=== PATIENT | female | born 1935 | race Caucasian/White ===

== ENCOUNTER → 2017-09-07 | Outpatient (CLI) | payer BC ==
[~2017-09-07] MED LIST: ALEN70TA4 PO; ALUMSUS2 PO; ASPI81TA28 PO; BTP80 PO; CALC-20 PO; CLC/300 PO; CLR10 PO; CMD/25 PO; CRS10 PO; CZR50 PO; DIPH25CA5 PO; EPP3/2 IM; FERR325T5 PO; FURO-85 PO; MAGN400T6 PO; METO25TA56 PO; MULTCHW PO; NSNN50 NAE; NTRGSL/4 UT; OMEP20CA9 PO; SENNTAB23 PO; SPIR25TA89 PO; SPR25 PO
--- NOTE | 2017-09-07 15:30 | MAMMOGRAPHY REPORT ---
BILATERAL DIGITAL SCREENING MAMMOGRAM WITH CAD: 09/07/2017 CLINICAL HISTORY: Routine screening. Patient has no complaints. TECHNIQUE: Current study was also evaluated with a Computer Aided Detection (CAD) system. Bilateral CC and MLO views were obtained. COMPARISON: Comparison is made to exams dated: 09/06/2016 mammogram, 09/03/2015 mammogram, 4 mammogram, 07/24/2013 mammogram, 07/23/2012 mammogram, and 07/21/2011 mammogram - [facility]. BREAST COMPOSITION: There are scattered areas of fibroglandular density in both breasts. FINDINGS: No suspicious masses, calcifications, or areas of architectural distortion are noted in ei ther breast. There has been no significant interval change compared to prior exams. Scattered bilater al benign-appearing calcifications are not significantly changed. A linear scar denotes a scar on th e right medial breast. IMPRESSION: ACR BI-RADS CATEGORY 2: BENIGN There is no mammographic evidence of malignancy. A 1 year screening mammogram is recommended. The pa tient will receive written notification of the results. Approximately 10% of breast cancers are not detected with mammography. A negative mammographic report should not delay biopsy if a clinically suggestive mass is present. Veronika Omalley M.D. /:09/07/2017 10:28:17 Iron Handler: [facility])(Aimee), [facility] letter sent: Normal 1/2 BI-RADS Code: ACR BI-RADS Category 2: Benign
== END | disposition home or self-care (01) ==
LOC: C.MAMM 10:04
PROVIDERS: ATTEND Internal Medicine
DX: Z12.31 Encounter for screening mammogram for malignant neoplasm of breast (principal)

== ENCOUNTER → 2017-12-12 | Outpatient (CLI) | payer BC ==
--- NOTE | 2017-12-13 07:49 | PAP/PSG TECHNICIAN REPORT ---
[facility] Statement Clerk Polysomnogram Report Study name: None Report date: 12/13/2017 Study date: 12/12/2017 Referring Physician: Dr. Belkis Acuna M.D. Name: ANA ROSARICKIDean SARAH SPEARS Interpreting Physician: Toño Medellin M.D. Date of : 1935 Statement Clerk: Nina Winkler PSGT. Sex: Female Age: 82 StudyType: PSG Weight: 188 lbs Height: 82 years, Height 5' 0" Neck Circum:13 inches BMI: 36.71 Medications: Lasix 40 mg, Lopressor 100 mg, Cozaar 25 mg, Mycolog, Betapace 80 mg, Nasonex 50 mcg, Crestor 10 mg, Clindamycin HCI 300 mg, Coumadin 2.5 mg, Atrovent, Claritin 10 mg, Ativan 0.5 mg, Nitrostat 0.4 mg, Epipen, Ferrous Sulfate, Mag-Oxide 400 mg, Caltrate 600+G174-473 mg, Stool softner, Benadryl 25 mg, Aspirin 81 mg, Centrum Silver. Patient History 82-year-old female presents to sleep lab for a split night study. She states that her bedtime is 12-1:00 am, wakes 7-8:00 am.She states that she is still grieving over the loss of her and that she had gotten into poor sleep hygiene habits. Now that she has learned to shut the television off as well as the electronics she is sleeping better.ESS= 6, Neck = 13 inches. Parameters Monitored NPSG: E1-M2, E2-M1, Fp1-M2, Fp2-M1, F3-M2, F4-M2, F4-M1, C3-M2, C4-M2, C4-M1, O1-M2, O2-M2, O2-M1, T3-M2, T4-M1, P3-M2, P4-M1, CHIN1, CHIN2, HR, EKG, Legs, PFLOW, SNOR, FLOW, CFLOW, Tidal Volume, THOR, ABDO, SpO2, PLTH, CPRESS, ETCO2 Wave, ETCO2, pH Sleep Architecture Sleep Stages Time at Lights Off 9:55:02 PM STAGES Time (min.) TST (%) Time at Lights On 5:40:32 AM Wake 206.0 -- Total Recording Time (TRT) 467.00 min. N1 7.5 3 Total Sleep Period (TSP) 423.0 min. N2 208.0 80 Total Sleep Time (TST) 259.0min. N3 0.0 0 Awake Time 208.0 min. REM 43.5 17 Wake after Sleep Onset 171.0 min. Sleep Efficiency (SE) 56 % Sleep Onset Latency ([place]) 35.5 min. Number of Stage 1 Shifts None Awakenings 11 Stage Changes 32 Number of REM periods 3 REM 43.5 17 REM Latency 83.0 min. NREM 215.5 83 Body Position Analysis Supine Right Left Side Prone Vertical Total Sleep Time (min.) 63.4 48.9 175.1 224.00 0.0 0.0 Total Sleep Time (%) 14% 19% 68% 86 0% N/A% Total Sleep Time REM (min.) 32.0 0.0 11.5 None 0.0 0.0 Total Sleep Time NREM (min.) 3.0 48.9 163.6 None 0.0 0.0 Intermittent Wake (min.) 28.4 42.5 135.1 None 0.0 0.0 Total Sleep Period (%) 10% None None None None None Arousals Myoclonus (PLM) * Events Count Index Events Count Index Spontaneous 41 9 Events Awake (PLMW) 5 1.5 Respiratory 1 0.2 Events Asleep w/ Arousal (PLMA) 19 4.4 PLM 19 4 Events Asleep w/o Arousal (PLMS) 99 22.9 Snoring 2 0 Total Asleep 118 27.3 Total 63 15 Total 123 16 Respiratory Analysis * CA OA MA CH H RERA Total Count 0 0 1 0 45 0 46 Index 0.0 0.0 0.2 0 10.4 0 10.7 Mean Duration 0.0 0.0 17.8 0.00 20.2 0.0 20.1 Longest Duration 0.0 0.0 17.8 0.00 17.8 0.0 41.5 Respiratory Event Summary Total Supine ~Supine Right Left Prone REM NREM Apneas Count 1 0 1 0 1 N/A 0 1 Index 0.2 0 0 0.0 0.3 N/A 0 0 Hypopneas (4% Desat) Count 45 22 23 2 21 N/A 31 14 Index 10.4 37.7 6 2.5 7.2 N/A 42.8 3.9 Apneas & All Hypopneas Count 46 22 24 2 22 N/A 31 15 Index 10.7 38 6 2 8 N/A 42.8 4.2 Respiratory Events (Public Health Advisor+All Hyp+RERA) Count 46 22 24 2 22 N/A 31 15 Index 10.7 38 6 2.5 7.5 N/A 42.8 4.2 Respiratory Related Arousal Count 1 22 1 0 1 N/A 0 1 Index 0.2 0 0 0 0 N/A 0 0 Snoring Analysis Supine Right Left Prone REM NREM Total Snore duration 1.7 min Snores count 9 4 17 N/A 10 20 30 Snore mean duration 3.5 Sec Snores index 15 5 6 N/A 13.8 5.6 6.9 TST with snoring (%) 0.7% Desaturation Event Summary: Minimum %SpO2 Event Count Mean/Min/Max Duration(sec.) Desaturation Index % Time In Bed > 90 40 31.6 / 9.0 / 57.5 5.7 92.6 86 - 90 10 17.4 / 6.8 / 33.0 35.9 3.7 81 - 85 1 6.8 / 6.8 / 6.8 4.7 2.8 76 - 80 0 N/A 0.0 0.9 71 - 75 0 N/A 0.0 0.0 66 - 70 0 N/A 0.0 0.0 61 - 65 0 N/A 0.0 0.0 56 - 60 0 N/A 0.0 0.0 51 - 55 0 N/A 0.0 0.0 < 50 0 N/A 0.0 0.0 Total REM NREM Awake <50% 0.0 min. 0.0 min. 0.0 min. 0.0 min. 51 - 60% 0.0 min. 0.0 min. 0.0 min. 0.0 min. 61 - 70% 0.0 min. 0.0 min. 0.0 min. 0.0 min. 71 - 80% 4.1 min. 3.9 min. 0.0 min. 0.2 min. 81 - 90% 29.4 min. 19.6 min. 6.0 min. 3.9 min. 91 - 100% 419.5 min. 20.0 min. 209.5 min. 190.0 min. Average 93 89 94 94 Minimum SpO2 75 75 82 80 Desaturation Event Index 6.1 45.5 3.9 0.0 # Desat. Events below 89% 33 30 3 0 Time(%) with Saturation below 89% 5.2 4.5 0.4 0.3 Time(min.) with Saturation below 89% 23.6 20.5 1.7 1.3 Time (mins) REM (mins) NREM (mins) % of TST SpO2 Below 90% 43 32 N11 9.4 SpO2 Below 88% 18 0 0 8 Heart Rate Analysis Min (bpm) Max (bpm) Average (bpm) Awake 59 127 63 NREM 57 83 61 REM 58 73 61 Overall 57 83 61 Supplemental O2 Values Minimum O2 level: None Value Start Time End Time Statement Clerk Comments PSG Study Mrs. Cruz slept in the right, left, supine and prone positions. No cardiac arrhythmia or PLM's noted. No bruxism noted. Snoring was noted and scored as a 1 on a scale of 1 through 5. (0=no snoring, 5=snoring loud enough to be heard through a closed door or down the [address] way) awoke to use the restroom one time during the night. stated, I did not sleep as well as I do when I am in my own bed. The final report will be interpreted and signed by a sleep physician. The completed physician report will then be placed in the patient medical record Patient woke and said she needed to get up that her legs were "restless", she walked and went to restroom stretched her legs and went back to bed. Patient couldn't be split. Therapy (cm H2O) 0 TIB (min.) 465.0 TST (min.) 259.0 Sleep Onset (min.) 35.5 REM Onset From Sleep (min.) 83.0 Sleep Efficiency % 56 Wakefulness (%) 44 Wakefulness (min.) 208.0 NREM 1 (%) 3 NREM 1 (min.) 7.5 NREM 2 (%) 80 NREM 2 (min.) 208.0 NREM 3 (%) 0 NREM 3 (min.) 0.0 REM (%) 17 REM (min.) 43.5 # Arousals 63 Arousal Index 15 # Snore 30 Snore Index 6.9 AHI 10.7 AHI Supine 38 AHI Non-Supine 6 NREM AHI 4.2 REM AHI 42.8 RDI 10.7 # Obstructive Apnea 0 # Central Apnea 0 # Mixed Apnea 1 # Hypopneas 45 RERAs 0 Total Respiratory Events 47 Time Below SpO2 89% (min.) 22.3 Mean NREM SpO2 (%) 94 Mean REM SpO2 (%) 89 Mean Sleep SpO2 (%) 93 Min NREM SpO2 (%) 82 Min REM SpO2 (%) 75 Position Supine (min.) 63.4 Position Non-supine (min.) 224.0 LM Index Sleep 27.3 LM Index NREM 30.3 LM Index REM 12.4 Mean Heart Rate (bpm) 61 Min Heart Rate (bpm) 57
--- NOTE | 2017-12-14 08:05 | POLYSOMNOGRAPH REPORT ---
CLINICAL DATA: An 82-year-old female with a BMI of [address] Acuna. The patient states she goes to bed between 12:00 a.m. and 1:00 a.m. awakes at 7:00 to 8:00 a.m. She is still grieving over the loss of her and has had poor sleep hygiene habits. She is sleeping better since she is now turning off the television and the electronics at night. She is referred for a sleep study. SLEEP ARCHITECTURE: Total sleep period was 423 minutes. Total sleep time was 259 minutes divided between 215.5 minutes of non-REM sleep and 43.5 minutes of REM sleep. Sleep onset latency was delayed at 35.5 minutes. REM latency was 83 minutes. Sleep efficiency was reduced to 56%. Wake after sleep onset was elevated at 171 minutes. Sleep consisted of stage N1 3%, stage N2 80% and REM 17%. AROUSAL DATA: 63 arousals were recorded for an index of 15 per hour. 41 were spontaneous. 19 were due to PLMs. PLM DATA: Mildly elevated limb movements during sleep were noted. There were 118 limb movements during sleep noted for an index of 27.3 per hour with arousal index of 4.4 per hour. RESPIRATORY DATA: Mild sleep apnea was documented. The AHI was 10.7. There was 1 mixed apneic episode, 17.8 seconds in duration. There were 45 hypopneic episodes with a mean duration of 20.2 seconds. OXIMETRY DATA: Nocturnal hypoxemia was seen. Oxygen roz was 75%. Mean saturation was 92%. Time below 88% was 18 minutes. EKG: Heart rates ranged from 57-83 beats per minute. No arrhythmias were noted. MOLDING TECHNICIAN'S COMMENTS: The patient slept in the right, left, supine, and prone positions. Snoring was mild, rated 1 on a scale of 1 through 5. The health and safety technician noted that the patient awoke and had to get out of bed because her legs were restless. She walked, went to the restroom, stretched her legs and went back to bed. She did not achieve split night criteria soon enough to have this be a split night study. IMPRESSION: 1. Mild sleep apnea/hypopnea with an AHI of 10.7. 2. Mildly elevated limb movements during sleep consistent with periodic limb movement disorder. RECOMMENDATIONS: The patient may benefit from a repeat sleep study with CPAP, use of auto CPAP, or use of an oral appliance. Clinical correlation is needed. MTDD
== END | disposition home or self-care (01) ==
LOC: C.NEUR 20:00
PROVIDERS: ATTEND Internal Medicine
DX: G47.33 Obstructive sleep apnea (adult) (pediatric) (principal)

== ENCOUNTER 2021-02-12 20:59 | Observation (INO) ==
[2021-02-12 23:34] LABS: Basophils # (auto) 0.04 K/uL (0-0.2); Basophils % (auto) 0.5 %; Eosinophils # (auto) 0.06 K/uL (0-0.5); Eosinophils % (auto) 0.8 %; Hematocrit (blood only) 29.6 % (37-47); Hemoglobin 9.2 g/dL (12.0-16.0); Immature Granulocytes # (auto) 0.01 K/uL (0.00-0.02); Immature Granulocytes % (auto) 0.1 %; Lymphocytes # (auto) 0.83 K/uL (1.2-3.4); Lymphocytes % (auto) 10.9 %; Mean Corpuscular Hemoglobin 30.9 pg (25-34); Mean Corpuscular Hgb Conc 31.1 g/dL (32-36); Mean Corpuscular Volume 99.3 fL (80-100); Mean Platelet Volume 11.4 fL (7.4-10.4); Monocytes # (auto) 0.71 K/uL (0.11-0.59); Monocytes % (auto) 9.3 %; Neutrophils # (auto) 5.97 K/uL (1.4-6.5); Neutrophils % (auto) 78.4 %; Platelet Count 389 K/uL (130-400); RDW Coefficient of Variation 14.4 % (11.5-14.5); RDW Standard Deviation 51.8 fL (36.4-46.3); Red Blood Count 2.98 M/uL (4.2-5.4); White Blood Count 7.62 K/uL (4.8-10.8)
[2021-02-12 23:36] LABS: Appearance Urine Clear (Clear); Bacteria Urine Automated 2+ (Negative); Bilirubin Urine Negative (Negative); Blood Urine Negative (Negative); Cast Urine Automated 0 /lpf (0-5); Color Urine Yellow; Epithelial Cell Urine Auto 0-5 /lpf (0-5); Glucose Urine UA Negative (Negative); Ketones Urine Negative (Negative); Leukocyte Esterase Urine 2+ (Negative); Nitrite Urine Negative (Negative); Protein Urine Negative (Negative); RBC Urine Automated 0-4 /hpf (0-4); Specific Gravity Urine 1.009 (1.000-1.030); Urobilinogen Urine Negative (Negative)
[2021-02-12 23:52] LABS: Alanine Aminotransferase 27 U/L (12-78); Albumin Level 3.7 gm/dl (3.4-5.0); Aspartate Aminotransferase 24 U/L (15-37); BUN Creatinine Ratio 28.2 (10-20); Blood Urea Nitrogen 36 mg/dl (7-18); Calcium 9.4 mg/dl (8.5-10.1); Carbon Dioxide 31 mmol/L (21-32); Chloride 103 mmol/L (98-107); Creatinine Clr Calc Pharmacy 31.2 ml/min; Est GFR (African American) 44.9; Est GFR (Non-African American) 38.7; Glucose 109 mg/dl (70-99); Magnesium 2.2 mg/dl (1.8-2.4); Potassium 3.6 mmol/L (3.5-5.1); Sodium 142 mmol/L (136-145)
[2021-02-13 00:03] LABS: Albumin Globulin Ratio 0.8 (0.9-2); Alkaline Phosphatase 64 U/L (45-117); Bilirubin,Total 0.3 mg/dl (0.2-1); Creatine Kinase 124 U/L (26-192); Globulin 4.5 gm/dl (2.5-4.0); Total Protein 8.2 gm/dl (6.4-8.2); Troponin I < 0.015 ng/ml (0-0.045)
[2021-02-13 00:15] LABS: T4 Free Thyroxine 1.33 ng/dl (0.8-1.6)
[2021-02-13 00:38] LABS: Partial Thromboplastin Ratio 1.1; Partial Thromboplastin Time 29.4 Seconds (21.0-31.0)
[2021-02-13] MEDS ORDERED: CEFEPIME 2,000 MG/20 ML VIAL IV STA (00:53)
[2021-02-13 02:08] LABS: Influenza A virus by PCR Negative (Neg); Influenza B virus by PCR Negative (Neg); RSV by PCR Negative (Neg); SARS CoV2 RNA(COVID-19) InHosp NEGATIVE (Negative)
--- NOTE | 2021-02-13 02:48 | Emergency Department Note ---
General (ED) Blank Date of Service February 13, 2021 This patient comes in after having weakness. When I examined her, she is sitting upright in bed is well-appearing andshe has normal motor and sensation in the legs. Her urinalysis does suggest a UTI. She is anemic with a hemoglobin in the 9 range. She tells me that she has had issues with vaginal bleeding but has had none recently after they treated for UTI. She does feel weak and will be admitted for antibiotics and further treatment and evaluation.
--- NOTE | 2021-02-13 03:02 | Emergency Department Note ---
History of Present Illness General Chief complaint: Weakness Stated complaint: RESTLESS LEGS, WEAKNESS Time Seen by Provider: 02/12/21 23:08 History of Present Illness This 85-year-old presents to the ER complaining of increasing weakness with anemia Location: Generalized Quality: Weak Severity: Moderate Duration: Past week Timing: Started a week ago Context: Patient was concerned and came in Modifying factors: better with rest; worse with activity Patient denies chest pain, fever, chills, flulike illness, abdominal pain. She is tolerating p.o. fluids and food. She lives at home by herself. Home Medications Medication Instructions Recorded Confirmed Type Ca carb-D3-mag [id number] 1 tab PO BID 01/24/21 02/12/21 History [Caltrate + D3 Plus Minerals] aspirin [Aspir-81] 81 mg PO DAILY 01/24/21 02/12/21 History camphor-menthol [Biofreeze] 1 applic TOPICAL BID PRN 01/24/21 02/12/21 History cranberry fruit concentrate [Azo 250 mg PO TID PRN 01/24/21 02/12/21 History Cranberry] diphenhydramine HCl [Benadryl] 25 mg PO Q6H PRN 01/24/21 02/12/21 History docusate sodium [Colace] 300 mg PO DAILY 01/24/21 02/12/21 History epinephrine [EpiPen] 0.3 mg IM UD PRN 01/24/21 02/12/21 History ferrous sulfate [iron] 325 mg PO HS 01/24/21 02/12/21 History furosemide [Lasix] 80 mg PO 3XWK PRN 01/24/21 02/12/21 History furosemide [Lasix] 80 mg PO DAILY 01/24/21 02/12/21 History hydroxyurea 500 mg PO 3XWK 01/24/21 02/12/21 History loratadine 10 mg PO HS 01/24/21 02/12/21 History lorazepam 0.5 mg PO TID PRN 01/24/21 02/12/21 History losartan 25 mg PO DAILY 01/24/21 02/12/21 History magnesium oxide 400 mg PO DAILY 01/24/21 02/12/21 History metoprolol succinate 100 mg PO BID 01/24/21 02/12/21 History mometasone [Nasonex] 2 spray INTRANASAL DAILY 01/24/21 02/12/21 History cxwqydtrnhwr-azvsqhzg-lpqowy 1 tab PO DAILY 01/24/21 02/12/21 History [Centrum Silver] nitroglycerin 0.4 mg SUBLINGUAL UD PRN 01/24/21 02/12/21 History omeprazole 20 mg PO DAILY 01/24/21 02/12/21 History rosuvastatin [Crestor] 10 mg PO HS 01/24/21 02/12/21 History sotalol 80 mg PO BID 01/24/21 02/12/21 History spironolactone 12.5 mg PO DAILY 01/24/21 02/12/21 History warfarin 1.25 - 2.5 mg PO UD 01/24/21 02/12/21 History hydroxyzine pamoate [Vistaril] 25 mg PO Q8H PRN 5 Days #15 cap 02/10/21 02/12/21 Rx methylprednisolone See Rx Instructions .ROUTE 02/10/21 02/12/21 Rx .COMPLEX #21 ea duloxetine 20 mg PO QPM 02/12/21 02/12/21 History Allergies Allergy/AdvReac Type Severity Reaction Status Date / Time iodine Allergy Intermediate itching Verified 02/12/21 23:15 amiodarone Allergy Mild UNSURE Verified 02/12/21 23:15 etodolac Allergy Mild Unknown Verified 02/12/21 23:15 Sulfa (Sulfonamide Allergy Mild Unknown Verified 02/12/21 23:15 Antibiotics) Penicillins AdvReac Mild YEAST INF Verified 02/12/21 23:15 simvastatin AdvReac Unknown CAN'T Verified 02/12/21 23:15 REMEMBER Past Med/Surg History Medical History Abrasion of face AF (atrial fibrillation) (02/28/14) Angioedema (Unknown) Atrial fibrillation with rapid ventricular response CAD (coronary artery disease) of bypass graft (02/28/14) Carotid artery occlusion (Unknown) Chest pain (07/20/14) Chest pain Chronic ischemic heart disease (Unknown) Coronary artery bypass grafting (Unknown) "[facility] [place] April 2006 VARGHESE to LAD SVG's to diagonal, obtuse marginal, RCA " Dermatitis Fall Implantation of aortic valve prosthesis or synthetic device (Unknown) No pertinent family history Paroxysmal atrial fibrillation (Unknown) Placement of stent in coronary artery (Unknown) "RCA December 2006 " Replacement of aortic valve (Unknown) "[facility] [place] 2005 [place] " Stented coronary artery (Unknown) 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) Total abdominal hysterectomy with bilateral salpingo-oophorectomy (Unknown) Surgical History No pertinent past surgical history Family History Other No pertinent family history Social History Smoking Status: Never smoker Preferred Language: Greenlandic Communication Ability: Effective Visual Impairment: No Limitations Hearing Ability: Normal Feels Safe at Home: Yes Review of Systems A total of 10 systems reviewed and were otherwise negative Physical Exam Vital Signs Vital Signs - 24 hr 02/12/21 21:01 02/12/21 22:39 02/12/21 22:57 Temperature 36.8 C Temperature Source Temporal Artery Scan Pulse Rate 93 H 92 H Pulse Rate [Bilateral Apical] 75 Pulse Rate from SpO2 Sensor 86 Respiratory Rate 18 21 20 Respiratory Effort / Characteristics Non-Labored Spontaneous Respiratory Depth Normal Respiratory Pattern Regular Blood Pressure 146/74 H 180/97 H Blood Pressure [Left Arm] 180/97 H Blood Pressure Mean 98 124 Blood Pressure Mean [Left Arm] 124 Blood Pressure Position Sitting Pulse Oximetry 98 97 94 Oxygen Delivery Method Room Air Room Air Sepsis Recent Fever Within 48 Hours No Sepsis New/Unexplained Change in Mental Status No Sepsis Action Taken by Nursing No Action Required 02/13/21 00:26 02/13/21 01:14 02/13/21 01:30 Temperature Temperature Source Pulse Rate 71 85 75 Pulse Rate [Bilateral Apical] Pulse Rate from SpO2 Sensor 70 84 68 Respiratory Rate 17 24 21 Respiratory Effort / Characteristics Respiratory Depth Respiratory Pattern Blood Pressure 146/85 H 170/106 H 167/99 H Blood Pressure [Left Arm] Blood Pressure Mean 105 127 121 Blood Pressure Mean [Left Arm] Blood Pressure Position Pulse Oximetry 95 97 98 Oxygen Delivery Method Sepsis Recent Fever Within 48 Hours Sepsis New/Unexplained Change in Mental Status Sepsis Action Taken by Nursing VITALS: Vitals are noted on the nurse's note and reviewed by myself. Vital signs stable. GENERAL: Pleasant female, in no acute distress, nondiaphoretic, well-developed well-nourished. SKIN: Capillary reflex less than 2 seconds. HEENT: Normocephalic. PERRLA. EOMI. Nares patent. Mucous membranes moist. Neck is supple without nuchal rigidity. HEART: Regular rate and rhythm LUNGS: Clear to auscultation bilaterally without wheezes, rales or rhonchi. No retractions or accessory muscle use. ABDOMEN: Positive bowel sounds x 4. Normal tympanic percussion. Soft, nontender, without masses or organomegaly. Singh sign negative. No guarding or rebound tenderness. No CVA tenderness MUSCULOSKELETAL: No gross musculoskeletal defects. NEURO: Patient was alert and oriented to person place and time. No focal neurological deficits. Course Administered Medications Discontinued Medications Cefepime HCl (Maxipime) 2,000 mg in 20 mls @ 5 mls/min IV NOW STA; Protocol Stop: 02/13/21 00:56 Last Admin: 02/13/21 01:08 Dose: 5 mls/min Documented by: [id number] Medical Decision Making Medical Records Attestation: I reviewed the patient's medical records. Home Medications Current Medication List: was personally reviewed by me Laboratory Data Attestation: I reviewed the patient's lab results. Result diagrams: 02/12/21 22:50 02/12/21 22:50 Lab Results 02/12/21 02/12/21 02/12/21 Range/Units 22:50 22:50 23:15 WBC 7.62 (4.8-10.8) K/uL RBC 2.98 L (4.2-5.4) M/uL Hgb 9.2 L (12.0-16.0) g/dL Hct 29.6 L (37-47) % MCV 99.3 (80-100) fL MCH 30.9 (25-34) pg MCHC 31.1 L (32-36) g/dL RDW Std Deviation 51.8 H (36.4-46.3) fL RDW Coeff of Ge 14.4 (11.5-14.5) % Plt Count 389 (130-400) K/uL MPV 11.4 H (7.4-10.4) fL Immature Gran % (Auto) 0.1 % Neut % (Auto) 78.4 % Lymph % (Auto) 10.9 % [place] % (Auto) 9.3 % Eos % (Auto) 0.8 % Baso % (Auto) 0.5 % Neut # (Auto) 5.97 (1.4-6.5) K/uL Lymph # (Auto) 0.83 L (1.2-3.4) K/uL [place] # (Auto) 0.71 H (0.11-0.59) K/uL Eos # (Auto) 0.06 (0-0.5) K/uL Baso # (Auto) 0.04 (0-0.2) K/uL Immature Gran # (Auto) 0.01 (0.00-0.02) K/uL PT (9.0-12.0) Seconds INR (0.9-1.1) APTT (21.0-31.0) Seconds PTT Ratio Sodium 142 (136-145) mmol/L Potassium 3.6 (3.5-5.1) mmol/L Chloride 103 (98-107) mmol/L Carbon Dioxide 31 (21-32) mmol/L Anion Gap 8.0 (3-11) BUN 36 H (7-18) mg/dl Creatinine 1.27 H (0.6-1.2) mg/dl Est Cr Clr Drug Dosing 31.2 ml/min Est GFR ( Amer) 44.9 Est GFR (Non-Af Amer) 38.7 BUN/Creatinine Ratio 28.2 H (10-20) Glucose 109 H (70-99) mg/dl Calcium 9.4 (8.5-10.1) mg/dl Magnesium 2.2 (1.8-2.4) mg/dl Total Bilirubin 0.3 (0.2-1) mg/dl AST 24 (15-37) U/L ALT 27 (12-78) U/L Alkaline Phosphatase 64 (45-117) U/L Total Creatine Kinase 124 (26-192) U/L Troponin I < 0.015 (0-0.045) ng/ml Total Protein 8.2 (6.4-8.2) gm/dl Albumin 3.7 (3.4-5.0) gm/dl Globulin 4.5 H (2.5-4.0) gm/dl Albumin/Globulin Ratio 0.8 L (0.9-2) TSH 6.350 H (0.300-4.500) uIu/ml Free T4 1.33 (0.8-1.6) ng/dl Urine Color Yellow Urine Appearance Clear (Clear) Urine pH 7.0 (4.5-7.5) Ur Specific Pant[place] Burn 1.009 (1.000-1.030) Urine Protein Negative (Negative) Urine Glucose (UA) Negative (Negative) Urine Ketones Negative (Negative) Urine Blood Negative (Negative) Urine Nitrite Negative (Negative) Urine Bilirubin Negative (Negative) Urine Urobilinogen Negative (Negative) Ur Leukocyte Esterase 2+ H (Negative) Urine WBC (Auto) 10-30 H (0-5) /hpf Urine RBC (Auto) 0-4 (0-4) /hpf U Hyaline Cast (Auto) 0 (0-5) /lpf U Epithel Cells (Auto) 0-5 (0-5) /lpf Urine Bacteria (Auto) 2+ H (Negative) COVID-19 Eval Order SARS-CoV-2 (PCR) (Negative) Influenza Type A (PCR) (Neg) Influenza Type B (PCR) (Neg) RSV (RT-PCR) (Neg) 02/13/21 02/13/21 02/13/21 Range/Units 00:08 01:11 01:11 WBC (4.8-10.8) K/uL RBC (4.2-5.4) M/uL Hgb (12.0-16.0) g/dL Hct (37-47) % MCV (80-100) fL MCH (25-34) pg MCHC (32-36) g/dL RDW Std Deviation (36.4-46.3) fL RDW Coeff of Ge (11.5-14.5) % Plt Count (130-400) K/uL MPV (7.4-10.4) fL Immature Gran % (Auto) % Neut % (Auto) % Lymph % (Auto) % [place] % (Auto) % Eos % (Auto) % Baso % (Auto) % Neut # (Auto) (1.4-6.5) K/uL Lymph # (Auto) (1.2-3.4) K/uL [place] # (Auto) (0.11-0.59) K/uL Eos # (Auto) (0-0.5) K/uL Baso # (Auto) (0-0.2) K/uL Immature Gran # (Auto) (0.00-0.02) K/uL PT 28.0 H (9.0-12.0) Seconds INR 3.0 H (0.9-1.1) APTT 29.4 (21.0-31.0) Seconds PTT Ratio 1.1 Sodium (136-145) mmol/L Potassium (3.5-5.1) mmol/L Chloride (98-107) mmol/L Carbon Dioxide (21-32) mmol/L Anion Gap (3-11) BUN (7-18) mg/dl Creatinine (0.6-1.2) mg/dl Est Cr Clr Drug Dosing ml/min Est GFR ( Amer) Est GFR (Non-Af Amer) BUN/Creatinine Ratio (10-20) Glucose (70-99) mg/dl Calcium (8.5-10.1) mg/dl Magnesium (1.8-2.4) mg/dl Total Bilirubin (0.2-1) mg/dl AST (15-37) U/L ALT (12-78) U/L Alkaline Phosphatase (45-117) U/L Total Creatine Kinase (26-192) U/L Troponin I (0-0.045) ng/ml Total Protein (6.4-8.2) gm/dl Albumin (3.4-5.0) gm/dl Globulin (2.5-4.0) gm/dl Albumin/Globulin Ratio (0.9-2) TSH (0.300-4.500) uIu/ml Free T4 (0.8-1.6) ng/dl Urine Color Urine Appearance (Clear) Urine pH (4.5-7.5) Ur Specific [place] (1.000-1.030) Urine Protein (Negative) Urine Glucose (UA) (Negative) Urine Ketones (Negative) Urine Blood (Negative) Urine Nitrite (Negative) Urine Bilirubin (Negative) Urine Urobilinogen (Negative) Ur Leukocyte Esterase (Negative) Urine WBC (Auto) (0-5) /hpf Urine RBC (Auto) (0-4) /hpf U Hyaline Cast (Auto) (0-5) /lpf U Epithel Cells (Auto) (0-5) /lpf Urine Bacteria (Auto) (Negative) COVID-19 Eval Order CovFluRsv at [facility] SARS-CoV-2 (PCR) NEGATIVE (Negative) Influenza Type A (PCR) Negative (Neg) Influenza Type B (PCR) Negative (Neg) RSV (RT-PCR) Negative (Neg) Imaging Data Attestation: I personally reviewed and interpreted this imaging study as follows: MDM Narrative Prior records/ancillary studies reviewed and summarized above. Nursing notes reviewed. Additional history obtained from family. The patient's history was concerning for weakness. Differential diagnosis: Etiologies such as metabolic, infection, hypo/hyperglycemia, electrolyte abnormalities, cardiac sources, intracerebral event, toxicologic, neurologic, as well as others were entertained. Physical examination: As above. ER treatment provided: IV Lock An order was placed for continuous cardiac monitoring. The monitor shows a rate of 60-100 with a sinus rhythm. Cefepime On reassessment the patient felt better. Diagnostics interpretation by me: ECG: Ordered for weakness EKG: Atrial paced, no acute ST-T wave changes, rate of 85. Impression atrial paced with a right bundle branch block interpreted by myself The labs revealed urine concerning for infection and sent for culture. Prior urine culture was reviewed in the [facility] system and patient is sensitive to cefepime Stable anemia per chart review Imaging studies: Chest x-ray with no acute consolidation, pneumothorax or free air per my interpretation Consultation: A consultation was placed with the hospitalist. The case was discussed and diagnostics were reviewed. The patient was evaluated in the ER for further treatment. Exam and history seem consistent with UTI and increasing weakness. Patient does not feel comfortable going home. Medicine was consulted. She started antibiot ics. She will be evaluated for possible admission. By the evaluation outlined above emergent etiologies such as electrolyte abnormalities, cardiac sources, intracerebral event, toxologic, neurologic, abnormalities blood glucose, metabolic, as well as others were deemed relatively unlikely. The pt informed about the findings as listed above. All questions were answered and pleased with the treatment. The chart was completed utilizing [email or web address] voice recognition software. Grammatical errors, random word insertions, pronoun errors, and incomplete sentences are an occassional consequence of this system due to software limitations, ambient noise, and hardware issues. Any formal questions or concerns about the content, text, or information contained within the body of this dictation should be directly addressed to the physician fitness assistant for clarification. Impression & Plan Acute UTI (urinary tract infection), Anemia, Weakness Discharge Plan Visit Data Chief Complaint: Weakness Stated Complaint: RESTLESS LEGS, WEAKNESS ED Provider: Higinio Strong ED Midlevel Provider: Wilda Gutierrez Discharge Problem: Acute UTI (urinary tract infection), Anemia, Weakness Patient Disposition: Being Evaluated by Hospitalist Condition: Good Forms Stand Alone Forms: [facility] Mir Vracha Prescriptions Prescriptions: No Action methylprednisolone 4 mg tablets,dose pack See Rx Instructions .ROUTE .COMPLEX Qty: 21 RF: 0 hydroxyzine pamoate [Vistaril] 25 mg capsule 25 mg PO Q8H PRN (Reason: anxiety) 5 Days Qty: 15 RF: 0 duloxetine 20 mg capsule,delayed release(DR/EC) 20 mg PO QPM RF: 0 hydroxyurea 500 mg capsule 500 mg PO 3XWK RF: 0 sotalol 80 mg tablet 80 mg PO BID RF: 0 metoprolol succinate 100 mg tablet extended release 24 hr 100 mg PO BID RF: 0 warfarin 2.5 mg tablet 1.25 - 2.5 mg PO UD RF: 0 aspirin [Aspir-81] 81 mg Tablet,Delayed Release (Dr/Ec) 81 mg PO DAILY RF: 0 spironolactone 25 mg tablet 12.5 mg PO DAILY RF: 0 lorazepam 0.5 mg tablet 0.5 mg PO TID PRN (Reason: Anxiety) RF: 0 furosemide [Lasix] 80 mg Tablet 80 mg PO 3XWK PRN (Reason: Edema) RF: 0 furosemide [Lasix] 80 mg Tablet 80 mg PO DAILY RF: 0 diphenhydramine HCl [Benadryl] 25 mg Capsule 25 mg PO Q6H PRN (Reason: allergies) RF: 0 ferrous sulfate [iron] 325 mg (65 mg iron) Tablet 325 mg PO HS RF: 0 losartan 25 mg tablet 25 mg PO DAILY RF: 0 nitroglycerin 0.4 mg tablet, sublingual 0.4 mg sublingual UD PRN (Reason: Chest Pain) RF: 0 docusate sodium [Colace] 100 mg Capsule 300 mg PO DAILY RF: 0 mometasone [Nasonex] 50 mcg/actuation [place],Non-Aerosol 2 spray INTRANASAL DAILY RF: 0 epinephrine [EpiPen] 0.3 mg/0.3 mL Auto-Injector 0.3 mg IM UD PRN (Reason: Allergic Reaction) RF: 0 loratadine 10 mg Tablet 10 mg PO HS RF: 0 Centrum Silver Tablet 1 tab PO DAILY RF: 0 rosuvastatin [Crestor] 10 mg Tablet 10 mg PO HS RF: 0 omeprazole 20 mg Tablet,Delayed Release (Dr/Ec) 20 mg PO DAILY RF: 0 Biofreeze 0.2-3.5 % Gel 1 applic TOPICAL BID PRN (Reason: Pain) RF: 0 Azo Cranberry 250 mg Tablet,Chewable 250 mg PO TID PRN (Reason: BLADDER PAIN) RF: 0 Caltrate + D3 Plus Minerals 300 mg-800 unit -25 mg-0.5 mg Tablet 1 tab PO BID RF: 0 magnesium oxide 400 mg magnesium Tablet 400 mg PO DAILY RF: 0 Referrals Referrals: Regan Ceja DO [Primary Care Provider] -
[2021-02-13] MEDS ORDERED: PREGABALIN 50 MG CAP PO STA (03:25)
[2021-02-13] MEDS ORDERED: LORazepam 0.25 MG/0.5 ML VIAL IV STA (04:51)
[2021-02-13] MEDS ORDERED: LORazepam 2 MG/4 ML VIAL ONE (04:59)
[2021-02-13 06:23] LABS: Estimated Average Glucose 108 mg/dl; Hemoglobin A1C 5.4 % (4.5-5.6)
--- NOTE | 2021-02-13 06:43 | History & Physical Report ---
Date of Service February 13, 2021 Assessment & Plan (1) Generalized weakness: Multifactorial : Complicated UTI, no sepsis for now (history ESBL E. coli UTI) Symptomatic anemia(new baseline hemoglobin of 9-10 since December 2020) possibly from prior Hydrea Rx for essential thrombocythemia as per patient; stool FOBT at the ER was negative Debilitating RLS symptoms ARF on CRI secondary to illness Hypertension, elevated secondary to discomfort and anxiety chronic diastolic heart failure (EF 55 to 59%, TTE 2019), patient on the dry side SSS sp PPM on Coumadin, paced rhythm, INR therapeutic CAD sp CABG/stenting/hx PVD history of bovine AVR hyperlipidemia on statin Rx DM2 diet-controlled, well-controlled as of outpatient hemoglobin A1c of 5.8 2016 Medical telemetry given elevated BP CS, Ertapenem for now Transfuse 1 unit packed RBC given symptomatic anemia Lyrica trial for RLS, stop Cymbalta Consider Neurology consult for distressing RLS if without response Monitor creatinine response to IVF, hold home diuretic, losartan for now until creatinine at baseline Basal insulin, ISS BG goal 1 10-1 40, update hemoglobin A1c PT OT eval DVT prophylaxis. Coumadin INR goal between 2 and 3 Full code Text document was generated using [employer] voice recognition software. It may contain grammatical or spelling errors. Kindly contact undersigned for clarification of any documentation item in question. Admission and Anticipated Discharge Date Admission Date: February 13, 2021 History of Present Illness Chief Complaint: Worsening weakness Primary Care Provider: Regan Ceja DO History obtained from patient and records. Medical history significant for chronic diastolic heart failure (EF 55 to 59%, TTE 2019), SSS sp PPM on Coumadin, CAD sp CABG/stenting, hx PVD, history of bovine AVR, HTN, hyperlipidemia, mild GAVIN (CPAP intolerance as per records), DM2 diet- controlled, CRI (baseline creatinine 1.1), subacute anemia (new baseline hemoglobin of 9-10 since December 2020), essential thrombocythemia as per records, GERD, restless leg syndrome. Last confinement June 2014 for chest pain attributed to dyspepsia. Patient complaining of restless legs complaints since September 2020. Initially with back pain complaints without recollection of trauma. Lumbar spine x-ray from ER visit 4 months ago showed degenerative change. No acute fractures. Worsening shortness of breath on exertion the last month. Patient denies cough symptoms. Outpatient hemoglobin noted to be 9-10. Dark stools attributed by patient to iron intake. 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 Distressing restless leg symptoms in the last month resulting in 2 ER visits this month. PCP stopped Neurontin Rx due to lethargy symptoms on recent outpatient visit 4 days ago. Cymbalta initiated for restless legs which is not helping at all as per patient. Patient noted worsening weakness, fatigue, intractable restless leg symptoms the last few days. No cough symptoms. Patient denies chest pain. Usual shortness of breath on exertion. Patient denies abdominal pain, dysuria symptoms. Patient given cefepime at the ER for possible UTI. MEDICAL HISTORY: As above. SURGICAL HISTORY: History of coronary artery bypass graft, Total abdominal hysterectomy, bilateral salpingo-oophorectomy, bladder/urethra surgery, PPM for sinus node dysfunction, knee surgery, BTL, prosthetic aortic valve FAMILY HISTORY: Hypertension. Diabetes. Stroke. PERSONAL/ SOCIAL HISTORY: Nonsmoker. No chronic intake of alcoholic beverage. She is a retired [employer] employee. Allergies Allergy/AdvReac Type Severity Reaction Status Date / Time iodine Allergy Intermediate itching Verified 02/12/21 23:15 amiodarone Allergy Mild UNSURE Verified 02/12/21 23:15 etodolac Allergy Mild Unknown Verified 02/12/21 23:15 Sulfa (Sulfonamide Allergy Mild Unknown Verified 02/12/21 23:15 Antibiotics) gabapentin AdvReac Mild sedation Verified 02/13/21 06:58 Penicillins AdvReac Mild YEAST INF Verified 02/12/21 23:15 simvastatin AdvReac Unknown CAN'T Verified 02/12/21 23:15 REMEMBER Home Medications Medication Instructions Recorded Confirmed Type Ca carb-D3-mag [id number] 1 tab PO BID 01/24/21 02/12/21 History [Caltrate + D3 Plus Minerals] aspirin [Aspir-81] 81 mg PO DAILY 01/24/21 02/12/21 History camphor-menthol [Biofreeze] 1 applic TOPICAL BID PRN 01/24/21 02/12/21 History cranberry fruit concentrate [Azo 250 mg PO TID PRN 01/24/21 02/12/21 History Cranberry] diphenhydramine HCl [Benadryl] 25 mg PO Q6H PRN 01/24/21 02/12/21 History docusate sodium [Colace] 300 mg PO DAILY 01/24/21 02/12/21 History epinephrine [EpiPen] 0.3 mg IM UD PRN 01/24/21 02/12/21 History ferrous sulfate [iron] 325 mg PO HS 01/24/21 02/12/21 History furosemide [Lasix] 80 mg PO 3XWK PRN 01/24/21 02/12/21 History furosemide [Lasix] 80 mg PO DAILY 01/24/21 02/12/21 History loratadine 10 mg PO HS 01/24/21 02/12/21 History lorazepam 0.5 mg PO TID PRN 01/24/21 02/12/21 History losartan 25 mg PO DAILY 01/24/21 02/12/21 History magnesium oxide 400 mg PO DAILY 01/24/21 02/12/21 History metoprolol succinate 100 mg PO BID 01/24/21 02/12/21 History mometasone [Nasonex] 2 spray INTRANASAL DAILY 01/24/21 02/12/21 History ilxmjtbvczbi-ebqoidyi-jtoutc 1 tab PO DAILY 01/24/21 02/12/21 History [Centrum Silver] nitroglycerin 0.4 mg SUBLINGUAL UD PRN 01/24/21 02/12/21 History omeprazole 20 mg PO DAILY 01/24/21 02/12/21 History rosuvastatin [Crestor] 10 mg PO HS 01/24/21 02/12/21 History sotalol 80 mg PO BID 01/24/21 02/12/21 History spironolactone 12.5 mg PO DAILY 01/24/21 02/12/21 History warfarin 1.25 - 2.5 mg PO UD 01/24/21 02/12/21 History hydroxyzine pamoate [Vistaril] 25 mg PO Q8H PRN 5 Days #15 cap 02/10/21 02/12/21 Rx methylprednisolone See Rx Instructions .ROUTE 02/10/21 02/12/21 Rx .COMPLEX #21 ea duloxetine 20 mg PO QPM 02/12/21 02/12/21 History Past Med/Surg History Medical History Abrasion of face AF (atrial fibrillation) (02/28/14) Angioedema (Unknown) Atrial fibrillation with rapid ventricular response CAD (coronary artery disease) of bypass graft (02/28/14) Carotid artery occlusion (Unknown) Chest pain (07/20/14) Chest pain Chronic ischemic heart disease (Unknown) Coronary artery bypass grafting (Unknown) [place] [place] [place] VARGHESE to LAD SVG's to diagonal, obtuse marginal, RCA " Dermatitis Fall Implantation of aortic valve prosthesis or synthetic device (Unknown) No pertinent family history Paroxysmal atrial fibrillation (Unknown) Placement of stent in coronary artery (Unknown) "RCA December 2006 " Replacement of aortic valve (Unknown) [place] [place] " Stented coronary artery (Unknown) 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) Total abdominal hysterectomy with bilateral salpingo-oophorectomy (Unknown) Surgical History No pertinent past surgical history Family History Other No pertinent family history Social History Smoking Status: Never smoker Second Hand Exposure: No; Do You Dip or Chew Tobacco: No; Tobacco Cessation Education Requested by Patient: No Hx Alcohol Use: No Hx Substance Use: No Preferred Language: Maltese Communication Ability: Effective Visual Impairment: No Limitations Hearing Ability: Normal Trolley Cleaner Required: No Beliefs That Will Affect Care: None Current Living Situation: Alone Other Information That Helps Us Care for You: No Feels Safe at Home: Yes Safety Concerns: Feels Safe At This Time Assistive Devices: None Review of Systems Review of Systems: As per HPI, all 10 systems reviewed, all other ROS negative Physical Exam Physical Exam: GENERAL: uncomfortable, anxious, restless, obese, no respiratory distress SKIN: Pallor, warm HEENT: Pale palpebral conjunctivae, no ptosis, dry buccal mucosa NECK : Supple, short neck, no tenderness CHEST : Decreased breath sounds, no tenderness HEART : RRR, systolic murmur ABDOMEN: Some distention, nontender BACK : Minimal low back tenderness, negative straight leg raise test RECTAL : Intact sphincter, dark stool (FOBT negative) EXTREMITIES : Bilateral LE swelling, no LE tenderness, no other conspicuous deformities noted NEUROLOGIC : Coherent, no facial asymmetry, bilateral restless leg movements Results & Data Results & Data ([facility]) Vital Signs (Past 12 Hours) Vital Signs Temp Pulse Pulse Resp BP BP Pulse Ox 02/13/21 06:26 65 20 158/77 H 93 02/13/21 04:49 71 20 126/54 L 94 02/13/21 03:30 77 18 124/66 94 02/13/21 01:30 75 21 167/99 H 98 02/13/21 01:14 85 24 170/106 H 97 02/13/21 00:26 71 17 146/85 H 95 02/12/21 22:57 75 20 180/97 H 94 02/12/21 22:39 92 H 21 180/97 H 97 02/12/21 21:01 36.8 C 93 H 18 146/74 H 98 Laboratory Results Laboratory Results WBC 7.62 K/uL (4.8-10.8) 02/12/21 22:50 RBC 2.98 M/uL (4.2-5.4) L 02/12/21 22:50 Hgb 9.2 g/dL (12.0-16.0) L 02/12/21 22:50 Hct 29.6 % (37-47) L 02/12/21 22:50 MCV 99.3 fL (80-100) 02/12/21 22:50 MCH 30.9 pg (25-34) 02/12/21 22:50 MCHC 31.1 g/dL (32-36) L 02/12/21 22:50 RDW Std Deviation 51.8 fL (36.4-46.3) H 02/12/21 22:50 RDW Coeff of Ge 14.4 % (11.5-14.5) 02/12/21 22:50 Plt Count 389 K/uL (130-400) 02/12/21 22:50 MPV 11.4 fL (7.4-10.4) H 02/12/21 22:50 Immature Gran % (Auto) 0.1 % 02/12/21 22:50 Neut % (Auto) 78.4 % 02/12/21 22:50 Lymph % (Auto) 10.9 % 02/12/21 22:50 [place] % (Auto) 9.3 % 02/12/21 22:50 Eos % (Auto) 0.8 % 02/12/21 22:50 Baso % (Auto) 0.5 % 02/12/21 22:50 Neut # (Auto) 5.97 K/uL (1.4-6.5) 02/12/21 22:50 Lymph # (Auto) 0.83 K/uL (1.2-3.4) L 02/12/21 22:50 [place] # (Auto) 0.71 K/uL (0.11-0.59) H 02/12/21 22:50 Eos # (Auto) 0.06 K/uL (0-0.5) 02/12/21 22:50 Baso # (Auto) 0.04 K/uL (0-0.2) 02/12/21 22:50 Immature Gran # (Auto) 0.01 K/uL (0.00-0.02) 02/12/21 22:50 PT 28.0 Seconds (9.0-12.0) H 02/13/21 00:08 INR 3.0 (0.9-1.1) H 02/13/21 00:08 APTT 29.4 Seconds (21.0-31.0) 02/13/21 00:08 PTT Ratio 1.1 02/13/21 00:08 Sodium 142 mmol/L (136-145) 02/12/21 22:50 Potassium 3.6 mmol/L (3.5-5.1) 02/12/21 22:50 Chloride 103 mmol/L (98-107) 02/12/21 22:50 Carbon Dioxide 31 mmol/L (21-32) 02/12/21 22:50 Anion Gap 8.0 (3-11) 02/12/21 22:50 BUN 36 mg/dl (7-18) H 02/12/21 22:50 Creatinine 1.27 mg/dl (0.6-1.2) H 02/12/21 22:50 Est Cr Clr Drug Dosing 31.2 ml/min 02/12/21 22:50 Est GFR ( Amer) 44.9 02/12/21 22:50 Est GFR (Non-Af Amer) 38.7 02/12/21 22:50 BUN/Creatinine Ratio 28.2 (10-20) H 02/12/21 22:50 Glucose 109 mg/dl (70-99) H 02/12/21 22:50 Estimat Average Glucose 108 mg/dl 02/12/21 22:50 Hemoglobin A1c 5.4 % (4.5-5.6) 02/12/21 22:50 Calcium 9.4 mg/dl (8.5-10.1) 02/12/21 22:50 Magnesium 2.2 mg/dl (1.8-2.4) 02/12/21 22:50 Total Bilirubin 0.3 mg/dl (0.2-1) 02/12/21 22:50 AST 24 U/L (15-37) 02/12/21 22:50 ALT 27 U/L (12-78) 02/12/21 22:50 Alkaline Phosphatase 64 U/L (45-117) 02/12/21 22:50 Total Creatine Kinase 124 U/L (26-192) 02/12/21 22:50 Troponin I < 0.015 ng/ml (0-0.045) 02/12/21 22:50 Total Protein 8.2 gm/dl (6.4-8.2) 02/12/21 22:50 Albumin 3.7 gm/dl (3.4-5.0) 02/12/21 22:50 Globulin 4.5 gm/dl (2.5-4.0) H 02/12/21 22:50 Albumin/Globulin Ratio 0.8 (0.9-2) L 02/12/21 22:50 TSH 6.350 uIu/ml (0.300-4.500) H 02/12/21 22:50 Free T4 1.33 ng/dl (0.8-1.6) 02/12/21 22:50 Urine Color Yellow 02/12/21 23:15 Urine Appearance Clear (Clear) 02/12/21 23:15 Urine pH 7.0 (4.5-7.5) 02/12/21 23:15 Ur Specific [place] 1.009 (1.000-1.030) 02/12/21 23:15 Urine Protein Negative (Negative) 02/12/21 23:15 Urine Glucose (UA) Negative (Negative) 02/12/21 23:15 Urine Ketones Negative (Negative) 02/12/21 23:15 Urine Blood Negative (Negative) 02/12/21 23:15 Urine Nitrite Negative (Negative) 02/12/21 23:15 Urine Bilirubin Negative (Negative) 02/12/21 23:15 Urine Urobilinogen Negative (Negative) 02/12/21 23:15 Ur Leukocyte Esterase 2+ (Negative) H 02/12/21 23:15 Urine WBC (Auto) 10-30 /hpf (0-5) H 02/12/21 23:15 Urine RBC (Auto) 0-4 /hpf (0-4) 02/12/21 23:15 U Hyaline Cast (Auto) 0 /lpf (0-5) 02/12/21 23:15 U Epithel Cells (Auto) 0-5 /lpf (0-5) 02/12/21 23:15 Urine Bacteria (Auto) 2+ (Negative) H 02/12/21 23:15 COVID-19 Eval Order CovFluRsv at [facility] 02/13/21 01:11 SARS-CoV-2 (PCR) NEGATIVE (Negative) 02/13/21 01:11 Influenza Type A (PCR) Negative (Neg) 02/13/21 01:11 Influenza Type B (PCR) Negative (Neg) 02/13/21 01:11 RSV (RT-PCR) Negative (Neg) 02/13/21 01:11 Diagnostic Findings Chest x-ray as per my interpretation cardiomegaly EKG as per my interpretation : Rate 85, paced rhythm:
[2021-02-13] MEDS ORDERED: GLUCAGON FOR INJ 1 MG VIAL SQ PRN (06:44)
[2021-02-13] MEDS ORDERED: CARBOHYDRATES FOR HYPOGLYCEMIA PO PRN (06:44)
[2021-02-13] MEDS ORDERED: LORazepam 0.5 MG TAB PO PRN (06:44)
[2021-02-13] MEDS ORDERED: GLUCOSE 40% GEL 15 GM TUBE PO PRN (06:44)
[2021-02-13] MEDS ORDERED: PROMETHAZINE HCL 12.5 MG in SODIUM CHLORIDE 0.9% 50 ML IV PRN (06:44)
[2021-02-13] MEDS ORDERED: DEXTROSE 50% 50 ML SYRINGE IV PRN (06:44)
[2021-02-13] MEDS ORDERED: hydrOXYzine HCl 25 MG TAB PO PRN (06:44)
[2021-02-13] MEDS ORDERED: ACETAMINOPHEN 325 MG TAB PO PRN (06:44)
[2021-02-13] MEDS ORDERED: GLUCOSE 10 TABS/TUBE PO PRN (06:44)
[2021-02-13] MEDS ORDERED: SODIUM CHLORIDE 0.9% 250 ML IV PRN (06:44)
[2021-02-13] MEDS ORDERED: ERTAPENEM CONSULT ACTIVE PRN (07:05)
[2021-02-13] MEDS: FLUTICASONE PROPIONATE NA SPR 16 GM BTL SCH (08:08)
[2021-02-13] MEDS: METOPROLOL SUCC 50MG EXT REL TAB PO SCH ×2 (08:09→20:27)
[2021-02-13] MEDS: INSULIN ASPART 100 UNITS/ML 3 ML PEN SC SCH ×4 (08:09→20:48)
[2021-02-13] MEDS: CEROVITE ADV FORMULA TAB PO SCH (08:09)
[2021-02-13] MEDS: ASPIRIN 81 MG ECTAB PO SCH (08:09)
[2021-02-13] MEDS: PANTOprazole 40 MG TAB PO SCH (08:09)
[2021-02-13] MEDS: DOCUSATE SODIUM 100 MG CAP PO SCH (08:09)
[2021-02-13] MEDS: ERTAPENEM SODIUM 1,000 MG in SODIUM CHLORIDE 0.9% 50 ML IV SCH (08:10)
--- NOTE | 2021-02-13 09:08 | XRay Report ---
SINGLE VIEW CHEST CLINICAL HISTORY: Generalized weakness. FINDINGS: An AP, portable, upright chest radiograph is compared to study dated 07/12/2014. The patient is status post midline sternotomy and aortic valve surgery. A 2-lead cardiac pacemaker is in place. The heart is enlarged noting atherosclerotic calcification of the thoracic aorta. The pulmonary vascu lature is noncongested. Chronic interstitial thickening is similar to previous. Foci of scarring/atel ectasis are noted in both lungs. No airspace consolidation or large pleural effusion is identified. N o pneumothorax is seen. The skeletal structures are osteopenic. The bony thorax is grossly intact. IMPRESSION: 1. Cardiomegaly and cardiac pacemaker with no radiographic evidence of congestive failure. 2. No airspace consolidation or large pleural effusion is identified. ACT 112: Negative or not required by law. Electronically signed by: Jim Ruiz M.D. 02/13/2021 9:06 AM
--- NOTE | 2021-02-13 19:28 | Hospitalist Progress Note ---
Date of Service February 13, 2021 Assessment & Plan (1) Generalized weakness: Possible related to UTI vs symptomatic anemia Continue PT/OT Fall precaution Anemia Hgb 9.2 today FOBT done in the ER negative s/p 1 unit prbc today Continue monitor CBC Abnormal UA UA positive for Leukocytes and bacteria Urine cx pending Received Cefepime in the ER Ertapenem was started Will follow urine cx RLS Cymbalta was discontinue and start on Lyrica HTN BP stable SSS s/p PPM Paroxysmal Afib Continue metoprolol and Sotalol Continue Coumadin INR 3 today Continue PT/INR CAD s/p stenting/CABG Continue aspirin, statin and metoprolol Stable Chronic diastolic heart failure No sign of fluid overload Will resume Lasix 80mg daily in am Continue monitor BMP Acute kidney injury Creatinine 1.27 today Lasix was held due to increase in creatinine Will resume Lasix in am DVT prophylaxis. Coumadin INR 3 Full code Admission and Anticipated Discharge Date Admission Date: February 13, 2021 Subjective Pt was seen and examined for follow up weakness Lying in bed with no distress Pt said that she feels tired Denies any chest pain, palpitation, dizziness and SOB Review of Systems Review of Systems: All systems reviewed & are unremarkable except as noted in Subjective Physical Exam Physical Exam: General- No acute distress Head- atraumatic Eyes- PERRL, EOMI, ENT- oropharynx clear Neck- supple, no JVD Lungs- clear to auscultation Heart- regular rhythm; +murmur Abdomen- normal bowel sounds, soft, nontender Extremities- no calf tenderness Neuro- alert, oriented x 3; PERRL, EOMI; no facial palsy; no dysarthria Skin- warm & dry Results & Data Results & Data ([facility]) Vital Signs (Past 12 Hours) Vital Signs Temp Pulse Pulse Pulse Resp BP BP 02/13/21 15:00 36.5 C 68 18 103/65 02/13/21 13:45 36.5 C 62 18 93/65 L 02/13/21 12:46 36.3 C L 62 18 94/60 L 02/13/21 11:46 36.4 C L 74 18 106/64 02/13/21 11:44 36.4 C L 74 18 106/64 02/13/21 11:16 36.4 C L 82 18 122/87 02/13/21 11:01 36.3 C L 70 18 89/50 L 02/13/21 10:46 36.3 C L 98 H 18 97/62 L 02/13/21 10:32 36.3 C L 78 18 97/62 L Pulse Ox 02/13/21 15:00 90 02/13/21 13:45 02/13/21 12:46 92 02/13/21 11:46 92 02/13/21 11:44 92 02/13/21 11:16 90 02/13/21 11:01 94 02/13/21 10:46 02/13/21 10:32 93
[2021-02-13] MEDS: ROSUVASTATIN CALCIUM 10 MG TAB PO SCH (20:27)
[2021-02-13] MEDS: LORATADINE 10 MG TAB PO SCH (20:27)
[2021-02-13] MEDS: FERROUS SULFATE 325 MG TAB PO SCH (20:27)
[2021-02-13] MEDS: PREGABALIN 50 MG CAP PO SCH (20:46)
[2021-02-14 05:30] LABS: Basophils # (auto) 0.05 K/uL (0-0.2); Basophils % (auto) 0.6 %; Eosinophils % (auto) 2.6 %; Hematocrit (blood only) 32.8 % (37-47); Immature Granulocytes # (auto) 0.01 K/uL (0.00-0.02); Immature Granulocytes % (auto) 0.1 %; Lymphocytes # (auto) 0.97 K/uL (1.2-3.4); Lymphocytes % (auto) 12.4 %; Mean Corpuscular Hemoglobin 30.1 pg (25-34); Mean Corpuscular Hgb Conc 30.5 g/dL (32-36); Mean Corpuscular Volume 98.8 fL (80-100); Mean Platelet Volume 10.7 fL (7.4-10.4); Monocytes # (auto) 0.69 K/uL (0.11-0.59); Monocytes % (auto) 8.8 %; Neutrophils # (auto) 5.88 K/uL (1.4-6.5); Neutrophils % (auto) 75.5 %; Platelet Count 310 K/uL (130-400); RDW Coefficient of Variation 15.2 % (11.5-14.5); RDW Standard Deviation 54.8 fL (36.4-46.3); Red Blood Count 3.32 M/uL (4.2-5.4); Reticulocyte % 3.7 % (0.5-2.0); Reticulocytes # 0.12 10^6/uL (0.02-0.10)
[2021-02-14 05:42] LABS: INR 2.3 (0.9-1.1); Prothrombin Time 22.2 Seconds (9.0-12.0)
[2021-02-14 06:04] LABS: Albumin Level 3.1 gm/dl (3.4-5.0); BUN Creatinine Ratio 28.9 (10-20); Calcium 8.6 mg/dl (8.5-10.1); Creatinine Clr Calc Pharmacy 37.2 ml/min; Est GFR (African American) 56.5; Est GFR (Non-African American) 48.7; Potassium 3.3 mmol/L (3.5-5.1)
[2021-02-14 06:13] LABS: Albumin Globulin Ratio 0.8 (0.9-2); Bilirubin,Total 0.5 mg/dl (0.2-1); Ferritin 21.5 ng/ml (8-388); Total Protein 7.1 gm/dl (6.4-8.2)
[2021-02-14] MEDS: ERTAPENEM SODIUM 1,000 MG in SODIUM CHLORIDE 0.9% 50 ML IV SCH (06:16)
[2021-02-14 06:41] LABS: Folate (Folic Acid) > 20.00 ng/ml (>5.38); Vitamin B12 400 pg/ml (193-986)
--- NOTE | 2021-02-14 07:20 | Electrocardiogram Report ---
Test Reason : Blood Pressure : / mmHG Vent. Rate : 085 BPM Atrial Rate : 085 BPM P-R Int : 230 ms QRS Dur : 146 ms QT Int : 448 ms P-R-T Axes : -12 074 082 degrees QTc Int : 533 ms Atrial-paced rhythm with prolonged AV conduction with occasional ventricular-paced complexes Right bundle branch block Abnormal ECG When compared with ECG of 21-JUL-2014 10:38, Ventricular paced complexes are now present Confirmed by Jet Jerome ([id number]) on 02/14/2021 7:19:37 AM Referred By: REFERRED SELF Confirmed By:Jet Jerome
[2021-02-14] MEDS: FLUTICASONE PROPIONATE NA SPR 16 GM BTL SCH (07:28)
[2021-02-14] MEDS: ASPIRIN 81 MG ECTAB PO SCH (07:28)
[2021-02-14] MEDS: CEROVITE ADV FORMULA TAB PO SCH (07:28)
[2021-02-14] MEDS: METOPROLOL SUCC 50MG EXT REL TAB PO SCH ×2 (07:28→21:00)
[2021-02-14] MEDS: PANTOprazole 40 MG TAB PO SCH (07:28)
[2021-02-14] MEDS: DOCUSATE SODIUM 100 MG CAP PO SCH (07:29)
[2021-02-14] MEDS: INSULIN ASPART 100 UNITS/ML 3 ML PEN SC SCH ×4 (08:21→20:59)
[2021-02-14] MEDS: SOTALOL HCL 80 MG TAB PO SCH ×2 (09:00→21:09)
[2021-02-14] MEDS ORDERED: FUROSEMIDE 40 MG TAB PO ONE ×2 (09:45→18:37)
[2021-02-14] MEDS ORDERED: POTASSIUM CHLORIDE CRTAB 20 MEQ TABCR PO ONE (09:45)
[2021-02-14] MEDS: WARFARIN SOD 2 MG TAB PO SCH (16:18)
--- NOTE | 2021-02-14 18:33 | Hospitalist Progress Note ---
Date of Service February 14, 2021 Assessment & Plan (1) Generalized weakness: Possible related to UTI vs symptomatic anemia Continue PT/OT Fall precaution Anemia Hgb 10 today FOBT done in the ER negative s/p 1 unit prbc during the hospital course Continue monitor CBC UTI UA positive for Leukocytes and bacteria Urinecx grew Ecoli Received Cefepime in the ER Continue Ertapenem for now due to Hx ESBL Follow up urine sencitivity RLS Cymbalta was discontinue and started on Lyrica Pt said that the Lyrica is very effective because she has not had any spsams HTN BP stable SSS s/p PPM Paroxysmal Afib Continue metoprolol and Sotalol Continue Coumadin INR 3 today Continue PT/INR CAD s/p stenting/CABG Continue aspirin, statin and metoprolol Stable Chronic diastolic heart failure No sign of fluid overload Continue Lasix 80mg daily Continue monitor BMP Acute kidney injury Creatinine 1.27 admission Creatinine 1.05 today Lasix was held due to increase in creatinine Lasix resume today Continue monitor BMP DVT prophylaxis. Coumadin INR 2.3 Full code Admission and Anticipated Discharge Date Admission Date: February 13, 2021 Subjective Pt was seen and examined for follow up weakness Lying in bed with no distress resting comfortable Pt said that she feels much better She said that she has more energy She said that she slept well with no leg cramp or restlessness Called son and provided with updates and answered all his questions Denies any chest pain, palpitation, dizziness and SOB Review of Systems Review of Systems: All systems reviewed & are unremarkable except as noted in Subjective Physical Exam Physical Exam: General- No acute distress Head- atraumatic Eyes- PERRL, EOMI, ENT- oropharynx clear Neck- supple, no JVD Lungs- clear to auscultation Heart- regular rhythm; +murmur Abdomen- normal bowel sounds, soft, nontender Extremities- no calf tenderness Neuro- alert, oriented x 3; PERRL, EOMI; no facial palsy; no dysarthria Skin- warm & dry Results & Data Results & Data ([facility]) Vital Signs (Past 12 Hours) Vital Signs Temp Pulse Resp BP Pulse Ox 02/14/21 15:00 36.6 C 77 18 102/68 93 02/14/21 11:00 36.5 C 74 18 123/76 91 02/14/21 07:59 36.7 C 82 18 120/71 91
[2021-02-14] MEDS: FERROUS SULFATE 325 MG TAB PO SCH (20:59)
[2021-02-14] MEDS: LORATADINE 10 MG TAB PO SCH (20:59)
[2021-02-14] MEDS: ROSUVASTATIN CALCIUM 10 MG TAB PO SCH (21:01)
[2021-02-14] MEDS: PREGABALIN 50 MG CAP PO SCH (21:09)
[2021-02-15] MEDS: ERTAPENEM SODIUM 1,000 MG in SODIUM CHLORIDE 0.9% 50 ML IV SCH (07:15)
[2021-02-15 08:34] LABS: Est GFR (African American) 53.4; Est GFR (Non-African American) 46.1; INR 2.1 (0.9-1.1); Potassium 3.4 mmol/L (3.5-5.1); Prothrombin Time 20.3 Seconds (9.0-12.0)
[2021-02-15 08:35] LABS: BUN Creatinine Ratio 22.2 (10-20); Calcium 8.6 mg/dl (8.5-10.1); Creatinine Clr Calc Pharmacy 35.5 ml/min
[2021-02-15] MEDS: ASPIRIN 81 MG ECTAB PO SCH (09:17)
[2021-02-15] MEDS: FLUTICASONE PROPIONATE NA SPR 16 GM BTL SCH (09:17)
[2021-02-15] MEDS: DOCUSATE SODIUM 100 MG CAP PO SCH (09:17)
[2021-02-15] MEDS: SOTALOL HCL 80 MG TAB PO SCH ×2 (09:18→20:32)
[2021-02-15] MEDS: FUROSEMIDE 80 MG TAB PO SCH (09:18)
[2021-02-15] MEDS: METOPROLOL SUCC 50MG EXT REL TAB PO SCH ×2 (09:18→20:31)
[2021-02-15] MEDS: PANTOprazole 40 MG TAB PO SCH (09:18)
[2021-02-15] MEDS: CEROVITE ADV FORMULA TAB PO SCH (09:18)
[2021-02-15] MEDS: INSULIN ASPART 100 UNITS/ML 3 ML PEN SC SCH ×4 (09:20→20:25)
[2021-02-15] MEDS ORDERED: POTASSIUM CHLORIDE 10 MEQ TABCR PO STA (09:33)
[2021-02-15] MEDS ORDERED: POTASSIUM CHLORIDE CRTAB 20 MEQ TABCR PO STA (09:33)
[2021-02-15] MEDS: WARFARIN SOD 2 MG TAB PO SCH (16:29)
--- NOTE | 2021-02-15 18:18 | Hospitalist Progress Note ---
Date of Service February 15, 2021 Assessment & Plan (1) Generalized weakness: Possible related to UTI vs symptomatic anemia Continue PT/OT Fall precaution Anemia Hgb stable FOBT done in the ER negative s/p 1 unit prbc during the hospital course Continue monitor CBC UTI UA positive for Leukocytes and bacteria Urine cx positive for ESBL Received Cefepime in the ER Continue Ertapenem for now due to Hx ESBL Pt would like to stay in the hospital to complete the course of the abx Will complete 5 days course of abx (02/17 ) RLS Cymbalta was discontinue and started on Lyrica Pt said that the Lyrica is very effective because she has not had any RLS symptoms She would like to get a script for that Pt understands that it might be expensive Hypokalemia Potassium 3.4 K replaced Monitor BMP HTN BP stable SSS s/p PPM Paroxysmal Afib Continue metoprolol and Sotalol Continue Coumadin INR 2.1 today Continue monitor PT/INR Follow up with the coumadin clinic CAD s/p stenting/CABG Continue aspirin, statin and metoprolol Stable Chronic diastolic heart failure No sign of fluid overload Continue Lasix 80mg daily Continue monitor BMP Acute kidney injury Creatinine 1.27 admission Creatinine 1.1 today Lasix was held due to increase in creatinine Lasix resume today Continue monitor BMP DVT prophylaxis. Coumadin INR 2.1 Full code Admission and Anticipated Discharge Date Admission Date: February 13, 2021 Subjective Pt was seen and examined for follow up weakness Sitting in the chair with no distress watching TV Pt said that she feels much better Spoke to her son yesterday and provided with updates and answered all his questions Denies any chest pain, palpitation, dizziness and SOB Review of Systems Review of Systems: All systems reviewed & are unremarkable except as noted in Subjective Physical Exam Physical Exam: General- No acute distress Head- atraumatic Eyes- PERRL, EOMI, ENT- oropharynx clear Neck- supple, no JVD Lungs- clear to auscultation Heart- regular rhythm; +murmur Abdomen- normal bowel sounds, soft, nontender Extremities- no calf tenderness Neuro- alert, oriented x 3; PERRL, EOMI; no facial palsy; no dysarthria Skin- warm & dry Results & Data Results & Data ([facility]) Vital Signs (Past 12 Hours) Vital Signs Temp Pulse Pulse Resp BP Pulse Ox 02/15/21 15:55 74 02/15/21 15:49 36.6 C 86 16 131/79 91 02/15/21 11:40 36.4 C L 76 16 116/70 98 02/15/21 07:47 36.5 C 70 16 118/79 91 02/15/21 07:23 63
[2021-02-15] MEDS: FERROUS SULFATE 325 MG TAB PO SCH (20:30)
[2021-02-15] MEDS: PREGABALIN 50 MG CAP PO SCH (20:30)
[2021-02-15] MEDS: LORATADINE 10 MG TAB PO SCH (20:30)
[2021-02-15] MEDS: ROSUVASTATIN CALCIUM 10 MG TAB PO SCH (20:32)
[2021-02-16] MEDS: ERTAPENEM SODIUM 1,000 MG in SODIUM CHLORIDE 0.9% 50 ML IV SCH (06:16)
[2021-02-16 08:11] LABS: INR 2.2 (0.9-1.1); Prothrombin Time 21.4 Seconds (9.0-12.0)
[2021-02-16 08:36] LABS: Creatinine Clr Calc Pharmacy 35.9 ml/min; Est GFR (African American) 54.6; Est GFR (Non-African American) 47.1; Potassium 3.5 mmol/L (3.5-5.1)
[2021-02-16] MEDS: INSULIN ASPART 100 UNITS/ML 3 ML PEN SC SCH ×4 (10:42→22:04)
[2021-02-16] MEDS: FLUTICASONE PROPIONATE NA SPR 16 GM BTL SCH (10:44)
[2021-02-16] MEDS: ASPIRIN 81 MG ECTAB PO SCH (10:44)
[2021-02-16] MEDS: CEROVITE ADV FORMULA TAB PO SCH (10:45)
[2021-02-16] MEDS: PANTOprazole 40 MG TAB PO SCH (10:45)
[2021-02-16] MEDS: SOTALOL HCL 80 MG TAB PO SCH ×2 (10:45→21:36)
[2021-02-16] MEDS: METOPROLOL SUCC 50MG EXT REL TAB PO SCH ×2 (10:45→21:35)
[2021-02-16] MEDS: FUROSEMIDE 80 MG TAB PO SCH (10:46)
[2021-02-16] MEDS: DOCUSATE SODIUM 100 MG CAP PO SCH (10:50)
[2021-02-16] MEDS: WARFARIN SOD 2 MG TAB PO SCH (17:10)
--- NOTE | 2021-02-16 17:50 | Hospitalist Progress Note ---
Date of Service February 16, 2021 Assessment & Plan (1) Generalized weakness: Possible related to UTI vs symptomatic anemia Continue PT/OT Fall precaution Anemia Hgb stable FOBT done in the ER negative s/p 1 unit prbc during the hospital course Continue monitor CBC UTI UA positive for Leukocytes and bacteria Urine cx positive for ESBL Received Cefepime in the ER Continue Ertapenem for now due to Hx ESBL Pt would like to stay in the hospital to complete the course of the abx Will complete 5 days course of abx (02/17 ) RLS Cymbalta was discontinue and started on Lyrica Pt said that the Lyrica is very effective because she has not had any RLS symptoms She would like to get a script for that Pt understands that it might be expensive Hypokalemia Potassium 3.5 Monitor BMP HTN BP stable SSS s/p PPM Paroxysmal Afib Continue metoprolol and Sotalol Continue Coumadin INR 2.2 today Continue monitor PT/INR Follow up with the coumadin clinic CAD s/p stenting/CABG Continue aspirin, statin and metoprolol Stable Chronic diastolic heart failure No sign of fluid overload Continue Lasix 80mg daily Continue monitor BMP Acute kidney injury Creatinine 1.27 admission Creatinine 1.08 today Lasix was held due to increase in creatinine Lasix resume today Continue monitor BMP DVT prophylaxis. Coumadin INR 2.2 Full code Admission and Anticipated Discharge Date Admission Date: February 13, 2021 Subjective Pt was seen and examined for follow up weakness Sitting in the chair with no distress watching TV Pt said that she feels much better Denies any chest pain, palpitation, dizziness and SOB Review of Systems Review of Systems: All systems reviewed & are unremarkable except as noted in Subjective Physical Exam Physical Exam: General- No acute distress Head- atraumatic Eyes- PERRL, EOMI, ENT- oropharynx clear Neck- supple, no JVD Lungs- clear to auscultation Heart- regular rhythm; +murmur Abdomen- normal bowel sounds, soft, nontender Extremities- no calf tenderness Neuro- alert, oriented x 3; PERRL, EOMI; no facial palsy; no dysarthria Skin- warm & dry Results & Data Results & Data ([facility]) Vital Signs (Past 12 Hours) Vital Signs Temp Pulse Pulse Resp BP BP Pulse Ox 02/16/21 15:31 87 02/16/21 14:00 36.3 C L 86 18 131/84 94 04/27/21 11:00 36.3 C L 61 18 105/62 90 02/16/21 07:09 87 02/16/21 07:04 36.8 C 83 18 111/75 91
[2021-02-16] MEDS: FERROUS SULFATE 325 MG TAB PO SCH (21:34)
[2021-02-16] MEDS: LORATADINE 10 MG TAB PO SCH (21:34)
[2021-02-16] MEDS: ROSUVASTATIN CALCIUM 10 MG TAB PO SCH (21:35)
[2021-02-16] MEDS: PREGABALIN 50 MG CAP PO SCH (21:39)
[2021-02-17] MEDS: ERTAPENEM SODIUM 1,000 MG in SODIUM CHLORIDE 0.9% 50 ML IV SCH (06:12)
[2021-02-17 07:39] LABS: Hematocrit (blood only) 34.1 % (37-47); Hemoglobin 10.2 g/dL (12.0-16.0); Mean Corpuscular Hemoglobin 29.7 pg (25-34); Mean Corpuscular Hgb Conc 29.9 g/dL (32-36); Mean Corpuscular Volume 99.1 fL (80-100); Mean Platelet Volume 10.9 fL (7.4-10.4); Platelet Count 302 K/uL (130-400); RDW Coefficient of Variation 14.8 % (11.5-14.5); RDW Standard Deviation 52.8 fL (36.4-46.3); Red Blood Count 3.44 M/uL (4.2-5.4); White Blood Count 6.84 K/uL (4.8-10.8)
[2021-02-17 07:49] LABS: INR 2.2 (0.9-1.1); Prothrombin Time 21.4 Seconds (9.0-12.0)
[2021-02-17 08:04] LABS: BUN Creatinine Ratio 24.3 (10-20); Calcium 9.1 mg/dl (8.5-10.1); Creatinine Clr Calc Pharmacy 42.6 ml/min; Est GFR (African American) 68.1; Est GFR (Non-African American) 58.7; Potassium 3.2 mmol/L (3.5-5.1)
[2021-02-17] MEDS: INSULIN ASPART 100 UNITS/ML 3 ML PEN SC SCH (08:21)
[2021-02-17] MEDS: SOTALOL HCL 80 MG TAB PO SCH (08:21)
[2021-02-17] MEDS: DOCUSATE SODIUM 100 MG CAP PO SCH (08:21)
[2021-02-17] MEDS: PANTOprazole 40 MG TAB PO SCH (08:22)
[2021-02-17] MEDS: FLUTICASONE PROPIONATE NA SPR 16 GM BTL SCH (08:22)
[2021-02-17] MEDS: ASPIRIN 81 MG ECTAB PO SCH (08:22)
[2021-02-17] MEDS: FUROSEMIDE 80 MG TAB PO SCH (08:22)
[2021-02-17] MEDS: METOPROLOL SUCC 50MG EXT REL TAB PO SCH (08:22)
[2021-02-17] MEDS: CEROVITE ADV FORMULA TAB PO SCH (08:22)
--- NOTE | 2021-02-17 09:16 | Hospitalist Progress Note ---
Date of Service February 17, 2021 Assessment & Plan (1) Generalized weakness: Possible related to UTI vs symptomatic anemia Continue PT/OT Fall precaution Anemia Hgb stable FOBT done in the ER negative s/p 1 unit prbc during the hospital course Continue monitor CBC Follow up as outpt UTI UA positive for Leukocytes and bacteria Urine cx positive for ESBL Received Cefepime in the ER Continue Ertapenem for now due to Hx ESBL Pt would like to stay in the hospital to complete the course of the abx Completed 5 days course of abx (02/17 ) RLS Cymbalta was discontinue and started on Lyrica Pt said that the Lyrica is very effective because she has not had any RLS symptoms She would like to get a script for that Pt understands that it might be expensive Hypokalemia Potassium 3.5 Monitor BMP Follow up as outpt HTN BP stable however spironolactone was held SSS s/p PPM Paroxysmal Afib Continue metoprolol and Sotalol Continue Coumadin INR 2.2 today Continue monitor PT/INR Follow up with the coumadin clinic CAD s/p stenting/CABG Continue aspirin, statin and metoprolol Stable Chronic diastolic heart failure No sign of fluid overload Continue Lasix 80mg daily Continue monitor BMP Acute kidney injury Creatinine 1.27 admission Creatinine 1.08 today Lasix was held due to increase in creatinine Lasix resume today Continue monitor BMP DVT prophylaxis. Coumadin INR 2.2 Full code Admission and Anticipated Discharge Date Admission Date: February 13, 2021 Subjective Pt was seen and examined for follow up weakness , ESBL UTI Laying in bed, in NAD Pt said that she feels much better , finished IV Abx treatment Denies any chest pain, palpitation, dizziness and SOB Excited about going home later today Review of Systems Review of Systems: All systems reviewed & are unremarkable except as noted in HPI & below Constitutional: no fever and no chills Respiratory: no cough and no dyspnea Cardiovascular: no chest pain and no palpitations Gastrointestinal: no abdominal pain, no nausea and no vomiting Physical Exam Physical Exam: General- No acute distress Head- atraumatic Eyes- PERRL, EOMI, ENT- oropharynx clear Neck- supple, no JVD Lungs- clear to auscultation Heart- regular rhythm; +murmur Abdomen- normal bowel sounds, soft, nontender Extremities- no calf tenderness Neuro- alert, oriented x 3; PERRL, EOMI; no facial palsy; no dysarthria, moves extremities Skin- warm & dry Results & Data Results & Data ([facility]) Vital Signs (Past 12 Hours) Vital Signs Temp Pulse Pulse Resp BP Pulse Ox 02/17/21 08:00 36.7 C 73 18 125/73 94 02/17/21 02:19 36.8 C 87 18 119/67 91 02/16/21 23:54 80 02/16/21 23:30 36.7 C 81 18 130/78 94 Laboratory Results 02/17/21 02/17/21 02/17/21 Range/Units 07:33 07:05 07:05 WBC 6.84 (4.8-10.8) K/uL RBC 3.44 L (4.2-5.4) M/uL Hgb 10.2 L (12.0-16.0) g/dL Hct 34.1 L (37-47) % MCV 99.1 (80-100) fL MCH 29.7 (25-34) pg MCHC 29.9 L (32-36) g/dL RDW Std Deviation 52.8 H (36.4-46.3) fL RDW Coeff of Ge 14.8 H (11.5-14.5) % Plt Count 302 (130-400) K/uL MPV 10.9 H (7.4-10.4) fL PT 21.4 H (9.0-12.0) Seconds INR 2.2 H (0.9-1.1) Sodium (136-145) mmol/L Potassium (3.5-5.1) mmol/L Chloride (98-107) mmol/L Carbon Dioxide (21-32) mmol/L Anion Gap (3-11) BUN (7-18) mg/dl Creatinine (0.6-1.2) mg/dl Est Cr Clr Drug Dosing ml/min Est GFR ( Amer) Est GFR (Non-Af Amer) BUN/Creatinine Ratio (10-20) Glucose (70-99) mg/dl POC Glucose 102 H (70-99) mg/dl Calcium (8.5-10.1) mg/dl 02/17/21 02/16/21 02/16/21 Range/Units 07:05 20:09 16:55 WBC (4.8-10.8) K/uL RBC (4.2-5.4) M/uL Hgb (12.0-16.0) g/dL Hct (37-47) % MCV (80-100) fL MCH (25-34) pg MCHC (32-36) g/dL RDW Std Deviation (36.4-46.3) fL RDW Coeff of Ge (11.5-14.5) % Plt Count (130-400) K/uL MPV (7.4-10.4) fL PT (9.0-12.0) Seconds INR (0.9-1.1) Sodium 140 (136-145) mmol/L Potassium 3.2 L (3.5-5.1) mmol/L Chloride 103 (98-107) mmol/L Carbon Dioxide 35 H (21-32) mmol/L Anion Gap 3.0 (3-11) BUN 22 H (7-18) mg/dl Creatinine 0.90 (0.6-1.2) mg/dl Est Cr Clr Drug Dosing 42.6 ml/min Est GFR ( Amer) 68.1 Est GFR (Non-Af Amer) 58.7 BUN/Creatinine Ratio 24.3 H (10-20) Glucose 84 (70-99) mg/dl POC Glucose 114 H 98 (70-99) mg/dl Calcium 9.1 (8.5-10.1) mg/dl 02/16/21 Range/Units 11:32 WBC (4.8-10.8) K/uL RBC (4.2-5.4) M/uL Hgb (12.0-16.0) g/dL Hct (37-47) % MCV (80-100) fL MCH (25-34) pg MCHC (32-36) g/dL RDW Std Deviation (36.4-46.3) fL RDW Coeff of Ge (11.5-14.5) % Plt Count (130-400) K/uL MPV (7.4-10.4) fL PT (9.0-12.0) Seconds INR (0.9-1.1) Sodium (136-145) mmol/L Potassium (3.5-5.1) mmol/L Chloride (98-107) mmol/L Carbon Dioxide (21-32) mmol/L Anion Gap (3-11) BUN (7-18) mg/dl Creatinine (0.6-1.2) mg/dl Est Cr Clr Drug Dosing ml/min Est GFR ( Amer) Est GFR (Non-Af Amer) BUN/Creatinine Ratio (10-20) Glucose (70-99) mg/dl POC Glucose 149 H (70-99) mg/dl Calcium (8.5-10.1) mg/dl Medications Administered Current Inpatient Medications Acetaminophen (Acetaminophen 325 Mg Tab) 650 mg PO Q4H PRN PRN Reason: Pain or Fever Stop: 03/15/21 06:43 Last Admin: 02/15/21 01:07 Dose: 650 mg Documented by: Aspirin (Aspirin 81 Mg Ectab) 81 mg PO DAILY [facility] Stop: 03/15/21 08:59 Last Admin: 02/17/21 08:22 Dose: 81 mg Documented by: Dextrose (Dextrose 50% 50 Ml Syringe) 25 - 50 ml IV UD PRN; Protocol PRN Reason: Hypoglycemia Protocol Stop: 03/15/21 06:43 Docusate Sodium (Docusate Sodium 100 Mg Cap) 300 mg PO DAILY [facility] Stop: 03/15/21 08:59 Last Admin: 02/17/21 08:21 Dose: 300 mg Documented by: Ertapenem (Ertapenem Consult Active) 1 ea N/A UD PRN PRN Reason: Consult Stop: 03/15/21 07:04 Ferrous Sulfate (Ferrous Sulfate 325 Mg Tab) 325 mg PO HS [facility] Stop: 03/15/21 20:59 Last Admin: 02/16/21 21:34 Dose: 325 mg Documented by: Fluticasone Propionate (Fluticasone Propionate Na Spr 16 Gm Btl) 2 sprays NA DAILY [facility]; Protocol Stop: 03/15/21 08:59 Last Admin: 02/17/21 08:22 Dose: 2 sprays Documented by: Furosemide (Furosemide 80 Mg Tab) 80 mg PO QAM [facility] Stop: 03/17/21 08:59 Last Admin: 02/17/21 08:22 Dose: 80 mg Documented by: Glucagon (Glucagon For Inj 1 Mg Vial) 1 mg SQ UD PRN; Protocol PRN Reason: Hypoglycemia Protocol Stop: 03/15/21 06:43 Glucose (Glucose 10 Tabs/Tube) 4 - 8 tabs PO UD PRN; Protocol PRN Reason: Hypoglycemia Protocol Stop: 03/15/21 06:43 Glucose (Glucose 40% Gel 15 Gm Tube) 15 - 30 gm PO UD PRN; Protocol PRN Reason: Hypoglycemia Protocol Stop: 03/15/21 06:43 Hydroxyzine HCl (Hydroxyzine Hcl 25 Mg Tab) 25 mg PO Q8H PRN PRN Reason: anxiety Stop: 03/15/21 06:43 Promethazine HCl 12.5 mg/ (Sodium Chloride) 50.5 mls @ 202 mls/hr IV Q6H PRN PRN Reason: Nausea And Vomiting Stop: 03/15/21 06:43 Ertapenem 1,000 mg/ Sodium (Chloride) 60 mls @ 100 mls/hr IV DAILY@0700 [facility] Stop: 02/23/21 07:14 Last Infusion: 02/17/21 06:45 Dose: Infused Documented by: Insulin Aspart (Insulin Aspart 100 Units/Ml 3 Ml Pen) 0 units SC ACHS [facility] Stop: 03/15/21 06:43 Last Admin: 02/17/21 08:21 Dose: 1 units Documented by: Loratadine (Loratadine 10 Mg Tab) 10 mg PO HS [facility] Stop: 03/15/21 20:59 Last Admin: 02/16/21 21:34 Dose: 10 mg Documented by: Lorazepam (Lorazepam 0.5 Mg Tab) 0.5 mg PO TID PRN PRN Reason: Anxiety Stop: 03/15/21 06:43 Last Admin: 02/15/21 01:07 Dose: 0.5 mg Documented by: Metoprolol Succinate (Metoprolol Succ 50mg Ext Rel Tab) 100 mg PO BID [facility] Stop: 03/15/21 08:59 Last Admin: 02/17/21 08:22 Dose: 100 mg Documented by: Miscellaneous (Carbohydrates For Hypoglycemia ) 15 - 30 gm PO UD PRN PRN Reason: Hypoglycemia Protocol Stop: 03/15/21 06:43 Multivitamins/Minerals (Cerovite Adv Formula Tab) 1 tab PO DAILY [facility] Stop: 03/15/21 08:59 Last Admin: 02/17/21 08:22 Dose: 1 tab Documented by: Pantoprazole Sodium (Pantoprazole 40 Mg Tab) 40 mg PO DAILY [facility]; Protocol Stop: 03/15/21 08:59 Last Admin: 02/17/21 08:22 Dose: 40 mg Documented by: Potassium Chloride (Potassium Chloride Crtab 20 Meq Tabcr) 40 meq PO ONE ONE Stop: 02/17/21 09:31 Pregabalin (Pregabalin 50 Mg Cap) 50 mg PO [facility] Stop: 03/15/21 20:59 Last Admin: 02/16/21 21:39 Dose: 50 mg Documented by: Rosuvastatin Calcium (Rosuvastatin Calcium 10 Mg Tab) 10 mg PO [facility] Stop: 03/15/21 20:59 Last Admin: 02/16/21 21:35 Dose: 10 mg Documented by: Sotalol HCl (Sotalol Hcl 80 Mg Tab) 80 mg PO BID [facility] Stop: 03/15/21 08:59 Last Admin: 02/17/21 08:21 Dose: 80 mg Documented by: Warfarin Sodium (Warfarin Sod 2 Mg Tab) 2 mg PO DAILY@1600 [facility] Stop: 03/16/21 15:59 Last Admin: 02/16/21 17:10 Dose: 2 mg Documented by:
[2021-02-17] MEDS ORDERED: POTASSIUM CHLORIDE CRTAB 20 MEQ TABCR PO ONE (09:30)
[2021-02-17] MEDS ORDERED: POLYETHYLENE (MIRALAX) 17 GM PACK PO ONE (09:52)
--- NOTE | 2021-02-17 10:26 | Discharge Summary ---
Date of Service February 17, 2021 Admission HPI Per Admitting Provider History obtained from patient and records. Medical history significant for chronic diastolic heart failure (EF 55 to 59%, TTE 2019), SSS sp PPM on Coumadin, CAD sp CABG/stenting, hx PVD, history of bovine AVR, HTN, hyperlipidemia, mild GAVIN (CPAP intolerance as per records), DM2 diet- controlled, CRI (baseline creatinine 1.1), subacute anemia (new baseline hemoglobin of 9-10 since December 2020), essential thrombocythemia as per records, GERD, restless leg syndrome. Last confinement June 2014 for chest pain attributed to dyspepsia. Patient complaining of restless legs complaints since September 2020. Initially with back pain complaints without recollection of trauma. Lumbar spine x-ray from ER visit 4 months ago showed degenerative change. No acute fractures. Worsening shortness of breath on exertion the last month. Patient denies cough symptoms. Outpatient hemoglobin noted to be 9-10. Dark stools attributed by patient to iron intake. 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 Distressing restless leg symptoms in the last month resulting in 2 ER visits this month. PCP stopped Neurontin Rx due to lethargy symptoms on recent outpatient visit 4 days ago. Cymbalta initiated for restless legs which is not helping at all as per patient. Patient noted worsening weakness, fatigue, intractable restless leg symptoms the last few days. No cough symptoms. Patient denies chest pain. Usual shortness of breath on exertion. Patient denies abdominal pain, dysuria symptoms. Patient given cefepime at the ER for possible UTI. MEDICAL HISTORY: As above. SURGICAL HISTORY: History of coronary artery bypass graft, Total abdominal hysterectomy, bilateral salpingo-oophorectomy, bladder/urethra surgery, PPM for sinus node dysfunction, knee surgery, BTL, prosthetic aortic valve FAMILY HISTORY: Hypertension. Diabetes. Stroke. PERSONAL/ SOCIAL HISTORY: Nonsmoker. No chronic intake of alcoholic beverage. She is a retired [employer] employee. Admission Exam Per Admitting Provider GENERAL: uncomfortable, anxious, restless, obese, no respiratory distress SKIN: Pallor, warm HEENT: Pale palpebral conjunctivae, no ptosis, dry buccal mucosa NECK : Supple, short neck, no tenderness CHEST : Decreased breath sounds, no tenderness HEART : RRR, systolic murmur ABDOMEN: Some distention, nontender BACK : Minimal low back tenderness, negative straight leg raise test RECTAL : Intact sphincter, dark stool (FOBT negative) EXTREMITIES : Bilateral LE swelling, no LE tenderness, no other conspicuous deformities noted NEUROLOGIC : Coherent, no facial asymmetry, bilateral restless leg movements Principal Diagnosis ESBL UTI Hypokalemia Anemia Discharge Exam General- No acute distress Head- atraumatic Eyes- PERRL, EOMI, ENT- oropharynx clear Neck- supple, no JVD Lungs- clear to auscultation Heart- regular rhythm; +murmur Abdomen- normal bowel sounds, soft, nontender Extremities- no calf tenderness Neuro- alert, oriented x 3; PERRL, EOMI; no facial palsy; no dysarthria, moves extremities Skin- warm & dry Discharge Data Allergies Allergy/AdvReac Type Severity Reaction Status Date / Time iodine Allergy Intermediate itching Verified 02/12/21 23:15 amiodarone Allergy Mild UNSURE Verified 02/12/21 23:15 etodolac Allergy Mild Unknown Verified 02/12/21 23:15 Sulfa (Sulfonamide Allergy Mild Unknown Verified 02/12/21 23:15 Antibiotics) gabapentin AdvReac Mild sedation Verified 02/13/21 06:58 Penicillins AdvReac Mild YEAST INF Verified 02/12/21 23:15 simvastatin AdvReac Unknown CAN'T Verified 02/12/21 23:15 REMEMBER Consultations 02/13/21 00:53 ED Decision to Admit Stat Hospital Course (1) Generalized weakness: Possible related to UTI vs symptomatic anemia Continue PT/OT Fall precaution Anemia Hgb stable ~10 FOBT done in the ER negative s/p 1 unit prbc during the hospital course Continue monitor CBC Follow up as outpt UTI UA positive for Leukocytes and bacteria Urine cx positive for ESBL Received Cefepime in the ER Continue Ertapenem for now due to Hx ESBL Pt would like to stay in the hospital to complete the course of the abx Completed 5 days course of abx (02/17 ) RLS Cymbalta was discontinue and started on Lyrica Pt said that the Lyrica is very effective because she has not had any RLS symptoms She would like to get a script for that Pt understands that it might be expensive Hypokalemia Potassium 3.5 Monitor BMP Discharged on 20 mEq Follow up as outpt HTN BP stable , now 125/73 however spironolactone and losartan was held ok to restart spironolactone Discuss as outpt about losartan, pt advised to check BP at home SSS s/p PPM Paroxysmal Afib Continue metoprolol and Sotalol Continue Coumadin INR 2.2 today Continue monitor PT/INR Follow up with the coumadin clinic CAD s/p stenting/CABG Continue aspirin, statin and metoprolol Stable Chronic diastolic heart failure No sign of fluid overload Continue Lasix 80mg daily Continue monitor BMP Acute kidney injury Creatinine 1.27 admission Creatinine 1.08 today Lasix was held due to increase in creatinine Lasix resume today Continue monitor BMP Total Time Total Time Spent Total Time Spent (In Minutes): 40 Total Time Includes: Examination of the Patient, Discharge Planning and Medication Reconciliation Discharge Plan Discharge Items Patient Disposition: Home - Home Health Services Reason For Visit: HTN URG, COMP UTI Discharge Diagnosis: ESBL UTI Hypokalemia Anemia Condition on Discharge: Good Activity: Per Instructions section Non-emergency contact: Primary Care Provider Call non-emergency contact if: you have any medication questions and your symptoms worsen Follow-up/Referrals: Regan Ceja DO [Primary Care Provider] - (Date & Time 02/23/2021 11:20 AM Provider Regan Ceja DO Department General Internal Medicine [facility] ) Diet: Carb Consistent or DM2 and Heart Healthy Addtl Attending Provider Instructions: Follow-up with your primary care doctor, the appointment was scheduled for you for February 23. At that time you should have blood work done to check your potassium level, and hemoglobin. For now do not take losartan at home, and monitor your blood pressure at home closely. Record all your numbers and provide these numbers to your health care provider at your next appointment. At that time you can decide if your blood pressure medications need to be adjusted. Take potassium daily, and then have potassium level checked by your primary care doctor. Lyrica was sent to your pharmacy, discuss this with your primary care doctor. Pending Studies at Discharge: No Stand-Alone Forms: My [facility] [employer], Smoking Cessation Medications and DC Order Prescriptions: New pregabalin [Lyrica] 50 mg Capsule 50 mg PO HS Qty: 10 RF: 0 potassium chloride [Klor-Con M20] 20 mEq Tablet,Er Particles/Crystals 20 meq PO QAM Qty: 10 RF: 0 Continued methylprednisolone 4 mg tablets,dose pack See Rx Instructions .ROUTE .COMPLEX Qty: 21 RF: 0 hydroxyzine pamoate [Vistaril] 25 mg capsule 25 mg PO Q8H PRN (Reason: anxiety) 5 Days Qty: 15 RF: 0 sotalol 80 mg tablet 80 mg PO BID RF: 0 metoprolol succinate 100 mg tablet extended release 24 hr 100 mg PO BID RF: 0 warfarin 2.5 mg tablet 1.25 - 2.5 mg PO UD RF: 0 aspirin [Aspir-81] 81 mg Tablet,Delayed Release (Dr/Ec) 81 mg PO DAILY RF: 0 spironolactone 25 mg tablet 12.5 mg PO DAILY RF: 0 lorazepam 0.5 mg tablet 0.5 mg PO TID PRN (Reason: Anxiety) RF: 0 furosemide [Lasix] 80 mg Tablet 80 mg PO 3XWK PRN (Reason: Edema) RF: 0 furosemide [Lasix] 80 mg Tablet 80 mg PO DAILY RF: 0 diphenhydramine HCl [Benadryl] 25 mg Capsule 25 mg PO Q6H PRN (Reason: allergies) RF: 0 ferrous sulfate [iron] 325 mg (65 mg iron) Tablet 325 mg PO HS RF: 0 nitroglycerin 0.4 mg tablet, sublingual 0.4 mg sublingual UD PRN (Reason: Chest Pain) RF: 0 docusate sodium [Colace] 100 mg Capsule 300 mg PO DAILY RF: 0 mometasone [Nasonex] 50 mcg/actuation [place],Non-Aerosol 2 spray INTRANASAL DAILY RF: 0 epinephrine [EpiPen] 0.3 mg/0.3 mL Auto-Injector 0.3 mg IM UD PRN (Reason: Allergic Reaction) RF: 0 loratadine 10 mg Tablet 10 mg PO HS RF: 0 Centrum Silver Tablet 1 tab PO DAILY RF: 0 rosuvastatin [Crestor] 10 mg Tablet 10 mg PO HS RF: 0 omeprazole 20 mg Tablet,Delayed Release (Dr/Ec) 20 mg PO DAILY RF: 0 Biofreeze 0.2-3.5 % Gel 1 applic TOPICAL BID PRN (Reason: Pain) RF: 0 Azo Cranberry 250 mg Tablet,Chewable 250 mg PO TID PRN (Reason: BLADDER PAIN) RF: 0 Caltrate + D3 Plus Minerals 300 mg-800 unit -25 mg-0.5 mg Tablet 1 tab PO BID RF: 0 magnesium oxide 400 mg magnesium Tablet 400 mg PO DAILY RF: 0 Discontinued duloxetine 20 mg capsule,delayed release(DR/EC) 20 mg PO QPM RF: 0 losartan 25 mg tablet 25 mg PO DAILY RF: 0 Discharge Orders: Discharge Order (Routine); Ordered 02/17/21 Ordered By: Rafael Keller Admission Data Admit Date/Time: 02/13/21 03:30 Attending Provider: Rafael Keller Admit Provider: Josh Richey Primary Care Provider: Regan Ceja Other Providers: Josh Richey ; [place] ; Ella Bennett
[2021-02-18] MEDS ORDERED: POTASSIUM CHLORIDE CRTAB 20 MEQ TABCR PO SCH (09:00)
--- NOTE | 2021-02-24 13:37 | Coding Query ---
A supporting diagnosis is required for the test/procedure performed on this patient in order for us to be reimbursed by the patient's insurance. Please provide a supporting diagnosis for the following test/procedure listed below next to the test name along with your signature. *If there is no additional diagnosis for this patient that would support the following test/procedure please document that below next to the test/procedure. Test(s)/Procedure(s) that require a supporting diagnosis: Folic Acid DIAGNOSIS: anemia Vitamin B12 DIAGNOSIS: anemia Provider Signature: JNO Date: 02/24/21 Thank you Bhavya Cao Health Information Management Once completed, please kindly fax back to [phone] For questions please call [phone] ALBERTINA
== END 2021-02-17 12:24 | disposition home health service (06) ==
LOC: ED 20:59 → SUATTDRO 02-13 03:30 → INTOOBSV 02-13 03:30 → 2N 02-13 03:30 → 2W 02-14 21:53

== ENCOUNTER 2021-03-24 13:17 | Inpatient (IN) ==
[2021-03-24] MEDS ORDERED: ERTAPENEM SODIUM 10 ML IV STA (13:40)
--- NOTE | 2021-03-24 14:17 | Communication Note ---
Date of Service: March 24, 2021 This patient was seen in concert with Dr. Gallagher and we discussed and agreed upon the history, physical, assessment, and plan. See attending's note for details. Resident Activity Tracking Resident Involvement: Resident Care Provided Care Provided: Adult ED
[2021-03-24 14:58] LABS: Basophils # (auto) 0.09 K/uL (0-0.2); Eosinophils # (auto) 0.28 K/uL (0-0.5); Hematocrit (blood only) 28.7 % (37-47); Hemoglobin 8.4 g/dL (12.0-16.0); Immature Granulocytes # (auto) 0.02 K/uL (0.00-0.02); Immature Granulocytes % (auto) 0.2 %; Lymphocytes # (auto) 1.19 K/uL (1.2-3.4); Lymphocytes % (auto) 12.7 %; Mean Corpuscular Hemoglobin 28.2 pg (25-34); Mean Corpuscular Hgb Conc 29.3 g/dL (32-36); Mean Corpuscular Volume 96.3 fL (80-100); Mean Platelet Volume 11.8 fL (7.4-10.4); Monocytes # (auto) 0.66 K/uL (0.11-0.59); Monocytes % (auto) 7.1 %; Neutrophils # (auto) 7.12 K/uL (1.4-6.5); Platelet Count 472 K/uL (130-400); RDW Coefficient of Variation 14.9 % (11.5-14.5); RDW Standard Deviation 51.7 fL (36.4-46.3); Red Blood Count 2.98 M/uL (4.2-5.4); White Blood Count 9.36 K/uL (4.8-10.8)
--- NOTE | 2021-03-24 15:02 | History & Physical Report ---
Date of Service March 24, 2021 Assessment & Plan (1) UTI due to extended-spectrum beta lactamase (ESBL) producing Escherichia coli: (2) Generalized weakness: (3) Anemia: (4) CAD (coronary artery disease) of bypass graft: (5) Paroxysmal atrial fibrillation: (6) Replacement of aortic valve: (7) Tachycardia-bradycardia syndrome: (8) CKD (chronic kidney disease) stage 2, GFR 60-89 ml/min: (9) Essential thrombocythemia: (10) HTN (hypertension): (11) HLD (hyperlipidemia): (12) DVT prophylaxis: This is an 86 yr old F who has a significant PMH of CAD with hx of CABG and stenting, PAF anticoagulated on warfarin and rhythm controlled on sotalol, Chronic HFpEF, SSS s/p PPM, HTN, HLD, GAVIN, s/p Bovine AVR, RLS, asymptomatic carotid artery stenosis, hx of freq utis, essential thrombocythemia followed by hematology, ckd-3 who presents to ED 2/2 to UTI like sx and + outpt culture for ESBL. Generalized weakness likely related to UTI as well as symptomatic anemia ESBL UTI continue IV ertapenem day 1 pt sx included initial dysuria, hematuria, and only urgency now consider ID consult Anemia Iron studies done 1 month ago revealed ferritin 21.5, iron 21, TIBC 403, normal folic acid and B12 She is on iron supplement once daily She received 1unit PRBC during last admission Blood consent obtained, Repeat iron studies Per patient and outpatient records she has been having intermittent hematuria microscopic and gross for the past 2 years She has been following [facility] and is scheduled for cystoscopy at the end of March FOBT stool, negative last admission Last C-scope was 2012 with polypectomy She is on Coumadin for PAF monitor cbc consider IV Venofer given low normal iron type and cross, hold 1 unit if hgb < 8 SSS s/p PPM Paroxysmal Afib Continue metoprolol and Sotalol Continue Coumadin INR 2.5 today. regimen 1.25 mg Monday, 2.5 mg all other days Continue monitor PT/INR CAD s/p stenting/CABG hx of AVR Continue aspirin, statin and metoprolol Stable Chronic HFpEF No sign of fluid overload Continue Lasix 80mg daily, metoprolol, aldactone Continue monitor BMP daily weight, strict I and O RLS continue lyrica CKD-3 baseline cr 1.0-1.2 bun 33, cr 1.14 monitor DVT prophylaxis. Coumadin INR 2.5 PCP: Full code PCP: Brenna Pt was seen and examined in collaboration with Dr. Melendez, please see addendum History of Present Illness Chief Complaint: Referred to ED 2/2 to ESBL UTI Primary Care Provider: Regan Ceja, DO This is an 86 yr old F who has a significant PMH of CAD with hx of CABG and stenting, PAF anticoagulated on warfarin and rhythm controlled on sotalol, Chronic HFpEF, SSS s/p PPM, HTN, HLD, GAVIN, s/p Bovine AVR, RLS, asymptomatic carotid artery stenosis, hx of freq utis, essential thrombocythemia followed by hematology, ckd-3 who presents to ED 2/ to UTI like sx and + outpt culture for ESBL. Of significance patient recently hospitalized 02/13 to 02/17/2021 secondary to weakness, anemia requiring 1 unit of PRBC, ESBL UTI treated with IV ertapenem. She was seen in clinic on 03/16 for routine follow-up. At this visit she was complaining of UTI-like symptoms including dysuria. She was prescribed Cipro and a culture was pending. Culture returned today positive for ESBL and transferred to ED for further evaluation and IV antibiotics. Today she Noller complains of dysuria but generally feels weak and complains of, "tremors." She also complains of urinary urgency, but attributes this to her prolapsed rectum. She denies any fever, chills, sweats, lightheadedness, dizziness, chest pain, shortness of breath, cough, URI symptoms, nausea, vomiting, abdominal pain, dysuria, hematuria, melena or hematochezia. In ED patient remained hemodynamically stable. Her INR was therapeutic at 2.5. Her H&H was 8.4 and 28.7, platelet 472. Her BMP is pending at this time. Allergies Allergy/AdvReac Type Severity Reaction Status Date / Time iodine Allergy Intermediate itching Verified 03/24/21 14:59 amiodarone Allergy Mild UNSURE Verified 03/24/21 14:59 etodolac Allergy Mild Unknown Verified 03/24/21 14:59 Sulfa (Sulfonamide Allergy Mild Unknown Verified 03/24/21 14:59 Antibiotics) gabapentin AdvReac Mild sedation Verified 03/24/21 14:59 Penicillins AdvReac Mild YEAST INF Verified 03/24/21 14:59 simvastatin AdvReac Unknown CAN'T Verified 03/24/21 14:59 REMEMBER Home Medications Medication Instructions Recorded Confirmed Type Caltrate + D3 Plus Minerals 1 tab PO BID 01/24/21 03/24/21 History aspirin 81 mg PO DAILY 01/24/21 03/24/21 History camphor-menthol 1 applic TOPICAL BID PRN 01/24/21 03/24/21 History diphenhydramine HCl [Benadryl] 25 mg PO Q6H PRN 01/24/21 03/24/21 History docusate sodium [Colace] 500 mg PO DAILY 01/24/21 03/24/21 History epinephrine [EpiPen] 0.3 mg IM UD PRN 01/24/21 03/24/21 History ferrous sulfate [iron] 325 mg PO HS 01/24/21 03/24/21 History furosemide [Lasix] 80 mg PO 3XWK PRN 01/24/21 03/24/21 History furosemide [Lasix] 80 mg PO DAILY 01/24/21 03/24/21 History loratadine 10 mg PO HS 01/24/21 03/24/21 History lorazepam 0.5 mg PO TID PRN 01/24/21 03/24/21 History magnesium oxide 400 mg PO DAILY 01/24/21 03/24/21 History metoprolol succinate 100 mg PO BID 01/24/21 03/24/21 History mometasone [Nasonex] 2 spray INTRANASAL DAILY 01/24/21 03/24/21 History qssvqxgfnjan-avzcbjun-rsjrow 1 tab PO DAILY 01/24/21 03/24/21 History nitroglycerin 0.4 mg SUBLINGUAL UD PRN 01/24/21 03/24/21 History omeprazole 20 mg PO DAILY 01/24/21 03/24/21 History rosuvastatin [Crestor] 10 mg PO HS 01/24/21 03/24/21 History sotalol 80 mg PO BID 01/24/21 03/24/21 History spironolactone 12.5 mg PO DAILY 01/24/21 03/24/21 History warfarin 1.25 mg PO MOWEFR 01/24/21 03/24/21 History hydroxyurea 500 mg PO 3XWK 03/24/21 03/24/21 History losartan 25 mg PO DAILY 03/24/21 03/24/21 History pregabalin [Lyrica] 50 mg PO BID 03/24/21 03/24/21 History warfarin 2.5 mg PO SUTUTHSA 03/24/21 03/24/21 History Past Med/Surg History Medical History (Updated 03/24/21 @ 15:39 by Nahomy Tai PA-C) Abrasion of face AF (atrial fibrillation) (02/28/14) Angioedema (Unknown) Atrial fibrillation with rapid ventricular response CAD (coronary artery disease) of bypass graft (02/28/14) Carotid artery occlusion (Unknown) Chest pain (07/20/14) Chest pain Chronic ischemic heart disease (Unknown) CKD (chronic kidney disease) stage 2, GFR 60-89 ml/min Dermatitis Essential thrombocythemia Fall HLD (hyperlipidemia) HTN (hypertension) No pertinent family history Paroxysmal atrial fibrillation (Unknown) Replacement of aortic valve (Unknown) [place] [place] 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) Surgical History (Updated 03/24/21 @ 14:58 by Nahomy Tai PA-C) Coronary artery bypass grafting (Unknown) [place] [place] VARGHESE to LAD SVG's to diagonal, obtuse marginal, RCA " History of colonoscopy with polypectomy History of cystoscopy History of tubal ligation Implantation of aortic valve prosthesis or synthetic device (Unknown) Placement of stent in coronary artery (Unknown) "[facility] December 2006 " Stented coronary artery (Unknown) Total abdominal hysterectomy with bilateral salpingo-oophorectomy (Unknown) Family History (Updated 03/24/21 @ 14:59 by Nahomy Tai PA-C) Father Prostate cancer Mother Diabetes Sister Coronary heart disease Social History Smoking Status: Never smoker Second Hand Exposure: No; Hx Alcohol Use: No Hx Substance Use: No Preferred Language: [place] Communication Ability: Effective Visual Impairment: No Limitations Hearing Ability: Normal 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 Required: No Beliefs That Will Affect Care: None Current Living Situation: Alone Feels Safe at Home: Yes Assistive Devices: Glasses, Hearing Aid - Bilateral and Walker Review of Systems Review of Systems: All systems reviewed & are unremarkable except as noted in HPI & below Physical Exam Physical Exam: Constitutional: WD/WN, vitals as above, NAD, sitting up in bed, pleasant, conversing easily Head: Normocephalic, Atraumatic Eyes: PERRL, conjunctivae normal, anicteric sclerae ENMT: external ear and nose normal, oropharynx normal Neck: trachea midline, no thyromegaly normal visual inspection Respiratory: normal respiratory effort, lungs clear to auscultation, no wheeze, rales, rhonchi. Normal insp/exp effort, no accessory muscle use Cardiovascular: RRR, no murmur, + lower edema Vessels: no JVD or carotid bruit Chest: normal inspection of chest Abdomen: normal bowel sounds, soft, nontender, no hepatosplenomegaly Musculoskeletal: no cyanosis or clubbing, extremities motor strength 5/5 Skin: no rashes, warm and dry normal turgor Neurologic: PERRL, EOMI, accommodation nl, no face palsy, no dysarthria CN's II-XI intact bilaterally and moves all extremities Psychiatric: A+Ox3, euthymic affect Lymphatic: no cervical or axillary lymphadenopathy : deferred Results & Data Results & Data ([facility]) Vital Signs (Past 12 Hours) Vital Signs Temp Pulse Resp BP Pulse Ox 03/24/21 13:20 36.5 C 83 18 155/88 H 96 COVID-19 Results Results COVID-19 Adm Lab Results: RBC 2.98 M/uL (4.2-5.4) L 03/24/21 WBC 9.36 K/uL (4.8-10.8) 03/24/21 Hgb 8.4 g/dL (12.0-16.0) L 03/24/21 Hct 28.7 % (37-47) L 03/24/21 Plt Count 472 K/uL (130-400) H 03/24/21 Neutrophils (%) (Auto) 76.0 % 03/24/21 Lymphocytes (%) (Auto) 12.7 % 03/24/21 Monocytes # (Auto) 0.66 K/uL (0.11-0.59) H 03/24/21 Eosinophils # (Auto) 0.28 K/uL (0-0.5) 03/24/21 Immature Granulocyte % (Auto) 0.2 % 03/24/21 Neutrophils # (Auto) 7.12 K/uL (1.4-6.5) H 03/24/21 Lymphocytes # (Auto) 1.19 K/uL (1.2-3.4) L 03/24/21 Monocytes # (Auto) 0.66 K/uL (0.11-0.59) H 03/24/21 Eosinophils # (Auto) 0.28 K/uL (0-0.5) 03/24/21 Basophils # (Auto) 0.09 K/uL (0-0.2) 03/24/21 Immature Granulocyte # (Auto) 0.02 K/uL (0.00-0.02) 03/24/21 Na 141 mmol/L (136-145) 03/24/21 K Pending 03/24/21 Cl 105 mmol/L (98-107) 03/24/21 CO2 31 mmol/L (21-32) 03/24/21 Anion Gap 5.0 (3-11) 03/24/21 BUN 33 mg/dl (7-18) H 03/24/21 Creatinine 1.14 mg/dl (0.6-1.2) 03/24/21 BUN/Creatinine Ratio 29.2 (10-20) H 03/24/21 Glucose Level 93 mg/dl (70-99) 03/24/21 Ca 8.5 mg/dl (8.5-10.1) 03/24/21 PTT 34.1 Seconds (21.0-31.0) H 03/24/21 INR 2.5 (0.9-1.1) H 03/24/21 COVID-19 PCR Pending 03/24/21 Code Status & VTE Plan Code Status Full Code VTE Prophylaxis Plan VTE Prophylaxis will be ordered: Yes Supervising Physician Co-Signing Physician Notes I saw this patient with the physician employee relations assistant, I participated in the history, physical, review of systems, and physical exam. I reviewed the medications with the patient and the physician employee relations assistant and helped reconcile the medications. I helped take a detailed family and social history as well. I formulated the assessment and plan personally with the physician employee relations assistant and went over it with the patient. ROS-No Headache, No Visual Changes, No Nausea, No Vomiting, No Fever, No Chills, No Neck Pain or Stiffness, No Chest Pain, No Palpitations, No SOB, No TUCKER, No Cough, No Sputum, No Wheezing, No Abdominal Pain, No Diarrhea, No Hematemesis, No Hemoptysis, No Unexpected Weight Loss, No Flank pain, No Melena, No Hematochezia, No Frequency, No Urgency, No Burning, No Hematuria, No Rashes, No Diaphoresis. Appetite is Normal Physical Exam Gen-AAO x 3, NAD, Afebrile Head-NCAT, EOMI, PERRLA, Anicteric Sclera, No Posterior Pharyngeal Erythema Neck-Supple, No JVD, No Thyromegaly, No Masses, No LAD, No Bruits Lungs-Clear to Auscultation Bilaterally, No Rales, No Rhonchi, No Wheezing, No Crepitus Chest-No S4, +S1, +S2, No S3, No Murmurs, No Rubs, No Gallops, No Ectopy Abdomen-Soft, Bowel Sounds Present, Non Tender, Non Distended, No Hepatomegaly, No Splenomegaly, No Palpable Masses, No Rebound, No Rigidity, No Guarding Musculoskeletal-Full Range of Motion Bilaterally, No CVAT Extremities-No Cyanosis, No Clubbing, No Edema Nuero-Cranial Nerves II-XII grossly intact, Motor WNL, DTRs WNL, Strength WNL, Non Focal Psych-Normal Mood
[2021-03-24 15:12] LABS: INR 2.5 (0.9-1.1); Partial Thromboplastin Ratio 1.3; Partial Thromboplastin Time 34.1 Seconds (21.0-31.0)
[2021-03-24 15:44] LABS: BUN Creatinine Ratio 29.2 (10-20); Calcium 8.5 mg/dl (8.5-10.1); Creatinine Clr Calc Pharmacy 34.3 ml/min; Est GFR (African American) 50.8 ml/min; Est GFR (Non-African American) 43.8 ml/min
[2021-03-24 15:58] LABS: Appearance Urine Turbid (Clear); Bacteria Urine Automated 4+ (Negative); Bilirubin Urine Negative (Negative); Blood Urine Trace (Negative); Color Urine Yellow; Epithelial Cell Urine Auto >30 /lpf (0-5); Glucose Urine UA Negative (Negative); Ketones Urine Trace (Negative); Leukocyte Esterase Urine 3+ (Negative); Nitrite Urine Negative (Negative); Protein Urine 1+ (Negative); RBC Urine Automated 0-4 /hpf (0-4); Specific Gravity Urine 1.017 (1.000-1.030); Urobilinogen Urine Negative (Negative); WBC Urine Automated >30 /hpf (0-5)
[2021-03-24] MEDS ORDERED: WARFARIN SOD 1.25 MG TAB PO SCH (17:02)
[2021-03-24] MEDS ORDERED: ONDANSETRON INJ 2 MG/ML 2 ML VIAL IV PRN (17:02)
[2021-03-24] MEDS ORDERED: SODIUM CHLORIDE 0.9% 250 ML IV PRN (17:02)
[2021-03-24] MEDS ORDERED: ALUMINUM/MAGNESIUM SUSP 30 ML UDC PO PRN (17:02)
[2021-03-24] MEDS ORDERED: MAGNESIUM HYDROXIDE SUSP 30 ML UDC PO PRN (17:02)
[2021-03-24] MEDS ORDERED: CONSULT PHARMACY PRN (17:16)
--- NOTE | 2021-03-24 17:20 | Emergency Department Note ---
History of Present Illness General Chief complaint: Urinary Symptoms Stated complaint: UTI SX,REF BY DOC FOR IV TREATMENT Time Seen by Provider: 03/24/21 13:39 History of Present Illness Provider complaint: UTI Onset (ago): week(s) 2 Associated symptoms: + weakness; no chest pain, no fever/chills, no headaches and no nausea/vomiting 86-year-old female presents emergency department for UTI. Patient was diagnosed with a UTI approximately 2 weeks ago. She was receiving outpatient Cipro. Patient was diagnosed with UTI after she was experiencing symptoms of dysuria and fatigue. No fevers. No falls. No chest pain difficulty breathing. No headaches. Patient received a call from PCP which stated that her urine culture was positive for an antibiotic that needed IV antibiotics and told to come to the hospital. Home Medications Medication Instructions Recorded Confirmed Type Caltrate + D3 Plus Minerals 1 tab PO BID 01/24/21 03/24/21 History aspirin 81 mg PO DAILY 01/24/21 03/24/21 History camphor-menthol 1 applic TOPICAL BID PRN 01/24/21 03/24/21 History diphenhydramine HCl [Benadryl] 25 mg PO Q6H PRN 01/24/21 03/24/21 History docusate sodium [Colace] 500 mg PO DAILY 01/24/21 03/24/21 History epinephrine [EpiPen] 0.3 mg IM UD PRN 01/24/21 03/24/21 History ferrous sulfate [iron] 325 mg PO HS 01/24/21 03/24/21 History furosemide [Lasix] 80 mg PO 3XWK PRN 01/24/21 03/24/21 History furosemide [Lasix] 80 mg PO DAILY 01/24/21 03/24/21 History loratadine 10 mg PO HS 01/24/21 03/24/21 History lorazepam 0.5 mg PO TID PRN 01/24/21 03/24/21 History magnesium oxide 400 mg PO DAILY 01/24/21 03/24/21 History metoprolol succinate 100 mg PO BID 01/24/21 03/24/21 History mometasone [Nasonex] 2 spray INTRANASAL DAILY 01/24/21 03/24/21 History xuactttdzybc-gcjcsxhe-frzzoe 1 tab PO DAILY 01/24/21 03/24/21 History nitroglycerin 0.4 mg SUBLINGUAL UD PRN 01/24/21 03/24/21 History omeprazole 20 mg PO DAILY 01/24/21 03/24/21 History rosuvastatin [Crestor] 10 mg PO HS 01/24/21 03/24/21 History sotalol 80 mg PO BID 01/24/21 03/24/21 History spironolactone 12.5 mg PO DAILY 01/24/21 03/24/21 History warfarin 1.25 mg PO MOWEFR 01/24/21 03/24/21 History hydroxyurea 500 mg PO 3XWK 03/24/21 03/24/21 History losartan 25 mg PO DAILY 03/24/21 03/24/21 History pregabalin [Lyrica] 50 mg PO BID 03/24/21 03/24/21 History warfarin 2.5 mg PO SUTUTHSA 03/24/21 03/24/21 History Allergies Allergy/AdvReac Type Severity Reaction Status Date / Time iodine Allergy Intermediate itching Verified 03/24/21 14:59 amiodarone Allergy Mild UNSURE Verified 03/24/21 14:59 etodolac Allergy Mild Unknown Verified 03/24/21 14:59 Sulfa (Sulfonamide Allergy Mild Unknown Verified 03/24/21 14:59 Antibiotics) gabapentin AdvReac Mild sedation Verified 03/24/21 14:59 Penicillins AdvReac Mild YEAST INF Verified 03/24/21 14:59 simvastatin AdvReac Unknown CAN'T Verified 03/24/21 14:59 REMEMBER Past Med/Surg History Medical History Abrasion of face AF (atrial fibrillation) (02/28/14) Angioedema (Unknown) Atrial fibrillation with rapid ventricular response CAD (coronary artery disease) of bypass graft (02/28/14) Carotid artery occlusion (Unknown) Chest pain (07/20/14) Chest pain Chronic ischemic heart disease (Unknown) CKD (chronic kidney disease) stage 2, GFR 60-89 ml/min Dermatitis Essential thrombocythemia Fall HLD (hyperlipidemia) HTN (hypertension) No pertinent family history Paroxysmal atrial fibrillation (Unknown) Replacement of aortic valve (Unknown) "[facility] [place] 2005 [facility] " 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) Surgical History Coronary artery bypass grafting (Unknown) "[facility] [place] April 2006 VARGHESE to LAD SVG's to diagonal, obtuse marginal, RCA " History of colonoscopy with polypectomy History of cystoscopy History of tubal ligation Implantation of aortic valve prosthesis or synthetic device (Unknown) Placement of stent in coronary artery (Unknown) "[facility] December 2006 " Stented coronary artery (Unknown) Total abdominal hysterectomy with bilateral salpingo-oophorectomy (Unknown) Family History Father Prostate cancer Mother Diabetes Sister Coronary heart disease Social History Smoking Status: Never smoker Second Hand Exposure: No; Hx Alcohol Use: No Hx Substance Use: No Preferred Language: Portuguese Communication Ability: Effective Visual Impairment: No Limitations Hearing Ability: Normal 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: No Beliefs That Will Affect Care: None Current Living Situation: Alone Feels Safe at Home: Yes Assistive Devices: Glasses, Hearing Aid - Bilateral and Walker Review of Systems A total of 6 systems reviewed and were otherwise negative Physical Exam Vital Signs Vital Signs - 24 hr 03/24/21 13:20 Temperature 36.5 C Temperature Source Temporal Artery Scan Pulse Rate 83 Respiratory Rate 18 Respiratory Effort / Characteristics Non-Labored Respiratory Depth Normal Blood Pressure 155/88 H Blood Pressure Mean 110 Pulse Oximetry 96 Oxygen Delivery Method Room Air Sepsis Recent Fever Within 48 Hours No Sepsis New/Unexplained Change in Mental Status No Sepsis Action Taken by Nursing No Action Required Physical Exam GENERAL: She is oriented to person, place, and time. She appears well-developed and well-nourished. She does not appear distressed. HENT: Exam performed. -Head: Normocephalic and atraumatic. -Right Ear: External ear normal. No mastoid tenderness. -Left Ear: External ear normal. No mastoid tenderness. -Mouth/Throat: The oropharynx is clear and moist. No trismus in the jaw. No dental abscesses or uvula swelling. No oropharyngeal exudate or tonsillar abscesses. EYES: Conjunctivae and EOM are normal. Pupils are equal, round, and reactive to light. Right eye exhibits no discharge. Left eye exhibits no discharge. No scleral icterus. NECK: Normal range of motion. Neck supple. No JVD present. No spinous process tenderness present. No carotid bruit present. No rigidity. No tracheal deviation and normal range of motion present. No Brudzinski's sign and no Kernig's sign noted. CV: Normal rate, irregular rhythm, normal heart sounds and intact distal pulses. There is no peripheral edema. Palpable radial pulses bue. PULM/CHEST: Effort normal and breath sounds normal. No respiratory distress. No stridor. She has no wheezes. She has no rales. -Chest Wall: She exhibits no tenderness. ABD: The abdomen is soft. Bowel sounds are normal. She has no distension. No mass is present. There is no tenderness. There is no rebound, no guarding, no Singh's sign and no tenderness at McBurney's point. Rovsig negative MUSC/SKEL: Normal range of motion. There is no peripheral edema, tenderness or deformity. LYMPH: No cervical adenopathy. NEURO: She is alert and oriented to person, place, and time. She has normal strength. No cranial nerve deficit or sensory deficit. Coordination and gait normal. GCS eye subscore is 4. GCS verbal subscore is 5. GCS motor subscore is 6. Cerebellar tests wnl. SKIN: Skin is warm and dry. She is not diaphoretic. PSYCH: She has a normal mood and affect. Behavior is normal. Judgment and thought content normal. Course Course 1339: The patient was evaluated in room C10. A complete history and physical exam was performed Cardiac monitoring: An order was placed for continuous cardiac monitoring. The monitor shows a rate of 100 with atrial fibrilation rhythm Patient had a urine culture done at [facility] which showed ESBL E. coli susceptible to ertapenem. We will plan to the [facility] hospitalist team for IV antibiotics. Administered Medications Discontinued Medications Ertapenem (Invanz) 10 mls @ 2 mls/min IV NOW STA Stop: 03/24/21 13:44 Last Admin: 03/24/21 14:45 Dose: 2 mls/min Documented by: [id number] Medical Decision Making Laboratory Data Result diagrams: 03/24/21 14:41 03/24/21 14:41 Lab Results 03/24/21 03/24/21 03/24/21 Range/Units 14:41 14:41 14:41 WBC 9.36 (4.8-10.8) K/uL RBC 2.98 L (4.2-5.4) M/uL Hgb 8.4 L (12.0-16.0) g/dL Hct 28.7 L (37-47) % MCV 96.3 (80-100) fL MCH 28.2 (25-34) pg MCHC 29.3 L (32-36) g/dL RDW Std Deviation 51.7 H (36.4-46.3) fL RDW Coeff of Ge 14.9 H (11.5-14.5) % Plt Count 472 H (130-400) K/uL MPV 11.8 H (7.4-10.4) fL Immature Gran % (Auto) 0.2 % Neut % (Auto) 76.0 % Lymph % (Auto) 12.7 % [place] % (Auto) 7.1 % Eos % (Auto) 3.0 % Baso % (Auto) 1.0 % Neut # (Auto) 7.12 H (1.4-6.5) K/uL Lymph # (Auto) 1.19 L (1.2-3.4) K/uL [place] # (Auto) 0.66 H (0.11-0.59) K/uL Eos # (Auto) 0.28 (0-0.5) K/uL Baso # (Auto) 0.09 (0-0.2) K/uL Immature Gran # (Auto) 0.02 (0.00-0.02) K/uL PT (9.0-12.0) Seconds INR (0.9-1.1) APTT (21.0-31.0) Seconds PTT Ratio Sodium 141 (136-145) mmol/L Potassium (3.5-5.1) mmol/L Chloride 105 (98-107) mmol/L Carbon Dioxide 31 (21-32) mmol/L Anion Gap 5.0 (3-11) BUN 33 H (7-18) mg/dl Creatinine 1.14 (0.6-1.2) mg/dl Est Cr Clr Drug Dosing 34.3 ml/min Est GFR ( Amer) 50.8 ml/min Est GFR (Non-Af Amer) 43.8 ml/min BUN/Creatinine Ratio 29.2 H (10-20) Glucose 93 (70-99) mg/dl Lactate 1.2 (0.4-2.0) mmol/L Calcium 8.5 (8.5-10.1) mg/dl Urine Color Urine Appearance (Clear) Urine pH (4.5-7.5) Ur Specific [place] (1.000-1.030) Urine Protein (Negative) Urine Glucose (UA) (Negative) Urine Ketones (Negative) Urine Blood (Negative) Urine Nitrite (Negative) Urine Bilirubin (Negative) Urine Urobilinogen (Negative) Ur Leukocyte Esterase (Negative) Urine WBC (Auto) (0-5) /hpf Urine RBC (Auto) (0-4) /hpf U Hyaline Cast (Auto) (0-5) /lpf U Epithel Cells (Auto) (0-5) /lpf Urine Bacteria (Auto) (Negative) COVID-19 Eval Order SARS-CoV-2 (PCR) (Negative) 03/24/21 03/24/21 03/24/21 Range/Units 14:41 14:50 14:50 WBC (4.8-10.8) K/uL RBC (4.2-5.4) M/uL Hgb (12.0-16.0) g/dL Hct (37-47) % MCV (80-100) fL MCH (25-34) pg MCHC (32-36) g/dL RDW Std Deviation (36.4-46.3) fL RDW Coeff of Ge (11.5-14.5) % Plt Count (130-400) K/uL MPV (7.4-10.4) fL Immature Gran % (Auto) % Neut % (Auto) % Lymph % (Auto) % [place] % (Auto) % Eos % (Auto) % Baso % (Auto) % Neut # (Auto) (1.4-6.5) K/uL Lymph # (Auto) (1.2-3.4) K/uL [place] # (Auto) (0.11-0.59) K/uL Eos # (Auto) (0-0.5) K/uL Baso # (Auto) (0-0.2) K/uL Immature Gran # (Auto) (0.00-0.02) K/uL PT 24.0 H (9.0-12.0) Seconds INR 2.5 H (0.9-1.1) APTT 34.1 H (21.0-31.0) Seconds PTT Ratio 1.3 Sodium (136-145) mmol/L Potassium (3.5-5.1) mmol/L Chloride (98-107) mmol/L Carbon Dioxide (21-32) mmol/L Anion Gap (3-11) BUN (7-18) mg/dl Creatinine (0.6-1.2) mg/dl Est Cr Clr Drug Dosing ml/min Est GFR ( Amer) ml/min Est GFR (Non-Af Amer) ml/min BUN/Creatinine Ratio (10-20) Glucose (70-99) mg/dl Lactate (0.4-2.0) mmol/L Calcium (8.5-10.1) mg/dl Urine Color Yellow Urine Appearance Turbid A (Clear) Urine pH 5.0 (4.5-7.5) Ur Specific [place] 1.017 (1.000-1.030) Urine Protein 1+ H (Negative) Urine Glucose (UA) Negative (Negative) Urine Ketones Trace H (Negative) Urine Blood Trace H (Negative) Urine Nitrite Negative (Negative) Urine Bilirubin Negative (Negative) Urine Urobilinogen Negative (Negative) Ur Leukocyte Esterase 3+ H (Negative) Urine WBC (Auto) >30 H (0-5) /hpf Urine RBC (Auto) 0-4 (0-4) /hpf U Hyaline Cast (Auto) 1-5 (0-5) /lpf U Epithel Cells (Auto) >30 H (0-5) /lpf Urine Bacteria (Auto) 4+ H (Negative) COVID-19 Eval Order Covid19 at [facility] SARS-CoV-2 (PCR) (Negative) 03/24/21 Range/Units 14:50 WBC (4.8-10.8) K/uL RBC (4.2-5.4) M/uL Hgb (12.0-16.0) g/dL Hct (37-47) % MCV (80-100) fL MCH (25-34) pg MCHC (32-36) g/dL RDW Std Deviation (36.4-46.3) fL RDW Coeff of Ge (11.5-14.5) % Plt Count (130-400) K/uL MPV (7.4-10.4) fL Immature Gran % (Auto) % Neut % (Auto) % Lymph % (Auto) % [place] % (Auto) % Eos % (Auto) % Baso % (Auto) % Neut # (Auto) (1.4-6.5) K/uL Lymph # (Auto) (1.2-3.4) K/uL [place] # (Auto) (0.11-0.59) K/uL Eos # (Auto) (0-0.5) K/uL Baso # (Auto) (0-0.2) K/uL Immature Gran # (Auto) (0.00-0.02) K/uL PT (9.0-12.0) Seconds INR (0.9-1.1) APTT (21.0-31.0) Seconds PTT Ratio Sodium (136-145) mmol/L Potassium (3.5-5.1) mmol/L Chloride (98-107) mmol/L Carbon Dioxide (21-32) mmol/L Anion Gap (3-11) BUN (7-18) mg/dl Creatinine (0.6-1.2) mg/dl Est Cr Clr Drug Dosing ml/min Est GFR ( Amer) ml/min Est GFR (Non-Af Amer) ml/min BUN/Creatinine Ratio (10-20) Glucose (70-99) mg/dl Lactate (0.4-2.0) mmol/L Calcium (8.5-10.1) mg/dl Urine Color Urine Appearance (Clear) Urine pH (4.5-7.5) Ur Specific [place] (1.000-1.030) Urine Protein (Negative) Urine Glucose (UA) (Negative) Urine Ketones (Negative) Urine Blood (Negative) Urine Nitrite (Negative) Urine Bilirubin (Negative) Urine Urobilinogen (Negative) Ur Leukocyte Esterase (Negative) Urine WBC (Auto) (0-5) /hpf Urine RBC (Auto) (0-4) /hpf U Hyaline Cast (Auto) (0-5) /lpf U Epithel Cells (Auto) (0-5) /lpf Urine Bacteria (Auto) (Negative) COVID-19 Eval Order SARS-CoV-2 (PCR) NEGATIVE (Negative) MDM Narrative The patient was evaluated in room C10. A complete history and physical exam was performed Cardiac monitoring: An order was placed for continuous cardiac monitoring. The monitor shows a rate of 100 with atrial fibrilation rhythm Patient had a urine culture done at [facility] which showed ESBL E. coli susceptible to ertapenem. We will plan to the [facility] hospitalist team for IV antibiotics. Impression & Plan UTI due to extended-spectrum beta lactamase (ESBL) producing Escherichia coli Discharge Plan Visit Data Chief Complaint: Urinary Symptoms Stated Complaint: UTI SX,REF BY DOC FOR IV TREATMENT ED Provider: Jeff Gallagher ED Midlevel Provider: Branden Hickey Discharge Problem: UTI due to extended-spectrum beta lactamase (ESBL) producing Escherichia coli Patient Disposition: Admitted As Inpatient Discharge Instructions Interventions: ED Discharge Assessment Last Done: 03/24/21 16:30
[2021-03-24 17:53] LABS: Potassium 3.4 mmol/L (3.5-5.1)
[2021-03-24] MEDS: FUROSEMIDE 80 MG TAB PO SCH (18:02)
[2021-03-24 18:04] LABS: Ferritin 14.8 ng/ml (8-388)
[2021-03-24] MEDS: HYDROXYUREA 500 MG CAP PO SCH (18:07)
[2021-03-24 18:25] LABS: Folate (Folic Acid) > 20.00 ng/ml (>5.38); Vitamin B12 448 pg/ml (193-986)
[2021-03-24] MEDS: METOPROLOL SUCC 50MG EXT REL TAB PO SCH (20:21)
[2021-03-24] MEDS: SOTALOL HCL 80 MG TAB PO SCH (20:21)
[2021-03-24] MEDS: ROSUVASTATIN CALCIUM 10 MG TAB PO SCH (20:21)
[2021-03-24] MEDS: FERROUS SULFATE 325 MG TAB PO SCH (20:21)
[2021-03-24] MEDS: LORATADINE 10 MG TAB PO SCH (20:21)
[2021-03-24] MEDS ORDERED: PREGABALIN 50 MG CAP PO SCH (21:00)
[2021-03-24] MEDS ORDERED: POTASSIUM CHLORIDE CRTAB 20 MEQ TABCR PO STA (22:37)
[2021-03-24] MEDS: LORazepam 0.5 MG TAB PO PRN (23:35)
--- NOTE | 2021-03-25 05:54 | Communication Note ---
Date of Service: March 25, 2021 Patient requesting for increase in current Lyrica dose for uncontrolled RLS. No confusion as per RN. Increase Lyrica from 50 mg to 75 mg p.o. twice daily dosing. Will relay to AM provider.
[2021-03-25] MEDS: PREGABALIN 75 MG CAP PO SCH ×2 (06:17→21:15)
[2021-03-25 07:25] LABS: Basophils # (auto) 0.07 K/uL (0-0.2); Basophils % (auto) 0.9 %; Eosinophils # (auto) 0.29 K/uL (0-0.5); Eosinophils % (auto) 3.5 %; Hematocrit (blood only) 28.5 % (37-47); Hemoglobin 8.3 g/dL (12.0-16.0); Immature Granulocytes # (auto) 0.01 K/uL (0.00-0.02); Immature Granulocytes % (auto) 0.1 %; Lymphocytes # (auto) 0.98 K/uL (1.2-3.4); Mean Corpuscular Hemoglobin 27.9 pg (25-34); Mean Corpuscular Hgb Conc 29.1 g/dL (32-36); Mean Corpuscular Volume 95.6 fL (80-100); Mean Platelet Volume 11.3 fL (7.4-10.4); Monocytes # (auto) 0.56 K/uL (0.11-0.59); Monocytes % (auto) 6.8 %; Neutrophils # (auto) 6.29 K/uL (1.4-6.5); Neutrophils % (auto) 76.7 %; Platelet Count 558 K/uL (130-400); RDW Coefficient of Variation 14.8 % (11.5-14.5); RDW Standard Deviation 51.9 fL (36.4-46.3); Red Blood Count 2.98 M/uL (4.2-5.4)
[2021-03-25 07:38] LABS: INR 2.6 (0.9-1.1); Prothrombin Time 24.2 Seconds (9.0-12.0)
[2021-03-25 07:56] LABS: Albumin Level 3.1 gm/dl (3.4-5.0); BUN Creatinine Ratio 30.4 (10-20); Calcium 8.7 mg/dl (8.5-10.1); Creatinine Clr Calc Pharmacy 34.5 ml/min; Est GFR (African American) 51.3 ml/min; Est GFR (Non-African American) 44.3 ml/min; Potassium 3.2 mmol/L (3.5-5.1)
[2021-03-25 08:00] LABS: Albumin Globulin Ratio 0.8 (0.9-2); Bilirubin,Total 0.3 mg/dl (0.2-1); Globulin 3.8 gm/dl (2.5-4.0); Total Protein 6.9 gm/dl (6.4-8.2)
[2021-03-25] MEDS: SPIRONOLACTONE 12.5 MG TAB PO SCH (08:56)
[2021-03-25] MEDS: SOTALOL HCL 80 MG TAB PO SCH ×2 (08:56→21:18)
[2021-03-25] MEDS: METOPROLOL SUCC 50MG EXT REL TAB PO SCH ×2 (08:57→21:16)
[2021-03-25] MEDS: PANTOprazole 40 MG TAB PO SCH (08:57)
[2021-03-25] MEDS: CEROVITE ADV FORMULA TAB PO SCH (08:58)
[2021-03-25] MEDS: MAGNESIUM OXIDE 400 MG TAB PO SCH (08:59)
[2021-03-25] MEDS: LOSARTAN POTASSIUM 25 MG TAB PO SCH (08:59)
[2021-03-25] MEDS ORDERED: ASPIRIN 81 MG ECTAB PO SCH (09:00)
[2021-03-25] MEDS: DOCUSATE SODIUM 100 MG CAP PO SCH (09:00)
[2021-03-25] MEDS: FLUTICASONE PROPIONATE NA SPR 16 GM BTL NAE SCH (09:01)
[2021-03-25] MEDS: FERROUS SULFATE 325 MG TAB PO SCH ×2 (09:01→21:17)
[2021-03-25] MEDS: FUROSEMIDE 80 MG TAB PO SCH (09:12)
[2021-03-25] MEDS ORDERED: POTASSIUM CHLORIDE CRTAB 20 MEQ TABCR PO STA (09:29)
[2021-03-25] MEDS ORDERED: ERTAPENEM CONSULT ACTIVE PRN (10:54)
[2021-03-25] MEDS: ERTAPENEM SODIUM 1,000 MG in SODIUM CHLORIDE 0.9% 50 ML IV SCH (15:08)
[2021-03-25] MEDS ORDERED: WARFARIN SOD 2.5 MG TAB PO SCH (16:00)
--- NOTE | 2021-03-25 19:54 | Hospitalist Progress Note ---
Date of Service March 25, 2021 Assessment & Plan (1) UTI due to extended-spectrum beta lactamase (ESBL) producing Escherichia coli: (2) Generalized weakness: (3) Anemia: (4) CAD (coronary artery disease) of bypass graft: (5) Paroxysmal atrial fibrillation: (6) Replacement of aortic valve: (7) Tachycardia-bradycardia syndrome: (8) CKD (chronic kidney disease) stage 2, GFR 60-89 ml/min: (9) Essential thrombocythemia: (10) HTN (hypertension): (11) HLD (hyperlipidemia): (12) DVT prophylaxis: This is an 86 yr old F who has a significant PMH of CAD with hx of CABG and stenting, PAF anticoagulated on warfarin and rhythm controlled on sotalol, Chronic HFpEF, SSS s/p PPM, HTN, HLD, GAVIN, s/p Bovine AVR, RLS, asymptomatic carotid artery stenosis, hx of freq utis, essential thrombocythemia followed by hematology, ckd-3 who presents to ED 2/2 to UTI like sx and + outpt culture for ESBL. Generalized weakness likely related to UTI as well as symptomatic anemia Fall precaution ESBL UTI continue IV ertapenem day 1 Repeat Urine cx on admission grew Ecoli Continue IV Ertapenem to complete 7 days course Anemia Iron studies done 1 month ago revealed ferritin 21.5, iron 21, TIBC 403, normal folic acid and B12 She is on iron supplement once daily She received 1unit PRBC during last admission Per patient and outpatient records she has been having intermittent hematuria microscopic and gross for the past 2 years She has been following [facility] and is scheduled for cystoscopy at the end of March Last C-scope was 2012 with polypectomy She is on Coumadin for PAF Pt said that she felt better after last transfusion and would like to get transfused during the hospital course Continue monitor H/H SSS s/p PPM Paroxysmal Afib Continue metoprolol and Sotalol Continue Coumadin INR 2.6 today. Continue Coumadin Continue monitor PT/INR CAD s/p stenting/CABG hx of AVR Continue aspirin, statin and metoprolol Stable Chronic HFpEF No sign of fluid overload Continue Lasix 80mg daily, metoprolol, aldactone Continue monitor BMP daily weight, strict I and O RLS continue lyrica CKD-3 baseline cr 1.0-1.2 Creatinine 1.13 Stale DVT prophylaxis. Coumadin INR 2.6 Full code PCP: Brenna Admission and Anticipated Discharge Date Admission Date: March 24, 2021 Subjective Pt was seen and examined for follow up ESBL UTI Sitting in chair with no distress Pt said that she feels weak She said that last time when she got the transfusion, she felt good Denies any chest pain, palpitation, dizziness and SOB Review of Systems Review of Systems: All systems reviewed & are unremarkable except as noted in Subjective Physical Exam Physical Exam: General- No acute distress Head- atraumatic Eyes- PERRL, EOMI, ENT- oropharynx clear Neck- supple, no JVD Lungs- clear to auscultation Heart- regular rhythm; +murmur Abdomen- normal bowel sounds, soft, nontender Extremities- no calf tenderness Neuro- alert, oriented x 3; PERRL, EOMI; no facial palsy; no dysarthria Skin- warm & dry Results & Data Results & Data ([facility]) Vital Signs (Past 12 Hours) Vital Signs Temp Pulse Pulse Resp BP Pulse Ox 03/25/21 19:25 36.8 C 60 17 105/69 94 03/25/21 15:35 36.9 C 79 16 94/57 L 93 03/25/21 11:22 36.7 C 82 16 90/59 L 91 03/25/21 09:47 85
[2021-03-25] MEDS: ACETAMINOPHEN 325 MG TAB PO PRN (21:15)
[2021-03-25] MEDS: LORazepam 0.5 MG TAB PO PRN (21:15)
[2021-03-25] MEDS: ROSUVASTATIN CALCIUM 10 MG TAB PO SCH (21:17)
[2021-03-25] MEDS: LORATADINE 10 MG TAB PO SCH (21:17)
--- NOTE | 2021-03-26 06:31 | Communication Note ---
Date of Service: March 26, 2021 Notified by RN of positive FOBT Dark green tarry stool as per RN. No abdominal pain as per RN. AP UGIB IV PPI A.m. labs now Hold aspirin, Coumadin May need reversal of INR N.p.o. for now. GI consult if patient amenable. Will relay to AM provider.
[2021-03-26] MEDS ORDERED: PANTOPRAZOLE BOLUS/DRIP 1 EA IV STA (06:35)
[2021-03-26] MEDS ORDERED: PANTOprazole 80 MG in DEXTROSE 5% 100 ML IV ONE (07:00)
[2021-03-26 07:26] LABS: Basophils # (auto) 0.09 K/uL (0-0.2); Basophils % (auto) 1.2 %; Eosinophils # (auto) 0.39 K/uL (0-0.5); Hematocrit (blood only) 27.7 % (37-47); Lymphocytes # (auto) 1.15 K/uL (1.2-3.4); Lymphocytes % (auto) 14.8 %; Mean Corpuscular Hemoglobin 28.3 pg (25-34); Mean Corpuscular Hgb Conc 28.9 g/dL (32-36); Mean Corpuscular Volume 97.9 fL (80-100); Mean Platelet Volume 11.4 fL (7.4-10.4); Monocytes # (auto) 0.52 K/uL (0.11-0.59); Monocytes % (auto) 6.7 %; Neutrophils % (auto) 72.3 %; Platelet Count 525 K/uL (130-400); RDW Coefficient of Variation 15.1 % (11.5-14.5); RDW Standard Deviation 53.2 fL (36.4-46.3); Red Blood Count 2.83 M/uL (4.2-5.4); White Blood Count 7.75 K/uL (4.8-10.8)
[2021-03-26 07:30] LABS: INR 2.7 (0.9-1.1); Prothrombin Time 25.3 Seconds (9.0-12.0)
[2021-03-26 07:58] LABS: BUN Creatinine Ratio 29.9 (10-20); Calcium 8.6 mg/dl (8.5-10.1); Creatinine Clr Calc Pharmacy 31.2 ml/min; Est GFR (African American) 45.9 ml/min; Est GFR (Non-African American) 39.6 ml/min; Potassium 3.3 mmol/L (3.5-5.1)
[2021-03-26] MEDS: MAGNESIUM OXIDE 400 MG TAB PO SCH (08:16)
[2021-03-26] MEDS: FERROUS SULFATE 325 MG TAB PO SCH ×2 (08:16→20:59)
[2021-03-26] MEDS: CEROVITE ADV FORMULA TAB PO SCH (08:17)
[2021-03-26] MEDS: SOTALOL HCL 80 MG TAB PO SCH ×2 (08:17→20:58)
[2021-03-26] MEDS: LOSARTAN POTASSIUM 25 MG TAB PO SCH (08:17)
[2021-03-26] MEDS: METOPROLOL SUCC 50MG EXT REL TAB PO SCH ×2 (08:17→20:57)
[2021-03-26] MEDS: FLUTICASONE PROPIONATE NA SPR 16 GM BTL NAE SCH (08:18)
[2021-03-26] MEDS: PREGABALIN 75 MG CAP PO SCH ×2 (08:22→20:52)
[2021-03-26] MEDS: DOCUSATE SODIUM 100 MG CAP PO SCH (08:22)
--- NOTE | 2021-03-26 09:12 | Gastrointestinal Consultation ---
Date of Consultation March 26, 2021 Assessment & Plan (1) Dark stools: 86 year old female with dark, black stools, downtrending HGB, INR this AM 2.7 will arrange EGD today after FFP to evauate for UGI source of dark stools NPO FFP x 2 units Hold coumadin EGD this AM IV PPI BID No NSAIDs Thank you for allowing us to participate in the care of this patient. Please call with any acute changes, questions or concerns. Please see addendum below with additional recommendation from my supervising physician. Supervising Physician Co-Signing Physician Notes I saw and evaluated the patient. She presents for history of a urinary tract infection. We were consulted for evaluation of dark stool. The patient is on iron replacement as an outpatient. She denies having nausea or abdominal pain this afternoon. Physical examination Elderly female in no obvious distress No scleral icterus noted Impression patient presenting with dark stools likely related to ongoing iron use. Given the patient's history of 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 and slight drop in hemoglobin and hematocrit we are certainly happy to provide endoscopic evaluation to look for evidence of peptic ulcer disease. I discussed the risks and benefits of upper endoscopy with the patient to include bleeding, infection, perforation, pain, aspiration and need for follow-up studies. We would also recommend stool studies to screen for evidence of C. difficile infection History of Present Illness Reason for Consultation: dark stool anemia Requesting Physician: Donald Attending Physician: Ella Bennett MD History of Present Illness 86 year old female with history of CAD with hx of CABG and stenting, PAF anticoagulated on warfarin and rhythm controlled on sotalol, Chronic HFpEF, SSS s/p PPM, HTN, HLD, GAVIN, s/p Bovine AVR, RLS, asymptomatic carotid artery stenosis, hx of freq utis, essential thrombocythemia followed by hematology, ckd-3 who admitted with UTI, GI asked to evaluate for dark, black stools and dropping HGB. Pt was seen and evaluated, chart reviewed. Notes that she has been maintained on PO iron for quite some time. Since, she has had dark stools. however, over the past 1-2 days had had loose more frequent stools w/ dropping HGB. Labs in January showed HGB 10 and today 8. No BRB. No UGI symptoms. Allergies Allergy/AdvReac Type Severity Reaction Status Date / Time iodine Allergy Intermediate itching Verified 03/26/21 14:08 amiodarone Allergy Mild UNSURE Verified 03/26/21 14:08 etodolac Allergy Mild Unknown Verified 03/26/21 14:08 Sulfa (Sulfonamide Allergy Mild Unknown Verified 03/26/21 14:08 Antibiotics) gabapentin AdvReac Mild sedation Verified 03/26/21 14:08 Penicillins AdvReac Mild YEAST INF Verified 03/26/21 14:08 simvastatin AdvReac Unknown CAN'T Verified 03/26/21 14:08 REMEMBER Home Medications Medication Instructions Recorded Confirmed Type Caltrate + D3 Plus Minerals 1 tab PO BID 01/24/21 03/24/21 History aspirin 81 mg PO DAILY 01/24/21 03/24/21 History camphor-menthol 1 applic TOPICAL BID PRN 01/24/21 03/24/21 History diphenhydramine HCl [Benadryl] 25 mg PO Q6H PRN 01/24/21 03/24/21 History docusate sodium [Colace] 500 mg PO DAILY 01/24/21 03/24/21 History epinephrine [EpiPen] 0.3 mg IM UD PRN 01/24/21 03/24/21 History ferrous sulfate [iron] 325 mg PO HS 01/24/21 03/24/21 History furosemide [Lasix] 80 mg PO 3XWK PRN 01/24/21 03/24/21 History furosemide [Lasix] 80 mg PO DAILY 01/24/21 03/24/21 History loratadine 10 mg PO HS 01/24/21 03/24/21 History lorazepam 0.5 mg PO TID PRN 01/24/21 03/24/21 History magnesium oxide 400 mg PO DAILY 01/24/21 03/24/21 History metoprolol succinate 100 mg PO BID 01/24/21 03/24/21 History mometasone [Nasonex] 2 spray INTRANASAL DAILY 01/24/21 03/24/21 History ovwbpheepels-nlxvwljj-ilmkms 1 tab PO DAILY 01/24/21 03/24/21 History nitroglycerin 0.4 mg SUBLINGUAL UD PRN 01/24/21 03/24/21 History omeprazole 20 mg PO DAILY 01/24/21 03/24/21 History rosuvastatin [Crestor] 10 mg PO HS 01/24/21 03/24/21 History sotalol 80 mg PO BID 01/24/21 03/24/21 History spironolactone 12.5 mg PO DAILY 01/24/21 03/24/21 History warfarin 1.25 mg PO MOWEFR 01/24/21 03/24/21 History hydroxyurea 500 mg PO 3XWK 03/24/21 03/24/21 History losartan 25 mg PO DAILY 03/24/21 03/24/21 History pregabalin [Lyrica] 50 mg PO BID 03/24/21 03/24/21 History warfarin 2.5 mg PO SUTUTHSA 03/24/21 03/24/21 History Patient History Medical History Abrasion of face AF (atrial fibrillation) (02/28/14) Angioedema (Unknown) Atrial fibrillation with rapid ventricular response CAD (coronary artery disease) of bypass graft (02/28/14) Carotid artery occlusion (Unknown) Chest pain (07/20/14) Chest pain Chronic ischemic heart disease (Unknown) CKD (chronic kidney disease) stage 2, GFR 60-89 ml/min Dermatitis Essential thrombocythemia Fall HLD (hyperlipidemia) HTN (hypertension) No pertinent family history Paroxysmal atrial fibrillation (Unknown) Replacement of aortic valve (Unknown) "[facility] [place] 2005 Mary-Good " 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) Surgical History Coronary artery bypass grafting (Unknown) "[facility] [place] April 2006 VARGHESE to LAD SVG's to diagonal, obtuse marginal, RCA " History of colonoscopy with polypectomy History of cystoscopy History of tubal ligation Implantation of aortic valve prosthesis or synthetic device (Unknown) Placement of stent in coronary artery (Unknown) "[facility] December 2006 " Stented coronary artery (Unknown) Total abdominal hysterectomy with bilateral salpingo-oophorectomy (Unknown) Family History Father Prostate cancer Mother Diabetes Sister Coronary heart disease Social History Smoking Status: Never smoker Second Hand Exposure: No; Hx Alcohol Use: No Hx Substance Use: No Preferred Language: Mac[place] Communication Ability: Effective Visual Impairment: No Limitations Hearing Ability: Normal Investment Consultant Required: No Beliefs That Will Affect Care: None marital status: / Current Living Situation: Alone Feels Safe at Home: Yes Safety Concerns: Feels Safe At This Time Assistive Devices: Walker Review of Systems Review of Systems: All systems reviewed & are unremarkable except as noted in HPI & below Physical Exam Constitutional: well developed and well nourished; no acute distress Neck: trachea midline, no thyromegaly Respiratory: normal respiratory effort, lungs clear to auscultation Cardiovascular: Rate/Rhythm: regular rate and regular rhythm Gastrointestinal (Abdomen): normal bowel sounds, soft, nontender, no hepatosplenomegaly Results & Data ([facility]) Vital Signs (Past 12 Hours) Vital Signs Temp Pulse Pulse Resp BP Pulse Ox 03/26/21 06:32 36.5 C 76 18 119/76 92 03/26/21 03:05 36.6 C 73 16 111/65 95 03/26/21 01:12 78 03/25/21 22:04 36.7 C 87 15 107/69 95 Laboratory Results 03/26/21 03/26/21 03/26/21 Range/Units Unknown 06:54 06:54 WBC (4.8-10.8) K/uL RBC (4.2-5.4) M/uL Hgb (12.0-16.0) g/dL Hct (37-47) % MCV (80-100) fL MCH (25-34) pg MCHC (32-36) g/dL RDW Std Deviation (36.4-46.3) fL RDW Coeff of Ge (11.5-14.5) % Plt Count (130-400) K/uL MPV (7.4-10.4) fL Immature Gran % (Auto) % Neut % (Auto) % Lymph % (Auto) % [place] % (Auto) % Eos % (Auto) % Baso % (Auto) % Neut # (Auto) (1.4-6.5) K/uL Lymph # (Auto) (1.2-3.4) K/uL [place] # (Auto) (0.11-0.59) K/uL Eos # (Auto) (0-0.5) K/uL Baso # (Auto) (0-0.2) K/uL Immature Gran # (Auto) (0.00-0.02) K/uL PT 25.3 H (9.0-12.0) Seconds INR 2.7 H (0.9-1.1) Sodium 143 (136-145) mmol/L Potassium 3.3 L (3.5-5.1) mmol/L Chloride 105 (98-107) mmol/L Carbon Dioxide 33 H (21-32) mmol/L Anion Gap 4.0 (3-11) BUN 37 H (7-18) mg/dl Creatinine 1.24 H (0.6-1.2) mg/dl Est Cr Clr Drug Dosing 31.2 ml/min Est GFR ( Amer) 45.9 ml/min Est GFR (Non-Af Amer) 39.6 ml/min BUN/Creatinine Ratio 29.9 H (10-20) Glucose 101 H (70-99) mg/dl Calcium 8.6 (8.5-10.1) mg/dl Stool Occult Bld Scrn Positive A (Negative) 03/26/21 Range/Units 06:54 WBC 7.75 (4.8-10.8) K/uL RBC 2.83 L (4.2-5.4) M/uL Hgb 8.0 L (12.0-16.0) g/dL Hct 27.7 L (37-47) % MCV 97.9 (80-100) fL MCH 28.3 (25-34) pg MCHC 28.9 L (32-36) g/dL RDW Std Deviation 53.2 H (36.4-46.3) fL RDW Coeff of Ge 15.1 H (11.5-14.5) % Plt Count 525 H (130-400) K/uL MPV 11.4 H (7.4-10.4) fL Immature Gran % (Auto) 0.0 % Neut % (Auto) 72.3 % Lymph % (Auto) 14.8 % [place] % (Auto) 6.7 % Eos % (Auto) 5.0 % Baso % (Auto) 1.2 % Neut # (Auto) 5.60 (1.4-6.5) K/uL Lymph # (Auto) 1.15 L (1.2-3.4) K/uL [place] # (Auto) 0.52 (0.11-0.59) K/uL Eos # (Auto) 0.39 (0-0.5) K/uL Baso # (Auto) 0.09 (0-0.2) K/uL Immature Gran # (Auto) 0.00 (0.00-0.02) K/uL PT (9.0-12.0) Seconds INR (0.9-1.1) Sodium (136-145) mmol/L Potassium (3.5-5.1) mmol/L Chloride (98-107) mmol/L Carbon Dioxide (21-32) mmol/L Anion Gap (3-11) BUN (7-18) mg/dl Creatinine (0.6-1.2) mg/dl Est Cr Clr Drug Dosing ml/min Est GFR ( Amer) ml/min Est GFR (Non-Af Amer) ml/min BUN/Creatinine Ratio (10-20) Glucose (70-99) mg/dl Calcium (8.5-10.1) mg/dl Stool Occult Bld Scrn (Negative)
[2021-03-26] MEDS ORDERED: SODIUM CHLORIDE 0.9% 250 ML IV PRN (09:53)
[2021-03-26] MEDS: PANTOprazole 40 MG in DEXTROSE 5% 100 ML IV SCH ×3 (10:13→21:11)
--- NOTE | 2021-03-26 13:21 | Anesthesiology Consultation ---
Date of Service March 26, 2021 Assessment & Plan (1) Encounter for pre-operative examination: Chart Review Chart Review: Acceptable Risk for Surgery and Patient NOT seen in Pre Admission Testing Consults Requested none History Surgery Operation Date: 03/26/21 16:30 Proposed Procedures p Esophagogastroduodenoscopy Dr Donaldo Fulton, DO Height/Weight Height: 4 ft 11 in Weight: 84.3 kg Allergies Allergy/AdvReac Type Severity Reaction Status Date / Time iodine Allergy Intermediate itching Verified 03/24/21 14:59 amiodarone Allergy Mild UNSURE Verified 03/24/21 14:59 etodolac Allergy Mild Unknown Verified 03/24/21 14:59 Sulfa (Sulfonamide Allergy Mild Unknown Verified 03/24/21 14:59 Antibiotics) gabapentin AdvReac Mild sedation Verified 03/24/21 14:59 Penicillins AdvReac Mild YEAST INF Verified 03/24/21 14:59 simvastatin AdvReac Unknown CAN'T Verified 03/24/21 14:59 REMEMBER Medications Home Medications Medication Instructions Recorded Confirmed Last Taken Caltrate + D3 Plus Minerals 1 tab PO BID 01/24/21 03/24/21 02/12/21 aspirin 81 mg PO DAILY 01/24/21 03/24/21 03/24/21 10:00 camphor-menthol 1 applic TOPICAL BID PRN 01/24/21 03/24/21 Unknown diphenhydramine HCl [Benadryl] 25 mg PO Q6H PRN 01/24/21 03/24/21 Unknown docusate sodium [Colace] 500 mg PO DAILY 01/24/21 03/24/21 02/12/21 epinephrine [EpiPen] 0.3 mg IM UD PRN 01/24/21 03/24/21 Unknown ferrous sulfate [iron] 325 mg PO HS 01/24/21 03/24/21 02/11/21 furosemide [Lasix] 80 mg PO 3XWK PRN 01/24/21 03/24/21 Unknown furosemide [Lasix] 80 mg PO DAILY 01/24/21 03/24/21 03/23/21 loratadine 10 mg PO HS 01/24/21 03/24/21 02/11/21 lorazepam 0.5 mg PO TID PRN 01/24/21 03/24/21 Unknown magnesium oxide 400 mg PO DAILY 01/24/21 03/24/21 02/12/21 metoprolol succinate 100 mg PO BID 01/24/21 03/24/21 03/24/21 10:00 mometasone [Nasonex] 2 spray INTRANASAL DAILY 01/24/21 03/24/21 02/12/21 [id number]-bspspncx-[id number] 1 tab PO DAILY 01/24/21 03/24/21 02/12/21 nitroglycerin 0.4 mg SUBLINGUAL UD PRN 01/24/21 03/24/21 Unknown omeprazole 20 mg PO DAILY 01/24/21 03/24/21 03/24/21 10:00 rosuvastatin [Crestor] 10 mg PO HS 01/24/21 03/24/21 02/11/21 sotalol 80 mg PO BID 01/24/21 03/24/21 03/24/21 10:00 spironolactone 12.5 mg PO DAILY 01/24/21 03/24/21 03/24/21 10:00 warfarin 1.25 mg PO MOWEFR 01/24/21 03/24/21 02/11/21 hydroxyurea 500 mg PO 3XWK 03/24/21 03/24/21 Unknown losartan 25 mg PO DAILY 03/24/21 03/24/21 Unknown pregabalin [Lyrica] 50 mg PO BID 03/24/21 03/24/21 03/24/21 10:00 warfarin 2.5 mg PO SUTUTHSA 03/24/21 03/24/21 Unknown Active Medications Generic Name Dose Route Start Last Admin Trade Name Freq PRN Reason Stop Dose Admin Acetaminophen 650 mg 03/24/21 17:02 03/25/21 21:15 Acetaminophen 325 Mg Tab PO 04/23/21 17:01 650 mg Q4H PRN Administration Pain or Fever Aspirin 81 mg 03/25/21 09:00 03/25/21 09:00 Aspirin 81 Mg Ectab PO 04/24/21 08:59 81 mg DAILY DYLAN Administration Docusate Sodium 500 mg 03/25/21 09:00 03/26/21 08:22 Docusate Sodium 100 Mg Cap PO 04/24/21 08:59 500 mg DAILY DYLAN Administration Ferrous Sulfate 325 mg 03/24/21 21:00 03/26/21 08:16 Ferrous Sulfate 325 Mg Tab PO 04/23/21 20:59 325 mg BID DYLAN Administration Fluticasone Propionate 2 sprays 03/25/21 09:00 03/26/21 08:18 Fluticasone Propionate Na Spr 16 Gm Btl SAIRA 04/24/21 08:59 2 sprays DAILY DYLAN Administration Furosemide 80 mg 03/24/21 17:02 03/25/21 09:12 Furosemide 80 Mg Tab PO 04/23/21 17:01 Not Given DAILY DYLAN Hydroxyurea 500 mg 03/24/21 17:02 03/24/21 18:07 Hydroxyurea 500 Mg Cap PO 04/23/21 17:01 Not Given MoWeFr DYLAN Ertapenem 1,000 mg/ Sodium 60 mls @ 100 mls/hr 03/25/21 14:00 03/25/21 15:47 Chloride IV 04/03/21 13:59 Infused DAILY@1400 DYLAN Infusion Protocol Pantoprazole Sodium 40 mg/ 100 mls @ 20 mls/hr 03/26/21 06:45 03/26/21 10:13 Dextrose IV 04/25/21 06:44 8 mg/hr Q5H DYLAN 20 mls/hr Administration 8 MG/HR Loratadine 10 mg 03/24/21 21:00 03/25/21 21:17 Loratadine 10 Mg Tab PO 04/23/21 20:59 10 mg HS DYLAN Administration Lorazepam 0.5 mg 03/24/21 17:02 03/25/21 21:15 Lorazepam 0.5 Mg Tab PO 04/23/21 17:01 0.5 mg TID PRN Administration Anxiety Losartan Potassium 25 mg 03/25/21 09:00 03/26/21 08:17 Losartan Potassium 25 Mg Tab PO 04/24/21 08:59 25 mg DAILY DYLAN Administration Magnesium Oxide 400 mg 03/25/21 09:00 03/26/21 08:16 Magnesium Oxide 400 Mg Tab PO 04/24/21 08:59 400 mg DAILY DYLAN Administration Metoprolol Succinate 100 mg 03/24/21 21:00 03/26/21 08:17 Metoprolol Succ 50mg Ext Rel Tab PO 04/23/21 20:59 100 mg BID DYLAN Administration Multivitamins/Minerals 1 tab 03/25/21 09:00 03/26/21 08:17 Cerovite Adv Formula Tab PO 04/24/21 08:59 1 tab DAILY DYLAN Administration Pantoprazole Sodium 40 mg 03/25/21 09:00 03/25/21 08:57 Pantoprazole 40 Mg Tab PO 04/24/21 08:59 40 mg DAILY DYLAN Administration Protocol Pregabalin 75 mg 03/25/21 06:00 03/26/21 08:22 Pregabalin 75 Mg Cap PO 04/24/21 05:59 75 mg BID DYLAN Administration Rosuvastatin Calcium 10 mg 03/24/21 21:00 03/25/21 21:17 Rosuvastatin Calcium 10 Mg Tab PO 04/23/21 20:59 10 mg HS DYLAN Administration Sotalol HCl 80 mg 03/24/21 21:00 03/26/21 08:17 Sotalol Hcl 80 Mg Tab PO 04/23/21 20:59 80 mg BID DYLAN Administration Spironolactone 12.5 mg 03/25/21 09:00 03/25/21 08:56 Spironolactone 12.5 Mg Tab PO 04/24/21 08:59 12.5 mg DAILY DYLAN Administration Warfarin Sodium 2.5 mg 03/25/21 16:00 03/25/21 17:27 Warfarin Sod 2.5 Mg Tab PO 04/24/21 15:59 2.5 mg SuTuThSa@1600 DYLAN Administration Past Medical History Medical History Abrasion of face AF (atrial fibrillation) (02/28/14) Angioedema (Unknown) Atrial fibrillation with rapid ventricular response CAD (coronary artery disease) of bypass graft (02/28/14) Carotid artery occlusion (Unknown) Chest pain (07/20/14) Chest pain Chronic ischemic heart disease (Unknown) CKD (chronic kidney disease) stage 2, GFR 60-89 ml/min Dermatitis Essential thrombocythemia Fall HLD (hyperlipidemia) HTN (hypertension) No pertinent family history Paroxysmal atrial fibrillation (Unknown) Replacement of aortic valve (Unknown) "[facility] [place] 2005 Mary-Good " 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) Past Family History Family History Father Prostate cancer Mother Diabetes Sister Coronary heart disease Past Surgical History Surgical History Coronary artery bypass grafting (Unknown) "[facility] [place] April 2006 VARGHESE to LAD SVG's to diagonal, obtuse marginal, RCA " History of colonoscopy with polypectomy History of cystoscopy History of tubal ligation Implantation of aortic valve prosthesis or synthetic device (Unknown) Placement of stent in coronary artery (Unknown) "[facility] December 2006 " Stented coronary artery (Unknown) Total abdominal hysterectomy with bilateral salpingo-oophorectomy (Unknown) Social History Smoking Status: Never smoker Hx Alcohol Use: No Hx Substance Use: No Physical Exam Vital Signs Last Vital Signs Temp 36.8 C 03/26/21 12:05 Pulse 75 03/26/21 12:05 Resp 18 03/26/21 12:05 BP 117/79 03/26/21 12:05 Pulse Ox 93 03/26/21 12:05 Testing Laboratory Results 03/26/21 06:54 03/26/21 06:54 PT 25.3 Seconds (9.0-12.0) H 03/26/21 06:54 INR 2.7 (0.9-1.1) H 03/26/21 06:54 APTT 34.1 Seconds (21.0-31.0) H 03/24/21 14:41 Urine Color Yellow 03/24/21 14:50 Urine Appearance Turbid (Clear) A 03/24/21 14:50 Urine pH 5.0 (4.5-7.5) 03/24/21 14:50 Ur Specific [place] 1.017 (1.000-1.030) 03/24/21 14:50 Urine Protein 1+ (Negative) H 03/24/21 14:50 Urine Glucose (UA) Negative (Negative) 03/24/21 14:50 Urine Ketones Trace (Negative) H 03/24/21 14:50 Urine Nitrite Negative (Negative) 03/24/21 14:50 Ur Leukocyte Esterase 3+ (Negative) H 03/24/21 14:50 Urine WBC (Auto) >30 /hpf (0-5) H 03/24/21 14:50 Urine RBC (Auto) 0-4 /hpf (0-4) 03/24/21 14:50 U Hyaline Cast (Auto) 1-5 /lpf (0-5) 03/24/21 14:50 U Epithel Cells (Auto) >30 /lpf (0-5) H 03/24/21 14:50 Urine Bacteria (Auto) 4+ (Negative) H 03/24/21 14:50 Blood Type O Positive 03/24/21 17:19 Antibody Screen NEGATIVE 03/24/21 17:19 03/24/21 14:50 Urine Culture - Final Urine,Clean Catch Escherichia coli ESBL
--- NOTE | 2021-03-26 14:42 | Communication Note ---
Date of Service: March 26, 2021 The patient underwent upper endoscopy this afternoon. The examination showed no evidence of bleeding from the upper digestive tract. Recommendations Screen patient for C. difficile with a stool PCR Outpatient colonoscopy to be scheduled Please call with any questions or concerns during the remainder of the admission
--- NOTE | 2021-03-26 14:45 | GI REPORT ---
Patient Name: Shannon Cruz Procedure Date: 03/26/2021 2:28 PM Date of : 1935 Admit Type: Inpatient Age: 86 Gender: Female Attending MD: Kathe Fulton DO Procedure: Upper GI endoscopy Providers: Kathe Fulton DO Referring MD: MEME ROME Indications: Suspected upper gastrointestinal bleeding Medicines: Monitored Anesthesia Care Complications: No immediate complications. Estimated blood loss: Minimal. Estimated Blood Loss: Estimated blood loss was minimal. Procedure: Pre-Anesthesia Assessment: - Prior to the procedure, a History and Physical was performed, and patient medications, allergies and sensitivities were reviewed. The patient's tolerance of previous anesthesia was reviewed. - The risks and benefits of the procedure and the sedation options and risks were discussed with the patient. All questions were answered and informed consent was obtained. - Patient identification and proposed procedure were verified prior to the procedure by the physician, the nurse and the business office assistant. The procedure was verified in the procedure room. - Pre-procedure physical examination revealed no contraindications to sedation. - ASA Grade Assessment: III - A patient with severe systemic disease. - After reviewing the risks and benefits, the patient was deemed in satisfactory condition to undergo the procedure. - The anesthesia plan was to use monitored anesthesia care (MAC). - Immediately prior to administration of medications, the patient was re-assessed for adequacy to receive sedatives. - The heart rate, respiratory rate, oxygen saturations, blood pressure, adequacy of pulmonary ventilation, and response to care were monitored throughout the procedure. - The physical status of the patient was re-assessed after the procedure. After obtaining informed consent, the endoscope was passed under direct vision. Throughout the procedure, the patient's blood pressure, pulse, and oxygen saturations were monitored continuously. The Endoscope was introduced through the mouth, and advanced to the third part of duodenum. The upper GI endoscopy was accomplished without difficulty. The patient tolerated the procedure well. Findings: The examined esophagus was normal. The entire examined stomach was normal. The examined duodenum was normal. Impression: - Normal esophagus. - Normal stomach. - Normal examined duodenum. - No specimens collected. Recommendation: - Return patient to hospital sims for ongoing care. - Advance diet as tolerated. - Perform a colonoscopy at appointment to be scheduled, can be done as an outpatient unless circumstances jacket changer the weekend. Kathe Fulton D.O. Kathe Fulton, DO 03/26/2021 2:45:11 PM This report has been signed electronically. Note Initiated On: 03/26/2021 2:28 PM Number of Addenda: 0 I attest to the content of the Intraoperative Record and orders documented therein, exceptions below {[id number]}
[2021-03-26] MEDS ORDERED: PROPOFOL IV EMULSION 10 MG/ML 20 ML VIAL IV ONE (14:53)
[2021-03-26] MEDS ORDERED: LIDOCAINE 2% 2 ML VIAL/AMP(20MG/ML) INFIL ONE (14:53)
[2021-03-26] MEDS ORDERED: PHENYLEPHRINE 100MCG/ML 5ML SYR ONE (14:53)
--- NOTE | 2021-03-26 15:46 | Anesthesiology Progress Note ---
Date of Service March 26, 2021 Anesthesia Post Procedure Vital Signs Vital Signs: Temp Pulse Pulse Resp BP BP Pulse Ox 03/26/21 15:38 36.4 C L 73 18 137/80 97 03/26/21 15:18 71 16 112/67 96 03/26/21 15:04 72 16 120/78 95 03/26/21 14:50 79 16 107/71 95 03/26/21 14:12 36.2 C L 77 16 140/94 97 03/26/21 13:31 35 C L 74 16 133/83 03/26/21 13:20 36.5 C 71 18 134/86 92 03/26/21 12:05 36.8 C 75 18 117/79 93 03/26/21 11:49 36.9 C 73 18 114/78 93 03/26/21 11:33 36.9 C 63 18 100/66 95 03/26/21 11:15 36.6 C 78 16 112/65 94 03/26/21 06:32 36.5 C 76 18 119/76 92 03/26/21 03:05 36.6 C 73 16 111/65 95 03/26/21 01:12 78 03/25/21 22:04 36.7 C 87 15 107/69 95 03/25/21 19:25 36.8 C 60 17 105/69 94 Transfer of Care Handoff Completed per policy Notes Mental Status: alert / awake / arousable and participated in evaluation Nausea / Vomiting: adequately controlled Pain: adequately controlled Airway Patency, RR, SpO2: stable & adequate BP & HR: stable & adequate Hydration State: stable & adequate Anesthetic Complications: no major complications apparent and Pt Satisfied with anesthetic care
[2021-03-26] MEDS: ERTAPENEM SODIUM 1,000 MG in SODIUM CHLORIDE 0.9% 50 ML IV SCH (15:55)
[2021-03-26] MEDS: HYDROXYUREA 500 MG CAP PO SCH (18:28)
--- NOTE | 2021-03-26 19:17 | Hospitalist Progress Note ---
Date of Service March 26, 2021 Assessment & Plan (1) UTI due to extended-spectrum beta lactamase (ESBL) producing Escherichia coli: (2) Generalized weakness: (3) Anemia: (4) CAD (coronary artery disease) of bypass graft: (5) Paroxysmal atrial fibrillation: (6) Replacement of aortic valve: (7) Tachycardia-bradycardia syndrome: (8) CKD (chronic kidney disease) stage 2, GFR 60-89 ml/min: (9) Essential thrombocythemia: (10) HTN (hypertension): (11) HLD (hyperlipidemia): (12) DVT prophylaxis: This is an 86 yr old F who has a significant PMH of CAD with hx of CABG and stenting, PAF anticoagulated on warfarin and rhythm controlled on sotalol, Chronic HFpEF, SSS s/p PPM, HTN, HLD, GAVIN, s/p Bovine AVR, RLS, asymptomatic carotid artery stenosis, hx of freq utis, essential thrombocythemia followed by hematology, ckd-3 who presents to ED 2/2 to UTI like sx and + outpt culture for ESBL. Generalized weakness likely related to UTI as well as symptomatic anemia Continue PT/OT Fall precaution ESBL UTI continue IV ertapenem day 1 Repeat Urine cx on admission grew Ecoli Continue IV Ertapenem to complete 7 days course Anemia Pt has an episode of dark stool last night FOBT Positive Iron studies done 1 month ago revealed ferritin 21.5, iron 21, TIBC 403, normal folic acid and B12 She is on iron supplement once daily She received 1unit PRBC during last admission Per patient and outpatient records she has been having intermittent hematuria microscopic and gross for the past 2 years She has been following [facility] and is scheduled for cystoscopy at the end of March Last C-scope was 2012 with polypectomy She is on Coumadin for PAF, will hold coumadin today Gastro on board Plan for EGD today Will give 2 unit FFP now since INR is 2.7 before going for the EGD Pt said that she felt better after last transfusion and would like to get transfused during the hospital course Continue monitor H/H SSS s/p PPM Paroxysmal Afib Continue metoprolol and Sotalol Continue Coumadin INR 2.7 today. Will hold Coumadin and aspirin due to +FOBT Continue monitor PT/INR CAD s/p stenting/CABG hx of AVR Continue statin and metoprolol Aspirin on hold due to +FOBT Stable Chronic HFpEF No sign of fluid overload Continue Lasix 80mg daily, metoprolol, aldactone Continue monitor BMP daily weight, strict I and O RLS continue lyrica CKD-3 baseline cr 1.0-1.2 Creatinine 1.13 Stale DVT prophylaxis. Coumadin INR 2.6 Full code PCP: Brenna Admission and Anticipated Discharge Date Admission Date: March 24, 2021 Subjective Pt was seen and examined for follow up ESBL UTI Sitting in chair with no distress Pt had an episode of dark stool and FOBT positive this morning She is NPO for now for EGD Denies any chest pain, palpitation, dizziness and SOB Review of Systems Review of Systems: All systems reviewed & are unremarkable except as noted in Subjective Physical Exam Physical Exam: General- No acute distress Head- atraumatic Eyes- PERRL, EOMI, ENT- oropharynx clear Neck- supple, no JVD Lungs- clear to auscultation Heart- regular rhythm; +murmur Abdomen- normal bowel sounds, soft, nontender Extremities- no calf tenderness Neuro- alert, oriented x 3; PERRL, EOMI; no facial palsy; no dysarthria Skin- warm & dry Results & Data Results & Data ([facility]) Vital Signs (Past 12 Hours) Vital Signs Temp Pulse Pulse Resp BP BP Pulse Ox 03/26/21 15:38 36.4 C L 73 18 137/80 97 03/26/21 15:18 71 16 112/67 96 03/26/21 15:04 72 16 120/78 95 03/26/21 14:50 79 16 107/71 95 03/26/21 14:12 36.2 C L 77 16 140/94 97 03/26/21 13:31 35 C L 74 16 133/83 03/26/21 13:20 36.5 C 71 18 134/86 92 03/26/21 12:05 36.8 C 75 18 117/79 93 03/26/21 11:49 36.9 C 73 18 114/78 93 03/26/21 11:33 36.9 C 63 18 100/66 95 03/26/21 11:15 36.6 C 78 16 112/65 94
[2021-03-26] MEDS: LORazepam 0.5 MG TAB PO PRN (20:52)
[2021-03-26] MEDS: ACETAMINOPHEN 325 MG TAB PO PRN (20:53)
[2021-03-26] MEDS: ROSUVASTATIN CALCIUM 10 MG TAB PO SCH (20:55)
[2021-03-26] MEDS: LORATADINE 10 MG TAB PO SCH (20:59)
[2021-03-27] MEDS: PANTOprazole 40 MG in DEXTROSE 5% 100 ML IV SCH ×4 (02:23→08:17)
[2021-03-27 03:49] LABS: Basophils # (auto) 0.09 K/uL (0-0.2); Basophils % (auto) 1.3 %; Eosinophils # (auto) 0.36 K/uL (0-0.5); Eosinophils % (auto) 5.2 %; Hematocrit (blood only) 28.3 % (37-47); Hemoglobin 8.2 g/dL (12.0-16.0); Immature Granulocytes # (auto) 0.01 K/uL (0.00-0.02); Immature Granulocytes % (auto) 0.1 %; Lymphocytes # (auto) 0.79 K/uL (1.2-3.4); Lymphocytes % (auto) 11.4 %; Mean Corpuscular Hemoglobin 28.5 pg (25-34); Mean Corpuscular Volume 98.3 fL (80-100); Mean Platelet Volume 11.5 fL (7.4-10.4); Monocytes # (auto) 0.33 K/uL (0.11-0.59); Monocytes % (auto) 4.7 %; Neutrophils # (auto) 5.38 K/uL (1.4-6.5); Neutrophils % (auto) 77.3 %; Platelet Count 519 K/uL (130-400); RDW Standard Deviation 53.1 fL (36.4-46.3); Red Blood Count 2.88 M/uL (4.2-5.4); White Blood Count 6.96 K/uL (4.8-10.8)
[2021-03-27 04:04] LABS: INR 2.4 (0.9-1.1); Prothrombin Time 22.5 Seconds (9.0-12.0)
[2021-03-27] MEDS ORDERED: SODIUM CHLORIDE 0.9% 250 ML IV PRN (04:05)
[2021-03-27 04:06] LABS: Calcium 8.2 mg/dl (8.5-10.1); Est GFR (African American) 43.7 ml/min; Est GFR (Non-African American) 37.7 ml/min; Magnesium 2.1 mg/dl (1.8-2.4); Potassium 3.6 mmol/L (3.5-5.1)
--- NOTE | 2021-03-27 08:02 | XRay Report ---
XR chest 1V portable HISTORY: Shortness of breath. COMPARISON: Chest 02/12/2021. FINDINGS: No pneumothorax. The heart is mildly enlarged. There is progressive interstitial/vascular t hickening consistent with developing pulmonary edema. There is left-sided pacemaker. Cardiac valve pr osthesis and poststernotomy changes are again noted. Suspect trace bilateral pleural fusions. No new focal lung consolidations. IMPRESSION: Developing mild interstitial pulmonary edema and trace bilateral pleural effusions. ACT 112: Negative or not required by law. Electronically signed by: Oliver Valdovinos M.D. 03/27/2021 8:01 AM
[2021-03-27] MEDS: PREGABALIN 75 MG CAP PO SCH ×2 (08:17→20:12)
[2021-03-27] MEDS: DOCUSATE SODIUM 100 MG CAP PO SCH (08:18)
[2021-03-27] MEDS: MAGNESIUM OXIDE 400 MG TAB PO SCH (08:18)
[2021-03-27] MEDS: CEROVITE ADV FORMULA TAB PO SCH (08:18)
[2021-03-27] MEDS: SOTALOL HCL 80 MG TAB PO SCH ×2 (08:19→20:14)
[2021-03-27] MEDS: FLUTICASONE PROPIONATE NA SPR 16 GM BTL NAE SCH (08:20)
[2021-03-27] MEDS: FERROUS SULFATE 325 MG TAB PO SCH ×2 (08:22→20:12)
[2021-03-27] MEDS: POLYETHYLENE (MIRALAX) 17 GM PACK PO PRN (08:38)
[2021-03-27] MEDS: METOPROLOL SUCC 50MG EXT REL TAB PO SCH ×2 (10:59→20:12)
[2021-03-27] MEDS: ERTAPENEM SODIUM 1,000 MG in SODIUM CHLORIDE 0.9% 50 ML IV SCH (13:48)
[2021-03-27] MEDS ORDERED: FUROSEMIDE 40 MG TAB PO ONE (18:51)
[2021-03-27] MEDS ORDERED: WARFARIN SOD 2 MG TAB PO ONE (18:53)
--- NOTE | 2021-03-27 19:23 | Hospitalist Progress Note ---
Date of Service March 27, 2021 Assessment & Plan (1) UTI due to extended-spectrum beta lactamase (ESBL) producing Escherichia coli: (2) Generalized weakness: (3) Anemia: (4) CAD (coronary artery disease) of bypass graft: (5) Paroxysmal atrial fibrillation: (6) Replacement of aortic valve: (7) Tachycardia-bradycardia syndrome: (8) CKD (chronic kidney disease) stage 2, GFR 60-89 ml/min: (9) Essential thrombocythemia: (10) HTN (hypertension): (11) HLD (hyperlipidemia): (12) DVT prophylaxis: This is an 86 yr old F who has a significant PMH of CAD with hx of CABG and stenting, PAF anticoagulated on warfarin and rhythm controlled on sotalol, Chronic HFpEF, SSS s/p PPM, HTN, HLD, GAVIN, s/p Bovine AVR, RLS, asymptomatic carotid artery stenosis, hx of freq utis, essential thrombocythemia followed by hematology, ckd-3 who presents to ED 2/2 to UTI like sx and + outpt culture for ESBL. Generalized weakness likely related to UTI as well as symptomatic anemia Continue PT/OT Fall precaution ESBL UTI continue IV ertapenem day 1 Repeat Urine cx on admission grew Ecoli Continue IV Ertapenem to complete 7 days course Anemia Pt has an episode of dark stool last night FOBT Positive Iron studies done 1 month ago revealed ferritin 21.5, iron 21, TIBC 403, normal folic acid and B12 She is on iron supplement once daily She received 1unit PRBC during last admission Per patient and outpatient records she has been having intermittent hematuria microscopic and gross for the past 2 years She has been following [facility] and is scheduled for cystoscopy at the end of March Last C-scope was 2012 with polypectomy She is on Coumadin for PAF, will hold coumadin today Gastro on board S/P EGD on 03/26 showed no active bleeding. received 2 unit FFP since INR is 2.7 for the EGD Will discontinue IV PPI S/P 1 unit PRBC today Continue monitor H/H SSS s/p PPM Paroxysmal Afib Continue metoprolol and Sotalol Continue Coumadin INR 2.4 today. Will resume Coumadin today Continue monitor PT/INR CAD s/p stenting/CABG hx of AVR Continue statin and metoprolol Aspirin on hold due to +FOBT Stable Chronic HFpEF No sign of fluid overload Continue metoprolol Aldactone and lasis on hold Will give Lasix 40mg IV x1 today Continue monitor BMP daily weight, strict I and O RLS continue lyrica CKD-3 baseline cr 1.0-1.2 Creatinine 1.2 Stale DVT prophylaxis. Coumadin INR 2.4 Full code PCP: Brenna Admission and Anticipated Discharge Date Admission Date: March 24, 2021 Subjective Pt was seen and examined for follow up for UTI and weakness Pt said that she has more energy after getting the blood transfusion She said that she feels a little full because she has not been getting lasix and received blood product Denies any chest pain, palpitation, dizziness and SOB Review of Systems Review of Systems: All systems reviewed & are unremarkable except as noted in Subjective Physical Exam Physical Exam: General- No acute distress Head- atraumatic Eyes- PERRL, EOMI, ENT- oropharynx clear Neck- supple, no JVD Lungs- clear to auscultation Heart- regular rhythm; +murmur Abdomen- normal bowel sounds, soft, nontender Extremities- no calf tenderness Neuro- alert, oriented x 3; PERRL, EOMI; no facial palsy; no dysarthria Skin- warm & dry Results & Data Results & Data ([facility]) Vital Signs (Past 12 Hours) Vital Signs Temp Pulse Pulse Resp BP BP Pulse Ox 03/27/21 15:17 37.0 C 63 16 113/73 95 03/27/21 10:27 36.5 C 73 18 119/80 94 03/27/21 08:30 36.5 C 61 18 117/73 100
[2021-03-27] MEDS ORDERED: FUROSEMIDE 40 MG in SYRINGE 0 ML IV ONE (19:30)
[2021-03-27] MEDS: ROSUVASTATIN CALCIUM 10 MG TAB PO SCH (20:13)
[2021-03-27] MEDS: LORATADINE 10 MG TAB PO SCH (20:13)
[2021-03-28 06:29] LABS: Hematocrit (blood only) 33.5 % (37-47); Hemoglobin 9.8 g/dL (12.0-16.0); Mean Corpuscular Hemoglobin 28.2 pg (25-34); Mean Corpuscular Hgb Conc 29.3 g/dL (32-36); Mean Corpuscular Volume 96.3 fL (80-100); Mean Platelet Volume 11.4 fL (7.4-10.4); Platelet Count 410 K/uL (130-400); RDW Coefficient of Variation 15.8 % (11.5-14.5); RDW Standard Deviation 53.6 fL (36.4-46.3); Red Blood Count 3.48 M/uL (4.2-5.4); White Blood Count 8.39 K/uL (4.8-10.8)
[2021-03-28 06:49] LABS: BUN Creatinine Ratio 26.2 (10-20); Calcium 9.2 mg/dl (8.5-10.1); Creatinine Clr Calc Pharmacy 34.5 ml/min; Est GFR (African American) 51.9 ml/min; Est GFR (Non-African American) 44.8 ml/min; Potassium 3.7 mmol/L (3.5-5.1)
[2021-03-28] MEDS: PREGABALIN 75 MG CAP PO SCH ×2 (08:47→20:10)
[2021-03-28] MEDS: FLUTICASONE PROPIONATE NA SPR 16 GM BTL NAE SCH (08:48)
[2021-03-28] MEDS: DOCUSATE SODIUM 100 MG CAP PO SCH (08:48)
[2021-03-28] MEDS: MAGNESIUM OXIDE 400 MG TAB PO SCH (08:49)
[2021-03-28] MEDS: CEROVITE ADV FORMULA TAB PO SCH (08:49)
[2021-03-28] MEDS: SOTALOL HCL 80 MG TAB PO SCH ×2 (08:49→20:10)
[2021-03-28] MEDS: FERROUS SULFATE 325 MG TAB PO SCH ×2 (08:49→20:10)
[2021-03-28] MEDS: PANTOprazole 40 MG TAB PO SCH (08:50)
[2021-03-28] MEDS: METOPROLOL SUCC 50MG EXT REL TAB PO SCH ×2 (08:50→20:10)
[2021-03-28 10:33] LABS: INR 2.1 (0.9-1.1)
[2021-03-28] MEDS ORDERED: FUROSEMIDE 80 MG TAB PO ONE (12:12)
[2021-03-28] MEDS ORDERED: SPIRONOLACTONE 12.5 MG TAB PO ONE (12:12)
[2021-03-28] MEDS: ERTAPENEM SODIUM 1,000 MG in SODIUM CHLORIDE 0.9% 50 ML IV SCH (13:48)
[2021-03-28] MEDS ORDERED: WARFARIN SOD 2.5 MG TAB PO ONE (17:00)
--- NOTE | 2021-03-28 18:09 | Hospitalist Progress Note ---
Date of Service March 28, 2021 Assessment & Plan (1) UTI due to extended-spectrum beta lactamase (ESBL) producing Escherichia coli: (2) Generalized weakness: (3) Anemia: (4) CAD (coronary artery disease) of bypass graft: (5) Paroxysmal atrial fibrillation: (6) Replacement of aortic valve: (7) Tachycardia-bradycardia syndrome: (8) CKD (chronic kidney disease) stage 2, GFR 60-89 ml/min: (9) Essential thrombocythemia: (10) HTN (hypertension): (11) HLD (hyperlipidemia): (12) DVT prophylaxis: This is an 86 yr old F who has a significant PMH of CAD with hx of CABG and stenting, PAF anticoagulated on warfarin and rhythm controlled on sotalol, Chronic HFpEF, SSS s/p PPM, HTN, HLD, GAVIN, s/p Bovine AVR, RLS, asymptomatic carotid artery stenosis, hx of freq utis, essential thrombocythemia followed by hematology, ckd-3 who presents to ED 2/2 to UTI like sx and + outpt culture for ESBL. Generalized weakness likely related to UTI as well as symptomatic anemia Continue PT/OT Fall precaution ESBL UTI Repeat Urine cx on admission grew Ecoli Continue IV Ertapenem to complete 7 days course Anemia FOBT Positive Iron studies done 1 month ago revealed ferritin 21.5, iron 21, TIBC 403, normal folic acid and B12 She is on iron supplement once daily She received 1unit PRBC during last admission Per patient and outpatient records she has been having intermittent hematuria microscopic and gross for the past 2 years She has been following [facility] and is scheduled for cystoscopy at the end of March Last C-scope was 2012 with polypectomy She is on Coumadin for PAF Gastro on board S/P EGD on 03/26 showed no active bleeding. received 2 unit FFP since INR is 2.7 for the EGD Discontinued IV PPI and transition to PO PPI S/P 1 unit PRBC on 03/27/21 Hgb 9.8 today Continue monitor H/H SSS s/p PPM Paroxysmal Afib Continue metoprolol and Sotalol Continue Coumadin INR 2.1 today. Continue Coumadin Continue monitor PT/INR Nocturnal hypoxia Will get on overnight pulse oximetry Continue oxygen supplement HS for now CAD s/p stenting/CABG hx of AVR Continue statin and metoprolol Aspirin on hold due to +FOBT Stable Chronic HFpEF No sign of fluid overload Continue metoprolol Lasix and Aldactone resumed Continue monitor BMP daily weight, strict I and O RLS continue lyrica CKD-3 baseline cr 1.0-1.2 Creatinine 1.1 Stale DVT prophylaxis on Coumadin with INR 2.1 Full code PCP: Brenna Admission and Anticipated Discharge Date Admission Date: March 24, 2021 Subjective Pt was seen and examined for follow up for UTI and weakness Sitting in chair with no distress eating lunch Patient said that this morning her throat felt dry after oxygen placed last night for shortness of breath She said that her energy feels much better today Later I came back to her room speak to her son and provided with updates and answered all his questions. Denies any chest pain, palpitation, dizziness and SOB Review of Systems Review of Systems: All systems reviewed & are unremarkable except as noted in Subjective Physical Exam Physical Exam: General- No acute distress Head- atraumatic Eyes- PERRL, EOMI, ENT- oropharynx clear Neck- supple, no JVD Lungs- clear to auscultation Heart- regular rhythm; +murmur Abdomen- normal bowel sounds, soft, nontender Extremities- no calf tenderness Neuro- alert, oriented x 3; PERRL, EOMI; no facial palsy; no dysarthria Skin- warm & dry Results & Data Results & Data ([facility]) Vital Signs (Past 12 Hours) Vital Signs Temp Pulse Pulse Resp BP Pulse Ox 03/28/21 15:15 37.1 C 86 18 104/73 92 03/28/21 15:00 80 03/28/21 13:48 74 127/87 03/28/21 11:33 37.2 C 74 16 113/78 94 03/28/21 07:58 36.9 C 74 16 100/63 92 03/28/21 07:37 74
[2021-03-28] MEDS: LORATADINE 10 MG TAB PO SCH (20:10)
[2021-03-28] MEDS: ROSUVASTATIN CALCIUM 10 MG TAB PO SCH (20:11)
[2021-03-29 08:12] LABS: Hemoglobin 9.9 g/dL (12.0-16.0); Mean Corpuscular Hemoglobin 28.2 pg (25-34); Mean Corpuscular Hgb Conc 29.1 g/dL (32-36); Mean Corpuscular Volume 96.9 fL (80-100); Mean Platelet Volume 11.5 fL (7.4-10.4); Platelet Count 334 K/uL (130-400); RDW Coefficient of Variation 15.8 % (11.5-14.5); RDW Standard Deviation 53.6 fL (36.4-46.3); Red Blood Count 3.51 M/uL (4.2-5.4); White Blood Count 6.83 K/uL (4.8-10.8)
[2021-03-29 08:53] LABS: BUN Creatinine Ratio 26.7 (10-20); Calcium 8.5 mg/dl (8.5-10.1); Creatinine Clr Calc Pharmacy 36.2 ml/min; Est GFR (African American) 54.8 ml/min; Est GFR (Non-African American) 47.3 ml/min; Potassium 3.3 mmol/L (3.5-5.1)
[2021-03-29] MEDS: MAGNESIUM OXIDE 400 MG TAB PO SCH (09:23)
[2021-03-29] MEDS: FUROSEMIDE 80 MG TAB PO SCH (09:23)
[2021-03-29] MEDS: METOPROLOL SUCC 50MG EXT REL TAB PO SCH ×2 (09:23→20:06)
[2021-03-29] MEDS: PANTOprazole 40 MG TAB PO SCH (09:23)
[2021-03-29] MEDS: CEROVITE ADV FORMULA TAB PO SCH (09:23)
[2021-03-29] MEDS: DOCUSATE SODIUM 100 MG CAP PO SCH (09:23)
[2021-03-29] MEDS: FERROUS SULFATE 325 MG TAB PO SCH ×2 (09:23→20:06)
[2021-03-29] MEDS: FLUTICASONE PROPIONATE NA SPR 16 GM BTL NAE SCH (09:24)
[2021-03-29] MEDS: SPIRONOLACTONE 12.5 MG TAB PO SCH (09:24)
[2021-03-29] MEDS: PREGABALIN 75 MG CAP PO SCH ×2 (09:24→20:06)
[2021-03-29] MEDS: SOTALOL HCL 80 MG TAB PO SCH ×2 (09:24→20:06)
[2021-03-29 09:26] LABS: Hematocrit (blood only) 36.2 % (37-47); Hemoglobin 10.6 g/dL (12.0-16.0); Mean Corpuscular Hemoglobin 28.9 pg (25-34); Mean Corpuscular Hgb Conc 29.3 g/dL (32-36); Mean Corpuscular Volume 98.6 fL (80-100); Mean Platelet Volume 11.5 fL (7.4-10.4); Platelet Count 351 K/uL (130-400); RDW Coefficient of Variation 15.8 % (11.5-14.5); RDW Standard Deviation 54.9 fL (36.4-46.3); Red Blood Count 3.67 M/uL (4.2-5.4); White Blood Count 7.22 K/uL (4.8-10.8)
[2021-03-29 09:38] LABS: INR 2.5 (0.9-1.1); Prothrombin Time 23.2 Seconds (9.0-12.0)
[2021-03-29] MEDS ORDERED: POTASSIUM CHLORIDE CRTAB 20 MEQ TABCR PO STA (10:03)
[2021-03-29] MEDS: ERTAPENEM SODIUM 1,000 MG in SODIUM CHLORIDE 0.9% 50 ML IV SCH (14:27)
[2021-03-29] MEDS: HYDROXYUREA 500 MG CAP PO SCH (17:21)
[2021-03-29] MEDS ORDERED: WARFARIN SOD 1.25 MG TAB PO ONE (19:05)
--- NOTE | 2021-03-29 19:05 | Hospitalist Progress Note ---
Date of Service March 29, 2021 Assessment & Plan (1) UTI due to extended-spectrum beta lactamase (ESBL) producing Escherichia coli: (2) Generalized weakness: (3) Anemia: (4) CAD (coronary artery disease) of bypass graft: (5) Paroxysmal atrial fibrillation: (6) Replacement of aortic valve: (7) Tachycardia-bradycardia syndrome: (8) CKD (chronic kidney disease) stage 2, GFR 60-89 ml/min: (9) Essential thrombocythemia: (10) HTN (hypertension): (11) HLD (hyperlipidemia): (12) DVT prophylaxis: This is an 86 yr old F who has a significant PMH of CAD with hx of CABG and stenting, PAF anticoagulated on warfarin and rhythm controlled on sotalol, Chronic HFpEF, SSS s/p PPM, HTN, HLD, GAVIN, s/p Bovine AVR, RLS, asymptomatic carotid artery stenosis, hx of freq utis, essential thrombocythemia followed by hematology, ckd-3 who presents to ED 2/2 to UTI like sx and + outpt culture for ESBL. Generalized weakness likely related to UTI as well as symptomatic anemia Continue PT/OT Fall precaution ESBL UTI Repeat Urine cx on admission grew Ecoli Continue IV Ertapenem to complete 7 days course Pt said that when passing gas, sometimes she accidentally leaks stool. Pt was advised to change the pad or depend very often to decrease the risk of UTI Will complete 7 days course of abx tomorrow Anemia FOBT Positive Iron studies done 1 month ago revealed ferritin 21.5, iron 21, TIBC 403, normal folic acid and B12 She is on iron supplement once daily She received 1unit PRBC during last admission Per patient and outpatient records she has been having intermittent hematuria microscopic and gross for the past 2 years She has been following [facility] and is scheduled for cystoscopy at the end of March Last C-scope was 2012 with polypectomy She is on Coumadin for PAF Gastro on board S/P EGD on 03/26 showed no active bleeding. received 2 unit FFP since INR is 2.7 for the EGD Discontinued IV PPI and transition to PO PPI S/P 1 unit PRBC on 03/27/21 Hgb 10.6 today Continue monitor H/H SSS s/p PPM Paroxysmal Afib Continue metoprolol and Sotalol Continue Coumadin INR 2.5 today. Continue Coumadin Continue monitor PT/INR Nocturnal hypoxia Overnight pulse oximetry showed pt required oxygen at night Continue oxygen supplement HS for now Will notify case management to arrange for oxygen Will get a 2 step on discharge Hypokalemia K 3.3 today K replaced monitor BMP CAD s/p stenting/CABG hx of AVR Continue statin and metoprolol Aspirin on hold due to +FOBT Stable Chronic HFpEF No sign of fluid overload Continue metoprolol Lasix and Aldactone resumed Continue monitor BMP daily weight, strict I and O RLS continue lyrica CKD-3 baseline cr 1.0-1.2 Creatinine 1.1 Stale DVT prophylaxis on Coumadin with INR 2.1 Full code PCP: Brenna Admission and Anticipated Discharge Date Admission Date: March 24, 2021 Subjective Pt was seen and examined for follow up for UTI and weakness Sitting in chair with no distress eating lunch She said that her energy feels much better today She had a overnight pulse oximetry done an pt requires oxygen at night Denies any chest pain, palpitation, dizziness and SOB Review of Systems Review of Systems: All systems reviewed & are unremarkable except as noted in Subjective Physical Exam Physical Exam: General- No acute distress Head- atraumatic Eyes- PERRL, EOMI, ENT- oropharynx clear Neck- supple, no JVD Lungs- clear to auscultation Heart- regular rhythm; +murmur Abdomen- normal bowel sounds, soft, nontender Extremities- no calf tenderness Neuro- alert, oriented x 3; PERRL, EOMI; no facial palsy; no dysarthria Skin- warm & dry Results & Data Results & Data ([facility]) Vital Signs (Past 12 Hours) Vital Signs Temp Pulse Resp BP BP Pulse Ox 03/29/21 15:45 36.6 C 86 18 106/74 93 03/29/21 11:48 36.6 C 80 19 103/68 93 03/29/21 08:21 36.7 C 80 19 130/76 93
[2021-03-29] MEDS: LORATADINE 10 MG TAB PO SCH (20:06)
[2021-03-29] MEDS: ROSUVASTATIN CALCIUM 10 MG TAB PO SCH (20:08)
[2021-03-29] MEDS: LORazepam 0.5 MG TAB PO PRN (22:40)
[2021-03-30 08:12] LABS: INR 2.8 (0.9-1.1); Prothrombin Time 25.9 Seconds (9.0-12.0)
[2021-03-30 08:31] LABS: BUN Creatinine Ratio 30.3 (10-20); Calcium 8.8 mg/dl (8.5-10.1); Creatinine Clr Calc Pharmacy 40.3 ml/min; Est GFR (African American) 62.5 ml/min; Est GFR (Non-African American) 53.9 ml/min; Potassium 3.6 mmol/L (3.5-5.1)
[2021-03-30] MEDS: CEROVITE ADV FORMULA TAB PO SCH (09:31)
[2021-03-30] MEDS: SOTALOL HCL 80 MG TAB PO SCH ×2 (09:31→21:05)
[2021-03-30] MEDS: METOPROLOL SUCC 50MG EXT REL TAB PO SCH ×2 (09:31→21:07)
[2021-03-30] MEDS: DOCUSATE SODIUM 100 MG CAP PO SCH (09:31)
[2021-03-30] MEDS: SPIRONOLACTONE 12.5 MG TAB PO SCH (09:31)
[2021-03-30] MEDS: FERROUS SULFATE 325 MG TAB PO SCH ×2 (09:31→21:07)
[2021-03-30] MEDS: MAGNESIUM OXIDE 400 MG TAB PO SCH (09:31)
[2021-03-30] MEDS: FLUTICASONE PROPIONATE NA SPR 16 GM BTL NAE SCH (09:31)
[2021-03-30] MEDS: PANTOprazole 40 MG TAB PO SCH (09:31)
[2021-03-30] MEDS: FUROSEMIDE 80 MG TAB PO SCH (09:31)
[2021-03-30] MEDS: PREGABALIN 75 MG CAP PO SCH ×2 (09:31→21:07)
[2021-03-30] MEDS: ERTAPENEM SODIUM 1,000 MG in SODIUM CHLORIDE 0.9% 50 ML IV SCH (13:49)
[2021-03-30] MEDS ORDERED: bisacodyL 10 MG SUPP PR STA (14:30)
[2021-03-30] MEDS ORDERED: ASPIRIN 81 MG ECTAB PO ONE (14:43)
[2021-03-30] MEDS ORDERED: ALUMINUM/MAGNESIUM SUSP 30 ML UDC PO STA (16:09)
--- NOTE | 2021-03-30 17:10 | Hospitalist Progress Note ---
Date of Service March 30, 2021 Assessment & Plan (1) UTI due to extended-spectrum beta lactamase (ESBL) producing Escherichia coli: (2) Generalized weakness: (3) Anemia: (4) CAD (coronary artery disease) of bypass graft: (5) Paroxysmal atrial fibrillation: (6) Replacement of aortic valve: (7) Tachycardia-bradycardia syndrome: (8) CKD (chronic kidney disease) stage 2, GFR 60-89 ml/min: (9) Essential thrombocythemia: (10) HTN (hypertension): (11) HLD (hyperlipidemia): (12) DVT prophylaxis: This is an 86 yr old F who has a significant PMH of CAD with hx of CABG and stenting, PAF anticoagulated on warfarin and rhythm controlled on sotalol, Chronic HFpEF, SSS s/p PPM, HTN, HLD, GAVIN, s/p Bovine AVR, RLS, asymptomatic carotid artery stenosis, hx of freq utis, essential thrombocythemia followed by hematology, ckd-3 who presents to ED 2/2 to UTI like sx and + outpt culture for ESBL. Generalized weakness likely related to UTI as well as symptomatic anemia Continue PT/OT Fall precaution ESBL UTI Repeat Urine cx on admission grew Ecoli Continue IV Ertapenem to complete 7 days course Pt said that when passing gas, sometimes she accidentally leaks stool. Pt was advised to change the pad or depend very often to decrease the risk of UTI Completed 7 days course of abx Anemia FOBT Positive Iron studies done 1 month ago revealed ferritin 21.5, iron 21, TIBC 403, normal folic acid and B12 She is on iron supplement once daily She received 1unit PRBC during last admission Per patient and outpatient records she has been having intermittent hematuria microscopic and gross for the past 2 years She has been following [facility] and is scheduled for cystoscopy at the end of March Last C-scope was 2012 with polypectomy She is on Coumadin for PAF Gastro on board S/P EGD on 03/26 showed no active bleeding. received 2 unit FFP since INR is 2.7 for the EGD Discontinued IV PPI and transition to PO PPI S/P 1 unit PRBC on 03/27/21 Hgb 10.6 stable Check CBC in 1 week SSS s/p PPM Paroxysmal Afib Continue metoprolol and Sotalol Continue Coumadin INR 2.8 today . Continue Coumadin Continue monitor PT/INR Nocturnal hypoxia Overnight pulse oximetry showed pt required oxygen at night Continue oxygen supplement HS for now 2 step done today and pt requires 2L NC with ambulation Will notify case management to arrange for oxygen Constipation Continue stool softener and laxative Hypokalemia K 3.6 today Continue oxygen supplement Check BMP in 1 week CAD s/p stenting/CABG hx of AVR Continue statin and metoprolol Aspirin on hold due to +FOBT Stable Chronic HFpEF No sign of fluid overload Continue metoprolol Lasix and Aldactone resumed Continue monitor BMP daily weight, strict I and O RLS continue lyrica CKD-3 baseline cr 1.0-1.2 Creatinine 1.1 Stale DVT prophylaxis on Coumadin with INR 2.8 Full code PCP: Brenna Admission and Anticipated Discharge Date Admission Date: March 24, 2021 Subjective Pt was seen and examined for follow up for UTI and weakness Sitting in chair with no distress eating lunch I spoke to daughter while pt was video called her daughter and provided with updates Later i went to check with patient because she had mid epigastric pain and feel bloated I did stat troponin that was normal and EKG with no change Son was there when i came back later to check on the patient and updated the son as well Pt said that she had a small bowel movement early today but she feels like that she has to go to empty her bowel She is getting a dulcolax UT before going home today Denies any chest pain, palpitation, dizziness and SOB Review of Systems Review of Systems: All systems reviewed & are unremarkable except as noted in Subjective Physical Exam Physical Exam: General- No acute distress Head- atraumatic Eyes- PERRL, EOMI, ENT- oropharynx clear Neck- supple, no JVD Lungs- clear to auscultation Heart- regular rhythm; +murmur Abdomen- normal bowel sounds, soft, nontender Extremities- no calf tenderness Neuro- alert, oriented x 3; PERRL, EOMI; no facial palsy; no dysarthria Skin- warm & dry Results & Data Results & Data ([facility]) Vital Signs (Past 12 Hours) Vital Signs Temp Pulse Pulse Pulse Pulse Pulse Pulse 03/30/21 14:05 36.7 C 79 03/30/21 09:21 83 85 85 96 H 03/30/21 09:20 36.6 C 87 03/30/21 07:00 69 Resp Resp Resp Resp Resp BP BP 03/30/21 14:05 18 135/82 03/30/21 09:21 20 20 20 18 03/30/21 09:20 18 130/72 03/30/21 07:00 Pulse Ox Pulse Ox Pulse Ox Pulse Ox Pulse Ox 03/30/21 14:05 94 03/30/21 09:21 93 86 L 95 95 03/30/21 09:20 92 03/30/21 07:00
[2021-03-30] MEDS ORDERED: WARFARIN SOD 2 MG TAB PO ONE (17:49)
[2021-03-30] MEDS: POLYETHYLENE (MIRALAX) 17 GM PACK PO PRN (18:06)
[2021-03-30] MEDS: LORATADINE 10 MG TAB PO SCH (21:08)
[2021-03-30] MEDS: ROSUVASTATIN CALCIUM 10 MG TAB PO SCH (21:08)
--- NOTE | 2021-03-31 06:34 | Electrocardiogram Report ---
Test Reason : Blood Pressure : / mmHG Vent. Rate : 061 BPM Atrial Rate : 061 BPM P-R Int : 230 ms QRS Dur : 130 ms QT Int : 492 ms P-R-T Axes : 000 075 099 degrees QTc Int : 495 ms Atrial-paced rhythm with prolonged AV conduction Right bundle branch block Abnormal ECG When compared with ECG of 12-FEB-2021 22:41, Ventricular paced complexes are no longer present Confirmed by Jet Jerome ([id number] on 03/31/2021 6:34:02 AM Referred By: Regan Ceja Confirmed By:Jet Jerome
[2021-03-31] MEDS ORDERED: POLYETHYLENE (MIRALAX) 17 GM PACK PO ONE (08:55)
[2021-03-31] MEDS ORDERED: bisacodyL 10 MG SUPP PR STA (08:55)
[2021-03-31] MEDS ORDERED: bisacodyL 5 MG TABEC PO ONE (08:55)
[2021-03-31] MEDS: SOTALOL HCL 80 MG TAB PO SCH (09:39)
[2021-03-31] MEDS: DOCUSATE SODIUM 100 MG CAP PO SCH (09:39)
[2021-03-31] MEDS: FUROSEMIDE 80 MG TAB PO SCH (09:40)
[2021-03-31] MEDS: SPIRONOLACTONE 12.5 MG TAB PO SCH (09:40)
[2021-03-31] MEDS: FERROUS SULFATE 325 MG TAB PO SCH (09:40)
[2021-03-31] MEDS: MAGNESIUM OXIDE 400 MG TAB PO SCH (09:40)
[2021-03-31] MEDS: METOPROLOL SUCC 50MG EXT REL TAB PO SCH (09:40)
[2021-03-31] MEDS: CEROVITE ADV FORMULA TAB PO SCH (09:40)
[2021-03-31] MEDS: PREGABALIN 75 MG CAP PO SCH (09:40)
[2021-03-31] MEDS: FLUTICASONE PROPIONATE NA SPR 16 GM BTL NAE SCH (09:40)
[2021-03-31] MEDS: PANTOprazole 40 MG TAB PO SCH (09:40)
--- NOTE | 2021-03-31 09:53 | Hospitalist Progress Note ---
Date of Service March 31, 2021 Assessment & Plan (1) UTI due to extended-spectrum beta lactamase (ESBL) producing Escherichia coli: (2) Generalized weakness: (3) Anemia: (4) CAD (coronary artery disease) of bypass graft: (5) Paroxysmal atrial fibrillation: (6) Replacement of aortic valve: (7) Tachycardia-bradycardia syndrome: (8) CKD (chronic kidney disease) stage 2, GFR 60-89 ml/min: (9) Essential thrombocythemia: (10) HTN (hypertension): (11) HLD (hyperlipidemia): (12) DVT prophylaxis: This is an 86 yr old F who has a significant PMH of CAD with hx of CABG and stenting, PAF anticoagulated on warfarin and rhythm controlled on sotalol, Chronic HFpEF, SSS s/p PPM, HTN, HLD, GAVIN, s/p Bovine AVR, RLS, asymptomatic carotid artery stenosis, hx of freq utis, essential thrombocythemia followed by hematology, ckd-3 who presents to ED 2/2 to UTI like sx and + outpt culture for ESBL. Generalized weakness likely related to UTI as well as symptomatic anemia Continue PT/OT Fall precaution ESBL UTI Repeat Urine cx on admission grew Ecoli Continue IV Ertapenem to complete 7 days course Pt said that when passing gas, sometimes she accidentally leaks stool. Pt was advised to change the pad or depend very often to decrease the risk of UTI Completed 7 days course of abx Anemia FOBT Positive Iron studies done 1 month ago revealed ferritin 21.5, iron 21, TIBC 403, normal folic acid and B12 She is on iron supplement once daily She received 1unit PRBC during last admission Per patient and outpatient records she has been having intermittent hematuria microscopic and gross for the past 2 years She has been following [facility] and is scheduled for cystoscopy at the end of March Last C-scope was 2012 with polypectomy She is on Coumadin for PAF Gastro on board S/P EGD on 03/26 showed no active bleeding. received 2 unit FFP since INR is 2.7 for the EGD Discontinued IV PPI and transition to PO PPI S/P 1 unit PRBC on 03/27/21 Hgb 10.6 stable Check CBC in 1 week SSS s/p PPM Paroxysmal Afib Continue metoprolol and Sotalol Continue Coumadin INR 2.8 today . Continue Coumadin Continue monitor PT/INR Nocturnal hypoxia Overnight pulse oximetry showed pt required oxygen at night Continue oxygen supplement HS for now 2 step done today and pt requires 2L NC with ambulation Will notify case management to arrange for oxygen Constipation Continue stool softener and laxative Hypokalemia K 3.6 today Continue oxygen supplement Check BMP in 1 week CAD s/p stenting/CABG hx of AVR Continue statin and metoprolol Aspirin on hold due to +FOBT Stable Chronic HFpEF No sign of fluid overload Continue metoprolol Lasix and Aldactone resumed Continue monitor BMP daily weight, strict I and O RLS continue lyrica CKD-3 baseline cr 1.0-1.2 Creatinine 1.1 Stale DVT prophylaxis on Coumadin with INR 2.8 Full code PCP: Brenna Admission and Anticipated Discharge Date Admission Date: March 24, 2021 Subjective Pt was seen and examined for follow up for UTI and weakness Denies any chest pain, palpitation, dizziness and SOB Patient was about to be discharged yesterday however she felt constipated, received stool softeners and had bowel movement yesterday and this morning This morning patient is in the bathroom, had a large BM Has no complaints, discussed discharge this afternoon Review of Systems Review of Systems: All systems reviewed & are unremarkable except as noted in HPI & below Constitutional: no fever and no chills Respiratory: no cough and no dyspnea Cardiovascular: no chest pain and no palpitations Gastrointestinal: no abdominal pain, no nausea and no vomiting Physical Exam Physical Exam: General- No acute distress Head- atraumatic Eyes- PERRL, EOMI, ENT- oropharynx clear Neck- supple, no JVD Lungs- clear to auscultation Heart- regular rhythm; +murmur Abdomen- normal bowel sounds, soft, nontender Extremities- no calf tenderness Neuro- alert, oriented x 3; PERRL, EOMI; no facial palsy; no dysarthria Skin- warm & dry Results & Data Results & Data ([facility]) Vital Signs (Past 12 Hours) Vital Signs Temp Pulse Pulse Resp BP BP Pulse Ox 03/31/21 09:41 81 118/85 03/31/21 07:17 36.6 C 67 18 118/72 92 03/31/21 07:00 77 03/31/21 04:00 36.6 C 03/31/21 01:36 62 03/30/21 22:40 37.1 C 61 20 127/82 98 Medications Administered Current Inpatient Medications Acetaminophen (Acetaminophen 325 Mg Tab) 650 mg PO Q4H PRN PRN Reason: Pain or Fever Stop: 04/23/21 17:01 Last Admin: 03/26/21 20:53 Dose: 325 mg Documented by: Al Hydrox/Mg Hydrox/Simethicone (Aluminum/Magnesium Susp 30 Ml Udc) 15 ml PO Q4H PRN PRN Reason: Dyspepsia Stop: 04/23/21 17:01 Aspirin (Aspirin 81 Mg Ectab) 81 mg PO DAILY DYLAN Stop: 04/24/21 08:59 Last Admin: 03/25/21 09:00 Dose: 81 mg Documented by: Docusate Sodium (Docusate Sodium 100 Mg Cap) 500 mg PO DAILY DYLAN Stop: 04/24/21 08:59 Last Admin: 03/31/21 09:39 Dose: 500 mg Documented by: Ferrous Sulfate (Ferrous Sulfate 325 Mg Tab) 325 mg PO BID DYLAN Stop: 04/23/21 20:59 Last Admin: 03/31/21 09:40 Dose: 325 mg Documented by: Fluticasone Propionate (Fluticasone Propionate Na Spr 16 Gm Btl) 2 sprays SAIRA DAILY DYLAN Stop: 04/24/21 08:59 Last Admin: 03/31/21 09:40 Dose: 2 sprays Documented by: Furosemide (Furosemide 80 Mg Tab) 80 mg PO DAILY DYLAN Stop: 04/23/21 17:01 Last Admin: 03/31/21 09:40 Dose: 80 mg Documented by: Hydroxyurea (Hydroxyurea 500 Mg Cap) 500 mg PO MoWeFr [facility] Stop: 04/23/21 17:01 Last Admin: 03/29/21 17:21 Dose: 500 mg Documented by: Loratadine (Loratadine 10 Mg Tab) 10 mg PO HS DYLAN Stop: 04/23/21 20:59 Last Admin: 03/30/21 21:08 Dose: 10 mg Documented by: Lorazepam (Lorazepam 0.5 Mg Tab) 0.5 mg PO TID PRN PRN Reason: Anxiety Stop: 04/23/21 17:01 Last Admin: 03/29/21 22:40 Dose: 0.5 mg Documented by: Losartan Potassium (Losartan Potassium 25 Mg Tab) 25 mg PO DAILY DYLAN Stop: 04/24/21 08:59 Last Admin: 03/26/21 08:17 Dose: 25 mg Documented by: Magnesium Hydroxide (Magnesium Hydroxide Susp 30 Ml Udc) 30 ml PO Q12H PRN PRN Reason: Constipation Stop: 04/23/21 17:01 Last Admin: 03/27/21 15:12 Dose: 30 ml Documented by: Magnesium Oxide (Magnesium Oxide 400 Mg Tab) 400 mg PO DAILY [facility] Stop: 04/24/21 08:59 Last Admin: 03/31/21 09:40 Dose: 400 mg Documented by: Metoprolol Succinate (Metoprolol Succ 50mg Ext Rel Tab) 100 mg PO BID [facility] Stop: 04/23/21 20:59 Last Admin: 03/31/21 09:40 Dose: 100 mg Documented by: Multivitamins/Minerals (Cerovite Adv Formula Tab) 1 tab PO DAILY [facility] Stop: 04/24/21 08:59 Last Admin: 03/31/21 09:40 Dose: 1 tab Documented by: Ondansetron HCl (Ondansetron Inj 2 Mg/Ml 2 Ml Vial) 4 mg IV Q6H PRN PRN Reason: Nausea Stop: 04/23/21 17:01 Pantoprazole Sodium (Pantoprazole 40 Mg Tab) 40 mg PO DAILY [facility]; Protocol Stop: 04/24/21 08:59 Last Admin: 03/31/21 09:40 Dose: 40 mg Documented by: Polyethylene Glycol (Polyethylene (Miralax) 17 Gm Pack) 17 gm PO DAILY PRN PRN Reason: Constipation Stop: 04/23/21 17:01 Last Admin: 03/30/21 18:06 Dose: 17 gm Documented by: Pregabalin (Pregabalin 75 Mg Cap) 75 mg PO BID [facility] Stop: 04/24/21 05:59 Last Admin: 03/31/21 09:40 Dose: 75 mg Documented by: Rosuvastatin Calcium (Rosuvastatin Calcium 10 Mg Tab) 10 mg PO HS [facility] Stop: 04/23/21 20:59 Last Admin: 03/30/21 21:08 Dose: 10 mg Documented by: Sotalol HCl (Sotalol Hcl 80 Mg Tab) 80 mg PO BID [facility] Stop: 04/23/21 20:59 Last Admin: 03/31/21 09:39 Dose: 80 mg Documented by: Spironolactone (Spironolactone 12.5 Mg Tab) 12.5 mg PO DAILY [facility] Stop: 04/24/21 08:59 Last Admin: 03/31/21 09:40 Dose: 12.5 mg Documented by: Warfarin Sodium (Warfarin Sod 2.5 Mg Tab) 2.5 mg PO [place]@1600 [facility] Stop: 04/24/21 15:59 Last Admin: 03/25/21 17:27 Dose: 2.5 mg Documented by:
--- NOTE | 2021-03-31 09:57 | Discharge Summary ---
Date of Service March 31, 2021 Admission HPI Per Admitting Provider This is an 86 yr old F who has a significant PMH of CAD with hx of CABG and stenting, PAF anticoagulated on warfarin and rhythm controlled on sotalol, Chronic HFpEF, SSS s/p PPM, HTN, HLD, GAVIN, s/p Bovine AVR, RLS, asymptomatic carotid artery stenosis, hx of freq utis, essential thrombocythemia followed by hematology, ckd-3 who presents to ED / to UTI like sx and + outpt culture for ESBL. Of significance patient recently hospitalized 02/13 to 02/17/2021 secondary to weakness, anemia requiring 1 unit of PRBC, ESBL UTI treated with IV ertapenem. She was seen in clinic on 03/16 for routine follow-up. At this visit she was complaining of UTI-like symptoms including dysuria. She was prescribed Cipro and a culture was pending. Culture returned today positive for ESBL and transferred to ED for further evaluation and IV antibiotics. Today she Noller complains of dysuria but generally feels weak and complains of, "tremors." She also complains of urinary urgency, but attributes this to her prolapsed rectum. She denies any fever, chills, sweats, lightheadedness, dizziness, chest pain, shortness of breath, cough, URI symptoms, nausea, vomiting, abdominal pain, dysuria, hematuria, melena or hematochezia. In ED patient remained hemodynamically stable. Her INR was therapeutic at 2.5. Her H&H was 8.4 and 28.7, platelet 472. Her BMP is pending at this time. Admission Exam Per Admitting Provider Constitutional: WD/WN, vitals as above, NAD, sitting up in bed, pleasant, conversing easily Head: Normocephalic, Atraumatic Eyes: PERRL, conjunctivae normal, anicteric sclerae ENMT: external ear and nose normal, oropharynx normal Neck: trachea midline, no thyromegaly normal visual inspection Respiratory: normal respiratory effort, lungs clear to auscultation, no wheeze, rales, rhonchi. Normal insp/exp effort, no accessory muscle use Cardiovascular: RRR, no murmur, + lower edema Vessels: no JVD or carotid bruit Chest: normal inspection of chest Abdomen: normal bowel sounds, soft, nontender, no hepatosplenomegaly Musculoskeletal: no cyanosis or clubbing, extremities motor strength 5/5 Skin: no rashes, warm and dry normal turgor Neurologic: PERRL, EOMI, accommodation nl, no face palsy, no dysarthria CN's II-XI intact bilaterally and moves all extremities Psychiatric: A+Ox3, euthymic affect Lymphatic: no cervical or axillary lymphadenopathy : deferred Principal Diagnosis 1) UTI due to extended-spectrum beta lactamase (ESBL) producing Escherichia coli: (2) Generalized weakness: (3) Anemia: (4) CAD (coronary artery disease) of bypass graft: (5) Paroxysmal atrial fibrillation: (6) Replacement of aortic valve: (7) Tachycardia-bradycardia syndrome: (8) CKD (chronic kidney disease) stage 2, GFR 60-89 ml/min: (9) Essential thrombocythemia: (10) HTN (hypertension): (11) HLD (hyperlipidemia): Discharge Exam General- No acute distress Head- atraumatic Eyes- PERRL, EOMI, ENT- oropharynx clear Neck- supple, no JVD Lungs- clear to auscultation Heart- regular rhythm; +murmur Abdomen- normal bowel sounds, soft, nontender Extremities- no calf tenderness Neuro- alert, oriented x 3; PERRL, EOMI; no facial palsy; no dysarthria Skin- warm & dry Discharge Data Allergies Allergy/AdvReac Type Severity Reaction Status Date / Time iodine Allergy Intermediate itching Verified 03/26/21 14:08 amiodarone Allergy Mild UNSURE Verified 03/26/21 14:08 etodolac Allergy Mild Unknown Verified 03/26/21 14:08 Sulfa (Sulfonamide Allergy Mild Unknown Verified 03/26/21 14:08 Antibiotics) gabapentin AdvReac Mild sedation Verified 03/26/21 14:08 Penicillins AdvReac Mild YEAST INF Verified 03/26/21 14:08 simvastatin AdvReac Unknown CAN'T Verified 03/26/21 14:08 REMEMBER Consultations 03/24/21 14:24 ED Decision to Admit Stat 03/26/21 07:18 Consult Gastroenterology Routine Procedures Performed Operation Date: 03/26/21 16:30 Actual Procedures p Esophagogastroduodenoscopy(Not Applicable) - Kathe Futlon DO Hospital Course (1) UTI due to extended-spectrum beta lactamase (ESBL) producing Escherichia coli: (2) Generalized weakness: (3) Anemia: (4) CAD (coronary artery disease) of bypass graft: (5) Paroxysmal atrial fibrillation: (6) Replacement of aortic valve: (7) Tachycardia-bradycardia syndrome: (8) CKD (chronic kidney disease) stage 2, GFR 60-89 ml/min: (9) Essential thrombocythemia: (10) HTN (hypertension): (11) HLD (hyperlipidemia): (12) DVT prophylaxis: This is an 86 yr old F who has a significant PMH of CAD with hx of CABG and stenting, PAF anticoagulated on warfarin and rhythm controlled on sotalol, Chronic HFpEF, SSS s/p PPM, HTN, HLD, GAVIN, s/p Bovine AVR, RLS, asymptomatic carotid artery stenosis, hx of freq utis, essential thrombocythemia followed by hematology, ckd-3 who presents to ED 2/2 to UTI like sx and + outpt culture for ESBL. Generalized weakness likely related to UTI as well as symptomatic anemia Continue PT/OT Fall precaution ESBL UTI Repeat Urine cx on admission grew Ecoli Continue IV Ertapenem to complete 7 days course Pt said that when passing gas, sometimes she accidentally leaks stool. Pt was advised to change the pad or depend very often to decrease the risk of UTI Completed 7 days course of abx Anemia FOBT Positive Iron studies done 1 month ago revealed ferritin 21.5, iron 21, TIBC 403, normal folic acid and B12 She is on iron supplement once daily She received 1unit PRBC during last admission Per patient and outpatient records she has been having intermittent hematuria microscopic and gross for the past 2 years She has been following [facility] and is scheduled for cystoscopy at the end of March Last C-scope was 2012 with polypectomy She is on Coumadin for PAF Gastro on board S/P EGD on 03/26 showed no active bleeding. received 2 unit FFP since INR is 2.7 for the EGD Discontinued IV PPI and transition to PO PPI S/P 1 unit PRBC on 03/27/21 Hgb 10.6 stable Check CBC in 1 week SSS s/p PPM Paroxysmal Afib Continue metoprolol and Sotalol Continue Coumadin INR 2.8 today . Continue Coumadin Continue monitor PT/INR Nocturnal hypoxia Overnight pulse oximetry showed pt required oxygen at night Continue oxygen supplement HS for now 2 step done today and pt requires 2L NC with ambulation Will notify case management to arrange for oxygen Constipation Continue stool softener and laxative Hypokalemia K 3.6 today Continue oxygen supplement Check BMP in 1 week CAD s/p stenting/CABG hx of AVR Continue statin and metoprolol Aspirin on hold due to +FOBT Stable Chronic HFpEF No sign of fluid overload Continue metoprolol Lasix and Aldactone resumed Continue monitor BMP daily weight, strict I and O RLS continue lyrica CKD-3 baseline cr 1.0-1.2 Creatinine 1.1 Stale DVT prophylaxis on Coumadin with INR 2.8 Full code PCP: Brenna Total Time Total Time Spent Total Time Spent (In Minutes): 35 Total Time Includes: Examination of the Patient, Discharge Planning, Medication Reconciliation and Communication With Other Providers Discharge Plan Discharge Items Patient Disposition: Home - Self-Care Reason For Visit: ESBL UTI Discharge Diagnosis: 1) UTI due to extended-spectrum beta lactamase (ESBL) producing Escherichia coli: (2) Generalized weakness: (3) Anemia: (4) CAD (coronary artery disease) of bypass graft: (5) Paroxysmal atrial fibrillation: (6) Replacement of aortic valve: (7) Tachycardia-bradycardia syndrome: (8) CKD (chronic kidney disease) stage 2, GFR 60-89 ml/min: (9) Essential thrombocythemia: (10) HTN (hypertension): (11) HLD (hyperlipidemia): Activity: Resume your previous activity Non-emergency contact: Primary Care Provider and [employer] Super[employer] Call non-emergency contact if: you have any medication questions Follow-up/Referrals: Regan Ceja DO [Primary Care Provider] - (Date & Time 04/05/2021 3:00 PM Provider Regan Ceja DO Department General Internal Medicine [facility] ) Diet: Heart Healthy Addtl Attending Provider Instructions: Follow up with your primary care provider Dr. Ceja on 04/05/2021 @3:00 PM Follow up with gastroenterology to arrange for the colonoscopy (Your provider will arrange for the referral) Follow up with the coumadin clinic to monitor your PT/INR Check CBC in 1 week to monitor hemoglobin Check BMP in 1 week to monitor your electrolytes Avoid any NSAID such as motrin aleve, advil, naproxen, ibuprofen,...due to risk of bleeding Seek medical attention or notify your physician if you develop any abnormal bleeding fall precaution Continue 2 Liter nasal canula oxygen with ambulation and at night (sleep) Pending Studies at Discharge: No Stand-Alone Forms: My [facility], Smoking Cessation Medications and DC Order Prescriptions: Continued pregabalin [Lyrica] 50 mg capsule 50 mg PO BID RF: 0 hydroxyurea 500 mg capsule 500 mg PO 3XWK RF: 0 warfarin 2.5 mg Tablet 2.5 mg PO SUTUTHSA RF: 0 losartan 25 mg tablet 25 mg PO DAILY RF: 0 sotalol 80 mg tablet 80 mg PO BID RF: 0 metoprolol succinate 100 mg tablet extended release 24 hr 100 mg PO BID RF: 0 warfarin 2.5 mg tablet 1.25 mg PO MOWEFR RF: 0 aspirin 81 mg Tablet,Delayed Release (Dr/Ec) 81 mg PO DAILY RF: 0 spironolactone 25 mg tablet 12.5 mg PO DAILY RF: 0 lorazepam 0.5 mg tablet 0.5 mg PO TID PRN (Reason: Anxiety) RF: 0 furosemide [Lasix] 80 mg Tablet 80 mg PO 3XWK PRN (Reason: Edema) RF: 0 furosemide [Lasix] 80 mg Tablet 80 mg PO DAILY RF: 0 diphenhydramine HCl [Benadryl] 25 mg Capsule 25 mg PO Q6H PRN (Reason: allergies) RF: 0 ferrous sulfate [iron] 325 mg (65 mg iron) Tablet 325 mg PO HS RF: 0 nitroglycerin 0.4 mg tablet, sublingual 0.4 mg sublingual UD PRN (Reason: Chest Pain) RF: 0 docusate sodium [Colace] 100 mg Capsule 500 mg PO DAILY RF: 0 mometasone [Nasonex] 50 mcg/actuation [place],Non-Aerosol 2 spray INTRANASAL DAILY RF: 0 epinephrine [EpiPen] 0.3 mg/0.3 mL Auto-Injector 0.3 mg IM UD PRN (Reason: Allergic Reaction) RF: 0 loratadine 10 mg Tablet 10 mg PO HS RF: 0 [id number] Tablet 1 tab PO DAILY RF: 0 rosuvastatin [Crestor] 10 mg Tablet 10 mg PO HS RF: 0 omeprazole 20 mg Tablet,Delayed Release (Dr/Ec) 20 mg PO DAILY RF: 0 camphor-menthol 0.2-3.5 % Gel 1 applic TOPICAL BID PRN (Reason: Pain) RF: 0 Caltrate + D3 Plus Minerals 300 mg-800 unit -25 mg-0.5 mg Tablet 1 tab PO BID RF: 0 magnesium oxide 400 mg magnesium Tablet 400 mg PO DAILY RF: 0 Discharge Orders: Discharge Order (Routine); Ordered 03/31/21 Ordered By: Rafael Keller Admission Data Admit Date/Time: 03/24/21 14:55 Attending Provider: Rafael Keller Admit Provider: David Melendez Primary Care Provider: Regan Ceja Other Providers: David Melendez ; Faraz Madrigal ; [place]ia Johnson ; Jeremiah Miller ; Adrienne Townsend ; Vikram Jiménez ; Kathe Fulton ; Gypsy Lucas ; Didier Mcginnis ; Anabel Champion ; Valentine Andrea ; Alyx Cruz ; Irene Del Angel ; Katharine Carcamo ; Ella Bennett Other Interventions: Discharge Summary Assessment (RN) Last Done: 03/26/21 14:50
[2021-03-31 10:00] LABS: INR 2.4 (0.9-1.1); Prothrombin Time 22.7 Seconds (9.0-12.0)
[2021-03-31 10:14] LABS: BUN Creatinine Ratio 24.1 (10-20); Calcium 9.5 mg/dl (8.5-10.1); Creatinine Clr Calc Pharmacy 37.6 ml/min; Est GFR (African American) 56.7 ml/min; Potassium 3.8 mmol/L (3.5-5.1)
[2021-03-31] MEDS ORDERED: POTASSIUM CHLORIDE CRTAB 20 MEQ TABCR PO STA (11:02)
== END 2021-03-31 13:36 | disposition home or self-care (01) | DRG 690 ==
LOC: ED 13:17 → 2W 14:55 → SUATTDRO 14:55 → 2W 16:30

== ENCOUNTER 2021-09-02 07:31 | Observation (INO) ==
--- NOTE | 2021-09-02 07:56 | Emergency Department Note ---
History of Present Illness General Chief complaint: Chest Pain Stated complaint: CHEST DISCOMFORT Time Seen by Provider: 09/02/21 07:34 Source: patient Mode of arrival: ambulatory Limitations: no limitations History of Present Illness This patient is an 86-year-old female who has a history of cardiac disease, comes in after waking up around 4:00 and feeling she had some indigestion she feels like there is a lump in her throat occasionally feels burning no chest pain short or shortness of breath. She took 3 nitroglycerin without any change. She said when she had her heart attack in 2004 she felt similar so she was concerned she is also had a CABG in 2005 and a stent in 2006. She did call EMS and they arrived and gave her aspirin. She appears comfortable no trouble speaking or swallowing no focal numbness or weakness. No drooling no sore throat. She does have a pacemaker and is also on Coumadin. She did have a valve replacement as well and she thinks it was a porcine valve but she is not sure. No lower extremity pain she has some chronic lower extremity edema which she says is gotten better. No fever chills or cough she is at the [employer]. Nothing seemed to make her pain better or worse. She said after the n itro she belched a few times and may have felt slightly better Home Medications Medication Instructions Recorded Confirmed Type aspirin 81 mg tablet,delayed 81 mg PO DAILY 01/24/21 09/02/21 History release calcium carb 300 mg-D3 800 1 tab PO BID 01/24/21 09/02/21 History unit-mag ox 25 mg-scleroscope tester 0.5 mg-cristine-Zn tablet (Caltrate + D3 Plus Minerals) camphor-menthol 0.2 %-3.5 % 1 applic TOPICAL BID PRN 01/24/21 09/02/21 History topical gel diphenhydramine HCl 25 mg capsule 25 mg PO Q6H PRN 01/24/21 09/02/21 History (Benadryl) docusate sodium 100 mg capsule 400 mg PO DAILY 01/24/21 09/02/21 History (Colace) epinephrine 0.3 mg/0.3 mL 0.3 mg IM UD PRN 01/24/21 09/02/21 History injection, auto-injector (EpiPen) ferrous sulfate 325 mg (65 mg 325 mg PO HS 01/24/21 09/02/21 History iron) tablet (iron) furosemide 80 mg tablet (Lasix) 80 mg PO DAILY 01/24/21 09/02/21 History loratadine 10 mg tablet 10 mg PO HS 01/24/21 09/02/21 History lorazepam 0.5 mg tablet 0.5 mg PO TID PRN 01/24/21 09/02/21 History magnesium oxide 400 mg PO DAILY 01/24/21 09/02/21 History metoprolol succinate 100 mg 150 mg PO BID 01/24/21 09/02/21 History tablet,extended release 24 hr mometasone 50 mcg/actuation nasal 2 spray INTRANASAL DAILY 01/24/21 09/02/21 History spray (Nasonex) [id number]-vyevof tablet 1 tab PO DAILY 01/24/21 09/02/21 History nitroglycerin 0.4 mg sublingual 0.4 mg SUBLINGUAL UD PRN 01/24/21 09/02/21 History tablet omeprazole 20 mg tablet,delayed 20 mg PO DAILY 01/24/21 09/02/21 History release rosuvastatin 10 mg tablet (Crestor) 10 mg PO HS 01/24/21 09/02/21 History spironolactone 25 mg tablet 12.5 mg PO DAILY 01/24/21 09/02/21 History hydroxyurea 500 mg capsule 500 mg PO [id number] 03/24/21 09/02/21 History pregabalin 50 mg capsule (Lyrica) 50 mg PO BID 03/24/21 09/02/21 History warfarin 2.5 mg tablet 2.5 mg PO SUTUTHSA 03/24/21 09/02/21 History nitrofurantoin 100 mg PO DAILY 09/02/21 09/02/21 History monohydrate/macrocrystals 100 mg capsule warfarin 2.5 mg tablet 1.25 mg PO MOWEFR 09/02/21 09/02/21 History Allergies Allergy/AdvReac Type Severity Reaction Status Date / Time iodine Allergy Intermediate itching Verified 03/26/21 14:08 amiodarone Allergy Mild UNSURE Verified 03/26/21 14:08 etodolac Allergy Mild Unknown Verified 03/26/21 14:08 Sulfa (Sulfonamide Allergy Mild Unknown Verified 03/26/21 14:08 Antibiotics) gabapentin AdvReac Mild sedation Verified 03/26/21 14:08 Penicillins AdvReac Mild YEAST INF Verified 03/26/21 14:08 simvastatin AdvReac Unknown CAN'T Verified 03/26/21 14:08 REMEMBER Past Med/Surg History Medical History Anemia ASCVD (arteriosclerotic cardiovascular disease) 2006 - CABG x 3, bioproesthetic aortic valve replacement 2006 - PCI and stenting to SVG to RCA occlusion Atrial fibrillation, persistent Cardiac pacemaker in situ Carotid artery occlusion (Unknown) Chronic diastolic CHF (congestive heart failure) CKD (chronic kidney disease), stage III Current use of custodial 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 Dermatitis Replacement of aortic valve (Unknown) [place] [place] " Sensorineural hearing loss of both ears Sinus node dysfunction 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 UTI due to extended-spectrum beta lactamase (ESBL) producing Escherichia coli Surgical History Coronary artery bypass grafting (Unknown) [place] [place] VARGHESE to LAD SVG's to diagonal, obtuse marginal, RCA " History of colonoscopy with polypectomy History of cystoscopy History of tubal ligation Implantation of aortic valve prosthesis or synthetic device (Unknown) Placement of stent in coronary artery (Unknown) "RCA December 2006 " Status post transcatheter aortic valve replacement (TAVR) using bioprosthesis Stented coronary artery (Unknown) Total abdominal hysterectomy with bilateral salpingo-oophorectomy (Unknown) Family History Father Prostate cancer Mother Diabetes Sister Coronary heart disease Social History Smoking Status: Never smoker Second Hand Exposure: No; Hx Alcohol Use: No Hx Substance Use: No Preferred Language: Slovak Communication Ability: Effective Visual Impairment: No Limitations Hearing Ability: Normal Mortar Man Required: No Beliefs That Will Affect Care: None marital status: / Current Living Situation: Alone Feels Safe at Home: Yes Assistive Devices: Walker Review of Systems A total of 10 systems reviewed and were otherwise negative Physical Exam Vital Signs Vital Signs - 24 hr 09/02/21 07:02 09/02/21 07:39 09/02/21 08:00 Temperature 36.7 C Temperature Source Oral Pulse Rate 84 75 76 Pulse Rate from SpO2 Sensor 76 Pulse Rhythm Regular Pulse Strength Normal Respiratory Rate 20 20 25 H Respiratory Effort / Characteristics Non-Labored Respiratory Depth Normal Blood Pressure 148/66 H Blood Pressure Mean 93 Pulse Oximetry 98 93 Oxygen Delivery Method Room Air Sepsis Recent Fever Within 48 Hours No Sepsis New/Unexplained Change in Mental Status No Sepsis Action Taken by Nursing No Action Required 09/02/21 08:30 09/02/21 09:00 09/02/21 09:30 Temperature Temperature Source Pulse Rate 77 78 76 Pulse Rate from SpO2 Sensor 82 77 Pulse Rhythm Pulse Strength Respiratory Rate 19 18 17 Respiratory Effort / Characteristics Respiratory Depth Blood Pressure 130/80 155/88 H Blood Pressure Mean 96 110 Pulse Oximetry 94 96 Oxygen Delivery Method Sepsis Recent Fever Within 48 Hours Sepsis New/Unexplained Change in Mental Status Sepsis Action Taken by Nursing 09/02/21 10:00 Temperature Temperature Source Pulse Rate 76 Pulse Rate from SpO2 Sensor 80 Pulse Rhythm Pulse Strength Respiratory Rate 17 Respiratory Effort / Characteristics Respiratory Depth Blood Pressure Blood Pressure Mean Pulse Oximetry 95 Oxygen Delivery Method Sepsis Recent Fever Within 48 Hours Sepsis New/Unexplained Change in Mental Status Sepsis Action Taken by Nursing General: Well developed well nourished older female who appears in no acute distress, breathing comfortably on room air. Normal speech HEENT: Normal cephalic atraumatic. Pupils are equal round and reactive to light. Extraocular movements are intact. Oropharynx is pink with moist mucous membranes. No swelling of the mouth lips or tongue. Posterior oropharynx is wide open no swelling. Floor the mouth is soft without Jose's angina. Speaking and swallowing without any difficulty. Neck: Supple with a midline trachea. No meningeal signs or stiffness, no JVD or bruits. No Stridor. Chest: Clear to auscultation bilaterally. No wheezes or rhonchi. No increased work of breathing. Heart: Regular rate and rhythm without murmurs or gallops. Abdomen: Soft nontender, nondistended without rebound guarding or rigidity. Extremities: No cyanosis clubbing. Trace bilateral lower extremity edema. No calf tenderness or assymetry Spine/Back. Non tender to palpation. No CVA tenderness Skin: Good turgor without rashes. Neurologic exam: Cranial nerves two through 12 are intact. Motor and sensation are intact and symmetrical throughout. Course Administered Medications Discontinued Medications Aspirin (Aspirin 81 Mg Ectab) 81 mg PO ONE ONE Stop: 09/02/21 13:33 Last Admin: 09/02/21 14:45 Dose: 81 mg Documented by: [id number] Furosemide (Furosemide 80 Mg Tab) 80 mg PO ONE ONE Stop: 09/02/21 13:33 Last Admin: 09/02/21 14:45 Dose: 80 mg Documented by: [id number] Nitrofurantoin Macrocrystals (Nitrofurantoin Monohydrate 100 Mg Cap) 100 mg PO NOW STA Stop: 09/02/21 13:33 Last Admin: 09/02/21 14:45 Dose: 100 mg Documented by: [id number] Pantoprazole Sodium (Pantoprazole 40 Mg Tab) 40 mg PO ONE ONE Stop: 09/02/21 13:35 Last Admin: 09/02/21 14:45 Dose: 40 mg Documented by: [id number] Potassium Chloride (Potassium Chloride 20 Meq/15 Ml Udc) 40 meq PO NOW ONE Stop: 09/02/21 13:51 Last Admin: 09/02/21 14:44 Dose: 40 meq Documented by: [id number] Spironolactone (Spironolactone 12.5 Mg Tab) 12.5 mg PO NOW ONE Stop: 09/02/21 13:35 Last Admin: 09/02/21 14:45 Dose: 12.5 mg Documented by: [id number] Medical Decision Making Differential Diagnosis Acute coronary syndrome, arrhythmia, GERD, pharyngitis, anxiety, neurologic process, electrolyte or metabolic abnormality, infection Medical Records Attestation: I reviewed the patient's medical records. Home Medications Current Medication List: was personally reviewed by me Laboratory Data Attestation: I reviewed the patient's lab results. Result diagrams: 09/02/21 08:05 09/02/21 08:05 Lab Results 09/02/21 09/02/21 09/02/21 Range/Units 08:05 08:05 08:05 WBC 10.14 (4.8-10.8) K/uL RBC 4.21 (4.2-5.4) M/uL Hgb 13.1 (12.0-16.0) g/dL Hct 42.9 (37-47) % MCV 101.9 H (80-100) fL MCH 31.1 (25-34) pg MCHC 30.5 L (32-36) g/dL RDW Std Deviation 60.5 H (36.4-46.3) fL RDW Coeff of Ge 16.3 H (11.5-14.5) % Plt Count 515 H (130-400) K/uL MPV 11.5 H (7.4-10.4) fL Immature Gran % (Auto) 0.2 % Neut % (Auto) 80.6 % Lymph % (Auto) 6.0 % Kleberg % (Auto) 9.6 % Eos % (Auto) 2.8 % Baso % (Auto) 0.8 % Neut # (Auto) 8.18 H (1.4-6.5) K/uL Lymph # (Auto) 0.61 L (1.2-3.4) K/uL Kleberg # (Auto) 0.97 H (0.11-0.59) K/uL Eos # (Auto) 0.28 (0-0.5) K/uL Baso # (Auto) 0.08 (0-0.2) K/uL Immature Gran # (Auto) 0.02 (0.00-0.02) K/uL PT 30.1 H (9.0-12.0) Seconds INR 3.3 H (0.9-1.1) APTT 44.7 H (21.0-31.0) Seconds PTT Ratio 1.7 Sodium 142 (136-145) mmol/L Potassium 3.4 L (3.5-5.1) mmol/L Chloride 103 (98-107) mmol/L Carbon Dioxide 32 (21-32) mmol/L Anion Gap 6.0 (3-11) BUN 23 H (7-18) mg/dl Creatinine 1.23 H (0.6-1.2) mg/dl Est Cr Clr Drug Dosing Not Reportable Est GFR ( Amer) 46.3 ml/min Est GFR (Non-Af Amer) 40.0 ml/min BUN/Creatinine Ratio 18.3 (10-20) Glucose 128 H (70-99) mg/dl Calcium 9.3 (8.5-10.1) mg/dl Magnesium (1.8-2.4) mg/dl Total Bilirubin 0.6 (0.2-1) mg/dl AST 20 (15-37) U/L ALT 20 (12-78) U/L Alkaline Phosphatase 66 (45-117) U/L Troponin I < 0.015 (0-0.045) ng/ml Total Protein 7.5 (6.4-8.2) gm/dl Albumin 3.3 L (3.4-5.0) gm/dl Globulin 4.2 H (2.5-4.0) gm/dl Albumin/Globulin Ratio 0.8 L (0.9-2) Lipase 190 (73-393) U/L COVID-19 Eval Order SARS-CoV-2 (PCR) (Negative) 09/02/21 09/02/21 09/02/21 Range/Units 08:05 08:45 08:45 WBC (4.8-10.8) K/uL RBC (4.2-5.4) M/uL Hgb (12.0-16.0) g/dL Hct (37-47) % MCV (80-100) fL MCH (25-34) pg MCHC (32-36) g/dL RDW Std Deviation (36.4-46.3) fL RDW Coeff of Ge (11.5-14.5) % Plt Count (130-400) K/uL MPV (7.4-10.4) fL Immature Gran % (Auto) % Neut % (Auto) % Lymph % (Auto) % Kleberg % (Auto) % Eos % (Auto) % Baso % (Auto) % Neut # (Auto) (1.4-6.5) K/uL Lymph # (Auto) (1.2-3.4) K/uL Kleberg # (Auto) (0.11-0.59) K/uL Eos # (Auto) (0-0.5) K/uL Baso # (Auto) (0-0.2) K/uL Immature Gran # (Auto) (0.00-0.02) K/uL PT (9.0-12.0) Seconds INR (0.9-1.1) APTT (21.0-31.0) Seconds PTT Ratio Sodium (136-145) mmol/L Potassium (3.5-5.1) mmol/L Chloride (98-107) mmol/L Carbon Dioxide (21-32) mmol/L Anion Gap (3-11) BUN (7-18) mg/dl Creatinine (0.6-1.2) mg/dl Est Cr Clr Drug Dosing Est GFR ( Amer) ml/min Est GFR (Non-Af Amer) ml/min BUN/Creatinine Ratio (10-20) Glucose (70-99) mg/dl Calcium (8.5-10.1) mg/dl Magnesium 2.0 (1.8-2.4) mg/dl Total Bilirubin (0.2-1) mg/dl AST (15-37) U/L ALT (12-78) U/L Alkaline Phosphatase (45-117) U/L Troponin I (0-0.045) ng/ml Total Protein (6.4-8.2) gm/dl Albumin (3.4-5.0) gm/dl Globulin (2.5-4.0) gm/dl Albumin/Globulin Ratio (0.9-2) Lipase (73-393) U/L COVID-19 Eval Order Covid19 at [facility] SARS-CoV-2 (PCR) NEGATIVE (Negative) Imaging Data Attestation: I personally reviewed and interpreted this imaging study as follows: My Impression: Chest x-rayno acute infiltrate, failure, pneumothorax. Pacemaker in place Radiologist's Impression: Chest X-Ray 09/02/21 07:48 XR chest 1V portable HISTORY: 86 years-old Female Chest Pain acute atypical chest pain COMPARISON: Chest radiograph 03/27/2021 TECHNIQUE: Portable AP chest FINDINGS: Cardiac silhouette is enlarged. Prior median sternotomy with probable CABG. Left subclavian pacer. No pneumothorax, large pleural effusion, airspace consolidation or overt pulmonary edema. Chronic reticular interstitial opacities. Degenerative changes of the shoulders and spine. IMPRESSION: Cardiomegaly with chronic interstitial coarsening. ACT 112: Negative or not required by law. The above report was generated using voice recognition software. It may contain grammatical, syntax or spelling errors. Electronically signed by: Zacarias Valencia M.D. 09/02/2021 8:24 AM ECG Data Attestation: I personally reviewed and interpreted this ECG as follows: Indication: + chest pain Rate (beats per minute): 79 Rhythm: + atrial fibrillation and + other (Intermittently paced rhythm) ECG Intervals/blocks: + Right Bundle branch block, + IVCD and + Normal QT ECG Elkin: + Normal ECG ST segments: + Normal ST segments ECG Findings: + PVCs and + Other (Nonspecific T wave abnormality); no PACs Comparison ECG Date: from (03/30/21) Change: the following changes noted (PVC and nonspecific T waves in now present) MDM Narrative This patient comes in as described above. She was placed on a clinical research monitor in room C9. She has a vague burning or fullness in her throat that she feels was similar to her AR in the past. She was placed on a clinical research monitor and EKG multiple blood testing was obtained. IV access was established. She has received aspirin and 3 nitros prior to arrival. she was offered a GI cocktail but declined. She has remained stable. Her EKG does not suggest ischemic changes it does look like it is in a flutter with underlying paced rhythm. I did interrogate her pacemaker and [employer] rep called me and told me that she has been in a flutter since June but no rapid rate or other arrhythmias. Her troponin is negative. Chest x-ray was unremarkable with no acute electrolyte or metabolic abnormalities. Given her significant cardiac history, I do think she warrants a further cardiac work-up as an inpatient. I did consult the [facility] [address] and the patient was seen by Kiley em in the emergency department. Continuous cardiac monitoring: Orders placed in EMR for continuous cardiac monitoring. Upon my interpretation she was noted to be in intermittent paced rhythm with underlying a fib/flutter with a rate of 75. Impression & Plan Chest pain, AF (atrial fibrillation), History of coronary artery disease, Current use of custodial 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, Pacemaker Discharge Plan Visit Data Chief Complaint: Chest Pain Stated Complaint: CHEST DISCOMFORT ED Provider: Higinio Strong Discharge Problem: Chest pain, AF (atrial fibrillation), History of coronary artery disease, Current use of custodial 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, Pacemaker Patient Disposition: Admitted As Inpatient Discharge Instructions Interventions: ED Discharge Assessment Last Done: 09/02/21 12:50
[2021-09-02 08:14] LABS: Basophils # (auto) 0.08 K/uL (0-0.2); Basophils % (auto) 0.8 %; Eosinophils # (auto) 0.28 K/uL (0-0.5); Eosinophils % (auto) 2.8 %; Hematocrit (blood only) 42.9 % (37-47); Hemoglobin 13.1 g/dL (12.0-16.0); Immature Granulocytes # (auto) 0.02 K/uL (0.00-0.02); Immature Granulocytes % (auto) 0.2 %; Lymphocytes # (auto) 0.61 K/uL (1.2-3.4); Mean Corpuscular Hemoglobin 31.1 pg (25-34); Mean Corpuscular Hgb Conc 30.5 g/dL (32-36); Mean Corpuscular Volume 101.9 fL (80-100); Mean Platelet Volume 11.5 fL (7.4-10.4); Monocytes # (auto) 0.97 K/uL (0.11-0.59); Monocytes % (auto) 9.6 %; Neutrophils # (auto) 8.18 K/uL (1.4-6.5); Neutrophils % (auto) 80.6 %; Platelet Count 515 K/uL (130-400); RDW Coefficient of Variation 16.3 % (11.5-14.5); RDW Standard Deviation 60.5 fL (36.4-46.3); Red Blood Count 4.21 M/uL (4.2-5.4); White Blood Count 10.14 K/uL (4.8-10.8)
[2021-09-02 08:25] LABS: INR 3.3 (0.9-1.1); Partial Thromboplastin Ratio 1.7; Partial Thromboplastin Time 44.7 Seconds (21.0-31.0); Prothrombin Time 30.1 Seconds (9.0-12.0)
--- NOTE | 2021-09-02 08:25 | XRay Report ---
XR chest 1V portable HISTORY: 86 years-old Female Chest Pain acute atypical chest pain COMPARISON: Chest radiograph 03/27/2021 TECHNIQUE: Portable AP chest FINDINGS: Cardiac silhouette is enlarged. Prior median sternotomy with probable CABG. Left subclavian pacer. No pneumothorax, large pleural effusion, airspace consolidation or overt pulmonary edema. Chronic retic ular interstitial opacities. Degenerative changes of the shoulders and spine. IMPRESSION: Cardiomegaly with chronic interstitial coarsening. ACT 112: Negative or not required by law. The above report was generated using voice recognition software. It may contain grammatical, syntax o r spelling errors. Electronically signed by: Zacarias Valencia M.D. 09/02/2021 8:24 AM
[2021-09-02 08:32] LABS: Alanine Aminotransferase 20 U/L (12-78); Albumin Level 3.3 gm/dl (3.4-5.0); Aspartate Aminotransferase 20 U/L (15-37); BUN Creatinine Ratio 18.3 (10-20); Blood Urea Nitrogen 23 mg/dl (7-18); Calcium 9.3 mg/dl (8.5-10.1); Carbon Dioxide 32 mmol/L (21-32); Chloride 103 mmol/L (98-107); Est GFR (African American) 46.3 ml/min; Glucose 128 mg/dl (70-99); Lipase 190 U/L (73-393); Potassium 3.4 mmol/L (3.5-5.1); Sodium 142 mmol/L (136-145)
[2021-09-02 08:37] LABS: Albumin Globulin Ratio 0.8 (0.9-2); Alkaline Phosphatase 66 U/L (45-117); Bilirubin,Total 0.6 mg/dl (0.2-1); Globulin 4.2 gm/dl (2.5-4.0); Total Protein 7.5 gm/dl (6.4-8.2); Troponin I < 0.015 ng/ml (0-0.045)
--- NOTE | 2021-09-02 12:08 | Cardiology Consultation ---
Date of Consultation September 02, 2021 Assessment & Plan (1) Current use of snf 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: (2) Pacemaker: (3) Atrial fibrillation, persistent: (4) ASCVD (arteriosclerotic cardiovascular disease): (5) Throat burning: (6) Chest pain, unspecified: (7) Sinus node dysfunction: (8) Status post transcatheter aortic valve replacement (TAVR) using bioprosthesis: (9) Cardiac pacemaker in situ: Serial troponin's EKG in AM, with chest pain/discomfort Resting echocardiography NPO after midnight for possible pharmacological stress testing (Lexiscan). Further recommendations pending the above, patient's hospitalization, evaluation by Dr. Goyal Supervising Physician Co-Signing Physician Notes Patient seen examined at the bedside. Preliminary review of bedside 2D transthoracic echocardiogram demonstrates preserved LV systolic function without regional wall motion abnormality. Patient continues to report difficulty swallowing and mild discomfort in her mid tracheal region. Feels "as if some thing is stuck". No chest discomfort or heaviness. Denies dyspnea at rest. No orthopnea or PND. Admits to consuming excessive green vegetables over the past week, however, INR remains mildly supratherapeutic. No signs/symptoms of GI/ blood loss. PE: VSS. Gen: NAD, AAOx3. Heart: Irregular rhythm, normal S1-S2. 2/6 systolic ejection murmur heard best at the right second intercostal space without radiation. Lungs: Clear bilateral, no rales, rhonchi, wheeze. Extremities: No edema. Neurologic: No focal motor deficit, moves all extremities, cranial nerves grossly intact. A/P: Agree with above PA-C history, physical exam, assessment and plan. Soft tissue neck CT reporting circumferential esophageal wall thickening suggesting esophagitis. Second set of troponin pending at this time. Preliminary review of bedside echo without regional wall motion normality. Continue current outpatient cardiovascular medications as previously ordered. Consider gastroenterology consultation for further evaluation of esophagitis and possible endoscopy. History of Present Illness Reason for Consultation: Afib/flutter, history of CAD Requesting Physician: Lynn Attending Physician: Unknown at the time of consultation History of Present Illness Ms. Cruz is a very pleasant 86 year old female who was actually evaluated in the outpatient cardiology clinic on August 30, 2021, presenting at that time in routine evaluation. She was notably found to have persistent atrial fibrillation with a controlled ventricular response despite chronic sotalol therapy and high-dose metoprolol. She is chronically anticoagulated with Coumadin without bleeding issues. Options of management were discussed with the patient and her primary internet marketing intern. Via shared decision making, we decided to proceed with a rate control strategy along with chronic 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. Sotalol was discontinued and metoprolol succinate was increased from 100 mg twice a day to 150 mg twice per day. Laboratory work was requested and she was referred for resting echocardiogram. Ms. Cruz notes "I think I did a dumb thing. I've been hitting the salads pretty hard this week." She notes "something is in my throat." This morning, around 4 AM, she awoke to use the restroom. She noticed "a thickness in my throat, it almost feels like I took a pill and it's stuck." She notes "sinus drainage that would go anywhere but my throat." Notes "I though it was heartburn but it felt similar to my heart attack." Notes taking three sublingual nitroglycerin at home "and it didn't go diddly squat." Thereafter she become anxious and nervous, summoning EMS who transported her to [facility] ER for further evaluation and treatment. Initial troponin is negative, less than 0.015 ng/mL. EKG revealed atrial fibr illation with intermittent ventricular pacing, premature ventricular complexes, right bundle branch block. There are, what appears to be, new lateral T wave changes. Resting echocardiography was obtained just prior to my evaluation in Room C9 with internet marketing intern interpretation pending. CXR reveals cardiomegaly with chronic interstitial coarsening. Soft tissue neck CT is pending. WBC count was normal. H&H 13.1 and 42.9. Plt Count 515 K. INR 3.3. Mild hypokalemia observed with a potassium of 3.4 mmol/L. Sodium was normal at 142. BUN and Creatinine are 23 and 1.23 mg/dL. No exertional chest pain, discomfort, or burning. No overt palpitations. No chest congestion. No orthopnea or PND. Edema has improved from earlier this week, nonexistent currently. No dizziness or syncope. No melena or hem atochezia. No uremic symptoms. Full ROS: Essential thrombocytopenia. CKD. Chronic insomnia. Tremor. RLS. Untreated mild sleep apnea. Spinal stenosis. Chronic back pain. Knee pain, statu spost arthroscopy. Osteoporosis. Skin cancer. Cardiac Problem List: Status post AVR and CABG in April 2006 receiving a #19 Mary-Good bioprosthesis in the aortic valve position, VARGHESE graft to the LAD, SVG with sequential grafting from LAD diagonal to the circumflex obtuse marginal, and a SVG to the RCA. Recurrent angina with resultant coronary intervention of the right coronary artery, PCI and stenting in December of 2006 with documented saphenous vein graft occlusion to the right coronary artery at that time. Diastolic congestive heart failure Persistent atrial fibrillation. Sotalol recently (August 30, 2021) discontinued. History of intolerance to amiodarone Sinus node dysfunction status post April 08, 2014 dual chamber pacemaker implantation. Hypertension. Hyperlipidemia. Lipids well controlled. LDL 51 mg/dL on 06/22/2021, with normal LFTs observed at that time Mild bilateral internal carotid artery disease. Last duplex was in November 2019 with results unchanged for the past 6+ years. Additional PMH/PSH: Bladder surgery. Colonoscopy with polypectomy. Tubal ligation. Hysterectomy. Family History: Father with prostate cancer. Sister with CAD. Social History: Nonsmoker. No alcohol. No illegal drug use. . Four children. ROS is otherwise as stated above, negative or noncontributory. Allergies Allergy/AdvReac Type Severity Reaction Status Date / Time iodine Allergy Intermediate itching Verified 03/26/21 14:08 amiodarone Allergy Mild UNSURE Verified 03/26/21 14:08 etodolac Allergy Mild Unknown Verified 03/26/21 14:08 Sulfa (Sulfonamide Allergy Mild Unknown Verified 03/26/21 14:08 Antibiotics) gabapentin AdvReac Mild sedation Verified 03/26/21 14:08 Penicillins AdvReac Mild YEAST INF Verified 03/26/21 14:08 simvastatin AdvReac Unknown CAN'T Verified 03/26/21 14:08 REMEMBER Home Medications Medication Instructions Recorded Confirmed Type aspirin 81 mg tablet,delayed 81 mg PO DAILY 01/24/21 09/02/21 History release calcium carb 300 mg-D3 800 1 tab PO BID 01/24/21 09/02/21 History unit-mag ox 25 mg-photocopying equipment mechanic 0.5 mg-cristine-Zn tablet (Caltrate + D3 Plus Minerals) camphor-menthol 0.2 %-3.5 % 1 applic TOPICAL BID PRN 04/04/21 11/11/21 History topical gel diphenhydramine HCl 25 mg capsule 25 mg PO Q6H PRN 01/24/21 09/02/21 History (Benadryl) docusate sodium 100 mg capsule 400 mg PO DAILY 01/24/21 09/02/21 History (Colace) epinephrine 0.3 mg/0.3 mL 0.3 mg IM UD PRN 01/24/21 09/02/21 History injection, auto-injector (EpiPen) ferrous sulfate 325 mg (65 mg 325 mg PO HS 01/24/21 09/02/21 History iron) tablet (iron) furosemide 80 mg tablet (Lasix) 80 mg PO DAILY 01/24/21 09/02/21 History loratadine 10 mg tablet 10 mg PO HS 01/24/21 09/02/21 History lorazepam 0.5 mg tablet 0.5 mg PO TID PRN 01/24/21 09/02/21 History magnesium oxide 400 mg PO DAILY 01/24/21 09/02/21 History metoprolol succinate 100 mg 150 mg PO BID 01/24/21 09/02/21 History tablet,extended release 24 hr mometasone 50 mcg/actuation nasal 2 spray INTRANASAL DAILY 01/24/21 09/02/21 History spray (Nasonex) hubcspktwyxg-lumbxnxi-bgqxym tablet 1 tab PO DAILY 01/24/21 09/02/21 History nitroglycerin 0.4 mg sublingual 0.4 mg SUBLINGUAL UD PRN 01/24/21 09/02/21 History tablet omeprazole 20 mg tablet,delayed 20 mg PO DAILY 01/24/21 09/02/21 History release rosuvastatin 10 mg tablet (Crestor) 10 mg PO HS 01/24/21 09/02/21 History spironolactone 25 mg tablet 12.5 mg PO DAILY 01/24/21 09/02/21 History hydroxyurea 500 mg capsule 500 mg PO 3XWK 03/24/21 09/02/21 History pregabalin 50 mg capsule (Lyrica) 50 mg PO BID 03/24/21 09/02/21 History warfarin 2.5 mg tablet 2.5 mg PO SUTUTHSA 03/24/21 09/02/21 History nitrofurantoin 100 mg PO DAILY 09/02/21 09/02/21 History monohydrate/macrocrystals 100 mg capsule warfarin 2.5 mg tablet 1.25 mg PO MOWEFR 09/02/21 09/02/21 History pantoprazole 40 mg tablet,delayed 40 mg PO DAILY #30 tab 09/03/21 Rx release sucralfate 100 mg/mL oral 1 g PO QID #200 ml 09/03/21 Rx suspension Patient History Medical History Anemia ASCVD (arteriosclerotic cardiovascular disease) 2006 - CABG x 3, bioproesthetic aortic valve replacement 2006 - PCI and stenting to SVG to RCA occlusion Atrial fibrillation, persistent Cardiac pacemaker in situ Carotid artery occlusion (Unknown) Chronic diastolic CHF (congestive heart failure) CKD (chronic kidney disease), stage III Current use of snf 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 Dermatitis [place] [place] Sensorineural hearing loss of both ears Sinus node dysfunction 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 UTI due to extended-spectrum beta lactamase (ESBL) producing Escherichia coli Surgical History Coronary artery bypass [place] (Unknown[place] [place] VARGHESE to LAD SVG's to diagonal, obtuse marginal, RCA " History of colonoscopy with polypectomy History of cystoscopy History of tubal ligation Implantation of aortic valve prosthesis or synthetic device (Unknown) Placement of stent in coronary artery (Unknown) "[facility] December 2006 " Status post transcatheter aortic valve replacement (TAVR) using bioprosthesis Stented coronary artery (Unknown) Total abdominal hysterectomy with bilateral salpingo-oophorectomy (Unknown) Family History Father Prostate cancer Mother Diabetes Sister Coronary heart disease Social History Smoking Status: Never smoker Second Hand Exposure: No; Hx Alcohol Use: No Hx Substance Use: No Preferred Language: Welsh Communication Ability: Effective Visual Impairment: No Limitations Hearing Ability: Normal Bow Stapler Required: No Beliefs That Will Affect Care: None marital status: / Current Living Situation: Alone Other Information That Helps Us Care for You: No Feels Safe at Home: Yes Safety Concerns: Feels Safe At This Time Assistive Devices: Denture - Upper, Glasses and Hearing Aid - Bilateral Physical Exam Physical Exam: General: A&Ox3. NAD. HENT: Normocephalic. Atraumatic. Neck: Normal JVP. Bilateral carotid bruits. Lungs: Diminished at the bases however clear to auscultation Cardiovascular: Regular. Grade II/IV systolic ejection murmur. No diastolic murmur. No rub Abdomen: Soft, nontender. No hepatojugular reflux. Extremities: No edema. No clubbing. No cyanosis. Pulses: The right posterior tibial pulse was 2/4 and the left posterior tibial pulse was 1/4 Results & Data ([facility]) Vital Signs (Past 12 Hours) Vital Signs Temp Pulse Resp BP Pulse Ox 09/02/21 10:30 76 19 149/81 H 93 09/02/21 10:00 76 17 95 09/02/21 09:30 76 17 155/88 H 96 09/02/21 09:00 78 18 94 09/02/21 08:30 77 19 130/80 09/02/21 08:00 76 25 H 09/02/21 07:39 75 20 93 09/02/21 07:02 36.7 C 84 20 148/66 H 98 Laboratory Results Laboratory Results - last 24 hr 09/02/21 09/02/21 09/02/21 08:05 08:05 08:05 WBC 10.14 RBC 4.21 Hgb 13.1 Hct 42.9 MCV 101.9 H MCH 31.1 MCHC 30.5 L RDW Std Deviation 60.5 H RDW Coeff of Ge 16.3 H Plt Count 515 H MPV 11.5 H Immature Gran % (Auto) 0.2 Neut % (Auto) 80.6 Lymph % (Auto) 6.0 [place] % (Auto) 9.6 Eos % (Auto) 2.8 Baso % (Auto) 0.8 Neut # (Auto) 8.18 H Lymph # (Auto) 0.61 L [place] # (Auto) 0.97 H Eos # (Auto) 0.28 Baso # (Auto) 0.08 Immature Gran # (Auto) 0.02 PT 30.1 H INR 3.3 H APTT 44.7 H PTT Ratio 1.7 Sodium 142 Potassium 3.4 L Chloride 103 Carbon Dioxide 32 Anion Gap 6.0 BUN 23 H Creatinine 1.23 H Est Cr Clr Drug Dosing Not Reportable Est GFR ( Amer) 46.3 Est GFR (Non-Af Amer) 40.0 BUN/Creatinine Ratio 18.3 Glucose 128 H Calcium 9.3 Magnesium Total Bilirubin 0.6 AST 20 ALT 20 Alkaline Phosphatase 66 Troponin I < 0.015 Total Protein 7.5 Albumin 3.3 L Globulin 4.2 H Albumin/Globulin Ratio 0.8 L Lipase 190 COVID-19 Eval Order SARS-CoV-2 (PCR) 09/02/21 09/02/21 09/02/21 08:05 08:45 08:45 WBC RBC Hgb Hct MCV MCH MCHC RDW Std Deviation RDW Coeff of Ge Plt Count MPV Immature Gran % (Auto) Neut % (Auto) Lymph % (Auto) [place] % (Auto) Eos % (Auto) Baso % (Auto) Neut # (Auto) Lymph # (Auto) [place] # (Auto) Eos # (Auto) Baso # (Auto) Immature Gran # (Auto) PT INR APTT PTT Ratio Sodium Potassium Chloride Carbon Dioxide Anion Gap BUN Creatinine Est Cr Clr Drug Dosing Est GFR ( Amer) Est GFR (Non-Af Amer) BUN/Creatinine Ratio Glucose Calcium Magnesium 2.0 Total Bilirubin AST ALT Alkaline Phosphatase Troponin I Total Protein Albumin Globulin Albumin/Globulin Ratio Lipase COVID-19 Eval Order Covid19 at [facility] SARS-CoV-2 (PCR) NEGATIVE
[2021-09-02] MEDS ORDERED: ACETAMINOPHEN 325 MG TAB PO PRN (12:57)
[2021-09-02] MEDS ORDERED: LORazepam 0.5 MG TAB PO PRN (12:57)
--- NOTE | 2021-09-02 13:25 | History & Physical Report ---
Date of Service September 02, 2021 Assessment & Plan (1) Acute electrocardiogram changes: (2) History of coronary artery disease: Plan: -Admit to telemetry -Patient presenting from home with reports of throat discomfort radiating into her to her jaw, reminiscent of VT in 2006 -In the ED, initial troponin negative, EKG shows new T wave inversions in the lateral leads -CT neck was obtained that showed signs of esophagitis which may be the cause of patient's symptoms however given history of CAD and EKG changes, will pursue cardiac work-up -Serial troponin, resting echo -Continue ASA, statin, beta-buddy -Cardiology consult, case discussed with Dr. Goyal (3) Esophagitis: Plan: -CT neck was obtained to evaluate for foreign body due to complaints of throat discomfort. CT neck showed Circumferential wall thickening suggested in the visualized esophagus. Correlate clinically for evidence of esophagitis. -EGD 03/2021: Normal esophagus, normal stomach, normal examined duodenum -Continue PPI, start Carafate -GI consult, case discussed with Anabel WORTHINGTON -N.p.o. after midnight for possible EGD (4) Sinus node dysfunction: (5) Pacemaker: Plan: -No acute issues -Device interrogation performed in ED (6) AF (atrial fibrillation): Plan: -Recently evaluated in the cardiology clinic on 08/30 and found to be in persistent atrial fibrillation despite sotalol therapy. Sotalol discontinued at that time and metoprolol succinate increased to 150 mg BID. -On Coumadin, INR 3.3 (7) Chronic diastolic CHF (congestive heart failure): Plan: -Appears euvolemic -Continue home doses of furosemide and spironolactone (8) CKD (chronic kidney disease), stage III: Plan: -Baseline creatinine low 1's -Creatinine 1.2 today -Monitor renal function (9) DVT prophylaxis: Plan: -On Coumadin, INR 3.3 Admission and Anticipated Discharge Date Admission Date: September 02, 2021 History of Present Illness Chief Complaint: Throat discomfort Primary Care Provider: Yaya Frederick MD 86-year-old female with PMH CAD s/p CABG and stenting, bioprosthetic aortic valve replacement, persistent atrial fibrillation anticoagulated on Coumadin, sinus node dysfunction s/p pacemaker, CKD stage III, HTN, and other problems listed below who presents to the ED for evaluation of throat discomfort. Patient reports that whenever she woke up this morning, she felt a lump in her throat. The discomfort was radiating up into both jaws. Patient reports symptoms are reminiscent of her prior VT. Patient took 3 sublingual nitroglycerin without relief in symptoms. She then called EMS and was brought to the ED for further evaluation. Patient denies any associated chest pain, lightheadedness, dizziness, diaphoresis. Patient reports she otherwise has been feeling well recently. Was evaluated by cardiology on 08/30 and was found to be in persistent atrial fibrillation despite sotalol therapy. At that time, sotalol was discontinued and metoprolol was increased. Patient reports chronic exertional shortness of breath which is unchanged from baseline. Has chronic lower extremity edema which is at baseline as well. No abdominal pain, nausea, vomiting, diarrhea. No other recent illnesses, fevers, chills. She denies urinary symptoms. In the ED, initial troponin is negative, EKG shows new T wave inversions in the lateral leads. Patient is hemodynamically stable, labs are unremarkable. Allergies Allergy/AdvReac Type Severity Reaction Status Date / Time iodine Allergy Intermediate itching Verified 03/26/21 14:08 amiodarone Allergy Mild UNSURE Verified 03/26/21 14:08 etodolac Allergy Mild Unknown Verified 03/26/21 14:08 Sulfa (Sulfonamide Allergy Mild Unknown Verified 03/26/21 14:08 Antibiotics) gabapentin AdvReac Mild sedation Verified 03/26/21 14:08 Penicillins AdvReac Mild YEAST INF Verified 03/26/21 14:08 simvastatin AdvReac Unknown CAN'T Verified 03/26/21 14:08 REMEMBER Home Medications Medication Instructions Recorded Confirmed Type aspirin 81 mg tablet,delayed 81 mg PO DAILY 01/24/21 09/02/21 History release calcium carb 300 mg-D3 800 1 tab PO BID 01/24/21 09/02/21 History unit-mag ox 25 mg-copier technician 0.5 mg-cristine-Zn tablet (Caltrate + D3 Plus Minerals) camphor-menthol 0.2 %-3.5 % 1 applic TOPICAL BID PRN 01/24/21 09/02/21 History topical gel diphenhydramine HCl 25 mg capsule 25 mg PO Q6H PRN 01/24/21 09/02/21 History (Benadryl) docusate sodium 100 mg capsule 400 mg PO DAILY 01/24/21 09/02/21 History (Colace) epinephrine 0.3 mg/0.3 mL 0.3 mg IM UD PRN 01/24/21 09/02/21 History injection, auto-injector (EpiPen) ferrous sulfate 325 mg (65 mg 325 mg PO HS 01/24/21 09/02/21 History iron) tablet (iron) furosemide 80 mg tablet (Lasix) 80 mg PO DAILY 01/24/21 09/02/21 History loratadine 10 mg tablet 10 mg PO HS 01/24/21 09/02/21 History lorazepam 0.5 mg tablet 0.5 mg PO TID PRN 01/24/21 09/02/21 History magnesium oxide 400 mg PO DAILY 01/24/21 09/02/21 History metoprolol succinate 100 mg 150 mg PO BID 01/24/21 09/02/21 History tablet,extended release 24 hr mometasone 50 mcg/actuation nasal 2 spray INTRANASAL DAILY 01/24/21 09/02/21 History spray (Nasonex) stcpormgdfsc-xnyaoxkk-dhsfsf tablet 1 tab PO DAILY 01/24/21 09/02/21 History nitroglycerin 0.4 mg sublingual 0.4 mg SUBLINGUAL UD PRN 01/24/21 09/02/21 History tablet omeprazole 20 mg tablet,delayed 20 mg PO DAILY 01/24/21 09/02/21 History release rosuvastatin 10 mg tablet (Crestor) 10 mg PO HS 01/24/21 09/02/21 History spironolactone 25 mg tablet 12.5 mg PO DAILY 01/24/21 09/02/21 History hydroxyurea 500 mg capsule 500 mg PO 3XWK 03/24/21 09/02/21 History pregabalin 50 mg capsule (Lyrica) 50 mg PO BID 03/24/21 09/02/21 History warfarin 2.5 mg tablet 2.5 mg PO SUTUTHSA 03/24/21 09/02/21 History nitrofurantoin 100 mg PO DAILY 09/02/21 09/02/21 History monohydrate/macrocrystals 100 mg capsule warfarin 2.5 mg tablet 1.25 mg PO MOWEFR 09/02/21 09/02/21 History Past Med/Surg History Medical History Anemia ASCVD (arteriosclerotic cardiovascular disease) 2006 - CABG x 3, bioproesthetic aortic valve replacement 2006 - PCI and stenting to SVG to RCA occlusion Atrial fibrillation, persistent Cardiac pacemaker in situ Carotid artery occlusion (Unknown) Chronic diastolic CHF (congestive heart failure) CKD (chronic kidney disease), stage III 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 Dermatitis [place] [place] Sensorineural hearing loss of both ears Sinus node dysfunction 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 UTI due to extended-spectrum beta lactamase (ESBL) producing Escherichia coli Surgical History Coronary artery bypass [place] (Unknown) [place] [place] to LAD SVG's to diagonal, obtuse marginal, RCA " History of colonoscopy with polypectomy History of cystoscopy History of tubal ligation Implantation of aortic valve prosthesis or synthetic device (Unknown) Placement of stent in coronary artery (Unknown) "RCA December 2006 " Status post transcatheter aortic valve replacement (TAVR) using bioprosthesis Stented coronary artery (Unknown) Total abdominal hysterectomy with bilateral salpingo-oophorectomy (Unknown) Family History Father Prostate cancer Mother Diabetes Sister Coronary heart disease Social History Smoking Status: Never smoker Second Hand Exposure: No; Hx Alcohol Use: No Hx Substance Use: No Preferred Language: Citizen Of [place] Communication Ability: Effective Visual Impairment: No Limitations Hearing Ability: Normal 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 Beliefs That Will Affect Care: None marital status: / Current Living Situation: Alone Other Information That Helps Us Care for You: No Feels Safe at Home: Yes Safety Concerns: Feels Safe At This Time Assistive Devices: Denture - Upper, Glasses and Hearing Aid - Bilateral Review of Systems Review of Systems: ROS per HPI, all other systems reviewed and negative Physical Exam Constitutional: WD/WN, vitals as above Eyes: PERRL, conjunctivae normal, anicteric sclerae ENMT: external ear and nose normal, oropharynx normal Respiratory: normal respiratory effort, lungs clear to auscultation Cardiovascular: Rate/Rhythm: regular rate and regular rhythm Vessels: normal peripheral pulses Extremities: + edema (+1 pitting edema BLE) Gastrointestinal (Abdomen): normal bowel sounds, soft, nontender, no hepatosplenomegaly Musculoskeletal: no cyanosis or clubbing, extremities motor strength 5/5 Skin: no rashes, warm and dry Neurologic: PERRL, EOMI, accommodation nl, no face palsy, no dysarthria Psychiatric: A+Ox3, euthymic affect Results & Data Results & Data ([facility]) Vital Signs (Past 12 Hours) Vital Signs Temp Pulse Pulse Resp BP BP Pulse Ox 09/02/21 12:57 36.5 C 79 17 155/84 H 91 09/02/21 10:30 76 19 149/81 H 93 09/02/21 10:00 76 17 95 09/02/21 09:30 76 17 155/88 H 96 09/02/21 09:00 78 18 94 09/02/21 08:30 77 19 130/80 09/02/21 08:00 76 25 H 09/02/21 07:39 75 20 93 09/02/21 07:02 36.7 C 84 20 148/66 H 98 Laboratory Results Short CBC 09/02/21 Range/Units 08:05 WBC 10.14 (4.8-10.8) K/uL Hgb 13.1 (12.0-16.0) g/dL Hct 42.9 (37-47) % Plt Count 515 H (130-400) K/uL BMP 09/02/21 08:05 Sodium 142 Potassium 3.4 L Chloride 103 Carbon Dioxide 32 BUN 23 H Creatinine 1.23 H Glucose 128 H Calcium 9.3 Cardiac Enzymes 09/02/21 09/02/21 Range/Units 08:05 13:51 Troponin I < 0.015 < 0.015 (0-0.045) ng/ml Liver Function 09/02/21 Range/Units 08:05 Total Bilirubin 0.6 (0.2-1) mg/dl AST 20 (15-37) U/L ALT 20 (12-78) U/L Alkaline Phosphatase 66 (45-117) U/L Albumin 3.3 L (3.4-5.0) gm/dl Diagnostic Findings Chest X-Ray 09/02/21 07:48 XR chest 1V portable HISTORY: 86 years-old Female Chest Pain acute atypical chest pain COMPARISON: Chest radiograph 03/27/2021 TECHNIQUE: Portable AP chest FINDINGS: Cardiac silhouette is enlarged. Prior median sternotomy with probable CABG. Left subclavian pacer. No pneumothorax, large pleural effusion, airspace consolidation or overt pulmonary edema. Chronic reticular interstitial opacities. Degenerative changes of the shoulders and spine. IMPRESSION: Cardiomegaly with chronic interstitial coarsening. ACT 112: Negative or not required by law. The above report was generated using voice recognition software. It may contain grammatical, syntax or spelling errors. Electronically signed by: Zacarias Valencia M.D. 09/02/2021 8:24 AM Soft Tissue Neck CT 09/02/21 10:19 CT SCAN OF THE NECK WITHOUT IV CONTRAST CLINICAL HISTORY: Globus sensation COMPARISON STUDY: CT of the cervical spine dated 04/17/2019. TECHNIQUE: Unenhanced CT scan of the soft tissues of the neck was performed from the skull base to the upper chest. Images are reviewed in the axial, sagittal, and coronal planes. IV contrast was not administered due to a reported history of contrast allergy. Note that the examination is significantly suboptimal without IV contrast. A dose lowering technique was utilized adhering to the principles of ALARA. CT DOSE: 696.80 mGy.cm FINDINGS: Pharynx: The unenhanced pharyngeal soft tissues are grossly normal in appearance. The pharyngeal airway is widely patent. There is no evidence of mass lesion. The vocal cords are symmetric. The parapharyngeal fat is well maintained. The prevertebral/retropharyngeal soft tissues are within normal limits. The epiglottis is normal. There is circumferential wall thickening of the visualized esophagus. Lymphadenopathy: No cervical lymphadenopathy is seen. Thyroid: Normal in size and attenuation. A 6 mm low-attenuation nodule in the left lobe of the thyroid is unchanged. No follow-up is recommended. Salivary glands: The parotid and submandibular glands are within normal limits. Brain parenchyma: The visualized brain parenchyma at the skull base is normal in appearance noting age-related involutional change. Skeletal structures: The skeletal structures are osteopenic. Imaged portions of the calvarium at the skull base are within normal limits. The cervical spine appears maintained noting multilevel spondylosis. No lytic or blastic lesion is seen. Orbits: The bony orbits are intact. Orbital contents are normal as visualized noting bilateral ocular lens implants. Sinuses and mastoids: There is trace mucosal thickening within the right maxillary antrum. The remaining paranasal sinuses are clear. The mastoid air cells are well pneumatized. Soft tissues: There is atherosclerotic calcification of the carotid bulbs. Upper chest: Pacemaker leads are noted at the left thoracic inlet. The patient is status post midline sternotomy. Upper lobe lung parenchyma is clear as visualized. IMPRESSION: 1. Circumferential wall thickening suggested in the visualized esophagus. Correlate clinically for evidence of esophagitis. This could be further assessed with endoscopy if clinically warranted. 2. The unenhanced pharyngeal soft tissues are grossly unremarkable. ACT 112: Negative or not required by law. Electronically signed by: Jim Ruiz M.D. 09/02/2021 1:36 PM Code Status & VTE Plan Code Status Patient is a full code as per my discussion with her. VTE Prophylaxis Plan VTE Prophylaxis will be ordered: No Supervising Physician Co-Signing Physician Notes Patient seen and examined by me, care coordinated with ELIN Perez, please refer to her note above for further detail. 86 y/o female w/ CAD s/p CABG and stenting, bioprosthetic aortic valve replacement, persistent atrial fibrillation anticoagulated on Coumadin, sinus node dysfunction s/p pacemaker, CKD stage III, HTN, who presents for evaluation of throat discomfort.The discomfort was radiating up into both jaws. Patient reports symptoms are reminiscent of her prior VT. In the ED, initial troponin is negative, EKG shows new T wave inversions in the lateral leads. Patient is hemodynamically stable, labs are unremarkable. She is alert oriented answering questions appropriately. Heart sounds irreg ular. Lung sounds clear to auscultation b/l w/o any wheezing, rhonchi, crackles. Abdomen soft nontender nondistended. Positive lower extremity edema bilaterally. Skin warm dry. Cardiology was consulted for further recommendations. Ordered CT of the neck as well to evaluate for neck discomfort, consistent with possible esophagitis, will discuss further with GI as well. Johnny Keller MD (1) AF (atrial fibrillation) Atrial fibrillation type: unspecified Qualified Code(s): I48.91 - Unspecified atrial fibrillation
[2021-09-02] MEDS ORDERED: NITROFURANTOIN MONOHYDRATE 100 MG CAP PO STA (13:32)
[2021-09-02] MEDS ORDERED: FUROSEMIDE 80 MG TAB PO ONE (13:32)
[2021-09-02] MEDS ORDERED: ASPIRIN 81 MG ECTAB PO ONE (13:32)
[2021-09-02] MEDS ORDERED: SPIRONOLACTONE 12.5 MG TAB PO ONE (13:34)
[2021-09-02] MEDS ORDERED: PANTOprazole 40 MG TAB PO ONE (13:34)
--- NOTE | 2021-09-02 13:37 | CT Scan Report ---
CT SCAN OF THE NECK WITHOUT IV CONTRAST CLINICAL HISTORY: Globus sensation COMPARISON STUDY: CT of the cervical spine dated 04/17/2019. TECHNIQUE: Unenhanced CT scan of the soft tissues of the neck was performed from the skull base to th e upper chest. Images are reviewed in the axial, sagittal, and coronal planes. IV contrast was not a dministered due to a reported history of contrast allergy. Note that the examination is significantly suboptimal without IV contrast. A dose lowering technique was utilized adhering to the principles o f ALARA. CT DOSE: 696.80 mGy.cm FINDINGS: Pharynx: The unenhanced pharyngeal soft tissues are grossly normal in appearance. The pharyngeal airw ay is widely patent. There is no evidence of mass lesion. The vocal cords are symmetric. The paraphar yngeal fat is well maintained. The prevertebral/retropharyngeal soft tissues are within normal limits . The epiglottis is normal. There is circumferential wall thickening of the visualized esophagus. Lymphadenopathy: No cervical lymphadenopathy is seen. Thyroid: Normal in size and attenuation. A 6 mm low-attenuation nodule in the left lobe of the thyroi d is unchanged. No follow-up is recommended. Salivary glands: The parotid and submandibular glands are within normal limits. Brain parenchyma: The visualized brain parenchyma at the skull base is normal in appearance noting ag e-related involutional change. Skeletal structures: The skeletal structures are osteopenic. Imaged portions of the calvarium at the skull base are within normal limits. The cervical spine appears maintained noting multilevel spondylo sis. No lytic or blastic lesion is seen. Orbits: The bony orbits are intact. Orbital contents are normal as visualized noting bilateral ocular lens implants. Sinuses and mastoids: There is trace mucosal thickening within the right maxillary antrum. The remain ing paranasal sinuses are clear. The mastoid air cells are well pneumatized. Soft tissues: There is atherosclerotic calcification of the carotid bulbs. Upper chest: Pacemaker leads are noted at the left thoracic inlet. The patient is status post midline sternotomy. Upper lobe lung parenchyma is clear as visualized. IMPRESSION: 1. Circumferential wall thickening suggested in the visualized esophagus. Correlate clinically for ev idence of esophagitis. This could be further assessed with endoscopy if clinically warranted. 2. The unenhanced pharyngeal soft tissues are grossly unremarkable. ACT 112: Negative or not required by law. Electronically signed by: Jim Ruiz M.D. 09/02/2021 1:36 PM
[2021-09-02] MEDS ORDERED: POTASSIUM CHLORIDE 20 MEQ/15 ML UDC PO ONE (13:50)
[2021-09-02] MEDS ORDERED: WARFARIN SOD 2.5 MG TAB PO SCH (16:00)
[2021-09-02] MEDS: SUCRALFATE 1 GM/10 ML UDC PO SCH ×2 (16:53→21:15)
[2021-09-02] MEDS ORDERED: ROSUVASTATIN CALCIUM 10 MG TAB PO SCH (21:00)
[2021-09-02] MEDS ORDERED: LORATADINE 10 MG TAB PO SCH (21:00)
[2021-09-02] MEDS ORDERED: FERROUS SULFATE 325 MG TAB PO SCH (21:00)
[2021-09-02] MEDS: METOPROLOL SUCC 50MG EXT REL TAB PO SCH (21:16)
[2021-09-02] MEDS: PREGABALIN 50 MG CAP PO SCH (21:20)
--- NOTE | 2021-09-02 23:22 | Electrocardiogram Report ---
Test Reason : Blood Pressure : / mmHG Vent. Rate : 079 BPM Atrial Rate : 340 BPM P-R Int : 000 ms QRS Dur : 142 ms QT Int : 416 ms P-R-T Axes : 000 101 -23 degrees QTc Int : 477 ms Suspect unspecified pacemaker failure Atrial fibrillation with occasional ventricular-paced complexes Right bundle branch block T wave abnormality, consider anterolateral ischemia Abnormal ECG When compared with ECG of 30-MAR-2021 14:30, T wave inversion now evident in Anterolateral leads Confirmed by Jet Jerome ([id number]) on 09/02/2021 11:22:22 PM Referred By: REFERRED SELF Confirmed By:Jet Jerome
[2021-09-03 06:32] LABS: Hematocrit (blood only) 43.2 % (37-47); Hemoglobin 13.5 g/dL (12.0-16.0); Mean Corpuscular Hemoglobin 31.6 pg (25-34); Mean Corpuscular Hgb Conc 31.3 g/dL (32-36); Mean Corpuscular Volume 101.2 fL (80-100); Mean Platelet Volume 11.7 fL (7.4-10.4); Platelet Count 479 K/uL (130-400); RDW Coefficient of Variation 16.2 % (11.5-14.5); RDW Standard Deviation 59.8 fL (36.4-46.3); Red Blood Count 4.27 M/uL (4.2-5.4); White Blood Count 9.72 K/uL (4.8-10.8)
[2021-09-03 06:57] LABS: INR 3.7 (0.9-1.1); Prothrombin Time 34.2 Seconds (9.0-12.0)
[2021-09-03 07:00] LABS: BUN Creatinine Ratio 20.1 (10-20); Calcium 9.2 mg/dl (8.5-10.1); Creatinine Clr Calc Pharmacy 35.7 ml/min; Est GFR (African American) 53.6 ml/min; Est GFR (Non-African American) 46.3 ml/min; Potassium 3.7 mmol/L (3.5-5.1)
[2021-09-03] MEDS ORDERED: HYDROXYUREA 500 MG CAP PO SCH (09:00)
[2021-09-03] MEDS ORDERED: SPIRONOLACTONE 12.5 MG TAB PO SCH (09:00)
[2021-09-03] MEDS ORDERED: NITROFURANTOIN MONOHYDRATE 100 MG CAP PO SCH (09:00)
[2021-09-03] MEDS ORDERED: FUROSEMIDE 80 MG TAB PO SCH (09:00)
[2021-09-03] MEDS ORDERED: ASPIRIN 81 MG ECTAB PO SCH (09:00)
[2021-09-03] MEDS ORDERED: PANTOprazole 40 MG TAB PO SCH (09:00)
[2021-09-03] MEDS ORDERED: MAGNESIUM OXIDE 400 MG TAB PO SCH (09:00)
--- NOTE | 2021-09-03 09:11 | Gastrointestinal Consultation ---
Date of Consultation September 03, 2021 Assessment & Plan (1) Esophagitis: 86 year old female admitted w/ throat pain, odynophagia, improving since admission. EGD in 2020 unremarkable No GI contraindication for diet but appears NPO also for cardiology evaluation Can continue Pantoprazole Can continue Carafate liquid four times daily She prefers to arrange OP GI clinic appt instead of scheduling EGD Thank you for allowing us to participate in the care of this patient. Please call with any acute changes, questions or concerns. Please see addendum below with additional recommendation from my supervising physician. Supervising Physician Co-Signing Physician Notes I saw and evaluated the patient. We were consulted for evaluation of esophagitis. The patient had presented with chest pain of unclear etiology. Of note the patient did have a recent upper endoscopy which showed a normal- appearing esophagus. Physical examination Patient appears younger than stated age No abdominal tenderness impression: patient with a history of atypical chest pain, and a negative recent upper endoscopy. We would recommend continued use of once daily proton pump inhibitor therapy and restarting the Carafate slurry twice daily. The patient is certainly welcome to follow with our office as an outpatient in 8 to 12 weeks where we can reassess her symptoms and determine if a follow-up upper endoscopy is still needed. History of Present Illness Reason for Consultation: esophagitis Requesting Physician: Krishna Attending Physician: Rafael Keller MD History of Present Illness 86 year old female w/ history of CAD s/p CABG and stenting, bioprosthetic aortic valve replacement, persistent atrial fibrillation anticoagulated on Coumadin, sinus node dysfunction s/p pacemaker, CKD stage III, HTN - GI asked to evaluate for esophagitis. Pt was seen and evaluated, chart reviewed. Had EGD about 4/5 month ago. Suggets 2/3 months ago started to notice PND, odynophagia, globus and some heartburn. Has since improved since admission started on carafate. Now is feeling well. Allergies Allergy/AdvReac Type Severity Reaction Status Date / Time iodine Allergy Intermediate itching Verified 03/26/21 14:08 amiodarone Allergy Mild UNSURE Verified 03/26/21 14:08 etodolac Allergy Mild Unknown Verified 03/26/21 14:08 Sulfa (Sulfonamide Allergy Mild Unknown Verified 03/26/21 14:08 Antibiotics) gabapentin AdvReac Mild sedation Verified 03/26/21 14:08 Penicillins AdvReac Mild YEAST INF Verified 03/26/21 14:08 simvastatin AdvReac Unknown CAN'T Verified 03/26/21 14:08 REMEMBER Home Medications Medication Instructions Recorded Confirmed Type aspirin 81 mg tablet,delayed 81 mg PO DAILY 01/24/21 09/02/21 History release calcium carb 300 mg-D3 800 1 tab PO BID 01/24/21 09/02/21 History unit-mag ox 25 mg-freelance copywriter 0.5 mg-cristine-Zn tablet (Caltrate + D3 Plus Minerals) camphor-menthol 0.2 %-3.5 % 1 applic TOPICAL BID PRN 01/24/21 09/02/21 History topical gel diphenhydramine HCl 25 mg capsule 25 mg PO Q6H PRN 01/24/21 09/02/21 History (Benadryl) docusate sodium 100 mg capsule 400 mg PO DAILY 01/24/21 09/02/21 History (Colace) epinephrine 0.3 mg/0.3 mL 0.3 mg IM UD PRN 01/24/21 09/02/21 History injection, auto-injector (EpiPen) ferrous sulfate 325 mg (65 mg 325 mg PO HS 01/24/21 09/02/21 History iron) tablet (iron) furosemide 80 mg tablet (Lasix) 80 mg PO DAILY 01/24/21 09/02/21 History loratadine 10 mg tablet 10 mg PO HS 01/24/21 09/02/21 History lorazepam 0.5 mg tablet 0.5 mg PO TID PRN 01/24/21 09/02/21 History magnesium oxide 400 mg PO DAILY 01/24/21 09/02/21 History metoprolol succinate 100 mg 150 mg PO BID 01/24/21 09/02/21 History tablet,extended release 24 hr mometasone 50 mcg/actuation nasal 2 spray INTRANASAL DAILY 01/24/21 09/02/21 History spray (Nasonex) [id number]-viwwjcms-[id number] tablet 1 tab PO DAILY 01/24/21 09/02/21 History nitroglycerin 0.4 mg sublingual 0.4 mg SUBLINGUAL UD PRN 01/24/21 09/02/21 History tablet rosuvastatin 10 mg tablet (Crestor) 10 mg PO HS 01/24/21 09/02/21 History spironolactone 25 mg tablet 12.5 mg PO DAILY 01/24/21 09/02/21 History hydroxyurea 500 mg capsule 500 mg PO [id number] 03/24/21 09/02/21 History pregabalin 50 mg capsule (Lyrica) 50 mg PO BID 03/24/21 09/02/21 History warfarin 2.5 mg tablet 2.5 mg PO SUTUTHSA 03/24/21 09/02/21 History nitrofurantoin 100 mg PO DAILY 09/02/21 09/02/21 History monohydrate/macrocrystals 100 mg capsule warfarin 2.5 mg tablet 1.25 mg PO MOWEFR 09/02/21 09/02/21 History pantoprazole 40 mg tablet,delayed 40 mg PO DAILY #30 tab 09/03/21 Rx release sucralfate 100 mg/mL oral 1 g PO QID #200 ml 09/03/21 Rx suspension Patient History Medical History Anemia ASCVD (arteriosclerotic cardiovascular disease) 2005 - CABG x 3, bioproesthetic aortic valve replacement 2006 - PCI and stenting to SVG to RCA occlusion Atrial fibrillation, persistent Cardiac pacemaker in situ Carotid artery occlusion (Unknown) Chronic diastolic CHF (congestive heart failure) CKD (chronic kidney disease), stage III 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 of 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 control technician 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 Dermatitis Replacement of aortic valve (Unknown) "[facility] 2005 Mary-Good " Sensorineural hearing loss of both ears Sinus node dysfunction 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 UTI due to extended-spectrum beta lactamase (ESBL) producing Escherichia coli Surgical History Coronary artery bypass grafting (Unknown) "[facility] April 2006 VARGHESE to LAD SVG's to diagonal, obtuse marginal, RCA " History of colonoscopy with polypectomy History of cystoscopy History of tubal ligation Implantation of aortic valve prosthesis or synthetic device (Unknown) Placement of stent in coronary artery (Unknown) "[facility] December 2006 " Status post transcatheter aortic valve replacement (TAVR) using bioprosthesis Stented coronary artery (Unknown) Total abdominal hysterectomy with bilateral salpingo-oophorectomy (Unknown) Family History Father Prostate cancer Mother Diabetes Sister Coronary heart disease Social History Smoking Status: Never smoker Second Hand Exposure: No; Hx Alcohol Use: No Hx Substance Use: No Preferred Language: Gibraltarian Communication Ability: Effective Visual Impairment: No Limitations Hearing Ability: Normal Epic Interface Analyst Required: No Beliefs That Will Affect Care: None marital status: / Current Living Situation: Alone Other Information That Helps Us Care for You: No Feels Safe at Home: Yes Safety Concerns: Feels Safe At This Time Assistive Devices: Denture - Upper, Glasses and Hearing Aid - Bilateral Review of Systems Review of Systems: All systems reviewed & are unremarkable except as noted in HPI & below Results & Data ([facility]) Vital Signs (Past 12 Hours) Vital Signs Temp Pulse Resp BP BP Pulse Ox 09/03/21 07:06 36.5 C 75 16 111/76 94 09/03/21 04:05 36.5 C 78 18 137/75 94 09/03/21 00:05 36.8 C 77 18 116/65 94 Laboratory Results 09/03/21 09/03/21 09/03/21 Range/Units 06:11 06:11 06:11 WBC 9.72 (4.8-10.8) K/uL RBC 4.27 (4.2-5.4) M/uL Hgb 13.5 (12.0-16.0) g/dL Hct 43.2 (37-47) % MCV 101.2 H (80-100) fL MCH 31.6 (25-34) pg MCHC 31.3 L (32-36) g/dL RDW Std Deviation 59.8 H (36.4-46.3) fL RDW Coeff of Ge 16.2 H (11.5-14.5) % Plt Count 479 H (130-400) K/uL MPV 11.7 H (7.4-10.4) fL PT 34.2 H (9.0-12.0) Seconds INR 3.7 H (0.9-1.1) Sodium 141 (136-145) mmol/L Potassium 3.7 (3.5-5.1) mmol/L Chloride 103 (98-107) mmol/L Carbon Dioxide 33 H (21-32) mmol/L Anion Gap 5.0 (3-11) BUN 22 H (7-18) mg/dl Creatinine 1.09 (0.6-1.2) mg/dl Est Cr Clr Drug Dosing 35.7 ml/min Est GFR ( Amer) 53.6 ml/min Est GFR (Non-Af Amer) 46.3 ml/min BUN/Creatinine Ratio 20.1 H (10-20) Glucose 119 H (70-99) mg/dl Calcium 9.2 (8.5-10.1) mg/dl Magnesium (1.8-2.4) mg/dl Troponin I (0-0.045) ng/ml SARS-CoV-2 (PCR) (Negative) 09/02/21 09/02/21 09/02/21 Range/Units 20:06 13:51 08:45 WBC (4.8-10.8) K/uL RBC (4.2-5.4) M/uL Hgb (12.0-16.0) g/dL Hct (37-47) % MCV (80-100) fL MCH (25-34) pg MCHC (32-36) g/dL RDW Std Deviation (36.4-46.3) fL RDW Coeff of Ge (11.5-14.5) % Plt Count (130-400) K/uL MPV (7.4-10.4) fL PT (9.0-12.0) Seconds INR (0.9-1.1) Sodium (136-145) mmol/L Potassium (3.5-5.1) mmol/L Chloride (98-107) mmol/L Carbon Dioxide (21-32) mmol/L Anion Gap (3-11) BUN (7-18) mg/dl Creatinine (0.6-1.2) mg/dl Est Cr Clr Drug Dosing ml/min Est GFR ( Amer) ml/min Est GFR (Non-Af Amer) ml/min BUN/Creatinine Ratio (10-20) Glucose (70-99) mg/dl Calcium (8.5-10.1) mg/dl Magnesium (1.8-2.4) mg/dl Troponin I < 0.015 < 0.015 (0-0.045) ng/ml SARS-CoV-2 (PCR) NEGATIVE (Negative) 09/02/21 Range/Units 08:05 WBC (4.8-10.8) K/uL RBC (4.2-5.4) M/uL Hgb (12.0-16.0) g/dL Hct (37-47) % MCV (80-100) fL MCH (25-34) pg MCHC (32-36) g/dL RDW Std Deviation (36.4-46.3) fL RDW Coeff of Ge (11.5-14.5) % Plt Count (130-400) K/uL MPV (7.4-10.4) fL PT (9.0-12.0) Seconds INR (0.9-1.1) Sodium (136-145) mmol/L Potassium (3.5-5.1) mmol/L Chloride (98-107) mmol/L Carbon Dioxide (21-32) mmol/L Anion Gap (3-11) BUN (7-18) mg/dl Creatinine (0.6-1.2) mg/dl Est Cr Clr Drug Dosing ml/min Est GFR ( Amer) ml/min Est GFR (Non-Af Amer) ml/min BUN/Creatinine Ratio (10-20) Glucose (70-99) mg/dl Calcium (8.5-10.1) mg/dl Magnesium 2.0 (1.8-2.4) mg/dl Troponin I (0-0.045) ng/ml SARS-CoV-2 (PCR) (Negative)
--- NOTE | 2021-09-03 09:21 | Hospitalist Progress Note ---
Date of Service September 03, 2021 Assessment & Plan (1) Acute electrocardiogram changes: (2) History of coronary artery disease: Plan: -Admitted to telemetry -Patient presenting from home with reports of throat discomfort radiating into her to her jaw, reminiscent of [place] in 2006 -In the ED, initial troponin negative, EKG shows new T wave inversions in the lateral leads -CT neck was obtained that showed signs of esophagitis which may be the cause of patient's symptoms however given history of CAD and EKG changes, will pursue cardiac work-up -Serial troponin negative resting echo - EF 55 to 60%. There is mild concentric LVH. Septal motion consistent with pacemaker activation. Otherwise normal wall motion. LA is moderately dilated. There is bioprosthetic aortic valve. The gradient is normal for this prosthetic aortic valve. There is moderate mitral regurg. There is moderate tricuspid regurg. The estimated systolic pulmonary pressure is 37 mmHg. -Continue ASA, statin, beta-buddy -Cardiology consult, case discussed with Dr. Goyal - plan to follow up as outpt, no further work-up at this time recommended. (3) Esophagitis: Plan: -CT neck was obtained to evaluate for foreign body due to complaints of throat discomfort. CT neck showed Circumferential wall thickening suggested in the visualized esophagus. Correlate clinically for evidence of esophagitis. -EGD 03/2021: Normal esophagus, normal stomach, normal examined duodenum -Continue PPI, started Carafate -GI consult, case discussed with Anabel WORTHINGTON -Patient much improved on current medication, plan to follow-up with GI as outpatient -We will discharge with pantoprazole and Carafate 4 times daily (4) Sinus node dysfunction: (5) Pacemaker: Plan: -No acute issues -Device interrogation performed in ED (6) AF (atrial fibrillation): Plan: -Recently evaluated in the cardiology clinic on 08/30 and found to be in persistent atrial fibrillation despite sotalol therapy. Sotalol discontinued at that time and metoprolol succinate increased to 150 mg BID. -On Coumadin, INR 3.3 on admission -current INR 3.7 - hold coumadin today, plan to re-check on Monday or Monday (7) Chronic diastolic CHF (congestive heart failure): Plan: -Appears euvolemic -Continue home doses of furosemide and spironolactone (8) CKD (chronic kidney disease), stage III: Plan: -Baseline creatinine low 1's -Creatinine 1.2 today -Monitor renal function (9) DVT prophylaxis: Plan: -On Coumadin Admission and Anticipated Discharge Date Admission Date: September 02, 2021 Subjective Patient seen in follow-up of chest/neck discomfort Currently she is doing quite well, denies any neck or chest pain Troponin negative Seen by cardiology, plan to follow-up as outpatient Seen by GI for esophagitis, also plan to follow-up as outpatient She currently denies any chest pain, shortness of breath, abdominal pain, nausea vomiting Review of Systems Review of Systems: All systems reviewed & are unremarkable except as noted in Subjective Physical Exam Physical Exam: Constitutional:L WD/WN, elderly F i n NAD Eyes: PERRL, EOMI, conju nctivae normal, an icteric sclerae ENMT: external ear and n ose normal, oropha rynx normal Respiratory: normal respiratory effort, lungs nestor ar to auscultation Cardiovascular:L irregular, + mild LE edema b/l (impr pradeep) Gastrointestinal ( Abdomen): normal bowel sound s, soft, nontender Musculoskeletal: extremities motor strength 5/5 Skin: no rashes, warm an d dry Neurologic: PERRL, EOMI, no fa ce palsy, no dysar thria, moves extre mities Psychiatric: A+Ox3, euthymic af fect Results & Data Results & Data ([facility]) Vital Signs (Past 12 Hours) Vital Signs Temp Pulse Resp BP BP Pulse Ox 09/03/21 07:06 36.5 C 75 16 111/76 94 09/03/21 04:05 36.5 C 78 18 137/75 94 09/03/21 00:05 36.8 C 77 18 116/65 94 Laboratory Results 09/03/21 09/03/21 09/03/21 Range/Units 06:11 06:11 06:11 WBC 9.72 (4.8-10.8) K/uL RBC 4.27 (4.2-5.4) M/uL Hgb 13.5 (12.0-16.0) g/dL Hct 43.2 (37-47) % MCV 101.2 H (80-100) fL MCH 31.6 (25-34) pg MCHC 31.3 L (32-36) g/dL RDW Std Deviation 59.8 H (36.4-46.3) fL RDW Coeff of Ge 16.2 H (11.5-14.5) % Plt Count 479 H (130-400) K/uL MPV 11.7 H (7.4-10.4) fL PT 34.2 H (9.0-12.0) Seconds INR 3.7 H (0.9-1.1) Sodium 141 (136-145) mmol/L Potassium 3.7 (3.5-5.1) mmol/L Chloride 103 (98-107) mmol/L Carbon Dioxide 33 H (21-32) mmol/L Anion Gap 5.0 (3-11) BUN 22 H (7-18) mg/dl Creatinine 1.09 (0.6-1.2) mg/dl Est Cr Clr Drug Dosing 35.7 ml/min Est GFR ( Amer) 53.6 ml/min Est GFR (Non-Af Amer) 46.3 ml/min BUN/Creatinine Ratio 20.1 H (10-20) Glucose 119 H (70-99) mg/dl Calcium 9.2 (8.5-10.1) mg/dl Magnesium (1.8-2.4) mg/dl Troponin I (0-0.045) ng/ml SARS-CoV-2 (PCR) (Negative) 09/02/21 09/02/21 09/02/21 Range/Units 20:06 13:51 08:45 WBC (4.8-10.8) K/uL RBC (4.2-5.4) M/uL Hgb (12.0-16.0) g/dL Hct (37-47) % MCV (80-100) fL MCH (25-34) pg MCHC (32-36) g/dL RDW Std Deviation (36.4-46.3) fL RDW Coeff of Ge (11.5-14.5) % Plt Count (130-400) K/uL MPV (7.4-10.4) fL PT (9.0-12.0) Seconds INR (0.9-1.1) Sodium (136-145) mmol/L Potassium (3.5-5.1) mmol/L Chloride (98-107) mmol/L Carbon Dioxide (21-32) mmol/L Anion Gap (3-11) BUN (7-18) mg/dl Creatinine (0.6-1.2) mg/dl Est Cr Clr Drug Dosing ml/min Est GFR ( Amer) ml/min Est GFR (Non-Af Amer) ml/min BUN/Creatinine Ratio (10-20) Glucose (70-99) mg/dl Calcium (8.5-10.1) mg/dl Magnesium (1.8-2.4) mg/dl Troponin I < 0.015 < 0.015 (0-0.045) ng/ml SARS-CoV-2 (PCR) NEGATIVE (Negative) 09/02/21 Range/Units 08:05 WBC (4.8-10.8) K/uL RBC (4.2-5.4) M/uL Hgb (12.0-16.0) g/dL Hct (37-47) % MCV (80-100) fL MCH (25-34) pg MCHC (32-36) g/dL RDW Std Deviation (36.4-46.3) fL RDW Coeff of Ge (11.5-14.5) % Plt Count (130-400) K/uL MPV (7.4-10.4) fL PT (9.0-12.0) Seconds INR (0.9-1.1) Sodium (136-145) mmol/L Potassium (3.5-5.1) mmol/L Chloride (98-107) mmol/L Carbon Dioxide (21-32) mmol/L Anion Gap (3-11) BUN (7-18) mg/dl Creatinine (0.6-1.2) mg/dl Est Cr Clr Drug Dosing ml/min Est GFR ( Amer) ml/min Est GFR (Non-Af Amer) ml/min BUN/Creatinine Ratio (10-20) Glucose (70-99) mg/dl Calcium (8.5-10.1) mg/dl Magnesium 2.0 (1.8-2.4) mg/dl Troponin I (0-0.045) ng/ml SARS-CoV-2 (PCR) (Negative) Medications Administered Current Inpatient Medications Acetaminophen (Acetaminophen 325 Mg Tab) 650 mg PO Q4H PRN PRN Reason: Pain or Fever Stop: 10/02/21 12:56 Last Admin: 09/03/21 04:08 Dose: 650 mg Documented by: Aspirin (Aspirin 81 Mg Ectab) 81 mg PO DAILY DYLAN Stop: 10/03/21 08:59 Ferrous Sulfate (Ferrous Sulfate 325 Mg Tab) 325 mg PO HS DYLAN Stop: 10/02/21 20:59 Last Admin: 09/02/21 21:17 Dose: 325 mg Documented by: Furosemide (Furosemide 80 Mg Tab) 80 mg PO DAILY DYLAN Stop: 10/03/21 08:59 Hydroxyurea (Hydroxyurea 500 Mg Cap) 500 mg PO MoWeFr@0900 DYLAN Stop: 10/03/21 08:59 Loratadine (Loratadine 10 Mg Tab) 10 mg PO HS DYLAN Stop: 10/02/21 20:59 Last Admin: 09/02/21 21:16 Dose: 10 mg Documented by: Lorazepam (Lorazepam 0.5 Mg Tab) 0.5 mg PO TID PRN PRN Reason: Anxiety Stop: 10/02/21 12:56 Last Admin: 09/02/21 21:15 Dose: 0.5 mg Documented by: Magnesium Oxide (Magnesium Oxide 400 Mg Tab) 400 mg PO DAILY DYLAN Stop: 10/03/21 08:59 Metoprolol Succinate (Metoprolol Succ 50mg Ext Rel Tab) 150 mg PO BID DYLAN Stop: 10/02/21 20:59 Last Admin: 09/02/21 21:16 Dose: 150 mg Documented by: Nitrofurantoin Macrocrystals (Nitrofurantoin Monohydrate 100 Mg Cap) 100 mg PO DAILY DYLAN Stop: 10/03/21 08:59 Pantoprazole Sodium (Pantoprazole 40 Mg Tab) 40 mg PO DAILY DYLAN Stop: 10/03/21 08:59 Pregabalin (Pregabalin 50 Mg Cap) 50 mg PO BID DYLAN Stop: 10/02/21 20:59 Last Admin: 09/02/21 21:20 Dose: 50 mg Documented by: Rosuvastatin Calcium (Rosuvastatin Calcium 10 Mg Tab) 10 mg PO HS DYLAN Stop: 10/02/21 20:59 Last Admin: 09/02/21 21:16 Dose: 10 mg Documented by: Spironolactone (Spironolactone 12.5 Mg Tab) 12.5 mg PO DAILY DYLAN Stop: 10/03/21 08:59 Sucralfate (Sucralfate 1 Gm/10 Ml Udc) 1 gm PO QID [facility] Stop: 10/02/21 16:59 Last Admin: 09/02/21 21:15 Dose: 1 gm Documented by: Warfarin Sodium (Warfarin Sod 1.25 Mg Tab) 1.25 mg PO MoWeFr@1600 [facility] Stop: 10/03/21 15:59 Warfarin Sodium (Warfarin Sod 2.5 Mg Tab) 2.5 mg PO SuTuThSa@1600 [facility] Stop: 10/02/21 15:59 Last Admin: 09/02/21 16:53 Dose: 2.5 mg Documented by: (1) AF (atrial fibrillation) Atrial fibrillation type: unspecified Qualified Code(s): I48.91 - Unspecified atrial fibrillation
--- NOTE | 2021-09-03 10:15 | Cardiology Progress Note ---
Date of Service September 03, 2021 Assessment & Plan (1) Current use of long term acute care registered nurse 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: (2) Pacemaker: (3) Atrial fibrillation, persistent: (4) ASCVD (arteriosclerotic cardiovascular disease): (5) Throat burning: (6) Chest pain, unspecified: (7) Sinus node dysfunction: (8) Status post transcatheter aortic valve replacement (TAVR) using bioprosthesis: Plan: Options discussed with patient and daughter. Via shared decision making, we have agreed to the following: No further inpatient cardiac workup. OK to feed OK to discharge from a cardiac standpoint. Outpatient cardiology follow-up as scheduled, or as needed. Admission and Anticipated Discharge Date Admission Date: September 02, 2021 Supervising Physician Co-Signing Physician Notes Patient seen examined the bedside. Symptoms markedly improved with addition of proton pump inhibitor. Denies chest discomfort or burning. No orthopnea, PND, or lower extremity edema. PE: VSS. GEN: NAD, AAO x3. Heart: Irregular rhythm, normal S1-S2. 2/6 systolic ejection murmur heard best at the base. Lungs clear bilateral, no rales rhonchi or wheeze. Extremities: No edema. A/P: Agree with above PA-C history, physical exam, assessment and plan. Patient esophageal issues secondary to esophagitis. No evidence of acute coronary syndrome. No further inpatient cardiac testing or intervention at this time. Continue outpatient medications as previously ordered. Cardiology will sign off. Please do not hesitate to contact us with any further concerns/questions. Subjective Patient seen and examined. Chart, medications, and telemetry reviewed. Notes feeling considerably better after two doses of pantoprazole. No chest pain, palpitations, shortness of breath, orthopnea, PND, or peripheral edema. Troponin negative x 3 September 02, 2021 TTE Interpretation Summary ([facility], Dr. Goyal): EF 55-60%. Mild concentric LVH. Septal motion consistent with pacemaker activation. Otherwise, normal wall motion. Moderately dilated LA. Bioprosthetic aortic valve, normal gradient. Moderate mitral regurgitation. Moderate tricuspid regurgitation. Estimated systolic pulmonary pressure is 37 mmHg. Telemetry: Paced in the 70-80's, underlying atrial fibrillation/flutter. Review of Systems Review of Systems: Unremarkable or unobtainable. Physical Exam Physical Exam: General: A&Ox3. NAD. HENT: Normocephalic. Atraumatic. Neck: Normal JVP. Bilateral carotid bruits. Lungs: Clear to auscultation Cardiovascular: Regular. Grade II/IV systolic ejection murmur. No diastolic murmur. No rub Abdomen: Soft, nontender. No hepatojugular reflux. Extremities: No edema. No clubbing. No cyanosis. Pulses: The right posterior tibial pulse was 2/4 and the left posterior tibial pulse was 1/4 Results & Data ([facility]) Vital Signs (Past 12 Hours) Vital Signs Temp Pulse Resp BP BP Pulse Ox 09/03/21 07:06 36.5 C 75 16 111/76 94 09/03/21 04:05 36.5 C 78 18 137/75 94 09/03/21 00:05 36.8 C 77 18 116/65 94 Laboratory Results Laboratory Results - last 24 hr 09/02/21 09/02/21 09/02/21 08:05 13:51 20:06 WBC RBC Hgb Hct MCV MCH MCHC RDW Std Deviation RDW Coeff of Ge Plt Count MPV PT INR Sodium Potassium Chloride Carbon Dioxide Anion Gap BUN Creatinine Est Cr Clr Drug Dosing Est GFR ( Amer) Est GFR (Non-Af Amer) BUN/Creatinine Ratio Glucose Calcium Magnesium 2.0 Troponin I < 0.015 < 0.015 09/03/21 09/03/21 09/03/21 06:11 06:11 06:11 WBC 9.72 RBC 4.27 Hgb 13.5 Hct 43.2 MCV 101.2 H MCH 31.6 MCHC 31.3 L RDW Std Deviation 59.8 H RDW Coeff of Ge 16.2 H Plt Count 479 H MPV 11.7 H PT 34.2 H INR 3.7 H Sodium 141 Potassium 3.7 Chloride 103 Carbon Dioxide 33 H Anion Gap 5.0 BUN 22 H Creatinine 1.09 Est Cr Clr Drug Dosing 35.7 Est GFR ( Amer) 53.6 Est GFR (Non-Af Amer) 46.3 BUN/Creatinine Ratio 20.1 H Glucose 119 H Calcium 9.2 Magnesium Troponin I (1) Chest pain, unspecified Chest pain type: unspecified Qualified Code(s): R07.9 - Chest pain, unspecified
[2021-09-03] MEDS: METOPROLOL SUCC 50MG EXT REL TAB PO SCH (10:48)
[2021-09-03] MEDS: SUCRALFATE 1 GM/10 ML UDC PO SCH (10:50)
[2021-09-03] MEDS: PREGABALIN 50 MG CAP PO SCH (10:52)
--- NOTE | 2021-09-03 12:06 | Discharge Summary ---
Date of Service September 03, 2021 Admission HPI Per Admitting Provider 86-year-old female with PMH CAD s/p CABG and stenting, bioprosthetic aortic valve replacement, persistent atrial fibrillation anticoagulated on Coumadin, sinus node dysfunction s/p pacemaker, CKD stage III, HTN, and other problems listed below who presents to the ED for evaluation of throat discomfort. Patient reports that whenever she woke up this morning, she felt a lump in her throat. The discomfort was radiating up into both jaws. Patient reports symptoms are reminiscent of her prior [place]. Patient took 3 sublingual nitroglycerin without relief in symptoms. She then called EMS and was brought to the ED for further evaluation. Patient denies any associated chest pain, lightheadedness, dizziness, diaphoresis. Patient reports she otherwise has been feeling well recently. Was evaluated by cardiology on 08/30 and was found to be in persistent atrial fibrillation despite sotalol therapy. At that time, sotalol was discontinued and metoprolol was increased. Patient reports chronic exertional shortness of breath which is unchanged from baseline. Has chronic lower extremity edema which is at baseline as well. No abdominal pain, nausea, vomiting, diarrhea. No other recent illnesses, fevers, chills. She denies urinary symptoms. In the ED, initial troponin is negative, EKG shows new T wave inversions in the lateral leads. Patient is hemodynamically stable, labs are unremarkable. Admission Exam Per Admitting Provider Constitutional: WD/WN, vitals as above Eyes: PERRL, conjunctivae normal, anicteric sclerae ENMT: external ear and nose normal, oropharynx normal Respiratory: normal respiratory effort, lungs clear to auscultation Cardiovascular: Rate/Rhythm: irregular rhythm Vessels: normal peripheral pulses Extremities: + edema (+1 pitting edema BLE) Gastrointestinal (Abdomen): normal bowel sounds, soft, nontender, no hepatosplenomegaly Musculoskeletal: no cyanosis or clubbing, extremities motor strength 5/5 Skin: no rashes, warm and dry Neurologic: PERRL, EOMI, accommodation nl, no face palsy, no dysarthria Psychiatric: A+Ox3, euthymic affect Principal Diagnosis Esophagitis Chest and neck discomfort Discharge Exam Constitutional: WD/WN, elderly F in NAD Eyes: PERRL, EOMI, conjunctivae normal, anicteric sclerae ENMT: external ear and nose normal, oropharynx normal Respiratory: normal respiratory effort, lungs clear to auscultation Cardiovascular: irregular, + mild LE edema b/l (improved) Gastrointestinal (Abdomen): normal bowel sounds, soft, nontender Musculoskeletal: extremities motor strength 5/5 Skin: no rashes, warm and dry Neurologic: PERRL, EOMI, no face palsy, no dysarthria, moves extremities Psychiatric: A+Ox3, euthymic affect Discharge Data Allergies Allergy/AdvReac Type Severity Reaction Status Date / Time iodine Allergy Intermediate itching Verified 03/26/21 14:08 amiodarone Allergy Mild UNSURE Verified 03/26/21 14:08 etodolac Allergy Mild Unknown Verified 03/26/21 14:08 Sulfa (Sulfonamide Allergy Mild Unknown Verified 03/26/21 14:08 Antibiotics) gabapentin AdvReac Mild sedation Verified 03/26/21 14:08 Penicillins AdvReac Mild YEAST INF Verified 03/26/21 14:08 simvastatin AdvReac Unknown CAN'T Verified 03/26/21 14:08 REMEMBER Consultations 09/02/21 09:46 ED Decision to Admit Stat 09/02/21 10:33 Consult Cardiology Routine 09/02/21 13:46 Consult Gastroenterology Routine Ordered Studies 09/02/21 10:19 CT soft tissue neck wo con Routine IMPRESSION: 1. Circumferential wall thickening suggested in the visualized esophagus. Correlate clinically for evidence of esophagitis. This could be further assessed with endoscopy if clinically warranted. 2. The unenhanced pharyngeal soft tissues are grossly unremarkable. Hospital Course (1) Acute electrocardiogram changes: (2) History of coronary artery disease: -Admitted to telemetry -Patient presenting from home with reports of throat discomfort radiating into her to her jaw, reminiscent of [place] in 2006 -In the ED, initial troponin negative, EKG shows new T wave inversions in the lateral leads -CT neck was obtained that showed signs of esophagitis which may be the cause of patient's symptoms however given history of CAD and EKG changes, will pursue cardiac work-up -Serial troponin negative resting echo - EF 55 to 60%. There is mild concentric LVH. Septal motion consistent with pacemaker activation. Otherwise normal wall motion. LA is moderately dilated. There is bioprosthetic aortic valve. The gradient is normal for this prosthetic aortic valve. There is moderate mitral regurg. There is moderate tricuspid regurg. The estimated systolic pulmonary pressure is 37 mmHg. -Continue ASA, statin, beta-buddy -Cardiology consult, case discussed with Dr. Goyal - plan to follow up as outpt, no further work-up at this time recommended. (3) Esophagitis: -CT neck was obtained to evaluate for foreign body due to complaints of throat discomfort. CT neck showed Circumferential wall thickening suggested in the visualized esophagus. Correlate clinically for evidence of esophagitis. -EGD 03/2021: Normal esophagus, normal stomach, normal examined duodenum -Continue PPI, started Carafate -GI consult, case discussed with Anabel WORTHINGTON -Patient much improved on current medication, plan to follow-up with GI as outpatient -We will discharge with pantoprazole and Carafate 4 times daily (4) Sinus node dysfunction: (5) Pacemaker: -No acute issues -Device interrogation performed in ED (6) AF (atrial fibrillation): -Recently evaluated in the cardiology clinic on 08/30 and found to be in persistent atrial fibrillation despite sotalol therapy. Sotalol discontinued at that time and metoprolol succinate increased to 150 mg BID. -On Coumadin, INR 3.3 on admission -current INR 3.7 - hold coumadin today, plan to re-check on Monday or Monday (7) Chronic diastolic CHF (congestive heart failure): -Appears euvolemic -Continue home doses of furosemide and spironolactone (8) CKD (chronic kidney disease), stage III: -Baseline creatinine low 1's -Creatinine 1.2 today -Monitor renal function (9) DVT prophylaxis: -On Coumadin Total Time Total Time Spent Total Time Spent (In Minutes): 40 Discharge Plan Discharge Items Patient Disposition: Home - Self-Care Reason For Visit: CHEST PAIN Discharge Diagnosis: Esophagitis Chest and neck discomfort Activity: Per Instructions section Non-emergency contact: Primary Care Provider Call non-emergency contact if: you have any medication questions and your symptoms worsen Follow-up/Referrals: Bucky Calvo [Physician It Security Manager] - (Date & Time 09/29/2021 3:30 PM Provider Bucky Calvo PA-C Department Cardiology, [facility] ) Keely Tanner PA-C [Physician It Security Manager] - (Date & Time 09/17/2021 11:20 AM Provider Keely Tanner PA-C Department Otolaryngology [facility] ) Yaya Frederick MD [Primary Care Provider] - (Date & Time 09/07/2021 11:00 AM Provider Misty Calzada MD Department Family Practice [facility] ) Diet: Heart Healthy Diet Texture: Dental soft (bite-sized) Addtl Attending Provider Instructions: Follow-up with your primary care doctor, the appointment was scheduled for you for September 07. Follow-up with cardiology, the appointment was already scheduled for you for 4 times a day. Follow-up with gastroenterology/ENT, you will be contacted about the appointments. Make sure to eat foods that are easy to swallow and moist. Discuss with your primary care doctor if any of your medications needs to be adjusted. Take all your pills with plenty of water. Your INR was elevated today, at 3.7, do not take your Coumadin today. Have your INR rechecked at your earliest convenience. For esophagitis, take pantoprazole 40 mg daily and sucralfate 4 times a day. Pending Studies at Discharge: No Stand-Alone Forms: My [facility], Smoking Cessation Medications and DC Order Prescriptions: New sucralfate 100 mg/mL Suspension 1 g PO QID Qty: 200 RF: 0 pantoprazole 40 mg Tablet,Delayed Release (Dr/Ec) 40 mg PO DAILY Qty: 30 RF: 0 Continued pregabalin [Lyrica] 50 mg capsule 50 mg PO BID RF: 0 hydroxyurea 500 mg capsule 500 mg PO [id number] RF: 0 warfarin 2.5 mg Tablet 2.5 mg PO SUTUTHSA RF: 0 nitrofurantoin monohyd/m-cryst 100 mg capsule 100 mg PO DAILY RF: 0 warfarin 2.5 mg tablet 1.25 mg PO MOWEFR RF: 0 metoprolol succinate 100 mg tablet extended release 24 hr 150 mg PO BID RF: 0 aspirin 81 mg Tablet,Delayed Release (Dr/Ec) 81 mg PO DAILY RF: 0 spironolactone 25 mg tablet 12.5 mg PO DAILY RF: 0 lorazepam 0.5 mg tablet 0.5 mg PO TID PRN (Reason: Anxiety) RF: 0 furosemide [Lasix] 80 mg Tablet 80 mg PO DAILY RF: 0 diphenhydramine HCl [Benadryl] 25 mg Capsule 25 mg PO Q6H PRN (Reason: allergies) RF: 0 ferrous sulfate [iron] 325 mg (65 mg iron) Tablet 325 mg PO HS RF: 0 nitroglycerin 0.4 mg tablet, sublingual 0.4 mg sublingual UD PRN (Reason: Chest Pain) RF: 0 docusate sodium [Colace] 100 mg Capsule 400 mg PO DAILY RF: 0 mometasone [Nasonex] 50 mcg/actuation [place],Non-Aerosol 2 spray INTRANASAL DAILY RF: 0 epinephrine [EpiPen] 0.3 mg/0.3 mL Auto-Injector 0.3 mg IM UD PRN (Reason: Allergic Reaction) RF: 0 loratadine 10 mg Tablet 10 mg PO HS RF: 0 rcfmbyeirsby-xazihtfe-rloehz Tablet 1 tab PO DAILY RF: 0 rosuvastatin [Crestor] 10 mg Tablet 10 mg PO HS RF: 0 camphor-menthol 0.2-3.5 % Gel 1 applic TOPICAL BID PRN (Reason: Pain) RF: 0 Caltrate + D3 Plus Minerals 300 mg-800 unit -25 mg-0.5 mg Tablet 1 tab PO BID RF: 0 magnesium oxide 400 mg magnesium Tablet 400 mg PO DAILY RF: 0 Discontinued omeprazole 20 mg Tablet,Delayed Release (Dr/Ec) 20 mg PO DAILY RF: 0 Discharge Orders: Discharge Order (Routine); Ordered 09/03/21 Ordered By: Rafael Keller Admission Data Admit Date/Time: 09/02/21 10:01 Attending Provider: Rafael Keller Admit Provider: Rafael Keller Primary Care Provider: Yaya Frederick Other Providers: Rafael Keller ; Rohan Goyal Donald S.
--- NOTE | 2021-09-03 13:44 | Electrocardiogram Report ---
Test Reason : Blood Pressure : / mmHG Vent. Rate : 076 BPM Atrial Rate : 326 BPM P-R Int : 000 ms QRS Dur : 140 ms QT Int : 464 ms P-R-T Axes : 090 101 -12 degrees QTc Int : 522 ms Suspect arm lead reversal, interpretation assumes no reversal Atrial flutter with variable A-V block with occasional ventricular-paced complexes and with premature ventricular or aberrantly conducted complexes Right bundle branch block Abnormal ECG When compared with ECG of 02-SEP-2021 07:37, Vent. rate has decreased BY 3 BPM Confirmed by Ishmael Hooks ([id number]) on 09/03/2021 1:44:09 PM Referred By: REFERRED SELF Confirmed By:Ishmael Hooks
[2021-09-03] MEDS ORDERED: WARFARIN SOD 1.25 MG TAB PO SCH (16:00)
== END 2021-09-03 14:32 | disposition home or self-care (01) ==
LOC: ED 07:31 → 2S 07:31

== ENCOUNTER 2023-01-29 17:03 | Inpatient (IN) ==
[2023-01-29] MEDS ORDERED: SODIUM CHLORIDE 0.9% 500 ML IV STA (17:18)
[2023-01-29] MEDS ORDERED: ONDANSETRON INJ 2 MG/ML 2 ML VIAL IV STA (17:18)
--- NOTE | 2023-01-29 17:38 | Emergency Department Note ---
Impression & Plan Diverticulitis, Acute pyelonephritis, UTI due to extended-spectrum beta lactamase (ESBL) producing Escherichia coli, RADHA (acute kidney injury) ED Provider Note NAME: SARAH HOLMAN AGE: 87 SEX: F : 1935 ARRIVES VIA: Walk-In INFORMANT: Patient, ED PROVIDER(S): Ishmael Chaudhari DO CHIEF COMPLAINT: Pelvic pain HPI: The patient is an 87-year-old female who presented to the emergency department for pelvic pain. The patient has a history of ESBL E. coli urinary tract infection. She was seen by her primary care physician this past week. She was diagnosed with a urinary tract infection and started on Bactrim. She states that she has been compliant with the outpatient medication regimen but still starts to feel pelvic pain and fullness. She denies having any vomiting. She does complain of nausea. She also complains of shortness of breath with exertion and weakness. The patient denies having any new back pain she has a history of chronic back pain and states that she does notice it more than usual. She denies having any lower extremity swelling. She denies having any recent trauma. The patient has not had a fever. ROS: See above HPI for pertinent positives & negatives. A total of 10 systems reviewed and were otherwise negative. PAST MEDICAL HISTORY: See Below PAST SURGICAL HISTORY: See Below FAMILY HISTORY: See Below SOCIAL HISTORY: See Below HOME MEDICATIONS: See Below ALLERGIES: See Below VITALS: See Below PHYSICAL EXAMINATION: GENERAL: Patient is awake alert in no acute distress patient is resting comfortably and showing no signs of anxiety EYES: The conjunctivae are clear. The pupils are round and reactive. EARS, NOSE, MOUTH AND THROAT: The nose is without any evidence of any deformity. Mucous membranes are moist. NECK: The neck is nontender and supple. RESPIRATORY: Normal respiratory effort is noted there is no evidence of wheezing rhonchi or rales CARDIOVASCULAR: Irregular heart sounds were noted to auscultation. There is no definite murmur. GASTROINTESTINAL: The abdomen is soft and nondistended. There is no tenderness guarding or rigidity. BACK: There is no CVA tenderness noted bilaterally. MUSCULOSKELETAL/EXTREMITIES: There is no evidence of gross deformity full range of motion is noted in the hips and shoulders. SKIN: There is no obvious evidence of any rash. There are no petechiae, pallor or cyanosis noted. NEUROLOGIC: Patient is awake alert and oriented x3. MEDICAL DECISION MAKING: Provider summary Triage Nursing notes reviewed. The patient is an 87-year-old female who presented to the emergency department for an evaluation of urine infection. The patient states that she was having some flank pain as well as pelvic pain. She has had urinary tract infection in the past with E. coli ESBL. She was seen by her primary care physician earlier this week and started on Macrobid. Her culture did appear to be consistent with her previous pathogen. She presented to the emergency department today because of worsening symptoms. I discussed patient's laboratory and radiographic studies with her. She was found of a slight elevation in her creatinine compared to baseline. She was treated with a small fluid bolus given her cardiac history. She was short of breath as well EKG shows some volume overload. She was also started on Zosyn in the emergency department. CT appears to be consistent with diverticulitis in the urinary tract infection appears to be present still in the urinalysis. Zosyn would cover both these pathogens. I discussed the patient's condition with the on-call [facility] hospitalist. They have agreed to evaluate the patient in the emergency department for further management and disposition. Vital Signs: reviewed and remarkable for no significant abnormalities Differential diagnosis: Renal colic, UTI, appendicitis, diverticulitis, mesenteric ischemia, aortic pathology, infections, inflammatory bowel disease, PUD, biliary pathology, as well as other pathologies. ER treatment provided: See below Diagnostics interpreted by me: ECG: EKG was obtained in the emergency department. My interpretation is atrial fibrillation at 82 bpm. Right bundle branch block pattern was noted. Nonspecific ST depressions were noted. This was compared to a tracing from January 12, 2022. No specific changes were noted. Cardiac Monitoring: An order was placed for continuous cardiac monitoring. The monitor shows a rate of 82 bpm with atrial fibrillation. Laboratory studies: As stated above and show below. Imaging studies: See below. Radiographic imaging was reviewed by myself Consultation(s): I discussed this case with Dr. Obrien [facility]. Past Med/Surg History Medical History Anemia ASCVD (arteriosclerotic cardiovascular disease) 2006 - CABG x 3, bioproesthetic aortic valve replacement 2007 - PCI and stenting to SVG to RCA occlusion Atrial fibrillation, persistent Cardiac pacemaker in situ Carotid artery occlusion (Unknown) Chronic diastolic CHF (congestive heart failure) CKD (chronic kidney disease) stage 2, GFR 60-89 ml/min CKD (chronic kidney disease), stage III Current use of fpc 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 Dermatitis Essential thrombocythemia Generalized weakness HLD (hyperlipidemia) HTN (hypertension) Replacement of aortic valve (Unknown) [place] [place] " Sensorineural hearing loss of both ears Sinus node dysfunction 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 UTI due to extended-spectrum beta lactamase (ESBL) producing Escherichia coli Surgical History Coronary artery bypass grafting (Unknown) [place] [place] 2006 VARGHESE to LAD SVG's to diagonal, obtuse marginal, RCA " History of colonoscopy with polypectomy History of cystoscopy History of tubal ligation Implantation of aortic valve prosthesis or synthetic device (Unknown) Placement of stent in coronary artery (Unknown) "[facility] December 2006 " Status post transcatheter aortic valve replacement (TAVR) using bioprosthesis Stented coronary artery (Unknown) Total abdominal hysterectomy with bilateral salpingo-oophorectomy (Unknown) Family History Father Prostate cancer Mother Diabetes Sister Coronary heart disease Social History Smoking Status: Never smoker Second Hand Exposure: No; Hx Alcohol Use: No Hx Substance Use: No Preferred Language: Northern Irish Communication Ability: Effective Visual Impairment: No Limitations Hearing Ability: Normal 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 Beliefs That Will Affect Care: None marital status: / Current Living Situation: Alone Feels Safe at Home: Yes Assistive Devices: Denture - Upper, Glasses and Hearing Aid - Bilateral Allergies Allergies Allergy/AdvReac Type Severity Reaction Status Date / Time iodine Allergy Intermediate itching Verified 03/26/21 14:08 amiodarone Allergy Mild UNSURE Verified 03/26/21 14:08 etodolac Allergy Mild Unknown Verified 03/26/21 14:08 Sulfa (Sulfonamide Allergy Mild Unknown Verified 03/26/21 14:08 Antibiotics) gabapentin AdvReac Mild sedation Verified 03/26/21 14:08 Penicillins AdvReac Mild YEAST INF Verified 03/26/21 14:08 simvastatin AdvReac Unknown CAN'T Verified 03/26/21 14:08 REMEMBER Home Meds Home Medications Medication Instructions Recorded Confirmed aspirin 81 mg tablet,delayed 81 mg PO DAILY 01/24/21 09/02/21 release calcium carb 300 mg-D3 800 1 tab PO BID 01/24/21 09/02/21 unit-mag ox 25 mg-copier operator 0.5 mg-cristine-Zn tablet (Caltrate + D3 Plus Minerals) camphor-menthol 0.2 %-3.5 % 1 applic topical BID PRN Pain 01/24/21 09/02/21 topical gel diphenhydramine HCl 25 mg capsule 25 mg PO Q6H PRN allergies 01/24/21 09/02/21 (Benadryl) docusate sodium 100 mg capsule 400 mg PO DAILY 01/24/21 09/02/21 (Colace) epinephrine 0.3 mg/0.3 mL 0.3 mg IM UD PRN Allergic Reaction 01/24/21 09/02/21 injection, auto-injector (EpiPen) ferrous sulfate 325 mg (65 mg 325 mg PO HS 01/24/21 09/02/21 iron) tablet (iron) furosemide 80 mg tablet (Lasix) 80 mg PO DAILY 01/24/21 09/02/21 loratadine 10 mg tablet 10 mg PO HS 01/24/21 09/02/21 lorazepam 0.5 mg tablet 0.5 mg PO TID PRN Anxiety 01/24/21 09/02/21 magnesium oxide 400 mg PO DAILY 01/24/21 09/02/21 metoprolol succinate 100 mg 150 mg PO BID 01/24/21 09/02/21 tablet,extended release 24 hr mometasone 50 mcg/actuation nasal 2 spray intranasal DAILY 01/24/21 09/02/21 spray (Nasonex) tikmvqehjrer-nnizlksz-wbcrww tablet 1 tab PO DAILY 01/24/21 09/02/21 nitroglycerin 0.4 mg sublingual 0.4 mg sublingual UD PRN Chest Pain 01/24/21 09/02/21 tablet rosuvastatin 10 mg tablet (Crestor) 10 mg PO HS 01/24/21 09/02/21 spironolactone 25 mg tablet 12.5 mg PO DAILY 01/24/21 09/02/21 hydroxyurea 500 mg capsule 500 mg PO 3XWK 03/24/21 09/02/21 pregabalin 50 mg capsule (Lyrica) 50 mg PO BID 03/24/21 09/02/21 warfarin 2.5 mg tablet 2.5 mg PO SUTUTHSA 03/24/21 09/02/21 nitrofurantoin 100 mg PO DAILY 09/02/21 09/02/21 monohydrate/macrocrystals 100 mg capsule warfarin 2.5 mg tablet 1.25 mg PO MOWEFR 09/02/21 09/02/21 Previous Rx's Medication Instructions Recorded pantoprazole 40 mg tablet,delayed 40 mg PO DAILY #30 tabs 09/03/21 release sucralfate 100 mg/mL oral 1 g (10 mL) PO QID #200 mL 09/03/21 suspension Results & Data (ED) Vital Signs Vital Signs - 24 hr 01/29/23 17:06 01/29/23 17:18 01/29/23 19:08 Temperature 36.8 C Temperature Source Temporal Artery Scan Pulse Rate 81 Pulse Rate [Finger] 76 Respiratory Rate 18 16 Respiratory Effort / Characteristics Non-Labored Spontaneous Respiratory Depth Normal Respiratory Pattern Regular Blood Pressure 144/90 H Blood Pressure [Right Arm] 139/81 Blood Pressure Mean 108 Blood Pressure Mean [Right Arm] 100 Blood Pressure Position Sitting Pulse Oximetry 95 98 Oxygen Delivery Method Room Air Room Air Room Air Sepsis Recent Fever Within 48 Hours No Sepsis New/Unexplained Change in Mental Status No Sepsis Action Taken by Nursing No Action Required Home Medications Current Medication List: was personally reviewed by me Laboratory Data Attestation: I reviewed the patient's lab results. 01/29/23 17:29 01/29/23 17:29 Lab Results 01/29/23 01/29/23 01/29/23 Range/Units 17:29 17:29 17:29 WBC 7.80 (4.8-10.8) K/ul RBC 3.38 L (4.20-5.40) M/uL Hgb 12.0 (12.0-16.0) g/dl Hct 37.2 (37.0-47.0) % MCV 110.1 H (80.0-100.0) fL MCH 35.5 H (25.0-34.0) pg MCHC 32.3 (32.0-36.0) g/dL RDW Std Deviation 58.5 H (36.4-46.3) fL RDW Coeff of Ge 14.4 (11.5-14.5) % Plt Count 337 (130-400) K/uL MPV 11.1 (9.4-12.4) fL Immature Gran % (Auto) 0.3 % Neut % (Auto) 72.0 % Lymph % (Auto) 11.4 % [place] % (Auto) 11.3 % Eos % (Auto) 4.1 % Baso % (Auto) 0.9 % Neut # (Auto) 5.62 (1.40-6.50) K/uL Lymph # (Auto) 0.89 L (1.2-3.4) K/uL [place] # (Auto) 0.88 H (0.11-0.59) K/uL Eos # (Auto) 0.32 (0-0.50) K/uL Baso # (Auto) 0.07 (0-0.2) K/uL Immature Gran # (Auto) 0.02 (0.01-0.20) K/uL RBC Morphology Unremarkable PT 18.2 H (9.0-12.0) Seconds INR 1.8 H (0.9-1.1) APTT 32.4 H (21.0-31.0) Seconds PTT Ratio 1.2 Sodium 138 (136-145) mmol/L Potassium TNP Chloride 103 (98-107) mmol/L Carbon Dioxide 32 (21-32) mmol/L Anion Gap 3 (3-11) BUN 29 H (6-23) mg/dl Creatinine 1.55 H (0.6-1.2) mg/dl Est Cr Clr Drug Dosing 23.3 ml/min Est GFR ( Amer) 34.8 ml/min Est GFR (Non-Af Amer) 30.0 ml/min BUN/Creatinine Ratio 18.7 (10-20) Glucose 113 H (70-99(Fasting)) mg/dl Calcium 9.6 (8.6-10.3) mg/dl Total Bilirubin 0.8 (0.2-1.0) mg/dl AST TNP ALT 15 (7-52) U/L Alkaline Phosphatase 80 (34-104) U/L Troponin I High Sens 15.7 H (0-14) pg/ml Total Protein 7.8 (6.0-8.3) gm/dl Albumin 4.1 (3.4-5.0) gm/dl Globulin 3.7 (2.5-4.0) gm/dl Albumin/Globulin Ratio 1.1 (0.9-2) Lipase 73 (11-82) U/L Urine Color Urine Appearance (Clear) Urine pH (4.5-7.5) Ur Specific [place] (1.000-1.030) Urine Protein (Negative) Urine Glucose (UA) (Negative) Urine Ketones (Negative) Urine Blood (Negative) Urine Nitrite (Negative) Urine Bilirubin (Negative) Urine Urobilinogen (Negative) Ur Leukocyte Esterase (Negative) SARS-CoV-2, RNA, NAAT (NEGATIVE) 01/29/23 01/29/23 Range/Units 17:29 18:26 WBC (4.8-10.8) K/ul RBC (4.20-5.40) M/uL Hgb (12.0-16.0) g/dl Hct (37.0-47.0) % MCV (80.0-100.0) fL MCH (25.0-34.0) pg MCHC (32.0-36.0) g/dL RDW Std Deviation (36.4-46.3) fL RDW Coeff of Ge (11.5-14.5) % Plt Count (130-400) K/uL MPV (9.4-12.4) fL Immature Gran % (Auto) % Neut % (Auto) % Lymph % (Auto) % [place] % (Auto) % Eos % (Auto) % Baso % (Auto) % Neut # (Auto) (1.40-6.50) K/uL Lymph # (Auto) (1.2-3.4) K/uL [place] # (Auto) (0.11-0.59) K/uL Eos # (Auto) (0-0.50) K/uL Baso # (Auto) (0-0.2) K/uL Immature Gran # (Auto) (0.01-0.20) K/uL RBC Morphology PT (9.0-12.0) Seconds INR (0.9-1.1) APTT (21.0-31.0) Seconds PTT Ratio Sodium (136-145) mmol/L Potassium Chloride (98-107) mmol/L Carbon Dioxide (21-32) mmol/L Anion Gap (3-11) BUN (6-23) mg/dl Creatinine (0.6-1.2) mg/dl Est Cr Clr Drug Dosing ml/min Est GFR ( Amer) ml/min Est GFR (Non-Af Amer) ml/min BUN/Creatinine Ratio (10-20) Glucose (70-99(Fasting)) mg/dl Calcium (8.6-10.3) mg/dl Total Bilirubin (0.2-1.0) mg/dl AST ALT (7-52) U/L Alkaline Phosphatase (34-104) U/L Troponin I High Sens (0-14) pg/ml Total Protein (6.0-8.3) gm/dl Albumin (3.4-5.0) gm/dl Globulin (2.5-4.0) gm/dl Albumin/Globulin Ratio (0.9-2) Lipase (11-82) U/L Urine Color Yellow Urine Appearance Cloudy A (Clear) Urine pH 5.5 (4.5-7.5) Ur Specific [place] 1.015 (1.000-1.030) Urine Protein 1+ H (Negative) Urine Glucose (UA) Negative (Negative) Urine Ketones Trace H (Negative) Urine Blood Trace-lysed H (Negative) Urine Nitrite Negative (Negative) Urine Bilirubin Negative (Negative) Urine Urobilinogen Negative (Negative) Ur Leukocyte Esterase 3+ H (Negative) SARS-CoV-2, RNA, NAAT NEGATIVE (NEGATIVE) Administered Medications Discontinued Medications Sodium Chloride (Nss) 500 mls @ 999 mls/hr IV .Q31M STA Stop: 01/29/23 17:48 Last Infusion: 01/29/23 18:57 Dose: 0 mls/hr Documented By: Admin: 01/29/23 17:53 Dose: 999 mls/hr Documented By: ALDO Ondansetron HCl (Ondansetron Inj 2 Mg/Ml 2 Ml Vial) 4 mg IV NOW STA Stop: 01/29/23 17:19 Last Admin: 01/29/23 17:52 Dose: Not Given Documented By: ALDO Imaging Data Attestation: I personally reviewed and interpreted this imaging study as follows: My Impression: 1 view chest x-ray was obtained in the emergency department. My interpretation is no definite filtrate, no free air, final report below. Radiologist's Impression: Chest X-Ray 01/29/23 17:18 XR chest 1V portable CLINICAL HISTORY: Shortness of breath. COMPARISON STUDY: Chest radiograph September 02, 2021. FINDINGS: Left subclavian pacer, median sternotomy wires and mediastinal surgical clips are noted. There is no pneumothorax or pleural effusion. No consolidation is present. Cardiomegaly is unchanged. There is pulmonary vascular congestion without overt pulmonary edema. IMPRESSION: Cardiomegaly. Pulmonary vascular congestion without overt pulmonary edema. ACT 112: Negative or not required by law. Electronically signed by: Ishmael Chaudhary M.D. 01/29/2023 6:29 PM Abdomen/Pelvis CT 01/29/23 17:30 CT OF THE ABDOMEN AND PELVIS WITHOUT CONTRAST CLINICAL HISTORY: Flank pain. COMPARISON STUDY: KUB August 02, 2013 and right upper cord ultrasound June 28, 2007. TECHNIQUE: Axial images of the abdomen and pelvis were obtained without IV contrast. Images were reviewed in the axial, sagittal, and coronal planes. Automated exposure control was utilized for the study. A dose lowering technique was utilized adhering to the principles of ALARA. FINDINGS: Pacer leads are partially imaged. There is cardiomegaly. No pneumatosis, free air or portal venous gas is present. There is a 5 mm calculus within lower pole of the left kidney. There are no ureteral calculi. No hydro nephrosis. Moderate multifocal scarring of the kidneys is noted. 1.5 cm hyperdense right renal lesion on axial image 201 of 471 is suboptimally assessed on this unenhanced exam but may reflect a hyperdense cyst. Unenhanced images of the liver, spleen, adrenal glands and pancreas are unremarkable. There is no biliary or pancreatic ductal dilatation. There is no evidence for a bowel obstruction. The appendix is normal. Colonic diverticulosis is noted. There is wall thickening of the proximal to mid sigmoid colon with mild adjacent stranding. There is no free air or abscess. The findings favor acute diverticulitis. No additional sites of abnormal thickening identified on this unenhanced examination. No acute fracture or suspicious lesion is identified within visualized skeletal structures. IMPRESSION: 1. Colonic diverticulosis. Wall thickening of the proximal to mid sigmoid colon with mild associated inflammation. The findings favor acute diverticulitis. A nonspecific colitis could appear similar. No free air or abscess. 2. 5 mm left renal calculus. No ureteral calculi or hydronephrosis. ACT 112: Negative or not required by law. Electronically signed by: Ishmael Chaudhary M.D. 01/29/2023 6:58 PM Discharge Plan Visit Data Chief Complaint: Urinary Symptoms Stated Complaint: UTI ED Provider: Ishmael Chaudhari Discharge Problem: Diverticulitis, Acute pyelonephritis, UTI due to extended-spectrum beta lactamase (ESBL) producing Escherichia coli, RADHA (acute kidney injury) Patient Disposition: Being Evaluated by Hospitalist Forms Stand Alone Forms: My [facility] [place] [facility] Prescriptions Prescriptions: No Action pregabalin [Lyrica] 50 mg capsule 50 mg PO BID hydroxyurea 500 mg capsule 500 mg PO [id number] Rx Instructions: mowefr per pt warfarin 2.5 mg Tablet 2.5 mg PO SUTUTHSA nitrofurantoin monohyd/m-cryst 100 mg capsule 100 mg PO DAILY warfarin 2.5 mg tablet 1.25 mg PO MOWEFR sucralfate 100 mg/mL Suspension 1 g PO QID Qty: 200 0RF pantoprazole 40 mg Tablet,Delayed Release (Dr/Ec) 40 mg PO DAILY Qty: 30 0RF metoprolol succinate 100 mg tablet extended release 24 hr 150 mg PO BID aspirin 81 mg Tablet,Delayed Release (Dr/Ec) 81 mg PO DAILY spironolactone 25 mg tablet 12.5 mg PO DAILY lorazepam 0.5 mg tablet 0.5 mg PO TID PRN (Reason: Anxiety) furosemide [Lasix] 80 mg Tablet 80 mg PO DAILY diphenhydramine HCl [Benadryl] 25 mg Capsule 25 mg PO Q6H PRN (Reason: allergies) ferrous sulfate [iron] 325 mg (65 mg iron) Tablet 325 mg PO HS nitroglycerin 0.4 mg tablet, sublingual 0.4 mg sublingual UD PRN (Reason: Chest Pain) docusate sodium [Colace] 100 mg Capsule 400 mg PO DAILY mometasone [Nasonex] 50 mcg/actuation [place],Non-Aerosol 2 spray INTRANASAL DAILY epinephrine [EpiPen] 0.3 mg/0.3 mL Auto-Injector 0.3 mg IM UD PRN (Reason: Allergic Reaction) loratadine 10 mg Tablet 10 mg PO HS gdojetldgfrg-avymoqlk-denxdh Tablet 1 tab PO DAILY rosuvastatin [Crestor] 10 mg Tablet 10 mg PO HS camphor-menthol 0.2-3.5 % Gel 1 applic TOPICAL BID PRN (Reason: Pain) Caltrate + D3 Plus Minerals 300 mg-800 unit -25 mg-0.5 mg Tablet 1 tab PO BID magnesium oxide 400 mg magnesium Tablet 400 mg PO DAILY Referrals Referrals: Yaya Frederick MD [Primary Care Provider] -
[2023-01-29 17:52] LABS: Basophils # (auto) 0.07 K/uL (0-0.2); Basophils % (auto) 0.9 %; Eosinophils # (auto) 0.32 K/uL (0-0.50); Eosinophils % (auto) 4.1 %; Hematocrit (blood only) 37.2 % (37.0-47.0); Immature Granulocytes # (auto) 0.02 K/uL (0.01-0.20); Immature Granulocytes % (auto) 0.3 %; Lymphocytes # (auto) 0.89 K/uL (1.2-3.4); Lymphocytes % (auto) 11.4 %; Mean Corpuscular Hemoglobin 35.5 pg (25.0-34.0); Mean Corpuscular Hgb Conc 32.3 g/dL (32.0-36.0); Mean Corpuscular Volume 110.1 fL (80.0-100.0); Mean Platelet Volume 11.1 fL (9.4-12.4); Monocytes # (auto) 0.88 K/uL (0.11-0.59); Monocytes % (auto) 11.3 %; Neutrophils # (auto) 5.62 K/uL (1.40-6.50); Platelet Count 337 K/uL (130-400); RDW Coefficient of Variation 14.4 % (11.5-14.5); RDW Standard Deviation 58.5 fL (36.4-46.3); Red Blood Count 3.38 M/uL (4.20-5.40)
[2023-01-29 18:13] LABS: INR 1.8 (0.9-1.1); Partial Thromboplastin Ratio 1.2; Partial Thromboplastin Time 32.4 Seconds (21.0-31.0); Prothrombin Time 18.2 Seconds (9.0-12.0); RBC Morphology Unremarkable
[2023-01-29 18:16] LABS: Alanine Aminotransferase 15 U/L (7-52); Albumin Globulin Ratio 1.1 (0.9-2); Albumin Level 4.1 gm/dl (3.4-5.0); Alkaline Phosphatase 80 U/L (34-104); Anion Gap 3 (3-11); BUN Creatinine Ratio 18.7 (10-20); Bilirubin,Total 0.8 mg/dl (0.2-1.0); Blood Urea Nitrogen 29 mg/dl (6-23); Calcium 9.6 mg/dl (8.6-10.3); Carbon Dioxide 32 mmol/L (21-32); Chloride 103 mmol/L (98-107); Creatinine Clr Calc Pharmacy 23.3 ml/min; Est GFR (African American) 34.8 ml/min; Globulin 3.7 gm/dl (2.5-4.0); Glucose 113 mg/dl (70-99(Fasting)); Lipase 73 U/L (11-82); Sodium 138 mmol/L (136-145); Total Protein 7.8 gm/dl (6.0-8.3); Troponin I High Sensitivity 15.7 pg/ml (0-14)
--- NOTE | 2023-01-29 18:30 | XRay Report ---
XR chest 1V portable CLINICAL HISTORY: Shortness of breath. COMPARISON STUDY: Chest radiograph September 02, 2021. FINDINGS: Left subclavian pacer, median sternotomy wires and mediastinal surgical clips are noted. Th ere is no pneumothorax or pleural effusion. No consolidation is present. Cardiomegaly is unchanged. T here is pulmonary vascular congestion without overt pulmonary edema. IMPRESSION: Cardiomegaly. Pulmonary vascular congestion without overt pulmonary edema. ACT 112: Negative or not required by law. Electronically signed by: Ishmael Chaudhary M.D. 01/29/2023 6:29 PM
--- NOTE | 2023-01-29 19:00 | CT Scan Report ---
CT OF THE ABDOMEN AND PELVIS WITHOUT CONTRAST CLINICAL HISTORY: Flank pain. COMPARISON STUDY: KUB August 02, 2013 and right upper cord ultrasound June 28, 2007. TECHNIQUE: Axial images of the abdomen and pelvis were obtained without IV contrast. Images were revi ewed in the axial, sagittal, and coronal planes. Automated exposure control was utilized for the audelia dy. A dose lowering technique was utilized adhering to the principles of ALARA. FINDINGS: Pacer leads are partially imaged. There is cardiomegaly. No pneumatosis, free air or portal venous gas is present. There is a 5 mm calculus within lower pole of the left kidney. There are no u reteral calculi. No hydronephrosis. Moderate multifocal scarring of the kidneys is noted. 1.5 cm hype rdense right renal lesion on axial image 201 of 471 is suboptimally assessed on this unenhanced exam but may reflect a hyperdense cyst. Unenhanced images of the liver, spleen, adrenal glands and pancrea s are unremarkable. There is no biliary or pancreatic ductal dilatation. There is no evidence for a b owel obstruction. The appendix is normal. Colonic diverticulosis is noted. There is wall thickening o f the proximal to mid sigmoid colon with mild adjacent stranding. There is no free air or abscess. Th e findings favor acute diverticulitis. No additional sites of abnormal thickening identified on this unenhanced examination. No acute fracture or suspicious lesion is identified within visualized skelet al structures. IMPRESSION: 1. Colonic diverticulosis. Wall thickening of the proximal to mid sigmoid colon with mild associated inflammation. The findings favor acute diverticulitis. A nonspecific colitis could appear similar. No free air or abscess. 2. 5 mm left renal calculus. No ureteral calculi or hydronephrosis. ACT 112: Negative or not required by law. Electronically signed by: Ishmael Chaudhary M.D. 01/29/2023 6:58 PM
[2023-01-29 19:04] LABS: Appearance Urine Cloudy (Clear); Bilirubin Urine Negative (Negative); Blood Urine Trace-lysed (Negative); Color Urine Yellow; Glucose Urine UA Negative (Negative); Ketones Urine Trace (Negative); Leukocyte Esterase Urine 3+ (Negative); Nitrite Urine Negative (Negative); Protein Urine 1+ (Negative); Specific Gravity Urine 1.015 (1.000-1.030); Urobilinogen Urine Negative (Negative); pH Urine 5.5 (4.5-7.5)
[2023-01-29 19:10] LABS: Epithelial Cell Urine >30 /lpf (0-5)
[2023-01-29] MEDS ORDERED: PIPERACILLIN/TAZOBACTAM 4.5 GM/120 ML BAG IV ONE (19:10)
[2023-01-29] MEDS ORDERED: FLUCONAZOLE 50 MG TAB PO ONE (19:10)
[2023-01-29 19:11] LABS: Bacteria Urine 4+ (Negative)
[2023-01-29 19:12] LABS: WBC Urine >30 /hpf (0-5)
[2023-01-29] MEDS ORDERED: ERTAPENEM SODIUM 10 ML IV STA (19:17)
[2023-01-29 19:42] LABS: Magnesium 1.9 mg/dl (1.7-2.4)
[2023-01-29 19:57] LABS: Estimated Average Glucose 123 mg/dl; Hemoglobin A1C 5.9 % (4.5-5.6)
[2023-01-29] MEDS ORDERED: WARFARIN SOD 2.5 MG TAB PO STA (20:11)
--- NOTE | 2023-01-29 20:18 | History & Physical Report ---
Date of Service January 29, 2023 Assessment & Plan (1) Complicated UTI (urinary tract infection): Plan: Complicated UTI (ESBL E. coli UTI on outpatient urine CS) History recurrent UTIs on chronic Macrodantin suppression Rx, urge incontinence as per records no sepsis for now Diverticulitis on CT, patient nontoxic ARF on CKD secondary to illness, home medications and recent Bactrim Rx contributory Asymptomatic troponin elevation in the setting of kidney dysfunction chronic diastolic heart failure, equivocal volume status given congestion on CXR with kidney dysfunction SSS sp PPM on Coumadin, rate controlled A-fib currently INR slightly subtherapeutic hx CAD sp CABG/stenting/hx PVD history of bovine AVR, valvular heart disease (moderate MR/TR), pulmonary hypertension HTN, stable hyperlipidemia on statin Rx pulmonary hypertension, mild GAVIN (CPAP intolerance as per records), chronic SOB symptoms as per patient DM2 diet-controlled, hemoglobin A1c today 5.8 essential thrombocythemia on Hydrea Rx Restless leg syndrome, patient with home prescription of ropinirole which she prefers to hold for now Medical telemetry given abnormal troponin Follow repeat urine CS Ertapenem for complicated UTI and diverticulitis Clear liquids for now, GI consult Re: Diverticulitis ID consult Re: Recurrent ESBL E. coli UTI Follow troponin, TTE if with progression Monitor creatinine response to IVF (albumin preferred over crystalloid given congestion and CXR), stop Bactrim, hold home diuretic and spironolactone until creatinine back to baseline ISS BG goal 1 10-1 40, carb count coverage DVT prophylaxis. Coumadin INR goal between 2 and 3 Full code Patient son requesting updates providers. Mr. Castillo Nancy, contact #[phone]. Text document was generated using [employer] voice recognition software. It may contain grammatical or spelling errors. Kindly contact undersigned for clarification of any documentation item in question. History of Present Illness Chief Complaint: UTI Primary Care Provider: Yaya Frederick MD History obtained from patient, family, and records. Medical history significant for chronic diastolic heart failure (EF 55 to 60%, TTE 2020), SSS sp PPM on Coumadin, CAD sp CABG/stenting, hx PVD, history of bovine AVR, valvular heart disease (moderate MR/TR), pulmonary hypertension HTN, hyperlipidemia, mild GAVIN (CPAP intolerance as per records), DM2 diet- controlled, CRI (baseline creatinine 1.1), history urge incontinence, recurrent UTIs on chronic Macrodantin suppression Rx, essential thrombocythemia as per records, GERD, history of colonic diverticulosis/polyps, restless leg syndrome. Last confinement August 2021 for esophagitis. Carafate added to patient's PPI. 2 weeks ago, patient noted dysuria, chills and bloating symptoms. Outpatient UA showed possible infection. Patient told to increase daily prophylactic Macrobid 200 mg twice daily for 1 week. Final urine CS resulted 4 days ago. ESBL E. coli resistant to Macrobid, Unasyn, ceftriaxone, quinolones. Patient instructed by outpatient provider to start Bactrim and call office if wi th symptoms. Patient later noted some pelvic discomfort with nausea. Restless legs acting up as per patient. No chest pain. Usual shortness of breath. Denies diarrhea/black/bloody stools. No fever, no chills. Patient brought to ER by family for evaluation. MEDICAL HISTORY: As above. 2012 colonoscopy showed sigmoid polyp, diverticulosis from descending colon to sigmoid, melanosis SURGICAL HISTORY: History of coronary artery bypass graft, Total abdominal hysterectomy, bilateral salpingo-oophorectomy, bladder/urethra surgery, PPM for sinus node dysfunction, knee surgery, BTL, bioprosthetic AVR FAMILY HISTORY: Hypertension. Diabetes. Stroke. PERSONAL/ SOCIAL HISTORY: Nonsmoker. No chronic intake of alcoholic beverage. She is a retired [employer] employee. Allergies Allergy/AdvReac Type Severity Reaction Status Date / Time iodine Allergy Intermediate itching Verified 01/29/23 19:52 amiodarone Allergy Mild UNSURE Verified 01/29/23 19:52 etodolac Allergy Mild Unknown Verified 01/29/23 19:52 Sulfa (Sulfonamide Allergy Mild Unknown Verified 01/29/23 19:52 Antibiotics) gabapentin AdvReac Mild sedation Verified 01/29/23 19:52 Penicillins AdvReac Mild YEAST INF Verified 01/29/23 19:52 simvastatin AdvReac Unknown CAN'T Verified 01/29/23 19:52 REMEMBER Home Medications Medication Instructions Recorded Confirmed Type Azelastine [place] 1 spray intranasal BID PRN Nasal 01/29/23 01/29/23 History Congestion aspirin 81 mg chewable tablet 81 mg PO DAILY 01/29/23 01/29/23 History calcium carbonate 600 mg-vitamin 1 tab PO DAILY 01/29/23 01/29/23 History D3 20 mcg (800 unit) tablet (Caltrate with Vitamin D3) camphor-menthol 0.2 %-3.5 % 1 applic topical BID PRN Pain 01/29/23 01/29/23 History topical gel clindamycin HCl 300 mg capsule 600 mg PO DIRECTED 01/29/23 01/29/23 History diphenhydramine HCl 25 mg tablet 25 mg PO Q4 PRN allergies 01/29/23 01/29/23 History (Benadryl Allergy) fexofenadine 180 mg tablet 180 mg PO DAILY PRN allergies 01/29/23 01/29/23 History (Lizzette Allergy) hydroxyurea 500 mg capsule 500 mg PO DAILY 01/29/23 01/29/23 History ipratropium bromide 21 mcg (0.03 2 spray intranasal BID PRN 01/29/23 01/29/23 History %) nasal spray .rhinitis lorazepam 0.5 mg tablet 0.5 mg PO Q8 PRN Anxiety 01/29/23 01/29/23 History magnesium oxide 400 mg PO DAILY 01/29/23 01/29/23 History metoprolol succinate 100 mg 150 mg PO AMHS 01/29/23 01/29/23 History tablet,extended release 24 hr mometasone 50 mcg/actuation nasal 2 spray intranasal QAM 01/29/23 01/29/23 History spray nitrofurantoin macrocrystal 100 mg 100 mg PO HS 01/29/23 01/29/23 History capsule nitroglycerin 0.4 mg sublingual 0.4 mg sublingual DIRECTED PRN 01/29/23 01/29/23 History tablet (Nitrostat) Chest Pain pantoprazole 40 mg tablet,delayed 40 mg PO QAM 01/29/23 01/29/23 History release rosuvastatin 10 mg tablet 10 mg PO QPM 01/29/23 01/29/23 History spironolactone 25 mg tablet 12.5 mg PO MOWEFR 01/29/23 01/29/23 History torsemide 20 mg tablet 20 mg PO QAM 01/29/23 01/29/23 History warfarin 2.5 mg tablet 1.25 mg PO .6DAYWEEK 01/29/23 01/29/23 History Past Med/Surg History Medical History Anemia ASCVD (arteriosclerotic cardiovascular disease) 2006 - CABG x 3, bioproesthetic aortic valve replacement 2007 - PCI and stenting to SVG to RCA occlusion Atrial fibrillation, persistent Cardiac pacemaker in situ Carotid artery occlusion (Unknown) Chronic diastolic CHF (congestive heart failure) CKD (chronic kidney disease) stage 2, GFR 60-89 ml/min CKD (chronic kidney disease), stage III 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 use of exterminator termite 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 Dermatitis Essential thrombocythemia Generalized weakness HLD (hyperlipidemia) HTN (hypertension) Replacement of aortic valve (Unknown) [place] [place] [facility] " Sensorineural hearing loss of both ears Sinus node dysfunction 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 UTI due to extended-spectrum beta lactamase (ESBL) producing Escherichia coli Surgical History Coronary artery bypass grafting (Unknown) [place] [place] VARGHESE to LAD SVG's to diagonal, obtuse marginal, RCA " History of colonoscopy with polypectomy History of cystoscopy History of tubal ligation Implantation of aortic valve prosthesis or synthetic device (Unknown) Placement of stent in coronary artery (Unknown) "RCA December 2006 " Status post transcatheter aortic valve replacement (TAVR) using bioprosthesis Stented coronary artery (Unknown) Total abdominal hysterectomy with bilateral salpingo-oophorectomy (Unknown) Family History Father Prostate cancer Mother Diabetes Sister Coronary heart disease Social History Smoking Status: Never smoker Second Hand Exposure: No; Hx Alcohol Use: No Hx Substance Use: No Preferred Language: Wallisian Communication Ability: Effective Visual Impairment: No Limitations Hearing Ability: Normal 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 Beliefs That Will Affect Care: None marital status: / Current Living Situation: Alone Feels Safe at Home: Yes Safety Concerns: Feels Safe At This Time Assistive Devices: Glasses, Hearing Aid - Bilateral and Oxygen - at Night Review of Systems Review of Systems: As per HPI, all other systems reviewed and negative Physical Exam Physical Exam: GENERAL: Pleasant, slightly anxious, obese, no respiratory distress SKIN: Normal color, warm HEENT: Bespectacled, pink palpebral conjunctivae, no ptosis, dry buccal mucosa NECK : Supple, short neck, no tenderness CHEST : Decreased breath sounds, no tenderness HEART : Irregular, systolic murmur ABDOMEN: Some distention, no overt tenderness EXTREMITIES : Minimal bilateral LE swelling, no LE tenderness, no other conspicuous deformities noted NEUROLOGIC : Coherent, no facial asymmetry, no other gross focality Results & Data Results & Data Vital Signs (Past 12 Hours) Vital Signs Temp Pulse Pulse Resp BP BP Pulse Ox 01/29/23 19:08 76 16 139/81 98 01/29/23 17:18 01/29/23 17:06 36.8 C 81 18 144/90 H 95 O2 Del Method 01/29/23 19:08 Room Air 01/29/23 17:18 Room Air 01/29/23 17:06 Room Air Laboratory Results Laboratory Results WBC 7.80 K/ul (4.8-10.8) 01/29/23 17: RBC 3.38 M/uL (4.20-5.40) L 01/29/23 17: Hgb 12.0 g/dl (12.0-16.0) 01/29/23 17: Hct 37.2 % (37.0-47.0) 01/29/23 17: MCV 110.1 fL (80.0-100.0) H 01/29/23 17: MCH 35.5 pg (25.0-34.0) H 01/29/23 17: MCHC 32.3 g/dL (32.0-36.0) 01/29/23 17: RDW Std Deviation 58.5 fL (36.4-46.3) H 01/29/23 17:29 RDW Coeff of Ge 14.4 % (11.5-14.5) 01/29/23: Plt Count 337 K/uL (130-400) 01/29/23: MPV 11.1 fL (9.4-12.4) 01/29/23 17: Immature Gran % (Auto) 0.3 % 01/29/23: Neut % (Auto) 72.0 % 01/29/23: Lymph % (Auto) 11.4 % 01/29/23:29 [place] % (Auto) 11.3 % 01/29/23 17:29 Eos % (Auto) 4.1 % 01/29/23 17: Baso % (Auto) 0.9 % 01/29/23 17: Neut # (Auto) 5.62 K/uL (1.40-6.50) 01/29/23 17: Lymph # (Auto) 0.89 K/uL (1.2-3.4) L 01/29/23 17: [place] # (Auto) 0.88 K/uL (0.11-0.59) H 01/29/23 17: Eos # (Auto) 0.32 K/uL (0-0.50) 01/29/23: Baso # (Auto) 0.07 K/uL (0-0.2) 01/29/23: Immature Gran # (Auto) 0.02 K/uL (0.01-0.20) 01/29/23 17: RBC Morphology Unremarkable 01/29/23 17: PT 18.2 Seconds (9.0-12.0) H 01/29/23 17: INR 1.8 (0.9-1.1) H 01/29/23 17: APTT 32.4 Seconds (21.0-31.0) H 01/29/23: PTT Ratio 1.2 01/29/23 17:29 Sodium 138 mmol/L (136-145) 01/29/23 17:29 Potassium TNP 01/29/23 17: Chloride 103 mmol/L (98-107) 01/29/23 17: Carbon Dioxide 32 mmol/L (21-32) 01/29/23 17:29 Anion Gap 3 (3-11) 01/29/23 17:29 BUN 29 mg/dl (6-23) H 01/29/23 17: Creatinine 1.55 mg/dl (0.6-1.2) H 01/29/23 17: Est Cr Clr Drug Dosing 23.3 ml/min 01/29/23 17:29 Est GFR ( Amer) 34.8 ml/min 01/29/23 17:29 Est GFR (Non-Af Amer) 30.0 ml/min 01/29/23 17:29 BUN/Creatinine Ratio 18.7 (10-20) 01/29/23 17:29 Glucose 113 mg/dl (70-99(Fasting)) H 01/29/23 17:29 Estimat Average Glucose 123 mg/dl 01/29/23 19:41 Hemoglobin A1c 5.9 % (4.5-5.6) H 01/29/23 19:41 Calcium 9.6 mg/dl (8.6-10.3) 01/29/23 17:29 Magnesium 1.9 mg/dl (1.7-2.4) 01/29/23 17:29 Total Bilirubin 0.8 mg/dl (0.2-1.0) 01/29/23 17:29 AST TNP 01/29/23 17:29 ALT 15 U/L (7-52) 01/29/23 17:29 Alkaline Phosphatase 80 U/L (34-104) 01/29/23 17:29 Troponin I High Sens 15.7 pg/ml (0-14) H 01/29/23 17:29 Total Protein 7.8 gm/dl (6.0-8.3) 01/29/23 17:29 Albumin 4.1 gm/dl (3.4-5.0) 01/29/23 17:29 Globulin 3.7 gm/dl (2.5-4.0) 01/29/23 17:29 Albumin/Globulin Ratio 1.1 (0.9-2) 01/29/23 17:29 Lipase 73 U/L (11-82) 01/29/23 17:29 Urine Color Yellow 01/29/23 18:26 Urine Appearance Cloudy (Clear) A 01/29/23 18:26 Urine pH 5.5 (4.5-7.5) 01/29/23 18:26 Ur Specific [place] 1.015 (1.000-1.030) 01/29/23 18:26 Urine Protein 1+ (Negative) H 01/29/23 18:26 Urine Glucose (UA) Negative (Negative) 01/29/23 18:26 Urine Ketones Trace (Negative) H 01/29/23 18:26 Urine Blood Trace-lysed (Negative) H 01/29/23 18:26 Urine Nitrite Negative (Negative) 01/29/23 18:26 Urine Bilirubin Negative (Negative) 01/29/23 18:26 Urine Urobilinogen Negative (Negative) 01/29/23 18:26 Ur Leukocyte Esterase 3+ (Negative) H 01/29/23 18:26 Urine RBC 5-10 /hpf (0-4) H 01/29/23 18:26 Urine WBC >30 /hpf (0-5) H 01/29/23 18:26 Ur Epithelial Cells >30 /lpf (0-5) H 01/29/23 18:26 Urine Bacteria 4+ (Negative) H 01/29/23 18:26 SARS-CoV-2, RNA, NAAT NEGATIVE (NEGATIVE) 01/29/23 17:29 Impressions Chest X-Ray 01/29/23 17:18 XR chest 1V portable CLINICAL HISTORY: Shortness of breath. COMPARISON STUDY: Chest radiograph September 02, 2021. FINDINGS: Left subclavian pacer, median sternotomy wires and mediastinal surgical clips are noted. There is no pneumothorax or pleural effusion. No consolidation is present. Cardiomegaly is unchanged. There is pulmonary vascular congestion without overt pulmonary edema. IMPRESSION: Cardiomegaly. Pulmonary vascular congestion without overt pulmonary edema. ACT 112: Negative or not required by law. Electronically signed by: Ishmael Chaudhary M.D. 01/29/2023 6:29 PM Abdomen/Pelvis CT 01/29/23 17:30 CT OF THE ABDOMEN AND PELVIS WITHOUT CONTRAST CLINICAL HISTORY: Flank pain. COMPARISON STUDY: KUB August 02, 2013 and right upper cord ultrasound June 28, 2007. TECHNIQUE: Axial images of the abdomen and pelvis were obtained without IV contrast. Images were reviewed in the axial, sagittal, and coronal planes. Automated exposure control was utilized for the study. A dose lowering technique was utilized adhering to the principles of ALARA. FINDINGS: Pacer leads are partially imaged. There is cardiomegaly. No pneumatosis, free air or portal venous gas is present. There is a 5 mm calculus within lower pole of the left kidney. There are no ureteral calculi. No hydronephrosis. Moderate multifocal scarring of the kidneys is noted. 1.5 cm hyperdense right renal lesion on axial image 201 of 471 is suboptimally assessed on this unenhanced exam but may reflect a hyperdense cyst. Unenhanced images of the liver, spleen, adrenal glands and pancreas are unremarkable. There is no biliary or pancreatic ductal dilatation. There is no evidence for a bowel obstruction. The appendix is normal. Colonic diverticulosis is noted. There is wall thickening of the proximal to mid sigmoid colon with mild adjacent stranding. There is no free air or abscess. The findings favor acute diverticulitis. No additional sites of abnormal thickening identified on this unenhanced examination. No acute fracture or suspicious lesion is identified within visualized skeletal structures. IMPRESSION: 1. Colonic diverticulosis. Wall thickening of the proximal to mid sigmoid colon with mild associated inflammation. The findings favor acute diverticulitis. A nonspecific colitis could appear similar. No free air or abscess. 2. 5 mm left renal calculus. No ureteral calculi or hydronephrosis. ACT 112: Negative or not required by law. Electronically signed by: Ishmael Chaudhary M.D. 01/29/2023 6:58 PM Diagnostic Findings EKG as per my interpretation : Rate 80, A-fib normal axis, RBBB, T wave abnormalities inferior and anterolateral leads
[2023-01-29 21:07] LABS: Potassium 4.1 mmol/L (3.5-5.1)
[2023-01-29] MEDS ORDERED: LORazepam 0.5 MG TAB PO STA (21:08)
[2023-01-29 21:13] LABS: Troponin I High Sensitivity 17.2 pg/ml (0-14)
[2023-01-29] MEDS ORDERED: ERTAPENEM SODIUM 1,000 MG in SYRINGE 0 ML IV SCH (22:00)
[2023-01-29] MEDS ORDERED: ERTAPENEM SODIUM 500 MG in SYRINGE 0 ML IV SCH (22:00)
[2023-01-29] MEDS ORDERED: GLUCOSE 40% GEL 15 GM TUBE PO PRN (22:02)
[2023-01-29] MEDS ORDERED: GLUCOSE 10 TAB/TUBE PO PRN (22:02)
[2023-01-29] MEDS ORDERED: GLUCAGON FOR INJ 1 MG VIAL SQ PRN (22:02)
[2023-01-29] MEDS ORDERED: DEXTROSE 50% 50 ML SYRINGE IV PRN (22:02)
[2023-01-29] MEDS ORDERED: PROMETHAZINE HCL 12.5 MG in SODIUM CHLORIDE 0.9% 50 ML IV PRN (22:02)
[2023-01-29] MEDS ORDERED: traMADol HCL 50 MG TABLET PO PRN (22:02)
[2023-01-29] MEDS ORDERED: CARBOHYDRATES FOR HYPOGLYCEMIA PO PRN (22:02)
[2023-01-29] MEDS ORDERED: AZELASTINE HCL 0.1% NASAL 200 SPRAYS/27,400 MCG BTL PRN (22:15)
[2023-01-29] MEDS: ROSUVASTATIN CALCIUM 10 MG TAB PO SCH (22:53)
[2023-01-29] MEDS: METOPROLOL SUCC 50MG EXT REL TAB PO SCH (22:53)
[2023-01-29] MEDS: ALBUMIN 25% 100 mL 25 GM/100 ML VIAL IV SCH (22:54)
[2023-01-29] MEDS: INSULIN ASPART PER UNIT CHARGE SC SCH (22:54)
[2023-01-30] MEDS: ALBUMIN 25% 100 mL 25 GM/100 ML VIAL IV SCH ×2 (05:34→14:57)
[2023-01-30 06:28] LABS: Basophils # (auto) 0.07 K/uL (0-0.2); Eosinophils # (auto) 0.26 K/uL (0-0.50); Eosinophils % (auto) 3.7 %; Hematocrit (blood only) 37.3 % (37.0-47.0); Hemoglobin 11.8 g/dl (12.0-16.0); Immature Granulocytes # (auto) 0.03 K/uL (0.01-0.20); Immature Granulocytes % (auto) 0.4 %; Lymphocytes % (auto) 11.5 %; Mean Corpuscular Hemoglobin 34.9 pg (25.0-34.0); Mean Corpuscular Hgb Conc 31.6 g/dL (32.0-36.0); Mean Corpuscular Volume 110.4 fL (80.0-100.0); Mean Platelet Volume 11.1 fL (9.4-12.4); Monocytes # (auto) 0.76 K/uL (0.11-0.59); Monocytes % (auto) 10.9 %; Neutrophils # (auto) 5.05 K/uL (1.40-6.50); Neutrophils % (auto) 72.5 %; Platelet Count 290 K/uL (130-400); RDW Coefficient of Variation 14.2 % (11.5-14.5); Red Blood Count 3.38 M/uL (4.20-5.40); White Blood Count 6.97 K/ul (4.8-10.8)
[2023-01-30 06:42] LABS: BUN Creatinine Ratio 23.4 (10-20); Calcium 9.4 mg/dl (8.6-10.3); Creatinine Clr Calc Pharmacy 32.6 ml/min; Est GFR (African American) 52.1 ml/min; Est GFR (Non-African American) 44.9 ml/min
[2023-01-30 07:01] LABS: INR 1.8 (0.9-1.1); Prothrombin Time 18.4 Seconds (9.0-12.0)
[2023-01-30] MEDS: PANTOprazole 40 MG TAB PO SCH (08:25)
[2023-01-30] MEDS: FLUTICASONE PROPIONATE NA SPR 16 GM BTL SCH (08:25)
[2023-01-30] MEDS: ASPIRIN 81 MG ECTAB PO SCH (08:26)
[2023-01-30] MEDS: METOPROLOL SUCC 50MG EXT REL TAB PO SCH ×2 (08:26→20:40)
[2023-01-30] MEDS: INSULIN ASPART PER UNIT CHARGE SC SCH ×4 (08:27→20:40)
[2023-01-30] MEDS: HYDROXYUREA 500 MG CAP PO SCH (08:27)
[2023-01-30] MEDS: MAGNESIUM OXIDE 400 MG TAB PO SCH (08:27)
--- NOTE | 2023-01-30 12:00 | Gastrointestinal Consultation ---
Date of Consultation January 30, 2023 Assessment & Plan (1) Abnormal CT of the abdomen: A non contrast CT is suggestive of mild acute uncomplicated diverticulitis. Pt does not have clinic symptoms of diverticulitis and does not wish to undergo colonoscopy. We did have a discussion regarding our recommendation for f/u OP colonoscopy to r/o dx orther than diverticulitis such as colon cancer, ischemic colitis and other bowel disorders. Per patient preference, will defer follow-up colonoscopy. If patient changes her mind we will be happy to provide the service for her. Optimal timing would be 6-8 after hospitalization. Supervising Physician Co-Signing Physician Notes Consult for diverticulitis. PE as documented, benign abdomen. She is not wanting to undergo a colonoscopy which I think is reasonable given her age. Agree with further plan of care as documented. History of Present Illness Reason for Consultation: Diverticulitis Requesting Physician: Dr. Hair Attending Physician: Paresh Hair MD History of Present Illness Ms. Shannon Cruz is an 87 yr old female pt w a hx of CAD S/P CABG and stenting, CHF, SSS w pacer on warfarin, PVD, Aortic valve replacement (bovine), Pulm HTN, GAVIN, DM-2, CKD, GERD and recurrent UTIs. She presented yesterday for weakness which she recognized as a symptom of UTI. She is being tx of UTI and CT done on arrival also suggested mild acute diverticulitis. However, the pt denies having had any abdominal pain, diarrhea, constipation or blood in BMs. She also denies recent N/V. She has had mild dysphagia but has had this for years and it is unchanged. Her most recent colonoscopy was 2012. She does not want to undergo another colonoscopy due to age. She tells me that if colon cancer were found, it is unlikely that she would decide to undergo surgery or chemo. She tells me that she is spoken with her children about undergoing colonoscopy and they agree with her decision not to undergo colonoscopy again. Allergies Allergy/AdvReac Type Severity Reaction Status Date / Time iodine Allergy Intermediate itching Verified 01/29/23 19:52 amiodarone Allergy Mild UNSURE Verified 01/29/23 19:52 etodolac Allergy Mild Unknown Verified 01/29/23 19:52 Sulfa (Sulfonamide Allergy Mild Unknown Verified 01/29/23 19:52 Antibiotics) gabapentin AdvReac Mild sedation Verified 01/29/23 19:52 Penicillins AdvReac Mild YEAST INF Verified 01/29/23 19:52 simvastatin AdvReac Unknown CAN'T Verified 01/29/23 19:52 REMEMBER Home Medications Medication Instructions Recorded Confirmed Type Azelastine [place] 1 spray intranasal BID PRN Nasal 01/29/23 01/29/23 History Congestion aspirin 81 mg chewable tablet 81 mg PO DAILY 01/29/23 01/29/23 History calcium carbonate 600 mg-vitamin 1 tab PO DAILY 01/29/23 01/29/23 History D3 20 mcg (800 unit) tablet (Caltrate with Vitamin D3) camphor-menthol 0.2 %-3.5 % 1 applic topical BID PRN Pain 01/29/23 01/29/23 History topical gel clindamycin HCl 300 mg capsule 600 mg PO DIRECTED 01/29/23 01/29/23 History diphenhydramine HCl 25 mg tablet 25 mg PO Q4 PRN allergies 01/29/23 01/29/23 History (Benadryl Allergy) fexofenadine 180 mg tablet 180 mg PO DAILY PRN allergies 01/29/23 01/29/23 History (Lizzette Allergy) hydroxyurea 500 mg capsule 500 mg PO DAILY 01/29/23 01/29/23 History ipratropium bromide 21 mcg (0.03 2 spray intranasal BID PRN 01/29/23 01/29/23 History %) nasal spray .rhinitis lorazepam 0.5 mg tablet 0.5 mg PO Q8 PRN Anxiety 01/29/23 01/29/23 History magnesium oxide 400 mg PO DAILY 01/29/23 01/29/23 History metoprolol succinate 100 mg 150 mg PO AMHS 01/29/23 01/29/23 History tablet,extended release 24 hr mometasone 50 mcg/actuation nasal 2 spray intranasal QAM 01/29/23 01/29/23 History spray nitrofurantoin macrocrystal 100 mg 100 mg PO HS 01/29/23 01/29/23 History capsule nitroglycerin 0.4 mg sublingual 0.4 mg sublingual DIRECTED PRN 01/29/23 01/29/23 History tablet (Nitrostat) Chest Pain pantoprazole 40 mg tablet,delayed 40 mg PO QAM 01/29/23 01/29/23 History release rosuvastatin 10 mg tablet 10 mg PO QPM 01/29/23 01/29/23 History spironolactone 25 mg tablet 12.5 mg PO MOWEFR 01/29/23 01/29/23 History torsemide 20 mg tablet 20 mg PO QAM 01/29/23 01/29/23 History warfarin 2.5 mg tablet 1.25 mg PO .6DAYWEEK 01/29/23 01/29/23 History Patient History Medical History Anemia ASCVD (arteriosclerotic cardiovascular disease) 2006 - CABG x 3, bioproesthetic aortic valve replacement 2007 - PCI and stenting to SVG to RCA occlusion Atrial fibrillation, persistent Cardiac pacemaker in situ Carotid artery occlusion (Unknown) Chronic diastolic CHF (congestive heart failure) CKD (chronic kidney disease) stage 2, GFR 60-89 ml/min CKD (chronic kidney disease), stage III 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 Dermatitis Essential thrombocythemia Generalized weakness HLD (hyperlipidemia) HTN (hypertension) Replacement of aortic valve (Unknown) "[facility] – [place] 2005 [facility] " Sensorineural hearing loss of both ears Sinus node dysfunction 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 UTI due to extended-spectrum beta lactamase (ESBL) producing Escherichia coli Surgical History Coronary artery bypass grafting (Unknown) "[facility] [place] April 2006 VARGHESE to LAD SVG's to diagonal, obtuse marginal, RCA " History of colonoscopy with polypectomy History of cystoscopy History of tubal ligation Implantation of aortic valve prosthesis or synthetic device (Unknown) Placement of stent in coronary artery (Unknown) "[facility] December 2006 " Status post transcatheter aortic valve replacement (TAVR) using bioprosthesis Stented coronary artery (Unknown) Total abdominal hysterectomy with bilateral salpingo-oophorectomy (Unknown) Family History Father Prostate cancer Mother Diabetes Sister Coronary heart disease Social History Smoking Status: Never smoker Second Hand Exposure: No; Hx Alcohol Use: No Hx Substance Use: No Preferred Language: Kiswahili Communication Ability: Effective Visual Impairment: No Limitations Hearing Ability: Normal Houseperson Required: No Beliefs That Will Affect Care: None marital status: / Current Living Situation: Alone Feels Safe at Home: Yes Safety Concerns: Feels Safe At This Time Assistive Devices: Glasses, Hearing Aid - Bilateral and Oxygen - at Night Review of Systems Review of Systems: ROS: Gen: +weakness, No fevers, No weight loss Eyes: No eye redness, or pain, no recent vision changes Nose: +congestion Resp: No SOB, no cough Cardio: No palpitations/irregular beats, no chest pain GI: No abdominal pain, no nausea/vomiting : Denies pain on urination Skin: No jaundice, itching or new rashes Ext: No edema Hem: No excessive bleeding/bruising Physical Exam Constitutional: WD/WN, vitals as above Eyes: PERRL, conjunctivae normal, anicteric sclerae ENMT: external ear and nose normal, oropharynx normal Neck: trachea midline, no thyromegaly Respiratory: normal respiratory effort, lungs clear to auscultation Cardiovascular: 2/6 systolic murmur; normal rate and rythm Gastrointestinal (Abdomen): normal bowel sounds, soft, nontender, no hepatosplenomegaly Musculoskeletal: no cyanosis or clubbing, extremities motor strength 5/5 Skin: no rashes, warm and dry Neurologic: PERRL, EOMI, accommodation nl, no face palsy, no dysarthria Psychiatric: A+Ox3, euthymic affect Lymphatic: no cervical or axillary lymphadenopathy Results & Data Vital Signs (Past 12 Hours) Vital Signs Temp Pulse Resp BP Pulse Ox O2 Del Method O2 Flow Rate 01/30/23 11:17 36.4 C L 75 18 138/57 L 99 Room Air 01/30/23 07:15 36.4 C L 77 18 106/68 95 Nasal Cannula 2 01/30/23 03:32 36.5 C 74 16 120/71 100 Nasal Cannula 2 Laboratory Results WBC 6.9, Hb 11.8, HCT 37.3, PLT S2 90, PT 11.4, INR 1.8, NA 142, K4.2, CL 104, CO2 31, BUN 26, CR 1.1, glucose 120 Diagnostic Findings Non contrast CTAP 01/29/23: 1. Colonic diverticulosis. Wall thickening of the proximal to mid sigmoid colon with mild associated inflammation. The findings favor acute diverticulitis. A nonspecific colitis could appear similar. No free air or abscess. 2. 5 mm left renal calculus. No ureteral calculi or hydronephrosis.
[2023-01-30] MEDS: ERTAPENEM SODIUM 1,000 MG in SYRINGE 0 ML IV SCH (14:57)
[2023-01-30] MEDS ORDERED: WARFARIN SOD 2.5 MG TAB PO SCH (16:00)
--- NOTE | 2023-01-30 16:09 | Hospitalist Progress Note ---
Date of Service January 30, 2023 Assessment & Plan (1) Complicated UTI (urinary tract infection): (2) Diverticulitis: Plan UTI-history of ESBL E. coli UTI in the past. 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 Patient is nonseptic. Continue empiric ertapenem pending urine culture . Urine culture growing gram-negative bacilli. ID evaluation pending. Results CT abdomen pelvis 1. Colonic diverticulosis. Wall thickening of the proximal to mid sigmoid colon with mild associated inflammation. The findings favor acute diverticulitis. A nonspecific colitis could appear similar. No free air or abscess. 2. 5 mm left renal calculus. No ureteral calculi or hydronephrosis. Abnormal CT scan-CT shows mild acute uncomplicated diverticulitis but clinically does not have corresponding symptoms. Patient does not want colonoscopy per GI. Seen by GI. Outpatient colonoscopy in 6 weeks with GI if patient prefers. RADHA-resolved. Creatinine back to baseline of 1.1, 1.55 on admission. We will stop albumin. Elevated troponin-troponin trend flat. No need for further trending. No chest pain. Chronic diastolic CHF- volume stable. Daily weight, Iand O. Not on diuretics. Atrial fibrillation-rate controlled on Toprol, INR subtherapeutic on Coumadin- INR 1.8. 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 Will check B12 level for c ompleteness. History of CAD status post CABG/stenting History of PVD History of bovine AVR, valvular disease, pulm hypertension Prediabetes-A1c 5.9. Blood sugar controlled. On SSI DVT prophylaxis-continue Coumadin, will give additional 2.5 mg today Disposition-pending final urine culture results. ID evaluation pending. Admission and Anticipated Discharge Date Admission Date: January 29, 2023 Subjective Patient was seen and examined at bedside. Awake alert and answering questions appropriately. No fever, chills, chest pain or shortness of breath, nausea or vomiting. Review of Systems Review of Systems: All systems reviewed & are unremarkable except as noted in Subjective Physical Exam Physical Exam: General: Sitting comfortably in bed, not in distress, on room air Chest: Clear breath sounds bilaterally, no wheezes or crackles CVS: Irregular, normal heart sounds Abdomen: Soft, non tender, normal bowel sounds Neuro: Awake, alert, oriented, conversing well, non focal Extremities: No cyanosis, clubbing, minimal lower extremity edema Results & Data Results & Data Vital Signs (Past 12 Hours) Vital Signs Temp Pulse Resp BP Pulse Ox O2 Del Method O2 Flow Rate 01/30/23 11:17 36.4 C L 75 18 138/57 L 99 Room Air 01/30/23 07:15 36.4 C L 77 18 106/68 95 Nasal Cannula 2 01/30/23 03:32 36.5 C 74 16 120/71 100 Nasal Cannula 2 Laboratory Results Short CBC 01/29/23 01/30/23 Range/Units 17:29 05:33 WBC 7.80 6.97 (4.8-10.8) K/ul Hgb 12.0 11.8 L (12.0-16.0) g/dl Hct 37.2 37.3 (37.0-47.0) % Plt Count 337 290 (130-400) K/uL BMP 01/29/23 01/29/23 01/30/23 17:29 20:19 05:33 Sodium 138 142 Potassium TNP 4.1 4.0 Chloride 103 104 Carbon Dioxide 32 31 BUN 29 H 26 H Creatinine 1.55 H 1.11 D Glucose 113 H 115 H Calcium 9.6 9.4 Liver Function 01/29/23 Range/Units 17:29 Total Bilirubin 0.8 (0.2-1.0) mg/dl AST TNP ALT 15 (7-52) U/L Alkaline Phosphatase 80 (34-104) U/L Albumin 4.1 (3.4-5.0) gm/dl Urine 01/29/23 Range/Units 18:26 Urine Color Yellow Urine Appearance Cloudy A (Clear) Urine pH 5.5 (4.5-7.5) Ur Specific Norris 1.015 (1.000-1.030) Urine Protein 1+ H (Negative) Urine Glucose (UA) Negative (Negative) Medications Administered Current Inpatient Medications Aspirin (Aspirin 81 Mg Ectab) 81 mg PO DAILY [facility] Stop: 03/01/23 08:59 Last Admin: 01/30/23 08:26 Dose: 81 mg Azelastine HCl (Azelastine Hcl 0.1% Nasal 200 Sprays/27,400 Mcg Btl) 1 sprays NA BID PRN PRN Reason: Nasal Congestion Stop: 02/28/23 22:14 Dextrose (Dextrose 50% 50 Ml Syringe) 25 - 50 ml IV UD PRN; Protocol PRN Reason: Hypoglycemia Protocol Stop: 02/28/23 22:01 Fluticasone Propionate (Fluticasone Propionate Na Spr 16 Gm Btl) 2 sprays NA QAM [facility] Stop: 03/01/23 08:59 Last Admin: 01/30/23 08:25 Dose: 2 sprays Glucagon (Glucagon For Inj 1 Mg Vial) 1 mg SQ UD PRN; Protocol PRN Reason: Hypoglycemia Protocol Stop: 02/28/23 22:01 Glucose (Glucose 10 Tab/Tube) 4 - 8 tab PO UD PRN; Protocol PRN Reason: Hypoglycemia Treatment Stop: 02/28/23 22:01 Glucose (Glucose 40% Gel 15 Gm Tube) 15 - 30 gm PO UD PRN; Protocol PRN Reason: Hypoglycemia Protocol Stop: 02/28/23 22:01 Hydroxyurea (Hydroxyurea 500 Mg Cap) 500 mg PO DAILY [facility] Stop: 03/01/23 08:59 Last Admin: 01/30/23 08:27 Dose: 500 mg Albumin Human (Albumin 25% 100 Ml) 25 gm in 100 mls @ 50 mls/hr IV Q8H [facility] Stop: 01/30/23 20:59 Last Admin: 01/30/23 14:57 Dose: 50 mls/hr Promethazine HCl 12.5 mg/ (Sodium Chloride) 50.5 mls @ 202 mls/hr IV Q6H PRN PRN Reason: Nausea And Vomiting Stop: 02/28/23 22:01 Ertapenem 1,000 mg/ Syringe 10 mls @ 2 mls/min IV DAILY@1400 [facility] Stop: 02/09/23 13:59 Last Admin: 01/30/23 14:57 Dose: 2 mls/min Insulin Aspart (Insulin Aspart Per Unit Charge) 0 units SC ACHS [facility] Stop: 02/28/23 22:01 Last Admin: 01/30/23 12:11 Dose: Not Given Lorazepam (Lorazepam 0.5 Mg Tab) 0.5 mg PO Q8 PRN PRN Reason: Anxiety Stop: 02/28/23 22:01 Magnesium Oxide (Magnesium Oxide 400 Mg Tab) 400 mg PO DAILY [facility] Stop: 03/01/23 08:59 Last Admin: 01/30/23 08:27 Dose: 400 mg Metoprolol Succinate (Metoprolol Succ 50mg Ext Rel Tab) 150 mg PO AMHS [facility] Stop: 02/28/23 22:01 Last Admin: 01/30/23 08:26 Dose: 150 mg Miscellaneous (Carbohydrates For Hypoglycemia ) 15 - 30 gm PO UD PRN PRN Reason: Hypoglycemia Protocol Stop: 02/28/23 22:01 Pantoprazole Sodium (Pantoprazole 40 Mg Tab) 40 mg PO QAM [facility] Stop: 03/01/23 08:59 Last Admin: 01/30/23 08:25 Dose: 40 mg Rosuvastatin Calcium (Rosuvastatin Calcium 10 Mg Tab) 10 mg PO QPM [facility] Stop: 02/28/23 22:01 Last Admin: 01/29/23 22:53 Dose: 10 mg Tramadol HCl (Tramadol Hcl 50 Mg Tablet) 25 mg PO Q4H PRN PRN Reason: Pain Stop: 02/28/23 22:01 Warfarin Sodium (Warfarin Sod 2.5 Mg Tab) 2.5 mg PO DAILY@1600 [facility] Stop: 03/01/23 15:59
[2023-01-30] MEDS ORDERED: WARFARIN SOD 2.5 MG TAB PO ONE (16:23)
[2023-01-30] MEDS: LORazepam 0.5 MG TAB PO PRN (20:39)
[2023-01-30] MEDS: ROSUVASTATIN CALCIUM 10 MG TAB PO SCH (20:40)
--- NOTE | 2023-01-30 23:34 | Electrocardiogram Report ---
Test Reason : Blood Pressure : / mmHG Vent. Rate : 082 BPM Atrial Rate : 089 BPM P-R Int : 000 ms QRS Dur : 138 ms QT Int : 420 ms P-R-T Axes : 000 077 -15 degrees QTc Int : 490 ms Atrial fibrillation Right bundle branch block T wave abnormality, consider inferior ischemia Abnormal ECG When compared with ECG of 12-JAN-2022 07:32, Nonspecific T wave abnormality has replaced inverted T waves in Lateral leads Confirmed by Jet Jerome ([id number]) on 01/30/2023 11:33:58 PM Referred By: REFERRED SELF Confirmed By:Jet Jerome
[2023-01-31 06:32] LABS: BUN Creatinine Ratio 21.8 (10-20); Calcium 8.7 mg/dl (8.6-10.3); Creatinine Clr Calc Pharmacy 32.9 ml/min; Est GFR (African American) 52.6 ml/min; Est GFR (Non-African American) 45.4 ml/min; Potassium 3.9 mmol/L (3.5-5.1)
[2023-01-31 06:34] LABS: INR 2.9 (0.9-1.1); Prothrombin Time 28.7 Seconds (9.0-12.0)
[2023-01-31] MEDS: INSULIN ASPART PER UNIT CHARGE SC SCH ×5 (08:18→20:52)
[2023-01-31] MEDS: MAGNESIUM OXIDE 400 MG TAB PO SCH (08:19)
[2023-01-31] MEDS: HYDROXYUREA 500 MG CAP PO SCH (08:19)
[2023-01-31] MEDS: ASPIRIN 81 MG ECTAB PO SCH (08:19)
[2023-01-31] MEDS: METOPROLOL SUCC 50MG EXT REL TAB PO SCH ×2 (08:20→20:16)
[2023-01-31] MEDS: PANTOprazole 40 MG TAB PO SCH (08:20)
[2023-01-31] MEDS: FLUTICASONE PROPIONATE NA SPR 16 GM BTL SCH (08:30)
[2023-01-31] MEDS ORDERED: FUROSEMIDE 40 MG/4 ML VIAL IV ONE (09:42)
[2023-01-31] MEDS: TORSEMIDE 20 MG TAB PO SCH (10:48)
[2023-01-31] MEDS: ERTAPENEM SODIUM 1,000 MG in SYRINGE 0 ML IV SCH (13:58)
--- NOTE | 2023-01-31 14:36 | Hospitalist Progress Note ---
Date of Service January 31, 2023 Assessment & Plan (1) Complicated UTI (urinary tract infection): (2) Diverticulitis: Plan ESBL E coli UTI- ESBL Ecoli sensitive to meropenem, zosyn, bactrim. On ertapenem since admission but allergic to sulfa per history. ID eval pending. CT abdomen pelvis 1. Colonic diverticulosis. Wall thickening of the proximal to mid sigmoid colon with mild associated inflammation. The findings favor acute diverticulitis. A nonspecific colitis could appear similar. No free air or abscess. 2. 5 mm left renal calculus. No ureteral calculi or hydronephrosis. Abnormal CT scan-CT shows mild acute uncomplicated diverticulitis but clinically does not have corresponding symptoms. Patient does not want colonoscopy per GI. Seen by GI. Outpatient colonoscopy in 6 weeks with GI if patient prefers. RADHA-resolved. Creatinine back to baseline of 1.1, 1.55 on admission. S/p albumin discontinued yesterday. Elevated troponin-troponin trend flat. No need for further trending. No chest pain. Chronic diastolic CHF- feels congested in chest. mild CHF d/t volume resuscitation. Resume home torsemide and aldactone. Monitor volume status, I and Os and daily weight. Atrial fibrillation-rate controlled on Toprol, INR 2.9 today, rapid jump with extra coumadin. Will hold coumadin for today and recheck INR in am. It might overshoot. 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 B12 level normal. History of CAD status post CABG/stenting History of PVD History of bovine AVR, valvular disease, pulm hypertension Prediabetes-A1c 5.9. Blood sugar controlled. On SSI DVT prophylaxis-continue Coumadin, INR therapeutic. Disposition- PT/OT eval pending, lives independently at home. On ertapenem for UTI pending ID eval. Resumed on diuretics for CHF. Updated son at bedside Admission and Anticipated Discharge Date Admission Date: January 29, 2023 Subjective Patient was seen and examined at bedside. States she feels congested in her chest-feels like fluid building up. No fever, chills, chest pain, nausea or vomiting. Review of Systems Review of Systems: All systems reviewed & are unremarkable except as noted in Subjective Physical Exam Physical Exam: General: Lying comfortably in bed, not in distress, on NC Chest: Fair breath sounds bilaterally with basilar crackles CVS: Irregular, normal heart sounds Abdomen: Soft, non tender, normal bowel sounds Neuro: Awake, alert, oriented, conversing well, non focal Extremities: No cyanosis, clubbing, minimal lower extremity edema Results & Data Results & Data Vital Signs (Past 12 Hours) Vital Signs Temp Pulse Pulse Resp BP Pulse Ox O2 Del Method 01/31/23 14:30 36.4 C L 78 18 120/68 95 Room Air 01/31/23 11:12 36.4 C L 82 20 145/88 H 98 Room Air 01/31/23 08:15 Nasal Cannula 01/31/23 08:21 82 20 98 Nasal Cannula 01/31/23 07:47 36.5 C 79 20 156/86 H 99 Nasal Cannula 01/31/23 07:00 80 01/31/23 04:10 36.4 C L 82 18 117/71 100 Nasal Cannula O2 Flow Rate 01/31/23 14:30 01/31/23 11:12 01/31/23 08:15 2 01/31/23 08:21 2 01/31/23 07:47 2 01/31/23 07:00 01/31/23 04:10 2 Laboratory Results [facility] 01/31/23 05:49 Sodium 141 Potassium 3.9 Chloride 104 Carbon Dioxide 31 BUN 24 H Creatinine 1.10 Glucose 150 H Calcium 8.7 Medications Administered Current Inpatient Medications Aspirin (Aspirin 81 Mg Ectab) 81 mg PO DAILY [facility] Stop: 03/01/23 08:59 Last Admin: 01/31/23 08:19 Dose: 81 mg Azelastine HCl (Azelastine Hcl 0.1% Nasal 200 Sprays/27,400 Mcg Btl) 1 sprays NA BID PRN PRN Reason: Nasal Congestion Stop: 02/28/23 22:14 Dextrose (Dextrose 50% 50 Ml Syringe) 25 - 50 ml IV UD PRN; Protocol PRN Reason: Hypoglycemia Protocol Stop: 02/28/23 22:01 Fluticasone Propionate (Fluticasone Propionate Na Spr 16 Gm Btl) 2 sprays NA QAM [facility] Stop: 03/01/23 08:59 Last Admin: 01/31/23 08:30 Dose: 2 sprays Glucagon (Glucagon For Inj 1 Mg Vial) 1 mg SQ UD PRN; Protocol PRN Reason: Hypoglycemia Protocol Stop: 02/28/23 22:01 Glucose (Glucose 10 Tab/Tube) 4 - 8 tab PO UD PRN; Protocol PRN Reason: Hypoglycemia Treatment Stop: 02/28/23 22:01 Glucose (Glucose 40% Gel 15 Gm Tube) 15 - 30 gm PO UD PRN; Protocol PRN Reason: Hypoglycemia Protocol Stop: 02/28/23 22:01 Hydroxyurea (Hydroxyurea 500 Mg Cap) 500 mg PO DAILY [facility] Stop: 03/01/23 08:59 Last Admin: 01/31/23 08:19 Dose: 500 mg Promethazine HCl 12.5 mg/ (Sodium Chloride) 50.5 mls @ 202 mls/hr IV Q6H PRN PRN Reason: Nausea And Vomiting Stop: 02/28/23 22:01 Ertapenem 1,000 mg/ Syringe 10 mls @ 2 mls/min IV DAILY@1400 [facility] Stop: 02/09/23 13:59 Last Admin: 01/31/23 13:58 Dose: 2 mls/min Insulin Aspart (Insulin Aspart Per Unit Charge) 0 units SC ACHS [facility] Stop: 02/28/23 22:01 Last Admin: 01/31/23 12:27 Dose: Not Given Lorazepam (Lorazepam 0.5 Mg Tab) 0.5 mg PO Q8 PRN PRN Reason: Anxiety Stop: 02/28/23 22:01 Last Admin: 01/30/23 20:39 Dose: 0.5 mg Magnesium Oxide (Magnesium Oxide 400 Mg Tab) 400 mg PO DAILY [facility] Stop: 03/01/23 08:59 Last Admin: 01/31/23 08:19 Dose: 400 mg Metoprolol Succinate (Metoprolol Succ 50mg Ext Rel Tab) 150 mg PO AMHS [facility] Stop: 02/28/23 22:01 Last Admin: 01/31/23 08:20 Dose: 150 mg Miscellaneous (Carbohydrates For Hypoglycemia ) 15 - 30 gm PO UD PRN PRN Reason: Hypoglycemia Protocol Stop: 02/28/23 22:01 Pantoprazole Sodium (Pantoprazole 40 Mg Tab) 40 mg PO QAM [facility] Stop: 03/01/23 08:59 Last Admin: 01/31/23 08:20 Dose: 40 mg Rosuvastatin Calcium (Rosuvastatin Calcium 10 Mg Tab) 10 mg PO QPM [facility] Stop: 02/28/23 22:01 Last Admin: 01/30/23 20:40 Dose: 10 mg Spironolactone (Spironolactone 12.5 Mg Tab) 12.5 mg PO MOWEFR [facility] Stop: 03/03/23 09:59 Torsemide (Torsemide 20 Mg Tab) 40 mg PO QAM [facility] Stop: 03/02/23 10:29 Last Admin: 01/31/23 10:48 Dose: 40 mg Tramadol HCl (Tramadol Hcl 50 Mg Tablet) 25 mg PO Q4H PRN PRN Reason: Pain Stop: 02/28/23 22:01 Warfarin Sodium (Warfarin Sod 2.5 Mg Tab) 2.5 mg PO DAILY@1600 [facility] Stop: 03/01/23 15:59 Last Admin: 01/30/23 16:48 Dose: 2.5 mg
[2023-01-31] MEDS: LORazepam 0.5 MG TAB PO PRN (20:16)
[2023-01-31] MEDS: ROSUVASTATIN CALCIUM 10 MG TAB PO SCH (20:16)
[2023-02-01 07:21] LABS: Hematocrit (blood only) 33.8 % (37.0-47.0); Hemoglobin 10.9 g/dl (12.0-16.0); Mean Corpuscular Hemoglobin 34.7 pg (25.0-34.0); Mean Corpuscular Hgb Conc 32.2 g/dL (32.0-36.0); Mean Corpuscular Volume 107.6 fL (80.0-100.0); Mean Platelet Volume 11.2 fL (9.4-12.4); Platelet Count 265 K/uL (130-400); RDW Coefficient of Variation 14.4 % (11.5-14.5); RDW Standard Deviation 55.9 fL (36.4-46.3); Red Blood Count 3.14 M/uL (4.20-5.40); White Blood Count 6.82 K/ul (4.8-10.8)
[2023-02-01 07:36] LABS: BUN Creatinine Ratio 21.5 (10-20); Calcium 8.9 mg/dl (8.6-10.3); Est GFR (African American) 46.9 ml/min; Est GFR (Non-African American) 40.5 ml/min; Magnesium 1.7 mg/dl (1.7-2.4); Potassium 3.7 mmol/L (3.5-5.1)
[2023-02-01 07:51] LABS: INR 4.5 (0.9-1.1); Prothrombin Time 43.9 Seconds (9.0-12.0)
[2023-02-01] MEDS: ASPIRIN 81 MG ECTAB PO SCH (08:31)
[2023-02-01] MEDS: HYDROXYUREA 500 MG CAP PO SCH (08:31)
[2023-02-01] MEDS: PANTOprazole 40 MG TAB PO SCH (08:32)
[2023-02-01] MEDS: MAGNESIUM OXIDE 400 MG TAB PO SCH (08:32)
[2023-02-01] MEDS: FLUTICASONE PROPIONATE NA SPR 16 GM BTL SCH (08:32)
[2023-02-01] MEDS: INSULIN ASPART PER UNIT CHARGE SC SCH ×4 (08:32→21:50)
[2023-02-01] MEDS: TORSEMIDE 20 MG TAB PO SCH (08:32)
[2023-02-01] MEDS: METOPROLOL SUCC 50MG EXT REL TAB PO SCH ×2 (09:57→20:56)
[2023-02-01] MEDS ORDERED: SPIRONOLACTONE 12.5 MG TAB PO SCH (10:00)
[2023-02-01] MEDS: ERTAPENEM SODIUM 1,000 MG in SYRINGE 0 ML IV SCH (14:14)
--- NOTE | 2023-02-01 15:07 | Hospitalist Progress Note ---
Date of Service February 01, 2023 Assessment & Plan (1) Complicated UTI (urinary tract infection): (2) Diverticulitis: Plan ESBL E coli UTI- ESBL Ecoli sensitive to meropenem, zosyn, bactrim. On ertapenem since admission but allergic to sulfa per history. ID eval pending. CT abdomen pelvis 1. Colonic diverticulosis. Wall thickening of the proximal to mid sigmoid colon with mild associated inflammation. The findings favor acute diverticulitis. A nonspecific colitis could appear similar. No free air or abscess. 2. 5 mm left renal calculus. No ureteral calculi or hydronephrosis. Abnormal CT scan-CT shows mild acute uncomplicated diverticulitis but clinically does not have corresponding symptoms. Patient does not want colonoscopy per GI. Seen by GI. Outpatient colonoscopy in 6 weeks with GI if patient prefers. RADHA-resolved. Creatinine back to baseline of 1.1, 1.55 on admission. S/p albumin. Elevated troponin-troponin trend flat. No need for further trending. No chest pain. Chronic diastolic CHF - felt congested in chest. mild CHF d/t volume resuscitation. Resumed home torsemide and aldactone. Monitor volume status, I and Os and daily weight. Feels better now, no longer feels congested. Atrial fibrillation-rate controlled on Toprol, INR 4.5 today, rapid jump with extra coumadin. Will hold coumadin for today again and recheck INR in am. 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 B12 level normal. History of CAD status post CABG/stenting History of PVD History of bovine AVR, valvular disease, pulm hypertension Prediabetes- A1c 5.9. Blood sugar controlled. On SSI DVT prophylaxis- hold Coumadin, INR supratherapeutic. Disposition- PT/OT eval pending, lives independently at home. On ertapenem for UTI pending ID eval. Resumed on diuretics for CHF. Admission and Anticipated Discharge Date Admission Date: January 29, 2023 Subjective Patient seen in follow up of ESBL UTI Currently sitting up in chair, in no acute distress Per RN, patient was ambulating with a walker Patient continues to be chest pain, occasionally she feels short of breath, no abdominal pain, also denies any diarrhea. No fever, chills, no nausea or vomiting. Review of Systems Review of Systems: All systems reviewed & are unremarkable except as noted in Subjective Physical Exam Physical Exam: General: obese elderly F in NAD, sitting up in chair, on RA Chest: minimal basilar crackles CVS: Irregular, normal heart sounds Abdomen: Soft, non tender, normal bowel sounds Neuro: Awake, alert, oriented, conversing well,speech fluent, moves extremities Extremities: minimal lower extremity edema, moves extremities Skin: warm, dry Results & Data Results & Data Vital Signs (Past 12 Hours) Vital Signs Temp Pulse Pulse Resp BP Pulse Ox O2 Del Method 02/01/23 09:35 Room Air 02/01/23 07:49 36.7 C 78 16 116/76 100 Room Air 02/01/23 07:00 78 02/01/23 03:32 36.5 C 82 20 146/58 H 99 Nasal Cannula O2 Flow Rate 02/01/23 09:35 02/01/23 07:49 02/01/23 07:00 02/01/23 03:32 2 Laboratory Results 02/01/23 02/01/23 02/01/23 Range/Units 11:43 07:44 06:35 WBC (4.8-10.8) K/ul RBC (4.20-5.40) M/uL Hgb (12.0-16.0) g/dl Hct (37.0-47.0) % MCV (80.0-100.0) fL MCH (25.0-34.0) pg MCHC (32.0-36.0) g/dL RDW Std Deviation (36.4-46.3) fL RDW Coeff of Ge (11.5-14.5) % Plt Count (130-400) K/uL MPV (9.4-12.4) fL PT 43.9 H (9.0-12.0) Seconds INR 4.5 H (0.9-1.1) Sodium (136-145) mmol/L Potassium (3.5-5.1) mmol/L Chloride (98-107) mmol/L Carbon Dioxide (21-32) mmol/L Anion Gap (3-11) BUN (6-23) mg/dl Creatinine (0.6-1.2) mg/dl Est Cr Clr Drug Dosing ml/min Est GFR ( Amer) ml/min Est GFR (Non-Af Amer) ml/min BUN/Creatinine Ratio (10-20) Glucose (70-99(Fasting)) mg/dl POC Glucose 119 H 123 H (70-99) mg/dl Calcium (8.6-10.3) mg/dl Magnesium (1.7-2.4) mg/dl 02/01/23 02/01/23 01/31/23 Range/Units 06:35 06:35 20:31 WBC 6.82 (4.8-10.8) K/ul RBC 3.14 L (4.20-5.40) M/uL Hgb 10.9 L (12.0-16.0) g/dl Hct 33.8 L (37.0-47.0) % MCV 107.6 H (80.0-100.0) fL MCH 34.7 H (25.0-34.0) pg MCHC 32.2 (32.0-36.0) g/dL RDW Std Deviation 55.9 H (36.4-46.3) fL RDW Coeff of Ge 14.4 (11.5-14.5) % Plt Count 265 (130-400) K/uL MPV 11.2 (9.4-12.4) fL PT (9.0-12.0) Seconds INR (0.9-1.1) Sodium 144 (136-145) mmol/L Potassium 3.7 (3.5-5.1) mmol/L Chloride 101 (98-107) mmol/L Carbon Dioxide 37 H (21-32) mmol/L Anion Gap 6 (3-11) BUN 26 H (6-23) mg/dl Creatinine 1.21 H (0.6-1.2) mg/dl Est Cr Clr Drug Dosing 30.0 ml/min Est GFR ( Amer) 46.9 ml/min Est GFR (Non-Af Amer) 40.5 ml/min BUN/Creatinine Ratio 21.5 H (10-20) Glucose 109 H (70-99(Fasting)) mg/dl POC Glucose 112 H (70-99) mg/dl Calcium 8.9 (8.6-10.3) mg/dl Magnesium 1.7 (1.7-2.4) mg/dl 01/31/23 Range/Units 16:34 WBC (4.8-10.8) K/ul RBC (4.20-5.40) M/uL Hgb (12.0-16.0) g/dl Hct (37.0-47.0) % MCV (80.0-100.0) fL MCH (25.0-34.0) pg MCHC (32.0-36.0) g/dL RDW Std Deviation (36.4-46.3) fL RDW Coeff of Ge (11.5-14.5) % Plt Count (130-400) K/uL MPV (9.4-12.4) fL PT (9.0-12.0) Seconds INR (0.9-1.1) Sodium (136-145) mmol/L Potassium (3.5-5.1) mmol/L Chloride (98-107) mmol/L Carbon Dioxide (21-32) mmol/L Anion Gap (3-11) BUN (6-23) mg/dl Creatinine (0.6-1.2) mg/dl Est Cr Clr Drug Dosing ml/min Est GFR ( Amer) ml/min Est GFR (Non-Af Amer) ml/min BUN/Creatinine Ratio (10-20) Glucose (70-99(Fasting)) mg/dl POC Glucose 111 H (70-99) mg/dl Calcium (8.6-10.3) mg/dl Magnesium (1.7-2.4) mg/dl Medications Administered Current Inpatient Medications Aspirin (Aspirin 81 Mg Ectab) 81 mg PO DAILY [facility] Stop: 03/01/23 08:59 Last Admin: 02/01/23 08:31 Dose: 81 mg Azelastine HCl (Azelastine Hcl 0.1% Nasal 200 Sprays/27,400 Mcg Btl) 1 sprays NA BID PRN PRN Reason: Nasal Congestion Stop: 02/28/23 22:14 Dextrose (Dextrose 50% 50 Ml Syringe) 25 - 50 ml IV UD PRN; Protocol PRN Reason: Hypoglycemia Protocol Stop: 02/28/23 22:01 Fluticasone Propionate (Fluticasone Propionate Na Spr 16 Gm Btl) 2 sprays NA QAM [facility] Stop: 03/01/23 08:59 Last Admin: 02/01/23 08:32 Dose: 2 sprays Glucagon (Glucagon For Inj 1 Mg Vial) 1 mg SQ UD PRN; Protocol PRN Reason: Hypoglycemia Protocol Stop: 02/28/23 22:01 Glucose (Glucose 10 Tab/Tube) 4 - 8 tab PO UD PRN; Protocol PRN Reason: Hypoglycemia Treatment Stop: 02/28/23 22:01 Glucose (Glucose 40% Gel 15 Gm Tube) 15 - 30 gm PO UD PRN; Protocol PRN Reason: Hypoglycemia Protocol Stop: 02/28/23 22:01 Hydroxyurea (Hydroxyurea 500 Mg Cap) 500 mg PO DAILY [facility] Stop: 03/01/23 08:59 Last Admin: 02/01/23 08:31 Dose: 500 mg Promethazine HCl 12.5 mg/ (Sodium Chloride) 50.5 mls @ 202 mls/hr IV Q6H PRN PRN Reason: Nausea And Vomiting Stop: 02/28/23 22:01 Ertapenem 1,000 mg/ Syringe 10 mls @ 2 mls/min IV DAILY@1400 [facility] Stop: 02/09/23 13:59 Last Admin: 02/01/23 14:14 Dose: 2 mls/min Insulin Aspart (Insulin Aspart Per Unit Charge) 0 units SC ACHS [facility] Stop: 02/28/23 22:01 Last Admin: 02/01/23 11:46 Dose: Not Given Lorazepam (Lorazepam 0.5 Mg Tab) 0.5 mg PO Q8 PRN PRN Reason: Anxiety Stop: 02/28/23 22:01 Last Admin: 01/31/23 20:16 Dose: 0.5 mg Magnesium Oxide (Magnesium Oxide 400 Mg Tab) 400 mg PO DAILY [facility] Stop: 03/01/23 08:59 Last Admin: 02/01/23 08:32 Dose: 400 mg Metoprolol Succinate (Metoprolol Succ 50mg Ext Rel Tab) 150 mg PO AMHS [facility] Stop: 02/28/23 22:01 Last Admin: 02/01/23 09:57 Dose: 150 mg Miscellaneous (Carbohydrates For Hypoglycemia ) 15 - 30 gm PO UD PRN PRN Reason: Hypoglycemia Protocol Stop: 02/28/23 22:01 Pantoprazole Sodium (Pantoprazole 40 Mg Tab) 40 mg PO QAM [facility] Stop: 03/01/23 08:59 Last Admin: 02/01/23 08:32 Dose: 40 mg Rosuvastatin Calcium (Rosuvastatin Calcium 10 Mg Tab) 10 mg PO QPM [facility] Stop: 02/28/23 22:01 Last Admin: 01/31/23 20:16 Dose: 10 mg Spironolactone (Spironolactone 12.5 Mg Tab) 12.5 mg PO MOWEFR [facility] Stop: 03/03/23 09:59 Last Admin: 02/01/23 09:57 Dose: 12.5 mg Torsemide (Torsemide 20 Mg Tab) 40 mg PO QAM [facility] Stop: 03/02/23 10:29 Last Admin: 02/01/23 08:32 Dose: 40 mg Tramadol HCl (Tramadol Hcl 50 Mg Tablet) 25 mg PO Q4H PRN PRN Reason: Pain Stop: 02/28/23 22:01 Warfarin Sodium (Warfarin Sod 2.5 Mg Tab) 2.5 mg PO DAILY@1600 [facility] Stop: 03/01/23 15:59 Last Admin: 01/30/23 16:48 Dose: 2.5 mg
[2023-02-01] MEDS: ROSUVASTATIN CALCIUM 10 MG TAB PO SCH (20:56)
[2023-02-01] MEDS: LORazepam 0.5 MG TAB PO PRN (20:59)
[2023-02-02 08:10] LABS: Hematocrit (blood only) 35.2 % (37.0-47.0); Mean Corpuscular Hemoglobin 34.1 pg (25.0-34.0); Mean Corpuscular Hgb Conc 31.3 g/dL (32.0-36.0); Platelet Count 298 K/uL (130-400); RDW Coefficient of Variation 14.2 % (11.5-14.5); RDW Standard Deviation 57.1 fL (36.4-46.3); Red Blood Count 3.23 M/uL (4.20-5.40); White Blood Count 6.18 K/ul (4.8-10.8)
[2023-02-02 08:21] LABS: BUN Creatinine Ratio 26.9 (10-20); Calcium 9.2 mg/dl (8.6-10.3); Creatinine Clr Calc Pharmacy 30.6 ml/min; Est GFR (African American) 47.9 ml/min; Est GFR (Non-African American) 41.3 ml/min; Magnesium 1.7 mg/dl (1.7-2.4); Phosphorus 3.6 mg/dl (2.5-4.9); Potassium 3.7 mmol/L (3.5-5.1)
[2023-02-02 08:41] LABS: INR 3.9 (0.9-1.1); Prothrombin Time 38.7 Seconds (9.0-12.0)
[2023-02-02] MEDS: INSULIN ASPART PER UNIT CHARGE SC SCH ×2 (09:01→11:48)
[2023-02-02] MEDS: ASPIRIN 81 MG ECTAB PO SCH (09:15)
[2023-02-02] MEDS: MAGNESIUM OXIDE 400 MG TAB PO SCH (09:16)
[2023-02-02] MEDS: HYDROXYUREA 500 MG CAP PO SCH (09:16)
[2023-02-02] MEDS: METOPROLOL SUCC 50MG EXT REL TAB PO SCH (09:16)
[2023-02-02] MEDS: FLUTICASONE PROPIONATE NA SPR 16 GM BTL SCH (09:16)
[2023-02-02] MEDS: TORSEMIDE 20 MG TAB PO SCH (09:17)
[2023-02-02] MEDS: PANTOprazole 40 MG TAB PO SCH (09:17)
[2023-02-02] MEDS ORDERED: POTASSIUM CHLORIDE CRTAB 20 MEQ TABCR PO STA (10:41)
[2023-02-02] MEDS ORDERED: ADVANCED PROBIOTIC 1250 MG CAPSULE PO SCH (10:45)
[2023-02-02] MEDS ORDERED: MAGNESIUM SULFATE / D5W 1 GM/100 ML BAG IV ONE (10:48)
--- NOTE | 2023-02-02 10:56 | Discharge Summary ---
Date of Service February 02, 2023 Admission HPI Per Admitting Provider History obtained from patient, family, and records. Medical history significant for chronic diastolic heart failure (EF 55 to 60%, TTE 2020), SSS sp PPM on Coumadin, CAD sp CABG/stenting, hx PVD, history of bovine AVR, valvular heart disease (moderate MR/TR), pulmonary hypertension HTN, hyperlipidemia, mild GAVIN (CPAP intolerance as per records), DM2 diet- controlled, CRI (baseline creatinine 1.1), history urge incontinence, recurrent UTIs on chronic Macrodantin suppression Rx, essential thrombocythemia as per records, GERD, history of colonic diverticulosis/polyps, restless leg syndrome. Last confinement August 2021 for esophagitis. Carafate added to patient's PPI. 2 weeks ago, patient noted dysuria, chills and bloating symptoms. Outpatient UA showed possible infection. Patient told to increase daily prophylactic Macrobid 200 mg twice daily for 1 week. Final urine CS resulted 4 days ago. ESBL E. coli resistant to Macrobid, Unasyn, ceftriaxone, quinolones. Patient instructed by outpatient provider to start Bactrim and call office if with symptoms. Patient later noted some pelvic discomfort with nausea. Restless legs acting up as per patient. No chest pain. Usual shortness of breath. Denies diarrhea/black/bloody stools. No fever, no chills. Patient brought to ER by family for evaluation. MEDICAL HISTORY: As above. 2012 colonoscopy showed sigmoid polyp, diverticulosis from descending colon to sigmoid, melanosis SURGICAL HISTORY: History of coronary artery bypass graft, Total abdominal hysterectomy, bilateral salpingo-oophorectomy, bladder/urethra surgery, PPM for sinus node dysfunction, knee surgery, BTL, bioprosthetic AVR FAMILY HISTORY: Hypertension. Diabetes. Stroke. PERSONAL/ SOCIAL HISTORY: Nonsmoker. No chronic intake of alcoholic beverage. She is a retired [employer] employee. Admission Exam Per Admitting Provider GENERAL: Pleasant, slightly anxious, obese, no respiratory distress SKIN: Normal color, warm HEENT: Bespectacled, pink palpebral conjunctivae, no ptosis, dry buccal mucosa NECK : Supple, short neck, no tenderness CHEST : Decreased breath sounds, no tenderness HEART : Irregular, systolic murmur ABDOMEN: Some distention, no overt tenderness EXTREMITIES : Minimal bilateral LE swelling, no LE tenderness, no other conspicuous deformities noted NEUROLOGIC : Coherent, no facial asymmetry, no other gross focality Principal Diagnosis ESBL E. coli UTI Discharge Exam General: obese elderly F in NAD, sitting up in chair, on RA Chest: minimal basilar crackles, no wheezing CVS: Irregular, normal heart sounds Abdomen: Soft, non tender, normal bowel sounds Neuro: Awake, alert, oriented, conversing well,speech fluent, moves extremities Extremities: no lower extremity edema, moves extremities Skin: warm, dry Discharge Data Allergies Allergy/AdvReac Type Severity Reaction Status Date / Time iodine Allergy Intermediate itching Verified 01/29/23 19:52 amiodarone Allergy Mild UNSURE Verified 01/29/23 19:52 etodolac Allergy Mild Unknown Verified 01/29/23 19:52 Sulfa (Sulfonamide Allergy Mild Unknown Verified 01/29/23 19:52 Antibiotics) gabapentin AdvReac Mild sedation Verified 01/29/23 19:52 Penicillins AdvReac Mild YEAST INF Verified 01/29/23 19:52 simvastatin AdvReac Unknown CAN'T Verified 01/29/23 19:52 REMEMBER Consultations 01/29/23 19:19 ED Decision to Admit Stat 01/29/23 21:37 Consult Infectious Diseases Routine 01/29/23 22:02 Consult Gastroenterology Routine Ordered Studies 01/29/23 17:30 CT abd pelvis wo con Stat FINDINGS: Pacer leads are partially imaged. There is cardiomegaly. No pneumatosis, free air or portal venous gas is present. There is a 5 mm calculus within lower pole of the left kidney. There are no ureteral calculi. No hydronephrosis. Moderate multifocal scarring of the kidneys is noted. 1.5 cm hyperdense right renal lesion on axial image 201 of [id number] is suboptimally assessed on this unenhanced exam but may reflect a hyperdense cyst. Unenhanced images of the liver, spleen, adrenal glands and pancreas are unremarkable. There is no biliary or pancreatic ductal dilatation. There is no evidence for a bowel obstruction. The appendix is normal. Colonic diverticulosis is noted. There is wall thickening of the proximal to mid sigmoid colon with mild adjacent stranding. There is no free air or abscess. The findings favor acute diverticulitis. No additional sites of abnormal thickening identified on this unenhanced examination. No acute fracture or suspicious lesion is identified within visualized skeletal structures. IMPRESSION: 1. Colonic diverticulosis. Wall thickening of the proximal to mid sigmoid colon with mild associated inflammation. The findings favor acute diverticulitis. A nonspecific colitis could appear similar. No free air or abscess. 2. 5 mm left renal calculus. No ureteral calculi or hydronephrosis. Hospital Course (1) Complicated UTI (urinary tract infection): (2) Diverticulitis: Plan ESBL E coli UTI- ESBL Ecoli sensitive to meropenem, zosyn, bactrim. On ertapenem since admission but allergic to sulfa per history. ID eval obtained. Can discharge on amoxicillin-clavulonate 500mg BID to finish [address] abdomen pelvis 1. Colonic diverticulosis. Wall thickening of the proximal to mid sigmoid colon with mild associated inflammation. The findings favor acute diverticulitis. A nonspecific colitis could appear similar. No free air or abscess. 2. 5 mm left renal calculus. No ureteral calculi or hydronephrosis. Abnormal CT scan-CT shows mild acute uncomplicated diverticulitis but clinically does not have corresponding symptoms. Patient does not want colonoscopy per GI. Seen by GI. Outpatient colonoscopy in 6 weeks with GI if patient prefers. RADHA-resolved. Creatinine back to baseline of 1.1, 1.55 on admission. S/p albumi n. Elevated troponin-troponin trend flat. No need for further trending. No chest pain. Chronic diastolic CHF - felt congested in chest. mild CHF d/t volume resuscitation. Resumed home torsemide and aldactone. Monitor volume status, I and Os and daily weight. Feels better now, no longer feels congested. Atrial fibrillation-rate controlled on Toprol, INR 3.9 today, rapid jump with extra coumadin. Will hold coumadin for today again and recheck INR as outpt recommended. 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 B12 level normal. History of CAD status post CABG/stenting History of PVD History of bovine AVR, valvular disease, pulm hypertension Prediabetes- A1c 5.9. Blood sugar controlled. On SSI DVT prophylaxis- hold Coumadin, INR supratherapeutic. Disposition- Plan to [place] home today Total Time Total Time Spent Total Time Spent (In Minutes): 40 Discharge Plan Discharge Items Patient Disposition: Home - Home Health Services Reason For Visit: COMP UTI, TROP ELEV Discharge Diagnosis: ESBL E. coli UTI Activity: Per Instructions section Non-emergency contact: Primary Care Provider Call non-emergency contact if: you have any medication questions and your symptoms worsen Follow-up/Referrals: Yaya Frederick MD [Primary Care Provider] - (Date & Time 02/08/2023 11:40 AM Provider Josh Block DO Department [facility] ) Diet: Low Fiber Addtl Attending Provider Instructions: Follow-up with primary care doctor within 1 week. The appointment was scheduled for you for February 08. Finish antibiotic treatment, with Augmentin/amoxicillinclavulanate 500 mg twice daily, as prescribed. Recommend taking probiotics, to prevent any stomach upset while taking antibiotics. Do not take warfarin/Coumadin today or tomorrow. Have your INR checked within the next 2 days. Follow-up with your primary care doctor and /or 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 clinic regarding your INR/Coumadin dose. Pending Studies at Discharge: No Stand-Alone Forms: My [employer], Smoking Cessation Medications and DC Order Prescriptions: New amoxicillin-pot clavulanate 500-125 mg tablet 1 tab PO BID Qty: 5 0RF Advanced Probiotic 625 mg (10 billion cell) Capsule 2 cap PO DAILY Qty: 10 0RF Continued Azelastine Lazbuddie 1 spray intranasal BID PRN (Reason: Nasal Congestion) hydroxyurea 500 mg capsule 500 mg PO DAILY torsemide 20 mg tablet 20 mg PO QAM Rx Instructions: farhat says to take 2 tabs in am. clindamycin HCl 300 mg Capsule 600 mg PO DIRECTED Rx Instructions: Take 1 hr prior to dental apt. metoprolol succinate 100 mg tablet extended release 24 hr 150 mg PO [facility] warfarin 2.5 mg tablet 1.25 mg PO .6DAYWEEK Rx Instructions: takes 0 mg on mon. fexofenadine [Lizzette Allergy] 180 mg Tablet 180 mg PO DAILY PRN (Reason: allergies) spironolactone 25 mg Tablet 12.5 mg PO MOWEFR lorazepam 0.5 mg Tablet 0.5 mg PO Q8 PRN (Reason: Anxiety) pantoprazole 40 mg tablet,delayed release (DR/EC) 40 mg PO QAM nitrofurantoin macrocrystal 100 mg capsule 100 mg PO HS Rx Instructions: Take 1 cap before hs with food. diphenhydramine HCl [Benadryl Allergy] 25 mg Tablet 25 mg PO Q4 PRN (Reason: allergies) nitroglycerin [Nitrostat] 0.4 mg Tablet, Sublingual 0.4 mg sublingual DIRECTED PRN (Reason: Chest Pain) mometasone 50 mcg/actuation spray,non-aerosol 2 spray INTRANASAL QAM aspirin 81 mg Tablet,Chewable 81 mg PO DAILY ipratropium bromide 21 mcg (0.03 %) spray,non-aerosol 2 spray INTRANASAL BID PRN (Reason: .rhinitis) rosuvastatin 10 mg tablet 10 mg PO QPM camphor-menthol 0.2-3.5 % Gel 1 applic TOPICAL BID PRN (Reason: Pain) Rx Instructions: rub in gently and completely calcium carbonate-vitamin D3 [Caltrate with Vitamin D3] 600 mg-20 mcg (800 unit) Tablet 1 tab PO DAILY Rx Instructions: has 400 units d magnesium oxide 400 mg magnesium Tablet 400 mg PO DAILY Discharge Orders: Discharge Order (Routine); Ordered 02/02/23 Ordered By: Rafael Lockwood/Other Patient Handouts: A1C Admission Data Admit Date/Time: 01/29/23 20:20 Attending Provider: Rafael Keller Admit Provider: Josh Richey Primary Care Provider: Yaya Frederick Other Providers: Josh Richey ; Ezequiel Nicole ; Nessa Holman ; Marin Pena I. ; Salvatore Hightower II ; Cris Rosa ; Bucky Owusu ; Wang Ontiveros ; Susannah Evans ; Faraz Madrigal ; Steven Lopez ; Anay Toledo ; [place]ia Johnson ; Carol Duran ; Gladis Bonds ; Jolanta,Shekhar ; Vikram Jiménez ; Kathe Fulton ; Gypsy Lucas ; Didier Mcginnis ; Anabel Champion ; Valentine Andrea ; Alyx Cruz ; Irene Del Angel ; Katharine Carcamo ; Ebenezer Carter ; Santiago Proctor ; Xena Nam ; Leila Auguste Jr ; Paresh Hair ; [place] Other Interventions: Discharge Summary Assessment (RN) Last Done: 02/02/23 14:27
[2023-02-02] MEDS: ERTAPENEM SODIUM 1,000 MG in SYRINGE 0 ML IV SCH (13:11)
== END 2023-02-02 14:56 | disposition home health service (06) | DRG 690 ==
LOC: ED 17:03 → 2W 20:20 → SUATTDRO 20:20 → 2W 21:35

== ENCOUNTER 2023-05-02 18:42 | Inpatient (IN) ==
[~2023-05-02 18:42] MED LIST changes: -ALEN70TA4 PO; -ALUMSUS2 PO; -ASPI81TA28 PO; -BTP80 PO; -CALC-20 PO; -CLC/300 PO; -CLR10 PO; -CMD/25 PO; -CRS10 PO; -CZR50 PO; -DIPH25CA5 PO; -EPP3/2 IM; -FERR325T5 PO; -FURO-85 PO; -MAGN400T6 PO; -METO25TA56 PO; -MULTCHW PO; -NSNN50 NAE; -NTRGSL/4 UT; -OMEP20CA9 PO; +POTASSIUM CHLORIDE CRTAB 20 MEQ TABCR PO STA; -SENNTAB23 PO; -SPIR25TA89 PO; -SPR25 PO
[2023-05-02] MEDS ORDERED: NITROGLYCERIN 2% OINTMENT 30GM TUBE EXT STA (19:14)
[2023-05-02 19:50] LABS: Basophils # (auto) 0.04 K/uL (0-0.2); Basophils % (auto) 0.6 %; Eosinophils # (auto) 0.21 K/uL (0-0.50); Eosinophils % (auto) 3.4 %; Hematocrit (blood only) 32.6 % (37.0-47.0); Hemoglobin 10.3 g/dl (12.0-16.0); Immature Granulocytes # (auto) 0.03 K/uL (0.01-0.20); Immature Granulocytes % (auto) 0.5 %; Lymphocytes # (auto) 0.68 K/uL (1.2-3.4); Lymphocytes % (auto) 10.9 %; Mean Corpuscular Hemoglobin 34.6 pg (25.0-34.0); Mean Corpuscular Hgb Conc 31.6 g/dL (32.0-36.0); Mean Corpuscular Volume 109.4 fL (80.0-100.0); Mean Platelet Volume 10.9 fL (9.4-12.4); Monocytes # (auto) 0.88 K/uL (0.11-0.59); Monocytes % (auto) 14.1 %; Neutrophils # (auto) 4.39 K/uL (1.40-6.50); Neutrophils % (auto) 70.5 %; Platelet Count 247 K/uL (130-400); RDW Coefficient of Variation 15.4 % (11.5-14.5); RDW Standard Deviation 61.4 fL (36.4-46.3); Red Blood Count 2.98 M/uL (4.20-5.40); White Blood Count 6.23 K/ul (4.8-10.8)
--- NOTE | 2023-05-02 20:02 | Emergency Department Note ---
Impression & Plan Chest pain ED Provider Note ED Provider Note NAME: SARAH HOLMAN AGE:88 SEX: Female : 1935 ARRIVES VIA: EMS INFORMANT: Patient ED PROVIDER(s): Paola Street DO CHIEF COMPLAINT: Chest pain HPI: This is an 88-year-old female who presents from home via EMS due to concern for chest pain. Patient states while eating dinner she began noticing a central chest pain. She states this pain was nonradiating and sharp. She states she took one of her home nitro without any relief so she waited 5 minutes and took a second. When the pain did not darell after the second nitro she called 911. Patient does have significant heart history including prior CABG as well as atrial fibrillation and does take warfarin daily. Patient denies any recent fevers, chills, or illness. She denies any recent change in medication. Patient states when the pain started she did feel slightly short of breath. She denies any dizziness, nausea, or diaphoresis. She denies any recent leg swelling or calf tenderness. PAST MEDICAL HISTORY:See Below PAST SURGICAL HISTORY:See Below FAMILY HISTORY:See Below SOCIAL HISTORY:See Below HOME MEDICATIONS:See Below ALLERGIES:See Below VITALS:See Below PHYSICAL EXAMINATION: GENERAL: alert, well appearing, well nourished, no distress, non-toxic EYE EXAM: normal conjunctiva, PERRL and EOM's grossly intact OROPHARYNX: no exudate, no erythema, lips, buccal mucosa, and tongue normal and mucous membranes are moist NECK: supple, no nuchal rigidity, no adenopathy, non-tender LUNGS: Clear to auscultation. Normal chest wall mechanics, no w/r/r HEART: no murmurs, S1 normal and S2 normal, no reproducible pain with palpation ABDOMEN: abdomen soft, non-tender, normo-active bowel sounds, no masses, no rebound or guarding. BACK: Back is symmetrical on inspection and there is no deformity, no midline tenderness, no CVA tenderness. SKIN: no rashes, petechiae, orbruising UPPER EXTREMITIES: upper extremities are grossly normal. FROM, nml pulses b/l. LOWER EXTREMITIES: Trace b/l pitting edema. FROM, nml pulses b/l. NEURO EXAM: Normal sensorium, cranial nerves II-XII grossly intact, normal speech, no facial droop,nogross weakness of arms, no gross weakness of legs. Gross sensation intact. No ataxia. Vital Signs: reviewed and remarkable Differential Diagnosis: acute coronary syndrome, CHF, pericarditis, pulmonary embolus, aortic dissection, pneumonia, pneumothorax, musculoskeletal pain, GERD, perf, as well as others were considered MEDICAL DECISION MAKING: This is an 88-year-old female who presents due to concern for chest pain which began this evening and did not improve with 2 nitro at home. She was given additional aspirin by EMS and presented here. She was afebrile and vital signs stable although was still having pain at that time. Labs are drawn and sent, IV established, EKG and chest x-ray performed at bedside and interpreted by me and patient monitored on telemetry. Patient given Nitropaste with resolution of her pain. Patient noted to be mildly subtherapeutic on her INR. On review of recent cardiology note they have been changing patient's medications and she does have a history of CHF. Patient's exam not consistent with acute volume overloaded state. Patient found to have a markedly elevated troponin level. We discussed all results at bedside as well as the need for additional inpatient evaluation given significant cardiac history. [facility]. Patient started on a heparin drip. Consultation(s): 2047: Discussed with Dr. Graff for admission. ER Treatment Provided: See below Diagnostics Interpreted By Me: -ECG: A-fib at 92, right bundle branch block, prolonged QTc, occasional PVC, nonspecific ST/T wave changes noted -Cardiac Monitoring: An order was placed for continuous cardiac monitoring. The monitor shows a rate of 94 with a.fib rhythm. -Laboratory studies: As stated above and show below. -Imaging studies: Chest x-ray: Mild cardiomegaly noted, pacemaker device noted, sternotomy wires noted, left pleural effusion again noted, no acute infiltrate or wide mediastinum Triage Nursing Note Reviewed Prior/Outside Records Reviewed - prior cardiology visit Critical Care: Critical care of 39 min performed to assess and manage high likelihood of life- threatening ACS, involving labs and imaging performed with assessment to evaluate ACS diagnosis with frequent reassessment. This time includes bedside time, treatment discussions with patient/family/consultants, documentation time and excludes procedure time. Past Med/Surg History Medical History Anemia ASCVD (arteriosclerotic cardiovascular disease) 2006 - CABG x 3, bioproesthetic aortic valve replacement 2007 - PCI and stenting to SVG to RCA occlusion Atrial fibrillation, persistent Cardiac pacemaker in situ Carotid artery occlusion (Unknown) Chronic diastolic CHF (congestive heart failure) CKD (chronic kidney disease) stage 2, GFR 60-89 ml/min CKD (chronic kidney disease), stage III Current use of teletypist 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 Dermatitis Essential thrombocythemia Generalized weakness HLD (hyperlipidemia) HTN (hypertension) Replacement of aortic valve (Unknown) [place] [place] " Sensorineural hearing loss of both ears Sinus node dysfunction 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 UTI due to extended-spectrum beta lactamase (ESBL) producing Escherichia coli Surgical History Coronary artery bypass grafting (Unknown) [place] [place] VARGHESE to LAD SVG's to diagonal, obtuse marginal, RCA " History of colonoscopy with polypectomy History of cystoscopy History of tubal ligation Implantation of aortic valve prosthesis or synthetic device (Unknown) Placement of stent in coronary artery (Unknown) "[facility] December 2006 " Status post transcatheter aortic valve replacement (TAVR) using bioprosthesis Stented coronary artery (Unknown) Total abdominal hysterectomy with bilateral salpingo-oophorectomy (Unknown) Family History Father Prostate cancer Mother Diabetes Sister Coronary heart disease Social History Smoking Status: Never smoker Second Hand Exposure: No; Do You Dip or Chew Tobacco: No; Hx Alcohol Use: No Hx Substance Use: No Preferred Language: Burmese Communication Ability: Effective Visual Impairment: No Limitations Hearing Ability: Normal General Studies Program Chair Required: No Beliefs That Will Affect Care: None marital status: / Current Living Situation: Alone Other Information That Helps Us Care for You: No Feels Safe at Home: Yes Safety Concerns: Feels Safe At This Time Assistive Devices: Hearing Aid - Bilateral and Walker Allergies Allergies Allergy/AdvReac Type Severity Reaction Status Date / Time iodine Allergy Intermediate itching Verified 01/29/23 19:52 amiodarone Allergy Mild UNSURE Verified 01/29/23 19:52 etodolac Allergy Mild Unknown Verified 01/29/23 19:52 Sulfa (Sulfonamide Allergy Mild Unknown Verified 01/29/23 19:52 Antibiotics) gabapentin AdvReac Mild sedation Verified 01/29/23 19:52 Penicillins AdvReac Mild YEAST INF Verified 01/29/23 19:52 simvastatin AdvReac Unknown CAN'T Verified 01/29/23 19:52 REMEMBER Home Meds Home Medications Medication Instructions Recorded Confirmed Azelastine [place] 1 spray intranasal BID PRN Nasal 01/29/23 01/29/23 Congestion aspirin 81 mg chewable tablet 81 mg PO DAILY 01/29/23 01/29/23 calcium carbonate 600 mg-vitamin 1 tab PO DAILY 01/29/23 01/29/23 D3 20 mcg (800 unit) tablet (Caltrate with Vitamin D3) camphor-menthol 0.2 %-3.5 % 1 applic topical BID PRN Pain 01/29/23 01/29/23 topical gel clindamycin HCl 300 mg capsule 600 mg PO DIRECTED 01/29/23 01/29/23 diphenhydramine HCl 25 mg tablet 25 mg PO Q4 PRN allergies 01/29/23 01/29/23 (Benadryl Allergy) fexofenadine 180 mg tablet 180 mg PO DAILY PRN allergies 01/29/23 01/29/23 (Lizzette Allergy) hydroxyurea 500 mg capsule 500 mg PO UD 01/29/23 01/29/23 ipratropium bromide 21 mcg (0.03 2 spray intranasal BID PRN 01/29/23 01/29/23 %) nasal spray .rhinitis lorazepam 0.5 mg tablet 0.5 mg PO Q8 PRN Anxiety 01/29/23 01/29/23 magnesium oxide 400 mg PO DAILY 01/29/23 01/29/23 metoprolol succinate 100 mg 150 mg PO AMHS 01/29/23 01/29/23 tablet,extended release 24 hr mometasone 50 mcg/actuation nasal 2 spray intranasal QAM 01/29/23 01/29/23 spray nitrofurantoin macrocrystal 100 mg 100 mg PO HS 01/29/23 01/29/23 capsule nitroglycerin 0.4 mg sublingual 0.4 mg sublingual DIRECTED PRN 01/29/23 01/29/23 tablet (Nitrostat) Chest Pain pantoprazole 40 mg tablet,delayed 40 mg PO QAM 01/29/23 01/29/23 release rosuvastatin 10 mg tablet 10 mg PO QPM 01/29/23 01/29/23 spironolactone 25 mg tablet 12.5 mg PO DAILY 01/29/23 01/29/23 torsemide 20 mg tablet 20 mg PO UD 01/29/23 01/29/23 warfarin 2.5 mg tablet 1.25 mg PO .6DAYWEEK 01/29/23 01/29/23 Previous Rx's Medication Instructions Recorded L.acidop,casei,lactis,rham-B.lact,pito 2 cap PO DAILY #10 caps 02/02/23 625 mg (10 billion cell) capsule (Advanced Probiotic) amoxicillin 500 mg-potassium 1 tab PO BID #5 tabs 02/02/23 clavulanate 125 mg tablet Results & Data (ED) Vital Signs Vital Signs - 24 hr 05/02/23 18:43 05/02/23 18:32 05/02/23 18:54 Temperature 37.2 C Temperature Source Oral Pulse Rate 96 H Pulse Rate from SpO2 Sensor Respiratory Rate 19 Respiratory Effort / Characteristics Non-Labored Spontaneous Respiratory Depth Normal Normal Blood Pressure 132/88 Blood Pressure Mean 102 Pulse Oximetry 91 91 Oxygen Delivery Method Room Air Nasal Cannula Oxygen Flow Rate 2 Sepsis Recent Fever Within 48 Hours No Sepsis New/Unexplained Change in Mental Status No Sepsis Action Taken by Nursing No Action Required Pulse Oximetry Post Tiitration 100 05/02/23 18:50 05/02/23 18:50 05/02/23 19:00 Temperature Temperature Source Pulse Rate 82 84 91 H Pulse Rate from SpO2 Sensor 84 Respiratory Rate 23 17 Respiratory Effort / Characteristics Respiratory Depth Blood Pressure 132/88 133/100 Blood Pressure Mean 102 111 Pulse Oximetry 100 Oxygen Delivery Method Oxygen Flow Rate Sepsis Recent Fever Within 48 Hours Sepsis New/Unexplained Change in Mental Status Sepsis Action Taken by Nursing Pulse Oximetry Post Tiitration 05/02/23 19:30 05/02/23 20:00 05/02/23 20:26 Temperature Temperature Source Pulse Rate 87 76 79 Pulse Rate from SpO2 Sensor 77 81 79 Respiratory Rate 22 18 17 Respiratory Effort / Characteristics Respiratory Depth Blood Pressure 135/81 125/86 120/82 Blood Pressure Mean 99 99 94 Pulse Oximetry 99 99 96 Oxygen Delivery Method Oxygen Flow Rate Sepsis Recent Fever Within 48 Hours Sepsis New/Unexplained Change in Mental Status Sepsis Action Taken by Nursing Pulse Oximetry Post Tiitration 05/02/23 21:00 05/02/23 21:02 05/02/23 21:12 Temperature Temperature Source Pulse Rate 80 80 80 Pulse Rate from SpO2 Sensor 86 85 81 Respiratory Rate 30 H 12 19 Respiratory Effort / Characteristics Respiratory Depth Blood Pressure 114/90 Blood Pressure Mean 98 Pulse Oximetry 100 98 100 Oxygen Delivery Method Oxygen Flow Rate Sepsis Recent Fever Within 48 Hours Sepsis New/Unexplained Change in Mental Status Sepsis Action Taken by Nursing Pulse Oximetry Post Tiitration 05/02/23 21:30 05/02/23 22:00 05/02/23 22:30 Temperature Temperature Source Pulse Rate 80 79 76 Pulse Rate from SpO2 Sensor 79 82 79 Respiratory Rate 31 H 19 16 Respiratory Effort / Characteristics Respiratory Depth Blood Pressure 156/105 H Blood Pressure Mean 122 Pulse Oximetry 99 98 99 Oxygen Delivery Method Oxygen Flow Rate Sepsis Recent Fever Within 48 Hours Sepsis New/Unexplained Change in Mental Status Sepsis Action Taken by Nursing Pulse Oximetry Post Tiitration 05/02/23 23:00 Temperature Temperature Source Pulse Rate 80 Pulse Rate from SpO2 Sensor 83 Respiratory Rate 20 Respiratory Effort / Characteristics Respiratory Depth Blood Pressure Blood Pressure Mean Pulse Oximetry 100 Oxygen Delivery Method Oxygen Flow Rate Sepsis Recent Fever Within 48 Hours Sepsis New/Unexplained Change in Mental Status Sepsis Action Taken by Nursing Pulse Oximetry Post Tiitration Laboratory Data 05/02/23 19:28 05/02/23 19:28 Lab Results 05/02/23 05/02/23 05/02/23 Range/Units 19:28 19:28 19:28 WBC 6.23 (4.8-10.8) K/ul RBC 2.98 L (4.20-5.40) M/uL Hgb 10.3 L (12.0-16.0) g/dl Hct 32.6 L (37.0-47.0) % MCV 109.4 H (80.0-100.0) fL MCH 34.6 H (25.0-34.0) pg MCHC 31.6 L (32.0-36.0) g/dL RDW Std Deviation 61.4 H (36.4-46.3) fL RDW Coeff of Ge 15.4 H (11.5-14.5) % Plt Count 247 (130-400) K/uL MPV 10.9 (9.4-12.4) fL Immature Gran % (Auto) 0.5 % Neut % (Auto) 70.5 % Lymph % (Auto) 10.9 % [place]ett % (Auto) 14.1 % Eos % (Auto) 3.4 % Baso % (Auto) 0.6 % Neut # (Auto) 4.39 (1.40-6.50) K/uL Lymph # (Auto) 0.68 L (1.2-3.4) K/uL [place] # (Auto) 0.88 H (0.11-0.59) K/uL Eos # (Auto) 0.21 (0-0.50) K/uL Baso # (Auto) 0.04 (0-0.2) K/uL Immature Gran # (Auto) 0.03 (0.01-0.20) K/uL PT 17.1 H (9.0-12.0) Seconds INR 1.6 H (0.9-1.1) APTT (21.0-31.0) Seconds PTT Ratio Sodium 137 (136-145) mmol/L Potassium 3.4 L (3.5-5.1) mmol/L Chloride 100 (98-107) mmol/L Carbon Dioxide 30 (21-32) mmol/L Anion Gap 7 (3-11) BUN 34 H (6-23) mg/dl Creatinine 1.27 H (0.6-1.2) mg/dl Est Cr Clr Drug Dosing 29.2 ml/min Est GFR ( Amer) 43.9 ml/min Est GFR (Non-Af Amer) 37.9 ml/min BUN/Creatinine Ratio 26.8 H (10-20) Glucose 130 H (70-99(Fasting)) mg/dl Calcium 8.6 (8.6-10.3) mg/dl Magnesium 1.8 (1.7-2.4) mg/dl Total Bilirubin 1.0 (0.2-1.0) mg/dl AST 46 H (13-39) U/L ALT 14 (7-52) U/L Alkaline Phosphatase 80 (34-104) U/L Troponin I High Sens 5396.5 H* (0-14) pg/ml B-Natriuretic Peptide (0-100) pg/ml Total Protein 7.1 (6.0-8.3) gm/dl Albumin 3.8 (3.4-5.0) gm/dl Globulin 3.3 (2.5-4.0) gm/dl Albumin/Globulin Ratio 1.2 (0.9-2) Lipase 60 (11-82) U/L TSH (0.300-4.500) uIu/ml SARS-CoV-2 (PCR) (Negative) Influenza Type A (PCR) (Neg) Influenza Type B (PCR) (Neg) RSV (RT-PCR) (Neg) 05/02/23 05/02/23 05/02/23 Range/Units 19:28 19:28 20:38 WBC (4.8-10.8) K/ul RBC (4.20-5.40) M/uL Hgb (12.0-16.0) g/dl Hct (37.0-47.0) % MCV (80.0-100.0) fL MCH (25.0-34.0) pg MCHC (32.0-36.0) g/dL RDW Std Deviation (36.4-46.3) fL RDW Coeff of Ge (11.5-14.5) % Plt Count (130-400) K/uL MPV (9.4-12.4) fL Immature Gran % (Auto) % Neut % (Auto) % Lymph % (Auto) % [place] % (Auto) % Eos % (Auto) % Baso % (Auto) % Neut # (Auto) (1.40-6.50) K/uL Lymph # (Auto) (1.2-3.4) K/uL [place] # (Auto) (0.11-0.59) K/uL Eos # (Auto) (0-0.50) K/uL Baso # (Auto) (0-0.2) K/uL Immature Gran # (Auto) (0.01-0.20) K/uL PT (9.0-12.0) Seconds INR (0.9-1.1) APTT 31.8 H (21.0-31.0) Seconds PTT Ratio 1.1 Sodium (136-145) mmol/L Potassium (3.5-5.1) mmol/L Chloride (98-107) mmol/L Carbon Dioxide (21-32) mmol/L Anion Gap (3-11) BUN (6-23) mg/dl Creatinine (0.6-1.2) mg/dl Est Cr Clr Drug Dosing ml/min Est GFR ( Amer) ml/min Est GFR (Non-Af Amer) ml/min BUN/Creatinine Ratio (10-20) Glucose (70-99(Fasting)) mg/dl Calcium (8.6-10.3) mg/dl Magnesium (1.7-2.4) mg/dl Total Bilirubin (0.2-1.0) mg/dl AST (13-39) U/L ALT (7-52) U/L Alkaline Phosphatase (34-104) U/L Troponin I High Sens (0-14) pg/ml B-Natriuretic Peptide 265 H (0-100) pg/ml Total Protein (6.0-8.3) gm/dl Albumin (3.4-5.0) gm/dl Globulin (2.5-4.0) gm/dl Albumin/Globulin Ratio (0.9-2) Lipase (11-82) U/L TSH 4.140 (0.300-4.500) uIu/ml SARS-CoV-2 (PCR) (Negative) Influenza Type A (PCR) (Neg) Influenza Type B (PCR) (Neg) RSV (RT-PCR) (Neg) 05/02/23 05/02/23 Range/Units 21:50 22:59 WBC (4.8-10.8) K/ul RBC (4.20-5.40) M/uL Hgb (12.0-16.0) g/dl Hct (37.0-47.0) % MCV (80.0-100.0) fL MCH (25.0-34.0) pg MCHC (32.0-36.0) g/dL RDW Std Deviation (36.4-46.3) fL RDW Coeff of Ge (11.5-14.5) % Plt Count (130-400) K/uL MPV (9.4-12.4) fL Immature Gran % (Auto) % Neut % (Auto) % Lymph % (Auto) % [place] % (Auto) % Eos % (Auto) % Baso % (Auto) % Neut # (Auto) (1.40-6.50) K/uL Lymph # (Auto) (1.2-3.4) K/uL [place] # (Auto) (0.11-0.59) K/uL Eos # (Auto) (0-0.50) K/uL Baso # (Auto) (0-0.2) K/uL Immature Gran # (Auto) (0.01-0.20) K/uL PT (9.0-12.0) Seconds INR (0.9-1.1) APTT (21.0-31.0) Seconds PTT Ratio Sodium (136-145) mmol/L Potassium (3.5-5.1) mmol/L Chloride (98-107) mmol/L Carbon Dioxide (21-32) mmol/L Anion Gap (3-11) BUN (6-23) mg/dl Creatinine (0.6-1.2) mg/dl Est Cr Clr Drug Dosing ml/min Est GFR ( Amer) ml/min Est GFR (Non-Af Amer) ml/min BUN/Creatinine Ratio (10-20) Glucose (70-99(Fasting)) mg/dl Calcium (8.6-10.3) mg/dl Magnesium (1.7-2.4) mg/dl Total Bilirubin (0.2-1.0) mg/dl AST (13-39) U/L ALT (7-52) U/L Alkaline Phosphatase (34-104) U/L Troponin I High Sens 94412.6 H* D (0-14) pg/ml B-Natriuretic Peptide (0-100) pg/ml Total Protein (6.0-8.3) gm/dl Albumin (3.4-5.0) gm/dl Globulin (2.5-4.0) gm/dl Albumin/Globulin Ratio (0.9-2) Lipase (11-82) U/L TSH (0.300-4.500) uIu/ml SARS-CoV-2 (PCR) NEGATIVE (Negative) Influenza Type A (PCR) Negative (Neg) Influenza Type B (PCR) Negative (Neg) RSV (RT-PCR) Negative (Neg) Administered Medications Heparin Sodium/Dextrose (Heparin Sodium/Dextrose) 25,000 units in 500 mls @ 14 mls/hr IV .Q24H DYLAN; Protocol Stop: 06/01/23 20:59 Last Admin: 05/02/23 21:46 Dose: 700 units/hr, 14 mls/hr Documented By: WILLIS Co-signed By: MATILDE Nitroglycerin (Nitroglycerin 2% Ointment 30gm Tube) 0.5 inch EXT Q6H DYLAN Stop: 06/02/23 01:59 Last Admin: 05/03/23 01:20 Dose: 0.5 inch Documented By: TENA Discontinued Medications Heparin Sodium/Dextrose (Heparin Iv Adult Wt-Based Low-Dose *No* Bolus Protocol) 1 each IV ONE ONE; Protocol Stop: 05/02/23 20:49 Last Admin: 05/03/23 00:58 Dose: 1 each Documented By: TENA Acetaminophen (Ofirmev) 1,000 mg in 100 mls @ 400 mls/hr IV NOW STA Stop: 05/02/23 21:07 Last Infusion: 05/02/23 22:08 Dose: 0 mls/hr Documented By: Admin: 05/02/23 21:21 Dose: 400 mls/hr Documented By: WILLIS Famotidine (Pepcid 20mg Iv Push) 20 mg in 5 mls @ 2.5 mls/min IV NOW STA Stop: 05/02/23 20:54 Last Admin: 05/02/23 21:21 Dose: 2.5 mls/min Documented By: WILLIS Metoprolol Tartrate (Metoprolol Tartrate 1 Mg/Ml Vial) 2.5 mg IV NOW STA Stop: 05/03/23 01:45 Last Admin: 05/03/23 02:17 Dose: 2.5 mg Documented By: TENA Nitroglycerin (Nitroglycerin 2% Ointment 30gm Tube) 1 inch EXT NOW STA Stop: 05/02/23 19:15 Last Admin: 05/02/23 19:26 Dose: 1 inch Documented By: WILLIS Potassium Chloride (Potassium Chloride Crtab 20 Meq Tabcr) 20 meq PO NOW STA Stop: 05/02/23 00:04 Last Admin: 05/03/23 01:15 Dose: 20 meq Documented By: TENA Discharge Plan Visit Data Chief Complaint: Chest Pain ED Provider: Paola Street Discharge Problem: Chest pain Patient Disposition: Admitted As Inpatient Discharge Instructions Interventions: ED Discharge Assessment Last Done: 05/03/23 01:08
[2023-05-02 20:03] LABS: Albumin Globulin Ratio 1.2 (0.9-2); Albumin Level 3.8 gm/dl (3.4-5.0); BUN Creatinine Ratio 26.8 (10-20); Calcium 8.6 mg/dl (8.6-10.3); Creatinine Clr Calc Pharmacy 29.2 ml/min; Est GFR (African American) 43.9 ml/min; Est GFR (Non-African American) 37.9 ml/min; Globulin 3.3 gm/dl (2.5-4.0); Magnesium 1.8 mg/dl (1.7-2.4); Potassium 3.4 mmol/L (3.5-5.1); Total Protein 7.1 gm/dl (6.0-8.3)
[2023-05-02 20:12] LABS: Troponin I High Sensitivity 5396.5 pg/ml (0-14)
[2023-05-02 20:37] LABS: INR 1.6 (0.9-1.1); Prothrombin Time 17.1 Seconds (9.0-12.0)
[2023-05-02] MEDS ORDERED: Heparin IV Adult Wt-Based Low-Dose *NO* Bolus Protocol IV ONE (20:48)
[2023-05-02] MEDS ORDERED: ACETAMINOPHEN 1,000 MG/100 ML VIAL IV STA (20:53)
[2023-05-02] MEDS ORDERED: FAMOTIDINE 20MG IV PUSH 20 MG/5 ML SYR IV STA (20:53)
[2023-05-02] MEDS: HEPARIN SODIUM/DEXTROSE 25,000 UNITS/500 ML BAG IV SCH (21:46)
[2023-05-02 21:57] LABS: Partial Thromboplastin Ratio 1.1; Partial Thromboplastin Time 31.8 Seconds (21.0-31.0)
[2023-05-02 23:11] LABS: Influenza A virus by PCR Negative (Neg); Influenza B virus by PCR Negative (Neg); RSV by PCR Negative (Neg); SARS CoV2 RNA(COVID-19) Ceph NEGATIVE (Negative)
--- NOTE | 2023-05-02 23:24 | History & Physical Report ---
Date of Service May 02, 2023 Assessment & Plan (1) NSTEMI (non-ST elevated myocardial infarction): Plan: 88-year-old female with history of CAD s/p stent presents with chest pain and found to elevated troponin. Non-ST elevated MN Presents with chest pain Troponin elevated at 5396 And Nitropaste which will continue Currently chest pain resolved and hemodynamically stable On Coumadin but INR 1.6 Start on low-dose IV heparin We will follow serial cardiac enzymes and echocardiogram We will keep her n.p.o. Close monitoring telemetry floor Cardiology consulted in a.m. for further recommendations. History of CAD s/p stent On aspirin, statin and beta-buddy Hypertension On metoprolol succinate currently on Nitropaste We will monitor the blood pressure Hyperlipidemia On statin S/p bioprosthetic aortic valve replacement. Sinus node dysfunction s/p pacemaker History of proximal atrial fibrillation On metoprolol succinate and Coumadin INR subtherapeutic currently on heparin Obstructive sleep apnea Chronic hypoxic respiratory failure On home oxygen Chronic heart failure with preserved ejection fraction On torsemide and spironolactone which be continued Will monitor for volume overload History of essential thrombocythemia On hydroxyurea Chronic kidney disease stage III Plan with creatinine 1.27 We will follow the labs DVT prophylaxis On IV heparin Disposition Close monitoring telemetry floor CODE STATUS full code if chance of recovery as per patient History of Present Illness Chief Complaint: Chest pain Primary Care Provider: Yaya Frederick MD This is a 88-year-old female with past medical history significant for CAD s/p stent s/p bioprosthetic aortic valve replacement, restless leg syndrome, asymptomatic bilateral carotid artery stenosis, hypertension, hyperlipidemia, sinus node dysfunction, s/p cardiac pacemaker, paroxysmal atrial fibrillation, essential thrombocythemia, bilateral leg edema, obstructive sleep apnea on home oxygen, chronic kidney disease stage III, chronic hypoxic respiratory failure, chronic heart failure with preserved ejection fraction. Saw cardiology recently and diuretic doses were adjusted. Patient lives alone at home and ambulates with walker, son lives close by. Today at around 530 to 6 PM when she was eating her dinner with baked potato she felt chest pain 9 /0 in severity, no radiation. She took 2 nitros but did not help the pain. The pain lasted about 2 hours. Currently on Nitropaste. Currently chest pain resolved. Denies any nausea or dizziness. In the ER when she went to bathroom and came back she was exhausted and felt short of breath. Denies any headache. Hard of hearing. No runny nose or sore throat or cough. No fevers. Appetite is down last 2 days. No abdominal pain. Normal bowel and bladder movements. Currently resting comfortably and hemodynamic stable. Allergies Allergy/AdvReac Type Severity Reaction Status Date / Time iodine Allergy Intermediate itching Verified 01/29/23 19:52 amiodarone Allergy Mild UNSURE Verified 01/29/23 19:52 etodolac Allergy Mild Unknown Verified 01/29/23 19:52 Sulfa (Sulfonamide Allergy Mild Unknown Verified 01/29/23 19:52 Antibiotics) gabapentin AdvReac Mild sedation Verified 01/29/23 19:52 Penicillins AdvReac Mild YEAST INF Verified 01/29/23 19:52 simvastatin AdvReac Unknown CAN'T Verified 01/29/23 19:52 REMEMBER Home Medications Medication Instructions Recorded Confirmed Type Azelastine [place] 1 spray intranasal BID PRN Nasal 01/29/23 01/29/23 History Congestion aspirin 81 mg chewable tablet 81 mg PO DAILY 01/29/23 01/29/23 History calcium carbonate 600 mg-vitamin 1 tab PO DAILY 01/29/23 01/29/23 History D3 20 mcg (800 unit) tablet (Caltrate with Vitamin D3) camphor-menthol 0.2 %-3.5 % 1 applic topical BID PRN Pain 01/29/23 01/29/23 History topical gel clindamycin HCl 300 mg capsule 600 mg PO DIRECTED 01/29/23 01/29/23 History diphenhydramine HCl 25 mg tablet 25 mg PO Q4 PRN allergies 01/29/23 01/29/23 History (Benadryl Allergy) fexofenadine 180 mg tablet 180 mg PO DAILY PRN allergies 01/29/23 01/29/23 History (Lizzette Allergy) hydroxyurea 500 mg capsule 500 mg PO UD 01/29/23 01/29/23 History ipratropium bromide 21 mcg (0.03 2 spray intranasal BID PRN 01/29/23 01/29/23 History %) nasal spray .rhinitis lorazepam 0.5 mg tablet 0.5 mg PO Q8 PRN Anxiety 01/29/23 01/29/23 History magnesium oxide 400 mg PO DAILY 01/29/23 01/29/23 History metoprolol succinate 100 mg 150 mg PO AMHS 01/29/23 01/29/23 History tablet,extended release 24 hr mometasone 50 mcg/actuation nasal 2 spray intranasal QAM 01/29/23 01/29/23 History spray nitrofurantoin macrocrystal 100 mg 100 mg PO HS 01/29/23 01/29/23 History capsule nitroglycerin 0.4 mg sublingual 0.4 mg sublingual DIRECTED PRN 01/29/23 01/29/23 History tablet (Nitrostat) Chest Pain pantoprazole 40 mg tablet,delayed 40 mg PO QAM 01/29/23 01/29/23 History release rosuvastatin 10 mg tablet 10 mg PO QPM 01/29/23 01/29/23 History spironolactone 25 mg tablet 12.5 mg PO DAILY 01/29/23 01/29/23 History torsemide 20 mg tablet 20 mg PO UD 01/29/23 01/29/23 History warfarin 2.5 mg tablet 1.25 mg PO .6DAYWEEK 01/29/23 01/29/23 History L.acidop,casei,lactis,rham-B.lact,pito 2 cap PO DAILY #10 caps 02/02/23 Rx 625 mg (10 billion cell) capsule (Advanced Probiotic) amoxicillin 500 mg-potassium 1 tab PO BID #5 tabs 02/02/23 Rx clavulanate 125 mg tablet Past Med/Surg History Medical History Anemia ASCVD (arteriosclerotic cardiovascular disease) 2006 - CABG x 3, bioproesthetic aortic valve replacement 2007 - PCI and stenting to SVG to RCA occlusion Atrial fibrillation, persistent Cardiac pacemaker in situ Carotid artery occlusion (Unknown) Chronic diastolic CHF (congestive heart failure) CKD (chronic kidney disease) stage 2, GFR 60-89 ml/min CKD (chronic kidney disease), stage III 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 Dermatitis Essential thrombocythemia Generalized weakness HLD (hyperlipidemia) HTN (hypertension) Replacement of aortic valve (Unknown) "[facility] [place] 2005 Mary-Good " Sensorineural hearing loss of both ears Sinus node dysfunction 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 UTI due to extended-spectrum beta lactamase (ESBL) producing Escherichia coli Surgical History Coronary artery bypass grafting (Unknown) "[facility] [place] April 2006 VARGHESE to LAD SVG's to diagonal, obtuse marginal, RCA " History of colonoscopy with polypectomy History of cystoscopy History of tubal ligation Implantation of aortic valve prosthesis or synthetic device (Unknown) Placement of stent in coronary artery (Unknown) "RCA December 2006 " Status post transcatheter aortic valve replacement (TAVR) using bioprosthesis Stented coronary artery (Unknown) Total abdominal hysterectomy with bilateral salpingo-oophorectomy (Unknown) Family History Father Prostate cancer Mother Diabetes Sister Coronary heart disease Social History Smoking Status: Never smoker Second Hand Exposure: No; Do You Dip or Chew Tobacco: No; Hx Alcohol Use: No Hx Substance Use: No Preferred Language: Spanish Communication Ability: Effective Visual Impairment: No Limitations Hearing Ability: Normal Pest Control Chemical Technician Required: No Beliefs That Will Affect Care: None marital status: / Current Living Situation: Alone Feels Safe at Home: Yes Assistive Devices: Cane, Scooter/Electric Scooter and Wheelchair Review of Systems Review of Systems: All systems reviewed & are unremarkable except as noted in Subjective Physical Exam Physical Exam: NEEDS EDITING General- adult Head- atraumatic Eyes- PERRL, ENT- oropharynx clear Neck- supple, no JVD, Lungs- clear to auscultation and percussion Heart- regular rhythm; no murmur, no gallop, no rub appreciated Abdomen- normal bowel sounds, soft, nontender, no masses or hepatosplenomegaly Extremities- mild pretibial edema present, no erythema seen Neuro- alert, oriented x 3; PERRL, EOMI; no facial palsy; no dysarthria; non focal. Skin- warm & dry Results & Data Results & Data Vital Signs (Past 12 Hours) Vital Signs Temp Pulse Resp BP Pulse Ox O2 Del Method O2 Flow Rate 05/02/23 23:00 80 20 100 05/02/23 22:30 76 16 99 05/02/23 22:00 79 19 156/105 H 98 05/02/23 21:30 80 31 H 99 05/02/23 21:12 80 19 114/90 100 05/02/23 21:02 80 12 98 05/02/23 21:00 80 30 H 100 05/02/23 20:26 79 17 120/82 96 05/02/23 20:00 76 18 125/86 99 05/02/23 19:30 87 22 135/81 99 05/02/23 19:00 91 H 17 133/100 100 05/02/23 18:50 84 23 132/88 05/02/23 18:50 82 05/02/23 18:54 91 Nasal Cannula 2 05/02/23 18:43 37.2 C 96 H 19 132/88 91 Room Air Diagnostic Findings Laboratory Results WBC 6.23 K/ul (4.8-10.8) 05/02/23 19:28 RBC 2.98 M/uL (4.20-5.40) L 05/02/23 19:28 Hgb 10.3 g/dl (12.0-16.0) L 05/02/23 19:28 Hct 32.6 % (37.0-47.0) L 05/02/23 19:28 MCV 109.4 fL (80.0-100.0) H 05/02/23 19:28 MCH 34.6 pg (25.0-34.0) H 05/02/23 19:28 MCHC 31.6 g/dL (32.0-36.0) L 05/02/23 19:28 RDW Std Deviation 61.4 fL (36.4-46.3) H 05/02/23 19:28 RDW Coeff of Ge 15.4 % (11.5-14.5) H 05/02/23 19:28 Plt Count 247 K/uL (130-400) 05/02/23 19:28 MPV 10.9 fL (9.4-12.4) 05/02/23 19:28 Immature Gran % (Auto) 0.5 % 05/02/23 19:28 Neut % (Auto) 70.5 % 05/02/23 19:28 Lymph % (Auto) 10.9 % 05/02/23 19:28 [place] % (Auto) 14.1 % 05/02/23 19:28 Eos % (Auto) 3.4 % 05/02/23 19:28 Baso % (Auto) 0.6 % 05/02/23 19: Neut # (Auto) 4.39 K/uL (1.40-6.50) 05/02/23 19: Lymph # (Auto) 0.68 K/uL (1.2-3.4) L 05/02/23 19: [place] # (Auto) 0.88 K/uL (0.11-0.59) H 05/02/23 19: Eos # (Auto) 0.21 K/uL (0-0.50) 05/02/23 19: Baso # (Auto) 0.04 K/uL (0-0.2) 05/02/23 19: Immature Gran # (Auto) 0.03 K/uL (0.01-0.20) 05/02/23 19: PT 17.1 Seconds (9.0-12.0) H 05/02/23 19: INR 1.6 (0.9-1.1) H 05/02/23 19: APTT 31.8 Seconds (21.0-31.0) H 05/02/23 19: PTT Ratio 1.1 05/02/23 19: Sodium 137 mmol/L (136-145) 05/02/23 19: Potassium 3.4 mmol/L (3.5-5.1) L 05/02/23 19: Chloride 100 mmol/L (98-107) 05/02/23 19: Carbon Dioxide 30 mmol/L (21-32) 05/02/23 19: Anion Gap 7 (3-11) 05/02/23 19: BUN 34 mg/dl (6-23) H 05/02/23 19: Creatinine 1.27 mg/dl (0.6-1.2) H 05/02/23 19: Est Cr Clr Drug Dosing 29.2 ml/min 05/02/23 19:28 Est GFR ( Amer) 43.9 ml/min 05/02/23 19: Est GFR (Non-Af Amer) 37.9 ml/min 05/02/23 19: BUN/Creatinine Ratio 26.8 (10-20) H 05/02/23 19:28 Glucose 130 mg/dl (70-99(Fasting)) H 05/02/23 19:28 Calcium 8.6 mg/dl (8.6-10.3) 05/02/23 19:28 Magnesium 1.8 mg/dl (1.7-2.4) 05/02/23 19:28 Total Bilirubin 1.0 mg/dl (0.2-1.0) 05/02/23 19:28 AST 46 U/L (13-39) H 05/02/23 19:28 ALT 14 U/L (7-52) 05/02/23 19:28 Alkaline Phosphatase 80 U/L (34-104) 05/02/23 19:28 Troponin I High Sens 5396.5 pg/ml (0-14) H* 05/02/23 19:28 B-Natriuretic Peptide 265 pg/ml (0-100) H 05/02/23 20:38 Total Protein 7.1 gm/dl (6.0-8.3) 05/02/23 19:28 Albumin 3.8 gm/dl (3.4-5.0) 05/02/23 19:28 Globulin 3.3 gm/dl (2.5-4.0) 05/02/23 19:28 Albumin/Globulin Ratio 1.2 (0.9-2) 05/02/23 19:28 Lipase 60 U/L (11-82) 05/02/23 19:28 TSH 4.140 uIu/ml (0.300-4.500) 05/02/23 19:28 SARS-CoV-2 (PCR) NEGATIVE (Negative) 05/02/23 21:50 Influenza Type A (PCR) Negative (Neg) 05/02/23 21:50 Influenza Type B (PCR) Negative (Neg) 05/02/23 21:50 RSV (RT-PCR) Negative (Neg) 05/02/23 21:50 ECG Additional Comments: ECG undetermined rhythm with rate of 92, right bundle branch block, T wave inversions in lateral leads. Code Status & VTE Plan VTE Prophylaxis Plan VTE Prophylaxis will be ordered: Yes
[2023-05-03] MEDS ORDERED: ACETAMINOPHEN 325 MG TAB PO PRN (00:53)
[2023-05-03] MEDS ORDERED: POLYETHYLENE (MIRALAX) 17 GM PACK PO PRN (00:53)
[2023-05-03] MEDS ORDERED: NITROGLYCERIN SL 0.4 MG/TAB TAB SL PRN ×2 (00:53)
[2023-05-03] MEDS: NITROGLYCERIN 2% OINTMENT 30GM TUBE EXT SCH ×4 (01:20→20:26)
[2023-05-03] MEDS ORDERED: METOPROLOL TARTRATE 1 MG/ML VIAL IV STA (01:44)
[2023-05-03 02:05] LABS: Basophils # (auto) 0.04 K/uL (0-0.2); Basophils % (auto) 0.6 %; Eosinophils # (auto) 0.22 K/uL (0-0.50); Eosinophils % (auto) 3.3 %; Hematocrit (blood only) 32.4 % (37.0-47.0); Hemoglobin 10.2 g/dl (12.0-16.0); Immature Granulocytes # (auto) 0.02 K/uL (0.01-0.20); Immature Granulocytes % (auto) 0.3 %; Lymphocytes # (auto) 0.81 K/uL (1.2-3.4); Lymphocytes % (auto) 12.1 %; Mean Corpuscular Hemoglobin 34.3 pg (25.0-34.0); Mean Corpuscular Hgb Conc 31.5 g/dL (32.0-36.0); Mean Corpuscular Volume 109.1 fL (80.0-100.0); Mean Platelet Volume 10.9 fL (9.4-12.4); Monocytes # (auto) 0.86 K/uL (0.11-0.59); Monocytes % (auto) 12.8 %; Neutrophils # (auto) 4.75 K/uL (1.40-6.50); Neutrophils % (auto) 70.9 %; Platelet Count 226 K/uL (130-400); RDW Coefficient of Variation 15.2 % (11.5-14.5); Red Blood Count 2.97 M/uL (4.20-5.40)
[2023-05-03 02:13] LABS: BUN Creatinine Ratio 23.7 (10-20); Calcium 8.9 mg/dl (8.6-10.3); Creatinine Clr Calc Pharmacy 24.4 ml/min; Est GFR (African American) 35.4 ml/min; Est GFR (Non-African American) 30.5 ml/min; Magnesium 1.9 mg/dl (1.7-2.4); Potassium 3.6 mmol/L (3.5-5.1)
[2023-05-03 05:28] LABS: INR 1.7 (0.9-1.1); Partial Thromboplastin Ratio 1.8; Prothrombin Time 17.9 Seconds (9.0-12.0)
[2023-05-03 05:37] LABS: Partial Thromboplastin Time 51.9 Seconds (21.0-31.0)
--- NOTE | 2023-05-03 07:44 | XRay Report ---
XR chest 1V portable CLINICAL HISTORY: cp TECHNIQUE: Single frontal radiograph of the chest was obtained. Comparison: Comparison is made to chest radiograph 01/29/2023 FINDINGS: Dual lead pacemaker is seen. Cardiomegaly is noted. The aortic arch is calcified. The lungs are clear . No evidence of pleural effusion or pneumothorax. IMPRESSION: No acute chest disease. ACT 112: Negative or not required by law. Electronically signed by: Pablo Garza M.D. 05/03/2023 7:43 AM
[2023-05-03] MEDS: ASPIRIN 81 MG CHEW PO SCH (08:33)
[2023-05-03] MEDS: METOPROLOL SUCC 50MG EXT REL TAB PO SCH ×2 (08:33→20:26)
[2023-05-03] MEDS: MAGNESIUM OXIDE 400 MG TAB PO SCH (08:33)
[2023-05-03] MEDS: PANTOprazole 40 MG TAB PO SCH (08:34)
[2023-05-03] MEDS ORDERED: TORSEMIDE 20 MG TAB PO SCH (09:00)
[2023-05-03] MEDS ORDERED: SPIRONOLACTONE 12.5 MG TAB PO SCH (09:00)
--- NOTE | 2023-05-03 10:38 | Cardiology Consultation ---
Date of Consultation May 03, 2023 Assessment & Plan (1) NSTEMI (non-ST elevated myocardial infarction): (2) Ischemic cardiomyopathy: (3) Mitral regurgitation: (4) Tricuspid regurgitation: (5) RADHA (acute kidney injury): (6) Chronic heart failure with reduced ejection fraction and diastolic dysfunction: (7) Pacemaker: (8) Chronic atrial fibrillation: Plan Complex 88-year-old female presents with NSTEMI and echocardiographic evidence of inferior, posterior and septal myocardial infarction. Mild LV systolic dysfunction with severe TR, moderate to severe MR, noted on echocardiogram. Currently appears compensated. I had a long conversation with the patient regarding treatment options including conservative medical management versus proceeding with cardiac catheterization and potential intervention. Pain-free and likely has completed her infarct. Case reviewed with interventional cardiology who recommends transfer to tertiary care for further invasive management if needed. The risks versus benefit of procedure were discussed at length. Specifically we discussed risk related to renal insufficiency, procedural risk, and anemia in the setting of chronic 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. Currently, patient prefers to continue conservative medical management. Continue intravenous heparin, aspirin, metoprolol succinate, rosuvastatin, and topical nitrates. Patient will discuss further with her family. Will reassess later today. Addendum:Patient confirms she wants to pursue a conservative medical management approach. History of Present Illness Reason for Consultation: NSTEMI Requesting Physician: Dr. Graff Attending Physician: Josue Avalos MD History of Present Illness 88-year-old female present to the emergency department with chest discomfort. Pain began approximately 6 PM while eating dinner. Described as sharp severe pain in her substernal region. Unrelieved with 2 sublingual nitroglycerin. Proceeded to the ER for further evaluation and treatment. Troponins trending up significantly overnight. Pain subsided at approximately midnight. Currently pain-free this AM. Nausea vomiting, PND, or lower extremity edema. Reports general feeling of unwellness, fatigue, and chills over the past few days. No cough, dysuria, or sick contacts. Preliminary review of bedside echocardiogram demonstrating inferior, posterior, and septal wall motion abnormality with moderate to severe mitral regurgitation, and severe tricuspid regurgitation. Bioprosthetic aortic valve gradients within normal range. Allergies Allergy/AdvReac Type Severity Reaction Status Date / Time iodine Allergy Intermediate itching Verified 01/29/23 19:52 amiodarone Allergy Mild UNSURE Verified 01/29/23 19:52 etodolac Allergy Mild Unknown Verified 01/29/23 19:52 Sulfa (Sulfonamide Allergy Mild Unknown Verified 01/29/23 19:52 Antibiotics) gabapentin AdvReac Mild sedation Verified 01/29/23 19:52 Penicillins AdvReac Mild YEAST INF Verified 01/29/23 19:52 simvastatin AdvReac Unknown CAN'T Verified 01/29/23 19:52 REMEMBER Home Medications Medication Instructions Recorded Confirmed Type Azelastine [place] 1 spray intranasal BID PRN Nasal 01/29/23 01/29/23 History Congestion aspirin 81 mg chewable tablet 81 mg PO DAILY 01/29/23 01/29/23 History calcium carbonate 600 mg-vitamin 1 tab PO DAILY 01/29/23 01/29/23 History D3 20 mcg (800 unit) tablet (Caltrate with Vitamin D3) camphor-menthol 0.2 %-3.5 % 1 applic topical BID PRN Pain 01/29/23 01/29/23 History topical gel clindamycin HCl 300 mg capsule 600 mg PO DIRECTED 01/29/23 01/29/23 History diphenhydramine HCl 25 mg tablet 25 mg PO Q4 PRN allergies 01/29/23 01/29/23 History (Benadryl Allergy) fexofenadine 180 mg tablet 180 mg PO DAILY PRN allergies 01/29/23 01/29/23 History (Lizzette Allergy) hydroxyurea 500 mg capsule 500 mg PO UD 01/29/23 01/29/23 History ipratropium bromide 21 mcg (0.03 2 spray intranasal BID PRN 01/29/23 01/29/23 History %) nasal spray .rhinitis lorazepam 0.5 mg tablet 0.5 mg PO Q8 PRN Anxiety 01/29/23 01/29/23 History magnesium oxide 400 mg PO DAILY 01/29/23 01/29/23 History metoprolol succinate 100 mg 150 mg PO AMHS 01/29/23 01/29/23 History tablet,extended release 24 hr mometasone 50 mcg/actuation nasal 2 spray intranasal QAM 01/29/23 01/29/23 History spray nitrofurantoin macrocrystal 100 mg 100 mg PO HS 01/29/23 01/29/23 History capsule nitroglycerin 0.4 mg sublingual 0.4 mg sublingual DIRECTED PRN 01/29/2301/29 History tablet (Nitrostat) Chest Pain pantoprazole 40 mg tablet,delayed 40 mg PO QAM 01/29/23 01/29/23 History release rosuvastatin 10 mg tablet 10 mg PO QPM 01/29/23 01/29/23 History spironolactone 25 mg tablet 12.5 mg PO DAILY 01/29/23 01/29/23 History torsemide 20 mg tablet 20 mg PO UD 01/29/23 01/29/23 History warfarin 2.5 mg tablet 1.25 mg PO .6DAYWEEK 01/29/23 01/29/23 History L.acidop,casei,lactis,rham-B.lact,pito 2 cap PO DAILY #10 caps 02/02/23 Rx 625 mg (10 billion cell) capsule (Advanced Probiotic) amoxicillin 500 mg-potassium 1 tab PO BID #5 tabs 02/02/23 Rx clavulanate 125 mg tablet Patient History Medical History Anemia ASCVD (arteriosclerotic cardiovascular disease) 2005 - CABG x 3, bioproesthetic aortic valve replacement 2006 - PCI and stenting to SVG to RCA occlusion Atrial fibrillation, persistent Cardiac pacemaker in situ Carotid artery occlusion (Unknown) Chronic diastolic CHF (congestive heart failure) CKD (chronic kidney disease) stage 2, GFR 60-89 ml/min CKD (chronic kidney disease), stage III Current use of halfway 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 Dermatitis Essential thrombocythemia Generalized weakness HLD (hyperlipidemia) HTN (hypertension) [place]placement of aortic valve (Unknown) [place] [place] [facility] " Sensorineural hearing loss of both ears Sinus node dysfunction 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 UTI due to extended-spectrum beta lactamase (ESBL) producing Escherichia coli Surgical History Coronary artery bypass grafting (Unknown) [place] [place] VARGHESE to LAD SVG's to diagonal, obtuse marginal, RCA " History of colonoscopy with polypectomy History of cystoscopy History of tubal ligation Implantation of aortic valve prosthesis or synthetic device (Unknown) Placement of stent in coronary artery (Unknown) "RCA December 2006 " Status post transcatheter aortic valve replacement (TAVR) using bioprosthesis Stented coronary artery (Unknown) Total abdominal hysterectomy with bilateral salpingo-oophorectomy (Unknown) Family History Father Prostate cancer Mother Diabetes Sister Coronary heart disease Social History Smoking Status: Never smoker Second Hand Exposure: No; Do You Dip or Chew Tobacco: No; Hx Alcohol Use: No Hx Substance Use: No Preferred Language: Spanish Communication Ability: Effective Visual Impairment: No Limitations Hearing Ability: Normal Inspector Weights And Measures Required: No Beliefs That Will Affect Care: None marital status: / Current Living Situation: Alone Other Information That Helps Us Care for You: No Feels Safe at Home: Yes Safety Concerns: Feels Safe At This Time Assistive Devices: Hearing Aid - Bilateral and Walker Review of Systems Review of Systems: All systems reviewed & are unremarkable except as noted in Subjective Physical Exam Constitutional: well nourished, + ill appearing and + obese; no acute distress Respiratory: no respiratory distress, no labored breathing and no retractions Auscultation: no crackles, no rales, no rhonchi and no wheezes Cardiovascular: Rate/Rhythm: + irregularly irregular Heart Sounds: normal S1, normal S2 and + murmur (2/6 systolic ejection murmur heard at the base) Vessels: femoral pulses present and radial pulses present; no JVD and no carotid bruit Extremities: + edema (Trace bilateral pedal edema) Gastrointestinal (Abdomen): Inspection/Auscultation: normal bowel sounds; abdomen not distended Percussion/Palpation: abdomen soft; no guarding and abdomen not rigid Neurologic: CN's II-XI intact bilaterally and moves all extremities Psychiatric: A+Ox3, euthymic affect Results & Data Vital Signs (Past 12 Hours) Vital Signs Temp Pulse Pulse Resp BP BP Pulse Ox 05/03/23 08:12 78 05/03/23 07:57 36.4 C L 81 18 144/86 H 100 05/03/23 02:32 78 139/97 05/03/23 02:52 36.3 C L 78 18 139/97 99 05/03/23 02:17 77 121/78 05/03/23 02:07 77 121/78 05/03/23 00:00 05/03/23 01:00 78 05/03/23 01:08 36.4 C L 75 18 132/84 98 05/02/23 23:00 80 20 100 O2 Del Method O2 Flow Rate 05/03/23 08:12 05/03/23 07:57 Nasal Cannula 2 05/03/23 02:32 05/03/23 02:52 Nasal Cannula 2 05/03/23 02:17 05/03/23 02:07 05/03/23 00:00 Nasal Cannula 2 05/03/23 01:00 05/03/23 01:08 Nasal Cannula 2 05/02/23 23:00 Laboratory Results Cardiac Enzymes 05/02/23 05/02/23 05/02/23 Range/Units 19:28 20:38 22:59 AST 46 H (13-39) U/L Troponin I High Sens 5396.5 H* 82692.6 H* D (0-14) pg/ml B-Natriuretic Peptide 265 H (0-100) pg/ml 05/03/23 Range/Units 04:09 AST (13-39) U/L Troponin I High Sens 26105.4 H* D (0-14) pg/ml B-Natriuretic Peptide (0-100) pg/ml Coagulation 05/02/23 05/02/23 05/02/23 Range/Units 19:28 19:28 20:38 PT 17.1 H (9.0-12.0) Seconds APTT 31.8 H (21.0-31.0) Seconds B-Natriuretic Peptide 265 H (0-100) pg/ml 05/03/23 Range/Units 04:09 PT 17.9 H (9.0-12.0) Seconds APTT 51.9 H* (21.0-31.0) Seconds B-Natriuretic Peptide (0-100) pg/ml CBC 05/02/23 05/03/23 Range/Units 19:28 01:38 WBC 6.23 6.70 (4.8-10.8) K/ul RBC 2.98 L 2.97 L (4.20-5.40) M/uL Hgb 10.3 L 10.2 L (12.0-16.0) g/dl Hct 32.6 L 32.4 L (37.0-47.0) % Plt Count 247 226 (130-400) K/uL Neut # (Auto) 4.39 4.75 (1.40-6.50) K/uL Lymph # (Auto) 0.68 L 0.81 L (1.2-3.4) K/uL [place] # (Auto) 0.88 H 0.86 H (0.11-0.59) K/uL Eos # (Auto) 0.21 0.22 (0-0.50) K/uL Baso # (Auto) 0.04 0.04 (0-0.2) K/uL Comprehensive Metabolic Panel 05/02/23 05/03/23 Range/Units 19:28 01:38 Sodium 137 136 (136-145) mmol/L Potassium 3.4 L 3.6 (3.5-5.1) mmol/L Chloride 100 97 L (98-107) mmol/L Carbon Dioxide 30 30 (21-32) mmol/L BUN 34 H 36 H (6-23) mg/dl Creatinine 1.27 H 1.52 H (0.6-1.2) mg/dl Glucose 130 H 120 H (70-99(Fasting)) mg/dl Calcium 8.6 8.9 (8.6-10.3) mg/dl AST 46 H (13-39) U/L ALT 14 (7-52) U/L Alkaline Phosphatase 80 (34-104) U/L Total Protein 7.1 (6.0-8.3) gm/dl Albumin 3.8 (3.4-5.0) gm/dl Intake and Output 05/02/23 05/03/23 05/03/23 22:59 06:59 14:59 Intake Total 100 / 213.867 113.867 / 213.867 Balance 100 / 213.867 113.867 / 213.867 Intake: IV 100 / 213.867 113.867 / 213.867 Acetaminophen 1,000 mg In 100 100 / 100 ml @ 400 mls/hr IV NOW STA Rx#: [id number] Heparin Sodium/Dextrose 25,000 113.867 / 113.867 units In 500 ml @ 700 UNITS/HR 14 mls/hr IV .Q24H DYLAN Rx#: [id number] Other: # Unmeasured Voids 1 1 Weight 83.2 kg 80.7 kg Weight Measurement Method [facility] Built in [facility]
--- NOTE | 2023-05-03 17:28 | Hospitalist Progress Note ---
Date of Service May 03, 2023 Assessment & Plan (1) NSTEMI (non-ST elevated myocardial infarction): Plan: Patient is an 88-year-old female with history of CAD s/p stent presents with chest pain and found to elevated troponin. Non-ST elevated NC Ischemic cardiomyopathy Mitral/tricuspid regurgitation Chronic heart failure with reduced EF and diastolic dysfunction Pacemaker H/O AVR --CXR:No acute chest disease. --ECHO: Left ventricle systolic function is mildly reduced. EF 40 to 45%. Large sized apical, septal, anteroseptal, inferior and posterior wall motion abnormality with hypokinesis to akinesis of the segments. Bioprosthetic aortic valve. Left atrium is moderately dilated. Trivial bioprosthetic aortic valve regurgitation. The gradient is normal for this prosthetic aortic valve. There is moderate to severe mitral regurgitation. Severe tricuspid regurgitation. Estimated systolic pulmonary pressure is 41 mmHg. --Troponin elevated at [id number] Continue IV heparin, Nitropaste Appreciate cardiology input Patient preferred conservative management Continue aspirin, Crestor, metoprolol RADHA on CKD III Cr 1.52 today Diuretics held Avoid nephrotoxic agents as able Monitor renal function H//O CAD s/p stent Continue aspirin, statin and beta-buddy Hypertension Continue metoprolol Monitor BP Hyperlipidemia On statin Sinus node dysfunction s/p pacemaker H/O paroxysmal atrial fibrillation Continue metoprolol succinate Continue IV heparin INR subtherapeutic Resume Coumadin as able Obstructive sleep apnea Chronic hypoxic respiratory failure On home oxygen H/O Essential thrombocythemia On hydroxyurea DVT Px: IV heparin Code Status Full Code for now Admission and Anticipated Discharge Date Admission Date: May 02, 2023 Subjective Patient is seen and examined at bedside Anxious during my encounter as was informed about NC Denies any chest pain, dyspnea, dizziness, nausea, vomiting, abdominal pain during my encounter No other complaints Patient prefers conservative management for NC Review of Systems Review of Systems: All systems reviewed & are unremarkable except as noted in Subjective Physical Exam Physical Exam: Physical Exam: Vitals signs as noted above General Appearance:Obese, no apparent distress, chronic ill appearing Head: normocephalic, Atraumatic Eyes: normal inspection, EOMI Neck: supple, Trachea midline Respiratory/Chest: Normal breath sounds, CTA, No accessory muscle use Cardiovascular: Irregularly irregular, +murmur Abdomen/GI:Soft, Non tender, Bowel sounds present Extremities/Musculoskeletal:normal inspection, 1+ pedal edema Neurologic/Psych:AAOX3, grossly no focal neurological deficits Skin: normal color, warm Results & Data Results & Data Vital Signs (Past 12 Hours) Vital Signs Temp Pulse Pulse Resp BP Pulse Ox O2 Del Method 05/03/23 16:14 88 05/03/23 15:27 36.6 C 95 H 19 125/79 100 Nasal Cannula 05/03/23 10:59 36.6 C 86 19 136/93 100 Nasal Cannula 05/03/23 08:12 78 05/03/23 07:57 36.4 C L 81 18 144/86 H 100 Nasal Cannula O2 Flow Rate 05/03/23 16:14 05/03/23 15:27 2 05/03/23 10:59 2 05/03/23 08:12 05/03/23 07:57 2 Laboratory Results Short CBC 05/02/23 05/03/23 Range/Units 19:28 01:38 WBC 6.23 6.70 (4.8-10.8) K/ul Hgb 10.3 L 10.2 L (12.0-16.0) g/dl Hct 32.6 L 32.4 L (37.0-47.0) % Plt Count 247 226 (130-400) K/uL BMP 05/02/23 05/03/23 19:28 01:38 Sodium 137 136 Potassium 3.4 L 3.6 Chloride 100 97 L Carbon Dioxide 30 30 BUN 34 H 36 H Creatinine 1.27 H 1.52 H Glucose 130 H 120 H Calcium 8.6 8.9 Liver Function 05/02/23 Range/Units 19:28 Total Bilirubin 1.0 (0.2-1.0) mg/dl AST 46 H (13-39) U/L ALT 14 (7-52) U/L Alkaline Phosphatase 80 (34-104) U/L Albumin 3.8 (3.4-5.0) gm/dl
[2023-05-03] MEDS ORDERED: ROSUVASTATIN CALCIUM 10 MG TAB PO SCH (21:00)
[2023-05-04] MEDS: NITROGLYCERIN 2% OINTMENT 30GM TUBE EXT SCH (01:32)
--- NOTE | 2023-05-04 02:59 | Communication Note ---
Date of Service: May 04, 2023 255 AM Patient noted to have trouble getting words out, left facial droop and left sided weakness as per RN. Denies headache symptoms. BSG 150s. Stroke alert called. RN instructed to hold IV heparin and Nitropaste for NSTEMI diagnosis on admission. Symptoms and deficits resolved when patient got to CAT scan as per PCU float RN. PPE Coherent, slightly hard of hearing No dysarthria No facial asymmetry MMTS BUE, BLE 4/5 CT head Mild periventricular white matter low density consistent with chronic small vessel disease and/or senescent changes, unchanged. The brain is otherwise unremarkable. No acute large vessel infarct or intracranial hemorrhage is seen. AP Possible TIA Neurochecks Repeat CT head after 24 hours (MRI precluded by PPM) Carotid Dopplers Decrease Toprol-XL dose from 150 twice daily to 25 twice daily, hold diuretics for now until stroke ruled out to allow for cerebral perfusion Neurology consult Re: TIA Hold IV heparin until patient seen by Neurology. 7:[address] Castillo of Neurology. Okay to resume IV heparin for NSTEMI as per recommendation.
[2023-05-04] MEDS ORDERED: LACTATED RINGER'S 1,000 ML IV ONE (03:02)
[2023-05-04] MEDS ORDERED: MAGNESIUM SULFATE / D5W 1 GM/100 ML BAG IV ONE (03:15)
--- NOTE | 2023-05-04 03:31 | CT Scan Report ---
Exam(s): CT HEAD Without Contrast EXAM: CT Head Without Intravenous Contrast CLINICAL HISTORY: Reason for exam: neuro deficit, acute stroke suspected. TECHNIQUE: Axial computed tomography images of the head/brain without intravenous contrast. Automated exposure control was utilized for the study. A dose lowering technique was utilized adhering to the principles of ALARA. COMPARISON: April 17, 2019 FINDINGS: Brain: Mild periventricular white matter low density consistent with chronic small vessel disease and/or senescent changes, unchanged. The brain is otherwise unremarkable. No acute large vessel infarct or intracranial hemorrhage is seen. Ventricles: Unremarkable. No ventriculomegaly. Bones/joints: Unremarkable. No acute fracture. Soft tissues: Unremarkable. Sinuses: Unremarkable as visualized. No acute sinusitis. Mastoid air cells: Unremarkable as visualized. No mastoid effusion. IMPRESSION: Mild periventricular white matter low density consistent with chronic small vessel disease and/or senescent changes, unchanged. The brain is otherwise unremarkable. No acute large vessel infarct or intracranial hemorrhage is seen. Communications: Call Doctor Stroke Electronically signed by: Andrews Pena MD 05/04/23 03:30 AM
[2023-05-04 03:36] LABS: Basophils # (auto) 0.06 K/uL (0-0.2); Basophils % (auto) 0.9 %; Eosinophils # (auto) 0.26 K/uL (0-0.50); Eosinophils % (auto) 3.8 %; Hematocrit (blood only) 34.1 % (37.0-47.0); Immature Granulocytes # (auto) 0.02 K/uL (0.01-0.20); Immature Granulocytes % (auto) 0.3 %; Lymphocytes # (auto) 0.76 K/uL (1.2-3.4); Lymphocytes % (auto) 11.1 %; Mean Corpuscular Hemoglobin 35.1 pg (25.0-34.0); Mean Corpuscular Hgb Conc 32.3 g/dL (32.0-36.0); Mean Corpuscular Volume 108.9 fL (80.0-100.0); Mean Platelet Volume 11.3 fL (9.4-12.4); Monocytes # (auto) 0.92 K/uL (0.11-0.59); Monocytes % (auto) 13.4 %; Neutrophils # (auto) 4.83 K/uL (1.40-6.50); Neutrophils % (auto) 70.5 %; Platelet Count 258 K/uL (130-400); RDW Coefficient of Variation 15.2 % (11.5-14.5); RDW Standard Deviation 61.8 fL (36.4-46.3); Red Blood Count 3.13 M/uL (4.20-5.40); White Blood Count 6.85 K/ul (4.8-10.8)
[2023-05-04 04:11] LABS: Troponin I High Sensitivity 14732.2 pg/ml (0-14)
[2023-05-04 04:23] LABS: INR 1.8 (0.9-1.1); Partial Thromboplastin Ratio 1.8; Prothrombin Time 18.8 Seconds (9.0-12.0)
[2023-05-04 04:25] LABS: Partial Thromboplastin Time 49.5 Seconds (21.0-31.0)
[2023-05-04 04:51] LABS: Albumin Globulin Ratio 1.1 (0.9-2); Bilirubin,Total 1.2 mg/dl (0.2-1.0); Calcium 9.6 mg/dl (8.6-10.3); Creatinine Clr Calc Pharmacy 26.6 ml/min; Est GFR (African American) 39.1 ml/min; Est GFR (Non-African American) 33.7 ml/min; Globulin 3.7 gm/dl (2.5-4.0); Potassium 4.5 mmol/L (3.5-5.1); Total Protein 7.7 gm/dl (6.0-8.3)
[2023-05-04] MEDS ORDERED: HEPARIN SOD 5,000 UNIT/0.5 ML VIAL SQ SCH (06:00)
--- NOTE | 2023-05-04 07:16 | Ultrasound Report ---
ULTRASOUND OF THE CAROTID ARTERIES CLINICAL HISTORY: tia COMPARISON: None available at the time of this dictation. TECHNIQUE: Real-time, grayscale, and color Doppler sonography of the carotid arteries is performed. I mages are reviewed in the transverse and longitudinal planes. FINDINGS: The carotid arteries are patent bilaterally and demonstrate antegrade flow. There is moderate atheros clerotic plaque on the right and moderate atherosclerotic plaque on the left. Normal doppler arterial waveforms are seen throughout. Velocity measurements are listed below. Common carotid peak systolic velocity (cm/sec): RIGHT: 58 LEFT: 70 ICA peak systolic velocity (cm/sec): RIGHT: 77 LEFT: 101 ICA/CC peak systolic ratio: RIGHT: 1.3 LEFT: 1.4 Antegrade flow was shown in the vertebral arteries. The external carotid arteries are patent. IMPRESSION: 1. There is no sonographic evidence of hemodynamically significant stenosis in the right or left car otid arterial system. Moderate atherosclerotic disease is seen. 2. Antegrade flow is shown in the vertebral arteries. Society of Radiologists in Ultrasound consensus guidelines: Normal: ICA PSV is <125 cm/sec and no plaque or intimal thickening is visible sonographically additional criteria include ICA/CCA PSV ratio <2.0 and ICA EDV <40 cm/sec <50% ICA stenosis: ICA PSV is <125 cm/sec and plaque or intimal thickening is visible sonographically additional criteria include ICA/CCA PSV ratio <2.0 and ICA EDV <40 cm/sec 50-69% ICA stenosis: ICA PSV is 125-230 cm/sec and plaque is visible sonographically additional criteria include ICA/CCA PSV ratio of 2.0-4.0 and ICA EDV of 40-100 cm/sec ?70% ICA stenosis but less than near occlusion: ICA PSV is >230 cm/sec and visible plaque and luminal narrowing are seen at mackenzie-scale and color Dopp ler ultrasound (the higher the Doppler parameters lie above the threshold of 230 cm/sec, the greater the likelihood of severe disease) additional criteria include ICA/CCA PSV ratio >4 and ICA EDV >100 cm/sec ACT 112: Negative or not required by law. Electronically signed by: Pablo Graza M.D. 05/04/2023 7:15 AM
--- NOTE | 2023-05-04 08:28 | Neurology Consultation ---
Date of Consultation May 04, 2023 Assessment & Plan (1) Stroke-like symptoms: Suspect this event was secondary to mechanical factors from her dry mouth this morning rather than TIA. Regardless, her CT head is unremarkable and she is unable to have an MRI due to her pacemaker. She is 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 and should remain so, both for the NSTEMI and her afib. Her carotids are unremarkable and echo was completed as a part of her NSTEMI workup. We recommend no further testing, does not need a repeat CT head, can continue her current treatment regimen for the NSTEMI and switch back to her oral AC when appropriate. This was not a TIA or stroke in my opinion. -- Not a TIA/stroke, no further neurologic workup -- Continue management of her NSTEMI as appropriate with plan for full oral AC for her afib. -- Does not need neuro follow-up, please contact us with any further questions. Telehealth Consultation Telehealth Information Telehealth Information: I performed this visit using a real-time telehealth connection between my location and the patients location ([facility]). After connecting through interactive tele-video, patient was identified by name and date of and/or wristband check.Patient (or authorized healthcare brewery representative) was informed that this was a telemedicine visit and it was being conducted confidentially over secure lines. My office door was closed and no one else was present in the room with me.Patient (or authorized healthcare brewery representative) provided consent to proceed with the visit, expressed an understanding of privacy and security of the telemedicine visit, and gave permission to have a hospital brewery representative in the room in order to assist with the visit and to conduct portions of the visit, as needed. I informed the patient (or authorized healthcare brewery representative) that I reviewed their record and presented the opportunity for them to ask any questions regarding the visit today. The patient agreed to participate. History of Present Illness Reason for Consultation: Stroke like symptoms Requesting Physician: Dr. Avalos Attending Physician: Josue Avalos MD History of Present Illness Shannon Cruz is an 88 yo F admitted for NSTEMI, hx of afib on warfarin, on aspirin and heparin. Last night at 3 am she tried to tell the nurse that she had to go to the bathroom but had difficulty speaking. She knew what she wanted to say and could understand others but felt her mouth was very dry and could not produce speech. This resolved with a mouth swab after a CT scan. NIHSS was reportedly 8 per nursing. She denies any headache, weakness, numbness or vision changes. Never had a stroke in the past. Separately, she complains of severe restless legs and has tried lyrica in the past but it made her "talk funny". Has not tried any dopaminergic medication. Allergies Allergy/AdvReac Type Severity Reaction Status Date / Time iodine Allergy Intermediate itching Verified 01/29/23 19:52 amiodarone Allergy Mild UNSURE Verified 01/29/23 19:52 etodolac Allergy Mild Unknown Verified 01/29/23 19:52 Sulfa (Sulfonamide Allergy Mild Unknown Verified 01/29/23 19:52 Antibiotics) gabapentin AdvReac Mild sedation Verified 01/29/23 19:52 Penicillins AdvReac Mild YEAST INF Verified 01/29/23 19:52 simvastatin AdvReac Unknown CAN'T Verified 01/29/23 19:52 REMEMBER Home Medications Medication Instructions Recorded Confirmed Type Azelastine [place] 1 spray intranasal BID PRN Nasal 01/29/23 01/29/23 History Congestion aspirin 81 mg chewable tablet 81 mg PO DAILY 01/29/23 01/29/23 History calcium carbonate 600 mg-vitamin 1 tab PO DAILY 01/29/23 01/29/23 History D3 20 mcg (800 unit) tablet (Caltrate with Vitamin D3) camphor-menthol 0.2 %-3.5 % 1 applic topical BID PRN Pain 01/29/23 01/29/23 History topical gel clindamycin HCl 300 mg capsule 600 mg PO DIRECTED 01/29/23 01/29/23 History diphenhydramine HCl 25 mg tablet 25 mg PO Q4 PRN allergies 01/29/23 01/29/23 History (Benadryl Allergy) fexofenadine 180 mg tablet 180 mg PO DAILY PRN allergies 01/29/23 01/29/23 History (Lizzette Allergy) hydroxyurea 500 mg capsule 500 mg PO UD 01/29/23 01/29/23 History ipratropium bromide 21 mcg (0.03 2 spray intranasal BID PRN 01/29/23 01/29/23 History %) nasal spray .rhinitis lorazepam 0.5 mg tablet 0.5 mg PO Q8 PRN Anxiety 01/29/23 01/29/23 History magnesium oxide 400 mg PO DAILY 01/29/23 01/29/23 History metoprolol succinate 100 mg 150 mg PO AMHS 01/29/23 01/29/23 History tablet,extended release 24 hr mometasone 50 mcg/actuation nasal 2 spray intranasal QAM 01/29/23 01/29/23 History spray nitrofurantoin macrocrystal 100 mg 100 mg PO HS 01/29/23 01/29/23 History capsule nitroglycerin 0.4 mg sublingual 0.4 mg sublingual DIRECTED PRN 01/29/23 01/29/23 History tablet (Nitrostat) Chest Pain pantoprazole 40 mg tablet,delayed 40 mg PO QAM 01/29/23 01/29/23 History release rosuvastatin 10 mg tablet 10 mg PO QPM 01/29/23 01/29/23 History spironolactone 25 mg tablet 12.5 mg PO DAILY 01/29/23 01/29/23 History torsemide 20 mg tablet 20 mg PO UD 01/29/23 01/29/23 History warfarin 2.5 mg tablet 1.25 mg PO .6DAYWEEK 01/29/23 01/29/23 History L.acidop,casei,lactis,rham-B.lact,pito 2 cap PO DAILY #10 caps 02/02/23 Rx 625 mg (10 billion cell) capsule (Advanced Probiotic) amoxicillin 500 mg-potassium 1 tab PO BID #5 tabs 02/02/23 Rx clavulanate 125 mg tablet Patient History Medical History Anemia ASCVD (arteriosclerotic cardiovascular disease) 2006 - CABG x 3, bioproesthetic aortic valve replacement 2007 - PCI and stenting to SVG to RCA occlusion Atrial fibrillation, persistent Cardiac pacemaker in situ Carotid artery occlusion (Unknown) Chronic diastolic CHF (congestive heart failure) CKD (chronic kidney disease) stage 2, GFR 60-89 ml/min CKD (chronic kidney disease), stage III Current use of group home 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 Dermatitis Essential thrombocythemia Generalized weakness HLD (hyperlipidemia) HTN (hypertension) Replacement of aortic valve (Unknown) "[facility] [place] 2005 [place] " Sensorineural hearing loss of both ears Sinus node dysfunction 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 UTI due to extended-spectrum beta lactamase (ESBL) producing Escherichia coli Surgical History Coronary artery bypass grafting (Unknown) "C April 2006 VARGHESE to LAD SVG's to diagonal, obtuse marginal, RCA " History of colonoscopy with polypectomy History of cystoscopy History of tubal ligation Implantation of aortic valve prosthesis or synthetic device (Unknown) Placement of stent in coronary artery (Unknown) "RCA December 2006 " Status post transcatheter aortic valve replacement (TAVR) using bioprosthesis Stented coronary artery (Unknown) Total abdominal hysterectomy with bilateral salpingo-oophorectomy (Unknown) Family History Father Prostate cancer Mother Diabetes Sister Coronary heart disease Social History Smoking Status: Never smoker Second Hand Exposure: No; Do You Dip or Chew Tobacco: No; Hx Alcohol Use: No Hx Substance Use: No Preferred Language: Citizen Of [place] Communication Ability: Effective Visual Impairment: No Limitations Hearing Ability: Normal [employer] Required: No Beliefs That Will Affect Care: None marital status: / Current Living Situation: Alone Other Information That Helps Us Care for You: No Feels Safe at Home: Yes Safety Concerns: Feels Safe At This Time Assistive Devices: Hearing Aid - Bilateral and Walker Review of Systems +Speech changes Physical Exam Neurological Examination: Mental Status: Awake and alert. Oriented to person, place, and time. Fluent. Comprehension intact. Affect appropriate. Cranial Nerves: II: Reads NIHSS cards, pupils 3/3 to 2/2, eduardo grossly intact. III/IV/: Versions intact without nystagmus, no gaze preference. V: Facial sensation symmetric to light touch VII: Facial expression reduced on the L (chronic) VIII: Hearing intact to voice IX/X: Palate elevates symmetrically XI: Shoulder shrug symmetric XII: Tongue midline Motor: Strength was symmetric and antigravity throughout. Pronator drift was absent. There were no abnormal movements. Coordination: Finger to nose and heel to lai were intact. Results & Data Vital Signs (Past 12 Hours) Vital Signs Temp Pulse Pulse Resp BP Pulse Ox O2 Del Method 05/04/23 08:03 36.4 C L 83 16 155/88 H 98 Nasal Cannula 05/04/23 02:55 36.6 C 82 18 137/88 94 Nasal Cannula 05/04/23 01:37 82 112/77 05/03/23 23:00 36.8 C 79 17 119/63 99 Nasal Cannula 05/03/23 22:31 83 O2 Flow Rate 05/04/23 08:03 3.5 05/04/23 02:55 2 05/04/23 01:37 05/03/23 23:00 05/03/23 22:31 Laboratory Results Abnormal lab results 05/03/23 05/03/23 05/04/23 Range/Units 10:50 17:17 03:00 RBC (4.20-5.40) M/uL Hgb (12.0-16.0) g/dl Hct (37.0-47.0) % MCV (80.0-100.0) fL MCH (25.0-34.0) pg RDW Std Deviation (36.4-46.3) fL RDW Coeff of Ge (11.5-14.5) % Lymph # (Auto) (1.2-3.4) K/uL [place] # (Auto) (0.11-0.59) K/uL PT (9.0-12.0) Seconds INR (0.9-1.1) APTT (21.0-31.0) Seconds BUN (6-23) mg/dl Creatinine (0.6-1.2) mg/dl BUN/Creatinine Ratio (10-20) Glucose (70-99(Fasting)) mg/dl POC Glucose 157 H (70-99) mg/dl Total Bilirubin (0.2-1.0) mg/dl AST (13-39) U/L Troponin I High Sens 79684.1 H* D 66409.1 H* D (0-14) pg/ml 05/04/23 05/04/23 05/04/23 Range/Units 03:17 03:17 03:17 RBC 3.13 L (4.20-5.40) M/uL Hgb 11.0 L (12.0-16.0) g/dl Hct 34.1 L (37.0-47.0) % MCV 108.9 H (80.0-100.0) fL MCH 35.1 H (25.0-34.0) pg RDW Std Deviation 61.8 H (36.4-46.3) fL RDW Coeff of Ge 15.2 H (11.5-14.5) % Lymph # (Auto) 0.76 L (1.2-3.4) K/uL [place] # (Auto) 0.92 H (0.11-0.59) K/uL PT 18.8 H (9.0-12.0) Seconds INR 1.8 H (0.9-1.1) APTT 49.5 H* (21.0-31.0) Seconds BUN 35 H (6-23) mg/dl Creatinine 1.40 H (0.6-1.2) mg/dl BUN/Creatinine Ratio 25.0 H (10-20) Glucose 149 H (70-99(Fasting)) mg/dl POC Glucose (70-99) mg/dl Total Bilirubin 1.2 H (0.2-1.0) mg/dl AST 81 H (13-39) U/L Troponin I High Sens 29356.2 H* D (0-14) pg/ml Diagnostic Findings CT head - Unremarkable
[2023-05-04] MEDS: MAGNESIUM OXIDE 400 MG TAB PO SCH (08:30)
[2023-05-04] MEDS: PANTOprazole 40 MG TAB PO SCH (08:30)
[2023-05-04] MEDS: ASPIRIN 81 MG CHEW PO SCH (08:30)
[2023-05-04] MEDS: HEPARIN SODIUM/DEXTROSE 25,000 UNITS/500 ML BAG IV SCH ×2 (08:34→09:39)
[2023-05-04] MEDS: Heparin IV Adult Wt-Based Low-Dose *NO* Bolus Protocol IV SCH ×2 (08:35→12:13)
[2023-05-04] MEDS ORDERED: TORSEMIDE 20 MG TAB PO SCH (09:00)
[2023-05-04] MEDS ORDERED: METOPROLOL SUCC 25MG EXT REL TAB PO SCH (09:00)
[2023-05-04 09:08] LABS: Basophils # (auto) 0.06 K/uL (0-0.2); Basophils % (auto) 0.9 %; Eosinophils # (auto) 0.13 K/uL (0-0.50); Hematocrit (blood only) 34.5 % (37.0-47.0); Hemoglobin 11.1 g/dl (12.0-16.0); Immature Granulocytes # (auto) 0.02 K/uL (0.01-0.20); Immature Granulocytes % (auto) 0.3 %; Lymphocytes # (auto) 0.61 K/uL (1.2-3.4); Lymphocytes % (auto) 9.5 %; Mean Corpuscular Hemoglobin 34.7 pg (25.0-34.0); Mean Corpuscular Hgb Conc 32.2 g/dL (32.0-36.0); Mean Corpuscular Volume 107.8 fL (80.0-100.0); Mean Platelet Volume 11.1 fL (9.4-12.4); Monocytes # (auto) 0.87 K/uL (0.11-0.59); Monocytes % (auto) 13.6 %; Neutrophils % (auto) 73.7 %; Platelet Count 247 K/uL (130-400); RDW Coefficient of Variation 15.3 % (11.5-14.5); RDW Standard Deviation 60.5 fL (36.4-46.3); White Blood Count 6.39 K/ul (4.8-10.8)
[2023-05-04 09:37] LABS: INR 1.6 (0.9-1.1); Partial Thromboplastin Ratio 1.3; Partial Thromboplastin Time 35.5 Seconds (21.0-31.0); Prothrombin Time 17.5 Seconds (9.0-12.0)
[2023-05-04] MEDS ORDERED: LORazepam 2 MG/1 ML VIAL IV ONE (11:01)
--- NOTE | 2023-05-04 11:03 | Cardiology Progress Note ---
Date of Service May 04, 2023 Assessment & Plan (1) NSTEMI (non-ST elevated myocardial infarction): (2) Ischemic cardiomyopathy: (3) Mitral regurgitation: (4) Tricuspid regurgitation: (5) RADHA (acute kidney injury): (6) Chronic heart failure with reduced ejection fraction and diastolic dysfunction: (7) Pacemaker: (8) Chronic atrial fibrillation: (9) Suspected cerebrovascular accident (CVA): Plan 88-year-old female admitted with chest pain, NSTEMI with echocardiographic e vidence of inferoposterior and septal myocardial infarction. Mild LV systolic dysfunction observed (EF 40-45%) with severe TR, moderate to severe MR. Patient appears compensated from a volume standpoint. CVA suspected overnight. I had a long conversation with the patient and then the patient and her daughter Mely regarding treatment options. We will continue conservative medical management for the NSTEMI. Pacemaker (Medtr[employer]) is MR conditional. Recommend MRI of the brain to further evaluate observed neurologic deficit. Continue IV heparin for now for the NSTEMI. Hold Coumadin for now. Increase metoprolol dosing back to prior. Continue aspirin and statin. Admission and Anticipated Discharge Date Admission Date: May 02, 2023 Supervising Physician Co-Signing Physician Notes Patient seen examined the bedside. Slurred speech and left-sided facial droop noted. No recurrent chest discomfort over the past [address] negative for CVA, however, MRI scheduled. PE:VSS. GEN: NAD, AAOx3. Heart: Irregular rhythm, 2/6 systolic ejection murmur. Lungs: Clear bilateral, no rales, rhonchi, wheeze. Neuro: Left-sided facial droop, + slurred speech. A/P: Agree with above PA-C history, physical exam, assessment and plan. Continue intravenous heparin for an additional 24 hours. Then utilize heparin bridging to goal INR of 2.0-3.0. Agree with MRI of the brain today given neurologic deficit on exam. Resume outpatient dose of metoprolol succinate, 100 mg twice daily. Consider addition of low-dose CARMEN inhibitor or ARB as blood pressure and renal function allows. I would not recommend additional antihypertensive therapy today in the setting of acute CVA, rather, allow permissive hypertension over the next 48 hours pending review of MRI. Subjective Patient seen and examined. Chart, medications, telemetry reviewed. Overnight events noted. Patient with definite neurologic deficit compared to yesterday - difficulty with speech, left-sided facial droop. CT of the head without acute findings. Carotid duplex without moderate atherosclerotic disease without hemodynamically significant stenosis. Antegrade flow observed in the vertebral arteries. Telemetry with occasional PVCs, and paced beats EKG this morning revealed atrial fibrillation with a ventricular rate of 89 bpm with premature ventricular or aberrantly conducted complexes, right bundle branch block, possible old septal infarct, inferolateral STT wave abnormality suggestive of ischemia. QTc 493 ms. + Dry mouth. No chest pain. No shortness of breath. No palpitations. No orthopnea or PND. No significant peripheral edema. No fevers or chills. No dysuria. Review of Systems Review of Systems: Complete review of systems is otherwise as stated above, negative, noncontributory. Physical Exam Physical Exam: General: A&Ox3. NAD. Neuro: Left-sided facial droop. Slurred speech. HENT: Normocephalic. Atraumatic. Neck: No JVD. Bilateral carotid bruits. Lungs: Clear to auscultation Cardiovascular: Irregularly irregular at 90 bpm. Grade II/IV systolic ejection murmur. No diastolic murmur. No rub Abdomen: Soft, nontender. No hepatojugular reflux. Extremities: Minimal edema. No clubbing. No cyanosis. Pulses: The right posterior tibial pulse was 2/4 and the left posterior tibial pulse was 1/4 Results & Data Vital Signs (Past 12 Hours) Vital Signs Temp Pulse Pulse Resp BP Pulse Ox O2 Del Method 05/04/23 10:09 84 05/04/23 08:03 36.4 C L 83 16 155/88 H 98 Nasal Cannula 05/04/23 02:55 36.6 C 82 18 137/88 94 Nasal Cannula 05/04/23 01:37 82 112/77 O2 Flow Rate 05/04/23 10:09 05/04/23 08:03 3.5 05/04/23 02:55 2 05/04/23 01:37 Laboratory Results Cardiac Enzymes 05/03/23 05/03/23 05/04/23 Range/Units 10:50 17:17 03:17 AST 81 H (13-39) U/L Troponin I High Sens 08438.1 H* D 38678.1 H* D 05046.2 H* D (0-14) pg/ml Coagulation 05/04/23 05/04/23 Range/Units 03:17 08:40 PT 18.8 H 17.5 H (9.0-12.0) Seconds APTT 49.5 H* 35.5 H (21.0-31.0) Seconds CBC 05/04/23 05/04/23 Range/Units 03:17 08:40 WBC 6.85 6.39 (4.8-10.8) K/ul RBC 3.13 L 3.20 L (4.20-5.40) M/uL Hgb 11.0 L 11.1 L (12.0-16.0) g/dl Hct 34.1 L 34.5 L (37.0-47.0) % Plt Count 258 247 (130-400) K/uL Neut # (Auto) 4.83 4.70 (1.40-6.50) K/uL Lymph # (Auto) 0.76 L 0.61 L (1.2-3.4) K/uL [place] # (Auto) 0.92 H 0.87 H (0.11-0.59) K/uL Eos # (Auto) 0.26 0.13 (0-0.50) K/uL Baso # (Auto) 0.06 0.06 (0-0.2) K/uL Comprehensive Metabolic Panel 05/04/23 Range/Units 03:17 Sodium 138 (136-145) mmol/L Potassium 4.5 D (3.5-5.1) mmol/L Chloride 99 (98-107) mmol/L Carbon Dioxide 32 (21-32) mmol/L BUN 35 H (6-23) mg/dl Creatinine 1.40 H (0.6-1.2) mg/dl Glucose 149 H (70-99(Fasting)) mg/dl Calcium 9.6 (8.6-10.3) mg/dl AST 81 H (13-39) U/L ALT 21 (7-52) U/L Alkaline Phosphatase 76 (34-104) U/L Total Protein 7.7 (6.0-8.3) gm/dl Albumin 4.0 (3.4-5.0) gm/dl Intake and Output 05/03/23 05/04/23 05/04/23 22:59 06:59 14:59 Intake Total 360 / 660 100 / 660 386.133 / 386.133 Output Total Balance 360 / 659 99 / 659 385.133 / 385.133 Intake: IV 100 / 100 386.133 / 386.133 Heparin Sodium/Dextrose 25,000 386.133 / 386.133 units In 500 ml @ 700 UNITS/HR 14 mls/hr IV .Q24H DYLAN Rx#: [id number] Magnesium Sulfate / D5w 1 gm In 100 / 100 100 ml @ 50 mls/hr IV ONE ONE Rx#:[id number] Oral 360 / 560 Output: # Bowel Movements Other: # Unmeasured Voids 1 Weight 79.7 kg Weight Measurement Method Built in [facility]
--- NOTE | 2023-05-04 12:16 | Electrocardiogram Report ---
Test Reason : Blood Pressure : / mmHG Vent. Rate : 084 BPM Atrial Rate : 394 BPM P-R Int : 000 ms QRS Dur : 122 ms QT Int : 416 ms P-R-T Axes : 000 091 002 degrees QTc Int : 491 ms Atrial fibrillation with premature ventricular or aberrantly conducted complexes Right bundle branch block Abnormal ECG When compared with ECG of 03-MAY-2023 06:56, (unconfirmed) No significant change was found Confirmed by Wale Claudio ([id number]) on 05/04/2023 12:15:58 PM Referred By: REFERRED SELF Confirmed By:Edgar Claudio
[2023-05-04] MEDS ORDERED: LORazepam 2 MG/1 ML VIAL IV SCH (13:00)
[2023-05-04] MEDS ORDERED: GADOBUTROL 65ML VIAL IV ONE (14:23)
--- NOTE | 2023-05-04 15:45 | Magnetic Resonance Report ---
MR brain wo/w con HISTORY: 88 years-old Female Stroke like symptoms acute stroke like symptoms COMPARISON: Head CT of same day TECHNIQUE: Multiplanar multisequence MRI of the brain was obtained both with and without the use of I V contrast FINDINGS: Motion degraded exam. Midline structures are unremarkable. There is an 8 mm focus of acute diffusion noted within the right frontal lobe deep white matter adjacent to the right frontal horn on image 14 series 5. Additional subcentimeter focus of acute diffusion within the subcortical right frontal lobe , image 11 series 5. No acute or subacute territorial infarct. No acute intracranial hemorrhage, midline shift, abnormal extra-axial collection, hydrocephalus or in tracranial mass. Mild scattered T2/FLAIR hyperintense foci throughout the white matter. Involutional changes of the brain parenchyma. Cerebral venous sinuses and major arterial flow voids appear patent. The skull and soft tissues are unremarkable. Bilateral lens repair. Mastoid air cells and paranasal sinuses are clear. No abnormal enhancement. IMPRESSION: 1. No acute intracranial hemorrhage, midline shift or acute territorial infarct. 2. There are two subcentimeter acute lacunar infarcts present within the right frontal lobe. 3. Involutional changes with chronic microvascular ischemic disease. 4. No abnormal enhancement. ACT 112: Negative or not required by law. The above report was generated using voice recognition software. It may contain grammatical, syntax o r spelling errors. Electronically signed by: Zacarias Valencia M.D. 05/04/2023 3:44 PM
--- NOTE | 2023-05-04 16:23 | Electrocardiogram Report ---
Test Reason : Blood Pressure : / mmHG Vent. Rate : 092 BPM Atrial Rate : 043 BPM P-R Int : 000 ms QRS Dur : 126 ms QT Int : 398 ms P-R-T Axes : 000 084 013 degrees QTc Int : 492 ms Atrial fibrillation with aberrant conduction and demand ventricular pacing Right bundle branch block T wave abnormality, consider lateral ischemia Abnormal ECG Confirmed by Wale Claudio ([id number]) on 05/04/2023 4:23:07 PM Referred By: REFERRED SELF Confirmed By:Edgar Claudio
--- NOTE | 2023-05-04 16:24 | Electrocardiogram Report ---
Test Reason : Blood Pressure : / mmHG Vent. Rate : 076 BPM Atrial Rate : 059 BPM P-R Int : 000 ms QRS Dur : 066 ms QT Int : 408 ms P-R-T Axes : 000 071 -37 degrees QTc Int : 459 ms Atrial fibrillation with aberrancy Right bundle branch block Abnormal ECG Confirmed by Wale Claudio ([id number]) on 05/04/2023 4:23:52 PM Referred By: REFERRED SELF Confirmed By:Edgar Claudio
--- NOTE | 2023-05-04 16:24 | Electrocardiogram Report ---
Test Reason : Blood Pressure : / mmHG Vent. Rate : 089 BPM Atrial Rate : 084 BPM P-R Int : 000 ms QRS Dur : 124 ms QT Int : 406 ms P-R-T Axes : 000 090 107 degrees QTc Int : 493 ms Atrial fibrillation with premature ventricular or aberrantly conducted complexes Right bundle branch block T wave abnormality, consider inferolateral ischemia Abnormal ECG Confirmed by Wale Claudio ([id number]) on 05/04/2023 4:24:17 PM Referred By: REFERRED SELF Confirmed By:Edgar Claudio
--- NOTE | 2023-05-04 16:24 | Electrocardiogram Report ---
Test Reason : Blood Pressure : / mmHG Vent. Rate : 077 BPM Atrial Rate : 153 BPM P-R Int : 000 ms QRS Dur : 122 ms QT Int : 414 ms P-R-T Axes : 000 077 -16 degrees QTc Int : 468 ms Atrial fibrillation with premature ventricular or aberrantly conducted complexes Right bundle branch block T wave abnormality, consider lateral ischemia Abnormal ECG Confirmed by Wale Claudio ([id number]) on 05/04/2023 4:24:06 PM Referred By: REFERRED SELF Confirmed By:Edgar Claudio
[2023-05-04 16:36] LABS: Partial Thromboplastin Ratio 2.1
[2023-05-04 16:53] LABS: Partial Thromboplastin Time 58.5 Seconds (21.0-31.0)
--- NOTE | 2023-05-04 17:45 | Hospitalist Progress Note ---
Date of Service May 04, 2023 Assessment & Plan (1) NSTEMI (non-ST elevated myocardial infarction): Plan: Patient is an 88-year-old female with history of CAD s/p stent presents with chest pain and found to elevated troponin. Non-ST elevated [place] Ischemic cardiomyopathy Mitral/tricuspid regurgitation Chronic heart failure with reduced EF and diastolic dysfunction Pacemaker H/O AVR --CXR:No acute chest disease. --ECHO: Left ventricle systolic function is mildly reduced. EF 40 to 45%. Large sized apical, septal, anteroseptal, inferior and posterior wall motion abnormality with hypokinesis to akinesis of the segments. Bioprosthetic aortic valve. Left atrium is moderately dilated. Trivial bioprosthetic aortic valve regurgitation. The gradient is normal for this prosthetic aortic valve. There is moderate to severe mitral regurgitation. Severe tricuspid regurgitation. Estimated systolic pulmonary pressure is 41 mmHg. --Troponin elevated at [id number] Continue IV heparin Nitropaste discontinued Appreciate cardiology input Patient preferred conservative management Continue aspirin, Crestor, metoprolol Increase metoprolol to 100mg BID RADHA on CKD III Cr 1.52>1.4 Diuretics held Avoid nephrotoxic agents as able Monitor renal function Acute CVA: Likely due to afib --MRI Brain:There are two subcentimeter acute lacunar infarcts present within the right frontal lobe. Involutional changes with chronic microvascular ischemic disease. No abnormal enhancement. Discussed with neurology on 05/04/23: Recommends no change in management Continue aspirin Check lipid panel Also on IV heparin, eventually need to be transition to Coumadin PT OT, speech eval Increase rosuvastatin to 20 mg daily (H/O simvastatin intolerant) H//O CAD s/p stent Continue aspirin, statin and beta-buddy Hypertension Continue metoprolol Monitor BP Hyperlipidemia On statin Sinus node dysfunction s/p pacemaker H/O paroxysmal atrial fibrillation Continue metoprolol succinate Continue IV heparin for now INR subtherapeutic Resume Coumadin as able Obstructive sleep apnea Chronic hypoxic respiratory failure On home oxygen H/O Essential thrombocythemia On hydroxyurea DVT Px: IV heparin Code Status Full Code Admission and Anticipated Discharge Date Admission Date: May 02, 2023 Subjective Patient is seen and examined at bedside Patient had an episode of aphasia overnight and noted to have facial droop Offers no new complaints this morning Still has dyspnea on exertion Currently on IV heparin Discussed with patient's family at bedside Also discussed with cardiology and neurology today Review of Systems Review of Systems: All systems reviewed & are unremarkable except as noted in Subjective Physical Exam Physical Exam: Physical Exam: Vitals signs as noted above General Appearance:Obese, no apparent distress, chronic ill appearing Head: normocephalic, Atraumatic, +Facial droop Eyes: normal inspection, EOMI Neck: supple, Trachea midline Respiratory/Chest: Normal breath sounds, CTA, No accessory muscle use Cardiovascular: Irregularly irregular, +murmur Abdomen/GI:Soft, Non tender, Bowel sounds present Extremities/Musculoskeletal:normal inspection, 1+ pedal edema Neurologic/Psych:AAOX3, grossly no focal neurological deficits Skin: normal color, warm Results & Data Results & Data Vital Signs (Past 12 Hours) Vital Signs Temp Pulse Pulse Resp BP Pulse Ox Pulse Ox 05/04/23 16:15 36.4 C L 86 16 132/87 100 05/04/23 11:20 36.6 C 83 22 144/87 H 05/04/23 11:12 97 05/04/23 10:09 84 05/04/23 08:03 36.4 C L 83 16 155/88 H 98 Pulse Ox O2 Del Method O2 Flow Rate O2 Flow Rate O2 Flow Rate 05/04/23 16:15 Nasal Cannula 3.5 05/04/23 11:20 Nasal Cannula 3.5 05/04/23 11:12 96 4 4 05/04/23 10:09 05/04/23 08:03 Nasal Cannula 3.5 Laboratory Results Short CBC 05/04/23 05/04/23 Range/Units 03:17 08:40 WBC 6.85 6.39 (4.8-10.8) K/ul Hgb 11.0 L 11.1 L (12.0-16.0) g/dl Hct 34.1 L 34.5 L (37.0-47.0) % Plt Count 258 247 (130-400) K/uL BMP 05/04/23 03:17 Sodium 138 Potassium 4.5 D Chloride 99 Carbon Dioxide 32 BUN 35 H Creatinine 1.40 H Glucose 149 H Calcium 9.6 Liver Function 05/04/23 Range/Units 03:17 Total Bilirubin 1.2 H (0.2-1.0) mg/dl AST 81 H (13-39) U/L ALT 21 (7-52) U/L Alkaline Phosphatase 76 (34-104) U/L Albumin 4.0 (3.4-5.0) gm/dl
[2023-05-04] MEDS: METOPROLOL SUCC 50MG EXT REL TAB PO SCH (20:25)
[2023-05-04] MEDS: ROSUVASTATIN CALCIUM 20 MG TAB PO SCH (20:25)
--- NOTE | 2023-05-05 06:38 | CT Scan Report ---
CT head/brain wo con CLINICAL HISTORY: 88 years-old Female with tia, ffup. Acute or chronic symptoms TECHNIQUE: Multiple axial CT images of the head were obtained without contrast. A dose lowering tech nique was utilized adhering to the principles of ALARA. CT DOSE: 547.75 mGy.cm COMPARISON: Brain MRI 05/04/2023 FINDINGS: No acute intracranial hemorrhage, midline shift, intracranial mass, hydrocephalus, territorial ischem ia or abnormal extra-axial collection. Involutional changes with chronic microvascular ischemic disea se. Subcentimeter lacunar infarcts in the subcortical right frontal lobe on image 10 series 2 again n oted. Additional more superior lacunar infarcts in the right frontal lobe described on yesterday's MR I is not definitively seen. The calvarium is intact. Prior bilateral lens repair. The paranasal sinuses, mastoid air cells, and m iddle ear cavities are clear. IMPRESSION: 1. No acute intracranial hemorrhage or acute territorial infarct. 2. The subcentimeter acute lacunar infarcts within the right frontal lobe are better seen on yesterda y's MRI. 3. Involutional changes with chronic microvascular ischemic disease. ACT 112: Negative or not required by law. The above report was generated using voice recognition software. It may contain grammatical, syntax o r spelling errors. Electronically signed by: Zacarias Valencia M.D. 05/05/2023 6:35 AM
[2023-05-05] MEDS: ASPIRIN 81 MG CHEW PO SCH (08:35)
[2023-05-05] MEDS: MAGNESIUM OXIDE 400 MG TAB PO SCH (08:36)
[2023-05-05] MEDS: METOPROLOL SUCC 50MG EXT REL TAB PO SCH ×2 (08:36→21:17)
[2023-05-05 08:37] LABS: Hematocrit (blood only) 35.6 % (37.0-47.0); Hemoglobin 11.1 g/dl (12.0-16.0); Mean Corpuscular Hemoglobin 34.4 pg (25.0-34.0); Mean Corpuscular Hgb Conc 31.2 g/dL (32.0-36.0); Mean Corpuscular Volume 110.2 fL (80.0-100.0); Mean Platelet Volume 11.1 fL (9.4-12.4); Platelet Count 253 K/uL (130-400); RDW Coefficient of Variation 15.4 % (11.5-14.5); Red Blood Count 3.23 M/uL (4.20-5.40); White Blood Count 6.87 K/ul (4.8-10.8)
[2023-05-05] MEDS: PANTOprazole 40 MG TAB PO SCH (08:37)
[2023-05-05 08:49] LABS: BUN Creatinine Ratio 22.9 (10-20); Calcium 9.4 mg/dl (8.6-10.3); Chol HDL Ratio 2.8 (0-5); Creatinine Clr Calc Pharmacy 31.4 ml/min; Est GFR (Non-African American) 41.4 ml/min; Potassium 4.1 mmol/L (3.5-5.1)
[2023-05-05 09:17] LABS: INR 1.5 (0.9-1.1); Partial Thromboplastin Ratio 2.1; Prothrombin Time 16.2 Seconds (9.0-12.0)
[2023-05-05 09:22] LABS: Partial Thromboplastin Time 58.6 Seconds (21.0-31.0)
--- NOTE | 2023-05-05 09:47 | Cardiology Progress Note ---
Date of Service May 05, 2023 Assessment & Plan (1) NSTEMI (non-ST elevated myocardial infarction): (2) Ischemic cardiomyopathy: (3) Mitral regurgitation: (4) Tricuspid regurgitation: (5) RADHA (acute kidney injury): (6) Chronic heart failure with reduced ejection fraction and diastolic dysfunction: (7) Pacemaker: (8) Chronic atrial fibrillation: (9) Multiple lacunar infarcts: Plan Admission with chest pain, NSTEMI. Echo with inferoposterior and septal myocardial infarction. LV systolic dysfunction mild impaired, EF 40-45% with severe TR, moderate to severe MR. Compensated volume standpoint. Two subcentimeter acute lacunar infarcts within the right frontal lobe. Continue conservative medical management Transition Heparin to Coumadin, INR 2.0-3.0. Resume lower dose diuretic therapy in AM of 05/06/2023, torsemide 20 mg/day along with spironolactone 12.5 mg on MWF. Continue beta-buddy, aspirin and statin. Add low dose ARB (Losartan 12.5 mg/day) as blood pressure and renal dysfunction permit. Increase activity as tolerated. Admission and Anticipated Discharge Date Admission Date: May 02, 2023 Supervising Physician Co-Signing Physician Notes Patient seen examined the bedside. Speech improved. Facial droop has resolved. No recurrent chest discomfort. MRI demonstrating 2 right-sided acute lacunar infarcts. PE:VSS. GEN: NAD, AAOx3. Heart: Irregular rhythm, 2/6 systolic ejection murmur. Lungs: Clear bilateral, no rales, rhonchi, wheeze. Neuro: No facial asymmetry. Mild slurred speech. A/P: Agree with above PA-C history, physical exam, assessment and plan. Restart warfarin today. Continue IV heparin until INR reaches 2.0. Restart oral diuretic therapy (torsemide 20 mg) in a.m. Add low-dose losartan 12.5 mg daily. Continue metoprolol succinate, 100 mg twice daily. Transition aspirin to clopidogrel in setting of acute CVA and myocardial infarction. Subjective Patient seen and examined. Chart, medications, telemetry reviewed. Daughter Mely at bedside. MR with two subcentimeter acute lacunar infarcts present within the right frontal lobe. Speech and left sided facial droop have improved. No RLS last night. Chronically tired. No chest pain. No palpitations. No shortness of breath. No orthopnea, PND, or edema. No lightheadedness or dizziness. No fevers or chills Telemetry with chronic atrial fibrillation, intermittent pacing, rare PVC. Prior Problem List: ASCVD, longstanding Status post AVR and CABG in April 2006 receiving a #19 Mary-Good bioprosthesis in the aortic valve position, VARGHESE graft to the LAD, SVG with sequential grafting from LAD diagonal to the circumflex obtuse marginal, and a SVG to the RCA. Recurrent angina with resultant coronary intervention of the right coronary artery, PCI and stenting in December of 2006 with documented saphenous vein graft occlusion to the right coronary artery at that time. Quiescent Diastolic congestive heart failure Persistent atrial fibrillation Chronic Coumadin 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 Prior transient bright red blood per rectum requiring ER evaluation in December 2021, suggestive of hemorrhoidal bleeding, declining further evaluation (colonoscopy). Sinus node dysfunction status post April 08, 2014 dual chamber pacemaker implantation, with dwindling generator longevity noted as above. Hypertension. Hyperlipidemia. Bilateral internal carotid artery disease. Sleep apnea. Intolerant to CPAP therapy Ambulatory and nocturnal hypoxemia treated with supplemental oxygen 2 to 3 liters/minute via nasal cannula Spinal stenosis with chronic back pain. Restless leg syndrome Review of Systems Review of Systems: Complete review of systems is otherwise as stated above, negative, noncontributory. Physical Exam Physical Exam: General: A&Ox3. NAD. Neuro: Much improved left-sided facial droop. + Slurred speech, improved compared to yesterday HENT: Normocephalic. Atraumatic. Neck: No JVD. Bilateral carotid bruits. Lungs: Clear to auscultation Cardiovascular: Irregularly irregular at 80 bpm. Grade II/IV systolic ejection murmur. No diastolic murmur. No rub Abdomen: Soft, nontender. No hepatojugular reflux. Extremities: No edema. No clubbing. No cyanosis. Pulses: The right posterior tibial pulse was 2/4 and the left posterior tibial pulse was 1/4 Results & Data Vital Signs (Past 12 Hours) Vital Signs Temp Pulse Pulse Resp BP Pulse Ox O2 Del Method 05/05/23 08:40 Nasal Cannula 05/05/23 07:40 36.6 C 82 22 125/56 L 99 Nasal Cannula 05/05/23 02:46 36.8 C 83 20 122/76 93 Nasal Cannula 05/04/23 23:58 85 05/04/23 22:44 36.5 C 84 18 125/70 92 Nasal Cannula O2 Flow Rate 05/05/23 08:40 2 05/05/23 07:40 3.5 05/05/23 02:46 05/04/23 23:58 05/04/23 22:44 3.5 Laboratory Results Coagulation 05/04/23 05/05/23 Range/Units 15:22 07:48 PT 16.2 H (9.0-12.0) Seconds APTT 58.5 H* 58.6 H* (21.0-31.0) Seconds Lipids 05/05/23 Range/Units 07:48 Triglycerides 92 (0-150) mg/dl Cholesterol 95 (0-200) mg/dl HDL Cholesterol 34 mg/dl Cholesterol/HDL Ratio 2.8 (0-5) CBC 05/05/23 Range/Units 07:48 WBC 6.87 (4.8-10.8) K/ul RBC 3.23 L (4.20-5.40) M/uL Hgb 11.1 L (12.0-16.0) g/dl Hct 35.6 L (37.0-47.0) % Plt Count 253 (130-400) K/uL Comprehensive Metabolic Panel 05/05/23 Range/Units 07:48 Sodium 140 (136-145) mmol/L Potassium 4.1 (3.5-5.1) mmol/L Chloride 102 (98-107) mmol/L Carbon Dioxide 33 H (21-32) mmol/L BUN 27 H (6-23) mg/dl Creatinine 1.18 (0.6-1.2) mg/dl Glucose 121 H (70-99(Fasting)) mg/dl Calcium 9.4 (8.6-10.3) mg/dl Intake and Output 05/04/23 05/05/23 05/05/23 22:59 06:59 14:59 Intake Total 1300 / 2066.133 Output Total 2 / 3 Balance 1298 / 2063.133 Intake: IV 1000 / 1386.133 Lactated Ringer's 1,000 ml @ 60 1000 / 1000 mls/hr IV .[id number] Rx#: [id number] Oral 300 / 680 Output: # Bowel Movements 2 / 3 Other: Other Intake Source sips # Unmeasured Voids 1 2 Weight 79.7 kg Weight Measurement Method Built in [facility]
[2023-05-05] MEDS ORDERED: COUGH DROP (SUGAR FREE) LOZ 24 LOZ/1 BOX BUCCAL ONE (15:42)
[2023-05-05] MEDS: WARFARIN SOD 1.25 MG TAB PO SCH (15:44)
--- NOTE | 2023-05-05 16:27 | Hospitalist Progress Note ---
Date of Service May 05, 2023 Assessment & Plan (1) NSTEMI (non-ST elevated myocardial infarction): Plan: Patient is an 88-year-old female with history of CAD s/p stent presents with chest pain and found to elevated troponin. Non-ST elevated [place] Ischemic cardiomyopathy Mitral/tricuspid regurgitation Chronic heart failure with reduced EF and diastolic dysfunction Pacemaker H/O AVR --CXR:No acute chest disease. --ECHO: Left ventricle systolic function is mildly reduced. EF 40 to 45%. Large sized apical, septal, anteroseptal, inferior and posterior wall motion abnormality with hypokinesis to akinesis of the segments. Bioprosthetic aortic valve. Left atrium is moderately dilated. Trivial bioprosthetic aortic valve regurgitation. The gradient is normal for this prosthetic aortic valve. There is moderate to severe mitral regurgitation. Severe tricuspid regurgitation. Estimated systolic pulmonary pressure is 41 mmHg. --Troponin elevated at 5396>[id number] Continue IV heparin Nitropaste discontinued Appreciate cardiology input Patient preferred conservative management Continue aspirin, Crestor, metoprolol Plan to resume low-dose diuretic tomorrow RADHA on CKD III Cr 1.52>1.4>1.1 Avoid nephrotoxic agents as able Monitor renal function Acute CVA: Likely due to afib --MRI Brain:There are two subcentimeter acute lacunar infarcts present within the right frontal lobe. Involutional changes with chronic microvascular ischemic disease. No abnormal enhancement. Discussed with neurology on 05/04/23: Recommends no change in management Aspirin changed to Plavix Reviewed lipid panel Also on IV heparin and Coumadin PT OT, speech eval Increase rosuvastatin to 20 mg daily (H/O simvastatin intolerant) H//O CAD s/p stent Continue aspirin, statin and beta-buddy Hypertension Continue metoprolol Monitor BP Hyperlipidemia On statin Sinus node dysfunction s/p pacemaker H/O paroxysmal atrial fibrillation Continue metoprolol succinate Continue IV heparin till INR therapeutic Resumed Coumadin today Monitor INR: 1.5 today Obstructive sleep apnea Chronic hypoxic respiratory failure On home oxygen H/O Essential thrombocythemia On hydroxyurea DVT Px: IV heparin, Coumadin Code Status Full Code Disposition PT OT prior to discharge Admission and Anticipated Discharge Date Admission Date: May 02, 2023 Subjective Patient is seen and examined at bedside States feeling tired today but otherwise feels better Speech more clear, facial droop improved Discussed with patient's family at bedside Also discussed with cardiology Denies any chest pain, dyspnea, dizziness, nausea, vomiting, abdominal pain On IV Heparin CT head today showed no acute changes Review of Systems Review of Systems: All systems reviewed & are unremarkable except as noted in Subjective Physical Exam Physical Exam: Physical Exam: Vitals signs as noted above General Appearance:Obese, no apparent distress, chronic ill appearing Head: normocephalic, Atraumatic, +Facial droopresolved Eyes: normal inspection, EOMI Neck: supple, Trachea midline Respiratory/Chest: Normal breath sounds, CTA, No accessory muscle use Cardiovascular: Irregularly irregular, +murmur Abdomen/GI:Soft, Non tender, Bowel sounds present Extremities/Musculoskeletal:normal inspection, 1+ pedal edema Neurologic/Psych:AAOX3, grossly no focal neurological deficits Skin: normal color, warm Results & Data Results & Data Vital Signs (Past 12 Hours) Vital Signs Temp Pulse Resp BP Pulse Ox O2 Del Method O2 Flow Rate 05/05/23 12:00 36.7 C 68 20 135/65 96 Room Air 05/05/23 08:40 Nasal Cannula 2 05/05/23 07:40 36.6 C 82 22 125/56 L 99 Nasal Cannula 3.5 Laboratory Results Short CBC 05/05/23 Range/Units 07:48 WBC 6.87 (4.8-10.8) K/ul Hgb 11.1 L (12.0-16.0) g/dl Hct 35.6 L (37.0-47.0) % Plt Count 253 (130-400) K/uL BMP 05/05/23 07:48 Sodium 140 Potassium 4.1 Chloride 102 Carbon Dioxide 33 H BUN 27 H Creatinine 1.18 Glucose 121 H Calcium 9.4
[2023-05-05] MEDS: HEPARIN SODIUM/DEXTROSE 25,000 UNITS/500 ML BAG IV SCH (19:48)
[2023-05-05] MEDS: Heparin IV Adult Wt-Based Low-Dose *NO* Bolus Protocol IV SCH (19:49)
[2023-05-05] MEDS: ROSUVASTATIN CALCIUM 20 MG TAB PO SCH (21:17)
[2023-05-05] MEDS: LORazepam 0.5 MG TAB PO PRN (21:21)
[2023-05-06] MEDS: METOPROLOL SUCC 50MG EXT REL TAB PO SCH ×2 (08:04→21:23)
[2023-05-06] MEDS: CLOPIDOGREL BISULFATE 75 MG TAB PO SCH (08:04)
[2023-05-06] MEDS: PANTOprazole 40 MG TAB PO SCH (08:05)
[2023-05-06] MEDS: MAGNESIUM OXIDE 400 MG TAB PO SCH (08:05)
[2023-05-06 08:27] LABS: Hematocrit (blood only) 33.2 % (37.0-47.0); Hemoglobin 10.3 g/dl (12.0-16.0); Mean Corpuscular Hemoglobin 34.9 pg (25.0-34.0); Mean Corpuscular Volume 112.5 fL (80.0-100.0); Mean Platelet Volume 11.3 fL (9.4-12.4); Platelet Count 218 K/uL (130-400); RDW Coefficient of Variation 15.2 % (11.5-14.5); RDW Standard Deviation 62.7 fL (36.4-46.3); Red Blood Count 2.95 M/uL (4.20-5.40); White Blood Count 6.67 K/ul (4.8-10.8)
[2023-05-06 08:43] LABS: INR 1.5 (0.9-1.1); Prothrombin Time 15.6 Seconds (9.0-12.0)
[2023-05-06 08:49] LABS: Calcium 9.1 mg/dl (8.6-10.3); Potassium 4.5 mmol/L (3.5-5.1)
[2023-05-06 08:55] LABS: BUN Creatinine Ratio 22.2 (10-20); Creatinine Clr Calc Pharmacy 34.5 ml/min; Est GFR (African American) 53.5 ml/min; Est GFR (Non-African American) 46.1 ml/min
--- NOTE | 2023-05-06 11:27 | Cardiology Progress Note ---
Date of Service May 06, 2023 Assessment & Plan (1) NSTEMI (non-ST elevated myocardial infarction): (2) Ischemic cardiomyopathy: (3) Mitral regurgitation: (4) Tricuspid regurgitation: (5) RADHA (acute kidney injury): (6) Chronic heart failure with reduced ejection fraction and diastolic dysfunction: (7) Pacemaker: (8) Chronic atrial fibrillation: (9) Multiple lacunar infarcts: Plan Admission with chest pain, NSTEMI. Echo with inferoposterior and septal myocardial infarction. LV systolic dysfunction mild impaired, EF 40-45% with severe TR, moderate to severe MR. Compensated volume standpoint. Two subcentimeter acute lacunar infarcts within the right frontal lobe. 05/06/2023 Patient hemodynamically stable Continue conservative medical management Transition Heparin to Coumadin, INR 2.0-3.0. Resume lower dose diuretic therapy, torsemide 20 mg/day along with s pironolactone 12.5 mg on MWF. Continue beta-buddy, aspirin and statin. Consider adding low dose ARB (Losartan 12.5 mg/day) as blood pressure and renal dysfunction permit. Increase activity as tolerated. Admission and Anticipated Discharge Date Admission Date: May 02, 2023 Subjective Patient was seen and examined, chart, medications, telemetry reviewed "Sleepy" this morning but no acute complaints. No chest pains, shortness of breath, tachypalpitations, dizziness. Out of bed with walker with patient awaiting physical therapy No difficulties taking current medical regimen Review of Systems Review of Systems: All systems reviewed & are unremarkable except as noted in Subjective Physical Exam Physical Exam: General: A&Ox3. NAD. Neuro: Much improved left-sided facial droop. + Slurred speech, improved compared to yesterday HENT: Normocephalic. Atraumatic. Neck: No JVD. Bilateral carotid bruits. Lungs: Clear to auscultation Cardiovascular: Irregularly irregular at 80 bpm. Grade II/IV systolic ejection murmur. No diastolic murmur. No rub Abdomen: Soft, nontender. No hepatojugular reflux. Extremities: No edema. No clubbing. No cyanosis. Pulses: The right posterior tibial pulse was 2/4 and the left posterior tibial pulse was 1/4 Constitutional: well nourished and + obese; no acute distress Eyes: PERRL, conjunctivae normal, anicteric sclerae ENMT: external ear and nose normal, oropharynx normal Neck: trachea midline, no thyromegaly Respiratory: no respiratory distress, no labored breathing and no retractions Auscultation: no crackles, no rales, no rhonchi and no wheezes Cardiovascular: Rate/Rhythm: + irregularly irregular Heart Sounds: normal S1, normal S2 and + murmur (2/6 systolic ejection murmur heard at the base) Vessels: femoral pulses present and radial pulses present; no JVD and no carotid bruit Extremities: + edema (Trace bilateral pedal edema) Gastrointestinal (Abdomen): Inspection/Auscultation: normal bowel sounds; abdomen not distended Percussion/Palpation: abdomen soft; no guarding and abdomen not rigid Skin: no rashes, warm and dry Neurologic: CN's II-XI intact bilaterally and moves all extremities Psychiatric: A+Ox3, euthymic affect Results & Data Vital Signs (Past 12 Hours) Vital Signs Temp Pulse Pulse Resp BP BP Pulse Ox 05/06/23 07:54 36.5 C 84 20 139/97 96 05/06/23 02:58 36.4 C L 82 20 116/87 97 05/06/23 00:00 84 O2 Del Method O2 Flow Rate 05/06/23 07:54 Nasal Cannula 2.0 05/06/23 02:58 Nasal Cannula 2 05/06/23 00:00 Laboratory Results Laboratory Results - last 24 hr 05/06/23 05/06/23 05/06/23 07:52 07:52 07:52 WBC 6.67 RBC 2.95 L Hgb 10.3 L Hct 33.2 L MCV 112.5 H MCH 34.9 H MCHC 31.0 L RDW Std Deviation 62.7 H RDW Coeff of Ge 15.2 H Plt Count 218 MPV 11.3 PT 15.6 H INR 1.5 H Sodium 140 Potassium 4.5 Chloride 103 Carbon Dioxide 32 Anion Gap 5 BUN 24 H Creatinine 1.08 Est Cr Clr Drug Dosing 34.5 Est GFR ( Amer) 53.5 Est GFR (Non-Af Amer) 46.1 BUN/Creatinine Ratio 22.2 H Glucose 115 H Calcium 9.1
[2023-05-06] MEDS: TORSEMIDE 10 MG TAB PO SCH (12:03)
[2023-05-06 12:44] LABS: Partial Thromboplastin Ratio 1.7
[2023-05-06 12:55] LABS: Partial Thromboplastin Time 48.1 Seconds (21.0-31.0)
[2023-05-06] MEDS: HEPARIN SODIUM/DEXTROSE 25,000 UNITS/500 ML BAG IV SCH (16:39)
[2023-05-06] MEDS: WARFARIN SOD 1.25 MG TAB PO SCH (16:42)
--- NOTE | 2023-05-06 17:34 | Hospitalist Progress Note ---
Date of Service May 06, 2023 Assessment & Plan (1) NSTEMI (non-ST elevated myocardial infarction): Plan: Patient is an 88-year-old female with history of CAD s/p stent presents with chest pain and found to elevated troponin. Non-ST elevated [place] Ischemic cardiomyopathy Mitral/tricuspid regurgitation Chronic heart failure with reduced EF and diastolic dysfunction Pacemaker H/O AVR --CXR:No acute chest disease. --ECHO: Left ventricle systolic function is mildly reduced. EF 40 to 45%. Large sized apical, septal, anteroseptal, inferior and posterior wall motion abnormality with hypokinesis to akinesis of the segments. Bioprosthetic aortic valve. Left atrium is moderately dilated. Trivial bioprosthetic aortic valve regurgitation. The gradient is normal for this prosthetic aortic valve. There is moderate to severe mitral regurgitation. Severe tricuspid regurgitation. Estimated systolic pulmonary pressure is 41 mmHg. --Troponin elevated at [id number] Continue IV heparin till INR is therapeutic Nitropaste discontinued Appreciate cardiology input Patient preferred conservative management Continue aspirin, Crestor, metoprolol Started low-dose torsemide 20 mg daily, spironolactone on Monday RADHA on CKD III Cr 1.52>1.4>1.0 Avoid nephrotoxic agents as able Monitor renal function Acute CVA: Likely due to afib --MRI Brain:There are two subcentimeter acute lacunar infarcts present within the right frontal lobe. Involutional changes with chronic microvascular ischemic disease. No abnormal enhancement. Discussed with neurology on 05/04/23: Recommends no change in management Aspirin changed to Plavix Reviewed lipid panel Also on IV heparin and Coumadin PT OT, speech eval Increase rosuvastatin to 20 mg daily (H/O simvastatin intolerant) H//O CAD s/p stent Continue aspirin, statin and beta-buddy Hypertension Continue metoprolol Monitor BP Hyperlipidemia On statin Sinus node dysfunction s/p pacemaker H/O paroxysmal atrial fibrillation Continue metoprolol succinate Continue IV heparin till INR therapeutic Resumed Coumadin Monitor INR: 1.5 today Obstructive sleep apnea Chronic hypoxic respiratory failure On home oxygen H/O Essential thrombocythemia On hydroxyurea DVT Px: IV heparin, Coumadin Code Status Full Code Disposition PT OT prior to discharge Admission and Anticipated Discharge Date Admission Date: May 02, 2023 Subjective Patient is seen and examined at bedside Patient slept well overnight Offers no new complaints this morning Still has some dyspnea on exertion Discussed with patient's family at bedside Denies any chest pain, dizziness, nausea, vomiting, abdominal pain Review of Systems Review of Systems: All systems reviewed & are unremarkable except as noted in Subjective Physical Exam Physical Exam: Physical Exam: Vitals signs as noted above General Appearance:Obese, no apparent distress, chronic ill appearing Head: normocephalic, Atraumatic, +Facial droopresolved Eyes: normal inspection, EOMI Neck: supple, Trachea midline Respiratory/Chest: Normal breath sounds, CTA, No accessory muscle use Cardiovascular: Irregularly irregular, +murmur Abdomen/GI:Soft, Non tender, Bowel sounds present Extremities/Musculoskeletal:normal inspection, 1+ pedal edema Neurologic/Psych:AAOX3, grossly no focal neurological deficits Skin: normal color, warm Results & Data Results & Data Vital Signs (Past 12 Hours) Vital Signs Temp Pulse Pulse Resp BP BP Pulse Ox 05/06/23 16:08 81 05/06/23 15:28 36.7 C 84 18 126/88 100 05/06/23 11:47 36.7 C 89 20 121/70 100 05/06/23 07:54 36.5 C 84 20 139/97 96 O2 Del Method O2 Flow Rate 05/06/23 16:08 05/06/23 15:28 Nasal Cannula 2.0 05/06/23 11:47 Nasal Cannula 3.0 05/06/23 07:54 Nasal Cannula 2.0 Laboratory Results Short CBC 05/06/23 Range/Units 07:52 WBC 6.67 (4.8-10.8) K/ul Hgb 10.3 L (12.0-16.0) g/dl Hct 33.2 L (37.0-47.0) % Plt Count 218 (130-400) K/uL BMP 05/06/23 07:52 Sodium 140 Potassium 4.5 Chloride 103 Carbon Dioxide 32 BUN 24 H Creatinine 1.08 Glucose 115 H Calcium 9.1
[2023-05-06] MEDS: ROSUVASTATIN CALCIUM 20 MG TAB PO SCH (21:23)
[2023-05-07 06:07] LABS: Hematocrit (blood only) 32.5 % (37.0-47.0); Hemoglobin 10.2 g/dl (12.0-16.0); Mean Corpuscular Hemoglobin 34.6 pg (25.0-34.0); Mean Corpuscular Hgb Conc 31.4 g/dL (32.0-36.0); Mean Corpuscular Volume 110.2 fL (80.0-100.0); Mean Platelet Volume 11.1 fL (9.4-12.4); Platelet Count 257 K/uL (130-400); RDW Coefficient of Variation 15.5 % (11.5-14.5); RDW Standard Deviation 62.5 fL (36.4-46.3); Red Blood Count 2.95 M/uL (4.20-5.40); White Blood Count 7.17 K/ul (4.8-10.8)
[2023-05-07 06:24] LABS: BUN Creatinine Ratio 22.1 (10-20); Calcium 9.2 mg/dl (8.6-10.3); Creatinine Clr Calc Pharmacy 35.7 ml/min; Est GFR (African American) 55.9 ml/min; Est GFR (Non-African American) 48.3 ml/min; Potassium 3.8 mmol/L (3.5-5.1)
[2023-05-07 06:49] LABS: INR 1.5 (0.9-1.1); Partial Thromboplastin Ratio 1.6; Prothrombin Time 15.9 Seconds (9.0-12.0)
[2023-05-07 06:52] LABS: Partial Thromboplastin Time 45.8 Seconds (21.0-31.0)
[2023-05-07] MEDS: HEPARIN SODIUM/DEXTROSE 25,000 UNITS/500 ML BAG IV SCH (07:04)
[2023-05-07] MEDS: MAGNESIUM OXIDE 400 MG TAB PO SCH (07:55)
[2023-05-07] MEDS: CLOPIDOGREL BISULFATE 75 MG TAB PO SCH (07:55)
[2023-05-07] MEDS: METOPROLOL SUCC 50MG EXT REL TAB PO SCH ×2 (07:56→20:10)
[2023-05-07] MEDS: PANTOprazole 40 MG TAB PO SCH (07:56)
[2023-05-07] MEDS: TORSEMIDE 10 MG TAB PO SCH (07:56)
--- NOTE | 2023-05-07 13:27 | Cardiology Progress Note ---
Date of Service May 07, 2023 Assessment & Plan (1) NSTEMI (non-ST elevated myocardial infarction): (2) Ischemic cardiomyopathy: (3) Mitral regurgitation: (4) Tricuspid regurgitation: (5) RADHA (acute kidney injury): (6) Chronic heart failure with reduced ejection fraction and diastolic dysfunction: (7) Pacemaker: (8) Chronic atrial fibrillation: (9) Multiple lacunar infarcts: Plan Admission with chest pain, NSTEMI. Echo with inferoposterior and septal myocardial infarction. LV systolic dysfunction mild impaired, EF 40-45% with severe TR, moderate to severe MR. Compensated volume standpoint. Two subcentimeter acute lacunar infarcts within the right frontal lobe. 05/06/2023 Patient hemodynamically stable Continue conservative medical management Transition Heparin to Coumadin, INR 2.0-3.0. Resume lower dose diuretic therapy, torsemide 20 mg/day along with s pironolactone 12.5 mg on MWF. Continue beta-buddy, aspirin and statin. Consider adding low dose ARB (Losartan 12.5 mg/day) as blood pressure and renal dysfunction permit. Increase activity as tolerated. 05/07/2023 Continue as above We will start losartan at 12.5 mg daily All other therapies to continue as ordered including metoprolol succinate 100 mg twice daily Still on IV heparin with plans to transition to warfarin Admission and Anticipated Discharge Date Admission Date: May 02, 2023 Subjective Patient seen and examined, chart, medications, telemetry reviewed. Ambulatory in room No cardiac complaints. Denies chest pain shortness of breath, dizziness. No tachypalpitations syncope or near syncope. Telemetry chronic atrial fibrillation with controlled ventricular sponsor rate No worsening edema no neurologic complaint Review of Systems Review of Systems: All systems reviewed & are unremarkable except as noted in Subjective Physical Exam Physical Exam: General: A&Ox3. NAD. Neuro: Much improved left-sided facial droop. + Slurred speech, improved compared to yesterday HENT: Normocephalic. Atraumatic. Neck: No JVD. Bilateral carotid bruits. Lungs: Clear to auscultation Cardiovascular: Irregularly irregular at 80 bpm. Grade II/IV systolic ejection murmur. No diastolic murmur. No rub Abdomen: Soft, nontender. No hepatojugular reflux. Extremities: No edema. No clubbing. No cyanosis. Pulses: The right posterior tibial pulse was 2/4 and the left posterior tibial pulse was 1/4 Constitutional: well nourished and + obese; no acute distress Eyes: PERRL, conjunctivae normal, anicteric sclerae ENMT: external ear and nose normal, oropharynx normal Neck: trachea midline, no thyromegaly Respiratory: no respiratory distress, no labored breathing and no retractions Auscultation: no crackles, no rales, no rhonchi and no wheezes Cardiovascular: Rate/Rhythm: + irregularly irregular Heart Sounds: normal S1, normal S2 and + murmur (2/6 systolic ejection murmur heard at the base) Vessels: femoral pulses present and radial pulses present; no JVD and no carotid bruit Extremities: + edema (Trace bilateral pedal edema) Gastrointestinal (Abdomen): Inspection/Auscultation: normal bowel sounds; abdomen not distended Percussion/Palpation: abdomen soft; no guarding and ab domen not rigid Skin: no rashes, warm and dry Neurologic: CN's II-XI intact bilaterally and moves all extremities Psychiatric: A+Ox3, euthymic affect Results & Data Vital Signs (Past 12 Hours) Vital Signs Temp Pulse Resp BP BP Pulse Ox O2 Del Method 05/07/23 11:28 36.6 C 90 116/76 100 Nasal Cannula 05/07/23 08:00 Nasal Cannula 05/07/23 07:30 36.6 C 80 18 143/69 H 100 Nasal Cannula 05/07/23 03:33 36.8 C 83 20 129/80 99 Nasal Cannula O2 Flow Rate 05/07/23 11:28 2 05/07/23 08:00 2 05/07/23 07:30 2 05/07/23 03:33 2.0 Laboratory Results Laboratory Results - last 24 hr 05/07/23 05/07/23 05/07/23 05:20 05:20 05:20 WBC 7.17 RBC 2.95 L Hgb 10.2 L Hct 32.5 L MCV 110.2 H MCH 34.6 H MCHC 31.4 L RDW Std Deviation 62.5 H RDW Coeff of Ge 15.5 H Plt Count 257 MPV 11.1 PT 15.9 H INR 1.5 H APTT 45.8 H* PTT Ratio 1.6 Sodium 143 Potassium 3.8 Chloride 101 Carbon Dioxide 36 H Anion Gap 6 BUN 23 Creatinine 1.04 Est Cr Clr Drug Dosing 35.7 Est GFR ( Amer) 55.9 Est GFR (Non-Af Amer) 48.3 BUN/Creatinine Ratio 22.1 H Glucose 117 H Calcium 9.2
[2023-05-07] MEDS: LOSARTAN POTASSIUM 25 MG TAB PO SCH (14:24)
[2023-05-07] MEDS ORDERED: WARFARIN SOD 5 MG TAB PO SCH (16:00)
[2023-05-07] MEDS ORDERED: WARFARIN SOD 2.5 MG TAB PO SCH (16:00)
--- NOTE | 2023-05-07 17:18 | Hospitalist Progress Note ---
Date of Service May 07, 2023 Assessment & Plan (1) NSTEMI (non-ST elevated myocardial infarction): Plan: Patient is an 88-year-old female with history of CAD s/p stent presents with chest pain and found to elevated troponin. Non-ST elevated [place] Ischemic cardiomyopathy Mitral/tricuspid regurgitation Chronic heart failure with reduced EF and diastolic dysfunction Pacemaker H/O AVR --CXR:No acute chest disease. --ECHO: Left ventricle systolic function is mildly reduced. EF 40 to 45%. Large sized apical, septal, anteroseptal, inferior and posterior wall motion abnormality with hypokinesis to akinesis of the segments. Bioprosthetic aortic valve. Left atrium is moderately dilated. Trivial bioprosthetic aortic valve regurgitation. The gradient is normal for this prosthetic aortic valve. There is moderate to severe mitral regurgitation. Severe tricuspid regurgitation. Estimated systolic pulmonary pressure is 41 mmHg. --Troponin elevated at [id number] Continue IV heparin till INR is therapeutic Appreciate cardiology input Patient preferred conservative management Continue aspirin, Crestor, metoprolol Started low-dose torsemide 20 mg daily, spironolactone on Monday Added losartan 12.5 mg daily RADHA on CKD III Cr 1.52>1.4>1.0 Avoid nephrotoxic agents as able Monitor renal function Acute CVA: Likely due to afib --MRI Brain:There are two subcentimeter acute lacunar infarcts present within the right frontal lobe. Involutional changes with chronic microvascular ischemic disease. No abnormal enhancement. Discussed with neurology on 05/04/23: Recommends no change in management Aspirin changed to Plavix Reviewed lipid panel Also on IV heparin and Coumadin PT OT, speech eval Increase rosuvastatin to 20 mg daily (H/O simvastatin intolerant) H//O CAD s/p stent Continue aspirin, statin and beta-buddy Hypertension Continue metoprolol Monitor BP Hyperlipidemia On statin Sinus node dysfunction s/p pacemaker H/O paroxysmal atrial fibrillation Continue metoprolol succinate Continue IV heparin till INR therapeutic Resumed Coumadin Monitor INR: 1.5 today Increase Coumadin to 5 mg today Obstructive sleep apnea Chronic hypoxic respiratory failure On home oxygen H/O Essential thrombocythemia On hydroxyurea DVT Px: IV heparin, Coumadin Code Status Full Code Disposition PT OT: Recommends return Home Admission and Anticipated Discharge Date Admission Date: May 02, 2023 Subjective Patient is seen and examined at bedside Patient states feeling much better today Dyspnea on exertion improving Discussed with patient's family at bedside Denies any chest pain, dizziness, nausea, vomiting, abdominal pain Review of Systems Review of Systems: All systems reviewed & are unremarkable except as noted in Subjective Physical Exam Physical Exam: Physical Exam: Vitals signs as noted above General Appearance:Obese, no apparent distress, chronic ill appearing Head: normocephalic, Atraumatic, +Facial droopresolved Eyes: normal inspection, EOMI Neck: supple, Trachea midline Respiratory/Chest: Normal breath sounds, CTA, No accessory muscle use Cardiovascular: Irregularly irregular, +murmur Abdomen/GI:Soft, Non tender, Bowel sounds present Extremities/Musculoskeletal:normal inspection, 1+ pedal edema Neurologic/Psych:AAOX3, grossly no focal neurological deficits Skin: normal color, warm Results & Data Results & Data Vital Signs (Past 12 Hours) Vital Signs Temp Pulse Resp BP BP Pulse Ox O2 Del Method 05/07/23 15:10 36.4 C L 93 H 18 126/85 97 Room Air 05/07/23 11:28 36.6 C 90 116/76 100 Nasal Cannula 05/07/23 08:00 Nasal Cannula 05/07/23 07:30 36.6 C 80 18 143/69 H 100 Nasal Cannula O2 Flow Rate 05/07/23 15:10 05/07/23 11:28 2 05/07/23 08:00 2 05/07/23 07:30 2 Laboratory Results Short CBC 05/07/23 Range/Units 05:20 WBC 7.17 (4.8-10.8) K/ul Hgb 10.2 L (12.0-16.0) g/dl Hct 32.5 L (37.0-47.0) % Plt Count 257 (130-400) K/uL BMP 05/07/23 05:20 Sodium 143 Potassium 3.8 Chloride 101 Carbon Dioxide 36 H BUN 23 Creatinine 1.04 Glucose 117 H Calcium 9.2
[2023-05-07] MEDS: ROSUVASTATIN CALCIUM 20 MG TAB PO SCH (20:11)
[2023-05-07] MEDS: LORazepam 0.5 MG TAB PO PRN (20:16)
[2023-05-08 07:47] LABS: BUN Creatinine Ratio 18.2 (10-20); Calcium 9.1 mg/dl (8.6-10.3); Creatinine Clr Calc Pharmacy 30.6 ml/min; Est GFR (African American) 46.6 ml/min; Est GFR (Non-African American) 40.2 ml/min; Potassium 3.9 mmol/L (3.5-5.1)
[2023-05-08] MEDS: TORSEMIDE 10 MG TAB PO SCH (08:08)
[2023-05-08] MEDS: PANTOprazole 40 MG TAB PO SCH (08:08)
[2023-05-08] MEDS: METOPROLOL SUCC 50MG EXT REL TAB PO SCH ×2 (08:08→20:18)
[2023-05-08] MEDS: CLOPIDOGREL BISULFATE 75 MG TAB PO SCH (08:08)
[2023-05-08] MEDS: LOSARTAN POTASSIUM 25 MG TAB PO SCH (08:08)
[2023-05-08] MEDS: MAGNESIUM OXIDE 400 MG TAB PO SCH (08:08)
[2023-05-08 08:13] LABS: INR 1.9 (0.9-1.1); Prothrombin Time 20.4 Seconds (9.0-12.0)
[2023-05-08 08:34] LABS: Partial Thromboplastin Time 57.5 Seconds (21.0-31.0)
[2023-05-08] MEDS ORDERED: SPIRONOLACTONE 12.5 MG TAB PO SCH (09:15)
--- NOTE | 2023-05-08 11:59 | Cardiology Progress Note ---
Date of Service May 08, 2023 Assessment & Plan (1) NSTEMI (non-ST elevated myocardial infarction): (2) Ischemic cardiomyopathy: (3) Mitral regurgitation: (4) Tricuspid regurgitation: (5) RADHA (acute kidney injury): (6) Chronic heart failure with reduced ejection fraction and diastolic dysfunction: (7) Pacemaker: (8) Chronic atrial fibrillation: (9) Multiple lacunar infarcts: Plan Admission with chest pain, NSTEMI. Echo with inferoposterior and septal myocardial infarction. LV systolic dysfunction mild impaired, EF 40-45% with severe TR, moderate to severe MR. Compensated volume standpoint. Two subcentimeter acute lacunar infarcts within the right frontal lobe. 05/06/2023 Patient hemodynamically stable Continue conservative medical management Transition Heparin to Coumadin, INR 2.0-3.0. Resume lower dose diuretic therapy, torsemide 20 mg/day along with s pironolactone 12.5 mg on MWF. Continue beta-buddy, aspirin and statin. Consider adding low dose ARB (Losartan 12.5 mg/day) as blood pressure and renal dysfunction permit. Increase activity as tolerated. 05/07/2023 Continue as above We will start losartan at 12.5 mg daily All other therapies to continue as ordered including metoprolol succinate 100 mg twice daily Still on IV heparin with plans to transition to warfarin 05/08/2023: Once again stable and improving. INR approaching therapeutic Blood pressure well controlled on current medical regimen Appears to be requiring less diuretic dosing since admission. Will plan on torsemide 3 days/week with spironolactone 12.5 mg 3 days/week on discharge. Close follow-up with [facility] Patient has scheduled appointment for 05/22/2023 B[facility] Barboza [facility] cardiology Admission and Anticipated Discharge Date Admission Date: May 02, 2023 Subjective Patient seen and examined, chart, medications, telemetry reviewed. No acute complaints with patient ambulatory in room. Does urinate frequently with diuretic but otherwise no acute complaints no chest pain or worsening shortness of breath no tachypalpitations no arrhythmias. Patient previously on higher dose diuretics at home but does not appear to be required in hospital Review of Systems Review of Systems: All systems reviewed & are unremarkable except as noted in Subjective Physical Exam Constitutional: well nourished and + obese; no acute distress Eyes: PERRL, conjunctivae normal, anicteric sclerae ENMT: external ear and nose normal, oropharynx normal Neck: trachea midline, no thyromegaly Respiratory: no respiratory distress, no labored breathing and no retractions Auscultation: no crackles, no rales, no rhonchi and no wheezes Cardiovascular: Rate/Rhythm: + irregularly irregular Heart Sounds: normal S1, normal S2 and + murmur (2/6 systolic ejection murmur heard at the base) Vessels: femoral pulses present and radial pulses present; no JVD and no carotid bruit Extremities: + edema (Trace bilateral pedal edema) Gastrointestinal (Abdomen): Inspection/Auscultation: normal bowel sounds; abdomen not distended Percussion/Palpation: abdomen soft; no guarding and abdomen not rigid Skin: no rashes, warm and dry Neurologic: CN's II-XI intact bilaterally and moves all extremities Psychiatric: A+Ox3, euthymic affect Results & Data Vital Signs (Past 12 Hours) Vital Signs Temp Pulse Pulse Resp BP Pulse Ox O2 Del Method 05/08/23 11:11 36.5 C 90 18 106/74 100 Nasal Cannula 05/08/23 08:50 81 05/08/23 07:43 36.7 C 85 18 134/83 98 Nasal Cannula 05/08/23 03:05 36.6 C 83 18 109/70 98 Nasal Cannula O2 Flow Rate 05/08/23 11:11 2 05/08/23 08:50 05/08/23 07:43 2 05/08/23 03:05 2.0 Laboratory Results Laboratory Results - last 24 hr 05/08/23 05/08/23 07:05 07:05 PT 20.4 H INR 1.9 H APTT 57.5 H* PTT Ratio 2.0 Sodium 143 Potassium 3.9 Chloride 99 Carbon Dioxide 41 H* Anion Gap 3 BUN 22 Creatinine 1.21 H Est Cr Clr Drug Dosing 30.6 Est GFR ( Amer) 46.6 Est GFR (Non-Af Amer) 40.2 BUN/Creatinine Ratio 18.2 Glucose 120 H Calcium 9.1
[2023-05-08] MEDS: HEPARIN SODIUM/DEXTROSE 25,000 UNITS/500 ML BAG IV SCH (14:32)
--- NOTE | 2023-05-08 15:49 | Hospitalist Progress Note ---
Date of Service May 08, 2023 Assessment & Plan (1) NSTEMI (non-ST elevated myocardial infarction): Plan: Patient is an 88-year-old female with history of CAD s/p stent presents with chest pain and found to elevated troponin. Non-ST elevated [place] Ischemic cardiomyopathy Mitral/tricuspid regurgitation Chronic heart failure with reduced EF and diastolic dysfunction Pacemaker H/O AVR --CXR:No acute chest disease. --ECHO: Left ventricle systolic function is mildly reduced. EF 40 to 45%. Large sized apical, septal, anteroseptal, inferior and posterior wall motion abnormality with hypokinesis to akinesis of the segments. Bioprosthetic aortic valve. Left atrium is moderately dilated. Trivial bioprosthetic aortic valve regurgitation. The gradient is normal for this prosthetic aortic valve. There is moderate to severe mitral regurgitation. Severe tricuspid regurgitation. Estimated systolic pulmonary pressure is 41 mmHg. --Troponin elevated at [id number] Continue IV heparin till INR is therapeutic Appreciate cardiology input Patient preferred conservative management Continue aspirin, Crestor, metoprolol Plan to discharge on torsemide 20 mg and spironolactone on Monday only (3X/week) Added losartan 12.5 mg daily Likely plan to discharge home tomorrow RADHA on CKD III Cr 1.52>1.4>1.2 Avoid nephrotoxic agents as able Monitor renal function Acute CVA: Likely due to afib --MRI Brain:There are two subcentimeter acute lacunar infarcts present within the right frontal lobe. Involutional changes with chronic microvascular ischemic disease. No abnormal enhancement. Discussed with neurology on 05/04/23: Recommends no change in management Aspirin changed to Plavix Reviewed lipid panel Also on IV heparin and Coumadin PT OT, speech eval Increase rosuvastatin to 20 mg daily (H/O simvastatin intolerant) H//O CAD s/p stent Continue aspirin, statin and beta-buddy Hypertension Continue metoprolol Monitor BP Hyperlipidemia On statin Sinus node dysfunction s/p pacemaker H/O paroxysmal atrial fibrillation Continue metoprolol succinate Continue IV heparin till INR therapeutic Resumed Coumadin Monitor INR: 1.9 today Will give Coumadin to 3 mg today Obstructive sleep apnea Chronic hypoxic respiratory failure On home oxygen H/O Essential thrombocythemia On hydroxyurea DVT Px: IV heparin, Coumadin Code Status Full Code Disposition PT OT: Recommends return Home Admission and Anticipated Discharge Date Admission Date: May 02, 2023 Subjective Patient is seen and examined at bedside Sitting in chair comfortably during my encounter States feeling well today Offers no new complaints Discussed with cardiology today Also discussed with patient's family at bedside No recurrence of chest pain Dyspnea on exertion seem to be resolved No other complaints Review of Systems Review of Systems: All systems reviewed & are unremarkable except as noted in Subjective Physical Exam Physical Exam: Physical Exam: Vitals signs as noted above General Appearance:Obese, no apparent distress, chronic ill appearing Head: normocephalic, Atraumatic, +Facial droopresolved Eyes: normal inspection, EOMI Neck: supple, Trachea midline Respiratory/Chest: Normal breath sounds, CTA, No accessory muscle use Cardiovascular: Irregularly irregular, +murmur Abdomen/GI:Soft, Non tender, Bowel sounds present Extremities/Musculoskeletal:normal inspection, 1+ pedal edema Neurologic/Psych:AAOX3, grossly no focal neurological deficits Skin: normal color, warm Results & Data Results & Data Vital Signs (Past 12 Hours) Vital Signs Temp Pulse Pulse Resp BP BP Pulse Ox 05/08/23 15:14 36.5 C 82 18 126/72 100 05/08/23 11:11 36.5 C 90 18 106/74 100 05/08/23 08:50 81 05/08/23 07:43 36.7 C 85 18 134/83 98 O2 Del Method O2 Flow Rate 05/08/23 15:14 Nasal Cannula 2 05/08/23 11:11 Nasal Cannula 2 05/08/23 08:50 05/08/23 07:43 Nasal Cannula 2 Laboratory Results BMP 05/08/23 07:05 Sodium 143 Potassium 3.9 Chloride 99 Carbon Dioxide 41 H* BUN 22 Creatinine 1.21 H Glucose 120 H Calcium 9.1
[2023-05-08] MEDS ORDERED: WARFARIN SOD 3 MG TAB PO SCH (16:00)
[2023-05-08] MEDS: LORazepam 0.5 MG TAB PO PRN (20:15)
[2023-05-08] MEDS: ROSUVASTATIN CALCIUM 20 MG TAB PO SCH (20:18)
[2023-05-09 07:31] LABS: BUN Creatinine Ratio 18.8 (10-20); Calcium 9.1 mg/dl (8.6-10.3); Est GFR (African American) 51.2 ml/min; Est GFR (Non-African American) 44.1 ml/min
[2023-05-09 07:58] LABS: INR 3.1 (0.9-1.1); Partial Thromboplastin Ratio 2.3; Prothrombin Time 31.9 Seconds (9.0-12.0)
[2023-05-09 08:03] LABS: Partial Thromboplastin Time 65.9 Seconds (21.0-31.0)
[2023-05-09] MEDS: PANTOprazole 40 MG TAB PO SCH (08:12)
[2023-05-09] MEDS: METOPROLOL SUCC 50MG EXT REL TAB PO SCH (08:12)
[2023-05-09] MEDS: MAGNESIUM OXIDE 400 MG TAB PO SCH (08:12)
[2023-05-09] MEDS: CLOPIDOGREL BISULFATE 75 MG TAB PO SCH (08:12)
[2023-05-09] MEDS: LOSARTAN POTASSIUM 25 MG TAB PO SCH (08:13)
[2023-05-09] MEDS: HEPARIN SODIUM/DEXTROSE 25,000 UNITS/500 ML BAG IV SCH (09:38)
[2023-05-09] MEDS ORDERED: HEPARIN STOP ORDER ONE (09:45)
--- NOTE | 2023-05-09 12:33 | Hospitalist Progress Note ---
Date of Service May 09, 2023 Assessment & Plan (1) NSTEMI (non-ST elevated myocardial infarction): Plan: Patient is an 88-year-old female with history of CAD s/p stent presents with chest pain and found to elevated troponin. Non-ST elevated [place] Ischemic cardiomyopathy Mitral/tricuspid regurgitation Chronic heart failure with reduced EF and diastolic dysfunction Pacemaker H/O AVR --CXR:No acute chest disease. --ECHO: Left ventricle systolic function is mildly reduced. EF 40 to 45%. Large sized apical, septal, anteroseptal, inferior and posterior wall motion abnormality with hypokinesis to akinesis of the segments. Bioprosthetic aortic valve. Left atrium is moderately dilated. Trivial bioprosthetic aortic valve regurgitation. The gradient is normal for this prosthetic aortic valve. There is moderate to severe mitral regurgitation. Severe tricuspid regurgitation. Estimated systolic pulmonary pressure is 41 mmHg. --Troponin elevated at [id number] Continue IV heparin till INR is therapeutic Appreciate cardiology input Patient preferred conservative management Continue aspirin, Crestor, metoprolol Plan to discharge on torsemide 20 mg and spironolactone on Monday only (3X/week) Added losartan 12.5 mg daily Likely plan to discharge home today RADHA on CKD III Cr 1.52>1.4>1.1 Avoid nephrotoxic agents as able Monitor renal function Acute CVA: Likely due to afib --MRI Brain:There are two subcentimeter acute lacunar infarcts present within the right frontal lobe. Involutional changes with chronic microvascular ischemic disease. No abnormal enhancement. Discussed with neurology on 05/04/23: Recommends no change in management Aspirin changed to Plavix Reviewed lipid panel Also on IV heparin and Coumadin PT OT, speech eval Increase rosuvastatin to 20 mg daily (H/O simvastatin intolerant) H//O CAD s/p stent Continue aspirin, statin and beta-buddy Hypertension Continue metoprolol Monitor BP Hyperlipidemia On statin Sinus node dysfunction s/p pacemaker H/O paroxysmal atrial fibrillation Continue metoprolol succinate Continue IV heparin till INR therapeutic Resumed Coumadin Monitor INR: 3.1 today Will give Coumadin to 1 mg today Advised to follow-up with Coumadin clinic upon discharge Obstructive sleep apnea Chronic hypoxic respiratory failure On home oxygen H/O Essential thrombocythemia On hydroxyurea DVT Px: IV heparin, Coumadin Code Status Full Code Disposition Home Admission and Anticipated Discharge Date Admission Date: May 02, 2023 Subjective Patient is seen and examined at bedside Had transient heartburn this morning which later resolved Denies any chest pain, shortness of breath, dizziness, nausea, vomiting, abdominal pain Discussed with patient's family at bedside Plan to be discharged home today Review of Systems Review of Systems: All systems reviewed & are unremarkable except as noted in Subjective Physical Exam Physical Exam: Physical Exam: Vitals signs as noted above General Appearance:Obese, no apparent distress, chronic ill appearing Head: normocephalic, Atraumatic, +Facial droopresolved Eyes: normal inspection, EOMI Neck: supple, Trachea midline Respiratory/Chest: Normal breath sounds, CTA, No accessory muscle use Cardiovascular: Irregularly irregular, +murmur Abdomen/GI:Soft, Non tender, Bowel sounds present Extremities/Musculoskeletal:normal inspection, 1+ pedal edema Neurologic/Psych:AAOX3, grossly no focal neurological deficits Skin: normal color, warm Results & Data Results & Data Vital Signs (Past 12 Hours) Vital Signs Temp Pulse Resp BP BP Pulse Ox O2 Del Method 05/09/23 11:34 36.4 C L 82 16 104/69 100 Nasal Cannula 05/09/23 08:00 36.6 C 80 16 101/53 L 99 Nasal Cannula 05/09/23 03:19 36.4 C L 79 20 111/70 96 Nasal Cannula O2 Flow Rate 05/09/23 11:34 2 05/09/23 08:00 2 05/09/23 03:19 2 Laboratory Results [facility] 05/09/23 06:51 Sodium 143 Potassium 4.0 Chloride 98 Carbon Dioxide 40 H BUN 21 Creatinine 1.12 Glucose 116 H Calcium 9.1
--- NOTE | 2023-05-09 12:50 | Discharge Summary ---
Date of Service May 09, 2023 Admission HPI Per Admitting Provider This is a 88-year-old female with past medical history significant for CAD s/p stent s/p bioprosthetic aortic valve replacement, restless leg syndrome, asymptomatic bilateral carotid artery stenosis, hypertension, hyperlipidemia, sinus node dysfunction, s/p cardiac pacemaker, paroxysmal atrial fibrillation, essential thrombocythemia, bilateral leg edema, obstructive sleep apnea on home oxygen, chronic kidney disease stage III, chronic hypoxic respiratory failure, chronic heart failure with preserved ejection fraction. Saw cardiology recently and diuretic doses were adjusted. Patient lives alone at home and ambulates with walker, son lives close by. Today at around 530 to 6 PM when she was eating her dinner with baked potato she felt chest pain 9 /0 in severity, no radiation. She took 2 nitros but did not help the pain. The pain lasted about 2 hours. Currently on Nitropaste. Currently chest pain resolved. Denies any nausea or dizziness. In the ER when she went to bathroom and came back she was exhausted and felt short of breath. Denies any headache. Hard of hearing. No runny nose or sore throat or cough. No fevers. Appetite is down last 2 days. No abdominal pain. Normal bowel and bladder movements. Currently resting comfortably and hemodynamic stable. Admission Exam Per Admitting Provider General- adult Head- atraumatic Eyes- PERRL, ENT- oropharynx clear Neck- supple, no JVD, Lungs- clear to auscultation and percussion Heart- regular rhythm; no murmur, no gallop, no rub appreciated Abdomen- normal bowel sounds, soft, nontender, no masses or hepatosplenomegaly Extremities- mild pretibial edema present, no erythema seen Neuro- alert, oriented x 3; PERRL, EOMI; no facial palsy; no dysarthria; non focal. Skin- warm & dry Principal Diagnosis Non-ST elevated myocardial infarction Acute kidney injury Acute cerebrovascular accident Discharge Data Allergies Allergy/AdvReac Type Severity Reaction Status Date / Time iodine Allergy Intermediate itching Verified 01/29/23 19:52 amiodarone Allergy Mild UNSURE Verified 01/29/23 19:52 etodolac Allergy Mild Unknown Verified 01/29/23 19:52 Sulfa (Sulfonamide Allergy Mild Unknown Verified 01/29/23 19:52 Antibiotics) lisinopril AdvReac Intermediate Swelling Verified 05/07/23 13:34 of Lip/Tongue/Throat gabapentin AdvReac Mild sedation Verified 01/29/23 19:52 Penicillins AdvReac Mild YEAST INF Verified 01/29/23 19:52 simvastatin AdvReac Unknown CAN'T Verified 01/29/23 19:52 REMEMBER Consultations 05/02/23 20:48 ED Decision to Admit Stat 05/03/23 08:00 Consult Cardiology Routine 05/04/23 03:40 Consult Neurology Routine Procedures Performed Laboratory Results WBC 7.17 K/ul (4.8-10.8) 05/07/23 05:20 RBC 2.95 M/uL (4.20-5.40) L 05/07/23 05:20 Hgb 10.2 g/dl (12.0-16.0) L 05/07/23 05:20 Hct 32.5 % (37.0-47.0) L 05/07/23 05:20 MCV 110.2 fL (80.0-100.0) H 05/07/23 05:20 MCH 34.6 pg (25.0-34.0) H 05/07/23 05:20 MCHC 31.4 g/dL (32.0-36.0) L 05/07/23 05:20 RDW Std Deviation 62.5 fL (36.4-46.3) H 05/07/23 05:20 RDW Coeff of Ge 15.5 % (11.5-14.5) H 05/07/23 05:20 Plt Count 257 K/uL (130-400) 05/07/23 05:20 MPV 11.1 fL (9.4-12.4) 05/07/23 05:20 Immature Gran % (Auto) 0.3 % 05/04/23 08:40 Neut % (Auto) 73.7 % 05/04/23 08:40 Lymph % (Auto) 9.5 % 05/04/23 08:40 [place] % (Auto) 13.6 % 05/04/23 08:40 Eos % (Auto) 2.0 % 05/04/23 08:40 Baso % (Auto) 0.9 % 05/04/23 08:40 Neut # (Auto) 4.70 K/uL (1.40-6.50) 05/04/23 08:40 Lymph # (Auto) 0.61 K/uL (1.2-3.4) L 05/04/23 08:40 [place] # (Auto) 0.87 K/uL (0.11-0.59) H 05/04/23 08:40 Eos # (Auto) 0.13 K/uL (0-0.50) 05/04/23 08:40 Baso # (Auto) 0.06 K/uL (0-0.2) 05/04/23 08:40 Immature Gran # (Auto) 0.02 K/uL (0.01-0.20) 05/04/23 08:40 PT 31.9 Seconds (9.0-12.0) H 05/09/23 06:51 INR 3.1 (0.9-1.1) H 05/09/23 06:51 APTT 65.9 Seconds (21.0-31.0) H* 05/09/23 06:51 PTT Ratio 2.3 05/09/23 06:51 Sodium 143 mmol/L (136-145) 05/09/23 06:51 Potassium 4.0 mmol/L (3.5-5.1) 05/09/23 06:51 Chloride 98 mmol/L (98-107) 05/09/23 06:51 Carbon Dioxide 40 mmol/L (21-32) H 05/09/23 06:51 Anion Gap 5 (3-11) 05/09/23 06:51 BUN 21 mg/dl (6-23) 05/09/23 06:51 Creatinine 1.12 mg/dl (0.6-1.2) 05/09/23 06:51 Est Cr Clr Drug Dosing 33.0 ml/min 05/09/23 06:51 Est GFR ( Amer) 51.2 ml/min 05/09/23 06:51 Est GFR (Non-Af Amer) 44.1 ml/min 05/09/23 06:51 BUN/Creatinine Ratio 18.8 (10-20) 05/09/23 06:51 Glucose 116 mg/dl (70-99(Fasting)) H 05/09/23 06:51 POC Glucose 157 mg/dl (70-99) H 05/04/23 03:00 Calcium 9.1 mg/dl (8.6-10.3) 05/09/23 06:51 Magnesium 2.0 mg/dl (1.7-2.4) 05/04/23 03:17 Total Bilirubin 1.2 mg/dl (0.2-1.0) H 05/04/23 03:17 AST 81 U/L (13-39) H 05/04/23 03:17 ALT 21 U/L (7-52) 05/04/23 03:17 Alkaline Phosphatase 76 U/L (34-104) 05/04/23 03:17 Troponin I High Sens 80532.2 pg/ml (0-14) H* D 05/04/23 03:17 B-Natriuretic Peptide 265 pg/ml (0-100) H 05/02/23 20:38 Total Protein 7.7 gm/dl (6.0-8.3) 05/04/23 03:17 Albumin 4.0 gm/dl (3.4-5.0) 05/04/23 03:17 Globulin 3.7 gm/dl (2.5-4.0) 05/04/23 03:17 Albumin/Globulin Ratio 1.1 (0.9-2) 05/04/23 03:17 Triglycerides 92 mg/dl (0-150) 05/05/23 07:48 Cholesterol 95 mg/dl (0-200) 05/05/23 07:48 LDL Cholesterol, Calc 43 mg/dl 05/05/23 07:48 VLDL Cholesterol, Calc 18 mg/dl (0-30) 05/05/23 07:48 HDL Cholesterol 34 mg/dl 05/05/23 07:48 Cholesterol/HDL Ratio 2.8 (0-5) 05/05/23 07:48 Lipase 60 U/L (11-82) 05/02/23 19:28 TSH 4.140 uIu/ml (0.300-4.500) 05/02/23 19:28 SARS-CoV-2 (PCR) NEGATIVE (Negative) 05/02/23 21:50 Influenza Type A (PCR) Negative (Neg) 05/02/23 21:50 Influenza Type B (PCR) Negative (Neg) 05/02/23 21:50 RSV (RT-PCR) Negative (Neg) 05/02/23 21:50 Impressions Chest X-Ray 05/02/23 19:14 XR chest 1V portable CLINICAL HISTORY: cp TECHNIQUE: Single frontal radiograph of the chest was obtained. Comparison: Comparison is made to chest radiograph 01/29/2023 FINDINGS: Dual lead pacemaker is seen. Cardiomegaly is noted. The aortic arch is calcified. The lungs are clear. No evidence of pleural effusion or pneumothorax. IMPRESSION: No acute chest disease. ACT 112: Negative or not required by law. Electronically signed by: Pablo Garza M.D. 05/03/2023 7:43 AM Carotid Doppler Study 05/04/23 03:41 ULTRASOUND OF THE CAROTID ARTERIES CLINICAL HISTORY: tia COMPARISON: None available at the time of this dictation. TECHNIQUE: Real-time, grayscale, and color Doppler sonography of the carotid arteries is performed. Images are reviewed in the transverse and longitudinal planes. FINDINGS: The carotid arteries are patent bilaterally and demonstrate antegrade flow. There is moderate atherosclerotic plaque on the right and moderate atherosclerotic plaque on the left. Normal doppler arterial waveforms are seen throughout. Velocity measurements are listed below. Common carotid peak systolic velocity (cm/sec): RIGHT: 58 LEFT: 70 ICA peak systolic velocity (cm/sec): RIGHT: 77 LEFT: 101 ICA/CC peak systolic ratio: RIGHT: 1.3 LEFT: 1.4 Antegrade flow was shown in the vertebral arteries. The external carotid arteries are patent. IMPRESSION: 1. There is no sonographic evidence of hemodynamically significant stenosis in the right or left carotid arterial system. Moderate atherosclerotic disease is seen. 2. Antegrade flow is shown in the vertebral arteries. Society of Radiologists in Ultrasound consensus guidelines: Normal: ICA PSV is <125 cm/sec and no plaque or intimal thickening is visible sonographically additional criteria include ICA/CCA PSV ratio <2.0 and ICA EDV <40 cm/sec <50% ICA stenosis: ICA PSV is <125 cm/sec and plaque or intimal thickening is visible sonographically additional criteria include ICA/CCA PSV ratio <2.0 and ICA EDV <40 cm/sec 50-69% ICA stenosis: ICA PSV is 125-230 cm/sec and plaque is visible sonographically additional criteria include ICA/CCA PSV ratio of 2.0-4.0 and ICA EDV of 40-100 cm/sec ?70% ICA stenosis but less than near occlusion: ICA PSV is >230 cm/sec and visible plaque and luminal narrowing are seen at mackenzie-scale and color Doppler ultrasound (the higher the Doppler parameters lie above the threshold of 230 cm/sec, the greater the likelihood of severe disease) additional criteria include ICA/CCA PSV ratio >4 and ICA EDV >100 cm/sec ACT 112: Negative or not required by law. Electronically signed by: Pablo Garza M.D. 05/04/2023 7:15 AM Brain MRI 05/04/23 11:01 MR brain wo/w con HISTORY: 88 years-old Female Stroke like symptoms acute stroke like symptoms COMPARISON: Head CT of same day TECHNIQUE: Multiplanar multisequence MRI of the brain was obtained both with and without the use of IV contrast FINDINGS: Motion degraded exam. Midline structures are unremarkable. There is an 8 mm focus of acute diffusion noted within the right frontal lobe deep white matter adjacent to the right frontal horn on image 14 series 5. Additional subcentimeter focus of acute diffusion within the subcortical right frontal lobe, image 11 series 5. No acute or subacute territorial infarct. No acute intracranial hemorrhage, midline shift, abnormal extra-axial collection, hydrocephalus or intracranial mass. Mild scattered T2/FLAIR hyperintense foci throughout the white matter. Involutional changes of the brain parenchyma. Cerebral venous sinuses and major arterial flow voids appear patent. The skull and soft tissues are unremarkable. Bilateral lens repair. Mastoid air cells and paranasal sinuses are clear. No abnormal enhancement. IMPRESSION: 1. No acute intracranial hemorrhage, midline shift or acute territorial infarct. 2. There are two subcentimeter acute lacunar infarcts present within the right frontal lobe. 3. Involutional changes with chronic microvascular ischemic disease. 4. No abnormal enhancement. ACT 112: Negative or not required by law. The above report was generated using voice recognition software. It may contain grammatical, syntax or spelling errors. Electronically signed by: Zacarias Valencia M.D. 05/04/2023 3:[address] 05/05/23 03:00 CT head/brain wo con CLINICAL HISTORY: 88 years-old Female with tia, ffup. Acute or chronic symptoms TECHNIQUE: Multiple axial CT images of the head were obtained without contrast. A dose lowering technique was utilized adhering to the principles of ALARA. CT DOSE: 547.75 mGy.cm COMPARISON: Brain MRI 05/04/2023 FINDINGS: No acute intracranial hemorrhage, midline shift, intracranial mass, hydrocephalus, territorial ischemia or abnormal extra-axial collection. Involutional changes with chronic microvascular ischemic disease. Subcentimeter lacunar infarcts in the subcortical right frontal lobe on image 10 series 2 again noted. Additional more superior lacunar infarcts in the right frontal lobe described on yesterday's MRI is not definitively seen. The calvarium is intact. Prior bilateral lens repair. The paranasal sinuses, mastoid air cells, and middle ear cavities are clear. IMPRESSION: 1. No acute intracranial hemorrhage or acute territorial infarct. 2. The subcentimeter acute lacunar infarcts within the right frontal lobe are better seen on yesterday's MRI. 3. Involutional changes with chronic microvascular ischemic disease. ACT 112: Negative or not required by law. The above report was generated using voice recognition software. It may contain grammatical, syntax or spelling errors. Electronically signed by: Zacarias Valencia M.D. 05/05/2023 6:35 AM Ordered Studies 05/04/23 02:58 CT head/brain wo con Stat 05/04/23 03:41 US carotid doppler BI Routine 05/04/23 11:01 MRI Brain [MR brain wo/w con] Urgent 05/05/23 03:00 CT head/brain wo con Urgent Hospital Course (1) NSTEMI (non-ST elevated myocardial infarction): Patient is an 88-year-old female with history of CAD s/p stent presents with chest pain and found to elevated troponin. Non-ST elevated NM Ischemic cardiomyopathy Mitral/tricuspid regurgitation Chronic heart failure with reduced EF and diastolic dysfunction Pacemaker H/O AVR --CXR:No acute chest disease. --ECHO: Left ventricle systolic function is mildly reduced. EF 40 to 45%. Large sized apical, septal, anteroseptal, inferior and posterior wall motion abnormality with hypokinesis to akinesis of the segments. Bioprosthetic aortic valve. Left atrium is moderately dilated. Trivial bioprosthetic aortic valve regurgitation. The gradient is normal for this prosthetic aortic valve. There is moderate to severe mitral regurgitation. Severe tricuspid regurgitation. Estimated systolic pulmonary pressure is 41 mmHg. --Troponin elevated at [id number] Continue IV heparin till INR is therapeutic Appreciate cardiology input Patient preferred conservative management Continue aspirin, Crestor, metoprolol Plan to discharge on torsemide 20 mg and spironolactone on Monday only (3X/week) Added losartan 12.5 mg daily Likely plan to discharge home today RADHA on CKD III Cr 1.52>1.4>1.1 Avoid nephrotoxic agents as able Monitor renal function Acute CVA: Likely due to afib --MRI Brain:There are two subcentimeter acute lacunar infarcts present within the right frontal lobe. Involutional changes with chronic microvascular ischemic disease. No abnormal enhancement. Discussed with neurology on 05/04/23: Recommends no change in management Aspirin changed to Plavix Reviewed lipid panel Also on IV heparin and Coumadin PT OT, speech eval Increase rosuvastatin to 20 mg daily (H/O simvastatin intolerant) H//O CAD s/p stent Continue aspirin, statin and beta-buddy Hypertension Continue metoprolol Monitor BP Hyperlipidemia On statin Sinus node dysfunction s/p pacemaker H/O paroxysmal atrial fibrillation Continue metoprolol succinate Continue IV heparin till INR therapeutic Resumed Coumadin Monitor INR: 3.1 today Will give Coumadin to 1 mg today Advised to follow-up with Coumadin clinic upon discharge Obstructive sleep apnea Chronic hypoxic respiratory failure On home oxygen H/O Essential thrombocythemia On hydroxyurea DVT Px: IV heparin, Coumadin Code Status Full Code Disposition Home Total Time Total Time Spent Total Time Spent (In Minutes): 54 minutes Discharge Plan Discharge Items Patient Disposition: Home - Self-Care Reason For Visit: CHEST PAIN Discharge Diagnosis: Non-ST elevated myocardial infarction Acute kidney injury Acute cerebrovascular accident Activity: Per Instructions section Exercise/Sports: Wait until after follow-up appointment Non-emergency contact: Primary Care Provider and Cheese Supervisor Call non-emergency contact if: you have any medication questions, your symptoms worsen, your pain is concerning for you and you have a fever Follow-up/Referrals: Yaya Frederick MD [Primary Care Provider] - (Date & Time 05/15/2023 2:40 PM Provider [facility] Pharmacist2 Department Pharmacy [facility] Date & Time 05/15/2023 3:00 PM Provider Yaya Frederick MD Department Family Practice [facility] ) Diet: Heart Healthy Add Attending Provider Instructions: Follow-up with your primary care physician Dr. Frederick on 05/15/2023 2:40 PM Follow-up with your sprinkler worker Dr. Raphael as advised. Office will call you with appointment Follow-up with your Coumadin clinic for monitoring of PT/INR and adjusting Coumadin dose as needed. --Get blood test PT/INR om 05/11/23 and follow-up with Coumadin clinic for further instructions. Seek immediate medical attention if your symptoms reoccur or worsen Please take all medications as instructed on discharge list below. Please call if you have any questions or problems. You can reach a [facility] hospitalist on duty at [facility] 24 hours a day by calling [phone] Home Care: * Take your medications exactly as directed. Don't skip doses. * Remember that recovery after a heart attack takes time. Plan to rest for at lease 4-8 weeks while you recover. Then return to normal activity when your doctor says it's okay. * Ask your doctor about joining a heart rehabilitation program. * Tell your doctor if you are feeling depressed. Feelings of sadness are common after a heart attack, but it is important that you speak to someone if you are feeling overwhelmed by these feelings. * If you are having chest pain, call 911 for an ambulance. Do NOT drive yourself to the hospital. * Ask your family members to learn CPR. * Learn to take your own blood pressure and pulse. Keep a record of your results. Ask your doctor when you should seek emergency medical attention. He or she will tell you which blood pressure reading is dangerous. Lifestyle Changes: * Maintain a healthy weight. Get help to lose any extra pounds. * Cut back on salt. * Limit canned, dried, packaged, and fast foods. * Don't add salt to your food. * Season foods with herbs instead of salt when you cook. * Break the smoking habit. Enroll in a stop-smoking program to improve your chances of success. * Limit fatty foods. * Ask your doctor about having your lipid levels checked regularly. * Build up your activity according to your doctor's recommendation. * Ask your doctor when it's okay to resume sexual activity. * Tell your doctor about any erectile dysfunction (ED) medication you are taking. Some ED medications are not safe if you take certain heart medications. * Try to manage stress. Follow Up: It is important for you to keep your follow up appointments with your medical provider. Pending Studies at Discharge: No Stand-Alone Forms: [facility], Smoking Cessation Medications and DC Order Prescriptions: New clopidogrel 75 mg Tablet 75 mg PO QAM Qty: 30 1RF losartan 25 mg Tablet 12.5 mg PO QAM Qty: 30 0RF Continued Azelastine [place] 1 spray intranasal BID PRN (Reason: Nasal Congestion) hydroxyurea 500 mg capsule 500 mg PO UD Rx Instructions: 500mg po daily x 5 days a week clindamycin HCl 300 mg Capsule 600 mg PO DIRECTED Rx Instructions: Take 1 hr prior to dental apt. warfarin 2.5 mg tablet 1.25 mg PO .6DAYWEEK Rx Instructions: takes 0 mg on mon. fexofenadine [Lizzette Allergy] 180 mg Tablet 180 mg PO DAILY PRN (Reason: allergies) lorazepam 0.5 mg Tablet 0.5 mg PO Q8 PRN (Reason: Anxiety) pantoprazole 40 mg tablet,delayed release (DR/EC) 40 mg PO QAM diphenhydramine HCl [Benadryl Allergy] 25 mg Tablet 25 mg PO Q4 PRN (Reason: allergies) nitroglycerin [Nitrostat] 0.4 mg Tablet, Sublingual 0.4 mg sublingual DIRECTED PRN (Reason: Chest Pain) mometasone 50 mcg/actuation spray,non-aerosol 2 spray INTRANASAL QAM ipratropium bromide 21 mcg (0.03 %) spray,non-aerosol 2 spray INTRANASAL BID PRN (Reason: .rhinitis) camphor-menthol 0.2-3.5 % Gel 1 applic TOPICAL BID PRN (Reason: Pain) Rx Instructions: rub in gently and completely calcium carbonate-vitamin D3 [Caltrate with Vitamin D3] 600 mg-20 mcg (800 unit) Tablet 1 tab PO DAILY Rx Instructions: has 400 units d magnesium oxide 400 mg magnesium Tablet 400 mg PO DAILY Advanced Probiotic 625 mg (10 billion cell) Capsule 2 cap PO DAILY Qty: 10 0RF torsemide 20 mg tablet 20 mg PO UD Qty: 30 0RF Rx Instructions: On Monday, Monday and Monday only (3 times per week) Changed metoprolol succinate 100 mg tablet extended release 24 hr 100 mg PO AMHS Qty: 60 0RF rosuvastatin 10 mg tablet 20 mg PO QPM Qty: 60 0RF spironolactone 25 mg Tablet 12.5 mg PO UD Qty: 30 0RF Rx Instructions: On Monday, Monday, Monday only (3 times per week) Discontinued nitrofurantoin macrocrystal 100 mg capsule 100 mg PO HS Rx Instructions: Take 1 cap before hs with food. aspirin 81 mg Tablet,Chewable 81 mg PO DAILY amoxicillin-pot clavulanate 500-125 mg tablet 1 tab PO BID Qty: 5 0RF Discharge Orders: Discharge Order (Routine); Ordered 05/09/23 Ordered By: Josue Avalos Admission Data Admit Date/Time: 05/02/23 23:06 Attending Provider: Josue Avalos Admit Provider: Stephen Graff Primary Care Provider: Yaya Frederick Other Providers: Stephen Graff ; Rohan Goyal ; [place]
[2023-05-09] MEDS ORDERED: WARFARIN SOD 1 MG TAB PO SCH (16:00)
[2023-05-10] MEDS ORDERED: TORSEMIDE 10 MG TAB PO SCH (09:00)
== END 2023-05-09 14:05 | disposition home or self-care (01) | DRG 280 ==
LOC: ED 18:42 → 2S 23:06 → SUATTDRO 23:06 → 2S 05-03 01:08

== ENCOUNTER 2023-06-04 18:17 | Inpatient (IN) ==
--- NOTE | 2023-06-04 18:39 | Emergency Department Note ---
Impression & Plan Precordial chest pain, Elevated troponin, History of NJ (myocardial infarction), CAD (coronary atherosclerotic disease), RADHA (acute kidney injury) ED Provider Note NAME: SARAH HOLMAN AGE: 88 SEX: F : 1935 ARRIVES VIA: Ambulance INFORMANT: [Patient] ED PROVIDER(S): [Jim Negro MD] CHIEF COMPLAINT: Chest pain HISTORY OF PRESENT ILLNESS: The patient is a 88-year-old female who suffered a non-ST elevation NJ about a month ago. The patient states that today, about 2 hours ago, she was sitting down talking on her phone. She developed pressure across the chest that became severe to an 8/10. She was clammy, no shortness of breath, no nausea or vomiting. She took a total of 2 nitroglycerin and the pain subsided. She had pain for maybe 15 or 20 minutes before it resolved. On the way to our hospital, she was given 4 baby aspirin by EMS. Patient does take Coumadin for A-fib. She has a history of 4 bypasses in 2005 and 1 coronary stent placed in 2006. She states that she was told that if she were to have a cardiac catheterization, she would be considered a high risk for the procedure. Of note, the patient states that she has not used nitroglycerin since discharge from the hospital a month ago. PMHx/PSHx: See Below SOCIAL HISTORY: See Below. PHYSICAL EXAM: GENERAL: Patient is in no acute distress. HEENT: No acute trauma, normocephalic atraumatic, mucous membranes moist, no nasal congestion. NECK: No stridor, no adenopathy, no meningismus, trachea is midline. LUNGS: Clear to auscultation bilaterally, no wheeze, no rhonchi, breath sounds equal. HEART: Very subtle systolic murmur, irregular rhythm, normal rate. ABDOMEN: Soft, nontender, bowel sounds positive, no peritonitis. EXTREMITIES: No cyanosis, mild bilateral pedal edema, full range of motion of all the joints without pain or difficulty, no signs for acute trauma. NEUROLOGIC: Oriented x 3, no acute motor or sensory deficits, no focal weakness. SKIN: No rash, no jaundice, no diaphoresis. DIFFERENTIAL DIAGNOSIS: NJ, angina, anemia, musculoskeletal pain, pneumonia or pneumothorax, aortic dissection, among others. EMERGENCY DEPARTMENT COURSE/PROCEDURES: Prior/Outside records reviewed: Previous discharge summary. ECG per my interpretation: Indication was chest pain. The ECG shows atrial fibrillation with a rate of 85. LVH is present. A right bundle branch block is present. There are inverted T waves in a few of the anterior leads and a few of the lateral leads. There is no ST elevation. No PVCs. A few ventricular pacer spikes seen. Compared to an ECG from 04 May 2023, I see no significant change. Continuous Cardiac Monitoring per my interpretation: An order was placed for continuous cardiac monitoring. The monitor shows a rate of 88 with atrial fibrillation. MEDICAL DECISION MAKING: There is no leukocytosis. A very mild anemia was seen. There was a normal platelet count. INR was therapeutic for someone using Coumadin. The value was 2. There was some acute kidney injury with a creatinine of 1.9, this is above her typical baseline. No concerning liver enzyme elevation. No evidence for pancreatitis. ECG shows atrial fibrillation with LVH and a right bundle branch block. No change compared to previous ECGs, no ST elevation. Cardiac enzyme testing x1 was slightly elevated. This elevation could be chronic, secondary to mismatch or potential cardiac injury. Troponin trending will be necessary. A chest x-ray was done, there was no pneumonia or CHF per my review. No mediastinal widening. The patient presents with chest discomfort that was resolved with 2 of her own nitroglycerin. Luckily, she has not had recurrence of her chest pain. However, she was just in our hospital last month for a non-ST elevation NJ. With the patient's history, with her complaints today, with the troponin elevation, with the acute kidney injury, I do think a hospital stay would be warranted. The troponin needs trended, she needs cardiac monitoring. I did speak with case management, I spoke with the on-call hospitalist. I talked to the patient about all her findings. I did speak with a Dr. Macedo from [facility] cardiology. We discussed the case. The patient is safe for hospitalization at our facility tonight. She does not r equire emergent transfer to a tertiary center. DISPOSITION: Patient's presentation and findings warrant a hospital stay. 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 ml/min CKD (chronic kidney disease), stage III Current use of intermediate 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 Dermatitis Essential thrombocythemia Generalized weakness HLD (hyperlipidemia) HTN (hypertension) Replacement of aortic valve (Unknown) "[facility] [place] 2005 Mary-Good " Sensorineural hearing loss of both ears Sinus node dysfunction 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 UTI due to extended-spectrum beta lactamase (ESBL) producing Escherichia coli Surgical History Coronary artery bypass grafting (Unknown) "[facility] [place] April 2006 VARGHESE to LAD SVG's to diagonal, obtuse marginal, RCA " History of colonoscopy with polypectomy History of cystoscopy History of tubal ligation Implantation of aortic valve prosthesis or synthetic device (Unknown) Placement of stent in coronary artery (Unknown) "[facility] December 2006 " Status post transcatheter aortic valve replacement (TAVR) using bioprosthesis Stented coronary artery (Unknown) Total abdominal hysterectomy with bilateral salpingo-oophorectomy (Unknown) Family History Father Prostate cancer Mother Diabetes Sister Coronary heart disease Social History Smoking Status: Never smoker Second Hand Exposure: No; Do You Dip or Chew Tobacco: No; Hx Alcohol Use: No Hx Substance Use: No Preferred Language: [place] Citizen Communication Ability: Effective Visual Impairment: No Limitations Hearing Ability: Normal Life Skills Instructor Required: No Beliefs That Will Affect Care: None marital status: / Current Living Situation: Alone Feels Safe at Home: Yes Assistive Devices: Hearing Aid - Bilateral and Walker Allergies Allergies Allergy/AdvReac Type Severity Reaction Status Date / Time iodine Allergy Intermediate itching Verified 06/04/23 20:11 amiodarone Allergy Mild UNSURE Verified 06/04/23 20:11 etodolac Allergy Mild Unknown Verified 06/04/23 20:11 Sulfa (Sulfonamide Allergy Mild Unknown Verified 06/04/23 20:11 Antibiotics) lisinopril AdvReac Intermediate Swelling Verified 06/04/23 20:11 of Lip/Tongue/Throat gabapentin AdvReac Mild sedation Verified 06/04/23 20:11 Penicillins AdvReac Mild YEAST INF Verified 06/04/23 20:11 simvastatin AdvReac Unknown CAN'T Verified 06/04/23 20:11 REMEMBER Home Meds Home Medications Medication Instructions Recorded Confirmed calcium carbonate 600 mg-vitamin 1 tab PO DAILY 01/29/23 06/04/23 D3 20 mcg (800 unit) tablet (Caltrate with Vitamin D3) clindamycin HCl 300 mg capsule 600 mg PO DIRECTED 01/29/23 06/04/23 diphenhydramine HCl 25 mg tablet 25 mg PO Q4 PRN allergies 01/29/23 06/04/23 (Benadryl Allergy) fexofenadine 180 mg tablet 180 mg PO DAILY PRN allergies 01/29/23 06/04/23 (Lizzette Allergy) hydroxyurea 500 mg capsule 500 mg PO UD 01/29/23 06/04/23 ipratropium bromide 21 mcg (0.03 2 spray intranasal BID PRN 01/29/23 06/04/23 %) nasal spray .rhinitis magnesium oxide 400 mg PO DAILY 01/29/23 06/04/23 mometasone 50 mcg/actuation nasal 2 spray intranasal QAM 01/29/23 06/04/23 spray nitroglycerin 0.4 mg sublingual 0.4 mg sublingual DIRECTED PRN 01/29/23 06/04/23 tablet (Nitrostat) Chest Pain pantoprazole 40 mg tablet,delayed 40 mg PO QAM 01/29/23 06/04/23 release warfarin 2.5 mg tablet 1.25 mg PO .6DAYWEEK 01/29/23 06/04/23 Bifidobacterium infantis 4 mg 8 mg PO DAILY 05/18/23 06/04/23 capsule (Align) azelastine 137 mcg (0.1 %) nasal 1 spray intranasal BID PRN 05/18/23 06/04/23 spray aerosol allergies buspirone 5 mg tablet 5 mg PO BID PRN Anxiety 05/18/23 06/04/23 Previous Rx's Medication Instructions Recorded clopidogrel 75 mg tablet 75 mg PO QAM #30 tabs 05/09/23 losartan 25 mg tablet 12.5 mg PO QAM #30 tabs 05/09/23 metoprolol succinate 100 mg 100 mg PO AMHS #60 tabs 05/09/23 tablet,extended release 24 hr rosuvastatin 10 mg tablet 20 mg PO QPM #60 tabs 05/09/23 spironolactone 25 mg tablet 12.5 mg PO UD #30 tabs 05/09/23 torsemide 20 mg tablet 20 mg PO UD #30 tabs 05/09/23 Results & Data (ED) Vital Signs Vital Signs - 24 hr 06/04/23 18:36 06/04/23 18:24 06/04/23 18:24 Pulse Rate 88 Pulse Rate [Bilateral] 83 Pulse Rate from SpO2 Sensor Respiratory Rate 20 Blood Pressure Blood Pressure [Right Arm] 154/96 H Blood Pressure Mean Blood Pressure Mean [Right Arm] 115 Pulse Oximetry 100 100 Oxygen Delivery Method Nasal Cannula Nasal Cannula Oxygen Flow Rate 2 2 Sepsis Recent Fever Within 48 Hours Sepsis New/Unexplained Change in Mental Status Sepsis Action Taken by Nursing 06/04/23 19:14 06/04/23 18:44 06/04/23 18:44 Pulse Rate 81 88 Pulse Rate [Bilateral] Pulse Rate from SpO2 Sensor 86 Respiratory Rate 18 23 Blood Pressure 154/96 H Blood Pressure [Right Arm] Blood Pressure Mean 120 Blood Pressure Mean [Right Arm] Pulse Oximetry 100 100 Oxygen Delivery Method Room Air Room Air Oxygen Flow Rate Sepsis Recent Fever Within 48 Hours No Sepsis New/Unexplained Change in Mental Status No Sepsis Action Taken by Nursing No Action Required Home Medications Current Medication List: was personally reviewed by me Laboratory Data Attestation: I reviewed the patient's lab results. 06/04/23 18:45 06/04/23 19:48 Lab Results 06/04/23 06/04/23 06/04/23 Range/Units 18:45 18:45 18:45 WBC 6.87 (4.8-10.8) K/ul RBC 3.31 L (4.20-5.40) M/uL Hgb 11.4 L (12.0-16.0) g/dl Hct 35.7 L (37.0-47.0) % MCV 107.9 H (80.0-100.0) fL MCH 34.4 H (25.0-34.0) pg MCHC 31.9 L (32.0-36.0) g/dL RDW Std Deviation 61.4 H (36.4-46.3) fL RDW Coeff of Ge 16.2 H (11.5-14.5) % Plt Count 299 (130-400) K/uL MPV 12.3 (9.4-12.4) fL Immature Gran % (Auto) 0.3 % Neut % (Auto) 73.1 % Lymph % (Auto) 10.9 % Parke % (Auto) 11.9 % Eos % (Auto) 3.1 % Baso % (Auto) 0.7 % Neut # (Auto) 5.02 (1.40-6.50) K/uL Lymph # (Auto) 0.75 L (1.2-3.4) K/uL Parke # (Auto) 0.82 H (0.11-0.59) K/uL Eos # (Auto) 0.21 (0-0.50) K/uL Baso # (Auto) 0.05 (0-0.2) K/uL Immature Gran # (Auto) 0.02 (0.01-0.20) K/uL PT Cancelled INR Cancelled APTT Cancelled PTT Ratio Cancelled Sodium Cancelled Potassium Cancelled Chloride Cancelled Carbon Dioxide Cancelled Anion Gap Cancelled BUN Cancelled Creatinine Cancelled Est Cr Clr Drug Dosing Cancelled Est GFR ( Amer) Cancelled Est GFR (Non-Af Amer) Cancelled BUN/Creatinine Ratio Cancelled Glucose Cancelled Calcium Cancelled Magnesium Cancelled Total Bilirubin Cancelled AST Cancelled ALT Cancelled Alkaline Phosphatase Cancelled Troponin I High Sens Cancelled Total Protein Cancelled Albumin Cancelled Globulin Cancelled Albumin/Globulin Ratio Cancelled Lipase Cancelled 06/04/23 06/04/23 Range/Units 19:48 19:48 WBC (4.8-10.8) K/ul RBC (4.20-5.40) M/uL Hgb (12.0-16.0) g/dl Hct (37.0-47.0) % MCV (80.0-100.0) fL MCH (25.0-34.0) pg MCHC (32.0-36.0) g/dL RDW Std Deviation (36.4-46.3) fL RDW Coeff of Ge (11.5-14.5) % Plt Count (130-400) K/uL MPV (9.4-12.4) fL Immature Gran % (Auto) % Neut % (Auto) % Lymph % (Auto) % Parke % (Auto) % Eos % (Auto) % Baso % (Auto) % Neut # (Auto) (1.40-6.50) K/uL Lymph # (Auto) (1.2-3.4) K/uL Parke # (Auto) (0.11-0.59) K/uL Eos # (Auto) (0-0.50) K/uL Baso # (Auto) (0-0.2) K/uL Immature Gran # (Auto) (0.01-0.20) K/uL PT 20.5 H INR 2.0 H APTT 33.8 H PTT Ratio 1.2 Sodium 141 Potassium 3.9 Chloride 100 Carbon Dioxide 34 H Anion Gap 7 BUN 39 H Creatinine 1.94 H Est Cr Clr Drug Dosing 18.6 Est GFR ( Amer) 26.3 Est GFR (Non-Af Amer) 22.7 BUN/Creatinine Ratio 20.1 H Glucose 106 H Calcium 10.0 Magnesium 1.7 Total Bilirubin 0.9 AST 26 ALT 13 Alkaline Phosphatase 72 Troponin I High Sens 32.7 H Total Protein 7.6 Albumin 4.1 Globulin 3.5 Albumin/Globulin Ratio 1.2 Lipase 63 Imaging Data Radiologist's Impression: Chest X-Ray 06/04/23 18:24 XR chest 1V portable CLINICAL HISTORY: Chest pain, nonspecific TECHNIQUE: Single frontal radiograph of the chest was obtained. Comparison: Comparison is made to chest radiograph 05/18/2023 FINDINGS: Median sternotomy wires are unchanged. Dual-lead pacemaker is seen. Cardiomegaly is noted. The lungs are clear. There is elevation of the right hemidiaphragm. No evidence of pleural effusion or pneumothorax. IMPRESSION: No acute chest disease. ACT 112: Negative or not required by law. Electronically signed by: Pablo Garza M.D. 06/04/2023 7:37 PM Discharge Plan Visit Data Chief Complaint: Chest Pain ED Provider: Jim Negro Discharge Problem: Precordial chest pain, Elevated troponin, History of NJ (myocardial infarction), CAD (coronary atherosclerotic disease), RADHA (acute kidney injury) Patient Disposition: Admitted As Inpatient Condition: Fair Forms Stand Alone Forms: [facility] [employer] Prescriptions Prescriptions: No Action hydroxyurea 500 mg capsule 500 mg PO UD Rx Instructions: 500mg po daily x 5 days a week clindamycin HCl 300 mg Capsule 600 mg PO DIRECTED Rx Instructions: Take 1 hr prior to dental apt. warfarin 2.5 mg tablet 1.25 mg PO .6DAYWEEK Rx Instructions: takes 0 mg on mon. fexofenadine [Lizzette Allergy] 180 mg Tablet 180 mg PO DAILY PRN (Reason: allergies) pantoprazole 40 mg tablet,delayed release (DR/EC) 40 mg PO QAM diphenhydramine HCl [Benadryl Allergy] 25 mg Tablet 25 mg PO Q4 PRN (Reason: allergies) nitroglycerin [Nitrostat] 0.4 mg Tablet, Sublingual 0.4 mg sublingual DIRECTED PRN (Reason: Chest Pain) mometasone 50 mcg/actuation spray,non-aerosol 2 spray INTRANASAL QAM ipratropium bromide 21 mcg (0.03 %) spray,non-aerosol 2 spray INTRANASAL BID PRN (Reason: .rhinitis) calcium carbonate-vitamin D3 [Caltrate with Vitamin D3] 600 mg-20 mcg (800 unit) Tablet 1 tab PO DAILY Rx Instructions: has 400 units d magnesium oxide 400 mg magnesium Tablet 400 mg PO DAILY clopidogrel 75 mg Tablet 75 mg PO QAM Qty: 30 1RF losartan 25 mg Tablet 12.5 mg PO QAM Qty: 30 0RF torsemide 20 mg tablet 20 mg PO UD Qty: 30 0RF Rx Instructions: On Monday, Monday and Monday only (3 times per week) metoprolol succinate 100 mg tablet extended release 24 hr 100 mg PO AMHS Qty: 60 0RF Rx Instructions: Needs to take tonight spironolactone 25 mg Tablet 12.5 mg PO UD Qty: 30 0RF Rx Instructions: On Monday, Monday, Monday only (3 times per week) rosuvastatin 10 mg tablet 20 mg PO QPM Qty: 60 0RF Rx Instructions: needs to take tonight buspirone 5 mg tablet 5 mg PO BID PRN (Reason: Anxiety) azelastine 137 mcg (0.1 %) Aerosol,[place] 1 spray INTRANASAL BID PRN (Reason: allergies) Rx Instructions: administer into each nostril Align 4 mg Capsule 8 mg PO DAILY Referrals Referrals: Yaya Frederick MD [Primary Care Provider] -
[2023-06-04 19:08] LABS: Basophils # (auto) 0.05 K/uL (0-0.2); Basophils % (auto) 0.7 %; Eosinophils # (auto) 0.21 K/uL (0-0.50); Eosinophils % (auto) 3.1 %; Hematocrit (blood only) 35.7 % (37.0-47.0); Hemoglobin 11.4 g/dl (12.0-16.0); Immature Granulocytes # (auto) 0.02 K/uL (0.01-0.20); Immature Granulocytes % (auto) 0.3 %; Lymphocytes # (auto) 0.75 K/uL (1.2-3.4); Lymphocytes % (auto) 10.9 %; Mean Corpuscular Hemoglobin 34.4 pg (25.0-34.0); Mean Corpuscular Hgb Conc 31.9 g/dL (32.0-36.0); Mean Corpuscular Volume 107.9 fL (80.0-100.0); Mean Platelet Volume 12.3 fL (9.4-12.4); Monocytes # (auto) 0.82 K/uL (0.11-0.59); Monocytes % (auto) 11.9 %; Neutrophils # (auto) 5.02 K/uL (1.40-6.50); Neutrophils % (auto) 73.1 %; Platelet Count 299 K/uL (130-400); RDW Coefficient of Variation 16.2 % (11.5-14.5); RDW Standard Deviation 61.4 fL (36.4-46.3); Red Blood Count 3.31 M/uL (4.20-5.40); White Blood Count 6.87 K/ul (4.8-10.8)
--- NOTE | 2023-06-04 19:40 | XRay Report ---
XR chest 1V portable CLINICAL HISTORY: Chest pain, nonspecific TECHNIQUE: Single frontal radiograph of the chest was obtained. Comparison: Comparison is made to chest radiograph 05/18/2023 FINDINGS: Median sternotomy wires are unchanged. Dual-lead pacemaker is seen. Cardiomegaly is noted. The lungs are clear. There is elevation of the right hemidiaphragm. No evidence of pleural effusion or pneumoth orax. IMPRESSION: No acute chest disease. ACT 112: Negative or not required by law. Electronically signed by: Pablo Garza M.D. 06/04/2023 7:37 PM
[2023-06-04 20:28] LABS: Albumin Globulin Ratio 1.2 (0.9-2); Albumin Level 4.1 gm/dl (3.4-5.0); BUN Creatinine Ratio 20.1 (10-20); Bilirubin,Total 0.9 mg/dl (0.2-1.0); Creatinine Clr Calc Pharmacy 18.6 ml/min; Est GFR (African American) 26.3 ml/min; Est GFR (Non-African American) 22.7 ml/min; Globulin 3.5 gm/dl (2.5-4.0); Magnesium 1.7 mg/dl (1.7-2.4); Potassium 3.9 mmol/L (3.5-5.1); Total Protein 7.6 gm/dl (6.0-8.3)
[2023-06-04 20:34] LABS: Troponin I High Sensitivity 32.7 pg/ml (0-14)
[2023-06-04 20:59] LABS: Partial Thromboplastin Ratio 1.2; Partial Thromboplastin Time 33.8 Seconds (21.0-31.0); Prothrombin Time 20.5 Seconds (9.0-12.0)
[2023-06-05] MEDS ORDERED: ALBUMIN 25% 25 GM/100 ML VIAL IV ONE (00:28)
[2023-06-05] MEDS ORDERED: PROMETHAZINE HCL 12.5 MG in SODIUM CHLORIDE 0.9% 50 ML IV PRN (00:33)
[2023-06-05] MEDS ORDERED: traMADol HCL 50 MG TABLET PO PRN (00:33)
[2023-06-05] MEDS ORDERED: NITROGLYCERIN SL 0.4 MG/TAB TAB SL PRN (00:33)
[2023-06-05] MEDS ORDERED: HYDROmorphone INJ 0.5 MG/0.5 ML SYR IV PRN (00:33)
--- NOTE | 2023-06-05 00:35 | History & Physical Report ---
Date of Service June 05, 2023 Assessment & Plan (1) NSTEMI (non-ST elevated myocardial infarction): Plan: Anginal symptoms with troponin elevation hx CAD sp CABG/stenting Failed outpatient medical management with patient's second ER visit for chest pain symptoms following recent confinement last month for NSTEMI Complicated UTI (ESBL E. coli UTI on outpatient urine CS) History recurrent UTIs, urge incontinence as per records no sepsis for now ARF on CKD chronic systolic heart failure, right-sided heart failure symptoms with fluid retention, history of pulmonary hypertension, history of GAVIN CPAP intolerance history of bovine AVR, valvular heart disease (moderate to severe MR/severe TR) SSS sp PPM on Coumadin, rate controlled, INR therapeutic hx PVD Recent inpatient CVA hyperlipidemia on statin Rx DM2 diet-controlled, well-controlled as of recent hemoglobin A1c of 5.9 last December 2022 Chronic anemia, hemoglobin at baseline essential thrombocythemia on Hydrea PCU Antiplatelet Rx, beta-buddy, statin Rx Cardiology consult RE NSTEMI (ER provider already in touch with Dr. Macedo recommends keeping patient at [facility] for now.) Hold Coumadin for now, n.p.o. until patient seen by cardiology in anticipation of ischemic work-up. Ertapenem for complicated UTI with history ESBL [facility] ID consult once urine CS back Follow troponin, TTE if with progression Monitor creatinine response to IVF (albumin preferred over crystalloid given right-sided heart failure symptoms hold home diuretic and spironolactone until creatinine back to baseline Renal ultrasound if kidney function does not improve. ISS BG goal 1 10-1 40, carb count coverage DVT prophylaxis. Coumadin INR goal between 2 and 3, IV heparin if INR less than 2 while Coumadin on hold for NSTEMI Full code Patient son requesting updates providers. Mr. Jonathan Cruz, contact #[phone]. Text document was generated using [employer]) voice recognition software. It may contain grammatical or spelling errors. Kindly contact undersigned for clarification of any documentation item in question. History of Present Illness Chief Complaint: Chest pain Primary Care Provider: Yaya Frederick MD History obtained from patient and records. Medical history significant for chronic systolic heart failure (EF 40-45%, TTE 2022), SSS sp PPM on Coumadin, CAD sp CABG/stenting, hx PVD, history of bovine AVR, valvular heart disease (moderate to severe MR/severe TR), pulmonary hypertension CVA, HTN, hyperlipidemia, mild GAVIN (CPAP intolerance as per records), DM2 diet- controlled, CRI (baseline creatinine 1.1), history urge incontinence, recurrent UTIs, hx ESBL UTI, chronic anemia (baseline hemoglobin 10-11 ), essential thrombocythemia on Hydrea, GERD, history of colonic diverticulosis/polyps, restless leg syndrome. Last confinement May 02 to 2022 for NSTEMI. Interventional cardiology recommended transfer to tertiary care for further invasive management if needed as per Cardiology consultation. Patient opted for medical management as per discharge note. Patient had embolic CVA during confinement. Patient aspirin changed to Plavix. Patient seen at the ER last May 18 for chest pain, shortness of breath and arm pain. Patient declined inpatient observation recommendation. Few days ago patient noted dysuria symptoms without fever, chills, flank pain. Outpatient urine CS grew ESBL E. coli. PCP recommended repeat UA collection. Last night, patient had pressure across her chest associated with clammy sensation. No shortness of breath, no cough. Discomfort relieved by nitroglycerin intake at home. Patient compliant with home meds, no unusual stress. Patient admits to fluid retention/weight gain if she misses dose of torsemide. MEDICAL HISTORY: As above. SURGICAL HISTORY: History of coronary artery bypass graft, Total abdominal hysterectomy, bilateral salpingo-oophorectomy, bladder/urethra surgery, PPM for sinus node dysfunction, knee surgery, BTL, bioprosthetic AVR FAMILY HISTORY: Hypertension. Diabetes. Stroke. PERSONAL/ SOCIAL HISTORY: Nonsmoker. No chronic intake of alcoholic beverage. She is a retired [employer] employee. Allergies Allergy/AdvReac Type Severity Reaction Status Date / Time iodine Allergy Intermediate itching Verified 06/04/23 20:11 amiodarone Allergy Mild UNSURE Verified 06/04/23 20:11 etodolac Allergy Mild Unknown Verified 06/04/23 20:11 Sulfa (Sulfonamide Allergy Mild Unknown Verified 06/04/23 20:11 Antibiotics) lisinopril AdvReac Intermediate Swelling Verified 06/04/23 20:11 of Lip/Tongue/Throat gabapentin AdvReac Mild sedation Verified 06/04/23 20:11 Penicillins AdvReac Mild YEAST INF Verified 06/04/23 20:11 simvastatin AdvReac Unknown CAN'T Verified 06/04/23 20:11 REMEMBER Home Medications Medication Instructions Recorded Confirmed Type calcium carbonate 600 mg-vitamin 1 tab PO DAILY 01/29/23 06/04/23 History D3 20 mcg (800 unit) tablet (Caltrate with Vitamin D3) clindamycin HCl 300 mg capsule 600 mg PO DIRECTED 01/29/23 06/04/23 History diphenhydramine HCl 25 mg tablet 25 mg PO Q4 PRN allergies 01/29/23 06/04/23 History (Benadryl Allergy) fexofenadine 180 mg tablet 180 mg PO DAILY PRN allergies 01/29/23 06/04/23 History (Lizzette Allergy) hydroxyurea 500 mg capsule 500 mg PO UD 01/29/23 06/04/23 History ipratropium bromide 21 mcg (0.03 2 spray intranasal BID PRN 01/29/23 06/04/23 History %) nasal spray .rhinitis magnesium oxide 400 mg PO DAILY 01/29/23 06/04/23 History mometasone 50 mcg/actuation nasal 2 spray intranasal QAM 01/29/23 06/04/23 History spray nitroglycerin 0.4 mg sublingual 0.4 mg sublingual DIRECTED PRN 01/29/23 06/04/23 History tablet (Nitrostat) Chest Pain pantoprazole 40 mg tablet,delayed 40 mg PO QAM 01/29/23 06/04/23 History release warfarin 2.5 mg tablet 1.25 mg PO .6DAYWEEK 01/29/23 06/04/23 History clopidogrel 75 mg tablet 75 mg PO QAM #30 tabs 05/09/23 06/04/23 Rx losartan 25 mg tablet 12.5 mg PO QAM #30 tabs 05/09/23 06/04/23 Rx metoprolol succinate 100 mg 100 mg PO AMHS #60 tabs 05/09/23 06/04/23 Rx tablet,extended release 24 hr rosuvastatin 10 mg tablet 20 mg PO QPM #60 tabs 05/09/23 06/04/23 Rx spironolactone 25 mg tablet 12.5 mg PO UD #30 tabs 05/09/23 06/04/23 Rx torsemide 20 mg tablet 20 mg PO UD #30 tabs 05/09/23 06/04/23 Rx Bifidobacterium infantis 4 mg 8 mg PO DAILY 05/18/23 06/04/23 History capsule (Align) azelastine 137 mcg (0.1 %) nasal 1 spray intranasal BID PRN 05/18/23 06/04/23 History spray aerosol allergies buspirone 5 mg tablet 5 mg PO BID PRN Anxiety 05/18/23 06/04/23 History 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 ml/min CKD (chronic kidney disease), stage III Current use of assisted 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 Dermatitis Essential thrombocythemia Generalized weakness HLD (hyperlipidemia) HTN (hypertension) Replacement of aortic valve (Unknown) "[facility] 2005 [facility] " Sensorineural hearing loss of both ears Sinus node dysfunction 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 UTI due to extended-spectrum beta lactamase (ESBL) producing Escherichia coli Surgical History Coronary artery bypass grafting (Unknown) "[facility] April 2006 VARGHESE to LAD SVG's to diagonal, obtuse marginal, RCA " History of colonoscopy with polypectomy History of cystoscopy History of tubal ligation Implantation of aortic valve prosthesis or synthetic device (Unknown) Placement of stent in coronary artery (Unknown) "[facility] December 2006 " Status post transcatheter aortic valve replacement (TAVR) using bioprosthesis Stented coronary artery (Unknown) Total abdominal hysterectomy with bilateral salpingo-oophorectomy (Unknown) Family History Father Prostate cancer Mother Diabetes Sister Coronary heart disease Social History Smoking Status: Never smoker Second Hand Exposure: No; Do You Dip or Chew Tobacco: No; Hx Alcohol Use: No Hx Substance Use: No Preferred Language: Ghanaian Communication Ability: Effective Visual Impairment: No Limitations Hearing Ability: Normal Heel Top Lift Splitter Required: No Beliefs That Will Affect Care: None marital status: / Current Living Situation: Alone Other Information That Helps Us Care for You: No Feels Safe at Home: Yes Safety Concerns: Feels Safe At This Time Assistive Devices: Hearing Aid - Bilateral and Walker Review of Systems Review of Systems: As per HPI, all other systems reviewed and negative Physical Exam Physical Exam: GENERAL: Pleasant, obese, no respiratory distress SKIN: Normal color, warm HEENT: pink palpebral conjunctivae, no ptosis, dry buccal mucosa NECK : Supple, short neck, no tenderness CHEST : Decreased breath sounds, no tenderness HEART : Irregular, systolic murmur ABDOMEN: Some distention, no overt tenderness EXTREMITIES : Minimal bilateral LE swelling, no LE tenderness, no other conspicuous deformities noted NEUROLOGIC : Coherent, no facial asymmetry, no other gross focality Results & Data Results & Data Vital Signs (Past 12 Hours) Vital Signs Pulse Pulse Resp BP BP Pulse Ox O2 Del Method 06/05/23 00:01 102/76 06/05/23 00:01 82 16 06/04/23 23:31 77 23 100 Nasal Cannula 06/04/23 23:31 149/121 H 06/04/23 23:05 84 22 99 Nasal Cannula 06/04/23 23:05 151/89 H 06/04/23 22:30 80 18 100 Nasal Cannula 06/04/23 22:30 146/102 H 06/04/23 22:20 177/99 H 06/04/23 22:20 80 17 99 Nasal Cannula 06/04/23 22:29 85 06/04/23 22:00 83 18 100 Nasal Cannula 06/04/23 21:00 80 20 100 Nasal Cannula 06/04/23 18:44 88 23 100 Room Air 06/04/23 18:44 154/96 H 06/04/23 19:14 81 18 100 Room Air 06/04/23 18:24 100 Nasal Cannula 06/04/23 18:24 83 20 154/96 H 100 Nasal Cannula 06/04/23 18:36 88 O2 Flow Rate 06/05/23 00:01 06/05/23 00:01 06/04/23 23:31 2 06/04/23 23:31 06/04/23 23:05 2 06/04/23 23:05 06/04/23 22:30 2 06/04/23 22:30 06/04/23 22:20 06/04/23 22:20 2 06/04/23 22:29 06/04/23 22:00 2 06/04/23 21:00 2 06/04/23 18:44 06/04/23 18:44 06/04/23 19:14 06/04/23 18:24 2 06/04/23 18:24 2 06/04/23 18:36 Laboratory Results Laboratory Results WBC 6.87 K/ul (4.8-10.8) 06/04/23 18:45 RBC 3.31 M/uL (4.20-5.40) L 06/04/23 18:45 Hgb 11.4 g/dl (12.0-16.0) L 06/04/23 18:45 Hct 35.7 % (37.0-47.0) L 06/04/23 18:45 MCV 107.9 fL (80.0-100.0) H 06/04/23 18:45 MCH 34.4 pg (25.0-34.0) H 06/04/23 18:45 MCHC 31.9 g/dL (32.0-36.0) L 06/04/23 18:45 RDW Std Deviation 61.4 fL (36.4-46.3) H 06/04/23 18:45 RDW Coeff of Ge 16.2 % (11.5-14.5) H 06/04/23 18:45 Plt Count 299 K/uL (130-400) 06/04/23 18:45 MPV 12.3 fL (9.4-12.4) 06/04/23 18:45 Immature Gran % (Auto) 0.3 % 06/04/23 18:45 Neut % (Auto) 73.1 % 06/04/23 18:45 Lymph % (Auto) 10.9 % 06/04/23 18:45 Candler % (Auto) 11.9 % 06/04/23 18:45 Eos % (Auto) 3.1 % 06/04/23 18:45 Baso % (Auto) 0.7 % 06/04/23 18:45 Neut # (Auto) 5.02 K/uL (1.40-6.50) 06/04/23 18:45 Lymph # (Auto) 0.75 K/uL (1.2-3.4) L 06/04/23 18:45 Candler # (Auto) 0.82 K/uL (0.11-0.59) H 06/04/23 18:45 Eos # (Auto) 0.21 K/uL (0-0.50) 06/04/23 18:45 Baso # (Auto) 0.05 K/uL (0-0.2) 06/04/23 18:45 Immature Gran # (Auto) 0.02 K/uL (0.01-0.20) 06/04/23 18:45 PT 20.5 Seconds (9.0-12.0) H 06/04/23 19:48 INR 2.0 (0.9-1.1) H 06/04/23 19:48 APTT 33.8 Seconds (21.0-31.0) H 06/04/23 19:48 PTT Ratio 1.2 06/04/23 19:48 Sodium 141 mmol/L (136-145) 06/04/23 19:48 Potassium 3.9 mmol/L (3.5-5.1) 06/04/23 19:48 Chloride 100 mmol/L (98-107) 06/04/23 19:48 Carbon Dioxide 34 mmol/L (21-32) H 06/04/23 19:48 Anion Gap 7 (3-11) 06/04/23 19:48 BUN 39 mg/dl (6-23) H 06/04/23 19:48 Creatinine 1.94 mg/dl (0.6-1.2) H 06/04/23 19:48 Est Cr Clr Drug Dosing 18.6 ml/min 06/04/23 19:48 Est GFR ( Amer) 26.3 ml/min 06/04/23 19:48 Est GFR (Non-Af Amer) 22.7 ml/min 06/04/23 19:48 BUN/Creatinine Ratio 20.1 (10-20) H 06/04/23 19:48 Glucose 106 mg/dl (70-99(Fasting)) H 06/04/23 19:48 Calcium 10.0 mg/dl (8.6-10.3) 06/04/23 19:48 Magnesium 1.7 mg/dl (1.7-2.4) 06/04/23 19:48 Total Bilirubin 0.9 mg/dl (0.2-1.0) 06/04/23 19:48 AST 26 U/L (13-39) 06/04/23 19:48 ALT 13 U/L (7-52) 06/04/23 19:48 Alkaline Phosphatase 72 U/L (34-104) 06/04/23 19:48 Troponin I High Sens 33.1 pg/ml (0-14) H 06/04/23 23:13 Total Protein 7.6 gm/dl (6.0-8.3) 06/04/23 19:48 Albumin 4.1 gm/dl (3.4-5.0) 06/04/23 19:48 Globulin 3.5 gm/dl (2.5-4.0) 06/04/23 19:48 Albumin/Globulin Ratio 1.2 (0.9-2) 06/04/23 19:48 Lipase 63 U/L (11-82) 06/04/23 19:48 Impressions Chest X-Ray 06/04/23 18:24 XR chest 1V portable CLINICAL HISTORY: Chest pain, nonspecific TECHNIQUE: Single frontal radiograph of the chest was obtained. Comparison: Comparison is made to chest radiograph 05/18/2023 FINDINGS: Median sternotomy wires are unchanged. Dual-lead pacemaker is seen. Cardiomegaly is noted. The lungs are clear. There is elevation of the right hemidiaphragm. No evidence of pleural effusion or pneumothorax. IMPRESSION: No acute chest disease. ACT 112: Negative or not required by law. Electronically signed by: Pablo Garza M.D. 06/04/2023 7:37 PM Diagnostic Findings EKG as per my interpretation :Rate 85, A-fib, LAD, LAFB, RBBB, LVH, T wave inversion lateral leads Code Status & VTE Plan VTE Prophylaxis Plan VTE Prophylaxis will be ordered: Yes
[2023-06-05] MEDS ORDERED: AZELASTINE HCL 0.1% NASAL 200 SPRAYS/27,400 MCG BTL NAE PRN (02:50)
[2023-06-05] MEDS ORDERED: FEXOFENADINE HCL 180 MG TAB PO PRN (02:50)
[2023-06-05] MEDS ORDERED: IPRATROPIUM BROMIDE NASAL SPRAY 0.06% 15ML NAE PRN (03:01)
[2023-06-05] MEDS: MAGNESIUM SULFATE / D5W 1 GM/100 ML BAG IV SCH ×2 (03:08→04:42)
[2023-06-05] MEDS: ROSUVASTATIN CALCIUM 20 MG TAB PO SCH ×2 (04:05→22:34)
[2023-06-05 04:21] LABS: Appearance Urine Turbid (Clear); Bacteria Urine Automated 2+ (Negative); Bilirubin Urine Negative (Negative); Blood Urine 2+ (Negative); Color Urine Yellow; Glucose Urine UA Negative (Negative); Ketones Urine Negative (Negative); Leukocyte Esterase Urine 3+ (Negative); Nitrite Urine Negative (Negative); Protein Urine 1+ (Negative); Specific Gravity Urine 1.009 (1.000-1.030); Urobilinogen Urine Negative (Negative); WBC Urine Automated >30 /hpf (0-5)
[2023-06-05] MEDS ORDERED: DEXTROSE 50% 50 ML SYRINGE IV PRN (05:35)
[2023-06-05] MEDS ORDERED: CARBOHYDRATES FOR HYPOGLYCEMIA PO PRN (05:35)
[2023-06-05] MEDS ORDERED: GLUCOSE 10 TAB/TUBE PO PRN (05:35)
[2023-06-05] MEDS ORDERED: GLUCOSE 40% GEL 15 GM TUBE PO PRN (05:35)
[2023-06-05] MEDS ORDERED: GLUCAGON FOR INJ 1 MG VIAL SQ PRN (05:35)
[2023-06-05] MEDS: ERTAPENEM SODIUM 500 MG in SYRINGE 0 ML IV SCH (05:37)
[2023-06-05 06:05] LABS: Basophils # (auto) 0.06 K/uL (0-0.2); Basophils % (auto) 0.8 %; Eosinophils # (auto) 0.23 K/uL (0-0.50); Eosinophils % (auto) 2.9 %; Hematocrit (blood only) 35.2 % (37.0-47.0); Hemoglobin 11.2 g/dl (12.0-16.0); Immature Granulocytes # (auto) 0.02 K/uL (0.01-0.20); Immature Granulocytes % (auto) 0.3 %; Lymphocytes # (auto) 0.53 K/uL (1.2-3.4); Lymphocytes % (auto) 6.8 %; Mean Corpuscular Hemoglobin 34.1 pg (25.0-34.0); Mean Corpuscular Hgb Conc 31.8 g/dL (32.0-36.0); Mean Corpuscular Volume 107.3 fL (80.0-100.0); Mean Platelet Volume 11.5 fL (9.4-12.4); Monocytes # (auto) 0.74 K/uL (0.11-0.59); Monocytes % (auto) 9.4 %; Neutrophils # (auto) 6.27 K/uL (1.40-6.50); Neutrophils % (auto) 79.8 %; Platelet Count 267 K/uL (130-400); RDW Coefficient of Variation 14.9 % (11.5-14.5); Red Blood Count 3.28 M/uL (4.20-5.40); White Blood Count 7.85 K/ul (4.8-10.8)
[2023-06-05 06:13] LABS: BUN Creatinine Ratio 21.4 (10-20); Calcium 9.8 mg/dl (8.6-10.3); Creatinine Clr Calc Pharmacy 20.2 ml/min; Est GFR (African American) 30.2 ml/min; Est GFR (Non-African American) 26.1 ml/min; Potassium 3.3 mmol/L (3.5-5.1)
[2023-06-05 06:19] LABS: Troponin I High Sensitivity 31.7 pg/ml (0-14)
[2023-06-05 06:26] LABS: INR 1.9 (0.9-1.1)
[2023-06-05] MEDS: INSULIN ASPART PER UNIT CHARGE SC SCH ×2 (06:55→11:52)
[2023-06-05] MEDS ORDERED: Heparin IV Adult Wt-Based Standard *NO* Bolus Protocol IV SCH (07:02)
[2023-06-05] MEDS ORDERED: POTASSIUM CHLORIDE CRTAB 20 MEQ TABCR PO STA (07:03)
--- NOTE | 2023-06-05 07:37 | Cardiology Consultation ---
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 Concur with observations and plans 88 yo woman presenting with chest tightness Relieved with 2 SL NTG Chest pain free Troponin - mildly elevated Mild CHF (diruetics recently decreased) + RADHA noted EK06/04/2023 RBBB +LAFB No Active Ischemic changes ECHOcardiogram 04/2023 LVEF 40-45% Recent presentation with chest pain (04/2023) Large NSTEMI Plans at the time for conservative management Noted to have a new right lacunar infarction/CVA Started on Plavix ASA Stopped Coumadin continued Hx: * Bioprosthetic AVR * CAD * S/P CABG 2005 * Ischemic Cardiomyopathy * LVEF 40-45% * CKD Stage 3 * Hypertension * Hyperlipidemia * Permanent Afib * Pacer - for sinus node dysfunction Exam: * Wearing O2 * Overnweight * JVP 18 cmH20 * S1S2 Soft 2/6 systolic murmur * CTA B - mild crackles at bases * + BS * No c/c/ - trace edema Plans: * Pt presenting with recurring angina * Angina noted to be at rest * Pt had previously elected for conservative/medical management - reluctant to have invasive procedures * SBP 130 mmHg, HR 80 BPM * + RADHA - Creat 1.7 - baseline 1.1 * Pt with JVP to 18 cm H20 * Lasix 100 mg IV x 1 * k+ goal 4.5-5 * Kdur 40 meq po BID on 06/05/2023 * Recheck BMP in PM * Continue Aldactone 25 mg po per day (creat <2) * Continue Toprol XL 100 mg po BID; higher doses led to fatigue in the past * Losartan - on hold * Start Imdur 30 mg po per day * INR - 1.9; coumadin held - heparin started * Continue Plavix 75 mg po per day Pradeep Macedo History of Present Illness Reason for Consultation: Chest pain Requesting Physician: Dr. Richey Attending Physician: Josue Avalos MD History of Present Illness Patient is an 88 year old female [facility] and most recently evaluated by Dr. Doyle. History includes: 1. Persistent atrial fibrillation with a controlled ventricular response 2. Chronic Coumadin 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 3. Prior transient bright red blood per rectum requiring ER evaluation in December 2021, suggestive of hemorrhoidal bleeding, declining further evaluation (colonoscopy). 4. Sinus node dysfunction status post April 08, 2014 dual chamber pacemaker implantation, with dwindling generator longevity noted as above. 5. Status post AVR and CABG in April 2006 receiving a #19 Mary-Good bioprosthesis in the aortic valve position, VARGHESE graft to the LAD, SVG with sequential grafting from LAD diagonal to the circumflex obtuse marginal, and a SVG to the RCA. 6. Recurrent angina with resultant coronary intervention of the right coronary artery, PCI and stenting in December of 2006 with documented saphenous vein graft occlusion to the right coronary artery at that time. 7. NSTEMI in April 2023 with elevated troponin, medical management. 7. Hypertension. 8. Hyperlipidemia. Lipids well controlled. LDL 48 mg/dL on 11/04/2022 9. Bilateral internal carotid artery disease. Last duplex transpired in February 2023 and revealed stable mild bilateral internal carotid artery disease with results unchanged for a number of years. 10. Mild sleep apnea. Intolerant to CPAP therapy Patient recently admitted in April 2023 for chest pain/arm pain, NSTEMI. Evaluated by Dr. Raphael. Echo with inferoposterior and septal myocardial infarction. LV systolic dysfunction mild impaired, EF 40-45% with severe TR, moderate to severe MR. Medical management recommended, losartan initiated. Torsemide/spironolactone reduced to 3 days per week due to renal insufficiency. . Unfortunately patient also had two subcentimeter acute lacunar infarcts within the right frontal lobe during admission. Started on Plavix in addition to Warfarin. ASA discontinued. LVEF 40-45%. patient was seen in outpatient clinic last week and doing well with prior medication changes. Unfortunately yesterday patient was sitting and talking on the phone and noted chest tightness across her chest with shortness of breath. She took 1 SL nitro with mild improvement. About 5 minutes later she took a 2nd SL nitro and her symptoms resolved. Chest tightness lasted 15 minutes. Due to recent history with NSTEMI, patient came to ER for evaluation. EKG on arrival demonstrated Afib with controlled rates, no acute ST/T wave changes. Chest xray was without acute process. Mild hypoxia noted and supplemental O2 started. Patient admits to worsening SOB over the last few weeks. She self adjusted diuretics from // and now takes every other day, as she reported significant dyspnea after 2 days without diuretics. She notes worsening LE edema and mild weight gain of approx 6 lbs at home. Troponin on admission minimally elevated peaking at 30. She has been chest pain free since admission. Notes mild breathlessness on conversation and ambulation in the room. She was started on IV heparin on admission due to concerns for NSTEMI, and sub therapeutic INR at 1.9. At time of evaluation/consult, patient resting in bed. Fearful of going to [facility] for cath. Wishes for ongoing conservative med management. She denies chest pain currently. BP was uncontrolled on admission, but trending down. She is also being treated for UTI with dysuria noted. Mild renal insufficiency noted on arrival. Losartan on hold. Potassium supplemented. Allergies Allergy/AdvReac Type Severity Reaction Status Date / Time iodine Allergy Intermediate itching Verified 06/04/23 20:11 amiodarone Allergy Mild UNSURE Verified 06/04/23 20:11 etodolac Allergy Mild Unknown Verified 06/04/23 20:11 Sulfa (Sulfonamide Allergy Mild Unknown Verified 06/04/23 20:11 Antibiotics) lisinopril AdvReac Intermediate Swelling Verified 06/04/23 20:11 of Lip/Tongue/Throat gabapentin AdvReac Mild sedation Verified 06/04/23 20:11 Penicillins AdvReac Mild YEAST INF Verified 06/04/23 20:11 simvastatin AdvReac Unknown CAN'T Verified 06/04/23 20:11 REMEMBER Home Medications Medication Instructions Recorded Confirmed Type calcium carbonate 600 mg-vitamin 1 tab PO DAILY 01/29/23 06/04/23 History D3 20 mcg (800 unit) tablet (Caltrate with Vitamin D3) clindamycin HCl 300 mg capsule 600 mg PO DIRECTED 01/29/23 06/04/23 History diphenhydramine HCl 25 mg tablet 25 mg PO Q4 PRN allergies 01/29/23 06/04/23 History (Benadryl Allergy) fexofenadine 180 mg tablet 180 mg PO DAILY PRN allergies 01/29/23 06/04/23 History (Lizzette Allergy) hydroxyurea 500 mg capsule 500 mg PO UD 01/29/23 06/04/23 History ipratropium bromide 21 mcg (0.03 2 spray intranasal BID PRN 01/29/23 06/04/23 History %) nasal spray .rhinitis magnesium oxide 400 mg PO DAILY 01/29/23 06/04/23 History mometasone 50 mcg/actuation nasal 2 spray intranasal QAM 01/29/23 06/04/23 History spray nitroglycerin 0.4 mg sublingual 0.4 mg sublingual DIRECTED PRN 01/29/23 06/04/23 History tablet (Nitrostat) Chest Pain pantoprazole 40 mg tablet,delayed 40 mg PO QAM 01/29/23 06/04/23 History release warfarin 2.5 mg tablet 1.25 mg PO .6DAYWEEK 01/29/23 06/04/23 History clopidogrel 75 mg tablet 75 mg PO QAM #30 tabs 05/09/23 06/04/23 Rx losartan 25 mg tablet 12.5 mg PO QAM #30 tabs 05/09/23 06/04/23 Rx metoprolol succinate 100 mg 100 mg PO AMHS #60 tabs 05/09/23 06/04/23 Rx tablet,extended release 24 hr rosuvastatin 10 mg tablet 20 mg PO QPM #60 tabs 05/09/23 06/04/23 Rx spironolactone 25 mg tablet 12.5 mg PO UD #30 tabs 05/09/23 06/04/23 Rx torsemide 20 mg tablet 20 mg PO UD #30 tabs 05/09/23 06/04/23 Rx Bifidobacterium infantis 4 mg 8 mg PO DAILY 05/18/23 06/04/23 History capsule (Align) azelastine 137 mcg (0.1 %) nasal 1 spray intranasal BID PRN 05/18/23 06/04/23 History spray aerosol allergies buspirone 5 mg tablet 5 mg PO BID PRN Anxiety 05/18/23 06/04/23 History Patient History Medical History Anemia ASCVD (arteriosclerotic cardiovascular disease) 2005 - CABG x 3, bioproesthetic aortic valve replacement 2007 - PCI and stenting to SVG to RCA occlusion Atrial fibrillation, persistent Cardiac pacemaker in situ Carotid artery occlusion (Unknown) Chronic diastolic CHF (congestive heart failure) CKD (chronic kidney disease) stage 2, GFR 60-89 ml/min CKD (chronic kidney disease), stage III 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 Dermatitis Essential thrombocythemia Generalized weakness HLD (hyperlipidemia) HTN (hypertension) Replacement of aortic valve (Unknown) "[facility] 2005 Mary-Good " Sensorineural hearing loss of both ears Sinus node dysfunction 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 UTI due to extended-spectrum beta lactamase (ESBL) producing Escherichia coli Surgical History Coronary artery bypass grafting (Unknown) "[facility] April 2006 VARGHESE to LAD SVG's to diagonal, obtuse marginal, RCA " History of colonoscopy with polypectomy History of cystoscopy History of tubal ligation Implantation of aortic valve prosthesis or synthetic device (Unknown) Placement of stent in coronary artery (Unknown) "[facility] December 2006 " Status post transcatheter aortic valve replacement (TAVR) using bioprosthesis Stented coronary artery (Unknown) Total abdominal hysterectomy with bilateral salpingo-oophorectomy (Unknown) Family History Father Prostate cancer Mother Diabetes Sister Coronary heart disease Social History Smoking Status: Never smoker Second Hand Exposure: No; Do You Dip or Chew Tobacco: No; Hx Alcohol Use: No Hx Substance Use: No Preferred Language: Armenian Communication Ability: Effective Visual Impairment: No Limitations Hearing Ability: Normal Salon Leader Required: No Beliefs That Will Affect Care: None marital status: / Current Living Situation: Alone Other Information That Helps Us Care for You: No Feels Safe at Home: Yes Safety Concerns: Feels Safe At This Time Assistive Devices: Hearing Aid - Bilateral and Walker Review of Systems Review of Systems: All systems reviewed & are unremarkable except as noted in HPI & below Physical Exam Constitutional: WD/WN, vitals as above well developed and average body h abitus; no acute distress Respiratory: + not able to speak in complete sentence (Mild conversational dyspnea) Auscultation: + rales (bibasilar) Cardiovascular: Rate/Rhythm: + irregularly irregular Heart Sounds: + murmur (II/ systolic murmur LSB) Vessels: + JVD Extremities: + edema (1+ b/l edema) Gastrointestinal (Abdomen): normal bowel sounds, soft, nontender, no hepatosplenomegaly Skin: no rashes, warm and dry Psychiatric: A+Ox3, euthymic affect Results & Data Vital Signs (Past 12 Hours) Vital Signs Temp Pulse Pulse Resp BP BP BP 06/05/23 05:56 161/95 H 158/89 H 06/05/23 02:45 06/05/23 02:45 36.4 C L 81 20 158/98 H 06/05/23 02:00 74 18 06/05/23 01:01 158/136 H 06/05/23 01:01 84 18 06/05/23 02:36 06/05/23 00:01 102/76 06/05/23 00:01 82 16 06/04/23 23:31 77 23 06/04/23 23:31 149/121 H 06/04/23 23:05 84 22 06/04/23 23:05 151/89 H 06/04/23 22:30 80 18 06/04/23 22:30 146/102 H 06/04/23 22:20 177/99 H 06/04/23 22:20 80 17 06/04/23 22:29 85 06/04/23 22:00 83 18 06/04/23 21:00 80 20 Pulse Ox O2 Del Method O2 Flow Rate 06/05/23 05:56 06/05/23 02:45 Nasal Cannula 2 06/05/23 02:45 100 Nasal Cannula 2 06/05/23 02:00 06/05/23 01:01 06/05/23 01:01 96 Nasal Cannula 2 06/05/23 02:36 Nasal Cannula 2 06/05/23 00:01 06/05/23 00:01 06/04/23 23:31 100 Nasal Cannula 2 06/04/23 23:31 06/04/23 23:05 99 Nasal Cannula 2 06/04/23 23:05 06/04/23 22:30 100 Nasal Cannula 2 06/04/23 22:30 06/04/23 22:20 06/04/23 22:20 99 Nasal Cannula 2 06/04/23 22:29 06/04/23 22:00 100 Nasal Cannula 2 06/04/23 21:00 100 Nasal Cannula 2 Laboratory Results Cardiac Enzymes 06/04/23 06/04/23 06/04/23 Range/Units 18:45 19:48 23:13 AST Cancelled 26 Troponin I High Sens Cancelled 32.7 H 33.1 H 06/05/23 Range/Units 05:42 AST Troponin I High Sens 31.7 H Coagulation 06/04/23 06/04/23 06/05/23 Range/Units 18:45 19:48 05:42 PT Cancelled 20.5 H 20.0 H APTT Cancelled 33.8 H CBC 06/04/23 06/05/23 Range/Units 18:45 05:42 WBC 6.87 7.85 (4.8-10.8) K/ul RBC 3.31 L 3.28 L (4.20-5.40) M/uL Hgb 11.4 L 11.2 L (12.0-16.0) g/dl Hct 35.7 L 35.2 L (37.0-47.0) % Plt Count 299 267 (130-400) K/uL Neut # (Auto) 5.02 6.27 (1.40-6.50) K/uL Lymph # (Auto) 0.75 L 0.53 L (1.2-3.4) K/uL Carter # (Auto) 0.82 H 0.74 H (0.11-0.59) K/uL Eos # (Auto) 0.21 0.23 (0-0.50) K/uL Baso # (Auto) 0.05 0.06 (0-0.2) K/uL Comprehensive Metabolic Panel 06/04/23 06/04/23 06/05/23 Range/Units 18:45 19:48 05:42 Sodium Cancelled 141 143 Potassium Cancelled 3.9 3.3 L Chloride Cancelled 100 100 Carbon Dioxide Cancelled 34 H 34 H BUN Cancelled 39 H 37 H Creatinine Cancelled 1.94 H 1.73 H Glucose Cancelled 106 H 136 H Calcium Cancelled 10.0 9.8 AST Cancelled 26 ALT Cancelled 13 Alkaline Phosphatase Cancelled 72 Total Protein Cancelled 7.6 Albumin Cancelled 4.1 Intake and Output 06/04/23 06/05/23 06/05/23 22:59 06:59 14:59 Intake Total 173.333 / 173.333 100 / 100 Output Total 300 / 300 Balance -126.667 / -126.667 100 / 100 Intake: IV 173.333 / 173.333 100 / 100 Albumin 25% 25 gm In 100 ml @ 95 / 95 50 mls/hr IV ONE ONE Rx#: [id number] Magnesium Sulfate / D5w 1 gm In 78.333 / 78.333 100 / 100 100 ml @ 50 mls/hr IV Q2H [facility] Rx#:[id number] Output: Urine 300 / 300 Other: Weight 82.6 kg 78.5 kg Weight Measurement Method Built in Bedscale Standing Scale Diagnostic Findings Telemetry reviewed: Atrial fibrillation, controlled rates, occ PVC. Several ventricular couplets EKG reviewed: Atrial fibrillation with controlled ventricular rates RBBB LAD No acute ST/T wave changes. Compared with EKG in April 2023 at time of NSTEMI, inferior and lateral T wave abnormality improved Device interrogation reviewed from 4 days ago - appropriate function and battery longevity of 3 months. persistent afib Monthly interrogation recommended Echo report reviewed dated April 2023: LVEF mildly reduced at 40-45% with apical, septal, anteroseptal, inferior, and posterior wall motion abnormality with hypokinesis to akinesis of the segments. Bioprosthetic aortic valve. Mild AI Moderate to severe MR Severe TR estimated pulm pressure is 41 mmHg Medications Administered Current Inpatient Medications Acetaminophen (Acetaminophen 325 Mg Tab) 650 mg PO Q4H PRN PRN Reason: Pain or Fever Stop: 07/05/23 02:49 Azelastine HCl (Azelastine Hcl 0.1% Nasal 200 Sprays/27,400 Mcg Btl) 1 sprays SAIRA BID PRN PRN Reason: allergies Stop: 07/05/23 02:49 Buspirone HCl (Buspirone 5 Mg Tab) 5 mg PO BID PRN PRN Reason: Anxiety Stop: 07/05/23 02:49 Clopidogrel Bisulfate (Clopidogrel Bisulfate 75 Mg Tab) 75 mg PO QAM [facility] Stop: 07/05/23 08:59 Dextrose (Dextrose 50% 50 Ml Syringe) 25 - 50 ml IV UD PRN; Protocol PRN Reason: Hypoglycemia Protocol Stop: 07/05/23 05:34 Fexofenadine HCl (Fexofenadine Hcl 180 Mg Tab) 180 mg PO DAILY PRN PRN Reason: allergies Stop: 07/05/23 02:49 Fluticasone Propionate (Fluticasone Propionate Na Spr 16 Gm Btl) 2 sprays NA QAM [facility] Stop: 07/05/23 08:59 Glucagon (Glucagon For Inj 1 Mg Vial) 1 mg SQ UD PRN; Protocol PRN Reason: Hypoglycemia Protocol Stop: 07/05/23 05:34 Glucose (Glucose 10 Tab/Tube) 4 - 8 tab PO UD PRN; Protocol PRN Reason: Hypoglycemia Treatment Stop: 07/05/23 05:34 Glucose (Glucose 40% Gel 15 Gm Tube) 15 - 30 gm PO UD PRN; Protocol PRN Reason: Hypoglycemia Protocol Stop: 07/05/23 05:34 Heparin Sodium/Dextrose (Heparin Iv Adult Wt-Based Standard *No* Bolus Protocol) 1 each IV Q15M [facility]; Protocol Stop: 06/05/23 08:48 Hydromorphone HCl (Hydromorphone Inj 0.5 Mg/0.5 Ml Syr) 0.5 mg IV Q3H PRN PRN Reason: Pain Stop: 06/19/23 00:32 Hydroxyurea (Hydroxyurea 500 Mg Cap) 500 mg PO [id number]@0900 [facility] Stop: 07/05/23 08:59 Promethazine HCl 12.5 mg/ (Sodium Chloride) 50.5 mls @ 202 mls/hr IV Q6H PRN PRN Reason: Nausea And Vomiting Stop: 07/05/23 00:32 Ertapenem 500 mg/ Syringe 5 mls @ 2 mls/min IV Q24H [facility] Stop: 06/15/23 04:44 Last Admin: 06/05/23 05:37 Dose: 2 mls/min Albumin Human (Albumin 25%) 25 gm in 100 mls @ 50 mls/hr IV Q8H [facility] Stop: 06/08/23 05:44 Heparin Sodium/Dextrose (Heparin Sodium/Dextrose) 25,000 units in 500 mls @ 0.02 mls/hr IV .Q24H [facility]; Protocol Stop: 07/05/23 07:29 Insulin Aspart (Insulin Aspart Per Unit Charge) 0 units SC ACHS [facility] Stop: 07/05/23 05:34 Last Admin: 06/05/23 06:55 Dose: Not Given Ipratropium [place] (Ipratropium [place] Nasal [place] 0.06% 15ml) 2 sprays SAIRA BID PRN PRN Reason: .rhinitis Stop: 07/05/23 03:00 Metoprolol Succinate (Metoprolol Succ 50mg Ext Rel Tab) 100 mg PO [facility]HS DYLAN Stop: 07/05/23 05:34 Miscellaneous (Carbohydrates For Hypoglycemia ) 15 - 30 gm PO UD PRN PRN Reason: Hypoglycemia Protocol Stop: 07/05/23 05:34 Nitroglycerin (Nitroglycerin Sl 0.4 Mg/Tab Tab) 0.4 mg SL Q5M PRN PRN Reason: Chest Pain Stop: 07/05/23 00:32 Pantoprazole Sodium (Pantoprazole 40 Mg Tab) 40 mg PO QAM DYLAN Stop: 07/05/23 08:59 Rosuvastatin Calcium (Rosuvastatin Calcium 20 Mg Tab) 20 mg PO QPM [facility]YLAN Stop: 07/05/23 02:49 Last Admin: 06/05/23 04:05 Dose: 20 mg Tramadol HCl (Tramadol Hcl 50 Mg Tablet) 25 - 50 mg PO Q4H PRN PRN Reason: Pain Stop: 07/05/23 00:32
[2023-06-05 07:40] LABS: Partial Thromboplastin Ratio 1.2; Partial Thromboplastin Time 33.9 Seconds (21.0-31.0)
[2023-06-05] MEDS: ALBUMIN 25% 25 GM/100 ML VIAL IV SCH ×3 (07:47→22:31)
[2023-06-05] MEDS: PANTOprazole 40 MG TAB PO SCH (08:08)
[2023-06-05] MEDS: HYDROXYUREA 500 MG CAP PO SCH (08:08)
[2023-06-05] MEDS: CLOPIDOGREL BISULFATE 75 MG TAB PO SCH (08:08)
[2023-06-05] MEDS: FLUTICASONE PROPIONATE NA SPR 16 GM BTL SCH (08:08)
[2023-06-05] MEDS: METOPROLOL SUCC 50MG EXT REL TAB PO SCH ×2 (08:08→20:00)
[2023-06-05] MEDS: HEPARIN SODIUM/DEXTROSE 25,000 UNITS/500 ML BAG IV SCH (08:12)
[2023-06-05] MEDS ORDERED: POTASSIUM CHLORIDE CRTAB 20 MEQ TABCR PO ONE (08:26)
[2023-06-05] MEDS ORDERED: METOPROLOL SUCC 50MG EXT REL TAB PO SCH (09:00)
[2023-06-05] MEDS ORDERED: NON-FORMULARY MEDICATION (Bifidobacterium Infantis [Align] 4 mg Capsule) PO SCH (09:00)
[2023-06-05] MEDS: ISOSORBIDE MONO EXTENDED REL 30 MG TABCR PO SCH (11:10)
[2023-06-05] MEDS: FUROSEMIDE 10 MG/ML 10 ML VIAL IV SCH (11:10)
--- NOTE | 2023-06-05 14:07 | Electrocardiogram Report ---
Test Reason : Blood Pressure : / mmHG Vent. Rate : 085 BPM Atrial Rate : 000 BPM P-R Int : 000 ms QRS Dur : 122 ms QT Int : 402 ms P-R-T Axes : 000 -57 103 degrees QTc Int : 478 ms Atrial fibrillation with occasional ventricular-paced complexes Left axis deviation Right bundle branch block Left ventricular hypertrophy with repolarization abnormality ( R in aVL ) Abnormal ECG When compared with ECG of 18-MAY-2023 22:14, Electronic ventricular pacemaker has replaced Atrial fibrillation Confirmed by Ishmael Hooks ([id number]) on 06/05/2023 2:07:17 PM Referred By: REFERRED SELF Confirmed By:Ishmael Hooks
--- NOTE | 2023-06-05 14:16 | Electrocardiogram Report ---
Test Reason : Blood Pressure : / mmHG Vent. Rate : 084 BPM Atrial Rate : 059 BPM P-R Int : 000 ms QRS Dur : 130 ms QT Int : 424 ms P-R-T Axes : 000 -30 149 degrees QTc Int : 501 ms Atrial fibrillation with premature ventricular or aberrantly conducted complexes Left axis deviation Right bundle branch block Left ventricular hypertrophy with repolarization abnormality Abnormal ECG When compared with ECG of 04-JUN-2023 18:26, (unconfirmed) Atrial fibrillation has replaced Electronic ventricular pacemaker Confirmed by Ishmael Hooks ([id number]) on 06/05/2023 2:16:32 PM Referred By: REFERRED SELF Confirmed By:Ishmael Hooks
[2023-06-05 14:31] LABS: Calcium 10.2 mg/dl (8.6-10.3); Potassium 3.8 mmol/L (3.5-5.1)
[2023-06-05 14:36] LABS: BUN Creatinine Ratio 20.3 (10-20); Creatinine Clr Calc Pharmacy 19.2 ml/min; Est GFR (African American) 28.4 ml/min; Est GFR (Non-African American) 24.5 ml/min
[2023-06-05 15:20] LABS: Partial Thromboplastin Ratio 2.6
[2023-06-05 15:35] LABS: Partial Thromboplastin Time 73.9 Seconds (21.0-31.0)
--- NOTE | 2023-06-05 15:51 | Hospitalist Progress Note ---
Date of Service June 05, 2023 Assessment & Plan (1) NSTEMI (non-ST elevated myocardial infarction): Plan: Recurrent angina Coronary artery disease S/P CABG, Stents Recent NSTEMI in April 2023treated conservatively, reluctant to have invasive procedures as per records Chronic troponin elevation --CXR:No acute chest disease. Continue metoprolol, Plavix, Crestor Started on Imdur Continue IV heparin for now Repeat cardiology input Acute on chronic systolic and diastolic heart failure Ischemic cardiomyopathy S/P AVR Valvular heart disease H/O pulmonary hypertension Continue IV diuretics as per cardiology Monitor volume status Hypokalemia Replete electrolytes as needed Monitor Complicated UTI H/O ESBL E. coli UTI on outpatient urine CS H/O recurrent UTIs, urge incontinence Urine culture pending Continue IV ertapenem Consider ID eval if needed RADHA on CKD III Cr 1.82 today Monitor renal function Avoid nephrotoxic agents as able Bladder scan as needed to monitor for any retention Check renal ultrasound to rule out obstruction if no improvement in renal function H/O GAVIN Intolerance to CPAP Chronic oxygen dependency Continue supplemental oxygen SSS S/P PPM H/O paroxysmal atrial fibrillation Continue metoprolol Continue IV heparin Resume Coumadin as able H/O PVD H/O CVA H/O HLP Continue Plavix, statin next DM II Diet controlled Update HbA1c Chronic anemia Essential thrombocythemia Continue Hydrea Hb at baseline Monitor CBC DVT Px: Held Coumadin IV Heparin Code Status Full code Admission and Anticipated Discharge Date Admission Date: June 05, 2023 Subjective Patient is seen and examined at bedside Chest pain resolved Reports dyspnea on exertion Also admits to have dysuria No other complaints Review of Systems Review of Systems: All systems reviewed & are unremarkable except as noted in Subjective Physical Exam Physical Exam: Physical Exam: Vitals signs as noted above General Appearance:Moderately built and nourished, no apparent distress Head: normocephalic, Atraumatic Eyes: normal inspection, EOMI Neck: supple, Trachea midline Respiratory/Chest: Normal breath sounds, Minimal basal crackles, No accessory muscle use Cardiovascular: Irregularly irregular, + murmur Abdomen/GI:Soft, Non tender, Bowel sounds present Extremities/Musculoskeletal:normal inspection, 1-2+B/L LE edema Neurologic/Psych:AAOX3, grossly no focal neurological deficits Skin: normal color, warm Results & Data Results & Data Vital Signs (Past 12 Hours) Vital Signs Temp Pulse Pulse Resp BP BP Pulse Ox 06/05/23 15:30 79 06/05/23 12:36 37.0 C 78 19 126/90 97 06/05/23 10:24 06/05/23 08:47 36.8 C 83 20 129/84 91 06/05/23 08:33 93 H 06/05/23 05:56 161/95 H 158/89 H O2 Del Method O2 Flow Rate 06/05/23 15:30 06/05/23 12:36 Nasal Cannula 2.0 06/05/23 10:24 Room Air 06/05/23 08:47 Nasal Cannula 1.0 06/05/23 08:33 06/05/23 05:56 Laboratory Results Short CBC 06/04/23 06/05/23 Range/Units 18:45 05:42 WBC 6.87 7.85 (4.8-10.8) K/ul Hgb 11.4 L 11.2 L (12.0-16.0) g/dl Hct 35.7 L 35.2 L (37.0-47.0) % Plt Count 299 267 (130-400) K/uL BMP 06/04/23 06/04/23 06/05/23 18:45 19:48 05:42 Sodium Cancelled 141 143 Potassium Cancelled 3.9 3.3 L Chloride Cancelled 100 100 Carbon Dioxide Cancelled 34 H 34 H BUN Cancelled 39 H 37 H Creatinine Cancelled 1.94 H 1.73 H Glucose Cancelled 106 H 136 H Calcium Cancelled 10.0 9.8 06/05/23 13:55 Sodium 142 Potassium 3.8 Chloride 100 Carbon Dioxide 31 BUN 37 H Creatinine 1.82 H Glucose 160 H Calcium 10.2 Liver Function 06/04/23 06/04/23 Range/Units 18:45 19:48 Total Bilirubin Cancelled 0.9 AST Cancelled 26 ALT Cancelled 13 Alkaline Phosphatase Cancelled 72 Albumin Cancelled 4.1 Urine 06/05/23 Range/Units 04:08 Urine Color Yellow Urine Appearance Turbid A (Clear) Urine pH 6.0 (4.5-7.5) Ur Specific [place] 1.009 (1.000-1.030) Urine Protein 1+ H (Negative) Urine Glucose (UA) Negative (Negative)
[2023-06-05] MEDS ORDERED: COUGH DROP (SUGAR FREE) LOZ 24 LOZ/1 BOX BUCCAL ONE (19:58)
[2023-06-05] MEDS: POTASSIUM CHLORIDE CRTAB 20 MEQ TABCR PO SCH (19:59)
[2023-06-05 21:35] LABS: Partial Thromboplastin Ratio 2.8
[2023-06-06] MEDS ORDERED: SODIUM CHLORIDE 0.65% NA SOLN 45 ML (OCEAN) ONE (01:59)
[2023-06-06 04:35] LABS: Hematocrit (blood only) 30.1 % (37.0-47.0); Hemoglobin 9.5 g/dl (12.0-16.0); Mean Corpuscular Hemoglobin 34.3 pg (25.0-34.0); Mean Corpuscular Hgb Conc 31.6 g/dL (32.0-36.0); Mean Corpuscular Volume 108.7 fL (80.0-100.0); Mean Platelet Volume 11.6 fL (9.4-12.4); Platelet Count 231 K/uL (130-400); RDW Standard Deviation 59.2 fL (36.4-46.3); Red Blood Count 2.77 M/uL (4.20-5.40); White Blood Count 6.81 K/ul (4.8-10.8)
[2023-06-06 04:42] LABS: BUN Creatinine Ratio 23.8 (10-20); Calcium 9.7 mg/dl (8.6-10.3); Creatinine Clr Calc Pharmacy 20.8 ml/min; Est GFR (African American) 31.3 ml/min; Magnesium 1.9 mg/dl (1.7-2.4); Potassium 3.8 mmol/L (3.5-5.1)
[2023-06-06 05:16] LABS: INR 1.9 (0.9-1.1); Partial Thromboplastin Ratio 3.7; Prothrombin Time 20.3 Seconds (9.0-12.0)
[2023-06-06 05:33] LABS: Partial Thromboplastin Time 105.3 Seconds (21.0-31.0)
[2023-06-06] MEDS: ERTAPENEM SODIUM 500 MG in SYRINGE 0 ML IV SCH (05:42)
[2023-06-06] MEDS: ALBUMIN 25% 25 GM/100 ML VIAL IV SCH ×3 (06:38→22:05)
[2023-06-06 07:14] LABS: Estimated Average Glucose 131 mg/dl; Hemoglobin A1C 6.2 % (4.5-5.6)
[2023-06-06] MEDS: HEPARIN SODIUM/DEXTROSE 25,000 UNITS/500 ML BAG IV SCH (07:28)
--- NOTE | 2023-06-06 07:55 | Cardiology Progress Note ---
Date of Service June 06, 2023 Assessment & Plan Admission and Anticipated Discharge Date Admission Date: June 05, 2023 Supervising Physician Co-Signing Physician Notes Attending Staff: Pt seen and evaluated with [facility] staff. Concur with observations and plans 88 yo woman presenting with chest tightness Relieved with 2 SL NTG Chest pain free Troponin - mildly elevated Mild CHF (diruetics recently decreased) + RADHA noted EK06/04/2023 RBBB +LAFB No Active Ischemic changes ECHOcardiogram 04/2023 LVEF 40-45% Recent presentation with chest pain (04/2023) Large NSTEMI Plans at the time for conservative management Noted to have a new right lacunar infarction/CVA Started on Plavix ASA Stopped Coumadin continued Hx: * Bioprosthetic AVR * CAD * S/P CABG 2005 * Ischemic Cardiomyopathy * LVEF 40-45% * CKD Stage 3 * Hypertension * Hyperlipidemia * Permanent Afib * Pacer - for sinus node dysfunction Plans: * Pt presenting with recurring angina/ troponin elevation in the setting of acute on chronic combined CHF * Angina noted to be at rest * Pt had previously elected for conservative/medical management - reluctant to have invasive procedures * SBP 126 mmHg, HR 80 BPM * + RADHA - Creat 1.6 - baseline 1.1 * Creatinine trending down * Pt with JVP to just below jaw * Lasix 100 mg IV x 1 * Start Lasix drip @ 5 mg/hr * QAM Standing Weights * k+ goal 4.5-5 * Kdur 60 meq po BID * BID electrolytes * Continue Aldactone 25 mg po per day (creat <2) * Continue Toprol XL 100 mg po BID; higher doses led to fatigue in the past * Losartan - on hold * Plans to transition to Entresto as creatinine return to baseline * Continue Imdur 30 mg po per day - no angina reported * INR - 1.9; restart coumadin; stop Heparin * Continue Plavix 75 mg po per day * Mobilize Pradeep [place] Subjective Events Overnight: * + afib on telemetry * No alarams * Ventricular rate controlled Subjective: * No chest pain * Mild dyspnea Review of Systems Review of Systems: All systems reviewed & are unremarkable except as noted in HPI & below Physical Exam Physical Exam: Overweight JVP to Jaw - V waves noted S1S2 2/6 Systolic murmur at LLSB CTA B Trace edema Warm and perfusing Results & Data Vital Signs (Past 12 Hours) Vital Signs Temp Pulse Pulse Resp BP Pulse Ox O2 Del Method 06/06/23 00:00 78 06/06/23 03:09 36.8 C 84 20 123/84 99 Nasal Cannula 06/05/23 23:22 36.6 C 79 20 103/55 L 95 Nasal Cannula O2 Flow Rate 06/06/23 00:00 06/06/23 03:09 2 06/05/23 23:22 2 Laboratory Results Coagulation 06/05/23 06/05/23 06/06/23 Range/Units 13:55 20:34 04:03 PT 20.3 H (9.0-12.0) Seconds APTT 73.9 H* 80.0 H* 105.3 H* (21.0-31.0) Seconds CBC 06/06/23 Range/Units 04:03 WBC 6.81 (4.8-10.8) K/ul RBC 2.77 L (4.20-5.40) M/uL Hgb 9.5 L (12.0-16.0) g/dl Hct 30.1 L (37.0-47.0) % Plt Count 231 (130-400) K/uL Comprehensive Metabolic Panel 06/05/23 06/06/23 Range/Units 13:55 04:03 Sodium 142 142 (136-145) mmol/L Potassium 3.8 3.8 (3.5-5.1) mmol/L Chloride 100 100 (98-107) mmol/L Carbon Dioxide 31 34 H (21-32) mmol/L BUN 37 H 40 H (6-23) mg/dl Creatinine 1.82 H 1.68 H (0.6-1.2) mg/dl Glucose 160 H 135 H (70-99(Fasting)) mg/dl Calcium 10.2 9.7 (8.6-10.3) mg/dl Intake and Output 06/05/23 06/06/23 06/06/23 22:59 06:59 14:59 Intake Total 497.367 / 1577.150 399.783 / 1577.150 12.25 / 12.25 Output Total 500 / 1000 300 / 1000 Balance -2.633 / 577.150 99.783 / 577.150 12.25 / 12.25 Intake: IV 377.367 / 827.150 249.783 / 827.150 12.25 / 12.25 Albumin 25% 25 gm In 100 ml @ 100 / 300 100 / 300 50 mls/hr IV Q8H [facility] Rx#: [id number] Heparin Sodium/Dextrose 25,000 277.367 / 427.150 149.783 / 427.150 12.25 / 12.25 units In 500 ml @ 950 UNITS/HR 19 mls/hr IV .Q24H [facility] Rx#: [id number] Oral 120 / 750 150 / 750 Output: Urine Amount (Catheter) 500 / 1000 300 / 1000 External 500 / 1000 300 / 1000 Other: Weight 79.2 kg Weight Measurement Method Built in [facility] Medications Administered Current Inpatient Medications Acetaminophen (Acetaminophen 325 Mg Tab) 650 mg PO Q4H PRN PRN Reason: Pain or Fever Stop: 07/05/23 02:49 Azelastine HCl (Azelastine Hcl 0.1% Nasal 200 Sprays/27,400 Mcg Btl) 1 sprays SAIRA BID PRN PRN Reason: allergies Stop: 07/05/23 02:49 Buspirone HCl (Buspirone 5 Mg Tab) 5 mg PO BID PRN PRN Reason: Anxiety Stop: 07/05/23 02:49 Clopidogrel Bisulfate (Clopidogrel Bisulfate 75 Mg Tab) 75 mg PO QAM [facility] Stop: 07/05/23 08:59 Last Admin: 06/05/23 08:08 Dose: 75 mg Fexofenadine HCl (Fexofenadine Hcl 180 Mg Tab) 180 mg PO DAILY PRN PRN Reason: allergies Stop: 07/05/23 02:49 Fluticasone Propionate (Fluticasone Propionate Na Spr 16 Gm Btl) 2 sprays NA QAM [facility] Stop: 07/05/23 08:59 Last Admin: 06/05/23 08:08 Dose: 2 sprays Furosemide (Furosemide 10 Mg/Ml 10 Ml Vial) 100 mg IV DAILY [facility] Stop: 07/05/23 09:59 Last Admin: 06/05/23 11:10 Dose: 100 mg Hydromorphone HCl (Hydromorphone Inj 0.5 Mg/0.5 Ml Syr) 0.5 mg IV Q3H PRN PRN Reason: Pain Stop: 06/19/23 00:32 Hydroxyurea (Hydroxyurea 500 Mg Cap) 500 mg PO [id number]@0900 [facility] Stop: 07/05/23 08:59 Last Admin: 06/05/23 08:08 Dose: 500 mg Promethazine HCl 12.5 mg/ (Sodium Chloride) 50.5 mls @ 202 mls/hr IV Q6H PRN PRN Reason: Nausea And Vomiting Stop: 07/05/23 00:32 Ertapenem 500 mg/ Syringe 5 mls @ 2 mls/min IV Q24H [facility] Stop: 06/15/23 04:44 Last Admin: 06/06/23 05:42 Dose: 2 mls/min Albumin Human (Albumin 25%) 25 gm in 100 mls @ 50 mls/hr IV Q8H [facility] Stop: 06/07/23 05:59 Last Admin: 06/06/23 06:38 Dose: 50 mls/hr Heparin Sodium/Dextrose (Heparin Sodium/Dextrose) 25,000 units in 500 mls @ 15 mls/hr IV .Q24H [facility]; Protocol Stop: 07/05/23 07:29 Last Admin: 06/06/23 07:28 Dose: 750 units/hr, 15 mls/hr Ipratropium [place] (Ipratropium [place] Nasal [place] 0.06% 15ml) 2 sprays SAIRA BID PRN PRN Reason: .rhinitis Stop: 07/05/23 03:00 Isosorbide Mononitrate (Isosorbide [place] Extended Rel 30 Mg Tabcr) 30 mg PO QAM [facility] Stop: 07/05/23 09:59 Last Admin: 06/05/23 11:10 Dose: 30 mg Metoprolol Succinate (Metoprolol Succ 50mg Ext Rel Tab) 100 mg PO AMHS [facility] Stop: 07/05/23 05:34 Last Admin: 06/05/23 20:00 Dose: 100 mg Nitroglycerin (Nitroglycerin Sl 0.4 Mg/Tab Tab) 0.4 mg SL Q5M PRN PRN Reason: Chest Pain Stop: 07/05/23 00:32 Pantoprazole Sodium (Pantoprazole 40 Mg Tab) 40 mg PO QAM [facility] Stop: 07/05/23 08:59 Last Admin: 06/05/23 08:08 Dose: 40 mg Potassium Chloride (Potassium Chloride Crtab 20 Meq Tabcr) 40 meq PO BID [facility] Stop: 07/05/23 20:59 Last Admin: 06/05/23 19:59 Dose: 40 meq Rosuvastatin Calcium (Rosuvastatin Calcium 20 Mg Tab) 20 mg PO QPM [facility] Stop: 07/05/23 02:49 Last Admin: 06/05/23 22:34 Dose: 20 mg Tramadol HCl (Tramadol Hcl 50 Mg Tablet) 25 - 50 mg PO Q4H PRN PRN Reason: Pain Stop: 07/05/23 00:32
[2023-06-06] MEDS: POTASSIUM CHLORIDE CRTAB 20 MEQ TABCR PO SCH ×2 (09:05→20:23)
[2023-06-06] MEDS: METOPROLOL SUCC 50MG EXT REL TAB PO SCH ×2 (09:05→20:22)
[2023-06-06] MEDS: ISOSORBIDE MONO EXTENDED REL 30 MG TABCR PO SCH (09:06)
[2023-06-06] MEDS: CLOPIDOGREL BISULFATE 75 MG TAB PO SCH (09:06)
[2023-06-06] MEDS: FUROSEMIDE 10 MG/ML 10 ML VIAL IV SCH (09:06)
[2023-06-06] MEDS: PANTOprazole 40 MG TAB PO SCH (09:06)
[2023-06-06] MEDS: HYDROXYUREA 500 MG CAP PO SCH (09:06)
[2023-06-06] MEDS: FLUTICASONE PROPIONATE NA SPR 16 GM BTL SCH (09:07)
[2023-06-06] MEDS ORDERED: POTASSIUM CHLORIDE CRTAB 20 MEQ TABCR PO ONE (10:53)
[2023-06-06] MEDS: FUROSEMIDE 100 MG in DEXTROSE 5% 90 ML IV SCH (11:48)
[2023-06-06 13:24] LABS: Hematocrit (blood only) 32.2 % (37.0-47.0); Hemoglobin 10.2 g/dl (12.0-16.0)
[2023-06-06 14:01] LABS: Partial Thromboplastin Time 55.1 Seconds (21.0-31.0)
--- NOTE | 2023-06-06 15:13 | Hospitalist Progress Note ---
Date of Service June 06, 2023 Assessment & Plan (1) NSTEMI (non-ST elevated myocardial infarction): Plan: Recurrent angina Coronary artery disease S/P CABG, Stents Recent NSTEMI in April 2023treated conservatively, reluctant to have invasive procedures as per records Chronic troponin elevation --CXR:No acute chest disease. Continue metoprolol, Plavix, Crestor Started on Imdur Appreciate cardiology input IV heparin discontinued Restarted on Coumadin Acute on chronic systolic and diastolic heart failure Ischemic cardiomyopathy S/P AVR Valvular heart disease H/O pulmonary hypertension Continue IV diuretics as per cardiology Monitor volume status Started on IV Lasix drip Plan to transition to Entresto as able once renal function improves Also on Aldactone Hypokalemia Replete electrolytes as needed Monitor Complicated UTI H/O ESBL E. coli UTI on outpatient urine CS H/O recurrent UTIs, urge incontinence Urine culture growing gram-negative bacilli Continue IV ertapenem Consider ID eval if needed RADHA on CKD III Cr 1.6 today Monitor renal function Avoid nephrotoxic agents as able Bladder scan as needed to monitor for any retention Check renal ultrasound to rule out obstruction if no improvement in renal function H/O GAVIN Intolerance to CPAP Chronic oxygen dependency Continue supplemental oxygen SSS S/P PPM H/O paroxysmal atrial fibrillation Continue metoprolol IV heparin discontinued Resumed Coumadin Monitor INR 1.9 today H/O PVD H/O CVA H/O HLP Continue Plavix, statin next DM II Diet controlled HbA1c 6.2 Chronic anemia Essential thrombocythemia Continue Hydrea Monitor CBC Hb 10.2 today DVT Px: Coumadin Code Status Full code Admission and Anticipated Discharge Date Admission Date: June 05, 2023 Subjective Patient is seen and examined at bedside States having minimal headache this morning which she attributes to nitroglycerin given yesterday Also reports dyspnea on exertion Denies any chest pain, dizziness, nausea, vomiting, abdominal pain Dysuria resolved Review of Systems Review of Systems: All systems reviewed & are unremarkable except as noted in Subjective Physical Exam Physical Exam: Physical Exam: Vitals signs as noted above General Appearance:Moderately built and nourished, no apparent distress Head: normocephalic, Atraumatic Eyes: normal inspection, EOMI Neck: supple, Trachea midline Respiratory/Chest: Normal breath sounds, Minimal basal crackles, No accessory muscle use Cardiovascular: Irregularly irregular, + murmur Abdomen/GI:Soft, Non tender, Bowel sounds present Extremities/Musculoskeletal:normal inspection, 1-2+B/L LE edema Neurologic/Psych:AAOX3, grossly no focal neurological deficits Skin: normal color, warm Results & Data Results & Data Vital Signs (Past 12 Hours) Vital Signs Temp Pulse Pulse Resp BP Pulse Ox O2 Del Method 06/06/23 12:53 36.8 C 83 19 123/74 98 Nasal Cannula 06/06/23 10:32 Nasal Cannula 06/06/23 08:34 36.8 C 81 19 126/91 96 Nasal Cannula 06/06/23 08:13 80 O2 Flow Rate 06/06/23 12:53 2.0 06/06/23 10:32 2 06/06/23 08:34 2.0 06/06/23 08:13 Laboratory Results Short CBC 06/06/23 06/06/23 Range/Units 04:03 12:42 WBC 6.81 (4.8-10.8) K/ul Hgb 9.5 L 10.2 L (12.0-16.0) g/dl Hct 30.1 L 32.2 L (37.0-47.0) % Plt Count 231 (130-400) K/uL BMP 06/06/23 04:03 Sodium 142 Potassium 3.8 Chloride 100 Carbon Dioxide 34 H BUN 40 H Creatinine 1.68 H Glucose 135 H Calcium 9.7
[2023-06-06] MEDS ORDERED: HEPARIN--STOP ORDER ONE (16:00)
--- NOTE | 2023-06-06 16:04 | Electrocardiogram Report ---
Test Reason : Blood Pressure : / mmHG Vent. Rate : 083 BPM Atrial Rate : 087 BPM P-R Int : 000 ms QRS Dur : 130 ms QT Int : 412 ms P-R-T Axes : 000 034 -59 degrees QTc Int : 484 ms Atrial fibrillation Right bundle branch block T wave abnormality, consider inferolateral ischemia Abnormal ECG When compared with ECG of 05-JUN-2023 06:29, Minimal criteria for Septal infarct are no longer Present T wave inversion now evident in Inferior leads T wave inversion more evident in Anterior leads T wave inversion less evident in Lateral leads Confirmed by Ishmael Hooks ([id number]) on 06/06/2023 4:03:43 PM Referred By: REFERRED SELF Confirmed By:Ishmael Hooks
[2023-06-06 16:16] LABS: Calcium 10.2 mg/dl (8.6-10.3); Potassium 3.9 mmol/L (3.5-5.1)
[2023-06-06 16:21] LABS: Creatinine Clr Calc Pharmacy 19.9 ml/min; Est GFR (African American) 29.4 ml/min; Est GFR (Non-African American) 25.4 ml/min
[2023-06-06] MEDS: WARFARIN SOD 2.5 MG TAB PO SCH (16:28)
[2023-06-06] MEDS: ROSUVASTATIN CALCIUM 20 MG TAB PO SCH (20:23)
[2023-06-06] MEDS: busPIRone 5 MG TAB PO PRN (20:23)
[2023-06-07] MEDS: ACETAMINOPHEN 325 MG TAB PO PRN ×2 (01:21→20:11)
[2023-06-07] MEDS: FUROSEMIDE 100 MG in DEXTROSE 5% 90 ML IV SCH ×2 (06:02→20:06)
[2023-06-07] MEDS: ERTAPENEM SODIUM 500 MG in SYRINGE 0 ML IV SCH (06:04)
[2023-06-07 07:08] LABS: Hematocrit (blood only) 32.8 % (37.0-47.0); Hemoglobin 10.2 g/dl (12.0-16.0); Mean Corpuscular Hemoglobin 34.2 pg (25.0-34.0); Mean Corpuscular Hgb Conc 31.1 g/dL (32.0-36.0); Mean Corpuscular Volume 110.1 fL (80.0-100.0); Mean Platelet Volume 11.8 fL (9.4-12.4); Platelet Count 246 K/uL (130-400); RDW Coefficient of Variation 15.4 % (11.5-14.5); RDW Standard Deviation 60.9 fL (36.4-46.3); Red Blood Count 2.98 M/uL (4.20-5.40); White Blood Count 6.27 K/ul (4.8-10.8)
[2023-06-07 07:20] LABS: Calcium 10.2 mg/dl (8.6-10.3); Creatinine Clr Calc Pharmacy 19.5 ml/min; Est GFR (African American) 29.2 ml/min; Est GFR (Non-African American) 25.2 ml/min; Potassium 4.4 mmol/L (3.5-5.1)
[2023-06-07 07:40] LABS: Ferritin 54.6 ng/ml (8-388)
[2023-06-07 07:43] LABS: INR 1.8 (0.9-1.1); Partial Thromboplastin Ratio 1.2; Partial Thromboplastin Time 32.8 Seconds (21.0-31.0)
[2023-06-07 07:45] LABS: Folate (Folic Acid),Ser orPlas 19.85 ng/ml (>5.38)
--- NOTE | 2023-06-07 07:51 | Cardiology Progress Note ---
Date of Service June 07, 2023 Assessment & Plan (1) Acute on chronic heart failure with reduced ejection fraction and diastolic dysfunction: (2) Coronary artery disease with angina pectoris: (3) Chronic atrial fibrillation: (4) Ischemic cardiomyopathy: Plan See Attending automobile or truck rental dispatcher documentation for plan of care Admission and Anticipated Discharge Date Admission Date: June 05, 2023 Supervising Physician Co-Signing Physician Notes Attending Staff: Pt seen and evaluated with [facility] staff. Concur with observations and plans 88 yo woman presenting with chest tightness Relieved with 2 SL NTG Chest pain free Troponin - mildly elevated Mild CHF (diruetics recently decreased) + RADHA noted EK06/04/2023 RBBB +LAFB No Active Ischemic changes ECHOcardiogram 04/2023 LVEF 40-45% Recent presentation with chest pain (04/2023) Large NSTEMI Plans at the time for conservative management Noted to have a new right lacunar infarction/CVA Started on Plavix ASA Stopped Coumadin continued Hx: * Bioprosthetic AVR * CAD * S/P CABG 2005 * Ischemic Cardiomyopathy * LVEF 40-45% * CKD Stage 3 * Hypertension * Hyperlipidemia * Permanent Afib * Pacer - for sinus node dysfunction Plans: * Pt presenting with recurring angina/ troponin elevation in the setting of acute on chronic combined CHF * Angina noted to be at rest * Pt had previously elected for conservative/medical management - reluctant to have invasive procedures * SBP 117 mmHg, HR 88 BPM * + RADHA - Creat 1.6 - baseline 1.1 * Pt with JVP to just below jaw * Lasix 100 mg IV x 1 * Increase Lasix drip 10 mg/hr * QAM Standing Weights - weight decreased to 77 kg from 79 kg * k+ goal 4.5-5 * Kdur 60 meq po BID * BID electrolytes * Continue Aldactone 25 mg po per day (creat <2) * Continue Toprol XL 100 mg po BID; higher doses led to fatigue in the past * Losartan - on hold * Plans to transition to Entresto as creatinine return to baseline * Continue Imdur 30 mg po per day - no angina reported * INR - 1.8; restart coumadin; stop Heparin * Continue Plavix 75 mg po per day * Mobilize Pradeep [place] Subjective Events overnight: No telemtry events Subjective: No chest pain reported Review of Systems Review of Systems: All systems reviewed & are unremarkable except as noted in HPI & below Physical Exam Physical Exam: Overweight JVP 16 cm H20 S1S2 2/6 Systolic murmur at LLSB CTA B Trace edema Warm and perfusing Results & Data Vital Signs (Past 12 Hours) Vital Signs Temp Pulse Pulse Resp BP Pulse Ox O2 Del Method 06/07/23 07:49 83 06/07/23 00:05 82 06/07/23 02:55 36.6 C 83 20 141/96 H 97 Nasal Cannula 06/06/23 23:07 36.6 C 92 H 20 136/88 100 Nasal Cannula O2 Flow Rate 06/07/23 07:49 06/07/23 00:05 06/07/23 02:55 2 06/06/23 23:07 2 Laboratory Results Coagulation 06/06/23 06/07/23 Range/Units 12:42 06:33 PT 19.0 H (9.0-12.0) Seconds APTT 55.1 H* 32.8 H (21.0-31.0) Seconds CBC 06/06/23 06/07/23 Range/Units 12:42 06:33 WBC 6.27 (4.8-10.8) K/ul RBC 2.98 L (4.20-5.40) M/uL Hgb 10.2 L 10.2 L (12.0-16.0) g/dl Hct 32.2 L 32.8 L (37.0-47.0) % Plt Count 246 (130-400) K/uL Comprehensive Metabolic Panel 06/06/23 06/07/23 Range/Units 14:35 06:33 Sodium 143 144 (136-145) mmol/L Potassium 3.9 4.4 (3.5-5.1) mmol/L Chloride 99 102 (98-107) mmol/L Carbon Dioxide 31 34 H (21-32) mmol/L BUN 39 H 41 H (6-23) mg/dl Creatinine 1.77 H 1.78 H (0.6-1.2) mg/dl Glucose 126 H 131 H (70-99(Fasting)) mg/dl Calcium 10.2 10.2 (8.6-10.3) mg/dl Intake and Output 06/06/23 06/07/23 06/07/23 22:59 06:59 14:59 Intake Total 282 / 928.416 191.166 / 928.416 Output Total 550 / 1020 220 / 1020 Balance -268 / -91.584 -28.834 / -91.584 Intake: IV 132 / 538.416 191.166 / 538.416 Albumin 25% 25 gm In 100 ml @ 100 / 300 100 / 300 50 mls/hr IV Q8H [facility] Rx#: [id number] Furosemide 100 mg In Dextrose 5 91.166 / 91.166 % 90 ml @ 5 MG/HR 5 mls/hr IV . Q20H [facility] Rx#:[id number] Heparin Sodium/Dextrose 25,000 32 / 147.25 units In 500 ml @ 750 UNITS/HR 15 mls/hr IV .Q24H [facility] Rx#: [id number] Oral 150 / 390 Output: Urine 550 / 1020 220 / 1020 Other: # Unmeasured Voids 1 Weight 77.1 kg Weight Measurement Method Standing Scale Medications Administered Current Inpatient Medications Acetaminophen (Acetaminophen 325 Mg Tab) 650 mg PO Q4H PRN PRN Reason: Pain or Fever Stop: 07/05/23 02:49 Last Admin: 06/07/23 01:21 Dose: 650 mg Azelastine HCl (Azelastine Hcl 0.1% Nasal 200 Sprays/27,400 Mcg Btl) 1 sprays SAIRA BID PRN PRN Reason: allergies Stop: 07/05/23 02:49 Buspirone HCl (Buspirone 5 Mg Tab) 5 mg PO BID PRN PRN Reason: Anxiety Stop: 07/05/23 02:49 Last Admin: 06/06/23 20:23 Dose: 5 mg Clopidogrel Bisulfate (Clopidogrel Bisulfate 75 Mg Tab) [facility] Stop: 07/05/23 08:59 Last Admin: 06/07/23 08:18 Dose: 75 mg Fexofenadine HCl (Fexofenadine Hcl 180 Mg Tab) 180 mg PO DAILY PRN PRN Reason: allergies Stop: 07/05/23 02:49 Fluticasone Propionate (Fluticasone Propionate Na Spr 16 Gm Btl) 2 sprays NA QAM [facility] Stop: 07/05/23 08:59 Last Admin: 06/07/23 08:16 Dose: 2 sprays Hydromorphone HCl (Hydromorphone Inj 0.5 Mg/0.5 Ml Syr) 0.5 mg IV Q3H PRN PRN Reason: Pain Stop: 06/19/23 00:32 Hydroxyurea (Hydroxyurea 500 Mg Cap) 500 mg PO [id number]@0900 [facility] Stop: 07/05/23 08:59 Last Admin: 06/07/23 08:18 Dose: 500 mg Promethazine HCl 12.5 mg/ (Sodium Chloride) 50.5 mls @ 202 mls/hr IV Q6H PRN PRN Reason: Nausea And Vomiting Stop: 07/05/23 00:32 Ertapenem 500 mg/ Syringe 5 mls @ 2 mls/min IV Q24H [facility] Stop: 06/15/23 04:44 Last Admin: 06/07/23 06:04 Dose: 2 mls/min Furosemide 100 mg/ Dextrose 100 mls @ 5 mls/hr IV .Q20H [facility] Stop: 07/06/23 11:14 Last Admin: 06/07/23 06:02 Dose: 5 mg/hr, 5 mls/hr Ipratropium [place] (Ipratropium [place] Nasal [place] 0.06% 15ml) 2 sprays SAIRA BID PRN PRN Reason: .rhinitis Stop: 07/05/23 03:00 Isosorbide Mononitrate (Isosorbide [place] Extended Rel 30 Mg Tabcr) 30 mg PO QAM [facility] Stop: 07/05/23 09:59 Last Admin: 06/07/23 08:18 Dose: 30 mg Metoprolol Succinate (Metoprolol Succ 50mg Ext Rel Tab) 100 mg PO AMHS [facility] Stop: 07/05/23 05:34 Last Admin: 06/07/23 08:17 Dose: 100 mg Nitroglycerin (Nitroglycerin Sl 0.4 Mg/Tab Tab) 0.4 mg SL Q5M PRN PRN Reason: Chest Pain Stop: 07/05/23 00:32 Pantoprazole Sodium (Pantoprazole 40 Mg Tab) 40 mg PO QAM [facility] Stop: 07/05/23 08:59 Last Admin: 06/07/23 08:17 Dose: 40 mg Potassium Chloride (Potassium Chloride Crtab 20 Meq Tabcr) 60 meq PO BID [facility] Stop: 07/06/23 20:59 Last Admin: 06/07/23 08:17 Dose: 60 meq Rosuvastatin Calcium (Rosuvastatin Calcium 20 Mg Tab) 20 mg PO QPM [facility] Stop: 07/05/23 02:49 Last Admin: 06/06/23 20:23 Dose: 20 mg Tramadol HCl (Tramadol Hcl 50 Mg Tablet) 25 - 50 mg PO Q4H PRN PRN Reason: Pain Stop: 07/05/23 00:32 Warfarin Sodium (Warfarin Sod 2.5 Mg Tab) 2.5 mg PO DAILY@1600 [facility] Stop: 07/06/23 15:59 Last Admin: 06/06/23 16:28 Dose: 2.5 mg
[2023-06-07] MEDS: FLUTICASONE PROPIONATE NA SPR 16 GM BTL SCH (08:16)
[2023-06-07] MEDS: METOPROLOL SUCC 50MG EXT REL TAB PO SCH ×2 (08:17→20:06)
[2023-06-07] MEDS: PANTOprazole 40 MG TAB PO SCH (08:17)
[2023-06-07] MEDS: POTASSIUM CHLORIDE CRTAB 20 MEQ TABCR PO SCH ×2 (08:17→20:06)
[2023-06-07] MEDS: CLOPIDOGREL BISULFATE 75 MG TAB PO SCH (08:18)
[2023-06-07] MEDS: HYDROXYUREA 500 MG CAP PO SCH (08:18)
[2023-06-07] MEDS: ISOSORBIDE MONO EXTENDED REL 30 MG TABCR PO SCH (08:18)
--- NOTE | 2023-06-07 12:59 | Hospitalist Progress Note ---
Date of Service June 07, 2023 Assessment & Plan (1) NSTEMI (non-ST elevated myocardial infarction): Plan: Recurrent angina Coronary artery disease S/P CABG, Stents Recent NSTEMI in April 2023treated conservatively, reluctant to have invasive procedures as per records Chronic troponin elevation --CXR personally reviewed; no infiltrates. Continue metoprolol, Plavix, Crestor Started on Imdur On IV Lasix drip at 5 Mg per hour. Acute on chronic systolic and diastolic heart failure Ischemic cardiomyopathy S/P AVR Valvular heart disease H/O pulmonary hypertension on IV Lasix drip Plan to transition to Entresto as able once renal function improves Also on Aldactone Hypokalemia Replete electrolytes as needed Monitor Complicated UTI H/O ESBL E. coli UTI on outpatient urine CS H/O recurrent UTIs, urge incontinence Urine culture growing ESBL E. coli. On IV ertapenem. Will provide 3-day course. Likely colonized. RADHA on CKD III Baseline creatinine of around 1.5. Monitor renal function Avoid nephrotoxic agents as able Bladder scan as needed to monitor for any retention H/O GAVIN Intolerance to CPAP Chronic oxygen dependency Continue supplemental oxygen SSS S/P PPM H/O paroxysmal atrial fibrillation Continue metoprolol IV heparin discontinued Resumed Coumadin Monitor INR 1.8 today H/O PVD H/O CVA H/O HLP Continue Plavix, statin next DM II Diet controlled HbA1c 6.2 Chronic anemia Essential thrombocythemia Continue Hydrea Monitor CBC DVT Px: Coumadin Code Status Full code Dispofrom home. She lives alone; gets help from her son. PT OT ordered. Time spent evaluating patient, direct bedside care, chart review, placing orders, interpretation of diagnostic studies, discussion with consultants, patient, and family members, as well as other required patient management activities is 60 minutes. Please note the above document was generated using voice recognition software. It may contain grammatical, syntax or spelling errors. Any formal questions or concerns about the content, text or information contained within the body of this dictation should be directly addressed to the provider for clarification Admission and Anticipated Discharge Date Admission Date: June 05, 2023 Subjective Patient seen and examined at bedside. She is sitting up on the chair comfortably; not in distress. She reports that she is short of breath on exertion. Review of Systems Review of Systems: All systems reviewed & are unremarkable except as noted in Subjective Physical Exam Physical Exam: Physical Exam: Vitals signs as noted above General Appearance:Moderately built and nourished, no apparent distress Head: normocephalic, Atraumatic Eyes: normal inspection, EOMI Neck: supple, Trachea midline Respiratory/Chest: Normal breath sounds, No accessory muscle use Cardiovascular: Irregularly irregular, + murmur Abdomen/GI:Soft, Non tender, Bowel sounds present Extremities/Musculoskeletal:normal inspection, 1 + B/L LE edema Neurologic/Psych:AAOX3, grossly no focal neurological deficits Skin: normal color, warm Results & Data Results & Data Vital Signs (Past 12 Hours) Vital Signs Temp Pulse Pulse Resp BP BP Pulse Ox 06/07/23 09:47 06/07/23 08:12 36.6 C 88 18 117/82 96 06/07/23 07:49 83 06/07/23 02:55 36.6 C 83 20 141/96 H 97 O2 Del Method O2 Flow Rate 06/07/23 09:47 Nasal Cannula 2 06/07/23 08:12 Room Air 06/07/23 07:49 06/07/23 02:55 Nasal Cannula 2 Laboratory Results Laboratory Results WBC 6.27 K/ul (4.8-10.8) 06/07/23 06:33 RBC 2.98 M/uL (4.20-5.40) L 06/07/23 06:33 Hgb 10.2 g/dl (12.0-16.0) L 06/07/23 06:33 Hct 32.8 % (37.0-47.0) L 06/07/23 06:33 MCV 110.1 fL (80.0-100.0) H 06/07/23 06:33 MCH 34.2 pg (25.0-34.0) H 06/07/23 06:33 MCHC 31.1 g/dL (32.0-36.0) L 06/07/23 06:33 RDW Std Deviation 60.9 fL (36.4-46.3) H 06/07/23 06:33 RDW Coeff of Ge 15.4 % (11.5-14.5) H 06/07/23 06:33 Plt Count 246 K/uL (130-400) 06/07/23 06:33 MPV 11.8 fL (9.4-12.4) 06/07/23 06:33 Immature Gran % (Auto) 0.3 % 06/05/23 05:42 Neut % (Auto) 79.8 % 06/05/23 05:42 Lymph % (Auto) 6.8 % 06/05/23 05:42 Owen % (Auto) 9.4 % 06/05/23 05:42 Eos % (Auto) 2.9 % 06/05/23 05:42 Baso % (Auto) 0.8 % 06/05/23 05:42 Neut # (Auto) 6.27 K/uL (1.40-6.50) 06/05/23 05:42 Lymph # (Auto) 0.53 K/uL (1.2-3.4) L 06/05/23 05:42 Owen # (Auto) 0.74 K/uL (0.11-0.59) H 06/05/23 05:42 Eos # (Auto) 0.23 K/uL (0-0.50) 06/05/23 05:42 Baso # (Auto) 0.06 K/uL (0-0.2) 06/05/23 05:42 Immature Gran # (Auto) 0.02 K/uL (0.01-0.20) 06/05/23 05:42 PT 19.0 Seconds (9.0-12.0) H 06/07/23 06:33 INR 1.8 (0.9-1.1) H 06/07/23 06:33 APTT 32.8 Seconds (21.0-31.0) H 06/07/23 06:33 PTT Ratio 1.2 06/07/23 06:33 Sodium 144 mmol/L (136-145) 06/07/23 06:33 Potassium 4.4 mmol/L (3.5-5.1) 06/07/23 06:33 Chloride 102 mmol/L (98-107) 06/07/23 06:33 Carbon Dioxide 34 mmol/L (21-32) H 06/07/23 06:33 Anion Gap 8 (3-11) 06/07/23 06:33 BUN 41 mg/dl (6-23) H 06/07/23 06:33 Creatinine 1.78 mg/dl (0.6-1.2) H 06/07/23 06:33 Est Cr Clr Drug Dosing 19.5 ml/min 06/07/23 06:33 Est GFR ( Amer) 29.2 ml/min 06/07/23 06:33 Est GFR (Non-Af Amer) 25.2 ml/min 06/07/23 06:33 BUN/Creatinine Ratio 23.0 (10-20) H 06/07/23 06:33 Glucose 131 mg/dl (70-99(Fasting)) H 06/07/23 06:33 POC Glucose 122 mg/dl (70-99) H 06/05/23 11:17 Estimat Average Glucose 131 mg/dl 06/06/23 04:03 Hemoglobin A1c 6.2 % (4.5-5.6) H 06/06/23 04:03 Calcium 10.2 mg/dl (8.6-10.3) 06/07/23 06:33 Magnesium 2.0 mg/dl (1.7-2.4) 06/06/23 14:35 Iron 35 mcg/dl (35-150) 06/07/23 06:33 Transferrin 210 mg/dl (200-360) 06/07/23 06:33 Ferritin 54.6 ng/ml (8-388) 06/07/23 06:33 Total Bilirubin 0.9 mg/dl (0.2-1.0) 06/04/23 19:48 AST 26 U/L (13-39) 06/04/23 19:48 ALT 13 U/L (7-52) 06/04/23 19:48 Alkaline Phosphatase 72 U/L (34-104) 06/04/23 19:48 Troponin I High Sens 31.7 pg/ml (0-14) H 06/05/23 05:42 Total Protein 7.6 gm/dl (6.0-8.3) 06/04/23 19:48 Albumin 4.1 gm/dl (3.4-5.0) 06/04/23 19:48 Globulin 3.5 gm/dl (2.5-4.0) 06/04/23 19:48 Albumin/Globulin Ratio 1.2 (0.9-2) 06/04/23 19:48 Lipase 63 U/L (11-82) 06/04/23 19:48 Vitamin B12 395 pg/ml (180-914) 06/07/23 06:33 Folate 19.85 ng/ml (>5.38) 06/07/23 06:33 Urine Color Yellow 06/05/23 04:08 Urine Appearance Turbid (Clear) A 06/05/23 04:08 Urine pH 6.0 (4.5-7.5) 06/05/23 04:08 Ur Specific [place] 1.009 (1.000-1.030) 06/05/23 04:08 Urine Protein 1+ (Negative) H 06/05/23 04:08 Urine Glucose (UA) Negative (Negative) 06/05/23 04:08 Urine Ketones Negative (Negative) 06/05/23 04:08 Urine Blood 2+ (Negative) H 06/05/23 04:08 Urine Nitrite Negative (Negative) 06/05/23 04:08 Urine Bilirubin Negative (Negative) 06/05/23 04:08 Urine Urobilinogen Negative (Negative) 06/05/23 04:08 Ur Leukocyte Esterase 3+ (Negative) H 06/05/23 04:08 Urine WBC (Auto) >30 /hpf (0-5) H 06/05/23 04:08 Urine RBC (Auto) 5-10 /hpf (0-4) H 06/05/23 04:08 U Hyaline Cast (Auto) 1-5 /lpf (0-5) 06/05/23 04:08 U Epithel Cells (Auto) 5-10 /lpf (0-5) H 06/05/23 04:08 Urine Bacteria (Auto) 2+ (Negative) H 06/05/23 04:08 Urine Yeast Not Reportable 06/05/23 04:08 Stool Occult Bld Scrn Negative (Negative) 06/06/23 13:40 Impressions Chest X-Ray 06/04/23 18:24 XR chest 1V portable CLINICAL HISTORY: Chest pain, nonspecific TECHNIQUE: Single frontal radiograph of the chest was obtained. Comparison: Comparison is made to chest radiograph 05/18/2023 FINDINGS: Median sternotomy wires are unchanged. Dual-lead pacemaker is seen. Cardiomegaly is noted. The lungs are clear. There is elevation of the right hemidiaphragm. No evidence of pleural effusion or pneumothorax. IMPRESSION: No acute chest disease. ACT 112: Negative or not required by law. Electronically signed by: Pablo Garza M.D. 06/04/2023 7:37 PM Diagnostic Findings Laboratory Results WBC 6.27 K/ul (4.8-10.8) 06/07/23 06:33 RBC 2.98 M/uL (4.20-5.40) L 06/07/23 06:33 Hgb 10.2 g/dl (12.0-16.0) L 06/07/23 06:33 Hct 32.8 % (37.0-47.0) L 06/07/23 06:33 MCV 110.1 fL (80.0-100.0) H 06/07/23 06:33 MCH 34.2 pg (25.0-34.0) H 06/07/23 06:33 MCHC 31.1 g/dL (32.0-36.0) L 06/07/23 06:33 RDW Std Deviation 60.9 fL (36.4-46.3) H 06/07/23 06:33 RDW Coeff of Ge 15.4 % (11.5-14.5) H 06/07/23 06:33 Plt Count 246 K/uL (130-400) 06/07/23 06:33 MPV 11.8 fL (9.4-12.4) 06/07/23 06:33 Immature Gran % (Auto) 0.3 % 06/05/23 05:42 Neut % (Auto) 79.8 % 06/05/23 05:42 Lymph % (Auto) 6.8 % 06/05/23 05:42 Owen % (Auto) 9.4 % 06/05/23 05:42 Eos % (Auto) 2.9 % 06/05/23 05:42 Baso % (Auto) 0.8 % 06/05/23 05:42 Neut # (Auto) 6.27 K/uL (1.40-6.50) 06/05/23 05:42 Lymph # (Auto) 0.53 K/uL (1.2-3.4) L 06/05/23 05:42 Owen # (Auto) 0.74 K/uL (0.11-0.59) H 06/05/23 05:42 Eos # (Auto) 0.23 K/uL (0-0.50) 06/05/23 05:42 Baso # (Auto) 0.06 K/uL (0-0.2) 06/05/23 05:42 Immature Gran # (Auto) 0.02 K/uL (0.01-0.20) 06/05/23 05:42 PT 19.0 Seconds (9.0-12.0) H 06/07/23 06:33 INR 1.8 (0.9-1.1) H 06/07/23 06:33 APTT 32.8 Seconds (21.0-31.0) H 06/07/23 06:33 PTT Ratio 1.2 06/07/23 06:33 Sodium 144 mmol/L (136-145) 06/07/23 06:33 Potassium 4.4 mmol/L (3.5-5.1) 06/07/23 06:33 Chloride 102 mmol/L (98-107) 06/07/23 06:33 Carbon Dioxide 34 mmol/L (21-32) H 06/07/23 06:33 Anion Gap 8 (3-11) 06/07/23 06:33 BUN 41 mg/dl (6-23) H 06/07/23 06:33 Creatinine 1.78 mg/dl (0.6-1.2) H 06/07/23 06:33 Est Cr Clr Drug Dosing 19.5 ml/min 06/07/23 06:33 Est GFR ( Amer) 29.2 ml/min 06/07/23 06:33 Est GFR (Non-Af Amer) 25.2 ml/min 06/07/23 06:33 BUN/Creatinine Ratio 23.0 (10-20) H 06/07/23 06:33 Glucose 131 mg/dl (70-99(Fasting)) H 06/07/23 06:33 POC Glucose 122 mg/dl (70-99) H 06/05/23 11:17 Estimat Average Glucose 131 mg/dl 06/06/23 04:03 Hemoglobin A1c 6.2 % (4.5-5.6) H 06/06/23 04:03 Calcium 10.2 mg/dl (8.6-10.3) 06/07/23 06:33 Magnesium 2.0 mg/dl (1.7-2.4) 06/06/23 14:35 Iron 35 mcg/dl (35-150) 06/07/23 06:33 Transferrin 210 mg/dl (200-360) 06/07/23 06:33 Ferritin 54.6 ng/ml (8-388) 06/07/23 06:33 Total Bilirubin 0.9 mg/dl (0.2-1.0) 06/04/23 19:48 AST 26 U/L (13-39) 06/04/23 19:48 ALT 13 U/L (7-52) 06/04/23 19:48 Alkaline Phosphatase 72 U/L (34-104) 06/04/23 19:48 Troponin I High Sens 31.7 pg/ml (0-14) H 06/05/23 05:42 Total Protein 7.6 gm/dl (6.0-8.3) 06/04/23 19:48 Albumin 4.1 gm/dl (3.4-5.0) 06/04/23 19:48 Globulin 3.5 gm/dl (2.5-4.0) 06/04/23 19:48 Albumin/Globulin Ratio 1.2 (0.9-2) 06/04/23 19:48 Lipase 63 U/L (11-82) 06/04/23 19:48 Vitamin B12 395 pg/ml (180-914) 06/07/23 06:33 Folate 19.85 ng/ml (>5.38) 06/07/23 06:33 Urine Color Yellow 06/05/23 04:08 Urine Appearance Turbid (Clear) A 06/05/23 04:08 Urine pH 6.0 (4.5-7.5) 06/05/23 04:08 Ur Specific [place] 1.009 (1.000-1.030) 06/05/23 04:08 Urine Protein 1+ (Negative) H 06/05/23 04:08 Urine Glucose (UA) Negative (Negative) 06/05/23 04:08 Urine Ketones Negative (Negative) 06/05/23 04:08 Urine Blood 2+ (Negative) H 06/05/23 04:08 Urine Nitrite Negative (Negative) 06/05/23 04:08 Urine Bilirubin Negative (Negative) 06/05/23 04:08 Urine Urobilinogen Negative (Negative) 06/05/23 04:08 Ur Leukocyte Esterase 3+ (Negative) H 06/05/23 04:08 Urine WBC (Auto) >30 /hpf (0-5) H 06/05/23 04:08 Urine RBC (Auto) 5-10 /hpf (0-4) H 06/05/23 04:08 U Hyaline Cast (Auto) 1-5 /lpf (0-5) 06/05/23 04:08 U Epithel Cells (Auto) 5-10 /lpf (0-5) H 06/05/23 04:08 Urine Bacteria (Auto) 2+ (Negative) H 06/05/23 04:08 Urine Yeast Not Reportable 06/05/23 04:08 Stool Occult Bld Scrn Negative (Negative) 06/06/23 13:40 Impressions Chest X-Ray 06/04/23 18:24 XR chest 1V portable CLINICAL HISTORY: Chest pain, nonspecific TECHNIQUE: Single frontal radiograph of the chest was obtained. Comparison: Comparison is made to chest radiograph 05/18/2023 FINDINGS: Median sternotomy wires are unchanged. Dual-lead pacemaker is seen. Cardiomegaly is noted. The lungs are clear. There is elevation of the right hemidiaphragm. No evidence of pleural effusion or pneumothorax.
--- NOTE | 2023-06-07 13:52 | XRay Report ---
XR chest 1V portable HISTORY: Follow up on previous cxr. ? pul edema COMPARISON: Chest 06/04/2023. FINDINGS: No pneumothorax. The cardiac silhouette remains enlarged. There is a small right pleural ef fusion and a right basilar linear densities suggesting subsegmental atelectasis. There is elevation t he right hemidiaphragm again noted. The pulmonary vasculature congestion has improved/resolved. The l eft lung is clear. Poststernotomy changes and an aortic valve prosthesis are again noted. Degenerativ e changes within the shoulders. A left-sided pacemaker is again noted. IMPRESSION: 1. The pulmonary vascular congestion has improved/resolved. 2. A small right pleural effusion and right basilar density remains unchanged. This favors subsegment al atelectasis. 3. Stable cardiomegaly. ACT 112: Negative or not required by law. Electronically signed by: Oliver Valdovinos M.D. 06/07/2023 1:50 PM
[2023-06-07] MEDS ORDERED: FUROSEMIDE 10 MG/ML 10 ML VIAL IV ONE (14:14)
[2023-06-07] MEDS: WARFARIN SOD 2.5 MG TAB PO SCH (15:29)
[2023-06-07] MEDS: ROSUVASTATIN CALCIUM 20 MG TAB PO SCH (20:06)
[2023-06-08] MEDS: busPIRone 5 MG TAB PO PRN (02:06)
[2023-06-08] MEDS: ERTAPENEM SODIUM 500 MG in SYRINGE 0 ML IV SCH (06:07)
[2023-06-08] MEDS: FUROSEMIDE 100 MG in DEXTROSE 5% 90 ML IV SCH (06:07)
[2023-06-08 08:00] LABS: INR 1.9 (0.9-1.1); Prothrombin Time 19.5 Seconds (9.0-12.0)
[2023-06-08 08:04] LABS: BUN Creatinine Ratio 23.2 (10-20); Calcium 10.4 mg/dl (8.6-10.3); Creatinine Clr Calc Pharmacy 18.6 ml/min; Est GFR (African American) 27.9 ml/min; Est GFR (Non-African American) 24.1 ml/min; Potassium 4.8 mmol/L (3.5-5.1)
--- NOTE | 2023-06-08 08:11 | Cardiology Progress Note ---
Date of Service June 08, 2023 Assessment & Plan (1) Acute on chronic heart failure with reduced ejection fraction and diastolic dysfunction: (2) Coronary artery disease with angina pectoris: (3) Chronic atrial fibrillation: (4) Ischemic cardiomyopathy: Plan See Attending divinity teacher documentation for plan of care Admission and Anticipated Discharge Date Admission Date: June 05, 2023 Supervising Physician Co-Signing Physician Notes Attending Staff: Pt seen and evaluated with [facility] staff. Concur with observations and plans 88 yo woman presenting with chest tightness Relieved with 2 SL NTG Chest pain free Troponin - mildly elevated Mild CHF (diruetics recently decreased) + RADHA noted EK06/04/2023 RBBB +LAFB No Active Ischemic changes ECHOcardiogram 04/2023 LVEF 40-45% Recent presentation with chest pain (04/2023) Large NSTEMI Plans at the time for conservative management Noted to have a new right lacunar infarction/CVA Started on Plavix ASA Stopped Coumadin continued Hx: * Bioprosthetic AVR * CAD * S/P CABG 2005 * Ischemic Cardiomyopathy * LVEF 40-45% * CKD Stage 3 * Hypertension * Hyperlipidemia * Permanent Afib * Pacer - for sinus node dysfunction Plans: * Pt presenting with recurring angina/ troponin elevation in the setting of acute on chronic combined CHF * Angina noted to be at rest * Pt had previously elected for conservative/medical management - reluctant to have invasive procedures * SBP 117 mmHg, HR 88 BPM * + RADHA - Creat 1.8 - baseline 1.1 * JVP - V waves vs prominent carotid pulsation * Beside US to evaluate IVC size - IVC 1.9 cm * Stop Lasix drip 10 mg/hr * Start Torsemide 100 mg po per day * QAM Standing Weights - weight decreased to 76 kg from 77 kg * k+ goal 4.5-5 * Stop K+ supplementation * 4 gm Magnesium Sulfate * BID electrolytes * Continue Aldactone 25 mg po per day (creat <2) * Continue Toprol XL 100 mg po BID; higher doses led to fatigue in the past * Losartan - on hold * Plans to transition to Entresto as creatinine return to baseline * Increase Imdur to 60 mg po per day - no angina reported * INR - 1.9; restart coumadin; stop Heparin * Continue Plavix 75 mg po per day * Pt on 2 Liters O2 - patient is on home O2 * ECHO with significant MR/TR + Concentric LVH - voltage on EKG not c/w hypertrophy - ? Cardiac Amyloid * Outpt MRI vs PYP scan * Mobilize Pradeep Macedo Subjective Events overnight: Subjective: Review of Systems Review of Systems: All systems reviewed & are unremarkable except as noted in HPI & below Physical Exam Physical Exam: Overweight Prominent V waves vs Carotid Pulsation S1S2 2/6 Systolic murmur at LLSB CTA B Trace edema Warm and perfusing Results & Data Vital Signs (Past 12 Hours) Vital Signs Temp Pulse Pulse Resp BP BP Pulse Ox 06/08/23 03:07 36.3 C L 75 20 110/72 98 06/07/23 23:04 86 06/07/23 22:12 36.8 C 85 20 121/80 98 06/07/23 20:18 O2 Del Method O2 Flow Rate 06/08/23 03:07 Nasal Cannula 2 06/07/23 23:04 06/07/23 22:12 Nasal Cannula 2 06/07/23 20:18 Nasal Cannula 2 Laboratory Results Coagulation 06/08/23 Range/Units 06:46 PT 19.5 H (9.0-12.0) Seconds Comprehensive Metabolic Panel 06/08/23 Range/Units 06:46 Sodium 144 (136-145) mmol/L Potassium 4.8 (3.5-5.1) mmol/L Chloride 100 (98-107) mmol/L Carbon Dioxide 38 H (21-32) mmol/L BUN 43 H (6-23) mg/dl Creatinine 1.85 H (0.6-1.2) mg/dl Glucose 113 H (70-99(Fasting)) mg/dl Calcium 10.4 H (8.6-10.3) mg/dl Intake and Output 06/07/23 06/08/23 06/08/23 22:59 06:59 14:59 Intake Total 1318.417 / 1918.417 300 / 1918.417 Output Total 2480 / 3681 1000 / 3681 Balance -1161.583 / -1762.583 -700 / -1762.583 Intake: IV 93.417 / 193.417 100 / 193.417 Furosemide 100 mg In Dextrose 5 93.417 / 193.417 100 / 193.417 % 90 ml @ 10 MG/HR 10 mls/hr IV .Q10H DYLAN Rx#:[id number] Oral 1225 / 1725 200 / 1725 Output: Urine 2480 / 3680 1000 / 3680 Other: # Unmeasured Voids 2 Weight 76.1 kg Weight Measurement Method Standing Scale Medications Administered Current Inpatient Medications Acetaminophen (Acetaminophen 325 Mg Tab) 650 mg PO Q4H PRN PRN Reason: Pain or Fever Stop: 07/05/23 02:49 Last Admin: 06/07/23 20:11 Dose: 650 mg Azelastine HCl (Azelastine Hcl 0.1% Nasal 200 Sprays/27,400 Mcg Btl) 1 sprays SAIRA BID PRN PRN Reason: allergies Stop: 07/05/23 02:49 Buspirone HCl (Buspirone 5 Mg Tab) 5 mg PO BID PRN PRN Reason: Anxiety Stop: 07/05/23 02:49 Last Admin: 06/08/23 02:06 Dose: 5 mg Clopidogrel Bisulfate (Clopidogrel Bisulfate 75 Mg Tab) 75 mg PO QAM [facility] Stop: 07/05/23 08:59 Last Admin: 06/07/23 08:18 Dose: 75 mg Fexofenadine HCl (Fexofenadine Hcl 180 Mg Tab) 180 mg PO DAILY PRN PRN Reason: allergies Stop: 07/05/23 02:49 Fluticasone Propionate (Fluticasone Propionate Na Spr 16 Gm Btl) 2 sprays NA QAM [facility] Stop: 07/05/23 08:59 Last Admin: 06/07/23 08:16 Dose: 2 sprays Hydromorphone HCl (Hydromorphone Inj 0.5 Mg/0.5 Ml Syr) 0.5 mg IV Q3H PRN PRN Reason: Pain Stop: 06/19/23 00:32 Hydroxyurea (Hydroxyurea 500 Mg Cap) 500 mg PO [id number] [facility] Stop: 07/05/23 08:59 Last Admin: 06/07/23 08:18 Dose: 500 mg Promethazine HCl 12.5 mg/ (Sodium Chloride) 50.5 mls @ 202 mls/hr IV Q6H PRN PRN Reason: Nausea And Vomiting Stop: 07/05/23 00:32 Ertapenem 500 mg/ Syringe 5 mls @ 2 mls/min IV Q24H [facility] Stop: 06/15/23 04:44 Last Admin: 06/08/23 06:07 Dose: 2 mls/min Furosemide 100 mg/ Dextrose 100 mls @ 10 mls/hr IV .Q10H [facility] Stop: 07/06/23 11:14 Last Admin: 06/08/23 06:07 Dose: 10 mg/hr, 10 mls/hr Ipratropium Donahue (Ipratropium [place]ue Nasal Pepin 0.06% 15ml) 2 sprays SAIRA BID PRN PRN Reason: .rhinitis Stop: 07/05/23 03:00 Isosorbide Mononitrate (Isosorbide Price Extended Rel 30 Mg Tabcr) 30 mg PO QAM [facility] Stop: 07/05/23 09:59 Last Admin: 06/07/23 08:18 Dose: 30 mg Metoprolol Succinate (Metoprolol Succ 50mg Ext Rel Tab) 100 mg PO [facility] Stop: 07/05/23 05:34 Last Admin: 06/07/23 20:06 Dose: 100 mg Nitroglycerin (Nitroglycerin Sl 0.4 Mg/Tab Tab) 0.4 mg SL Q5M PRN PRN Reason: Chest Pain Stop: 07/05/23 00:32 Pantoprazole Sodium (Pantoprazole 40 Mg Tab) 40 mg PO QAM [facility] Stop: 07/05/23 08:59 Last Admin: 06/07/23 08:17 Dose: 40 mg Potassium Chloride (Potassium Chloride Crtab 20 Meq Tabcr) 60 meq PO BID [facility] Stop: 07/06/23 20:59 Last Admin: 06/07/23 20:06 Dose: 60 meq Rosuvastatin Calcium (Rosuvastatin Calcium 20 Mg Tab) 20 mg PO QPM [facility] Stop: 07/05/23 02:49 Last Admin: 06/07/23 20:06 Dose: 20 mg Tramadol HCl (Tramadol Hcl 50 Mg Tablet) 25 - 50 mg PO Q4H PRN PRN Reason: Pain Stop: 07/05/23 00:32 Warfarin Sodium (Warfarin Sod 2.5 Mg Tab) 2.5 mg PO DAILY@1600 [facility] Stop: 07/06/23 15:59 Last Admin: 06/07/23 15:29 Dose: 2.5 mg
[2023-06-08] MEDS: CLOPIDOGREL BISULFATE 75 MG TAB PO SCH (09:22)
[2023-06-08] MEDS: ISOSORBIDE MONO EXTENDED REL 30 MG TABCR PO SCH (09:22)
[2023-06-08] MEDS: METOPROLOL SUCC 50MG EXT REL TAB PO SCH ×2 (09:22→19:47)
[2023-06-08] MEDS: POTASSIUM CHLORIDE CRTAB 20 MEQ TABCR PO SCH (09:22)
[2023-06-08] MEDS: HYDROXYUREA 500 MG CAP PO SCH (09:22)
[2023-06-08] MEDS: PANTOprazole 40 MG TAB PO SCH (09:23)
[2023-06-08] MEDS: FLUTICASONE PROPIONATE NA SPR 16 GM BTL SCH (09:23)
[2023-06-08] MEDS ORDERED: ISOSORBIDE MONO EXTENDED REL 30 MG TABCR PO ONE (09:38)
[2023-06-08] MEDS: MAGNESIUM SULFATE / D5W 1 GM/100 ML BAG IV SCH ×4 (10:03→15:32)
[2023-06-08] MEDS ORDERED: MAGNESIUM HYDROXIDE SUSP 30 ML UDC PO ONE (10:16)
[2023-06-08] MEDS: TORSEMIDE 100 MG TAB PO SCH (10:51)
--- NOTE | 2023-06-08 12:25 | Hospitalist Progress Note ---
Date of Service June 08, 2023 Assessment & Plan (1) NSTEMI (non-ST elevated myocardial infarction): Plan: Recurrent angina Coronary artery disease S/P CABG, Stents Recent NSTEMI in April 2023 treated conservatively, reluctant to have invasive procedures as per records Chronic troponin elevation X-ray from 06/07 personally reviewed; improvement in pulmonary edema.. Continue metoprolol, Plavix, Crestor Imdur dose increased to 60 mg once a day. Was previously on Lasix drip; switched over to torsemide 100 mg once daily. Continue to check daily weights Strict input and output monitoring. Acute on chronic systolic and diastolic heart failure Ischemic cardiomyopathy S/P AVR Valvular heart disease H/O pulmonary hypertension Was previously on Lasix drip; switched over to torsemide 100 mg once daily. Continue to check daily weights Strict input and output monitoring. Hypokalemia Replete electrolytes as needed Monitor Complicated UTI H/O ESBL E. coli UTI on outpatient urine CS H/O recurrent UTIs, urge incontinence Urine culture growing ESBL E. coli. On IV ertapenem. Will provide 3-day course. Likely colonized. RADHA on CKD III Baseline creatinine of around 1.5. Monitor renal function Avoid nephrotoxic agents as able Bladder scan as needed to monitor for any retention H/O GAVIN Intolerance to CPAP Chronic oxygen dependency Continue supplemental oxygen SSS S/P PPM H/O paroxysmal atrial fibrillation Continue metoprolol IV heparin discontinued Resumed Coumadin Monitor INR H/O PVD H/O CVA H/O HLP Continue Plavix, statin next DM II Diet controlled HbA1c 6.2 Chronic anemia Essential thrombocythemia Continue Hydrea Monitor CBC DVT Px: Coumadin Code Status Full code Dispofrom home. She lives alone; gets help from her son. PT OT recommend home with family support. Time spent evaluating patient, direct bedside care, chart review, placing orders, interpretation of diagnostic studies, discussion with consultants, patient, and family members, as well as other required patient management activities is 60 minutes. Please note the above document was generated using voice recognition software. It may contain grammatical, syntax or spelling errors. Any formal questions or concerns about the content, text or information contained within the body of this dictation should be directly addressed to the provider for clarification Admission and Anticipated Discharge Date Admission Date: June 05, 2023 Subjective Patient seen and examined at bedside. She is sitting up on the chair comfortably; not in distress. Reports that her shortness of breath has improved compared to admission. She is at baseline oxygen requirement. Review of Systems Review of Systems: All systems reviewed & are unremarkable except as noted in Subjective Physical Exam Physical Exam: Physical Exam: Vitals signs as noted above General Appearance:Moderately built and nourished, no apparent distress Head: normocephalic, Atraumatic Eyes: normal inspection, EOMI Neck: supple, Trachea midline Respiratory/Chest: Normal breath sounds, No accessory muscle use Cardiovascular: Irregularly irregular, + murmur Abdomen/GI:Soft, Non tender, Bowel sounds present Extremities/Musculoskeletal:normal inspection, 1 + B/L LE edema Neurologic/Psych:AAOX3, grossly no focal neurological deficits Skin: normal color, warm Results & Data Results & Data Vital Signs (Past 12 Hours) Vital Signs Temp Pulse Pulse Resp BP Pulse Ox O2 Del Method 06/08/23 10:26 97 06/08/23 08:00 Nasal Cannula 06/08/23 08:34 76 06/08/23 08:00 36.5 C 69 20 121/68 97 Room Air 06/08/23 03:07 36.3 C L 75 20 110/72 98 Nasal Cannula O2 Flow Rate 06/08/23 10:26 06/08/23 08:00 2 06/08/23 08:34 06/08/23 08:00 06/08/23 03:07 2 Laboratory Results Laboratory Results WBC 6.27 K/ul (4.8-10.8) 06/07/23 06:33 RBC 2.98 M/uL (4.20-5.40) L 06/07/23 06:33 Hgb 10.2 g/dl (12.0-16.0) L 06/07/23 06:33 Hct 32.8 % (37.0-47.0) L 06/07/23 06:33 MCV 110.1 fL (80.0-100.0) H 06/07/23 06:33 MCH 34.2 pg (25.0-34.0) H 06/07/23 06:33 MCHC 31.1 g/dL (32.0-36.0) L 06/07/23 06:33 RDW Std Deviation 60.9 fL (36.4-46.3) H 06/07/23 06:33 RDW Coeff of Ge 15.4 % (11.5-14.5) H 06/07/23 06:33 Plt Count 246 K/uL (130-400) 06/07/23 06:33 MPV 11.8 fL (9.4-12.4) 06/07/23 06:33 Immature Gran % (Auto) 0.3 % 06/05/23 05:42 Neut % (Auto) 79.8 % 06/05/23 05:42 Lymph % (Auto) 6.8 % 06/05/23 05:42 [place] % (Auto) 9.4 % 06/05/23 05:42 Eos % (Auto) 2.9 % 06/05/23 05:42 Baso % (Auto) 0.8 % 06/05/23 05:42 Neut # (Auto) 6.27 K/uL (1.40-6.50) 06/05/23 05:42 Lymph # (Auto) 0.53 K/uL (1.2-3.4) L 06/05/23 05:42 [place] # (Auto) 0.74 K/uL (0.11-0.59) H 06/05/23 05:42 Eos # (Auto) 0.23 K/uL (0-0.50) 06/05/23 05:42 Baso # (Auto) 0.06 K/uL (0-0.2) 06/05/23 05:42 Immature Gran # (Auto) 0.02 K/uL (0.01-0.20) 06/05/23 05:42 PT 19.5 Seconds (9.0-12.0) H 06/08/23 06:46 INR 1.9 (0.9-1.1) H 06/08/23 06:46 APTT 32.8 Seconds (21.0-31.0) H 06/07/23 06:33 PTT Ratio 1.2 06/07/23 06:33 Sodium 144 mmol/L (136-145) 06/08/23 06:46 Potassium 4.8 mmol/L (3.5-5.1) 06/08/23 06:46 Chloride 100 mmol/L (98-107) 06/08/23 06:46 Carbon Dioxide 38 mmol/L (21-32) H 06/08/23 06:46 Anion Gap 6 (3-11) 06/08/23 06:46 BUN 43 mg/dl (6-23) H 06/08/23 06:46 Creatinine 1.85 mg/dl (0.6-1.2) H 06/08/23 06:46 Est Cr Clr Drug Dosing 18.6 ml/min 06/08/23 06:46 Est GFR ( Amer) 27.9 ml/min 06/08/23 06:46 Est GFR (Non-Af Amer) 24.1 ml/min 06/08/23 06:46 BUN/Creatinine Ratio 23.2 (10-20) H 06/08/23 06:46 Glucose 113 mg/dl (70-99(Fasting)) H 06/08/23 06:46 POC Glucose 122 mg/dl (70-99) H 06/05/23 11:17 Estimat Average Glucose 131 mg/dl 06/06/23 04:03 Hemoglobin A1c 6.2 % (4.5-5.6) H 06/06/23 04:03 Calcium 10.4 mg/dl (8.6-10.3) H 06/08/23 06:46 Magnesium 2.0 mg/dl (1.7-2.4) 06/06/23 14:35 Iron 35 mcg/dl (35-150) 06/07/23 06:33 Transferrin 210 mg/dl (200-360) 06/07/23 06:33 Ferritin 54.6 ng/ml (8-388) 06/07/23 06:33 Total Bilirubin 0.9 mg/dl (0.2-1.0) 06/04/23 19:48 AST 26 U/L (13-39) 06/04/23 19:48 ALT 13 U/L (7-52) 06/04/23 19:48 Alkaline Phosphatase 72 U/L (34-104) 06/04/23 19:48 Troponin I High Sens 31.7 pg/ml (0-14) H 06/05/23 05:42 Total Protein 7.6 gm/dl (6.0-8.3) 06/04/23 19:48 Albumin 4.1 gm/dl (3.4-5.0) 06/04/23 19:48 Globulin 3.5 gm/dl (2.5-4.0) 06/04/23 19:48 Albumin/Globulin Ratio 1.2 (0.9-2) 06/04/23 19:48 Lipase 63 U/L (11-82) 06/04/23 19:48 Vitamin B12 395 pg/ml (180-914) 06/07/23 06:33 Folate 19.85 ng/ml (>5.38) 06/07/23 06:33 Urine Color Yellow 06/05/23 04:08 Urine Appearance Turbid (Clear) A 06/05/23 04:08 Urine pH 6.0 (4.5-7.5) 06/05/23 04:08 Ur Specific [place] 1.009 (1.000-1.030) 06/05/23 04:08 Urine Protein 1+ (Negative) H 06/05/23 04:08 Urine Glucose (UA) Negative (Negative) 06/05/23 04:08 Urine Ketones Negative (Negative) 06/05/23 04:08 Urine Blood 2+ (Negative) H 06/05/23 04:08 Urine Nitrite Negative (Negative) 06/05/23 04:08 Urine Bilirubin Negative (Negative) 06/05/23 04:08 Urine Urobilinogen Negative (Negative) 06/05/23 04:08 Ur Leukocyte Esterase 3+ (Negative) H 06/05/23 04:08 Urine WBC (Auto) >30 /hpf (0-5) H 06/05/23 04:08 Urine RBC (Auto) 5-10 /hpf (0-4) H 06/05/23 04:08 U Hyaline Cast (Auto) 1-5 /lpf (0-5) 06/05/23 04:08 U Epithel Cells (Auto) 5-10 /lpf (0-5) H 06/05/23 04:08 Urine Bacteria (Auto) 2+ (Negative) H 06/05/23 04:08 Urine Yeast Not Reportable 06/05/23 04:08 Stool Occult Bld Scrn Negative (Negative) 06/06/23 13:40 Impressions Chest X-Ray 06/07/23 13:04 XR chest 1V portable HISTORY: Follow up on previous cxr. ? pul edema COMPARISON: Chest 06/04/2023. FINDINGS: No pneumothorax. The cardiac silhouette remains enlarged. There is a small right pleural effusion and a right basilar linear densities suggesting subsegmental atelectasis. There is elevation the right hemidiaphragm again noted. The pulmonary vasculature congestion has improved/resolved. The left lung is clear. Poststernotomy changes and an aortic valve prosthesis are again noted. Degenerative changes within the shoulders. A left-sided pacemaker is again noted. IMPRESSION: 1. The pulmonary vascular congestion has improved/resolved. 2. A small right pleural effusion and right basilar density remains unchanged. This favors subsegmental atelectasis. 3. Stable cardiomegaly. ACT 112: Negative or not required by law. Electronically signed by: Oliver Valdovinos M.D. 06/07/2023 1:50 PM
[2023-06-08] MEDS: WARFARIN SOD 2.5 MG TAB PO SCH (16:34)
[2023-06-08] MEDS: ROSUVASTATIN CALCIUM 20 MG TAB PO SCH (19:47)
[2023-06-09 07:01] LABS: INR 2.1 (0.9-1.1); Prothrombin Time 21.6 Seconds (9.0-12.0)
[2023-06-09 07:36] LABS: BUN Creatinine Ratio 20.5 (10-20); Creatinine Clr Calc Pharmacy 15.5 ml/min; Est GFR (African American) 22.6 ml/min; Est GFR (Non-African American) 19.5 ml/min; Potassium 4.4 mmol/L (3.5-5.1)
[2023-06-09 07:37] LABS: Calcium 10.7 mg/dl (8.6-10.3)
[2023-06-09] MEDS: HYDROXYUREA 500 MG CAP PO SCH (08:58)
[2023-06-09] MEDS: METOPROLOL SUCC 50MG EXT REL TAB PO SCH ×2 (08:58→19:49)
[2023-06-09] MEDS: FLUTICASONE PROPIONATE NA SPR 16 GM BTL SCH (08:59)
[2023-06-09] MEDS: CLOPIDOGREL BISULFATE 75 MG TAB PO SCH (09:00)
[2023-06-09] MEDS: ISOSORBIDE MONO EXTENDED REL 60 MG TABCR PO SCH (09:00)
[2023-06-09] MEDS: TORSEMIDE 100 MG TAB PO SCH (09:00)
[2023-06-09] MEDS: PANTOprazole 40 MG TAB PO SCH (09:00)
--- NOTE | 2023-06-09 09:20 | Cardiology Progress Note ---
Date of Service June 09, 2023 Assessment & Plan (1) Acute on chronic heart failure with reduced ejection fraction and diastolic dysfunction: (2) Coronary artery disease with angina pectoris: (3) Chronic atrial fibrillation: (4) Ischemic cardiomyopathy: Plan IMPRESSION: 88-year-old female who presented with recurrent angina/troponin elevation in the setting of acute on chronic combined CHF. Patient down about 15 lbs with diuresis- now appears well compensated from a volume standpoint. Possibly dry with evidence of decline in renal function. PLAN: * Pt presenting with recurring angina/ troponin elevation in the setting of acute on chronic combined CHF * Pt had previously elected for conservative/medical management - reluctant to have invasive procedures * + RADHA - Creat 1.8>>2.2 - baseline 1.1-1.3 * Lasix drip 10 mg/hr discontinued 06/08 and transitioned to Torsemide 100 mg po per day (06/08)- scr climbing, HOLD TORSEMIDE, unfortunately patient did get her morning dose today. * QAM Standing Weights - patient down about 15 lbs. * k+ goal >4.0 * Mag goal >2.0 * Aldactone 25 mg po per day(creat <2)- currently on hold due to renal dysfunction * Continue Toprol XL 100 mg po BID- HR controlled on tele; higher doses led to fatigue in the past * Losartan - on hold d/t renal dysfunction. Consider transition to Entresto as creatinine return to baseline * Continue Imdur to 60 mg po per day- no angina reported * INR - 2.1; on Coumadin * Continue Plavix 75 mg po per day * Pt on 2 Liters O2 - patient is on home O2 (chronic) * ECHO with significant MR/TR + Concentric LVH - voltage on EKG not c/w hypertrophy - ? Cardiac Amyloid * Outpt MRI vs PYP scan * Mobilize Case discussed with Dr. Goyal- will follow. Admission and Anticipated Discharge Date Admission Date: June 05, 2023 Supervising Physician Co-Signing Physician Notes Patient seen and examined at the bedside. Feeling much better since hospital admission. Significant diuresis noted, however, serum creatinine has trended upward to 2.2. Previous baseline 1.3-1.4. Overall weight is down approximately 15 pounds. Telemetry reveals atrial fibrillation in the 80s. PE: VSS. NAD, AAO x3. Heart: Irregular rhythm, normal S1-S2, 1/6 midsystolic murmur heard at the apex. Lungs: Clear bilateral, no rales, rhonchi, wheeze. Extremities: No edema. A/P: Agree with above AP history, physical exam, assessment and plan. Hold diuretic therapy today. Patient received a.m. dose of torsemide. Consider restart torsemide in 24 to 48 hours pending review of a.m. labs. Outpatient cardiac MRI versus PYP scan to rule out amyloidosis. Continue other medications as noted above. Subjective 88-year-old female who presented with recurrent angina/troponin elevation in the setting of acute on chronic combined CHF. Conservative management was preferred as patient declined invasive procedures. Echo revealed significant MR/TR with moderate concentric LVH. She was started on IV Lasix drip at 10 mg/hr and diuresed. Lasix drip disconti nued 06/08 and patient was transitioned to torsemide 100 mg daily. (Normally maintains on torsemide 20 mg every Monday as an outpatient). Maintained on metoprolol succinate 100 mg twice daily. Imdur increased to 60 mg daily. Losartan and Aldactone on hold due to renal dysfunction. Upon entrance into the room patient resting in bed. HOB flat. Feels significantly improved since admission- notes that she is back to her baseline, breathing stearns. Remains on 2L NC (this is chronic for her). Lower extremity edema resolved. No orthopnea or PND. No chest pain. No lightheadedness. Scr remains elevated this am and climbing (1.9>>2.2)- baseline between 1.1-1.3 Tele: AFIB 70-80s I&O: -1.3L Weight: 82.6>>75.1 kg Review of Systems Review of Systems: All systems reviewed & are unremarkable except as noted in HPI & below Physical Exam Constitutional: WD/WN, vitals as above well developed and average body habitus; no acute distress Respiratory: normal respiratory effort, lungs clear to auscultation able to speak in complete sentences Auscultation: no rales, no rhonchi and no wheezes Cardiovascular: Rate/Rhythm: + irregularly irregular Heart Sounds: + murmur (II/ systolic murmur LSB) Vessels: no JVD Extremities: no edema Gastrointestinal (Abdomen): normal bowel sounds, soft, nontender, no hepatosplenomegaly Skin: no rashes, warm and dry Psychiatric: A+Ox3, euthymic affect Results & Data Vital Signs (Past 12 Hours) Vital Signs Temp Pulse Resp BP Pulse Ox O2 Del Method O2 Flow Rate 06/09/23 08:00 36.5 C 73 18 119/64 95 Room Air 06/09/23 03:23 36.8 C 82 20 123/79 94 Nasal Cannula 2 06/09/23 00:04 36.6 C 86 16 117/56 L 94 Nasal Cannula 1.5 Laboratory Results Coagulation 06/09/23 Range/Units 06:14 PT 21.6 H (9.0-12.0) Seconds Comprehensive Metabolic Panel 06/09/23 Range/Units 06:14 Sodium 142 (136-145) mmol/L Potassium 4.4 (3.5-5.1) mmol/L Chloride 97 L (98-107) mmol/L Carbon Dioxide 37 H (21-32) mmol/L BUN 45 H (6-23) mg/dl Creatinine 2.20 H D (0.6-1.2) mg/dl Glucose 116 H (70-99(Fasting)) mg/dl Calcium 10.7 H (8.6-10.3) mg/dl Intake and Output 06/08/23 06/09/23 06/09/23 22:59 06:59 14:59 Intake Total 190 / 412.834 Output Total 301 / 301 Balance -111 / 111.834 Intake: IV 190 / 412.834 Magnesium Sulfate / D5w 1 gm In 190 / 374.167 100 ml @ 50 mls/hr IV Q2H DYLAN Rx#:[id number] Output: Urine 300 / 300 # Bowel Movements Other: # Unmeasured Voids 2 3 Weight 75.1 kg Weight Measurement Method Built in [facility]
--- NOTE | 2023-06-09 12:01 | Hospitalist Progress Note ---
Date of Service June 09, 2023 Assessment & Plan (1) NSTEMI (non-ST elevated myocardial infarction): Plan: Recurrent angina Coronary artery disease S/P CABG, Stents Recent NSTEMI in April 2023 treated conservatively, reluctant to have invasive procedures as per records Chronic troponin elevation X-ray from 06/07 personally reviewed; improvement in pulmonary edema.. Continue metoprolol, Plavix, Crestor Imdur dose increased to 60 mg once a day. Was previously on Lasix drip; switched over to torsemide 100 mg once daily since 06/08. Labs reviewed; creatinine up trended to 2.2. Torsemide on hold as per cardiology. Continue to check daily weights Strict input and output monitoring. Acute on chronic systolic and diastolic heart failure Ischemic cardiomyopathy S/P AVR Valvular heart disease H/O pulmonary hypertension Was previously on Lasix drip; switched over to torsemide 100 mg once daily since 06/08.. Continue to check daily weights Strict input and output monitoring. Hypokalemia Replete electrolytes as needed Monitor Complicated UTI H/O ESBL E. coli UTI on outpatient urine CS H/O recurrent UTIs, urge incontinence Urine culture growing ESBL E. coli. Status post 3 days of IV ertapenem. RADHA on CKD III Baseline creatinine of around 1.5. Creatinine up trended to 2.2. Torsemide on hold. Daily BMP Avoid nephrotoxic agent. H/O GAVIN Intolerance to CPAP Chronic oxygen dependency Continue supplemental oxygen SSS S/P PPM H/O paroxysmal atrial fibrillation Continue metoprolol IV heparin discontinued Resumed Coumadin Monitor INR; INR therapeutic. H/O PVD H/O CVA H/O HLP Continue Plavix, statin next DM II Diet controlled HbA1c 6.2 Chronic anemia Essential thrombocythemia Continue Hydrea Monitor CBC DVT Px: Coumadin Code Status Full code Dispofrom home. She lives alone; gets help from her son. PT OT recommend home with family support. Time spent evaluating patient, direct bedside care, chart review, placing orders, interpretation of diagnostic studies, discussion with consultants, patient, and family members, as well as other required patient management activities is 60 minutes. Please note the above document was generated using voice recognition software. It may contain grammatical, syntax or spelling errors. Any formal questions or concerns about the content, text or information contained within the body of this dictation should be directly addressed to the provider for clarification Admission and Anticipated Discharge Date Admission Date: June 05, 2023 Subjective Patient seen and examined at bedside. She is lying on the bed comfortably; not in distress. Reports that her shortness of breath has improved compared to admission. Review of Systems Review of Systems: All systems reviewed & are unremarkable except as noted in Subjective Physical Exam Physical Exam: Physical Exam: Vitals signs as noted above General Appearance:Moderately built and nourished, no apparent distress Head: normocephalic, Atraumatic Eyes: normal inspection, EOMI Neck: supple, Trachea midline Respiratory/Chest: Normal breath sounds, No accessory muscle use Cardiovascular: Irregularly irregular, + murmur Abdomen/GI:Soft, Non tender, Bowel sounds present Extremities/Musculoskeletal:normal inspection, 1 + B/L LE edema Neurologic/Psych:AAOX3, grossly no focal neurological deficits Skin: normal color, warm Results & Data Results & Data Vital Signs (Past 12 Hours) Vital Signs Temp Pulse Pulse Resp BP Pulse Ox O2 Del Method 06/09/23 11:00 36.6 C 83 16 97/67 L 97 Nasal Cannula 06/09/23 10:16 78 06/09/23 10:13 Nasal Cannula 06/09/23 08:00 36.5 C 73 18 119/64 95 Room Air 06/09/23 03:23 36.8 C 82 20 123/79 94 Nasal Cannula 06/09/23 00:04 36.6 C 86 16 117/56 L 94 Nasal Cannula O2 Flow Rate 06/09/23 11:00 2 06/09/23 10:16 06/09/23 10:13 2 06/09/23 08:00 06/09/23 03:23 2 06/09/23 00:04 1.5 Laboratory Results Laboratory Results WBC 6.27 K/ul (4.8-10.8) 06/07/23 06:33 RBC 2.98 M/uL (4.20-5.40) L 06/07/23 06:33 Hgb 10.2 g/dl (12.0-16.0) L 06/07/23 06:33 Hct 32.8 % (37.0-47.0) L 06/07/23 06:33 MCV 110.1 fL (80.0-100.0) H 06/07/23 06:33 MCH 34.2 pg (25.0-34.0) H 06/07/23 06:33 MCHC 31.1 g/dL (32.0-36.0) L 06/07/23 06:33 RDW Std Deviation 60.9 fL (36.4-46.3) H 06/07/23 06:33 RDW Coeff of Ge 15.4 % (11.5-14.5) H 06/07/23 06:33 Plt Count 246 K/uL (130-400) 06/07/23 06:33 MPV 11.8 fL (9.4-12.4) 06/07/23 06:33 Immature Gran % (Auto) 0.3 % 06/05/23 05:42 Neut % (Auto) 79.8 % 06/05/23 05:42 Lymph % (Auto) 6.8 % 06/05/23 05:42 [place] % (Auto) 9.4 % 06/05/23 05:42 Eos % (Auto) 2.9 % 06/05/23 05:42 Baso % (Auto) 0.8 % 06/05/23 05:42 Neut # (Auto) 6.27 K/uL (1.40-6.50) 06/05/23 05:42 Lymph # (Auto) 0.53 K/uL (1.2-3.4) L 06/05/23 05:42 [place] # (Auto) 0.74 K/uL (0.11-0.59) H 06/05/23 05:42 Eos # (Auto) 0.23 K/uL (0-0.50) 06/05/23 05:42 Baso # (Auto) 0.06 K/uL (0-0.2) 06/05/23 05:42 Immature Gran # (Auto) 0.02 K/uL (0.01-0.20) 06/05/23 05:42 PT 21.6 Seconds (9.0-12.0) H 06/09/23 06:14 INR 2.1 (0.9-1.1) H 06/09/23 06:14 APTT 32.8 Seconds (21.0-31.0) H 06/07/23 06:33 PTT Ratio 1.2 06/07/23 06:33 Sodium 142 mmol/L (136-145) 06/09/23 06:14 Potassium 4.4 mmol/L (3.5-5.1) 06/09/23 06:14 Chloride 97 mmol/L (98-107) L 06/09/23 06:14 Carbon Dioxide 37 mmol/L (21-32) H 06/09/23 06:14 Anion Gap 8 (3-11) 06/09/23 06:14 BUN 45 mg/dl (6-23) H 06/09/23 06:14 Creatinine 2.20 mg/dl (0.6-1.2) H D 06/09/23 06:14 Est Cr Clr Drug Dosing 15.5 ml/min 06/09/23 06:14 Est GFR ( Amer) 22.6 ml/min 06/09/23 06:14 Est GFR (Non-Af Amer) 19.5 ml/min 06/09/23 06:14 BUN/Creatinine Ratio 20.5 (10-20) H 06/09/23 06:14 Glucose 116 mg/dl (70-99(Fasting)) H 06/09/23 06:14 POC Glucose 122 mg/dl (70-99) H 06/05/23 11:17 Estimat Average Glucose 131 mg/dl 06/06/23 04:03 Hemoglobin A1c 6.2 % (4.5-5.6) H 06/06/23 04:03 Calcium 10.7 mg/dl (8.6-10.3) H 06/09/23 06:14 Magnesium 2.0 mg/dl (1.7-2.4) 06/06/23 14:35 Iron 35 mcg/dl (35-150) 06/07/23 06:33 Transferrin 210 mg/dl (200-360) 06/07/23 06:33 Ferritin 54.6 ng/ml (8-388) 06/07/23 06:33 Total Bilirubin 0.9 mg/dl (0.2-1.0) 06/04/23 19:48 AST 26 U/L (13-39) 06/04/23 19:48 ALT 13 U/L (7-52) 06/04/23 19:48 Alkaline Phosphatase 72 U/L (34-104) 06/04/23 19:48 Troponin I High Sens 31.7 pg/ml (0-14) H 06/05/23 05:42 Total Protein 7.6 gm/dl (6.0-8.3) 06/04/23 19:48 Albumin 4.1 gm/dl (3.4-5.0) 06/04/23 19:48 Globulin 3.5 gm/dl (2.5-4.0) 06/04/23 19:48 Albumin/Globulin Ratio 1.2 (0.9-2) 06/04/23 19:48 Lipase 63 U/L (11-82) 06/04/23 19:48 Vitamin B12 395 pg/ml (180-914) 06/07/23 06:33 Folate 19.85 ng/ml (>5.38) 06/07/23 06:33 Urine Color Yellow 06/05/23 04:08 Urine Appearance Turbid (Clear) A 06/05/23 04:08 Urine pH 6.0 (4.5-7.5) 06/05/23 04:08 Ur Specific [place] 1.009 (1.000-1.030) 06/05/23 04:08 Urine Protein 1+ (Negative) H 06/05/23 04:08 Urine Glucose (UA) Negative (Negative) 06/05/23 04:08 Urine Ketones Negative (Negative) 06/05/23 04:08 Urine Blood 2+ (Negative) H 06/05/23 04:08 Urine Nitrite Negative (Negative) 06/05/23 04:08 Urine Bilirubin Negative (Negative) 06/05/23 04:08 Urine Urobilinogen Negative (Negative) 06/05/23 04:08 Ur Leukocyte Esterase 3+ (Negative) H 06/05/23 04:08 Urine WBC (Auto) >30 /hpf (0-5) H 06/05/23 04:08 Urine RBC (Auto) 5-10 /hpf (0-4) H 06/05/23 04:08 U Hyaline Cast (Auto) 1-5 /lpf (0-5) 06/05/23 04:08 U Epithel Cells (Auto) 5-10 /lpf (0-5) H 06/05/23 04:08 Urine Bacteria (Auto) 2+ (Negative) H 06/05/23 04:08 Urine Yeast Not Reportable 06/05/23 04:08 Stool Occult Bld Scrn Negative (Negative) 06/06/23 13:40 Impressions Chest X-Ray 06/07/23 13:04 XR chest 1V portable HISTORY: Follow up on previous cxr. ? pul edema COMPARISON: Chest 06/04/2023. FINDINGS: No pneumothorax. The cardiac silhouette remains enlarged. There is a small right pleural effusion and a right basilar linear densities suggesting subsegmental atelectasis. There is elevation the right hemidiaphragm again noted. The pulmonary vasculature congestion has improved/resolved. The left lung is clear. Poststernotomy changes and an aortic valve prosthesis are again noted. Degenerative changes within the shoulders. A left-sided pacemaker is again noted. IMPRESSION: 1. The pulmonary vascular congestion has improved/resolved. 2. A small right pleural effusion and right basilar density remains unchanged. This favors subsegmental atelectasis. 3. Stable cardiomegaly. ACT 112: Negative or not required by law. Electronically signed by: Oliver Valdovinos M.D. 06/07/2023 1:50 PM
[2023-06-09] MEDS: WARFARIN SOD 2.5 MG TAB PO SCH (16:32)
[2023-06-09] MEDS: ROSUVASTATIN CALCIUM 20 MG TAB PO SCH (19:49)
[2023-06-09] MEDS: busPIRone 5 MG TAB PO PRN (21:06)
[2023-06-10 07:37] LABS: BUN Creatinine Ratio 23.1 (10-20); Calcium 10.7 mg/dl (8.6-10.3); Creatinine Clr Calc Pharmacy 16.2 ml/min; Est GFR (African American) 23.1 ml/min; Est GFR (Non-African American) 19.9 ml/min
[2023-06-10 07:58] LABS: INR 2.5 (0.9-1.1); Prothrombin Time 25.6 Seconds (9.0-12.0)
[2023-06-10] MEDS: CLOPIDOGREL BISULFATE 75 MG TAB PO SCH (09:24)
[2023-06-10] MEDS: METOPROLOL SUCC 50MG EXT REL TAB PO SCH (09:24)
[2023-06-10] MEDS: ISOSORBIDE MONO EXTENDED REL 60 MG TABCR PO SCH (09:24)
[2023-06-10] MEDS: PANTOprazole 40 MG TAB PO SCH (09:25)
[2023-06-10] MEDS: FLUTICASONE PROPIONATE NA SPR 16 GM BTL SCH (09:25)
--- NOTE | 2023-06-10 11:04 | Cardiology Progress Note ---
Date of Service June 10, 2023 Assessment & Plan (1) Acute on chronic heart failure with reduced ejection fraction and diastolic dysfunction: (2) Coronary artery disease with angina pectoris: (3) Chronic atrial fibrillation: (4) Ischemic cardiomyopathy: Plan Patient appears compensated from a heart failure perspective. Hold torsemide until Monday. Repeat basic metabolic panel in the outpatient setting 06/13/2023. Recommend torsemide 20 mg daily in the outpatient setting. Continue Toprol-XL 100 mg twice daily, Imdur 60 mg daily, and Plavix 75 mg daily. Admission and Anticipated Discharge Date Admission Date: June 05, 2023 Subjective Patient seen examined the bedside. Fluid balance negative additional 1.6 L. Creatinine trending downward slightly. Feeling well today. No chest pain or shortness of breath. Telemetry reveals atrial fibrillation in the 70s. Review of Systems Review of Systems: All systems reviewed & are unremarkable except as noted in Subjective Physical Exam Physical Exam: PE: VSS. NAD, AAO x3. Heart: Irregular rhythm, normal S1-S2, 1/6 midsystolic murmur heard at the apex. Lungs: Clear bilateral, no rales, rhonchi, wheeze. Extremities: No edema. Results & Data Vital Signs (Past 12 Hours) Vital Signs Temp Pulse Pulse Resp BP BP Pulse Ox 06/10/23 09:46 78 06/10/23 07:02 36.6 C 69 17 100/64 97 06/10/23 03:37 36.6 C 80 16 110/52 L 97 06/09/23 23:40 36.8 C 82 16 102/52 L 98 O2 Del Method O2 Flow Rate 06/10/23 09:46 06/10/23 07:02 Nasal Cannula 1.5 06/10/23 03:37 Nasal Cannula 2 06/09/23 23:40 Nasal Cannula 2 Laboratory Results Coagulation 06/10/23 Range/Units 06:58 PT 25.6 H (9.0-12.0) Seconds Comprehensive Metabolic Panel 06/10/23 Range/Units 06:58 Sodium 142 (136-145) mmol/L Potassium 4.0 (3.5-5.1) mmol/L Chloride 95 L (98-107) mmol/L Carbon Dioxide 37 H (21-32) mmol/L BUN 50 H (6-23) mg/dl Creatinine 2.16 H (0.6-1.2) mg/dl Glucose 131 H (70-99(Fasting)) mg/dl Calcium 10.7 H (8.6-10.3) mg/dl Intake and Output 06/09/23 06/10/23 06/10/23 22:59 06:59 14:59 Output Total 1000 / 1400 200 / 200 Balance -1000 / -1400 -200 / -200 Output: Urine 1000 / 1400 200 / 200 Other: Weight 78.245 kg Weight Measurement Method Built in [facility]
--- NOTE | 2023-06-10 11:51 | Discharge Summary ---
Date of Service June 10, 2023 Admission HPI Per Admitting Provider History obtained from patient and records. Medical history significant for chronic systolic heart failure (EF 40-45%, TTE 2022), SSS sp PPM on Coumadin, CAD sp CABG/stenting, hx PVD, history of bovine AVR, valvular heart disease (moderate to severe MR/severe TR), pulmonary hypertension CVA, HTN, hyperlipidemia, mild GAVIN (CPAP intolerance as per records), DM2 diet- controlled, CRI (baseline creatinine 1.1), history urge incontinence, recurrent UTIs, hx ESBL UTI, chronic anemia (baseline hemoglobin 10-11 ), essential thrombocythemia on Hydrea, GERD, history of colonic diverticulosis/polyps, restless leg syndrome. Last confinement May 02 to 2022 for NSTEMI. Interventional cardiology recommended transfer to tertiary care for further invasive management if needed as per Cardiology consultation. Patient opted for medical management as per discharge note. Patient had embolic CVA during confinement. Patient aspirin changed to Plavix. Patient seen at the ER last May 18 for chest pain, shortness of breath and arm pain. Patient declined inpatient observation recommendation. Few days ago patient noted dysuria symptoms without fever, chills, flank pain. Outpatient urine CS grew ESBL E. coli. PCP recommended repeat UA collection. Last night, patient had pressure across her chest associated with clammy sensation. No shortness of breath, no cough. Discomfort relieved by nitroglycerin intake at home. Patient compliant with home meds, no unusual stress. Patient admits to fluid retention/weight gain if she misses dose of torsemide. MEDICAL HISTORY: As above. SURGICAL HISTORY: History of coronary artery bypass graft, Total abdominal hysterectomy, bilateral salpingo-oophorectomy, bladder/urethra surgery, PPM for sinus node dysfunction, knee surgery, BTL, bioprosthetic AVR FAMILY HISTORY: Hypertension. Diabetes. Stroke. PERSONAL/ SOCIAL HISTORY: Nonsmoker. No chronic intake of alcoholic beverage. She is a retired [employer] employee. Admission Exam Per Admitting Provider GENERAL: Pleasant, obese, no respiratory distress SKIN: Normal color, warm HEENT: pink palpebral conjunctivae, no ptosis, dry buccal mucosa NECK : Supple, short neck, no tenderness CHEST : Decreased breath sounds, no tenderness HEART : Irregular, systolic murmur ABDOMEN: Some distention, no overt tenderness EXTREMITIES : Minimal bilateral LE swelling, no LE tenderness, no other conspicuous deformities noted NEUROLOGIC : Coherent, no facial asymmetry, no other gross focality Principal Diagnosis NSTEMI Acute on chronic combined systolic and diastolic heart failure Discharge Exam Physical Exam: Vitals signs as noted above General Appearance:Moderately built and nourished, no apparent distress Head: normocephalic, Atraumatic Eyes: normal inspection, EOMI Neck: supple, Trachea midline Respiratory/Chest: Normal breath sounds, No accessory muscle use Cardiovascular: Irregularly irregular, + murmur Abdomen/GI:Soft, Non tender, Bowel sounds present Extremities/Musculoskeletal:normal inspection, 1 + B/L LE edema Neurologic/Psych:AAOX3, grossly no focal neurological deficits Skin: normal color, warm Discharge Data Allergies Allergy/AdvReac Type Severity Reaction Status Date / Time iodine Allergy Intermediate itching Verified 06/04/23 20:11 amiodarone Allergy Mild UNSURE Verified 06/04/23 20:11 etodolac Allergy Mild Unknown Verified 06/04/23 20:11 Sulfa (Sulfonamide Allergy Mild Unknown Verified 06/04/23 20:11 Antibiotics) lisinopril AdvReac Intermediate Swelling Verified 06/04/23 20:11 of Lip/Tongue/Throat gabapentin AdvReac Mild sedation Verified 06/04/23 20:11 Penicillins AdvReac Mild YEAST INF Verified 06/04/23 20:11 simvastatin AdvReac Unknown CAN'T Verified 06/04/23 20:11 REMEMBER Consultations 06/04/23 20:42 ED Decision to Admit Stat 06/05/23 02:50 Consult Cardiology Routine Hospital Course (1) Coronary artery disease with angina pectoris: (2) Acute on chronic heart failure with reduced ejection fraction and diastolic dysfunction: (3) NSTEMI (non-ST elevated myocardial infarction): Plan Patient is a 88-year-old female who presented with chest pain and elevated troponin. She has history of CAD status post CABG/stenting. Patient was admitted to telemetry floor for concern of NSTEMI and acute on chronic combined systolic and diastolic heart failure. She was started on heparin drip. Cardiology was consulted for comanagement. During the hospitalization, patient was placed on Lasix drip. Patient showed improvement with diuretics. Her creatinine up trended during the hospitalization; her losartan and Aldactone were held at discharge. Cardiology recommended torsemide 20 mg to be started daily. She was also started on Imdur 60 mg once a day. Patient was also treated with ertapenem for ESBL UTI for 3 days. PT OT evaluation was done; patient was recommended to go home with family support. Patient discharged home with instruction to follow-up with primary care doctor next week and repeat BMP. Patient will also follow-up with cardiology. Please note the above document was generated using voice recognition software. It may contain grammatical, syntax or spelling errors. Any formal questions or concerns about the content, text or information contained within the body of this dictation should be directly addressed to the provider for clarification Total Time Total Time Spent Total Time Spent (In Minutes): 45 Total Time Includes: Examination of the Patient, Discharge Planning, Medication Reconciliation, Communication With Other Providers and Other Discharge Plan Discharge Items Patient Disposition: Home - Self-Care Reason For Visit: ACS Discharge Diagnosis: Acute on chronic systolic and diastolic heart failure Condition on Discharge: Fair Activity: Resume your previous activity Non-emergency contact: Primary Care Provider Call non-emergency contact if: you have any medication questions and your symptoms worsen Follow-up/Referrals: Srini Doyle DO [Install And Repair Technician] - (The Cardiology office will contact you for a follow up appointment.) Yaya Frederick MD [Primary Care Provider] - (Date & Time 06/15/2023 10:20 AM Provider Srini Draper MD Department [facility] ) Diet: Regular Addtl Attending Provider Instructions: You were admitted to the hospital due to heart failure. Cardiology evaluated you during the hospitalization. They recommend following medication adjustment: 1) Take torsemide 20 mg daily starting Monday. 2) Stop taking losartan and spironolactone till you see your primary care doctor and repeat basic metabolic panel to make sure that your kidney function have improved. 3) You are prescribed Imdur 60 mg to be taken once daily. Please follow-up with your primary care doctor as scheduled. Cardiology will call you with appointment. Pending Studies at Discharge: No Stand-Alone Forms: My [employer], Smoking Cessation Medications and DC Order Prescriptions: New isosorbide mononitrate 60 mg Tablet Extended Release 24 Hr 60 mg PO QAM Qty: 30 0RF Continued hydroxyurea 500 mg capsule 500 mg PO UD Rx Instructions: 500mg po daily x 5 days a week clindamycin HCl 300 mg Capsule 600 mg PO DIRECTED Rx Instructions: Take 1 hr prior to dental apt. warfarin 2.5 mg tablet 1.25 mg PO .6DAYWEEK Rx Instructions: takes 0 mg on mon. fexofenadine [Lizzette Allergy] 180 mg Tablet 180 mg PO DAILY PRN (Reason: allergies) pantoprazole 40 mg tablet,delayed release (DR/EC) 40 mg PO QAM diphenhydramine HCl [Benadryl Allergy] 25 mg Tablet 25 mg PO Q4 PRN (Reason: allergies) nitroglycerin [Nitrostat] 0.4 mg Tablet, Sublingual 0.4 mg sublingual DIRECTED PRN (Reason: Chest Pain) mometasone 50 mcg/actuation spray,non-aerosol 2 spray INTRANASAL QAM ipratropium bromide 21 mcg (0.03 %) spray,non-aerosol 2 spray INTRANASAL BID PRN (Reason: .rhinitis) calcium carbonate-vitamin D3 [Caltrate with Vitamin D3] 600 mg-20 mcg (800 unit) Tablet 1 tab PO DAILY Rx Instructions: has 400 units d magnesium oxide 400 mg magnesium Tablet 400 mg PO DAILY clopidogrel 75 mg Tablet 75 mg PO QAM Qty: 30 1RF metoprolol succinate 100 mg tablet extended release 24 hr 100 mg PO AMHS Qty: 60 0RF Rx Instructions: Needs to take tonight rosuvastatin 10 mg tablet 20 mg PO QPM Qty: 60 0RF Rx Instructions: needs to take tonight buspirone 5 mg tablet 5 mg PO BID PRN (Reason: Anxiety) azelastine 137 mcg (0.1 %) Aerosol,[place] 1 spray INTRANASAL BID PRN (Reason: allergies) Rx Instructions: administer into each nostril Align 4 mg Capsule 8 mg PO DAILY Changed torsemide 20 mg tablet 20 mg PO DAILY Qty: 30 0RF Rx Instructions: On Monday, Monday and Monday only (3 times per week) Held losartan 25 mg Tablet 12.5 mg PO QAM Qty: 30 0RF Hold Instructions: Till you see your primary care doctor and repeat basic metabolic panel. spironolactone 25 mg Tablet 12.5 mg PO UD Qty: 30 0RF Hold Instructions: Till you see your primary care doctor and repeat basic metabolic panel. Rx Instructions: On Monday, Monday, Monday only (3 times per week) Discharge Orders: Discharge Order (Routine); Ordered 06/10/23 Ordered By: Brigido Lockwood/Other Patient Handouts: A1C Admission Data Admit Date/Time: 06/05/23 00:31 Attending Provider: Brigido Hinson Admit Provider: Josh Richey Primary Care Provider: Yaya Frederick Other Providers: Josh Richey ; Pradeep Macedo ; [place] ; Josue Avalos
--- NOTE | 2023-06-11 13:09 | Coding Query ---
To promote full compliance with coding requirements relating to patient care, provider participation is requested in all cases of recycling director uncertainty. Please assist us with the question(s) below: Coding Question(s): The diagnosis below was documented in the (H&P, progress notes and discharge summary) but cardiology documents recurring angina/troponin elevation in the setting of acute on chronic combined CHF. Please indicate if it is still a possible diagnosis or ruled out. Physician's Response(s): NSTEMI ( X ) Diagnosed and POA ( ) Diagnosed and not POA ( ) Ruled out ( ) Other (please specify) MTDD
== END 2023-06-10 14:09 | disposition home health service (06) | DRG 280 ==
LOC: ED 18:17 → 2E 06-05 00:31 → SUATTDRO 06-05 00:31 → 2E 06-05 02:36

== ENCOUNTER 2023-09-12 14:47 | Inpatient (IN) ==
--- NOTE | 2023-09-12 15:08 | XRay Report ---
XR chest 1V portable CLINICAL HISTORY: Chest pain, nonspecific TECHNIQUE: Single frontal radiograph of the chest was obtained. Comparison: Comparison is made to chest radiograph of 06/07/2023 FINDINGS: Median sternotomy wires are unchanged. Stable dual lead pacemaker. Cardiomegaly is noted. The aortic arch is calcified. Right lower lung atelectasis. No evidence of pleural effusion or pneumothorax. IMPRESSION: Right lower lung atelectasis is seen. No acute abnormalities. ACT 112: Negative or not required by law. Electronically signed by: Pablo Garza M.D. 09/12/2023 3:07 PM
--- NOTE | 2023-09-12 15:23 | Emergency Department Note ---
Impression & Plan Shortness of breath, CHF (congestive heart failure), CKD (chronic kidney disease) ED Provider Note NAME: SARAH HOLMAN AGE: 88 SEX: F : 1935 ARRIVES VIA: Ambulance INFORMANT: Patient ED PROVIDER(S): Branden Fuentes DO CHIEF COMPLAINT: Shortness of breath HPI: Patient is an 88-year-old female who presents to the ER for shortness of breath with a past medical history of CHF, pacemaker in place, TAVR on Coumadin for A-fib who presents to the ER for worsening shortness of breath over the past 2 weeks including swelling of her lower extremities. She notes that shortness of breath is not significantly as bad when she lays flat but rather when she is up moving around. She denies any chest pain, belly pain, nausea, vomiting, or diarrhea. No dysuria, urgency, or frequency. No other exacerbating or remitting factors. She was seen by her PCP and referred in as they are concerned with diuresing her with her creatinine function. She admits that she was chronically on 2 L and they increase this over the last 2 to 3 weeks to 3 L. ADDITIONAL HISTORY OBTAINED: Per HPI Chronic Medical/Social Conditions Affecting Care: Per HPI PAST MEDICAL HISTORY:See Below PAST SURGICAL HISTORY:See Below FAMILY HISTORY:See Below SOCIAL HISTORY:See Below HOME MEDICATIONS:See Below ALLERGIES:See Below VITALS:See Below PHYSICAL EXAMINATION: GENERAL: Sitting up in bed, alert, well appearing, well nourished, no distress, non-toxic EYE EXAM: normal conjunctiva. OROPHARYNX: no exudate, no erythema, lips, buccal mucosa, and tongue normal and mucous membranes are moist NECK: supple, no nuchal rigidity, no adenopathy, non-tender, +JVD LUNGS: Diminished at bilateral bases. Normal chest wall mechanics HEART: no murmurs, S1 normal and S2 normal ABDOMEN: abdomen soft, non-tender, normo-active bowel sounds, no masses, no rebound or guarding. UPPER EXTREMITIES: upper extremities are grossly normal. LOWER EXTREMITIES: Pitting edema in the bilateral lower extremity NEURO EXAM: Normal sensorium, cranial nerves II-XII grossly intact, normal speech, no gross weakness of arms, no gross weakness of legs. MEDICAL DECISION MAKING: Patient is an 88-year-old female with past medical history of chronic respiratory failure, CHF, ischemic cardiomyopathy for shortness of breath and increased swelling of the legs for the past 2 weeks. Family has been titrating up on her oxygen from 2 L to 3 L. He was established with obtained. Labs show no significant leukocytosis. Mild anemia 11.6. INR 2.5. BMP with creatinine 2.05 fairly consistent with previous. LFTs bilirubin was unremarkable. Troponin was elevated. BNP was elevated at 500. Lipase was normal. Positive JVD and pitting edema in her presentation consistent with CHF. She was given IV Lasix. Updated at bedside. Discussed with the hospitalist for further evaluation management treatment External Records Reviewed: Admission from 06/[address] Barraza for CHF Consults/Care Managements Discussions: Per [facility] Triage Nursing notes reviewed. Limited review of prior medical records performed Vital Signs: reviewed and remarkable for no significant abnormalities Differential diagnosis: Differential diagnoses includes but is not limited to pneumonia, bronchitis, COPD/Asthma exacerbation, pneumothorax, pulmonary embolism, congestive heart failure, acute coronary syndrome ER treatment provided: See below Diagnostics interpreted by me include EKG and cardiac monitoring as listed below: -Cardiac Monitoring: An order was placed for continuous cardiac monitoring. The monitor shows a rate of 80 with sinus rhythm. -ECG: Sinus rhythm rate 78 Left axis Right bundle branch block QTc 465 -Laboratory studies:Interpreted by me as stated above in MDM and shown below. Imaging studies: Xrays: As interpreted by me: Portable AP upright 1 view of the chest shows no focal CTs show: none Procedures:none Critical Care: None Past Med/Surg History Medical History (Updated 09/12/23 @ 21:28 by Branden Fuentes DO) Coronary artery disease with angina pectoris CKD (chronic kidney disease), stage III Chronic diastolic CHF (congestive heart failure) Cardiac pacemaker in situ Sinus node dysfunction ASCVD (arteriosclerotic cardiovascular disease) 2006 - CABG x 3, bioproesthetic aortic valve replacement 2007 - PCI and stenting to SVG to RCA occlusion Atrial fibrillation, persistent 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 Tinnitus of left ear Sensorineural hearing loss of both ears HLD (hyperlipidemia) HTN (hypertension) Essential thrombocythemia CKD (chronic kidney disease) stage 2, GFR 60-89 ml/min UTI due to extended-spectrum beta lactamase (ESBL) producing Escherichia coli Generalized weakness Anemia 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) [place]placement of [place]Unknown[place] [place] " Dermatitis Carotid artery occlusion (Unknown) Surgical History Status post transcatheter aortic valve replacement (TAVR) using bioprosthesis History of colonoscopy with polypectomy History of cystoscopy History of tubal ligation Total abdominal hysterectomy with bilateral salpingo-oophorectomy (Unknown) Stented coronary artery (Unknown) Placement of stent in coronary artery (Unknown) "RCA December 2006 " Implantation of aortic valve prosthesis or synthetic device (Unknown) Coronary artery bypass grafting (Unknown) [place] [place] VARGHESE to LAD SVG's to diagonal, obtuse marginal, RCA " Family History Father Prostate cancer Mother Diabetes Sister Coronary heart disease Social History Smoking Status: Never smoker Second Hand Exposure: No; Do You Dip or Chew Tobacco: No; Hx Alcohol Use: No Hx Substance Use: No Preferred Language: Polish Communication Ability: Effective Visual Impairment: No Limitations Hearing Ability: Normal Testing Shaking Shipping Required: No Beliefs That Will Affect Care: None marital status: / Current Living Situation: Alone Feels Safe at Home: Yes Assistive Devices: Oxygen - Continuous Allergies Allergies Allergy/AdvReac Type Severity Reaction Status Date / Time amiodarone Allergy Severe EDEMA Verified 09/12/23 16:05 FACE/LIPS/TONGUE, RASH azithromycin [From Zithromax] Allergy Severe THROAT Verified 09/12/23 16:05 SWELLED, DENIED SHORT OF BREATH. adhesive Allergy Intermediate Rash Verified 09/12/23 16:05 etodolac Allergy Intermediate PRURITIS-IO Verified 09/12/23 16:05 DINE iodine Allergy Intermediate itching Verified 09/12/23 16:05 Penicillins Allergy Intermediate ITCHY RASH Verified 09/12/23 16:05 Sulfa (Sulfonamide Allergy Intermediate Rash Verified 09/12/23 16:05 Antibiotics) cephalexin [From Keflex] Allergy Unknown PER Verified 09/12/23 16:05 [facility] [place]--TRUE REACTION TO KEFLEX gabapentin AdvReac Intermediate sedation Verified 09/12/23 16:05 lisinopril AdvReac Intermediate Swelling Verified 09/12/23 16:05 of Lip/Tongue/Throat simvastatin AdvReac Unknown CAN'T Verified 09/12/23 16:05 REMEMBER Home Meds Home Medications Medication Instructions Recorded Confirmed diphenhydramine HCl 25 mg tablet 25 mg PO Q4 PRN allergies 01/29/23 09/12/23 (Benadryl Allergy) fexofenadine 180 mg tablet 180 mg PO DAILY PRN allergies 01/29/23 09/12/23 (Lizzette Allergy) hydroxyurea 500 mg capsule 500 mg PO 5XWK 01/29/23 09/12/23 ipratropium bromide 21 mcg (0.03 2 spray intranasal BID PRN RHINITIS 01/29/23 09/12/23 %) nasal spray mometasone 50 mcg/actuation nasal 2 spray intranasal QAM 01/29/23 09/12/23 spray nitroglycerin 0.4 mg sublingual 0.4 mg sublingual DIRECTED PRN 01/29/23 09/12/23 tablet (Nitrostat) Chest Pain warfarin 2.5 mg tablet 2.5 mg PO WE@0900 01/29/23 09/12/23 azelastine 137 mcg (0.1 %) nasal 1 spray intranasal BID PRN 05/18/23 09/12/23 spray aerosol allergies buspirone 5 mg tablet 5 mg PO BID PRN Anxiety 05/18/23 09/12/23 Lactobacil.acidophilus-Bifido.animalis 1 cap PO DAILY 09/12/23 09/12/23 5 billion cell sprinkle capsule (Probiotic) famotidine 20 mg tablet 20 mg PO DAILY 09/12/23 09/12/23 metoprolol succinate 100 mg 100 mg PO BID 09/12/23 09/12/23 tablet,extended release 24 hr rosuvastatin 20 mg tablet 20 mg PO QPM 09/12/23 09/12/23 warfarin 2.5 mg tablet 1.25 mg PO SUMOTUTHFRSA@0900 09/12/23 09/12/23 Previous Rx's Medication Instructions Recorded clopidogrel 75 mg tablet 75 mg PO QAM #30 tabs 05/09/23 losartan 25 mg tablet 12.5 mg (1/2 x 25 mg) PO QAM #30 05/09/23 tabs isosorbide mononitrate 60 mg 60 mg PO QAM #30 tabs 06/10/23 tablet,extended release 24 hr torsemide 20 mg tablet 20 mg PO DAILY #30 tabs 06/10/23 Results & Data (ED) Vital Signs Vital Signs - 24 hr 09/12/23 14:49 09/12/23 14:56 09/12/23 14:59 Temperature 36.6 C Temperature Source Oral Pulse Rate 76 82 Pulse Rate [Apical] Pulse Rhythm Regular Pulse Strength Normal Respiratory Rate 18 Respiratory Effort / Characteristics Non-Labored Respiratory Depth Normal Respiratory Pattern Regular Blood Pressure 131/88 Blood Pressure [Right Arm] Blood Pressure Mean 102 Blood Pressure Mean [Right Arm] Pulse Oximetry 100 100 Oxygen Delivery Method Nasal Cannula Nasal Cannula Oxygen Flow Rate 3 3 Sepsis Recent Fever Within 48 Hours No Sepsis New/Unexplained Change in Mental Status No Sepsis Action Taken by Nursing No Action Required 09/12/23 15:17 09/12/23 15:17 09/12/23 16:49 Temperature Temperature Source Pulse Rate Pulse Rate [Apical] 73 Pulse Rhythm Pulse Strength Respiratory Rate 13 Respiratory Effort / Characteristics Non-Labored Spontaneous Non-Labored Spontaneous Respiratory Depth Normal Normal Respiratory Pattern Regular Regular Blood Pressure Blood Pressure [Right Arm] 133/90 Blood Pressure Mean Blood Pressure Mean [Right Arm] 104 Pulse Oximetry 100 Oxygen Delivery Method Room Air Nasal Cannula Nasal Cannula Oxygen Flow Rate 3 3 Sepsis Recent Fever Within 48 Hours Sepsis New/Unexplained Change in Mental Status Sepsis Action Taken by Nursing 09/12/23 18:29 09/12/23 20:02 Temperature Temperature Source Pulse Rate 67 Pulse Rate [Apical] 82 Pulse Rhythm Pulse Strength Respiratory Rate 24 Respiratory Effort / Characteristics Non-Labored Respiratory Depth Normal Respiratory Pattern Blood Pressure Blood Pressure [Right Arm] 118/94 Blood Pressure Mean Blood Pressure Mean [Right Arm] 102 Pulse Oximetry 100 Oxygen Delivery Method Nasal Cannula Oxygen Flow Rate 3 Sepsis Recent Fever Within 48 Hours Sepsis New/Unexplained Change in Mental Status Sepsis Action Taken by Nursing Laboratory Data 09/12/23 16:57 09/12/23 16:57 Lab Results 09/12/23 09/12/23 Range/Units 16:57 20:15 WBC 6.98 (4.8-10.8) K/ul RBC 3.43 L (4.20-5.40) M/uL Hgb 11.6 L (12.0-16.0) g/dl Hct 37.3 (37.0-47.0) % MCV 108.7 H (80.0-100.0) fL MCH 33.8 (25.0-34.0) pg MCHC 31.1 L (32.0-36.0) g/dL RDW Std Deviation 66.7 H (36.4-46.3) fL RDW Coeff of Ge 16.7 H (11.5-14.5) % Plt Count 256 (130-400) K/uL MPV 11.4 (9.4-12.4) fL Immature Gran % (Auto) 0.6 % Neut % (Auto) 73.2 % Lymph % (Auto) 9.6 % [place] % (Auto) 13.0 % Eos % (Auto) 2.7 % Baso % (Auto) 0.9 % Neut # (Auto) 5.11 (1.40-6.50) K/uL Lymph # (Auto) 0.67 L (1.20-3.40) K/uL [place] # (Auto) 0.91 H (0.11-0.59) K/uL Eos # (Auto) 0.19 (0.00-0.50) K/uL Baso # (Auto) 0.06 (0.00-0.20) K/uL Immature Gran # (Auto) 0.04 (0.01-0.20) K/uL PT 25.8 H (9.0-12.0) Seconds INR 2.5 H (0.9-1.1) Sodium 142 (136-145) mmol/L Potassium 3.6 (3.5-5.1) mmol/L Chloride 100 (98-107) mmol/L Carbon Dioxide 33 H (21-32) mmol/L Anion Gap 9 (3-11) BUN 43 H (6-23) mg/dl Creatinine 2.05 H (0.6-1.2) mg/dl Est Cr Clr Drug Dosing 18.4 ml/min Est GFR ( Amer) 24.6 ml/min Est GFR (Non-Af Amer) 21.3 ml/min BUN/Creatinine Ratio 21.0 H (10-20) Glucose 98 (70-99(Fasting)) mg/dl Calcium 10.1 (8.6-10.3) mg/dl Total Bilirubin 1.1 H (0.2-1.0) mg/dl AST 30 (13-39) U/L ALT 13 (7-52) U/L Alkaline Phosphatase 114 H (34-104) U/L Troponin I High Sens 24.3 H 25.5 H (0-14) pg/ml B-Natriuretic Peptide 490 H (0-100) pg/ml Total Protein 7.6 (6.0-8.3) gm/dl Albumin 4.0 (3.4-5.0) gm/dl Globulin 3.6 (2.5-4.0) gm/dl Albumin/Globulin Ratio 1.1 (0.9-2) Lipase 74 (11-82) U/L Administered Medications Discontinued Medications Furosemide (Furosemide 40 Mg/4 Ml Vial) 40 mg IV ONE ONE Stop: 09/12/23 18:25 Last Admin: 09/12/23 18:31 Dose: 40 mg Documented By: NRB Imaging Data Radiologist's Impression: Chest X-Ray 09/12/23 14:49 XR chest 1V portable CLINICAL HISTORY: Chest pain, nonspecific TECHNIQUE: Single frontal radiograph of the chest was obtained. Comparison: Comparison is made to chest radiograph of 06/07/2023 FINDINGS: Median sternotomy wires are unchanged. Stable dual lead pacemaker. Cardiomegaly is noted. The aortic arch is calcified. Right lower lung atelectasis. No evidence of pleural effusion or pneumothorax. IMPRESSION: Right lower lung atelectasis is seen. No acute abnormalities. ACT 112: Negative or not required by law. Electronically signed by: Pablo Garza M.D. 09/12/2023 3:07 PM Discharge Plan Visit Data Chief Complaint: Shortness of Breath/Dyspnea Stated Complaint: SOB ED Provider: Branden Fuentes ED Midlevel Provider: Viviana Cross Discharge Problem: Shortness of breath, CHF (congestive heart failure), CKD (chronic kidney disease) Forms Stand Alone Forms: My [facility] [place] Prescriptions Prescriptions: No Action hydroxyurea 500 mg capsule 500 mg PO 5XWK Rx Instructions: TAKES MONDAY THROUGH MONDAY warfarin 2.5 mg tablet 2.5 mg PO WE@0900 fexofenadine [Lizzette Allergy] 180 mg Tablet 180 mg PO DAILY PRN (Reason: allergies) diphenhydramine HCl [Benadryl Allergy] 25 mg Tablet 25 mg PO Q4 PRN (Reason: allergies) nitroglycerin [Nitrostat] 0.4 mg Tablet, Sublingual 0.4 mg sublingual DIRECTED PRN (Reason: Chest Pain) mometasone 50 mcg/actuation spray,non-aerosol 2 spray INTRANASAL QAM ipratropium bromide 21 mcg (0.03 %) spray,non-aerosol 2 spray INTRANASAL BID PRN (Reason: RHINITIS) isosorbide mononitrate 60 mg Tablet Extended Release 24 Hr 60 mg PO QAM Qty: 30 0RF torsemide 20 mg tablet 20 mg PO DAILY Qty: 30 0RF famotidine 20 mg Tablet 20 mg PO DAILY rosuvastatin 20 mg tablet 20 mg PO QPM Probiotic 5 billion cell Capsule, Sprinkle 1 cap PO DAILY metoprolol succinate 100 mg tablet extended release 24 hr 100 mg PO BID warfarin 2.5 mg tablet 1.25 mg PO SUMOTUTHFRSA@0900 clopidogrel 75 mg Tablet 75 mg PO QAM Qty: 30 1RF losartan 25 mg Tablet 12.5 mg PO QAM Qty: 30 0RF Hold Instructions: Till you see your primary care doctor and repeat basic metabolic panel. buspirone 5 mg tablet 5 mg PO BID PRN (Reason: Anxiety) azelastine 137 mcg (0.1 %) Aerosol,[place] 1 spray INTRANASAL BID PRN (Reason: allergies) Rx Instructions: administer into each nostril Referrals Referrals: Yaya Frederick MD [Primary Care Provider] - Discharge Problem: CHF (congestive heart failure) Qualifiers: Heart failure type: unspecified Heart failure chronicity: acute Qualified Code(s): I50.9 - Heart failure, unspecified CKD (chronic kidney disease) Qualifiers: Chronic kidney disease stage: unspecified stage Qualified Code(s): N18.9 - Chronic kidney disease, unspecified
--- NOTE | 2023-09-12 15:24 | Emergency Department Note ---
ED Visit Note I personally performed a history and examined the patient in conjunction with Dr. Fuentes. Additional information regarding the history, physical, assessment, and plan were discussed with supervising attending physician and are noted in their ED visit note. . Resident Activity Tracking Resident Involvement: Resident Care Provided Care Provided: Adult ED
[2023-09-12 17:21] LABS: Basophils # (auto) 0.06 K/uL (0.00-0.20); Basophils % (auto) 0.9 %; Eosinophils # (auto) 0.19 K/uL (0.00-0.50); Eosinophils % (auto) 2.7 %; Hematocrit (blood only) 37.3 % (37.0-47.0); Hemoglobin 11.6 g/dl (12.0-16.0); Immature Granulocytes # (auto) 0.04 K/uL (0.01-0.20); Immature Granulocytes % (auto) 0.6 %; Lymphocytes # (auto) 0.67 K/uL (1.20-3.40); Lymphocytes % (auto) 9.6 %; Mean Corpuscular Hemoglobin 33.8 pg (25.0-34.0); Mean Corpuscular Hgb Conc 31.1 g/dL (32.0-36.0); Mean Corpuscular Volume 108.7 fL (80.0-100.0); Mean Platelet Volume 11.4 fL (9.4-12.4); Monocytes # (auto) 0.91 K/uL (0.11-0.59); Neutrophils # (auto) 5.11 K/uL (1.40-6.50); Neutrophils % (auto) 73.2 %; Platelet Count 256 K/uL (130-400); RDW Coefficient of Variation 16.7 % (11.5-14.5); RDW Standard Deviation 66.7 fL (36.4-46.3); Red Blood Count 3.43 M/uL (4.20-5.40); White Blood Count 6.98 K/ul (4.8-10.8)
[2023-09-12 17:41] LABS: Albumin Globulin Ratio 1.1 (0.9-2); Bilirubin,Total 1.1 mg/dl (0.2-1.0); Calcium 10.1 mg/dl (8.6-10.3); Creatinine Clr Calc Pharmacy 18.4 ml/min; Est GFR (African American) 24.6 ml/min; Est GFR (Non-African American) 21.3 ml/min; Globulin 3.6 gm/dl (2.5-4.0); Potassium 3.6 mmol/L (3.5-5.1); Total Protein 7.6 gm/dl (6.0-8.3)
[2023-09-12 17:46] LABS: Troponin I High Sensitivity 24.3 pg/ml (0-14)
[2023-09-12 17:49] LABS: INR 2.5 (0.9-1.1); Prothrombin Time 25.8 Seconds (9.0-12.0)
[2023-09-12] MEDS ORDERED: FUROSEMIDE 40 MG/4 ML VIAL IV ONE (18:24)
--- NOTE | 2023-09-12 18:35 | History & Physical Report ---
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 HFimpEF S/p AVR, Valvular heart disease H/o pulmonary hypertension Presenting with increased dyspnea on exertion and edema x 2 weeks Currently on 20mg Torsemide at home, follows with Dr. Raphael and DAVID Calvo H/o ischemic cardiomyopathy but 2D echo from February 2023 with preserved EF 55-59%, AV bioprosthesis present, mod MR, mod-severe tricuspid regurg, compared to previous shows slight increase in pulm pressure of 45mmhg Appears clinically volume overloaded, BNP 490 Given 40 mg IV Lasix in ED, monitor diuresis overnight Routine cardiology consult, repeat 2D echo Low sodium diet, I&Os, daily weights H/O GAVIN Chronic hypoxic resp failure Intolerance to CPAP Chronic oxygen dependency Continue supplemental oxygen at 2L NC O2 Recurrent angina Coronary artery disease S/P CABG, Stents Chronic troponin elevation Chronic, stable. Continue Toprol, Crestor, Plavix, Imdur History of ESBL E coli UTI Asymptomatic currently so no need for UA Keep on contact precautions CKD III Cr 2.05 at baseline (Cr ~ high 1s-2) Monitor with daily BMP SSS s/p PPM Paroxysmal atrial fibrillation Continue Toprol, coumadin for 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. Currently coumadin dose 2.5mg Mon, 1.25mg all other days H/o CVA, PVD Continue Plavix, statin next DM II Diet controlled HbA1c 6.2 in May 2023 Essential thrombocythemia Continue Hydrea Daily CBC DVT Ppx: Coumadin Code status: FULL PCP: Yoly Dispo: Admitted to PCU Patient seen in collaboration with Dr. Andre. Please see addendum. History of Present Illness Chief Complaint: swelling Primary Care Provider: Yaya Frederick MD This is a 88yo F with a PMH of chronic hypoxic respiratory failure on 2L NC O2, HFrEF, dyslipidemia, pacemaker placement in Jul 2023, HTN, CAD (s/p TAMI 2006), paroxysmal atrial fibrillation and h/o AV replacement on coumadin, CKD III, RLS, essential thrombocythemia and other medical problems who was sent in from PCP's office for CHF exacerbation. Patient has noted more abdominal bloating and swelling in lower extremities over the past 2 weeks. Lately can only walk 8-10 ft right before she becomes short of breath and at baseline can walk closer to 30 ft. Denies any dyspnea at rest. Is on 2L NC O2 at baseline but has been pushing it up to 3 L lately. Denies any issues when lying flat, no waking up at night coughing or gasping for air. No F/C, CP, dysuria or diarrhea. Chronic constipation at baseline but has improved with increased fiber in her diet. Allergies Allergy/AdvReac Type Severity Reaction Status Date / Time amiodarone Allergy Severe EDEMA Verified 09/12/23 16:05 FACE/LIPS/TONGUE, RASH azithromycin [From Zithromax] Allergy Severe THROAT Verified 09/12/23 16:05 SWELLED, DENIED SHORT OF BREATH. adhesive Allergy Intermediate Rash Verified 09/12/23 16:05 etodolac Allergy Intermediate PRURITIS-IO Verified 09/12/23 16:05 DINE iodine Allergy Intermediate itching Verified 09/12/23 16:05 Penicillins Allergy Intermediate ITCHY RASH Verified 09/12/23 16:05 Sulfa (Sulfonamide Allergy Intermediate Rash Verified 09/12/23 16:05 Antibiotics) cephalexin [From Keflex] Allergy Unknown PER Verified 09/12/23 16:05 GMG--TRUE REACTION TO KEFLEX gabapentin AdvReac Intermediate sedation Verified 09/12/23 16:05 lisinopril AdvReac Intermediate Swelling Verified 09/12/23 16:05 of Lip/Tongue/Throat simvastatin AdvReac Unknown CAN'T Verified 09/12/23 16:05 REMEMBER Home Medications Medication Instructions Recorded Confirmed Type diphenhydramine HCl 25 mg tablet 25 mg PO Q4 PRN allergies 01/29/23 09/12/23 History (Benadryl Allergy) fexofenadine 180 mg tablet 180 mg PO DAILY PRN allergies 01/29/23 09/12/23 History (Lizzette Allergy) hydroxyurea 500 mg capsule 500 mg PO 5XWK 01/29/23 09/12/23 History ipratropium bromide 21 mcg (0.03 2 spray intranasal BID PRN RHINITIS 01/29/23 09/12/23 History %) nasal spray mometasone 50 mcg/actuation nasal 2 spray intranasal QAM 01/29/23 09/12/23 History spray nitroglycerin 0.4 mg sublingual 0.4 mg sublingual DIRECTED PRN 01/29/23 09/12/23 History tablet (Nitrostat) Chest Pain warfarin 2.5 mg tablet 2.5 mg PO WE@0900 01/29/23 09/12/23 History clopidogrel 75 mg tablet 75 mg PO QAM #30 tabs 05/09/23 09/12/23 Rx losartan 25 mg tablet 12.5 mg (1/2 x 25 mg) PO QAM #30 05/09/23 09/12/23 Rx tabs azelastine 137 mcg (0.1 %) nasal 1 spray intranasal BID PRN 05/18/23 09/12/23 History spray aerosol allergies buspirone 5 mg tablet 5 mg PO BID PRN Anxiety 05/18/23 09/12/23 History isosorbide mononitrate 60 mg 60 mg PO QAM #30 tabs 06/10/23 09/12/23 Rx tablet,extended release 24 hr torsemide 20 mg tablet 20 mg PO DAILY #30 tabs 06/10/23 09/12/23 Rx Lactobacil.acidophilus-Bifido.animalis 1 cap PO DAILY 09/12/23 09/12/23 History 5 billion cell sprinkle capsule (Probiotic) famotidine 20 mg tablet 20 mg PO DAILY 09/12/23 09/12/23 History metoprolol succinate 100 mg 100 mg PO BID 09/12/23 09/12/23 History tablet,extended release 24 hr rosuvastatin 20 mg tablet 20 mg PO QPM 09/12/23 09/12/23 History warfarin 2.5 mg tablet 1.25 mg PO MESSI@0900 09/12/23 09/12/23 History Past Med/Surg History Medical History (Updated 09/12/23 @ 21:33 by Kacie Andre, ) Coronary artery disease with angina pectoris CKD (chronic kidney disease), stage III Chronic diastolic CHF (congestive heart failure) Cardiac pacemaker in situ Sinus node dysfunction ASCVD (arteriosclerotic cardiovascular disease) 2006 - CABG x 3, bioproesthetic aortic valve replacement 2006 - PCI and stenting to SVG to RCA occlusion Atrial fibrillation, persistent Current use of senior care 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 Tinnitus of left ear Sensorineural hearing loss of both ears HLD (hyperlipidemia) HTN (hypertension) Essential thrombocythemia CKD (chronic kidney disease) stage 2, GFR 60-89 ml/min UTI due to extended-spectrum beta lactamase (ESBL) producing Escherichia coli Generalized weakness Anemia 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) Replacement of aortic valve (Unknown) [place] [place] " Dermatitis Carotid artery occlusion (Unknown) Surgical History Status post transcatheter aortic valve replacement (TAVR) using bioprosthesis History of colonoscopy with polypectomy History of cystoscopy History of tubal ligation Total abdominal hysterectomy with bilateral salpingo-oophorectomy (Unknown) Stented coronary artery (Unknown) Placement of stent in coronary artery (Unknown) "RCA December 2006 " Implantation of aortic valve prosthesis or synthetic device (Unknown) Coronary artery bypass grafting (Unknown) [place] [place] VARGHESE to LAD SVG's to diagonal, obtuse marginal, RCA " Family History Father Prostate cancer Mother Diabetes Sister Coronary heart disease Social History Smoking Status: Never smoker Second Hand Exposure: No; Do You Dip or Chew Tobacco: No; Hx Alcohol Use: No Hx Substance Use: No Preferred Language: Japanese Communication Ability: Effective Visual Impairment: No Limitations Hearing Ability: Normal Cloud Administrator Required: No Beliefs That Will Affect Care: None marital status: / Current Living Situation: Alone Feels Safe at Home: Yes Assistive Devices: Oxygen - Continuous Review of Systems Review of Systems: At least ten systems reviewed and negative except as noted in the HPI. Physical Exam Physical Exam: Please see Dr. Andre's addendum for physical exam. Results & Data Results & Data Vital Signs (Past 12 Hours) Vital Signs Temp Pulse Pulse Resp BP BP Pulse Ox 09/12/23 18:29 82 24 118/94 100 09/12/23 16:49 73 13 133/90 100 09/12/23 15:17 09/12/23 15:17 09/12/23 14:59 36.6 C 82 18 131/88 100 09/12/23 14:56 76 09/12/23 14:49 100 O2 Del Method O2 Flow Rate 09/12/23 18:29 Room Air 09/12/23 16:49 Nasal Cannula 3 09/12/23 15:17 Nasal Cannula 3 09/12/23 15:17 Room Air 09/12/23 14:59 Nasal Cannula 3 09/12/23 14:56 09/12/23 14:49 Nasal Cannula 3 Laboratory Results Short CBC 09/12/23 Range/Units 16:57 WBC 6.98 (4.8-10.8) K/ul Hgb 11.6 L (12.0-16.0) g/dl Hct 37.3 (37.0-47.0) % Plt Count 256 (130-400) K/uL BMP 09/12/23 16:57 Sodium 142 Potassium 3.6 Chloride 100 Carbon Dioxide 33 H BUN 43 H Creatinine 2.05 H Glucose 98 Calcium 10.1 Liver Function 09/12/23 Range/Units 16:57 Total Bilirubin 1.1 H (0.2-1.0) mg/dl AST 30 (13-39) U/L ALT 13 (7-52) U/L Alkaline Phosphatase 114 H (34-104) U/L Albumin 4.0 (3.4-5.0) gm/dl Diagnostic Findings Chest X-Ray 09/12/23 14:49 XR chest 1V portable CLINICAL HISTORY: Chest pain, nonspecific TECHNIQUE: Single frontal radiograph of the chest was obtained. Comparison: Comparison is made to chest radiograph of 06/07/2023 FINDINGS: Median sternotomy wires are unchanged. Stable dual lead pacemaker. Cardiomegaly is noted. The aortic arch is calcified. Right lower lung atelectasis. No evidence of pleural effusion or pneumothorax. IMPRESSION: Right lower lung atelectasis is seen. No acute abnormalities. ACT 112: Negative or not required by law. Electronically signed by: Pablo Garza M.D. 09/12/2023 3:07 PM Code Status & VTE Plan VTE Prophylaxis Plan VTE Prophylaxis will be ordered: Yes Supervising Physician Co-Signing Physician Notes I have seen and examined the patient and have discussed the case with the provider above. I agree with the assessment and plan as stated. She presents with acute on chronic heart failure syndrome including dyspnea on exertion and swelling with weight gain. She is obese and has poor exercise tolerance at baseline. Son is present at bedside and assists with the history. She has HFimpEF and is on Toprol XL and ARB, but not on MRA or jardiance which should be considered once she is more stabilized. On exam: 118/94, P 67, RR 24, T 36.6C, 100% on 3LPM via NC. CONSTITUTIONAL: obese, vitals as above, generally well-appearing, NAD EYES: normal conjunctivae, no scleral icterus ENT: external ear and nose normal, +JVD NECK: trachea midline RESPIRATORY: clear to auscultation bilaterally with decreased breath sounds at the right base, no crackles, rales or wheezes, normal respiratory effort, no conversational dyspnea at rest. CARDIOVASCULAR: regular rate and rhythm, S1 and 2 heard without murmurs, gallops or rubs, trace LE edema CHEST: inspection of chest was normal GASTROINTESTINAL: soft, nontender, ND, no guarding MUSCULOSKELETAL: strength 5/5 throughout, head is normocephalic and atraumatic SKIN: warm and dry NEUROLOGIC: CN 2-12 grossly intact, no sensory deficit, normal cognition, normal speech, no tremor PSYCHIATRIC: alert cooperative and oriented to person, place and time. Labs/EKG/Meds/imaging reviewed. Creat is 2, which is where she has been running over the past several months per outpatient records. HS trop is 24-->25 and where this is not a high rise in velocity and she is not reporting chest pain, there are TWI in the anterolateral leads present on the EKG today that are new. Cont to trend and cardiology consult in am. Elevated BNP to 490. Clear CXR. On her typical chronic oxygen supplementation at same level as home. Cont with Lasix/guerra ordered/low salt diet. Encouraged to ambulate as tolerated. Cont Toprol and ARB per home regimen. DO Thai (3) CAD (coronary atherosclerotic disease) Associated angina: with unspecified form of angina Coronary Disease- Associated Artery/Lesion type: unspecified vessel or lesion type [place] vs. transplanted heart: [place] heart Qualified Code(s): I25.119 - Atherosclerotic heart disease of [place] coronary artery with unspecified angina pectoris
[2023-09-12] MEDS ORDERED: ACETAMINOPHEN 325 MG TAB PO PRN (22:20)
[2023-09-12] MEDS ORDERED: ONDANSETRON INJ 2 MG/ML 2 ML VIAL IV PRN (22:20)
[2023-09-12] MEDS ORDERED: POLYETHYLENE (MIRALAX) 17 GM PACK PO PRN (22:20)
--- OUTSIDE RECORDS SUMMARY | 2023-09-12 22:23 | External Medical Summary ---
Author Name Unknown Address Unknown Organization : Laboratory Report Ordering Provider Test Date Status TAMEKA CANDELARIOXTON 09/12/2023 11:33:35 Final Therapeutic ranges for non-o perative patients:
Prophylaxsis/treatment of DVT: (Range:2.0-3.0)
Treatment of pulmonary embolism:(Range:2.0-3.0)
Prevention of systemic embolism from:
-tissue heart valves
-acute myocardial infarction
-valvular heart disease
-atrial fibrillation
(Range: 2.0-3.0)
Mechanical prosthetic valves: (Range: 2.5-3.5) Observation Date Value Abnormality Reference (Units ) Status INR in Capillary blood by Coagulation assay 09/12/2023 11:33:35 2.6 (INR) Final Performing Location
--- OUTSIDE RECORDS SUMMARY | 2023-09-12 22:23 | External Medical Summary | Summary of Care ---
Author Name Unknown Organization [facility] Address [address] [place] [address] Phone [phone] Care Team Providers Care Volunteer Services Manager Name Role Phone Yaya Frederick MD Primary Care Provider [phone] Encounter Details Date Type Department Care Team (Late st Contact Info) Description 09/01/2023 Result Scan Unspecified Department Yared Raphael MD [address] [place] [address] <No scans attached> Allergies Active Allergy Reactions Criticality Noted Date Comments Amiodarone Edema face/lips/tongue,Edema Other,Rash High 01/05/2011 legs Etodolac 02/16/2004 lodine; pruritis Cephalexin Rash High 06/09/2015 Unsure if this was a true reaction from Keflex Penicillins 09/17/2001 Rash, burning and itching after 2nd dose in her 60's Sulfa Antibiotics Rash 03/05/2003 Adhesive Tape Rash 04/10/2017 Azithromycin 12/06/2011 Throat felt swollen. Denies any shortness of breath. Simvastatin 11/08/2007 documented as of this encounter (statuses as of 09/01/2023) Medications Medication Sig Dispensed Refills Start Date End Date Status BENADRYL 25 MG PO TABS 1 TABLET EVERY 4 TO 6 HOURS NEEDED 0 Active GRX ANALGESIC BALM EX OINT Apply topically to affected area. 0 07/01/2013 Active Azelastine HCl 0.15 % Nasal SolutionIndications:P ost-nasal discharge Administer into nostril 1 [place] in the morning AND 1 [place] before bedtime. 30 mL 0 11/30/2021 Active Ipratropium [place] 0.03 % Nasal Solution Administer into each nostril 2 Sprays 2 times a day as needed for Rhinitis. 30 mL 5 02/23/2022 Active Metoprolol Succinate ER 100 MG Oral Tablet Extended Release 24 Hour (toPROL XL)Indications:Hypert ensive kidney disease with stage 3a chronic kidney disease (HCC) Take 1.5 Tablets (150 mg) by mouth in the morning and 1.5 Tablets (150 mg) before bedtime. 270 Tablet 3 10/03/2022 Active Additional Information Patient taking differently: 100 mgOral BID (.AM/PM), Reported on 05/25/2023 oxygen IN GAS Use as directed. 2L at bedtime 0 Active Hydroxyurea 500 MG Oral Capsule (Hydrea)Indications:E ssential thrombocythemia ([facility]) Take 1 capsule by mouth 5 days a week 60 Capsule 5 05/15/2023 Active Mometasone Furoate 50 MCG/ACT Nasal SuspensionIndications :Chronic seasonal allergic rhinitis due to pollen Administer 2 Sprays into each nostril in the morning. 51 g 3 05/15/2023 Active busPIRone HCl 5 MG Oral Tablet (Buspar)Indications:A nxiety state Take 1 Tablet by mouth in the morning and 1 Tablet before bedtime. 20 Tablet 0 05/15/2023 Active Rosuvastatin Calcium 20 MG Oral Tablet (Crestor)Indications: NSTEMI (non-ST elevated myocardial infarction) ([facility]) Take 1 Tablet by mouth in the morning. 90 Tablet 3 05/18/2023 Active Nitroglycerin 0.4 MG Sublingual Tablet Sublingual (Nitrostat)Indication s:NSTEMI (non-ST elevated myocardial infarction) ([facility]) Place 1 Tablet under the tongue as needed for Pain, Chest. May repeat 3 times. If chest pain continues, call 911. 25 Tablet 11 05/18/2023 Active Additional Information Patient not taking.Reported on 08/01/2023 Probiotic Acidophilus Oral Capsule Take by mouth daily. 0 Active Torsemide 20 MG Oral Tablet (Demadex) Take 1 Tablet by mouth in the morning. 30 Tablet 3 06/23/2023 Active Isosorbide Mononitrate ER 60 MG Oral Tablet Extended Release 24 Hour (Imdur)Indications:HF rEF (heart failure with reduced ejection fraction) ([facility]) Take 1 Tablet by mouth in the morning. 30 Tablet 3 07/03/2023 Active Clopidogrel Bisulfate 75 MG Oral Tablet (pLAVix)Indications:H FrEF (heart failure with reduced ejection fraction) ([facility]) Take 1 Tablet by mouth in the morning. 30 Tablet 3 07/03/2023 Active Famotidine 20 MG Oral Tablet (Pepcid) Take 1 Tablet by mouth in the morning. 30 Tablet 11 07/11/2023 Active Docusate Sodium 100 MG Oral Capsule (Colace) Take 1 Capsule by mouth in the morning and 1 Capsule before bedtime. 60 Capsule 5 08/01/2023 Active Senna 8.6 MG Oral Tablet Take 1 Tablet by mouth in the morning. 30 Tablet 5 08/01/2023 Active Lactulose 10 GM/15ML Oral Solution (Constulose) Take 15 mL by mouth in the morning and 15 mL at noon and 15 mL before bedtime. 240 mL 0 08/23/2023 Active Fexofenadine HCl 60 MG Oral Tablet (Lizzette) Take 1 Tablet by mouth daily as needed for Allergies. 90 Tablet 1 08/30/2023 Active Warfarin Sodium 2.5 MG Oral TabletIndications:Chr onic ischemic heart disease Up to one tablet daily as directed by the [facility] clinic 100 Tablet 3 08/31/2023 Active Losartan Potassium 25 MG Oral Tablet (Cozaar) Take 0.5 Tablets by mouth in the morning. 45 Tablet 1 08/30/2023 Active documented as of this encounter (statuses as of 09/01/2023) Active Problems Problem Noted Date Diagnosed Date HFrEF (heart failure with reduced ejection fract ion) 06/30/2023 RADHA (acute kidney injury) 06/15/2023 Chronic hypoxemic respiratory failure 02/08/2023 Hx of actinic keratosis 05/24/2021 Hypertensive kidney disease with stage 3a chronic kidney disease 08/31/2020 Overview: Per CKD protocol Obstructive sleep apnea of adult 04/27/2020 Paroxysmal atrial fibrillation 10/28/2019 Bilateral leg edema 04/16/2018 Hx of nonmelanoma skin cancer 02/19/2018 Overview: Hx BCC R midchest 03/2017 Essential thrombocythemia 10/14/2017 Lumbar spinal stenosis 04/15/2015 Cardiac pacemaker in situ 04/17/2014 Sinus node dysfunction 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 HTN, goal below 150/90 09/24/2009 Asymptomatic bilateral carotid artery stenosis 0 05/25/2009 Restless legs syndrome 01/23/2009 Old myocardial infarct 09/25/2007 S/P angioplasty with stent 01/15/2007 Overview: RIght coronory stent 12/27 S/P aortic valve replacement 11/03/2006 CHR ISCHEMIC HRT DIS NOS 05/01/2006 Overview: SUMMARY: 1. Severe multivessel coronary artery disease. a. 90% proximal left anterior descending and 70% first diagonal bifurcation lesion. b. 80% left circumflex stenosis. c. 80% right coronary artery stenosis. 2. Normal LV systolic function. ADVANCE DIRECTIVE INFORMATION 04/22/2005 Overview: Yes, Copy to be scanned at patient level in the electronic medical record.(Go to Action, Patient File to view) Patient aware they must notify their healthcare provider of changes. Osteoporosis 07/12/2004 documented as of this encounter (statuses as of 09/01/2023) Resolved Problems Problem Noted Date Diagnosed Date Resolved Date Chronic heart failure with p reserved ejection fraction (HFpEF) 02/08/2023 06/30/2023 Hypertensive kidney disease with stage 3b chronic kidney disease 05/03/2021 07/04/2022 Overview: Per CKD protocol Chronic kidney disease, stage 3b 05/03/2021 07/04/2022 Overview: Per CKD protocol Chronic kidney disease, stage 3a 2021 05/06/2021 Overview: Per CKD protocol Hypertensive kidney disease with chronic kidney disease stage III 01/23/2019 09/03/2020 Overview: Per CKD protocol Kidney disease, chronic, sta ge III (GFR 30-59 ml/min) 09/03/2018 01/30/2019 Overview: Per CKD protocol #1 GAVIN (obstructive sleep apnea) 12/21/2017 09/16/2020 Dermatitis 06/18/2015 02/16/2017 Displacement of lumbar inter vertebral disc without myelopathy 03/12/2011 12/27/2017 Atrial fibrillation 11/12/2010 10/28/19 20 ANGIOEDEMA 01/16/2008 07/30/2018 Esophageal reflux 07/19/2007 10/28/2019 Examination of participant in clinical trial 7 02/05/2010 Overview: Renamed Per Clinical Trials Billing Project. 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 # [id number] Studio Operator: Wilda Serrano MD [phone] GENOMICS CARDIO RESEARCH OTHER*[id number] 01/09/2007 11/29/2016 Overview: Renamed Per Clinical Trials Billing Project. 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 # [id number] Studio Operator: Wilda Serrano MD [phone] Type 2 diabetes mellitus wit h hemoglobin A1c goal of less than 7.0% 11/03/2006 08/15/2007 Overview: ICD-10 update of inactive term PURE HYPERCHOLESTEROLEM 11/03/200609/22 Overview: Per Lipid Taxonomy. 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/20 08 correction current use of ant icoagulant therapy 05/05/2006 01/23/2009 Overview: ICD-10 update of inactive term Anticoagulation management encounter 05/05/2006 10/03/2019 Unspecified viral infection, in conditions classified elsewhere and of unspecified site 06/08/2005 09/25/2007 Menopause 12/19/2001 12/27/2017 FEM STRESS INCONTINENCE 05/10/200111/23 documented as of this encounter (statuses as of 09/01/2023) Immunizations Name Administration Dates Next Due COVID-19 mRNA, LNP-s, No Pre serve, 2-Dose Series (Pfizer) 09/13/2021,01/05/2021,12/15/2020 Covid-19, Mrna, Lnp-s, Pf, B ivalent, 30 Mcg, IM, 12 yrs and above (Pfizer) 09/29/2022 H1N1 2009 Influenza, IM 10/08/2009 Pneumococcal Conjugate Vacc, 13 Valent (Prevnar) 05/24/2016 SEASONAL INFLUENZA, PF, 6 M & Above, IM , (FLULAVAL or FLUZONE) 07/30/2018,08/29/2017 Season Influenza, Quad, PF, Adjuvanted, 65+ Yrs, IM (FLUAD) 08/03/2020 Seasonal Influenza Virus Vac cine, Unspecified Formulation 07/19/2021,08/03/2020,07/23/2019,07/30,08/29/2017,07/28/2016,07/05/2016 ,07/07/2014,07/22/2013,07/03/2012,06/24,07/21/2010,09/12/2009, 8,07/23/2007,08/02/2006,08/23/2005,,10/01/2001 Seasonal Influenza, Quadriva lent Hd (Fluzone Hd) 06/30/2023,07/04/2022,07/19/2021 Seasonal Influenza, Quadriva lent, No Preserve, IM 07/28/2016,07/05/2016,08/05/2015 07/28/2017 Seasonal Influenza, Split, I IV3, With Preserve, Inj 07/07/2014,07/22/2013,07/03/2012,07/12,07/21/2010,09/12/2009,08/04/2008 ,07/23/2007,08/02/2006 Seasonal Influenza, Trivalen t, Adjuvanted, 65+ yrs 07/23/2019 07/23/2020 TD - Tetanus/Diptheria (ADULT) 05/26/2008 TDAP (age 10 and older)(Boostrix) 06/04/2019,05/2019 documented as of this encounter Social History Tobacco Use Types Packs/Day Years Used Date Smoking Tobacco: Never Smokeless Tobacco: Never Comments:no passive smoke ex posures Alcohol Use Standard Drinks/Week Comments No 0 (1 standard drink = 0.6 oz pur e alcohol) PHQ-2 Answer Date Recorded PHQ Adult Total Score 0 02/08/2023 Hunger Vital Sign Answer Date Recorded Worried About Running Out of Food in the Last Ye ar Never true 10/28/2019 Ran Out of Food in the Last Year Never true 10/28/2019 Sex and Gender Information Value Date Recorded Sex Assigned at Female 08/03/2020 2:05 PM EDT Gender Identity Female 08/03/2020 2:05 PM EDT Sexual Orientation Straight 08/03/2020 2: 05 PM EDT Job Start Date Occupation Industry Not on file Not on file Not on file documented as of this encounter Plan of Treatment Upcoming Encounters Date Type Department Care Team ([facility] Contact Info) Description 09/12/2023 11:20 AM EST Office Visit Family Practice [address] [phone] Oneida Briggs PA-C [address] [place] [address] 09/13/2023 5:30 PM EST Anticoagulation Pharmacy [address] [phone] Pharmacist2, [facility] [address] [address] 10/02/2023 3:30 PM EST Office Visit Cardiology, [facility] [place] [address] Bucky Calvo PA-C [address] [place] [address] 10/06/2023 10:40 AM EST Office Visit Otolaryngology [facility] [address] [facility] [address] [place] [phone] Keely Tanner PA-C [address] [facility] [place] [address] 10/25/2023 10:40 AM EST Office Visit Nephrology [facility] [address] [facility] [address] [place] [phone] Alfa Holcomb MD 200 [facility] [place] [address] 11/20/2023 1:40 PM EST Office Visit Family Practice [facility] [address] [place] [phone] Yaya Frederick MD [address] [place] [address] 12/01/2023 2:15 PM EST Office Visit Hematology/Oncology [facility] [address] [facility] [place] [address] Agustín Sullivan MD 200 [facility] [place] [address] 08/16/2024 11:00 AM EDT Cardiac Studies Cardiology, [facility] [address] [facility] [place] [address] [facility] 132 [facility] [place] [address] Health Maintenance Due Date Last Done Comments Zoster Vaccines (1 of 2) 1954 Hepatitis B (1 of 3 - Risk 3-dose series) 1996 COVID-19 Vaccine ( season) 2023 09/29/2022, 09/13/2021, 01/05/2021, Additional history exists Depression Screening 02/09/2024 02/08/2023 CKD PHOS USE SMARTSET 29872 05/01/202404/22, 11/04/2022, 02/14/2019 Albumin/Creatinine Ratio 06/15/2024 023, 05/01/2023, 07/04/2022, Additional history exists CKD HGB USE SMARTSET 46429 08/29/202408/29, 08/29/2023, 08/11/2023, Additional history exists DXA Scan 11/09/2024 11/09/2022, 01/21, 11/03/2015, Additional history exists DTaP,Tdap,and Td Vaccines (3 - Td or Tdap) 06/04/2029 06/04/2019, 01/28/2019, 05/26/2008 Pneumococcal Vaccine: 65+ Years Completed 05/24/2016, 11/14/2001 VITAMIN D LEVEL ONCE IN A LIFETIME-USE SMARTSET# [id number] Completed 05/01/2023, 11/04/2022, 02/14/2019, Additional history exists Influenza Vaccine (FLU shot) Completed 05/2023, 07/04/2022, 07/19/2021, Additional history exists GARDASIL-HPV IMMUNIZATION SERIES Aged Out No longer eligible based on patient's age to complete this topic MENINGOCOCCAL (MENACTRA/MENVEO) Aged Out No longer eligible based on patient's age to complete this topic documented as of this encounter Medical Devices Not on filedocumented as of this encounter Procedures Procedure Name Priority Date/Time Associated Diagnosis Comments CARDIOLOGY SCANNED RESULT 09/01/2023 documented in this encounter Results * CARDIOLOGY SCANNED RESULT (09/01/2023) 09/01/2023 Yared Raphael MD OTHER documented in this encounter Additional Health Concerns Infection Onset Date Last Indicated Resolved Time Varicella zoster 08/01/2022 08/01/2022 documented as of this encounter Care Teams Volunteer Services Manager Relationship Specialty Start Date End Date Yaya Frederick MD [address] [place] [address] PCP - General Family Medicine 05/04/21 documented as of this encounter
--- OUTSIDE RECORDS SUMMARY | 2023-09-12 22:23 | External Medical Summary | Summary of Care ---
Author Name Unknown Organization [facility] Address [address] [place] [address] Phone [phone] Care Team Providers Care Cook Helper Juice Name Role Phone Yaya Frederick MD Primary Care Provider [phone] Reason for Visit * Reason Onset Date Comments Test Results Lab 08/31/2023 Encounter Details Date Type Department Care Team (Late st Contact Info) Description 08/31/2023 Telephone Hematology/Oncology Treatment, [place] [address] [place] [address] Agustín Sullivan MD [address] [place] [address] Test Results Lab Allergies Active Allergy Reactions Criticality Noted Date [...] as of this encounter (statuses as of 08/31/2023) Medications Medication Sig Dispensed Refills Start Date End Date Status BENADRYL 25 MG PO TABS 1 TABLET EVERY 4 TO 6 HOURS NEEDED 0 Active GRX ANALGESIC BALM EX OINT Apply topically to affected area. 0 07/01/2013 Active Azelastine HCl 0.15 % Nasal SolutionIndications:P ost-nasal discharge Administer into nostril 1 [place] in the morning AND 1 [place] before bedtime. 30 mL 0 11/30/2021 Active Ipratropium [place] 0.03 % Nasal Solution Administer into each nostril 2 Sprays 2 times a day as needed for Rhinitis. 30 mL 5 02/23/2022 Active Warfarin Sodium 2.5 MG Oral TabletIndications:Chr onic ischemic heart disease Up to one tablet daily as directed by the Anticoag clinic 100 Tablet 3 08/09/2022 Active Metoprolol Succinate ER 100 MG Oral [...] 500 MG Oral Capsule (Hydrea)Indications:E ssential thrombocythemia (HCC) Take 1 capsule by mouth 5 days [...] Tablet (Crestor)Indications: NSTEMI (non-ST elevated myocardial infarction) (HCC) Take 1 Tablet by mouth in the morning. 90 Tablet 3 05/18/2023 Active Nitroglycerin 0.4 MG Sublingual Tablet Sublingual (Nitrostat)Indication s:NSTEMI (non-ST elevated myocardial infarction) ([facility]) Place 1 Tablet under the tongue as [...] rEF (heart failure with reduced ejection fraction) ([facility]) Take 1 Tablet by mouth in the morning. 30 Tablet 3 07/03/2023 Active Clopidogrel Bisulfate 75 MG Oral Tablet (pLAVix)Indications:H FrEF (heart failure with reduced ejection fraction) ([facility]) Take 1 Tablet by mouth in the [...] for Allergies. 90 Tablet 1 08/30/2023 Active Losartan Potassium 25 MG Oral Tablet (Cozaar) Take 0.5 Tablets by mouth in the morning. 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 # [id number] Electrical Appliance Repairer: Wilda Serrano MD [phone] Type 2 diabetes mellitus wit h hemoglobin A1c goal of less than 7.0% 11/03/2006 08/15/2007 Overview: ICD-10 update of inactive term PURE HYPERCHOLESTEROLEM 11/03/200609/22 Overview: Per Lipid Taxonomy. 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 current use of ant icoagulant therapy 05/05/2006 01/23/2009 Overview: ICD-10 update of inactive term Anticoagulation management encounter 05/05/2006 10/03/2019 Unspecified viral infection, in conditions classified elsewhere and of unspecified site 06/08/2005 09/25/2007 Menopause 12/19/2001 12/27/2017 FEM STRESS INCONTINENCE 05/10/200111/23 documented as of this encounter (statuses as of 08/31/2023) Immunizations Name Administration Dates Next Due COVID-19 [...] on file documented as of this encounter Miscellaneous Notes * Telephone Encounter - Carol Quick RN - 08/31/2023 7:[address] Sullivan: "Blood workup done on 07/29/2023: - WBC 6700, H&H of 10.8/36.6, MCV 115.8, platelet count of 259,000 - BUN/Creat: 41/1.9. She is a case of essential thrombocythemia, JAK2 mutation positive. Currently she is on hydroxyurea 500 mg 5 days a week. She also has abnormal kidney function tests contributing to the anemia in her case. Platelet count is in normal range. Will continue hydroxyurea at the same dose at 500 mg 5 days in a week. Repeat CBCD in about 3 months. " MyG sent. documented in this encounter Plan of Treatment Upcoming Encounters Date Type Department Care Team (Late st Contact Info) Description 09/12/2023 11:20 AM EST Office Visit [facility] [address] [place] [phone] Oneida Briggs PA-C [address] [place] [address] 09/13/2023 5:30 PM EST Anticoagulation Pharmacy [address] [phone] Pharmacist2, [facility] [address] [address] 10/02/2023 3:30 PM EST Office Visit Cardiology, [facility] [address] [facility] [place] [address] Bucky Calvo PA-C [address] [place] [address] 10/06/2023 10:40 AM EST Office Visit Otolaryngology [address] [place] [phone] Keely Tanner PA-C [address] [place] [address] 10/25/2023 10:40 AM EST Office Visit Nephrology [address] [place] [phone] Alfa Holcomb MD 200 [facility], [place] [address] 11/20/2023 1:40 PM EST Office Visit [address] [phone] Yaya Frederick MD [address] [place] [address] 12/01/2023 2:15 PM EST Office Visit Hematology/Oncology [facility] [address] [facility] [place], [place] [address] Agustín Sullivan MD [address] [facility] [place] [address] 08/16/2024 11:00 AM EDT Cardiac Studies Cardiology, [facility] 132 [facility] [place] [address] [place] [address] [facility] [place] [address] Health Maintenance Due Date Last Done Comments Zoster Vaccines (1 of 2) 1954 Hepatitis B (1 of 3 - Risk 3-dose series) 1996 COVID-19 Vaccine ( season) 2023 09/29/2022, 09/13/2021, 01/05/2021, Additional history exists Depression Screening 02/09/2024 02/08/2023 CKD PHOS USE SMARTSET 38536 05/01/202404/22, 11/04/2022, 02/14/2019 Albumin/Creatinine Ratio 06/15/2024 023, 05/01/2023, 07/04/2022, Additional history exists CKD HGB USE SMARTSET 93159 08/29/202408/29, 08/29/2023, 08/11/2023, Additional history exists DXA Scan 11/09/2024 11/09/2022, 01/21, 11/03/2015, Additional history exists DTaP,Tdap,and Td Vaccines (3 - Td or Tdap) 06/04/2029 06/04/2019, 01/28/2019, 05/26/2008 Pneumococcal Vaccine: 65+ Years Completed 05/24/2016, 11/14/2001 VITAMIN D LEVEL ONCE IN A LIFETIME-USE SMARTSET# [id number] Completed 05/01/2023, 11/04/2022, 02/14/2019, Additional history exists Influenza Vaccine (FLU shot) Completed 05/2023, 07/04/2022, 07/19/2021, Additional history exists GARDASIL-HPV IMMUNIZATION SERIES Aged Out No longer eligible based on patient's age to complete this topic MENINGOCOCCAL (MENACTRA/MENVEO) Aged Out No longer eligible based on patient's age to complete this topic documented as of this encounter Medical Devices Not on filedocumented as of this encounter Additional Health Concerns Infection Onset Date Last Indicated Resolved Time Varicella zoster 08/01/2022 08/01/2022 documented as of this encounter Care Teams Cook Helper Juice Relationship Specialty Start Date End Date Yaya Frederick MD [address] [place] [phone] PCP - General Family Medicine 05/04/21 documented as of this encounter
--- OUTSIDE RECORDS SUMMARY | 2023-09-12 22:23 | External Medical Summary | Summary of Care ---
Author Name Unknown Organization [facility] Address [address] [place] [address] Phone [phone] Care Team Providers Care Hoist Mechanic Name Role Phone Yaya Frederick MD Primary Care Provider [phone] Reason for Visit * Reason Onset Date Comments medication change 08/01/2023 Encounter Details Date Type Department Care Team ([facility] st Contact Info) Description 08/01/2023 Telephone Family Practice [facility] [address] [place] [address] Oneida Briggs PA-C [address] [place], [place] [phone] medication change Allergies Active Allergy Reactions Criticality Noted Date [...] as of this encounter (statuses as of 09/04/2023) Medications Medication Sig Dispensed Refills Start Date End Date Status BENADRYL 25 MG PO TABS 1 TABLET EVERY 4 TO 6 HOURS NEEDED 0 Active GRX ANALGESIC BALM EX OINT Apply topically to affected area. 0 07/01/20 13 Active Azelastine HCl 0.15 % Nasal SolutionIndications :Post-nasal discharge Administer into nostril 1 [place] in the morning AND 1 [place] before bedtime. 30 mL 0 11/30/19 22 Active Ipratropium [place] 0.03 % Nasal Solution Administer into each nostril 2 Sprays 2 times a day as needed for Rhinitis. 30 mL 5 02/24/20 22 Active Metoprolol Succinate ER 100 MG Oral Tablet Extended Release 24 Hour (toPROL XL)Indications:Hype rtensive kidney disease with stage 3a chronic kidney disease (HCC) Take 1.5 Tablets (150 mg) by mouth in the morning and 1.5 Tablets (150 mg) before bedtime. 270 Tablet 3 10/03/20 22 Active Additional Information Patient taking differently: 100 mgOral BID (.AM/PM), Reported on 05/25/2023 oxygen IN GAS Use as directed. 2L at bedtime 0 Active Hydroxyurea 500 MG Oral Capsule (Hydrea)Indications :Essential thrombocythemia (HCC) Take 1 capsule by mouth 5 days a week 60 Capsule 5 05/15/20 23 Active Mometasone Furoate 50 MCG/ACT Nasal SuspensionIndicatio ns:Chronic seasonal allergic rhinitis due to pollen Administer 2 Sprays into each nostril in the morning. 51 g 3 05/15/20 23 Active busPIRone HCl 5 MG Oral Tablet (Buspar)Indications :Anxiety state Take 1 Tablet by mouth in the morning and 1 Tablet before bedtime. 20 Tablet 0 05/15/20 23 Active Rosuvastatin Calcium 20 MG Oral Tablet (Crestor)Indication s:NSTEMI (non-ST elevated myocardial infarction) ([facility]) Take 1 Tablet by mouth in the morning. 90 Tablet 3 05/18/20 23 Active Nitroglycerin 0.4 MG Sublingual Tablet Sublingual (Nitrostat)Indicati ons:NSTEMI (non-ST elevated myocardial infarction) ([facility]) Place 1 Tablet under the tongue as needed for Pain, Chest. May repeat 3 times. If chest pain continues, call 911. 25 Tablet 11 05/18/20 Active Additional Information Patient not taking.Reported on 08/01/2023 Probiotic Acidophilus Oral Capsule Take by mouth daily. 0 Active Torsemide 20 MG Oral Tablet (Demadex) Take 1 Tablet by mouth in the morning. 30 Tablet 3 06/23/20 Active Isosorbide Mononitrate ER 60 MG Oral Tablet Extended Release 24 Hour (Imdur)Indications: HFrEF (heart failure with reduced ejection fraction) (HCC) Take 1 Tablet by mouth in the morning. 30 Tablet 3 07/03/20 Active Clopidogrel Bisulfate 75 MG Oral Tablet (pLAVix)Indications :HFrEF (heart failure with reduced ejection fraction) (HCC) Take 1 Tablet by mouth in the morning. 30 Tablet 3 07/03/20 Active Famotidine 20 MG Oral Tablet (Pepcid) Take 1 Tablet by mouth in the morning. 30 Tablet 11 07/11/20 Active Docusate Sodium 100 MG Oral Capsule (Colace) Take 1 Capsule by mouth in the morning and 1 Capsule before bedtime. 60 Capsule 5 08/01/20 Active Senna 8.6 MG Oral Tablet Take 1 Tablet by mouth in the morning. 30 Tablet 5 08/01/20 Active MAG-OXIDE 400 MG PO TABSIndications:Chr onic ischemic heart disease one tablet twice a day 60 Tab 5 01/06/20 11 023 Discontinued Fexofenadine HCl 180 MG Oral Tablet (Lizzette) Take by mouth 1 Tablet daily as needed for Allergies. 90 Tablet 0 01/22/20 22 023 Discontinued(Re fill) Warfarin Sodium 2.5 MG Oral TabletIndications:C hronic ischemic heart disease Up to one tablet daily as directed by the Anticoag clinic 100 Tablet 3 08/09/20 22 023 Discontinued(Re fill) Losartan Potassium 25 MG Oral Tablet (Cozaar) Take 0.5 Tablets by mouth in the morning. 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/20 08 shelter current use of ant icoagulant therapy 05/05/2006 01/23/2009 Overview: ICD-10 update of inactive term Anticoagulation management encounter 05/05/2006 10/03/2019 Unspecified viral infection, in conditions classified elsewhere and of unspecified site 06/08/2005 09/25/2007 Menopause 12/19/2001 12/27/2017 FEM STRESS INCONTINENCE 05/10/200111/23 documented as of this encounter (statuses as of 09/04/2023) Immunizations Name Administration Dates Next Due COVID-19 [...] encounter Miscellaneous Notes * Telephone Encounter - Oneida Briggs PA-C - 08/01/2023 11:34 AM EDT Patient's losartan was held for ARDHA in May. Her Cr remains elevated. I would like to resume Losartan as soon as possible given the patient's cardiac history. Can we resume losartan now? Oneida Briggs PA-C 08/01/2023 11:37 AM documented in this encounter Plan of Treatment Upcoming Encounters Date Type Department Care Team ([facility] st Contact Info) Description 09/12/2023 11:20 AM EST Office Visit [address] [place] [phone] Oneida Briggs PA-C [address] [place] [address] 09/13/2023 5:30 PM EST Anticoagulation Pharmacy [facility] [address] [place] [phone] Pharmacist2, [facility] [address] [address] 10/02/2023 3:30 PM EST Office Visit Cardiology, [facility] [address] [place] [address] Bucky Calvo PA-C [address] [place] [address] 10/06/2023 10:40 AM EST Office Visit Otolaryngology [address] [place] [phone] Keely Tanner PA-C [address] [place] [address] 10/25/2023 10:40 AM EST Office Visit Nephrology [address] [phone] Alfa Holcomb MD [address] [facility] [place] [address] 11/20/2023 1:40 PM EST Office Visit Family Practice [facility] [address] [place] [phone] Yaya Frederick MD [address] [place] [address] 12/01/2023 2:15 PM EST Office Visit Hematology/Oncology [facility] [place] [address] [place] [address] Agustín Sullivan MD [address] [place] [address] 08/16/2024 11:00 AM EDT Cardiac Studies Cardiology, [facility] [address] [place] [address] [facility] [address] [place] [address] Health Maintenance Due Date Last Done Comments Zoster Vaccines (1 of 2) 1954 Hepatitis B (1 of 3 - Risk 3-dose series) 1996 COVID-19 Vaccine ( season) 2023 09/29/2022, 09/13/2021, 01/05/2021, Additional history exists Depression Screening 02/09/2024 02/08/2023 CKD PHOS USE SMARTSET 06288 05/01/202404/22, 11/04/2022, 02/14/2019 Albumin/Creatinine Ratio 06/15/2024 023, 05/01/2023, 07/04/2022, Additional history exists CKD HGB USE SMARTSET 59594 08/29/202408/29, 08/29/2023, 08/11/2023, Additional history exists DXA Scan 11/09/2024 11/09/2022, 01/21, 11/03/2015, Additional history exists DTaP,Tdap,and Td Vaccines (3 - Td or Tdap) 06/04/2029 06/04/2019, 01/28/2019, 05/26/2008 Pneumococcal Vaccine: 65+ Years Completed 05/24/2016, 11/14/2001 VITAMIN D LEVEL ONCE IN A LIFETIME-USE SMARTSET# [id number] Completed 05/01/2023, 11/04/2022, 02/14/2019, Additional history exists [...] documented as of this encounter Care Teams Hoist Mechanic Relationship Specialty Start Date End Date Yaya Frederick MD [address] [place] [address] PCP - General Family Medicine 05/04/21 documented as of this encounter
--- OUTSIDE RECORDS SUMMARY | 2023-09-12 22:23 | External Medical Summary | Summary of Care ---
Author Name Unknown Organization [facility] Address [address] [place] [address] Phone [phone] Care Team Providers Care Assembler Wire Group Name Role Phone Yaya Obando MD Primary Care Provider [phone] Reason for Visit * Reason Onset Date Comments Medication Refill 08/30/2023 Encounter Details Date Type Department Care Team (Late st Contact Info) Description 08/30/2023 Refill [facility] [address] [place] [address] Yaya Oabndo MD [address] [place] [phone] Chronic ischemic heart disease Allergies Active Allergy Reactions Criticality Noted Date [...] 07/01/2013 Active Azelastine HCl 0.15 % Nasal SolutionIndications: Post-nasal discharge Administer into nostril 1 [place] in the morning AND 1 [place] before bedtime. 30 mL 0 11/30/2021 Active Ipratropium [place] 0.03 % Nasal Solution Administer into each nostril 2 Sprays 2 times a day as needed for Rhinitis. 30 mL 5 02/23/2022 Active Metoprolol Succinate ER 100 MG Oral Tablet Extended Release 24 Hour (toPROL XL)Indications:Hyper tensive kidney disease with stage 3a chronic kidney disease (HCC) Take 1.5 Tablets (150 mg) by mouth in the morning and 1.5 Tablets (150 mg) before bedtime. 270 Tablet 3 10/03/2022 Active Additional Information Patient taking differently: 100 mgOral BID (.AM/PM), Reported on 05/25/2023 oxygen IN GAS Use as directed. 2L at bedtime 0 Active Hydroxyurea 500 MG Oral Capsule (Hydrea)Indications: Essential thrombocythemia (HCC) Take 1 capsule by mouth 5 days a week 60 Capsule 5 05/15/2023 Active Mometasone Furoate 50 MCG/ACT Nasal SuspensionIndication s:Chronic seasonal allergic rhinitis due to pollen Administer 2 Sprays into each nostril in the morning. 51 g 3 05/15/2023 Active busPIRone HCl 5 MG Oral Tablet (Buspar)Indications: Anxiety state Take 1 Tablet by mouth in the morning and 1 Tablet before bedtime. 20 Tablet 0 05/15/2023 Active Rosuvastatin Calcium 20 MG Oral Tablet (Crestor)Indications :NSTEMI (non-ST elevated myocardial infarction) ([facility]) Take 1 Tablet by mouth in the morning. 90 Tablet 3 05/18/2023 Active Nitroglycerin 0.4 MG Sublingual Tablet Sublingual (Nitrostat)Indicatio ns:NSTEMI (non-ST elevated myocardial infarction) ([facility]) Place 1 Tablet under the tongue [...] MG Oral Tablet Extended Release 24 Hour (Imdur)Indications:H FrEF (heart failure with reduced ejection fraction) ([facility]) Take 1 Tablet by mouth in the morning. 30 Tablet 3 07/03/2023 Active Clopidogrel Bisulfate 75 MG Oral Tablet (pLAVix)Indications: HFrEF (heart failure with reduced ejection fraction) [...] before bedtime. 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 # [id number] Equipment Service Engineer: Wilda Serrano MD [phone] Type 2 diabetes mellitus wit h hemoglobin A1c goal of less than 7.0% 11/03/2006 08/15/2007 Overview: ICD-10 update of inactive term PURE HYPERCHOLESTEROLEM 11/03/200609/22 Overview: Per Lipid Taxonomy. 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 therapy 05/05/2006 [...] encounter Miscellaneous Notes * Telephone Encounter - Charo Sunshine RP - 08/31/2023 8:38 AM ESTSigned Prescriptions: Disp Refills Warfarin Sodium 2.5 MG Oral Tablet 100 Ta*3 Sig: Up to one tablet daily as directed by the [facility] clinic Authorizing Provider: YAYA OBANDO Ordering User: CHARO SUNSHINE * Telephone Encounter - Rukhsana Crawford CPhT - 08/30/2023 11:15 AM EST Did you pend patient's preferred pharmacy and medication before forwarding?yes Pharmacy: [facility] [facility] [place] Pending Prescriptions: Disp Refills Warfarin Sodium 2.5 MG Oral Tablet 100 Ta*3 Sig: Up to one tablet daily as directed by the Antico clinic Last Visit: 08/01/2023 (in office), Visit date not found (telemedicine) Next Visit: 09/12/2023 If no future appointments scheduled, and last appointment is greater than a year ago, please schedule patient for a follow-up appointment Last date the medication was ordered: 08/09/2022 Is this request for a controlled substance?No Urine Drug Screen:No results found. However, due to the size of the patient record, not all encounters were searched. Please check Results Review for a complete set of results. Patient Phone Numbers Labs: Lab Results Component Value Date/Time CREAT 1.9 (H) 08/29/2023 12:38 PM CREAT 1.1 (H) 09/16/2020 02:47 PM POTASSIUM 3.8 08/29/2023 12:38 PM POTASSIUM 4.2 09/16/2020 02:47 PM TSH 2.43 05/01/2023 01:38 PM TSH 4.55 (H) 04/17/2020 10:26 AM LDLCALC 32 05/01/2023 01:38 PM LDLCALC 39 09/16/2020 02:47 PM LDLDIRECT 38 05/01/2023 01:38 PM LDLDIRECT NOT APPLICABLE 09/16/2020 02:47 PM LDLDIRECT 66 10/12/2017 08:21 AM ALT 24 05/15/2023 03:59 PM ALT 14 09/16/2020 02:47 PM HGBA1C 5.8 10/17/2017 10:18 AM documented in this encounter Plan of Treatment Upcoming Encounters Date Type Department Care Team ([facility] st Contact Info) Description 09/12/2023 11:20 AM EST Office Visit Family Practice [address] [place] [phone] Oneida Briggs PA-C [address] [place] [address] [place] [address] 09/13/2023 5:30 PM EST Anticoagulation Pharmacy [address] [phone] Pharmacist2, [facility] [address] [address] 10/02/2023 3:30 PM EST Office Visit Cardiology, [facility] [address] [facility] [place] [address] Bucky Calvo PA-C [address] [place] [address] 10/06/2023 10:40 AM EST Office Visit Otolaryngology [address] [place] [phone] Keely Tanner PA-C [address] [place] [address] 10/25/2023 10:40 AM EST Office Visit Nephrology [address] [place] [phone] Alfa Holcomb MD [address] [facility] [place] [address] 11/20/2023 1:40 PM EST Office Visit Family Practice [address] [phone] Yaya Obando MD [address] [place] [address] 12/01/2023 2:15 PM EST Office Visit Hematology/Oncology [place] [facility] [place] [address] [place] [address] Agustín Sullivan MD [address] [place] [address] 08/16/2024 11:00 AM EDT Cardiac Studies Cardiology, [facility] [address] [place] [address] [place] [facility] [address] [place] [address] Health Maintenance Due Date Last Done Comments Zoster Vaccines (1 of 2) 1954 Hepatitis B (1 of 3 - Risk 3-dose series) 1996 COVID-19 Vaccine ( season) 2023 09/29/2022, 09/13/2021, 01/05/2021, Additional history exists Depression Screening 02/09/2024 02/08/2023 CKD PHOS USE SMARTSET 81836 05/01/202404/22, 11/04/2022, 02/14/2019 Albumin/Creatinine Ratio 06/15/2024 023, 05/01/2023, 07/04/2022, Additional history exists CKD HGB USE SMARTSET 65487 08/29/202408/29, 08/29/2023, 08/11/2023, Additional history exists DXA Scan 11/09/2024 11/09/2022, 01/21, 11/03/2015, Additional history exists DTaP,Tdap,and Td Vaccines (3 - Td or Tdap) 06/04/2029 06/04/2019, 01/28/2019, 05/26/2008 Pneumococcal Vaccine: 65+ Years Completed 05/24/2016, 11/14/2001 VITAMIN D LEVEL ONCE IN A LIFETIME-USE SMARTSET# [id number] Completed 05/01/2023, 11/04/2022, 02/14/2019, Additional history exists Influenza Vaccine (FLU shot) Completed 05/2023, 07/04/2022, 07/19/2021, Additional history exists GARDASIL-HPV IMMUNIZATION SERIES Aged Out No longer eligible based on patient's age to complete this topic MENINGOCOCCAL (MENACTRA/MENVEO) Aged Out No longer eligible based on patient's age to complete this topic documented as of this encounter Medical Devices Not on filedocumented as of this encounter Visit Diagnoses Diagnosis Chronic ischemic heart disease Chronic ischemic heart disease, unspecified documented in this encounter Additional Health Concerns Infection Onset Date Last Indicated Resolved Time Varicella zoster 08/01/2022 08/01/2022 documented as of this encounter Care Teams Assembler Wire Group Relationship Specialty Start Date End Date Yaya Obando MD [address] [place] [phone] PCP - General Family Medicine 05/04/21 documented as of this encounter
--- OUTSIDE RECORDS SUMMARY | 2023-09-12 22:24 | External Medical Summary | Summary of Care ---
Author Name Unknown Organization [facility] Address [address] [place] [address] Phone [phone] Care Team Providers Care Tariff Compiler Name Role Phone Yaya Frederick MD Primary Care Provider [phone] Encounter Details Date Type Department Care Team (Latest Contact Info) Description 08/23/2023 11:40 AM EDT Telemedicine Nephrology, [facility] [address] [place] [address] Juno Christianson MD [address] [place] [address] Kidney disease, chronic, stage IV (GFR 15-29 ml/min) ([facility])*; Bilateral leg edema; Restless legs syndrome; residential current use of anticoagulant therapy; Cardiac pacemaker in situ; Hypervolemia, unspecified hypervolemia type Allergies Active Allergy Reactions Criticality Noted Date [...] as of this encounter (statuses as of 08/23/2023) Medications Medication Sig Dispensed Refills Start Date End Date Status BENADRYL 25 MG PO TABS 1 TABLET EVERY 4 TO 6 HOURS NEEDED 0 Active GRX ANALGESIC BALM EX OINT Apply topically to affected area. 0 3 Active Azelastine HCl 0.15 % Nasal SolutionIndications :Post-nasal discharge Administer into nostril 1 [place] in the morning AND 1 [place] before bedtime. 30 mL 0 2 Active Fexofenadine HCl 180 MG Oral Tablet (Lizzette) Take by mouth 1 Tablet daily as needed for Allergies. 90 Tablet 0 2 Active Ipratropium [place] 0.03 % Nasal Solution Administer into each nostril 2 Sprays 2 times a day as needed for Rhinitis. 30 mL 5 2 Active Warfarin Sodium 2.5 MG Oral TabletIndications:C hronic ischemic heart disease Up to one tablet daily as directed by the Anticoag clinic 100 Tablet 3 2 Active Metoprolol Succinate ER 100 MG Oral Tablet Extended Release 24 Hour (toPROL XL)Indications:Hype rtensive kidney disease with stage 3a chronic kidney disease (HCC) Take 1.5 Tablets (150 mg) by mouth in the morning and 1.5 Tablets (150 mg) before bedtime. 270 Tablet 3 2 Active Additional Information Patient taking differently: 100 mgOral BID (.AM/PM), Reported on 05/25/2023 oxygen IN GAS Use as directed. 2L at bedtime 0 Active Losartan Potassium 25 MG Oral Tablet (Cozaar) Take 0.5 Tablets by mouth in the morning. 0 3 Active Hydroxyurea 500 MG Oral Capsule (Hydrea)Indications :Essential thrombocythemia (HCC) Take 1 capsule by mouth 5 days a week 60 Capsule 5 3 Active Mometasone Furoate 50 MCG/ACT Nasal SuspensionIndicatio ns:Chronic seasonal allergic rhinitis due to pollen Administer 2 Sprays into each nostril in the morning. 51 g 3 3 Active busPIRone HCl 5 MG Oral Tablet (Buspar)Indications :Anxiety state Take 1 Tablet by mouth in the morning and 1 Tablet before bedtime. 20 Tablet 0 3 Active Rosuvastatin Calcium 20 MG Oral Tablet (Crestor)Indication s:NSTEMI (non-ST elevated myocardial infarction) ([facility]) Take 1 Tablet by mouth in the morning. 90 Tablet 3 3 Active Nitroglycerin 0.4 MG Sublingual Tablet Sublingual (Nitrostat)Indicati ons:NSTEMI (non-ST elevated myocardial infarction) ([facility]) Place 1 Tablet under the tongue as needed for Pain, Chest. May repeat 3 times. If chest pain continues, call 911. 25 Tablet 11 3 Active Additional Information Patient not taking.Reported on 08/01/2023 Probiotic Acidophilus Oral Capsule Take by mouth daily. 0 Active Torsemide 20 MG Oral Tablet (Demadex) Take 1 Tablet by mouth in the morning. 30 Tablet 3 3 Active Isosorbide Mononitrate ER 60 MG Oral Tablet Extended Release 24 Hour (Imdur)Indications: HFrEF (heart failure with reduced ejection fraction) ([facility]) Take 1 Tablet by mouth in the morning. 30 Tablet 3 3 Active Clopidogrel Bisulfate 75 MG Oral Tablet (pLAVix)Indications :HFrEF (heart failure with reduced ejection fraction) ([facility]) Take 1 Tablet by mouth in the morning. 30 Tablet 3 3 Active Famotidine 20 MG Oral Tablet (Pepcid) Take 1 Tablet by mouth in the morning. 30 Tablet 11 3 Active Docusate Sodium 100 MG Oral Capsule (Colace) Take 1 Capsule by mouth in the morning and 1 Capsule before bedtime. 60 Capsule 5 3 Active Senna 8.6 MG Oral Tablet Take 1 Tablet by mouth in the morning. 30 Tablet 5 3 Active Lactulose 10 GM/15ML Oral Solution (Constulose) Take 15 mL by mouth in the morning and 15 mL at noon and 15 mL before bedtime. 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 # [id number] Electrician'S Assistant: Wilda Serrano MD [phone] Type 2 diabetes mellitus wit h hemoglobin A1c goal of less than 7.0% 11/03/2006 08/15/2007 Overview: ICD-10 update of inactive term PURE HYPERCHOLESTEROLEM 11/03/200609/22 Overview: Per Lipid Taxonomy. 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 05/05/2006 01/23/2009 Overview: ICD-10 update of inactive term Anticoagulation management encounter 05/05/2006 10/03/2019 Unspecified viral infection, in conditions classified elsewhere and of unspecified site 06/08/2005 09/25/2007 Menopause 12/19/2001 12/27/2017 FEM STRESS INCONTINENCE 05/10/200111/23 documented as of this encounter (statuses as of 08/23/2023) Immunizations Name Administration Dates Next Due COVID-19 mRNA, LNP-s, No Pre serve, 2-Dose Series ([place]) 09/13/2021,01/05/2021,12/15/2020 Covid-19, Mrna, Lnp-s, Pf, B ivalent, [...] on file documented as of this encounter Progress Notes * Juno Christianson MD - 08/23/2023 11:45 AM EDT Patient location: HOME. I was in a hospital or clinic location. After connecting through televideo,patient was verified with two unique identifiers. 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 Methods to assure confidentiality were taken. Patient acknowledged consent and understanding of pr ivacy and security of the Telemedicine visit. The patient agreed to participate. NEPHROLOGY CLINIC NOTE - Follow Up 08/23/2023, 11:45 AM Patient Name: Shannon Cruz Chief Complaint: RADHA on CKD F/u Running Narrative/ HPI Patient was admitted to [facility], discharged on June 10 for NSTEMI and CHF exacerbation, during hospitalization was treated with Lasix drip. Losartan and Aldactone were held. Cardiac catheterization was considered but deferred given poor candidacy Was discharged on torsemide 20 mg, Imdur 60 mg, further hospital course was complicated ESBL UTI, treated with ertapenem. Patient also had a prior hospitalization in April with [place] , CVA Status of chronic issues Hyperlipidemia currently on Crestor CHF, coronary artery disease, currently on torsemide, Imdur . Aldactone, losartan held History of chronic Afib currently on warfarin Thrombocytopenia on hydroxyurea Sinus node dysfunction, status post dual chamber pacemaker Status post AVR, CABG in 2005 Recurrent urinary tract infections, followed up by Urology. Prior cystoscopy in 2020 suggestive of moderate cystitis, rectocele Restless leg syndrome not currently on meds ( previously tried lyrica) Patient has had fluctuating kidney function. Most recent creatinine 2.0. Albumin creatinine ratio 167 Interval History - 08/23/2023 No recent hospitalizations No NSAID use Patient denies any gross hematuria, dysuria, obstructive or irritative voiding complaints, flank pain. No nausea, vomiting ,diarrhea, chest pain, leg cramps or altered taste sensation of mouth Constipation + Past medical history/ past surgical history/ social history/ family history - reviewed Current medication list has been reviewed Current Outpatient Medications Medication Sig Dispense Refill BENADRYL 25 MG PO TABS 1 TABLET EVERY 4 TO 6 HOURS NEEDED GRX ANALGESIC BALM EX OINT Apply topically to affected area. Azelastine HCl 0.15 % Nasal Solution Administer into nostril 1 [place] in the morning AND 1 [place] before bedtime. 30 mL 0 Fexofenadine HCl 180 MG Oral Tablet (Lizzette) Take by mouth 1 Tablet daily as needed for Allergies.90 Tablet 0 Ipratropium [place] 0.03 % Nasal Solution Administer into each nostril 2 Sprays 2 times a day as needed for Rhinitis. 30 mL 5 Warfarin Sodium 2.5 MG Oral Tablet Up to one tablet daily as directed by the Anticoag clinic 100 Tablet 3 Metoprolol Succinate ER 100 MG Oral Tablet Extended Release 24 Hour (toPROL XL) Take 1.5 Tablets (150 mg) by mouth in the morning and 1.5 Tablets (150 mg) before bedtime. (Patient taking differently:Take 1 Tablet by mouth in the morning and 1 Tablet before bedtime.) 270 Tablet 3 oxygen IN GAS Use as directed. 2L at bedtime Losartan Potassium 25 MG Oral Tablet (Cozaar) Take 0.5 Tablets by mouth in the morning. Hydroxyurea 500 MG Oral Capsule (Hydrea) Take 1 capsule by mouth 5 days a week 60 Capsule 5 Mometasone Furoate 50 MCG/ACT Nasal Suspension Administer 2 Sprays into each nostril in the morning. 51 g 3 busPIRone HCl 5 MG Oral Tablet (Buspar) Take 1 Tablet by mouth in the morning and 1 Tablet before bedtime. 20 Tablet 0 Rosuvastatin Calcium 20 MG Oral Tablet (Crestor) Take 1 Tablet by mouth in the morning. 90 Tablet 3 Nitroglycerin 0.4 MG Sublingual Tablet Sublingual (Nitrostat) Place 1 Tablet under the tongue as needed for Pain, Chest. May repeat 3 times. If chest pain continues, call 911. (Patient not taking: Reported on 08/01/2023) 25 Tablet 11 Probiotic Acidophilus Oral Capsule Take by mouth daily. Torsemide 20 MG Oral Tablet (Demadex) Take 1 Tablet by mouth in the morning. 30 Tablet 3 Isosorbide Mononitrate ER 60 MG Oral Tablet Extended Release 24 Hour (Imdur) Take 1 Tablet by mouthin the morning. 30 Tablet 3 Clopidogrel Bisulfate 75 MG Oral Tablet (pLAVix) Take 1 Tablet by mouth in the morning. 30 Tablet 3 Famotidine 20 MG Oral Tablet (Pepcid) Take 1 Tablet by mouth in the morning. 30 Tablet 11 Docusate Sodium 100 MG Oral Capsule (Colace) Take 1 Capsule by mouth in the morning and 1 Capsule before bedtime. 60 Capsule 5 Senna 8.6 MG Oral Tablet Take 1 Tablet by mouth in the morning. 30 Tablet 5 No current facility-administered medications for this visit. ROS - All other review of systems were negative other than those documented in the interval history PHYSICAL EXAMINATION: There were no vitals filed for this visit. Limited physical examination as video visit Constitutional: awake, alert, no distress, home O2 @ 2 liter Head: atraumatic, normocephalic Eyes: no scleral icterus Neck: good range of motion Lungs: breathing non-labored, good respiratory effort Neuro: awake, alert, appropriately responsive Skin: nonicteric Psych: pleasant mood, cooperative RUE: good range of motion LUE: good range of motion LABS: Reviewed Recent Labs Units 08/17/23 1119 07/21/23 0924 07/07/23 1102 06/22/23 0929 SODIUM - [facility] mmol/L 141 143 142 145 POTASSIUM - [facility] mmol/L 3.9 3.4* 3.7 4.0 CHLORIDE - [facility] mmol/L 95* 98 95* 99 CO2 - [facility] mmol/L 34* 34* 33* 32 BUN - [facility] mg/dL 36* 41* 36* 46* CREATININE - [facility] mg/dL 1.8* 1.7* 1.5* 2.0* ESTIMATED GLOMERULAR FILTRATION RATE - [facility] mL/min 28* 28* 34* 24* Recent Labs Units 08/11/23 1223 07/21/23 0924 07/07/23 1102 WBC AUTO - [facility] K/uL 7.97 6.22 7.68 HGB - [facility] g/dL 11.2* 11.6* 11.7* PLATELET AUTO - [facility] K/uL 240 265 238 Recent Labs Units 08/17/23 1119 07/21/23 0924 07/07/23 1102 06/22/23 0929 05/15/23 1559 05/01/23 1338 03/22/23 0904 11/04/22 0945 CALCIUM - [facility] mg/dL 9.6 9.6 9.9 10.0 < > 9.7 < > 9.7 PHOSPHORUS - [facility] mg/dL -- -- -- -- -- 2.8 -- 3.0 25-HYDROXY VITAMIN D - [facility] ng/mL -- -- -- -- -- 69 -- 70 < > = values in this interval not displayed. No results for input(s): "HGBA1C" in the last 04666 hours. No results for input(s): "MICROALBUMIN", "PROCRRATIO" in the last 85689 hours. PERTINENT IMAGING INFO: Prior imaging reviewed ASSESSMENT AND PLAN # RADHA on CKD Likely in the setting of multiple RADHA with non recovery of kidney function. Possible cardiorenal syndrome, ? Interstitial nephritis, has had multiple urinary tract infections Remains volume overloaded on torsemide Restarted RAAS blockade, patient on lisinopril 12.5 mg daily Not a candidate for SGLT2 given recurrent urinary tract infections Kidney ultrasound reviewed Unable to tolerate Pepcid, switch back to Protonix Avoid milk of magnesium, oral magnesium supplementation ACR 167 # heart failure with reduced ejection fraction/ coronary artery disease Patient back on losartan, metoprolol, Imdur # Volume Overload - Weight trend reviewed. Currently on torsemide 20 mg daily Unable to tighter diuretics as video visit # Renal Osteodystrophy c/w holding vitamin d # Anemia - hemoglobin 11.2, monitor BP Readings from Last 3 Encounters: 08/01/23 108/74 08/01/23 118/64 07/17/23 114/72 Wt Readings from Last 3 Encounters: 08/01/23 78.5 kg (173 lb 1.6 oz) 08/01/23 78.5 kg (173 lb) 07/17/23 78 kg (172 lb) Trend reviewed as above Recommend the following actions to slow down the progression of CKD - Avoid NSAIDs, intravenous radiocontrast agents, phosphate- and magnesium- containing bowel preparations and laxatives, aminoglycoside antibiotics, and other nephrotoxins. - May use Tylenol and heat/ice packs prn pain - Continue statin po qhs Patient needs in-person visit We appreciate the opportunity of participating in Ms. Cruz's care. Follow Up: Return in about 2 months (around 10/23/2023). Juno Christianson MD Clinical Associate Nephrology, [address] [address] Note: I used my previous office note as a template to review, update and build this note documented in this encounter Plan of Treatment Upcoming Encounters Date Type Department Care Team (Late st Contact Info) Description 09/12/2023 11:20 AM EST Office Visit Family [address] [phone] Oneida Briggs PA-C [address] [place] [id number] 09/13/2023 5:30 PM EST Anticoagulation Pharmacy [address] [place] [phone] Pharmacist2, Mtm [address] [address] 10/02/2023 3:30 PM EST Office Visit Cardiology, [facility] [address] [facility] [place] [address] Bucky Calvo PA-C [address] [place] [address] 10/06/2023 10:40 AM EST Office Visit Otolaryngology [address] [place] [phone] Keely Tanner PA-C [address] [place] [address] 11/20/2023 1:40 PM EST Office Visit Family [facility] [address] [place] [phone] Yaya Frederick MD [address] [place] [address] 12/01/2023 2:15 PM EST Office Visit Hematology/Oncology [facility] [address] [facility] [place] [address] Agustín Sullivan MD [address] [facility] [place] [address] 08/16/2024 11:00 AM EDT Cardiac Studies [facility], [facility] [place] [address] [place] [facility] [address] [place] [address] Scheduled Orders Name Type Priority Associated Diagnoses Orde r Schedule BASIC METABOLIC PANEL Lab Routine Kidney disease, chronic, stage IV (GFR 15-29 ml/min) ([facility]) Expected: 08/30/2023, Expires: 11/23/2023 MAGNESIUM Lab Routine Kidney disease, chronic, stage IV (GFR 15-29 ml/min) ([facility]) Expected: 08/30/2023, Expires: 08/23/2024 Health Maintenance Due Date Last Done Comments Zoster Vaccines (1 of 2) 1954 Hepatitis B (1 of 3 - Risk 3-dose series) 1996 COVID-19 Vaccine ( season) 2023 09/29/2022, 09/13/2021, 01/05/2021, Additional history exists Depression Screening 02/09/2024 02/08/2023 CKD PHOS USE SMARTSET 76908 05/01/202404/22, 11/04/2022, 02/14/2019 Albumin/Creatinine Ratio 06/15/2024 023, 05/01/2023, 07/04/2022, Additional history exists CKD HGB USE SMARTSET [id number] 08/11/202408/11, 08/11/2023, 07/21/2023, Additional history exists DXA Scan 11/09/2024 11/09/2022, 01/21, 11/03/2015, Additional history exists DTaP,Tdap,and Td Vaccines (3 - Td or Tdap) 06/04/2029 06/04/2019, 01/28/2019, 05/26/2008 Pneumococcal Vaccine: 65+ Years Completed 05/24/2016, 11/14/2001 VITAMIN D LEVEL ONCE IN A LIFETIME-USE SMARTSET# [id number] Completed 05/01/2023, 11/04/2022, 02/14/2019, Additional history exists [...] as of this encounter Visit Diagnoses Diagnosis Kidney disease, chronic, stage IV (GFR 15-29 ml/min) (HCC)- Primary Chronic kidney disease, Stage IV (severe) Bilateral leg edema Edema Restless legs syndrome Restless legs syndrome (RLS) residential current use of anticoagulant therapy Cardiac pacemaker in situ Hypervolemia, unspecified hypervolemia type documented in this encounter Additional Health Concerns Infection Onset Date Last Indicated Resolved Time Varicella zoster 08/01/2022 08/01/2022 documented as of this encounter Care Teams Tariff Compiler Relationship Specialty Start Date End Date Yaya Frederick MD [address] [place] [phone] PCP - General Family Medicine 05/04/21 documented as of this encounter
--- OUTSIDE RECORDS SUMMARY | 2023-09-12 22:24 | External Medical Summary | Summary of Care ---
Author Name Unknown Organization [facility] Address [address] [place] [address] Phone [phone] Care Team Providers Care Door Assembler Name Role Phone Yaya Obando MD Primary Care Provider [phone] Reason for Visit * Reason Onset Date Comments Medication Refill 08/27/2023 Encounter Details Date Type Department Care Team ([facility] st Contact Info) Description 08/27/[address] [phone] Misty Calzada MD [address] [facility] [place] [address] Allergies Active Allergy Reactions Criticality Noted Date [...] as of this encounter (statuses as of 08/30/2023) Medications Medication Sig Dispensed Refills Start Date End Date Status BENADRYL 25 MG PO TABS 1 TABLET EVERY 4 TO 6 HOURS NEEDED 0 Active GRX ANALGESIC BALM EX OINT Apply topically to affected area. 0 07/01/2013 Active Azelastine HCl 0.15 % Nasal SolutionIndications: Post-nasal discharge Administer into nostril 1 Morley in the morning AND 1 Morley before bedtime. 30 mL 0 11/30/2021 Active Ipratropium [place] 0.03 % Nasal Solution Administer into each nostril 2 Sprays 2 times a day as needed for Rhinitis. 30 mL 5 02/23/2022 Active Warfarin Sodium 2.5 MG Oral TabletIndications:Ch [...] Tablet (Crestor)Indications :NSTEMI (non-ST elevated myocardial infarction) (HCC) Take 1 Tablet by mouth in the morning. 90 Tablet 3 05/18/2023 Active Nitroglycerin 0.4 MG Sublingual Tablet Sublingual (Nitrostat)Indicatio ns:NSTEMI (non-ST elevated myocardial infarction) ([facility]) Place 1 Tablet under the tongue [...] FrEF (heart failure with reduced ejection fraction) ([facility]) Take 1 Tablet by mouth in the morning. 30 Tablet 3 07/03/2023 Active Clopidogrel Bisulfate 75 MG Oral Tablet (pLAVix)Indications: HFrEF (heart failure with reduced ejection fraction) ([facility]) Take 1 Tablet by mouth in [...] for Allergies. 90 Tablet 1 08/30/2023 Active Fexofenadine HCl 180 MG Oral Tablet (Lizzette) Take by mouth 1 Tablet daily as needed for Allergies. 90 Tablet 0 01/21/2022 08/27/20 23 Discontinu ed(Refill) Losartan Potassium 25 MG Oral Tablet (Cozaar) Take 0.5 Tablets by mouth in the morning. 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 # [id number] Bait Painter: Wilda Serrano MD [phone] Type 2 diabetes mellitus wit h hemoglobin A1c goal of less than 7.0% 11/03/2006 08/15/2007 Overview: ICD-10 update of inactive term PURE HYPERCHOLESTEROLEM 11/03/200609/22 Overview: Per Lipid Taxonomy. 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 05/05/2006 01/23/2009 Overview: ICD-10 update of inactive term Anticoagulation management encounter 05/05/2006 10/03/2019 Unspecified viral infection, in conditions classified elsewhere and of unspecified site 06/08/2005 09/25/2007 Menopause 12/19/2001 12/27/2017 FEM STRESS INCONTINENCE 05/10/200111/23 documented as of this encounter (statuses as of 08/30/2023) Immunizations Name Administration Dates Next Due COVID-19 mRNA, LNP-s, No Pre serve, 2-Dose Series ([employer]) 09/13/2021,01/05/2021,12/15/2020 Covid-19, Mrna, Lnp-s, Pf, B ivalent, [...] encounter Miscellaneous Notes * Telephone Encounter - Yaya Obando MD - 08/30/2023 2:58 PM ESTSigned Prescriptions: Disp Refills Fexofenadine HCl 60 MG Oral Tablet (Allegr*90 Tab*1 Sig: Take 1 Tablet by mouth daily as needed for Allergies. Authorizing Provider: YAYA OBANDO * Telephone Encounter - Nina Arias RPh - 08/28/2023 2:24 PM ESTPending Prescriptions: Disp Refills Fexofenadine HCl 60 MG Oral Tablet (Allegr*90 Tab*1 Sig: Take 1 Tablet by mouth daily as needed for Allergies. * Telephone Encounter - Nina Arias RPh - 08/28/2023 2:20 PM EST Recommend decreased dose on fexofenadine based on patient's renal function. Per UpToDate: eGFR 10 to <50 mL/minute/1.73 m2: Oral: 60 mg every 12 to 24 hours. Pended new prescription as per guidelines. Pending Prescriptions: Disp Refills Fexofenadine HCl 60 MG Oral Tablet (Alleg*90 Tab*1 Sig: Take 1 Tablet by mouth daily as needed for Allergies. Please approve if appropriate and route back to me to advise patient. Thanks, Nina Arias PharmD Clinical Pharmacist [facility]) [phone] 08/28/2023, 2:23 PM documented in this encounter Plan of Treatment Upcoming Encounters Date Type Department Care Team ([facility] st Contact Info) Description 09/12/2023 11:20 AM EST Office Visit Family [address] [phone] Oneida Briggs PA-C [address] [place] [address] [place] [address] 09/13/2023 5:30 PM EST Anticoagulation Pharmacy [address] [phone] Pharmacist2, [facility] [address] [place] [address] 10/02/2023 3:30 PM EST Office Visit Cardiology, [facility] [address] [facility] [place] [address] Bucky Calvo PA-C [address] [place] [address] 10/06/2023 10:40 AM EST Office Visit Otolaryngology [address] [place] [phone] Keely Tanner PA-C [address] [place] [address] 10/25/2023 10:40 AM EST Office Visit Nephrology [address] [place] [phone] Alfa Holcomb MD [address] [place] [address] 11/20/2023 1:40 PM EST Office Visit Family Practice [address] [phone] Yaya Obando MD [address] [place] [address] 12/01/2023 2:15 PM EST Office Visit Hematology/Oncology [facility] [address] [place] [address] Agustín Sullivan MD [address] [place] [address] 08/16/2024 11:00 AM EDT Cardiac Studies Cardiology, [facility] [address] [facility] [place] [address] [facility] [address] [place] [address] Health Maintenance Due Date Last Done Comments Zoster Vaccines (1 of 2) 1954 Hepatitis B (1 of 3 - Risk 3-dose series) 1996 COVID-19 Vaccine ( season) 2023 09/29/2022, 09/13/2021, 01/05/2021, Additional history exists Depression Screening 02/09/2024 02/08/2023 CKD PHOS USE SMARTSET 28480 05/01/202404/22, 11/04/2022, 02/14/2019 Albumin/Creatinine Ratio 06/15/2024 023, 05/01/2023, 07/04/2022, Additional history exists CKD HGB USE SMARTSET 84526 08/29/202408/29, 08/29/2023, 08/11/2023, Additional history exists DXA Scan 11/09/2024 11/09/2022, 01/21, 11/03/2015, Additional history exists DTaP,Tdap,and Td Vaccines (3 - Td or Tdap) 06/04/2029 06/04/2019, 01/28/2019, 05/26/2008 Pneumococcal Vaccine: 65+ Years Completed 05/24/2016, 11/14/2001 VITAMIN D LEVEL ONCE IN A LIFETIME-USE SMARTSET# 85051 Completed 05/01/2023, 11/04/2022, 02/14/2019, Additional history exists [...] documented as of this encounter Care Teams Door Assembler Relationship Specialty Start Date End Date Yaya Obando MD [address] [place] [address] PCP - General Family Medicine 05/04/21 documented as of this encounter
--- OUTSIDE RECORDS SUMMARY | 2023-09-12 22:24 | External Medical Summary ---
Author Name Unknown Address Unknown Organization K01:[facility] - [address] [place] [address] Laboratory Report Ordering Provider Test Date Status OJ CHUNG 08/29/2023 12:38:37 Final Observation Date Value Abnormality Reference (Units ) Status Magnesium 08/29/2023 12:38:37 2.3 1.5-2.6 (m g/dL) Final Performing Location [facility] - [address] [place] [id number]
--- OUTSIDE RECORDS SUMMARY | 2023-09-12 22:24 | External Medical Summary | Summary of Care ---
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 30 mL 0 2 Active Fexofenadine HCl 180 MG Oral Tablet (Lizzette) Take by mouth 1 Tablet daily as needed for Allergies. 90 Tablet 0 2 Active Ipratropium [place] 0.03 % Nasal Solution Administer into each [...] Tablet (Crestor)Indication s:NSTEMI (non-ST elevated myocardial infarction) ([facility]) Take 1 Tablet by mouth in the morning. 90 Tablet 3 3 Active Nitroglycerin 0.4 MG Sublingual Tablet Sublingual (Nitrostat)Indicati ons:NSTEMI (non-ST elevated myocardial infarction) ([facility]) Place 1 Tablet under the tongue as [...] HFrEF (heart failure with reduced ejection fraction) ([facility]) Take 1 Tablet by mouth in the morning. 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 # [id number] Finish Filer: Wilda Serrano MD [phone] Type 2 diabetes mellitus wit h hemoglobin A1c goal of less than 7.0% 11/03/2006 08/15/2007 Overview: ICD-10 update of inactive term PURE HYPERCHOLESTEROLEM 11/03/200609/22 Overview: Per Lipid Taxonomy. 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 05/05/2006 01/23/2009 Overview: ICD-10 update of inactive term Anticoagulation management encounter 05/05/2006 10/03/2019 Unspecified viral infection, in conditions classified elsewhere and of unspecified site 06/08/2005 09/25/2007 Menopause 12/19/2001 12/27/2017 FEM STRESS INCONTINENCE 05/10/200111/23 documented as of this encounter (statuses as of 08/30/2023) Immunizations Name Administration Dates Next Due COVID-19 mRNA, LNP-s, No Pre serve, 2-Dose Series ([employer]) 09/13/2021,01/05/2021,12/15/2020 Covid-19, Mrna, Lnp-s, Pf, B ivalent, 30 Mcg, IM, 12 yrs and above (Pfizer) 09/29/2022 H1N1 2009 Influenza, IM 10/08/2009 Pneumococcal Conjugate Vacc, 13 Valent (Prevnar) 05/24/2016 Pneumococcal Polysaccharide PPV23 (Pneumovax) 11/14/2001 SEASONAL INFLUENZA, PF, 6 M & Above, IM , (FLULAVAL or FLUZONE) 07/30/2018,08/29/2017 Season Influenza, Quad, PF, Adjuvanted, 65+ Yrs, IM (FLUAD) 08/03/2020 Seasonal Influenza Virus Vac cine, Unspecified Formulation 07/19/2021,08/03/2020,07/23/2019,05/2018,08/29/2017,07/28/2016,07/05/20 16,07/07/2014,07/22/2013,07/03/2012,0 07/12/2011,07/21/2010,09/12/2009,08/04,07/23/2007,08/02/2006, 5,08/14/2003,10/01/2001 Seasonal Influenza, Quadriva lent Hd (Fluzone Hd) 06/30/2023,07/04/2022,07/19/2021 Seasonal Influenza, Quadriva lent, No Preserve, IM 07/28/2016,07/05/2016,08/05/2015 07/28/2017 Seasonal Influenza, Split, I IV3, With Preserve, Inj 07/07/2014,07/22/2013,07/03/2012,06/24,07/21/2010,09/12/2009,08/04/20 08,07/23/2007,08/02/2006,08/23/2005,1 ,10/01/2001 Seasonal Influenza, Trivalen t, Adjuvanted, 65+ yrs [...] two unique identifiers. 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 Losartan and Aldactone were held. Cardiac catheterization was considered but deferred given poor candidacy Was discharged on torsemide 20 mg, Imdur 60 mg, further hospital course was complicated ESBL UTI, treated with ertapenem. Patient also had a prior hospitalization in April with [place] , CVA Status of chronic issues Hyperlipidemia [...] % Nasal Solution Administer into nostril 1 [place] in the morning AND 1 [place] before bedtime. 30 mL 0 Fexofenadine HCl 180 MG Oral Tablet (Lizzette) Take by mouth 1 Tablet daily as needed for Allergies.90 Tablet 0 Ipratropium [place] 0.03 % Nasal Solution Administer into each [...] results for input(s): "HGBA1C" in the last 42182 hours. No results for input(s): "MICROALBUMIN", "PROCRRATIO" in the last 44115 hours. PERTINENT IMAGING INFO: Prior imaging reviewed ASSESSMENT AND PLAN # RADHA on CKD Likely in the setting of multiple RADHA with non recovery of kidney function. Possible cardiorenal syndrome, ? Interstitial nephritis, has had multiple urinary tract infections Remains volume overloaded on torsemide Restarted RAAS blockade, patient on losartan 12.5 mg daily Not a candidate for [...] 10/23/2023). Juno Christianson MD Clinical Associate Nephrology, [address] [address] Note: I used my previous office note as a template to review, update and build this note documented in this encounter Plan of Treatment Upcoming Encounters Date Type Department Care Team (Late st Contact Info) Description 09/12/2023 11:20 AM EST Office Visit [facility] [address] [place] [phone] Oneida Briggs PA-C [address] [place] [address] 09/13/2023 5:30 PM EST Anticoagulation Pharmacy [address] [phone] Pharmacist2, [facility] [address] [address] 10/02/2023 3:30 PM EST Office Visit Cardiology, [facility] [address] [place] [address] Bucky Calvo PA-C [address] [place] [address] 10/06/2023 10:40 AM EST Office Visit Otolaryngology [address] [place] [phone] Keely Tanner PA-C [address] [place] [address] 10/25/2023 10:40 AM EST Office Visit Nephrology [address] [phone] Alfa Holcomb MD [address] [facility] [place] [address] 11/20/2023 1:40 PM EST Office Visit Family Practice [address] [phone] Yaya Frederick MD [address] [place] [address] 12/01/2023 2:15 PM EST Office Visit Hematology/Oncology [facility] [address] [place] [address] Agustín Sullivan MD [address] [place] [address] 08/16/2024 11:00 AM EDT Cardiac Studies Cardiology, [facility] [address] [place] [address] [facility] [address] [place] [address] Health Maintenance Due Date Last Done Comments Zoster Vaccines (1 of 2) 1954 Hepatitis B (1 of 3 - Risk 3-dose series) 1996 COVID-19 Vaccine ( season) 2023 09/29/2022, 09/13/2021, 01/05/2021, Additional history exists Depression Screening 02/09/2024 02/08/2023 CKD PHOS USE SMARTSET 60109 05/01/202404/22, 11/04/2022, 02/14/2019 Albumin/Creatinine Ratio 06/15/2024 023, 05/01/2023, 07/04/2022, Additional history exists CKD HGB USE SMARTSET 68442 08/29/202408/29, 08/29/2023, 08/11/2023, Additional history exists DXA Scan 11/09/2024 11/09/2022, 01/21, 11/03/2015, Additional history exists DTaP,Tdap,and Td Vaccines (3 - Td or Tdap) 06/04/2029 06/04/2019, 01/28/2019, 05/26/2008 Pneumococcal Vaccine: 65+ Years Completed 05/24/2016, 11/14/2001 VITAMIN D LEVEL ONCE IN A LIFETIME-USE SMARTSET# 04138 Completed 05/01/2023, 11/04/2022, 02/14/2019, Additional history exists Influenza Vaccine (FLU shot) Completed 05/2023, 07/04/2022, 07/19/2021, Additional history exists GARDASIL-HPV IMMUNIZATION SERIES Aged Out No longer eligible based on patient's age to complete this topic MENINGOCOCCAL (MENACTRA/MENVEO) Aged Out No longer eligible based on patient's age to complete this topic documented as of this encounter Medical Devices Not on filedocumented as of this encounter Results * MAGNESIUM (08/29/2023 12:38 PM EST) Magnesium 2.3 1.5 - 2.6 mg/dL 08/30/2023 2:11 AM EST [facility] Blood Venous blood specimen / Unknown Venipuncture / Unknown 08/29/2023 12:38 PM EST 08/29/2023 12:38 PM EST Juno Christianson MD LAB BLOOD ORDERABLES [facility] [address] [place] [address] * (ABNORMAL) BASIC METABOLIC PANEL (08/29/2023 12:38 PM EST) BUN 41(H) 6 - 20 mg/dL 08/30/2023 2:11 AM EST [facility] Creatinine 1.9(H) 0.5 - 1.0 mg/dL 08/30/2023 2:11 AM EST [facility] Estimated Glomerular Filtration Rate 25(L) >=60 mL/min 08/30/2023 2:11 AM EST [facility] Comment:eGFR is calculated b ased on the CKD-EPI 2020 equation Sodium 144 135 - 146 mmol/L 08/30/2023 2:11 AM EST [facility] Potassium 3.8 3.5 - 5.1 mmol/L 08/30/2023 2:11 AM EST [facility] Chloride 98 98 - 107 mmol/L 08/30/2023 2:11 AM EST [facility] CO2 34(H) 22 - 32 mmol/L 08/30/2023 2:11 AM EST [facility] Anion Gap 12 7 - 15 mmol/L 08/30/2023 2:11 AM EST [facility] Glucose 105 70 - 120 mg/dL 08/30/2023 2:11 AM EST [facility] Calcium 9.7 8.4 - 10.2 mg/dL 08/30/2023 2:11 AM EST [facility] Blood Venous blood specimen / Unknown Venipuncture / Unknown 08/29/2023 12:38 PM EST 08/29/2023 12:38 PM EST Juno Christianson MD LAB BLOOD ORDERABLES [facility] [address] [place] [address] documented in this encounter Visit Diagnoses Diagnosis Kidney disease, chronic, stage IV (GFR 15-29 ml/min) (HCC)- Primary Chronic kidney disease, Stage IV (severe) Bilateral leg edema Edema Restless legs syndrome Restless legs syndrome (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
--- OUTSIDE RECORDS SUMMARY | 2023-09-12 22:24 | External Medical Summary ---
Author Name Unknown Address Unknown Organization K01:[facility] [place] - [address] [facility] [place] [id number] Laboratory Report Ordering Provider Test Date Status JER FITCH 08/29/2023 12:38:37 Final Observation Date Value Abnormality Reference (Units ) Status SYNC LEUKOCYTES IN BLOOD BY AUTOMATED COUNT 08/29/2023 12:38:37 6.71 4.00-10.80 (K/uL) Final Segs 08/29/2023 12:38:37 71.3 40.0-75.0 (%) Final Lymphs % 08/29/2023 12:38:37 10.4 Below low normal 18.0-42.0 (%) Final Monos 08/29/2023 12:38:37 13.1 Above high normal 1.0-11.0 (%) Final Eosinophils 08/29/2023 12:38:37 3.9 0.0-6.0 (%) Final Basos 08/29/2023 12:38:37 0.7 0.0-2.0 (%) Final Immature Granulocyte, Percent 08/29/2023 12:38:37 0.6 0.0-2.0 (%) Final Absolute Segs 08/29/2023 12:38:37 4.78 1.80-7.70 (K/uL) Final Lymphs, absolute 08/29/2023 12:38:37 0.70 Below low normal 1.00-4.80 (K/ul) Final Monos, Abs 08/29/2023 12:38:37 0.88 0.00-1.10 (K/uL) Final Eos, Abs 08/29/2023 12:38:37 0.26 0.00-0.70 (K/uL) Final Basos, Abs 08/29/2023 12:38:37 0.05 0.00-0.20 (K/uL) Final Immature Granulocytes, Number 08/29/2023 12:38:37 0.04 0.00-0.20 (K/uL) Final Performing Location [facility]ORY [facility] [place] - [address] [facility] [address]
--- OUTSIDE RECORDS SUMMARY | 2023-09-12 22:24 | External Medical Summary ---
Author Name Unknown Address Unknown Organization K01:[facility] - [facility] [address] [place] [id number] Laboratory Report Ordering Provider Test Date Status JER FITCH 08/29/2023 12:38:37 Final Observation Date Value Abnormality Reference (Units ) Status WBC, Total 08/29/2023 12:38:37 6.71 4.00-10.80 (K/uL) Final RBC 08/29/2023 12:38:37 3.16 3.85-5.15 (M/uL) Final Hemoglobin 08/29/2023 12:38:37 10.8 Below low normal 12.0-15.3 (g/dL) Final HCT 08/29/2023 12:38:37 36.6 36.0-45.2 (%) Final MCV 08/29/2023 12:38:37 115.8 81.5-97.5 (fL) Final MCH 08/29/2023 12:38:37 34.2 27.0-34.0 (pg) Final MCHC 08/29/2023 12:38:37 29.5 32.0-36.0 (g/dL) Final RDW 08/29/2023 12:38:37 17.1 11.5-15.5 (%) Final Platelets 08/29/2023 12:38:37 259 140-400 (K/uL) Final MPV 08/29/2023 12:38:37 11.4 6.6-11.1 (fL) Final Nucleated erythrocytes/100 leukocytes [Ratio] in Blood by Automated count 08/29/2023 12:38:37 0 <=0 (/100 WBCs) Final Performing Location LAB[facility]ATORY [facility] [place] - [address] [place] [id number]
--- OUTSIDE RECORDS SUMMARY | 2023-09-12 22:24 | External Medical Summary | Summary of Care ---
Author Name Unknown Organization [facility] Address [address] [facility] [place] [address] Phone [phone] Care Team Providers Care Ux Developer Name Role Phone Yaya Frederick MD Primary Care Provider [phone] Reason for Visit * Reason Onset Date Comments Test Results Lab 08/14/2023 Encounter Details Date Type Department Care Team (Late st Contact Info) Description 08/14/2023 Telephone [facility] [address] [place] [address] Agustín Sullivan MD [address] [place] [address] Test Results Lab Allergies Active Allergy Reactions [...] as of this encounter (statuses as of 08/18/2023) Medications Medication Sig Dispensed Refills Start Date End Date Status BENADRYL 25 MG PO TABS 1 TABLET EVERY 4 TO 6 HOURS NEEDED 0 Active MAG-OXIDE 400 MG PO TABSIndications:Chron ic ischemic heart disease one tablet twice a day 60 Tab 5 01/05/2011 Active Additional Information Patient taking differently: 400 mgOralDaily(AM), Reported on 11/21/2022 GRX ANALGESIC BALM EX OINT Apply topically to affected area. 0 07/01/2013 Active Azelastine HCl 0.15 % Nasal SolutionIndications:P ost-nasal discharge Administer into nostril 1 [place] in the morning AND 1 [place] before bedtime. 30 mL 0 11/30/2021 Active Fexofenadine HCl 180 MG Oral Tablet (Lizzette) Take by mouth 1 Tablet daily as needed for Allergies. 90 Tablet 0 01/21/2022 Active Ipratropium [place] 0.03 % Nasal Solution Administer into each [...] by mouth in the morning. 0 05/09/2023 Active Hydroxyurea 500 MG Oral Capsule (Hydrea)Indications:E [...] Tablet (Crestor)Indications: NSTEMI (non-ST elevated myocardial infarction) ([facility]) Take 1 Tablet by mouth in the morning. 90 Tablet 3 05/18/2023 Active Nitroglycerin 0.4 MG Sublingual Tablet Sublingual (Nitrostat)Indication s:NSTEMI (non-ST elevated myocardial infarction) ([facility]) Place 1 Tablet under the tongue as [...] rEF (heart failure with reduced ejection fraction) ([facility]) Take 1 Tablet by mouth in the morning. 30 Tablet 3 07/03/2023 Active Clopidogrel Bisulfate 75 MG Oral Tablet (pLAVix)Indications:H FrEF (heart failure with reduced ejection fraction) ([facility]) Take 1 Tablet by mouth in the [...] the morning. 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 # [id number] Manager Voice: Wilda Serrano MD [phone] Type 2 diabetes mellitus wit h hemoglobin A1c goal of less than 7.0% 11/03/2006 08/15/2007 Overview: ICD-10 update of inactive term PURE HYPERCHOLESTEROLEM 11/03/200609/22 Overview: Per Lipid Taxonomy. 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 current use of ant icoagulant therapy 05/05/2006 01/23/2009 Overview: ICD-10 update of inactive term Anticoagulation management encounter 05/05/2006 10/03/2019 Unspecified viral infection, in conditions classified elsewhere and of unspecified site 06/08/2005 09/25/2007 Menopause 12/19/2001 12/27/2017 FEM STRESS INCONTINENCE 05/10/200111/23 documented as of this encounter (statuses as of 08/18/2023) Immunizations Name Administration Dates Next Due COVID-19 mRNA, LNP-s, No Pre serve, 2-Dose Series ([employer]) 09/13/2021,01/05/2021,12/15/2020 Covid-19, Mrna, Lnp-s, Pf, B ivalent, 30 Mcg, IM, 12 yrs and above (Pfizer) 09/29/2022 H1N1 2009 Influenza, IM 10/08/2009 Pneumococcal Conjugate Vacc, 13 Valent (Prevnar) 05/24/2016 Pneumococcal Polysaccharide PPV23 (Pneumovax) 11/14/2001 SEASONAL INFLUENZA, PF, 6 M & Above, IM , (FLULAVAL or FLUZONE) 07/30/2018,08/29/2017 Season Influenza, Quad, PF, Adjuvanted, 65+ Yrs, IM (FLUAD) 08/03/2020 Seasonal Influenza Virus Vac cine, Unspecified Formulation 07/19/2021,08/03/2020,07/23/2019,10/0 05/2018,08/29/2017,07/28/2016,07/05/20 16,07/07/2014,07/22/2013,07/03/2012,0 07/12/2011,07/21/2010,09/12/2009,08/04,07/23/2007,08/02/2006, 5,08/14/2003,10/01/2001 Seasonal Influenza, Quadriva lent Hd (Fluzone Hd) 06/30/2023,07/04/2022,07/19/2021 Seasonal Influenza, Quadriva lent, No Preserve, IM 07/28/2016,07/05/2016,08/05/2015 07/28/2017 Seasonal Influenza, Split, I IV3, With Preserve, Inj 07/07/2014,07/22/2013,07/03/2012,09/,07/21/2010,09/12/2009,08/04/20 08,07/23/2007,08/02/2006,08/23/2005,1 ,10/01/2001 Seasonal Influenza, Trivalen t, Adjuvanted, [...] encounter Miscellaneous Notes * Telephone Encounter - Rossy Correia OSA - 08/18/2023 1:25 PM EDT Already aware. We do not have any sooner openings at this time. * Telephone Encounter - Magi Ball LPN - 08/14/2023 10:02 AM EDT Notified patient of lab results, patient verbalizes understanding. Cardiology: Patient would like to speak to cardiology office about sooner appointment, notified patient that with us being hematology and not cardiology, I will send a message to their office to notify. ----- Message from Agustín Sullivan MD sent at 08/13/2023 4:19 PM EDT ----- Blood workup done on 08/11/2023: - WBC 7900, H&H of 11.2/35.9, platelet count 240,000. She is a case of essential thrombocythemia, JAK2 mutation positive Slight drop in the hemoglobin level noted, platelet count has remained in the normal range. Currently on hydroxyurea at 500 mg 5 days a week and continue hydroxyurea at the same dose. Repeat CBCD in about 3 month's time. documented in this encounter Plan of Treatment Upcoming Encounters Date Type Department Care Team ([facility] st Contact Info) Description 08/23/2023 11:40 AM EDT Telemedicine Nephrology, [place] [address] [place] [address] Juno Christianson MD [address] [place] [address] 09/12/2023 11:20 AM EST Office Visit [address] [phone] Oneida Briggs PA-C [address] [place] [address] 09/13/2023 5:30 PM EST Anticoagulation Pharmacy [address] [phone] Pharmacist2, [facility] [address] [address] 10/06/2023 10:40 AM EST Office Visit Otolaryngology [address] [place] [phone] Keely Tanner PA-C [address] [place] [address] 11/20/2023 1:40 PM EST Office Visit [facility] [address] [place] [phone] Yaya Frederick MD [address] [place] [address] 12/01/2023 2:15 PM EST Office Visit [facility] [address] [facility] [place] [address] Agustín Sullivan MD [address] [facility] [place] [address] 12/04/2023 2:30 PM EST Office Visit Cardiology, [facility] [address] [facility] [place] [address] Bucky Calvo PA-C [address] [place] [address] 08/16/2024 11:00 AM EDT Cardiac Studies Cardiology, [facility] [address] [facility] [place] [address] [facility] [address] [facility] [address] Scheduled Orders Name Type Priority Associated Diagnoses Orde r Schedule CBC WITH WBC DIFFERENTIAL Lab STAT Essential thrombocythemia (HCC) Expected: 11/14/2023 (Approximate), Expires: 08/14/2024 Health Maintenance Due Date Last Done Comments Zoster Vaccines (1 of 2) 1954 Hepatitis B (1 of 3 - Risk 3-dose series) 1996 COVID-19 Vaccine ( season) 2023 09/29/2022, 09/13/2021, 01/05/2021, Additional history exists Depression Screening 02/09/2024 02/08/2023 CKD PHOS USE SMARTSET 31002 05/01/2024 07/, 11/04/2022, 02/14/2019 Albumin/Creatinine Ratio 06/15/2024 023, 05/01/2023, 07/04/2022, Additional history exists CKD HGB USE SMARTSET 08106 08/11/202408/11, 08/11/2023, 07/21/2023, Additional history exists DXA Scan 11/09/2024 11/09/2022, 01/21, 11/03/2015, Additional history exists DTaP,Tdap,and Td Vaccines (3 - Td or Tdap) 06/04/2029 06/04/2019, 01/28/2019, 05/26/2008 Pneumococcal Vaccine: 65+ Years Completed 05/24/2016, 11/14/2001 VITAMIN D LEVEL ONCE IN A LIFETIME-USE SMARTSET# 39632 Completed 05/01/2023, 11/04/2022, 02/14/2019, Additional history exists [...] as of this encounter Visit Diagnoses Diagnosis Essential thrombocythemia (HCC)- Primary Essential thrombocythemia documented in this encounter Additional Health Concerns Infection Onset Date Last Indicated Resolved Time Varicella zoster 08/01/2022 08/01/2022 documented as of this encounter Care Teams Ux Developer Relationship Specialty Start Date End Date Yaya Frederick MD [address] [place] [address] PCP - General Family Medicine 05/04/21 documented as of this encounter
--- OUTSIDE RECORDS SUMMARY | 2023-09-12 22:24 | External Medical Summary ---
Author Name Unknown Address Unknown Organization K01:LABORATORY [facility] [place] [facility] [place] [facility] [place] [address] Laboratory Report Ordering Provider Test Date Status OJ CHUNG 08/29/2023 12:38:37 Final Has to be done same day/time as BMP Observation Date Value Abnormality Reference (Units ) Status BUN 08/29/2023 12:38:37 41 Above high normal 6-20 (mg/dL) Final Creatinine 08/29/2023 12:38:37 1.9 Above high normal 0.5-1.0 (mg/dL) Final Glomerular filtration rate/1.73 sq M.predicted [Volume Rate/Area] in Serum, Plasma or Blood by Creatinine-based formula (CKD-EPI) 08/29/2023 12:38:37 25 Below low normal >=60 (mL/min) Final eGFR is calculated based on the CKD-EPI 2020 equation SODIUM 08/29/2023 12:38:37 144 135-146 (m mol/L) Final Potassium 08/29/2023 12:38:37 3.8 3.5-5.1 (m mol/L) Final Cl 08/29/2023 12:38:37 98 98-107 (mm ol/L) Final CO2 08/29/2023 12:38:37 34 Above high normal 22 -32 (mmol/L) Final Anion gap 08/29/2023 12:38:37 12 7-15 (mmol /L) Final Glucose 08/29/2023 12:38:37 105 70-120 (mg /dL) Final Calcium 08/29/2023 12:38:37 9.7 8.4-10.2 ( mg/dL) Final Performing Location LABORATORY [facility] - [address] [place] [address]
--- OUTSIDE RECORDS SUMMARY | 2023-09-12 22:24 | External Medical Summary | Summary of Care ---
Author Name Unknown Organization [facility] Address [address] [place] [address] Phone [phone] Care Team Providers Care Night Auditor Name Role Phone Yaya Frederick MD Primary Care Provider [phone] Reason for Visit * Reason Onset Date Comments Encounter Created in Error 05/30/2023 Encounter Details Date Type Department Care Team ([facility] st Contact Info) Description 05/30/[address] [facility] [address] [place] [address] Yaya Frederick MD [address] [place] [address] Encounter Created in Error Allergies Active Allergy Reactions Criticality Noted Date [...] as of this encounter (statuses as of 08/29/2023) Medications Medication Sig Dispensed Refills Start Date End Date Status BENADRYL 25 MG PO TABS 1 TABLET EVERY 4 TO 6 HOURS NEEDED 0 Active GRX ANALGESIC BALM EX OINT Apply topically to affected area. 0 3 Active Azelastine HCl 0.15 % Nasal SolutionIndications :Post-nasal discharge Administer into nostril 1 [place] in the morning AND 1 [place] before bedtime. 30 mL 0 2 Active Fexofenadine HCl 180 MG Oral Tablet (Lizzette) Take by mouth 1 Tablet daily as needed for Allergies. 90 Tablet 0 2 Active Ipratropium Laval[place] 0.03 % Nasal Solution Administer into each nostril 2 Sprays 2 times a day as needed for Rhinitis. 30 mL 5 2 Active Warfarin Sodium 2.5 MG Oral TabletIndications:C hronic ischemic heart disease Up to one tablet daily as directed by the [facility] clinic 100 Tablet 3 2 Active Metoprolol [...] Tablet (Crestor)Indication s:NSTEMI (non-ST elevated myocardial infarction) (HCC) Take 1 Tablet by mouth in the morning. 90 Tablet 3 3 Active Nitroglycerin 0.4 MG Sublingual Tablet Sublingual (Nitrostat)Indicati ons:NSTEMI (non-ST elevated myocardial infarction) (HCC) Place 1 Tablet under the tongue as needed for Pain, Chest. May repeat 3 times. If chest pain continues, call 911. 25 Tablet 11 3 Active Additional Information Patient not taking.Reported on 08/01/2023 Probiotic Acidophilus Oral Capsule Take by mouth daily. 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 # [id number] Paint And Table Edger: Wilda Serrano MD [phone] Type 2 diabetes mellitus wit h hemoglobin A1c goal of less than 7.0% 11/03/2006 08/15/2007 Overview: ICD-10 update of inactive term PURE HYPERCHOLESTEROLEM 11/03/200609/22 Overview: Per Lipid Taxonomy. 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 05/05/2006 01/23/2009 Overview: ICD-10 update of inactive term Anticoagulation management encounter 05/05/2006 10/03/2019 Unspecified viral infection, in conditions classified elsewhere and of unspecified site 06/08/2005 09/25/2007 Menopause 12/19/2001 12/27/2017 FEM STRESS INCONTINENCE 05/10/200111/23 documented as of this encounter (statuses as of 08/29/2023) Immunizations Name Administration Dates Next Due COVID-19 mRNA, LNP-s, No Pre serve, 2-Dose Series ([employer]) 09/13/2021,01/05/2021,12/15/2020 Covid-19, Mrna, Lnp-s, Pf, B ivalent, [...] Seasonal Influenza, Quadriva lent Hd (Fluzone Hd) 07/04/2022,07/19/2021 Seasonal Influenza, Quadriva lent, No Preserve, IM [...] Upcoming Encounters Date Type Department Care Team ([facility] Contact Info) Description 09/12/2023 11:20 AM EST Office Visit [address] [phone] Oneida Briggs PA-C [address] [place] [address] 09/13/2023 5:30 PM EST Anticoagulation Pharmacy [address] [phone] Pharmacist2, [facility] [address] [address] 10/02/2023 3:30 PM EST Office Visit Cardiology, [facility] [address] [place] [address] Bucky Calvo PA-C [address] [place] [address] 10/06/2023 10:40 AM EST Office Visit Otolaryngology [address] [place] [phone] Keely Tanner PA-C [address] [place] [address] 10/25/2023 10:40 AM EST Office Visit Nephrology [address] [place] [phone] [facility]fa [facility] [address] 11/20/2023 1:40 PM EST Office Visit [address] [phone] Yaya Frederick MD [address] [facility] [place] [address] 12/01/2023 2:15 PM EST Office Visit [facility]ology[facility] [address] [facility] [place] [address] Agustín Sullivan MD [address] [facility] [place] [address] 08/16/2024 11:00 AM EDT Cardiac Studies Cardiology, [facility] [address] [facility] [place] [address] [place] [facility] [address] [facility] [place] [address] Health Maintenance Due Date Last Done Comments Zoster Vaccines (1 of 2) 1954 Hepatitis B (1 of 3 - Risk 3-dose series) 1996 COVID-19 Vaccine ( season) 2023 09/29/2022, 09/13/2021, 01/05/2021, Additional history exists Depression Screening 02/09/2024 02/08/2023 CKD PHOS USE SMARTSET 63091 05/01/202404/22, 11/04/2022, 02/14/2019 Albumin/Creatinine Ratio 06/15/2024 023, 05/01/2023, 07/04/2022, Additional history exists CKD HGB USE SMARTSET 30632 08/11/202408/11, 08/11/2023, 07/21/2023, Additional history exists DXA Scan 11/09/2024 11/09/2022, 01/21, 11/03/2015, Additional history exists DTaP,Tdap,and Td Vaccines (3 - Td or Tdap) 06/04/2029 06/04/2019, 01/28/2019, 05/26/2008 Pneumococcal Vaccine: 65+ Years Completed 05/24/2016, 11/14/2001 VITAMIN D LEVEL ONCE IN A LIFETIME-USE SMARTSET# 74471 Completed 05/01/2023, 11/04/2022, 02/14/2019, Additional history exists [...] Indicated Resolved Time Varicella zoster 08/01/2022 08/01/2022 ESBL 01/26/2023 05/31/2023 07/30/2023 12:2 1 AM EDT documented as of this encounter Care Teams Night Auditor Relationship Specialty Start Date End Date Yaya Frederick MD [address] [place] [address] PCP - General Family Medicine 05/04/21 documented as of this encounter
--- OUTSIDE RECORDS SUMMARY | 2023-09-12 22:24 | External Medical Summary | Summary of Care ---
Author Name Unknown Organization [facility] Address [address] [facility] [place] [address] Phone [phone] Care Team Providers Care Claims Administrator Name Role Phone Yaya Frederick MD Primary Care Provider [phone] Reason for Visit * Reason Onset Date Comments Other 05/22/2023 Encounter Details Date Type Department Care Team (Late st Contact Info) Description 05/22/2023 Telephone Cardiology, [facility] [address] [place] [phone] Srini Doyle, [address] [place] [address] Other Allergies Active Allergy Reactions Criticality Noted Date [...] as of this encounter (statuses as of 08/21/2023) Medications Medication Sig Dispensed Refills Start Date [...] SolutionIndications:P ost-nasal discharge Administer into nostril 1 [place] in the morning AND 1 [place] before bedtime. 30 mL 0 11/30/2021 Active Fexofenadine HCl 180 MG Oral Tablet (Lizzette) Take by mouth 1 Tablet daily as needed for Allergies. 90 Tablet 0 01/21/2022 Active Ipratropium Basom 0.03 % Nasal Solution Administer into each [...] Sublingual (Nitrostat)Indication s:NSTEMI (non-ST elevated myocardial infarction) (HCC) Place 1 Tablet under the tongue as needed for Pain, Chest. May repeat 3 times. If chest pain continues, call 911. 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 # [id number] Operations Executive: Wilda Serrano MD [phone] Type 2 diabetes mellitus wit h hemoglobin A1c goal of less than 7.0% 11/03/2006 08/15/2007 Overview: ICD-10 update of inactive term PURE HYPERCHOLESTEROLEM 11/03/200609/22 Overview: Per Lipid Taxonomy. 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 05/05/2006 01/23/2009 Overview: ICD-10 update of inactive term Anticoagulation management encounter 05/05/2006 10/03/2019 Unspecified viral infection, in conditions classified elsewhere and of unspecified site 06/08/2005 09/25/2007 Menopause 12/19/2001 12/27/2017 FEM STRESS INCONTINENCE 05/10/200111/23 documented as of this encounter (statuses as of 08/21/2023) Immunizations Name Administration Dates Next Due COVID-19 mRNA, LNP-s, No Pre serve, 2-Dose Series ([employer]) 09/13/2021,01/05/2021,12/15/2020 Covid-19, Mrna, Lnp-s, Pf, B ivalent, [...] encounter Miscellaneous Notes * Telephone Encounter - Adrian Galindo LPN - 05/22/2023 1:55 PM EDT Patient would like to see Dr. Raphael [facility] since [facility] does not have any openings and not Dr. Doyle if possible. Please advise if any availability or patient should keep scheduled appointment on May 25. * Telephone Encounter - Sindi Vazquez OSA - 05/22/2023 10:49 AM EDT Good Morning Patient calling wanting to speak to Adrian only. She would not go into details wants a call back from Adrian only and wants it today. States she was talking to him on Monday and she was suppose to havea return call. She can be reached at [phone] Thank you GAVIN Felton documented in this encounter Plan of Treatment Upcoming Encounters Date Type Department Care Team (Late st Contact Info) Description 08/23/2023 11:40 AM EDT Telemedicine Nephrology, [place] [address] [place] [address] Juno Christianson MD [address] [place] [address] 09/12/2023 11:20 AM EST Office Visit Family Practice [facility] [address] [place] [phone] Oneida Briggs PA-C [address] [place] [address] 09/13/2023 5:30 PM EST Anticoagulation Pharmacy [facility] [address] [place] [phone] Pharmacist2, [facility] [address] [place] [address] 10/02/2023 3:30 PM EST Office Visit Cardiology, [facility] [address] [facility] [place] [address] Bucky Calvo PA-C [address] [place] [address] 10/06/2023 10:40 AM EST Office Visit Otolaryngology [facility] [address] [facility] [address] [place] [phone] Keely Tanner PA-C [address] [place] [address] 11/20/2023 1:40 PM EST Office Visit Family [facility] [address] [place] [address] Yaya Frederick MD [address] [place] [address] 12/01/2023 2:15 PM EST Office Visit Hematology/Oncology [facility] [address] [facility] [place], [place] [address] Agustín Sullivan MD 200 [facility], [place] [address] 08/16/2024 11:00 AM EDT Cardiac Studies Cardiology, [facility] [place] [address] [facility] [address] [place] [address] Health Maintenance Due Date Last Done Comments Zoster Vaccines (1 of 2) 1954 Hepatitis B (1 of 3 - Risk 3-dose series) 1996 COVID-19 Vaccine ( season) 2023 09/29/2022, 09/13/2021, 01/05/2021, Additional history exists Depression Screening 02/09/2024 02/08/2023 CKD PHOS USE SMARTSET 79661 05/01/202404/22, 11/04/2022, 02/14/2019 Albumin/Creatinine Ratio 06/15/2024 023, 05/01/2023, 07/04/2022, Additional history exists CKD HGB USE SMARTSET 71943 08/11/202408/11, 08/11/2023, 07/21/2023, Additional history exists DXA Scan 11/09/2024 11/09/2022, 01/21, 11/03/2015, Additional history exists DTaP,Tdap,and Td Vaccines (3 - Td or Tdap) 06/04/2029 06/04/2019, 01/28/2019, 05/26/2008 Pneumococcal Vaccine: 65+ Years Completed 05/24/2016, 11/14/2001 VITAMIN D LEVEL ONCE IN A LIFETIME-USE SMARTSET# 63650 Completed 05/01/2023, 11/04/2022, 02/14/2019, Additional history exists [...] documented as of this encounter Care Teams Claims Administrator Relationship Specialty Start Date End Date Yaya Frederick MD [address] [place] [address] PCP - General Family Medicine 05/04/21 documented as of this encounter
--- OUTSIDE RECORDS SUMMARY | 2023-09-12 22:24 | External Medical Summary | Summary of Care ---
Author Name Unknown Organization [facility] Address [address] [place] [address] Phone [phone] Care Team Providers Care Manometer Technician Name Role Phone Yaya Frederick MD Primary Care Provider [phone] Reason for Visit * Reason Comments Outpatient Testing Encounter Details Date Type Department Care Team (Latest Contact Info) Description 08/29/2023 12:30 PM EST Laboratory [facility] [phone] [address] Essential thrombocythemia ([facility]); Kidney disease, chronic, stage IV (GFR 15-29 ml/min) ([facility]) Allergies Active Allergy Reactions Criticality Noted Date [...] SolutionIndications:P ost-nasal discharge Administer into nostril 1 [place] in the morning AND 1 [place] before bedtime. 30 mL 0 11/30/2021 Active Fexofenadine HCl 180 MG Oral Tablet (Lizzette) Take by mouth 1 Tablet daily as needed for Allergies. 90 Tablet 0 01/21/2022 Active Ipratropium [place] 0.03 % Nasal Solution Administer into each [...] (Crestor)Indications: NSTEMI (non-ST elevated myocardial infarction) ([facility]) Take 1 Tablet by mouth in the morning. 90 Tablet 3 05/18/2023 Active Nitroglycerin 0.4 MG Sublingual Tablet Sublingual (Nitrostat)Indication s:NSTEMI (non-ST elevated myocardial infarction) ([facility]) Place 1 Tablet under the [...] (heart failure with reduced ejection fraction) ([facility]) Take 1 Tablet by mouth in the morning. 30 Tablet 3 07/03/2023 Active Clopidogrel Bisulfate 75 MG Oral Tablet (pLAVix)Indications:H FrEF (heart failure with reduced ejection fraction) ([facility]) Take 1 Tablet by mouth [...] before bedtime. 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 # [id number] Instructor Knitting: Wilda Serrano MD [phone] Type 2 diabetes mellitus wit h hemoglobin A1c goal of less than 7.0% 11/03/2006 08/15/2007 Overview: ICD-10 update of inactive term PURE HYPERCHOLESTEROLEM 11/03/200609/22 Overview: Per Lipid Taxonomy. 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 05/05/2006 [...] Upcoming Encounters Date Type Department Care Team ([facility] Contact Info) Description 09/12/2023 11:20 AM EST Office Visit Family Practice [address] [phone] Oneida Briggs PA-C [address] [place] [address] 09/13/2023 5:30 PM EST Anticoagulation Pharmacy [address] [phone] Pharmacist2, [facility] [address] [address] 10/02/2023 3:30 PM EST Office Visit Cardiology, [address] [place] [address] Bucky Calvo PA-C [address] [place] [address] 10/06/2023 10:40 AM EST Office Visit Otolaryngology [facility] [address] [facility] [address] [place] [phone] Keely Tanner PA-C [address] [place] [address] 10/25/2023 10:40 AM EST Office Visit Nephrology [address] [place] [phone] Alfa Holcomb MD [address] [facility] [place] [address] 11/20/2023 1:40 PM EST Office Visit Family Practice [facility] [address] [place] [phone] Yaya Frederick MD [address] [place] [address] 12/01/2023 2:15 PM EST Office Visit Hematology/Oncology [facility] [address] [facility] [place] [address] Agustín Sullivan MD 200 [facility] [place] [address] 08/16/2024 11:00 AM EDT Cardiac Studies Cardiology, [facility] [address] [place] [address] [facility] [address] [place] [address] Pending Results Name Type Priority Associated Diagnoses Date /Time CBC WITH WBC DIFFERENTIAL Lab STAT Essential thrombocythemia (HCC) 08/29/2023 12:38 PM EST BASIC METABOLIC PANEL Lab Routine Kidney disease, chronic, stage IV (GFR 15-29 ml/min) ([facility]) 08/29/2023 12:38 PM EST MAGNESIUM Lab Routine Kidney disease, chronic, stage IV (GFR 15-29 ml/min) ([facility]) 08/29/2023 12:38 PM EST CBC Lab STAT Essential thrombocythemia ([facility]) 08/29/2023 12:38 PM EST DIFFERENTIAL, AUTOMATED Lab STAT Essential thrombocythemia ([facility]) 08/29/2023 12:38 PM EST Health Maintenance Due Date Last Done Comments Zoster Vaccines (1 of 2) 1954 Hepatitis B (1 of 3 - Risk 3-dose series) 1996 COVID-19 Vaccine ( season) 2023 09/29/2022, 09/13/2021, 01/05/2021, Additional history exists Depression Screening 02/09/2024 02/08/2023 CKD PHOS USE SMARTSET 58993 05/01/202404/22, 11/04/2022, 02/14/2019 Albumin/Creatinine Ratio 06/15/2024 023, 05/01/2023, 07/04/2022, Additional history exists CKD HGB USE SMARTSET 38378 08/11/202408/11, 08/11/2023, 07/21/2023, Additional history exists DXA Scan 11/09/2024 11/09/2022, 01/21, 11/03/2015, Additional history exists DTaP,Tdap,and Td Vaccines (3 - Td or Tdap) 06/04/2029 06/04/2019, 01/28/2019, 05/26/2008 Pneumococcal Vaccine: 65+ Years Completed 05/24/2016, 11/14/2001 VITAMIN D LEVEL ONCE IN A LIFETIME-USE SMARTSET# [id number] Completed 05/01/2023, 11/04/2022, 02/14/2019, Additional history exists [...] this encounter Visit Diagnoses Diagnosis Essential thrombocythemia (HCC) Essential thrombocythemia Kidney disease, chronic, stage IV (GFR 15-29 ml/min) (HCC) Chronic kidney disease, Stage IV (severe) documented in this encounter Additional Health Concerns Infection Onset Date Last Indicated Resolved Time Varicella zoster 08/01/2022 08/01/2022 documented as of this encounter Care Teams Manometer Technician Relationship Specialty Start Date End Date Yaya Frederick MD [address] [place] [address] PCP - General Family Medicine 05/04/21 documented as of this encounter
--- OUTSIDE RECORDS SUMMARY | 2023-09-12 22:24 | External Medical Summary | Summary of Care ---
Author Name Unknown Organization [facility] Address [address] [facility] [place] [address] Phone [phone] Care Team Providers Care Concrete Tile Machine Operator Name Role Phone Yaya Frederick MD Primary Care Provider [phone] Reason for Visit * Reason Onset Date Comments Test Results Lab 08/14/2023 Encounter Details Date Type Department Care Team (Late st Contact Info) Description 08/14/2023 Telephone [facility] [address] [place] [address] Agustín Sullivan MD [address] [place] [address] Test Results Lab Allergies Active Allergy Reactions [...] SolutionIndications:P ost-nasal discharge Administer into nostril 1 [place] in the morning AND 1 [place] before bedtime. 30 mL 0 11/30/2021 Active Fexofenadine HCl 180 MG Oral Tablet (Lizzette) Take by mouth 1 Tablet daily as needed for Allergies. 90 Tablet 0 01/21/2022 Active Ipratropium [place] 0.03 % Nasal Solution Administer into each [...] myocardial infarction) ([facility]) Take 1 Tablet by mouth in the morning. 90 Tablet 3 05/18/2023 Active Nitroglycerin 0.4 MG Sublingual Tablet Sublingual (Nitrostat)Indication s:NSTEMI (non-ST elevated myocardial infarction) ([facility]) Place 1 Tablet under the tongue as [...] ejection fraction) ([facility]) Take 1 Tablet by mouth in the morning. 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 # [id number] Oven Equipment Repairer: Wilda Serrano MD [phone] Type 2 diabetes mellitus wit h hemoglobin A1c goal of less than 7.0% 11/03/2006 08/15/2007 Overview: ICD-10 update of inactive term PURE HYPERCHOLESTEROLEM 11/03/200609/22 Overview: Per Lipid Taxonomy. 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 05/05/2006 01/23/2009 Overview: ICD-10 update of inactive term Anticoagulation management encounter 05/05/2006 10/03/2019 Unspecified viral infection, in conditions classified elsewhere and of unspecified site 06/08/2005 09/25/2007 Menopause 12/19/2001 12/27/2017 FEM STRESS INCONTINENCE 05/10/200111/23 documented as of this encounter (statuses as of 08/21/2023) Immunizations Name Administration Dates Next Due COVID-19 mRNA, LNP-s, No Pre serve, 2-Dose Series ([employer]) 09/13/2021,01/05/2021,12/15/2020 Covid-19, Mrna, Lnp-s, Pf, B ivalent, [...] Telephone Encounter - Rossy Correia OSA - 08/21/2023 11:52 AM EDT Pt moved up to Oct 02. Still on wait list for something sooner. * Telephone Encounter - Rossy Correia OSA [...] Description 08/23/2023 11:40 AM EDT Telemedicine Nephrology, [place] [address] [place] [address] Juno Christianson MD [address] [place] [address] 09/12/2023 11:20 AM EST Office Visit Family [address] [phone] Oneida Briggs PA-C [address] [place] [address] 09/13/2023 5:30 PM EST Anticoagulation Pharmacy [address] [phone] Pharmacist2, [facility] [address] [address] 10/02/2023 3:30 PM EST Office Visit Cardiology, [address] [place] [address] Bucky Calvo PA-C [address] [place] [address] 10/06/2023 10:40 AM EST Office Visit Otolaryngology [facility] [address] [facility] [address] [place] [phone] Keely Tanner PA-C 132 [facility] [place] [address] 11/20/2023 1:40 PM EST Office Visit Family [facility] [address] [place] [phone] Yaya Frederick MD [address] [place] [address] 12/01/2023 2:15 PM EST Office Visit Hematology/Oncology [facility] 200 [facility] [place] [address] Agustín Sullivan MD 200 [facility] [place] [address] 08/16/2024 11:00 AM EDT Cardiac Studies Cardiology, [facility] 132 [facility] [place] [address] [facility] 132 [facility] [place] [address] Scheduled Orders Name Type Priority Associated Diagnoses [...] Screening 02/09/2024 02/08/2023 CKD PHOS USE SMARTSET 23036 05/01/202404/22, 11/04/2022, 02/14/2019 Albumin/Creatinine Ratio 06/15/2024 023, 05/01/2023, 07/04/2022, Additional history exists CKD HGB USE SMARTSET 28021 08/11/202408/11, 08/11/2023, 07/21/2023, Additional history exists DXA Scan 11/09/2024 11/09/2022, 01/21, 11/03/2015, Additional history exists DTaP,Tdap,and Td Vaccines (3 - Td or Tdap) 06/04/2029 06/04/2019, 01/28/2019, 05/26/2008 Pneumococcal Vaccine: 65+ Years Completed 05/24/2016, 11/14/2001 VITAMIN D LEVEL ONCE IN A LIFETIME-USE SMARTSET# 27840 Completed 05/01/2023, 11/04/2022, 02/14/2019, Additional history exists [...] documented as of this encounter Care Teams Concrete Tile Machine Operator Relationship Specialty Start Date End Date Yaya Frederick MD [address] [place] [address] PCP - General Family Medicine 05/04/21 documented as of this encounter
--- OUTSIDE RECORDS SUMMARY | 2023-09-12 22:24 | External Medical Summary | Summary of Care ---
Author Name Unknown Organization [facility] Address [address] [facility] [place] [address] Phone [phone] Care Team Providers Care Utility Operator Yarn Name Role Phone Yaya Frederick MD Primary Care Provider Reason for Visit * Reason Comments Outpatient Testing Encounter Details Date Type Department Care Team (Late st Contact Info) Description 08/17/2023 11:20 AM EDT Laboratory Laboratory Patient Service [address] [phone] [address] S/P aortic valve replacement; RADHA (acute kidney injury) ([facility]) Allergies Active Allergy Reactions Criticality [...] as of this encounter (statuses as of 08/17/2023) Medications Medication Sig Dispensed Refills Start Date [...] SolutionIndications:P ost-nasal discharge Administer into nostril 1 [place] in the morning AND 1 [place] before bedtime. 30 mL 0 11/30/2021 Active Fexofenadine HCl 180 MG Oral Tablet (Lizzette) Take by mouth 1 Tablet daily as needed for Allergies. 90 Tablet 0 01/21/2022 Active Ipratropium [place] 0.03 % Nasal Solution Administer into each [...] Tablet (Crestor)Indications: NSTEMI (non-ST elevated myocardial infarction) ([facility]) Take 1 Tablet by mouth in the morning. 90 Tablet 3 05/18/2023 Active Nitroglycerin 0.4 MG Sublingual Tablet Sublingual (Nitrostat)Indication s:NSTEMI (non-ST elevated myocardial infarction) ([facility]) Place 1 Tablet under the [...] rEF (heart failure with reduced ejection fraction) ([facility]) Take 1 Tablet by mouth in the morning. 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 # [id number] Information Technology Consultant: Wilda Serrano MD [phone] Type 2 diabetes mellitus wit h hemoglobin A1c goal of less than 7.0% 11/03/2006 08/15/2007 Overview: ICD-10 update of inactive term PURE HYPERCHOLESTEROLEM 11/03/200609/22 Overview: Per Lipid Taxonomy. 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/20 08 [facility] current use of ant icoagulant therapy 05/05/2006 01/23/2009 Overview: ICD-10 update of inactive term Anticoagulation management encounter 05/05/2006 10/03/2019 Unspecified viral infection, in conditions classified elsewhere and of unspecified site 06/08/2005 09/25/2007 Menopause 12/19/2001 12/27/2017 FEM STRESS INCONTINENCE 05/10/200111/23 documented as of this encounter (statuses as of 08/17/2023) Immunizations Name Administration Dates Next Due COVID-19 [...] Description 08/23/2023 11:40 AM EDT Telemedicine Nephrology, [place] [address] [place] [address] Juno Christianson MD [address] [place] [address] 09/12/2023 11:20 AM EST Office Visit Family Practice [facility] [address] [place] [phone] Oneida Briggs PA-C [address] [place] [address] 09/13/2023 5:30 PM EST Anticoagulation Pharmacy [facility] [address] [place] [phone] Pharmacist2, [facility] [address] [place] [address] 10/06/2023 10:40 AM EST Office Visit Otolaryngology [facility] [address] [facility] [address] [place] [phone] Keely Tanner PA-C [address] [place] [address] 11/20/2023 1:40 PM EST Office Visit Family Practice [facility] [address] [place] [phone] Yaya Frederick MD [address] [place] [address] 12/01/2023 2:15 PM EST Office Visit Hematology/Oncology [facility] [place] [address] Agustín Sullivan MD [address] [facility] [place] [address] 12/04/2023 2:30 PM EST Office Visit Cardiology, [facility] [address] [place] [address] Bucky Calvo PA-C [address] [place] [address] 08/16/2024 11:00 AM EDT Cardiac Studies Cardiology, [facility] [address] [place] [address] [place] [facility] [address] [place] [address] Pending Results Name Type Priority Associated Diagnoses Date /Time PT INR Lab Routine S/P aortic valve replacement 08/17/2023 11:19 AM EDT BASIC METABOLIC PANEL Lab Routine RADHA (acute kidney injury) (HCC) 08/17/2023 11:19 AM EDT Health Maintenance Due Date Last Done Comments Zoster Vaccines (1 of 2) 1954 Hepatitis B (1 of 3 - Risk 3-dose series) 1996 COVID-19 Vaccine ( season) 2023 09/29/2022, 09/13/2021, 01/05/2021, Additional history exists Depression Screening 02/09/2024 02/08/2023 CKD PHOS USE SMARTSET 56293 05/01/202404/22, 11/04/2022, 02/14/2019 Albumin/Creatinine Ratio 06/15/2024 023, 05/01/2023, 07/04/2022, Additional history exists CKD HGB USE SMARTSET 30219 08/11/202408/11, 08/11/2023, 07/21/2023, Additional history exists DXA Scan 11/09/2024 11/09/2022, 01/21, 11/03/2015, Additional history exists DTaP,Tdap,and Td Vaccines (3 - Td or Tdap) 06/04/2029 06/04/2019, 01/28/2019, 05/26/2008 Pneumococcal Vaccine: 65+ Years Completed 05/24/2016, 11/14/2001 VITAMIN D LEVEL ONCE IN A LIFETIME-USE SMARTSET# [id number] Completed 05/01/2023, 11/04/2022, 02/14/2019, Additional history exists [...] as of this encounter Visit Diagnoses Diagnosis S/P aortic valve replacement Heart valve replaced by other means RADHA (acute kidney injury) (HCC) Acute kidney failure, unspecified documented in this encounter Additional Health Concerns Infection Onset Date Last Indicated Resolved Time Varicella zoster 08/01/2022 08/01/2022 documented as of this encounter Care Teams Utility Operator Yarn Relationship Specialty Start Date End Date Yaya Frederick MD [address] [place] [address] PCP - General Family Medicine 05/04/21 documented as of this encounter
--- OUTSIDE RECORDS SUMMARY | 2023-09-12 22:24 | External Medical Summary | Summary of Care ---
Author Name Unknown Organization [facility] Address [address] [facility] [place] [address] Phone [phone] Care Team Providers Care Mill Operator Head Name Role Phone Yaya Frederick MD Primary Care Provider [phone] Reason for Visit * Reason Comments Pacemaker Clinic Encounter Details Date Type Department Care Team (Latest Contact Info) Description 08/11/2023 11:45 AM EDT Cardiac Studies Cardiology, [facility] [address] [place] [address] [place], [facility] 132 [facility] [place] [address] Intermittent complete atrioventricular block (HCC)*; Chronic atrial fibrillation (HCC); Cardiac pacemaker in situ Allergies Active Allergy Reactions Criticality Noted Date [...] SolutionIndications:P ost-nasal discharge Administer into nostril 1 [place] in the morning AND 1 [place] before bedtime. 30 mL 0 11/30/2021 Active Fexofenadine HCl 180 MG Oral Tablet (Lizzette) Take by mouth 1 Tablet daily as needed for Allergies. 90 Tablet 0 01/21/2022 Active Ipratropium [place] 0.03 % Nasal Solution Administer into each [...] Tablet (Crestor)Indications: NSTEMI (non-ST elevated myocardial infarction) ([facility]) Take 1 Tablet by mouth in the morning. 90 Tablet 3 05/18/2023 Active Nitroglycerin 0.4 MG Sublingual Tablet Sublingual (Nitrostat)Indication s:NSTEMI (non-ST elevated myocardial infarction) ([facility]) Place 1 Tablet under the tongue as [...] rEF (heart failure with reduced ejection fraction) ([facility]) Take 1 Tablet by mouth in the morning. 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 # [id number] Smoke Room Operator: Wilda Serrano MD [phone] Type 2 diabetes mellitus wit h hemoglobin A1c goal of less than 7.0% 11/03/2006 08/15/2007 Overview: ICD-10 update of inactive term PURE HYPERCHOLESTEROLEM 11/03/200609/22 Overview: Per Lipid Taxonomy. 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/20 08 detention current use of ant icoagulant therapy 05/05/2006 01/23/2009 Overview: ICD-10 update of inactive term Anticoagulation management encounter 05/05/2006 10/03/2019 Unspecified viral infection, in conditions classified elsewhere and of unspecified site 06/08/2005 09/25/2007 Menopause 12/19/2001 12/27/2017 FEM STRESS INCONTINENCE 05/10/200111/23 documented as of this encounter (statuses as of 08/18/2023) Immunizations Name Administration Dates Next Due COVID-19 mRNA, LNP-s, No Pre serve, 2-Dose Series (Okta) 09/13/2021,01/05/2021,12/15/2020 Covid-19, Mrna, Lnp-s, Pf, B ivalent, [...] as of this encounter Progress Notes * Olinda Portillo RN - 08/18/2023 3:19 PM EDT Patient and implanted device were evaluated today in the [facility]. Providers please see scanned report in the Scans tab. Olinda Portillo RN documented in this encounter Nursing Notes * Cathy Guevara RN - 08/11/2023 11:43 AM EDT Patient and implanted device were evaluated today in the [facility]. Providers please see scanned report in the Scans tab. Patient noting continued fatigue. No findings on interrogation to contribute to symptoms. Post op dressing removed. Incision well approximated, clean, dry. Minimal post op swelling noted. Area left open to air. Patient teaching about new devices and device follow explained. Do not raise your elbow on the incision side above shoulder level in a repetitive manner. This gives the device lead wires time to attach securely inside your heart. Cleanse area with antibacterial soap and pat dry Advoidance of dental procedures for 6 months Carry an ID card that contains information about your pacemaker. You can show this card if your pacemaker sets off a metal detector. You should also show it to avoid screening with a hand-held security wand. Keep your cell phone away from your pacemaker. Dont carry the phone in your shirt pocket, even when its turned off. Avoid strong magnets. Examples are those used in MRIs or in hand-held security wands. Avoid strong electrical eduardo. Examples are those made by radio transmitting towers, ham radios, and heavy-duty electrical equipment. Avoid leaning over the open mckeon of a running car. A running engine creates an electrical field. Tech: Jitendra Ugalde documented in this encounter Plan of Treatment Upcoming Encounters Date Type Department Care Team (Late st Contact Info) Description 08/23/2023 11:40 AM EDT Telemedicine Nephrology, [place] [address] [place] [address] Juno Christianson MD [address] [place] [address] 09/12/2023 11:20 AM EST Office Visit Family Practice [address] [phone] Oneida Briggs PA-C [address] [place] [address] 09/13/2023 5:30 PM EST Anticoagulation Pharmacy [address] [phone] Pharmacist2, [facility] [address] [address] 10/06/2023 10:40 AM EST Office Visit Otolaryngology [facility] 68 [facility] [address] [place] [phone] Keely Tanner PA-C [facility] [place] [address] 11/20/2023 1:40 PM EST Office Visit Family [facility] [address] [place] [phone] Yaya Frederick MD [address] [place] [address] 12/01/2023 2:15 PM EST Office Visit Hematology/Oncology [facility] 200 [facility] [place] [address] Agustín Sullivan MD 200 [place] [address] 12/04/2023 2:30 PM EST Office Visit Cardiology, [facility] [place] [address] Bucky Calvo PA-C [facility] [place] [address] 08/16/2024 11:00 AM EDT Cardiac Studies Cardiology, [facility] 132 [facility] [place] [address] [facility] 132 [facility] [place] [address] Scheduled Orders Name Type Priority Associated Diagnoses Orde r Schedule POSTOP F-UP VISIT IN GLOBAL Procedures Routine Intermittent complete atrioventricular block (HCC) Chronic atrial fibrillation (HCC) Cardiac pacemaker in situ Ordered: 08/11/2023 Health Maintenance Due Date Last Done Comments Zoster Vaccines (1 of 2) 1954 Hepatitis B (1 of 3 - Risk 3-dose series) 1996 COVID-19 Vaccine ( season) 2023 09/29/2022, 09/13/2021, 01/05/2021, Additional history exists Depression Screening 02/09/2024 02/08/2023 CKD PHOS USE SMARTSET 58718 05/01/202404/22, 11/04/2022, 02/14/2019 Albumin/Creatinine Ratio 06/15/2024 023, 05/01/2023, 07/04/2022, Additional history exists CKD HGB USE SMARTSET 44035 08/11/202408/11, 08/11/2023, 07/21/2023, Additional history exists DXA Scan 11/09/2024 11/09/2022, 01/21, 11/03/2015, Additional history exists DTaP,Tdap,and Td Vaccines (3 - Td or Tdap) 06/04/2029 06/04/2019, 01/28/2019, 05/26/2008 Pneumococcal Vaccine: 65+ Years Completed 05/24/2016, 11/14/2001 VITAMIN D LEVEL ONCE IN A LIFETIME-USE SMARTSET# [id number] Completed 05/01/2023, 11/04/2022, 02/14/2019, Additional history exists [...] as of this encounter Visit Diagnoses Diagnosis Intermittent complete atrioventricular block (HCC)- Primary Atrioventricular block, complete Chronic atrial fibrillation (HCC) Atrial fibrillation Cardiac pacemaker in situ documented in this encounter Additional Health Concerns Infection Onset Date Last Indicated Resolved Time Varicella zoster 08/01/2022 08/01/2022 documented as of this encounter Care Teams Mill Operator Head Relationship Specialty Start Date End Date Yaya Frederick MD [address] [place] [address] PCP - General Family Medicine 05/04/21 documented as of this encounter
--- OUTSIDE RECORDS SUMMARY | 2023-09-12 22:24 | External Medical Summary | Summary of Care ---
Author Name Unknown Organization [facility] Address [address] [facility] [place] [address] Phone [phone] Care Team Providers Care Cardiovascular Radiologic Technologist Name Role Phone Yaya Frederick MD Primary Care Provider [phone] Reason for Visit * Reason Onset Date Comments Test Results Lab 08/14/2023 Encounter Details Date Type Department Care Team (Late st Contact Info) Description 08/14/2023 Telephone [facility]ematology[facility] [address] [place] [address] Agustín Sullivan MD [address] [place] [address] Test Results Lab Allergies Active Allergy Reactions [...] SolutionIndications:P ost-nasal discharge Administer into nostril 1 [place] in the morning AND 1 [place] before bedtime. 30 mL 0 11/30/2021 Active Fexofenadine HCl 180 MG Oral Tablet (Lizzette) Take by mouth 1 Tablet daily as needed for Allergies. 90 Tablet 0 01/21/2022 Active Ipratropium [place] 0.03 % Nasal Solution Administer into each [...] Tablet (Crestor)Indications: NSTEMI (non-ST elevated myocardial infarction) ([facility]) Take 1 Tablet by mouth in the morning. 90 Tablet 3 05/18/2023 Active Nitroglycerin 0.4 MG Sublingual Tablet Sublingual (Nitrostat)Indication s:NSTEMI (non-ST elevated myocardial infarction) ([facility]) Place 1 Tablet under the tongue [...] rEF (heart failure with reduced ejection fraction) ([facility]) Take 1 Tablet by mouth in the morning. 30 Tablet 3 07/03/2023 Active Clopidogrel Bisulfate 75 MG Oral Tablet (pLAVix)Indications:H FrEF (heart failure with reduced ejection fraction) ([facility]) Take 1 Tablet by mouth in [...] Stent Restenosis in Drug-Eluting Stents Project # [id number] Site Monitor: Wilda Serrano MD [phone] GENOMICS CARDIO RESEARCH OTHER*[id number] 01/09/2007 11/29/2016 Overview: Renamed Per Clinical Trials Billing Project. 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 # [id number] Site Monitor: Wilda Serrano MD [phone] Type 2 diabetes mellitus wit h hemoglobin [...] encounter Miscellaneous Notes * Telephone Encounter - Magi BallCHITO - 08/14/2023 10:02 AM EDT Notified patient [...] Description 08/23/2023 11:40 AM EDT Telemedicine Nephrology, [place] [address] [place] [address] Juno Christianson MD [address] [place] [address] 09/12/2023 11:20 AM EST Office Visit [facility] 68 [place] [phone] Oneida Briggs PA-C 68 [place] [address] 09/13/2023 5:30 PM EST Anticoagulation Pharmacy [address] [phone] Pharmacist2, [facility] [address] [address] 10/06/2023 10:40 AM EST Office Visit Otolaryngology [address] [place] [phone] Keely Tanner PA-C [address] [place] [address] 11/20/2023 1:40 PM EST Office Visit [address] [phone] Yaya Ferderick MD [address] [place] [phone] 12/01/2023 2:15 PM EST Office Visit Hematology/Oncology [facility] [place] [address] [place] [address] Agustín Sullivan MD [address] [place] [address] 12/04/2023 2:30 PM EST Office Visit Cardiology, [facility] [place] [address] Bucky Calvo PA-C [address] [place] [address] 08/16/2024 11:00 AM EDT Cardiac Studies Cardiology, [facility] [place] [address] [facility] 132 [facility] [place] [address] Scheduled Orders Name Type Priority Associated Diagnoses [...] Screening 02/09/2024 02/08/2023 CKD PHOS USE SMARTSET 00577 05/01/202404/22, 11/04/2022, 02/14/2019 Albumin/Creatinine Ratio 06/15/20242 023, 05/01/2023, 07/04/2022, Additional history exists CKD HGB USE SMARTSET 19405 08/11/202408/11, 08/11/2023, 07/21/2023, Additional history exists DXA Scan 11/09/2024 11/09/2022, 01/21, 11/03/2015, Additional history exists DTaP,Tdap,and Td Vaccines (3 - Td or Tdap) 06/04/2029 06/04/2019, 01/28/2019, 05/26/2008 Pneumococcal Vaccine: 65+ Years Completed 05/24/2016, 11/14/2001 VITAMIN D LEVEL ONCE IN A LIFETIME-USE SMARTSET# 69819 Completed 05/01/2023, 11/04/2022, 02/14/2019, Additional history exists [...] documented as of this encounter Care Teams Cardiovascular Radiologic Technologist Relationship Specialty Start Date End Date Yaya Frederick MD [address] [place] [address] PCP - General Family Medicine 05/04/21 documented as of this encounter
--- OUTSIDE RECORDS SUMMARY | 2023-09-12 22:25 | External Medical Summary ---
Author Name Unknown Address Unknown Organization [id number]:[facility] [place] [address] [place] [address] Laboratory Report Ordering Provider Test Date Status BARI CANDELARIO 08/17/2023 11:19:29 Final Warfarin Therapy
INR: 2 .0-3.0 conventional 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
INR: 2.5- 3.5 high intensity 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 Observation Date Value Abnormality Reference (Units ) Status PT 08/17/2023 11:19:29 22.3 Above high normal 11 .6-15.2 (seconds) Final INR 08/17/2023 11:19:29 1.9 Above high normal 0. 8-1.2 Final Performing Location [facility] [place] [address] [place] [address]
--- OUTSIDE RECORDS SUMMARY | 2023-09-12 22:25 | External Medical Summary ---
Author Name Unknown Address Unknown Organization [id number] [address] [place] [address] Laboratory Report Ordering Provider Test Date Status JER FITCH 08/11/2023 12:23:24 Final Observation Date Value Abnormality Reference (Units ) Status SYNC LEUKOCYTES IN BLOOD BY AUTOMATED COUNT 08/11/2023 12:23:24 7.97 4.00-10.80 (K/uL) Final Segs 08/11/2023 12:23:24 74.2 40.0-75.0 (%) Final Lymphs % 08/11/2023 12:23:24 9.3 Below low normal 18.0-42.0 (%) Final Monos 08/11/2023 12:23:24 12.2 Above high normal 1.0-11.0 (%) Final Eosinophils 08/11/2023 12:23:24 3.5 0.0-6.0 (%) Final Basos 08/11/2023 12:23:24 0.8 0.0-2.0 (%) Final Absolute Segs 08/11/2023 12:23:24 5.92 1.80-7.70 (K/uL) Final Lymphs, absolute 08/11/2023 12:23:24 0.74 Below low normal 1.00-4.80 (K/ul) Final Monos, Abs 08/11/2023 12:23:24 0.97 0.00-1.10 (K/uL) Final Eos, Abs 08/11/2023 12:23:24 0.28 0.00-0.70 (K/uL) Final Basos, Abs 08/11/2023 12:23:24 0.06 0.00-0.20 (K/uL) Final Performing Location [facility] 0 - [address] [place] [id number]
--- OUTSIDE RECORDS SUMMARY | 2023-09-12 22:25 | External Medical Summary ---
Author Name Unknown Address Unknown Organization [id number]:LABORATORY [facility] [place] 57-[address] - [address] [place] [address] Laboratory Report Ordering Provider Test Date Status JER FITCH 08/11/2023 12:23:24 Final Observation Date Value Abnormality Reference (Units ) Status WBC, Total 08/11/2023 12:23:24 7.97 4.00-10.8 0 (K/uL) Final RBC 08/11/2023 12:23:24 3.22 3.85-5.15 (M/uL) Final Hemoglobin 08/11/2023 12:23:24 11.2 Below low normal 12 .0-15.3 (g/dL) Final HCT 08/11/2023 12:23:24 35.9 Below low normal 36. 0-45.2 (%) Final MCV 08/11/2023 12:23:24 111.5 81.5-97.5 (fL) Final MCH 08/11/2023 12:23:24 34.8 27.0-34.0 (pg) Final MCHC 08/11/2023 12:23:24 31.2 32.0-36.0 (g/dL) Final RDW 08/11/2023 12:23:24 17.1 11.5-15.5 (%) Final Platelets 08/11/2023 12:23:24 240 140-400 (K /uL) Final MPV 08/11/2023 12:23:24 11.5 6.6-11.1 ( fL) Final Performing Location LABORATORY [facility] N[facility] 57-[address] 0 - [address] [place] [address]
--- OUTSIDE RECORDS SUMMARY | 2023-09-12 22:25 | External Medical Summary ---
Author Name Unknown Address Unknown Organization K01:LABORATORY [facility] [place] - [address] [place] [address] Laboratory Report Ordering Provider Test Date Status ERENDIRA CÁRDENAS 08/17/2023 11:19:29 Final Observation Date Value Abnormality Reference (Units ) Status BUN 08/17/2023 11:19:29 36 Above high normal 6-20 (mg/dL) Final Creatinine 08/17/2023 11:19:29 1.8 Above high normal 0.5-1.0 (mg/dL) Final Glomerular filtration rate/1.73 sq M.predicted [Volume Rate/Area] in Serum, Plasma or Blood by Creatinine-based formula (CKD-EPI) 08/17/2023 11:19:29 28 Below low normal >=60 (mL/min) Final eGFR is calculated based on the CKD-EPI 2020 equation SODIUM 08/17/2023 11:19:29 141 135-146 (m mol/L) Final Potassium 08/17/2023 11:19:29 3.9 3.5-5.1 (m mol/L) Final Cl 08/17/2023 11:19:29 95 Below low normal 98- 107 (mmol/L) Final CO2 08/17/2023 11:19:29 34 Above high normal 22 -32 (mmol/L) Final Anion gap 08/17/2023 11:19:29 12 7-15 (mmol /L) Final Glucose 08/17/2023 11:19:29 118 70-120 (mg /dL) Final Calcium 08/17/2023 11:19:29 9.6 8.4-10.2 ( mg/dL) Final Performing Location LAB[facility] [place] - [address] [place] [address]
--- OUTSIDE RECORDS SUMMARY | 2023-09-12 22:25 | External Medical Summary | Summary of Care ---
Author Name Unknown Organization [facility] Address [address] [facility] [place] [address] Phone [phone] Care Team Providers Care Bench Loom Weaver Name Role Phone Yaya Frederick MD Primary Care Provider [phone] Reason for Visit * Reason Onset Date Comments Medication Management 08/15/2023 Encounter Details Date Type Department Care Team ([facility] st Contact Info) Description 08/15/2023 Telephone [facility] [address] [place] [address] Oneida Briggs PA-C [address] [place], [place] [phone] Medication Management Allergies Active Allergy Reactions Criticality Noted Date [...] as of this encounter (statuses as of 08/15/2023) Medications Medication Sig Dispensed Refills Start Date [...] SolutionIndications:P ost-nasal discharge Administer into nostril 1 [place] in the morning AND 1 [place] before bedtime. 30 mL 0 11/30/2021 Active Fexofenadine HCl 180 MG Oral Tablet (Lizzette) Take by mouth 1 Tablet daily as needed for Allergies. 90 Tablet 0 01/21/2022 Active Ipratropium [place] 0.03 % Nasal Solution Administer into each [...] NSTEMI (non-ST elevated myocardial infarction) ([facility]) Take 1 Tablet by mouth in the morning. 90 Tablet 3 05/18/2023 Active Nitroglycerin 0.4 MG Sublingual Tablet Sublingual (Nitrostat)Indication s:NSTEMI (non-ST elevated myocardial infarction) ([facility]) Place 1 Tablet under the tongue [...] with reduced ejection fraction) ([facility]) Take 1 Tablet by mouth in the morning. 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 # [id number] Oven Worker: Wilda Serrano MD [phone] Type 2 diabetes mellitus wit h hemoglobin A1c goal of less than 7.0% 11/03/2006 08/15/2007 Overview: ICD-10 update of inactive term PURE HYPERCHOLESTEROLEM 11/03/200609/22 Overview: Per Lipid Taxonomy. 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/20 08 [facility] current use of ant icoagulant therapy 05/05/2006 01/23/2009 Overview: ICD-10 update of inactive term Anticoagulation management encounter 05/05/2006 10/03/2019 Unspecified viral infection, in conditions classified elsewhere and of unspecified site 06/08/2005 09/25/2007 Menopause 12/19/2001 12/27/2017 FEM STRESS INCONTINENCE 05/10/200111/23 documented as of this encounter (statuses as of 08/15/2023) Immunizations Name Administration Dates Next Due COVID-19 [...] Telephone Encounter - Oneida Briggs PA-C - 08/15/2023 12:10 PM EDT I called and spoke with patient regarding Nephrology's recommendation to resume her losartan. Patient reports she resumed losartan last week. I advised that patient come in this week for BMP (7-10days after resuming losartan). She verbalizes understanding. She denies any other concerns at this time. Oneida Briggs PA-C 08/15/2023 12:14 PM documented in this encounter Plan of Treatment Upcoming Encounters Date Type Department Care Team (Late st Contact Info) Description 08/23/2023 11:40 AM EDT Telemedicine Nephrology, [place] [address] [place] [address] Juno Christianson MD [address] [place] [address] 09/12/2023 11:20 AM EST Office Visit [facility] [address] [place] [address] Oneida Briggs PA-C [address] [place] [address] 09/13/2023 5:30 PM EST Anticoagulation Pharmacy [facility] [address] [place] [address] Pharmacist2, [facility] [place] [address] [place] [address] 10/06/2023 10:40 AM EST Office Visit Otolaryngology [facility] 68 [facility] [address] [place] [address] Keely Tanner PA-C [address] [place] [address] 11/20/2023 1:40 PM EST Office Visit [facility] [address] [place] [phone] Yaya Frederick MD [address] [place] [address] 12/01/2023 2:15 PM EST Office Visit Hematology/Oncology [facility] [address] [place] [address] Agustín Sullivan MD [address] [place] [address] 12/04/2023 2:30 PM EST Office Visit Cardiology, [facility] [address] [place] [address] Bucky Calvo PAJosué [address] [place] [address] 08/16/2024 11:00 AM EDT Cardiac Studies Cardiology, [facility] [address] [place] [address] [place], Pacer Clinic [facility] [address] [place] [address] Scheduled Orders Name Type Priority Associated Diagnoses Orde r Schedule BASIC METABOLIC PANEL Lab Routine RADHA (acute kidney injury) (HCC) Expected: 08/16/2023 (Approximate), Expires: 08/14/2024 Health Maintenance Due Date Last Done Comments Zoster Vaccines (1 of 2) 1954 Hepatitis B (1 of 3 - Risk 3-dose series) 1996 COVID-19 Vaccine ( season) 2023 09/29/2022, 09/13/2021, 01/05/2021, Additional history exists Depression Screening 02/09/2024 02/08/2023 CKD PHOS USE SMARTSET 12154 05/01/202404/22, 11/04/2022, 02/14/2019 Albumin/Creatinine Ratio 06/15/2024 023, 05/01/2023, 07/04/2022, Additional history exists CKD HGB USE SMARTSET 88292 08/11/202408/11, 08/11/2023, 07/21/2023, Additional history exists DXA Scan 11/09/2024 11/09/2022, 01/21, 11/03/2015, Additional history exists DTaP,Tdap,and Td Vaccines (3 - Td or Tdap) 06/04/2029 06/04/2019, 01/28/2019, 05/26/2008 Pneumococcal Vaccine: 65+ Years Completed 05/24/2016, 11/14/2001 VITAMIN D LEVEL ONCE IN A LIFETIME-USE SMARTSET# 65042 Completed 05/01/2023, 11/04/2022, 02/14/2019, Additional history exists [...] as of this encounter Visit Diagnoses Diagnosis RADHA (acute kidney injury) (HCC)- Primary Acute kidney failure, unspecified documented in this encounter Additional Health Concerns Infection Onset Date Last Indicated Resolved Time Varicella zoster 08/01/2022 08/01/2022 documented as of this encounter Care Teams Bench Loom Weaver Relationship Specialty Start Date End Date Yaya Frederick MD [address] [place] [address] PCP - General Family Medicine 05/04/21 documented as of this encounter
--- OUTSIDE RECORDS SUMMARY | 2023-09-12 22:25 | External Medical Summary | Summary of Care ---
Author Name Unknown Organization [facility] Address [address] [facility] [place] [address] Phone [phone] Care Team Providers Care Mat Machine Tender Name Role Phone Yaya Frederick MD Primary Care Provider [phone] Reason for Visit * Reason Comments Outpatient Testing Encounter Details Date Type Department Care Team Description 08/11/2023 Laboratory Laboratory, [facility] [address] [facility] [place] [address] [facility] [address] [facility] [place] [address] Essential thrombocythemia (HCC) Allergies Active Allergy Reactions Severity Noted Date Comments Amiodarone Edema face/lips/tongue,Edema Other,Rash [...] as of this encounter (statuses as of 08/11/2023) Medications Medication Sig Dispensed Refills Start Date [...] SolutionIndications:P ost-nasal discharge Administer into nostril 1 [place] in the morning AND 1 [place] before bedtime. 30 mL 0 11/30/2021 Active Fexofenadine HCl 180 MG Oral Tablet (Lizzette) Take by mouth 1 Tablet daily as needed for Allergies. 90 Tablet 0 01/21/2022 Active Ipratropium [employer] [place] 0.03 % Nasal Solution Administer into each [...] as of this encounter (statuses as of 08/11/2023) Active Problems Problem Noted Date HFrEF (heart failure with reduced ejecti on fraction) 06/30/2023 RADHA (acute kidney injury) 06/15/2023 Chronic hypoxemic respiratory failure Hx of actinic keratosis 05/24/2021 Hypertensive kidney disease with stage 3 a chronic kidney disease 08/31/2020 Overview: Per CKD protocol Obstructive sleep apnea of adult 020 Paroxysmal atrial fibrillation 0 Bilateral leg edema 04/16/2018 Hx of nonmelanoma skin cancer 02/19/2018 Overview: Hx BCC R midchest 03/2017 Essential thrombocythemia 10/14/2017 Lumbar spinal stenosis 04/15/2015 Cardiac pacemaker in situ 04/17/2014 Sinus node dysfunction 04/17/2014 nursing home current use of anticoagulant t herapy 11/12/2010 Overview: ICD-10 update of inactive term DYSLIPIDEMIA, GOAL LDL BELOW 70 10/01/20 Overview: Per Lipid Taxonomy. HTN, goal below 150/90 09/24/2009 [address]ympt[address] bilateral carotid artery st enosis 05/25/2009 Restless legs syndrome 01/23/2009 Old myocardial [...] as of this encounter (statuses as of 08/11/2023) Resolved Problems Problem Noted Date Resolved Date Chronic heart failure with [...] Overview: Per CKD protocol Kidney disease, chronic, stage III (GFR 30-59 ml /min) 09/03/2018 01/30/2019 Overview: Per CKD protocol #1 GAVIN (obstructive sleep apnea) 12/21/2017 Dermatitis 06/18/2015 02/16/2017 Displacement of lumbar inter vertebral disc without myelopathy 03/12/2011 12/27/2017 Atrial fibrillation 11/12/2010 10/28/2019 ANGIOEDEMA 01/16/2008 07/30/2018 Esophageal reflux 07/19/2007 10/28/2019 Examination of participant in clinical trial 02/05/2010 Overview: Renamed Per Clinical Trials Billing Project. 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 # [id number] Front Office Representative: Wilda Serrano MD [phone] GENOMICS CARDIO RESEARCH OTHER*[id number] 200611/29/2016 Overview: Renamed Per Clinical Trials Billing Project. 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 # [id number] Front Office Representative: Wilda Serrano MD [phone] Type 2 diabetes mellitus wit h hemoglobin A1c goal of less than 7.0% 11/03/2006 08/15/2007 Overview: ICD-10 update of inactive term PURE HYPERCHOLESTEROLEM 11/03/2006 10/01/20 09 Overview: Per Lipid Taxonomy. 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/2008 nursing home current use of anticoagulant therapy 0 05/05/2006 01/23/2009 Overview: ICD-10 update of inactive term Anticoagulation management encounter 05/05/2006 10/03/2019 Unspecified viral infection, in conditions classified elsewhere and of unspecified site 06/08/2005 09/25/2007 Menopause 12/19/2001 12/27/2017 FEM STRESS INCONTINENCE 05/10/2001 12/04/19 02 documented as of this encounter (statuses as of 08/11/2023) Immunizations Name Administration Dates Next Due COVID-19 [...] drink = 0.6 oz pur e alcohol) Food Insecurity Answer Date Recorded Within the past 12 months, y ou worried that your food would run out before you got money to buy more. Never true 10/28/2019 Within the past 12 months, t he food you bought just didn't last and you didn't have money to get more. Never true 10/28/2019 Sex Assigned at Date Recorded Female 08/03/2020 2:05 PM E DT Job Start Date Occupation Industry Not on file Not on file Not on file documented as of this encounter Plan of Treatment Upcoming Encounters Date Type Specialty Care Team Description 08/23/2023 Telemedicine Nephrology Juno Christianson MD [address] [place] [address] 09/12/2023 Office Visit Family Medicine Oneida Briggs PA-C [address] [place] [address] 09/13/2023 Anticoagulation Pharmacy Pharmacist, [facility] [address] [place], [place] [phone] 10/06/2023 Office Visit Otolaryngology Keely Tanner PA-C [address] [facility] [place] [address] 11/20/2023 Office Visit Family Medicine Yaya Frederick MD [address] [place] [address] 12/01/2023 Office Visit Hematology Oncology Agustín Sullivan MD [address] [place] [address] 12/04/2023 Office Visit Cardiology Bucky Calvo PA-C [address] [place] [address] 08/16/2024 Cardiac Studies [facility] [address] [place] [address] Pending Results Name Type Priority Associated Diagnoses Date /Time CBC WITH WBC DIFFERENTIAL Lab STAT Essential thrombocythemia (HCC) 08/11/2023 12:23 PM EDT CBC Lab STAT Essential thrombocythemia (HCC) 08/11/2023 12:23 PM EDT DIFFERENTIAL, AUTOMATED Lab STAT Essential thrombocythemia ([facility]) 08/11/2023 12:23 PM EDT Health Maintenance Due Date Last Done Comments Zoster Vaccines (1 of 2) 1954 COVID-19 Vaccine (2022- season) 2023 09/29/2022, 09/13/2021, 01/05/2021, Additional history exists Depression Screening 02/09/2024 02/08/2023 CKD PHOS USE SMARTSET 41959 05/01/202404/22, 11/04/2022, 02/14/2019 Albumin/Creatinine Ratio 06/15/2024 023, 05/01/2023, 07/04/2022, Additional history exists CKD HGB USE SMARTSET 35889 07/21/202407/21, 07/21/2023, 07/07/2023, Additional history exists DXA Scan 11/09/2024 11/09/2022, 01/21, 11/03/2015, Additional history exists DTaP,Tdap,and Td Vaccines (3 - Td or Tdap) 06/04/2029 06/04/2019, 01/28/2019, 05/26/2008 Pneumococcal Vaccine: 65+ Years Completed 05/24/2016, 11/14/2001 VITAMIN D LEVEL ONCE IN A LIFETIME-USE SMARTSET# [id number] Completed 05/01/2023, 11/04/2022, 02/14/2019, Additional history exists Influenza Vaccine (FLU shot) Completed 05/2023, 07/04/2022, 07/19/2021, Additional history exists GARDASIL-HPV IMMUNIZATION SERIES Aged Out No longer eligible based on patient's age to complete this topic Hepatitis B Aged Out No longer eligi ble based on patient's age to complete this topic MENINGOCOCCAL (MENACTRA/MENVEO) Aged Out No longer eligible based on patient's age to complete this topic documented as of this encounter Medical Devices Not on filedocumented as of this encounter Visit Diagnoses Diagnosis Essential thrombocythemia (HCC) Essential thrombocythemia documented in this encounter Additional Health Concerns Infection Onset Date Last Indicated Resolved Time Varicella zoster 08/01/2022 08/01/2022 documented as of this encounter Care Teams Mat Machine Tender Relationship Specialty Start Date End Date Yaya Frederick MD [address] [address] [phone] PCP - General Family Medicine 05/04/21 documented as of this encounter
--- OUTSIDE RECORDS SUMMARY | 2023-09-12 22:25 | External Medical Summary | Summary of Care ---
Author Name Unknown Organization [facility] Address [address] [facility] [place] [address] Phone [phone] Care Team Providers Care Curriculum Facilitator Name Role Phone Yaya Frederick MD Primary Care Provider [phone] Reason for Visit * Reason Onset Date Comments Test Results Lab 08/14/2023 Encounter Details Date Type Department Care Team (Late st Contact Info) Description 08/14/2023 Telephone [facility] [address] [place] [address] Agustín Sullivan MD [address] [place] [address] Test Results Lab Allergies Active Allergy Reactions [...] as of this encounter (statuses as of 08/14/2023) Medications Medication Sig Dispensed Refills Start Date [...] SolutionIndications:P ost-nasal discharge Administer into nostril 1 [place] in the morning AND 1 [place] before bedtime. 30 mL 0 11/30/2021 Active Fexofenadine HCl 180 MG Oral Tablet (Lizzette) Take by mouth 1 Tablet daily as needed for Allergies. 90 Tablet 0 01/21/2022 Active Ipratropium [place] 0.03 % Nasal Solution Administer into each [...] Tablet (Crestor)Indications: NSTEMI (non-ST elevated myocardial infarction) ([facility]) Take 1 Tablet by mouth in the morning. 90 Tablet 3 05/18/2023 Active Nitroglycerin 0.4 MG Sublingual Tablet Sublingual (Nitrostat)Indication s:NSTEMI (non-ST elevated myocardial infarction) ([facility]) Place 1 Tablet under the [...] rEF (heart failure with reduced ejection fraction) ([facility]) Take 1 Tablet by mouth in the morning. 30 Tablet 3 07/03/2023 Active Clopidogrel Bisulfate 75 MG Oral Tablet (pLAVix)Indications:H FrEF (heart failure with reduced ejection fraction) ([facility]) Take 1 Tablet by mouth [...] as of this encounter (statuses as of 08/14/2023) Active Problems Problem Noted Date Diagnosed Date [...] in situ 04/17/2014 Sinus node dysfunction 04/17/2014 assisted current use of anticoagulant therapy 0 11/12/2010 [...] as of this encounter (statuses as of 08/14/2023) Resolved Problems Problem Noted Date Diagnosed Date [...] Stent Restenosis in Drug-Eluting Stents Project # [id number] Cold Mill Operator: Wilda Serrano MD [phone] GENOMICS CARDIO RESEARCH OTHER*[id number] 01/09/2007 11/29/2016 Overview: Renamed Per Clinical Trials Billing Project. 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 # [id number] Cold Mill Operator: Wilda Serrano MD [phone] Type 2 diabetes mellitus wit h hemoglobin A1c goal of less than 7.0% 11/03/2006 08/15/2007 Overview: ICD-10 update of inactive term PURE HYPERCHOLESTEROLEM 11/03/200609/22 Overview: Per Lipid Taxonomy. 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 ant icoagulant therapy 05/05/2006 01/23/2009 Overview: ICD-10 update of inactive term Anticoagulation management encounter 05/05/2006 10/03/2019 Unspecified viral infection, in conditions classified elsewhere and of unspecified site 06/08/2005 09/25/2007 Menopause 12/19/2001 12/27/2017 FEM STRESS INCONTINENCE 05/10/200111/23 documented as of this encounter (statuses as of 08/14/2023) Immunizations Name Administration Dates Next Due COVID-19 [...] Miscellaneous Notes * Telephone Encounter - Magi Ball LPN [...] Description 08/23/2023 11:40 AM EDT Telemedicine Nephrology, [place] [address] [place] [address] Juno Christianson MD [address] [place] [address] 09/12/2023 11:20 AM EST Office Visit [facility] [address] [place] [address] Oneida Briggs PA-C [address] [place] [address] 09/13/2023 5:30 PM EST Anticoagulation Pharmacy [address] [phone] Pharmacist2, [facility] [address] [address] 10/06/2023 10:40 AM EST Office Visit Otolaryngology [facility] [address] [facility] [address] [place] [phone] Keely Tanner PA-C [address] [place] [address] 11/20/2023 1:40 PM EST Office Visit [facility] [address] [place] [phone] Yaya Frederick MD [address] [place] [phone] 12/01/2023 2:15 PM EST Office Visit Hematology/Oncology [facility] [address] [place] [address] Agustín Sullivan MD [address] [place] [address] 12/04/2023 2:30 PM EST Office Visit Cardiology, [facility] [address] [place] [address] Bucky Calvo PA-C [address] [place] [address] 08/16/2024 11:00 AM EDT Cardiac Studies Cardiology, [facility] [place] [address] [facility] 132 [facility] [place] [address] Scheduled Orders Name Type Priority Associated Diagnoses [...] Screening 02/09/2024 02/08/2023 CKD PHOS USE SMARTSET 57820 05/01/202404/22, 11/04/2022, 02/14/2019 Albumin/Creatinine Ratio 06/15/2024 023, 05/01/2023, 07/04/2022, Additional history exists CKD HGB USE SMARTSET 27059 08/11/202408/11, 08/11/2023, 07/21/2023, Additional history exists DXA Scan 11/09/2024 11/09/2022, 01/21, 11/03/2015, Additional history exists DTaP,Tdap,and Td Vaccines (3 - Td or Tdap) 06/04/2029 06/04/2019, 01/28/2019, 05/26/2008 Pneumococcal Vaccine: 65+ Years Completed 05/24/2016, 11/14/2001 VITAMIN D LEVEL ONCE IN A LIFETIME-USE SMARTSET# [id number] Completed 05/01/2023, 11/04/2022, 02/14/2019, Additional history exists [...] documented as of this encounter Care Teams Curriculum Facilitator Relationship Specialty Start Date End Date Yaya Frederick MD [address] [place] [phone] PCP - General Family Medicine 05/04/21 documented as of this encounter
--- OUTSIDE RECORDS SUMMARY | 2023-09-12 22:25 | External Medical Summary | Summary of Care ---
Author Name Unknown Organization [facility] Address [address] [facility] [place] [address] Phone [phone] Care Team Providers Care Metal Bed Assembler Name Role Phone Yaya Frederick MD Primary Care Provider [phone] Reason for Visit * Reason Comments Medication Refill Encounter Details Date Type Department Care Team ([facility] st Contact Info) Description 08/17/2023 Refill Family [facility] [address] [place] [address] Marco Hunter PA-C [address] [place] [address] Dyslipidemia, goal LDL below 70 Allergies Active Allergy Reactions Criticality Noted Date [...] SolutionIndications:P ost-nasal discharge Administer into nostril 1 [place] in the morning AND 1 [place] before bedtime. 30 mL 0 11/30/2021 Active Fexofenadine HCl 180 MG Oral Tablet (Lizzette) Take by mouth 1 Tablet daily as needed for Allergies. 90 Tablet 0 01/21/2022 Active Ipratropium [employer] 0.03 % Nasal Solution Administer into each [...] Tablet (Crestor)Indications: NSTEMI (non-ST elevated myocardial infarction) ([facility]) Take 1 Tablet by mouth in the morning. 90 Tablet 3 05/18/2023 Active Nitroglycerin 0.4 MG Sublingual Tablet Sublingual (Nitrostat)Indication s:NSTEMI (non-ST elevated myocardial infarction) ([facility]) Place 1 Tablet under the tongue as [...] rEF (heart failure with reduced ejection fraction) ([facility]) Take 1 Tablet by mouth in the morning. 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 # [id number] Global Coordinator: Wilda Serrano MD [phone] Type 2 diabetes mellitus wit h hemoglobin A1c goal of less than 7.0% 11/03/2006 08/15/2007 Overview: ICD-10 update of inactive term PURE HYPERCHOLESTEROLEM 11/03/200609/22 Overview: Per Lipid Taxonomy. 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/20 08 skilled nursing current use of ant icoagulant therapy 05/05/2006 [...] encounter Miscellaneous Notes * Telephone Encounter - ORA Bahena Tech - 08/17/2023 9:29 AM EDTNo prescriptions requested or ordered in this encounter documented in this encounter Plan of Treatment Upcoming Encounters Date Type Department Care Team (Late st Contact Info) Description 08/23/2023 11:40 AM EDT [facility] [address] [place] [address] Juno Christianson MD [address] [place], [place] [phone] 09/12/2023 11:20 AM EST Office Visit [facility] [address] Oneida Briggs PA-C [address] [place] [address] 09/13/2023 5:30 PM EST Anticoagulation Pharmacy [facility] [address] [place] [phone] Pharmacist2, [facility] [address] [address] 10/06/2023 10:40 AM EST Office Visit Otolaryngology [address] [place] [phone] Keely Tanner PA-C [address] [facility] [place] [address] 11/20/2023 1:40 PM EST Office Visit [facility] [address] Yaya Frederick MD [address] [place] [address] 12/01/2023 2:15 PM EST Office Visit Hematology/Oncology [facility] [address] [facility] [place] [address] Agustín Sullivan MD [address] [facility] [place] [address] 12/04/2023 2:30 PM EST Office Visit Cardiology, [facility] [address] [place] [address] Bucky Calvo PA-C [address] [place] [address] 08/16/2024 11:00 AM EDT Cardiac Studies Cardiology, [facility] [address] [place] [address] Aldo Winkr [facility] [address] [place] [address] Health Maintenance Due Date Last Done Comments Zoster Vaccines (1 of 2) 1954 Hepatitis B (1 of 3 - Risk 3-dose series) 1996 COVID-19 Vaccine ( season) 2023 09/29/2022, 09/13/2021, 01/05/2021, Additional history exists Depression Screening 02/09/2024 02/08/2023 CKD PHOS USE SMARTSET 72008 05/01/202404/22, 11/04/2022, 02/14/2019 Albumin/Creatinine Ratio 06/15/2024 023, 05/01/2023, 07/04/2022, Additional history exists CKD HGB USE SMARTSET 47802 08/11/202408/11, 08/11/2023, 07/21/2023, Additional history exists DXA Scan 11/09/2024 11/09/2022, 01/21, 11/03/2015, Additional history exists DTaP,Tdap,and Td Vaccines (3 - Td or Tdap) 06/04/2029 06/04/2019, 01/28/2019, 05/26/2008 Pneumococcal Vaccine: 65+ Years Completed 05/24/2016, 11/14/2001 VITAMIN D LEVEL ONCE IN A LIFETIME-USE SMARTSET# 25093 Completed 05/01/2023, 11/04/2022, 02/14/2019, Additional history exists [...] as of this encounter Visit Diagnoses Diagnosis Dyslipidemia, goal LDL below 70 Other and unspecified hyperlipidemia documented in this encounter Additional Health Concerns Infection Onset Date Last Indicated Resolved Time Varicella zoster 08/01/2022 08/01/2022 documented as of this encounter Care Teams Metal Bed Assembler Relationship Specialty Start Date End Date Yaya Frederick MD [address] [place] [address] [phone] PCP - General Family Medicine 05/04/21 documented as of this encounter
--- OUTSIDE RECORDS SUMMARY | 2023-09-12 22:25 | External Medical Summary | Summary of Care ---
Author Name Unknown Organization [facility] Address [address] [facility] [place] [address] Phone [phone] Care Team Providers Care Safety Attendant Name Role Phone Yaya Frederick MD Primary Care Provider [phone] Reason for Visit * Reason Onset Date Comments Appointment 05/17/2023 Encounter Details Date Type Department Care Team (Late st Contact Info) Description 05/17/2023 Telephone Cardiology, [facility] [address] [place] [phone] Bucky Calvo PA-C [address] [place] [phone] Appointment Allergies Active Allergy Reactions Criticality Noted Date [...] as of this encounter (statuses as of 08/16/2023) Medications Medication Sig Dispensed Refills Start Date End Date Status BENADRYL 25 MG PO TABS 1 TABLET EVERY 4 TO 6 HOURS NEEDED 0 Active MAG-OXIDE 400 MG PO TABSIndications:Chr onic ischemic heart disease one tablet twice a day 60 Tab 5 01/06/20 11 Active Additional Information Patient taking differently: 400 mgOralDaily(AM), Reported on 11/21/2022 GRX ANALGESIC BALM EX OINT Apply topically to affected area. 0 07/01/20 13 Active Azelastine HCl 0.15 % Nasal SolutionIndications :Post-nasal discharge Administer into nostril 1 [place] in the morning AND 1 [place] before bedtime. 30 mL 0 11/30/19 22 Active Fexofenadine HCl 180 MG Oral Tablet (Lizzette) Take by mouth 1 Tablet daily as needed for Allergies. 90 Tablet 0 01/22/20 22 Active Ipratropium [place] 0.03 % Nasal Solution Administer into each nostril 2 Sprays 2 times a day as needed for Rhinitis. 30 mL 5 02/24/20 22 Active Warfarin Sodium 2.5 MG Oral TabletIndications:C hronic ischemic heart disease Up to one tablet daily as directed by the Anticoag clinic 100 Tablet 3 08/09/20 22 Active Metoprolol Succinate ER 100 MG [...] mouth in the morning. 0 05/09/20 23 Active Hydroxyurea 500 MG Oral Capsule (Hydrea)Indications [...] bedtime. 20 Tablet 0 05/15/20 23 Active CALTRATE 600+D 600-400 MG-UNIT PO TABS one tablet twice daily 0 06/17/20 09 023 Discontinued Rosuvastatin Calcium 10 MG Oral Tablet (Crestor)Indication s:Dyslipidemia, goal LDL below 70 Take 1 Tablet (10 mg) by mouth in the morning. 90 Tablet 3 10/03/20 22 023 Discontinued(Me dication/Dose Changed) rOPINIRole HCl 0.5 MG Oral Tablet (Requip)Indications :RLS (restless legs syndrome) Take 1 Tablet by mouth at bedtime. 30 Tablet 5 01/24/20 23 023 Discontinued(Garrison luong preference/disc ontinuation) Phenazopyridine HCl 200 MG Oral Tablet (Pyridium) 1 tablet every 8 hours as needed After meals for pain with urination 30 Tablet 0 03/21/20 23 023 Discontinued(En d of Procedure) Estrogens Conjugated 0.625 MG/GM Vaginal Cream (Premarin)Indicatio ns:Recurrent UTI Administer 0.5 g into the vagina in the morning. 30 g 2 03/24/20 23 023 Discontinued(Me dication List Clean Up) Pantoprazole Sodium 40 MG Oral Tablet Delayed Release (Protonix)Indicatio ns:Esophagitis Take 1 Tablet by mouth in the morning. 90 Tablet 1 03/28/20 23 023 Discontinued Torsemide 20 MG Oral Tablet (Demadex)Indication s:Chronic ischemic heart disease Take 1 Tablet by mouth once a day on Monday, Monday, and Monday only. 100 Tablet 2 04/10/20 23 023 Discontinued Spironolactone 25 MG Oral Tablet (Aldactone)Indicati ons:Chronic ischemic heart disease,HTN, goal below 150/90,Old myocardial infarct Take 0.5 Tablets by mouth in the morning. 45 Tablet 3 04/10/20 23 023 Discontinued(Me dication List Clean Up) Clopidogrel Bisulfate 75 MG Oral Tablet (pLAVix) Take 1 Tablet by mouth in the morning. 0 05/09/20 23 023 Discontinued(Re fill) Amoxicillin-Pot Clavulanate 500-125 MG Oral Tablet (Augmentin) Take 1 Tablet by mouth in the morning and 1 Tablet in the evening. 0 023 Discontinued(En d of Procedure) Advanced Probiotic Oral Capsule Take 2 Capsules by mouth in the morning. 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 05/05/2006 01/23/2009 Overview: ICD-10 update of inactive term Anticoagulation management encounter 05/05/2006 10/03/2019 Unspecified viral infection, in conditions classified elsewhere and of unspecified site 06/08/2005 09/25/2007 Menopause 12/19/2001 12/27/2017 FEM STRESS INCONTINENCE 05/10/200111/23 documented as of this encounter (statuses as of 08/16/2023) Immunizations Name Administration Dates Next Due COVID-19 mRNA, LNP-s, No Pre serve, 2-Dose Series (Zite) 09/13/2021,01/05/2021,12/15/2020 Covid-19, Mrna, Lnp-s, Pf, B ivalent, [...] encounter Miscellaneous Notes * Telephone Encounter - Maria Elena Otero, GAVIN - 05/22/2023 10:39 AM EDT Spoke with pt. Pt is scheduled 05/25/[address] Doyle. * Telephone Encounter - Bucky Calvo PA-C - 05/18/2023 8:10 PM EDT Will try to see next week if possible. OK to see another provider if available. Bucky Calvo PA-C Department of Cardiology * Telephone Encounter - Rachelle Steen CPhT - 05/18/2023 3:38 PM EDT Pt calling to check the status of a sooner appt for Cardiology. 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 Would you be available to see patient next week during hospital rounds? * Telephone Encounter - GAVIN Bowen - 05/17/2023 1:49 PM EDT Good afternoon, Patient's appointment was cancelled by Bucky for 05/22, she is scheduled for next available and on fast pass list. She is stating she needs to be seen much sooner and Bucky requested her to be seen sooner since she had her stroke. Please advise. Thanks documented in this encounter Plan of Treatment Upcoming Encounters Date Type Department Care Team (Late st Contact Info) Description 08/23/2023 11:40 AM EDT Telemedicine Nephrology, [address] [phone] Juno Christianson MD [address] [place] [address] 09/12/2023 11:20 AM EST Office Visit [facility] [address] [place] [phone] Oneida Briggs PA-C [address] [place] [address] 09/13/2023 5:30 PM EST Anticoagulation Pharmacy [facility] [address] [place] [address] Pharmacist2, [facility] [address] [place] [address] 10/06/2023 10:40 AM EST Office Visit Otolaryngology [facility] [address] [facility] [address] [place] [phone] Keely Tanner PA-C [address] [facility] [place] [address] 11/20/2023 1:40 PM EST Office Visit [facility] [address] [place] [phone] Yaya Frederick MD [address] [place] [address] 12/01/2023 2:15 PM EST Office Visit Hematology/Oncology [facility] [address] [facility] [address] Agustín Sullivan MD [address] [place] [address] 12/04/2023 2:30 PM EST Office Visit Cardiology, [facility] [address] [place] [phone] Bucky Calvo PA-C [address] [place] [phone] 08/16/2024 11:00 AM EDT Cardiac Studies Cardiology, [facility] [address] [place] [phone] [place] [address] [place] [address] Health Maintenance Due Date Last Done Comments Zoster Vaccines (1 of 2) 1954 Hepatitis B (1 of 3 - Risk 3-dose series) 1996 COVID-19 Vaccine ( season) 2023 09/29/2022, 09/13/2021, 01/05/2021, Additional history exists Depression Screening 02/09/2024 02/08/2023 CKD PHOS USE SMARTSET 48095 05/01/202404/22, 11/04/2022, 02/14/2019 Albumin/Creatinine Ratio 06/15/2024 023, 05/01/2023, 07/04/2022, Additional history exists CKD HGB USE SMARTSET 55820 08/11/202408/11, 08/11/2023, 07/21/2023, Additional history exists DXA Scan 11/09/2024 11/09/2022, 01/21, 11/03/2015, Additional history exists DTaP,Tdap,and Td Vaccines (3 - Td or Tdap) 06/04/2029 06/04/2019, 01/28/2019, 05/26/2008 Pneumococcal Vaccine: 65+ Years Completed 05/24/2016, 11/14/2001 VITAMIN D LEVEL ONCE IN A LIFETIME-USE SMARTSET# [id number] Completed 05/01/2023, 11/04/2022, 02/14/2019, Additional history exists [...] documented as of this encounter Care Teams Safety Attendant Relationship Specialty Start Date End Date Yaya Frederick MD [address] [place] [id number] PCP - General Family Medicine 05/04/21 documented as of this encounter
--- OUTSIDE RECORDS SUMMARY | 2023-09-12 22:26 | External Medical Summary | Summary of Care ---
Author Name Unknown Organization [facility] Address [address] [address] Phone [phone] Care Team Providers Care Medication Manager Name Role Phone Yaya Frederick MD Primary Care Provider [phone] Reason for Visit * Reason Comments Consultation Encounter Details Date Type Department Care Team Description 08/01/2023 Office Visit Cardiology, [facility] [address] [facility] [place] [address] Lauren Chau, DO [address] [place] [address] Pacemaker battery depletion*; Intermittent complete atrioventricular block (HCC); Chronic atrial fibrillation (HCC) Allergies Active Allergy Reactions Severity Noted [...] as of this encounter (statuses as of 08/01/2023) Medications Medication Sig Dispensed Refills Start Date [...] SolutionIndications:P ost-nasal discharge Administer into nostril 1 Maxwelton in the morning AND 1 Maxwelton before bedtime. 30 mL 0 11/30/2021 Active Fexofenadine HCl 180 MG Oral Tablet (Lizzette) Take by mouth 1 Tablet daily as needed for Allergies. 90 Tablet 0 01/21/2022 Active Ipratropium Parrott 0.03 % Nasal Solution Administer into each [...] Tablet (Crestor)Indications: NSTEMI (non-ST elevated myocardial infarction) ([facility]) Take 1 Tablet by mouth in the morning. 90 Tablet 3 05/18/2023 Active Nitroglycerin 0.4 MG Sublingual Tablet Sublingual (Nitrostat)Indication s:NSTEMI (non-ST elevated myocardial infarction) ([facility]) Place 1 Tablet under the tongue as [...] rEF (heart failure with reduced ejection fraction) ([facility]) Take 1 Tablet by mouth in the morning. 30 Tablet 3 07/03/2023 Active Clopidogrel Bisulfate 75 MG Oral Tablet (pLAVix)Indications:H FrEF (heart failure with reduced ejection fraction) ([facility]) Take 1 Tablet by mouth in the [...] as of this encounter (statuses as of 08/01/2023) Active Problems Problem Noted Date HFrEF (heart [...] in situ 04/17/2014 Sinus node dysfunction 04/17/2014 rn long term care current use of anticoagulant t herapy 11/12/2010 Overview: ICD-10 update of inactive term DYSLIPIDEMIA, GOAL LDL BELOW 70 10/01/20 09 Overview: Per Lipid Taxonomy. HTN, goal below [...] as of this encounter (statuses as of 08/01/2023) Resolved Problems Problem Noted Date Resolved Date [...] Stent Restenosis in Drug-Eluting Stents Project # [id number] Glass Cutter Hand: Wilda Serrano MD [phone] GENOMICS CARDIO RESEARCH OTHER*[id number] 200611/29/2016 Overview: Renamed Per Clinical Trials Billing Project. 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 # [id number] Glass Cutter Hand: Wilda Serrano MD [phone] Type 2 diabetes mellitus wit h hemoglobin [...] as of this encounter (statuses as of 08/01/2023) Immunizations Name Administration Dates Next Due COVID-19 [...] Date Smoking Tobacco: Never Smokeless Tobacco: Never Tobacco Cessation:Counseling Given: Not Answered Comments:no passive smoke exposures Alcohol Use Standard Drinks/Week Comments No 0 [...] on file documented as of this encounter Last Filed Vital Signs Vital Sign Reading Time Taken Comments Blood Pressure 108/74 08/01/2023 1:56 PM EDT Pulse 80 08/01/2023 1:56 PM EDT Temperature - - Respiratory Rate 18 08/01/2023 1:56 PM EDT Oxygen Saturation - - Inhaled Oxygen Concentration - - Weight 78.5 kg (173 lb 1.6 oz) 08/01/2023 1:56 P M EDT Height - - Body Mass Index 34.94 06/30/2023 1:38 PM EDT documented in this encounter Progress Notes * Lauren Chau, DO - 08/01/2023 2:20 PM EDT Subjective Shannon Cruz is a 88 year old female. Chief Complaint Patient presents with Consultation Pt referred to EP due to ppm at [facility] Referring Provider: Bucky Calvo Cardiac Problems: Permanent AF on high dose metoprolol and coumadin [id number] (age, female, HTN, CAD) SND/ intermittent CHB s/p ppm 03/2014 CAD s/p CABG 04/2006 VARGHESE-LAD, SVG-sequential graft LAD diag to Cx OM, SVG-RCA s/p AVR 04/2006 ([facility] SVG-RCA occluded; PCI to RCA) HTN HLD FELICIA b/l Mild GAVIN not on CPAP Moderate mitral regurgitation is present. Moderate to severe tricuspid regurgitation. 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.5 rn long term care current use of anticoagulant therapy Z79.01 Cardiac pacemaker in situ Z95.0 Sinus node dysfunction (HCC) I49.5 Lumbar spinal stenosis M48.061 Essential 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 Hx of nonmelanoma skin cancer Z85.828 Bilateral leg edema R60.0 Paroxysmal atrial fibrillation (HCC) I48.0 Obstructive sleep apnea of adult G47.33 Hypertensive kidney disease with stage 3a chronic kidney disease (HCC) I12.9, N18.31 Hx of actinic keratosis Z87.2 Chronic hypoxemic respiratory failure ([facility]) J96.11 RADHA (acute kidney injury) ([facility]) N17.9 HFrEF (heart failure with reduced ejection fraction) ([facility]) I50.20 Current Outpatient Medications Medication Sig Dispense Refill BENADRYL 25 MG PO TABS 1 TABLET EVERY 4 TO 6 HOURS NEEDED MAG-OXIDE 400 MG PO TABS one tablet twice a day (Patient taking differently: Take 1 Tablet by mouthin the morning.) 60 Tab 5 GRX ANALGESIC BALM EX OINT Apply topically to affected area. Azelastine HCl 0.15 % Nasal Solution Administer into nostril 1 Maxwelton in the morning AND 1 Maxwelton before bedtime. 30 mL 0 Fexofenadine HCl 180 MG Oral Tablet (Lizzette) Take by mouth 1 Tablet daily as needed for Allergies.90 Tablet 0 Ipratropium Parrott 0.03 % Nasal Solution Administer into each nostril 2 Sprays 2 times a day as needed for Rhinitis. 30 mL 5 Warfarin Sodium 2.5 MG Oral Tablet Up to one tablet daily as directed by the [facility] 100 Tablet 3 Metoprolol Succinate ER 100 MG Oral Tablet Extended Release 24 Hour (toPROL XL) Take 1.5 Tablets (150 mg) by mouth in the morning and 1.5 Tablets (150 mg) before bedtime. (Patient taking differently:Take 1 Tablet by mouth in the morning and 1 Tablet before bedtime.) 270 Tablet 3 oxygen IN GAS Use as directed. 2L at bedtime Hydroxyurea 500 MG Oral Capsule (Hydrea) Take [...] mouth in the morning. 90 Tablet 3 Probiotic Acidophilus Oral Capsule Take by mouth [...] mouth in the morning. 30 Tablet 5 Losartan Potassium 25 MG Oral Tablet (Cozaar) Take 0.5 Tablets by mouth in the morning. (Patient not taking: Reported on 08/01/2023) Nitroglycerin 0.4 MG Sublingual Tablet Sublingual (Nitrostat) Place 1 Tablet under the tongue as needed for Pain, Chest. May repeat 3 times. If chest pain continues, call 911. (Patient not taking: Reported on 08/01/2023) 25 Tablet 11 No current facility-administered medications for this visit. Past Medical History: Diagnosis Date Anticoagulation management encounter 05/05/2006 Atrial fibrillation (HCC) Carotid Stenosis, non-symptomatic 16-49 % bilat. 05/25/2009 Chronic ischemic heart disease HTN, goal below 150/90 09/24/2009 Osteoporosis Past Surgical History: Procedure Laterality Date ATTACH BLADDER/URETHRA, SIMPLE 11/24 [place] CARDIAC CATH-CARDIOLOGY ONLY 04/27 COLONOSCOPY 09/26 polyp- adenoma repeat 10/01 COLONOSCOPY THRU STOMA, W/BIOPSY 07/29/13 adenomatous polyp CYSTOSCOPY 07/12/05 INSERT/REPLACE PULSE GEN ONLY, DOUBLE 04/08/2014 dual chamber mri compatible patecmaker insertion intraoperative fluoroscopic guidance [facility]04/08/14 KNEE ARTHROSCOPY/ARTHROPLASTY 09/2010 dr salcedo LIGATE/CUT OVIDUCT(S) 1963 OTHER 12/27 RCA drug eluting stent REPLACEMENT AORTIC VALVE, BYPASS WITH PROSTHETIC VALVE 04/27 [place] B[place] AVR TOTAL ABD HYSTERECTOMY W/WO REMOVAL OF TUBE(S) 11/24 JADE/BSO Review of patient's allergies indicates: Allergen Reactions Amiodarone Edema face/lips/tongue, Edema Other and Rash legs Keflex [Cephalexin] Rash Unsure if this was a true reaction from Keflex Etodolac lodine; pruritis Penicillins Rash, burning and itching after 2nd dose in her 60's Sulfa Antibiotics Rash Tape [Adhesive Tape] Rash Zithromax [Azithromycin] Throat felt swollen. Denies any shortness of breath. Zocor [Simvastatin] Family History Problem Relation Age of Onset Genitourinary Disorder Mother endometriosis; hysterectomy done Diabetes Mother Genitourinary Disorder Daughter endometriosis; hysterectomy done Diabetes Aunt (Unspecified) maternal Diabetes Uncle (Unspecified) maternal Cancer Father prostate Hypertension Father Allergies Father hayfever Heart attack Sister Stroke Sister No Known Problems Brother Heart disease Sister coronary stent Family Status Relation Status Mo Sarah (Not Specified) AUNT (Not Specified) UNCLE (Not Specified) Fa Sis Bro Sis Alive Sis Social History Socioeconomic History Marital status: Spouse name: Didier Number of children: 4 Years of education: Not on file Highest education level: Not on file Occupational History Not on file Tobacco Use Smoking status: Never Smokeless tobacco: Never Tobacco comments: no passive smoke exposures Vaping Use Vaping Use: Never used Substance and Sexual Activity Alcohol use: No Drug use: No Sexual activity: Yes Partners: Male Other Topics Concern Not on file Social History Narrative [employer] [place] [place] INFORMATION ENVIRONMENTAL HISTORY: Type of Home: Bilevel Type of Heating System: Oil and Hot water: Air Conditioning: No Basement: Finished, No evidence mold, mildew and Dry Home have cockroaches: No Irritants in the home: None Patient's bedroom location: Floor: second Type of christine: Carpeting Beds: Number: 1 Type of beds: Mattress Pillows: Number: 1 Type of pillows: Synthetic (hypoallergenic, polyester) Bedroom contains: Minimal items Pets: none Lives on a farm: No retired Entered by: Wang Arguello MD 08/15/2007 Social Determinants of Health Financial Resource Strain: Not on file Food Insecurity: Not on file Transportation Needs: Not on file Physical Activity: Not on file Stress: Not on file Social Connections: Not on file Intimate Partner Violence: Not on file Housing Stability: Not on file Review of Systems Constitutional: Positive for fatigue. Negative for activity change, chills, fever and unexpected weight change. HENT: Negative for postnasal drip, rhinorrhea and sinus pressure. Eyes: Negative for visual disturbance. +glasses Respiratory: Positive for shortness of breath. Cardiovascular: Negative for chest pain, palpitations and leg swelling. Gastrointestinal: Positive for constipation. Negative for blood in stool, diarrhea, nausea and vomiting. Genitourinary: Negative for dysuria and hematuria. Musculoskeletal: Positive for gait problem. Skin: Negative for rash. Neurological: Negative for dizziness, syncope and light-headedness. Objective BP 108/74 | Pulse 80 | Resp 18 | Wt 78.5 kg (173 lb 1.6 oz) | BMI 34.94 kg/m | BSA 1.81 m Physical Exam Vitals and nursing note reviewed. Constitutional: General: She is awake. Appearance: Normal appearance. She is well-developed. HENT: Head: Normocephalic and atraumatic. Eyes: General: No scleral icterus. Extraocular Movements: Extraocular movements intact. Neck: Vascular: Normal carotid pulses. No carotid bruit or JVD. Cardiovascular: Rate and Rhythm: Normal rate and regular rhythm. Pulses: Carotid pulses are 2+ on the right side and 2+ on the left side. Radial pulses are 2+ on the right side and 2+ on the left side. Posterior tibial pulses are 2+ on the right side and 2+ on the left side. Heart sounds: S1 normal and S2 normal. Murmur heard. Pulmonary: Effort: Pulmonary effort is normal. Breath sounds: Normal breath sounds. No decreased breath sounds, wheezing, rhonchi or rales. Chest: Comments: Left pectoral region; ppm site no evidence of threatened erosion Musculoskeletal: Cervical back: Neck supple. Right lower leg: No edema. Left lower leg: No edema. Skin: General: Skin is warm and dry. Neurological: General: No focal deficit present. Mental Status: She is alert and oriented to person, place, and time. Psychiatric: Attention and Perception: Attention normal. Mood and Affect: Mood normal. Speech: Speech normal. Behavior: Behavior normal. Behavior is cooperative. Thought Content: Thought content normal. Cognition and Memory: Cognition normal. Judgment: Judgment normal. 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 The qualitative LV ejection fraction is 55-59% (normal). The LV wall thickness is mildly increased (concentric). The left atrium is moderately enlarged (42-48 ml/m^2). There is an aortic valve bioprosthetic present. The aortic valve prosthesis systolic gradients are normal for this type prosthesis. Mild intravalvular aortic regurgitation is present. Moderate mitral regurgitation is present. Moderate to severe tricuspid regurgitation. The estimated pulmonary artery systolic pressure is 45mm Hg. Compared to study dated November 19, 2019, bioprosthetic aortic valve systolic gradient unchanged, moderate mitral regurgitation, and moderate to severe tricuspid regurgitation now present. EC08/30/2021: PARAFFIN MACHINE OPERATOR 73bpm Lab Work Reviewed: Component Latest Ref Rng 07/21/2023 08/01/2023 WBC 4.00 - 10.80 K/uL 6.22 Neutrophils % 40.0 - 75.0 % 71.6 Lymphocytes % 18.0 - 42.0 % 11.4 (L) Monocytes % 1.0 - 11.0 % 11.4 (H) Eosinophils % 0.0 - 6.0 % 4.2 Basophils % 0.0 - 2.0 % 1.1 Immature Granulocytes % 0.0 - 2.0 % 0.3 Absolute Neutrophils 1.80 - 7.70 K/uL 4.45 Absolute Lymphocytes 1.00 - 4.80 K/ul 0.71 (L) Absolute Monocytes 0.00 - 1.10 K/uL 0.71 Absolute Eosinophils 0.00 - 0.70 K/uL 0.26 Absolute Basophils 0.00 - 0.20 K/uL 0.07 Absolute Immature Granulocytes 0.00 - 0.20 K/uL 0.02 WBC 4.00 - 10.80 K/uL 6.22 RBC 3.85 - 5.15 M/uL 3.34 HGB 12.0 - 15.3 g/dL 11.6 (L) HCT 36.0 - 45.2 % 37.8 MCV 81.5 - 97.5 fL 113.2 MCH 27.0 - 34.0 pg 34.7 MCHC 32.0 - 36.0 g/dL 30.7 RDW 11.5 - 15.5 % 16.6 PLT 140 - 400 K/uL 265 MPV 6.6 - 11.1 fL 11.5 nRBCs <=0 /100 WBCs 0 BUN 6 - 20 mg/dL 41 (H) Creatinine 0.5 - 1.0 mg/dL 1.7 (H) Estimated Glomerular Filtration Rate >=60 mL/min 28 (L) Sodium 135 - 146 mmol/L 143 Potassium 3.5 - 5.1 mmol/L 3.4 (L) Chloride 98 - 107 mmol/L 98 CO2 22 - 32 mmol/L 34 (H) Anion Gap 7 - 15 mmol/L 11 Glucose 70 - 120 mg/dL 107 Calcium 8.4 - 10.2 mg/dL 9.6 Fingerstick INR INR 2.5 Component Latest Ref Rng 05/01/2023 05/15/2023 BUN 6 - 20 mg/dL 25 (H) Creatinine 0.5 - 1.0 mg/dL 1.2 (H) Estimated Glomerular Filtration Rate >=60 mL/min 44 (L) Sodium 135 - 146 mmol/L 142 Potassium 3.5 - 5.1 mmol/L 5.0 Chloride 98 - 107 mmol/L 100 CO2 22 - 32 mmol/L 31 Anion Gap 7 - 15 mmol/L 11 Glucose 70 - 120 mg/dL 114 Albumin 3.8 - 5.0 g/dL 4.4 AST 10 - 35 U/L 32 Alkaline Phosphatase 35 - 130 U/L 100 Bilirubin, Total <=1.2 mg/dL 0.6 Calcium 8.4 - 10.2 mg/dL 10.3 (H) Protein 6.0 - 8.3 g/dL 7.5 ALT 10 - 35 U/L 24 Triglycerides <=174 mg/dL 104 Cholesterol <200 mg/dL 90 HDL Cholesterol >49 mg/dL 37 (L) Non-HDL Cholesterol <=159 mg/dL 53 LDL Cholesterol <=129 mg/dL 32 TSH 0.27 - 4.20 uIU/mL 2.43 ASSESSMENT: Pacemaker at [facility] 07/02/2023 SND/intermittent CHB s/p ppm 03/2014 Permanent AF on high dose metoprolol and coumadin [id number] (age, female, HTN, CAD) CAD s/p CABG 04/2006 VARGHESE-LAD, SVG-sequential graft LAD diag to Cx OM, SVG-RCA s/p AVR 04/2006 ([facility] SVG-RCA occluded; PCI to RCA) HTN HLD FELICIA b/l Mild GAVIN not on CPAP Moderate mitral regurgitation is present. Moderate to severe tricuspid regurgitation. On supplemental O2 PLAN: -Recommend pacemaker generator change -Discussed procedure and risks which include but are not limited to arrhythmias, strokes, heart attacks, , bleeding and infection with the patient and the family; they expressed an understandingand wish to proceed. -Half dose of coumadin tonight with some broccoli -Hold torsemide morning of procedure -Device and wound check 1 week after the procedure -Cancel f/u with Dr. Doyle -Keep f/u with Bucky as scheduled -EP f/u PRN Lauren Chau DO documented in this encounter Nursing Notes * Meena Perez LPN - 08/01/2023 1:51 PM EDT Examination Room: 10 Name: Shannon Aimee Cruz Date of : (1935) Reason for Visit: New patient consult Interim Hospitalization(s): Denies Problems/Concerns: BUNDLES HANGER 07/02 Chest Pain/SOB: Denies My [facility] is a way you can talk to your provider online through e-mail. Would you like to sign up? I can activate it for you? ALREADY ACTIVE Patient was instructed to not get up on the exam table until directed and assisted by their provider; patient is to remain seated in the chair/ wheelchair/ exam table for fall prevention and safety reasons. Patient is aware to have assistance to step down off exam table with personnel. Patient voiced full comprehension of instructions. documented in this encounter Plan of Treatment Upcoming Encounters Date Type Specialty Care Team Description 08/04/2023 Office Visit Family Medicine Oneida Briggs PA-C [address] [place] [address] 09/12/2023 Office Visit Family Medicine Oneida Briggs PA-C [address] [place] [address] 09/13/2023 Office Visit Cardiology Srini Doyle DO [address] [place] [address] 09/13/2023 Anticoagulation Pharmacy Pharmacist2, [facility] [address] [facility] [place] [address] 10/06/2023 Office Visit Otolaryngology Keely Tanner PA-C [address] [place] [address] 11/20/2023 Office Visit Family Medicine Yaya Frederick MD [address] [place] [address] 12/01/2023 Office Visit Hematology Oncology Agustín Sullivan MD [address] [place] [address] 12/04/2023 Office Visit Cardiology Bucky Calvo PA-C [address] [place] [address] Health Maintenance Due Date Last Done Comments Zoster Vaccines (1 of 2) 1954 COVID-19 Vaccine (2022- season) 2023 09/29/2022, 09/13/2021, 01/05/2021, Additional history exists Depression Screening 02/09/2024 02/08/2023 CKD PHOS USE SMARTSET 83139 05/01/202404/22, 11/04/2022, 02/14/2019 Albumin/Creatinine Ratio 06/15/2024 023, 05/01/2023, 07/04/2022, Additional history exists CKD HGB USE SMARTSET 66755 07/21/202407/21, 07/21/2023, 07/07/2023, Additional history exists DXA Scan 11/09/2024 11/09/2022, 01/21, 11/03/2015, Additional history exists DTaP,Tdap,and Td Vaccines (3 - Td or Tdap) 06/04/2029 06/04/2019, 01/28/2019, 05/26/2008 Pneumococcal Vaccine: 65+ Years Completed 05/24/2016, 11/14/2001 VITAMIN D LEVEL ONCE IN A LIFETIME-USE SMARTSET# [id number] Completed 05/01/2023, 11/04/2022, 02/14/2019, Additional history exists [...] as of this encounter Visit Diagnoses Diagnosis Pacemaker battery depletion- Primary Fitting and adjustment of cardiac pacemaker Intermittent complete atrioventricular block (HCC) Atrioventricular block, complete Chronic atrial fibrillation (HCC) Atrial fibrillation documented in this encounter Additional Health Concerns Infection Onset Date Last Indicated Resolved Time Varicella zoster 08/01/2022 08/01/2022 documented as of this encounter Care Teams Medication Manager Relationship Specialty Start Date End Date Yaya Frederick MD [address] [place], [place] [phone] PCP - General Family Medicine 05/04/21 documented as of this encounter"
--- OUTSIDE RECORDS SUMMARY | 2023-09-12 22:26 | External Medical Summary | Summary of Care ---
Author Name Unknown Organization [facility] Address [address] [facility] [place] [address] Phone [phone] Care Team Providers Care Streetcar Starter Name Role Phone Yaya Frederick MD Primary Care Provider [phone] Encounter Details Date Type Department Care Team Description 05/09/2023 Telephone [facility], [address] [place] [address] Yaya Frederick MD [address] [place] [phone] Allergies Active Allergy Reactions Severity Noted Date [...] as of this encounter (statuses as of 08/08/2023) Medications Medication Sig Dispensed Refills Start Date End Date Status BENADRYL 25 MG PO TABS 1 TABLET EVERY 4 TO 6 HOURS NEEDED 0 Active MAG-OXIDE 400 MG PO TABSIndications:Ch ronic ischemic heart disease one tablet twice a day 60 Tab 5 01/05/2011 Active Additional Information Patient taking differently: 400 mgOralDaily(AM), Reported on 11/21/2022 GRX ANALGESIC BALM EX OINT Apply topically to affected area. 0 07/01/2013 Active Azelastine HCl 0.15 % Nasal SolutionIndication s:Post-nasal discharge Administer into nostril 1 [place] in the morning AND 1 [place] before bedtime. 30 mL 0 11/30/2021 Active Fexofenadine HCl 180 MG Oral Tablet (Lizzette) Take by mouth 1 Tablet daily as needed for Allergies. 90 Tablet 0 01/21/2022 Active Ipratropium [place] 0.03 % Nasal Solution Administer into each nostril 2 Sprays 2 times a day as needed for Rhinitis. 30 mL 5 02/23/2022 Active Warfarin Sodium 2.5 MG Oral TabletIndications: Chronic ischemic heart disease Up to one tablet daily as directed by the Anticoag clinic 100 Tablet 3 08/09/2022 Active Metoprolol Succinate ER 100 MG Oral Tablet Extended Release 24 Hour (toPROL XL)Indications:Hyp ertensive kidney disease with stage 3a chronic kidney disease (HCC) Take 1.5 Tablets (150 mg) by mouth in the morning and 1.5 Tablets (150 mg) before bedtime. 270 Tablet 3 10/03/2022 Active Additional Information Patient taking differently: 100 mgOral BID (.AM/PM), Reported on 05/25/2023 oxygen IN GAS Use as directed. 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 # [id number] Switch Coupler: Wilda Serrano MD [phone] Type 2 diabetes mellitus wit h hemoglobin A1c goal of less than 7.0% 11/03/2006 08/15/2007 Overview: ICD-10 update of inactive term PURE HYPERCHOLESTEROLEM 11/03/2006 10/01/20 09 Overview: Per Lipid Taxonomy. 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/2008 residential current use of anticoagulant therapy 0 05/05/2006 01/23/2009 Overview: ICD-10 update of inactive term Anticoagulation management encounter 05/05/2006 10/03/2019 Unspecified viral infection, in conditions classified elsewhere and of unspecified site 06/08/2005 09/25/2007 Menopause 12/19/2001 12/27/2017 FEM STRESS INCONTINENCE 05/10/2001 12/04/19 02 documented as of this encounter (statuses as of 08/08/2023) Immunizations Name Administration Dates Next Due COVID-19 [...] Miscellaneous Notes * Telephone Encounter - Yaya Frederick MD - 05/09/2023 1:19 PM EDT I called to check on patient I spoke with her and daughter tiogether She is being discharged from [facility] after NSTEMI/stroke admission She did not take the Augmentin sent by Dr Pena on 04/24/23 Was admitted last week in [facility] with above Sometimes gets UTI like symptoms Reviewed last urine cultures Advised to try Augmentin as advised by Dr Pena Repeat urine culture after antibiotics are done Plan from those results documented in this encounter Plan of Treatment Upcoming Encounters Date Type Specialty Care Team Description 08/11/2023 Cardiac Studies Cardiology Ald[facility], [facility] [address] [facility] [place] [id number] 08/23/2023 Telemedicine Nephrology Juno Christianson MD [address] [facility] [place] [address] 09/12/2023 Office Visit Family Medicine Oneida Briggs PA-C [address] [place] [address] 09/13/2023 [facility] Pharmacist2, [facility] [address] [place] [address] 10/06/2023 Office Visit Otolaryngology Keely Tanner PA-C [address] [place] [address] 11/20/2023 Office Visit Family Medicine Yaya Frederick MD [address] [place] [address] 12/01/2023 Office Visit Hematology Oncology Agustín Sullivan MD [address] [place] [address] 12/04/2023 Office Visit Cardiology Bucky Calvo PA-C [address] [place] [address] Health Maintenance Due Date Last Done Comments Zoster Vaccines (1 of 2) 1954 COVID-19 Vaccine ( - 2022- season) 2023 09/29/2022, 09/13/2021, 01/05/2021, Additional history exists Depression Screening 02/09/2024 02/08/2023 CKD PHOS USE SMARTSET 57024 05/01/202404/22, 11/04/2022, 02/14/2019 Albumin/Creatinine Ratio 06/15/20242 023, 05/01/2023, 07/04/2022, Additional history exists CKD HGB USE SMARTSET 55051 07/21/202407/21, 07/21/2023, 07/07/2023, Additional history exists DXA Scan 11/09/2024 11/09/2022, 01/21, 11/03/2015, Additional history exists DTaP,Tdap,and Td Vaccines (3 - Td or Tdap) 06/04/2029 06/04/2019, 01/28/2019, 05/26/2008 Pneumococcal Vaccine: 65+ Years Completed 05/24/2016, 11/14/2001 VITAMIN D LEVEL ONCE IN A LIFETIME-USE SMARTSET# [id number] Completed 05/01/2023, 11/04/2022, 02/14/2019, Additional history exists [...] filedocumented as of this encounter Results * CULTURE, URINE, QUANTITATIVE (05/31/2023 11:44 AM EDT) Urine Urine specimen obtained by clean catch procedure / Unknown Non-blood Collection / Unknown 05/31/2023 11:44 AM EDT 05/31/2023 11:44 AM EDT Narrative LAB[facility]ORY [facility] - 06/02/2023 10:52 AM EDT Duplicate test ordered, refer to [id number] for results. Yaya Frederick MD LAB MICRO - GENERAL ORDERABLES [facility] [address] [place] [address] documented in this encounter Visit Diagnoses Diagnosis Urinary tract infection without hematuria, site unspecified- Primary documented in this encounter Additional Health Concerns Infection Onset Date Last Indicated Resolved Time Varicella zoster 08/01/2022 08/01/2022 ESBL 01/26/2023 05/31/2023 07/30/2023 12:2 1 AM EDT documented as of this encounter Care Teams Streetcar Starter Relationship Specialty Start Date End Date Yaya Frederick MD [address] [place] [phone] PCP - General Family Medicine 05/04/21 documented as of this encounter
--- OUTSIDE RECORDS SUMMARY | 2023-09-12 22:26 | External Medical Summary ---
Author Name Unknown Address Unknown Organization : Laboratory Report Ordering Provider Test Date Status HARRIETTANDREBARI 08/01/2023 10:27:31 Final Therapeutic ranges for non-o perative patients:
Prophylaxsis/treatment of DVT: (Range:2.0-3.0)
Treatment of pulmonary embolism:(Range:2.0-3.0)
Prevention of systemic embolism from:
-tissue heart valves
-acute myocardial infarction
-valvular heart disease
-atrial fibrillation
(Range: 2.0-3.0)
Mechanical prosthetic valves: (Range: 2.5-3.5) Observation Date Value Abnormality Reference (Units ) Status INR in Capillary blood by Coagulation assay 08/01/2023 10:27:31 2.5 (INR) Final Performing Location
--- OUTSIDE RECORDS SUMMARY | 2023-09-12 22:26 | External Medical Summary | Summary of Care ---
Author Name Unknown Organization [facility] Address [address] [facility] [place] [address] Phone [phone] Care Team Providers Care Park Manager Name Role Phone Yaya Frederick MD Primary Care Provider [phone] Reason for Visit * Reason Onset Date Comments Information 08/07/2023 Encounter Details Date Type Department Care Team Description 08/07/2023 Telephone Cardiology, [facility] [address] [facility] [place] [address] Lauren Chau, [address] [place] [address] Information Allergies Active Allergy Reactions Severity Noted Date [...] as of this encounter (statuses as of 08/07/2023) Medications Medication Sig Dispensed Refills Start Date [...] SolutionIndications:P ost-nasal discharge Administer into nostril 1 Tok in the morning AND 1 Tok before bedtime. 30 mL 0 11/30/2021 Active Fexofenadine HCl 180 MG Oral Tablet (Lizzette) Take by mouth 1 Tablet daily as needed for Allergies. 90 Tablet 0 01/21/2022 Active Ipratropium Okay 0.03 % Nasal Solution Administer into each [...] NSTEMI (non-ST elevated myocardial infarction) ([facility]) Take 1 Tablet by mouth in the morning. 90 Tablet 3 05/18/2023 Active Nitroglycerin 0.4 MG Sublingual Tablet Sublingual (Nitrostat)Indication s:NSTEMI (non-ST elevated myocardial infarction) ([facility]) Place 1 Tablet under the tongue [...] failure with reduced ejection fraction) ([facility]) Take 1 Tablet by mouth in the morning. 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 # [id number] Inspector Structural Bonding: Wilda Serrano MD [phone] Type 2 diabetes mellitus wit h hemoglobin A1c goal of less than 7.0% 11/03/2006 08/15/2007 Overview: ICD-10 update of inactive term PURE HYPERCHOLESTEROLEM 11/03/2006 10/01/20 09 Overview: Per Lipid Taxonomy. 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 Chau via tiger text Spoke with pt, agreeable to plan, appreciative. * Telephone Encounter - Germaine Santos LPN - 08/07/2023 8:45 AM EDT Pt c/o tape causing discomfort, itching and redness. Pt does not want to wait until Monday to have checked. Reminded pt to avoid getting bandage wet. documented in this encounter Plan of Treatment Upcoming Encounters Date Type Specialty Care Team Description 08/11/2023 Cardiac Studies Cardiology Phoenix Carlson [address] [place] [address] 08/23/2023 Telemedicine Nephrology Juno Christianson MD [address] [place] [address] 09/12/2023 Office Visit Family Medicine Oneida Briggs PA-C [address] [place] [address] 09/13/2023 Anticoagulation Pharmacy Pharmacist, [facility] [address] [place] [address] 10/06/2023 Office Visit Otolaryngology Keely Tanner PA-C [address] [place] [address] 11/20/2023 Office Visit Family Medicine Yaya Frederick MD [address] [place], [place] [phone] 12/01/2023 Office Visit Hematology Oncology Agustín Sullivan MD [address] [place] [address] 12/04/2023 Office Visit Cardiology Bucky Calvo PA-C [address] [place] [address] Health Maintenance Due Date Last Done Comments Zoster Vaccines (1 of 2) 1954 COVID-19 Vaccine (2022- season) 2023 09/29/2022, 09/13/2021, 01/05/2021, Additional history exists Depression Screening 02/09/2024 02/08/2023 CKD PHOS USE SMARTSET 17332 05/01/202404/22, 11/04/2022, 02/14/2019 Albumin/Creatinine Ratio 06/15/2024 023, 05/01/2023, 07/04/2022, Additional history exists CKD HGB USE SMARTSET 93740 07/21/202407/21, 07/21/2023, 07/07/2023, Additional history exists DXA Scan 11/09/2024 11/09/2022, 01/21, 11/03/2015, Additional history exists DTaP,Tdap,and Td Vaccines (3 - Td or Tdap) 06/04/2029 06/04/2019, 01/28/2019, 05/26/2008 Pneumococcal Vaccine: 65+ Years Completed 05/24/2016, 11/14/2001 VITAMIN D LEVEL ONCE IN A LIFETIME-USE SMARTSET# [id number] Completed 05/01/2023, 11/04/2022, 02/14/2019, Additional history exists [...] documented as of this encounter Care Teams Park Manager Relationship Specialty Start Date End Date Yaya Frederick MD [address] [place] [phone] PCP - General Family Medicine 05/04/21 documented as of this encounter
--- OUTSIDE RECORDS SUMMARY | 2023-09-12 22:26 | External Medical Summary | Summary of Care ---
Author Name Unknown Organization [facility] Address [address] [facility] [address] Phone [phone] Care Team Providers Care Shoe Shanker Name Role Phone Yaya Frederick MD Primary Care Provider [phone] Reason for Visit * Reason Comments Follow Up Encounter Details Date Type Department Care Team Description 08/01/2023 Office Visit [facility] [address] [place] [address] Oneida Briggs PA-C [address] [place] [address] Dyspnea, unspecified type*; Acute on chronic diastolic congestive heart failure (HCC); HTN, goal below 150/90; Hyperlipidemia, unspecified hyperlipidemia type; Mild sleep apnea; Bilateral carotid artery disease, unspecified type (HCC); Persistent atrial fibrillation (HCC); Constipation, unspecified constipation type Allergies Active Allergy Reactions Severity Noted Date [...] NEEDED 0 Active MAG-OXIDE 400 MG PO TABSIndications: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 0 07/01/2013 Active Azelastine HCl 0.15 % Nasal SolutionIndications: Post-nasal discharge Administer into nostril 1 Fulton in the morning AND 1 Fulton before bedtime. 30 mL 0 11/30/2021 Active Fexofenadine HCl 180 MG Oral Tablet (Lizzette) Take by mouth 1 Tablet daily as needed for Allergies. 90 Tablet 0 01/21/2022 Active Ipratropium [place] 0.03 % Nasal Solution Administer into each nostril 2 Sprays 2 times a day as needed for Rhinitis. 30 mL 5 02/23/2022 Active Additional Information Patient not taking.Reported on 07/17/2023 Warfarin Sodium 2.5 MG Oral TabletIndications:Ch ronic ischemic heart disease Up to one tablet daily as directed by the [facility] clinic 100 Tablet 3 08/09/2022 Active Metoprolol [...] 05/09/2023 Active Hydroxyurea 500 MG Oral Capsule (Hydrea)Indications: [...] Tablet (Crestor)Indications :NSTEMI (non-ST elevated myocardial infarction) ([facility]) Take 1 Tablet by mouth in the morning. 90 Tablet 3 05/18/2023 Active Nitroglycerin 0.4 MG Sublingual Tablet Sublingual (Nitrostat)Indicatio ns:NSTEMI (non-ST elevated myocardial infarction) ([facility]) Place 1 Tablet under the tongue as needed for Pain, Chest. May repeat 3 times. If chest pain continues, call 911. 25 Tablet 11 05/18/2023 Active Additional Information Patient not taking.Reported on 07/17/2023 Probiotic Acidophilus Oral Capsule Take by mouth daily. 0 Active Torsemide 20 MG Oral Tablet (Demadex) Take 1 Tablet by mouth in the morning. 30 Tablet 3 06/23/2023 Active Isosorbide Mononitrate ER 60 MG Oral Tablet Extended Release 24 Hour (Imdur)Indications:H FrEF (heart failure with reduced ejection fraction) ([facility]) Take 1 Tablet by mouth in the morning. 30 Tablet 3 07/03/2023 Active Clopidogrel Bisulfate 75 MG Oral Tablet (pLAVix)Indications: HFrEF (heart failure with reduced ejection fraction) ([facility]) Take 1 Tablet by mouth in [...] the morning. 30 Tablet 5 08/01/2023 Active Spironolactone 25 MG Oral Tablet (Aldactone)Indicatio ns:Chronic ischemic heart disease,HTN, goal below 150/90,Old myocardial infarct Take 0.5 Tablets by mouth in the morning. 45 Tablet 3 04/10/2023 08/01/20 Discontinu ed(Medicat ion List Clean Up) Docusate Sodium 100 MG Oral Capsule (Colace) Take 1 Capsule by mouth in the morning and 1 Capsule before bedtime. 60 Capsule 5 08/01/2023 08/01/20 Discontinu ed(Refill) Senna 8.6 MG Oral Tablet Take 1 Tablet by mouth in the morning. 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 # [id number] Security Researcher: Wilda Serrano MD [phone] Type 2 diabetes mellitus wit h hemoglobin A1c goal of less than 7.0% 11/03/2006 08/15/2007 Overview: ICD-10 update of inactive term PURE HYPERCHOLESTEROLEM 11/03/2006 10/01/20 09 Overview: Per Lipid Taxonomy. 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/2008 [facility] current use of anticoagulant therapy 0 05/05/2006 [...] mRNA, LNP-s, No Pre serve, 2-Dose Series ([employer]) 09/13/2021,01/05/2021,12/15/2020 Covid-19, Mrna, Lnp-s, Pf, B ivalent, [...] Sign Reading Time Taken Comments Blood Pressure 118/64 08/01/2023 10:44 AM EDT Pulse 76 08/01/2023 10:44 AM EDT Temperature - - Respiratory Rate 20 08/01/2023 10:44 AM EDT Oxygen Saturation 100% 08/01/2023 10:44 AM EDT Inhaled Oxygen Concentration - - Weight - - Height - - Body Mass Index - - documented in this encounter Patient Instructions * Patient Instructions* Oneida Briggs PA-C - 08/01/2023 11:21 AM EDT Colace twice daily. If still constipated, add Senna daily documented in this encounter Progress Notes * Oneida Briggs PA-C - 08/01/2023 10:38 AM EDT Subjective: Shannon Cruz is a 88 year old female. Chief Complaint Patient presents with Follow Up HPI: Patient presents for follow up for chronic diastolic heart failure. Patient was hopsital[facility] at [facility] from 06/05-06/10 for NSTEMI and CHF exacerbation. Her Losartan and spironolactone have beenheld since that time. She is currently on torsemide 20mg daily. She has been weighing herself regularly at home and reports stable weights around 172lbs. She reports shortness of breath with exertion over the last week. She denies any chest pain or heart palpitations. She reports she continues to feel tired. Has bed that allows HOB to recline. Has not noticed orthopnea but has not been lying flat. Patient reports needing milk of mag approximately 2x a week for constipation. Patient has been advised try to avoid milk of mag in setting of RADHA on CKD. Further discussion reveals that patient has been taking PO magnesium supplementation. I recommend patient stop magnesium. Patient has appointment with cardiology today to discuss pacer replacement. Patient is on torsemide 20mg daily. Patient weighs herself daily 3-4x a week. She has been maintaining weight of 172 on home scales. Recent Cr reviewed. Patient reports she felt dehydrated when she had her labs done. 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 Z79.01 Cardiac pacemaker in situ Z95.0 Sinus node dysfunction (HCC) I49.5 Lumbar spinal stenosis M48.061 Essential thrombocythemia ([facility]) D47.3 Hx of nonmelanoma skin cancer Z85.828 Bilateral leg edema R60.0 Paroxysmal atrial fibrillation ([facility]) I48.0 Obstructive sleep apnea of adult G47.33 Hypertensive kidney disease with stage 3a chronic kidney disease (HCC) I12.9, N18.31 Hx of actinic keratosis Z87.2 Chronic hypoxemic respiratory failure ([facility]) J96.11 RADHA (acute kidney injury) ([facility]) N17.9 HFrEF (heart failure with reduced ejection fraction) ([facility]) I50.20 Current Outpatient Medications Medication Sig Dispense Refill Docusate Sodium 100 MG Oral Capsule (Colace) Take 1 Capsule by mouth in the morning and 1 Capsule before bedtime. 60 Capsule 5 Senna 8.6 MG Oral Tablet Take 1 Tablet by mouth in the morning. 30 Tablet 5 BENADRYL 25 MG PO TABS 1 TABLET EVERY 4 TO 6 HOURS NEEDED MAG-OXIDE 400 MG PO TABS one tablet twice a day (Patient taking differently: Take 1 Tablet by mouthin the morning.) 60 Tab 5 GRX ANALGESIC BALM EX OINT Apply topically to affected area. Azelastine HCl 0.15 % Nasal Solution Administer into nostril 1 Fulton in the morning AND 1 Fulton before bedtime. 30 mL 0 Fexofenadine HCl 180 MG Oral Tablet (Lizzette) Take by mouth 1 Tablet daily as needed for Allergies.90 Tablet 0 Ipratropium [place] 0.03 % Nasal Solution Administer into each nostril 2 Sprays 2 times a day as needed for Rhinitis. (Patient not taking: Reported on 07/17/2023) 30 mL 5 Warfarin Sodium 2.5 MG Oral Tablet Up to one tablet daily as directed by the [facility] clinic 100 Tablet 3 Metoprolol Succinate ER [...] the morning. (Patient not taking: Reported on 06/30/2023) Hydroxyurea 500 MG Oral Capsule (Hydrea) Take [...] call 911. (Patient not taking: Reported on 07/17/2023) 25 Tablet 11 Probiotic Acidophilus Oral Capsule [...] mouth in the morning. 30 Tablet 11 No current facility-administered medications for this visit. Review of patient's allergies indicates: Allergen Reactions Amiodarone Edema face/lips/tongue, Edema Other and Rash legs Keflex [Cephalexin] Rash Unsure if this was a true reaction from Keflex Etodolac lodine; pruritis Penicillins Rash, burning and itching after 2nd dose in her 60's Sulfa Antibiotics Rash Tape [Adhesive Tape] Rash Zithromax [Azithromycin] Throat felt swollen. Denies any shortness of breath. Zocor [Simvastatin] Objective: BP 118/64 (BP Site: Right Arm, BP Position: Sitting, BP Cuff Size: Large) | Pulse 76 | Resp 20 | SpO2 100% General: alert, no distress Heart: regular rate and rhythm, holosystolic murmur Lungs: chest symmetric with normal AP diameter, Diminished in right base Extremities: +1 pitting edema b/l LE Neuro Exam: alert & oriented x 3 with fluent speech, no focal motor/sensory deficits ASSESSMENT: Dyspnea, unspecified type (Primary) - XR CHEST 2 VIEWS Acute on chronic diastolic congestive heart failure (HCC) Paroxysmal atrial fibrillation (HCC) HTN, goal below 150/90 Hyperlipidemia, unspecified hyperlipidemia type Mild sleep apnea Bilateral carotid artery disease, unspecified type (HCC) Constipation - Docusate Sodium 100 MG Oral Capsule (Colace); Take 1 Capsule by mouth in the morning and 1 Capsule before bedtime. - Senna 8.6 MG Oral Tablet; Take 1 Tablet by mouth in the morning. 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 Lung sounds diminished in right base. will obtain chest x-ray. Sating well with chronic supplemental oxygen. Patient has cardiology appointment this afternoon. Greatly appreciate Cardiology input. We will continue patient's torsemide at this time.Continued fluid restriction (patient educated that she shouldstill be drinking at least 36oz of water/fluid/day) Will call patient tomorrow to follow up and consider reevaluation by end of week if no medication changes per cardiology. Patient on Warfarin. INR 2.5 today. Continue metoprolol 100mg BID Patient was previously on losartan (held for RADHA). 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 Continue Plavix HLD: Crestor 20mg daily Constipation: Recommended colace BID. Will also add Senna daily if needed. Trying to avoid use of milk of mag in setting of RADHA on CKD RADHA on CKD Following with nephrology Was on spironolactone previously. Now on torasemide for CHF. Losartan held. Message about resuming sent to nephrology. Essential thrombocythemia (JAK2 mutation positive) Hydroxyurea Mild sleep apnea: Intolerant to CPAP Anxiety: Buspar Follow Up: Return in about 6 weeks (around 09/12/2023), or if symptoms worsen or fail to improve. I spent a total of 40-54 minutes (exact time 42 mins) on the date of service in preparation, delivery, and documentation of the care provided to Shannon Cruz excluding any time spent in the performance of separately billed services. Oneida Briggs PA-C documented in this encounter Plan of Treatment Upcoming Encounters Date Type Specialty Care Team Description 08/01/2023 Office Visit Cardiology Lauren Chau, DO [address] [facility] [place] [address] 08/04/2023 Office Visit Family Medicine Oneida Briggs PA-C [address] [place] [address] 09/12/2023 Office Visit Family Medicine Oneida Briggs PA-C [address] [place] [address] 09/13/2023 Office Visit Cardiology Srini Doyle, [address] [place] [address] 09/13/2023 Anticoagulation Pharmacy Pharmacist, [facility] [address] [place] [address] 10/06/2023 Office Visit Otolaryngology Keely Tanner PA-C [address] [place] [address] 11/20/2023 Office Visit Family Medicine Yaya Frederick MD [address] [place] [address] 12/01/2023 Office Visit Hematology Oncology Agustín Sullivan MD [address] [place] [address] 12/04/2023 Office Visit Cardiology Bucky Calvo PA-C [address] [place] [address] Scheduled Orders Name Type Priority Associated Diagnoses Orde r Schedule XR CHEST 2 VIEWS Medical Imaging Routine Dyspnea, unspecified type Ordered: 08/01/2023 Health Maintenance Due Date Last Done Comments Zoster Vaccines (1 of 2) 1954 COVID-19 Vaccine ( season) 2023 09/29/2022, 09/13/2021, 01/05/2021, Additional history exists Depression Screening 02/09/2024 02/08/2023 CKD PHOS USE SMARTSET 31240 05/01/202404/22, 11/04/2022, 02/14/2019 Albumin/Creatinine Ratio 06/15/2024 023, 05/01/2023, 07/04/2022, Additional history exists CKD HGB USE SMARTSET 22473 07/21/202407/21, 07/21/2023, 07/07/2023, Additional history exists DXA Scan 11/09/2024 11/09/2022, 01/21, 11/03/2015, Additional history exists DTaP,Tdap,and Td Vaccines (3 - Td or Tdap) 06/04/2029 06/04/2019, 01/28/2019, 05/26/2008 Pneumococcal Vaccine: 65+ Years Completed 05/24/2016, 11/14/2001 VITAMIN D LEVEL ONCE IN A LIFETIME-USE SMARTSET# [id number] Completed 05/01/2023, 11/04/2022, 02/14/2019, Additional history exists [...] as of this encounter Visit Diagnoses Diagnosis Dyspnea, unspecified type- Primary Acute on chronic diastolic congestive heart failure (HCC) Acute on chronic diastolic heart failure HTN, goal below 150/90 Hyperlipidemia, unspecified hyperlipidemia type Mild sleep apnea Unspecified sleep apnea Bilateral carotid artery disease, unspecified type (HCC) Persistent atrial fibrillation (HCC) Atrial fibrillation Constipation, unspecified constipation type documented in this encounter Additional Health Concerns Infection Onset Date Last Indicated Resolved Time Varicella zoster 08/01/2022 08/01/2022 documented as of this encounter Care Teams Shoe Shanker Relationship Specialty Start Date End Date Yaya Frederick MD [address] [place] [id number] PCP - General Family Medicine 05/04/21 documented as of this encounter"
--- OUTSIDE RECORDS SUMMARY | 2023-09-12 22:26 | External Medical Summary | Summary of Care ---
Author Name Unknown Organization [facility] Address [address] [facility] [place] [address] Phone [phone] Care Team Providers Care Technology Methodology Consultant Name Role Phone Yaya Frederick MD Primary Care Provider [phone] Reason for Visit * Reason Comments Dosage Adjustment In Person (Anticoag Cl inic) Encounter Details Date Type Department Care Team Description 08/01/2023 Anticoagulation Pharmacy [address] [address] Pharmacist2, [facility] [address] [address] S/P aortic valve replacement* Allergies Active Allergy Reactions Severity Noted Date [...] NEEDED 0 Active MAG-OXIDE 400 MG PO TABSIndications:Fitter / Welder jayda ischemic heart disease one tablet twice a day 60 Tab 5 01/05/2011 Active Additional Information Patient taking differently: 400 mgOralDaily(AM), Reported on 11/21/2022 GRX ANALGESIC BALM EX OINT Apply topically to affected area. 0 07/01/2013 Active Azelastine HCl 0.15 % Nasal SolutionIndications: Post-nasal discharge Administer into nostril 1 [place] in the morning AND 1 Galax before bedtime. 30 mL 0 11/30/2021 Active Fexofenadine HCl 180 MG Oral Tablet (Lizzette) Take by mouth 1 Tablet daily as needed for Allergies. 90 Tablet 0 01/21/2022 Active Ipratropium [place] 0.03 % Nasal Solution Administer into each [...] (Crestor)Indications :NSTEMI (non-ST elevated myocardial infarction) ([facility]) Take 1 Tablet by mouth in the morning. 90 Tablet 3 05/18/2023 Active Nitroglycerin 0.4 MG Sublingual Tablet Sublingual (Nitrostat)Indicatio ns:NSTEMI (non-ST elevated myocardial infarction) ([facility]) Place 1 Tablet under the tongue as [...] (heart failure with reduced ejection fraction) ([facility]) Take 1 Tablet by mouth in the morning. 30 Tablet 3 07/03/2023 Active Clopidogrel Bisulfate 75 MG Oral Tablet (pLAVix)Indications: HFrEF (heart failure with reduced ejection fraction) ([facility]) Take 1 Tablet by mouth in the morning. 30 Tablet 3 07/03/2023 Active Famotidine 20 MG Oral Tablet (Pepcid) Take 1 Tablet by mouth in the morning. 30 Tablet 11 07/11/2023 Active Spironolactone 25 MG Oral Tablet (Aldactone)Indicatio ns:Chronic ischemic heart disease,HTN, goal below 150/90,Old myocardial infarct Take 0.5 Tablets by mouth in the morning. 45 Tablet 3 04/10/2023 08/01/20 23 Discontinu ed(Medicat ion List Clean Up) documented as of this encounter (statuses as [...] in situ 04/17/2014 Sinus node dysfunction 04/17/2014 senior care current use of anticoagulant t herapy [...] Stent Restenosis in Drug-Eluting Stents Project # [id number] Manufacturing Supervisor: Wilda Serrano MD [phone] GENOMICS CARDIO RESEARCH OTHER*[id number] 200611/29/2016 Overview: Renamed Per Clinical Trials Billing Project. 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 # [id number] Manufacturing Supervisor: Wilda Serrano MD [phone] Type 2 diabetes mellitus wit h hemoglobin A1c goal of less than 7.0% 11/03/2006 08/15/2007 Overview: ICD-10 update of inactive term PURE HYPERCHOLESTEROLEM 11/03/2006 10/01/20 09 Overview: Per Lipid Taxonomy. 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 0 05/05/2006 [...] mRNA, LNP-s, No Pre serve, 2-Dose Series ([employer]) 09/13/2021,01/05/2021,12/15/2020 Covid-19, Mrna, Lnp-s, Pf, B ivalent, [...] Sign Reading Time Taken Comments Blood Pressure - - Pulse - - Temperature 36.3 C (97.3 F) 08/01/2023 10:38 AM E DT Respiratory Rate - - Oxygen Saturation - - Inhaled Oxygen Concentration - - Weight 78.5 kg (173 lb) 08/01/2023 10:38 AM EDT Height - - Body Mass Index 34.92 06/30/2023 1:38 PM EDT documented in this encounter Progress Notes * Raquel Alcantara [facility] - 08/01/2023 10:16 AM EDT Medication Therapy Disease Management - Anticoagulation Patient: Shannon Cruz | : 1935 Subjective Patient-Reported Symptoms: Patient Findings Positives: Upcoming invasive procedure (Pt may be scheduling procedure for PACE maker, aware to notify [facility] once scheduled) Negatives: Signs/symptoms of thrombosis, Signs/symptoms of bleeding, Change in health, Change in alcohol use, Change in activity, Missed doses, Extra doses, Change in medications, Change in diet/appetite, Bruising Objective Current Warfarin Dose As of 08/01/2023 Warfarin maintenance plan: 0 mg every Wed; 1.25 mg (2.5 mg x 0.5) all other days INR Result As of 08/01/2023 INR goal: 2.0-3.0 INR used for dosin.5 (08/01/2023) Assessment & Plan Warfarin Plan As of 08/01/2023 Full warfarin instructions: 0 mg every Wed; 1.25 mg all other days No change documented: Raquel Alcantara RPh Next INR check: 09/12/2023 Repeat PT/INR in 6 week(s) via Lab Weekly dose: not changed Additional Dosing Information: Description Sent orders to [facility] at Fax#: [phone] Please call results to [facility] at Or Fax to [phone] Raquel Alcantara [facility] Clinical Pharmacist 08/01/2023, 10:16 AM documented in this encounter Plan of Treatment Upcoming Encounters Date Type Specialty Care Team Description 08/01/2023 Office Visit Cardiology Lauren Chau, DO [address] [facility] [place] [address] 08/04/2023 [facility] Visit [facility] [address] 09/12[facility]2023 [facility] [address] 09/13/2023 Office Visit Cardiology Srini Doyle, DO [address] [place] [address] 09/13/2023 Anticoagulation Pharmacy Pharmacist2, [facility] [address] [place] [address] 10/06/2023 Office Visit Otolaryngology Keely Tanner PA-C [address] [place] [address] 11/20/2023 Office Visit Family Medicine Yaya Frederick MD [address] [place] [address] 12/01/2023 Office Visit Hematology Oncology Agustín Sullivan MD [address] [place] [address] 12/04/2023 Office Visit Cardiology Bucky Calvo PA-C [address] [place] [address] Health Maintenance Due Date Last Done Comments Zoster Vaccines (1 of 2) 1954 COVID-19 Vaccine (2022- season) 2023 09/29/2022, 09/13/2021, 01/05/2021, Additional history exists Depression Screening 02/09/2024 02/08/2023 CKD PHOS USE SMARTSET 54751 05/01/202404/22, 11/04/2022, 02/14/2019 Albumin/Creatinine Ratio 06/15/2024 023, 05/01/2023, 07/04/2022, Additional history exists CKD HGB USE SMARTSET 22909 07/21/202407/21, 07/21/2023, 07/07/2023, Additional history exists DXA Scan 11/09/2024 11/09/2022, 01/21, 11/03/2015, Additional history exists DTaP,Tdap,and Td Vaccines (3 - Td or Tdap) 06/04/2029 06/04/2019, 01/28/2019, 05/26/2008 Pneumococcal Vaccine: 65+ Years Completed 05/24/2016, 11/14/2001 VITAMIN D LEVEL ONCE IN A LIFETIME-USE SMARTSET# [id number] Completed 05/01/2023, 11/04/2022, 02/14/2019, Additional history exists [...] Procedure Name Priority Date/Time Associated Diagnosis Comments INR FINGERSTICK, POINT OF CARE STAT 08/01/2023 10:27 AM EDT S/P aortic valve replacement documented in this encounter Results * INR FINGERSTICK, POINT OF CARE (08/01/2023 10:27 AM EDT) Fingerstick INR 2.5 INR 10:38 AM EDT [facility] Blood 08/01/2023 10:2 7 AM EDT 08/01/2023 10:38 AM EDT Narrative [facility] - 08/01/2023 10:38 AM EDT Therapeutic ranges for non-operative patients: Prophylaxsis/treatment of DVT: (Range:2.0-3.0) Treatment of pulmonary embolism:(Range:2.0-3.0) Prevention of systemic embolism from: -tissue heart valves -acute myocardial infarction -valvular heart disease -atrial fibrillation (Range: 2.0-3.0) Mechanical prosthetic valves: (Range: 2.5-3.5) Raquel Alcantara [facility] LAB POINT OF CA RE TEST DOCKED DEVICE UNSOLICITED RESULTS [facility] [address] [place] [id number] documented in this encounter Visit Diagnoses Diagnosis S/P aortic valve replacement- Primary Heart valve replaced by other means documented in this encounter Additional Health Concerns Infection Onset Date Last Indicated Resolved Time Varicella zoster 08/01/2022 08/01/2022 documented as of this encounter Care Teams Technology Methodology Consultant Relationship Specialty Start Date End Date Yaya Frederick MD [address] [place] [phone] PCP - General Family Medicine 05/04/21 documented as of this encounter"
--- OUTSIDE RECORDS SUMMARY | 2023-09-12 22:27 | External Medical Summary | Summary of Care ---
Author Name Unknown Organization [facility] Address [address] [place] [address] Phone [phone] Care Team Providers Care Technical Operations Vice President Name Role Phone Yaya Frederick MD Primary Care Provider [phone] Reason for Visit * Reason Onset Date Comments Medication Update 07/13/2023 Encounter Details Date Type Department Care Team Description 07/13/2023 Telephone Nephrology, [place] [address] [place] [address] Juno Christianson MD [address] [place] [address] Medication Update Allergies Active Allergy Reactions Severity Noted Date [...] as of this encounter (statuses as of 07/18/2023) Medications Medication Sig Dispensed Refills Start Date [...] SolutionIndications:P ost-nasal discharge Administer into nostril 1 [place] in the morning AND 1 [place] before bedtime. 30 mL 0 11/30/2021 Active Fexofenadine HCl 180 MG Oral Tablet (Lizzette) Take by mouth 1 Tablet daily as needed for Allergies. 90 Tablet 0 01/21/2022 Active Ipratropium [place] 0.03 % Nasal Solution Administer into each nostril 2 Sprays 2 times a day as needed for Rhinitis. 30 mL 5 02/23/2022 Active Additional Information Patient not taking.Reported on 07/17/2023 Warfarin Sodium 2.5 MG Oral TabletIndications:Chr onic [...] as directed. 2L at bedtime 0 Active Spironolactone 25 MG Oral Tablet (Aldactone)Indication s:Chronic ischemic heart disease,HTN, goal below 150/90,Old myocardial infarct Take 0.5 Tablets by mouth in the morning. 45 Tablet 3 04/10/2023 Active Additional Information Patient not taking.Reported on 06/30/2023 Losartan Potassium 25 MG Oral Tablet (Cozaar) [...] the morning. 30 Tablet 11 07/11/2023 Active documented as of this encounter (statuses as of 07/18/2023) Active Problems Problem Noted Date HFrEF (heart [...] as of this encounter (statuses as of 07/18/2023) Resolved Problems Problem Noted Date Resolved Date [...] Stent Restenosis in Drug-Eluting Stents Project # [id number] Telephone Sales Agent: Wilda Serrano MD [phone] GENOMICS CARDIO RESEARCH OTHER*[id number] 200611/29/2016 Overview: Renamed Per Clinical Trials Billing Project. 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 # [id number] Telephone Sales Agent: Wilda Serrano MD [phone] Type 2 diabetes mellitus wit h hemoglobin A1c goal of less than 7.0% 11/03/2006 08/15/2007 Overview: ICD-10 update of inactive term PURE HYPERCHOLESTEROLEM 11/03/2006 10/01/20 09 Overview: Per Lipid Taxonomy. 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 0 05/05/2006 01/23/2009 Overview: ICD-10 update of inactive term Anticoagulation management encounter 05/05/2006 10/03/2019 Unspecified viral infection, in conditions classified elsewhere and of unspecified site 06/08/2005 09/25/2007 Menopause 12/19/2001 12/27/2017 FEM STRESS INCONTINENCE 05/10/2001 12/04/19 02 documented as of this encounter (statuses as of 07/18/2023) Immunizations Name Administration Dates Next Due COVID-19 mRNA, LNP-s, No Pre serve, 2-Dose Series ([facility]) 09/13/2021,01/05/2021,12/15/2020 Covid-19, Mrna, Lnp-s, Pf, B ivalent, 30 Mcg, IM, 12 yrs and above (Pfizer) 09/29/2022 H1N1 2009 Influenza, IM 10/08/2009 Pneumococcal Conjugate Vacc, 13 Valent (Prevnar) 05/24/2016 Pneumococcal Polysaccharide PPV23 (Pneumovax) 11/14/2001 Season Influenza, Quad, PF, Adjuvanted, 65+ Yrs, IM (FLUAD) 08/03/2020 Seasonal Influenza Virus Vac cine, Unspecified Formulation 07/19/2021,08/03/2020,07/23/2019,1005/2018,08/29/2017,07/28/2016,07/05/20 16,07/07/2014,07/22/2013,07/03/2012,0 07/12/2011,07/21/2010,09/12/2009,08/04,07/23/2007,08/02/2006, 5,08/14/2003,10/01/2001 Seasonal Influenza, PF, 6 mo ns & Above, IM , (Flulaval) 07/30/2018,08/29/2017 Seasonal Influenza, Quadriva lent Hd (Fluzone Hd) [...] encounter Miscellaneous Notes * Telephone Encounter - Wilda Campbell LPN - 07/18/2023 11:14 AM EDT Patient called back stating she can not stop taking the MOM. Due to having hemorrhoids she has great difficulty passing stool that is not the consistency of mush. She reports taking the milk of mag last night because she needed to have a bowel movement and felt nauseated. She is concerned that the medication has bad effects on the kidneys. She is open to any further suggestions that can help as she has tried a senna, and other medications. * Telephone Encounter - Wilda Campbell LPN - 07/13/2023 3:44 PM EDT Attempted to follow up on holding MOM. Message to return call to office to verify she's been holding it. documented in this encounter Plan of Treatment Upcoming Encounters Date Type Specialty Care Team Description 08/01/2023 Office Visit Family Medicine Oneida Briggs PA-C [address] [place], [place] [phone] 08/01/2023 Anticoagulation Pharmacy Pharmacist, [facility] [address] [place], [place] [phone] 09/13/2023 Office Visit Cardiology Srini Doyle DO [address] [place] [address] 10/06/2023 Office Visit Otolaryngology Keely Tanner PA-C [address] [place] [address] 11/20/2023 Office Visit Family Medicine Yaya Frederick MD [address] [place] [address] 12/01/2023 Office Visit Hematology Oncology Agustín Sullivan MD [address] [facility] [address] 12/04/2023 Office Visit Cardiology Bucky Calvo PA-C [address] [place] [address] Health Maintenance Due Date Last Done Comments Zoster Vaccines (1 of 2) 1954 Depression Screening 02/09/2024 02/08/2023 CKD PHOS USE SMARTSET 11479 05/01/2024 07/, 11/04/2022, 02/14/2019 Albumin/Creatinine Ratio 06/15/2024 023, 05/01/2023, 07/04/2022, Additional history exists CKD HGB USE SMARTSET 55487 07/07/202407/07, 07/07/2023, 06/13/2023, Additional history exists DXA Scan 11/09/2024 11/09/2022, 01/21, 11/03/2015, Additional history exists DTaP,Tdap,and Td Vaccines (3 - Td or Tdap) 06/04/2029 06/04/2019, 01/28/2019, 05/26/2008 Pneumococcal Vaccine: 65+ Years Completed 05/24/2016, 11/14/2001 COVID-19 Vaccine Completed 09/29/2022, , 01/05/2021, Additional history exists VITAMIN D LEVEL ONCE IN A LIFETIME-USE SMARTSET# 02758 Completed 05/01/2023, 11/04/2022, 02/14/2019, Additional history exists [...] Varicella zoster 08/01/2022 08/01/2022 ESBL 01/26/2023 05/31/2023 documented as of this encounter Care Teams Technical Operations Vice President Relationship Specialty Start Date End Date Yaya Frederick MD [address] [place] [address] PCP - General Family Medicine 05/04/21 documented as of this encounter
--- OUTSIDE RECORDS SUMMARY | 2023-09-12 22:27 | External Medical Summary ---
Author Name Unknown Address Unknown Organization K01:[facility] [place] [address] [facility] [place] [id number] Laboratory Report Ordering Provider Test Date Status JER FITCH 07/21/2023 09:24:16 Final Observation Date Value Abnormality Reference (Units ) Status SYNC LEUKOCYTES IN BLOOD BY AUTOMATED COUNT 07/21/2023 09:24:16 6.22 4.00-10.80 (K/uL) Final Segs 07/21/2023 09:24:16 71.6 40.0-75.0 (%) Final Lymphs % 07/21/2023 09:24:16 11.4 Below low normal 18.0-42.0 (%) Final Monos 07/21/2023 09:24:16 11.4 Above high normal 1.0-11.0 (%) Final Eosinophils 07/21/2023 09:24:16 4.2 0.0-6.0 (%) Final Basos 07/21/2023 09:24:16 1.1 0.0-2.0 (%) Final Immature Granulocyte, Percent 07/21/2023 09:24:16 0.3 0.0-2.0 (%) Final Absolute Segs 07/21/2023 09:24:16 4.45 1.80-7.70 (K/uL) Final Lymphs, absolute 07/21/2023 09:24:16 0.71 Below low normal 1.00-4.80 (K/ul) Final Monos, Abs 07/21/2023 09:24:16 0.71 0.00-1.10 (K/uL) Final Eos, Abs 07/21/2023 09:24:16 0.26 0.00-0.70 (K/uL) Final Basos, Abs 07/21/2023 09:24:16 0.07 0.00-0.20 (K/uL) Final Immature Granulocytes, Number 07/21/2023 09:24:16 0.02 0.00-0.20 (K/uL) Final Performing Location [facility] [place] [address] [facility] [id number]
--- OUTSIDE RECORDS SUMMARY | 2023-09-12 22:27 | External Medical Summary | Summary of Care ---
Author Name Unknown Organization [facility] Address [address] [place] [address] Phone [phone] Care Team Providers Care Consulting Practice Manager Name Role Phone Yaya Frederick MD Primary Care Provider [phone] Reason for Visit * Reason Onset Date Comments Medication Update 07/13/2023 Encounter Details Date Type Department Care Team Description 07/13/2023 Telephone Nephrology, [place] [address] [place] [address] Juno Christianson MD [address] [place] [address] Medication Update Allergies Active Allergy [...] as of this encounter (statuses as of 07/13/2023) Medications Medication Sig Dispensed Refills Start Date [...] SolutionIndications:P ost-nasal discharge Administer into nostril 1 [place] in the morning AND 1 [place] before bedtime. 30 mL 0 11/30/2021 Active Fexofenadine HCl 180 MG Oral Tablet (Lizzette) Take by mouth 1 Tablet daily as needed for Allergies. 90 Tablet 0 01/21/2022 Active Ipratropium [place] 0.03 % Nasal Solution Administer into each [...] Tablet (Crestor)Indications: NSTEMI (non-ST elevated myocardial infarction) ([facility]) Take 1 Tablet by mouth in the morning. 90 Tablet 3 05/18/2023 Active Nitroglycerin 0.4 MG Sublingual Tablet Sublingual (Nitrostat)Indication s:NSTEMI (non-ST elevated myocardial infarction) ([facility]) Place 1 Tablet under the tongue as needed for Pain, Chest. May repeat 3 times. If chest pain continues, call 911. 25 Tablet 11 05/18/2023 Active Probiotic Acidophilus Oral Capsule Take by mouth daily. 0 Active Torsemide 20 MG Oral Tablet (Demadex) Take 1 Tablet by mouth in the morning. 30 Tablet 3 06/23/2023 Active Isosorbide Mononitrate ER 60 MG Oral Tablet Extended Release 24 Hour (Imdur)Indications:HF rEF (heart failure with reduced ejection fraction) ([facility]) Take 1 Tablet by mouth in the morning. 30 Tablet 3 07/03/2023 Active Clopidogrel Bisulfate 75 MG Oral Tablet (pLAVix)Indications:H FrEF (heart failure with reduced ejection fraction) ([facility]) Take 1 Tablet by mouth in the morning. 30 Tablet 3 07/03/2023 Active Famotidine 20 MG Oral Tablet (Pepcid) Take 1 Tablet by mouth in the morning. 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 # [id number] Drop Forger Helper: Wilda Serrano MD [phone] Type 2 diabetes mellitus wit h hemoglobin [...] as of this encounter (statuses as of 07/13/2023) Immunizations Name Administration Dates Next Due COVID-19 mRNA, LNP-s, No Pre serve, 2-Dose Series (Pfizer) 09/13/2021,01/05/2021,12/15/2020 Covid-19, Mrna, Lnp-s, Pf, B ivalent, 30 Mcg, IM, 12 yrs and above (Pfizer) 09/29/2022 H1N1 2009 Influenza, IM 10/08/2009 Pneumococcal Conjugate Vacc, 13 Valent (Prevnar) 05/24/2016 Season Influenza, Quad, PF, Adjuvanted, 65+ Yrs, IM (FLUAD) 08/03/2020 Seasonal Influenza Virus Vac cine, Unspecified Formulation 07/19/2021,08/03/2020,07/23/2019,07/30,08/29/2017,07/28/2016,07/05/2016 ,07/07/2014,07/22/2013,07/03/2012,06/24,07/21/2010,09/12/2009, 8,07/23/2007,08/02/2006,08/23/2005,,10/01/2001 Seasonal Influenza, PF, 6 mo ns & [...] Encounters Date Type Specialty Care Team Description 07/17/2023 Office Visit Cardiology Srini Doyle DO [address] [place] [address] 08/01/2023 Office Visit Family Medicine Oneida Briggs PA-C [address] [place] [address] 08/01/2023 Anticoagulation Pharmacy Pharmacist, [facility] [address] [place] [address] 09/13/2023 Office Visit Cardiology Srini Doyle DO [address] [place] [address] 10/06/2023 Office Visit Otolaryngology Keely Tanner PA-C [address] [place] [address] 11/20/2023 Office Visit Family Medicine Yaya Frederick MD [address] [place] [address] 12/01/2023 Office Visit Hematology Oncology Agustín Sullivan MD [address] [place] [address], [place] [phone] 12/04/2023 Office Visit Cardiology Bucky Calvo PA-C [address] [place] [address] Health Maintenance Due Date Last Done Comments Zoster Vaccines (1 of 2) 1954 Depression Screening 02/09/2024 02/08/2023 CKD PHOS USE SMARTSET 71601 05/01/202404/22, 11/04/2022, 02/14/2019 Albumin/Creatinine Ratio 06/15/20242 023, 05/01/2023, 07/04/2022, Additional history exists CKD HGB USE SMARTSET 05444 07/07/202407/07, 07/07/2023, 06/13/2023, Additional history exists DXA Scan 11/09/2024 11/09/2022, 01/21, 11/03/2015, Additional history exists DTaP,Tdap,and Td Vaccines (3 - Td or Tdap) 06/04/2029 06/04/2019, 01/28/2019, 05/26/2008 Pneumococcal Vaccine: 65+ Years Completed 05/24/2016, 11/14/2001 COVID-19 Vaccine Completed 09/29/2022, , 01/05/2021, Additional history exists VITAMIN D LEVEL ONCE IN A LIFETIME-USE SMARTSET# 09102 Completed 05/01/2023, 11/04/2022, 02/14/2019, Additional history exists [...] documented as of this encounter Care Teams Consulting Practice Manager Relationship Specialty Start Date End Date Yaya Frederick MD [address] [place] [address] PCP - General Family Medicine 05/04/21 documented as of this encounter
--- OUTSIDE RECORDS SUMMARY | 2023-09-12 22:27 | External Medical Summary | Summary of Care ---
Author Name Unknown Organization [facility] Address [address] [facility] [place] [address] Phone [phone] Care Team Providers Care Explosive Ordnance Manager Name Role Phone Yaya Frederick MD Primary Care Provider [phone] Reason for Visit * Reason Onset Date Comments Test Results Lab 07/24/2023 Encounter Details Date Type Department Care Team Description 07/24/2023 Telephone Hematology/Oncology [facility] [place] [address] [place] [address] Agustín Sullivan MD [address] [place] [address] Test Results Lab Allergies Active Allergy Reactions Severity Noted Date [...] as of this encounter (statuses as of 07/24/2023) Medications Medication Sig Dispensed Refills Start Date [...] SolutionIndications:P ost-nasal discharge Administer into nostril 1 [place] in the morning AND 1 [place] before bedtime. 30 mL 0 11/30/2021 Active Fexofenadine HCl 180 MG Oral Tablet (Lizzette) Take by mouth 1 Tablet daily as needed for Allergies. 90 Tablet 0 01/21/2022 Active Ipratropium [place] 0.03 % Nasal Solution Administer into each [...] Tablet (Crestor)Indications: NSTEMI (non-ST elevated myocardial infarction) ([facility]) Take 1 Tablet by mouth in the morning. 90 Tablet 3 05/18/2023 Active Nitroglycerin 0.4 MG Sublingual Tablet Sublingual (Nitrostat)Indication s:NSTEMI (non-ST elevated myocardial infarction) ([facility]) Place 1 Tablet under the tongue [...] rEF (heart failure with reduced ejection fraction) ([facility]) Take 1 Tablet by mouth in the morning. 30 Tablet 3 07/03/2023 Active Clopidogrel Bisulfate 75 MG Oral Tablet (pLAVix)Indications:H FrEF (heart failure with reduced ejection fraction) ([facility]) Take 1 Tablet by mouth in the morning. 30 Tablet 3 07/03/2023 Active Famotidine 20 MG Oral Tablet (Pepcid) Take 1 Tablet by mouth in the morning. 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 # [id number] [place]: Wilda Serrano MD [phone] Type 2 diabetes mellitus wit h hemoglobin A1c goal of less than 7.0% 11/03/2006 08/15/2007 Overview: ICD-10 update of inactive term PURE HYPERCHOLESTEROLEM 11/03/2006 10/01/20 09 Overview: Per Lipid Taxonomy. 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 0 05/05/2006 01/23/2009 Overview: ICD-10 update of inactive term Anticoagulation management encounter 05/05/2006 10/03/2019 Unspecified viral infection, in conditions classified elsewhere and of unspecified site 06/08/2005 09/25/2007 Menopause 12/19/2001 12/27/2017 FEM STRESS INCONTINENCE 05/10/2001 12/04/19 02 documented as of this encounter (statuses as of 07/24/2023) Immunizations Name Administration Dates Next Due COVID-19 mRNA, LNP-s, No Pre serve, 2-Dose Series ([facility]) 09/13/2021,01/05/2021,12/15/2020 Covid-19, Mrna, Lnp-s, Pf, B ivalent, [...] Telephone Encounter - Magi Ball LPN - 07/24/2023 11:39 AM EDT Notified patient per [employer] message, patient is active, orders entered for cbcd in 3 months ----- Message from Agustín Sullivan MD sent at 07/23/2023 5:48 PM EDT ----- Blood workup done on 07/21/2023: -WBC 6200, H&H of 11.6/37.8, Platelet count [id number]. -BUN/Creat: 41/1.7 She is a case of essential thrombocythemia, JAK2 mutation positive Currently on hydroxyurea at 500 mg 5 days a week and continue hydroxyurea at the same dose. Repeat CBCD in about 3 month's time. documented in this encounter Plan of Treatment Upcoming Encounters Date Type Specialty Care Team Description 08/01/2023 Office Visit Family Medicine Oneida Briggs PA-C [address] [place] [address] 08/01/2023 Anticoagulation Pharmacy Pharmacist2, [facility] [address] [place] [address] 08/01/2023 Office Visit Cardiology Lauren Chau, DO [address] [facility] [place] [address] 09/13/2023 Office Visit Cardiology Srini Doyle DO [address] [place] [address] 10/06/2023 Office Visit Otolaryngology Keely Tanner PA-C [address] [place] [address] 11/20/2023 Office Visit Family Medicine Yaya Frederick MD [address] [place] [address] 12/01/2023 Office Visit Hematology Oncology Agustín Sullivan MD [address] [facility] [place] [address] 12/04/2023 Office Visit Cardiology Bucky Calvo PA-C [address] [place] [address] Scheduled Orders Name Type Priority Associated Diagnoses Orde r Schedule CBC WITH WBC DIFFERENTIAL Lab STAT Essential thrombocythemia (HCC) Expected: 10/24/2023 (Approximate), Expires: 07/24/2024 Health Maintenance Due Date Last Done Comments Zoster Vaccines (1 of 2) 1954 Depression Screening 02/09/2024 02/08/2023 CKD PHOS USE SMARTSET 09750 05/01/202404/22, 11/04/2022, 02/14/2019 Albumin/Creatinine Ratio 06/15/2024 023, 05/01/2023, 07/04/2022, Additional history exists CKD HGB USE SMARTSET 42477 07/21/202407/21, 07/21/2023, 07/07/2023, Additional history exists DXA Scan 11/09/2024 11/09/2022, 01/21, 11/03/2015, Additional history exists DTaP,Tdap,and Td Vaccines (3 - Td or Tdap) 06/04/2029 06/04/2019, 01/28/2019, 05/26/2008 Pneumococcal Vaccine: 65+ Years Completed 05/24/2016, 11/14/2001 COVID-19 Vaccine Completed 09/29/2022, , 01/05/2021, Additional history exists VITAMIN D LEVEL ONCE IN A LIFETIME-USE SMARTSET# 58630 Completed 05/01/2023, 11/04/2022, 02/14/2019, Additional history exists [...] documented as of this encounter Care Teams Explosive Ordnance Manager Relationship Specialty Start Date End Date Yaya Frederick MD [address] [place] [address] PCP - General Family Medicine 05/04/21 documented as of this encounter
--- OUTSIDE RECORDS SUMMARY | 2023-09-12 22:27 | External Medical Summary | Summary of Care ---
Author Name Unknown Organization [facility] Address [address] [place] [address] Phone [phone] Care Team Providers Care Lapel Baster Name Role Phone Yaya Frederick MD Primary Care Provider [phone] Reason for Visit * Reason Onset Date Comments Medication Update 07/13/2023 Encounter Details Date Type Department Care Team Description 07/13/2023 Telephone Nephrology, [place] [address] [place] [address] Juno Christianson MD [address] [place] [address] Medication Update Allergies Active Allergy [...] SolutionIndications:P ost-nasal discharge Administer into nostril 1 [place] in the morning AND 1 [place] before bedtime. 30 mL 0 11/30/2021 Active Fexofenadine HCl 180 MG Oral Tablet (Lizzette) Take by mouth 1 Tablet daily as needed for Allergies. 90 Tablet 0 01/21/2022 Active Ipratropium Broad Top 0.03 % Nasal Solution Administer into each [...] 500 MG Oral Capsule (Hydrea)Indications:E ssential thrombocythemia ([facility]) Take 1 capsule by mouth 5 days [...] Tablet (Crestor)Indications: NSTEMI (non-ST elevated myocardial infarction) ([facility]) Take 1 Tablet by mouth in the morning. 90 Tablet 3 05/18/2023 Active Nitroglycerin 0.4 MG Sublingual Tablet Sublingual (Nitrostat)Indication s:NSTEMI (non-ST elevated myocardial infarction) ([facility]) Place 1 Tablet under the [...] rEF (heart failure with reduced ejection fraction) ([facility]) Take 1 Tablet by mouth in the morning. 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 # [id number] Blacksmith Assistant: Wilda Serrano MD [phone] Type 2 diabetes mellitus wit h hemoglobin A1c goal of less than 7.0% 11/03/2006 08/15/2007 Overview: ICD-10 update of inactive term PURE HYPERCHOLESTEROLEM 11/03/2006 10/01/20 09 Overview: Per Lipid Taxonomy. 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 Spoke with patient. Relayed message below. Pt verbalized understanding and had no further questions. * Telephone Encounter - Wilda Campbell LPN [...] Office Visit Family Medicine Oneida Briggs PA-C [address] [place] [address] 08/01/2023 Anticoagulation Pharmacy Pharmacist, [address] [address] 08/01/2023 Office Visit Cardiology Lauren Chau, DO [address] [facility] [place] [address] 09/13/2023 Office Visit Cardiology Srini Doyle, DO [address] [place] [address] 10/06/2023 Office Visit Otolaryngology Keely Tanner PA-C [address] [place] [address] 11/20/2023 Office Visit Family Medicine Yaya Frederick MD [address] [place] [address] 12/01/2023 Office Visit Hematology Oncology Agustín Sullivan MD [address] [place] [address] 12/04/2023 Office Visit Cardiology Bucky Calvo PA-C [address] [place] [address] Health Maintenance Due Date Last Done Comments Zoster Vaccines (1 of 2) 1954 Depression Screening 02/09/2024 02/08/2023 CKD PHOS USE SMARTSET 74756 05/01/202404/22, 11/04/2022, 02/14/2019 Albumin/Creatinine Ratio 06/15/2024 023, 05/01/2023, 07/04/2022, Additional history exists CKD HGB USE SMARTSET 25729 07/21/202407/21, 07/21/2023, 07/07/2023, Additional history exists DXA Scan 11/09/2024 11/09/2022, 01/21, 11/03/2015, Additional history exists DTaP,Tdap,and Td Vaccines (3 - Td or Tdap) 06/04/2029 06/04/2019, 01/28/2019, 05/26/2008 Pneumococcal Vaccine: 65+ Years Completed 05/24/2016, 11/14/2001 COVID-19 Vaccine Completed 09/29/2022, , 01/05/2021, Additional history exists VITAMIN D LEVEL ONCE IN A LIFETIME-USE SMARTSET# [id number] Completed 05/01/2023, 11/04/2022, 02/14/2019, Additional history exists [...] documented as of this encounter Care Teams Lapel Baster Relationship Specialty Start Date End Date Yaya Frederick MD [address] [place] [address] [phone] PCP - General Family Medicine 05/04/21 documented as of this encounter
--- OUTSIDE RECORDS SUMMARY | 2023-09-12 22:27 | External Medical Summary | Summary of Care ---
Author Name Unknown Organization [facility] Address [address] [facility] [place] [address] Phone [phone] Care Team Providers Care Roof Shingler Name Role Phone Yaya Frederick MD Primary Care Provider [phone] Encounter Details Date Type Department Care Team Description 07/14/2023 [facility] [place] [phone] [address] [place] [address] Allergies Active Allergy Reactions Severity Noted Date [...] as of this encounter (statuses as of 07/14/2023) Medications Medication Sig Dispensed Refills Start Date [...] SolutionIndications:P ost-nasal discharge Administer into nostril 1 [place] in the morning AND 1 [place] before bedtime. 30 mL 0 11/30/2021 Active Fexofenadine HCl 180 MG Oral Tablet (Lizzette) Take by mouth 1 Tablet daily as needed for Allergies. 90 Tablet 0 01/21/2022 Active Ipratropium Roundup 0.03 % Nasal Solution Administer into each [...] NSTEMI (non-ST elevated myocardial infarction) ([facility]) Take 1 Tablet by mouth in the morning. 90 Tablet 3 05/18/2023 Active Nitroglycerin 0.4 MG Sublingual Tablet Sublingual (Nitrostat)Indication s:NSTEMI (non-ST elevated myocardial infarction) ([facility]) Place 1 Tablet under the [...] failure with reduced ejection fraction) ([facility]) Take 1 Tablet by mouth in the morning. 30 Tablet 3 07/03/2023 Active Clopidogrel Bisulfate 75 MG Oral Tablet (pLAVix)Indications:H FrEF (heart failure with reduced ejection fraction) ([facility]) Take 1 Tablet by mouth in the morning. 30 Tablet 3 07/03/2023 Active Famotidine 20 MG Oral Tablet (Pepcid) Take 1 Tablet by mouth in the morning. 30 Tablet 11 07/11/2023 Active Sulfamethoxazole-Trim ethoprim 400-80 MG Oral Tablet (Bactrim) Take 1 Tablet by mouth in the morning and 1 Tablet before bedtime. Do all this for 3 days. 6 Tablet 0 07/13/2023 Active documented as of this encounter (statuses as of 07/14/2023) Active Problems Problem Noted Date HFrEF (heart [...] as of this encounter (statuses as of 07/14/2023) Resolved Problems Problem Noted Date Resolved Date [...] Stent Restenosis in Drug-Eluting Stents Project # [id number] Plug Wirer: Wilda Serrano MD [phone] GENOM[employer] CARDIO RESEARCH OTHER*[id number] 200611/29/2016 Overview: Renamed Per Clinical Trials Billing Project. 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 # [id number] Plug Wirer: Wilda Serrano MD [phone] Type 2 diabetes mellitus wit h hemoglobin A1c goal of less than 7.0% 11/03/2006 08/15/2007 Overview: ICD-10 update of inactive term PURE HYPERCHOLESTEROLEM 11/03/2006 10/01/20 09 Overview: Per Lipid Taxonomy. 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 0 05/05/2006 01/23/2009 Overview: ICD-10 update of inactive term Anticoagulation management encounter 05/05/2006 10/03/2019 Unspecified viral infection, in conditions classified elsewhere and of unspecified site 06/08/2005 09/25/2007 Menopause 12/19/2001 12/27/2017 FEM STRESS INCONTINENCE 05/10/2001 12/04/19 02 documented as of this encounter (statuses as of 07/14/2023) Immunizations Name Administration Dates Next Due COVID-19 mRNA, LNP-s, No Pre serve, 2-Dose Series ([email or web address]) 09/13/2021,01/05/2021,12/15/2020 Covid-19, Mrna, Lnp-s, Pf, B ivalent, [...] encounter Miscellaneous Notes * Telephone Encounter - Julee Feliciano RPh - 07/14/2023 8:33 AM EDT Images from the original note were not included. Received BPA for patient: Julee Feliciano PharmD, [facility] Clinical Pharmacist 07/14/2023, 8:33 AM documented in this encounter Plan of Treatment Upcoming Encounters Date Type Specialty Care Team Description 07/17/2023 Office Visit Cardiology Srini Doyle, DO [address] [place] [address] 08/01/2023 Office Visit Family Medicine Oneida Briggs PA-C [address] [place] [address] 08/01/2023 Anticoagulation Pharmacy Pharmacist2, [facility] [address] [place] [address] 09/13/2023 Office Visit Cardiology Srini Doyle DO [address] [place] [address] 10/06/2023 Office Visit Otolaryngology Keely Tanner PA-C [address] [place] [address] 11/20/2023 Office Visit Family Medicine Yaya Frederick MD [address] [place] [address] 12/01/2023 Office Visit Hematology Oncology Agustín Sullivan MD [address] [place] [address] 12/04/2023 Office Visit Cardiology Bucky Calvo PA-C [address] [place] [address] Health Maintenance Due Date Last Done Comments Zoster Vaccines (1 of 2) 1954 Depression Screening 02/09/2024 02/08/2023 CKD PHOS USE SMARTSET 65255 05/01/202404/22, 11/04/2022, 02/14/2019 Albumin/Creatinine Ratio 06/15/2024 023, 05/01/2023, 07/04/2022, Additional history exists CKD HGB USE SMARTSET 72791 07/07/202407/07, 07/07/2023, 06/13/2023, Additional history exists DXA Scan 11/09/2024 11/09/2022, 01/21, 11/03/2015, Additional history exists DTaP,Tdap,and Td Vaccines (3 - Td or Tdap) 06/04/2029 06/04/2019, 01/28/2019, 05/26/2008 Pneumococcal Vaccine: 65+ Years Completed 05/24/2016, 11/14/2001 COVID-19 Vaccine Completed 09/29/2022, , 01/05/2021, Additional history exists VITAMIN D LEVEL ONCE IN A LIFETIME-USE SMARTSET# [id number] Completed 05/01/2023, 11/04/2022, 02/14/2019, Additional history exists [...] documented as of this encounter Care Teams Roof Shingler Relationship Specialty Start Date End Date Yaya Frederick MD [address] [place] [address], [place] [address] PCP - General Family Medicine 05/04/21 documented as of this encounter
--- OUTSIDE RECORDS SUMMARY | 2023-09-12 22:27 | External Medical Summary | Summary of Care ---
Author Name Unknown Organization [facility] Address [address] [facility] [place] [address] Phone [phone] Care Team Providers Care Fiberglass Roving Winder Name Role Phone Yaya Frederick MD Primary Care Provider [phone] Reason for Visit * Reason Comments Follow Up Encounter Details Date Type Department Care Team Description 07/17/2023 Office Visit Cardiology, [facility] [address] [place] [phone] Srini Doyle, [address] [place] [phone] CHR ISCHEMIC HRT DIS NOS*; S/P aortic valve replacement; Persistent atrial fibrillation (HCC); S/P CABG (coronary artery bypass graft); Cardiac pacemaker in situ; HFrEF (heart failure with reduced ejection fraction) ([facility]) Allergies Active Allergy Reactions Severity Noted Date [...] as of this encounter (statuses as of 07/17/2023) Medications Medication Sig Dispensed Refills Start Date [...] SolutionIndications:P ost-nasal discharge Administer into nostril 1 [place] in the morning AND 1 [place] before bedtime. 30 mL 0 11/30/2021 Active Fexofenadine HCl 180 MG Oral Tablet (Lizzette) Take by mouth 1 Tablet daily as needed for Allergies. 90 Tablet 0 01/21/2022 Active Ipratropium Brixey 0.03 % Nasal Solution Administer into each [...] Oral Capsule (Hydrea)Indications:E ssential thrombocythemia ([facility]) Take 1 capsule by mouth 5 days [...] NSTEMI (non-ST elevated myocardial infarction) ([facility]) Take 1 Tablet by mouth in the morning. 90 Tablet 3 05/18/2023 Active Nitroglycerin 0.4 MG Sublingual Tablet Sublingual (Nitrostat)Indication s:NSTEMI (non-ST elevated myocardial infarction) ([facility]) Place 1 Tablet under the tongue as [...] failure with reduced ejection fraction) ([facility]) Take 1 Tablet by mouth in the morning. 30 Tablet 3 07/03/2023 Active Clopidogrel Bisulfate 75 MG Oral Tablet (pLAVix)Indications:H FrEF (heart failure with reduced ejection fraction) ([facility]) Take 1 Tablet by mouth in the morning. 30 Tablet 3 07/03/2023 Active Famotidine 20 MG Oral Tablet (Pepcid) Take 1 Tablet by mouth in the morning. 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 # [id number] Systems Specialist: Wilda Serrano MD [phone] Type 2 diabetes mellitus wit h hemoglobin [...] as of this encounter (statuses as of 07/17/2023) Immunizations Name Administration Dates Next Due COVID-19 [...] Sign Reading Time Taken Comments Blood Pressure 114/72 07/17/2023 3:06 PM EDT Pulse 86 07/17/2023 3:06 PM EDT Temperature - - Respiratory Rate 18 07/17/2023 3:06 PM EDT Oxygen Saturation 96% 07/17/2023 3:06 PM EDT 02 2L/min Inhaled Oxygen Concentration - - Weight 78 kg (172 lb) 07/17/2023 3:06 PM EDT Height - - Body Mass Index 34.72 06/30/2023 1:38 PM EDT documented in this encounter Progress Notes * Srini Doyle, DO - 07/17/2023 3:25 PM EDT Cardiology Outpatient Follow-up Shannon Pearcejaya is a 88 year old female who is seen for follow-up of hospital admission. HPI: This is an 88-year-old female with a complex previous cardiac history. She had coronary artery bypass surgery and an AVR in 2005, previous PCI, atrial fibrillation and chronic diastolic heart failure. In April she was admitted to the hospital with a non STEMI. She was given the option of transfer toa tertiary care center for complex intervention but decided to have medical management and was discharged. She returned 10 days later with chest pain to the emergency department where she refused admission. The patient was readmitted in mid May with with recurrent heart failure and a non STEMI. Eventually she was well enough to be discharged home. According the patient they took approximately 10 lb of fluid weight away with diuresis. She is here today with 1 of her sons. Things seem to be going well all things considered. She still lives independently with her son being about 2 miles away. Past Medical History: Diagnosis Date Anticoagulation management encounter 05/05/2006 Atrial fibrillation (HCC) Carotid Stenosis, non-symptomatic 16-49 % bilat. 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 Z79.01 Cardiac pacemaker in situ Z95.0 Sinus node dysfunction (HCC) I49.5 Lumbar spinal stenosis M48.061 Essential thrombocythemia ([facility]) D47.3 Hx of nonmelanoma skin cancer Z85.828 Bilateral leg edema R60.0 Paroxysmal atrial fibrillation (HCC) I48.0 Obstructive sleep apnea of adult G47.33 Hypertensive kidney disease with stage 3a chronic kidney disease (HCC) I12.9, N18.31 Hx of actinic keratosis Z87.2 Chronic hypoxemic respiratory failure ([facility]) J96.11 RADHA (acute kidney injury) ([facility]) N17.9 HFrEF (heart failure with reduced ejection fraction) ([facility]) I50.20 Past Surgical History: Procedure Laterality Date ATTACH BLADDER/URETHRA, SIMPLE 11/24 [place] CARDIAC CATH-CARDIOLOGY ONLY 04/27 COLONOSCOPY 09/26 polyp- adenoma repeat 10/01 COLONOSCOPY THRU STOMA, W/BIOPSY 07/29/13 adenomatous polyp CYSTOSCOPY 07/12/05 INSERT/REPLACE PULSE GEN ONLY, DOUBLE 04/08/2014 dual chamber mri compatible patecmaker insertion intraoperative fluoroscopic guidance [facility]04/08/14 KNEE ARTHROSCOPY/ARTHROPLASTY 09/2010 dr salcedo LIGATE/CUT OVIDUCT(S) 1963 OTHER 12/27 RCA drug eluting stent REPLACEMENT AORTIC VALVE, BYPASS WITH PROSTHETIC VALVE 04/27 Hunt Bovine AVR TOTAL ABD HYSTERECTOMY W/WO REMOVAL OF TUBE(S) 11/24 JADE/BSO Family History Problem Relation Age of Onset Genitourinary Disorder Mother endometriosis; hysterectomy done Diabetes Mother Genitourinary Disorder Daughter endometriosis; hysterectomy done Diabetes Aunt (Unspecified) maternal Diabetes Uncle (Unspecified) maternal Cancer Father prostate Hypertension Father Allergies Father hayfever Heart attack Sister Stroke Sister No Known Problems Brother Heart disease Sister coronary stent Social History Tobacco Use Smoking status: Never Smokeless tobacco: Never Tobacco comments: no passive smoke exposures Vaping Use Vaping Use: Never used Substance Use Topics Alcohol use: No Drug use: No Review of patient's allergies indicates: Allergen Reactions Amiodarone Edema face/lips/tongue, Edema Other and Rash legs Keflex [Cephalexin] Rash Unsure if this was a true reaction from Keflex Etodolac lodine; pruritis Penicillins Rash, burning and itching after 2nd dose in her 60's Sulfa Antibiotics Rash Tape [Adhesive Tape] Rash Zithromax [Azithromycin] Throat felt swollen. Denies any shortness of breath. Zocor [Simvastatin] Current Outpatient Medications Medication Sig Dispense Refill BENADRYL 25 MG PO TABS 1 TABLET EVERY 4 TO 6 HOURS NEEDED MAG-OXIDE 400 MG PO TABS one tablet twice a day (Patient taking differently: Take 1 Tablet by mouthin the morning.) 60 Tab 5 GRX ANALGESIC BALM EX OINT Apply topically to affected area. Azelastine HCl 0.15 % Nasal Solution Administer into nostril 1 [place] in the morning AND 1 [place] before bedtime. 30 mL 0 Warfarin Sodium 2.5 MG Oral Tablet Up to one tablet daily as directed by the [facility] clinic 100 Tablet 3 Metoprolol Succinate ER [...] nostril in the morning. 51 g 3 Rosuvastatin Calcium 20 MG Oral Tablet (Crestor) [...] mouth in the morning. 30 Tablet 11 Fexofenadine HCl 180 MG Oral Tablet (Lizzette) Take by mouth 1 Tablet daily as needed for Allergies.90 Tablet 0 Ipratropium Brixey 0.03 % Nasal Solution Administer into each nostril 2 Sprays 2 times a day as needed for Rhinitis. (Patient not taking: Reported on 07/17/2023) 30 mL 5 Spironolactone 25 MG Oral Tablet (Aldactone) Take 0.5 Tablets by mouth in the morning. (Patient nottaking: Reported on 06/30/2023) 45 Tablet 3 Losartan Potassium 25 MG Oral Tablet (Cozaar) Take 0.5 Tablets by mouth in the morning. (Patient not taking: Reported on 06/30/2023) busPIRone HCl 5 MG Oral Tablet (Buspar) Take 1 Tablet by mouth in the morning and 1 Tablet before bedtime. 20 Tablet 0 Nitroglycerin 0.4 MG Sublingual Tablet Sublingual (Nitrostat) Place 1 Tablet under the tongue as needed for Pain, Chest. May repeat 3 times. If chest pain continues, call 911. (Patient not taking: Reported on 07/17/2023) 25 Tablet 11 No current facility-administered medications for this visit. ROS: Review of Systems: See HPI for pertinent positives. All other review of systems is negative. PHYSICAL EXAMINATION BP 114/72 | Pulse 86 | Resp 18 | Wt 78 kg (172 lb) | SpO2 96% Comment: 02 2L/min | BMI 34.72 kg/m| BSA 1.8 m Body mass index is 34.72 kg/m. General: no acute distress and stated age Head: normocephalic, no masses, lesions, tenderness or abnormalities Eyes: conjunctiva are pink and non-injected, sclera clear Neck: supple, no adenopathy, no bruits, normal jugular venous pulse, no hepatojugular reflux Chest: normal shape and normal respiratory effort Lungs: clear to auscultation and percussion Cardiac Exam: - regular rate & rhythm, no murmurs gallops or rubs - normal S1, normal S2 Pulses: 2(+) throughout Abdomen: abdomen soft, non-tender, no abnormal masses and no hepatosplenomegaly Musculoskeletal: no gait disturbance, no joint inflammation, no deforming arthritis Extremities: no edema and no cyanosis Neuro: grossly normal exam Laboratory Data Review: Latest Reference Range & Units 07/07/23 11:02 Sodium 135 - 146 mmol/L 142 Potassium 3.5 - 5.1 mmol/L 3.7 Chloride 98 - 107 mmol/L 95 (L) CO2 22 - 32 mmol/L 33 (H) BUN 6 - 20 mg/dL 36 (H) Creatinine 0.5 - 1.0 mg/dL 1.5 (H) Estimated Glomerular Filtration Rate >=60 mL/min 34 (L) Anion Gap 7 - 15 mmol/L 14 Glucose 70 - 120 mg/dL 120 Calcium 8.4 - 10.2 mg/dL 9.9 INR 0.8 - 1.2 2.1 (H) Prothrombin Time 11.6 - 15.2 seconds 23.8 (H) CBC Rpt ! CBC WITH WBC DIFFERENTIAL Rpt ! WBC 4.00 - 10.80 K/uL 7.68 HGB 12.0 - 15.3 g/dL 11.7 (L) HCT 36.0 - 45.2 % 38.9 MCV 81.5 - 97.5 fL 111.8 PLT 140 - 400 K/uL 238 Absolute Neutrophils 1.80 - 7.70 K/uL 5.79 Absolute Lymphocytes 1.00 - 4.80 K/ul 0.71 (L) Absolute Monocytes 0.00 - 1.10 K/uL 0.90 Absolute Eosinophils 0.00 - 0.70 K/uL 0.23 Absolute Basophils 0.00 - 0.20 K/uL 0.05 (L): Data is abnormally low (H): Data is abnormally high !: Data is abnormal Rpt: View report in Results Review for more information Impression: Improved signs and symptoms of acute decompensated diastolic congestive heart failure. Persistent atrial fibrillation with a controlled ventricular response, requiring high dose metoprolol that is possibly contributing to chronic fatigue Chronic Coumadin 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 Prior transient bright red blood per rectum requiring ER evaluation in December 2021, suggestive of hemorrhoidal bleeding, declining further evaluation (colonoscopy). Sinus node dysfunction status post April 08, 2014 dual chamber pacemaker implantation, with dwindling generator longevity noted as above. Status post AVR and CABG in April 2006 receiving a #19 Mary-Good bioprosthesis in the aortic valve position, VARGHESE graft to the LAD, SVG with sequential grafting from LAD diagonal to the circumflex obtuse marginal, and a SVG to the RCA. Recurrent angina with resultant coronary intervention of the right coronary artery, PCI and stenting in December of 2006 with documented saphenous vein graft occlusion to the right coronary artery at that time. Quiescent Hypertension. Hyperlipidemia. Lipids well controlled. LDL 48 mg/dL on 11/04/2022 Bilateral internal carotid artery disease. Last duplex transpired in February 2023 and revealed stable mild bilateral internal carotid artery disease with results unchanged for a number of years. Mild sleep apnea. Intolerant to CPAP therapy Ambulatory and nocturnal hypoxemia treated with supplemental oxygen 2 to 3 liters/minute via nasal cannula Spinal stenosis with chronic back pain. Restless leg syndrome Plan: The patient has had several hospital admissions this past summer with a combination of heart failure and ischemic heart disease. She is currently still living independently with her family as support. She is no longer driving which I agree is appropriate. Presently she will continue her current medications and have follow-up with us as previously scheduled in August. If necessary she should return back to the emergency department for any emergencies. This chart was completed in part utilizing [employer] Speech Voice Recognition Software. Grammatical errors, random word insertions, prounoun errors, and incomplete sentences are an occasional consequence of this system due to software limitations, ambient noise, and hardware issues. Any formal questions or concerns about the content, text, or information contained within the body of this dictation should be directly addressed to the provider for clarification. I spent a total of 40-54 minutes (exact time 41 mins) on the date of service in preparation, delivery, and documentation of the care provided to Shannon Cruz excluding any time spent in the performance of separately billed services. Srini Doyle DO Cardiology, [address] [address] 07/17/2023 documented in this encounter Nursing Notes * Fish Meehan RN - 07/17/2023 3:05 PM EDT Examination Room: room 16 Name: Shannon Cruz Date of : (1935). Reason for Visit: for follow up Interim Hospitalization(s): Admitted to [facility] on 06/05/2023 Problems/Concerns: denies Chest Pain/SOB: TUCKER on home 02 therapy [facility] Discussed: Not applicable [facility] a way you can [...] Office Visit Family Medicine Oneida Briggs PA-C [address] [place] [id number] 08/01/2023 Anticoagulation Pharmacy Pharmacist2, [facility] [address] [place] [address] 09/13/2023 Office Visit Cardiology Srini Doyle DO [address] [place] [address] 10/06/2023 Office Visit Otolaryngology Keely Tanner PA-C [address] [place] [address] 11/20/2023 Office Visit Family Medicine Yaya Frederick MD [address] [place] [phone] 12/01/2023 Office Visit Hematology Oncology Agustín Sullivan MD [address] [place] [address], [place] [address] 12/04/2023 Office Visit Cardiology Bucky Calvo PA-C [address] [place] [address] Health Maintenance Due Date Last Done Comments Zoster Vaccines (1 of 2) 1954 Depression Screening 02/09/2024 02/08/2023 CKD PHOS USE SMARTSET 10831 05/01/202404/22, 11/04/2022, 02/14/2019 Albumin/Creatinine Ratio 06/15/2024 023, 05/01/2023, 07/04/2022, Additional history exists CKD HGB USE SMARTSET 26605 07/07/202407/07, 07/07/2023, 06/13/2023, Additional history exists DXA Scan 11/09/2024 11/09/2022, 01/21, 11/03/2015, Additional history exists DTaP,Tdap,and Td Vaccines (3 - Td or Tdap) 06/04/2029 06/04/2019, 01/28/2019, 05/26/2008 Pneumococcal Vaccine: 65+ Years Completed 05/24/2016, 11/14/2001 COVID-19 Vaccine Completed 09/29/2022, , 01/05/2021, Additional history exists VITAMIN D LEVEL ONCE IN A LIFETIME-USE SMARTSET# [id number] Completed 05/01/2023, 11/04/2022, 02/14/2019, Additional history exists [...] as of this encounter Visit Diagnoses Diagnosis CHR ISCHEMIC HRT DIS NOS- Primary Chronic ischemic heart disease, unspecified S/P aortic valve replacement Heart valve replaced by other means Persistent atrial fibrillation (HCC) Atrial fibrillation S/P CABG (coronary artery bypass graft) Postsurgical aortocoronary bypass status Cardiac pacemaker in situ HFrEF (heart failure with reduced ejection fraction) (HCC) documented in this encounter Additional Health Concerns Infection Onset Date Last Indicated Resolved Time Varicella zoster 08/01/2022 08/01/2022 ESBL 01/26/2023 05/31/2023 documented as of this encounter Care Teams Fiberglass Roving Winder Relationship Specialty Start Date End Date Yaya Frederick MD [address] [place] [phone] PCP - General Family Medicine 05/04/21 documented as of this encounter"
--- OUTSIDE RECORDS SUMMARY | 2023-09-12 22:27 | External Medical Summary ---
Author Name Unknown Address Unknown Organization K[place] [place] [facility] [address] [place] [id number] Laboratory Report Ordering Provider Test Date Status JER FITCH 07/21/2023 09:24:16 Final Observation Date Value Abnormality Reference (Units ) Status WBC, Total 07/21/2023 09:24:16 6.22 4.00-10.80 (K/uL) Final RBC 07/21/2023 09:24:16 3.34 3.85-5.15 (M/uL) Final Hemoglobin 07/21/2023 09:24:16 11.6 Below low normal 12.0-15.3 (g/dL) Final HCT 07/21/2023 09:24:16 37.8 36.0-45.2 (%) Final MCV 07/21/2023 09:24:16 113.2 81.5-97.5 (fL) Final MCH 07/21/2023 09:24:16 34.7 27.0-34.0 (pg) Final MCHC 07/21/2023 09:24:16 30.7 32.0-36.0 (g/dL) Final RDW 07/21/2023 09:24:16 16.6 11.5-15.5 (%) Final Platelets 07/21/2023 09:24:16 265 140-400 (K/uL) Final MPV 07/21/2023 09:24:16 11.5 6.6-11.1 (fL) Final Nucleated erythrocytes/100 leukocytes [Ratio] in Blood by Automated count 07/21/2023 09:24:16 0 <=0 (/100 WBCs) Final Performing Location [facility] [place] [address] [place] [id number]
--- OUTSIDE RECORDS SUMMARY | 2023-09-12 22:27 | External Medical Summary ---
Author Name Unknown Address Unknown Organization K01[place] [place] [address] [place] [id number] Laboratory Report Ordering Provider Test Date Status OJ CHUNG 07/21/2023 09:24:16 Final Observation Date Value Abnormality Reference (Units ) Status BUN 07/21/2023 09:24:16 41 Above high normal 6-20 (mg/dL) Final Creatinine 07/21/2023 09:24:16 1.7 Above high normal 0.5-1.0 (mg/dL) Final Glomerular filtration rate/1.73 sq M.predicted [Volume Rate/Area] in Serum, Plasma or Blood by Creatinine-based formula (CKD-EPI) 07/21/2023 09:24:16 28 Below low normal >=60 (mL/min) Final eGFR is calculated based on the CKD-EPI 2020 equation SODIUM 07/21/2023 09:24:16 143 135-146 (m mol/L) Final Potassium 07/21/2023 09:24:16 3.4 Below low normal 3.5 -5.1 (mmol/L) Final Cl 07/21/2023 09:24:16 98 98-107 (mm ol/L) Final CO2 07/21/2023 09:24:16 34 Above high normal 22 -32 (mmol/L) Final Anion gap 07/21/2023 09:24:16 11 7-15 (mmol /L) Final Glucose 07/21/2023 09:24:16 107 70-120 (mg /dL) Final Calcium 07/21/2023 09:24:16 9.6 8.4-10.2 ( mg/dL) Final Performing Location [facility] [place] [address] [place] [id number]
--- OUTSIDE RECORDS SUMMARY | 2023-09-12 22:27 | External Medical Summary | Summary of Care ---
Author Name Unknown Organization [facility] Address [address] [facility] [place] [address] Phone [phone] Care Team Providers Care Work And Family Life Consultant Name Role Phone Yaya Frederick MD Primary Care Provider [phone] Reason for Visit * Reason Comments Outpatient Testing Encounter Details Date Type Department Care Team Description 07/21/2023 Laboratory Laboratory Patient Service [address] [address] [address] Essential thrombocythemia ([facility]); Kidney disease, chronic, stage IV (GFR 15-29 ml/min) ([facility]) Allergies Active Allergy Reactions Severity Noted Date [...] as of this encounter (statuses as of 07/21/2023) Medications Medication Sig Dispensed Refills Start Date [...] SolutionIndications:P ost-nasal discharge Administer into nostril 1 [place] in the morning AND 1 [place] before bedtime. 30 mL 0 11/30/2021 Active Fexofenadine HCl 180 MG Oral Tablet (Lizzette) Take by mouth 1 Tablet daily as needed for Allergies. 90 Tablet 0 01/21/2022 Active Ipratropium [place] 0.03 % Nasal Solution Administer into each nostril 2 Sprays 2 times a day as needed for Rhinitis. 30 mL 5 02/23/2022 Active Additional Information Patient not taking.Reported on 07/17/2023 Warfarin Sodium 2.5 MG Oral TabletIndications:Chr onic ischemic heart disease Up to one tablet daily [facility] Tablet 3 08/09/2022 Active Metoprolol [...] Oral Capsule (Hydrea)Indications:E ssential thrombocythemia ([facility]) Take 1 capsule by mouth 5 [...] NSTEMI (non-ST elevated myocardial infarction) ([facility]) Take 1 Tablet by mouth in the morning. 90 Tablet 3 05/18/2023 Active Nitroglycerin 0.4 MG Sublingual Tablet Sublingual (Nitrostat)Indication s:NSTEMI (non-ST elevated myocardial infarction) ([facility]) Place 1 Tablet under the tongue [...] failure with reduced ejection fraction) ([facility]) Take 1 Tablet by mouth in the morning. 30 Tablet 3 07/03/2023 Active Clopidogrel Bisulfate 75 MG Oral Tablet (pLAVix)Indications:H FrEF (heart failure with reduced ejection fraction) ([facility]) Take 1 Tablet by mouth in the morning. 30 Tablet 3 07/03/2023 Active Famotidine 20 MG Oral Tablet (Pepcid) Take 1 Tablet by mouth in the morning. 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 # [id number] Configuration Developer: Wilda Serrano MD [phone] Type 2 diabetes mellitus wit h hemoglobin A1c goal of less than 7.0% 11/03/2006 08/15/2007 Overview: ICD-10 update of inactive term PURE HYPERCHOLESTEROLEM 11/03/2006 10/01/20 09 Overview: Per Lipid Taxonomy. 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 0 05/05/2006 01/23/2009 Overview: ICD-10 update of inactive term Anticoagulation management encounter 05/05/2006 10/03/2019 Unspecified viral infection, in conditions classified elsewhere and of unspecified site 06/08/2005 09/25/2007 Menopause 12/19/2001 12/27/2017 FEM STRESS INCONTINENCE 05/10/2001 12/04/19 02 documented as of this encounter (statuses as of 07/21/2023) Immunizations Name Administration Dates Next Due COVID-19 mRNA, LNP-s, No Pre serve, 2-Dose Series ([employer]) 09/13/2021,01/05/2021,12/15/2020 Covid-19, Mrna, Lnp-s, Pf, B ivalent, [...] Office Visit Family Medicine Oneida Briggs PA-C [address] [place] [address] 08/01/2023 Anticoagulation Pharmacy Pharmacist, [address] [address] 09/13/2023 Office Visit Cardiology Srini Doyle DO [address] [place] [address] 10/06/2023 Office Visit Otolaryngology Keely Tanner PA-C [address] [place] [address] 11/20/2023 Office Visit Family Medicine Yaya Frederick MD [address] [place] [address] 12/01/2023 Office Visit Hematology Oncology Agustín Sullivan MD [address] [facility] [place] [address] 12/04/2023 Office Visit Cardiology Bucky Calvo PA-C [address] [place] [address] Pending Results Name Type Priority Associated Diagnoses Date /Time CBC WITH WBC DIFFERENTIAL Lab STAT Essential thrombocythemia ([facility]) 07/21/2023 9:24 AM EDT BASIC METABOLIC PANEL Lab STAT Kidney disease, chronic, stage IV (GFR 15-29 ml/min) ([facility]) 07/21/2023 9:24 AM EDT CBC Lab STAT Essential thrombocythemia ([facility]) 07/21/2023 9:24 AM EDT DIFFERENTIAL, AUTOMATED Lab STAT Essential thrombocythemia ([facility]) 07/21/2023 9:24 AM EDT Health Maintenance Due Date Last Done Comments Zoster Vaccines (1 of 2) 1954 *BISPHONATE OR OTHER ACCEPTABLE MEDICATION NEEDED FOR OSTEOPOROSIS (REFER TO SMARTSET #1146) 07/19/2023 Depression Screening 02/09/2024 02/08/2023 CKD PHOS USE SMARTSET 86054 05/01/202404/22, 11/04/2022, 02/14/2019 Albumin/Creatinine Ratio 06/15/2024 023, 05/01/2023, 07/04/2022, Additional history exists CKD HGB USE SMARTSET 83169 07/07/202407/07, 07/07/2023, 06/13/2023, Additional history exists DXA Scan 11/09/2024 11/09/2022, 01/21, 11/03/2015, Additional history exists DTaP,Tdap,and Td Vaccines (3 - Td or Tdap) 06/04/2029 06/04/2019, 01/28/2019, 05/26/2008 Pneumococcal Vaccine: 65+ Years Completed 05/24/2016, 11/14/2001 COVID-19 Vaccine Completed 09/29/2022, , 01/05/2021, Additional history exists VITAMIN D LEVEL ONCE IN A LIFETIME-USE SMARTSET# 85355 Completed 05/01/2023, 11/04/2022, 02/14/2019, Additional history exists [...] documented as of this encounter Care Teams Work And Family Life Consultant Relationship Specialty Start Date End Date Yaya Frederick MD [address] [place] [phone] PCP - General Family Medicine 05/04/21 documented as of this encounter
--- OUTSIDE RECORDS SUMMARY | 2023-09-12 22:27 | External Medical Summary | Summary of Care ---
Author Name Unknown Organization [facility] Address [address] [facility] [place] [address] Phone [phone] Care Team Providers Care Frame Opener Name Role Phone Yaya Frederick MD Primary Care Provider Reason for Visit * Reason Onset Date Comments Medication Refill 07/10/2023 Encounter Details Date Type Department Care Team Description 07/10/[address] [address] Yaya Frederick MD [address] [place] [id number] Allergies Active Allergy Reactions Severity Noted Date [...] as of this encounter (statuses as of 07/25/2023) Medications Medication Sig Dispensed Refills Start Date End Date Status BENADRYL 25 MG PO TABS 1 TABLET EVERY 4 TO 6 HOURS NEEDED 0 Active MAG-OXIDE 400 MG PO TABSIndications:Emergency Department Technician jayda ischemic heart disease one tablet twice a day 60 Tab 5 01/05/2011 Active Additional Information Patient taking differently: 400 mgOralDaily(AM), Reported on 11/21/2022 GRX ANALGESIC BALM EX OINT Apply topically to affected area. 0 07/01/2013 Active Azelastine HCl 0.15 % Nasal SolutionIndications: Post-nasal discharge Administer into nostril 1 [place] in the morning AND 1 [place] before bedtime. 30 mL 0 11/30/2021 Active Fexofenadine HCl 180 MG Oral Tablet (Lizzette) Take by mouth 1 Tablet daily as needed for Allergies. 90 Tablet 0 01/21/2022 Active Ipratropium [place] 0.03 % Nasal Solution Administer into each [...] 0 Active Spironolactone 25 MG Oral Tablet (Aldactone)Indicatio [...] Tablet (Crestor)Indications :NSTEMI (non-ST elevated myocardial infarction) ([facility]) Take 1 Tablet by mouth in the morning. 90 Tablet 3 05/18/2023 Active Nitroglycerin 0.4 MG Sublingual Tablet Sublingual (Nitrostat)Indicatio ns:NSTEMI (non-ST elevated myocardial infarction) ([facility]) Place 1 Tablet under the tongue as [...] failure with reduced ejection fraction) ([facility]) Take 1 Tablet by mouth in the morning. 30 Tablet 3 07/03/2023 Active Clopidogrel Bisulfate 75 MG Oral Tablet (pLAVix)Indications: HFrEF (heart failure with reduced ejection fraction) ([facility]) Take 1 Tablet by mouth in the morning. 30 Tablet 3 07/03/2023 Active Famotidine 20 MG Oral Tablet (Pepcid) Take 1 Tablet by mouth in the morning. 30 Tablet 11 07/11/2023 Active Famotidine 20 MG Oral Tablet (Pepcid) Take 1 Tablet by mouth in the morning. 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 # [id number] Edging Machine Setter: Wilda Serrano MD [phone] Type 2 diabetes mellitus wit h hemoglobin A1c goal of less than 7.0% 11/03/2006 08/15/2007 Overview: ICD-10 update of inactive term PURE HYPERCHOLESTEROLEM 11/03/2006 10/01/20 09 Overview: Per Lipid Taxonomy. 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 0 05/05/2006 01/23/2009 Overview: ICD-10 update of inactive term Anticoagulation management encounter 05/05/2006 10/03/2019 Unspecified viral infection, in conditions classified elsewhere and of unspecified site 06/08/2005 09/25/2007 Menopause 12/19/2001 12/27/2017 FEM STRESS INCONTINENCE 05/10/2001 12/04/19 02 documented as of this encounter (statuses as of 07/25/2023) Immunizations Name Administration Dates Next Due COVID-19 mRNA, LNP-s, No Pre serve, 2-Dose Series (TagMii) 09/13/2021,01/05/2021,12/15/2020 Covid-19, Mrna, Lnp-s, Pf, B ivalent, 30 Mcg, IM, 12 yrs and above (TagMii) 09/29/2022 H1N1 2009 Influenza, IM 10/08/2009 Pneumococcal [...] encounter Miscellaneous Notes * Telephone Encounter - Albania Lua CPhT - 07/25/2023 12:00 PM EDT Pt calling to request Famotidine. Informed pt that RX is available at their pharmacy. Pt verbalizedunderstanding and stated they will check with their pharmacy regarding this medication. Thank you, Albania Lua Animal Shelter Clerk [facility] (formerly Telepharmacy) 07/25/2023, 12:00 PM * Telephone Encounter - Andres Hoyt [facility] - 07/11/2023 10:16 AM EDT Signed Prescriptions: Disp Refills Famotidine 20 MG Oral Tablet (Pepcid) 30 Tab*11 Sig: Take 1 Tablet by mouth in the morning. Authorizing Provider: ONEIDA BRIGGS Ordering User: ANDRES HOYT * Telephone Encounter - Aneta Coombs [facility] - 07/10/2023 1:17 PM EDT Please reroute Rx to E [facility] [place]. Pending Prescriptions: Disp Refills Famotidine 20 MG Oral Tablet (Pepcid) 30 Tab*11 Sig: Take 1 Tablet by mouth in the morning. Last Visit: 06/30/2023 (in office), Visit date not found (telemedicine) 08/01/2023 If no future appointments scheduled, and last appointment is greater than a year ago, please schedule patient for a follow-up appointment Last date the medication was ordered: 06.30.23 Patient Phone Numbers Labs: Lab Results Component Value Date/Time CREAT 1.5 (H) 07/07/2023 11:02 AM CREAT 1.1 (H) 09/16/2020 02:47 PM POTASSIUM 3.7 07/07/2023 11:02 AM POTASSIUM 4.2 09/16/2020 02:47 PM TSH 2.43 [...] Visit Family Medicine Oneida Briggs PA-C [address] [place] [address] 08/01/2023 Anticoagulation Pharmacy Pharmacist2, [facility] [address] [place] [address] 08/01/2023 Office Visit Cardiology Lauren Chau DO [address] [facility] [place] [phone] 09/13/2023 Office Visit Cardiology Srini Doyle DO [address] [place] [address] 10/06/2023 Office Visit Otolaryngology Keely Tanner PA-C [address] [place] [address] 11/20/2023 Office Visit Family Medicine Yaya Frederick MD [address] [place] [address] 12/01/2023 Office Visit Hematology Oncology Agustín Sullivan MD [address] [facility] [place] [address] 12/04/2023 Office Visit Cardiology Bucky Calvo PA-C [address] [place] [address] Health Maintenance Due Date Last Done Comments Zoster Vaccines (1 of 2) 1954 COVID-19 Vaccine ( season) 2023 09/29/2022, 09/13/2021, 01/05/2021, Additional history exists Depression Screening 02/09/2024 02/08/2023 CKD PHOS USE SMARTSET 64755 05/01/202404/22, 11/04/2022, 02/14/2019 Albumin/Creatinine Ratio 06/15/2024 023, 05/01/2023, 07/04/2022, Additional history exists CKD HGB USE SMARTSET 57802 07/21/202407/21, 07/21/2023, 07/07/2023, Additional history exists DXA Scan 11/09/2024 11/09/2022, 01/21, 11/03/2015, Additional history exists DTaP,Tdap,and Td Vaccines (3 - Td or Tdap) 06/04/2029 06/04/2019, 01/28/2019, 05/26/2008 Pneumococcal Vaccine: 65+ Years Completed 05/24/2016, 11/14/2001 VITAMIN D LEVEL ONCE IN A LIFETIME-USE SMARTSET# 55331 Completed 05/01/2023, 11/04/2022, 02/14/2019, Additional history exists [...] documented as of this encounter Care Teams Frame Opener Relationship Specialty Start Date End Date Yaya Frederick MD [address] [place] [phone] PCP - General Family Medicine 05/04/21 documented as of this encounter
--- OUTSIDE RECORDS SUMMARY | 2023-09-12 22:27 | External Medical Summary | Summary of Care ---
Author Name Unknown Organization [facility] Address [address] [facility] [place] [address] Phone [phone] Care Team Providers Care Print Shop Assistant Name Role Phone Yaya Frederick MD Primary Care Provider [phone] Reason for Visit * Reason Onset Date Comments Medication Problem 07/14/2023 Encounter Details Date Type Department Care Team Description 07/14/2023 Telephone Pharmacy, [place] [address] [place] [address] [facility] [address] [place] [address] Medication Problem Allergies Active Allergy Reactions Severity Noted Date [...] SolutionIndications:P ost-nasal discharge Administer into nostril 1 [place] in the morning AND 1 [place] before bedtime. 30 mL 0 11/30/2021 Active Fexofenadine HCl 180 MG Oral Tablet (Lizzette) Take by mouth 1 Tablet daily as needed for Allergies. 90 Tablet 0 01/21/2022 Active Ipratropium [place] 0.03 % Nasal Solution Administer into each [...] NSTEMI (non-ST elevated myocardial infarction) ([facility]) Take 1 Tablet by mouth in the morning. 90 Tablet 3 05/18/2023 Active Nitroglycerin 0.4 MG Sublingual Tablet Sublingual (Nitrostat)Indication s:NSTEMI (non-ST elevated myocardial infarction) ([facility]) Place 1 Tablet under the [...] failure with reduced ejection fraction) ([facility]) Take 1 Tablet by mouth in the morning. 30 Tablet 3 07/03/2023 Active Clopidogrel Bisulfate 75 MG Oral Tablet (pLAVix)Indications:H FrEF (heart failure with reduced ejection fraction) ([facility]) Take 1 Tablet by mouth [...] for 3 days. 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 # [id number] Cartridge Maker: Wilda Serrano MD [phone] Type 2 diabetes mellitus wit h hemoglobin A1c goal of less than 7.0% 11/03/2006 08/15/2007 Overview: ICD-10 update of inactive term PURE HYPERCHOLESTEROLEM 11/03/2006 10/01/20 09 Overview: Per Lipid Taxonomy. 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/2008 snf current use of anticoagulant therapy 0 05/05/2006 [...] mRNA, LNP-s, No Pre serve, 2-Dose Series (iGen[employer]) 09/13/2021,01/05/2021,12/15/2020 Covid-19, Mrna, Lnp-s, Pf, B ivalent, 30 Mcg, IM, 12 yrs and above (iGen6) 09/29/2022 H1N1 2009 Influenza, IM 10/08/2009 Pneumococcal Conjugate Vacc, 13 Valent (Prevnar) 05/24/2016 Pneumococcal Polysaccharide PPV23 (Pneumovax) 11/14/2001 Season Influenza, Quad, PF, Adjuvanted, 65+ Yrs, IM (FLUAD) 08/03/2020 Seasonal Influenza Virus Vac cine, Unspecified Formulation 07/19/2021,08/03/2020,07/23/2019,10/05/2018,08/29/2017,07/28/2016,07/05/20 16,07/07/2014,07/22/2013,07/03/2012,0 07/12/2011,07/21/2010,09/12/2009,08/04,07/23/2007,08/02/2006, 5,08/14/2003,10/01/2001 Seasonal Influenza, PF, 6 [...] Miscellaneous Notes * Telephone Encounter - Wilda Plata, [facility] - 07/14/2023 2:44 PM EDT Calling patient at this time due to DDI with Bactrim order and Coumadin use. Patient was made aware with 3 day course of Bactrim, she will HOLD Coumadin TONIGHT with start of Bactrim today. She is aware of this plan, will call if other changes with antibiotic use, or additional medication needs. She notes that she will have surgery in the future a well, will make us aware when she has date/scheduled date for management with ACC and Coumadin. Notes that she sees doctor in 2 weeks, and should have procedure scheduled at that time. Patient does note that she has previously had reaction with Bactrim, but has since had it - and will take Benadryl with this to prevent issues with medication use. She notes that she already has Benadryl on hand to take again. She notes that since this was only for 3 days she felt ok with taking medication this way and plan for Benadryl as needed. Wilda Plata PharmD, [facility] Clinical Pharmacist 07/14/2023, 2:46 PM * Telephone Encounter - Julee Feliciano [facility] - 07/14/2023 8:33 AM EDT Images from the original note were not included. Received BPA for patient: Julee Feliciano PharmD, [facility] Clinical Pharmacist 07/14/2023, 8:33 AM documented in this encounter Plan of Treatment Upcoming Encounters Date Type Specialty Care Team Description 07/17/2023 Office Visit Cardiology Srini Doyle, [address] [place] [address] 08/01/2023 Office Visit Family Medicine Oneida Briggs PA-C [address] [place] [address] 08/01/2023 Anticoagulation Pharmacy Pharmacist, [address] [address] 09/13/2023 Office Visit Cardiology Srini Doyle, [address] [place] [address] 10/06/2023 Office Visit Otolaryngology Keely Tanner PA-C [address] [place] [address] 11/20/2023 Office Visit Family Medicine Yaya Frederick MD [address] [place] [address] 12/01/2023 Office Visit Hematology [facility]cology [facility] [address] 12/04/2023 Office Visit Cardiology Bucky Calvo PA-C [address] [place] [address] Health Maintenance Due Date Last Done Comments Zoster Vaccines (1 of 2) 1954 Depression Screening 02/09/2024 02/08/2023 CKD PHOS USE SMARTSET 92507 05/01/202404/22, 11/04/2022, 02/14/2019 Albumin/Creatinine Ratio 06/15/2024 023, 05/01/2023, 07/04/2022, Additional history exists CKD HGB USE SMARTSET 18770 07/07/202407/07, 07/07/2023, 06/13/2023, Additional history exists DXA Scan 11/09/2024 11/09/2022, 01/21, 11/03/2015, Additional history exists DTaP,Tdap,and Td Vaccines (3 - Td or Tdap) 06/04/2029 06/04/2019, 01/28/2019, 05/26/2008 Pneumococcal Vaccine: 65+ Years Completed 05/24/2016, 11/14/2001 COVID-19 Vaccine Completed 09/29/2022, , 01/05/2021, Additional history exists VITAMIN D LEVEL ONCE IN A LIFETIME-USE SMARTSET# 48270 Completed 05/01/2023, 11/04/2022, 02/14/2019, Additional history exists [...] documented as of this encounter Care Teams Print Shop Assistant Relationship Specialty Start Date End Date Yaya Frederick MD [address] [place] [phone] PCP - General Family Medicine 05/04/21 documented as of this encounter
--- OUTSIDE RECORDS SUMMARY | 2023-09-12 22:27 | External Medical Summary | Summary of Care ---
Author Name Unknown Organization [facility] Address [address] [facility] [place] [address] Phone [phone] Care Team Providers Care Upholsterer Apprentice Name Role Phone Yaya Frederick MD Primary Care Provider [phone] Reason for Visit * Reason Comments Pacemaker Clinic Encounter Details Date Type Department Care Team Description 07/07/2023 Cardiac Studies [facility], [facility] [id number] [address] [facility] [place] [id number] Cardiac pacemaker in situ*; Sinus node dysfunction (HCC); Persistent atrial fibrillation (HCC) Allergies Active Allergy Reactions [...] NEEDED 0 Active MAG-OXIDE 400 MG PO TABSIndications: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 0 07/01/2013 Active Azelastine HCl 0.15 % Nasal SolutionIndications: Post-nasal discharge Administer into nostril 1 [place] in the morning AND 1 [place] before bedtime. 30 mL 0 11/30/2021 Active Fexofenadine HCl 180 MG Oral Tablet (Lizzette) Take by mouth 1 Tablet daily as needed for Allergies. 90 Tablet 0 01/21/2022 Active Ipratropium [place] 0.03 % Nasal Solution Administer into each nostril 2 Sprays 2 times a day as needed for Rhinitis. 30 mL 5 02/23/2022 Active Additional Information Patient not taking.Reported on 07/17/2023 Warfarin Sodium 2.5 MG Oral TabletIndications:Ch ronic ischemic heart disease Up to one tablet daily as directed by the [facility] clinic 100 Tablet 3 08/09/2022 Active Metoprolol [...] :NSTEMI (non-ST elevated myocardial infarction) ([facility]) Take 1 Tablet by mouth in the morning. 90 Tablet 3 05/18/2023 Active Nitroglycerin 0.4 MG Sublingual Tablet Sublingual (Nitrostat)Indicatio ns:NSTEMI (non-ST elevated myocardial infarction) ([facility] [...] Stent Restenosis in Drug-Eluting Stents Project # [id number] Carrot Grader Inspector: Wilda Serrano MD [phone] GENOMICS CARDIO RESEARCH OTHER*[id number] 200611/29/2016 Overview: Renamed Per Clinical Trials Billing Project. 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 # [id number] Carrot Grader Inspector: Wilda Serrano MD [phone] Type 2 diabetes mellitus wit h hemoglobin A1c goal of less than 7.0% 11/03/2006 08/15/2007 Overview: ICD-10 update of inactive term PURE HYPERCHOLESTEROLEM 11/03/2006 10/01/20 09 Overview: Per Lipid Taxonomy. 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/2008 long term current use of anticoagulant therapy 0 05/05/2006 [...] mRNA, LNP-s, No Pre serve, 2-Dose Series ([employer]) 09/13/2021,01/05/2021,12/15/2020 Covid-19, Mrna, Lnp-s, Pf, B ivalent, [...] on file documented as of this encounter Nursing Notes * Olinda Portillo RN - 07/18/2023 5:03 PM EDT Patient and implanted device were evaluated today in the [facility]. Providers please see scanned report in the Scans tab. Olinda Portillo RN * Cathy Guevara RN - 07/07/2023 10:27 AM EDT Patient and implanted device were evaluated today in the [facility]. Providers please see scanned report in the Scans tab. FACILITIES MAINTENANCE SUPERVISOR on 07/02/23. Patient scheduled with Dr. Chau 08/01/23. Patient denies symptoms since reaching FACILITIES MAINTENANCE SUPERVISOR. Tech: Jitendra Ugalde documented in this encounter Plan of Treatment Upcoming Encounters Date Type Specialty Care Team Description 08/01/2023 Office Visit Family Medicine Oneida Briggs PA-C [address] [place], [place] [phone] 08/01/2023 Anticoagulation Pharmacy Pharmacist2, [facility] [address] [place], [place] [phone] 09/13/2023 Office Visit Cardiology Srini Doyle DO [address] [place] [address] 10/06/2023 Office Visit Otolaryngology Keely Tanner PA-C [address] [place] [address] 11/20/2023 Office Visit Family Medicine Yaya Frederick MD [address] [place], [place] [phone] 12/01/2023 Office Visit Hematology Oncology Agustín Sullivan MD [address] [place] [address] 12/04/2023 Office Visit Cardiology Bucky Calvo PA-C [address] [place] [address] Scheduled Orders Name Type Priority Associated Diagnoses Orde r Schedule DUAL-LEAD PACEMAKER + REPROGRAM Procedures Routine Cardiac pacemaker in situ Sinus node dysfunction (HCC) Persistent atrial fibrillation (HCC) Ordered: 07/07/2023 Health Maintenance Due Date Last Done Comments Zoster Vaccines (1 of 2) 1954 Depression Screening 02/09/2024 02/08/2023 CKD PHOS USE SMARTSET 49660 05/01/202404/22, 11/04/2022, 02/14/2019 Albumin/Creatinine Ratio 06/15/2024 023, 05/01/2023, 07/04/2022, Additional history exists CKD HGB USE SMARTSET 86616 07/07/202407/07, 07/07/2023, 06/13/2023, Additional history exists DXA Scan 11/09/2024 11/09/2022, 01/21, 11/03/2015, Additional history exists DTaP,Tdap,and Td Vaccines (3 - Td or Tdap) 06/04/2029 06/04/2019, 01/28/2019, 05/26/2008 Pneumococcal Vaccine: 65+ Years Completed 05/24/2016, 11/14/2001 COVID-19 Vaccine Completed 09/29/2022, , 01/05/2021, Additional history exists VITAMIN D LEVEL ONCE IN A LIFETIME-USE SMARTSET# [id number] Completed 05/01/2023, 11/04/2022, 02/14/2019, Additional history exists [...] as of this encounter Visit Diagnoses Diagnosis Cardiac pacemaker in situ- Primary Sinus node dysfunction (HCC) Sinoatrial node dysfunction Persistent atrial fibrillation (HCC) Atrial fibrillation documented in this encounter Additional Health Concerns Infection Onset Date Last Indicated Resolved Time Varicella zoster 08/01/2022 08/01/2022 ESBL 01/26/2023 05/31/2023 documented as of this encounter Care Teams Upholsterer Apprentice Relationship Specialty Start Date End Date Yaya Frederick MD [address] [place] [phone] PCP - General Family Medicine 05/04/21 documented as of this encounter
--- OUTSIDE RECORDS SUMMARY | 2023-09-12 22:27 | External Medical Summary | Summary of Care ---
Author Name Unknown Organization [facility] Address [address] [facility] [place] [address] Phone [phone] Care Team Providers Care Political Researcher Name Role Phone Yaya Frederick MD Primary Care Provider [phone] Encounter Details Date Type Department Care Team Description 07/24/2023 Result Scan Unspecified Department Yared Raphael MD [address] [place] [address] <No scans attached> Allergies Active Allergy Reactions Severity Noted Date [...] SolutionIndications:P ost-nasal discharge Administer into nostril 1 [place] in the morning AND 1 [place] before bedtime. 30 mL 0 11/30/2021 Active Fexofenadine HCl 180 MG Oral Tablet (Lizzette) Take by mouth 1 Tablet daily as needed for Allergies. 90 Tablet 0 01/21/2022 Active Ipratropium [place] 0.03 % Nasal Solution Administer into each [...] Stent Restenosis in Drug-Eluting Stents Project # [phone] Escort Car Driver: Wilda Serrano MD [phone] GENOMICS CARDIO RESEARCH OTHER*[id number] 200611/29/2016 Overview: Renamed Per Clinical Trials Billing Project. 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 # [id number] Escort Car Driver: Wilda Serrano MD [phone] Type 2 diabetes mellitus wit h hemoglobin A1c goal of less than 7.0% 11/03/2006 08/15/2007 Overview: ICD-10 update of inactive term PURE HYPERCHOLESTEROLEM 11/03/2006 10/01/20 09 Overview: Per Lipid Taxonomy. 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/2008 senior care current use of anticoagulant therapy 0 05/05/2006 [...] Description 08/01/2023 Office Visit Family Medicine Oneida Brgigs PA-C [address] [place] [address] 08/01/2023 Anticoagulation Pharmacy Pharmacist, [facility] [address] [place] [address] 08/01/2023 Office Visit Cardiology Lauren Chau, [address] [facility] [place] [address] 09/13/2023 Office Visit Cardiology Srini Dolye DO [address] [place] [phone] 10/06/2023 Office Visit Otolaryngology Keely Tanner PA-C [address] [place] [address] 11/20/2023 Office Visit Family Medicine Yaya Frederick MD [address] [place] [address] 12/01/2023 Office Visit Hematology Oncology Agustín Sullivan MD [address] [place] [address] 12/04/2023 Office Visit Cardiology Bucky Calvo PA-C [address] [place] [address] Health Maintenance Due Date Last Done Comments Zoster Vaccines (1 of 2) 1954 Depression Screening 02/09/2024 02/08/2023 CKD PHOS USE SMARTSET 27931 05/01/202404/22, 11/04/2022, 02/14/2019 Albumin/Creatinine Ratio 06/15/2024 023, 05/01/2023, 07/04/2022, Additional history exists CKD HGB USE SMARTSET 19129 07/21/202407/21, 07/21/2023, 07/07/2023, Additional history exists DXA Scan 11/09/2024 11/09/2022, 01/21, 11/03/2015, Additional history exists DTaP,Tdap,and Td Vaccines (3 - Td or Tdap) 06/04/2029 06/04/2019, 01/28/2019, 05/26/2008 Pneumococcal Vaccine: 65+ Years Completed 05/24/2016, 11/14/2001 COVID-19 Vaccine Completed 09/29/2022, , 01/05/2021, Additional history exists VITAMIN D LEVEL ONCE IN A LIFETIME-USE SMARTSET# [id number] Completed 05/01/2023, 11/04/2022, 02/14/2019, Additional history exists [...] Date/Time Associated Diagnosis Comments CARDIOLOGY SCANNED RESULT 07/24/2023 documented in this encounter Results * CARDIOLOGY SCANNED RESULT (07/24/2023) 07/24/2023 Yared Raphael MD OTHER documented in this encounter Additional Health Concerns Infection Onset Date Last Indicated Resolved Time Varicella zoster 08/01/2022 08/01/2022 ESBL 01/26/2023 05/31/2023 documented as of this encounter Care Teams Political Researcher Relationship Specialty Start Date End Date Yaya Frederick MD [address] [place] [phone] PCP - General Family Medicine 05/04/21 documented as of this encounter
--- OUTSIDE RECORDS SUMMARY | 2023-09-12 22:28 | External Medical Summary ---
Author Name Unknown Address Unknown Organization [id number]:[facility] [place] [facility] - [address] [place] [id number] Laboratory Report Ordering Provider Test Date Status JER FITCH 07/07/2023 11:02:56 Final Observation Date Value Abnormality Reference (Units ) Status WBC, Total 07/07/2023 11:02:56 7.68 4.00-10.8 0 (K/uL) Final RBC 07/07/2023 11:02:56 3.48 3.85-5.15 (M/uL) Final Hemoglobin 07/07/2023 11:02:56 11.7 Below low normal 12 .0-15.3 (g/dL) Final HCT 07/07/2023 11:02:56 38.9 36.0-45.2 (%) Final MCV 07/07/2023 11:02:56 111.8 81.5-97.5 (fL) Final MCH 07/07/2023 11:02:56 33.6 27.0-34.0 (pg) Final MCHC 07/07/2023 11:02:56 30.1 32.0-36.0 (g/dL) Final RDW 07/07/2023 11:02:56 15.7 11.5-15.5 (%) Final Platelets 07/07/2023 11:02:56 238 140-400 (K /uL) Final MPV 07/07/2023 11:02:56 11.4 6.6-11.1 ( fL) Final Performing Location [facility] - [address] [place] [id number]
--- OUTSIDE RECORDS SUMMARY | 2023-09-12 22:28 | External Medical Summary ---
Author Name Unknown Address Unknown Organization K01[facility] [place] [address] [facility] [place] [id number] Laboratory Report Ordering Provider Test Date Status KYLAH TRIPATHI 07/13/2023 08:29:58 Final Observation Date Value Abnormality Reference (Units ) Status Color of Urine by Auto 07/13/2023 08:29:58 Yellow Colorless, Light Yellow, Yellow, Dark Yellow Final Clarity, Urine 07/13/2023 08:29:58 Slightly Cloudy Abnormal Clear Final Glucose [Mass/volume] in Urine by Automated test strip 07/13/2023 08:29:58 Negative Negative (mg/dL) Final Bilirubin.total [Presence] in Urine by Automated test strip 07/13/2023 08:29:58 Negative Negative Final Ketones [Mass/volume] in Urine by Automated test strip 07/13/2023 08:29:58 Negative Negative (mg/dL) Final Specific gravity, Urine 07/13/2023 08:29:58 1.013 1.003-1.030 Final Hemoglobin [Presence] in Urine by Automated test strip 07/13/2023 08:29:58 Small Abnormal Negative Final pH, Urine 07/13/2023 08:29:58 6.0 5.0-7.5 (Units) Final Protein [Mass/volume] in Urine by Automated test strip 07/13/2023 08:29:58 30 Abnormal Negative (mg/dL) Final Urobilinogen [Mass/volume] in Urine by Automated test strip 07/13/2023 08:29:58 Normal Normal (mg/dL) Final Nitrite [Presence] in Urine by Automated test strip 07/13/2023 08:29:58 Negative Negative Final Leukocyte esterase [Presence] in Urine by Automated test strip 07/13/2023 08:29:58 Large Abnormal Negative Final RBC, Urine 07/13/2023 08:29:58 0-2 0-2 (/HPF) Final WBC, Urine 07/13/2023 08:29:58 50+ Abnormal 0-2 (/HPF) Final Bacteria [#/area] in Urine sediment by Microscopy high power field 07/13/2023 08:29:58 151-200 Abnormal 0-25 (/HPF) Final Epithelial cells.squamous [#/area] in Urine sediment by Microscopy high power field 07/13/2023 08:29:58 Many Abnormal None (/HPF) Final Hyaline casts, Urine 07/13/2023 08:29:58 5-9 Abnormal None (/LPF) Final Epithelial cells.renal [#/area] in Urine sediment by Microscopy high power field 07/13/2023 08:29:58 1-4 Abnormal None (/HPF) Final Transitional cells [#/area] in Urine sediment by Microscopy high power field 07/13/2023 08:29:58 1-4 Abnormal None (/HPF) Final Leukocyte clumps [#/area] in Urine sediment by Microscopy high power field 07/13/2023 08:29:58 Present Abnormal None (/HPF) Final Performing Location [facility] [place] [address] [facility] [id number]
--- OUTSIDE RECORDS SUMMARY | 2023-09-12 22:28 | External Medical Summary | Summary of Care ---
Author Name Unknown Organization [facility] Address [address] [facility] [place] [address] Phone [phone] Care Team Providers Care Medical Affairs Manager Name Role Phone Yaya Frederick MD Primary Care Provider [phone] Reason for Visit * Reason Comments Outpatient Testing Encounter Details Date Type Department Care Team Description 07/07/2023 Laboratory Laboratory, [facility] [address] [facility] [place] [address] [facility] [address] [facility] [place] [address] S/P aortic valve replacement; Essential thrombocythemia ([facility]); Kidney disease, chronic, stage IV (GFR 15-29 ml/min) ([facility]) Allergies Active Allergy Reactions Severity Noted Date [...] as of this encounter (statuses as of 07/07/2023) Medications Medication Sig Dispensed Refills Start Date [...] SolutionIndications:P ost-nasal discharge Administer into nostril 1 [place] in the morning AND 1 [place] before bedtime. 30 mL 0 11/30/2021 Active Fexofenadine HCl 180 MG Oral Tablet (Lizzette) Take by mouth 1 Tablet daily as needed for Allergies. 90 Tablet 0 01/21/2022 Active Ipratropium [place] 0.03 % Nasal Solution Administer into each [...] 500 MG Oral Capsule (Hydrea)Indications:E ssential thrombocythemia ([facility]) Take 1 capsule by mouth [...] Tablet (Crestor)Indications: NSTEMI (non-ST elevated myocardial infarction) ([facility]) Take 1 Tablet by mouth in the morning. 90 Tablet 3 05/18/2023 Active Nitroglycerin 0.4 MG Sublingual Tablet Sublingual (Nitrostat)Indication s:NSTEMI (non-ST elevated myocardial infarction) ([facility]) Place 1 Tablet under the tongue as needed for Pain, Chest. May repeat 3 times. If chest pain continues, call 911. 25 Tablet 11 05/18/2023 Active Probiotic Acidophilus Oral Capsule Take by mouth daily. 0 Active Torsemide 20 MG Oral Tablet (Demadex) Take 1 Tablet by mouth in the morning. 30 Tablet 3 06/23/2023 Active Famotidine 20 MG Oral Tablet (Pepcid) Take 1 Tablet by mouth in the morning. 30 Tablet 11 06/30/2023 Active Isosorbide Mononitrate ER 60 MG Oral Tablet Extended Release 24 Hour (Imdur)Indications:HF rEF (heart failure with reduced ejection fraction) ([facility]) Take 1 Tablet by mouth in the morning. 30 Tablet 3 07/03/2023 Active Clopidogrel Bisulfate 75 MG Oral Tablet (pLAVix)Indications:H FrEF (heart failure with reduced ejection fraction) ([facility]) Take 1 Tablet by mouth in the morning. 30 Tablet 3 07/03/2023 Active documented as of this encounter (statuses as of 07/07/2023) Active Problems Problem Noted Date HFrEF (heart [...] in situ 04/17/2014 Sinus node dysfunction 04/17/2014 half-way current use of anticoagulant t herapy 11/12/2010 [...] as of this encounter (statuses as of 07/07/2023) Resolved Problems Problem Noted Date Resolved Date [...] Stent Restenosis in Drug-Eluting Stents Project # [id number] Wind Farm Designer: Wilda Serrano MD [phone] GENOMICS CARDIO RESEARCH OTHER*[id number] 200611/29/2016 Overview: Renamed Per Clinical Trials Billing Project. 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 # [id number] Wind Farm Designer: Wilda Serrano MD [phone] Type 2 diabetes mellitus wit h hemoglobin A1c goal of less than 7.0% 11/03/2006 08/15/2007 Overview: ICD-10 update of inactive term PURE HYPERCHOLESTEROLEM 11/03/2006 10/01/20 09 Overview: Per Lipid Taxonomy. 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/2008 half-way current use of anticoagulant therapy 0 05/05/2006 01/23/2009 Overview: ICD-10 update of inactive term Anticoagulation management encounter 05/05/2006 10/03/2019 Unspecified viral infection, in conditions classified elsewhere and of unspecified site 06/08/2005 09/25/2007 Menopause 12/19/2001 12/27/2017 FEM STRESS INCONTINENCE 05/10/2001 12/04/19 02 documented as of this encounter (statuses as of 07/07/2023) Immunizations Name Administration Dates Next Due COVID-19 mRNA, LNP-s, No Pre serve, 2-Dose Series ([email or web address]) 09/13/2021,01/05/2021,12/15/2020 Covid-19, Mrna, Lnp-s, Pf, B ivalent, [...] Srini Doyle, [address] [place] [address] 08/01/2023 Office Visit Family Medicine Oneida Briggs PA-C [address] [place] [address] 08/01/2023 Anticoagulation Pharmacy Pharmacist2, [facility] [address] [place] [address] 09/13/2023 Office Visit Cardiology Srini Doyle, [address] [place] [address] 10/06/2023 Office Visit Otolaryngology Keely Tanner PA-C [address] [place] [address] 11/20/2023 Office Visit Family Medicine Yaya Frederick MD [address] [place] [address] 12/01/2023 Office Visit Hematology Oncology Agustín Sullivan MD [address] [facility] [place] [address] 12/04/2023 Office Visit Cardiology Bucky Calvo PA-C [address] [place] [address] Health Maintenance Due Date Last Done Comments Zoster Vaccines (1 of 2) 1954 Depression Screening 02/09/2024 02/08/2023 CKD PHOS USE SMARTSET 52715 05/01/202404/22, 11/04/2022, 02/14/2019 Albumin/Creatinine Ratio 06/15/2024 023, 05/01/2023, 07/04/2022, Additional history exists CKD HGB USE SMARTSET 86388 07/07/202407/07, 07/07/2023, 06/13/2023, Additional history exists DXA Scan 11/09/2024 11/09/2022, 01/21, 11/03/2015, Additional history exists DTaP,Tdap,and Td Vaccines (3 - Td or Tdap) 06/04/2029 06/04/2019, 01/28/2019, 05/26/2008 Pneumococcal Vaccine: 65+ Years Completed 05/24/2016, 11/14/2001 COVID-19 Vaccine Completed 09/29/2022, , 01/05/2021, Additional history exists VITAMIN D LEVEL ONCE IN A LIFETIME-USE SMARTSET# 37700 Completed 05/01/2023, 11/04/2022, 02/14/2019, Additional history exists [...] Procedure Name Priority Date/Time Associated Diagnosis Comments DIFFERENTIAL, AUTOMATED STAT 07/07/2023 11:02 AM EDT Essential thrombocythemia (HCC) BASIC METABOLIC PANEL Routine 07/07/2023 11:02 AM EDT Kidney disease, chronic, stage IV (GFR 15-29 ml/min) (HCC) CBC WITH WBC DIFFERENTIAL STAT 07/07/2023 11:02 AM EDT Essential thrombocythemia (HCC) PT INR Routine 07/07/2023 11:02 AM EDT S/P aortic valve replacement CBC STAT 07/07/2023 11:02 AM EDT Essential thrombocythemia (HCC) documented in this encounter Results * (ABNORMAL) DIFFERENTIAL, AUTOMATED (07/07/2023 11:02 AM EDT) WBC 7.68 4.00 - 10.80 K/uL 07/07/2023 11:08 AM EDT [facility] [place] [facility] Neutrophils % 75.4(H) 40.0 - 75.0 % 07/07/2023 11:08 AM EDT [facility] [place] [facility]10 Lymphocytes % 9.2(L) 18.0 - 42.0 % 07/07/2023 11:08 AM EDT [facility] [place] 57[facility]10 Monocytes % 11.7(H) 1.0 - 11.0 % 07/07/2023 11:08 AM EDT [facility] [place] [facility]10 Eosinophils % 3.0 0.0 - 6.0 % 07/07/2023 11:08 AM EDT [facility] [place] 57[facility]10 Basophils % 0.7 0.0 - 2.0 % 07/07/2023 11:08 AM EDT [facility] [place] [facility]10 Absolute Neutrophils 5.79 1.80 - 7.70 K/uL 07/07/2023 11:08 AM EDT [facility] [place] [facility]10 Absolute Lymphocytes 0.71(L) 1.00 - 4.80 K/ul 07/07/2023 11:08 AM EDT [facility] [place] [facility]10 Absolute Monocytes 0.90 0.00 - 1.10 K/uL 07/07/2023 11:08 AM EDT [facility] [place] [facility]10 Absolute Eosinophils 0.23 0.00 - 0.70 K/uL 07/07/2023 11:08 AM EDT [facility] [place] [facility]10 Absolute Basophils 0.05 0.00 - 0.20 K/uL 07/07/2023 11:08 AM EDT [facility] [place] [facility]10 Blood Venous blood specimen / Unknown Venipuncture / Unknown 07/07/2023 11:02 AM EDT 07/07/2023 11:02 AM EDT Agustín Sullivan MD LAB BLOOD ORDERABLES [facility] [place] [facility]10 [address] [place] [address] * (ABNORMAL) CBC (07/07/2023 11:02 AM EDT) WBC 7.68 4.00 - 10.80 K/uL 07/07/2023 11:08 AM EDT [facility] [place]10 RBC 3.48 3.85 - 5.15 M/uL 07/07/2023 11:08 AM EDT [facility] [place] [facility]10 HGB 11.7(L) 12.0 - 15.3 g/dL 07/07/2023 11:08 AM EDT [facility] [place]10 HCT 38.9 36.0 - 45.2 % 07/07/2023 11:08 AM EDT [facility] [place]10 MCV 111.8 81.5 - 97.5 fL 07/07/2023 11:08 AM EDT [facility] [place]10 MCH 33.6 27.0 - 34.0 pg 07/07/2023 11:08 AM EDT [facility] [place] 5710 MCHC 30.1 32.0 - 36.0 g/dL 07/07/2023 11:08 AM EDT [facility] [place] 5710 RDW 15.7 11.5 - 15.5 % 07/07/2023 11:08 AM EDT LABORATORY [address] PLT 238 140 - 400 K/uL 07/07/2023 11:08 AM EDT [facility] [place] 5710 MPV 11.4 6.6 - 11.1 fL 07/07/2023 11:08 AM EDT [facility] [place] [facility] Blood Venous blood specimen / Unknown Venipuncture / Unknown 07/07/2023 11:02 AM EDT 07/07/2023 11:02 AM EDT Agustín Sullivan MD LAB BLOOD ORDERABLES [facility] [place] [address] [place] [address] * (ABNORMAL) BASIC METABOLIC PANEL (07/07/2023 11:02 AM EDT) BUN 36(H) 6 - 20 mg/dL 07/07/2023 12:14 PM EDT [facility] [place] Creatinine 1.5(H) 0.5 - 1.0 mg/dL 07/07/2023 12:14 PM EDT [facility] [place] Estimated Glomerular Filtration Rate 34(L) >=60 mL/min 07/07/2023 12:14 PM EDT [facility] [place] 5710 Comment:eGFR is calculated b ased on the CKD-EPI 2020 equation Sodium 142 135 - 146 mmol/L 07/07/2023 12:14 PM EDT [facility] [place] 5710 Potassium 3.7 3.5 - 5.1 mmol/L 07/07/2023 12:14 PM EDT [facility] [place] [facility]10 Chloride 95(L) 98 - 107 mmol/L 07/07/2023 12:14 PM EDT [facility] CO2 33(H) 22 - 32 mmol/L 07/07/2023 12:14 PM EDT [facility] Anion Gap 14 7 - 15 mmol/L 07/07/2023 12:14 PM EDT [facility] [place]10 Glucose 120 70 - 120 mg/dL 07/07/2023 12:14 PM EDT [facility] [place] 57[facility]10 Calcium 9.9 8.4 - 10.2 mg/dL 07/07/2023 12:14 PM EDT [facility] [place] [facility]10 Blood Venous blood specimen / Unknown Venipuncture / Unknown 07/07/2023 11:02 AM EDT 07/07/2023 11:02 AM EDT Juno Christianson MD LAB BLOOD ORDERABLES [facility] [place] [place] [address] * (ABNORMAL) PT INR (07/07/2023 11:02 AM EDT) [facility] Prothrombin Time 23.8(H) 11.6 - 15.2 seconds 07/07/2023 11:28 AM EDT [id number] INR 2.1(H) 0.8 - 1.2 07/07/2023 11:28 AM EDT [facility] Blood Venous blood specimen / Unknown Venipuncture / Unknown 07/07/2023 11:02 AM EDT 07/07/2023 11:02 AM EDT Narrative [facility] - 07/07/2023 11:28 AM EDT Warfarin Therapy INR: 2.0-3.0 conventional 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 INR: 2.5-3.5 high intensity 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 Raquel Alcantara [facility] LAB BLOOD ORDER TAWNYA [facility] [place]10 [address] [facility] [place] [address] documented in this encounter Visit Diagnoses Diagnosis S/P aortic valve replacement Heart valve replaced by other means Essential thrombocythemia (HCC) Essential thrombocythemia Kidney disease, chronic, stage IV (GFR 15-29 ml/min) (HCC) Chronic kidney disease, Stage IV (severe) documented in this encounter Additional Health Concerns Infection Onset Date Last Indicated Resolved Time Varicella zoster 08/01/2022 08/01/2022 ESBL 01/26/2023 05/31/2023 documented as of this encounter Care Teams Medical Affairs Manager Relationship Specialty Start Date End Date Yaya Frederick MD [address] [facility], [place] [address] PCP - General Family Medicine 05/04/21 documented as of this encounter
--- OUTSIDE RECORDS SUMMARY | 2023-09-12 22:28 | External Medical Summary | Summary of Care ---
Author Name Unknown Organization [facility] Address [address] [facility] [place] [address] Phone [phone] Care Team Providers Care Reading Assistant Name Role Phone Yaya Frederick MD Primary Care Provider [phone] Reason for Visit * Reason Comments Dosage Adjustment In Person (Anticoag Cl inic) Encounter Details Date Type Department Care Team Description 07/07/2023 [address] [address] Pharmacist1, [facility] [address] [address] S/P aortic valve replacement* Allergies Active Allergy [...] SolutionIndications:P ost-nasal discharge Administer into nostril 1 [place] in the morning AND 1 [place] before bedtime. 30 mL 0 11/30/2021 Active Fexofenadine HCl 180 MG Oral Tablet (Lizzette) Take by mouth 1 Tablet daily as needed for Allergies. 90 Tablet 0 01/21/2022 Active Ipratropium [place] 0.03 % Nasal Solution Administer into each [...] 500 MG Oral Capsule (Hydrea)Indications:E ssential thrombocythemia ([facility]) Take 1 capsule by mouth [...] (Crestor)Indications: NSTEMI (non-ST elevated myocardial infarction) ([facility]) Take 1 Tablet by mouth in the morning. 90 Tablet 3 05/18/2023 Active Nitroglycerin 0.4 MG Sublingual Tablet Sublingual (Nitrostat)Indication s:NSTEMI (non-ST elevated myocardial infarction) ([facility]) Place 1 Tablet under the [...] (heart failure with reduced ejection fraction) ([facility]) Take 1 Tablet by mouth in the morning. 30 Tablet 3 07/03/2023 Active Clopidogrel Bisulfate 75 MG Oral Tablet (pLAVix)Indications:H FrEF (heart failure with reduced ejection fraction) ([facility]) Take 1 Tablet by mouth [...] in situ 04/17/2014 Sinus node dysfunction 04/17/2014 [facility]DC current use of anticoagulant t herapy 11/12/2010 [...] Stent Restenosis in Drug-Eluting Stents Project # [id number] Gum Scoring Machine Operator: Wilda Serrano MD [phone] GENOMICS CARDIO RESEARCH OTHER*[id number] 200611/29/2016 Overview: Renamed Per Clinical Trials Billing Project. 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 # [id number] Gum Scoring Machine Operator: Wilda Serrano MD [phone] Type 2 diabetes mellitus wit h hemoglobin A1c goal of less than 7.0% 11/03/2006 08/15/2007 Overview: ICD-10 update of inactive term PURE HYPERCHOLESTEROLEM 11/03/2006 10/01/20 09 Overview: Per Lipid Taxonomy. 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 therapy 0 05/05/2006 [...] as of this encounter Progress Notes * Raquel Alcantara, [facility] - 07/07/2023 1:02 PM EDT Medication Therapy Disease Management - Anticoagulation Patient: Shannon Cruz | : 1935 Subjective Contacts Type Contact Phone/Fax 07/07/2023 01:02 PM EDT Phone (Outgoing) Shannon Cruz (Self) [phone] (M) Patient-Reported Symptoms: Patient Findings Negatives: Signs/symptoms of thrombosis, Signs/symptoms of bleeding, Change in health, Change in alcohol use, Change in activity, Upcoming invasive procedure, Missed doses, Extra doses, Change in medications, Change in diet/appetite, Bruising Objective Current Warfarin Dose As of 07/07/2023 Warfarin maintenance plan: 0 mg every Wed; 1.25 mg (2.5 mg x 0.5) all other days INR Result As of 07/07/2023 INR goal: 2.0-3.0 INR used for dosin.1 (07/07/2023) Assessment & Plan Warfarin Plan As of 07/07/2023 Full warfarin instructions: 0 mg every Wed; 1.25 mg all other days No change documented: Raquel Alcantara RPh Next INR check: Repeat PT/INR in 4 week(s) Weekly dose: not changed Additional Dosing Information: Description Sent orders to [facility] at Fax#: [phone] Please call results to [facility] at Or Fax to [phone] Raquel Alcantara romina Clinical Pharmacist 07/07/2023, 1:02 PM documented in this encounter Plan of Treatment Upcoming Encounters Date Type Specialty Care Team Description 07/17/2023 Office Visit Cardiology Srini Doyle, [address] [place] [address] 08/01/2023 Office Visit Family Medicine Oneida Briggs PA-C [address] [place] [address] 08/01/2023 Anticoagulation Pharmacy [address] [place] [address] [address] [place] [address] 09/13/2023 Office Visit Cardiology Srini Doyle DO [address] [place] [address] 10/06/2023 Office Visit Otolaryngology Keely Tanner PA-C [address] [place] [address] 11/20/2023 Office Visit Family Medicine Yaya Frederick MD [address] [place] [address] 12/01/2023 Office Visit Hematology Oncology Agustín Sullivan MD [address] [place] [address], [place] [address] 12/04/2023 Office Visit Cardiology Bucky Calvo PA-C [address] [place] [address] Health Maintenance Due Date Last Done Comments Zoster Vaccines (1 of 2) 1954 Depression Screening 02/09/2024 02/08/2023 CKD PHOS USE SMARTSET 35330 05/01/202404/22, 11/04/2022, 02/14/2019 Albumin/Creatinine Ratio 06/15/2024 023, 05/01/2023, 07/04/2022, Additional history exists CKD HGB USE SMARTSET 46185 07/07/202407/07, 07/07/2023, 06/13/2023, Additional history exists DXA Scan 11/09/2024 11/09/2022, 01/21, 11/03/2015, Additional history exists DTaP,Tdap,and Td Vaccines (3 - Td or Tdap) 06/04/2029 06/04/2019, 01/28/2019, 05/26/2008 Pneumococcal Vaccine: 65+ Years Completed 05/24/2016, 11/14/2001 COVID-19 Vaccine Completed 09/29/2022, , 01/05/2021, Additional history exists VITAMIN D LEVEL ONCE IN A LIFETIME-USE SMARTSET# 77514 Completed 05/01/2023, 11/04/2022, 02/14/2019, Additional history exists [...] documented as of this encounter Care Teams Reading Assistant Relationship Specialty Start Date End Date Yaya Frederick MD [place], [place] [id number] PCP - General Family Medicine 05/04/21 documented as of this encounter"
--- OUTSIDE RECORDS SUMMARY | 2023-09-12 22:28 | External Medical Summary ---
Author Name Unknown Address Unknown Organization [id number][facility] - [address] [place] [address] Laboratory Report Ordering Provider Test Date Status JER FITCH 07/07/2023 11:02:56 Final Observation Date Value Abnormality Reference (Units ) Status SYNC LEUKOCYTES IN BLOOD BY AUTOMATED COUNT 07/07/2023 11:02:56 7.68 4.00-10.80 (K/uL) Final Segs 07/07/2023 11:02:56 75.4 Above high normal 40.0-75.0 (%) Final Lymphs % 07/07/2023 11:02:56 9.2 Below low normal 18.0-42.0 (%) Final Monos 07/07/2023 11:02:56 11.7 Above high normal 1.0-11.0 (%) Final Eosinophils 07/07/2023 11:02:56 3.0 0.0-6.0 (%) Final Basos 07/07/2023 11:02:56 0.7 0.0-2.0 (%) Final Absolute Segs 07/07/2023 11:02:56 5.79 1.80-7.70 (K/uL) Final Lymphs, absolute 07/07/2023 11:02:56 0.71 Below low normal 1.00-4.80 (K/ul) Final Monos, Abs 07/07/2023 11:02:56 0.90 0.00-1.10 (K/uL) Final Eos, Abs 07/07/2023 11:02:56 0.23 0.00-0.70 (K/uL) Final Basos, Abs 07/07/2023 11:02:56 0.05 0.00-0.20 (K/uL) Final Performing Location [facility] 57-1 0 - [address] [place] [address]
--- OUTSIDE RECORDS SUMMARY | 2023-09-12 22:28 | External Medical Summary | Summary of Care ---
Author Name Unknown Organization [facility] Address [address] [facility] [place] [address] Phone [phone] Care Team Providers Care Supervisor Carpenters Name Role Phone Yaya Frederick MD Primary Care Provider [phone] Reason for Visit * Reason Onset Date Comments FYI 07/07/2023 Home care discha rge Encounter Details Date Type Department Care Team Description 07/07/[address] [address] Yaya Frederick MD [address] [place] [address] FYI (Home care discharge ) Allergies Active Allergy Reactions Severity Noted Date [...] SolutionIndications:P ost-nasal discharge Administer into nostril 1 [place] in the morning AND 1 [place] before bedtime. 30 mL 0 11/30/2021 Active Fexofenadine HCl 180 MG Oral Tablet (Lizzette) Take by mouth 1 Tablet daily as needed for Allergies. 90 Tablet 0 01/21/2022 Active Ipratropium [place] 0.03 % Nasal Solution Administer into each [...] MG Oral Capsule (Hydrea)Indications:E ssential thrombocythemia ([facility]) Take 1 capsule by mouth 5 days [...] myocardial infarction) ([facility]) Take 1 Tablet by mouth in the morning. 90 Tablet 3 05/18/2023 Active Nitroglycerin 0.4 MG Sublingual Tablet Sublingual (Nitrostat)Indication s:NSTEMI (non-ST elevated myocardial infarction) ([facility]) Place 1 Tablet under the tongue as [...] ejection fraction) ([facility]) Take 1 Tablet by mouth in the morning. 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 # [id number] [employer] Portal Developer: Wilda Serrano MD [phone] Type 2 diabetes mellitus wit h hemoglobin A1c goal of less than 7.0% 11/03/2006 08/15/2007 Overview: ICD-10 update of inactive term PURE HYPERCHOLESTEROLEM 11/03/2006 10/01/20 09 Overview: Per Lipid Taxonomy. 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 0 05/05/2006 [...] encounter Miscellaneous Notes * Telephone Encounter - GAVIN Busch - 07/07/2023 8:49 AM EDT Germaine from [facility] calling to advise patient was discharged on 07/05/23 patient has met all goals documented in this encounter Plan of Treatment Upcoming Encounters Date Type Specialty Care Team Description 07/17/2023 Office Visit Cardiology Srini Doyle, DO [address] [place] [address] 08/01/2023 Office Visit Family Medicine Oneida Briggs PA-C [address] [place] [address] 08/01/2023 Anticoagulation Pharmacy Pharmacist2, [facility] [address] [place] [address] 09/13/2023 Office Visit Cardiology Srini Doyle DO [address] [place] [address] 10/06/2023 Office Visit Otolaryngology Keely Tanner PA-C [address] [place] [address] 11/20/2023 Office Visit Family Medicine Yaya Frederick MD [address] [place] [address] 12/01/2023 Office Visit Hematology Oncology Agustín Sullivan MD [address] [place] [address], [place] [address] 12/04/2023 Office Visit Cardiology Bucky Calvo PA-C [address] [place] [address] Health Maintenance Due Date Last Done Comments Zoster Vaccines (1 of 2) 1954 Depression Screening 02/09/2024 02/08/2023 CKD PHOS USE SMARTSET 52605 05/01/202404/22, 11/04/2022, 02/14/2019 Albumin/Creatinine Ratio 06/15/20242 023, 05/01/2023, 07/04/2022, Additional history exists CKD HGB USE SMARTSET 79125 07/07/202407/07, 07/07/2023, 06/13/2023, Additional history exists DXA Scan 11/09/2024 11/09/2022, 01/21, 11/03/2015, Additional history exists DTaP,Tdap,and Td Vaccines (3 - Td or Tdap) 06/04/2029 06/04/2019, 01/28/2019, 05/26/2008 Pneumococcal Vaccine: 65+ Years Completed 05/24/2016, 11/14/2001 COVID-19 Vaccine Completed 09/29/2022, , 01/05/2021, Additional history exists VITAMIN D LEVEL ONCE IN A LIFETIME-USE SMARTSET# 90768 Completed 05/01/2023, 11/04/2022, 02/14/2019, Additional history exists [...] documented as of this encounter Care Teams Supervisor Carpenters Relationship Specialty Start Date End Date Yaya Frederick MD [address] [place] [address] PCP - General Family Medicine 05/04/21 documented as of this encounter
--- OUTSIDE RECORDS SUMMARY | 2023-09-12 22:28 | External Medical Summary ---
Author Name Unknown Address Unknown Organization K01:LABORATORY C - [address] [facility] [address] Laboratory Report Ordering Provider Test Date Status KYLAH TRIPATHI 07/13/2023 08:29:58 Final Observation Date Value Abnormality Reference (Units ) Status Bacteria identified in Specimen by Culture 07/13/2023 08:29:58 [id number]^ESCHE RICHIA COLI Abnormal Final >100,000 colonies/mL Escheri marissa coli Bacteria identified in Specimen by Culture 07/13/2023 08:29:58 [id number]^STREPTOCOCCUS ANGINOSUS GROUP Abnormal Final >100,000 colonies/mL Strepto coccus anginosus group Performing Location [facility] [place] [address] [facility] [address] Ordering Provider Test Date Status KYLAH TRIPATHI 07/13/2023 08:29:58 Final Observation Date Value Abnormality Reference (Units ) Status Ampicillin 07/13/2023 08:29:58 <=2 Susceptible Final Cefazolin 07/13/2023 08:29:58 <=4 Susceptible Final Cefepime susceptibility 07/13/2023 08:29:58 <=1 Susceptible Final Ceftriaxone suceptibility 07/13/2023 08:29:58 <=1 Susceptible Final Ciprofloxacin 07/13/2023 08:29:58 <=0.25 Susceptible Final Due to serious side effects, the FDA has advised against using Ciprofloxacin to treat uncomplicated UTIs and respiratory tract infections unless there are no alternative treatment options. Gentamicin susceptibility 07/13/2023 08:29:58 <=1 Susc eptible Final Nitrofurantoin susceptibility 07/13/2023 08:29:58 32 Susceptible Final Piperacillin + Tazobactamsusceptibility 07/13/2023 08:29:58 <=4 Susceptible Final TMP-SMZ susceptibility 07/13/2023 08:29:58 <=20 Suscept ible Final Test: Culture, Urine, Quant itative
Specimen Source: Urine, Clean Catch
Specimen Type: Urine
Specimen Date: 07/13/2023 8:29 AM
Result Date: 07/17/2023 1:51 PM
Result Status: Final result
Abnormal: Yes
Resulting Lab: [facility] [place]
[address]
[facility] [address]

CULTURE

>100,000 colonies/mL Escherichia coli (Abnormal)

>100,000 colonies/mL Streptococcus anginosus group (Abnormal)

SUSCEPTIBILITY

Escherichia coli
METHOD MICROBROTH DILUTIONS

AMPICILLIN <=2 Susceptible
CEFAZOLIN <=4 Susceptible
CEFEPIME <=1 Susceptible
CEFTRIAXONE <=1 Susceptible
CIPROFLOXACIN <=0.25 Susceptible [1]
GENTAMICIN <=1 Susceptible
NITROFURANTOIN 32 Susceptible
PIPERACILLIN TAZOBACTAM <=4 Susceptible
TRIMETH/SULFAMETHOXAZOLE <=20 Susceptible

[1] Due to serious side effects, the FDA has advised against using
Ciprofloxacin to treat uncomplicated UTIs and respiratory tract infections
unless there are no alternative treatment options.

null Performing Location [facility] [place] [address] [facility] [address]
--- OUTSIDE RECORDS SUMMARY | 2023-09-12 22:28 | External Medical Summary ---
Author Name Unknown Address Unknown Organization K0G:LABORATORY [facility] 57[address] - [address] [place] [id number] Laboratory Report Ordering Provider Test Date Status OJ CHUNG 07/07/2023 11:02:56 Final In 7-14 days Observation Date Value Abnormality Reference (Units ) Status BUN 07/07/2023 11:02:56 36 Above high normal 6-20 (mg/dL) Final Creatinine 07/07/2023 11:02:56 1.5 Above high normal 0.5-1.0 (mg/dL) Final Glomerular filtration rate/1.73 sq M.predicted [Volume Rate/Area] in Serum, Plasma or Blood by Creatinine-based formula (CKD-EPI) 07/07/2023 11:02:56 34 Below low normal >=60 (mL/min) Final eGFR is calculated based on the CKD-EPI 2020 equation SODIUM 07/07/2023 11:02:56 142 135-146 (m mol/L) Final Potassium 07/07/2023 11:02:56 3.7 3.5-5.1 (m mol/L) Final Cl 07/07/2023 11:02:56 95 Below low normal 98- 107 (mmol/L) Final CO2 07/07/2023 11:02:56 33 Above high normal 22 -32 (mmol/L) Final Anion gap 07/07/2023 11:02:56 14 7-15 (mmol /L) Final Glucose 07/07/2023 11:02:56 120 70-120 (mg /dL) Final Calcium 07/07/2023 11:02:56 9.9 8.4-10.2 ( mg/dL) Final Performing Location LABORATORY [place] 57-[address] 0 - [address] [place] [id number]
--- OUTSIDE RECORDS SUMMARY | 2023-09-12 22:28 | External Medical Summary | Summary of Care ---
Author Name Unknown Organization [facility] Address [address] [facility] [place] [address] Phone [phone] Care Team Providers Care Practical Nursing Teacher Name Role Phone Yaya Frederick MD Primary Care Provider [phone] Reason for Visit * Reason Onset Date Comments Medication Refill 07/10/2023 Encounter Details Date Type Department Care Team Description 07/10/[address] [address] Yaya Frederick MD [address] [place] [address] [id number] Allergies Active Allergy Reactions Severity Noted Date [...] as of this encounter (statuses as of 07/11/2023) Medications Medication Sig Dispensed Refills Start Date End Date Status BENADRYL 25 MG PO TABS 1 TABLET EVERY 4 TO 6 HOURS NEEDED 0 Active MAG-OXIDE 400 MG PO TABSIndications:Folding Machine Operator jayda ischemic heart disease one tablet twice a day 60 Tab 5 01/05/2011 Active Additional Information Patient taking differently: 400 mgOralDaily(AM), Reported on 11/21/2022 GRX ANALGESIC BALM EX OINT Apply topically to affected area. 0 07/01/2013 Active Azelastine HCl 0.15 % Nasal SolutionIndications: Post-nasal discharge Administer into nostril 1 [place] in the morning AND 1 [place] before bedtime. 30 mL 0 11/30/2021 Active Fexofenadine HCl 180 MG Oral Tablet (Lizzette) Take by mouth 1 Tablet daily as needed for Allergies. 90 Tablet 0 01/21/2022 Active Ipratropium [place] 0.03 % Nasal Solution Administer into each nostril 2 Sprays 2 times a day as needed for Rhinitis. 30 mL 5 02/23/2022 Active Warfarin Sodium 2.5 MG Oral TabletIndications:Ch ronic ischemic heart disease Up to one tablet daily as directed by the Antico clinic 100 Tablet 3 08/09/2022 Active Metoprolol [...] Tablet (Crestor)Indications :NSTEMI (non-ST elevated myocardial infarction) ([facility]) Take 1 Tablet by mouth in the morning. 90 Tablet 3 05/18/2023 Active Nitroglycerin 0.4 MG Sublingual Tablet Sublingual (Nitrostat)Indicatio ns:NSTEMI (non-ST elevated myocardial infarction) ([facility]) Place 1 Tablet under the [...] FrEF (heart failure with reduced ejection fraction) ([facility]) Take 1 Tablet by mouth in the morning. 30 Tablet 3 07/03/2023 Active Clopidogrel Bisulfate 75 MG Oral Tablet (pLAVix)Indications: HFrEF (heart failure with reduced ejection fraction) ([facility]) Take 1 Tablet by mouth [...] as of this encounter (statuses as of 07/11/2023) Active Problems Problem Noted Date HFrEF (heart [...] in situ 04/17/2014 Sinus node dysfunction 04/17/2014 halfway current use of anticoagulant t herapy 11/12/2010 [...] as of this encounter (statuses as of 07/11/2023) Resolved Problems Problem Noted Date Resolved Date [...] Stent Restenosis in Drug-Eluting Stents Project # [id number] Briquette Machine Operator: Wilda Serrano MD [phone] GENOMICS CARDIO RESEARCH OTHER*[id number] 200611/29/2016 Overview: Renamed Per Clinical Trials Billing Project. 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 # [id number] Briquette Machine Operator: Wilda Serrano MD [phone] Type 2 diabetes mellitus wit h hemoglobin A1c goal of less than 7.0% 11/03/2006 08/15/2007 Overview: ICD-10 update of inactive term PURE HYPERCHOLESTEROLEM 11/03/2006 10/01/20 09 Overview: Per Lipid Taxonomy. 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/2008 halfway current use of anticoagulant therapy 0 05/05/2006 01/23/2009 Overview: ICD-10 update of inactive term Anticoagulation management encounter 05/05/2006 10/03/2019 Unspecified viral infection, in conditions classified elsewhere and of unspecified site 06/08/2005 09/25/2007 Menopause 12/19/2001 12/27/2017 FEM STRESS INCONTINENCE 05/10/2001 12/04/19 02 documented as of this encounter (statuses as of 07/11/2023) Immunizations Name Administration Dates Next Due COVID-19 mRNA, LNP-s, No Pre serve, 2-Dose Series ([employer]) 09/13/2021,01/05/2021,12/15/2020 Covid-19, Mrna, Lnp-s, Pf, B ivalent, [...] encounter Miscellaneous Notes * Telephone Encounter - Andres Hoyt RPh - 07/11/2023 10:16 AM EDT Signed Prescriptions: Disp Refills Famotidine 20 MG Oral Tablet (Pepcid) 30 Tab*11 Sig: Take 1 Tablet by mouth in the morning. Authorizing Provider: ONEIDA BRIGGS Ordering User: ANDRES HOYT * Telephone Encounter - Aneta Coombs CPhT - 07/10/2023 1:17 PM EDT Please reroute Rx to [facility] [facility] [place]. Pending Prescriptions: Disp Refills [...] Srini Doyle, [address] [place] [address] 08/01/2023 Office Visit Family Medicine Oneida Briggs PA-C [address] [place] [address] 08/01/2023 Anticoagulation Pharmacy Pharmacist, [address] [address] 09/13/2023 Office Visit Cardiology Srini Doyle DO [address] [place] [address] 10/06/2023 Office Visit Otolaryngology Keely Tanner PA-C [address] [place] [address] 11/20/2023 Office Visit Family Medicine Yaya Frederick MD [address] [place] [address] 12/01/2023 Office Visit Hematology Oncology Agustín Sullivan MD [address] [place] [address] 12/04/2023 Office Visit Cardiology Bucky Calvo PA-C [address] [place] [address] Health Maintenance Due Date Last Done Comments Zoster Vaccines (1 of 2) 1954 Depression Screening 02/09/2024 02/08/2023 CKD PHOS USE SMARTSET 23505 05/01/202404/22, 11/04/2022, 02/14/2019 Albumin/Creatinine Ratio 06/15/2024 023, 05/01/2023, 07/04/2022, Additional history exists CKD HGB USE SMARTSET 31292 07/07/202407/07, 07/07/2023, 06/13/2023, Additional history exists DXA Scan 11/09/2024 11/09/2022, 01/21, 11/03/2015, Additional history exists DTaP,Tdap,and Td Vaccines (3 - Td or Tdap) 06/04/2029 06/04/2019, 01/28/2019, 05/26/2008 Pneumococcal Vaccine: 65+ Years Completed 05/24/2016, 11/14/2001 COVID-19 Vaccine Completed 09/29/2022, , 01/05/2021, Additional history exists VITAMIN D LEVEL ONCE IN A LIFETIME-USE SMARTSET# 28441 Completed 05/01/2023, 11/04/2022, 02/14/2019, Additional history exists [...] documented as of this encounter Care Teams Practical Nursing Teacher Relationship Specialty Start Date End Date Yaya Frederick MD [address] [place] [address] [phone] PCP - General Family Medicine 05/04/21 documented as of this encounter
--- OUTSIDE RECORDS SUMMARY | 2023-09-12 22:28 | External Medical Summary ---
Author Name Unknown Address Unknown Organization K0G:LABORATORY [place] [address] - [address] [place] [id number] Laboratory Report Ordering Provider Test Date Status BARI CANDELARIO 07/07/2023 11:02:56 Final Warfarin Therapy
INR: 2 .0-3.0 conventional 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
INR: 2.5- 3.5 high intensity 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 Observation Date Value Abnormality Reference (Units ) Status PT 07/07/2023 11:02:56 23.8 Above high normal 11 .6-15.2 (seconds) Final INR 07/07/2023 11:02:56 2.1 Above high normal 0. 8-1.2 Final Performing Location LABORATORY [place] 57-[address] 0 - [address] [place] [id number]
--- OUTSIDE RECORDS SUMMARY | 2023-09-12 22:28 | External Medical Summary | Summary of Care ---
Author Name Unknown Organization [facility] Address [address] [facility] [address] Phone [phone] Care Team Providers Care Windows Support Engineer Name Role Phone Yaya Frederick MD Primary Care Provider [phone] Reason for Visit * Reason Comments Outpatient Testing Encounter Details Date Type Department Care Team Description 07/13/2023 Laboratory Laboratory Patient Service [address] [address] [address] Suspected UTI Allergies Active Allergy Reactions Severity Noted Date [...] SolutionIndications:P ost-nasal discharge Administer into nostril 1 [place] in the morning AND 1 [place] before bedtime. 30 mL 0 11/30/2021 Active Fexofenadine HCl 180 MG Oral Tablet (Lizzette) Take by mouth 1 Tablet daily as needed for Allergies. 90 Tablet 0 01/21/2022 Active Ipratropium [place] 0.03 % Nasal Solution Administer into each [...] Tablet (Crestor)Indications: NSTEMI (non-ST elevated myocardial infarction) ([facility]) Take 1 Tablet by mouth in the morning. 90 Tablet 3 05/18/2023 Active Nitroglycerin 0.4 MG Sublingual Tablet Sublingual (Nitrostat)Indication s:NSTEMI (non-ST elevated myocardial infarction) ([facility]) Place 1 Tablet under the tongue [...] rEF (heart failure with reduced ejection fraction) ([facility]) Take 1 Tablet by mouth in the morning. 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 # [id number] Bar Useful Or Busser: Wilda Serrano MD [phone] Type 2 diabetes mellitus wit h hemoglobin A1c goal of less than 7.0% 11/03/2006 08/15/2007 Overview: ICD-10 update of inactive term PURE HYPERCHOLESTEROLEM 11/03/2006 10/01/20 09 Overview: Per Lipid Taxonomy. 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/2008 care home current use of anticoagulant therapy 0 [...] Cardiology Srini Doyle, [address] [place] [address] 08/01/2023 Office Visit Family Medicine Oneida Briggs PA-C [address] [place] [address] 08/01/2023 [facility] Pharmacist, [address] [address] 09/13/2023 Office Visit Cardiology Srini Doyle, [address] [place] [address] 10/06/2023 Office Visit Otolaryngology Keely Tanner PA-C [address] [place] [address] 11/20/2023 Office Visit Family Medicine Yaya Frederick MD [address] [place] [address] 12/01/2023 Office Visit Hematology Oncology [facility] [address] 12/04/2023 Office Visit Cardiology Bucky Calvo PA-C [address] [place] [address] Pending Results Name Type Priority Associated Diagnoses Date /Time CULTURE, URINE, QUANTITATIVE Lab Routine Suspected UTI 07/13/2023 8:29 AM EDT URINALYSIS WITH MICROSCOPIC EXAM Lab Routine Suspected UTI 07/13/2023 8:29 AM EDT Health Maintenance Due Date Last Done Comments Zoster Vaccines (1 of 2) 1954 Depression Screening 02/09/2024 02/08/2023 CKD PHOS USE SMARTSET 44980 05/01/202404/22, 11/04/2022, 02/14/2019 Albumin/Creatinine Ratio 06/15/2024 023, 05/01/2023, 07/04/2022, Additional history exists CKD HGB USE SMARTSET 12110 07/07/202407/07, 07/07/2023, 06/13/2023, Additional history exists DXA Scan 11/09/2024 11/09/2022, 01/21, 11/03/2015, Additional history exists DTaP,Tdap,and Td Vaccines (3 - Td or Tdap) 06/04/2029 06/04/2019, 01/28/2019, 05/26/2008 Pneumococcal Vaccine: 65+ Years Completed 05/24/2016, 11/14/2001 COVID-19 Vaccine Completed 09/29/2022, , 01/05/2021, Additional history exists VITAMIN D LEVEL ONCE IN A LIFETIME-USE SMARTSET# 97538 Completed 05/01/2023, 11/04/2022, 02/14/2019, Additional history exists [...] as of this encounter Visit Diagnoses Diagnosis Suspected UTI documented in this encounter Additional Health Concerns Infection Onset Date Last Indicated Resolved Time Varicella zoster 08/01/2022 08/01/2022 ESBL 01/26/2023 05/31/2023 documented as of this encounter Care Teams Windows Support Engineer Relationship Specialty Start Date End Date Yaya Frederick MD [address] [place] [address] PCP - General Family Medicine 05/04/21 documented as of this encounter
--- OUTSIDE RECORDS SUMMARY | 2023-09-12 22:28 | External Medical Summary | Summary of Care ---
Author Name Unknown Organization [facility] Address [address] [facility] [place] [address] Phone [phone] Care Team Providers Care Machine Heel Seat Fitter Name Role Phone Yaya Obando MD Primary Care Provider [phone] Reason for Visit * Reason Onset Date Comments Med Request 07/03/2023 Encounter Details Date Type Department Care Team Description 07/03/[address] [address] Yaya Obando MD [address] [place] [address] Med Request Allergies Active Allergy Reactions Severity Noted Date [...] as of this encounter (statuses as of 07/03/2023) Medications Medication Sig Dispensed Refills Start Date End Date Status BENADRYL 25 MG PO TABS 1 TABLET EVERY 4 TO 6 HOURS NEEDED 0 Active MAG-OXIDE 400 MG PO TABSIndications:Base Filler jayda ischemic heart disease one tablet twice a day 60 Tab 5 01/05/2011 Active Additional Information Patient taking differently: 400 mgOralDaily(AM), Reported on 11/21/2022 GRX ANALGESIC BALM EX OINT Apply topically to affected area. 0 07/01/2013 Active Azelastine HCl 0.15 % Nasal SolutionIndications: Post-nasal discharge Administer into nostril 1 [place] in the morning AND 1 [place] before bedtime. 30 mL 0 11/30/2021 Active Fexofenadine HCl 180 MG Oral Tablet (Lizzette) Take by mouth 1 Tablet daily as needed for Allergies. 90 Tablet 0 01/21/2022 Active Ipratropium [place] 0.03 % Nasal Solution Administer into each [...] Tablet (Crestor)Indications :NSTEMI (non-ST elevated myocardial infarction) ([facility]) Take 1 Tablet by mouth in the morning. 90 Tablet 3 05/18/2023 Active Nitroglycerin 0.4 MG Sublingual Tablet Sublingual (Nitrostat)Indicatio ns:NSTEMI (non-ST elevated myocardial infarction) ([facility] [...] Active Clopidogrel Bisulfate 75 MG Oral Tablet (pLAVix) Take 1 Tablet by mouth in the morning. 0 05/09/2023 07/03/20 23 Discontinu ed(Refill) Isosorbide Mononitrate ER 60 MG Oral Tablet Extended Release 24 Hour (Imdur) Take 1 Tablet by mouth in the morning. 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 # Clay Modeler: Wilda Serrano MD [phone] Type 2 diabetes mellitus wit h hemoglobin A1c goal of less than 7.0% 11/03/2006 08/15/2007 Overview: ICD-10 update of inactive term PURE HYPERCHOLESTEROLEM 11/03/2006 10/01/20 09 Overview: Per Lipid Taxonomy. 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/2008 [facility] current use of anticoagulant therapy 0 05/05/2006 01/23/2009 Overview: ICD-10 update of inactive term Anticoagulation management encounter 05/05/2006 10/03/2019 Unspecified viral infection, in conditions classified elsewhere and of unspecified site 06/08/2005 09/25/2007 Menopause 12/19/2001 12/27/2017 FEM STRESS INCONTINENCE 05/10/2001 12/04/19 02 documented as of this encounter (statuses as of 07/03/2023) Immunizations Name Administration Dates Next Due COVID-19 mRNA, LNP-s, No Pre serve, 2-Dose Series ([employer]) 09/13/2021,01/05/2021,12/15/2020 Covid-19, Mrna, Lnp-s, Pf, B ivalent, [...] as of this encounter Miscellaneous Notes * Addendum Note - Yaya Obando MD - 07/03/2023 3:55 PM EDTAddended by: YAYA OBANDO on: 07/03/2023 03:55 PM Modules accepted: Orders * Telephone Encounter - Yaya Obando MD - 07/03/2023 3:54 PM EDT Please call in the prescription to patients pharmacy and close encounter. Signed Prescriptions: Disp Refills Isosorbide Mononitrate ER 60 MG Oral Table*30 Tab*3 Sig: Take 1 Tablet by mouth in the morning. Authorizing Provider: YAYA OBANDO Clopidogrel Bisulfate 75 MG Oral Tablet (p*30 Tab*3 Sig: Take 1 Tablet by mouth in the morning. Authorizing Provider: YAYA OBANDO * Telephone Encounter - Adrienne Bowman CPhT - 07/03/2023 8:38 AM EDT Pt is asking for high priority because she is out of the medication . PT calling requesting the following medication below that is listed as "Historical". The following information was provided: Medication Name: Clopidogrel Bisulfate Strength: 75 MG Directions: Take 1 tab by mouth in the morning Preferred Quantity: 90 DS Previous Prescriber: PCP Preferred Pharmacy: [address] [facility] [place] Medication Name: Isosorbide Mononitrate ER Strength: 60 MG Directions: Take 1 tab by mouth in the morning Preferred Quantity: 90 DS Previous Prescriber: PCP Preferred Pharmacy: [address] [place] Please review and approve if appropriate. Thank you, Huong Bowman Refractory Technician I [facility] ([facility]) (Formerly Telepharm[facility]) 07/03/2023,8:38 AM documented in this encounter Plan of Treatment Upcoming Encounters Date Type Specialty Care Team Description 07/07/2023 Cardiac Studies Cardiology Phoenxi Carlson [facility] [address] [place] [address] 07/12/2023 Anticoagulation Pharmacy Pharmacist, [address] [address] 07/17/2023 Office Visit Cardiology Srini Doyle DO [address] [place] [address] 08/01/2023 Office Visit Family Medicine Oneida Briggs PA-C [address] [place] [address] 09/13/2023 Office Visit Cardiology Srini Doyle DO [address] [place] [address] 10/06/2023 Office Visit Otolaryngology Keely Tanner PA-C [address] [place] [address] 11/20/2023 Office Visit Family Medicine Yaya Obando MD [address] [place] [address] 12/01/2023 Office Visit Hematology Oncology Agustín Sullivan MD [address] [place] [phone] 12/04/2023 Office Visit Cardiology Bucky Calvo PA-C [address] [place] [address] Health Maintenance Due Date Last Done Comments Zoster Vaccines (1 of 2) 1954 Depression Screening 02/09/2024 02/08/2023 CKD PHOS USE SMARTSET 85327 05/01/202404/22, 11/04/2022, 02/14/2019 CKD HGB USE SMARTSET 51902 06/13/202406/13, 06/13/2023, 05/15/2023, Additional history exists Albumin/Creatinine Ratio 06/15/2024 023, 05/01/2023, 07/04/2022, Additional history exists DXA Scan 11/09/2024 11/09/2022, 01/21, 11/03/2015, Additional history exists DTaP,Tdap,and Td Vaccines (3 - Td or Tdap) 06/04/2029 06/04/2019, 01/28/2019, 05/26/2008 Pneumococcal Vaccine: 65+ Years Completed 05/24/2016, 11/14/2001 COVID-19 Vaccine Completed 09/29/2022, , 01/05/2021, Additional history exists VITAMIN D LEVEL ONCE IN A LIFETIME-USE SMARTSET# 28169 Completed 05/01/2023, 11/04/2022, 02/14/2019, Additional history exists [...] as of this encounter Visit Diagnoses Diagnosis HFrEF (heart failure with reduced ejection fraction) (HCC)- Primary documented in this encounter Additional Health Concerns Infection Onset Date Last Indicated Resolved Time Varicella zoster 08/01/2022 08/01/2022 ESBL 01/26/2023 05/31/2023 documented as of this encounter Care Teams Machine Heel Seat Fitter Relationship Specialty Start Date End Date Yaya Obando MD [address] [place] [address] PCP - General Family Medicine 05/04/21 documented as of this encounter
--- OUTSIDE RECORDS SUMMARY | 2023-09-12 22:29 | External Medical Summary | Summary of Care ---
Author Name Unknown Organization [facility] Address [address] [place] [address] Phone [phone] Care Team Providers Care Crate Builder Name Role Phone Yaya Frederick MD Primary Care Provider [phone] Reason for Visit * Reason Comments Chronic Kidney Disease (CKD) * Evaluate & Treat - Unlimited Visits (Within 10 days (routine)) - Pending Review Specialty Diagnoses / Procedures Referred By Shellie lake Referred To Contact Nephrology Diagnoses RADHA (acute kidney injury) (HCC) Oneida Briggs PA-C [address] [place] [address] Referral ID Status Reason Start Date Expiration Date Visits Requested Visits Authorized [id number] Pending Review Specialty Services Required 06/15/[phone] Encounter Details Date Type Department Care Team Description 06/23/2023 Office Visit NephrologySkip [address] [place] [address] Juno Christianson MD [address] [place] [address] Kidney disease, chronic, stage IV (GFR 15-29 ml/min) (HCC)*; RADHA (acute kidney injury) (HCC); Bilateral leg edema; Restless legs syndrome; Essential thrombocythemia (HCC); S/P aortic valve replacement; 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 30 mL 0 11/30/19 22 Active Fexofenadine HCl 180 MG Oral Tablet (Lizzette) Take by mouth 1 Tablet daily as needed for Allergies. 90 Tablet 0 01/22/20 22 Active Ipratropium [place] 0.03 % Nasal Solution Administer into [...] Additional Information Patient taking differently: 100 mgOral BID(AM/PM), Reported on 05/25/2023 oxygen IN GAS Use as directed. 2L at bedtime 0 Active Spironolactone 25 MG Oral Tablet (Aldactone)Indicati ons:Chronic ischemic heart disease,HTN, goal below 150/90,Old myocardial infarct Take 0.5 Tablets by mouth in the morning. 45 Tablet 3 04/10/20 23 Active Clopidogrel Bisulfate 75 MG Oral Tablet (pLAVix) Take 1 Tablet by mouth in the morning. 0 05/09/20 23 Active Losartan Potassium 25 MG Oral Tablet [...] Sublingual (Nitrostat)Indicati ons:NSTEMI (non-ST elevated myocardial infarction) ([facility]) Place 1 Tablet under the tongue as needed for Pain, Chest. May repeat 3 times. If chest pain continues, call 911. 25 Tablet 11 05/18/20 23 Active Probiotic Acidophilus Oral Capsule Take by mouth daily. 0 Active Isosorbide Mononitrate ER 60 MG Oral Tablet Extended Release 24 Hour (Imdur) Take 1 Tablet by mouth in the morning. 0 06/10/20 23 Active Famotidine 20 MG Oral Tablet (Pepcid) Take 1 Tablet by mouth in the morning. 30 Tablet 11 06/23/20 23 Active Torsemide 20 MG Oral Tablet (Demadex) Take 1 Tablet by mouth in the morning. 30 Tablet 3 06/23/20 23 Active CALTRATE 600+D 600-400 MG-UNIT PO TABS one tablet twice daily 0 06/17/20 09 023 Discontinued Estrogens Conjugated 0.625 MG/GM Vaginal Cream (Premarin)Indicatio ns:Recurrent UTI Administer 0.5 g into the vagina in the morning. 30 g 2 03/24/20 23 023 Discontinued(Vt dication List Clean Up) Pantoprazole Sodium 40 MG Oral Tablet Delayed Release (Protonix)Indicatio ns:Esophagitis Take 1 Tablet by mouth in the morning. 90 Tablet 1 03/28/20 23 023 Discontinued Torsemide 20 MG Oral Tablet (Demadex)Indication s:Chronic ischemic heart disease Take 1 Tablet by mouth once a day on Monday, Monday, and Monday only. 100 Tablet 2 04/10/20 23 023 Discontinued Magnesium Hydroxide 400 MG/5ML Oral Suspension (Milk of Magnesia) Take by mouth daily as needed for Constipation. 0 023 Discontinued documented as of this encounter (statuses as of 06/23/2023) Active Problems Problem Noted Date RADHA (acute kidney injury) 06/15/2023 Chronic hypoxemic respiratory failure Chronic heart failure with preserved eje ction fraction (HFpEF) 02/08/2023 Hx of actinic keratosis 05/24/2021 Hypertensive kidney disease with stage 3 a chronic kidney disease 08/31/2020 Overview: Per CKD protocol Obstructive sleep apnea of adult 020 Paroxysmal atrial fibrillation 0 Bilateral leg edema 04/16/2018 Hx of nonmelanoma skin cancer 02/19/2018 Overview: Hx BCC R midchest 03/2017 Essential thrombocythemia 10/14/2017 Lumbar spinal stenosis 04/15/2015 Cardiac pacemaker in situ 04/17/2014 Sinus node dysfunction 04/17/2014 jail current use of anticoagulant t herapy 11/12/2010 [...] as of this encounter (statuses as of 06/23/2023) Resolved Problems Problem Noted Date Resolved Date Hypertensive kidney disease with stage 3b chronic [...] Stent Restenosis in Drug-Eluting Stents Project # [id number] Shopfitter: Wilda Serrano MD [phone] GENOMICS CARDIO RESEARCH OTHER*[id number] 200611/29/2016 Overview: Renamed Per Clinical Trials Billing Project. 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 # [id number] Shopfitter: Wilda Serrano MD [phone] Type 2 diabetes mellitus wit h hemoglobin A1c goal of less than 7.0% 11/03/2006 08/15/2007 Overview: ICD-10 update of inactive term PURE HYPERCHOLESTEROLEM 11/03/2006 10/01/20 09 Overview: Per Lipid Taxonomy. 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 0 05/05/2006 01/23/2009 Overview: ICD-10 update of inactive term Anticoagulation management encounter 05/05/2006 10/03/2019 Unspecified viral infection, in conditions classified elsewhere and of unspecified site 06/08/2005 09/25/2007 Menopause 12/19/2001 12/27/2017 FEM STRESS INCONTINENCE 05/10/2001 12/04/19 02 documented as of this encounter (statuses as of 06/23/2023) Immunizations Name Administration Dates Next Due COVID-19 mRNA, LNP-s, No Pre serve, 2-Dose Series ([employer]) 09/13/2021,01/05/2021,12/15/2020 Covid-19, Mrna, Lnp-s, Pf, B ivalent, 30 Mcg, IM, 12 yrs and above (Pfizer) 09/29/2022 H1N1 2009 Influenza, IM 10/08/2009 Pneumococcal Conjugate Vacc, 13 Valent (Prevnar) 05/24/2016 Pneumococcal Polysaccharide PPV23 (Pneumovax) 11/14/2001 Season Influenza, Quad, PF, Adjuvanted, 65+ Yrs, IM (FLUAD) 08/03/2020 Seasonal Influenza Virus Vac cine, Unspecified Formulation 07/19/2021,08/03/2020,07/23/2019,05/2018,08/29/2017,07/28/2016,07/05/20 16,07/07/2014,07/22/2013,07/03/2012,0 07/12/2011,07/21/2010,09/12/2009,08/04,07/23/2007,08/02/2006, 5,08/14/2003,10/01/2001 Seasonal Influenza, PF, 6 [...] Sign Reading Time Taken Comments Blood Pressure 115/70 06/23/2023 1:16 PM EDT Pulse 75 06/23/2023 1:16 PM EDT Temperature 35.6 C (96 F) 06/23/2023 1:16 PM EDT Respiratory Rate - - Oxygen Saturation - - Inhaled Oxygen Concentration - - Weight 76.7 kg (169 lb) 06/23/2023 1:16 PM EDT p er pt Height - - Body Mass Index 34.12 02/24/2023 10:21 AM EDT documented in this encounter Progress Notes * Juno Christianson MD - 06/23/2023 1:18 PM EDT NEPHROLOGY CLINIC NOTE 06/23/2023, 1:19 PM Patient Name: Shannon Cruz Chief Complaint: I was asked to see Ms. Cruz by Dr. Oneida Briggs PAZaynabC for advice regarding RADHA on CKD History of Present Illness: Ms. Cruz is a 88 year old female with below mentioned past medical history comes to the nephrology clinic to establish care. I reviewed the medical records in [facility] . History was obtained from the patient. Patient was admitted to [facility], discharged on June 10 for NSTEMI and CHF exacerbation, during hospitalization was treated with Lasix drip. Losartan and Aldactone were held. Cardiac catheterization was considered but deferred given poor candidacy Was discharged on torsemide 20 mg, Imdur 60 mg, further hospital course was complicated ESBL UTI, treated with ertapenem. Patient also had a prior hospitalization in April with [place] , CVA Status of chronic issues Hyperlipidemia [...] recent creatinine 2.0. Albumin creatinine ratio 167 No NSAID use Patient denies any gross hematuria, dysuria, obstructive or irritative voiding complaints, flank pain. No nausea, vomiting ,diarrhea, chest pain, or altered taste sensation of mouth. Past Medical History: Diagnosis Date Anticoagulation management [...] mri compatible patecmaker insertion [facility] KNEE ARTHROSCOPY/ARTHROPLASTY 09/2010 dr salcedo LIGATE/CUT OVIDUCT(S) 1963 OTHER 12/27 RCA drug eluting stent REPLACEMENT AORTIC VALVE, BYPASS WITH PROSTHETIC VALVE 04/27 [place] [facility] AV[facility] TOTAL ABD HYSTERECTOMY W/WO REMOVAL OF TUBE(S) 11/24 JADE/BSO Current Outpatient Medications Medication Sig Dispense Refill BENADRYL 25 MG PO TABS 1 TABLET EVERY 4 TO 6 HOURS NEEDED MAG-OXIDE 400 MG PO TABS one tablet twice a day (Patient taking differently: Take 1 Tablet by mouthin the morning.) 60 Tab 5 GRX ANALGESIC BALM EX OINT Apply topically to affected area. Azelastine HCl 0.15 % Nasal Solution Administer into nostril 1 [place] in the morning AND 1 [place] before bedtime. 30 mL 0 Fexofenadine HCl 180 MG Oral Tablet (Lizzette) Take by mouth 1 Tablet daily as needed for Allergies.90 Tablet 0 Ipratropium [place] 0.03 % Nasal Solution Administer into each nostril 2 Sprays 2 times a day as needed for Rhinitis. 30 mL 5 Warfarin Sodium 2.5 MG Oral Tablet Up to one tablet daily as directed by the [facility] 100 Tablet 3 Metoprolol Succinate ER 100 MG Oral Tablet Extended Release 24 Hour (toPROL XL) Take 1.5 Tablets (150 mg) by mouth in the morning and 1.5 Tablets (150 mg) before bedtime. (Patient taking differently:Take 1 Tablet by mouth in the morning and 1 Tablet before bedtime.) 270 Tablet 3 oxygen IN GAS Use as directed. 2L at bedtime Spironolactone 25 MG Oral Tablet (Aldactone) Take 0.5 Tablets by mouth in the morning. 45 Tablet 3 Clopidogrel Bisulfate 75 MG Oral Tablet (pLAVix) Take 1 Tablet by mouth in the morning. Hydroxyurea 500 [...] pain continues, call 911. 25 Tablet 11 Probiotic Acidophilus Oral Capsule Take by mouth daily. Isosorbide Mononitrate ER 60 MG Oral Tablet Extended Release 24 Hour (Imdur) Take 1 Tablet by mouthin the morning. Magnesium Hydroxide 400 MG/5ML Oral Suspension (Milk of Magnesia) Take by mouth daily as needed forConstipation. Famotidine 20 MG Oral Tablet (Pepcid) Take 1 Tablet by mouth in the morning. 30 Tablet 11 Torsemide 20 MG Oral Tablet (Demadex) Take 1 Tablet by mouth in the morning. 30 Tablet 3 Losartan Potassium 25 MG Oral Tablet (Cozaar) Take 0.5 Tablets by mouth in the morning. No current facility-administered medications for this visit. [...] Denies any shortness of breath. Zocor [Simvastatin] S/H- stays alone. Retired. No Smoking,No alcohol use. No ivdu. No OTC/Herbal meds. F/H - No other family history of renal failure, hemodialysis or kidney stones. Daughter - kidney stones ROS - All other review of systems were negative other than those documented in the interval history PHYSICAL EXAMINATION: Filed Vitals: 06/23/23 1316 BP: 115/7 Pulse: 75 Temp: 35.6 C (96 F) Weight: 76.7 kg (169 lb) General: No acute distress, on 2 liter NC Eye: Anicteric sclera HENT: Normocephalic, atraumatic , oral mucosa moist Neck: Supple Respiratory: Lungs are clear to auscultation Cardiovascular: Paced rhythm + Extremities: + edema b/l Gastrointestinal: Soft, Non-tender Musculoskeletal: Normal range of motion Integumentary: Warm, Dry, [place] Neurologic: Alert & Oriented Psychiatric: Cooperative, Non-suicidal LABS: Reviewed Recent Labs Units 06/22/23 0929 06/15/23 1147 06/13/23 0926 05/15/23 1559 SODIUM - [facility] mmol/L 145 143 142 142 POTASSIUM - [facility] mmol/L 4.0 4.2 4.3 5.0 CHLORIDE - [facility] mmol/L 99 96* 96* 100 CO2 - [facility] mmol/L 32 33* 34* 31 BUN - [facility] mg/dL 46* 45* 46* 25* CREATININE - [facility] mg/dL 2.0* 1.9* 2.0* 1.2* Recent Labs Units 06/13/23 0926 05/15/23 1559 05/11/23 1243 WBC AUTO - [facility] K/uL 7.14 7.64 6.97 HGB - [facility] g/dL 11.4* 11.3* 11.0* PLATELET AUTO - [facility] K/uL 297 323 318 Recent Labs Units 06/22/23 0929 06/15/23 1147 06/13/23 0926 05/15/23 1559 07/10/23 1338 03/22/23 0904 11/04/22 0945 CALCIUM - [facility] mg/dL 10.0 10.2 10.2 10.3* 9.7 < > 9.7 PHOSPHORUS - [facility] mg/dL -- -- -- -- 2.8 -- 3.0 25-HYDROXY VITAMIN D - [facility] ng/mL -- -- -- -- 69 -- 70 < > = values in this interval not displayed. No results for input(s): HGBA1C in the last 82664 hours. No results for input(s): MICROALBUMIN, PROCRRATIO in the last 45019 hours. PERTINENT IMAGING INFO: I independently visualized last renal ultrasound from 06/20/2023 which showed: No hydronephrosis, 0.6 cm and left renal calculus RIGHT KIDNEY: 9.8 cmx4.8 cmx4.7 cm. Normal size and echogenicity. No hydronephrosis. Simple cyst measuring 1.3 x 1.4 x 1.4 cm. LEFT KIDNEY: 8.8 cmx4.3 cmx5.3 cm. Normal size and echogenicity. No hydronephrosis. 0.6 cm shadowing left renal calculus in the inferior pole. BLADDER: Partially filled. AORTA: Visualized portions normal in caliber. IMPRESSION IMPRESSION 1. 1.4 cm right renal cyst. 2. 0.6 cm left renal calculus. ASSESSMENT AND PLAN # RADHA on CKD Likely in the setting of multiple RADHA with non recovery of kidney function. Possible cardiorenal syndrome, ? Interstitial nephritis, has had multiple urinary tract infections Remains volume overloaded on torsemide Currently off RAAS blockade. Will eventually require once kidney function stabilizes Not a candidate for SGLT2 given recurrent urinary tract infections Kidney ultrasound reviewed as above Hold Protonix, switch to Pepcid Avoid milk of magnesium ACR 167 # heart failure with reduced ejection fraction/ coronary artery disease Follow-up in Cardiology. Currently off losartan and Aldactone. Will eventually need to restart oncekidney function stabilizes # Volume Overload - Weight trend reviewed. Currently on torsemide 20 mg every alternate day. Volumeup on exam, recommend using torsemide daily # Renal Osteodystrophy -vitamin-D level 16 9, hold any vitamin-D or calcium supplementation, calcium on the higher end # Anemia - hemoglobin 11.4, monitor BP Readings from Last 3 Encounters: 06/23/23 115/7 06/15/23 116/70 05/25/23 136/74 Wt Readings from Last 3 Encounters: 06/23/23 76.7 kg (169 lb) 06/15/23 77.1 kg (170 lb) 05/25/23 80.3 kg (177 lb 1.6 oz) Trend reviewed as above Recommend the following actions to slow down the progression of CKD - Avoid NSAIDs, intravenous radiocontrast agents, phosphate- and magnesium- containing bowel preparations and laxatives, aminoglycoside antibiotics, and other nephrotoxins. - May use Tylenol and heat/ice packs prn pain - Continue statin po qhs Went over patient's current clinical condition. Patient is at extremely high risk for kidney function decline given underlying comorbidities. If kidney function continues to decline she might requirerenal replacement therapy however with her advanced age, underlying comorbidities she is deemed an extremely high-risk candidate. Risks outweigh benefits. Will recheck labs in 2 weeks Further recommendations based on labs We appreciate the opportunity of participating in Ms. Cruz's care. Follow-up: Return in about 2 months (around 08/23/2023). | Check-out note: HOLD AMBER/ VIT D START TORSEMIDE 20 GM DAILY STOP PROTONIX, START PEPCID LABS IN 14 DAYS Juno Christianson MD Clinical Associate Nephrology, [address] [address] documented in this encounter Plan of Treatment Upcoming Encounters Date Type Specialty Care Team Description 06/30/2023 Office Visit [facility] [address] [facility] [phone] 06/30/2023 Office Visit Otolaryngology Keely Tanner PA-C [address] [place] [address] 07/07/2023 Cardiac Studies Cardiology [place] [facility] [address] [place] [address] 07/12/2023 Anticoagulation Pharmacy Pharmacist1, [facility] [address] [place], [place] [phone] 07/17/2023 Office Visit Cardiology Srini Doyle, DO [address] [place] [phone] 09/13/2023 Office Visit Cardiology Srini Doyle, DO [address] [place] [address] 11/20/2023 Office Visit Family Medicine Yaya Frederick MD [address], [place] [phone] 12/01/2023 Office Visit Hematology Oncology Agustín Sullivan MD [address] [place] [address] 12/04/2023 Office Visit Cardiology Bucky Calvo PA-C [address] [place] [phone] Scheduled Orders Name Type Priority Associated Diagnoses Orde r Schedule BASIC METABOLIC PANEL Lab Routine Kidney disease, chronic, stage IV (GFR 15-29 ml/min) ([facility]) Expected: 06/30/2023, Expires: 08/23/2023 Health Maintenance Due Date Last Done Comments Zoster Vaccines (1 of 2) 1954 Influenza Vaccine (FLU shot) (#1) 2023 07/04/2022, 07/19/2021, 07/19/2021, Additional history exists Depression Screening, Annual for Pts 12 and Over 02/09/2024 02/08/2023 CKD PHOS USE SMARTSET 89446 05/01/2024 07/, 11/04/2022, 02/14/2019 CKD HGB USE SMARTSET [id number] 06/13/202406/13, 06/13/2023, 05/15/2023, Additional history exists Albumin/Creatinine Ratio 06/15/2024 023, 05/01/2023, 07/04/2022, Additional history exists DXA Scan 11/09/2024 11/09/2022, 01/21, 11/03/2015, Additional history exists DTaP,Tdap,and Td Vaccines (3 - Td or Tdap) 06/04/2029 06/04/2019, 01/28/2019, 05/26/2008 Pneumococcal Vaccine: 65+ Years Completed 05/24/2016, 11/14/2001 COVID-19 Vaccine Completed 09/29/2022, , 01/05/2021, Additional history exists VITAMIN D LEVEL ONCE IN A LIFETIME-USE SMARTSET# [id number] Completed 05/01/2023, 11/04/2022, 02/14/2019, Additional history exists GARDASIL-HPV IMMUNIZATION SERIES Aged [...] Primary Chronic kidney disease, Stage IV (severe) RADHA (acute kidney injury) (HCC) Acute kidney failure, unspecified Bilateral leg edema Edema Restless legs syndrome Restless legs syndrome (RLS) Essential thrombocythemia (HCC) Essential thrombocythemia S/P aortic valve replacement Heart valve replaced by other means jail current use of anticoagulant therapy Cardiac pacemaker in situ Chronic hypoxemic respiratory failure (HCC) Chronic respiratory failure Hypervolemia, unspecified hypervolemia type documented in this encounter Additional Health Concerns Infection Onset Date Last Indicated Resolved Time Varicella zoster 08/01/2022 08/01/2022 ESBL 01/26/2023 05/31/2023 documented as of this encounter Care Teams Crate Builder Relationship Specialty Start Date End Date Yaya Frederick MD [address] [place] [phone] PCP - General Family Medicine 05/04/21 documented as of this encounter"
--- OUTSIDE RECORDS SUMMARY | 2023-09-12 22:29 | External Medical Summary | Summary of Care ---
Author Name Unknown Organization [facility] Address [address] [facility] [place] [address] Phone [phone] Care Team Providers Care Special Education Classroom Aide Name Role Phone Yaya Frederick MD Primary Care Provider [phone] Reason for Visit * Reason Onset Date Comments Med Request 07/03/2023 Encounter Details Date Type Department Care Team Description 07/03/[address] [phone] Yaya Frederick MD [address] [place] [phone] Med Request Allergies Active Allergy Reactions [...] SolutionIndications:P ost-nasal discharge Administer into nostril 1 [place] in the morning AND 1 [place] before bedtime. 30 mL 0 11/30/2021 Active Fexofenadine HCl 180 MG Oral Tablet (Lizzette) Take by mouth 1 Tablet daily as needed for Allergies. 90 Tablet 0 01/21/2022 Active Ipratropium [place] 0.03 % Nasal Solution Administer into each [...] Additional Information Patient not taking.Reported on 06/30/2023 Clopidogrel Bisulfate 75 MG Oral Tablet (pLAVix) Take 1 Tablet by mouth in the morning. 0 05/09/2023 Active Losartan Potassium 25 MG Oral Tablet [...] Tablet (Crestor)Indications: NSTEMI (non-ST elevated myocardial infarction) ([facility]) Take 1 Tablet by mouth in the morning. 90 Tablet 3 05/18/2023 Active Nitroglycerin 0.4 MG Sublingual Tablet Sublingual (Nitrostat)Indication s:NSTEMI (non-ST elevated myocardial infarction) ([facility]) Place 1 Tablet under the tongue as needed for Pain, Chest. May repeat 3 times. If chest pain continues, call 911. 25 Tablet 11 05/18/2023 Active Probiotic Acidophilus Oral Capsule Take by mouth daily. 0 Active Isosorbide Mononitrate ER 60 MG Oral Tablet Extended Release 24 Hour (Imdur) Take 1 Tablet by mouth in the morning. 0 06/10/2023 Active Torsemide 20 MG Oral Tablet (Demadex) Take 1 Tablet by mouth in the morning. 30 Tablet 3 06/23/2023 Active Famotidine 20 MG Oral Tablet (Pepcid) Take 1 Tablet by mouth in the morning. 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 # [id number] Pipeline Controller: Wilda Serrano MD [phone] Type 2 diabetes mellitus wit h hemoglobin A1c goal of less than 7.0% 11/03/2006 08/15/2007 Overview: ICD-10 update of inactive term PURE HYPERCHOLESTEROLEM 11/03/2006 10/01/20 09 Overview: Per Lipid Taxonomy. 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 Thank you, Huong Bowman Shared Services Manager I [facility] ([facility]) (Formerly Telepharmacy) 07/03/2023,8:38 AM documented in this encounter Plan of Treatment Upcoming Encounters Date Type Specialty Care Team Description 07/07/2023 Cardiac Studies Cardiology [place] [facility] [address] [place] [address] 07/12/2023 Anticoagulation Pharmacy Pharmacist1, [facility] [address] [place], [place] [phone] 07/17/2023 Office Visit Cardiology Srini Doyle, [address] [place] [address] 08/01/2023 Office Visit Family Medicine Oneida Briggs PA-C [address] [place], [place] [phone] 09/13/2023 Office Visit Cardiology Srini Doyle, [address] [place] [address] 10/06/2023 Office Visit Otolaryngology Keely Tanner PA-C [address] [place] [address] 11/20/2023 Office Visit Family Medicine Yaya Frederick MD [address] [place] [phone] 12/01/2023 Office Visit Hematology Oncology Agustín Sullivan MD [address] [place] [address], [place] [address] 12/04/2023 Office Visit Cardiology Bucky Calvo PA-C [address] [place] [address] Health Maintenance Due Date Last Done Comments Zoster Vaccines (1 of 2) 1954 Depression Screening 02/09/2024 02/08/2023 CKD PHOS USE SMARTSET [id number] 05/01/202404/22, 11/04/2022, 02/14/2019 CKD HGB USE SMARTSET [id number] 06/13/202406/13, 06/13/2023, 05/15/2023, Additional history exists Albumin/Creatinine Ratio 06/15/2024 023, 05/01/2023, 07/04/2022, Additional history exists DXA Scan 11/09/2024 11/09/2022, 01/21, 11/03/2015, Additional history exists DTaP,Tdap,and Td Vaccines (3 - Td or Tdap) 06/04/2029 06/04/2019, 01/28/2019, 05/26/2008 Pneumococcal Vaccine: 65+ Years Completed 05/24/2016, 11/14/2001 COVID-19 Vaccine Completed 09/29/2022, , 01/05/2021, Additional history exists VITAMIN D LEVEL ONCE IN A LIFETIME-USE SMARTSET# [id number] Completed 05/01/2023, 11/04/2022, 02/14/2019, Additional history exists [...] documented as of this encounter Care Teams Special Education Classroom Aide Relationship Specialty Start Date End Date Yaya Frederick MD [address] [place] [address], [place] [address] PCP - General Family Medicine 05/04/21 documented as of this encounter
--- OUTSIDE RECORDS SUMMARY | 2023-09-12 22:29 | External Medical Summary | Summary of Care ---
Author Name Unknown Organization [facility] Address [address] [facility] [place] [address] Phone [phone] Care Team Providers Care Copper Flotation Operator Name Role Phone Yaya Frederick MD Primary Care Provider [phone] Reason for Visit * Reason Onset Date Comments Follow Up Pt is here for a 2 week follow up. About a month she was in the hospital for TIA Medication Administration 06/30/2023 Flu an d/or Pneumo Inj Encounter Details Date Type Department Care Team Description 06/30/2023 Office Visit [facility] [address] [place] [address] Oneida Briggs PA-C [address] [place] [id number] RADHA (acute kidney injury) ([facility])*; Need for prophylactic vaccination and inoculation against influenza; HFrEF (heart failure with reduced ejection fraction) ([facility]) Allergies Active Allergy Reactions Severity Noted [...] as of this encounter (statuses as of 06/30/2023) Medications Medication Sig Dispensed Refills Start Date End Date Status BENADRYL 25 MG PO TABS 1 TABLET EVERY 4 TO 6 HOURS NEEDED 0 Active MAG-OXIDE 400 MG PO TABSIndications:Chr onic ischemic heart disease one tablet twice a day 60 Tab 5 1 Active Additional Information Patient taking differently: 400 mgOralDaily(AM), Reported on 11/21/2022 GRX ANALGESIC BALM EX OINT Apply topically to affected area. 0 3 Active Azelastine HCl 0.15 % Nasal SolutionIndications :Post-nasal discharge Administer into nostril 1 [place] in the morning AND 1 [place] before bedtime. 30 mL 0 2 Active Fexofenadine HCl 180 MG Oral Tablet (Lizzette) Take by mouth 1 Tablet daily as needed for Allergies. 90 Tablet 0 2 Active Ipratropium [place] 0.03 % Nasal Solution Administer into each nostril 2 Sprays 2 times a day as needed for Rhinitis. 30 mL 5 2 Active Warfarin Sodium 2.5 MG Oral TabletIndications:C hronic ischemic heart disease Up to one tablet daily as directed by the [facility] clinic 100 Tablet 3 2 Active Metoprolol [...] mouth in the morning. 45 Tablet 3 3 Active Additional Information Patient not taking.Reported on 06/30/2023 Clopidogrel Bisulfate 75 MG Oral Tablet (pLAVix) Take 1 Tablet by mouth in the morning. 0 3 Active Losartan Potassium 25 MG Oral Tablet [...] call 911. 25 Tablet 11 3 Active Probiotic Acidophilus Oral Capsule Take by mouth daily. 0 Active Isosorbide Mononitrate ER 60 MG Oral Tablet Extended Release 24 Hour (Imdur) Take 1 Tablet by mouth in the morning. 0 3 Active Torsemide 20 MG Oral Tablet (Demadex) Take 1 Tablet by mouth in the morning. 30 Tablet 3 3 Active Famotidine 20 MG Oral Tablet (Pepcid) Take 1 Tablet by mouth in the morning. 30 Tablet 11 3 Active Famotidine 20 MG Oral Tablet (Pepcid) Take 1 Tablet by mouth in the morning. 30 Tablet 11 3 06/30/20 23 Discontinued documented as of this encounter (statuses as of 06/30/2023) Active Problems Problem Noted Date HFrEF (heart [...] in situ 04/17/2014 Sinus node dysfunction 04/17/2014 [facility] current use of anticoagulant t herapy 11/12/2010 [...] as of this encounter (statuses as of 06/30/2023) Resolved Problems Problem Noted Date Resolved Date [...] Stent Restenosis in Drug-Eluting Stents Project # [id number] Client Support Professional: Wilda Serrano MD [phone] GENOMICS CARDIO RESEARCH OTHER*[id number] 200611/29/2016 Overview: Renamed Per Clinical Trials Billing Project. 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 # [id number] Client Support Professional: Wilda Serrano MD [phone] Type 2 diabetes mellitus wit h hemoglobin [...] as of this encounter (statuses as of 06/30/2023) Immunizations Name Administration Dates Next Due COVID-19 mRNA, LNP-s, No Pre serve, 2-Dose Series (CogniSens) 09/13/2021,01/05/2021,12/15/2020 Covid-19, Mrna, Lnp-s, Pf, B ivalent, [...] Sign Reading Time Taken Comments Blood Pressure 108/64 06/30/2023 12:25 PM EDT Pulse 75 06/30/2023 12:25 PM EDT Temperature 36.8 C (98.2 F) 06/30/2023 12:25 PM E DT Respiratory Rate 16 06/30/2023 12:25 PM EDT Oxygen Saturation 98% 06/30/2023 12:25 PM EDT Inhaled Oxygen Concentration - - Weight 80 kg (176 lb 6.4 oz) 06/30/2023 12:25 PM EDT Height - - Body Mass Index 35.61 02/24/2023 10:21 AM EDT documented in this encounter Progress Notes * Oneida Briggs PA-C - 06/30/2023 12:36 PM EDT Subjective: Shannon Cruz is a 88 year old female. Chief Complaint Patient presents with Follow Up Pt is here for a 2 week follow up. About a month she was in the hospital for TIA Medication Administration Flu and/or Pneumo Inj HPI: Patient presents today with her son for follow up for RADHA on CKD and CHF exacerbation. Patient was hopsitalized at [facility] from 06/05-06/10 for NSTEMI and CHF exacerbation. She was also treated with ertapenem for ESBL UTI, which has resolved. During that hospitalization, her Cr increased to 2.16. Her spironolactone and losartan continue to be held. She is currently on torsemide 20mg daily. She weighs herself daily on her home scales and her weight has consistently been 170-171 over the 2weeks. She has significantly decreased her sodium intake. She has also increased her water intake (still keeping intake below 1500cc/day). She reports a mild increase in her lower extremity edema. She Denies any increasing shortness of breath or orthopnea. She was evaluated by nephrology. Repeat BMP recommended next week. Protonix was switched to pepcid.Patient to avoid milk of mag. 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.5 [facility] current use of anticoagulant therapy Z79.01 Cardiac [...] actinic keratosis Z87.2 Chronic hypoxemic respiratory failure ([facility]) J96.11 RADHA (acute kidney injury) ([facility]) N17.9 HFrEF (heart failure with reduced ejection fraction) ([facility]) I50.20 Current Outpatient Medications Medication Sig Dispense Refill MAG-OXIDE 400 MG PO TABS one tablet twice a day (Patient taking differently: Take 1 Tablet by mouthin the morning.) 60 Tab 5 Azelastine HCl 0.15 % Nasal Solution Administer into nostril 1 [place] in the morning AND 1 [place] before bedtime. 30 mL 0 Fexofenadine HCl 180 MG Oral Tablet (Lizzette) Take by mouth 1 Tablet daily as needed for Allergies.90 Tablet 0 Ipratropium [place] 0.03 % Nasal Solution Administer into each nostril 2 Sprays 2 times a day as needed for Rhinitis. 30 mL 5 Warfarin Sodium 2.5 MG Oral Tablet Up to one tablet daily as directed by the [facility] 100 Tablet 3 Metoprolol Succinate ER 100 MG Oral Tablet Extended Release 24 Hour (toPROL XL) Take 1.5 Tablets (150 mg) by mouth in the morning and 1.5 Tablets (150 mg) before bedtime. (Patient taking differently:Take 1 Tablet by mouth in the morning and 1 Tablet before bedtime.) 270 Tablet 3 oxygen IN GAS Use as directed. 2L at bedtime Clopidogrel Bisulfate 75 MG Oral Tablet (pLAVix) [...] Take 1 Tablet by mouthin the morning. Torsemide 20 MG Oral Tablet (Demadex) Take 1 Tablet by mouth in the morning. 30 Tablet 3 Famotidine 20 MG Oral Tablet (Pepcid) Take 1 Tablet by mouth in the morning. 30 Tablet 11 BENADRYL 25 MG PO TABS 1 TABLET EVERY 4 TO 6 HOURS NEEDED GRX ANALGESIC BALM EX OINT Apply topically to affected area. Spironolactone 25 MG Oral Tablet (Aldactone) Take 0.5 Tablets by mouth in the morning. (Patient nottaking: Reported on 06/30/2023) 45 Tablet 3 Losartan Potassium 25 MG Oral Tablet (Cozaar) Take 0.5 Tablets by mouth in the morning. (Patient not taking: Reported on 06/30/2023) Nitroglycerin 0.4 MG Sublingual Tablet Sublingual (Nitrostat) Place 1 Tablet under the tongue as needed for Pain, Chest. May repeat 3 times. If chest pain continues, call 911. 25 Tablet 11 No current facility-administered medications [...] shortness of breath. Zocor [Simvastatin] Objective: BP 108/64 | Pulse 75 | Temp 36.8 C (98.2 F) | Resp 16 | Wt 80 kg (176 lb 6.4 oz) | SpO2 98% | BMI 35.61 kg/m | BSA 1.83 m General: alert, healthy, and no distress Heart: irregularly irregular, rate controled, no murmur, and no gallops Lungs: chest symmetric with normal AP diameter, no chest deformities noted, no chest wall tenderness, lungs clear to auscultation Abdomen: abdomen soft, non-tender, normal bowel sounds, and no masses or organomegaly Extremities: Mild b/l LE edema, nonpitting. less than 2 second capillary refill, no joint deformities, effusion, or inflammation Neuro Exam: alert & oriented x 3 with fluent speech, no focal motor/sensory deficits ASSESSMENT: RADHA (acute kidney injury) (HCC) (Primary) Need for prophylactic vaccination and inoculation against influenza - INFLUENZA VACC, QUAD, HIGH DOSE (FLUZONE HD) Chronic heart failure with preserved ejection fraction (HFpEF) (HCC) Plan: For RADHA on CKD: Nephrology recommended repeating labs next week. Patient has follow-up with nephrology in 2 months. Nephrology switched Protonix to low dose pepcid. Continuing to hold losartan and spironolactone. CHF without acute exacerbation: patient's weights have remained stable around 170-171 on home scale. Patient instructed to inform us if weight >173 on home scale. She verbalizes understanding. Mild LE edema today. Lungs clear. No increased dsypena. Continue torsemide 20mg daily. Continue to limit sodium intake. Fluid restrict < 1500cc/ day. HFrEF, CAD, chronic atrial fibrillation: Patient has follow-up appointment with Cardiology on July 17. patient on Warfarin Thrombocytopenia: hydroxyurea Follow-up: Return in about 4 weeks (around 07/28/2023). | Check-out note: Labs soon I spent a total of 40-54 minutes (exact time 42 mins) on the date of service in preparation, delivery, and documentation of the care provided to Shannon Cruz excluding any time spent in the performance of separately billed services. Oneida Briggs PA-C * Lidia Marks LPN - 06/30/2023 12:28 PM EDT Pt wants flu shot documented in this encounter Nursing Notes * Peyton Rivas LPN - 06/30/2023 1:08 PM EDT PRE - ADMINISTRATION DOCUMENTATION Are you experiencing any cold symptoms or fever? No Have you had Guillain-[place] Syndrome (an illness that causes paralysis) within the last 6 weeks? No Have you had the flu shot in the past? YES Have you ever had a reaction to the flu shot? No Lidia Marks LPN, 06/30/2023 12:28 PM Immunization Administration Documentation Time Out Procedure Performed: Yes Patient Identified (Ask Name/Date of ): Yes Does the patient have a fever greater than 101 degrees today? No Patient allergic to latex? No VFC Stock: No Immunization(s) verified: Yes, Immunization Name: Flu, VIS Sheet(s) given: Yes Injection(s) verified: Yes, Injection Name: flu Verified Side and Site: Yes Verified Shot(s) with Parent(s)/Patient: Yes * Lidia Marks LPN - 06/30/2023 12:22 PM EDT The patient has been properly identified by confirmation of name and date of . Chief Complaint Patient presents with Follow Up Pt is here for a 2 week follow up. About a month she was in the hospital for TIA documented in this encounter Plan of Treatment Upcoming Encounters Date Type Specialty Care Team Description 06/30/2023 Office Visit Otolaryngology Keely Tanner PA-C [address] [place] [id number] Arrived 07/07/2023 Cardiac Studies Cardiology [facility] [address] [place] [address] 07/12/2023 Anticoagulation Pharmacy Pharmacist1, [facility] [address] [place], [place] [phone] 07/17/2023 Office Visit Cardiology Srini Doyle DO [address] [place] [address] 08/01/2023 Office Visit Family Medicine Oneida Briggs PA-C [address] [place] [address] 09/13/2023 Office Visit Cardiology Srini Doyle DO [address] [place] [address] 11/20/2023 Office Visit Family Medicine Yaya Frederick MD [address] [place] [address] 12/01/2023 Office Visit Hematology Oncology Agustín Sullivan MD [address] [place], [place] [address] [address] 12/04/2023 Office Visit Cardiology Bucky Calvo PA-C [address] [place] [address] Health Maintenance Due Date Last Done Comments Zoster Vaccines (1 of 2) 1954 Depression Screening 02/09/2024 02/08/2023 CKD PHOS USE SMARTSET 69073 05/01/202404/22, 11/04/2022, 02/14/2019 CKD HGB USE SMARTSET 20709 06/13/202406/13, 06/13/2023, 05/15/2023, Additional history exists Albumin/Creatinine Ratio 06/15/2024 023, 05/01/2023, 07/04/2022, Additional history exists DXA Scan 11/09/2024 11/09/2022, 01/21, 11/03/2015, Additional history exists DTaP,Tdap,and Td Vaccines (3 - Td or Tdap) 06/04/2029 06/04/2019, 01/28/2019, 05/26/2008 Pneumococcal Vaccine: 65+ Years Completed 05/24/2016, 11/14/2001 COVID-19 Vaccine Completed 09/29/2022, , 01/05/2021, Additional history exists VITAMIN D LEVEL ONCE IN A LIFETIME-USE SMARTSET# [id number] Completed 05/01/2023, 11/04/2022, 02/14/2019, Additional history exists [...] injury) (HCC)- Primary Acute kidney failure, unspecified Need for prophylactic vaccination and inoculation against influenza HFrEF (heart failure with reduced ejection fraction) ([facility]) documented in this encounter Additional Health Concerns Infection Onset Date Last Indicated Resolved Time Varicella zoster 08/01/2022 08/01/2022 ESBL 01/26/2023 05/31/2023 documented as of this encounter Care Teams Copper Flotation Operator Relationship Specialty Start Date End Date Yaya Frederick MD [address] [place] [phone] PCP - General Family Medicine 05/04/21 documented as of this encounter"
--- OUTSIDE RECORDS SUMMARY | 2023-09-12 22:29 | External Medical Summary | Summary of Care ---
Author Name Unknown Organization [facility] Address [address] [facility] [place] [address] Phone [phone] Care Team Providers Care Professor Of English Name Role Phone Yaya Frederick MD Primary Care Provider [phone] Reason for Visit * Reason Comments Dosage Adjustment Via Phone (anticoag Cl inic) Status Check Encounter Details Date Type Department Care Team Description 06/23/2023 Anticoagulation Pharmacy [address] [address] Pharmacist1, [facility] [address] [address] S/P aortic valve replacement* Allergies Active Allergy [...] SolutionIndications:P ost-nasal discharge Administer into nostril 1 [place] in the morning AND 1 [place] before bedtime. 30 mL 0 11/30/2021 Active Fexofenadine HCl 180 MG Oral Tablet (Lizzette) Take by mouth 1 Tablet daily as needed for Allergies. 90 Tablet 0 01/21/2022 Active Ipratropium [place] 0.03 % Nasal Solution Administer into each [...] the morning. 45 Tablet 3 04/10/2023 Active Clopidogrel Bisulfate 75 MG Oral Tablet [...] mouth in the morning. 0 06/10/2023 Active Famotidine 20 MG Oral Tablet (Pepcid) Take 1 Tablet by mouth in the morning. 30 Tablet 11 06/23/2023 Active Torsemide 20 MG Oral Tablet (Demadex) Take 1 Tablet by mouth in the morning. 30 Tablet 3 06/23/2023 Active documented as of this encounter (statuses [...] in situ 04/17/2014 Sinus node dysfunction 04/17/2014 [facility] current use of anticoagulant t herapy 11/12/2010 [...] Stent Restenosis in Drug-Eluting Stents Project # [id number] Automotive Leasing Sales Representative: Wilda Serrano MD [phone] GENOMICS CARDIO RESEARCH OTHER*[id number] 200611/29/2016 Overview: Renamed Per Clinical Trials Billing Project. 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 # [id number] Automotive Leasing Sales Representative: Wilda Serrano MD [phone] Type 2 diabetes mellitus wit h hemoglobin A1c goal of less than 7.0% 11/03/2006 08/15/2007 Overview: ICD-10 update of inactive term PURE HYPERCHOLESTEROLEM 11/03/2006 10/01/20 09 Overview: Per Lipid Taxonomy. 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 0 05/05/2006 01/23/2009 Overview: ICD-10 update of inactive term Anticoagulation management encounter 05/05/2006 10/03/2019 Unspecified viral infection, in conditions classified elsewhere and of unspecified site 06/08/2005 09/25/2007 Menopause 12/19/2001 12/27/2017 FEM STRESS INCONTINENCE 05/10/2001 02/12/20 02 documented as of this encounter (statuses as of 06/23/2023) Immunizations Name Administration Dates Next Due COVID-19 mRNA, LNP-s, No Pre serve, 2-Dose Series (Cloupia) 09/13/2021,01/05/2021,12/15/2020 Covid-19, Mrna, Lnp-s, Pf, B ivalent, [...] as of this encounter Progress Notes * Wilda Plata RPh - 06/23/2023 5:01 PM EDT Received form from PCP at this time for [facility] about obtaining patient's PCP signature for reimbursement for services. Confirmed that last INR in their system (when signature was needed for reimbursement) was in system and addressed (noted) and forms were re-sent and then FIMs into Clinic. Patient is no longer using [facility], and is already scheduled for inperson FS appt in future. Will continue with follow up as previously planned. Wilda Plata, PharmD, [facility] Clinical Pharmacist 06/23/2023, 5:02 PM documented in this encounter Plan of Treatment Upcoming Encounters Date Type Specialty Care Team Description 06/30/2023 Office Visit Family Medicine Srini Draper MD [address] [place], [place] [phone] [phone] 06/30/2023 Office Visit Otolaryngology Keely Tanner PA-C [address] [place] [address] 07/07/2023 Cardiac Studies Cardiology [facility] [address] [place] [address] 07/12/2023 Anticoagulation Pharmacy Pharmacist1, [facility] [address] [place], [place] [phone] 07/17/2023 Office Visit Cardiology Srini Doyle, DO [address] [place] [address] 09/13/2023 Office Visit Cardiology Srini Doyle, DO [address] [place] [address] 11/20/2023 Office Visit Family Medicine Yaya Frederick MD [address] [place], [place] [phone] 12/01/2023 Office Visit Hematology Oncology Agustín Sullivan MD [address] [place] [address] 12/04/2023 Office Visit Cardiology Bucky Calvo PA-C [address] [place] [address] Health Maintenance Due Date Last Done Comments Zoster Vaccines (1 of 2) 1954 Influenza Vaccine (FLU shot) (#1) 2023 07/04/2022, 07/19/2021, 07/19/2021, Additional history exists Depression Screening, Annual for Pts 12 and Over 02/09/2024 02/08/2023 CKD PHOS USE SMARTSET 48012 05/01/202404/22, 11/04/2022, 02/14/2019 CKD HGB USE SMARTSET 86837 06/13/202406/13, 06/13/2023, 05/15/2023, Additional history exists Albumin/Creatinine Ratio 06/15/2024 023, 05/01/2023, 07/04/2022, Additional history exists DXA Scan 11/09/2024 11/09/2022, 01/21, 11/03/2015, Additional history exists DTaP,Tdap,and Td Vaccines (3 - Td or Tdap) 06/04/2029 06/04/2019, 01/28/2019, 05/26/2008 Pneumococcal Vaccine: 65+ Years Completed 05/24/2016, 11/14/2001 COVID-19 Vaccine Completed 09/29/2022, , 01/05/2021, Additional history exists VITAMIN D LEVEL ONCE IN A LIFETIME-USE SMARTSET# [id number] Completed 05/01/2023, 11/04/2022, 02/14/2019, Additional history exists [...] documented as of this encounter Care Teams Professor Of English Relationship Specialty Start Date End Date Yaya Frederick MD [address] [place] [phone] PCP - General Family Medicine 05/04/21 documented as of this encounter
--- OUTSIDE RECORDS SUMMARY | 2023-09-12 22:29 | External Medical Summary | Summary of Care ---
Author Name Unknown Organization [facility] Address [address] [facility] [place] [address] Phone [phone] Care Team Providers Care Cuff Turner Machine Operator Name Role Phone Yaya Frederick MD Primary Care Provider [phone] Reason for Visit * Reason Comments Follow Up Encounter Details Date Type Department Care Team Description 06/30/2023 Office Visit Otolaryngology [address] [place] [address] Keely Tanner PA-C [address] [place] [address] Impacted cerumen of right ear* Allergies Active Allergy Reactions Severity Noted Date [...] SolutionIndications:P ost-nasal discharge Administer into nostril 1 [place] in the morning AND 1 [place] before bedtime. 30 mL 0 11/30/2021 Active Fexofenadine HCl 180 MG Oral Tablet (Lizzette) Take by mouth 1 Tablet daily as needed for Allergies. 90 Tablet 0 01/21/2022 Active Ipratropium [place] 0.03 % Nasal Solution Administer into each [...] (Crestor)Indications: NSTEMI (non-ST elevated myocardial infarction) ([facility]) Take 1 Tablet by mouth in the morning. 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/2008 prison current use of anticoagulant therapy 0 05/05/2006 [...] Pressure - - Pulse - - Temperature 36.8 C (98.2 F) 06/30/2023 1:38 PM ED T Respiratory Rate - - Oxygen Saturation - - Inhaled Oxygen Concentration - - Weight 79.8 kg (176 lb) 06/30/2023 1:38 PM EDT Height 149.9 cm (4' 11.02") 06/30/2023 1:38 PM E DT Body Mass Index 35.53 06/30/2023 1:38 PM EDT documented in this encounter Progress Notes * Keely Tanner PA-C - 06/30/2023 2:03 PM EDT 06/30/2023 Subjective: Shannon Cruz is a 88 year old female. Chief Complaint Patient presents with Follow Up Nursing Notes: Klaudia Scherer, CHITO 06/30/23 1349 Signed Patient presents today for follow up. States she is due for wax removal. No issues. HPI: Patient presents for routine return appointment for cerumen removal. She was told by audiology that she had cerumen present in her right canal. 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 Restless legs syndrome G25.81 Asymptomatic bilateral carotid artery stenosis I65.23 HTN, goal below 150/90 I10 DYSLIPIDEMIA, GOAL LDL BELOW 70 E78.5 prison current use of anticoagulant therapy Z79.01 Cardiac pacemaker in situ Z95.0 Sinus node dysfunction ([facility]) I49.5 Lumbar spinal stenosis M48.061 Essential thrombocythemia ([facility]) D47.3 Hx of nonmelanoma skin cancer Z85.828 Bilateral leg edema R60.0 Paroxysmal atrial fibrillation ([facility]) I48.0 Obstructive sleep apnea of adult G47.33 Hypertensive kidney disease with stage 3a chronic kidney disease ([facility]) I12.9, N18.31 Hx of actinic keratosis Z87.2 Chronic hypoxemic respiratory failure ([facility]) J96.11 RADHA (acute kidney injury) ([facility]) N17.9 HFrEF (heart failure with reduced ejection fraction) ([facility]) I50.20 Current Outpatient Medications Medication Sig Dispense [...] % Nasal Solution Administer into nostril 1 [place] in the morning AND 1 [place] before bedtime. 30 mL 0 Fexofenadine HCl 180 MG Oral Tablet (Lizzette) Take by mouth 1 Tablet daily as needed for Allergies.90 Tablet 0 Ipratropium [place] 0.03 % Nasal Solution Administer into each nostril 2 Sprays 2 times a day as needed for Rhinitis. 30 mL 5 Warfarin Sodium 2.5 MG Oral Tablet Up to one tablet daily as directed by the [employer] 100 Tablet 3 Metoprolol Succinate ER 100 [...] nottaking: Reported on 06/30/2023) 45 Tablet 3 Clopidogrel Bisulfate 75 MG Oral Tablet (pLAVix) Take 1 Tablet by mouth in the morning. Losartan Potassium 25 MG Oral Tablet (Cozaar) [...] Denies any shortness of breath. Zocor [Simvastatin] REVIEW OF SYSTEMS Negative for constitutional, heart, lung, liver, kidney, digestive, hematologic, neurologic, rheumatologic, or endocrine complaints except as per history of present illness and past medical history. Objective: Temp 36.8 C (98.2 F) (Tympanic) | Ht 1.499 m (4' 11.02") | Wt 79.8 kg (176 lb) | BMI 35.53 kg/m | BSA 1.82 m General: alert, healthy, no distress, well nourished and well developed Ears: Examination of the ears revealed that the auricles were normally formed with no lesions. The external auditory canals were cleaned of impacted cerumen from the right canal under microscopic with forceps. The tympanic membranes were intact and freely mobile to pneumatoscopy without perforationor significant retraction pockets. Procedure performed by myself-In order to better examine the ears the patient was brought to the microscope room where her ears were examined under the operating microscope with impacted cerumen removed from the right canal with forceps. She tolerated procedure well. ASSESSMENT: Encounter Diagnoses Name Primary? Impacted cerumen of right ear Yes PLAN: Cerumen removed from the right canal. She will return in 3-4 months Keely Tanner PA-C 06/30/2023 2:11 PM documented in this encounter Nursing Notes * Klaudia Scherer LPN - 06/30/2023 1:49 PM EDT Patient presents today for follow up. States she is due for wax removal. No issues. documented in this encounter Plan of Treatment Upcoming Encounters Date Type Specialty Care Team Description 07/07/2023 Cardiac Studies Cardiology [facility] [address] [facility] [place] [address] 07/12/2023 Anticoagulation Pharmacy Pharmacist1, [facility] [place] [address] [place] [address] 07/17/2023 Office Visit Cardiology Srini Doyle DO [address] [facility] [place] [address] 08/01/2023 Office Visit Family Medicine Oneida Briggs PA-C [address] [place] [address] 09/13/2023 Office Visit Cardiology Srini Doyle DO [address] [place] [address] 10/06/2023 Office Visit Otolaryngology Keely Tanner PA-C [address] [place] [address] 11/20/2023 Office Visit Family Medicine Yaya Frederick MD [address] [place] [address] 12/01/2023 Office Visit Hematology Oncology Agustín Sullivan MD [address] [facility] [place] [address] 12/04/2023 Office Visit Cardiology Bucky Calvo PA-C [address] [place] [address] Health Maintenance Due Date Last Done Comments Zoster Vaccines (1 of 2) 1954 Depression Screening 02/09/2024 02/08/2023 CKD PHOS USE SMARTSET 99992 05/01/202404/22, 11/04/2022, 02/14/2019 CKD HGB USE SMARTSET 46857 06/13/202406/13, 06/13/2023, 05/15/2023, Additional history exists Albumin/Creatinine Ratio 06/15/2024 023, 05/01/2023, 07/04/2022, Additional history exists DXA Scan 11/09/2024 11/09/2022, 01/21, 11/03/2015, Additional history exists DTaP,Tdap,and Td Vaccines (3 - Td or Tdap) 06/04/2029 06/04/2019, 01/28/2019, 05/26/2008 Pneumococcal Vaccine: 65+ Years Completed 05/24/2016, 11/14/2001 COVID-19 Vaccine Completed 09/29/2022, , 01/05/2021, Additional history exists VITAMIN D LEVEL ONCE IN A LIFETIME-USE SMARTSET# [id number] Completed 05/01/2023, 11/04/2022, 02/14/2019, Additional history exists [...] as of this encounter Visit Diagnoses Diagnosis Impacted cerumen of right ear- Primary Impacted cerumen documented in this encounter Additional Health Concerns Infection Onset Date Last Indicated Resolved Time Varicella zoster 08/01/2022 08/01/2022 ESBL 01/26/2023 05/31/2023 documented as of this encounter Care Teams Cuff Turner Machine Operator Relationship Specialty Start Date End Date Yaya Frederick MD [address] [place] [id number] PCP - General Family Medicine 05/04/21 documented as of this encounter
--- OUTSIDE RECORDS SUMMARY | 2023-09-12 22:29 | External Medical Summary | Summary of Care ---
Author Name Unknown Organization [facility] Address [address] [place] [address] Phone [phone] Care Team Providers Care Performance Management Consultant Name Role Phone Yaya Frederick MD Primary Care Provider [phone] Reason for Visit * Reason Comments Chronic Kidney Disease (CKD) * Evaluate & Treat - Unlimited Visits (Within 10 days (routine)) - Pending Review Specialty Diagnoses / Procedures Referred By Shellie lake Referred To Contact Nephrology Diagnoses RADHA (acute kidney injury) (HCC) Oneida Briggs PA-C [address] [place] [address] Referral ID Status Reason Start Date Expiration Date Visits Requested Visits Authorized [id number] Pending Review Specialty Services Required 06/15/[phone] Encounter Details Date Type Department Care Team Description 06/23/2023 Office Visit NephrologySkip [address] [place] [address] Juno Christianson MD [address] [place] [address] Kidney disease, chronic, stage IV (GFR 15-29 ml/min) (HCC)*; RADHA (acute kidney injury) (HCC); Bilateral leg edema; Restless legs syndrome; Essential thrombocythemia (HCC); S/P aortic valve replacement; 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 30 mL 0 11/30/19 22 Active Fexofenadine HCl 180 MG Oral Tablet (Lizzette) Take by mouth 1 Tablet daily as needed for Allergies. 90 Tablet 0 01/22/20 22 Active Ipratropium [place] 0.03 % Nasal Solution Administer into each [...] ons:NSTEMI (non-ST elevated myocardial infarction) ([facility] [...] morning. 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 # [id number] Java Software: Wilda Serrano MD [phone] Type 2 diabetes mellitus wit h hemoglobin A1c goal of less than 7.0% 11/03/2006 08/15/2007 Overview: ICD-10 update of inactive term PURE HYPERCHOLESTEROLEM 11/03/2006 10/01/20 09 Overview: Per Lipid Taxonomy. 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 I reviewed the medical records in [facility] . History was obtained from the patient. Patient was admitted to [facility], discharged on June 10 for NSTEMI and CHF exacerbation, during hospitalization was treated with Lasix drip. Losartan and Aldactone were held. Cardiac catheterization was considered but deferred given poor candidacy Was discharged on torsemide 20 mg, Imdur 60 mg, further hospital course was complicated ESBL UTI, treated with ertapenem. Patient also had a prior hospitalization in April with [place] , CVA Status of chronic issues Hyperlipidemia [...] mri compatible patecmaker insertion [facility] KNEE ARTHROSCOPY/ARTHROPLASTY 09/2010 dr salcedo LIGATE/CUT OVIDUCT(S) 1963 OTHER 12/27 RCA drug eluting stent REPLACEMENT AORTIC VALVE, BYPASS WITH PROSTHETIC VALVE 04/27 [place] Bovine AVR TOTAL ABD HYSTERECTOMY W/WO REMOVAL [...] % Nasal Solution Administer into nostril 1 [place] in the morning AND 1 [place] before bedtime. 30 mL 0 Fexofenadine HCl 180 MG Oral Tablet (Lizzette) Take by mouth 1 Tablet daily as needed for Allergies.90 Tablet 0 Ipratropium [place] 0.03 % Nasal Solution Administer into each nostril 2 Sprays 2 times a day as needed for Rhinitis. 30 mL 5 Warfarin Sodium 2.5 MG Oral Tablet Up to one tablet daily as directed by the [facility] 100 Tablet 3 Metoprolol Succinate ER [...] Normal range of motion Integumentary: Warm, Dry, [place] Neurologic: Alert & Oriented Psychiatric: Cooperative, Non-suicidal [...] results for input(s): HGBA1C in the last 67104 hours. No results for input(s): MICROALBUMIN, PROCRRATIO in the last 96984 hours. PERTINENT IMAGING INFO: I independently visualized [...] DAYS Juno Christianson MD Clinical Associate Nephrology, [address] [address] documented in this encounter Plan of Treatment Upcoming Encounters Date Type Specialty Care Team Description 06/30/2023 Office Visit Family [facility] [address] [facility] [phone] 06/30/2023 Office Visit Otolaryngology Keely Tanner PA-C [address] [place] [address] 07/07/2023 Cardiac Studies Cardiology [facility] [address] [place] [address] 07/12/2023 Anticoagulation Pharmacy Pharmacist1, [facility] [address] [place], [place] [phone] 07/17/2023 Office Visit Cardiology Srini Doyle, DO [address] [place] [address] 09/13/2023 Office Visit Cardiology Srini Doyle, DO [address] [place] [address] 11/20/2023 Office Visit Family Medicine Yaya Frederick MD [address] [place], [place] [phone] 12/01/2023 Office Visit Hematology Oncology Agustín Sullivan MD [address] [place] [address] 12/04/2023 Office Visit Cardiology Bucky Calvo PA-C [address] [place] [address] Scheduled Orders Name Type Priority Associated Diagnoses Orde r Schedule BASIC METABOLIC PANEL Lab Routine Kidney disease, chronic, stage IV (GFR 15-29 ml/min) ([facility]) Expected: 06/30/2023, Expires: 08/23/2023 Health Maintenance Due Date Last Done Comments Zoster Vaccines (1 of 2) 1954 Influenza Vaccine (FLU shot) (#1) 2023 07/04/2022, 07/19/2021, 07/19/2021, Additional history exists Depression Screening, Annual for Pts 12 and Over 02/09/2024 02/08/2023 CKD PHOS USE SMARTSET 07240 05/01/2024 07/, 11/04/2022, 02/14/2019 CKD HGB USE SMARTSET 99601 06/13/202406/13, 06/13/2023, 05/15/2023, Additional history exists Albumin/Creatinine Ratio 06/15/2024 023, 05/01/2023, 07/04/2022, Additional history exists DXA Scan 11/09/2024 11/09/2022, 01/21, 11/03/2015, Additional history exists DTaP,Tdap,and Td Vaccines (3 - Td or Tdap) 06/04/2029 06/04/2019, 01/28/2019, 05/26/2008 Pneumococcal Vaccine: 65+ Years Completed 05/24/2016, 11/14/2001 COVID-19 Vaccine Completed 09/29/2022, , 01/05/2021, Additional history exists VITAMIN D LEVEL ONCE IN A LIFETIME-USE SMARTSET# [id number] Completed 05/01/2023, 11/04/2022, 02/14/2019, Additional history exists [...] replacement Heart valve replaced by other means skilled nursing current use of anticoagulant therapy Cardiac pacemaker in situ Chronic hypoxemic respiratory failure (HCC) Chronic respiratory failure Hypervolemia, unspecified hypervolemia type documented in this encounter Additional Health Concerns Infection Onset Date Last Indicated Resolved Time Varicella zoster 08/01/2022 08/01/2022 ESBL 01/26/2023 05/31/2023 documented as of this encounter Care Teams Performance Management Consultant Relationship Specialty Start Date End Date Yaya Frederick MD [address] [place] [address] PCP - General Family Medicine 05/04/21 documented as of this encounter"
--- OUTSIDE RECORDS SUMMARY | 2023-09-12 22:29 | External Medical Summary | Summary of Care ---
Author Name Unknown Organization [facility] Address [address] [place] [address] Phone [phone] Care Team Providers Care Merchant Banker Name Role Phone Yaya Frederick MD Primary Care Provider [phone] Reason for Visit * Reason Comments Chronic Kidney Disease (CKD) * Evaluate & Treat - Unlimited Visits (Within 10 days (routine)) - Pending Review Specialty Diagnoses / Procedures Referred By Shellie lake Referred To Contact Nephrology Diagnoses RADHA (acute kidney injury) (HCC) Oneida Briggs PA-C [address] [place] [address] Referral ID Status Reason Start Date Expiration Date Visits Requested Visits Authorized [id number] Pending Review Specialty Services Required 06/15/[phone] Encounter Details Date Type Department Care Team Description 06/23/2023 Office Visit NephrologySkip [address] [place] [address] Juno Christianson MD [address] [place] [address] Kidney disease, chronic, stage IV (GFR 15-29 ml/min) (HCC)*; RADHA (acute kidney injury) (HCC); Bilateral leg edema; Restless legs syndrome; Essential thrombocythemia (HCC); S/P aortic valve replacement; 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 30 mL 0 11/30/19 22 Active Fexofenadine HCl 180 MG Oral Tablet (Lizzette) Take by mouth 1 Tablet daily as needed for Allergies. 90 Tablet 0 01/22/20 22 Active Ipratropium [place] 0.03 % Nasal Solution Administer into each [...] Sublingual (Nitrostat)Indicati ons:NSTEMI (non-ST elevated myocardial infarction) ([facility]) Place 1 Tablet under the tongue as [...] morning. 30 g 2 03/24/20 23 023 Discontinued(Pa dication List Clean Up) Pantoprazole Sodium 40 [...] Stent Restenosis in Drug-Eluting Stents Project # [id number] Personal Banker: Wilda Serrano MD [phone] GENOMICS CARDIO RESEARCH OTHER*[id number] 200611/29/2016 Overview: Renamed Per Clinical Trials Billing Project. 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 # [id number] Personal Banker: Wilda Serrano MD [phone] Type 2 diabetes mellitus wit h hemoglobin A1c goal of less than 7.0% 11/03/2006 08/15/2007 Overview: ICD-10 update of inactive term PURE HYPERCHOLESTEROLEM 11/03/2006 10/01/20 09 Overview: Per Lipid Taxonomy. 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 Cruz by Dr. Oneida Briggs PA-C for advice regarding RADHA on CKD History of Present Illness: Ms. Cruz is a 88 year old female with below mentioned past medical history comes to the nephrology clinic to establish care. I reviewed the medical records in [facility] . History was obtained from the patient. Patient was admitted to [facility], discharged on June 10 for NSTEMI and CHF exacerbation, during hospitalization was treated with Lasix drip. Losartan and Aldactone were held. Cardiac catheterization was considered but deferred given poor candidacy Was discharged on torsemide 20 mg, Imdur 60 mg, further hospital course was complicated ESBL UTI, treated with ertapenem. Patient also had a prior hospitalization in April with [place] , CVA Status of chronic issues Hyperlipidemia [...] mri compatible patecmaker insertion intraoperative fluoroscopic guidance [facility]04/08[facility]14 KNEE ARTHROSCOPY/ARTHROPLASTY 09/2010 dr salcedo LIGATE/CUT OVIDUCT(S) 1963 OTHER 12/27 RCA drug eluting stent REPLACEMENT AORTIC VALVE, BYPASS WITH PROSTHETIC VALVE 04/27 [place] Bovine AVR TOTAL ABD HYSTERECTOMY W/WO REMOVAL [...] % Nasal Solution Administer into nostril 1 [place] in the morning AND 1 [place] before bedtime. 30 mL 0 Fexofenadine HCl 180 MG Oral Tablet (Lizzette) Take by mouth 1 Tablet daily as needed for Allergies.90 Tablet 0 Ipratropium [place] 0.03 % Nasal Solution Administer into each [...] Normal range of motion Integumentary: Warm, Dry, [place] Neurologic: Alert & Oriented Psychiatric: Cooperative, Non-suicidal [...] 0929 06/15/23 1147 06/13/23 0926 05/15/23 1559 05/01/23 1338 03/22/23 0904 11/04/22 0945 CALCIUM - [facility] mg/dL 10.0 10.2 10.2 10.3* 9.7 < > 9.7 PHOSPHORUS - [facility] mg/dL -- -- -- -- 2.8 -- 3.0 25-HYDROXY VITAMIN D - [facility] ng/mL -- -- -- -- 69 -- 70 < > = values in this interval not displayed. No results for input(s): HGBA1C in the last 90114 hours. No results for input(s): MICROALBUMIN, PROCRRATIO in the last 70301 hours. PERTINENT IMAGING INFO: I independently visualized [...] DAYS Juno Christianson MD Clinical Associate Nephrology, [address] [address] documented in this encounter Plan of Treatment Upcoming Encounters Date Type Specialty Care Team Description 06/30/2023 Office Visit Family Medicine Srini Draper MD [address] [place] [phone] 06/30/2023 Office Visit Otolaryngology Keely Tanner PA-C [address] [place] [address] 07/07/2023 [facility] [address] [place] [address] 07/12/2023 Anticoagulation Pharmacy Pharmacist1, [facility] [address] [place] [address] 07/17/2023 Office Visit Cardiology Srini Doyle, [address] [place] [address] 09/13/2023 Office Visit Cardiology Srini Doyle, [address] [place] [address] 11/20/2023 Office Visit Family Medicine Yaya Frederick MD [address] [place] [address] 12/01/2023 Office Visit Hematology Oncology Agustín Sullivan MD [address] [place] [address], [place] [address] 12/04/2023 Office Visit Cardiology Bucky Calvo PA-C [address] [place] [address] Scheduled Orders Name Type Priority Associated Diagnoses Orde r Schedule BASIC METABOLIC PANEL Lab Routine Kidney disease, chronic, stage IV (GFR 15-29 ml/min) ([facility]) Expected: 06/30/2023, Expires: 08/23/2023 Health Maintenance Due Date Last Done Comments Zoster Vaccines (1 of 2) 1954 Influenza Vaccine (FLU shot) (#1) 2023 07/04/2022, 07/19/2021, 07/19/2021, Additional history exists Depression Screening, Annual for Pts 12 and Over 02/09/2024 02/08/2023 CKD PHOS USE SMARTSET 57120 05/01/202404/22, 11/04/2022, 02/14/2019 CKD HGB USE SMARTSET 96211 06/13/202406/13, 06/13/2023, 05/15/2023, Additional history exists Albumin/Creatinine Ratio 06/15/2024 023, 05/01/2023, 07/04/2022, Additional history exists DXA Scan 11/09/2024 11/09/2022, 01/21, 11/03/2015, Additional history exists DTaP,Tdap,and Td Vaccines (3 - Td or Tdap) 06/04/2029 06/04/2019, 01/28/2019, 05/26/2008 Pneumococcal Vaccine: 65+ Years Completed 05/24/2016, 11/14/2001 COVID-19 Vaccine Completed 09/29/2022, , 01/05/2021, Additional history exists VITAMIN D LEVEL ONCE IN A LIFETIME-USE SMARTSET# 78094 Completed 05/01/2023, 11/04/2022, 02/14/2019, Additional history exists [...] replacement Heart valve replaced by other means 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
--- OUTSIDE RECORDS SUMMARY | 2023-09-12 22:30 | External Medical Summary ---
Author Name Unknown Address Unknown Organization [id number]:[facility] - [address] [place] [id number] Laboratory Report Ordering Provider Test Date Status ERENDIRA CÁRDENAS 06/22/2023 09:29:03 Final Observation Date Value Abnormality Reference (Units ) Status BUN 06/22/2023 09:29:03 46 Above high normal 6-20 (mg/dL) Final Creatinine 06/22/2023 09:29:03 2.0 Above high normal 0.5-1.0 (mg/dL) Final Glomerular filtration rate/1.73 sq M.predicted [Volume Rate/Area] in Serum, Plasma or Blood by Creatinine-based formula (CKD-EPI) 06/22/2023 09:29:03 24 Below low normal >=60 (mL/min) Final eGFR is calculated based on the CKD-EPI 2020 equation SODIUM 06/22/2023 09:29:03 145 135-146 (m mol/L) Final Potassium 06/22/2023 09:29:03 4.0 3.5-5.1 (m mol/L) Final Cl 06/22/2023 09:29:03 99 98-107 (mm ol/L) Final CO2 06/22/2023 09:29:03 32 22-32 (mmo l/L) Final Anion gap 06/22/2023 09:29:03 14 7-15 (mmol /L) Final Glucose 06/22/2023 09:29:03 128 Above high normal 70 -120 (mg/dL) Final Calcium 06/22/2023 09:29:03 10.0 8.4-10.2 ( mg/dL) Final Performing Location [facility] - [address] [place] [id number]
--- OUTSIDE RECORDS SUMMARY | 2023-09-12 22:30 | External Medical Summary | Summary of Care ---
Author Name Unknown Organization [facility] Address [address] [facility] [address] Phone [phone] Care Team Providers Care Lease Buyer Name Role Phone Yaya Frederick MD Primary Care Provider [phone] Reason for Visit * Reason Comments Outpatient Testing Encounter Details Date Type Department Care Team Description 06/17/2023 Laboratory Laboratory Patient Service [address] [address] [address] History of ESBL E. coli infection Allergies Active Allergy Reactions Severity Noted Date [...] as of this encounter (statuses as of 06/17/2023) Medications Medication Sig Dispensed Refills Start Date End Date Status BENADRYL 25 MG PO TABS 1 TABLET EVERY 4 TO 6 HOURS NEEDED 0 Active CALTRATE 600+D 600-400 MG-UNIT PO TABS one tablet twice daily 0 06/17/2009 Active MAG-OXIDE 400 MG PO TABSIndications:Chron ic ischemic heart disease one tablet twice a day 60 Tab 5 01/05/2011 Active Additional Information Patient taking differently: 400 mgOralDaily(AM), Reported on 11/21/2022 GRX ANALGESIC BALM EX OINT Apply topically to affected area. 0 07/01/2013 Active Azelastine HCl 0.15 % Nasal SolutionIndications:P ost-nasal discharge Administer into nostril 1 [place] in the morning AND 1 [place] before bedtime. 30 mL 0 11/30/2021 Active Fexofenadine HCl 180 MG Oral Tablet (Lizzette) Take by mouth 1 Tablet daily as needed for Allergies. 90 Tablet 0 01/21/2022 Active Ipratropium [place] 0.03 % Nasal Solution Administer into each [...] as directed. 2L at bedtime 0 Active Estrogens Conjugated 0.625 MG/GM Vaginal Cream (Premarin)Indications :Recurrent UTI Administer 0.5 g into the vagina in the morning. 30 g 2 03/24/2023 Active Additional Information Patient not taking.Reported on 05/25/2023 Pantoprazole Sodium 40 MG Oral Tablet Delayed Release (Protonix)Indications :Esophagitis Take 1 Tablet by mouth in the morning. 90 Tablet 1 03/28/2023 Active Torsemide 20 MG Oral Tablet (Demadex)Indications: Chronic ischemic heart disease Take 1 Tablet by mouth once a day on Monday, Monday, and Monday only. 100 Tablet 2 04/10/2023 Active Spironolactone 25 MG Oral Tablet (Aldactone)Indication [...] (Nitrostat)Indication s:NSTEMI (non-ST elevated myocardial infarction) ([facility] [...] mouth in the morning. 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 # [id number] Supervisor: Wilda Serrano MD [phone] Type 2 diabetes mellitus wit h hemoglobin [...] as of this encounter (statuses as of 06/17/2023) Immunizations Name Administration Dates Next Due COVID-19 [...] Encounters Date Type Specialty Care Team Description 06/20/2023 Imaging Radiology 06/23/2023 Office Visit Nephrology Juno Christianson MD [address] [facility] [place] [address] 06/30/2023 Office Visit Family Medicine Srini Draper MD [address] [place] [address] 07/12/2023 Anticoagulation Pharmacy Pharmacist, [facility] [address] [place] [address] 07/17/2023 Office Visit Cardiology Srini Doyle DO [address] [place] [address] 08/11/2023 Office Visit Otolaryngology Keely Tanner PA-C [address] [place] [address] 09/13/2023 Office Visit Cardiology Srini Doyle DO [address] [place] [address] 11/20/2023 Office Visit Family Medicine Yaya Frederick MD [address] [place] [address] 12/01/2023 Office Visit Hematology Oncology Agustín Sullivan MD [address] [place] [address] 12/04/2023 Office Visit Cardiology Bucky Calvo PA-C [address] [place] [address] Pending Results Name Type Priority Associated Diagnoses Date /Time CULTURE, URINE, QUANTITATIVE Lab Routine History of ESBL E. coli infection 06/17/2023 11:07 AM EDT Health Maintenance Due Date Last Done Comments Zoster Vaccines (1 of 2) 1954 Influenza Vaccine (FLU shot) (#1) 2023 07/04/2022, 07/19/2021, 07/19/2021, Additional history exists Depression Screening, Annual for Pts 12 and Over 02/09/2024 02/08/2023 CKD PHOS USE SMARTSET 25390 05/01/202404/22, 11/04/2022, 02/14/2019 CKD HGB USE SMARTSET 18850 06/13/202406/13, 06/13/2023, 05/15/2023, Additional history exists Albumin/Creatinine Ratio 06/15/2024 023, 05/01/2023, 07/04/2022, Additional history exists DXA Scan 11/09/2024 11/09/2022, 01/21, 11/03/2015, Additional history exists DTaP,Tdap,and Td Vaccines (3 - Td or Tdap) 06/04/2029 06/04/2019, 01/28/2019, 05/26/2008 Pneumococcal Vaccine: 65+ Years Completed 05/24/2016, 11/14/2001 COVID-19 Vaccine Completed 09/29/2022, , 01/05/2021, Additional history exists VITAMIN D LEVEL ONCE IN A LIFETIME-USE SMARTSET# 74969 Completed 05/01/2023, 11/04/2022, 02/14/2019, Additional history exists [...] as of this encounter Visit Diagnoses Diagnosis History of ESBL E. coli infection Personal history of other infectious and parasitic disease documented in this encounter Additional Health Concerns Infection Onset Date Last Indicated Resolved Time Varicella zoster 08/01/2022 08/01/2022 ESBL 01/26/2023 05/31/2023 documented as of this encounter Care Teams Lease Buyer Relationship Specialty Start Date End Date Yaya Frederick MD [address] [place] [id number] PCP - General Family Medicine 05/04/21 documented as of this encounter
--- OUTSIDE RECORDS SUMMARY | 2023-09-12 22:30 | External Medical Summary | Summary of Care ---
Author Name Unknown Organization [facility] Address [address] [facility] [place] [address] Phone [phone] Care Team Providers Care Auricular Detoxification Specialist Name Role Phone Yaya Frederick MD Primary Care Provider [phone] Reason for Visit * Reason Onset Date Comments Test Results Lab 06/20/2023 Encounter Details Date Type Department Care Team Description 06/20/2023 Telephone Hematology/Oncology [facility] [place] [address] [place] [address] Agustín Sullivan MD [address] [place] [address] Test Results Lab Allergies Active Allergy Reactions [...] as of this encounter (statuses as of 06/20/2023) Medications Medication Sig Dispensed Refills Start Date [...] SolutionIndications:P ost-nasal discharge Administer into nostril 1 [place] in the morning AND 1 [place] before bedtime. 30 mL 0 11/30/2021 Active Fexofenadine HCl 180 MG Oral Tablet (Lizzette) Take by mouth 1 Tablet daily as needed for Allergies. 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 # [id number] Bindery Machine Setter/Set Up Operator: Wilda Serrano MD [phone] Type 2 diabetes mellitus wit h hemoglobin [...] as of this encounter (statuses as of 06/20/2023) Immunizations Name Administration Dates Next Due COVID-19 [...] Telephone Encounter - Magi Ball LPN - 06/20/2023 11:37 AM EDT Notified patient per myG message, patient is active, standard monthly order for cbcd already entered. ----- Message from Agustín Sullivan MD sent at 06/20/2023 6:32 AM EDT ----- Blood workup done on 06/13/2023: -WBC 7100, H&H of 11.4/38.5, Platelet count -> 297,000. She is a case of essential thrombocythemia, JAK2 mutation positive Currently on hydroxyurea at 500 mg 5 days a week and continue hydroxyurea at the same dose. She also has worsening kidney function, serum creatinine level is around 1.9- 2 mg/dL. Hemoglobin level may dropped because of abnormal kidney function test in the future. Repeat CBCD in about 1 month's time. documented in this encounter Plan of Treatment Upcoming Encounters Date Type Specialty Care Team Description 06/23/2023 Office Visit Nephrology Juno Christianson MD [address] [place] [address] 06/30/2023 Office Visit Family Medicine Srini Draper MD [address] [place] [address] 07/07/2023 Cardiac Studies Cardiology [place] [facility] [address] [place] [address] 07/12/2023 Anticoagulation Pharmacy Pharmacist1, [facility] [address] [place] [address] 07/17/2023 Office Visit Cardiology Srini Doyle DO [address] [place] [address] 08/11/2023 Office Visit Otolaryngology Keely Tanner PA-C [address] [place] [address] 09/13/2023 Office Visit Cardiology Srini Doyle, [address] [place] [address] 11/20/2023 Office Visit Family Medicine Yaya Frederick MD [address] [place] [address] 12/01/2023 Office Visit Hematology Oncology Agustín Sullivan MD [address] [place] [address] 12/04/2023 Office Visit Cardiology Bucky Calvo PA-C [address] [place] [address] Health Maintenance Due Date Last Done Comments Zoster Vaccines (1 of 2) 1954 Influenza Vaccine (FLU shot) (#1) 2023 07/04/2022, 07/19/2021, 07/19/2021, Additional history exists Depression Screening, Annual for Pts 12 and Over 02/09/2024 02/08/2023 CKD PHOS USE SMARTSET 05320 05/01/202404/22, 11/04/2022, 02/14/2019 CKD HGB USE SMARTSET 82828 06/13/202406/13, 06/13/2023, 05/15/2023, Additional history exists Albumin/Creatinine Ratio 06/15/2024 023, 05/01/2023, 07/04/2022, Additional history exists DXA Scan 11/09/2024 11/09/2022, 01/21, 11/03/2015, Additional history exists DTaP,Tdap,and Td Vaccines (3 - Td or Tdap) 06/04/2029 06/04/2019, 01/28/2019, 05/26/2008 Pneumococcal Vaccine: 65+ Years Completed 05/24/2016, 11/14/2001 COVID-19 Vaccine Completed 09/29/2022, , 01/05/2021, Additional history exists VITAMIN D LEVEL ONCE IN A LIFETIME-USE SMARTSET# 70248 Completed 05/01/2023, 11/04/2022, 02/14/2019, Additional history exists [...] documented as of this encounter Care Teams Auricular Detoxification Specialist Relationship Specialty Start Date End Date Yaya Frederick MD [address] [place] [address] PCP - General Family Medicine 05/04/21 documented as of this encounter
--- OUTSIDE RECORDS SUMMARY | 2023-09-12 22:30 | External Medical Summary | Summary of Care ---
Author Name Unknown Organization [facility] Address [address] [facility] [place] [address] Phone [phone] Care Team Providers Care Category Specialist Name Role Phone Yaya Frederick MD Primary Care Provider [phone] Reason for Visit * Reason Comments Outpatient Testing Encounter Details Date Type Department Care Team Description 06/22/2023 Laboratory Laboratory Patient Service [address] [address] [address] RADHA (acute kidney injury) (HCC) Allergies Active Allergy Reactions Severity Noted [...] as of this encounter (statuses as of 06/22/2023) Medications Medication Sig Dispensed Refills Start Date [...] SolutionIndications:P ost-nasal discharge Administer into nostril 1 [place] in the morning AND 1 [place] before bedtime. 30 mL 0 11/30/2021 Active Fexofenadine HCl 180 MG Oral Tablet (Lizzette) Take by mouth 1 Tablet daily as needed for Allergies. 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 # [id number] Non Cdl Driver: Wilda Serrano MD [phone] Type 2 diabetes mellitus wit h hemoglobin A1c goal of less than 7.0% 11/03/2006 08/15/2007 Overview: ICD-10 update of inactive term PURE HYPERCHOLESTEROLEM 11/03/2006 10/01/20 09 Overview: Per Lipid Taxonomy. 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/2008 [facility]entiary current use of anticoagulant therapy 0 05/05/2006 01/23/2009 Overview: ICD-10 update of inactive term Anticoagulation management encounter 05/05/2006 10/03/2019 Unspecified viral infection, in conditions classified elsewhere and of unspecified site 06/08/2005 09/25/2007 Menopause 12/19/2001 12/27/2017 FEM STRESS INCONTINENCE 05/10/2001 12/04/19 02 documented as of this encounter (statuses as of 06/22/2023) Immunizations Name Administration Dates Next Due COVID-19 [...] Visit Nephrology [facility] [address] [facility] [address] 06/30/2023 Office Visit Family Medicine Srini Draper MD [address] [place] [address] 07/07/2023 Cardiac Studies Cardiology [place] [facility] [address] [place] [address] 07/12/2023 Anticoagulation Pharmacy Pharmacist, [facility] [address] [place] [address] 07/17/2023 Office Visit Cardiology Srini Doyle DO [address] [place] [address] 08/11/2023 Office Visit Otolaryngology Keely Tanner PA-C [address] [place] [address] 09/13/2023 Office Visit Cardiology Srini Doyle DO [address] [place] [address] 11/20/2023 Office Visit Family Medicine Yaya Frederick MD [address] [place] [address] 12/01/2023 Office Visit Hematology Oncology Agustín Sullivan MD [address] [place] [address] 12/04/2023 Office Visit Cardiology Bucky Calvo PA-C [address] [place] [address] Pending Results Name Type Priority Associated Diagnoses Date /Time BASIC METABOLIC PANEL Lab Routine RADHA (acute kidney injury) (HCC) 06/22/2023 9:29 AM EDT Health Maintenance Due Date Last Done Comments Zoster Vaccines (1 of 2) 1954 Influenza Vaccine (FLU shot) (#1) 2023 07/04/2022, 07/19/2021, 07/19/2021, Additional history exists Depression Screening, Annual for Pts 12 and Over 02/09/2024 02/08/2023 CKD PHOS USE SMARTSET 12035 05/01/202404/22, 11/04/2022, 02/14/2019 CKD HGB USE SMARTSET 11024 06/13/202406/13, 06/13/2023, 05/15/2023, Additional history exists Albumin/Creatinine Ratio 06/15/2024 023, 05/01/2023, 07/04/2022, Additional history exists DXA Scan 11/09/2024 11/09/2022, 01/21, 11/03/2015, Additional history exists DTaP,Tdap,and Td Vaccines (3 - Td or Tdap) 06/04/2029 06/04/2019, 01/28/2019, 05/26/2008 Pneumococcal Vaccine: 65+ Years Completed 05/24/2016, 11/14/2001 COVID-19 Vaccine Completed 09/29/2022, , 01/05/2021, Additional history exists VITAMIN D LEVEL ONCE IN A LIFETIME-USE SMARTSET# 01320 Completed 05/01/2023, 11/04/2022, 02/14/2019, Additional history exists [...] Visit Diagnoses Diagnosis RADHA (acute kidney injury) (HCC) Acute kidney failure, unspecified documented in this encounter Additional Health Concerns Infection Onset Date Last Indicated Resolved Time Varicella zoster 08/01/2022 08/01/2022 ESBL 01/26/2023 05/31/2023 documented as of this encounter Care Teams Category Specialist Relationship Specialty Start Date End Date Yaya Frederick MD [address] [place] [address] PCP - General Family Medicine 05/04/21 documented as of this encounter
--- OUTSIDE RECORDS SUMMARY | 2023-09-12 22:30 | External Medical Summary | Summary of Care ---
Author Name Unknown Organization [facility] Address [address] [facility] [place] [address] Phone [phone] Care Team Providers Care Freight Representative Name Role Phone Yaya Frederick MD Primary Care Provider [phone] Reason for Visit * Reason Comments Outpatient Testing Encounter Details Date Type Department Care Team Description 06/15/2023 Laboratory Laboratory [facility] [address] [address] RADHA (acute kidney injury) (HCC); Dysuria; History of ESBL E. coli infection Allergies [...] as of this encounter (statuses as of 06/15/2023) Medications Medication Sig Dispensed Refills Start Date [...] SolutionIndications:P ost-nasal discharge Administer into nostril 1 [place] in the morning AND 1 [place] before bedtime. 30 mL 0 11/30/2021 Active Fexofenadine HCl 180 MG Oral Tablet (Lizzette) Take by mouth 1 Tablet daily as needed for Allergies. 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 # [id number] Bung Driver: Wilda Serrano MD [phone] Type 2 diabetes mellitus wit h hemoglobin A1c goal of less than 7.0% 11/03/2006 08/15/2007 Overview: ICD-10 update of inactive term PURE HYPERCHOLESTEROLEM 11/03/2006 10/01/20 09 Overview: Per Lipid Taxonomy. 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/2008 senior living current use of anticoagulant therapy 0 05/05/2006 01/23/2009 Overview: ICD-10 update of inactive term Anticoagulation management encounter 05/05/2006 10/03/2019 Unspecified viral infection, in conditions classified elsewhere and of unspecified site 06/08/2005 09/25/2007 Menopause 12/19/2001 12/27/2017 FEM STRESS INCONTINENCE 05/10/2001 12/04/19 02 documented as of this encounter (statuses as of 06/15/2023) Immunizations Name Administration Dates Next Due COVID-19 mRNA, LNP-s, No Pre serve, 2-Dose Series (Something[employer]ie) 09/13/2021,01/05/2021,12/15/2020 Covid-19, Mrna, Lnp-s, Pf, B ivalent, 30 Mcg, IM, 12 yrs and above (SomethingIndie) 09/29/2022 H1N1 2009 Influenza, IM 10/08/2009 Pneumococcal [...] Visit Nephrology [facility] [address] [facility] [address] 06/23/2023 Office Visit Otolaryngology Keely Tanner PA-C [address] [place] [address] 06/30/2023 Office Visit Family Medicine Srini Draper MD [address] [place] [address] 07/12/2023 Anticoagulation Pharmacy Pharmacist1, [facility] [address] [place] [address] 07/17/2023 Office Visit Cardiology Srini Doyle, DO [address] [place] [address] 09/13/2023 Office Visit Cardiology Srini Doyle, [address] [place] [address] 11/20/2023 Office Visit Family Medicine Yaya Frederick MD [address] [place] [address] 12/01/2023 Office Visit Hematology Oncology Agustín Sullivan MD [address] [facility] [place] [address] 12/04/2023 Office Visit Cardiology Bucky Calvo PA-C [address] [place] [address] Pending Results Name Type Priority Associated Diagnoses Date /Time BASIC METABOLIC PANEL Lab Routine RADHA (acute kidney injury) (HCC) 06/15/2023 11:47 AM EDT URINALYSIS, REFLEX TO MICROSCOPIC Lab Routine Dysuria History of ESBL E. coli infection 06/15/2023 1:23 PM EDT ALBUMIN / CREATININE RATIO, URINE Lab Routine RADHA (acute kidney injury) (HCC) 06/15/2023 1:23 PM EDT Health Maintenance Due Date Last Done Comments Zoster Vaccines (1 of 2) 1954 *BISPHONATE OR OTHER ACCEPTABLE MEDICATION NEEDED FOR OSTEOPOROSIS (REFER TO SMARTSET #1146) 10/24/2021 Influenza Vaccine (FLU shot) (#1) 2023 07/04/2022, 07/19/2021, 07/19/2021, Additional history exists Depression Screening, Annual for Pts 12 and Over 02/09/2024 02/08/2023 Albumin/Creatinine Ratio 05/01/2024 023, 07/04/2022, 12/02/2010, Additional history exists CKD PHOS USE SMARTSET 34974 05/01/202404/22, 11/04/2022, 02/14/2019 CKD HGB USE SMARTSET 53875 06/13/202406/13, 06/13/2023, 05/15/2023, Additional history exists DXA Scan 11/09/2024 11/09/2022, 01/21, 11/03/2015, Additional history exists DTaP,Tdap,and Td Vaccines (3 - Td or Tdap) 06/04/2029 06/04/2019, 01/28/2019, 05/26/2008 Pneumococcal Vaccine: 65+ Years Completed 05/24/2016, 11/14/2001 COVID-19 Vaccine Completed 09/29/2022, , 01/05/2021, Additional history exists VITAMIN D LEVEL ONCE IN A LIFETIME-USE SMARTSET# 79364 Completed 05/01/2023, 11/04/2022, 02/14/2019, Additional history exists [...] kidney injury) (HCC) Acute kidney failure, unspecified Dysuria History of ESBL E. coli infection Personal history of other infectious and parasitic disease documented in this encounter Additional Health Concerns Infection Onset Date Last Indicated Resolved Time Varicella zoster 08/01/2022 08/01/2022 ESBL 01/26/2023 05/31/2023 documented as of this encounter Care Teams Freight Representative Relationship Specialty Start Date End Date Yaya Frederick MD [address] [place] [address] [place] [address] PCP - General Family Medicine 05/04/21 documented as of this encounter
--- OUTSIDE RECORDS SUMMARY | 2023-09-12 22:30 | External Medical Summary | Summary of Care ---
Author Name Unknown Organization [facility] Address [address] [facility] [place] [address] Phone [phone] Care Team Providers Care Sprinkling Truck Driver Name Role Phone Yaya Frederick MD Primary Care Provider [phone] Reason for Visit * Reason Onset Date Comments Outpatient Testing 06/22/2023 Encounter Details Date Type Department Care Team Description 06/22/2023 Telephone [facility] [address] [place] [address] Oneida Briggs PA-C [address] [place], [place] [phone] Outpatient Testing Allergies Active Allergy Reactions Severity Noted Date [...] SolutionIndications:P ost-nasal discharge Administer into nostril 1 [place] in the morning AND 1 [place] before bedtime. 30 mL 0 11/30/2021 Active Fexofenadine HCl 180 MG Oral Tablet (Lizzette) Take by mouth 1 Tablet daily as needed for Allergies. 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/2008 [facility] current use of anticoagulant therapy 0 05/05/2006 [...] Telephone Encounter - Oneida Briggs PA-C - 06/22/2023 7:50 AM EDT Patient requesting Cr level to be checked prior to Nephrology appointment tomorrow. Order for BMP placed. documented in this encounter Plan of Treatment Upcoming Encounters Date Type Specialty Care Team Description 06/23/2023 Office Visit Nephrology [facility]o Christianson [facility] [address] [facility] [address] 06/30/2023 Office Visit Family Medicine [facility] [phone] 07/07/2023 Cardiac Studies Cardiology [facility] [address] [facility] [place] [address] 07/12/2023 Anticoagulation Pharmacy Pharmacist1, [facility] [address] [place] [address] 07/17/2023 Office Visit Cardiology Srini Doyel, DO [address] [place] [address] 08/11/2023 Office Visit Otolaryngology Keely Tanner PA-C [address] [place] [address] 09/13/2023 Office Visit Cardiology Srini Doyle, DO [address] [place] [address] 11/20/2023 Office Visit Family Medicine Yaya Frederick MD [address] [place] [address] 12/01/2023 Office Visit Hematology Oncology Agustín Sullivan MD [address] [place] [address], [place] [address] 12/04/2023 Office Visit Cardiology Bucky Calvo PA-C [address] [place] [address] Scheduled Orders Name Type Priority Associated Diagnoses Orde r Schedule BASIC METABOLIC PANEL Lab Routine RADHA (acute kidney injury) (HCC) Expected: 06/22/2023 (Approximate), Expires: 06/21/2024 Health Maintenance Due Date Last Done Comments Zoster Vaccines (1 of 2) 1954 Influenza Vaccine (FLU shot) (#1) 2023 07/04/2022, 07/19/2021, 07/19/2021, Additional history exists Depression Screening, Annual for Pts 12 and Over 02/09/2024 02/08/2023 CKD PHOS USE SMARTSET 46560 05/01/202404/22, 11/04/2022, 02/14/2019 CKD HGB USE SMARTSET 94021 06/13/202406/13, 06/13/2023, 05/15/2023, Additional history exists Albumin/Creatinine Ratio 06/15/2024 023, 05/01/2023, 07/04/2022, Additional history exists DXA Scan 11/09/2024 11/09/2022, 01/21, 11/03/2015, Additional history exists DTaP,Tdap,and Td Vaccines (3 - Td or Tdap) 06/04/2029 06/04/2019, 01/28/2019, 05/26/2008 Pneumococcal Vaccine: 65+ Years Completed 05/24/2016, 11/14/2001 COVID-19 Vaccine Completed 09/29/2022, , 01/05/2021, Additional history exists VITAMIN D LEVEL ONCE IN A LIFETIME-USE SMARTSET# 86854 Completed 05/01/2023, 11/04/2022, 02/14/2019, Additional history exists [...] documented as of this encounter Care Teams Sprinkling Truck Driver Relationship Specialty Start Date End Date Yaya Frederick MD [address] [place] [address] [place] [address] PCP - General Family Medicine 05/04/21 documented as of this encounter
--- OUTSIDE RECORDS SUMMARY | 2023-09-12 22:30 | External Medical Summary ---
Author Name Unknown Address Unknown Organization K01:[facility] [place] [address] [place] [address] Laboratory Report Ordering Provider Test Date Status ERENDIRA CÁRDENAS 06/17/2023 11:07:17 Final Observation Date Value Abnormality Reference (Units) Status Bacteria identified in Specimen by Culture 06/17/2023 11:07:17 No significant growth Final Test: Culture, Urine, Quant itative
Specimen Source: Urine, Clean Catch
Specimen Type: Urine
Specimen Date: 06/17/2023 11:07 AM
Result Date: 06/18/2023 2:03 PM
Result Status: Final result
Resulting Lab: [facility]
[address]
[place] [address]

CULTURE

No significant growth

null Performing Location [facility] [place] [address] [facility] [address]
--- OUTSIDE RECORDS SUMMARY | 2023-09-12 22:30 | External Medical Summary | Summary of Care ---
Author Name Unknown Organization [facility] Address [address] [facility] [place] [address] Phone [phone] Care Team Providers Care Sales Assistant Institutional Sales Name Role Phone Yaya Frederick MD Primary Care Provider [phone] Reason for Visit * Reason Onset Date Comments Test Results 06/15/2023 Encounter Details Date Type Department Care Team Description 06/15/2023 Telephone Cardiology, [facility] [address] [place] [address] Bucky Calvo PA-C [address] [place] [id number] Test Results Allergies Active Allergy Reactions Severity Noted Date [...] as of this encounter (statuses as of 06/16/2023) Medications Medication Sig Dispensed Refills Start Date [...] SolutionIndications:P ost-nasal discharge Administer into nostril 1 [place] in the morning AND 1 [place] before bedtime. 30 mL 0 11/30/2021 Active Fexofenadine HCl 180 MG Oral Tablet (Lizzette) Take by mouth 1 Tablet daily as needed for Allergies. 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 0 05/05/2006 01/23/2009 Overview: ICD-10 update of inactive term Anticoagulation management encounter 05/05/2006 10/03/2019 Unspecified viral infection, in conditions classified elsewhere and of unspecified site 06/08/2005 09/25/2007 Menopause 12/19/2001 12/27/2017 FEM STRESS INCONTINENCE 05/10/2001 12/04/19 02 documented as of this encounter (statuses as of 06/16/2023) Immunizations Name Administration Dates Next Due COVID-19 mRNA, LNP-s, No Pre serve, 2-Dose Series (Qpyn) 09/13/2021,01/05/2021,12/15/2020 Covid-19, Mrna, Lnp-s, Pf, B ivalent, [...] encounter Miscellaneous Notes * Telephone Encounter - Peyton Rivas LPN - 06/16/2023 1:33 PM EDT Provider to address: N/A Reason for Call: Test Results Contact: Telephone Call Contact Type: Test Results Outcome: Patient is aware of test results. And that culture was ordered. Total Time including non face to face (minutes): 5 * Telephone Encounter - Oneida Briggs PA-C - 06/16/2023 10:52 AM EDT Labs reviewed, Creatinine remains elevated, mildly improved. Patient has nephrology appointment 06/23. UA showing leukocyte esterase however casts also present. Order placed for urine culture. Patient denies symptoms. Oneida Briggs PA-C 06/16/2023 10:56 AM * Telephone Encounter - GAVIN Leigh - 06/15/2023 1:20 PM EDT Pt has already been scheduled for hosp f/u for 07/17/[address] Doyle. Will keep as scheduled. * Telephone Encounter - Sydney Lambert CMA - 06/15/2023 1:02 PM EDT Portal message sent to pt. Message forwarded to front desk administrator to schedule hosp f/u * Telephone Encounter - Sydney Lambert CMA - 06/15/2023 12:58 PM EDT ----- Message from Bucky Calvo PA-C sent at 06/14/2023 2:03 PM EDT ----- Metabolic panel received, posthospitalization. Results mildly improved compared to June 10, 2023 and [facility] Continue to hold losartan and spironolactone. Continue torsemide as recommended on discharge, 20 mg/day. Patient needs to be seen for hospital follow-up evalaution. documented in this encounter Plan of Treatment Upcoming Encounters Date Type Specialty Care Team Description 06/20/2023 Imaging Radiology 06/23/2023 Office Visit Nephrology Juno Christianson MD [address] [place] [address] 06/30/2023 Office Visit Family Medicine Srini Draper MD [address] [place] [address] 07/12/2023 Anticoagulation Pharmacy Pharmacist, [facility] [address] [place] [address] 07/17/2023 Office Visit Cardiology Srini Doyle, DO [address] [place] [address] 08/11/2023 Office Visit Otolaryngology Keely Tanner PA-C [address] [place] [address] 09/13/2023 Office Visit Cardiology Srini Doyle, DO [address] [place] [address] 11/20/2023 Office Visit Family Medicine Yaya Frederick MD [address] [place] [address] 12/01/2023 Office Visit Hematology Oncology Agustín Sullivan MD [address] [place] [address], [place] [address] 12/04/2023 Office Visit Cardiology Bucky Calvo PA-C [address] [place] [address] Scheduled Orders Name Type Priority Associated Diagnoses Orde r Schedule CULTURE, URINE, QUANTITATIVE Lab Routine History of ESBL E. coli infection Expected: 06/16/2023, Expires: 06/16/2024 Health Maintenance Due Date Last Done Comments Zoster Vaccines (1 of 2) 1954 Influenza Vaccine (FLU shot) (#1) 2023 07/04/2022, 07/19/2021, 07/19/2021, Additional history exists Depression Screening, Annual for Pts 12 and Over 02/09/2024 02/08/2023 CKD PHOS USE SMARTSET 71161 05/01/202404/22, 11/04/2022, 02/14/2019 CKD HGB USE SMARTSET 35803 06/13/202406/13, 06/13/2023, 05/15/2023, Additional history exists Albumin/Creatinine Ratio 06/15/2024 023, 05/01/2023, 07/04/2022, Additional history exists DXA Scan 11/09/2024 11/09/2022, 01/21, 11/03/2015, Additional history exists DTaP,Tdap,and Td Vaccines (3 - Td or Tdap) 06/04/2029 06/04/2019, 01/28/2019, 05/26/2008 Pneumococcal Vaccine: 65+ Years Completed 05/24/2016, 11/14/2001 COVID-19 Vaccine Completed 09/29/2022, , 01/05/2021, Additional history exists VITAMIN D LEVEL ONCE IN A LIFETIME-USE SMARTSET# 08853 Completed 05/01/2023, 11/04/2022, 02/14/2019, Additional history exists [...] Diagnoses Diagnosis History of ESBL E. coli infection- Primary Personal history of other infectious and parasitic disease documented in this encounter Additional Health Concerns Infection Onset Date Last Indicated Resolved Time Varicella zoster 08/01/2022 08/01/2022 ESBL 01/26/2023 05/31/2023 documented as of this encounter Care Teams Sales Assistant Institutional Sales Relationship Specialty Start Date End Date Yaya Frederick MD [address] [place] [address] PCP - General Family Medicine 05/04/21 documented as of this encounter
--- OUTSIDE RECORDS SUMMARY | 2023-09-12 22:30 | External Medical Summary | Summary of Care ---
Author Name Unknown Organization [facility] Address [address] [facility] [place] [address] Phone [phone] Care Team Providers Care Document Manager Name Role Phone Yaya Frederick MD Primary Care Provider [phone] Reason for Visit * Reason Onset Date Comments Test Results 06/15/2023 Encounter Details Date Type Department Care Team Description 06/15/2023 Telephone Cardiology, [facility] [address] [place] [address] Bucky Calvo PA-C [address] [place] [phone] Test Results Allergies Active Allergy Reactions Severity [...] SolutionIndications:P ost-nasal discharge Administer into nostril 1 [place] in the morning AND 1 [place] before bedtime. 30 mL 0 11/30/2021 Active Fexofenadine HCl 180 MG Oral Tablet (Lizzette) Take by mouth 1 Tablet daily as needed for Allergies. 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 Message forwarded to javascript front end developer to schedule hosp f/u * Telephone Encounter - Sydney Lambert CMA - 06/15/2023 12:58 PM EDT ----- Message from Bucky Calvo PA-C sent at 06/14/2023 2:03 PM EDT ----- Metabolic panel received, posthospitalization. Results mildly improved compared to June 10, 2023 and [facility] Continue to hold losartan and spironolactone. Continue torsemide as recommended on discharge, 20 mg/day. Patient needs to be seen for hospital follow-up evalaution. documented in this encounter Plan of Treatment Upcoming Encounters Date Type Specialty Care Team Description 06/23/2023 Office Visit Nephrology Juno Christianson MD [address] [place] [facility] [place] [address] 06/30/2023 Office Visit Family Medicine Srini Draper MD [address] [place] [phone] 07/07/2023 Cardiac Studies Cardiology [facility], [facility] 132 [facility] [place] [address] 07/12/2023 Anticoagulation Pharmacy Pharmacist1, [facility] [address] [place] [address] 07/17/2023 Office Visit Cardiology Srini Doyle, [address] [place] [address] 08/11/2023 Office Visit Otolaryngology Keely Tanner PA-C [address] [place] [address] 09/13/2023 Office Visit Cardiology Srini Doyle, DO [address] [place] [address] 11/20/2023 Office Visit Family Medicine Yaya Frederick MD [address] [place] [address] 12/01/2023 Office Visit Hematology Oncology Agustín Sullivan MD [address] [place] [address], [place] [address] 12/04/2023 Office Visit Cardiology Bucky Calvo PA-C [address] [place] [address] Health Maintenance Due Date Last Done Comments Zoster Vaccines (1 of 2) 1954 Influenza Vaccine (FLU shot) (#1) 2023 07/04/2022, 07/19/2021, 07/19/2021, Additional history exists Depression Screening, Annual for Pts 12 and Over 02/09/2024 02/08/2023 CKD PHOS USE SMARTSET 24331 05/01/2024 07, 11/04/2022, 02/14/2019 CKD HGB USE SMARTSET 24666 06/13/202406/13, 06/13/2023, 05/15/2023, Additional history exists Albumin/Creatinine Ratio 06/15/2024 023, 05/01/2023, 07/04/2022, Additional history exists DXA Scan 11/09/2024 11/09/2022, 01/21, 11/03/2015, Additional history exists DTaP,Tdap,and Td Vaccines (3 - Td or Tdap) 06/04/2029 06/04/2019, 01/28/2019, 05/26/2008 Pneumococcal Vaccine: 65+ Years Completed 05/24/2016, 11/14/2001 COVID-19 Vaccine Completed 09/29/2022, , 01/05/2021, Additional history exists VITAMIN D LEVEL ONCE IN A LIFETIME-USE SMARTSET# 96648 Completed 05/01/2023, 11/04/2022, 02/14/2019, Additional history exists [...] this encounter Results * CULTURE, URINE, QUANTITATIVE (06/17/2023 11:07 AM EDT) Culture Growth No significant growth 06/18/2023 2:03 PM EDT [facility] [place] Urine Urine specimen obtained by clean catch procedure / Unknown Non-blood Collection / Unknown 06/17/2023 11:07 AM EDT 06/17/2023 11:07 AM EDT Oneida Briggs PA-C LAB MICRO - GENERAL ORDERABLES [facility] [address] [facility] [address] documented in this encounter Visit Diagnoses Diagnosis History of ESBL E. coli infection- Primary Personal history of other infectious and parasitic disease documented in this encounter Additional Health Concerns Infection Onset Date Last Indicated Resolved Time Varicella zoster 08/01/2022 08/01/2022 ESBL 01/26/2023 05/31/2023 documented as of this encounter Care Teams Document Manager Relationship Specialty Start Date End Date Yaya Frederick MD [address] [place] [address] [place] [address] PCP - General Family Medicine 05/04/21 documented as of this encounter
--- OUTSIDE RECORDS SUMMARY | 2023-09-12 22:30 | External Medical Summary | Summary of Care ---
Author Name Unknown Organization [facility] Address [address] [facility] [place] [address] Phone [phone] Care Team Providers Care Tool Grinder Operator Name Role Phone Yaya Frederick MD Primary Care Provider [phone] Encounter Details Date Type Department Care Team Description 06/16/2023 Result Scan Unspecified Department Yared Raphael MD [address] [place] [address] <No scans attached> Allergies Active [...] SolutionIndications:P ost-nasal discharge Administer into nostril 1 [place] in the morning AND 1 [place] before bedtime. 30 mL 0 11/30/2021 Active Fexofenadine HCl 180 MG Oral Tablet (Lizzette) Take by mouth 1 Tablet daily as needed for Allergies. 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/2008 [facility] current use of anticoagulant therapy 0 05/05/2006 [...] Visit Nephrology Juno Christianson MD [address] [place] [address] 06/30/2023 Office Visit Family Medicine Srini Draper MD [address] [place] [phone] 07/12/2023 Anticoagulation Pharmacy Pharmacist, [facility] [address] [place] [address] 07/17/2023 Office Visit Cardiology Srini Doyle DO [address] [place] [address] 08/11/2023 Office Visit Otolaryngology Keely Tanner PA-C [address] [place] [address] 09/13/2023 Office Visit Cardiology Srini Doyle DO [address] [place] [address] 11/20/2023 Office Visit Family Medicine Yaya Frederick MD [address] [place] [address] 12/01/2023 Office Visit Hematology Oncology Agustín Sullivan MD [address] [place] [address] 12/04/2023 Office Visit Cardiology Bucky Calvo PA-C [address] [place] [address] Health Maintenance Due Date Last Done Comments Zoster Vaccines (1 of 2) 1954 Influenza Vaccine (FLU shot) (#1) 2023 07/04/2022, 07/19/2021, 07/19/2021, Additional history exists Depression Screening, Annual for Pts 12 and Over 02/09/2024 02/08/2023 CKD PHOS USE SMARTSET 86871 05/01/202404/22, 11/04/2022, 02/14/2019 CKD HGB USE SMARTSET 74029 06/13/202406/13, 06/13/2023, 05/15/2023, Additional history exists Albumin/Creatinine Ratio 06/15/2024 023, 05/01/2023, 07/04/2022, Additional history exists DXA Scan 11/09/2024 11/09/2022, 01/21, 11/03/2015, Additional history exists DTaP,Tdap,and Td Vaccines (3 - Td or Tdap) 06/04/2029 06/04/2019, 01/28/2019, 05/26/2008 Pneumococcal Vaccine: 65+ Years Completed 05/24/2016, 11/14/2001 COVID-19 Vaccine Completed 09/29/2022, , 01/05/2021, Additional history exists VITAMIN D LEVEL ONCE IN A LIFETIME-USE SMARTSET# 34334 Completed 05/01/2023, 11/04/2022, 02/14/2019, Additional history exists [...] Date/Time Associated Diagnosis Comments CARDIOLOGY SCANNED RESULT 06/16/2023 documented in this encounter Results * CARDIOLOGY SCANNED RESULT (06/16/2023) 06/16/2023 Yared Raphael MD OTHER documented in this encounter Additional Health Concerns Infection Onset Date Last Indicated Resolved Time Varicella zoster 08/01/2022 08/01/2022 ESBL 01/26/2023 05/31/2023 documented as of this encounter Care Teams Tool Grinder Operator Relationship Specialty Start Date End Date Yaya Frederick MD [address] [place] [address] PCP - General Family Medicine 05/04/21 documented as of this encounter
--- OUTSIDE RECORDS SUMMARY | 2023-09-12 22:31 | External Medical Summary ---
Author Name Unknown Address Unknown Organization K01:[facility] [place] [address] [facility] [place] [address] Laboratory Report Ordering Provider Test Date Status RACHEAL FLOWERS 06/15/2023 13:23:32 Final Observation Date Value Abnormality Reference (Units ) Status Color of Urine by Auto 06/15/2023 13:23:32 Yellow Colorless, Light Yellow, Yellow, Dark Yellow Final Clarity, Urine 06/15/2023 13:23:32 Clear Clear Final Glucose [Mass/volume] in Urine by Automated test strip 06/15/2023 13:23:32 Negative Negative (mg/dL) Final Bilirubin.total [Presence] in Urine by Automated test strip 06/15/2023 13:23:32 Negative Negative Final Ketones [Mass/volume] in Urine by Automated test strip 06/15/2023 13:23:32 Negative Negative (mg/dL) Final Specific gravity, Urine 06/15/2023 13:23:32 1.018 1.003-1.030 Final Hemoglobin [Presence] in Urine by Automated test strip 06/15/2023 13:23:32 Negative Negative Final pH, Urine 06/15/2023 13:23:32 5.5 5.0-7.5 (Units) Final Protein [Mass/volume] in Urine by Automated test strip 06/15/2023 13:23:32 30 Abnormal Negative (mg/dL) Final Urobilinogen [Mass/volume] in Urine by Automated test strip 06/15/2023 13:23:32 Normal Normal (mg/dL) Final Nitrite [Presence] in Urine by Automated test strip 06/15/2023 13:23:32 Negative Negative Final Leukocyte esterase [Presence] in Urine by Automated test strip 06/15/2023 13:23:32 Small Abnormal Negative Final RBC, Urine 06/15/2023 13:23:32 0-2 0-2 (/HPF) Final WBC, Urine 06/15/2023 13:23:32 30-49 Abnormal 0-2 (/HPF) Final Bacteria [#/area] in Urine sediment by Microscopy high power field 06/15/2023 13:23:32 0-25 0-25 (/HPF) Final Hyaline casts, Urine 06/15/2023 13:23:32 10-19 Abnormal None (/LPF) Final Yeast [#/area] in Urine sediment by Microscopy high power field 06/15/2023 13:23:32 Present Abnormal None (/HPF) Final Performing Location [facility] [place] [address] [facility] [address]
--- OUTSIDE RECORDS SUMMARY | 2023-09-12 22:31 | External Medical Summary | Summary of Care ---
Author Name Unknown Organization [facility] Address [address] [facility] [place] [address] Phone [phone] Care Team Providers Care Farmworker Livestock Name Role Phone Yaya Frederick MD Primary Care Provider [phone] Reason for Visit * Reason Comments Outpatient Testing Encounter Details Date Type Department Care Team Description 06/15/2023 Laboratory [facility] [address] [id number] RADHA (acute kidney injury) ([facility]) Allergies Active Allergy Reactions Severity [...] SolutionIndications:P ost-nasal discharge Administer into nostril 1 [place] in the morning AND 1 [place] before bedtime. 30 mL 0 11/30/2021 Active Fexofenadine HCl 180 MG Oral Tablet (Lizzette) Take by mouth 1 Tablet daily as needed for Allergies. 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 # [id number] Point Of Care Technician: Wilda Serrano MD [phone] Type 2 diabetes mellitus wit h hemoglobin [...] mRNA, LNP-s, No Pre serve, 2-Dose Series ([employer]) 09/13/2021,01/05/2021,12/15/2020 Covid-19, Mrna, Lnp-s, Pf, B ivalent, [...] Visit Nephrology [facility] [address] [facility] [address] 06/23/2023 Office Visit Otolaryngology Keely Tanner PA-C [address] [place] [address] 06/30/2023 Office Visit Family Medicine Srini Draper MD [address] [place] [address] 07/12/2023 Anticoagulation Pharmacy Pharmacist1, [facility] [address] [place] [address] 07/17/2023 Office Visit Cardiology Srini Doyle, DO [address] [place] [address] 09/13/2023 Office Visit Cardiology Srini Doyle, DO [address] [place] [address] 11/20/2023 Office Visit Family Medicine Yaya Frederick MD [address] [place] [address] 12/01/2023 Office Visit Hematology Oncology Agustín Sullivan MD [address] [place] [address] [place] [id number] 12/04/2023 Office Visit Cardiology Bucky Calvo PA-C [address] [place] [address] Pending Results Name Type Priority Associated Diagnoses Date /Time BASIC METABOLIC PANEL Lab Routine RADHA (acute kidney injury) (HCC) 06/15/2023 11:47 AM EDT Health Maintenance Due Date Last Done Comments Zoster Vaccines (1 of 2) 1954 *BISPHONATE OR OTHER ACCEPTABLE MEDICATION NEEDED FOR OSTEOPOROSIS (REFER TO SMARTSET #1146) 10/24/2021 Influenza Vaccine (FLU shot) (#1) 2023 07/04/2022, 07/19/2021, 07/19/2021, Additional history exists Depression Screening, Annual for Pts 12 and Over 02/09/2024 02/08/2023 Albumin/Creatinine Ratio 05/01/2024 023, 07/04/2022, 12/02/2010, Additional history exists CKD PHOS USE SMARTSET 16998 05/01/202404/22, 11/04/2022, 02/14/2019 CKD HGB USE SMARTSET 53580 06/13/202406/13, 06/13/2023, 05/15/2023, Additional history exists DXA Scan 11/09/2024 11/09/2022, 01/21, 11/03/2015, Additional history exists DTaP,Tdap,and Td Vaccines (3 - Td or Tdap) 06/04/2029 06/04/2019, 01/28/2019, 05/26/2008 Pneumococcal Vaccine: 65+ Years Completed 05/24/2016, 11/14/2001 COVID-19 Vaccine Completed 09/29/2022, , 01/05/2021, Additional history exists VITAMIN D LEVEL ONCE IN A LIFETIME-USE SMARTSET# 60225 Completed 05/01/2023, 11/04/2022, 02/14/2019, Additional history exists [...] documented as of this encounter Care Teams Farmworker Livestock Relationship Specialty Start Date End Date Yaya Frederick MD [address] [place] [address] PCP - General Family Medicine 05/04/21 documented as of this encounter
--- OUTSIDE RECORDS SUMMARY | 2023-09-12 22:31 | External Medical Summary | Summary of Care ---
Author Name Unknown Organization [facility] Address [address] [facility] [place] [address] Phone [phone] Care Team Providers Care Seamless Tube Roller Name Role Phone Yaya Frederick MD Primary Care Provider [phone] Reason for Visit * Reason Onset Date Comments Advice 06/08/2023 Encounter Details Date Type Department Care Team Description 06/08/[address] [address] Yaya Frederick MD [address] [place] [address] Advice Allergies Active Allergy Reactions Severity Noted Date [...] as of this encounter (statuses as of 06/13/2023) Medications Medication Sig Dispensed Refills Start Date [...] SolutionIndications:P ost-nasal discharge Administer into nostril 1 [place] in the morning AND 1 [place] before bedtime. 30 mL 0 11/30/2021 Active Fexofenadine HCl 180 MG Oral Tablet (Lizzette) Take by mouth 1 Tablet daily as needed for Allergies. 90 Tablet 0 01/21/2022 Active Ipratropium [place] 0.03 % Nasal Solution Administer into each [...] Capsule Take by mouth daily. 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 Draper * Telephone Encounter - Constantine Mckeon LPN - 06/13/2023 3:50 PM EDT Front office please help schedule pt for Hospital follow up * Telephone Encounter - Yaya Frederick MD - 06/11/2023 4:32 PM EDT Patient needs to be seen post hospital discharge in clinic with a physician his week Please make sure patient has an appointment I am out of state This week * Telephone Encounter - Janie Goss LPN - 06/08/2023 1:33 PM EDT Provider to address: Huber Jonathan wondering if Dr Frederick agrees with the care pt is receiving at [facility]. Reason for Call: Advice Contact: Telephone Call Contact Type: Care Coordination Outcome: Called pt sonJonathan. He states she is in [facility] and may get discharged tomorrow. Wondering if Dr Frederick is agreeing with the care she is receiving. States that some medications are being changed, she is being prescribed an antibiotic currently, and he wants to make sure this is all okay withher PCP. She does have an appt coming up on the with Dr Draper. Total Time including non face to face (minutes): 10 * Telephone Encounter - GAVIN Laureano - 06/08/2023 1:04 PM EDT Pt son called. His mother is being released in the next day or two and he needs to speak with someone about her after care. Please return his call at your earliest convenience documented in this encounter Plan of Treatment Upcoming Encounters Date Type Specialty Care Team Description 06/15/2023 Office Visit Family Medicine Srini Draper MD [address] [place] [phone] 06/16/2023 Anticoagulation Pharmacy Pharmacist, [facility] [address] [place] [address] 06/23/2023 Office Visit Otolaryngology Keely Tanner PA-C [address] [place] [address] 07/17/2023 Office Visit Cardiology Srini Doyle DO [address] [place] [address] 09/13/2023 Office Visit Cardiology Srini Doyle, [address] [place] [address] 11/20/2023 Office Visit Family Medicine Yaya Frederick MD [address] [place] [address] 12/01/2023 Office Visit Hematology Oncology Agustín Sullivan MD [address] [facility] [place] [address] 12/04/2023 Office Visit Cardiology Bucky Calvo PA-C [address] [place] [address] Health Maintenance Due Date Last Done Comments Zoster Vaccines (1 of 2) 1954 *BISPHONATE OR OTHER ACCEPTABLE MEDICATION NEEDED FOR OSTEOPOROSIS (REFER TO SMARTSET #1146) 10/24/2021 Influenza Vaccine (FLU shot) (#1) 2023 07/04/2022, 07/19/2021, 07/19/2021, Additional history exists Depression Screening, Annual for Pts 12 and Over 02/09/2024 02/08/2023 Albumin/Creatinine Ratio 05/01/2024 023, 07/04/2022, 12/02/2010, Additional history exists CKD PHOS USE SMARTSET 46485 05/01/202404/22, 11/04/2022, 02/14/2019 CKD HGB USE SMARTSET 88542 05/15/202405/15, 05/15/2023, 05/11/2023, Additional history exists DXA Scan 11/09/2024 11/09/2022, 01/21, 11/03/2015, Additional history exists DTaP,Tdap,and Td Vaccines (3 - Td or Tdap) 06/04/2029 06/04/2019, 01/28/2019, 05/26/2008 Pneumococcal Vaccine: 65+ Years Completed 05/24/2016, 11/14/2001 COVID-19 Vaccine Completed 09/29/2022, , 01/05/2021, Additional history exists VITAMIN D LEVEL ONCE IN A LIFETIME-USE SMARTSET# 29359 Completed 05/01/2023, 11/04/2022, 02/14/2019, Additional history exists [...] documented as of this encounter Care Teams Seamless Tube Roller Relationship Specialty Start Date End Date Yaya Frederick MD [address] [place] [address] PCP - General Family Medicine 05/04/21 documented as of this encounter
--- OUTSIDE RECORDS SUMMARY | 2023-09-12 22:31 | External Medical Summary | Summary of Care ---
Author Name Unknown Organization [facility] Address [address] [facility] [address] Phone [phone] Care Team Providers Care Weight Calculator Name Role Phone Yaya Frederick MD Primary Care Provider [phone] Reason for Visit * Reason Onset Date Comments Hospital Follow-Up 06/12/2023 Encounter Details Date Type Department Care Team Description 06/12/[address] [address] Pamela Riley, [facility] Follow-Up Allergies Active Allergy Reactions Severity Noted Date [...] SolutionIndications:P ost-nasal discharge Administer into nostril 1 [place] in the morning AND 1 [place] before bedtime. 30 mL 0 11/30/2021 Active Fexofenadine HCl 180 MG Oral Tablet (Lizzette) Take by mouth 1 Tablet daily as needed for Allergies. 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 # [id number] Primary School Teacher: Wilda Serrano MD [phone] Type 2 diabetes mellitus wit h hemoglobin A1c goal of less than 7.0% 11/03/2006 08/15/2007 Overview: ICD-10 update of inactive term PURE HYPERCHOLESTEROLEM 11/03/2006 10/01/20 09 Overview: Per Lipid Taxonomy. 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 Transitions of Care Note Reason for Referral:Recent Admission Admitted to: [facility], Date: 06/05/23 Discharged to: Home with health services, Date: 06/10/23 Diagnosis driving hospitalization: ACS, acute on chronic systolic and diastolic heart failure. Attempt made for SELMA call to patient, no answer, message left for patient to call back at [phone]. Also, left message for patient to call if they have any questions or concerns after hours or on the weekend before their follow-up appointment with their PCP. Will attempt to call tomorrow. Source/Contact: Patient SUBJECTIVE Consent: Verbal consent for review of hospital discharge: Yes REVIEW OF SYSTEMS Patient/Other Reports: Current patient/caregiver problems or concerns: Patient feels she is doing well at home, she is aware of her medication changes and her follow-up with Dr. Draper on 06/15/23. Patient reports since the look at least 10L of fluid from her in the hospital she is feeling much better and her ankles are still not swollen since discharge from the hospital. CV: Denies problems Pulmonary: Oxygen- 2L via nasal cannula continuous Chills/Sweats/Fever:Denies chills/sweats Denies fever Appetite:Denies problems such as nausea, vomiting, burning, decreased appetite Current diet: Heart healthy Bowel: denies problems Bladder: denies problems Wound (If applicable): N/A Pain:Denies Sleep:Denies problems FUNCTIONAL STATUS: ADL'S: Needs Assistance With:Bathing and Dressing IADL'S: Needs Assistance With:Grocery Shopping, Cooking food, Routine Housework, Taking medications, and Managing money Cognitive and Mental Health: denies problems, alert and oriented x 3, and able to communicate, understand instructions, process information. MEDICATION RECONCILIATION Medications: Discharge med list reviewed with patient or caregiver New medication(s) filled since hospitalization- Changed medication(s) since hospitalization Reports all medications taken as prescribed. Denies side effects Held medications: OBJECTIVE N/a ASSESSMENT Medication Risk Assessment: No risks identified Did patient fail outpatient treatment? Yes Discharge instructions available for review? Yes PLAN Symptom Monitoring Interventions:Member/caregiver education - signs and symptoms to contact PrimaryCare (DO NOT DELETE-Three olivares symptoms patient is to report to PCP) 1. Chest pain/increased shortness of breath/difficulty breathing 2. Fever/chills/nausea/vomiting 3. Weight gain of 2-3lbs in 24 hours, swelling of legs/hands/feet, confusion, increased weakness/fatigue, fall. Computer Recycling WorkerSenior Compliance Analyst of Care interventions/Action Plan: Medication reconciliation, Develop/confirm action plan for acute exacerbation, and 5 - 7 day follow-up with PCP in place - Date: 06/15/[address] Draper and 07/17/23 with cardiology Educated on role of SELMA completed with patient/caregiver. Educated patient/caregiver on patient right to have input on SELMA plan of care. Verification of Home Health/DME if indicated: YES [facility] Identified Care Gaps: No Care Gaps closed this call: Appointment made or confirmed, Medication adherence, Plan of care optimization, Post discharge appointment, Services in place, and Transition of Care follow-up communication Re-evaluation of Plan of Care and progress towards goals achievement: Patient education this visit: Verbal, Educated patient on importance of weighing herself daily and keeping track of weight, if 2-3lb weight gain in 24 hours she should call PCP or power ballast machine operator. Educated patient on importance of monitoring for signs/symptoms as dicussed above and to call PCP if they occur. Educated patient on importance of taking medications as prescribed and to keep follow-up appointments. Patient verbalized understanding of above education. Plan to follow-up as previously scheduled, instructed to call Primary Care Provider with change in symptoms or as needed before next follow-up, discharge needs met, verbalizes understanding and agrees with plan. Pamela Riley RN * Telephone Encounter - Pamela Riley RN - 06/12/2023 11:39 AM EDT Transitions of Care Note Attempt #1 Reason for Referral:Recent Admission Phone visit for follow up: SELMA Admitted to: [facility], Date: 06/05/23 Discharged to: Home with health services, Date: 06/10/23 Diagnosis driving hospitalization: ACS, acute on chronic systolic and diastolic heart failure. Attempt made for SELMA call to patient, no answer, message left for patient to call back at [phone]. Also, left message for patient to call if they have any questions or concerns after hours or on the weekend before their follow-up appointment with their PCP. Will attempt to call tomorrow. Pamela Riley RN documented in this encounter Plan of Treatment Upcoming Encounters Date Type Specialty Care Team Description 06/15/2023 Office Visit Family Medicine Srini Draper MD [address] [place] [id number] 06/16/2023 Anticoagulation Pharmacy Pharmacist1, [facility] [address] [place] [address] 06/23/2023 Office Visit Otolaryngology Keely Tanner PA-C [address] [facility] [place] [address] 07/17/2023 Office Visit Cardiology Srini Doyle, DO [address] [place] [address] 09/13/2023 Office Visit Cardiology Srini Doyle, DO [address] [place] [address] 11/20/2023 Office Visit Family Medicine Yaya Frederick MD [address] [place] [address] 12/01/2023 Office Visit Hematology Oncology Agustín Sullivan MD [address] [place] [address] 12/04/2023 Office Visit Cardiology Bucky Calvo PA-Zahida [address] [place] [address] Health Maintenance Due Date Last Done Comments Zoster Vaccines (1 of 2) 1954 *BISPHONATE OR OTHER ACCEPTABLE MEDICATION NEEDED FOR OSTEOPOROSIS (REFER TO SMARTSET #1146) 10/24/2021 Influenza Vaccine (FLU shot) (#1) 2023 07/04/2022, 07/19/2021, 07/19/2021, Additional history exists Depression Screening, Annual for Pts 12 and Over 02/09/2024 02/08/2023 Albumin/Creatinine Ratio 05/01/2024 023, 07/04/2022, 12/02/2010, Additional history exists CKD PHOS USE SMARTSET 63921 05/01/202404/22, 11/04/2022, 02/14/2019 CKD HGB USE SMARTSET 25625 05/15/202405/15, 05/15/2023, 05/11/2023, Additional history exists DXA Scan 11/09/2024 11/09/2022, 01/21, 11/03/2015, Additional history exists DTaP,Tdap,and Td Vaccines (3 - Td or Tdap) 06/04/2029 06/04/2019, 01/28/2019, 05/26/2008 Pneumococcal Vaccine: 65+ Years Completed 05/24/2016, 11/14/2001 COVID-19 Vaccine Completed 09/29/2022, , 01/05/2021, Additional history exists VITAMIN D LEVEL ONCE IN A LIFETIME-USE SMARTSET# 68842 Completed 05/01/2023, 11/04/2022, 02/14/2019, Additional history exists [...] documented as of this encounter Care Teams Weight Calculator Relationship Specialty Start Date End Date Yaya Frederick MD [address] [place] [address], [place] [address] PCP - General Family Medicine 05/04/21 documented as of this encounter
--- OUTSIDE RECORDS SUMMARY | 2023-09-12 22:31 | External Medical Summary | Summary of Care ---
Author Name Unknown Organization [facility] Address [address] [place] [address] Phone [phone] Care Team Providers Care Regional Agronomist Name Role Phone Yaya Frederick MD Primary Care Provider [phone] Encounter Details Date Type Department Care Team Description 06/14/2023 Orders Only Outcomes Research Department [address] [place] [address] Wilda Nava CHRA MyCode Research Other*[id number] Allergies Active Allergy Reactions Severity Noted Date [...] as of this encounter (statuses as of 06/14/2023) Medications Medication Sig Dispensed Refills Start Date [...] SolutionIndications:P ost-nasal discharge Administer into nostril 1 [place] in the morning AND 1 [place] before bedtime. 30 mL 0 11/30/2021 Active Fexofenadine HCl 180 MG Oral Tablet (Lizzette) Take by mouth 1 Tablet daily as needed for Allergies. 90 Tablet 0 01/21/2022 Active Ipratropium [place] 0.03 % Nasal Solution Administer into each [...] (Crestor)Indications: NSTEMI (non-ST elevated myocardial infarction) ([facility]) Take 1 Tablet by mouth in the morning. 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 0 05/05/2006 01/23/2009 Overview: ICD-10 update of inactive term Anticoagulation management encounter 05/05/2006 10/03/2019 Unspecified viral infection, in conditions classified elsewhere and of unspecified site 06/08/2005 09/25/2007 Menopause 12/19/2001 12/27/2017 FEM STRESS INCONTINENCE 05/10/2001 12/04/19 02 documented as of this encounter (statuses as of 06/14/2023) Immunizations Name Administration Dates Next Due COVID-19 [...] Office Visit Family Medicine Srini Draper MD [address] [place] [phone] 06/16/2023 [facility] Pharmacist, [address] [phone] 06/23/2023 Office Visit Otolaryngology Keely Tanner PA-C [address] [place] [address] 07/17/2023 Office Visit Cardiology Srini Doyle, DO [address] [place] [address] 09/13/2023 Office Visit Cardiology Srini Doyle, DO [address] [place] [address] 11/20/2023 Office Visit Family Medicine Yaya Frederick MD [address] [place] [address] 12/01/2023 Office Visit Hematology Oncology Agustín Sullivan MD [address] [place] [address] 12/04/2023 Office Visit Cardiology Bucky Calvo PA-Zahida [address] [place] [phone] Scheduled Orders Name Type Priority Associated Diagnoses Orde r Schedule MYCODE SUBSEQUENT ADULT Lab Routine MyCode Research Other*[id number] Every 6 Months for 2 Occurrences starting 06/14/2023 until 07/03/2024 Health Maintenance Due Date Last Done Comments Zoster Vaccines (1 of 2) 1954 *BISPHONATE OR OTHER ACCEPTABLE MEDICATION NEEDED FOR OSTEOPOROSIS (REFER TO SMARTSET #1146) 10/24/2021 Influenza Vaccine (FLU shot) (#1) 2023 07/04/2022, 07/19/2021, 07/19/2021, Additional history exists Depression Screening, Annual for Pts 12 and Over 02/09/2024 02/08/2023 Albumin/Creatinine Ratio 05/01/2024 023, 07/04/2022, 12/02/2010, Additional history exists CKD PHOS USE SMARTSET 46013 05/01/202404/22, 11/04/2022, 02/14/2019 CKD HGB USE SMARTSET 45385 06/13/202406/13, 06/13/2023, 05/15/2023, Additional history exists DXA Scan 11/09/2024 11/09/2022, 01/21, 11/03/2015, Additional history exists DTaP,Tdap,and Td Vaccines (3 - Td or Tdap) 06/04/2029 06/04/2019, 01/28/2019, 05/26/2008 Pneumococcal Vaccine: 65+ Years Completed 05/24/2016, 11/14/2001 COVID-19 Vaccine Completed 09/29/2022, , 01/05/2021, Additional history exists VITAMIN D LEVEL ONCE IN A LIFETIME-USE SMARTSET# 50543 Completed 05/01/2023, 11/04/2022, 02/14/2019, Additional history exists [...] as of this encounter Visit Diagnoses Diagnosis MyCode Research Other*[id number] documented in this encounter Additional Health Concerns Infection Onset Date Last Indicated Resolved Time Varicella zoster 08/01/2022 08/01/2022 ESBL 01/26/2023 05/31/2023 documented as of this encounter Care Teams Regional Agronomist Relationship Specialty Start Date End Date Yaya Frederick MD [address] [place] [phone] PCP - General Family Medicine 05/04/21 documented as of this encounter
--- OUTSIDE RECORDS SUMMARY | 2023-09-12 22:31 | External Medical Summary ---
Author Name Unknown Address Unknown Organization K01:[facility] [place] - [address] [place] [id number] Laboratory Report Ordering Provider Test Date Status ERENDIRA CÁRDENAS 06/15/2023 11:47:24 Final Observation Date Value Abnormality Reference (Units ) Status BUN 06/15/2023 11:47:24 45 Above high normal 6-20 (mg/dL) Final Creatinine 06/15/2023 11:47:24 1.9 Above high normal 0.5-1.0 (mg/dL) Final Glomerular filtration rate/1.73 sq M.predicted [Volume Rate/Area] in Serum, Plasma or Blood by Creatinine-based formula (CKD-EPI) 06/15/2023 11:47:24 25 Below low normal >=60 (mL/min) Final eGFR is calculated based on the CKD-EPI 2020 equation SODIUM 06/15/2023 11:47:24 143 135-146 (m mol/L) Final Potassium 06/15/2023 11:47:24 4.2 3.5-5.1 (m mol/L) Final Cl 06/15/2023 11:47:24 96 Below low normal 98- 107 (mmol/L) Final CO2 06/15/2023 11:47:24 33 Above high normal 22 -32 (mmol/L) Final Anion gap 06/15/2023 11:47:24 14 7-15 (mmol /L) Final Glucose 06/15/2023 11:47:24 110 70-120 (mg /dL) Final Calcium 06/15/2023 11:47:24 10.2 8.4-10.2 ( mg/dL) Final Performing Location [facility] - [address] [place] [id number]
--- OUTSIDE RECORDS SUMMARY | 2023-09-12 22:31 | External Medical Summary | Summary of Care ---
Author Name Unknown Organization [facility] Address [address] [facility] [address] Phone [phone] Care Team Providers Care Tracer Clerk Name Role Phone Yaya Frederick MD Primary Care Provider [phone] Reason for Visit * Reason Comments Dosage Adjustment Via Phone (anticoag Cl inic) Encounter Details Date Type Department Care Team Description 06/14/2023 Anticoagulation Pharmacy [address] [phone] Pharmacist2, [facility] [address] [address] S/P aortic valve replacement* Allergies Active Allergy [...] SolutionIndications:P ost-nasal discharge Administer into nostril 1 [place] in the morning AND 1 [place] before bedtime. 30 mL 0 11/30/2021 Active Fexofenadine HCl 180 MG Oral Tablet (Lizzette) Take by mouth 1 Tablet daily as needed for Allergies. 90 Tablet 0 01/21/2022 Active Ipratropium [place] 0.03 % Nasal Solution Administer into each [...] situ 04/17/2014 Sinus node dysfunction 04/17/2014 rn intake current use of anticoagulant t herapy 11/12/2010 [...] Stent Restenosis in Drug-Eluting Stents Project # [id number] Electromechanical Equipment Tester: Wilda Serrano MD [phone] GENOMICS CARDIO RESEARCH OTHER*[id number] 200611/29/2016 Overview: Renamed Per Clinical Trials Billing Project. 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 # [id number] Electromechanical Equipment Tester: Wilda Serrano MD [phone] Type 2 diabetes mellitus wit h hemoglobin A1c goal of less than 7.0% 11/03/2006 08/15/2007 Overview: ICD-10 update of inactive term PURE HYPERCHOLESTEROLEM 11/03/2006 10/01/20 09 Overview: Per Lipid Taxonomy. 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/2008 rn intake current use of anticoagulant therapy 0 05/05/2006 [...] this encounter Progress Notes * Raquel Alcantara, [facility] - 06/14/2023 2:57 PM EDT Medication Therapy Disease Management - Anticoagulation Patient: Shannon Cruz | : 1935 Subjective Contacts Type Contact Phone/Fax 06/14/2023 02:57 PM EDT Phone (Outgoing) Shannon Cruz (Self) [phone] (H) Left Message 06/14/2023 03:01 PM EDT Phone (Outgoing) Shannon Cruz (Self) [phone] (H) Patient-Reported Symptoms: Patient Findings Negatives: Signs/symptoms of thrombosis, Signs/symptoms of bleeding, Change in health, Change in alcohol use, Change in activity, Upcoming invasive procedure, Missed doses, Extra doses, Change in medications, Change in diet/appetite, Bruising Objective Current Warfarin Dose As of 06/14/2023 Warfarin maintenance plan: 0 mg every Wed; 1.25 mg (2.5 mg x 0.5) all other days INR Result As of 06/14/2023 INR goal: 2.0-3.0 INR used for dosin.0 (06/13/2023) Assessment & Plan Warfarin Plan As of 06/14/2023 Full warfarin instructions: 0 mg every Wed; 1.25 mg all other days No change documented: Raquel Alcantara RPh Next INR check: 07/12/2023 Repeat PT/INR in 4 week(s) Weekly dose: not changed Additional Dosing Information: Description Sent orders to [facility] at Fax#: [phone] Please call results to [facility] at Or Fax to [phone] Raquel Alcantara RPh Clinical Pharmacist 06/14/2023, 2:57 PM documented in this encounter Plan of Treatment Upcoming Encounters Date Type Specialty Care Team Description 06/15/2023 Office Visit Family Medicine Srini Draper MD [address] [place] [phone] 06/23/2023 Office Visit Otolaryngology Keely Tanner PA-C [address] [place] [phone] 07/12/2023 Anticoagulation Pharmacy Pharmacist, [facility] [address] [place] [address] 07/17/2023 Office Visit Cardiology Srini Doyle, [address] [place] [address] 09/13/2023 Office Visit Cardiology Srini Doyle DO [address] [place] [address] 11/20/2023 Office Visit Family Medicine [facility]aya [facility] [address] [facility] [address] 12/01/2023 [facility]cology [facility]ust[facility] [address] [facility] [address] 12/04/2023 Office Visit Cardiology Bucky Calvo PA-Zahida [address] [place] [address] Health Maintenance Due Date Last Done Comments Zoster Vaccines (1 of 2) 1954 *BISPHONATE OR OTHER ACCEPTABLE MEDICATION NEEDED FOR OSTEOPOROSIS (REFER TO SMARTSET #1146) 10/24/2021 Influenza Vaccine (FLU shot) (#1) 2023 07/04/2022, 07/19/2021, 07/19/2021, Additional history exists Depression Screening, Annual for Pts 12 and Over 02/09/2024 02/08/2023 Albumin/Creatinine Ratio 05/01/2024 023, 07/04/2022, 12/02/2010, Additional history exists CKD PHOS USE SMARTSET 70840 05/01/202404/22, 11/04/2022, 02/14/2019 CKD HGB USE SMARTSET 43656 06/13/202406/13, 06/13/2023, 05/15/2023, Additional history exists DXA Scan 11/09/2024 11/09/2022, 01/21, 11/03/2015, Additional history exists DTaP,Tdap,and Td Vaccines (3 - Td or Tdap) 06/04/2029 06/04/2019, 01/28/2019, 05/26/2008 Pneumococcal Vaccine: 65+ Years Completed 05/24/2016, 11/14/2001 COVID-19 Vaccine Completed 09/29/2022, , 01/05/2021, Additional history exists VITAMIN D LEVEL ONCE IN A LIFETIME-USE SMARTSET# 37665 Completed 05/01/2023, 11/04/2022, 02/14/2019, Additional history exists [...] documented as of this encounter Care Teams Tracer Clerk Relationship Specialty Start Date End Date Yaya Frederick MD [address] [place] [phone] PCP - General Family Medicine 05/04/21 documented as of this encounter"
--- OUTSIDE RECORDS SUMMARY | 2023-09-12 22:31 | External Medical Summary | Summary of Care ---
Author Name Unknown Organization [facility] Address [address] [place] [address] Phone [phone] Care Team Providers Care [employer] Librarian Name Role Phone Yaya Frederick MD Primary Care Provider [phone] Reason for Referral * Evaluate & Treat - Unlimited Visits (Within 10 days (routine)) - Pending Review Specialty Diagnoses / Procedures Referred By Shellie lake Referred To Contact Nephrology Diagnoses RADHA (acute kidney injury) ([facility]) Oneida Briggs PA-C [address] [place] [id number] Referral ID Status Reason Start Date Expiration Date Visits Requested Visits Authorized [id number] Pending Review Specialty Services Required 06/15/[phone] Question Answer Referral Priority Within 10 days (routine) What condition is this patient being seen for? Acute kidney injury Reason for Visit * Reason Comments Hospital Follow-Up Was in [facility] Encounter Details Date Type Department Care Team Description 06/15/2023 Office Visit [address] [phone] Srini Draper MD [address] [place] [phone] RADHA (acute kidney injury) ([facility])*; Heart failure with reduced ejection fraction ([facility]) Allergies Active Allergy Reactions Severity [...] SolutionIndications:P ost-nasal discharge Administer into nostril 1 [place] in the morning AND 1 [place] before bedtime. 30 mL 0 11/30/2021 Active Fexofenadine HCl 180 MG Oral Tablet (Lizzette) Take by mouth 1 Tablet daily as needed for Allergies. 90 Tablet 0 01/21/2022 Active Ipratropium [place] 0.03 % Nasal Solution Administer into each [...] in situ 04/17/2014 Sinus node dysfunction 04/17/2014 intermission coordinator current use of anticoagulant t herapy 11/12/2010 [...] Stent Restenosis in Drug-Eluting Stents Project # Front Desk Receptionist: Wilda Serrano MD [phone] GENOMICS CARDIO RESEARCH OTHER*[id number] 200611/29/2016 Overview: Renamed Per Clinical Trials Billing Project. 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 # Front Desk Receptionist: Wilda Serrano MD [phone] Type 2 diabetes mellitus wit h hemoglobin A1c goal of less than 7.0% 11/03/2006 08/15/2007 Overview: ICD-10 update of inactive term PURE HYPERCHOLESTEROLEM 11/03/2006 10/01/20 09 Overview: Per Lipid Taxonomy. 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/2008 intermission coordinator current use of anticoagulant therapy 0 05/05/2006 [...] mRNA, LNP-s, No Pre serve, 2-Dose Series ([employer]) 09/13/2021,01/05/2021,12/15/2020 Covid-19, Mrna, Lnp-s, Pf, B ivalent, [...] Sign Reading Time Taken Comments Blood Pressure 116/70 06/15/2023 9:56 AM EDT Pulse 78 06/15/2023 9:56 AM EDT Temperature 36 C (96.8 F) 06/15/2023 9:56 AM EDT Respiratory Rate 20 06/15/2023 9:56 AM EDT Oxygen Saturation 99% 06/15/2023 9:56 AM EDT Inhaled Oxygen Concentration - - Weight 77.1 kg (170 lb) 06/15/2023 9:56 AM EDT Height - - Body Mass Index 34.32 02/24/2023 10:21 AM EDT documented in this encounter Patient Instructions * Patient Instructions* Oneida Briggs PA-C - 06/15/2023 11:37 AM EDT Continue to hold losartan and spironolactone Continue torsemide M,W,F Fluid restriction 1500ml/day documented in this encounter Progress Notes * Oneida Briggs PA-C - 06/15/2023 10:36 AM EDT Images from the original note were not included. History of Present Illness Shannon Cruz is a 88 year old female that presents for Hospital Follow-Up (Was in [facility]/) Patient presents today with her son for a follow-up visit after being discharged from [facility] on June 10 (admitted 06/05). I have reviewed discharge summary as well as labs including BMPs during hospitalization. Patient was admitted for NSTEMI and CHF exacerbation. During hospitalization, she was placed on Lasix drip. Her creatinine increased to 2.16 on 06/10. Her losartan and spironolactone were held. She was evaluated by Cardiology and cardiac catheterization was considered but she wasdeemed to be not a good candidate per her son. She was started on 20 mg of torsemide daily as well Imdur 60 mg daily. During hospitalization, the patient was treated with ertapenem for ESBL UTI. Patient also discussed a previous hospitalization from May 02 through where she was hospitalized for AL and CVA. Patient and her son report patient has been doing well since discharge. Patient admits that she is afraid to drink to much fluid and therefore has had minimal fluid intake she has been taking torsemide 20 mg daily on Monday, Monday, and Monday only. On 06/13, her creatinine was 2.0. She denies any chest pain since hospital discharge. Patient denies any urinary symptoms. Chronically wears oxygen at 2LNC Physical Exam Vitals: 06/15/23 0956 Temp: 36 C (96.8 F) Pulse: 78 Resp: 20 SpO2: 99% BP: 116/70 Physical Exam Vitals reviewed. General: alert, healthy, and no distress Heart: Irregularly irregular, rate controlled. No lower extremity edema Lungs: chest symmetric with normal AP diameter, no chest deformities noted, no chest wall tenderness, lungs clear to auscultation Abdomen: abdomen soft, non-tender, normal bowel sounds, and no masses or organomegaly Extremities: less than 2 second capillary refill, no joint deformities, effusion, or inflammation Neuro Exam: alert & oriented x 3 with fluent speech, no focal motor/sensory deficits Mildly hypovolemic I have reviewed the following results: Assessment and Plan There are no diagnoses linked to this encounter. Wrap-Up Plan: RADHA: Patient's creatinine on 06/13 is 2.0. Creatinine on 05/09 was 1.12. Creatinine on discharge, 06/10 was 2.16. Referral to Nephrology placed. We will repeat creatinine today. Urine, labs, and renalultrasound ordered Nephrology referral. Education given regarding adequate fluid intake. Patient admits she has been afraid to have any fluid because of the CHF exacerbation. I explained to patient that she needs to continue good p.o. fluid intake and not exceed 1500 mL/day. Continue to hold losartan and spironolactone HFrEF, CAD, chronic atrial fibrillation: Patient has follow-up appointment with Cardiology on July 17. Continue torsemide 20mg M,W,F Patient on warfarin, most recent INR 3.0 per patient Regarding thrombocytopenia, message sent to Dr. Sullivan, hematology to be sure dosage adjustment of hydroxyurea isn't needed in setting of RADHA. documented in this encounter Nursing Notes * Shelly Churchill LPN - 06/15/2023 10:03 AM EDT Chief Complaint Patient presents with Hospital Follow-Up Was in [facility] documented in this encounter Miscellaneous Notes * Pt Handout (on AVS) - Oneida Briggs PA-C - 06/15/2023 10:50 AM EDT DM18 Heart Failure: Breathe More Easily One of the early symptoms of heart failure is shortness of breath. When your heart can't work well enough to pump the blood out of your heart, blood backs up in the blood vessels leading to the lungs. Fluid then leaks from your blood vessels into the air sacs in your lungs. This makes it hard for oxygen to enter the blood. This causes shortness of breath. You may be out of breath when you exert yourself. This includes carrying groceries or going up stairs. You may also feel this way when you are at rest . And even at night when sleeping or lying down. Doing these things can help you breathe more easily: Eat a healthy diet and don't use salt (sodium). Many prepared and fast foods already have high amounts of salt added. So it's important to read food labels. Water and salt tend to travel together.So reducing salt will reduce the amount of fluid your body retains. Talk with your healthcare provider about the best ways to limit salt. You may have to reduce the number of meals you eat out. When you do eat out, ask for your food to be made without added salt. Vcva-xth-kkxjxnn medicines often have added salt. So read the labels on these medicines. Pay attention to what your body is telling you. If you become tired during an activity, stop andrest. You can always finish a task later. If you feel unusual chest pain, or your typical chest pain that doesn't resolve like it normally does, stop what you are doing and call 911. Weigh yourself. Do this every day. Or as often as your provider tells you to. Weigh yourself at the same time each day. The best time is when you wake up, right after urinating, and before breakfast. Sudden weight gain may mean that your heart is having trouble. Call your provider if you gain more than 2 pounds in a day or 5 pounds in a week. Or whatever amount your provider has asked you to report. Sleep with a few pillows propped behind your head and shoulders. This can make it easier to breathe at night. You may notice that you need to use many pillows to help you breathe easily. Or more pillows than normal. If so, call your healthcare provider right away. Take your heart failure medicines as prescribed. They will help ease stress on your heart. And keep your lungs from becoming congested with retained fluid. Pay attention to your feet. Be aware if your ankles start swelling. Or you can't put your shoes on. Call your provider right away. Find a safe activity level. Talk with your healthcare provider about what activity level is safefor you. Your provider can help you figure out what you can and can't do. Work with your provider to create an exercise program. Then exercise every day. This will strengthen your heart and lungs. And it will help reduce the amount of fluid that seeps into your lungs. Cardiac rehab may be a good form of watched activity for you. Shortness of breath can be a serious problem. Call 911 if you notice severe shortness of breath. Orif you feel breathless while at rest when you never have before. Last Reviewed Date: 04/22/202319996020-9250 [employer]. All rights reserved. This information is not intended as a substitute for professional medical care. Always follow your healthcare professional's instructions. * Pt Handout (on AVS) - Oneida Briggs PA-C - 06/15/2023 10:49 AM EDT Images from the original note were not included. [address]24 Coping with Heart Failure It?s normal to feel sad or down at times when you?re living with heart failure. Some medicines can also affect your mood. Following your treatment plan may seem difficult at times. If you feel overwhelmed, just focus on one day at a time. Don?t be afraid to ask others for help when you need it. Ways to feel better Try not to withdraw from family and friends, even if you're finding it hard to talk to them. They can still be a good source of support. To feel better, you can also: Spend time doing things you enjoy. This may include taking part in a favorite hobby, meditating,praying, or spending time with people you care about. Find activities that make you happy. And makethose a priority. Share what you learn about heart failure with the people in your life. Invite family members along when you visit your healthcare provider. This will help you feel supported. And it will help you discuss the care plan you've agreed upon with your provider. Think about joining a support group for people with heart failure. It may be easier to talk to people who know firsthand what you?re going through. They can offer advice and share stories. You maywant to ask loved ones to join you for a meeting. Asking for help Having heart failure doesn?t mean that you have to feel bad all the time. Think about talking to your healthcare provider or a therapist if: You feel worthless or helpless, or are thinking about suicide. These are warning signs of depression. Treatment can help you feel better. When depression is under control, your overall health may also improve. You feel anxious about what will happen to your loved ones if your health gets worse. Taking care of legal arrangements, such as a living will and durable power of machine inspector, can help you feel moresecure about the future. You feel stressed or alone. Social support helps reduce stress and helps you stick with your healthy lifestyle changes. Without social support, you may end up back in the hospital. Last Reviewed Date: 07/23/202119998052-3956 [employer]. All rights reserved. This information is not intended as a substitute for professional medical care. Always follow your healthcare professional's instructions. documented in this encounter Plan of Treatment Upcoming Encounters Date Type Specialty Care Team Description 06/20/2023 Imaging Radiology 06/23/2023 [facility] [address] [facility] [address] 06/23/2023 Office Visit Otolaryngology Keely Tanner PA-C [address] [place] [address] 06/30/2023 Office Visit Family Medicine Srini Draper MD [address] [place] [id number] 07/12/2023 [facility] Pharmacist1, [address] [address] 07/17/2023 Office Visit Cardiology Srini Doyle, DO [address] [place] [address] 09/13/2023 Office Visit Cardiology Srini Doyle, DO [address] [place] [address] 11/20/2023 Office Visit Family Medicine Yaya Frederick MD [address] [place] [address] 12/01/2023 Office Visit Hematology Oncology Agustín Sullivan MD [address] [place] [address] 12/04/2023 Office Visit Cardiology Bucky Calvo PA-Zahida [address] [place], [place] [address] Pending Results Name Type Priority Associated Diagnoses Date /Time BASIC METABOLIC PANEL Lab Routine RADHA (acute kidney injury) (HCC) 06/15/2023 11:47 AM EDT Scheduled Orders Name Type Priority Associated Diagnoses Orde r Schedule BASIC METABOLIC PANEL Lab Routine RADHA (acute kidney injury) ([facility]) Expected: 06/15/2023 (Approximate), Expires: 06/14/2024 URINALYSIS, REFLEX TO MICROSCOPIC Lab Routine RADHA (acute kidney injury) (HCC) Expected: 06/15/2023, Expires: 06/15/2024 ALBUMIN / CREATININE RATIO, URINE Lab Routine RADHA (acute kidney injury) (HCC) Expected: 06/15/2023, Expires: 06/15/2024 US RENAL Medical Imaging Routine RADHA (acute kidney injury) ([facility]) Expected: 06/22/2023, Expires: 07/16/2024 Scheduled Referrals Name Type Priority Associated Diagnoses Orde r Schedule NEPHROLOGY REFERRAL OP Referral Within 10 days (routine) RADHA (acute kidney injury) (HCC) Ordered: 06/15/2023 Health Maintenance Due Date Last Done Comments Zoster Vaccines (1 of 2) 1954 *BISPHONATE OR OTHER ACCEPTABLE MEDICATION NEEDED FOR OSTEOPOROSIS (REFER TO SMARTSET #1146) 10/24/2021 Influenza Vaccine (FLU shot) (#1) 2023 07/04/2022, 07/19/2021, 07/19/2021, Additional history exists Depression Screening, Annual for Pts 12 and Over 02/09/2024 02/08/2023 Albumin/Creatinine Ratio 05/01/2024 023, 07/04/2022, 12/02/2010, Additional history exists CKD PHOS USE SMARTSET 48579 05/01/202404/22, 11/04/2022, 02/14/2019 CKD HGB USE SMARTSET 66102 06/13/202406/13, 06/13/2023, 05/15/2023, Additional history exists DXA Scan 11/09/2024 11/09/2022, 01/21, 11/03/2015, Additional history exists DTaP,Tdap,and Td Vaccines (3 - Td or Tdap) 06/04/2029 06/04/2019, 01/28/2019, 05/26/2008 Pneumococcal Vaccine: 65+ Years Completed 05/24/2016, 11/14/2001 COVID-19 Vaccine Completed 09/29/2022, , 01/05/2021, Additional history exists VITAMIN D LEVEL ONCE IN A LIFETIME-USE SMARTSET# 64938 Completed 05/01/2023, 11/04/2022, 02/14/2019, Additional history exists [...] injury) (HCC)- Primary Acute kidney failure, unspecified Heart failure with reduced ejection fraction (HCC) documented in this encounter Additional Health Concerns Infection Onset Date Last Indicated Resolved Time Varicella zoster 08/01/2022 08/01/2022 ESBL 01/26/2023 05/31/2023 documented as of this encounter Care Teams Middle [employer] Librarian Relationship Specialty Start Date End Date Yaya Frederick MD [address] [place] [address] PCP - General Family Medicine 05/04/21 documented as of this encounter
--- OUTSIDE RECORDS SUMMARY | 2023-09-12 22:31 | External Medical Summary | Summary of Care ---
Author Name Unknown Organization [facility] Address [address] [facility] [place] [address] Phone [phone] Care Team Providers Care Teradata Developer Name Role Phone Yaya Frederick MD Primary Care Provider [phone] Reason for Visit * Reason Comments Outpatient Testing Encounter Details Date Type Department Care Team Description 06/13/2023 Laboratory [facility] [phone] [address] S/P aortic valve replacement; Essential thrombocythemia (HCC); Dyslipidemia, goal LDL below 70 Allergies Active Allergy Reactions Severity Noted Date [...] SolutionIndications:P ost-nasal discharge Administer into nostril 1 [place] in the morning AND 1 [place] before bedtime. 30 mL 0 11/30/2021 Active Fexofenadine HCl 180 MG Oral Tablet (Lizzette) Take by mouth 1 Tablet daily as needed for Allergies. 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 # [id number] [employer] Supervisor: Wilda Serrano MD [phone] Type 2 diabetes mellitus wit h hemoglobin A1c goal of less than 7.0% 11/03/2006 08/15/2007 Overview: ICD-10 update of inactive term PURE HYPERCHOLESTEROLEM 11/03/2006 10/01/20 09 Overview: Per Lipid Taxonomy. 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 0 [...] Visit Family Medicine Srini Draper MD [address] [place] [address] 06/15/2023 Laboratory Laboratory [place] [address] [place] [address] 06/16/2023 Anticoagulation Pharmacy Pharmacist, [facility] [address] [place] [address] 06/23/2023 Office Visit Otolaryngology Keely Tanner PA-C [address] [place] [address] 07/17/2023 Office Visit Cardiology Srini Doyle DO [address] [place] [address] 09/13/2023 Office Visit Cardiology Srini Doyle DO [address] [place] [address] 11/20/2023 Office Visit Family Medicine Yaya Frederick MD [address] [place] [address] 12/01/2023 Office Visit Hematology Oncology [facility] [address] [facility] [address] 12/04/2023 Office Visit Cardiology Bucky Calvo PA-C [address] [place] [address] Pending Results Name Type Priority Associated Diagnoses Date /Time PT INR Lab Routine S/P aortic valve replacement 06/13/2023 9:26 AM EDT CBC WITH WBC DIFFERENTIAL Lab STAT Essential thrombocythemia (HCC) 06/13/2023 9:26 AM EDT BASIC METABOLIC PANEL Lab Routine Dyslipidemia, goal LDL below 70 06/13/2023 9:26 AM EDT CBC Lab STAT Essential thrombocythemia (HCC) 06/13/2023 9:26 AM EDT DIFFERENTIAL, AUTOMATED Lab STAT Essential thrombocythemia ([facility]) 06/13/2023 9:26 AM EDT Health Maintenance Due Date Last Done Comments Zoster Vaccines (1 of 2) 1954 *BISPHONATE OR OTHER ACCEPTABLE MEDICATION NEEDED FOR OSTEOPOROSIS (REFER TO SMARTSET #1146) 10/24/2021 Influenza Vaccine (FLU shot) (#1) 2023 07/04/2022, 07/19/2021, 07/19/2021, Additional history exists Depression Screening, Annual for Pts 12 and Over 02/09/2024 02/08/2023 Albumin/Creatinine Ratio 05/01/2024 023, 07/04/2022, 12/02/2010, Additional history exists CKD PHOS USE SMARTSET 44395 05/01/2024 07/1 , 11/04/2022, 02/14/2019 CKD HGB USE SMARTSET 13522 05/15/202405/15, 05/15/2023, 05/11/2023, Additional history exists DXA Scan 11/09/2024 11/09/2022, 01/21, 11/03/2015, Additional history exists DTaP,Tdap,and Td Vaccines (3 - Td or Tdap) 06/04/2029 06/04/2019, 01/28/2019, 05/26/2008 Pneumococcal Vaccine: 65+ Years Completed 05/24/2016, 11/14/2001 COVID-19 Vaccine Completed 09/29/2022, , 01/05/2021, Additional history exists VITAMIN D LEVEL ONCE IN A LIFETIME-USE SMARTSET# [id number] Completed 05/01/2023, 11/04/2022, 02/14/2019, Additional history exists [...] other means Essential thrombocythemia (HCC) Essential thrombocythemia Dyslipidemia, goal LDL below 70 Other and unspecified hyperlipidemia documented in this encounter Additional Health Concerns Infection Onset Date Last Indicated Resolved Time Varicella zoster 08/01/2022 08/01/2022 ESBL 01/26/2023 05/31/2023 documented as of this encounter Care Teams Teradata Developer Relationship Specialty Start Date End Date Yaya Frederick MD [address] [place] [phone] PCP - General Family Medicine 05/04/21 documented as of this encounter
--- OUTSIDE RECORDS SUMMARY | 2023-09-12 22:31 | External Medical Summary | Summary of Care ---
Author Name Unknown Organization [facility] Address [address] [place] [address] Phone [phone] Care Team Providers Care Senior Financial Name Role Phone Yaya Frederick MD Primary Care Provider [phone] Reason for Referral * Evaluate & Treat - Unlimited Visits (Within 10 days (routine)) - Pending Review Specialty Diagnoses / Procedures Referred By Shellie lake Referred To Contact Nephrology Diagnoses RADHA (acute kidney injury) (FORMERLY [facility]) Oneida Briggs PA-C [address] [place] [address] Referral ID Status Reason Start Date Expiration Date Visits Requested Visits Authorized [id number] Pending Review Specialty Services Required 06/15/[phone] Question Answer Referral Priority Within 10 days (routine) What condition is this patient being seen for? Acute kidney injury Reason for Visit * Reason Comments Hospital Follow-Up Was in [facility] Encounter Details Date Type Department Care Team Description 06/15/2023 Office Visit [address] [address] Srini Draper MD [address] [place] [phone] RADHA (acute kidney injury) (FORMERLY [facility])*; Heart failure with reduced ejection fraction ([facility]) Allergies Active Allergy Reactions Severity Noted Date [...] SolutionIndications:P ost-nasal discharge Administer into nostril 1 [place] in the morning AND 1 [place] before bedtime. 30 mL 0 11/30/2021 Active Fexofenadine HCl 180 MG Oral Tablet (Lizzette) Take by mouth 1 Tablet daily as needed for Allergies. 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 # Balance Recesser: Wilda Serrano MD [phone] Type 2 diabetes mellitus wit h hemoglobin A1c goal of less than 7.0% 11/03/2006 08/15/2007 Overview: ICD-10 update of inactive term PURE HYPERCHOLESTEROLEM 11/03/2006 10/01/20 09 Overview: Per Lipid Taxonomy. 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 I have [...] 02 through where she was hospitalized for [place] and CVA. Patient and her son report [...] presents with Hospital Follow-Up Was in [place] documented in this encounter Miscellaneous Notes * [...] food to be made without added salt. [id number] medicines often have added salt. So read [...] you never have before. Last Reviewed Date: 04/22/202319993680-0361 [employer]. All rights reserved. This information is not intended as a substitute for professional medical care. Always follow your healthcare professional's instructions. * Pt Handout (on AVS) - Oneida Briggs PA-C - 06/15/2023 10:49 AM EDT Images from the original note were not included. [id number] Coping with Heart Failure It?s normal to [...] a living will and durable power of trust and estates attorney, can help you feel moresecure about the future. You feel stressed or alone. Social support helps reduce stress and helps you stick with your healthy lifestyle changes. Without social support, you may end up back in the hospital. Last Reviewed Date: 07/23/202119999326-3916 [employer] All rights reserved. This information is not intended as a substitute for professional medical care. Always follow your healthcare professional's instructions. documented in this encounter Plan of Treatment Upcoming Encounters Date Type Specialty Care Team Description 06/20/2023 Imaging Radiology 06/23/2023 Office Visit [facility] [address] [facility] [address] 06/23/2023 Office Visit Otolaryngology Keely Tanner PA-C [address] [place] [address] 06/30/2023 Office Visit Family Medicine Srini Draper MD [address] [place] [phone] 07/12/2023 Formerly [facility] Pharmacist1, [address] [address] 07/17/2023 Office Visit Cardiology Srini Doyle, DO [address] [place] [address] 09/13/2023 Office Visit Cardiology Srini Doyle, DO [address] [place] [address] 11/20/2023 Office Visit Family Medicine Yaya Frederick MD [address] [place] [address] 12/01/2023 Office Visit Hematology Oncology Agustín Sullivan MD [address] [place] [address] 12/04/2023 Office Visit Cardiology Bucky Calvo PA-Zahida [address] [place], [place] [address] Pending Results Name Type Priority Associated Diagnoses Date /Time BASIC METABOLIC PANEL Lab Routine RADHA (acute kidney injury) (HCC) 06/15/2023 11:47 AM EDT Scheduled Orders Name Type Priority Associated Diagnoses Orde r Schedule BASIC METABOLIC PANEL Lab Routine RADHA (acute kidney injury) ([facility]) Expected: 06/15/2023 (Approximate), Expires: 06/14/2024 URINALYSIS, REFLEX TO MICROSCOPIC Lab Routine RADHA (acute kidney injury) (HCC) Expected: 06/15/2023, Expires: 06/15/2024 ALBUMIN / CREATININE RATIO, URINE Lab Routine RADHA (acute kidney injury) (HCC) Expected: 06/15/2023, Expires: 06/15/2024 US RENAL Medical Imaging Routine RADHA (acute kidney injury) ([facility]) Expected: 06/22/2023, Expires: 07/16/2024 Scheduled Referrals Name [...] Additional history exists CKD PHOS USE SMARTSET 71492 05/01/202404/22, 11/04/2022, 02/14/2019 CKD HGB USE SMARTSET 69985 06/13/202406/13, 06/13/2023, 05/15/2023, Additional history exists DXA Scan 11/09/2024 11/09/2022, 01/21, 11/03/2015, Additional history exists DTaP,Tdap,and Td Vaccines (3 - Td or Tdap) 06/04/2029 06/04/2019, 01/28/2019, 05/26/2008 Pneumococcal Vaccine: 65+ Years Completed 05/24/2016, 11/14/2001 COVID-19 Vaccine Completed 09/29/2022, , 01/05/2021, Additional history exists VITAMIN D LEVEL ONCE IN A LIFETIME-USE SMARTSET# 71312 Completed 05/01/2023, 11/04/2022, 02/14/2019, Additional history exists [...] documented as of this encounter Care Teams Senior Financial Relationship Specialty Start Date End Date Yaya Frederick MD [address] [place] [address] PCP - General Family Medicine 05/04/21 documented as of this encounter
--- OUTSIDE RECORDS SUMMARY | 2023-09-12 22:31 | External Medical Summary ---
Author Name Unknown Address Unknown Organization K01:[facility]ORY [facility] - [address] [place] [address] Laboratory Report Ordering Provider Test Date Status ERENDIRA CÁRDENAS 06/15/2023 13:23:32 Final Normal: <30 mg/g creatinine< br/>High: 30-300 mg/g creatinine
Very High: >300 mg/g creatinine
Nephrotic: >2200 mg/g creatinine Observation Date Value Abnormality Reference (Units ) Status Albumin, Urine 06/15/2023 13:23:32 15.82 (mg/dL) Final Creatinine, Urine 06/15/2023 13:23:32 95 (mg/dL) Final Albumin/Creatinine [Mass Ratio] in Urine 06/15/2023 13:23:32 167 Above high normal <30 (mg/g Creat) Final Performing Location [facility] - [address] [place] [address]
--- OUTSIDE RECORDS SUMMARY | 2023-09-12 22:31 | External Medical Summary | Summary of Care ---
Author Name Unknown Organization [facility] Address [address] [facility] [place] [address] Phone [phone] Care Team Providers Care Mobility Developer Name Role Phone Yaya Frederick MD Primary Care Provider [phone] Reason for Visit * Reason Comments Outpatient Testing Encounter Details Date Type Department Care Team Description 06/15/2023 Laboratory [facility] [phone] [id number] RADHA (acute kidney injury) ([facility]) Allergies Active Allergy Reactions Severity Noted Date [...] SolutionIndications:P ost-nasal discharge Administer into nostril 1 [place] in the morning AND 1 [place] before bedtime. 30 mL 0 11/30/2021 Active Fexofenadine HCl 180 MG Oral Tablet (Lizzette) Take by mouth 1 Tablet daily as needed for Allergies. 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 # [id number] Water Chemist: Wilda Serrano MD [phone] Type 2 diabetes mellitus wit h hemoglobin [...] mRNA, LNP-s, No Pre serve, 2-Dose Series ([employer]) 09/13/2021,01/05/2021,12/15/2020 Covid-19, Mrna, Lnp-s, Pf, B ivalent, [...] Visit Nephrology [facility] [address] [facility] [address] 06/23/2023 Office Visit Otolaryngology Keely Tanner PA-C [address] [place] [address] 06/30/2023 Office Visit Family Medicine Srini Draper MD [address] [place] [address] 07/12/2023 Anticoagulation Pharmacy Pharmacist1, [facility] [address] [place] [address] 07/17/2023 Office Visit Cardiology Srini Doyle, DO [address] [place] [address] 09/13/2023 Office Visit Cardiology Srini Doyle, DO [address] [place] [address] 11/20/2023 Office Visit Family Medicine Yaya Frederick MD [address] [place] [address] 12/01/2023 Office Visit Hematology Oncology Agustín Sullivan MD [address] [place] [address] [place] [phone] 12/04/2023 Office Visit Cardiology Bucky Calvo PA-C [address] [place] [address] Pending Results Name Type Priority Associated Diagnoses [...] Additional history exists CKD PHOS USE SMARTSET 49291 05/01/202404/22, 11/04/2022, 02/14/2019 CKD HGB USE SMARTSET 34304 06/13/202406/13, 06/13/2023, 05/15/2023, Additional history exists DXA Scan 11/09/2024 11/09/2022, 01/21, 11/03/2015, Additional history exists DTaP,Tdap,and Td Vaccines (3 - Td or Tdap) 06/04/2029 06/04/2019, 01/28/2019, 05/26/2008 Pneumococcal Vaccine: 65+ Years Completed 05/24/2016, 11/14/2001 COVID-19 Vaccine Completed 09/29/2022, , 01/05/2021, Additional history exists VITAMIN D LEVEL ONCE IN A LIFETIME-USE SMARTSET# 82753 Completed 05/01/2023, 11/04/2022, 02/14/2019, Additional history exists [...] documented as of this encounter Care Teams Mobility Developer Relationship Specialty Start Date End Date Yaya Frederick MD [address] [place] [address] PCP - General Family Medicine 05/04/21 documented as of this encounter
--- OUTSIDE RECORDS SUMMARY | 2023-09-12 22:31 | External Medical Summary | Summary of Care ---
Author Name Unknown Organization [facility] Address [address] [facility] [address] Phone [phone] Care Team Providers Care General Technician Name Role Phone Yaya Frederick MD Primary Care Provider [phone] Reason for Visit * Reason Onset Date Comments Hospital Follow-Up 06/09/2023 Encounter Details Date Type Department Care Team Description 06/09/2023 Telephone Cardiology, [facility] [address] [place] [address] Margarita Mitchell PA-C [address] [place] [address] Hospital Follow-Up Allergies Active Allergy Reactions Severity [...] SolutionIndications:P ost-nasal discharge Administer into nostril 1 [place] in the morning AND 1 [place] before bedtime. 30 mL 0 11/30/2021 Active Fexofenadine HCl 180 MG Oral Tablet (Lizzette) Take by mouth 1 Tablet daily as needed for Allergies. 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 # [id number] [employer] Sales: Wilda Serrano MD [phone] Type 2 diabetes mellitus wit h hemoglobin A1c goal of less than 7.0% 11/03/2006 08/15/2007 Overview: ICD-10 update of inactive term PURE HYPERCHOLESTEROLEM 11/03/2006 10/01/20 09 Overview: Per Lipid Taxonomy. 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 * Telephone Encounter - Margarita Mitchell PA-C - 06/09/2023 9:35 AM EDT Patient to be discharged from [facility] Dx: CHF and Angina (med management) Multiple meds adjusted. Followed by Dr. Macedo during admission. Needs hosp f/u with cardio arranged. Typically follows with Dr. Doyle/Rosaura Calvo PA-C documented in this encounter Plan of Treatment Upcoming Encounters Date Type Specialty Care Team Description 06/15/2023 Office Visit Family Medicine Srini Draper MD [address] [place] [phone] 06/15/2023 Laboratory Laboratory [place], [facility] [address] [place], [place] [phone] 06/16/2023 [facility] Pharmacist1, [facility] [address] [place], [place] [phone] 06/23/2023 Office Visit Otolaryngology Keely Tanner PA-C [address] [place] [address] 07/17/2023 Office Visit Cardiology Srini Doyle, [address] [place] [address] 09/13/2023 Office Visit Cardiology Srini Doyle, [address] [place] [address] 11/20/2023 Office Visit Family Medicine Yaya Frederick MD [address] [place] [phone] 12/01/2023 Office Visit Hematology Oncology Agustín Sullivan MD [address] [place] [address] 12/04/2023 Office Visit Cardiology Bucky Calvo PA-C [address] [place] [address] Health Maintenance Due Date Last Done Comments Zoster Vaccines (1 of 2) 1954 *BISPHONATE OR OTHER ACCEPTABLE MEDICATION NEEDED FOR OSTEOPOROSIS (REFER TO SMARTSET #1146) 10/24/2021 Influenza Vaccine (FLU shot) (#1) 2023 07/04/2022, 07/19/2021, 07/19/2021, Additional history exists Depression Screening, Annual for Pts 12 and Over 02/09/2024 02/08/2023 Albumin/Creatinine Ratio 05/01/2024 023, 07/04/2022, 12/02/2010, Additional history exists CKD PHOS USE SMARTSET 51492 05/01/202404/22, 11/04/2022, 02/14/2019 CKD HGB USE SMARTSET 96252 05/15/202405/15, 05/15/2023, 05/11/2023, Additional history exists DXA Scan 11/09/2024 11/09/2022, 01/21, 11/03/2015, Additional history exists DTaP,Tdap,and Td Vaccines (3 - Td or Tdap) 06/04/2029 06/04/2019, 01/28/2019, 05/26/2008 Pneumococcal Vaccine: 65+ Years Completed 05/24/2016, 11/14/2001 COVID-19 Vaccine Completed 09/29/2022, , 01/05/2021, Additional history exists VITAMIN D LEVEL ONCE IN A LIFETIME-USE SMARTSET# 59189 Completed 05/01/2023, 11/04/2022, 02/14/2019, Additional history exists [...] documented as of this encounter Care Teams General Technician Relationship Specialty Start Date End Date Yaya Frederick MD [address] [place] [address] PCP - General Family Medicine 05/04/21 documented as of this encounter
--- OUTSIDE RECORDS SUMMARY | 2023-09-12 22:32 | External Medical Summary ---
Author Name Unknown Address Unknown Organization K01:[facility]ORY [facility] - [address] [facility] [address] [place] [id number] Laboratory Report Ordering Provider Test Date Status GISELLA RAY 05/31/2023 11:44:04 Preliminary <10,000 colonies/ml mixed no rmal jone Observation Date Value Abnormality Reference (Units) Status Bacteria identified in Unspecified specimen by Culture 05/31/2023 11:44:04 [id number]^LACTOSE FERMENTING GRAM NEGATIVE BACILLI Abnormal Preliminary >100,000 colonies/mL Lactose fermenting gram negative bacilli
Test: Culture, Urine, Quantitative
Specimen Source: Urine, Clean Catch
Specimen Type: Urine
Specimen Date: 05/31/2023 11:44 AM
Result Date: 06/01/2023 12:07 PM
Result Status: Preliminary result
Abnormal: Yes
Resulting Lab: [facility]
[address]
[place] [address]

CULTURE

>100,000 colonies/mL Lactose fermenting gram negative bacilli (Abnormal)

<10,000 colonies/ml mixed normal jone

null Performing Location [facility]ORY [facility] - [address] [facility] [address]
--- OUTSIDE RECORDS SUMMARY | 2023-09-12 22:32 | External Medical Summary | Summary of Care ---
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 [address] Sinus node dysfunction (HCC)*; Persistent atrial fibrillation (HCC); Cardiac pacemaker in situ Allergies Active Allergy Reactions Severity Noted Date [...] as of this encounter (statuses as of 06/01/2023) Medications Medication Sig Dispensed Refills Start Date [...] SolutionIndications:P ost-nasal discharge Administer into nostril 1 [place] in the morning AND 1 [place] before bedtime. 30 mL 0 11/30/2021 Active Fexofenadine HCl 180 MG Oral Tablet (Lizzette) Take by mouth 1 Tablet daily as needed for Allergies. 90 Tablet 0 01/21/2022 Active Ipratropium [place] 0.03 % Nasal Solution Administer into each [...] as of this encounter (statuses as of 06/01/2023) Active Problems Problem Noted Date Chronic hypoxemic [...] in situ 04/17/2014 Sinus node dysfunction 04/17/2014 group home current use of anticoagulant t herapy [...] as of this encounter (statuses as of 06/01/2023) Resolved Problems Problem Noted Date Resolved Date [...] Stent Restenosis in Drug-Eluting Stents Project # [id number] Dedicated Driver: Wilda Serrano MD [phone] GENOMICS CARDIO RESEARCH OTHER*[id number] 200611/29/2016 Overview: Renamed Per Clinical Trials Billing Project. 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 # [id number] Dedicated Driver: Wilda Serrano MD [phone] Type 2 diabetes mellitus wit h hemoglobin A1c goal of less than 7.0% 11/03/2006 08/15/2007 Overview: ICD-10 update of inactive term PURE HYPERCHOLESTEROLEM 11/03/2006 10/01/20 09 Overview: Per Lipid Taxonomy. 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 0 05/05/2006 01/23/2009 Overview: ICD-10 update of inactive term Anticoagulation management encounter 05/05/2006 10/03/2019 Unspecified viral infection, in conditions classified elsewhere and of unspecified site 06/08/2005 09/25/2007 Menopause 12/19/2001 12/27/2017 FEM STRESS INCONTINENCE 05/10/2001 12/04/19 02 documented as of this encounter (statuses as of 06/01/2023) Immunizations Name Administration Dates Next Due COVID-19 mRNA, LNP-s, No Pre serve, 2-Dose Series ([employer]) 09/13/2021,01/05/2021,12/15/2020 Covid-19, Mrna, Lnp-s, Pf, B ivalent, 30 Mcg, IM, 12 yrs and above (Pfizer) 09/29/2022 H1N1 2009 Influenza, IM 10/08/2009 Pneumococcal Conjugate Vacc, 13 Valent (Prevnar) 05/24/2016 Seasonal Influenza Virus Vac cine, Unspecified Formulation 07/19/2021,08/03/2020,07/23/2019,07/30,08/29/2017,07/28/2016,07/05/2016 ,07/07/2014,07/22/2013,07/03/2012,06/24,07/21/2010,09/12/2009, 8,07/23/2007,08/02/2006,08/23/2005,,10/01/2001 Seasonal Influenza, Quadriva lent Hd (Fluzone Hd) 07/04/2022,07/19/2021 Seasonal Influenza, Quadriva lent, No Preserve, 6 Mons & Above, IM 07/30/2018,08/29/2017 Seasonal Influenza, Quadriva lent, No Preserve, Adjuvanted, 65+ Yrs, IM 08/03/2020 Seasonal Influenza, Quadriva lent, No Preserve, IM [...] as of this encounter Progress Notes * ROMA Faye - 06/01/2023 8:30 AM EDT In office device check performed to check device longevity Providers see scanned report in scans tab. Return in 1 M for an [facility] visit to monitor device longevity. Tech: Artie Albert III Plastics Plater: Dr. Raphael documented in this encounter Plan of Treatment Upcoming Encounters Date Type Specialty Care Team Description 06/15/2023 Office Visit Family Medicine Srini Draper MD [address] [place] [phone] 06/15/2023 Laboratory Laboratory [place], [facility] [address] [place] [address] 06/16/2023 Anticoagulation Pharmacy Pharmacist, [facility] [address] [place] [address] 06/23/2023 Office Visit Otolaryngology Keely Tanner PA-C [address] [place] [address] 09/13/2023 Office Visit Cardiology Srini Doyle DO [address] [place] [address] 11/20/2023 Office Visit Family Medicine Yaya Frederick MD [address] [place] [address] 12/01/2023 Office Visit Hematology Oncology Agustín Sullivan MD [address] [place] [address] 12/04/2023 Office Visit Cardiology Bucky Calvo PA-C [address] [place] [address] Scheduled Orders Name Type Priority Associated Diagnoses Orde r Schedule DUAL-LEAD PACEMAKER + REPROGRAM Procedures Routine Sinus node dysfunction (HCC) Persistent atrial fibrillation (HCC) Cardiac pacemaker in situ Ordered: 06/01/2023 Health Maintenance Due Date Last Done Comments Zoster Vaccines (1 of 2) 1954 *BISPHONATE OR OTHER ACCEPTABLE MEDICATION NEEDED FOR OSTEOPOROSIS (REFER TO SMARTSET #1146) 10/24/2021 Influenza Vaccine (FLU shot) (#1) 2023 07/04/2022, 07/19/2021, 07/19/2021, Additional history exists Depression Screening, Annual for Pts 12 and Over 02/09/2024 02/08/2023 Albumin/Creatinine Ratio 05/01/2024 023, 07/04/2022, 12/02/2010, Additional history exists CKD PHOS USE SMARTSET 36380 05/01/2024 07/, 11/04/2022, 02/14/2019 CKD HGB USE SMARTSET 89594 05/15/202405/15, 05/15/2023, 05/11/2023, Additional history exists DXA Scan 11/09/2024 11/09/2022, 01/21, 11/03/2015, Additional history exists DTaP,Tdap,and Td Vaccines (3 - Td or Tdap) 06/04/2029 06/04/2019, 01/28/2019, 05/26/2008 Pneumococcal Vaccine: 65+ Years Completed 05/24/2016, 11/14/2001 COVID-19 Vaccine Completed 09/29/2022, , 01/05/2021, Additional history exists VITAMIN D LEVEL ONCE IN A LIFETIME-USE SMARTSET# 00768 Completed 05/01/2023, 11/04/2022, 02/14/2019, Additional history exists [...] as of this encounter Visit Diagnoses Diagnosis Sinus node dysfunction (HCC)- Primary Sinoatrial node dysfunction Persistent atrial fibrillation (HCC) Atrial fibrillation Cardiac pacemaker in situ documented in this encounter Additional Health Concerns Infection Onset Date Last Indicated Resolved Time Varicella zoster 08/01/2022 08/01/2022 ESBL 01/26/2023 05/01/2023 documented as of this encounter Care Teams Kiln Car Repairer Relationship Specialty Start Date End Date Yaya Frederick MD [address] [place] [address] [phone] PCP - General Family Medicine 05/04/21 documented as of this encounter
--- OUTSIDE RECORDS SUMMARY | 2023-09-12 22:32 | External Medical Summary | Summary of Care ---
Author Name Unknown Organization [facility] Address [address] [facility] [place] [address] Phone [phone] Care Team Providers Care Finished Garment Inspector Name Role Phone Yaya Obando MD Primary Care Provider [phone] Reason for Visit * Reason Onset Date Comments Medication Question 05/17/2023 Encounter Details Date Type Department Care Team Description 05/17/[address] [address] Yaya Obando MD [address] [place] [address] Medication Question Allergies Active Allergy Reactions Severity Noted Date [...] as of this encounter (statuses as of 05/22/2023) Medications Medication Sig Dispensed Refills Start Date [...] SolutionIndications:P ost-nasal discharge Administer into nostril 1 [place] in the morning AND 1 [place] before bedtime. 30 mL 0 11/30/2021 Active Fexofenadine HCl 180 MG Oral Tablet (Lizzette) Take by mouth 1 Tablet daily as needed for Allergies. 90 Tablet 0 01/21/2022 Active Ipratropium [place] 0.03 % Nasal Solution Administer into each nostril 2 Sprays 2 times a day as needed for Rhinitis. 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 270 Tablet 3 10/03/2022 Active Rosuvastatin Calcium 10 MG Oral Tablet (Crestor)Indications: Dyslipidemia, goal LDL below 70 Take 1 Tablet (10 mg) by mouth in the morning. 90 Tablet 3 10/03/2022 Active Additional Information Patient taking differently: 20 mgOral Daily(AM), Reported on 05/15/2023 oxygen IN GAS Use as directed. 2L at bedtime 0 Active rOPINIRole HCl 0.5 MG Oral Tablet (Requip)Indications:R LS (restless legs syndrome) Take 1 Tablet by mouth at bedtime. 30 Tablet 5 01/23/2023 Active Additional Information Patient not taking.Reported on 03/24/2023 Phenazopyridine HCl 200 MG Oral Tablet (Pyridium) 1 tablet every 8 hours as needed After meals for pain with urination 30 Tablet 0 03/21/2023 Active Additional Information Patient not taking.Reported on 03/24/2023 Estrogens Conjugated 0.625 MG/GM Vaginal Cream (Premarin)Indications :Recurrent UTI Administer 0.5 g into the vagina in the morning. 30 g 2 03/24/2023 Active Pantoprazole Sodium 40 MG Oral Tablet Delayed Release (Protonix)Indications :Esophagitis Take 1 Tablet by mouth in the morning. 90 Tablet 1 03/28/2023 Active Torsemide 20 MG Oral Tablet (Demadex)Indications: Chronic ischemic heart disease 2 pills one daily alternating with 3 pills the next day 100 Tablet 2 04/10/2023 Active Spironolactone 25 [...] mouth in the morning. 0 05/09/2023 Active Amoxicillin-Pot Clavulanate 500-125 MG Oral Tablet (Augmentin) Take 1 Tablet by mouth in the morning and 1 Tablet in the evening. 0 Active Advanced Probiotic Oral Capsule Take 2 Capsules by mouth in the morning. 0 Active Hydroxyurea 500 MG Oral Capsule [...] before bedtime. 20 Tablet 0 05/15/2023 Active Nitroglycerin 0.4 MG Sublingual Tablet Sublingual (Nitrostat)Indication s:NSTEMI (non-ST elevated myocardial infarction) (HCC) Place 1 Tablet under the tongue as needed for Pain, Chest. May repeat 3 times. If chest pain continues, call 911. 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 # [id number] Correctional Probation Officer: Wilda Serrano MD [phone] Type 2 diabetes mellitus wit h hemoglobin A1c goal of less than 7.0% 11/03/2006 08/15/2007 Overview: ICD-10 update of inactive term PURE HYPERCHOLESTEROLEM 11/03/2006 10/01/20 09 Overview: Per Lipid Taxonomy. 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/2008 group home current use of anticoagulant therapy 0 05/05/2006 01/23/2009 Overview: ICD-10 update of inactive term Anticoagulation management encounter 05/05/2006 10/03/2019 Unspecified viral infection, in conditions classified elsewhere and of unspecified site 06/08/2005 09/25/2007 Menopause 12/19/2001 12/27/2017 FEM STRESS INCONTINENCE 05/10/2001 12/04/19 02 documented as of this encounter (statuses as of 05/22/2023) Immunizations Name Administration Dates Next Due COVID-19 mRNA, LNP-s, No Pre serve, 2-Dose Series (Bravofly) 09/13/2021,01/05/2021,12/15/2020 Covid-19, Mrna, Lnp-s, Pf, B ivalent, [...] Telephone Encounter - Yaya Obando MD - 05/18/2023 3:51 PM EDT Please call in the prescription to patients pharmacy and close encounter. Signed Prescriptions: Disp Refills Nitroglycerin 0.4 MG Sublingual Tablet Sub*25 Tab*11 Sig: Place 1 Tablet under the tongue as needed for Pain, Chest. May repeat 3 times. If chest pain continues, call 911. Authorizing Provider: YAYA OBANDO * Telephone Encounter - Peyton Rivas LPN - 05/18/2023 11:50 AM EDT 06/15/2023 05/15/2023 (in office), Visit date not found (telemedicine) Pending Prescriptions: Disp Refills Nitroglycerin 0.4 MG Sublingual Tablet [place]*25 Tab*11 Sig: Place 1 Tablet under the tongue as needed for Pain, Chest. May repeat 3 times. If chest pain continues, call 911. * Telephone Encounter - Kareem Singer - 05/17/2023 2:57 PM EDT Patient requesting refills for Nitroglycerin 0.4 mg. Upon chart review, medication is listed as discontinued, with discontinuation reason as "pt preference". Please advise if you wish to continue this therapy for the patient. Pt is out and just returned home from hospital from a heart attack. Needs medication filled B[facility]. Thank You, Kareem Singer [facility] Math And Physics Instructor II Centralized Clinical Pharmacy Services (Formerly Telepharmacy) 05/17/2023, 2:58 PM documented in this encounter Plan of Treatment Upcoming Encounters Date Type Specialty Care Team Description 05/25/2023 Office Visit Cardiology Srini Doyle DO [address] [place] [address] 05/31/2023 Telemedicine Hematology Oncology Agustín Sullivan MD [address] [place] [address] 06/13/2023 Anticoagulation Pharmacy Pharmacist1, [facility] [address] [place], [place] [phone] 06/15/2023 Office Visit Family Medicine Srini Draper MD [address] [place] [address] 06/23/2023 Office Visit Otolaryngology Keely Tanner PA-C [address] [place] [address] 11/20/2023 Office Visit Family Medicine Yaya Obando MD [address] [place], [place] [address] [address] 12/04/2023 Office Visit Cardiology Bucky Calvo PA-C [address] [place] [address] Health Maintenance Due Date Last Done Comments Zoster Vaccines (1 of 2) 1954 *BISPHONATE OR OTHER ACCEPTABLE MEDICATION NEEDED FOR OSTEOPOROSIS (REFER TO SMARTSET #1146) 10/24/2021 Influenza Vaccine (FLU shot) (#1) 2023 07/04/2022, 07/19/2021, 07/19/2021, Additional history exists Depression Screening, Annual for Pts 12 and Over 02/09/2024 02/08/2023 Albumin/Creatinine Ratio 05/01/2024 023, 07/04/2022, 12/02/2010, Additional history exists CKD PHOS USE SMARTSET 59195 05/01/202404/22, 11/04/2022, 02/14/2019 CKD HGB USE SMARTSET 78243 05/15/202405/15, 05/15/2023, 05/11/2023, Additional history exists DXA Scan 11/09/2024 11/09/2022, 01/21, 11/03/2015, Additional history exists DTaP,Tdap,and Td Vaccines (3 - Td or Tdap) 06/04/2029 06/04/2019, 01/28/2019, 05/26/2008 Pneumococcal Vaccine: 65+ Years Completed 05/24/2016, 11/14/2001 COVID-19 Vaccine Completed 09/29/2022, , 01/05/2021, Additional history exists VITAMIN D LEVEL ONCE IN A LIFETIME-USE SMARTSET# 66571 Completed 05/01/2023, 11/04/2022, 02/14/2019, Additional history exists [...] as of this encounter Visit Diagnoses Diagnosis NSTEMI (non-ST elevated myocardial infarction) (HCC)- Primary Acute myocardial infarction, subendocardial infarction, episode of care unspecified documented in this encounter Additional Health Concerns Infection Onset Date Last Indicated Resolved Time Varicella zoster 08/01/2022 08/01/2022 ESBL 01/26/2023 05/01/2023 documented as of this encounter Care Teams Finished Garment Inspector Relationship Specialty Start Date End Date Y[place] [address] PCP - General Family Medicine 05/04/21 documented as of this encounter
--- OUTSIDE RECORDS SUMMARY | 2023-09-12 22:32 | External Medical Summary | Summary of Care ---
Author Name Unknown Organization [facility] Address [address] [facility] [address] Phone [phone] Care Team Providers Care Mgmt Analyst Name Role Phone Yaya Obando MD Primary Care Provider [phone] Reason for Visit * Reason Onset Date Comments Medication Refill 05/17/2023 Encounter Details Date Type Department Care Team Description 05/17/[address] [address] Yaya Obando MD [address] [place] [phone] NSTEMI (non-ST elevated myocardial infarction) ([facility]) Allergies Active Allergy Reactions Severity Noted [...] as of this encounter (statuses as of 05/18/2023) Medications Medication Sig Dispensed Refills Start Date End Date Status BENADRYL 25 MG PO TABS 1 TABLET EVERY 4 TO 6 HOURS NEEDED 0 Active CALTRATE 600+D 600-400 MG-UNIT PO TABS one tablet twice daily 0 06/17/2009 Active MAG-OXIDE 400 MG PO TABSIndications:Laundry Agent jayda ischemic heart disease one tablet twice a day 60 Tab 5 01/05/2011 Active Additional Information Patient taking differently: 400 mgOralDaily(AM), Reported on 11/21/2022 GRX ANALGESIC BALM EX OINT Apply topically to affected area. 0 07/01/2013 Active Azelastine HCl 0.15 % Nasal SolutionIndications: Post-nasal discharge Administer into nostril 1 [place] in the morning AND 1 [place] before bedtime. 30 mL 0 11/30/2021 Active Fexofenadine HCl 180 MG Oral Tablet (Lizzette) Take by mouth 1 Tablet daily as needed for Allergies. 90 Tablet 0 01/21/2022 Active Ipratropium [place] 0.03 % Nasal Solution Administer into each [...] Active Rosuvastatin Calcium 10 MG Oral Tablet (Crestor)Indications :Dyslipidemia, goal LDL below 70 Take 1 Tablet (10 mg) by mouth in the morning. 90 Tablet 3 10/03/2022 Active Additional Information Patient taking differently: 20 mgOral Daily(AM), Reported on 05/15/2023 oxygen IN GAS Use as directed. 2L at bedtime 0 Active rOPINIRole HCl 0.5 MG Oral Tablet (Requip)Indications: RLS (restless legs syndrome) Take 1 Tablet by mouth at bedtime. 30 Tablet 5 01/23/2023 Active Additional Information Patient not taking.Reported on 03/24/2023 Phenazopyridine HCl 200 MG Oral Tablet (Pyridium) 1 tablet every 8 hours as needed After meals for pain with urination 30 Tablet 0 03/21/2023 Active Additional Information Patient not taking.Reported on 03/24/2023 Estrogens Conjugated 0.625 MG/GM Vaginal Cream (Premarin)Indication s:Recurrent UTI Administer 0.5 g into the vagina in the morning. 30 g 2 03/24/2023 Active Pantoprazole Sodium 40 MG Oral Tablet Delayed Release (Protonix)Indication s:Esophagitis Take 1 Tablet by mouth in the morning. 90 Tablet 1 03/28/2023 Active Torsemide 20 MG Oral Tablet (Demadex)Indications :Chronic ischemic heart disease 2 pills one daily alternating with 3 pills the next day 100 Tablet 2 04/10/2023 Active Spironolactone 25 MG Oral Tablet (Aldactone)Indicatio [...] the morning. 90 Tablet 3 05/18/2023 Active Rosuvastatin Calcium 20 MG Oral Tablet (Crestor)Indications :NSTEMI (non-ST elevated myocardial infarction) (HCC) Take 1 Tablet by mouth in the morning. 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 # [id number] Mechanical Laboratory Technician: Wilda Serrano MD [phone] Type 2 diabetes mellitus wit h hemoglobin A1c goal of less than 7.0% 11/03/2006 08/15/2007 Overview: ICD-10 update of inactive term PURE HYPERCHOLESTEROLEM 11/03/2006 10/01/20 09 Overview: Per Lipid Taxonomy. 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/2008 detention current use of anticoagulant therapy 0 05/05/2006 01/23/2009 Overview: ICD-10 update of inactive term Anticoagulation management encounter 05/05/2006 10/03/2019 Unspecified viral infection, in conditions classified elsewhere and of unspecified site 06/08/2005 09/25/2007 Menopause 12/19/2001 12/27/2017 FEM STRESS INCONTINENCE 05/10/2001 12/04/19 02 documented as of this encounter (statuses as of 05/18/2023) Immunizations Name Administration Dates Next Due COVID-19 mRNA, LNP-s, No Pre serve, 2-Dose Series ([place]) 09/13/2021,01/05/2021,12/15/2020 Covid-19, Mrna, Lnp-s, Pf, B ivalent, [...] encounter Miscellaneous Notes * Telephone Encounter - Itzel Payne, [facility] - 05/18/2023 10:10 AM EDTSigned Prescriptions: Disp Refills Rosuvastatin Calcium 20 MG Oral Tablet (Cr*90 Tab*3 Sig: Take 1 Tablet by mouth in the morning.Authorizing Provider: Milka OBANDO User: ITZEL PAYNE-- * Telephone Encounter - Corrine South CPhT - 05/18/2023 10:05 AM EDT Pharmacy was looking for 20mg not 10mg. Please resend Rx to [id number] [address] Confirmed pharmacy did not receive original prescription. Pending Prescriptions: Disp Refills Rosuvastatin Calcium 20 MG Oral Tablet (C*90 Tab*5 Sig: Take 1 Tablet by mouth in the morning. Last Visit: 05/15/2023 (in office), Visit date not found (telemedicine) 06/15/2023 If no future appointments scheduled, and last appointment is greater than a year ago, please schedule patient for a follow-up appointment Last date the medication was ordered: 05/15/2023 Patient Phone Numbers mobile [phone] Labs: Lab Results Component Value Date/Time CREAT 1.2 (H) 05/15/2023 03:59 PM CREAT 1.1 (H) 09/16/2020 02:47 PM POTASSIUM 5.0 05/15/2023 03:59 PM POTASSIUM 4.2 09/16/2020 02:47 PM TSH 2.43 05/01/2023 01:38 PM TSH 4.55 (H) 04/17/2020 10:26 AM LDLCALC 32 05/01/2023 01:38 PM LDLCALC 39 09/16/2020 02:47 PM LDLDIRECT 38 05/01/2023 01:38 PM LDLDIRECT NOT APPLICABLE 09/16/2020 02:47 PM LDLDIRECT 66 10/12/2017 08:21 AM ALT 24 05/15/2023 03:59 PM ALT 14 09/16/2020 02:47 PM HGBA1C 5.8 10/17/2017 10:18 AM * Telephone Encounter - Denise Lafleur - 05/17/2023 11:48 AM EDT Med request from [facility] pharmacy requesting Rosuvastatin calcium 10 mg documented in this encounter Plan of Treatment Upcoming Encounters Date Type Specialty Care Team Description 05/31/2023 Telemedicine Hematology Oncology Agustín Sullivan MD [address] [place] [address] 06/13/2023 Anticoagulation Pharmacy Pharmacist1, [facility] [address] [place] [address] 06/15/2023 Office Visit Family Medicine Srini Draper MD [address] [place] [address] 06/23/2023 Office Visit Otolaryngology Keely Tanner PA-C [address] [place] [address] 11/20/2023 Office Visit Family Medicine Yaya Obando MD [address] [place] [address] 12/04/2023 Office Visit Cardiology Bucky Calvo PA-C [address] [place] [address] Health Maintenance Due Date Last Done Comments Zoster Vaccines (1 of 2) 1954 *BISPHONATE OR OTHER ACCEPTABLE MEDICATION NEEDED FOR OSTEOPOROSIS (REFER TO SMARTSET #1146) 10/24/2021 Influenza Vaccine (FLU shot) (#1) 2023 07/04/2022, 07/19/2021, 07/19/2021, Additional history exists Depression Screening, Annual for Pts 12 and Over 02/09/2024 02/08/2023 Albumin/Creatinine Ratio 05/01/2024 023, 07/04/2022, 12/02/2010, Additional history exists CKD PHOS USE SMARTSET 16002 05/01/202404/22, 11/04/2022, 02/14/2019 CKD HGB USE SMARTSET 46357 05/15/202405/15, 05/15/2023, 05/11/2023, Additional history exists DXA Scan 11/09/2024 11/09/2022, 01/21, 11/03/2015, Additional history exists DTaP,Tdap,and Td Vaccines (3 - Td or Tdap) 06/04/2029 06/04/2019, 01/28/2019, 05/26/2008 Pneumococcal Vaccine: 65+ Years Completed 05/24/2016, 11/14/2001 COVID-19 Vaccine Completed 09/29/2022, , 01/05/2021, Additional history exists VITAMIN D LEVEL ONCE IN A LIFETIME-USE SMARTSET# 46067 Completed 05/01/2023, 11/04/2022, 02/14/2019, Additional history exists [...] Diagnoses Diagnosis NSTEMI (non-ST elevated myocardial infarction) (HCC) Acute myocardial infarction, subendocardial infarction, episode of care unspecified documented in this encounter Additional Health Concerns Infection Onset Date Last Indicated Resolved Time Varicella zoster 08/01/2022 08/01/2022 ESBL 01/26/2023 05/01/2023 documented as of this encounter Care Teams Mgmt Analyst Relationship Specialty Start Date End Date Yaya Obando MD [address] [place] [address], [place] [address] PCP - General Family Medicine 05/04/21 documented as of this encounter
--- OUTSIDE RECORDS SUMMARY | 2023-09-12 22:32 | External Medical Summary | Summary of Care ---
Author Name Unknown Organization [facility] Address [address] [facility] [place] [address] Phone [phone] Care Team Providers Care Locker Room Manager Name Role Phone Yaya Frederick MD Primary Care Provider [phone] Reason for Visit * Reason Onset Date Comments Advice 06/02/2023 Encounter Details Date Type Department Care Team Description 06/02/[address] [address] Yaya Frederick MD [address] [place] [address] Advice Allergies Active Allergy Reactions Severity [...] as of this encounter (statuses as of 06/07/2023) Medications Medication Sig Dispensed Refills Start Date [...] SolutionIndications:P ost-nasal discharge Administer into nostril 1 [place] in the morning AND 1 [place] before bedtime. 30 mL 0 11/30/2021 Active Fexofenadine HCl 180 MG Oral Tablet (Lizzette) Take by mouth 1 Tablet daily as needed for Allergies. 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 Case d/w Infectious disease. I had to leave a message on her cell to call back documented in this encounter Miscellaneous Notes * Telephone Encounter - Sandra Cavazos LPN - 06/07/2023 12:23 PM EDT Provider to address: repeat urine Reason for Call: Advice Contact: Telephone Call Contact Type: Orders Outcome: Called patient to check the status as there is H&P from [facility] ER scanned in-- she is still admitted and they are treating her UTI. Total Time including non face to face (minutes): 15 * Telephone Encounter - Jm Mckeon MD - 06/02/2023 4:18 PM EDT UA ordered. * Telephone Encounter - GAVIN Luna - 06/02/2023 3:54 PM EDT Pt is returning call stating that she does not have transportation and will have to do it on Monday * Telephone Encounter - Lidia Marks LPN - 06/02/2023 3:48 PM EDT Provider to address: Dr. Frederick called in asking for a provider to put in a urinalysis put in for patient. Once order is in please have nursing call patient to come in to give sample. Reason for Call: No chief complaint on file. Contact: Telephone Call Contact Type: Test Results Outcome: Orders for urine. Total Time including non face to face (minutes): 5 documented in this encounter Plan of Treatment Upcoming Encounters Date Type Specialty Care Team Description 06/15/2023 Office Visit Family Medicine Srini Draper MD [address] [place] [address] 06/15/2023 Laboratory Laboratory [facility] [address] [place] [address] 06/16/2023 Anticoagulation Pharmacy Pharmacist, [facility] [address] [place] [address] 06/23/2023 Office Visit Otolaryngology Keely Tanner PA-C [address] [place] [address] 09/13/2023 Office Visit Cardiology Srini Doyle DO [address] [place] [address] 11/20/2023 Office Visit Family Medicine Yaya Frederick MD [address] [place] [address] 12/01/2023 Office Visit Hematology Oncology Agustín Sullivan MD [address] [place] [address] 12/04/2023 Office Visit Cardiology Bucky Calvo PA-C [address] [place] [address] Scheduled Orders Name Type Priority Associated Diagnoses Orde r Schedule URINALYSIS, REFLEX TO MICROSCOPIC Lab Routine Dysuria History of ESBL E. coli infection Expected: 06/03/2023, Expires: 06/02/2024 Health Maintenance Due Date Last Done Comments Zoster Vaccines (1 of 2) 1954 *BISPHONATE OR OTHER ACCEPTABLE MEDICATION NEEDED FOR OSTEOPOROSIS (REFER TO SMARTSET #1146) 10/24/2021 Influenza Vaccine (FLU shot) (#1) 2023 07/04/2022, 07/19/2021, 07/19/2021, Additional history exists Depression Screening, Annual for Pts 12 and Over 02/09/2024 02/08/2023 Albumin/Creatinine Ratio 05/01/2024 023, 07/04/2022, 12/02/2010, Additional history exists CKD PHOS USE SMARTSET 55456 05/01/202404/22, 11/04/2022, 02/14/2019 CKD HGB USE SMARTSET 64413 05/15/202405/15, 05/15/2023, 05/11/2023, Additional history exists DXA Scan 11/09/2024 11/09/2022, 01/21, 11/03/2015, Additional history exists DTaP,Tdap,and Td Vaccines (3 - Td or Tdap) 06/04/2029 06/04/2019, 01/28/2019, 05/26/2008 Pneumococcal Vaccine: 65+ Years Completed 05/24/2016, 11/14/2001 COVID-19 Vaccine Completed 09/29/2022, , 01/05/2021, Additional history exists VITAMIN D LEVEL ONCE IN A LIFETIME-USE SMARTSET# 90088 Completed 05/01/2023, 11/04/2022, 02/14/2019, Additional history exists [...] as of this encounter Visit Diagnoses Diagnosis Dysuria- Primary History of ESBL E. coli infection Personal history of other infectious and parasitic disease documented in this encounter Additional Health Concerns Infection Onset Date Last Indicated Resolved Time Varicella zoster 08/01/2022 08/01/2022 ESBL 01/26/2023 05/31/2023 documented as of this encounter Care Teams Locker Room Manager Relationship Specialty Start Date End Date Yaya Frederick MD [address] [place] [address] PCP - General Family Medicine 05/04/21 documented as of this encounter
--- OUTSIDE RECORDS SUMMARY | 2023-09-12 22:32 | External Medical Summary ---
Author Name Unknown Address Unknown Organization [id number]:LABORATORY [facility] [place] - [address] [facility] [address] Laboratory Report Ordering Provider Test Date Status GISELLA RAY 05/31/2023 11:44:04 Final <10,000 colonies/ml mixed no rmal jone Observation Date Value Abnormality Reference (Units ) Status Bacteria identified in Unspecified specimen by Culture 05/31/2023 11:44:04 [id number]^ESCHE RICHIA COLI ESBL Abnormal Final >100,000 colonies/mL Escheri marissa coli ESBL producing organism, This patient may require isolation.
This gram negative bacilli displays in vitro resistance to multiple antibiotics. This patient may require isolation. Carbapenem use is preferred. Contact infectious disease service for further recommendations. Performing Location LABORATORY [facility] [place] - [address] [facility] [address] Ordering Provider Test Date Status GISELLA RAY 05/31/2023 11:44:04 Final Observation Date Value Abnormality Reference (Units ) Status Ampicillin 05/31/2023 11:44:04 >=32 Resistant Final Ampicillin + Sulbactam 05/31/2023 11:44:04 16 Intermediate Final Cefazolin 05/31/2023 11:44:04 >=64 Resistant Final Cefepime susceptibility 05/31/2023 11:44:04 Susceptible Final This is an appended report. These results have been appended to a previously preliminary verified report. Ceftriaxone suceptibility 05/31/2023 11:44:04 32 Resi stant Final Ciprofloxacin 05/31/2023 11:44:04 >=4 Resistant Final Due to serious side effects, the FDA has advised against using Ciprofloxacin to treat uncomplicated UTIs and respiratory tract infections unless there are no alternative treatment options. Gentamicin susceptibility 05/31/2023 11:44:04 <=1 Susc eptible Final Levofloxacin susceptibility 05/31/2023 11:44:04 >=8 Re sistant Final Due to serious side effects, the FDA has advised against using Levofloxacin to treat uncomplicated UTIs and respiratory tract infections unless there are no alternative treatment options. Meropenem [Susceptibility] 05/31/2023 11:44:04 <=0.25 Ana ceptible Final Nitrofurantoin susceptibility 05/31/2023 11:44:04 <=16 Susceptible Final Piperacillin + Tazobactamsusceptibility 05/31/2023 11:44:04 <=4 Susceptible Final TMP-SMZ susceptibility 05/31/2023 11:44:04 <=20 Suscept ible Final Performing Location LABORATORY [facility] [place] - [address] [facility] [address] Ordering Provider Test Date Status GISELLA RAY 05/31/2023 11:44:04 Final Observation Date Value Abnormality Reference (Units ) Status Ertapenem [Susceptibility] 05/31/2023 11:44:04 31 Susceptible Susceptible >21 , Intermediate <=21 , Resistant <=18 Final Test: Culture, Urine, Quanti tative
Specimen Source: Urine, Clean Catch
Specimen Type: Urine
Specimen Date: 05/31/2023 11:44 AM
Result Date: 06/04/2023 7:19 AM
Result Status: Final result
Abnormal: Yes
Resulting Lab: LABORATORY [facility] [place]
[address]
[facility] [address]

CULTURE

>100,000 colonies/mL Escherichia coli ESBL producing organism, This patient may
require isolation. (Abnormal)

This gram negative bacilli displays in vitro resistance to multiple
antibiotics. This patient may require isolation. Carbapenem use is
preferred. Contact infectious disease service for further recommendations.

<10,000 colonies/ml mixed normal jone

SUSCEPTIBILITY

Escherichia coli ESBL Escherichia coli ESBL
producing organism, producing organism,
This patient may This patient may
require isolation. require isolation.
METHOD [facility] MICROBROTH DILUTIONS

AMPICILLIN >=32 Resistant
AMPICILLIN/SULBACTAM 16 Intermediate
CEFAZOLIN >=64 Resistant
CEFEPIME -- Susceptible [1]
CEFTRIAXONE 32 Resistant
CIPROFLOXACIN >=4 Resistant [2]
ERTAPENEM 31 Susceptible
GENTAMICIN <=1 Susceptible
LEVOFLOXACIN >=8 Resistant [3]
MEROPENEM <=0.25 Susceptible
NITROFURANTOIN <=16 Susceptible
PIPERACILLIN TAZOBACTAM <=4 Susceptible
TRIMETH/SULFAMETHOXAZOLE <=20 Susceptible

[1] This is an appended report. These results have been appended to a
previously preliminary verified report.

[2] Due to serious side effects, the FDA has advised against using
Ciprofloxacin to treat uncomplicated UTIs and respiratory tract infections
unless there are no alternative treatment options.

[3] Due to serious side effects, the FDA has advised against using
Levofloxacin to treat uncomplicated UTIs and respiratory tract infections
unless there are no alternative treatment options.

null Performing Location LABORATORY [facility] [place] - [address] [facility] [address]
--- OUTSIDE RECORDS SUMMARY | 2023-09-12 22:32 | External Medical Summary ---
Author Name Unknown Address Unknown Organization K01:[facility] [place] [facility] [address] [place] [address] Laboratory Report Ordering Provider Test Date Status GORDON CASTELAN 06/13/2023 09:26:27 Final Observation Date Value Abnormality Reference (Units ) Status BUN 06/13/2023 09:26:27 46 Above high normal 6-20 (mg/dL) Final Creatinine 06/13/2023 09:26:27 2.0 Above high normal 0.5-1.0 (mg/dL) Final Glomerular filtration rate/1.73 sq M.predicted [Volume Rate/Area] in Serum, Plasma or Blood by Creatinine-based formula (CKD-EPI) 06/13/2023 09:26:27 23 Below low normal >=60 (mL/min) Final eGFR is calculated based on the CKD-EPI 2020 equation SODIUM 06/13/2023 09:26:27 142 135-146 (m mol/L) Final Potassium 06/13/2023 09:26:27 4.3 3.5-5.1 (m mol/L) Final Cl 06/13/2023 09:26:27 96 Below low normal 98- 107 (mmol/L) Final CO2 06/13/2023 09:26:27 34 Above high normal 22 -32 (mmol/L) Final Anion gap 06/13/2023 09:26:27 12 7-15 (mmol /L) Final Glucose 06/13/2023 09:26:27 114 70-120 (mg /dL) Final Calcium 06/13/2023 09:26:27 10.2 8.4-10.2 ( mg/dL) Final Performing Location [facility]ORY [facility] [place] [address] [place] [address]
--- OUTSIDE RECORDS SUMMARY | 2023-09-12 22:32 | External Medical Summary ---
Author Name Unknown Address Unknown Organization K01:LABORATORY [facility] [place] - [address] [facility] [address] Laboratory Report Ordering Provider Test Date Status JER FITCH 06/13/2023 09:26:27 Final Observation Date Value Abnormality Reference (Units ) Status WBC, Total 06/13/2023 09:26:27 7.14 4.00-10.80 (K/uL) Final RBC 06/13/2023 09:26:27 3.37 3.85-5.15 (M/uL) Final Hemoglobin 06/13/2023 09:26:27 11.4 Below low normal 12.0-15.3 (g/dL) Final HCT 06/13/2023 09:26:27 38.5 36.0-45.2 (%) Final MCV 06/13/2023 09:26:27 114.2 81.5-97.5 (fL) Final MCH 06/13/2023 09:26:27 33.8 27.0-34.0 (pg) Final MCHC 06/13/2023 09:26:27 29.6 32.0-36.0 (g/dL) Final RDW 06/13/2023 09:26:27 15.1 11.5-15.5 (%) Final Platelets 06/13/2023 09:26:27 297 140-400 (K/uL) Final MPV 06/13/2023 09:26:27 11.3 6.6-11.1 (fL) Final Nucleated erythrocytes/100 leukocytes [Ratio] in Blood by Automated count 06/13/2023 09:26:27 0 <=0 (/100 WBCs) Final Performing Location LABORATORY [facility] [place] - [address] [facility] [address]
--- OUTSIDE RECORDS SUMMARY | 2023-09-12 22:32 | External Medical Summary | Summary of Care ---
Author Name Unknown Organization [facility] Address [address] [facility] [place] [address] Phone [phone] Care Team Providers Care Test Fixture Assembler Name Role Phone Yaya Obando MD Primary Care Provider [phone] Reason for Visit * Reason Onset Date Comments Medication Question 05/17/2023 Encounter Details Date Type Department Care Team Description 05/17/[address] [address] Yaya Obando MD [address] [place] [id number] Medication Question Allergies Active Allergy Reactions [...] as of this encounter (statuses as of 05/30/2023) Medications Medication Sig Dispensed Refills Start Date End Date Status BENADRYL 25 MG PO TABS 1 TABLET EVERY 4 TO 6 HOURS NEEDED 0 Active CALTRATE 600+D 600-400 MG-UNIT PO TABS one tablet twice daily 0 06/17/2009 Active MAG-OXIDE 400 MG PO TABSIndications:Guide Foreign Tour jayda ischemic heart disease one tablet twice a day 60 Tab 5 01/05/2011 Active Additional Information Patient taking differently: 400 mgOralDaily(AM), Reported on 11/21/2022 GRX ANALGESIC BALM EX OINT Apply topically to affected area. 0 07/01/2013 Active Azelastine HCl 0.15 % Nasal SolutionIndications: Post-nasal discharge Administer into nostril 1 [place] in the morning AND 1 [place] before bedtime. 30 mL 0 11/30/2021 Active Fexofenadine HCl 180 MG Oral Tablet (Lizzette) Take by mouth 1 Tablet daily as needed for Allergies. 90 Tablet 0 01/21/2022 Active Ipratropium Fitzgerald 0.03 % Nasal Solution Administer into each nostril 2 Sprays 2 times a day as needed for Rhinitis. 30 mL 5 02/23/2022 Active Warfarin Sodium 2.5 MG Oral TabletIndications:Ch ronic ischemic heart disease Up to one tablet daily as directed by the [facility] clinic 100 Tablet 3 08/09/2022 Active [...] Active Estrogens Conjugated 0.625 MG/GM Vaginal Cream (Premarin)Indication s:Recurrent UTI Administer 0.5 g into the vagina in the morning. 30 g 2 03/24/2023 Active Additional Information Patient not taking.Reported on 05/25/2023 Pantoprazole Sodium 40 MG Oral Tablet Delayed Release (Protonix)Indication s:Esophagitis Take 1 Tablet by mouth in the morning. 90 Tablet 1 03/28/2023 Active Torsemide 20 MG Oral Tablet (Demadex)Indications :Chronic ischemic heart disease Take 1 Tablet by [...] Sublingual (Nitrostat)Indicatio ns:NSTEMI (non-ST elevated myocardial infarction) (HCC) Place 1 Tablet under the tongue as needed for Pain, Chest. May repeat 3 times. If chest pain continues, call 911. 25 Tablet 11 05/18/2023 Active Rosuvastatin Calcium 10 MG Oral Tablet (Crestor)Indications :Dyslipidemia, goal LDL below 70 Take 1 Tablet (10 mg) by mouth in the morning. 90 Tablet 3 10/03/2022 05/25/20 23 Discontinu ed(Medicat ion/Dose Changed) rOPINIRole HCl 0.5 MG Oral Tablet (Requip)Indications: RLS (restless legs syndrome) Take 1 Tablet by mouth at bedtime. 30 Tablet 5 01/23/2023 05/25/20 23 Discontinu ed(Patient preference /discontin uation) Phenazopyridine HCl 200 MG Oral Tablet (Pyridium) 1 tablet every 8 hours as needed After meals for pain with urination 30 Tablet 0 03/21/2023 05/25/20 Discontinu ed(End of Procedure) Amoxicillin-Pot Clavulanate 500-125 MG Oral Tablet (Augmentin) Take 1 Tablet by mouth in the morning and 1 Tablet in the evening. 0 05/25/20 Discontinu ed(End of Procedure) Advanced Probiotic Oral Capsule Take 2 Capsules by mouth in the morning. 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 # [id number] Door Frame Assembler Machine: Wilda Serrano MD [phone] Type 2 diabetes mellitus wit h hemoglobin [...] as of this encounter (statuses as of 05/30/2023) Immunizations Name Administration Dates Next Due COVID-19 mRNA, LNP-s, No Pre serve, 2-Dose Series ([employer]) 09/13/2021,01/05/2021,12/15/2020 Covid-19, Mrna, Lnp-s, Pf, B ivalent, 30 Mcg, IM, 12 yrs and above ([employer]) 09/29/2022 H1N1 2009 Influenza, IM 10/08/2009 Pneumococcal Conjugate Vacc, 13 Valent (Prevnar) 05/24/2016 Pneumococcal Polysaccharide PPV23 (Pneumovax) 11/14/2001 Seasonal Influenza Virus Vac cine, Unspecified Formulation 07/19/2021,08/03/2020,07/23/2019,100 05/2018,08/29/2017,07/28/2016,07/05/20 16,07/07/2014,07/22/2013,07/03/2012,0 07/12/2011,07/21/2010,09/12/2009,08/04,07/23/2007,08/02/2006, 5,08/14/2003,10/01/2001 Seasonal Influenza, Quadriva [...] encounter Miscellaneous Notes * Telephone Encounter - Constantine Mckeon LPN - 05/30/2023 2:49 PM EDT Spoke with pt and gave message below. Pt verbalized understanding and had no further questions or concerns at this time. * Telephone Encounter - Yaya Obando MD [...] Needs medication filled BJ. Thank You, Kareem Signer [facility] Bunch Breaker II Centralized Clinical Pharmacy Services (Formerly Telepharmacy) 05/17/2023, 2:58 PM documented in this encounter Plan of Treatment Upcoming Encounters Date Type Specialty Care Team Description 05/31/2023 Telemedicine Hematology Oncology Agustín Sullivan MD [address] [place] [address] 06/01/2023 Cardiac Studies Cardiology [facility] [address] [place] [address] 06/15/2023 Office Visit Family Medicine Srini Draper MD [address] [place] [phone] 06/15/2023 Laboratory Laboratory [facility] [address] [place] [address] 06/16/2023 [facility] Pharmacist, [facility] [address] [place] [address] 06/23/2023 Office Visit Otolaryngology Keely Tanner PA-C [address] [place] [address] 09/13/2023 Office Visit Cardiology Srini Doyle DO [address] [place] [address] 11/20/2023 Office Visit Family Medicine Yaya Obando MD [address] [place], [place] [phone] 12/04/2023 Office Visit Cardiology Bucky Calvo PA-C [address] [place] [address] Health Maintenance Due Date Last Done Comments Zoster Vaccines (1 of 2) 1954 *BISPHONATE OR OTHER ACCEPTABLE MEDICATION NEEDED FOR OSTEOPOROSIS (REFER TO SMARTSET #1146) 10/24/2021 Influenza Vaccine (FLU shot) (#1) 2023 07/04/2022, 07/19/2021, 07/19/2021, Additional history exists Depression Screening, Annual for Pts 12 and Over 02/09/2024 02/08/2023 Albumin/Creatinine Ratio 05/01/2024 023, 07/04/2022, 12/02/2010, Additional history exists CKD PHOS USE SMARTSET 39866 05/01/202404/22, 11/04/2022, 02/14/2019 CKD HGB USE SMARTSET 36937 05/15/202405/15, 05/15/2023, 05/11/2023, Additional history exists DXA Scan 11/09/2024 11/09/2022, 01/21, 11/03/2015, Additional history exists DTaP,Tdap,and Td Vaccines (3 - Td or Tdap) 06/04/2029 06/04/2019, 01/28/2019, 05/26/2008 Pneumococcal Vaccine: 65+ Years Completed 05/24/2016, 11/14/2001 COVID-19 Vaccine Completed 09/29/2022, , 01/05/2021, Additional history exists VITAMIN D LEVEL ONCE IN A LIFETIME-USE SMARTSET# 56690 Completed 05/01/2023, 11/04/2022, 02/14/2019, Additional history exists [...] documented as of this encounter Care Teams Test Fixture Assembler Relationship Specialty Start Date End Date Yaya Obando MD [address] [place] [address] PCP - General Family Medicine 7/13/21 documented as of this encounter
--- OUTSIDE RECORDS SUMMARY | 2023-09-12 22:32 | External Medical Summary ---
Author Name Unknown Address Unknown Organization K01:LABORATORY [facility] [place] - [address] [place] [address] Laboratory Report Ordering Provider Test Date Status BARI CANDELARIO 06/13/2023 09:26:27 Final Warfarin Therapy
INR: 2 .0-3.0 conventional 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
INR: 2.5- 3.5 high intensity 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 Observation Date Value Abnormality Reference (Units ) Status PT 06/13/2023 09:26:27 31.6 Above high normal 11 .6-15.2 (seconds) Final INR 06/13/2023 09:26:27 3.0 Above high normal 0. 8-1.2 Final Performing Location LABORATORY [facility] [place] - [address] [place] [address]
--- OUTSIDE RECORDS SUMMARY | 2023-09-12 22:32 | External Medical Summary ---
Author Name Unknown Address Unknown Organization K01:LABORATORY [facility] [place] - [address] [facility] [place] [address] Laboratory Report Ordering Provider Test Date Status JER FITCH 06/13/2023 09:26:27 Final Observation Date Value Abnormality Reference (Units ) Status SYNC LEUKOCYTES IN BLOOD BY AUTOMATED COUNT 06/13/2023 09:26:27 7.14 4.00-10.80 (K/uL) Final Segs 06/13/2023 09:26:27 69.8 40.0-75.0 (%) Final Lymphs % 06/13/2023 09:26:27 10.4 Below low normal 18.0-42.0 (%) Final Monos 06/13/2023 09:26:27 13.3 Above high normal 1.0-11.0 (%) Final Eosinophils 06/13/2023 09:26:27 4.6 0.0-6.0 (%) Final Basos 06/13/2023 09:26:27 1.3 0.0-2.0 (%) Final Immature Granulocyte, Percent 06/13/2023 09:26:27 0.6 0.0-2.0 (%) Final Absolute Segs 06/13/2023 09:26:27 4.99 1.80-7.70 (K/uL) Final Lymphs, absolute 06/13/2023 09:26:27 0.74 Below low normal 1.00-4.80 (K/ul) Final Monos, Abs 06/13/2023 09:26:27 0.95 0.00-1.10 (K/uL) Final Eos, Abs 06/13/2023 09:26:27 0.33 0.00-0.70 (K/uL) Final Basos, Abs 06/13/2023 09:26:27 0.09 0.00-0.20 (K/uL) Final Immature Granulocytes, Number 06/13/2023 09:26:27 0.04 0.00-0.20 (K/uL) Final Performing Location LABORATORY [facility] [place] - [facility] [place] [address]
--- OUTSIDE RECORDS SUMMARY | 2023-09-12 22:32 | External Medical Summary | Summary of Care ---
Author Name Unknown Organization [facility] Address [address] [facility] [place] [address] Phone [phone] Care Team Providers Care Head Grinder Name Role Phone Yaya Frederick MD Primary Care Provider [phone] Reason for Visit * Reason Onset Date Comments Order Request 05/26/2023 Encounter Details Date Type Department Care Team Description 05/26/2023 Telephone Pharmacy [address] [address] Pharmacist2, [facility] [address] [address] Order Request Allergies Active Allergy Reactions Severity Noted [...] as of this encounter (statuses as of 05/26/2023) Medications Medication Sig Dispensed Refills Start Date [...] Allergies. 90 Tablet 0 01/21/2022 Active Ipratropium [place] 0.03 % Nasal Solution Administer into each [...] as of this encounter (statuses as of 05/26/2023) Active Problems Problem Noted Date Chronic hypoxemic [...] in situ 04/17/2014 Sinus node dysfunction 04/17/2014 long-term current use of anticoagulant t herapy 11/12/2010 [...] as of this encounter (statuses as of 05/26/2023) Resolved Problems Problem Noted Date Resolved Date [...] Stent Restenosis in Drug-Eluting Stents Project # [id number] Pit Furnace Operator: Wilda Serrano MD [phone] GENOMICS CARDIO RESEARCH OTHER*[id number] 200611/29/2016 Overview: Renamed Per Clinical Trials Billing Project. 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 # [id number] Pit Furnace Operator: Wilda Serrano MD [phone] Type 2 diabetes mellitus wit h hemoglobin A1c goal of less than 7.0% 11/03/2006 08/15/2007 Overview: ICD-10 update of inactive term PURE HYPERCHOLESTEROLEM 11/03/2006 10/01/20 09 Overview: Per Lipid Taxonomy. 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 0 05/05/2006 01/23/2009 Overview: ICD-10 update of inactive term Anticoagulation management encounter 05/05/2006 10/03/2019 Unspecified viral infection, in conditions classified elsewhere and of unspecified site 06/08/2005 09/25/2007 Menopause 12/19/2001 12/27/2017 FEM STRESS INCONTINENCE 05/10/2001 12/04/19 02 documented as of this encounter (statuses as of 05/26/2023) Immunizations Name Administration Dates Next Due COVID-19 mRNA, LNP-s, No Pre serve, 2-Dose Series ([employer]) 09/13/2021,01/05/2021,12/15/2020 Covid-19, Mrna, Lnp-s, Pf, B [...] Miscellaneous Notes * Telephone Encounter - Wilda Plata [facility] - 05/26/2023 4:12 PM EDT Order from April was recent to the following as planned: Additional Dosing Information: Description Sent orders to [facility] at Fax#: [phone] Please call results to [facility] at Or Fax to [phone] Will follow up as planned next week. Wilda Plata PharmD, [facility] Clinical Pharmacist 05/26/2023, 4:12 PM * Telephone Encounter - Shaniqua Webb gas furnace installer - 05/26/2023 1:00 PM EDT Caller's name: Shona- [facility] Preferred call back number(OFFICE NUMBER FOR ): Reason for call: Shona calling in asking for new orders for pt to get INR drawn, please advise and fax to [phone] Thank you, Leda Webb Motor Vehicle Field Representative Centralized [facility] Pharmacy Services ([facility]) ( Formerly Telepharmacy) 05/26/2023, 1:01 PM documented in this encounter Plan of Treatment Upcoming Encounters Date Type Specialty Care Team Description 05/31/2023 Telemedicine Hematology Oncology Agustín Sullivan MD [address] [place] [address] 06/01/2023 [facility] [address] [place] [address] 06/15/2023 Office Visit Family Medicine Srini Draper MD [address] [place] [address] 06/15/2023 Laboratory Laboratory [facility] [address] [place] [address] 06/16/2023 Anticoagulation Pharmacy Pharmacist, [facility] [address] [place], [place] [phone] 06/23/2023 Office Visit Otolaryngology Keely Tanner, PAJosué [address] [place] [address] 09/13/2023 Office Visit Cardiology Srini Doyle DO [address] [place] [address] 11/20/2023 Office Visit Family Medicine Yaya Frederick MD [address] [place], [place] [phone] 12/04/2023 Office Visit Cardiology Bucky Calvo PAZaynabC [address] [place] [address] Health Maintenance Due Date Last Done Comments Zoster Vaccines (1 of 2) 1954 *BISPHONATE OR OTHER ACCEPTABLE MEDICATION NEEDED FOR OSTEOPOROSIS (REFER TO SMARTSET #1146) 10/24/2021 Influenza Vaccine (FLU shot) (#1) 2023 07/04/2022, 07/19/2021, 07/19/2021, Additional history exists Depression Screening, Annual for Pts 12 and Over 02/09/2024 02/08/2023 Albumin/Creatinine Ratio 05/01/2024 023, 07/04/2022, 12/02/2010, Additional history exists CKD PHOS USE SMARTSET 86155 05/01/202404/22, 11/04/2022, 02/14/2019 CKD HGB USE SMARTSET 33177 05/15/202405/15, 05/15/2023, 05/11/2023, Additional history exists DXA Scan 11/09/2024 11/09/2022, 01/21, 11/03/2015, Additional history exists DTaP,Tdap,and Td Vaccines (3 - Td or Tdap) 06/04/2029 06/04/2019, 01/28/2019, 05/26/2008 Pneumococcal Vaccine: 65+ Years Completed 05/24/2016, 11/14/2001 COVID-19 Vaccine Completed 09/29/2022, , 01/05/2021, Additional history exists VITAMIN D LEVEL ONCE IN A LIFETIME-USE SMARTSET# 69869 Completed 05/01/2023, 11/04/2022, 02/14/2019, Additional history exists [...] documented as of this encounter Care Teams Head Grinder Relationship Specialty Start Date End Date [place] [address] PCP - General Family Medicine 05/04/21 documented as of this encounter
--- OUTSIDE RECORDS SUMMARY | 2023-09-12 22:32 | External Medical Summary | Summary of Care ---
Author Name Unknown Organization [facility] Address [address] [facility] [place] [address] Phone [phone] Care Team Providers Care Teacher Education Instructor Name Role Phone Yaya Frederick MD Primary Care Provider [phone] Reason for Visit * Reason Comments Hospital Follow-Up Encounter Details Date Type Department Care Team Description 05/25/2023 Office Visit Cardiology, [facility] [address] [place] [phone] Srini Doyle DO [address] [place] [phone] S/P CABG (coronary artery bypass graft)*; S/P aortic valve replacement; Persistent atrial fibrillation (HCC); Heart failure, diastolic, with acute decompensation (HCC); CHR ISCHEMIC HRT DIS NOS Allergies Active Allergy Reactions Severity Noted Date [...] as of this encounter (statuses as of 05/25/2023) Medications Medication Sig Dispensed Refills Start Date End Date Status BENADRYL 25 MG PO TABS 1 TABLET EVERY 4 TO 6 HOURS NEEDED 0 Active CALTRATE 600+D 600-400 MG-UNIT PO TABS one tablet twice daily 0 06/17/2009 Active MAG-OXIDE 400 MG PO TABSIndications:Security Sme jayda ischemic heart disease one tablet twice a day 60 Tab 5 01/05/2011 Active Additional Information Patient taking differently: 400 mgOralDaily(AM), Reported on 11/21/2022 GRX ANALGESIC BALM EX OINT Apply topically to affected area. 0 07/01/2013 Active Azelastine HCl 0.15 % Nasal SolutionIndications: Post-nasal discharge Administer into nostril 1 [place] in the morning AND 1 [place] before bedtime. 30 mL 0 11/30/2021 Active Fexofenadine HCl 180 MG Oral Tablet (Lizzette) Take by mouth 1 Tablet daily as needed for Allergies. 90 Tablet 0 01/21/2022 Active Ipratropium Regina 0.03 % Nasal Solution Administer into each [...] Capsule Take by mouth daily. 0 Active Rosuvastatin Calcium 10 MG Oral Tablet (Crestor)Indications :Dyslipidemia, goal LDL below 70 Take 1 Tablet (10 mg) by mouth in the morning. 90 Tablet 3 10/03/2022 05/25/20 Discontinu ed(Medicat ion/Dose Changed) rOPINIRole HCl 0.5 MG Oral Tablet (Requip)Indications: RLS (restless legs syndrome) Take 1 Tablet by mouth at bedtime. 30 Tablet 5 01/23/2023 05/25/20 Discontinu ed(Patient preference /discontin uation) Phenazopyridine HCl [...] as of this encounter (statuses as of 05/25/2023) Active Problems Problem Noted Date Chronic hypoxemic [...] as of this encounter (statuses as of 05/25/2023) Resolved Problems Problem Noted Date Resolved Date [...] Stent Restenosis in Drug-Eluting Stents Project # Tiler'S Assistant: Wilda Serrano MD [phone] GENOMICS CARDIO RESEARCH OTHER*[id number] 200611/29/2016 Overview: Renamed Per Clinical Trials Billing Project. 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 # [id number] Tiler'S Assistant: Wilda Serrano MD [phone] Type 2 diabetes mellitus wit h hemoglobin A1c goal of less than 7.0% 11/03/2006 08/15/2007 Overview: ICD-10 update of inactive term PURE HYPERCHOLESTEROLEM 11/03/2006 10/01/20 09 Overview: Per Lipid Taxonomy. 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 0 05/05/2006 01/23/2009 Overview: ICD-10 update of inactive term Anticoagulation management encounter 05/05/2006 10/03/2019 Unspecified viral infection, in conditions classified elsewhere and of unspecified site 06/08/2005 09/25/2007 Menopause 12/19/2001 12/27/2017 FEM STRESS INCONTINENCE 05/10/2001 12/04/19 02 documented as of this encounter (statuses as of 05/25/2023) Immunizations Name Administration Dates Next Due COVID-19 mRNA, LNP-s, No Pre serve, 2-Dose Series (Only [place]) 09/13/2021,01/05/2021,12/15/2020 Covid-19, Mrna, Lnp-s, Pf, B ivalent, 30 Mcg, IM, 12 yrs and above (Only [place]) 09/29/2022 H1N1 2009 Influenza, IM 10/08/2009 Pneumococcal [...] Sign Reading Time Taken Comments Blood Pressure 136/74 05/25/2023 1:28 PM EDT Pulse 84 05/25/2023 1:28 PM EDT Temperature - - Respiratory Rate 16 05/25/2023 1:28 PM EDT Oxygen Saturation 98% 05/25/2023 1:28 PM EDT Inhaled Oxygen Concentration - - Weight 80.3 kg (177 lb 1.6 oz) 05/25/2023 1:28 P M EDT Height - - Body Mass Index 35.75 02/24/2023 10:21 AM EDT documented in this encounter Progress Notes * Srini Nimaprateek Doyle, DO - 05/25/2023 1:58 PM EDT Cardiology Outpatient Follow-up Shannon Cruz is a 88 year old female who is seen for follow-up of heart failure. HPI: This is an 88-year-old female who is brought here today by her 2 sons. She has a complex and long previous cardiac history including previous AVR with coronary artery bypass in 2005, previous PCI, atrial fibrillation and chronic diastolic heart failure. She was recently in the emergency department with some right arm discomfort. She was evaluated there and eventually discharged. She is currently at baseline for her health. She has baseline shortness of breath and is on supplemental oxygen. She is had no activity related chest pain. No dizziness or lightheadedness. 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 Z79.01 Cardiac [...] actinic keratosis Z87.2 Chronic hypoxemic respiratory failure (HCC) J96.11 Chronic heart failure with preserved ejection fraction (HFpEF) ([facility]) I50.32 Past Surgical History: Procedure Laterality Date ATTACH BLADDER/URETHRA, SIMPLE 11/24 [place] CARDIAC CATH-CARDIOLOGY ONLY 04/27 COLONOSCOPY 09/26 polyp- adenoma repeat 10/01 COLONOSCOPY THRU STOMA, W/BIOPSY 07/29/13 adenomatous polyp CYSTOSCOPY 07/12/05 INSERT/REPLACE PULSE GEN ONLY, DOUBLE 04/08/2014 dual chamber mri compatible patecmaker insertion intraoperative fluoroscopic guidance [facility]04/08/14 KNEE ARTHROSCOPY/ARTHROPLASTY 09/2010 dr salcedo LIGATE/CUT OVIDUCT(S) 1963 OTHER 12/27 RCA drug eluting stent REPLACEMENT AORTIC VALVE, BYPASS WITH PROSTHETIC VALVE 04/27 Wilson Bovine AVR TOTAL ABD HYSTERECTOMY W/WO REMOVAL [...] TABLET EVERY 4 TO 6 HOURS NEEDED CALTRATE 600+D 600-400 MG-UNIT PO TABS one tablet twice daily 0 MAG-OXIDE 400 MG PO TABS one tablet twice a day (Patient taking differently: Take 1 Tablet by mouth in the morning.) 60 Tab 5 GRX ANALGESIC BALM EX OINT Apply topically to affected area. Azelastine HCl 0.15 % Nasal Solution Administer into nostril 1 [place] in the morning AND 1 Spraybefore bedtime. 30 mL 0 Fexofenadine HCl 180 MG Oral Tablet (Lizzette) Take by mouth 1 Tablet daily as needed for Allergies. 90 Tablet 0 Ipratropium Regina 0.03 % Nasal Solution Administer into each nostril 2 Sprays 2 times a day as needed for Rhinitis. 30 mL 5 Warfarin Sodium 2.5 MG Oral Tablet Up to one tablet daily as directed by the [facility] clinic 100 Tablet 3 Metoprolol Succinate ER 100 MG Oral Tablet Extended Release 24 Hour (toPROL XL) Take 1.5 Tablets (150 mg) by mouth in the morning and 1.5 Tablets (150 mg) before bedtime. (Patient taking differently: Take 1 Tablet by mouth in the morning and 1 Tablet before bedtime.) 270 Tablet 3 oxygen IN GAS Use as directed. 2L at bedtime Pantoprazole Sodium 40 MG Oral Tablet Delayed Release (Protonix) Take 1 Tablet by mouth in the morning. 90 Tablet 1 Torsemide 20 MG Oral Tablet (Demadex) Take 1 Tablet by mouth once a day on Monday, Monday, and Monday only. 100 Tablet 2 Spironolactone 25 MG Oral Tablet (Aldactone) Take [...] Acidophilus Oral Capsule Take by mouth daily. Estrogens Conjugated 0.625 MG/GM Vaginal Cream (Premarin) Administer 0.5 g into the vagina in the morning. (Patient not taking: Reported on 05/25/2023) 30 g 2 No current facility-administered medications for this visit. ROS: Review of Systems: See HPI for pertinent positives. All other review of systems is negative. PHYSICAL EXAMINATION BP 136/74 (BP Site: Left Arm, BP Position: Sitting, BP Cuff Size: Large) | Pulse 84 | Resp 16 | Wt 80.3 kg (177 lb 1.6 oz) | SpO2 98% | BMI 35.75 kg/m | BSA 1.83 m Body mass index is 35.75 kg/m. General: no acute distress and stated age Head: normocephalic, no masses, lesions, tenderness or abnormalities Eyes: conjunctiva are pink and non-injected, sclera clear Neck: supple, no adenopathy, no bruits, normal jugular venous pulse, no hepatojugular reflux Chest: normal shape and normal respiratory effort Lungs: clear to auscultation and percussion Cardiac Exam: - irregular rate & rhythm, no murmurs gallops or rubs - normal S1, normal S2 Pulses: 2(+) throughout Abdomen: abdomen soft, non-tender, no abnormal masses and no hepatosplenomegaly Musculoskeletal: no gait disturbance, no joint inflammation, no deforming arthritis Extremities: no edema and no cyanosis Neuro: grossly normal exam Laboratory Data Review: Latest Reference Range & Units 05/15/23 15:59 Sodium 135 - 146 mmol/L 142 Potassium 3.5 - 5.1 mmol/L 5.0 Chloride 98 - 107 mmol/L 100 CO2 22 - 32 mmol/L 31 BUN 6 - 20 mg/dL 25 (H) Creatinine 0.5 - 1.0 mg/dL 1.2 (H) Estimated Glomerular Filtration Rate >=60 mL/min 44 (L) Anion Gap 7 - 15 mmol/L 11 Glucose 70 - 120 mg/dL 114 Calcium 8.4 - 10.2 mg/dL 10.3 (H) Protein 6.0 - 8.3 g/dL 7.5 (H): Data is abnormally high (L): Data is abnormally low Impression: 1. Improved signs and symptoms of acute decompensated diastolic congestive heart failure. 2. Persistent atrial fibrillation with a controlled ventricular response, requiring high dose metoprolol that is possibly contributing to chronic fatigue 3. Chronic Coumadin 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 4. Prior transient bright red blood per rectum requiring ER evaluation in December 2021, suggestive ofhemorrhoidal bleeding, declining further evaluation (colonoscopy). 5. Sinus node dysfunction status post April 08, 2014 dual chamber pacemaker implantation, with dwindling generator longevity noted as above. 6. Status post AVR and CABG in April 2006 receiving a #19 Mary-Good bioprosthesis in the aortic valve position, VARGHESE graft to the LAD, SVG with sequential grafting from LAD diagonal to the circumflex obtuse marginal, and a SVG to the RCA. 7. Recurrent angina with resultant coronary intervention of the right coronary artery, PCI and stenting in December of 2006 with documented saphenous vein graft occlusion to the right coronary artery atthat time. Quiescent 8. Hypertension. 9. Hyperlipidemia. Lipids well controlled. LDL 48 mg/dL on 11/04/2022 10. Bilateral internal carotid artery disease. Last duplex transpired in February 2023 and revealed stable mild bilateral internal carotid artery disease with results unchanged for a number of years. 11. Mild sleep apnea. Intolerant to CPAP therapy 12. Ambulatory and nocturnal hypoxemia treated with supplemental oxygen 2 to 3 liters/minute via nasal cannula 13. Spinal stenosis with chronic back pain. 14. Restless leg syndrome Plan: As mentioned above, the patient is very medically complex but currently clinically stable. She willcontinue her current medications. She will return for routine pacemaker checks and I have asked herto return for clinic visit in 3 months or earlier if needed. This chart was completed in part utilizing [employer] Speech Voice Recognition Software. Grammatical errors, random [...] separately billed services. Srini Doyle DO Cardiology, [facility] [address] [facility] [place] [address] 05/25/2023 documented in this encounter Nursing Notes * Daisha Spears CMA - 05/25/2023 1:43 PM EDT Examination Room: 17 Name: Shannon Cruz Date of : (1935). Reason for Visit: Hospital f/u Interim Hospitalization(s): [facility] d/c 05/02-05/09/23 NSTEMI [facility] ED 05/18/23 Problems/Concerns: Re-establish with device clnic Chest Pain/SOB: denies [facility] Discussed: Not applicable [...] Telemedicine Hematology Oncology Agustín Sullivan MD [address] [facility], [place] [address] 06/01/2023 Cardiac Studies Cardiology [facility] [address] [facility] [place] [address] 06/15/2023 Office Visit Family Medicine Srini Draper MD [address] [place] [phone] 06/15/2023 Laboratory [facility] [place] [address] [place] [address] 06/16/2023 [facility] Pharmacist1, [facility] [address] [place] [address] 06/23/2023 Office Visit Otolaryngology Keely Tannre PA-C [address] [place] [address] 09/13/2023 Office Visit Cardiology Srini Doyle DO [address] [place] [address] 11/20/2023 Office Visit Family Medicine Yaya Frederick MD [address] [place], [place] [phone] 12/04/2023 Office Visit Cardiology Bucky Calvo PA-C [address] [place] [address] Health Maintenance Due Date Last Done Comments Zoster Vaccines (1 of 2) 1954 *BISPHONATE OR OTHER ACCEPTABLE MEDICATION NEEDED FOR OSTEOPOROSIS (REFER TO SMARTSET #1146) 10/24/2021 Influenza Vaccine (FLU shot) (#1) 2023 07/04/2022, 07/19/2021, 07/19/2021, Additional history exists Depression Screening, Annual for Pts 12 and Over 02/09/2024 02/08/2023 Albumin/Creatinine Ratio 05/01/2024 023, 07/04/2022, 12/02/2010, Additional history exists CKD PHOS USE SMARTSET 28464 05/01/202404/22, 11/04/2022, 02/14/2019 CKD HGB USE SMARTSET 31925 05/15/202405/15, 05/15/2023, 05/11/2023, Additional history exists DXA Scan 11/09/2024 11/09/2022, 01/21, 11/03/2015, Additional history exists DTaP,Tdap,and Td Vaccines (3 - Td or Tdap) 06/04/2029 06/04/2019, 01/28/2019, 05/26/2008 Pneumococcal Vaccine: 65+ Years Completed 05/24/2016, 11/14/2001 COVID-19 Vaccine Completed 09/29/2022, , 01/05/2021, Additional history exists VITAMIN D LEVEL ONCE IN A LIFETIME-USE SMARTSET# [id number] Completed 05/01/2023, 11/04/2022, 02/14/2019, Additional history exists [...] of this encounter Visit Diagnoses Diagnosis S/P CABG (coronary artery bypass graft)- Primary Postsurgical aortocoronary bypass status S/P aortic valve replacement Heart valve replaced by other means Persistent atrial fibrillation (HCC) Atrial fibrillation Heart failure, diastolic, with acute decompensation (HCC) Acute on chronic diastolic heart failure CHR ISCHEMIC HRT DIS NOS Chronic ischemic heart disease, unspecified documented in this encounter Additional Health Concerns Infection Onset Date Last Indicated Resolved Time Varicella zoster 08/01/2022 08/01/2022 ESBL 01/26/2023 05/01/2023 documented as of this encounter Care Teams Teacher Education Instructor Relationship Specialty Start Date End Date Yaya Frederick MD [address] [place] [phone] PCP - General Family Medicine 05/04/21 documented as of this encounter"
--- OUTSIDE RECORDS SUMMARY | 2023-09-12 22:32 | External Medical Summary | Summary of Care ---
Author Name Unknown Organization [facility] Address [address] [facility] [address] Phone [phone] Care Team Providers Care Sign Language Interpreter Name Role Phone Yaya Frederick MD Primary Care Provider [phone] Reason for Visit * Reason Comments Follow Up Encounter Details Date Type Department Care Team Description 05/31/2023 Telemedicine Hematology/Oncology [facility] [place] [address] [place] [address] Agustín Sullivan MD [address] [place] [address] Essential thrombocythemia (HCC)* Allergies Active Allergy Reactions Severity Noted Date [...] as of this encounter (statuses as of 05/31/2023) Medications Medication Sig Dispensed Refills Start Date [...] SolutionIndications:P ost-nasal discharge Administer into nostril 1 [place] in the morning AND 1 [place] before bedtime. 30 mL 0 11/30/2021 Active Fexofenadine HCl 180 MG Oral Tablet (Lizzette) Take by mouth 1 Tablet daily as needed for Allergies. 90 Tablet 0 01/21/2022 Active Ipratropium [place] 0.03 % Nasal Solution Administer into each [...] as of this encounter (statuses as of 05/31/2023) Active Problems Problem Noted Date Chronic hypoxemic [...] as of this encounter (statuses as of 05/31/2023) Resolved Problems Problem Noted Date Resolved Date [...] Stent Restenosis in Drug-Eluting Stents Project # [id number] Ginning Operator: Wilda Serrano MD [phone] GENOMICS CARDIO RESEARCH OTHER*[id number] 200611/29/2016 Overview: Renamed Per Clinical Trials Billing Project. 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 # [phone] Ginning Operator: Wilda Serrano MD [phone] Type 2 diabetes mellitus wit h hemoglobin [...] as of this encounter (statuses as of 05/31/2023) Immunizations Name Administration Dates Next Due COVID-19 [...] as of this encounter Progress Notes * Agustín Sullivan MD - 05/31/2023 10:45 AM EDT Patient location: HOME. I was in a hospital or clinic location. After connecting through televideo,patient was verified with two unique identifiers. Patient (or authorized legal business office representative) was then informed that this was a Telemedicine visit and being conducted confidentially over secure lines. Methods to assure confidentiality were taken. Patient acknowledged consent and understanding of pr ivacy and security of the Telemedicine visit. The patient agreed to participate. Hematology/Oncology Outpatient Clinic note [facility] [address] [facility] [address] Name: Shannon Cruz Date: 10/26/2021 CHIEF COMPLAINT: Shannon Cruz is a 86 year old female patient here today for f/u visit. DIAGNOSIS: Thrombocytosis since May,. 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 Now she is off the oral iron replacement therapy CURRENT TREATMENT: As of 05/31/2023 , she is on hydroxyurea at 500 mg 5 days in a week. Started on hydroxyurea in November 2017, She is on oral Coumadin for underlying atrial fibrillation. DIAGNOSTIC WORKUP: He had a blood workup done in earlier in late 2014 showed platelet count of 599462, H&H of 13.6/40, WBC of 6300 -WBC 09959, H&H of 13.3/40.2, MCV 96.2, Platelet count of 518,000 (05/24/2016) -Since May, his platelet count has remained on the higher side, recent blood workup done on10/12/2017 showed WBC 8900, H&H of 13.7/45, MCV 95, Platelet count of 622,000, MPV 11.6. She says that she is otherwise doing well, had no thrombotic complications, she is on oral Coumadinfor underlying cardiac arrhythmia in the form of atrial fibrillation. She denies any bleeding from any sites. No new cardiac or pulmonary symptoms, nonsmoker, denies any ETOH abuse. She takes oral iron tablet once a day for some time. Blood workup done on 12/22/2020: - Ferritin level --> 37 - Serum iron 35, TIBC 34, iron saturation 10%. No evidence of iron deficiency noted based on above blood workup findings. She has thrombocytosis since May of 2016. -JAK2 mutation positive, quantitation--> 33.5% OTHER IMPORTANT HISTORY: - Atrial fibrillation, she is on oral Coumadin. -permanent pacemaker placement, she follows with a radiologic technologist chief on a regular basis. -S/P hysterectomy and oophorectomy about 12 years back. HISTORY OF PRESENT ILLNESS: I spoke with her on the phone via video visit, recently she was admitted at [facility], reviewed hospital records, she had mild CV stroke, she is already on oral Coumadin which has been continued, blood workup showed slightly low hemoglobin level, normal Platelet count. Currently she is not on any iron supplementation. She is on hydroxyurea 500 mg once a day for 5 days in a week. Tolerated well, some mild leg edema towards the end of the day, she is on oxygen treatment at home. No new bleeding from any sites. Past Medical History: Diagnosis Date Anticoagulation management encounter 05/05/2006 Atrial fibrillation (HCC) Carotid Stenosis, non-symptomatic 16-49 % bilat. 05/25/2009 Chronic ischemic heart disease HTN, goal below 150/90 09/24/2009 Osteoporosis Social History Socioeconomic History Marital status: Spouse [...] on file Housing Stability: Not on file Past Surgical History: Procedure Laterality Date ATTACH BLADDER/URETHRA, SIMPLE 11/24 [place] CARDIAC CATH-CARDIOLOGY ONLY 04/27 COLONOSCOPY 09/26 polyp- adenoma repeat 10/01 COLONOSCOPY THRU STOMA, W/BIOPSY 07/29/13 adenomatous polyp CYSTOSCOPY 07/12/05 INSERT/REPLACE PULSE GEN ONLY, DOUBLE 04/08/2014 dual chamber mri compatible patecmaker insertion intraoperative fluoroscopic guidance [facility]04/08/14 KNEE ARTHROSCOPY/ARTHROPLASTY 09/2010 dr salcedo LIGATE/CUT OVIDUCT(S) 1963 OTHER 12/27 RCA drug eluting stent REPLACEMENT AORTIC VALVE, BYPASS WITH PROSTHETIC VALVE 04/27 [place] Bovine AVR TOTAL ABD HYSTERECTOMY W/WO REMOVAL OF TUBE(S) 11/24 JADE/BSO Family History Problem Relation Age of Onset Genitourinary Disorder Mother endometriosis; hysterectomy done Diabetes Mother Genitourinary Disorder Daughter endometriosis; hysterectomy done Diabetes Aunt (Unspecified) maternal Diabetes Uncle (Unspecified) maternal Cancer Father prostate Hypertension Father Allergies Father hayfever Heart attack Sister Stroke Sister No Known Problems Brother Heart disease Sister coronary stent Review of patient's allergies indicates: Allergen Reactions [...] % Nasal Solution Administer into nostril 1 [place] in the morning AND 1 [place] before bedtime. 30 mL 0 Fexofenadine HCl 180 MG Oral Tablet (Lizzette) Take by mouth 1 Tablet daily as needed for Allergies.90 Tablet 0 Ipratropium [place] 0.03 % Nasal Solution Administer into each nostril 2 Sprays 2 times a day as needed for Rhinitis. 30 mL 5 Warfarin Sodium 2.5 MG Oral Tablet Up to one tablet daily as directed by the [facility] clinic 100 Tablet 3 Metoprolol Succinate ER 100 MG Oral Tablet Extended Release 24 Hour (toPROL XL) Take 1.5 Tablets (150 mg) by mouth in the morning and 1.5 Tablets (150 mg) before bedtime. (Patient taking differently:Take 1 Tablet by mouth in the morning and 1 Tablet before bedtime.) 270 Tablet 3 oxygen IN GAS Use as directed. 2L at bedtime Estrogens Conjugated 0.625 MG/GM Vaginal Cream (Premarin) Administer 0.5 g into the vagina in the morning. (Patient not taking: Reported on 05/25/2023) 30 g 2 Pantoprazole Sodium 40 MG Oral Tablet Delayed [...] Acidophilus Oral Capsule Take by mouth daily. No current facility-administered medications for this visit. No vital signs as this was a video visit. LABS: Blood workup done on 04/21/2022: -WBC 7300, H&H of 11.9/37, MCV 170, Platelet 250,000. -BUN/Creat: 26/1.1 (02/18/2022). - Ferritin level --> 286 (May 2022). Blood workup done on 11/04/2022: -Absolute reticulocyte count --> 62,800 BUN/Creat: 22/1.2 -WBC 6100, H&H of 11.5/37.4, Platelet 343,000. Blood workup done on 05/15/2023: -WBC 7006, H&H of 11.3/37.9, Platelet count 425696. IMPRESSION: Essential thrombocythemia Presently she is on hydroxyurea at 500 mg 5 days in a week.. I reviewed her blood workup done recently, slight drop in hemoglobin level noted around 11.3. Platelet count is normal. She is already on oral Coumadin treatment for underlying cardiac arrhythmia. Will continue hydroxyurea at the same dose. She will have CBCD checkup every monthly. Will see her back in the clinic about [address] Agustín Sullivan Hem/Onc (This note was completed using the dictation program Fluency Direct. As such, there may be misspellings word substitutions, or other variations that should not change the essence of the clinical content of this encounter note. If there is need for further clarification, please direct questions to the provider listed above.) documented in this encounter Plan of Treatment Upcoming Encounters Date Type Specialty Care Team Description 06/01/2023 Cardiac Studies Cardiology [place] Carlson [address] [place] [address] 06/15/2023 Office Visit Family Medicine Srini Draper MD [address] [place] [phone] 06/15/2023 Laboratory Laboratory [place], [address] [place] [address] 06/16/2023 Anticoagulation Pharmacy Pharmacist, [facility] [address] [place] [address] 06/23/2023 Office Visit Otolaryngology Keely Tanner PA-C [address] [place] [address] 09/13/2023 Office Visit Cardiology Srini Doyle DO [address] [place] [address] 11/20/2023 Office Visit Family Medicine Yaya Frederick MD [address] [place] [address] 12/04/2023 Office Visit Cardiology Bucky Calvo PA-C [address] [place] [address] Health Maintenance Due Date Last Done Comments Zoster Vaccines (1 of 2) 1954 *BISPHONATE OR OTHER ACCEPTABLE MEDICATION NEEDED FOR OSTEOPOROSIS (REFER TO SMARTSET #1146) 10/24/2021 Influenza Vaccine (FLU shot) (#1) 2023 07/04/2022, 07/19/2021, 07/19/2021, Additional history exists Depression Screening, Annual for Pts 12 and Over 02/09/2024 02/08/2023 Albumin/Creatinine Ratio 05/01/2024 023, 07/04/2022, 12/02/2010, Additional history exists CKD PHOS USE SMARTSET 62090 05/01/202404/22, 11/04/2022, 02/14/2019 CKD HGB USE SMARTSET 14599 05/15/202405/15, 05/15/2023, 05/11/2023, Additional history exists DXA Scan 11/09/2024 11/09/2022, 01/21, 11/03/2015, Additional history exists DTaP,Tdap,and Td Vaccines (3 - Td or Tdap) 06/04/2029 06/04/2019, 01/28/2019, 05/26/2008 Pneumococcal Vaccine: 65+ Years Completed 05/24/2016, 11/14/2001 COVID-19 Vaccine Completed 09/29/2022, , 01/05/2021, Additional history exists VITAMIN D LEVEL ONCE IN A LIFETIME-USE SMARTSET# 76279 Completed 05/01/2023, 11/04/2022, 02/14/2019, Additional history exists [...] documented as of this encounter Care Teams Sign Language Interpreter Relationship Specialty Start Date End Date Yaya Frederick MD [address] [place] [address] PCP - General Family Medicine 05/04/21 documented as of this encounter
--- OUTSIDE RECORDS SUMMARY | 2023-09-12 22:32 | External Medical Summary | Summary of Care ---
Author Name Unknown Organization [facility] Address [address] [facility] [address] Phone [phone] Care Team Providers Care Junior Programmer Name Role Phone Yaya Frederick MD Primary Care Provider [phone] Reason for Visit * Reason Comments Outpatient Testing Encounter Details Date Type Department Care Team Description 05/15/2023 [facility] [phone] [address] NSTEMI (non-ST elevated myocardial infarction) (HCC) Allergies Active Allergy Reactions Severity Noted [...] as of this encounter (statuses as of 05/15/2023) Medications Medication Sig Dispensed Refills Start Date [...] SolutionIndications:P ost-nasal discharge Administer into nostril 1 [place] in the morning AND 1 [place] before bedtime. 30 mL 0 11/30/2021 Active Fexofenadine HCl 180 MG Oral Tablet (Lizzette) Take by mouth 1 Tablet daily as needed for Allergies. 90 Tablet 0 01/21/2022 Active Ipratropium [place] 0.03 % Nasal Solution Administer into each nostril 2 Sprays 2 times a day as needed for Rhinitis. 30 mL 5 02/23/2022 Active Warfarin Sodium 2.5 MG Oral TabletIndications:Chr onic ischemic heart disease Up to one tablet daily as directed by the [facility] clinic 100 Tablet 3 08/09/2022 [...] by mouth in the morning. 0 Active Rosuvastatin Calcium 20 MG Oral Tablet (Crestor)Indications: NSTEMI (non-ST elevated myocardial infarction) (HCC) Take 1 Tablet by mouth in the morning. 90 Tablet 5 05/15/2023 Active Hydroxyurea 500 MG Oral Capsule (Hydrea)Indications:E [...] before bedtime. 20 Tablet 0 05/15/2023 Active documented as of this encounter (statuses as of 05/15/2023) Active Problems Problem Noted Date Chronic hypoxemic [...] Health Care Facility current use of anticoagulant t herapy 11/12/2010 [...] as of this encounter (statuses as of 05/15/2023) Resolved Problems Problem Noted Date Resolved Date [...] Stent Restenosis in Drug-Eluting Stents Project # [id number] Auto Painter Helper: Wilda Serrano MD [phone] GENOMICS CARDIO RESEARCH OTHER*[id number] 200611/29/2016 Overview: Renamed Per Clinical Trials Billing Project. 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 # [id number] Auto Painter Helper: Wilda Serrano MD [phone] Type 2 diabetes mellitus wit h hemoglobin A1c goal of less than 7.0% 11/03/2006 08/15/2007 Overview: ICD-10 update of inactive term PURE HYPERCHOLESTEROLEM 11/03/2006 10/01/20 09 Overview: Per Lipid Taxonomy. 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/2008 [facility] current use of anticoagulant therapy 0 05/05/2006 01/23/2009 Overview: ICD-10 update of inactive term Anticoagulation management encounter 05/05/2006 10/03/2019 Unspecified viral infection, in conditions classified elsewhere and of unspecified site 06/08/2005 09/25/2007 Menopause 12/19/2001 12/27/2017 FEM STRESS INCONTINENCE 05/10/2001 12/04/19 02 documented as of this encounter (statuses as of 05/15/2023) Immunizations Name Administration Dates Next Due COVID-19 mRNA, LNP-s, No Pre serve, 2-Dose Series (HotPads) 09/13/2021,01/05/2021,12/15/2020 Covid-19, Mrna, Lnp-s, Pf, B ivalent, [...] Encounters Date Type Specialty Care Team Description 05/22/2023 Office Visit Cardiology Bucky Calvo PA-C [address] [place] [address] 05/31/2023 Telemedicine Hematology Oncology Agustín Sullivan MD [address] [place] [address] 06/13/2023 Anticoagulation Pharmacy Pharmacist, [facility] [address] [place] [address] 06/15/2023 Office Visit Family Medicine Srini Draper MD [address] [place] [address] 06/23/2023 Office Visit Otolaryngology Keely Tanner PA-C [address] [place] [address] 11/20/2023 Office Visit Family Medicine Yaya Frederick MD [address] [place] [address] Pending Results Name Type Priority Associated Diagnoses Date /Time COMPREHENSIVE METABOLIC PANEL Lab Routine NSTEMI (non-ST elevated myocardial infarction) ([facility]) 05/15/2023 3:59 PM EDT CBC WITH WBC DIFFERENTIAL AND ANEMIA REFLEX WORKUP Lab Routine NSTEMI (non-ST elevated myocardial infarction) ([facility]) 05/15/2023 3:59 PM EDT ANEMIA CBC Lab Routine NSTEMI (non-ST elevated myocardial infarction) ([facility]) 05/15/2023 3:59 PM EDT DIFFERENTIAL, AUTOMATED Lab Routine NSTEMI (non-ST elevated myocardial infarction) ([facility]) 05/15/2023 3:59 PM EDT ANEMIA REFLEX CHEMISTRY HOLD Lab Routine NSTEMI (non-ST elevated myocardial infarction) ([facility]) 05/15/2023 3:59 PM EDT Health Maintenance Due Date Last Done Comments Zoster Vaccines (1 of 2) 1954 *BISPHONATE OR OTHER ACCEPTABLE MEDICATION NEEDED FOR OSTEOPOROSIS (REFER TO SMARTSET #1146) 10/24/2021 Influenza Vaccine (FLU shot) (#1) 2023 07/04/2022, 07/19/2021, 07/19/2021, Additional history exists Depression Screening, Annual for Pts 12 and Over 02/09/2024 02/08/2023 Albumin/Creatinine Ratio 05/01/2024 023, 07/04/2022, 12/02/2010, Additional history exists CKD PHOS USE SMARTSET 07051 05/01/202404/22, 11/04/2022, 02/14/2019 CKD HGB USE SMARTSET 06243 05/11/202405/11, 05/11/2023, 05/01/2023, Additional history exists DXA Scan 11/09/2024 11/09/2022, 01/21, 11/03/2015, Additional history exists DTaP,Tdap,and Td Vaccines (3 - Td or Tdap) 06/04/2029 06/04/2019, 01/28/2019, 05/26/2008 Pneumococcal Vaccine: 65+ Years Completed 05/24/2016, 11/14/2001 COVID-19 Vaccine Completed 09/29/2022, , 01/05/2021, Additional history exists VITAMIN D LEVEL ONCE IN A LIFETIME-USE SMARTSET# 36470 Completed 05/01/2023, 11/04/2022, 02/14/2019, Additional history exists [...] documented as of this encounter Care Teams Junior Programmer Relationship Specialty Start Date End Date Yaya Frederick MD [address] [place] [id number] PCP - General Family Medicine 05/04/21 documented as of this encounter
--- OUTSIDE RECORDS SUMMARY | 2023-09-12 22:32 | External Medical Summary | Summary of Care ---
Author Name Unknown Organization [facility] Address [address] [facility] [place] [address] Phone [phone] Care Team Providers Care Vamp Creaser Name Role Phone Yaya Frederick MD Primary Care Provider [phone] Reason for Visit * Reason Comments Outpatient Testing Encounter Details Date Type Department Care Team Description 05/31/2023 Laboratory [facility], [address] [address] Street, Specimen Drop Off [address] [id number] Urinary tract infection without hematuria, site unspecified; Recurrent UTI Allergies Active Allergy Reactions Severity Noted [...] SolutionIndications:P ost-nasal discharge Administer into nostril 1 [place] in the morning AND 1 [place] before bedtime. 30 mL 0 11/30/2021 Active Fexofenadine HCl 180 MG Oral Tablet (Lizzette) Take by mouth 1 Tablet daily as needed for Allergies. 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 # [id number] Paste Mixer: Wilda Serrano MD [phone] Type 2 diabetes mellitus wit h hemoglobin [...] Description 06/01/2023 Cardiac Studies Cardiology [place] [facility] [address] [place] [address] 06/15/2023 Office Visit Family Medicine Srini Draper MD [address] [place] [phone] 06/15/2023 Laboratory Laboratory [place], [address] [place] [address] 06/16/2023 Anticoagulation Pharmacy Pharmacist1, [facility] [address] [place] [address] 06/23/2023 Office Visit Otolaryngology Keely Tanner PA-C [address] [place] [address] 09/13/2023 Office Visit Cardiology Srini Doyle DO [address] [place] [address] 11/20/2023 Office Visit Family Medicine Yaya Frederick MD [address] [place] [address] [place] [address] 12/04/2023 Office Visit Cardiology Bucky Calvo PA-C [address] [place] [address] Pending Results Name Type Priority Associated Diagnoses Date /Time CULTURE, URINE, QUANTITATIVE Lab Routine Urinary tract infection without hematuria, site unspecified 05/31/2023 11:44 AM EDT CULTURE, URINE, QUANTITATIVE Lab Routine Recurrent UTI 05/31/2023 11:44 AM EDT Health Maintenance Due Date Last Done Comments Zoster Vaccines (1 of 2) 1954 *BISPHONATE OR OTHER ACCEPTABLE MEDICATION NEEDED FOR OSTEOPOROSIS (REFER TO SMARTSET #1146) 10/24/2021 Influenza Vaccine (FLU shot) (#1) 2023 07/04/2022, 07/19/2021, 07/19/2021, Additional history exists Depression Screening, Annual for Pts 12 and Over 02/09/2024 02/08/2023 Albumin/Creatinine Ratio 05/01/2024 023, 07/04/2022, 12/02/2010, Additional history exists CKD PHOS USE SMARTSET 37507 05/01/202404/22, 11/04/2022, 02/14/2019 CKD HGB USE SMARTSET 56443 05/15/202405/15, 05/15/2023, 05/11/2023, Additional history exists DXA Scan 11/09/2024 11/09/2022, 01/21, 11/03/2015, Additional history exists DTaP,Tdap,and Td Vaccines (3 - Td or Tdap) 06/04/2029 06/04/2019, 01/28/2019, 05/26/2008 Pneumococcal Vaccine: 65+ Years Completed 05/24/2016, 11/14/2001 COVID-19 Vaccine Completed 09/29/2022, , 01/05/2021, Additional history exists VITAMIN D LEVEL ONCE IN A LIFETIME-USE SMARTSET# 84732 Completed 05/01/2023, 11/04/2022, 02/14/2019, Additional history exists [...] as of this encounter Visit Diagnoses Diagnosis Urinary tract infection without hematuria, site unspecified Recurrent UTI Urinary tract infection, site not specified documented in this encounter Additional Health Concerns Infection Onset Date Last Indicated Resolved Time Varicella zoster 08/01/2022 08/01/2022 ESBL 01/26/2023 05/01/2023 documented as of this encounter Care Teams Vamp Creaser Relationship Specialty Start Date End Date Yaya Frederick MD [address] [place] [address] PCP - General Family Medicine 05/04/21 documented as of this encounter
--- OUTSIDE RECORDS SUMMARY | 2023-09-12 22:33 | External Medical Summary ---
Author Name Unknown Address Unknown Organization K01:[facility] [place] - [address] [place] [address] Laboratory Report Ordering Provider Test Date Status BARI CANDELARIO 05/11/2023 12:43:20 Final Warfarin Therapy
INR: 2 .0-3.0 conventional 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
INR: 2.5- 3.5 high intensity 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 Observation Date Value Abnormality Reference (Units ) Status PT 05/11/2023 12:43:20 29.1 Above high normal 11 .6-15.2 (seconds) Final INR 05/11/2023 12:43:20 2.7 Above high normal 0. 8-1.2 Final Performing Location [facility] [place] - [address] [place] [address]
--- OUTSIDE RECORDS SUMMARY | 2023-09-12 22:33 | External Medical Summary ---
Author Name Unknown Address Unknown Organization [id number][place] [place] [facility] [address] [place] [id number] Laboratory Report Ordering Provider Test Date Status GISELLA RAY 05/15/2023 15:59:15 Final Observation Date Value Abnormality Reference (Units ) Status WBC, Total 05/15/2023 15:59:15 7.64 4.00-10.8 0 (K/uL) Final RBC 05/15/2023 15:59:15 3.33 3.85-5.15 (M/uL) Final Hemoglobin 05/15/2023 15:59:15 11.3 Below low normal 12 .0-15.3 (g/dL) Final Anemia reflex testing trigge rs on a HGB < 12.0 for Females and HGB < 13.0 for Males in accordance with the WHO Anemia Guidelines
Anemia reflex testing triggers on a HGB < 12.0 for Females and HGB < 13.0 for Males in accordance with the WHO Anemia Guidelines HCT 05/15/2023 15:59:15 37.9 36.0-45.2 (%) Final MCV 05/15/2023 15:59:15 113.8 81.5-97.5 (fL) Final MCH 05/15/2023 15:59:15 33.9 27.0-34.0 (pg) Final MCHC 05/15/2023 15:59:15 29.8 32.0-36.0 (g/dL) Final RDW 05/15/2023 15:59:15 14.9 11.5-15.5 (%) Final Platelets 05/15/2023 15:59:15 323 140-400 (K /uL) Final MPV 05/15/2023 15:59:15 11.8 6.6-11.1 ( fL) Final Nucleated erythrocytes/100 leukocytes [Ratio] in Blood by Automated count 05/15/2023 15:59:15 0 <=0 (/100 WBCs) [facility] Performing Location [facility] [place] [address] [facility] [address]
--- OUTSIDE RECORDS SUMMARY | 2023-09-12 22:33 | External Medical Summary ---
Author Name Unknown Address Unknown Organization K01:LABORATORY [facility] - [facility] [address] [place] [address] Laboratory Report Ordering Provider Test Date Status JER FITCH 05/11/2023 12:43:20 Final Observation Date Value Abnormality Reference (Units ) Status WBC, Total 05/11/2023 12:43:20 6.97 4.00-10.80 (K/uL) Final RBC 05/11/2023 12:43:20 3.24 3.85-5.15 (M/uL) Final Hemoglobin 05/11/2023 12:43:20 11.0 Below low normal 12.0-15.3 (g/dL) Final HCT 05/11/2023 12:43:20 37.3 36.0-45.2 (%) Final MCV 05/11/2023 12:43:20 115.1 81.5-97.5 (fL) Final MCH 05/11/2023 12:43:20 34.0 27.0-34.0 (pg) Final MCHC 05/11/2023 12:43:20 29.5 32.0-36.0 (g/dL) Final RDW 05/11/2023 12:43:20 15.2 11.5-15.5 (%) Final Platelets 05/11/2023 12:43:20 318 140-400 (K/uL) Final MPV 05/11/2023 12:43:20 11.3 6.6-11.1 (fL) Final Nucleated erythrocytes/100 leukocytes [Ratio] in Blood by Automated count 05/11/2023 12:43:20 0 <=0 (/100 WBCs) Final Performing Location [facility]ORY [facility] - [address] [address]
--- OUTSIDE RECORDS SUMMARY | 2023-09-12 22:33 | External Medical Summary ---
Author Name Unknown Address Unknown Organization K01:LABORATORY [facility] - [address] [facility] [place] [id number] Laboratory Report Ordering Provider Test Date Status GISELLA RAY 05/15/2023 15:59:15 Final Observation Date Value Abnormality Reference (Units ) Status BUN 05/15/2023 15:59:15 25 Above high normal 6-20 (mg/dL) Final Creatinine 05/15/2023 15:59:15 1.2 Above high normal 0.5-1.0 (mg/dL) Final Glomerular filtration rate/1.73 sq M.predicted [Volume Rate/Area] in Serum, Plasma or Blood by Creatinine-based formula (CKD-EPI) 05/15/2023 15:59:15 44 Below low normal >=60 (mL/min) Final eGFR is calculated based on the CKD-EPI 2020 equation SODIUM 05/15/2023 15:59:15 142 135-146 (m mol/L) Final Potassium 05/15/2023 15:59:15 5.0 3.5-5.1 (m mol/L) Final Cl 05/15/2023 15:59:15 100 98-107 (mm ol/L) Final CO2 05/15/2023 15:59:15 31 22-32 (mmo l/L) Final Anion gap 05/15/2023 15:59:15 11 7-15 (mmol /L) Final Glucose 05/15/2023 15:59:15 114 70-120 (mg /dL) Final Albumin 05/15/2023 15:59:15 4.4 3.8-5.0 (g /dL) Final AST (Aspartate aminotransferase) 05/15/2023 15:59:15 32 10-35 (U/L) Fin al Alk Phos 05/15/2023 15:59:15 100 35-130 (U/ L) Final Bilirubin, Total 05/15/2023 15:59:15 0.6 <=1 .2 (mg/dL) Final Calcium 05/15/2023 15:59:15 10.3 Above high normal 8. 4-10.2 (mg/dL) Final Protein 05/15/2023 15:59:15 7.5 6.0-8.3 (g /dL) Final ALT (Alanine aminotransferase) 05/15/2023 15:59:15 24 10-35 (U/L) Jason cardenas Performing Location LABORATORY [facility] - [address] [facility] [address]
--- OUTSIDE RECORDS SUMMARY | 2023-09-12 22:33 | External Medical Summary ---
Author Name Unknown Address Unknown Organization K01:LABORATORY [facility] - [address] [place] [address] Laboratory Report Ordering Provider Test Date Status GISELLA RAY 05/15/2023 15:59:15 Final Observation Date Value Abnormality Reference (Units ) Status SYNC LEUKOCYTES IN BLOOD BY AUTOMATED COUNT 05/15/2023 15:59:15 7.64 4.00-10.80 (K/uL) Final Segs 05/15/2023 15:59:15 71.7 40.0-75.0 (%) Final Lymphs % 05/15/2023 15:59:15 10.6 Below low normal 18.0-42.0 (%) Final Monos 05/15/2023 15:59:15 12.8 Above high normal 1.0-11.0 (%) Final Eosinophils 05/15/2023 15:59:15 3.5 0.0-6.0 (%) Final Basos 05/15/2023 15:59:15 1.0 0.0-2.0 (%) Final Immature Granulocyte, Percent 05/15/2023 15:59:15 0.4 0.0-2.0 (%) Final Absolute Segs 05/15/2023 15:59:15 5.47 1.80-7.70 (K/uL) Final Lymphs, absolute 05/15/2023 15:59:15 0.81 Below low normal 1.00-4.80 (K/ul) Final Monos, Abs 05/15/2023 15:59:15 0.98 0.00-1.10 (K/uL) Final Eos, Abs 05/15/2023 15:59:15 0.27 0.00-0.70 (K/uL) Final Basos, Abs 05/15/2023 15:59:15 0.08 0.00-0.20 (K/uL) Final Immature Granulocytes, Number 05/15/2023 15:59:15 0.03 0.00-0.20 (K/uL) Final Performing Location LABORATORY [facility] - [facility] [address] [facility] [address]
--- OUTSIDE RECORDS SUMMARY | 2023-09-12 22:33 | External Medical Summary ---
Author Name Unknown Address Unknown Organization K01:[facility]ORY [facility] [place] - [address] [facility] [place] [id number] Laboratory Report Ordering Provider Test Date Status JER FITCH 05/11/2023 12:43:20 Final Observation Date Value Abnormality Reference (Units ) Status SYNC LEUKOCYTES IN BLOOD BY AUTOMATED COUNT 05/11/2023 12:43:20 6.97 4.00-10.80 (K/uL) Final Segs 05/11/2023 12:43:20 69.9 40.0-75.0 (%) Final Lymphs % 05/11/2023 12:43:20 10.2 Below low normal 18.0-42.0 (%) Final Monos 05/11/2023 12:43:20 14.2 Above high normal 1.0-11.0 (%) Final Eosinophils 05/11/2023 12:43:20 4.2 0.0-6.0 (%) Final Basos 05/11/2023 12:43:20 0.9 0.0-2.0 (%) Final Immature Granulocyte, Percent 05/11/2023 12:43:20 0.6 0.0-2.0 (%) Final Absolute Segs 05/11/2023 12:43:20 4.88 1.80-7.70 (K/uL) Final Lymphs, absolute 05/11/2023 12:43:20 0.71 Below low normal 1.00-4.80 (K/ul) Final Monos, Abs 05/11/2023 12:43:20 0.99 0.00-1.10 (K/uL) Final Eos, Abs 05/11/2023 12:43:20 0.29 0.00-0.70 (K/uL) Final Basos, Abs 05/11/2023 12:43:20 0.06 0.00-0.20 (K/uL) Final Immature Granulocytes, Number 05/11/2023 12:43:20 0.04 0.00-0.20 (K/uL) Final Performing Location [facility] [place] - [address] [facility] [address]
--- OUTSIDE RECORDS SUMMARY | 2023-09-12 22:33 | External Medical Summary | Summary of Care ---
Author Name Unknown Organization [facility] Address [address] [facility] [place] [address] Phone [phone] Care Team Providers Care Drainage Inspector Name Role Phone Yaya Frederick MD Primary Care Provider Reason for Visit * Reason Onset Date Comments Test Results Lab 05/12/2023 Encounter Details Date Type Department Care Team Description 05/12/2023 Telephone Hematology/Oncology Treatment, [place] [address] [place] [address] Agustín Sullivan MD [address] [place] [address] Test Results Lab Allergies Active Allergy Reactions [...] as of this encounter (statuses as of 05/12/2023) Medications Medication Sig Dispensed Refills Start Date [...] on 11/21/2022 GRX ANALGESIC BALM EX OINT (andie mcallister) Apply topically to sore muscles as needed 0 07/01/2013 Active LORazepam 0.5 MG Oral Tablet (Ativan)Indications:A nxiety Take 1 Tab by mouth every 8 hours as needed for Anxiety. 270 Tab 0 12/25/2020 Active Azelastine HCl 0.15 % Nasal SolutionIndications:P ost-nasal discharge Administer into nostril 1 [place] in the morning AND 1 [place] before bedtime. 30 mL 0 11/30/2021 Active Fexofenadine HCl 180 MG Oral Tablet (Lizzette) Take by mouth 1 Tablet daily as needed for Allergies. 90 Tablet 0 01/21/2022 Active Ipratropium [place] 0.03 % Nasal Solution Administer into each [...] the morning. 90 Tablet 3 10/03/2022 Active oxygen IN GAS Use as directed. 2L at bedtime 0 Active rOPINIRole HCl 0.5 MG Oral Tablet (Requip)Indications:R LS (restless legs syndrome) Take 1 Tablet by mouth at bedtime. 30 Tablet 5 01/23/2023 Active Additional Information Patient not taking.Reported on 03/24/2023 Hydroxyurea 500 MG Oral Capsule (Hydrea)Indications:E ssential thrombocythemia (HCC) Take 1 capsule by mouth 5 days a week 60 Capsule 3 02/23/2023 Active Phenazopyridine HCl 200 MG Oral Tablet (Pyridium) [...] the morning. 45 Tablet 3 04/10/2023 Active Mometasone Furoate 50 MCG/ACT Nasal SuspensionIndications :Chronic seasonal allergic rhinitis due to pollen Administer 2 Sprays into each nostril in the morning. 51 g 3 05/01/2023 Active Clopidogrel Bisulfate 75 MG Oral Tablet [...] by mouth in the morning. 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 # [id number] [employer] Sprayer [employer]: Wilda Serrano MD [phone] Type 2 diabetes mellitus wit h hemoglobin [...] as of this encounter (statuses as of 05/12/2023) Immunizations Name Administration Dates Next Due COVID-19 [...] Miscellaneous Notes * Telephone Encounter - Carol Garvin RN - 05/12/2023 3:[address] Sullivan: "Blood workup done on 05/11/2023: -WBC 6900 -H&H of 11/37.3, Platelet count 058058. MCV 115. 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 Would like to continue hydroxyurea at the same dose. " Called and spoke to patient who verbalized understanding, confirmed hydrea dose. documented in this encounter Plan of Treatment Upcoming Encounters Date Type Specialty Care Team Description 05/15/2023 Anticoagulation Pharmacy Pharmacist2, [place] [address] [address] 05/15/2023 Office Visit Family Medicine Yaya Frederick MD [address] [place] [address] 05/22/2023 Office Visit Cardiology Bucky Calvo PA-C [address] [place] [address] 05/31/2023 Telemedicine Hematology Oncology Agustín Sullivan MD [address] [facility], [place] [address] 06/23/2023 Office Visit Otolaryngology Keely Tanner PA-C [address] [place] [address] Health Maintenance Due Date Last Done Comments Zoster Vaccines (1 of 2) 1954 *BISPHONATE OR OTHER ACCEPTABLE MEDICATION NEEDED FOR OSTEOPOROSIS (REFER TO SMARTSET #1146) 10/24/2021 Influenza Vaccine (FLU shot) (#1) 2023 07/04/2022, 07/19/2021, 07/19/2021, Additional history exists Depression Screening, Annual for Pts 12 and Over 02/09/2024 02/08/2023 Albumin/Creatinine Ratio 05/01/2024 023, 07/04/2022, 12/02/2010, Additional history exists CKD PHOS USE SMARTSET 01063 05/01/202404/22, 11/04/2022, 02/14/2019 CKD HGB USE SMARTSET 15990 05/11/202405/11, 05/11/2023, 05/01/2023, Additional history exists DXA Scan 11/09/2024 11/09/2022, 01/21, 11/03/2015, Additional history exists DTaP,Tdap,and Td Vaccines (3 - Td or Tdap) 06/04/2029 06/04/2019, 01/28/2019, 05/26/2008 Pneumococcal Vaccine: 65+ Years Completed 05/24/2016, 11/14/2001 COVID-19 Vaccine Completed 09/29/2022, , 01/05/2021, Additional history exists VITAMIN D LEVEL ONCE IN A LIFETIME-USE SMARTSET# 43529 Completed 05/01/2023, 11/04/2022, 02/14/2019, Additional history exists [...] documented as of this encounter Care Teams Drainage Inspector Relationship Specialty Start Date End Date Yaya Frederick MD [address] [place] [phone] PCP - General Family Medicine 05/04/21 documented as of this encounter
--- OUTSIDE RECORDS SUMMARY | 2023-09-12 22:33 | External Medical Summary ---
Author Name Unknown Address Unknown Organization : Laboratory Report Ordering Provider Test Date Status MISTITAYLORANDREBARI 05/15/2023 14:56:21 Final Therapeutic ranges for non-o perative patients:
Prophylaxsis/treatment of DVT: (Range:2.0-3.0)
Treatment of pulmonary embolism:(Range:2.0-3.0)
Prevention of systemic embolism from:
-tissue heart valves
-acute myocardial infarction
-valvular heart disease
-atrial fibrillation
(Range: 2.0-3.0)
Mechanical prosthetic valves: (Range: 2.5-3.5) Observation Date Value Abnormality Reference (Units ) Status INR in Capillary blood by Coagulation assay 05/15/2023 14:56:21 1.9 (INR) Final Performing Location
--- OUTSIDE RECORDS SUMMARY | 2023-09-12 22:33 | External Medical Summary | Summary of Care ---
Author Name Unknown Organization [facility] Address [address] [facility] [place] [address] Phone [phone] Care Team Providers Care Cio Name Role Phone Yaya Frederick MD Primary Care Provider [phone] Reason for Visit * Reason Comments Dosage Adjustment In Person (Anticoag Cl inic) Encounter Details Date Type Department Care Team Description 05/15/2023 Anticoagulation Pharmacy [address] [address] Pharmacist2, [facility] [address] [address] S/P aortic valve replacement* Allergies Active Allergy [...] topically to affected area. 0 07/01/2013 Active LORazepam 0.5 MG Oral Tablet (Ativan)Indications:A nxiety Take 1 Tab by mouth every 8 hours as needed for Anxiety. 270 Tab 0 12/25/2020 Active Additional Information Patient not taking.Reported on 05/15/2023 Azelastine HCl 0.15 % Nasal SolutionIndications:P ost-nasal discharge Administer into nostril 1 [place] in the morning AND 1 [place] before bedtime. 30 mL 0 11/30/2021 Active Fexofenadine HCl 180 MG Oral Tablet (Lizzette) Take by mouth 1 Tablet daily as needed for Allergies. 90 Tablet 0 01/21/2022 Active Ipratropium [place] 0.03 % Nasal Solution Administer into each nostril 2 Sprays 2 times a day as needed for Rhinitis. 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 # [id number] Fiberglass Ski Maker: Wilda Serrano MD [phone] Type 2 diabetes mellitus wit h hemoglobin A1c goal of less than 7.0% 11/03/2006 08/15/2007 Overview: ICD-10 update of inactive term PURE HYPERCHOLESTEROLEM 11/03/2006 10/01/20 09 Overview: Per Lipid Taxonomy. 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/2008 custodial current use of anticoagulant therapy 0 05/05/2006 [...] mRNA, LNP-s, No Pre serve, 2-Dose Series (Wooop) 09/13/2021,01/05/2021,12/15/2020 Covid-19, Mrna, Lnp-s, Pf, B ivalent, [...] this encounter Progress Notes * Raquel Alcantara, [facility] - 05/15/2023 2:42 PM EDT Images from the original note were not included. Medication Therapy Disease Management - Anticoagulation Patient: Shannon Cruz : 1935 Current Warfarin Dose As of 05/15/2023 Warfarin maintenance plan: 0 mg every Wed; 1.25 mg (2.5 mg x 0.5) all other days Patient-Reported Symptoms: Patient Findings Positives: Change in health (Patient recently admitted to [facility] for NSTEMI/Stroke), Change in medications (Patient was started on Plavix, Losartan, and augmentin) Negatives: Signs/symptoms of thrombosis, Signs/symptoms of bleeding, Change in alcohol use, Change in activity, Upcoming invasive procedure, Missed doses, Extra doses, Change in diet/appetite, Bruising INR Result As of 05/15/2023 INR goal: 2.0-3.0 INR used for dosin.9 (05/15/2023) Warfarin Plan As of 05/15/2023 Full warfarin instructions: 05/15: 2.5 mg; Otherwise 0 mg every Wed; 1.25 mg all other days Next INR check: 06/12/2023 Additional Dosing Information: Description Sent orders to [facility] at Fax#: [phone] Please call results to [facility] at Or Fax to [phone] Repeat PT/INR in 4 week(s) Weekly dose: not changed Raquel Alcantara [facility] Clinical Pharmacist 05/15/2023, 2:42 PM documented in this encounter Plan of Treatment Upcoming Encounters Date Type Specialty Care Team Description 05/22/2023 Office Visit Cardiology Bucky Calvo PA-C [address] [place] [address] 05/31/2023 Telemedicine Hematology Oncology Agustín Sullivan MD [address] [place] [address], [place] [address] 06/13/2023 Anticoagulation Pharmacy Pharmacist1, [address] [address] 06/23/2023 Office Visit Otolaryngology Keely Tanner PA-C [address] [place] [address] Health Maintenance Due Date Last Done Comments Zoster Vaccines (1 of 2) 1954 *BISPHONATE OR OTHER ACCEPTABLE MEDICATION NEEDED FOR OSTEOPOROSIS (REFER TO SMARTSET #1146) 10/24/2021 Influenza Vaccine (FLU shot) (#1) 2023 07/04/2022, 07/19/2021, 07/19/2021, Additional history exists Depression Screening, Annual for Pts 12 and Over 02/09/2024 02/08/2023 Albumin/Creatinine Ratio 05/01/2024 023, 07/04/2022, 12/02/2010, Additional history exists CKD PHOS USE SMARTSET 19572 05/01/202404/22, 11/04/2022, 02/14/2019 CKD HGB USE SMARTSET 77711 05/11/202405/11, 05/11/2023, 05/01/2023, Additional history exists DXA Scan 11/09/2024 11/09/2022, 01/21, 11/03/2015, Additional history exists DTaP,Tdap,and Td Vaccines (3 - Td or Tdap) 06/04/2029 06/04/2019, 01/28/2019, 05/26/2008 Pneumococcal Vaccine: 65+ Years Completed 05/24/2016, 11/14/2001 COVID-19 Vaccine Completed 09/29/2022, , 01/05/2021, Additional history exists VITAMIN D LEVEL ONCE IN A LIFETIME-USE SMARTSET# 43290 Completed 05/01/2023, 11/04/2022, 02/14/2019, Additional history exists [...] Comments INR FINGERSTICK, POINT OF CARE STAT 05/15/2023 2:56 PM EDT S/P aortic valve replacement documented in this encounter Results * INR FINGERSTICK, POINT OF CARE (05/15/2023 2:56 PM EDT) Fingerstick INR 1.9 INR 3:14 PM EDT [facility] Blood 05/15/2023 2:56 PM EDT 05/15/2023 3:14 PM EDT Narrative [facility] - 05/15/2023 3:14 PM EDT Therapeutic ranges for non-operative patients: Prophylaxsis/treatment of DVT: (Range:2.0-3.0) Treatment of pulmonary embolism:(Range:2.0-3.0) Prevention of systemic embolism from: -tissue heart valves -acute myocardial infarction -valvular heart disease -atrial fibrillation (Range: 2.0-3.0) Mechanical prosthetic valves: (Range: 2.5-3.5) Raquel Alcantara [facility] LAB POINT OF CA RE TEST DOCKED DEVICE UNSOLICITED RESULTS [facility] [place] [address] documented in this encounter Visit Diagnoses Diagnosis S/P aortic valve replacement- Primary Heart valve replaced by other means documented in this encounter Additional Health Concerns Infection Onset Date Last Indicated Resolved Time Varicella zoster 08/01/2022 08/01/2022 ESBL 01/26/2023 05/01/2023 documented as of this encounter Care Teams Cio Relationship Specialty Start Date End Date Yaya Frederick MD [address] [facility] [place] [address] PCP - General Family Medicine 05/04/21 documented as of this encounter
--- OUTSIDE RECORDS SUMMARY | 2023-09-12 22:33 | External Medical Summary | Summary of Care ---
Author Name Unknown Organization [facility] Address [address] [facility] [place] [address] Phone [phone] Care Team Providers Care Cath Lab Manager Name Role Phone Yaya Frederick MD Primary Care Provider [phone] Reason for Visit * Reason Onset Date Comments Follow Up Hospital Follow-Up 05/15/2023 Encounter Details Date Type Department Care Team Description 05/15/2023 Office Visit [address] [id number] Yaya Frederick MD [address] [place] [address] [phone] Hospital discharge follow-up*; NSTEMI (non-ST elevated myocardial infarction) (HCC); Lacunar infarct, acute (HCC); Obstructive sleep apnea of adult; S/P angioplasty with stent; S/P aortic valve replacement; Cardiac pacemaker in situ; Recurrent UTI; Chronic hypoxemic respiratory failure ([facility]); Risk and functional assessment; Essential thrombocythemia (HCC); Chronic seasonal allergic rhinitis due to pollen; Anxiety state Allergies Active Allergy Reactions Severity Noted Date [...] 0 06/17/2009 Active MAG-OXIDE 400 MG PO TABSIndications:Day Habilitation Specialist jayda ischemic heart disease one tablet twice a day 60 Tab 5 01/05/2011 Active Additional Information Patient taking differently: 400 mgOralDaily(AM), Reported on 11/21/2022 GRX ANALGESIC BALM EX OINT Apply topically to affected area. 0 07/01/2013 Active Azelastine HCl 0.15 % Nasal SolutionIndications: Post-nasal discharge Administer into nostril 1 [place] in the morning AND 1 [place] before bedtime. 30 mL 0 11/30/2021 Active Fexofenadine HCl 180 MG Oral Tablet (Lizzette) Take by mouth 1 Tablet daily as needed for Allergies. 90 Tablet 0 01/21/2022 Active Ipratropium [place] 0.03 % Nasal Solution Administer into each [...] 05/15/2023 Active Hydroxyurea 500 MG Oral Capsule (Hydrea)Indications: [...] before bedtime. 20 Tablet 0 05/15/2023 Active LORazepam 0.5 MG Oral Tablet (Ativan)Indications: Anxiety Take 1 Tab by mouth every 8 hours as needed for Anxiety. 270 Tab 0 12/25/2020 05/15/20 23 Discontinu ed(Medicat ion List Clean Up) Hydroxyurea 500 MG Oral Capsule (Hydrea)Indications: Essential thrombocythemia (HCC) Take 1 capsule by mouth 5 days a week 60 Capsule 3 02/23/2023 05/15/20 23 Discontinu ed(Refill) Mometasone Furoate 50 MCG/ACT Nasal SuspensionIndication s:Chronic seasonal allergic rhinitis due to pollen Administer 2 Sprays into each nostril in the morning. 51 g 3 05/01/2023 05/15/20 23 Discontinu ed(Refill) documented as of this [...] Stent Restenosis in Drug-Eluting Stents Project # [id number] Rolled Gold Plater: Wilda Serrano MD [phone] GENOMICS CARDIO RESEARCH OTHER*[id number] 200611/29/2016 Overview: Renamed Per Clinical Trials Billing Project. 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 # [id number] Rolled Gold Plater: Wilda Serrano MD [phone] Type 2 diabetes mellitus wit h hemoglobin A1c goal of less than 7.0% 11/03/2006 08/15/2007 Overview: ICD-10 update of inactive term PURE HYPERCHOLESTEROLEM 11/03/2006 10/01/20 09 Overview: Per Lipid Taxonomy. 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/2008 [facility] current use of anticoagulant therapy 0 05/05/2006 [...] mRNA, LNP-s, No Pre serve, 2-Dose Series ([employer]) 09/13/2021,01/05/2021,12/15/2020 Covid-19, Mrna, Lnp-s, Pf, B ivalent, 30 Mcg, IM, 12 yrs and above ([employer]) 09/29/2022 H1N1 2009 Influenza, IM 10/08/2009 Pneumococcal [...] Sign Reading Time Taken Comments Blood Pressure 126/82 05/15/2023 2:47 PM EDT Pulse 77 05/15/2023 2:47 PM EDT Temperature 37 C (98.6 F) 05/15/2023 2:47 PM EDT Respiratory Rate 18 05/15/2023 2:47 PM EDT Oxygen Saturation 99% 05/15/2023 2:47 PM EDT Inhaled Oxygen Concentration - - Weight 79.9 kg (176 lb 1.6 oz) 05/15/2023 2:47 P M EDT Height - - Body Mass Index 35.55 02/24/2023 10:21 AM EDT documented in this encounter Patient Instructions * Patient Instructions* Kiley Ojeda, MED ASSIST - 05/15/2023 2:49 PM EDT Patient Instructions - Fall Prevention (This education is for all patients over 65 regardless of symptoms) Remember to take your current medications as prescribed. In order to prevent falls, you are encouraged to: Exercise Utilize assistive/adaptive devices Avoid multifocal lenses when walking Avoid hazards in home Maintain a regular toileting schedule Any questions please contact our office. Preventing Falls in the Home (This education is for all patients over 65 regardless of symptoms) As you get older, falls are more likely. Thats because your reaction time slows. Your muscles and joints may also get stiffer, making them less flexible. Illness, medications, and vision changes can also affect your balance. A fall could leave you unable to live on your own. To make your home safer, follow these tips: Floors Put nonskid pads under area rugs Remove throw rugs Replace worn floor coverings Tack carpets firmly to each step on carpeted stairs. Put nonskid strips on the edges of uncarpeted stairs Keep floors and stairs free of clutter and cords Arrange furniture so there are clear pathways Clean up any spills right away Bathrooms Install grab bars in the tub or shower Apply nonskid strips or put a nonskid rubber mat in the tub or shower Sit on a bath chair to bathe Use bathmats with nonskid backing Lighting Keep a flashlight in each room Put a nightlight along the pathway between the bedroom and the bathroom Mandie Patient Education Copyright 2008 - 2010 Mandie except where otherwise noted Preventing Falls: Exercises to Improve Balance, Flexibility, Strength, and Staying Power (This education is for all patients over 65 regardless of symptoms) Certain types of exercises may help make you less likely to fall. Try the ones below. Or do other exercises that your healthcare provider suggests. Depending on your health, you may need to start slowly. Dont let that stop you. Even small amounts of exercise can help you. Be sure to talk to yourhealthcare provider before starting any exercise program. Improve Balance Many types of exercise can help improve balance. Lucio chi and yoga are good examples. Heres another one to try. You can do it anytime and almost anywhere. Stand next to a counter or solid support. Push yourself up onto your tiptoes. Hold for 5 seconds. If you start to lose your balance, hold on to the counter. Rest and repeat 5 times. Work up to holding for 20 to 30 seconds, if you can. Increase Flexibility Being more flexible makes it easier for you to move around safely. Try exercises like the seated hamstring stretch. Sit in a chair and put one foot on a stool. Straighten your leg and reach with both hands down either side of your leg. Reach as far down your leg as you can. Hold for about 20 seconds. Go back to the starting position. Then repeat 5 times. Switch legs. Build Strength Resistance exercises help build strength. You can do them without equipment. Or you can use weights, elastic bands, or special machines. One such exercise is called the biceps curl. You can hold a 1 pound weight or even a can of soup. Do this exercise at least 3 times a week. Strive for everyday. Sit up straight in a chair. Keep your elbow close to your body and your wrist straight. Bend your arm, moving your hand up to your shoulder. Then slowly lower your arm. Repeat 5 times. Switch to the other arm. Build Your Staying Power Aerobic exercises make your heart and lungs stronger so you can keep moving longer. Walking and swimming are two of the best types of exercises you can do. Using a stationary bike is great, too. Find an aerobic exercise that you enjoy. Start slowly and build up. Even 5 minutes is helpful. Aimfor a goal of 30 minutes, at least 3 times a week. You dont have to do 30 minutes in one session. Break it up and walk a little throughout the day. More Helpful Tips Start easy. Slowly work up to doing more. Talk with your healthcare provider about the best exercises for you. Call senior centers or health clubs about exercise programs. If needed, have a family member watch you walk every so often to check your stability. Exercise with a friend. Choose an activity you both enjoy. Try exercises that you can do anytime, anywhere. Here are two examples. Have someone with you when you first try these: Practice walking by placing one foot right in front of the other. Stand up and sit down 10 times. Repeat this throughout the day. Mandie Patient Education Copyright 2008 - 2010 Mandie except where otherwise noted. Preventing Falls: Moving Safely Using a Cane or Walker (This education is for all patients over 65 regardless of symptoms) Keep the cane away from your feet so you dont trip. A walking aid, such as a cane or walker, can help you stay more independent and avoid falls. Remember to keep your walking aid within easy reach when youre in a chair or in bed. And learn how to use it safely so you dont injure yourself. Using a Cane If you have a stronger side, hold the cane on that side. 17. Get your balance. 18. Move the cane and your weaker leg forward. 19. Support your weight on both the cane and your weaker side. 20. Step with your stronger leg. 21. Start again from step 1. If youre using a folding walker, be sure you know how to lock it open. Check that its locked open before each use. Using a Walker 7. Roll the walker (or lift it, if youre using one without wheels) forward about 12 inches. 8. Step forward with your weaker leg first. 9. Use the walker to help keep your balance. 10. Bring your other foot forward to the center of the walker. 11. Start again from step 1. Helpful Tips Check with your healthcare provider about the right walking aid to use. Ask about a walker with a seat attached. Check the tips of your cane or walker to make sure they have nonskid covers. Move slowly from room to room. Dont castrejon. Sit down to get dressed. Use a miriam pack or backpack to keep your hands free. Get help for jobs that mean climbing, even on a stepstool. Mandie Patient Education Copyright 2008 - 2010 Mandie except where otherwise noted. Urinary Incontinence Plan of Care Documentation: (This education is for all patients over 65 regardless of symptoms) Current medications reconciled. Patient encouraged to: Practice kegal exercises Provide education materials Use the restroom every 2 hours throughout the day Limit caffeine, alcohol, spicy foods and acidic foods Keep a bladder diary Limit fluid intake 3-4 hours before bed Lose weight Prevent constipation Take fluid pills at a time when you can get to the bathroom quickly Control sugar better if diabetic Limit fluid intake to 60 oz. per day Wear support stockings (TEDs)if you have edema Kiley Ojeda MED ASSIST 05/15/2023 Kegel Exercises Kegel exercises dont require special clothing or equipment. Theyre easy to learn and simple to do. And if you do them right, no one can tell youre doing them, so they can be done almost anywhere. Your doctor, nurse, or physical therapist can answer any questions you have and help you get started. A Weak Pelvic Floor The pelvic floor muscles may weaken due to aging, and vaginal childbirth, injury, surgery, chronic cough, or lack of exercise. If the pelvic floor is weak, your bladder and other pelvic organs may sag out of place. The urethra may also open too easily and allow urine to leak out. Kegel exercises can help you strengthen your pelvic floor muscles so they can better support the pelvic organs and control urine flow. How Kegel Exercises Are Done Try each of the Kegel exercises described below. When youre doing them, try not to move your leg, buttock, or stomach muscles. While youre urinating, try to stop the flow of urine. Start and stop it as often as you can. Contract as if you were stopping your urine stream, but do it when youre not urinating. Tighten your rectum as if trying not to pass gas. Contract your anus, but dont move your buttocks. Helpful Hints Do your Kegels as often as you can. The more you do them, the faster youll feel the results. Pick an activity you do often as a reminder. For instance, do your Kegels every time you sit down. Tighten your pelvic floor before you sneeze, get up from a chair, cough, laugh, or lift. This protects your pelvic floor from injury and can help prevent urine leakage. Try to hold each Kegel for a slow count to five. You probably wont be able to hold them for thatlong at first, but keep practicing. It will get easier as your pelvic floor gets stronger. Eventually, special weights that you place in your vagina may be recommended to help make your Kegels even more effective. Mandie Patient Education Copyright 2009 - 2010 Mandie except where otherwise noted. Here are some helpful tips for your urinary incontinence: (This education is for all patients over 65 regardless of symptoms) Practice Kegel exercises Use the restroom every 2 hours throughout the day Limit caffeine, alcohol, spicy foods, and acidic foods Keep a bladder diary Limit fluid intake 3-4 hours before bed Lose weight Prevent constipation Take fluid pills at a time when can get to the bathroom quickly Control sugar better if diabetic Limit fluid intake to 60 oz. per day Any questions, please feel free to contact our office. Taking Medicine Safely Medicine is given to help treat or prevent illness. But if you don't take it correctly, it might not help. It might even harm you. Your doctor or pharmacist can help you learn the right way to take your medicine. Listed below are some tips to help you take medicine safely. Safety Tips Have a routine for taking each medicine. Make it part of something you do each day, such as brushing your teeth or eating a meal. When you go to the hospital or your doctor's office, bring all your current medicines in their original boxes or bottles. If you can't do that, bring an up-to-date list of your medicines. Do not stop taking a prescription medicine unless your doctor tells you to. Doing so could make your condition worse. Do not share medicines. Let your doctor and pharmacist know of any allergies you have. Taking prescription medicines with alcohol, street drugs, herbs, supplements, or even some tiyp-znf-[id number] medicines can be harmful. Talk to your doctor or pharmacist before using any of these things while taking a prescription medicine. When filling your prescriptions, try using the same pharmacy for all your medicines. If not, let the pharmacist know what medicines you are already on. Keep medicines out of the reach of children and pets. Do not use medicine that has or that doesn't look or smell right. Get rid of it properly. To find out the right way to get rid of medicine: Call your [facility] or [facility] government's household trash and recycling service and ask if a drug take-back program is available in your community. Call your local pharmacy and ask the right way to get rid of the medicine. Go to http://www.fda.gov/ForConsumers/ConsumerUpdates/wct923146 to learn how to get rid of medicines safely. Using Generic Medicines Medicines have brand names and generic (chemical) names. When a medicine is first made, it is sold only under its brand name. Later, it can be made and sold as a generic. Generic medicines cost less than brand-name medicines and most work just as well. Most people can use the generic medicine instead of the brand-name medicine, unless their doctor says otherwise. 8739-5094 [place] [address]. All rights reserved. This information is not intended as a substitute for professional medical care. Always follow your healthcare professional's instructions. documented in this encounter Progress Notes * Yaya Frederick MD - 05/15/2023 3:31 PM EDT SUBJECTIVE: Shannon Cruz is a 88 year old female. Chief Complaint Patient presents with Follow Up Hospital Follow-Up Recent Admission: Patient was recently admitted to [facility] on 05/02/23. The date of discharge was 05/09/23. Discharge report received and reviewed. HPI: seen with son Recent hospital admission for NSTEMI/stroke Medical management Reviewed MRI/CT head, ECHO,labs She lives on her own with son being 2 miles away and has an Abine/[employer] connection in case of emergency Medication compliant-refills done She is now using 3L/' continuous oxygen Feeling better Uses walker to help mobility She is on augmentin for uti with plan to repeat urine culture post antibiotics and if infection still persistent we can take opinion from infectious disease ADVISED NOT TO DRIVE FOR AT LEAST 12 WEEKS Does not use CPAP due to claustrophobia She would like to try a mask for oxygen in the night instead of canula as it rubs against inside ofnose 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 Restless legs syndrome G25.81 Asymptomatic bilateral carotid artery stenosis I65.23 HTN, goal below 150/90 I10 DYSLIPIDEMIA, GOAL LDL BELOW 70 E78.5 [facility] current use of anticoagulant therapy Z79.01 Cardiac pacemaker in situ Z95.0 Sinus node dysfunction (HCC) I49.5 Lumbar spinal stenosis M48.061 Essential thrombocythemia ([facility]) D47.3 Hx of nonmelanoma skin cancer Z85.828 Bilateral leg edema R60.0 Paroxysmal atrial fibrillation ([facility]) I48.0 Obstructive sleep apnea of adult G47.33 Hypertensive kidney disease with stage 3a chronic kidney disease ([facility]) I12.9, N18.31 Hx of actinic keratosis Z87.2 Chronic hypoxemic respiratory failure ([facility]) J96.11 Chronic heart failure with preserved ejection fraction (HFpEF) ([facility]) I50.32 Current Outpatient Medications Medication Sig Dispense Refill [...] % Nasal Solution Administer into nostril 1 [place] in the morning AND 1 Spraybefore bedtime. 30 mL 0 Fexofenadine HCl 180 MG Oral Tablet (Lizzette) Take by mouth 1 Tablet daily as needed for Allergies. 90 Tablet 0 Ipratropium [place] 0.03 % Nasal Solution Administer into each nostril 2 Sprays 2 times a day as needed for Rhinitis. 30 mL 5 Warfarin Sodium 2.5 MG Oral Tablet Up to one tablet daily as directed by the [facility] 100 Tablet 3 Metoprolol Succinate ER 100 MG Oral Tablet Extended Release 24 Hour (toPROL XL) Take 1.5 Tablets (150 mg) by mouth in the morning and 1.5 Tablets (150 mg) before bedtime. 270 Tablet 3 Rosuvastatin Calcium 10 MG Oral Tablet (Crestor) Take 1 Tablet (10 mg) by mouth in the morning.(Patient taking differently: Take 2 Tablets by mouth in the morning.) 90 Tablet 3 oxygen IN GAS Use as directed. 2L at bedtime Hydroxyurea 500 MG Oral Capsule (Hydrea) Take 1 capsule by mouth 5 days a week 60 Capsule 3 Estrogens Conjugated 0.625 MG/GM Vaginal Cream (Premarin) Administer 0.5 g into the vagina in the morning. 30 g 2 Pantoprazole Sodium 40 MG Oral Tablet Delayed Release (Protonix) Take 1 Tablet by mouth in the morning. 90 Tablet 1 Torsemide 20 MG Oral Tablet (Demadex) 2 pills one daily alternating with 3 pills the next day 100 Tablet 2 Spironolactone 25 MG Oral Tablet (Aldactone) Take 0.5 Tablets by mouth in the morning. 45 Tablet 3 Mometasone Furoate 50 MCG/ACT Nasal Suspension Administer 2 Sprays into each nostril in the morning. 51 g 3 Clopidogrel Bisulfate 75 MG Oral Tablet (pLAVix) Take 1 Tablet by mouth in the morning. Losartan Potassium 25 MG Oral Tablet (Cozaar) Take 0.5 Tablets by mouth in the morning. Amoxicillin-Pot Clavulanate 500-125 MG Oral Tablet (Augmentin) Take 1 Tablet by mouth in the morning and 1 Tablet in the evening. Advanced Probiotic Oral Capsule Take 2 Capsules by mouth in the morning. LORazepam 0.5 MG Oral Tablet (Ativan) Take 1 Tab by mouth every 8 hours as needed for Anxiety. (Patient not taking: Reported on 05/15/2023) 270 Tab 0 rOPINIRole HCl 0.5 MG Oral Tablet (Requip) Take 1 Tablet by mouth at bedtime. (Patient not taking: Reported on 03/24/2023) 30 Tablet 5 Phenazopyridine HCl 200 MG Oral Tablet (Pyridium) 1 tablet every 8 hours as needed After meals for pain with urination (Patient not taking: Reported on 03/24/2023) 30 Tablet 0 No current facility-administered medications for this visit. Current and discharge medications have been reconciled. Review of patient's allergies indicates: Allergen Reactions Amiodarone Edema face/lips/tongue, Edema Other and Rash legs Keflex [Cephalexin] Rash Unsure if this was a true reaction from Keflex Etodolac lodine; pruritis Penicillins Rash, burning and itching after 2nd dose in her 60's Sulfa Antibiotics Rash Tape [Adhesive Tape] Rash Zithromax [Azithromycin] Throat felt swollen. Denies any shortness of breath. Zocor [Simvastatin] OBJECTIVE: BP 126/82 | Pulse 77 | Temp 37 C (98.6 F) (Tympanic) | Resp 18 | Wt 79.9 kg (176 lb 1.6 oz) | SpO2 99% | BMI 35.55 kg/m | BSA 1.82 m REVIEW OF SYSTEMS: Review of Systems Constitutional: Negative. HENT: Negative. Eyes: Negative. Respiratory: Negative. Cardiovascular: Negative. Gastrointestinal: Negative. Endocrine: Negative. Psychiatric/Behavioral: Negative. PHYSICAL EXAM: BP 126/82 | Pulse 77 | Temp 37 C (98.6 F) (Tympanic) | Resp 18 | Wt 79.9 kg (176 lb 1.6 oz) | SpO2 99% | BMI 35.55 kg/m | BSA 1.82 m Physical Exam Cardiovascular: Rate and Rhythm: Regular rhythm. Pulses: Normal pulses. Heart sounds: Normal heart sounds. Pulmonary: Effort: Pulmonary effort is normal. Breath sounds: Normal breath sounds. Abdominal: General: Abdomen is flat. Bowel sounds are normal. Palpations: Abdomen is soft. Musculoskeletal: Cervical back: Normal range of motion. Neurological: General: No focal deficit present. Mental Status: She is alert and oriented to person, place, and time. Psychiatric: Mood and Affect: Mood normal. Behavior: Behavior normal. ASSESSMENT: Hospital discharge follow-up (Primary) Detailed review of hospital discharge NSTEMI (non-ST elevated myocardial infarction) ([facility]) - COMPREHENSIVE METABOLIC PANEL; Future; Expected date: 05/15/2023 - CBC WITH WBC DIFFERENTIAL AND ANEMIA REFLEX WORKUP; Future; Expected date: 05/15/2023 - DISCH MED RECON CUR MED LIS Lacunar infarct, acute ([facility]) MRI brain reviewed Obstructive sleep apnea of adult Does not use CPAP due to claustrophobia S/P angioplasty with stent S/P aortic valve replacement Cardiac pacemaker in situ Recurrent UTI On augmentin now Chronic hypoxemic respiratory failure (HCC) On 3L/' continous oxygen Risk and functional assessment Use Vaseline in nose when not using nasal canula Follow Up: Return in 1 month (on 06/15/2023). PLAN: labs today. Do urine culture after completing augmentin.container/hat provided- labs today Continue present medication(s): Follow up 4-[address] Draper and then 6 months back with me. Yaya Frederick MD documented in this encounter Nursing Notes * BRYN Riggins ASSIST - 05/15/2023 2:45 PM EDT The patient has been properly identified by confirmation of name and date of . Chief Complaint Patient presents with Follow Up Pt needs refill on nitro Nasal spray Needs a new prescription for Crestor she is now taking 20mg. documented in this encounter Plan of Treatment Upcoming Encounters Date Type Specialty Care Team Description 05/22/2023 Office Visit Cardiology Bucky Calvo PA-C [address] [place] [phone] 05/31/2023 Telemedicine Hematology Oncology Agustín Sullivan MD [address] [place] [address] 06/13/2023 Anticoagulation Pharmacy Pharmacist, [address] [address] 06/15/2023 Office Visit Family Medicine Srini Draper MD [address] [place] [phone] 06/23/2023 Office Visit Otolaryngology Keely Tanner PA-C [address] [place] [phone] 11/20/2023 Office Visit Family Medicine Yaya Frederick MD [address] [place], [place] [phone] Pending Results Name Type Priority Associated Diagnoses Date /Time COMPREHENSIVE METABOLIC PANEL Lab Routine NSTEMI (non-ST elevated myocardial infarction) ([facility]) 05/15/2023 3:59 PM EDT CBC WITH WBC DIFFERENTIAL AND ANEMIA REFLEX WORKUP Lab Routine NSTEMI (non-ST elevated myocardial infarction) ([facility]) 05/15/2023 3:59 PM EDT Scheduled Orders Name Type Priority Associated Diagnoses Orde r Schedule COMPREHENSIVE METABOLIC PANEL Lab Routine NSTEMI (non-ST elevated myocardial infarction) ([facility]) Expected: 05/15/2023 (Approximate), Expires: 05/14/2024 CBC WITH WBC DIFFERENTIAL AND ANEMIA REFLEX WORKUP Lab Routine NSTEMI (non-ST elevated myocardial infarction) ([facility]) Expected: 05/15/2023 (Approximate), Expires: 05/15/2024 Health Maintenance Due Date Last Done Comments Zoster Vaccines (1 of 2) 1954 *BISPHONATE OR OTHER ACCEPTABLE MEDICATION NEEDED FOR OSTEOPOROSIS (REFER TO SMARTSET #1146) 10/24/2021 Influenza Vaccine (FLU shot) (#1) 2023 07/04/2022, 07/19/2021, 07/19/2021, Additional history exists Depression Screening, Annual for Pts 12 and Over 02/09/2024 02/08/2023 Albumin/Creatinine Ratio 05/01/2024 023, 07/04/2022, 12/02/2010, Additional history exists CKD PHOS USE SMARTSET 49010 05/01/202404/22, 11/04/2022, 02/14/2019 CKD HGB USE SMARTSET 00576 05/11/202405/11, 05/11/2023, 05/01/2023, Additional history exists DXA Scan 11/09/2024 11/09/2022, 01/21, 11/03/2015, Additional history exists DTaP,Tdap,and Td Vaccines (3 - Td or Tdap) 06/04/2029 06/04/2019, 01/28/2019, 05/26/2008 Pneumococcal Vaccine: 65+ Years Completed 05/24/2016, 11/14/2001 COVID-19 Vaccine Completed 09/29/2022, , 01/05/2021, Additional history exists VITAMIN D LEVEL ONCE IN A LIFETIME-USE SMARTSET# 93496 Completed 05/01/2023, 11/04/2022, 02/14/2019, Additional history exists [...] as of this encounter Visit Diagnoses Diagnosis Hospital discharge follow-up- Primary Other follow-up examination NSTEMI (non-ST elevated myocardial infarction) (HCC) Acute myocardial infarction, subendocardial infarction, episode of care unspecified Lacunar infarct, acute (HCC) Unspecified cerebral artery occlusion with cerebral infarction Obstructive sleep apnea of adult Obstructive sleep apnea (adult) (pediatric) S/P angioplasty with stent Postsurgical percutaneous transluminal coronary angioplasty status S/P aortic valve replacement Heart valve replaced by other means Cardiac pacemaker in situ Recurrent UTI Urinary tract infection, site not specified Chronic hypoxemic respiratory failure (HCC) Chronic respiratory failure Risk and functional assessment Screening for unspecified condition Essential thrombocythemia (HCC) Essential thrombocythemia Chronic seasonal allergic rhinitis due to pollen Anxiety state Anxiety state, unspecified documented in this encounter Additional Health Concerns Infection Onset Date Last Indicated Resolved Time Varicella zoster 08/01/2022 08/01/2022 ESBL 01/26/2023 05/01/2023 documented as of this encounter Care Teams Cath Lab Manager Relationship Specialty Start Date End [place] [address] PCP - General Family Medicine 05/04/21 documented as of this encounter"
--- OUTSIDE RECORDS SUMMARY | 2023-09-12 22:33 | External Medical Summary | Summary of Care ---
Author Name Unknown Organization [facility] Address [address] [facility] [address] Phone [phone] Care Team Providers Care Monotype Caster Name Role Phone Yaya Frederick MD Primary Care Provider [phone] Reason for Visit * Reason Comments Outpatient Testing Encounter Details Date Type Department Care Team Description 05/11/2023 Laboratory [facility] [id number] [address] S/P aortic valve replacement; Essential thrombocythemia (HCC) Allergies Active Allergy Reactions [...] as of this encounter (statuses as of 05/11/2023) Medications Medication Sig Dispensed Refills Start Date [...] SolutionIndications:P ost-nasal discharge Administer into nostril 1 [place] in the morning AND 1 [place] before bedtime. 30 mL 0 11/30/2021 Active Fexofenadine HCl 180 MG Oral Tablet (Lizzette) Take by mouth 1 Tablet daily as needed for Allergies. 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 # [id number] Staple Side Laster: Wilda Serrano MD [phone] Type 2 diabetes mellitus wit h hemoglobin [...] as of this encounter (statuses as of 05/11/2023) Immunizations Name Administration Dates Next Due COVID-19 [...] Care Team Description 05/15/2023 Anticoagulation Pharmacy Pharmacist2, [facility] [address] [place] [address] 05/15/2023 Office Visit Family Medicine Yaya Frederick MD [address] [place] [address] 05/22/2023 Office Visit Cardiology Bucky Calvo PA-C [address] [place] [address] 05/31/2023 Telemedicine Hematology Oncology Agustín Sullivan MD [address] [place], [place] [address] [address] 06/23/2023 Office Visit Otolaryngology Keely Tanner PA-C [address] [place] [address] Pending Results Name Type Priority Associated Diagnoses Date /Time PT INR Lab Routine S/P aortic valve replacement 05/11/2023 12:43 PM EDT CBC WITH WBC DIFFERENTIAL Lab STAT Essential thrombocythemia (HCC) 05/11/2023 12:43 PM EDT CBC Lab STAT Essential thrombocythemia ([facility]) 05/11/2023 12:43 PM EDT DIFFERENTIAL, AUTOMATED Lab STAT Essential thrombocythemia ([facility]) 05/11/2023 12:43 PM EDT Health Maintenance Due Date Last Done Comments Zoster Vaccines (1 of 2) 1954 *BISPHONATE OR OTHER ACCEPTABLE MEDICATION NEEDED FOR OSTEOPOROSIS (REFER TO SMARTSET #1146) 10/24/2021 Influenza Vaccine (FLU shot) (#1) 2023 07/04/2022, 07/19/2021, 07/19/2021, Additional history exists Depression Screening, Annual for Pts 12 and Over 02/09/2024 02/08/2023 Albumin/Creatinine Ratio 05/01/2024 023, 07/04/2022, 12/02/2010, Additional history exists CKD HGB USE SMARTSET 96150 05/01/202405/01, 05/01/2023, 03/22/2023, Additional history exists CKD PHOS USE SMARTSET 73140 05/01/202404/22, 11/04/2022, 02/14/2019 DXA Scan 11/09/2024 11/09/2022, 01/21, 11/03/2015, Additional history exists DTaP,Tdap,and Td Vaccines (3 - Td or Tdap) 06/04/2029 06/04/2019, 01/28/2019, 05/26/2008 Pneumococcal Vaccine: 65+ Years Completed 05/24/2016, 11/14/2001 COVID-19 Vaccine Completed 09/29/2022, , 01/05/2021, Additional history exists VITAMIN D LEVEL ONCE IN A LIFETIME-USE SMARTSET# 24096 Completed 05/01/2023, 11/04/2022, 02/14/2019, Additional history exists [...] other means Essential thrombocythemia (HCC) Essential thrombocythemia documented in this encounter Additional Health Concerns Infection Onset Date Last Indicated Resolved Time Varicella zoster 08/01/2022 08/01/2022 ESBL 01/26/2023 05/01/2023 documented as of this encounter Care Teams Monotype Caster Relationship Specialty Start Date End Date Yaya Frederick MD [address] [place] [address] PCP - General Family Medicine 05/04/21 documented as of this encounter
--- OUTSIDE RECORDS SUMMARY | 2023-09-12 22:34 | External Medical Summary ---
Author Name Unknown Address Unknown Organization K01:[facility] [address] [place] [id number] Laboratory Report Ordering Provider Test Date Status GAVIN CASTELANO 05/01/2023 13:38:36 Final Observation Date Value Abnormality Reference (Units ) Status Magnesium 05/01/2023 13:38:36 2.2 1.5-2.6 (m g/dL) Final Performing Location [facility] - [address] [place] [id number]
--- OUTSIDE RECORDS SUMMARY | 2023-09-12 22:34 | External Medical Summary | Summary of Care ---
Author Name Unknown Organization [facility] Address [address] [facility] [place] [address] Phone [phone] Care Team Providers Care Social Organization Professor Name Role Phone Yaya Frederick MD Primary Care Provider [phone] Encounter Details Date Type Department Care Team Description 05/03/2023 Telephone Cardiology, [facility] [address] [place] [address] Bucky Calvo PA-C [address] [facility], [place] [id number] Allergies Active Allergy Reactions Severity Noted Date [...] as of this encounter (statuses as of 05/03/2023) Medications Medication Sig Dispensed Refills Start Date End Date Status ASPIRIN 81 MG PO CHEW take one tablet daily 34 11 07/11/2007 Active BENADRYL 25 MG PO TABS 1 TABLET [...] SolutionIndications:P ost-nasal discharge Administer into nostril 1 [place] in the morning AND 1 [place] before bedtime. 30 mL 0 11/30/2021 Active Fexofenadine HCl 180 MG Oral Tablet (Lizzette) Take by mouth 1 Tablet daily as needed for Allergies. 90 Tablet 0 01/21/2022 Active Ipratropium [place] 0.03 % Nasal Solution Administer into each [...] the morning. 51 g 3 05/01/2023 Active documented as of this encounter (statuses as of 05/03/2023) Active Problems Problem Noted Date Chronic hypoxemic [...] as of this encounter (statuses as of 05/03/2023) Resolved Problems Problem Noted Date Resolved Date [...] Stent Restenosis in Drug-Eluting Stents Project # [id number] Barman: Wilda Serrano MD [phone] GENOMICS CARDIO RESEARCH OTHER*[id number] 200611/29/2016 Overview: Renamed Per Clinical Trials Billing Project. 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 # [id number] Barman: Wilda Serrano MD [phone] Type 2 diabetes mellitus wit h hemoglobin [...] as of this encounter (statuses as of 05/03/2023) Immunizations Name Administration Dates Next Due COVID-19 mRNA, LNP-s, No Pre serve, 2-Dose Series (Vidavee) 09/13/2021,01/05/2021,12/15/2020 Covid-19, Mrna, Lnp-s, Pf, B ivalent, [...] encounter Miscellaneous Notes * Telephone Encounter - Meena Perez LPN - 05/03/2023 10:40 AM EDT Orders placed * Telephone Encounter - Meena Perez LPN - 05/03/2023 10:40 AM EDT ----- Message from Bucky Calvo PA-C sent at 05/02/2023 2:07 PM EDT ----- Continue as prescribed for now. Check a basic metabolic panel at follow-up. documented in this encounter Plan of Treatment Upcoming Encounters Date Type Specialty Care Team Description 05/08/2023 Cardiac Studies Cardiology [facility] [address] [facility] [place] [address] 05/09/2023 Telemedicine Infectious Disease Marin Pena MD [address] [place] [address] 05/10/2023 Office Visit Hematology Oncology Agustín Sullivan MD [address] [place] [address] 05/11/2023 Laboratory [facility] [place] [address] [place] [address] 05/15/2023 [facility] [address] [place] [address] 05/15/2023 Office Visit Family Medicine Yaya Frederick MD [address] [place], [place] [phone] 05/22/2023 Office Visit Cardiology Bucky Calvo PA-C [address] [place] [address] 06/23/2023 Office Visit Otolaryngology Keely Tanner PA-C [address] [place] [address] Scheduled Orders Name Type Priority Associated Diagnoses Orde r Schedule BASIC METABOLIC PANEL Lab Routine Dyslipidemia, goal LDL below 70 Expected: 08/03/2023 (Approximate), Expires: 05/03/2024 Health Maintenance Due Date Last Done Comments Zoster Vaccines (1 of 2) 1954 *BISPHONATE OR OTHER ACCEPTABLE MEDICATION NEEDED FOR OSTEOPOROSIS (REFER TO SMARTSET #1146) 10/24/2021 Influenza Vaccine (FLU shot) (#1) 2023 07/04/2022, 07/19/2021, 07/19/2021, Additional history exists Depression Screening, Annual for Pts 12 and Over 02/09/2024 02/08/2023 Albumin/Creatinine Ratio 05/01/2024 023, 07/04/2022, 12/02/2010, Additional history exists CKD HGB USE SMARTSET 23607 05/01/202405/01, 05/01/2023, 03/22/2023, Additional history exists CKD PHOS USE SMARTSET 92528 05/01/202404/22, 11/04/2022, 02/14/2019 DXA Scan 11/09/2024 11/09/2022, 01/21, 11/03/2015, Additional history exists DTaP,Tdap,and Td Vaccines (3 - Td or Tdap) 06/04/2029 06/04/2019, 01/28/2019, 05/26/2008 Pneumococcal Vaccine: 65+ Years Completed 05/24/2016, 11/14/2001 COVID-19 Vaccine Completed 09/29/2022, , 01/05/2021, Additional history exists VITAMIN D LEVEL ONCE IN A LIFETIME-USE SMARTSET# 98587 Completed 05/01/2023, 11/04/2022, 02/14/2019, Additional history exists [...] Visit Diagnoses Diagnosis Dyslipidemia, goal LDL below 70- Primary Other and unspecified hyperlipidemia documented in this encounter Additional Health Concerns Infection Onset Date Last Indicated Resolved Time Varicella zoster 08/01/2022 08/01/2022 ESBL 01/26/2023 04/14/2023 documented as of this encounter Care Teams Social Organization Professor Relationship Specialty Start Date [place] [address] PCP - General Family Medicine 05/04/21 documented as of this encounter
--- OUTSIDE RECORDS SUMMARY | 2023-09-12 22:34 | External Medical Summary ---
Author Name Unknown Address Unknown Organization K01:[facility] [place] - [address] [facility] [place] [id number] Laboratory Report Ordering Provider Test Date Status GORDON CASTELAN 05/01/2023 13:38:36 Final Observation Date Value Abnormality Reference (Units ) Status Triglyceride 05/01/2023 13:38:36 104 <=174 ( mg/dL) Final Triglyceride Reference Range s (mg/dL):
<150 Acceptable
150-174 Borderline high
175-499 High
>=500 Very high Cholesterol 05/01/2023 13:38:36 90 <200 (mg /dL) Final Total Cholesterol Reference Ranges (mg/dL):
<200 Desirable
200-239 Borderline high
>=240 High HDL 05/01/2023 13:38:36 37 Below low normal >49 (mg/dL) Final HDL Cholesterol Reference Ra nges (mg/dL):
>=60 High (Desirable)
<50 Low (Undesirable) For Females
<40 Low (Undesirable) For Males NON-HDL CHOLESTEROL 05/01/2023 13:38:36 53 <=159 (mg/dL) Final Non-HDL Cholesterol Referenc e Range (mg/dL):
<100 Target level for high risk ASCVD patient
<130 Optimal for general population
130-159 Near optimal for general population
160-189 Borderline High
190-219 High
>=220 Very High LDL, (calculated) 05/01/2023 13:38:36 32 <= 129 (mg/dL) Final LDL Cholesterol Reference Ra nges (mg/dL):
<70 Target level for high risk ASCVD patient
<100 Optimal for general population
100-129 Near optimal for general population
130-159 Borderline high
160-189 High
>=190 Very high Performing Location [facility] [place] - [address] [place] [address]
--- OUTSIDE RECORDS SUMMARY | 2023-09-12 22:34 | External Medical Summary | Summary of Care ---
Author Name Unknown Organization [facility] Address [address] [place] [address] Phone [phone] Care Team Providers Care Microbiology Technician Name Role Phone Yaya Frederick MD Primary Care Provider [phone] Encounter Details Date Type Department Care Team Description 04/06/2023 Refill Infectious Disease, [place] [address] [place] [address] Tavo Pena MD [address] [place] [address] UTI (urinary tract infection)* Allergies Active Allergy Reactions Severity Noted Date [...] as of this encounter (statuses as of 04/24/2023) Medications Medication Sig Dispensed Refills Start Date End Date Status ASPIRIN 81 MG PO CHEW take one tablet daily 34 11 07/11/20 07 Active BENADRYL 25 MG PO TABS 1 TABLET EVERY 4 TO 6 HOURS NEEDED 0 Active CALTRATE 600+D 600-400 MG-UNIT PO TABS one tablet twice daily 0 06/17/20 09 Active MAG-OXIDE 400 MG PO TABSIndications:Chr onic ischemic heart disease one tablet twice a day 60 Tab 5 01/06/20 11 Active Additional Information Patient taking differently: 400 mgOralDaily(AM), Reported on 11/21/2022 GRX ANALGESIC BALM EX OINT (andie mcallister) Apply topically to sore muscles as needed 0 07/01/20 13 Active LORazepam 0.5 MG Oral Tablet (Ativan)Indications :Anxiety Take 1 Tab by mouth every 8 hours as needed for Anxiety. 270 Tab 0 12/26/19 21 Active Azelastine HCl 0.15 % Nasal SolutionIndications :Post-nasal discharge Administer into nostril 1 Lohman in the morning AND 1 Lohman before bedtime. 30 mL 0 11/30/19 22 Active Fexofenadine HCl 180 MG Oral Tablet (Lizzette) Take by mouth 1 Tablet daily as needed for Allergies. 90 Tablet 0 01/22/20 22 Active Ipratropium Estelline 0.03 % Nasal Solution Administer into each nostril 2 Sprays 2 times a day as needed for Rhinitis. 30 mL 5 02/24/20 22 Active Warfarin Sodium 2.5 MG Oral TabletIndications:C hronic ischemic heart disease Up to one tablet daily as directed by the [facility] clinic 100 Tablet 3 08/09/20 22 Active Mometasone Furoate 50 MCG/ACT Nasal SuspensionIndicatio ns:Chronic seasonal allergic rhinitis due to pollen Administer 2 Sprays into each nostril in the morning. 51 g 1 10/03/20 22 Active Metoprolol Succinate ER 100 MG Oral Tablet Extended Release 24 Hour (toPROL XL)Indications:Hype rtensive kidney disease with stage 3a chronic kidney disease (HCC) Take 1.5 Tablets (150 mg) by mouth in the morning and 1.5 Tablets (150 mg) before bedtime. 270 Tablet 3 10/03/20 22 Active Rosuvastatin Calcium 10 MG Oral Tablet (Crestor)Indication s:Dyslipidemia, goal LDL below 70 Take 1 Tablet (10 mg) by mouth in the morning. 90 Tablet 3 10/03/20 22 Active oxygen IN GAS Use as directed. 2L at bedtime 0 Active rOPINIRole HCl 0.5 MG Oral Tablet (Requip)Indications :RLS (restless legs syndrome) Take 1 Tablet by mouth at bedtime. 30 Tablet 5 01/24/20 23 Active Additional Information Patient not taking.Reported on 03/24/2023 Hydroxyurea 500 MG Oral Capsule (Hydrea)Indications :Essential thrombocythemia (HCC) Take 1 capsule by mouth 5 days a week 60 Capsule 3 02/24/20 23 Active Phenazopyridine HCl 200 MG Oral Tablet (Pyridium) 1 tablet every 8 hours as needed After meals for pain with urination 30 Tablet 0 03/21/20 23 Active Additional Information Patient not taking.Reported on 03/24/2023 Estrogens Conjugated 0.625 MG/GM Vaginal Cream (Premarin)Indicatio ns:Recurrent UTI Administer 0.5 g into the vagina in the morning. 30 g 2 03/24/20 23 Active Pantoprazole Sodium 40 MG Oral Tablet Delayed Release (Protonix)Indicatio ns:Esophagitis Take 1 Tablet by mouth in the morning. 90 Tablet 1 03/28/20 23 Active Spironolactone 25 MG Oral Tablet (Aldactone)Indicati ons:Chronic ischemic heart disease,HTN, goal below 150/90,Old myocardial infarct Take 0.5 Tablets by mouth once a day on Monday, Monday, and Monday only. 40 Tablet 1 02/23/20 23 023 Discontinued Amoxicillin-Pot Clavulanate 875-125 MG Oral Tablet 1 tablet twice daily with food for 10 days 20 Tablet 0 03/21/20 23 023 Discontinued(En d of Procedure) Torsemide 20 MG Oral Tablet (Demadex)Indication s:Chronic ischemic heart disease Take 2 Tablets by mouth in the morning. 1 additional tablet mid day as needed for increase weight. 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/2008 long-term current use of anticoagulant therapy 0 05/05/2006 01/23/2009 Overview: ICD-10 update of inactive term Anticoagulation management encounter 05/05/2006 10/03/2019 Unspecified viral infection, in conditions classified elsewhere and of unspecified site 06/08/2005 09/25/2007 Menopause 12/19/2001 12/27/2017 FEM STRESS INCONTINENCE 05/10/2001 12/04/19 02 documented as of this encounter (statuses as of 04/24/2023) Immunizations Name Administration Dates Next Due COVID-19 mRNA, LNP-s, No Pre serve, 2-Dose Series (No [employer]) 09/13/2021,01/05/2021,12/15/2020 Covid-19, Mrna, Lnp-s, Pf, B ivalent, 30 Mcg, IM, 12 yrs and above (Pfizer) 09/29/2022 H1N1 2009 Influenza, IM 10/08/2009 Pneumococcal Conjugate Vacc, 13 Valent (Prevnar) 05/24/2016 Pneumococcal Polysaccharide PPV23 (Pneumovax) 11/14/2001 Seasonal Influenza Virus Vac cine, Unspecified Formulation 07/19/2021,08/03/2020,07/23/2019,1005/2018,08/29/2017,07/28/2016,07/05/20 16,07/07/2014,07/22/2013,07/03/2012,0 07/12/2011,07/21/2010,09/12/2009,08/04,07/23/2007,08/02/2006, 5,08/14/2003,10/01/2001 Seasonal Influenza, Quadriva lent [...] encounter Miscellaneous Notes * Telephone Encounter - Aishwarya Lange LPN - 04/24/2023 9:07 AM EDT I spoke with Pt and reiterated Dr. Pena's plan. She will call if she has symptoms. Aishwarya Lange LPN Nurse Navigator ID * Telephone Encounter - Nargis Cox - 04/24/2023 8:42 AM EDTPending Prescriptions: Disp Refills Amoxicillin-Pot Clavulanate 500-125 MG Ora*28 Tab*0 Sig: Take 1Tablet by mouth in the morning and 1 Tablet in the evening. Do all this for 14 days. Do not start before April 20, 2023. * Telephone Encounter - GAVIN Hansen - 04/21/2023 6:42 PM EDT Please return call regarding previous messages. Thank you * Addendum Note - Aishwarya Lange LPN - 04/19/2023 12:44 PM EDTAddended by: AISHWARYA LANGE on: 04/19/2023 12:44 PM Modules accepted: Orders * Telephone Encounter - Aishwarya Lange LPN - 04/19/2023 12:[address] Pena, Pt should begin augmentin 500mg BID X's 14 days. If no improvement by day 5 she will call our office and will then be placed on an IV Abx regimen. If improvement with Augmentin, will continue with 1 tab daily after she completes 14 days of BID. Rx pended for 14 days. I called Pt. And explained plan. She asked me how she would know if she is improved since she currently does not have any symptoms. I explained to her that if that is the case she would not need treatment, confirmed this with Dr. Pena. He reports if Pt is symptom free, we will not treat with Abx at this time. Pt aware and will call us when she has symptoms and discussed plan above will be implemented at that time. Aishwarya Lange LPN Nurse Navigator ID * Telephone Encounter - Aishwarya Lange LPN - 04/18/2023 10:23 AM EDT Pt's UA, C & S is now completed. Please review and advise if a treatment is indicated. Thank you! Aishwarya Lange LPN Nurse Navigator ID * Addendum Note - Tavo Pena MD - 04/10/2023 11:19 AM EDTAddended by: TAVO PENA on: 04/10/2023 11:19 AM Modules accepted: Orders * Addendum Note - Aishwarya Lange LPN - 04/10/2023 11:10 AM EDTAddended by: AISHWARYA LANGE on: 04/10/2023 11:10 AM Modules accepted: Orders * Telephone Encounter - Aishwarya Lange LPN - 04/10/2023 10:54 AM EDT I spoke with Dr. Pena, per his note from 03/24. "If Pt's symptoms returned, she will require retesting and treatment". Dr. Pena gave me verbal orders for UA, C & S. (Verbal order read back to physician) Orders pended. Dr. Pena, please review and sign pended orders. I called and spoke with Pt, she is aware and will go to a [facility] facility for urine specimen. NN will watch for results. Aishwarya Lange LPN Nurse Navigator ID * Telephone Encounter - Nargis Cox - 04/07/2023 3:50 PM EDT Patient called in to check on message. She says she is now starting having burning sensation when urinating * Telephone Encounter - Nargis Cox - 04/06/2023 2:44 PM EDT Patient called in to give an update after finishing her abx. She says she is unsure if she is having another UTI. She describes "a burning feeling but not burning", patient was unable to elaborate further what she was feeling. I asked if she was having any similar symptoms from past UTIs, she said she was unsure because she didn't complain of any symptoms with past UTI and that she would only know she had one because of routine labs/urines. Patient denies any fevers, pain, strong odor. Patient says she takes a water pill and is unable to tell if she has any urgency issues because of that. Sheis asking if she should have another urine culture to test for another UTI or not. I did get patient scheduled for her 6 week follow up documented in this encounter Plan of Treatment Upcoming Encounters Date Type Specialty Care Team Description 05/01/2023 Office Visit Cardiology Bucky Calvo PA-C [address] [place] [id number] 05/08/2023 Cardiac Studies [facility]iology [place] [facility] [address] [facility] [facility] [place] [address] 05/09/2023 Telemedicine Infectious Disease Tavo Pena MD [address] [place], [place] [phone] 05/10/2023 Office Visit Hematology Oncology Agustín Sullivan MD [address] [place] [address] 05/11/2023 Laboratory [facility] [place] [address] [place] [address] 05/15/2023 Anticoagulation Pharmacy Pharmacist2, [facility] [address] [place] [address] 05/15/2023 Office Visit Family Medicine Yaya Frederick MD [address] [place] [address] 05/22/2023 Office Visit Cardiology Bucky Calvo PA-C [address] [place] [address] 06/23/2023 Office Visit Otolaryngology Keely Tanner PA-C [address] [place] [address] Health Maintenance Due Date Last Done Comments Zoster Vaccines (1 of 2) 1954 *BISPHONATE OR OTHER ACCEPTABLE MEDICATION NEEDED FOR OSTEOPOROSIS (REFER TO SMARTSET #1146) 10/24/2021 Influenza Vaccine (FLU shot) (#1) 2023 07/04/2022, 07/19/2021, 07/19/2021, Additional history exists Albumin/Creatinine Ratio 07/04/2023 022, 12/02/2010, 09/24/2009, Additional history exists CKD PHOS USE SMARTSET 03968 11/04/2023 11/04/2022, 0 02/14/2019 Depression Screening, Annual for Pts 12 and Over 02/09/2024 02/08/2023 CKD HGB USE SMARTSET 73457 03/22/202403/22, 03/22/2023, 02/23/2023, Additional history exists DXA Scan 11/09/2024 11/09/2022, 01/21, 11/03/2015, Additional history exists DTaP,Tdap,and Td Vaccines (3 - Td or Tdap) 06/04/2029 06/04/2019, 01/28/2019, 05/26/2008 Pneumococcal Vaccine: 65+ Years Completed 05/24/2016, 11/14/2001 COVID-19 Vaccine Completed 09/29/2022, , 01/05/2021, Additional history exists VITAMIN D LEVEL ONCE IN A LIFETIME-USE SMARTSET# 98421 Completed 11/04/2022, 02/14/2019, 06/28/2011, Additional history exists GARDASIL-HPV IMMUNIZATION SERIES Aged [...] filedocumented as of this encounter Results * (ABNORMAL) URINALYSIS, REFLEX TO MICROSCOPIC (04/14/2023 11:37 AM EDT) Color, Urine Yellow Colorless, Light Yellow, Yellow, Dark Yellow 04/15/2023 1:08 AM EDT [facility] Clarity, Urine Slightly Cloudy(A) Clear 04/15/2023 1:08 AM EDT [facility] Glucose, Urine Negative Negative mg/dL 04/15/2023 1:08 AM EDT [facility] Bilirubin, Urine Negative Negative 04/15/20 1:08 AM EDT [facility] Ketone, Urine Negative Negative mg/dL 04/15/2023 1:08 AM EDT [facility] Specific [place], Urine 1.015 1.003 - 1.030 04/15/2023 1:08 AM EDT [facility] Blood, Urine Small(A) Negative 04/15/2023 1:08 AM EDT [facility] pH, Urine 6.5 5.0 - 7.5 Units 04/15/2023 1:08 AM EDT [facility] Protein, Urine 30(A) Negative mg/dL 04/15/2023 1:08 AM EDT [facility] Urobilinogen, Urine Normal Normal mg/dL 04/15/2023 1:08 AM EDT [facility] Nitrite, Urine Negative Negative 04/15/2023 1:08 AM EDT [facility] Esterase, Urine Large(A) Negative 3 1:08 AM EDT [facility] RBC, Urine 3-5(A) 0 - 2 /HPF 04/15/2023 1:08 AM EDT [facility] WBC, Urine 50+(A) 0 - 2 /HPF 04/15/2023 1:08 AM EDT [facility] Bacteria, Urine 151-200(A) 0 - 25 /HPF 04/15/20 1:08 AM EDT [facility] Transitional Epithelial Cells, Urine 1-4(A) None /HPF 04/15/2023 1:08 AM EDT [facility] WBC Clumps, Urine Present(A) None /HPF 04/15/2023 1:08 AM EDT LAB[facility]ATORY [facility] Urine Urine specimen obtained by clean catch procedure / Unknown Non-blood Collection / Unknown 04/14/2023 11:37 AM EDT 04/14/2023 11:37 AM EDT Tavo Pena MD LAB URINE ORDERABLES [facility] [address] [place] [address] * (ABNORMAL) CULTURE, URINE, QUANTITATIVE (04/14/2023 11:37 AM EDT) Pathologist [facility] Culture Growth >100,000 colonies/mL Escherichia coli ESBL producing organism, This patient may require isolation.(A) MICROBROTH DILUTIONS 04/17/2023 2:52 PM EDT [facility] Comment:This gram negative b acilli displays in vitro resistance to multiple antibiotics. This patient may require isolation. Carbapenem use is preferred. Contact infectious disease service for further recommendations. Urine Urine specimen obtained by clean catch procedure / Unknown Non-blood Collection / Unknown 04/14/2023 11:37 AM EDT 04/14/2023 11:37 AM EDT Narrative LABORATORY [facility] - 04/17/2023 2:52 PM EDT <10,000 colonies/ml mixed normal jone Organism Antibiotic Method Susceptibility Escherichia coli ESBL producing organism, This patient may require isolation. Ampicillin MICROBROTH DILUTIONS >=32: Resistant Escherichia coli ESBL producing organism, This patient may require isolation. Ampicillin/Sulbactam MICROBROTH DILUTIONS 16: Intermediate Escherichia coli ESBL producing organism, This patient may require isolation. Cefazolin MICROBROTH DILUTIONS >=64: Resistant Escherichia coli ESBL producing organism, This patient may require isolation. Cefepime MICROBROTH DILUTIONS Susceptible Comment:This is an a ppended report. These results have been appended to a previously preliminary verified report. Escherichia coli ESBL producing organism, This patient may require isolation. Ceftriaxone MICROBROTH DILUTIONS 32: Resistant Escherichia coli ESBL producing organism, This patient may require isolation. Ciprofloxacin MICROBROTH DILUTIONS >=4: Resistant Comment:Due to john us side effects, the FDA has advised against using Ciprofloxacin to treat uncomplicated UTIs and respiratory tract infections unless there are no alternative treatment options. Escherichia coli ESBL producing organism, This patient may require isolation. Gentamicin MICROBROTH DILUTIONS <=1: Susceptible Escherichia coli ESBL producing organism, This patient may require isolation. Levofloxacin MICROBROTH DILUTIONS >=8: Resistant Comment:Due to john us side effects, the FDA has advised against using Levofloxacin to treat uncomplicated UTIs and respiratory tract infections unless there are no alternative treatment options. Escherichia coli ESBL producing organism, This patient may require isolation. Meropenem MICROBROTH DILUTIONS <=0.25: Susceptible Escherichia coli ESBL producing organism, This patient may require isolation. Nitrofurantoin MICROBROTH DILUTIONS <=16: Susceptible Escherichia coli ESBL producing organism, This patient may require isolation. Piperacillin Tazobactam MICROBROTH DILUTIONS <=4: Susceptible Escherichia coli ESBL producing organism, This patient may require isolation. Trimeth/Sulfamethoxazol e MICROBROTH DILUTIONS <=20: Susceptible Escherichia coli ESBL producing organism, This patient may require isolation. Ertapenem BUDDY MADRID 34: Susceptible Tavo Pena MD LAB MICRO - GENERAL ORDERABLES [facility] [address] [place] [address] documented in this encounter Visit Diagnoses Diagnosis UTI (urinary tract infection)- Primary Urinary tract infection, site not specified documented in this encounter Additional Health Concerns Infection Onset Date Last Indicated Resolved Time Varicella zoster 08/01/2022 08/01/2022 ESBL 01/26/2023 04/14/2023 documented as of this encounter Care Teams Microbiology Technician Relationship Specialty Start Date End Date Yaya Frederick MD [address] [place] [id number] PCP - General Family Medicine 05/04/21 documented as of this encounter
--- OUTSIDE RECORDS SUMMARY | 2023-09-12 22:34 | External Medical Summary ---
Author Name Unknown Address Unknown Organization K01:[facility] [address] [place] [id number] Laboratory Report Ordering Provider Test Date Status ABDULKADIR PAYNE 05/01/2023 13:38:36 Final Observation Date Value Abnormality Reference (Units ) Status Phosphate 05/01/2023 13:38:36 2.8 2.5-4.8 (m g/dL) Final Performing Location [facility] [address] [place] [id number]
--- OUTSIDE RECORDS SUMMARY | 2023-09-12 22:34 | External Medical Summary | Summary of Care ---
Author Name Unknown Organization [facility] Address [address] [place] [address] Phone [phone] Care Team Providers Care Oreman Name Role Phone Yaya Frederick MD Primary Care Provider [phone] Encounter Details Date Type Department Care Team Description 04/06/2023 Refill Infectious Disease, [place] [address] [place] [address] Tavo Pena MD [address] [place] [address] UTI (urinary tract infection)* Allergies [...] SolutionIndications :Post-nasal discharge Administer into nostril 1 [place] in the morning AND 1 [place] before bedtime. 30 mL 0 11/30/19 22 Active Fexofenadine HCl 180 MG Oral Tablet (Lizzette) Take by mouth 1 Tablet daily as needed for Allergies. 90 Tablet 0 01/22/20 22 Active Ipratropium [place] 0.03 % Nasal Solution Administer into each nostril 2 Sprays 2 times a day as needed for Rhinitis. 30 mL 5 02/24/20 22 Active Warfarin Sodium 2.5 MG Oral TabletIndications:C hronic ischemic heart disease Up to one tablet daily as directed by the [facility] clinic 100 Tablet 3 08/09/20 22 Active [...] morning. 90 Tablet 1 03/28/20 23 Active Amoxicillin-Pot Clavulanate 500-125 MG Oral Tablet (Augmentin)Indicati ons:UTI (urinary tract infection) Take 1 Tablet by mouth in the morning and 1 Tablet in the evening. Do all this for 14 days. 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 # [id number] Picker Feeder: Wilda Serrano MD [phone] Type 2 diabetes mellitus wit h hemoglobin A1c goal of less than 7.0% 11/03/2006 08/15/2007 Overview: ICD-10 update of inactive term PURE HYPERCHOLESTEROLEM 11/03/2006 10/01/20 09 Overview: Per Lipid Taxonomy. 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/2008 shelter current use of anticoagulant therapy 0 05/05/2006 [...] mRNA, LNP-s, No Pre serve, 2-Dose Series (Roovyn) 09/13/2021,01/05/2021,12/15/2020 Covid-19, Mrna, Lnp-s, Pf, B ivalent, 30 Mcg, IM, 12 yrs and above (Roovyn) 09/29/2022 H1N1 2009 Influenza, IM 10/08/2009 Pneumococcal [...] encounter Miscellaneous Notes * Addendum Note - Tavo Pena MD - 04/24/2023 12:12 PM EDTAddended by: TAVO PENA on: 04/24/2023 12:12 PM Modules accepted: Orders * Telephone Encounter [...] is aware and will go to a [facility] facility for urine specimen. NN will watch for results. Aishwarya Lange LPN Nurse Navigator ID * Telephone Encounter - Nargis Cox - 04/07/2023 3:50 PM EDT Patient called in to check on message. She says she is now starting having burning sensation when urinating * Telephone Encounter - Nargis N Kenny - 04/06/2023 2:44 PM EDT Patient called [...] Visit Cardiology [facility]ucky [facility] [address] [facility] [address] [facility]/08[facility]2023 [facility] [address] [facility] [address] 05/09/2023 Telemedicine Infectious Disease [facility]an [facility] [address] [facility] [phone] 05/10/2023 Office Visit Hematology Oncology Agustín Sullivan MD [address] [facility] [place] [address] 05/11/2023 Laboratory [facility] [place], [address] [place] [address] 05/15/2023 Critical Access Hospital Pharmacy Pharmacist2, [facility] [place] [address] [place] [address] 05/15/2023 Office Visit Family Medicine Yaya Frederick MD [address] [place] [address] 05/22/2023 Office Visit Cardiology Bucky Calvo PA-C [address] [place] [address] 06/23/2023 Office Visit Otolaryngology Keely Tanner PA-C [address] [place] [address] Health Maintenance Due Date Last Done Comments Zoster Vaccines (1 of 2) 1954 *BISPHONATE OR OTHER ACCEPTABLE MEDICATION NEEDED FOR OSTEOPOROSIS (REFER TO SMARTSET #1146) 10/24/2021 Influenza Vaccine (FLU shot) (#1) 2023 07/04/2022, 07/19/2021, 07/19/2021, Additional history exists Albumin/Creatinine Ratio 07/04/2023 022, 12/02/2010, 09/24/2009, Additional history exists CKD PHOS USE SMARTSET 53890 11/04/2023 11/04/2022, 0 02/14/2019 Depression Screening, Annual for Pts 12 and Over 02/09/2024 02/08/2023 CKD HGB USE SMARTSET 76357 03/22/202403/22, 03/22/2023, 02/23/2023, Additional history exists DXA Scan 11/09/2024 11/09/2022, 01/21, 11/03/2015, Additional history exists DTaP,Tdap,and Td Vaccines (3 - Td or Tdap) 06/04/2029 06/04/2019, 01/28/2019, 05/26/2008 Pneumococcal Vaccine: 65+ Years Completed 05/24/2016, 11/14/2001 COVID-19 Vaccine Completed 09/29/2022, , 01/05/2021, Additional history exists VITAMIN D LEVEL ONCE IN A LIFETIME-USE SMARTSET# 65813 Completed 11/04/2022, 02/14/2019, 06/28/2011, Additional history exists [...] 04/15/2023 1:08 AM EDT [facility] Specific [place], Urine 1.015 1.003 - 1.030 04/15/2023 1:08 [...] EDT [facility] [place], Urine Large(A) Negative 1:08 AM EDT [facility] RBC, Urine [...] None /HPF 04/15/2023 1:08 AM EDT LAB[facility]ATORY [facility] Urine Urine specimen obtained by clean catch procedure / Unknown Non-blood Collection / Unknown 04/14/2023 11:37 AM EDT 04/14/2023 11:37 AM EDT Tavo Pena MD LAB URINE ORDERABLES LAB[facility]AT[facility] [address] [place] [address] * (ABNORMAL) CULTURE, URINE, QUANTITATIVE (04/14/2023 11:37 AM EDT) Culture Growth >100,000 colonies/mL Escherichia coli ESBL producing organism, This patient may require isolation.(A) MICROBROTH DILUTIONS 04/17/2023 2:52 PM EDT LABORATORY [facility] Comment:This gram negative b acilli displays in vitro resistance to multiple antibiotics. This patient may require isolation. Carbapenem use is preferred. Contact infectious disease service for further recommendations. Urine Urine specimen obtained by clean catch procedure / Unknown Non-blood Collection / Unknown 04/14/2023 11:37 AM EDT 04/14/2023 11:37 AM EDT [facility] LABORATORY [facility] - 04/17/2023 2:52 PM EDT <10,000 colonies/ml [...] MD LAB MICRO - GENERAL ORDERABLES LABORATORY [facility] [address] [place] [address] documented in this encounter Visit Diagnoses Diagnosis UTI (urinary tract infection)- Primary Urinary tract infection, site not specified documented in this encounter Additional Health Concerns Infection Onset Date Last Indicated Resolved Time Varicella zoster 08/01/2022 08/01/2022 ESBL 01/26/2023 04/14/2023 documented as of this encounter Care Teams Oreman Relationship Specialty Start Date End Date Yaya Frederick MD [address] [place] [id number] PCP - General Family Medicine 05/04/21 documented as of this encounter
--- OUTSIDE RECORDS SUMMARY | 2023-09-12 22:34 | External Medical Summary | Summary of Care ---
Author Name Unknown Organization [facility] Address [address] [facility] [place] [address] Phone [phone] Care Team Providers Care Reports Analyst Name Role Phone Yaya Frederick MD Primary Care Provider [phone] Reason for Visit * Reason Comments Outpatient Testing Encounter Details Date Type Department Care Team Description 05/01/2023 Laboratory Laboratory, [facility] [address] [facility] [place] [address] [facility] [address] [facility] [place] [address] Dyslipidemia, goal LDL below 70; Encounter for monitoring diuretic therapy; Hypertensive kidney disease with stage 3a chronic kidney disease (HCC); Age-related osteoporosis without current pathological fracture; Essential thrombocythemia (HCC) Allergies Active Allergy Reactions [...] as of this encounter (statuses as of 05/01/2023) Medications Medication Sig Dispensed Refills Start Date End Date Status ASPIRIN 81 MG PO CHEW take one tablet daily 34 11 07/11/2007 Active BENADRYL 25 MG PO TABS 1 TABLET EVERY 4 TO 6 HOURS NEEDED 0 Active CALTRATE 600+D 600-400 MG-UNIT PO TABS one tablet twice daily 0 06/17/2009 Active MAG-OXIDE 400 MG PO TABSIndications:Instructor Dancing jayda ischemic heart disease one tablet twice a day 60 Tab 5 01/05/2011 Active Additional Information Patient taking differently: 400 mgOralDaily(AM), Reported on 11/21/2022 GRX ANALGESIC BALM EX OINT (andie mcallister) Apply topically to sore muscles as needed 0 07/01/2013 Active LORazepam 0.5 MG Oral Tablet (Ativan)Indications: Anxiety Take 1 Tab by mouth every 8 hours as needed for Anxiety. 270 Tab 0 12/25/2020 Active Azelastine HCl 0.15 % Nasal SolutionIndications: Post-nasal discharge Administer into nostril 1 [place] in the morning AND 1 [place] before bedtime. 30 mL 0 11/30/2021 Active Fexofenadine HCl 180 MG Oral Tablet (Lizzette) Take by mouth 1 Tablet daily as needed for Allergies. 90 Tablet 0 01/21/2022 Active Ipratropium [place] 0.03 % Nasal Solution Administer into each [...] on 03/24/2023 Hydroxyurea 500 MG Oral Capsule (Hydrea)Indications: Essential [...] 04/10/2023 Active Mometasone Furoate 50 MCG/ACT Nasal SuspensionIndication s:Chronic seasonal allergic rhinitis due to pollen Administer 2 Sprays into each nostril in the morning. 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 # [id number] Senior Application Security Consultant: Wilda Serrano MD [phone] Type 2 diabetes mellitus wit h hemoglobin [...] as of this encounter (statuses as of 05/01/2023) Immunizations Name Administration Dates Next Due COVID-19 [...] Cardiology [facility] 132 [place] [address] 05/09/2023 Telemedicine Infectious Disease Marin Pena MD [address] [place] [address] 05/10/2023 Office Visit Hematology Oncology Agustín Sullivan MD [address] [place] [address] 05/11/2023 Laboratory Laboratory [place], [address] [place] [address] 05/15/2023 Anticoagulation Pharmacy Pharmacist2, [facility] [address] [place] [address] 05/15/2023 Office Visit Family Medicine Yaya Frederick MD [address] [place] [address] 05/22/2023 Office Visit Cardiology Bucky Calvo PA-C [address] [place] [address] 06/23/2023 Office Visit Otolaryngology Keely Tanner PA-C [address] [place] [address] Pending Results Name Type Priority Associated Diagnoses Date /Time COMPREHENSIVE METABOLIC PANEL Lab Routine Dyslipidemia, goal LDL below 70 Encounter for monitoring diuretic therapy 05/01/2023 1:38 PM EDT LDL CHOLESTEROL (DIRECT MEASURE) Lab Routine Dyslipidemia, goal LDL below 70 05/01/2023 1:38 PM EDT MAGNESIUM Lab Routine Encounter for monitoring diuretic therapy 05/01/2023 1:38 PM EDT CBC WITH WBC DIFFERENTIAL AND ANEMIA REFLEX WORKUP Lab STAT Hypertensive kidney disease with stage 3a chronic kidney disease (HCC) 05/01/2023 1:38 PM EDT LIPID PANEL WITH DIRECT LDL IF TG IS HIGH Lab Routine Hypertensive kidney disease with stage 3a chronic kidney disease (HCC) Dyslipidemia, goal LDL below 70 05/01/2023 1:38 PM EDT 25-HYDROXY VITAMIN D Lab Routine Age-related osteoporosis without current pathological fracture Hypertensive kidney disease with stage 3a chronic kidney disease (HCC) 05/01/2023 1:38 PM EDT PHOSPHORUS Lab Routine Hypertensive kidney disease with stage 3a chronic kidney disease (HCC) 05/01/2023 1:38 PM EDT ALBUMIN / CREATININE RATIO, URINE Lab Routine Hypertensive kidney disease with stage 3a chronic kidney disease (HCC) 05/01/2023 1:38 PM EDT TSH WITH FREE T4 IF INDICATED Lab Routine Age-related osteoporosis without current pathological fracture Hypertensive kidney disease with stage 3a chronic kidney disease (HCC) 05/01/2023 1:38 PM EDT ANEMIA CBC Lab STAT Hypertensive kidney disease with stage 3a chronic kidney disease (HCC) 05/01/2023 1:38 PM EDT DIFFERENTIAL, AUTOMATED Lab STAT Hypertensive kidney disease with stage 3a chronic kidney disease (HCC) 05/01/2023 1:38 PM EDT ANEMIA REFLEX CHEMISTRY HOLD Lab STAT Hypertensive kidney disease with stage 3a chronic kidney disease (HCC) 05/01/2023 1:38 PM EDT Health Maintenance Due Date Last Done Comments Zoster Vaccines (1 of 2) 1954 *BISPHONATE OR OTHER ACCEPTABLE MEDICATION NEEDED FOR OSTEOPOROSIS (REFER TO SMARTSET #1146) 10/24/2021 Influenza Vaccine (FLU shot) (#1) 2023 07/04/2022, 07/19/2021, 07/19/2021, Additional history exists Albumin/Creatinine Ratio 07/04/2023 022, 12/02/2010, 09/24/2009, Additional history exists CKD PHOS USE SMARTSET 96802 11/04/2023 11/04/2022, 0 02/14/2019 Depression Screening, Annual for Pts 12 and Over 02/09/2024 02/08/2023 CKD HGB USE SMARTSET 63728 03/22/202403/22, 03/22/2023, 02/23/2023, Additional history exists DXA Scan 11/09/2024 11/09/2022, 01/21, 11/03/2015, Additional history exists DTaP,Tdap,and Td Vaccines (3 - Td or Tdap) 06/04/2029 06/04/2019, 01/28/2019, 05/26/2008 Pneumococcal Vaccine: 65+ Years Completed 05/24/2016, 11/14/2001 COVID-19 Vaccine Completed 09/29/2022, , 01/05/2021, Additional history exists VITAMIN D LEVEL ONCE IN A LIFETIME-USE SMARTSET# 87355 Completed 11/04/2022, 02/14/2019, 06/28/2011, Additional history exists [...] LDL below 70 Other and unspecified hyperlipidemia Encounter for monitoring diuretic therapy Encounter for therapeutic drug monitoring Hypertensive kidney disease with stage 3a chronic kidney disease (HCC) Age-related osteoporosis without current pathological fracture Senile osteoporosis Essential thrombocythemia (HCC) Essential thrombocythemia documented in this encounter Additional Health Concerns Infection Onset Date Last Indicated Resolved Time Varicella zoster 08/01/2022 08/01/2022 ESBL 01/26/2023 04/14/2023 documented as of this encounter Care Teams Reports Analyst Relationship Specialty Start Date End Date [phone] PCP - General Family Medicine 05/04/21 documented as of this encounter
--- OUTSIDE RECORDS SUMMARY | 2023-09-12 22:34 | External Medical Summary ---
Author Name Unknown Address Unknown Organization K01:[facility] [place] [address] [place] [address] Laboratory Report Ordering Provider Test Date Status ABDULKADIR PAYNE 05/01/2023 13:38:36 Final Observation Date Value Abnormality Reference (Units ) Status TSH 05/01/2023 13:38:36 2.43 0.27-4.20 (uIU/mL) Final Performing Location [facility] [place] [address] [place] [address]
--- OUTSIDE RECORDS SUMMARY | 2023-09-12 22:34 | External Medical Summary | Summary of Care ---
Author Name Unknown Organization [facility] Address [address] [facility] [place] [address] Phone [phone] Care Team Providers Care Associate Attorney Name Role Phone Yaya Frederick MD Primary Care Provider Reason for Visit * Reason Onset Date Comments Hospital Follow-Up 05/10/2023 Encounter Details Date Type Department Care Team Description 05/10/[address] [address] Pamela Riley, [facility] Follow-Up [...] as of this encounter (statuses as of 05/10/2023) Medications Medication Sig Dispensed Refills Start Date End Date Status BENADRYL 25 MG PO TABS 1 TABLET EVERY 4 TO 6 HOURS NEEDED 0 Active CALTRATE 600+D 600-400 MG-UNIT PO TABS one tablet twice daily 0 06/17/2009 Active MAG-OXIDE 400 MG PO TABSIndications:Docking Pilot jayda ischemic heart disease one tablet twice [...] SolutionIndications: Post-nasal discharge Administer into nostril 1 [place] in the morning AND 1 [place] before bedtime. 30 mL 0 11/30/2021 Active Fexofenadine HCl 180 MG Oral Tablet (Lizzette) Take by mouth 1 Tablet daily as needed for Allergies. 90 Tablet 0 01/21/2022 Active Ipratropium [place] 0.03 % Nasal Solution Administer into each [...] by mouth in the morning. 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 # [id number] Banding Machine Operator: Wilda Serrano MD [phone] Type 2 diabetes mellitus wit h hemoglobin [...] as of this encounter (statuses as of 05/10/2023) Immunizations Name Administration Dates Next Due COVID-19 [...] Telephone Encounter - Pamela Riley RN - 05/10/2023 12:46 PM EDT Images from the original note were not included. Transitions of Care Note Reason for Referral:Recent Admission Phone visit for follow up: SELMA Admitted to: [facility], Date: 05/02/23 Discharged to: Home, Date: 05/09/23 Diagnosis driving hospitalization: non-ST elevated myocardial infarction, chest pain Source/Contact: Patient and daughter Mely SUBJECTIVE Consent: Verbal consent for review of hospital discharge: Yes REVIEW OF SYSTEMS Patient/Other Reports: Current patient/caregiver problems or concerns: Patient and daughter both feel she is doing ok, they have no new concerns or questions. They did talk on the phone with Dr. Frederick yesterday and patientis taking her antibiotic as instructed by him. CV: Denies problems Pulmonary: Oxygen- 2L via nasal cannula continuous. Chills/Sweats/Fever:Denies chills/sweats Denies fever Appetite:Denies problems such as nausea, vomiting, burning, decreased appetite Current diet: heart healthy Bowel: denies problems Bladder: denies problems, currently being treated for UTI. Wound (If applicable): N/A Pain:Denies Sleep:Denies problems FUNCTIONAL STATUS: ADL'S: Needs Assistance With:Bathing and Dressing IADL'S: Needs Assistance With:Grocery Shopping, Cooking food, Routine Housework, Taking medications and Managing money Cognitive and Mental Health: denies problems, alert and oriented x 3 and able to communicate, understand instructions, process information. MEDICATION RECONCILIATION Medications: Discharge med list reviewed with patient or caregiver New medication(s) filled since hospitalization- Changed medication(s) since hospitalization- Discontinued medication(s) since hospitalization- Reports all medications taken as prescribed. Denies side effects uses pill box - filled by: Other: Daughter Mely OBJECTIVE n/a ASSESSMENT Medication Risk Assessment: No risks identified Did patient fail outpatient treatment? No Discharge instructions available for review? Yes PLAN Symptom Monitoring Interventions:Member/caregiver education - signs and symptoms to contact PrimaryCare (DO NOT DELETE-Three olivares symptoms patient is to report to PCP) 1. Chest pain/shortness of breath/difficulty breathing 2. Fever/chills/nausea/vomiting 3. Increased weakness/fatigue, confusion, fall, difficulty urinating, decreased urine output. Chicken StufferPneumatic Jack Operator of Care interventions/Action Plan: Medication reconciliation, Develop/confirm action plan for acute exacerbation and 5 - 7 day follow-up with PCP in place - Date: 05/15/[address]IA [address] Frederick Educated on role of SELMA completed with patient/caregiver. Educated patient/caregiver on patient right to have input on SELMA plan of care. Verification of Home Health/DME if indicated: YES [facility] Identified Care Gaps: No Care Gaps closed this call: Appointment made or confirmed, Lab/radiology testing coordinated, Medication adherence, Plan of care optimization, Post discharge appointment, Services in place and Transition of Care follow-up communication Re-evaluation of Plan of Care and progress towards goals achievement: Patient education this visit: Verbal, educated patient and daughter on importance of monitoring for signs/symptoms as disucssed above and to call PCP if they occur. Educated patient to have blood work done tomorrow, take medications as prescribed, keep follow-up appointments, and stay well hydrated. Patient and daughter verbalized understanding of above education. Plan to follow-up as previously scheduled, instructed to call Primary Care Provider with change in symptoms or as needed before next follow-up, discharge needs met, verbalizes understanding and agrees with plan. Pamela Riley, RN documented in this encounter Plan of Treatment Upcoming Encounters Date Type Specialty Care Team Description 05/11/2023 Laboratory Laboratory [place], [address] [place] [address] 05/15/2023 Anticoagulation Pharmacy Pharmacist, [facility] [place] [address] [place], [place] [phone] 05/15/2023 Office Visit Family Medicine Yaya Frederick MD [address] [place] [address] 05/22/2023 Office Visit Cardiology Bucky Calvo PA-C [address] [place] [address] 05/31/2023 Telemedicine Hematology Oncology Agustín Sullivan MD [address] [facility] [place] [address] 06/23/2023 Office Visit Otolaryngology Keely Tanner PA-C [address] [place] [address] Health Maintenance Due Date Last Done Comments Zoster Vaccines (1 of 2) 1954 *BISPHONATE OR OTHER ACCEPTABLE MEDICATION NEEDED FOR OSTEOPOROSIS (REFER TO SMARTSET #1146) 10/24/2021 Influenza Vaccine (FLU shot) (#1) 2023 07/04/2022, 07/19/2021, 07/19/2021, Additional history exists Depression Screening, Annual for Pts 12 and Over 02/09/2024 02/08/2023 Albumin/Creatinine Ratio 05/01/2024 023, 07/04/2022, 12/02/2010, Additional history exists CKD HGB USE SMARTSET 71178 05/01/202405/01, 05/01/2023, 03/22/2023, Additional history exists CKD PHOS USE SMARTSET 69204 05/01/202404/22, 11/04/2022, 02/14/2019 DXA Scan 11/09/2024 11/09/2022, 01/21, 11/03/2015, Additional history exists DTaP,Tdap,and Td Vaccines (3 - Td or Tdap) 06/04/2029 06/04/2019, 01/28/2019, 05/26/2008 Pneumococcal Vaccine: 65+ Years Completed 05/24/2016, 11/14/2001 COVID-19 Vaccine Completed 09/29/2022, , 01/05/2021, Additional history exists VITAMIN D LEVEL ONCE IN A LIFETIME-USE SMARTSET# 39496 Completed 05/01/2023, 11/04/2022, 02/14/2019, Additional history exists [...] documented as of this encounter Care Teams Associate Attorney Relationship Specialty Start Date End Date Yaya Frederick MD [address] [place] [phone] PCP - General Family Medicine 05/04/21 documented as of this encounter
--- OUTSIDE RECORDS SUMMARY | 2023-09-12 22:34 | External Medical Summary ---
Author Name Unknown Address Unknown Organization K01:[facility] [place] [address] [place] [id number] Laboratory Report Ordering Provider Test Date Status ABDULKADIR PAYNE 05/01/2023 13:38:36 Final Observation Date Value Abnormality Reference (Units ) Status Vitamin B12 05/01/2023 13:38:36 [id number] (pg/mL) Final Performing Location [facility] - [address] [place] [id number]
--- OUTSIDE RECORDS SUMMARY | 2023-09-12 22:34 | External Medical Summary ---
Author Name Unknown Address Unknown Organization [id number]:LABORATORY [facility] [place] - [address] [facility] [address] Laboratory Report Ordering Provider Test Date Status GISELLA RAY 05/01/2023 13:38:36 Final Observation Date Value Abnormality Reference (Units ) Status Bacteria identified in Unspecified specimen by Culture 05/01/2023 13:38:36 [id number]^ESCHE RICHIA COLI ESBL Abnormal Final >100,000 colonies/mL Escheri marissa coli ESBL producing organism, This patient may require isolation.
This gram negative bacilli displays in vitro resistance to multiple antibiotics. This patient may require isolation. Carbapenem use is preferred. Contact infectious disease service for further recommendations. Bacteria identified in Unspecified specimen by Culture 05/01/2023 13:38:36 [id number]^STREPTOCOCCUS ANGINOSUS GROUP Abnormal Final >100,000 colonies/mL Strepto coccus anginosus group Performing Location LABORATORY [facility] [place] - [address] [facility] [address] Ordering Provider Test Date Status GISELLA RAY 05/01/2023 13:38:36 Final Observation Date Value Abnormality Reference (Units ) Status Ampicillin 05/01/2023 13:38:36 >=32 Resistant Final Ampicillin + Sulbactam 05/01/2023 13:38:36 16 Intermediate Final Cefazolin 05/01/2023 13:38:36 >=64 Resistant Final Cefepime susceptibility 05/01/2023 13:38:36 Susceptible Final This is an appended report. These results have been appended to a previously preliminary verified report. Ceftriaxone suceptibility 05/01/2023 13:38:36 >=64 Resi stant Final Ciprofloxacin 05/01/2023 13:38:36 >=4 Resistant Final Due to serious side effects, the FDA has advised against using Ciprofloxacin to treat uncomplicated UTIs and respiratory tract infections unless there are no alternative treatment options. Gentamicin susceptibility 05/01/2023 13:38:36 <=1 Susc eptible Final Levofloxacin susceptibility 05/01/2023 13:38:36 >=8 Re sistant Final Due to serious side effects, the FDA has advised against using Levofloxacin to treat uncomplicated UTIs and respiratory tract infections unless there are no alternative treatment options. Meropenem [Susceptibility] 05/01/2023 13:38:36 <=0.25 Ana ceptible Final Nitrofurantoin susceptibility 05/01/2023 13:38:36 <=16 Susceptible Final Piperacillin + Tazobactamsusceptibility 05/01/2023 13:38:36 <=4 Susceptible Final TMP-SMZ susceptibility 05/01/2023 13:38:36 <=20 Suscept ible Final Performing Location LAB[facility]ATORY [facility] - [address] [facility] [address] Ordering Provider Test Date Status GISELLA RAY 05/01/2023 13:38:36 Final Observation Date Value Abnormality Reference (Units ) Status Ertapenem [Susceptibility] 05/01/2023 13:38:36 33 Susceptible Susceptible >21 , Intermediate <=21 , Resistant <=18 Final Test: Culture, Urine, Quanti tative
Specimen Source: Urine, Clean Catch
Specimen Type: Urine
Specimen Date: 05/01/2023 1:38 PM
Result Date: 05/06/2023 12:07 PM
Result Status: Final result
Abnormal: Yes
Resulting Lab: LAB[facility]ATORY [facility]
[address]
[place] [address]

CULTURE

>100,000 colonies/mL Escherichia coli ESBL producing organism, This patient may
require isolation. (Abnormal)

This gram negative bacilli displays in vitro resistance to multiple
antibiotics. This patient may require isolation. Carbapenem use is
preferred. Contact infectious disease service for further recommendations.

>100,000 colonies/mL Streptococcus anginosus group (Abnormal)

SUSCEPTIBILITY

Escherichia coli ESBL Escherichia coli ESBL
producing organism, producing organism,
This patient may This patient may
require isolation. require isolation.
METHOD [facility] MICROBROTH DILUTIONS

AMPICILLIN >=32 Resistant
AMPICILLIN/SULBACTAM 16 Intermediate
CEFAZOLIN >=64 Resistant
CEFEPIME -- Susceptible [1]
CEFTRIAXONE >=64 Resistant
CIPROFLOXACIN >=4 Resistant [2]
ERTAPENEM 33 Susceptible
GENTAMICIN <=1 Susceptible
LEVOFLOXACIN >=8 Resistant [...] alternative treatment options.

null Performing Location LABORATORY [facility] - [address] [facility] [address]
--- OUTSIDE RECORDS SUMMARY | 2023-09-12 22:34 | External Medical Summary ---
Author Name Unknown Address Unknown Organization K01:[facility]ORY [facility] [place] - [address] [place] [address] Laboratory Report Ordering Provider Test Date Status ABDULKADIR PAYNE 05/01/2023 13:38:36 Final Normal: <30 mg/g creatinine< br/>High: 30-300 mg/g creatinine
Very High: >300 mg/g creatinine
Nephrotic: >2200 mg/g creatinine Observation Date Value Abnormality Reference (Units ) Status Albumin, Urine 05/01/2023 13:38:36 25.66 (mg/dL) Final Creatinine, Urine 05/01/2023 13:38:36 103 (mg/dL) Final Albumin/Creatinine [Mass Ratio] in Urine 05/01/2023 13:38:36 249 Above high normal <30 (mg/g Creat) Final Performing Location LAB[facility]ORY [facility] [place] - [address] [place] [address]
--- OUTSIDE RECORDS SUMMARY | 2023-09-12 22:34 | External Medical Summary ---
Author Name Unknown Address Unknown Organization K0G:LABORATORY [place] [place] [address] - [address] [place] [address] Laboratory Report Ordering Provider Test Date Status GORDON CASTELAN 05/01/2023 13:38:36 Final Observation Date Value Abnormality Reference (Units ) Status BUN 05/01/2023 13:38:36 33 Above high normal 6-20 (mg/dL) Final Creatinine 05/01/2023 13:38:36 1.5 Above high normal 0.5-1.0 (mg/dL) Final Glomerular filtration rate/1.73 sq M.predicted [Volume Rate/Area] in Serum, Plasma or Blood by Creatinine-based formula (CKD-EPI) 05/01/2023 13:38:36 35 Below low normal >=60 (mL/min) Final eGFR is calculated based on the CKD-EPI 2020 equation SODIUM 05/01/2023 13:38:36 143 135-146 (m mol/L) Final Potassium 05/01/2023 13:38:36 4.5 3.5-5.1 (m mol/L) Final Cl 05/01/2023 13:38:36 98 98-107 (mm ol/L) Final CO2 05/01/2023 13:38:36 32 22-32 (mmo l/L) Final Anion gap 05/01/2023 13:38:36 13 7-15 (mmol /L) Final Glucose 05/01/2023 13:38:36 113 70-120 (mg /dL) Final Albumin 05/01/2023 13:38:36 4.1 3.8-5.0 (g /dL) Final AST (Aspartate aminotransferase) 05/01/2023 13:38:36 25 10-35 (U/L) Final Alk Phos 05/01/2023 13:38:36 88 35-130 (U/ L) Final Bilirubin, Total 05/01/2023 13:38:36 0.9 <=1 .2 (mg/dL) Final Calcium 05/01/2023 13:38:36 9.7 8.4-10.2 ( mg/dL) Final Protein 05/01/2023 13:38:36 7.3 6.0-8.3 (g /dL) Final ALT (Alanine aminotransferase) 05/01/2023 13:38:36 15 10-35 (U/L) Final Performing Location LABORATORY [place] [address] - [address] [facility] [address]
--- OUTSIDE RECORDS SUMMARY | 2023-09-12 22:34 | External Medical Summary | Summary of Care ---
Author Name Unknown Organization [facility] Address [address] [facility] [place] [address] Phone [phone] Care Team Providers Care Greenhouse Grower Name Role Phone Yaya Obando MD Primary Care Provider Reason for Visit * Reason Onset Date Comments Medication Refill 05/01/2023 Encounter Details Date Type Department Care Team Description 05/01/[address] [id number] Yaya Obando MD [address] [place] [address] [id number] Chronic seasonal allergic rhinitis due to pollen Allergies Active Allergy Reactions Severity Noted Date [...] 0 06/17/2009 Active MAG-OXIDE 400 MG PO TABSIndications:Digital 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 30 mL 0 11/30/2021 Active Fexofenadine HCl 180 MG Oral Tablet (Lizzette) Take by mouth 1 Tablet daily as needed for Allergies. 90 Tablet 0 01/21/2022 Active Ipratropium [place] 0.03 % Nasal Solution Administer into each nostril 2 Sprays 2 times a day as needed for Rhinitis. 30 mL 5 02/23/2022 Active Warfarin Sodium 2.5 MG Oral TabletIndications:Ch ronic ischemic heart disease Up to one tablet daily as directed by the [facility] clinic 100 Tablet 3 08/09/2022 Active [...] the morning. 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 # [id number] Automotive Manager: Wilda Serrano MD [phone] GENOMICS CARDIO RESEARCH OTHER*[id number] 200611/29/2016 Overview: Renamed Per Clinical Trials Billing Project. 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 # [id number] Automotive Manager: Wilda Serrano MD [phone] Type 2 diabetes mellitus wit h hemoglobin [...] Telephone Encounter - Yaya Obando MD - 05/01/2023 1:51 PM EDTSigned Prescriptions: Disp Refills Mometasone Furoate 50 MCG/ACT Nasal Suspen*51 g 3 Sig: Administer 2 Sprays into each nostril in the morning. Authorizing Provider: YAYA OABNDO * Telephone Encounter - Adrian Galindo LPN - 05/01/2023 1:10 PM EDT Did you pend patient's preferred pharmacy and medication before forwarding?yes Pharmacy: [facility] Pending Prescriptions: Disp Refills Mometasone Furoate 50 MCG/ACT Nasal Suspe*51 g 3 Sig: Administer 2 Sprays into each nostril in the morning. Last Visit: 03/21/2023 (in office), Visit date not found (telemedicine) Next Visit: 05/15/2023 If no future appointments scheduled, and last appointment is greater than a year ago, please schedule patient for a follow-up appointment Last date the medication was ordered: 10/03/22 Is this request for a controlled substance?No Urine Drug Screen:No results found. However, due to the size of the patient record, not all encounters were searched. Please check Results Review for a complete set of results. Patient Phone Numbers Labs: Lab Results Component Value Date/Time CREAT 1.3 (H) 03/22/2023 09:04 AM CREAT 1.1 (H) 09/16/2020 02:47 PM POTASSIUM 3.9 03/22/2023 09:04 AM POTASSIUM 4.2 09/16/2020 02:47 PM TSH 3.51 05/27/2022 10:11 AM TSH 4.55 (H) 04/17/2020 10:26 AM LDLCALC 48 11/04/2022 09:45 AM LDLCALC 39 09/16/2020 02:47 PM LDLDIRECT 51 06/22/2021 03:27 PM LDLDIRECT NOT APPLICABLE 09/16/2020 02:47 PM LDLDIRECT 66 10/12/2017 08:21 AM ALT 16 03/22/2023 09:04 AM ALT 14 09/16/2020 02:47 PM HGBA1C 5.8 10/17/2017 10:18 AM documented in this encounter Plan of Treatment Upcoming Encounters Date Type Specialty Care Team Description 05/08/2023 [facility] [address] 05/09/2023 Telemedicine Infectious Disease Marin Pena MD [address] [facility] [place] [address] 05/10/2023 Office Visit Hematology Oncology Agustín Sullivan MD [address] [facility] [place] [address] 05/11/2023 Laboratory [facility] [place] [address] [place] [address] 05/15/2023 [facility]ly [facility] Pharmacist2, [facility] [place] [address] [place] [address] 05/15/2023 Office Visit Family Medicine Yaya Obando MD [address] [place] [address] 05/22/2023 Office Visit Cardiology Bucky Calvo PA-C [address] [place] [address] 06/23/2023 Office Visit Otolaryngology Keely Tanner PA-C [address] [place] [address] Health Maintenance Due Date Last Done Comments Zoster Vaccines (1 of 2) 1954 *BISPHONATE OR OTHER ACCEPTABLE MEDICATION NEEDED FOR OSTEOPOROSIS (REFER TO SMARTSET #1146) 10/24/2021 Influenza Vaccine (FLU shot) (#1) 2023 07/04/2022, 07/19/2021, 07/19/2021, Additional history exists Albumin/Creatinine Ratio 07/04/2023 022, 12/02/2010, 09/24/2009, Additional history exists CKD PHOS USE SMARTSET 38962 11/04/2023 11/04/2022, 0 02/14/2019 Depression Screening, Annual for Pts 12 and Over 02/09/2024 02/08/2023 CKD HGB USE SMARTSET 77719 05/01/202405/01, 03/22/2023, 03/22/2023, Additional history exists DXA Scan 11/09/2024 11/09/2022, 01/21, 11/03/2015, Additional history exists DTaP,Tdap,and Td Vaccines (3 - Td or Tdap) 06/04/2029 06/04/2019, 01/28/2019, 05/26/2008 Pneumococcal Vaccine: 65+ Years Completed 05/24/2016, 11/14/2001 COVID-19 Vaccine Completed 09/29/2022, , 01/05/2021, Additional history exists VITAMIN D LEVEL ONCE IN A LIFETIME-USE SMARTSET# 20196 Completed 11/04/2022, 02/14/2019, 06/28/2011, Additional history exists [...] of this encounter Visit Diagnoses Diagnosis Chronic seasonal allergic rhinitis due to pollen documented in this encounter Additional Health Concerns Infection Onset Date Last Indicated Resolved Time Varicella zoster 08/01/2022 08/01/2022 ESBL 01/26/2023 04/14/2023 documented as of this encounter Care Teams Greenhouse Grower Relationship Specialty Start Date End Date Yaya Obando MD [place], [place] [phone] PCP - General Family Medicine 05/04/21 documented as of this encounter
--- OUTSIDE RECORDS SUMMARY | 2023-09-12 22:34 | External Medical Summary | Summary of Care ---
Author Name Unknown Organization [facility] Address [address] [facility] [place] [address] Phone [phone] Care Team Providers Care Commercial Loan Processor Name Role Phone Yaya Frederick MD Primary Care Provider [phone] Reason for Visit * Reason Comments Follow Up 3 weeks follow up. D oing well with medication changes and on occasion missed a dose but it is working. SOB ongoing. Edema better then it was. Denies chest pain, palpitations and dizziness. 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 30 mL 0 11/30/2021 Active Fexofenadine HCl 180 MG Oral Tablet (Lizzette) Take by mouth 1 Tablet daily as needed for Allergies. 90 Tablet 0 01/21/2022 Active Ipratropium [place] 0.03 % Nasal Solution Administer into each [...] g 1 10/03/2022 05/01/20 23 Discontinu ed(Refill) Amoxicillin-Pot Clavulanate 500-125 MG Oral Tablet (Augmentin)Indicatio ns:UTI (urinary tract infection) Take 1 Tablet by mouth in the morning and 1 Tablet in the evening. Do all this for 14 days. 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 # [id number] Program Evaluation Consultant: Wilda Serrano MD [phone] Type 2 diabetes mellitus wit h hemoglobin [...] mRNA, LNP-s, No Pre serve, 2-Dose Series ([place]) 09/13/2021,01/05/2021,12/15/2020 Covid-19, Mrna, Lnp-s, Pf, B ivalent, [...] Sign Reading Time Taken Comments Blood Pressure 118/74 05/01/2023 12:57 PM EDT Pulse 76 05/01/2023 12:57 PM EDT Temperature - - Respiratory Rate 17 05/01/2023 12:57 PM EDT Oxygen Saturation - - Inhaled Oxygen Concentration - - Weight 79.6 kg (175 lb 8 oz) 05/01/2023 12:57 PM EDT Height - - Body Mass Index 35.43 02/24/2023 10:21 AM EDT documented in this encounter Progress Notes * Bucky Calvo PA-C - 05/01/2023 1:03 PM EDT History of Present Illness: Shannon Cruz is a very pleasant 88-year-old female who returns today for close cardiology follow-up. The patient was last seen in this office on April 10, 2023, presenting at that time with acute decompensated diastolic congestive heart failure signs and symptoms. Sodium and fluid restrictions were reviewed. Torsemide dosing was increased from 40 mg/day to 40 mg one day alternating with 60 mg the next day. Spironolactone increased from 12.5 mg on MWF to 12.5 mg/day. Patient returns today feeling better. Notes missing some of the days when she was to take 60 mg of torsemide due to appointments. She has not taken any diuretic today due to this appointment and a chiropractor appointment later this afternoon. Breathing has improved some. Lower extremity peripheral edema has improved but not resolved. Weight is down 3 to 4 pounds. No chest pain. No palpitations. No orthopnea or PND. No positional lightheadedness or dizziness. No near syncope or syncope. No melena or hematochezia. No hematuria or dysuria. Appetite is okay. Urine is clear. Bowels are moving better since utilizing preparation H. Chronically tired and and cold, unchanged, without fevers or shaking chills/rigors. 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 Z79.01 Cardiac [...] heart failure with preserved ejection fraction (HFpEF) ([facility]) I50.32 Past Medical History: Diagnosis Date Anticoagulation management [...] compatible patecmaker insertion intraoperative fluoroscopic guidance lily[facility]essaom [facility]04/08/14 KNEE ARTHROSCOPY/ARTHROPLASTY 09/2010 dr salcedo LIGATE/CUT OVIDUCT(S) 1963 OTHER 12/27 RCA drug eluting stent REPLACEMENT AORTIC VALVE, BYPASS WITH PROSTHETIC VALVE 04/27 [place] [facility] AVR TOTAL ABD HYSTERECTOMY W/WO REMOVAL OF TUBE(S) 11/24 JADE/BSO Family History Problem Relation Age of Onset Genitourinary Disorder Mother endometriosis; hysterectomy done Diabetes Mother Genitourinary Disorder Daughter endometriosis; hysterectomy done Diabetes Aunt (Unspecified) maternal Diabetes Uncle (Unspecified) maternal Cancer Father prostate Hypertension Father Allergies Father hayfever Heart attack Sister Stroke Sister No Known Problems Brother Heart disease Sister coronary stent Social History: Nonsmoker. No alcohol. No illegal drug use. . Four children. Complete Review of Systems is as stated above, negative, or noncontributory. Review of patient's allergies indicates: Allergen Reactions [...] Current Outpatient Medications Medication Sig Dispense Refill ASPIRIN 81 MG PO CHEW take one tablet daily 34 11 CALTRATE 600+D 600-400 MG-UNIT PO TABS one tablet twice daily 0 MAG-OXIDE 400 MG PO TABS one tablet twice a day (Patient taking differently: Take 1 Tablet by mouth in the morning.) 60 Tab 5 Azelastine HCl 0.15 % Nasal Solution Administer into nostril 1 [place] in the morning AND 1 Spraybefore bedtime. 30 mL 0 Fexofenadine HCl 180 MG Oral Tablet (Lizzette) Take by mouth 1 Tablet daily as needed for Allergies. 90 Tablet 0 Warfarin Sodium 2.5 MG Oral Tablet Up to one tablet daily as directed by the [facility] clinic 100 Tablet 3 Metoprolol Succinate ER 100 MG Oral Tablet Extended Release 24 Hour (toPROL XL) Take 1.5 Tablets (150 mg) by mouth in the morning and 1.5 Tablets (150 mg) before bedtime. 270 Tablet 3 Rosuvastatin Calcium 10 MG Oral Tablet (Crestor) Take 1 Tablet (10 mg) by mouth in the morning.90 Tablet 3 oxygen IN GAS Use as directed. 2L at bedtime Hydroxyurea 500 MG Oral Capsule (Hydrea) Take 1 capsule by mouth 5 days a week 60 Capsule 3 Pantoprazole Sodium 40 MG Oral Tablet Delayed Release (Protonix) Take 1 Tablet by mouth in the morning. 90 Tablet 1 Torsemide 20 MG Oral Tablet (Demadex) 2 pills one daily alternating with 3 pills the next day 100 Tablet 2 Spironolactone 25 MG Oral Tablet (Aldactone) Take 0.5 Tablets by mouth in the morning. 45 Tablet 3 BENADRYL 25 MG PO TABS 1 TABLET EVERY 4 TO 6 HOURS NEEDED GRX ANALGESIC BALM EX OINT (andie mcallister) Apply topically to sore muscles as needed (Patient not taking: Reported on 05/01/2023) LORazepam 0.5 MG Oral Tablet (Ativan) Take 1 Tab by mouth every 8 hours as needed for Anxiety. 270 Tab 0 Ipratropium [place] 0.03 % Nasal Solution Administer into each nostril 2 Sprays 2 times a day as needed for Rhinitis. 30 mL 5 rOPINIRole HCl 0.5 MG Oral Tablet (Requip) Take 1 Tablet by mouth at bedtime. (Patient not taking: Reported on 03/24/2023) 30 Tablet 5 Phenazopyridine HCl 200 MG Oral Tablet (Pyridium) 1 tablet every 8 hours as needed After meals for pain with urination (Patient not taking: Reported on 03/24/2023) 30 Tablet 0 Estrogens Conjugated 0.625 MG/GM Vaginal Cream (Premarin) Administer 0.5 g into the vagina in the morning. 30 g 2 Mometasone Furoate 50 MCG/ACT Nasal Suspension Administer 2 Sprays into each nostril in the morning. 51 g 3 No current facility-administered medications for this visit. Above medication list reflects today's changes PHYSICAL EXAM: BP 118/74 | Pulse 76 | Resp 17 | Wt 79.6 kg (175 lb 8 oz) | BMI 35.43 kg/m | BSA 1.82 m General: A&Ox3. NAD. HENT: Normocephalic. Atraumatic. Neck: No JVD. Bilateral carotid bruits. Lungs: Clear to auscultation Cardiovascular: Irregularly irregular at 86 bpm. Grade II/IV systolic ejection murmur. No diastolicmurmur. No rub Abdomen: Soft, nontender. No hepatojugular reflux. Extremities: At most 1+ pitting edema. No clubbing. No cyanosis. Pulses: The right posterior tibial pulse was 2/4 and the left posterior tibial pulse was 1/4 Data: June 24, 2016 [employer] Interpretation Summary (as per Dr. Fisher): Myocardial perfusion imaging is normal. Overall left ventricular systolic function was normal without regional wall motion abnormalities. The left ventricular ejection fraction was 72%. There are no prior studies available for comparison Carotid duplex in February 2023 revealed stable mild bilateral internal carotid artery disease. February 20, 2023 TTE Interpretation Summary (as per Dr. Goyal): The rhythm during the transthoracic echo examination [...] moderate to severe tricuspid regurgitation now present. Device interrogation on April 07, 2023 demonstrated appropriate function, 4 months remaining longevity. Chronic atrial fibrillation noted. Ventricular paced 42.1%. Average ventricular rates controlled. ASSESSMENT: 1. Improved signs and symptoms of acute [...] chronic back pain. 14. Restless leg syndrome Options of management discussed. Plan as outlined below, via shared decision making. RECOMMENDATIONS/PLAN: 1. Follow-up basic metabolic panel today 2. Continue sodium (<1,500 mg/day) and fluid restrictions (targeting an oral intake of 40 to 50 oz per day in an attempt to balance heart failure as well as maintain hydration for the reported recurrent/persistent UTI cystitis with ESBL E coli) discussed 3. Continue torsemide 40 mg one day alternating with 60 mg the next day and spironolactone 12.5 mg daily. 4. Cardiology follow-up as scheduled on 05/22/2023 or as needed. 5. ER with emergencies. Bucky Calvo PA-C Department of Cardiology I spent a total of 30-39 minutes (exact time 34 mins) on the date of service in preparation, delivery, and documentation of the care provided to Shannon Cruz excluding any time spent in the performance of separately billed services. This chart was completed in part utilizing [employer] Speech Voice Recognition Software. Grammatical errors, random word insertions, prounoun errors, and incompletesentences are an occasional consequence of this system due to software limitations, ambient noise, and hardware issues. Any formal questions or concerns about the content, text, or information contained within the body of this dictation should be directly addressed to the provider for clarification. documented in this encounter Nursing Notes * Adrian Galindo LPN - 05/01/2023 12:56 PM EDT Patient identified by full name and date of Chief Complaint Patient presents with Follow Up 3 weeks follow up. Doing well with medication changes and on occasion missed a dose but it is working. SOB ongoing. Edema better then it was. Denies chest pain, palpitations and dizziness. Examination Room: 2 Name: Shannon Cruz Date of : (1935). Reason for Visit: 3 week follow up Interim Hospitalization(s): Denies Problems/Concerns: See chief complaint Chest Pain/SOB: See chief complaint [facility] Discussed: Not applicable My [facility] is a way you can talk to [...] Care Team Description 05/08/2023 Cardiac Studies Cardiology [facility] [address] [facility] [place] [id number] 05/09/2023 Telemedicine Infectious Disease Marin Pena MD [address] [place] [address] 05/10/2023 Office Visit Hematology Oncology Agustín Sullivan MD [address] [place] [address] 05/11/2023 Laboratory [facility] [address] [place] [address] 05/15/2023 [facility] Pharmacist, [facility] [place] [address], [place] [phone] 05/15/2023 Office Visit Family Medicine Yaya Frederick MD [address] [place] [address] 05/22/2023 Office Visit Cardiology Bucky Calvo PA-C [address] [place] [address] 06/23/2023 Office Visit Otolaryngology Keely Tanner PA-C [address] [place] [address] Health Maintenance Due Date Last Done Comments Zoster Vaccines (1 of 2) 1954 *BISPHONATE OR OTHER ACCEPTABLE MEDICATION NEEDED FOR OSTEOPOROSIS (REFER TO SMARTSET #1146) 10/24/2021 Influenza Vaccine (FLU shot) (#1) 2023 07/04/2022, 07/19/2021, 07/19/2021, Additional history exists Albumin/Creatinine Ratio 07/04/20232 022, 12/02/2010, 09/24/2009, Additional history exists CKD PHOS USE SMARTSET 07495 11/04/2023 11/04/2022, 0 02/14/2019 Depression Screening, Annual for Pts 12 and Over 02/09/2024 02/08/2023 CKD HGB USE SMARTSET 46815 05/01/202405/01, 03/22/2023, 03/22/2023, Additional history exists DXA Scan 11/09/2024 11/09/2022, 01/21, 11/03/2015, Additional history exists DTaP,Tdap,and Td Vaccines (3 - Td or Tdap) 06/04/2029 06/04/2019, 01/28/2019, 05/26/2008 Pneumococcal Vaccine: 65+ Years Completed 05/24/2016, 11/14/2001 COVID-19 Vaccine Completed 09/29/2022, , 01/05/2021, Additional history exists VITAMIN D LEVEL ONCE IN A LIFETIME-USE SMARTSET# [id number] Completed 11/04/2022, 02/14/2019, 06/28/2011, Additional history exists [...] as of this encounter Visit Diagnoses Diagnosis Heart failure, diastolic, with acute decompensation (HCC)- Primary Acute on chronic diastolic heart failure CHR ISCHEMIC HRT DIS NOS Chronic ischemic heart disease, unspecified HTN, goal below 150/90 S/P CABG (coronary artery bypass graft) Postsurgical aortocoronary bypass status S/P aortic valve replacement Heart valve replaced by other means Encounter for monitoring diuretic therapy Encounter for therapeutic drug monitoring Dyslipidemia, goal LDL below 70 Other and unspecified hyperlipidemia documented in this encounter Additional Health Concerns Infection Onset Date Last Indicated Resolved Time Varicella zoster 08/01/2022 08/01/2022 ESBL 01/26/2023 04/14/2023 documented as of this encounter Care Teams Commercial Loan Processor Relationship Specialty Start Date End Date Yaya Frederick MD [address] [place] [id number] PCP - General Family Medicine 05/04/21 documented as of this encounter"
--- OUTSIDE RECORDS SUMMARY | 2023-09-12 22:34 | External Medical Summary ---
Author Name Unknown Address Unknown Organization K01:[facility] [place] [address] [place] [address] Laboratory Report Ordering Provider Test Date Status ABDULKADIR PAYNE 05/01/2023 13:38:36 Final Deficient: <20 ng/mL
Ins ufficient: 20-29 ng/mL
Recommended/Optimum:30-50 ng/mL

Vitamin D intoxication is rare. If suspicious of Vitamin D toxicity, evaluation of serum Calcium and PTH is recommended. Observation Date Value Abnormality Reference (Units ) Status 25-OH Vitamin D total 05/01/2023 13:38:36 69 >19 (ng/mL) Final Performing Location [facility] [place] [address] [place] [id number]
--- OUTSIDE RECORDS SUMMARY | 2023-09-12 22:34 | External Medical Summary ---
Author Name Unknown Address Unknown Organization K01:LABORATORY [facility] [place] - [address] [place] [id number] Laboratory Report Ordering Provider Test Date Status ABDULKADIR PAYNE 05/01/2023 13:38:36 Final Observation Date Value Abnormality Reference (Units ) Status Folic Acid 05/01/2023 13:38:36 >20.0 >4.5 (ng/ mL) Final Performing Location LABORATORY [facility] - [address] [place] [address]
--- OUTSIDE RECORDS SUMMARY | 2023-09-12 22:34 | External Medical Summary ---
Author Name Unknown Address Unknown Organization K01[place] [place] [address] [place] [id number] Laboratory Report Ordering Provider Test Date Status GORDON CASTELAN 05/01/2023 13:38:36 Final Observation Date Value Abnormality Reference (Units ) Status LDL, (direct) 05/01/2023 13:38:36 38 <=129 (mg/dL) Final LDL Cholesterol Reference Ra nges (mg/dL):
<70 Target level for high risk ASCVD patient
<100 Optimal for general population
100-129 Near optimal for general population
130-159 Borderline high
160-189 High
>=190 Very high Performing Location [facility]ATORY [facility] - [address] [place] [id number]
--- OUTSIDE RECORDS SUMMARY | 2023-09-12 22:34 | External Medical Summary ---
Author Name Unknown Address Unknown Organization K0G:[facility]ATORY [place] [address] - [address] [place] [address] Laboratory Report Ordering Provider Test Date Status ABDULKADIR PAYNE 05/01/2023 13:38:36 Final Observation Date Value Abnormality Reference (Units ) Status WBC, Total 05/01/2023 13:38:36 6.63 4.00-10.8 0 (K/uL) Final RBC 05/01/2023 13:38:36 3.26 3.85-5.15 (M/uL) Final Hemoglobin 05/01/2023 13:38:36 11.3 Below low normal 12 .0-15.3 (g/dL) Final Anemia reflex testing trigge rs on a HGB < 12.0 for Females and HGB < 13.0 for Males in accordance with the WHO Anemia Guidelines
Anemia reflex testing triggers on a HGB < 12.0 for Females and HGB < 13.0 for Males in accordance with the WHO Anemia Guidelines HCT 05/01/2023 13:38:36 37.1 36.0-45.2 (%) Final MCV 05/01/2023 13:38:36 113.8 81.5-97.5 (fL) Final MCH 05/01/2023 13:38:36 34.7 27.0-34.0 (pg) Final MCHC 05/01/2023 13:38:36 30.5 32.0-36.0 (g/dL) Final RDW 05/01/2023 13:38:36 15.5 11.5-15.5 (%) Final Platelets 05/01/2023 13:38:36 263 140-400 (K /uL) Final MPV 05/01/2023 13:38:36 10.7 6.6-11.1 ( fL) Final Performing Location [facility]ORY [facility] - [address] [place] [address]
--- OUTSIDE RECORDS SUMMARY | 2023-09-12 22:34 | External Medical Summary ---
Author Name Unknown Address Unknown Organization K0G:[facility] [address] - [address] [place] [id number] Laboratory Report Ordering Provider Test Date Status ABDULKADIR PAYNE 05/01/2023 13:38:36 Final Observation Date Value Abnormality Reference (Units ) Status SYNC LEUKOCYTES IN BLOOD BY AUTOMATED COUNT 05/01/2023 13:38:36 6.63 4.00-10.80 (K/uL) Final Segs 05/01/2023 13:38:36 79.2 Above high normal 40.0-75.0 (%) Final Lymphs % 05/01/2023 13:38:36 6.9 Below low normal 18.0-42.0 (%) Final Monos 05/01/2023 13:38:36 11.6 Above high normal 1.0-11.0 (%) Final Eosinophils 05/01/2023 13:38:36 1.7 0.0-6.0 (%) Final Basos 05/01/2023 13:38:36 0.6 0.0-2.0 (%) Final Absolute Segs 05/01/2023 13:38:36 5.25 1.80-7.70 (K/uL) Final Lymphs, absolute 05/01/2023 13:38:36 0.46 Below low normal 1.00-4.80 (K/ul) Final Monos, Abs 05/01/2023 13:38:36 0.77 0.00-1.10 (K/uL) Final Eos, Abs 05/01/2023 13:38:36 0.11 0.00-0.70 (K/uL) Final Basos, Abs 05/01/2023 13:38:36 0.04 0.00-0.20 (K/uL) Final Performing Location LAB[facility]ORY [facility] - [address] [place] [id number]
--- OUTSIDE RECORDS SUMMARY | 2023-09-12 22:34 | External Medical Summary | Summary of Care ---
Author Name Unknown Organization [facility] Address [address] [facility] [place] [address] Phone [phone] Care Team Providers Care Wire Wheeler Name Role Phone Yaya Frederick MD Primary Care Provider [phone] Reason for Visit * Reason Comments Outpatient Testing Encounter Details Date Type Department Care Team Description 05/01/2023 Laboratory Laboratory, [facility] [address] [facility] [place] [address] [facility] [address] [facility] [place] [address] Dyslipidemia, goal LDL below [...] 0 06/17/2009 Active MAG-OXIDE 400 MG PO TABSIndications: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 30 mL 0 11/30/2021 Active Fexofenadine HCl 180 MG Oral Tablet (Lizzette) Take by mouth 1 Tablet daily as needed for Allergies. 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 # [id number] Pound Attendant: Wilda Serrano MD [phone] Type 2 diabetes mellitus wit h hemoglobin [...] mRNA, LNP-s, No Pre serve, 2-Dose Series ([employer]) 09/13/2021,01/05/2021,12/15/2020 Covid-19, Mrna, Lnp-s, Pf, B ivalent, 30 Mcg, IM, 12 yrs and above (Pfizer) 09/29/2022 H1N1 2009 Influenza, IM 10/08/2009 Pneumococcal Conjugate Vacc, 13 Valent (Prevnar) 05/24/2016 Pneumococcal Polysaccharide PPV23 (Pneumovax) 11/14/2001 Seasonal Influenza Virus Vac cine, Unspecified Formulation 07/19/2021,08/03/2020,07/23/2019,10/05/2018,08/29/2017,07/28/2016,07/05/20 16,07/07/2014,07/22/2013,07/03/2012,0 07/12/2011,07/21/2010,09/12/2009,08/04,07/23/2007,08/02/2006, 5,08/14/2003,10/01/2001 Seasonal Influenza, Quadriva lent [...] encounter Miscellaneous Notes * Addendum Note - ROMA Mcintyre - 05/01/2023 9:52 PM EDTAddended by: JOSE CUETO on: 05/01/2023 09:52 PM Modules accepted: Orders documented in this encounter Plan of Treatment Upcoming Encounters Date Type Specialty Care Team Description 05/08/2023 [facility] [address] [place] [address] 05/09/2023 Telemedicine Infectious Disease Marin Pena MD [address] [place] [address] 05/10/2023 Office Visit Hematology Oncology Agustín Sullivan MD [address] [place] [address] 05/11/2023 Laboratory Laboratory [place], [facility] [address] [place] [address] 05/15/2023 Anticoagulation Pharmacy Pharmacist2, [facility] [address] [place] [address] 05/15/2023 Office Visit Family Medicine Yaya Frederick MD [address] [place] [address] 05/22/2023 Office Visit Cardiology Bucky Calvo PA-C [address] [place] [address] 06/23/2023 Office Visit Otolaryngology Keely Tanner PA-C [address] [place] [address] Pending Results Name Type Priority Associated Diagnoses Date /Time LDL CHOLESTEROL (DIRECT MEASURE) Lab Routine Dyslipidemia, goal LDL below 70 05/01/2023 1:38 PM EDT MAGNESIUM Lab Routine Encounter for monitoring diuretic therapy 05/01/2023 1:38 PM EDT CBC WITH WBC DIFFERENTIAL AND ANEMIA REFLEX WORKUP Lab STAT Hypertensive kidney disease with stage 3a chronic kidney disease ([facility]) 05/01/2023 1:38 PM EDT 25-HYDROXY VITAMIN D Lab Routine Age-related osteoporosis without current pathological fracture Hypertensive kidney disease with stage 3a chronic kidney disease ([facility]) 05/01/2023 1:38 PM EDT PHOSPHORUS Lab Routine Hypertensive kidney disease with stage 3a chronic kidney disease ([facility]) 05/01/2023 1:38 PM EDT ALBUMIN / CREATININE RATIO, URINE Lab Routine Hypertensive kidney disease with stage 3a chronic kidney disease ([facility]) 05/01/2023 1:38 PM EDT TSH WITH FREE T4 IF INDICATED Lab Routine Age-related osteoporosis without current pathological fracture Hypertensive kidney disease with stage 3a chronic kidney disease ([facility]) 05/01/2023 1:38 PM EDT ANEMIA REFLEX CHEMISTRY HOLD Lab STAT Hypertensive kidney disease with stage 3a chronic kidney disease (HCC) 05/01/2023 1:38 PM EDT RETICULOCYTE PANEL Lab STAT Hypertensive kidney disease with stage 3a chronic kidney disease (HCC) 05/01/2023 1:38 PM EDT LIPID PANEL WITHOUT DIRECT LDL Lab Routine Dyslipidemia, goal LDL below 70 05/01/2023 1:38 PM EDT Health Maintenance Due Date Last Done Comments Zoster Vaccines (1 of 2) 1954 *BISPHONATE OR OTHER ACCEPTABLE MEDICATION NEEDED FOR OSTEOPOROSIS (REFER TO SMARTSET #1146) 10/24/2021 Influenza Vaccine (FLU shot) (#1) 2023 07/04/2022, 07/19/2021, 07/19/2021, Additional history exists Albumin/Creatinine Ratio 07/04/2023 022, 12/02/2010, 09/24/2009, Additional history exists CKD PHOS USE SMARTSET 39978 11/04/2023 11/04/2022, 0 02/14/2019 Depression Screening, Annual for Pts 12 and Over 02/09/2024 02/08/2023 CKD HGB USE SMARTSET 64411 05/01/202405/01, 03/22/2023, 03/22/2023, Additional history exists DXA Scan 11/09/2024 11/09/2022, 01/21, 11/03/2015, Additional history exists DTaP,Tdap,and Td Vaccines (3 - Td or Tdap) 06/04/2029 06/04/2019, 01/28/2019, 05/26/2008 Pneumococcal Vaccine: 65+ Years Completed 05/24/2016, 11/14/2001 COVID-19 Vaccine Completed 09/29/2022, , 01/05/2021, Additional history exists VITAMIN D LEVEL ONCE IN A LIFETIME-USE SMARTSET# 24880 Completed 11/04/2022, 02/14/2019, 06/28/2011, Additional history exists [...] Procedure Name Priority Date/Time Associated Diagnosis Comments ANEMIA CBC STAT 05/01/2023 1:38 PM EDT Hypertensive kidney disease with stage 3a chronic kidney disease (HCC) DIFFERENTIAL, AUTOMATED STAT 05/01/2023 1:38 PM EDT Hypertensive kidney disease with stage 3a chronic kidney disease (HCC) COMPREHENSIVE METABOLIC PANEL Routine 05/01/2023 1:38 PM EDT Dyslipidemia, goal LDL below 70 Encounter for monitoring diuretic therapy documented in this encounter Results * (ABNORMAL) DIFFERENTIAL, AUTOMATED (05/01/2023 1:38 PM EDT) WBC 6.63 4.00 - 10.80 K/uL 05/01/2023 1:54 PM EDT [facility] [place] [facility] Neutrophils % 79.2(H) 40.0 - 75.0 % 05/01/2023 1:54 PM EDT [facility] [place] [facility] Lymphocytes % 6.9(L) 18.0 - 42.0 % 05/01/2023 1:54 PM EDT [facility] [place] [facility] Monocytes % 11.6(H) 1.0 - 11.0 % 05/01/2023 1:54 PM EDT [facility] [place] [facility] Eosinophils % 1.7 0.0 - 6.0 % 05/01/2023 1:54 PM EDT [facility] [place] [facility] Basophils % 0.6 0.0 - 2.0 % 05/01/2023 1:54 PM EDT [facility] [place] [facility]10 Absolute Neutrophils 5.25 1.80 - 7.70 K/uL 05/01/2023 1:54 PM EDT [facility] [place] [facility]10 Absolute Lymphocytes 0.46(L) 1.00 - 4.80 K/ul 05/01/2023 1:54 PM EDT [facility] [place] [facility]10 Absolute Monocytes 0.77 0.00 - 1.10 K/uL 05/01/2023 1:54 PM EDT [facility] [place] [facility]10 Absolute Eosinophils 0.11 0.00 - 0.70 K/uL 05/01/2023 1:54 PM EDT [facility] [place] [facility]10 Absolute Basophils 0.04 0.00 - 0.20 K/uL 05/01/2023 1:54 PM EDT [facility] [place] [facility]10 Blood Venous blood specimen / Unknown Venipuncture / Unknown 05/01/2023 1:38 PM EDT 05/01/2023 1:38 PM EDT Marco Hunter PA-C LAB BLOOD ORDERAB LES [facility] [place] [address] [address] [place] [address] * (ABNORMAL) ANEMIA CBC (05/01/2023 1:38 PM EDT) WBC 6.63 4.00 - 10.80 K/uL 05/01/2023 1:54 PM EDT [facility] [place] [facility]10 RBC 3.26 3.85 - 5.15 M/uL 05/01/2023 1:54 PM EDT [facility] [place] [facility]10 HGB 11.3(L) 12.0 - 15.3 g/dL 05/01/2023 1:54 PM EDT [facility] [place] [facility]10 Comment: Anemia reflex testing triggers on a HGB < 12.0 for Females and HGB < 13.0 for Males in accordance with the WHO Anemia Guidelines Anemia reflex testing triggers on a HGB < 12.0 for Females and HGB < 13.0 for Males in accordance with the WHO Anemia Guidelines HCT 37.1 36.0 - 45.2 % 05/01/2023 1:54 PM EDT [facility] [place] 57-10 MCV 113.8 81.5 - 97.5 fL 05/01/2023 1:54 PM EDT [facility] [place] 5710 MCH 34.7 27.0 - 34.0 pg 05/01/2023 1:54 PM EDT [facility] [place] 5710 MCHC 30.5 32.0 - 36.0 g/dL 05/01/2023 1:54 PM EDT [facility] [place] 5710 RDW 15.5 11.5 - 15.5 % 05/01/2023 1:54 PM EDT [facility] [place] [facility]10 PLT 263 140 - 400 K/uL 05/01/2023 1:54 PM EDT [facility] [place] [facility]10 MPV 10.7 6.6 - 11.1 fL 05/01/2023 1:54 PM EDT [facility] [place] [facility]10 Blood Venous blood specimen / Unknown Venipuncture / Unknown 05/01/2023 1:38 PM EDT 05/01/2023 1:38 PM EDT Marco Hunter PA-C LAB BLOOD ORDERAB LES [facility] [place] [facility]-10 [address] [place] [address] * (ABNORMAL) COMPREHENSIVE METABOLIC PANEL (05/01/2023 1:38 PM EDT) BUN 33(H) 6 - 20 mg/dL 05/01/2023 2:52 PM EDT [facility] 57-10 Creatinine 1.5(H) 0.5 - 1.0 mg/dL 05/01/2023 2:52 PM EDT [facility] [place] [facility]10 Estimated Glomerular Filtration Rate 35(L) >=60 mL/min 05/01/2023 2:52 PM EDT [facility] [place] [facility]10 Comment:eGFR is calculated b ased on the CKD-EPI 2020 equation Sodium 143 135 - 146 mmol/L 05/01/2023 2:52 PM EDT [facility] [place] [facility]10 Potassium 4.5 3.5 - 5.1 mmol/L 05/01/2023 2:52 PM EDT [facility] [place] [facility]10 Chloride 98 98 - 107 mmol/L 05/01/2023 2:52 PM EDT [facility] [place] [facility]10 CO2 32 22 - 32 mmol/L 05/01/2023 2:52 PM EDT [facility] [place] [facility]10 Anion Gap 13 7 - 15 mmol/L 05/01/2023 2:52 PM EDT [facility] [place] [facility]10 Glucose 113 70 - 120 mg/dL 05/01/2023 2:52 PM EDT [facility] [place] [facility]10 Albumin 4.1 3.8 - 5.0 g/dL 05/01/2023 2:52 PM EDT [facility] [place] [facility]10 AST 25 10 - 35 U/L 05/01/2023 2:52 PM EDT [facility] [place] [facility]10 Alkaline Phosphatase 88 35 - 130 U/L 05/01/2023 2:52 PM EDT [facility] [place] [facility]10 Bilirubin, Total 0.9 <=1.2 mg/dL 05/01/2023 2:52 PM EDT [facility] [place] [facility]10 Calcium 9.7 8.4 - 10.2 mg/dL 05/01/2023 2:52 PM EDT [facility] [place] [facility]10 Protein 7.3 6.0 - 8.3 g/dL 05/01/2023 2:52 PM EDT [facility] [place] [facility]10 ALT 15 10 - 35 U/L 05/01/2023 2:52 PM EDT [facility] [place] [facility]10 Blood Venous blood specimen / Unknown Venipuncture / Unknown 05/01/2023 1:38 PM EDT 05/01/2023 1:38 PM EDT Bucky Calvo PA-C LAB BLOOD ORDERABLE S [facility] [place] [facility]-10 [address] [place] [address] documented in this encounter Visit Diagnoses Diagnosis Dyslipidemia, goal [...] documented as of this encounter Care Teams Wire Wheeler Relationship Specialty Start Date End Date Yaya Frederick MD [address] [place] [address] PCP - General Family Medicine 05/04/21 documented as of this encounter
--- OUTSIDE RECORDS SUMMARY | 2023-09-12 22:35 | External Medical Summary | Summary of Care ---
Author Name Unknown Organization [facility] Address [address] [place] [address] Phone [phone] Care Team Providers Care Home Inspector Name Role Phone Yaya Frederick MD Primary Care Provider [phone] Encounter Details Date Type Department Care Team Description 04/06/2023 Refill Infectious Disease, [place] [address] [place] [address] Tavo Pena MD [address] [place] [address] UTI (urinary tract infection)* Allergies [...] as of this encounter (statuses as of 04/21/2023) Medications Medication Sig Dispensed Refills Start Date [...] SolutionIndications :Post-nasal discharge Administer into nostril 1 [place] in the morning AND 1 [place] before bedtime. 30 mL 0 11/30/19 22 Active Fexofenadine HCl 180 MG Oral Tablet (Lizzette) Take by mouth 1 Tablet daily as needed for Allergies. 90 Tablet 0 01/22/20 22 Active Ipratropium [place] 0.03 % Nasal Solution Administer into each nostril 2 Sprays 2 times a day as needed for Rhinitis. 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 # [id number] Culinary Worker: Wilda Serrano MD [phone] Type 2 diabetes mellitus wit h hemoglobin [...] as of this encounter (statuses as of 04/21/2023) Immunizations Name Administration Dates Next Due COVID-19 mRNA, LNP-s, No Pre serve, 2-Dose Series ([employer]) 09/13/2021,01/05/2021,12/15/2020 Covid-19, Mrna, Lnp-s, Pf, B ivalent, [...] Miscellaneous Notes * Telephone Encounter - GAVIN Hansen - [...] is aware and will go to a [facility] facility for urine specimen. NN will watch [...] Bucky Calvo PA-C [address] [place] [address] 05/08/2023 [facility] [address] [place] [address] 05/09/2023 Telemedicine Infectious Disease Tavo Pena MD [address] [place] [address] 05/10/2023 Office Visit Hematology Oncology Agustín Sullivan MD [address] [place] [address] 05/11/2023 Laboratory Laboratory [place], [facility] [address] [place] [address] 05/15/2023 Anticoagulation Pharmacy Pharmacist2, [facility] [place] [address] [place] [address] 05/15/2023 Office Visit Family Medicine Yaya Frederick MD [address] [place] [address] 05/22/2023 Office Visit Cardiology Bucky Calvo PA-C [address] [place] [address] 06/23/2023 Office Visit Otolaryngology Keely Tanner PA-C [address] [place] [address] Health Maintenance Due Date Last Done Comments Zoster Vaccines (1 of 2) 1954 *BISPHONATE OR OTHER ACCEPTABLE MEDICATION NEEDED FOR OSTEOPOROSIS (REFER TO SMARTSET #1146) 10/24/2021 Albumin/Creatinine Ratio 07/04/2023 022, 12/02/2010, 09/24/2009, Additional history exists CKD PHOS USE SMARTSET 35712 11/04/2023 11/04/2022, 0 02/14/2019 Depression Screening, Annual for Pts 12 and Over 02/09/2024 02/08/2023 CKD HGB USE SMARTSET 66060 03/22/202403/22, 03/22/2023, 02/23/2023, Additional history exists DXA Scan 11/09/2024 11/09/2022, 01/21, 11/03/2015, Additional history exists DTaP,Tdap,and Td Vaccines (3 - Td or Tdap) 06/04/2029 06/04/2019, 01/28/2019, 05/26/2008 Pneumococcal Vaccine: 65+ Years Completed 05/24/2016, 11/14/2001 Influenza Vaccine (FLU shot) Completed 09/2022, 07/19/2021, 07/19/2021, Additional history exists COVID-19 Vaccine Completed 09/29/2022, , 01/05/2021, Additional history exists VITAMIN D LEVEL ONCE IN A LIFETIME-USE SMARTSET# 45470 Completed 11/04/2022, 02/14/2019, 06/28/2011, Additional history exists [...] 04/15/2023 1:08 AM EDT [facility] Specific [place], Urine 1.015 1.003 - 1.030 04/15/2023 1:08 [...] None /HPF 04/15/2023 1:08 AM EDT LABORATORY C Urine Urine specimen obtained by clean catch procedure / Unknown Non-blood Collection / Unknown 04/14/2023 11:37 AM EDT 04/14/2023 11:37 AM EDT Tavo Pena MD LAB URINE ORDERABLES LABORATORY [facility] [address] [place] [address] * (ABNORMAL) CULTURE, URINE, QUANTITATIVE (04/14/2023 11:37 AM EDT) Pathologist [facility] Culture Growth >100,000 colonies/mL Escherichia coli ESBL producing organism, This patient may require isolation.(A) MICROBROTH DILUTIONS 04/17/2023 2:52 PM EDT [facility] Comment:This gram negative b acilli displays in vitro resistance to multiple antibiotics. This patient may require isolation. Carbapenem use is preferred. Contact infectious disease service for further recommendations. Urine Urine specimen obtained by clean catch procedure / Unknown Non-blood Collection / Unknown 04/14/2023 11:37 AM EDT 04/14/2023 11:37 AM EDT [facility] LABORATORY [facility] - 04/17/2023 2:52 PM EDT <10,000 colonies/ml [...] MD LAB MICRO - GENERAL ORDERABLES LABORATORY [facility] [address] [place] [address] documented in this encounter Visit Diagnoses Diagnosis UTI (urinary tract infection)- Primary Urinary tract infection, site not specified documented in this encounter Additional Health Concerns Infection Onset Date Last Indicated Resolved Time Varicella zoster 08/01/2022 08/01/2022 ESBL 01/26/2023 04/14/2023 documented as of this encounter Care Teams Home Inspector Relationship Specialty Start Date End Date Yaya Frederick MD [address] [place] [address] PCP - General Family Medicine 05/04/21 documented as of this encounter
--- OUTSIDE RECORDS SUMMARY | 2023-09-12 22:35 | External Medical Summary | Summary of Care ---
Author Name Unknown Organization [facility] Address [address] [facility] [place] [address] Phone [phone] Care Team Providers Care Mid Level Game Designer Name Role Phone Yaya Frederick MD Primary Care Provider [phone] Reason for Visit * Reason Onset Date Comments Fax 04/05/2023 Encounter Details Date Type Department Care Team Description 04/05/[address] [address] Yaya Frederick MD [address] [place] [address] Fax Allergies Active Allergy Reactions Severity Noted Date [...] as of this encounter (statuses as of 04/17/2023) Medications Medication Sig Dispensed Refills Start Date [...] SolutionIndications :Post-nasal discharge Administer into nostril 1 [place] in the morning AND 1 [place] before bedtime. 30 mL 0 11/30/19 22 Active Fexofenadine HCl 180 MG Oral Tablet (Lizzette) Take by mouth 1 Tablet daily as needed for Allergies. 90 Tablet 0 01/22/20 22 Active Ipratropium [place] 0.03 % Nasal Solution Administer into each nostril 2 Sprays 2 times a day as needed for Rhinitis. 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 # [id number] Credit Manager: Wilda Serrano MD [phone] Type 2 diabetes mellitus wit h hemoglobin [...] as of this encounter (statuses as of 04/17/2023) Immunizations Name Administration Dates Next Due COVID-19 [...] at Date Recorded Female 08/03/2020 2:05 PM EDT Job Start Date Occupation Industry Not on file Not on file Not on file documented as of this encounter Miscellaneous Notes * Telephone Encounter - GAVIN Payne - 04/17/2023 10:04 AM EDT New form placed in providers box. Form must be signed by Dr. Aceves * Telephone Encounter - GAVIN Payne - 04/07/2023 10:01 AM EDT Form placed in Yola's box * Telephone Encounter - Neyda Lafleur - 04/06/2023 9:18 AM EDT Will send to Saqib to see if she saw it * Telephone Encounter - Chica Nogueira LPN - 04/05/2023 7:11 PM EDT Looks like pt saw Dr. Aceves on 02/24. Have you seen fax come through that needs signed? Will forward to front office also. Thank you. * Telephone Encounter - GAVIN Strauss - 04/05/2023 3:52 PM EDT Received a call asking if fax was received by office. Name/Company sending fax: Brea from [facility] What fax is pertaining to: Med update from 02/24/23 that needs signed Date(s) they sent request: 04/04/23 Verified fax number they are sending to is correct (Y or N): yes Callback Number for the clinic to call to verified if fax was received: PH: [phone] Brea calling in stating that this is just a med update form that needs signed and sent back, they are unable to do any billing for this until PCP signs and sends back. Please advise documented in this encounter Plan of Treatment Upcoming Encounters Date Type Specialty Care Team Description 05/01/2023 Office Visit Cardiology Bucky Calvo PA-C [address] [place] [address] 05/08/2023 Cardiac Studies Cardiology [facility] [address] [place] [address] 05/09/2023 Telemedicine Infectious Disease Marin Pena MD [address] [place] [address] 05/10/2023 Office Visit Hematology Oncology Agustín Sullivan MD [address] [place] [address] 05/11/2023 Laboratory [facility] [place], [facility] [address] [place] [address] 05/15/2023 [facility]ly [facility] Pharmacy Pharmacist2, [facility] [address] [place] [address] 05/15/2023 Office Visit Family Medicine Yaya Frederick MD [address] [place] [address] 05/22/2023 Office Visit Cardiology Bucky Calvo PA-C [address] [place] [address] 06/23/2023 Office Visit Otolaryngology Keely Tanner PA-C [address] [place] [address] Health Maintenance Due Date Last Done Comments Zoster Vaccines (1 of 2) 1954 *BISPHONATE OR OTHER ACCEPTABLE MEDICATION NEEDED FOR OSTEOPOROSIS (REFER TO SMARTSET #1146) 10/24/2021 Albumin/Creatinine Ratio 07/04/2023 022, 12/02/2010, 09/24/2009, Additional history exists CKD PHOS USE SMARTSET 33621 11/04/2023 11/04/2022, 0 02/14/2019 Depression Screening, Annual for Pts 12 and Over 02/09/2024 02/08/2023 CKD HGB USE SMARTSET 78848 03/22/202403/22, 03/22/2023, 02/23/2023, Additional history exists DXA Scan 11/09/2024 11/09/2022, 01/21, 11/03/2015, Additional history exists DTaP,Tdap,and Td Vaccines (3 - Td or Tdap) 06/04/2029 06/04/2019, 01/28/2019, 05/26/2008 Pneumococcal Vaccine: 65+ Years Completed 05/24/2016, 11/14/2001 Influenza Vaccine (FLU shot) Completed 09/2022, 07/19/2021, 07/19/2021, Additional history exists COVID-19 Vaccine Completed 09/29/2022, , 01/05/2021, Additional history exists VITAMIN D LEVEL ONCE IN A LIFETIME-USE SMARTSET# 89858 Completed 11/04/2022, 02/14/2019, 06/28/2011, Additional history exists [...] documented as of this encounter Care Teams Mid Level Game Designer Relationship Specialty Start Date End Date Yaya Frederick MD [address] [place] [address] PCP - General Family Medicine 05/04/21 documented as of this encounter
--- OUTSIDE RECORDS SUMMARY | 2023-09-12 22:35 | External Medical Summary | Summary of Care ---
Author Name Unknown Organization [facility] Address [address] [place] [address] Phone [phone] Care Team Providers Care Client Support Analyst Name Role Phone Yaya Frederick MD Primary Care Provider [phone] Encounter Details Date Type Department Care Team Description 04/06/2023 Telephone Infectious Disease, [place] [address] [place] [address] Tavo Pena MD [address] [place] [address] Allergies Active Allergy Reactions Severity Noted Date [...] as of this encounter (statuses as of 04/18/2023) Medications Medication Sig Dispensed Refills Start Date [...] SolutionIndications :Post-nasal discharge Administer into nostril 1 Carpenter in the morning AND 1 Carpenter before bedtime. 30 mL 0 11/30/19 22 Active Fexofenadine HCl 180 MG Oral Tablet (Lizzette) Take by mouth 1 Tablet daily as needed for Allergies. 90 Tablet 0 01/22/20 22 Active Ipratropium [place] 0.03 % Nasal Solution Administer into each nostril 2 Sprays 2 times a day as needed for Rhinitis. 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 # [id number] Converter Supervisor: Wilda Serrano MD [phone] Type 2 diabetes mellitus wit h hemoglobin [...] as of this encounter (statuses as of 04/18/2023) Immunizations Name Administration Dates Next Due COVID-19 mRNA, LNP-s, No Pre serve, 2-Dose Series (Domee) 09/13/2021,01/05/2021,12/15/2020 Covid-19, Mrna, Lnp-s, Pf, B ivalent, [...] is aware and will go to a [facility] facility for urine specimen. NN will watch [...] Calvo PA-C [address] [place] [address] 05/08/2023 Cardiac Studies Cardiology [facility] [address] [place] [address] 05/09/2023 Telemedicine Infectious Disease Tavo Pena MD [address] [place] [address] 05/10/2023 Office Visit Hematology Oncology Agustín Sullivan MD [address] [place] [address] 05/11/2023 Laboratory Laboratory [facility], Lab [facility] [address] [place] [address] 05/15/2023 [facility] Pharmacist, [facility] [address] [place] [address] 05/15/2023 Office Visit Family Medicine Yaya Frederick MD [address] [place] [address] 05/22/2023 Office Visit Cardiology Bucky Calvo PA-C [address] [place] [address] 06/23/2023 Office Visit Otolaryngology Keely Tanner PA-C [address] [place] [phone] Health Maintenance Due Date Last Done Comments Zoster Vaccines (1 of 2) 1955 *BISPHONATE OR OTHER ACCEPTABLE MEDICATION NEEDED FOR OSTEOPOROSIS (REFER TO SMARTSET #1146) 10/24/2021 Albumin/Creatinine Ratio 07/04/2023 022, 12/02/2010, 09/24/2009, Additional history exists CKD PHOS USE SMARTSET 79352 11/04/2023 11/04/2022, 0 02/14/2019 Depression Screening, Annual for Pts 12 and Over 02/09/2024 02/08/2023 CKD HGB USE SMARTSET 19859 03/22/202403/22, 03/22/2023, 02/23/2023, Additional history exists DXA Scan 11/09/2024 11/09/2022, 01/21, 11/03/2015, Additional history exists DTaP,Tdap,and Td Vaccines (3 - Td or Tdap) 06/04/2029 06/04/2019, 01/28/2019, 05/26/2008 Pneumococcal Vaccine: 65+ Years Completed 05/24/2016, 11/14/2001 Influenza Vaccine (FLU shot) Completed 09/2022, 07/19/2021, 07/19/2021, Additional history exists COVID-19 Vaccine Completed 09/29/2022, , 01/05/2021, Additional history exists VITAMIN D LEVEL ONCE IN A LIFETIME-USE SMARTSET# 25486 Completed 11/04/2022, 02/14/2019, 06/28/2011, Additional history exists [...] Negative Negative 04/15/20 1:08 AM EDT LABORATORY C Ketone, Urine Negative Negative mg/dL 04/15/2023 1:08 AM EDT LABORATORY C Specific [place], Urine 1.015 1.003 - 1.030 04/15/2023 1:08 AM EDT LABORATORY C Blood, Urine Small(A) Negative 04/15/2023 1:08 AM EDT LABORATORY C pH, Urine 6.5 5.0 - 7.5 Units 04/15/2023 1:08 AM EDT LABORATORY C Protein, Urine 30(A) Negative mg/dL 04/15/2023 1:08 AM EDT LABORATORY C Urobilinogen, Urine Normal Normal mg/dL 04/15/2023 1:08 AM EDT LABORATORY C Nitrite, Urine Negative Negative 04/15/2023 1:08 AM EDT LABORATORY C Esterase, Urine Large(A) Negative 1:08 AM EDT LABORATORY C RBC, Urine 3-5(A) 0 - 2 /HPF 04/15/2023 1:08 AM EDT LABORATORY C WBC, Urine 50+(A) 0 - 2 /HPF 04/15/2023 1:08 AM EDT LABORATORY C Bacteria, Urine 151-200(A) 0 - 25 /HPF 04/15/20 1:08 AM EDT LABORATORY [facility] Transitional Epithelial Cells, Urine 1-4(A) None /HPF 04/15/2023 1:08 AM EDT LABORATORY C WBC Clumps, Urine Present(A) None /HPF 04/15/2023 1:08 AM EDT LABORATORY [facility] Urine Urine specimen obtained by clean catch procedure / Unknown Non-blood Collection / Unknown 04/14/2023 11:37 AM EDT 04/14/2023 11:37 AM EDT Tavo Pena MD LAB URINE ORDERABLES LABORATORY [facility] [address] [place] [address] * (ABNORMAL) CULTURE, URINE, QUANTITATIVE (04/14/2023 11:37 AM EDT) Culture Growth >100,000 colonies/mL Escherichia coli ESBL producing organism, This patient may require isolation.(A) MICROBROTH DILUTIONS 04/17/2023 2:52 PM EDT LABORATORY [facility] Comment:This gram negative b acilli displays in vitro resistance to multiple antibiotics. This patient may require isolation. Carbapenem use is preferred. Contact infectious disease service for further recommendations. Urine Urine specimen obtained by clean catch procedure / Unknown Non-blood Collection / Unknown 04/14/2023 11:37 AM EDT 04/14/2023 11:37 AM EDT Narrative LABORATORY [facility] - 04/17/2023 2:52 PM EDT <10,000 colonies/ml [...] MD LAB MICRO - GENERAL ORDERABLES LABORATORY [facility] [address] [place] [address] documented in this encounter Visit Diagnoses Diagnosis UTI (urinary tract infection)- Primary Urinary tract infection, site not specified documented in this encounter Additional Health Concerns Infection Onset Date Last Indicated Resolved Time Varicella zoster 08/01/2022 08/01/2022 ESBL 01/26/2023 04/14/2023 documented as of this encounter Care Teams Client Support Analyst Relationship Specialty Start Date End Date Yaya Frederick MD [address] [place] [address] PCP - General Family Medicine 05/04/21 documented as of this encounter
--- OUTSIDE RECORDS SUMMARY | 2023-09-12 22:35 | External Medical Summary | Summary of Care ---
Author Name Unknown Organization [facility] Address [address] [facility] [address] Phone [phone] Care Team Providers Care Photographer'S Model Name Role Phone Yaya Frederick MD Primary Care Provider [phone] Reason for Visit * Reason Comments Outpatient Testing Encounter Details Date Type Department Care Team Description 04/14/2023 Laboratory [facility], [address] [phone] [address] Essential thrombocythemia (HCC); UTI (urinary tract infection); Encounter for monitoring diuretic therapy; Heart failure, diastolic, with acute decompensation (HCC) Allergies Active Allergy Reactions Severity Noted [...] as of this encounter (statuses as of 04/14/2023) Medications Medication Sig Dispensed Refills Start Date [...] SolutionIndications:P ost-nasal discharge Administer into nostril 1 Gardners in the morning AND 1 Gardners before bedtime. 30 mL 0 11/30/2021 Active Fexofenadine HCl 180 MG Oral Tablet (Lizzette) Take by mouth 1 Tablet daily as needed for Allergies. 90 Tablet 0 01/21/2022 Active Ipratropium [place] 0.03 % Nasal Solution Administer into each nostril 2 Sprays 2 times a day as needed for Rhinitis. 30 mL 5 02/23/2022 Active Warfarin Sodium 2.5 MG Oral TabletIndications:Chr onic ischemic heart disease Up to one tablet daily as directed by the Anticoag clinic 100 Tablet 3 08/09/2022 Active Mometasone Furoate 50 MCG/ACT Nasal SuspensionIndications :Chronic seasonal allergic rhinitis due to pollen Administer 2 Sprays into each nostril in the morning. 51 g 1 10/03/2022 Active Metoprolol Succinate ER 100 MG Oral [...] the morning. 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 # [id number] Channel Manager: Wilda Serrano MD [phone] Type 2 diabetes mellitus wit h hemoglobin [...] as of this encounter (statuses as of 04/14/2023) Immunizations Name Administration Dates Next Due COVID-19 mRNA, LNP-s, No Pre serve, 2-Dose Series (buySAFE) 09/13/2021,01/05/2021,12/15/2020 Covid-19, Mrna, Lnp-s, Pf, B ivalent, [...] Visit Cardiology Bucky Calvo PA-C [address] [place] [address] 05/08/2023 Cardiac Studies Cardiology [facility] [place] [address] 05/09/2023 Telemedicine Infectious Disease Marin Pena MD [address] [place] [address] 05/10/2023 Office Visit Hematology Oncology Agustín Sullivan MD [address] [place] [address] 05/11/2023 Laboratory Laboratory [place], Lab [facility] [address] [place] [address] 05/15/2023 [facility] Pharmacist2, [facility] [place] [address] [place] [address] 05/15/2023 Office Visit Family Medicine Yaya Frederick MD [address] [place] [address] 05/22/2023 Office Visit Cardiology Bucky Calvo PA-C [address] [place] [address] 06/23/2023 Office Visit Otolaryngology Keely Tanner PA-C [address] [place] [address] Pending Results Name Type Priority Associated Diagnoses Date /Time CULTURE, URINE, QUANTITATIVE Lab Routine UTI (urinary tract infection) 04/14/2023 11:37 AM EDT URINALYSIS, REFLEX TO MICROSCOPIC Lab Routine UTI (urinary tract infection) 04/14/2023 11:37 AM EDT Scheduled Orders Name Type Priority Associated Diagnoses Orde r Schedule CBC Lab STAT Essential thrombocythemia (HCC) Ordered: 04/14/2023 DIFFERENTIAL, AUTOMATED Lab STAT Essential thrombocythemia (HCC) Ordered: 04/14/2023 Health Maintenance Due Date Last Done Comments Zoster Vaccines (1 of 2) 1954 *BISPHONATE OR OTHER ACCEPTABLE MEDICATION NEEDED FOR OSTEOPOROSIS (REFER TO SMARTSET #1146) 10/24/2021 Albumin/Creatinine Ratio 07/04/2023 022, 12/02/2010, 09/24/2009, Additional history exists CKD PHOS USE SMARTSET 49793 11/04/2023 11/04/2022, 0 02/14/2019 Depression Screening, Annual for Pts 12 and Over 02/09/2024 02/08/2023 CKD HGB USE SMARTSET 75545 03/22/202403/22, 03/22/2023, 02/23/2023, Additional history exists DXA Scan 11/09/2024 11/09/2022, 01/21, 11/03/2015, Additional history exists DTaP,Tdap,and Td Vaccines (3 - Td or Tdap) 06/04/2029 06/04/2019, 01/28/2019, 05/26/2008 Pneumococcal Vaccine: 65+ Years Completed 05/24/2016, 11/14/2001 Influenza Vaccine (FLU shot) Completed 09/2022, 07/19/2021, 07/19/2021, Additional history exists COVID-19 Vaccine Completed 09/29/2022, , 01/05/2021, Additional history exists VITAMIN D LEVEL ONCE IN A LIFETIME-USE SMARTSET# 23597 Completed 11/04/2022, 02/14/2019, 06/28/2011, Additional history exists [...] Diagnoses Diagnosis Essential thrombocythemia (HCC) Essential thrombocythemia UTI (urinary tract infection) Urinary tract infection, site not specified Encounter for monitoring diuretic therapy Encounter for therapeutic drug monitoring Heart failure, diastolic, with acute decompensation (HCC) Acute on chronic diastolic heart failure documented in this encounter Additional Health Concerns Infection Onset Date Last Indicated Resolved Time Varicella zoster 08/01/2022 08/01/2022 ESBL 01/26/2023 03/10/2023 documented as of this encounter Care Teams Photographer'S Model Relationship Specialty Start Date End Date Yaya Frederick MD [address] [place] [phone] PCP - General Family Medicine 05/04/21 documented as of this encounter
--- OUTSIDE RECORDS SUMMARY | 2023-09-12 22:35 | External Medical Summary | Summary of Care ---
Author Name Unknown Organization [facility] Address [address] [place] [address] Phone [phone] Care Team Providers Care Injection Specialist Name Role Phone Yaya Frederick MD Primary Care Provider [phone] Encounter Details Date Type Department Care Team Description 04/06/2023 Refill Infectious Disease, [place] [address] [place] [address] Tavo Pena MD [address] [place] [address] UTI (urinary tract infection)* Allergies [...] SolutionIndications :Post-nasal discharge Administer into nostril 1 Harshaw in the morning AND 1 Harshaw before bedtime. 30 mL 0 11/30/19 22 Active Fexofenadine HCl 180 MG Oral Tablet (Lizzette) Take by mouth 1 Tablet daily as needed for Allergies. 90 Tablet 0 01/22/20 22 Active Ipratropium [place] 0.03 % Nasal Solution Administer into each nostril 2 Sprays 2 times a day as needed for Rhinitis. 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 # [id number] Extractor Filler: Wilda Serrano MD [phone] Type 2 diabetes mellitus wit h hemoglobin [...] mRNA, LNP-s, No Pre serve, 2-Dose Series (CinnaBid) 09/13/2021,01/05/2021,12/15/2020 Covid-19, Mrna, Lnp-s, Pf, B ivalent, [...] encounter Miscellaneous Notes * Telephone Encounter - Nargis Cox - [...] is aware and will go to a [facility] facility for urine specimen. NN will watch [...] Calvo PA-C [address] [place] [address] 05/08/2023 Cardiac Studies Cardiology [facility] [address] [place] [address] 05/09/2023 Telemedicine Infectious Disease Tavo Pena MD [address] [place], [place] [phone] 05/10/2023 Office Visit Hematology Oncology Agustín Sullivan MD [address] [place] [address] 05/11/2023 Laboratory Laboratory [place], Lab [facility] [address] [place] [address] 05/15/2023 Anticoagulation Pharmacy Pharmacist, [facility] [address] [place] [address] 05/15/2023 Office Visit Family Medicine Yaya Frederick MD [address] [place] [address] 05/22/2023 Office Visit Cardiology Bucky Calvo PA-C [address] [place] [address] 06/23/2023 Office Visit Otolaryngology Keely Tanner PA-C [address] [place] [address] Health Maintenance Due Date Last Done Comments Zoster Vaccines (1 of 2) 1954 *BISPHONATE OR OTHER ACCEPTABLE MEDICATION NEEDED FOR OSTEOPOROSIS (REFER TO SMARTSET #1146) 10/24/2021 Influenza Vaccine (FLU shot) (#1) 2023 07/04/2022, 07/19/2021, 07/19/2021, Additional history exists Albumin/Creatinine Ratio 07/04/2023 022, 12/02/2010, 09/24/2009, Additional history exists CKD PHOS USE SMARTSET 54382 11/04/2023 11/04/2022, 0 02/14/2019 Depression Screening, Annual for Pts 12 and Over 02/09/2024 02/08/2023 CKD HGB USE SMARTSET 33855 03/22/202403/22, 03/22/2023, 02/23/2023, Additional history exists DXA Scan 11/09/2024 11/09/2022, 01/21, 11/03/2015, Additional history exists DTaP,Tdap,and Td Vaccines (3 - Td or Tdap) 06/04/2029 06/04/2019, 01/28/2019, 05/26/2008 Pneumococcal Vaccine: 65+ Years Completed 05/24/2016, 11/14/2001 COVID-19 Vaccine Completed 09/29/2022, , 01/05/2021, Additional history exists VITAMIN D LEVEL ONCE IN A LIFETIME-USE SMARTSET# 77991 Completed 11/04/2022, 02/14/2019, 06/28/2011, Additional history exists [...] 04/15/2023 1:08 AM EDT LABORATORY C Specific [place], Urine 1.015 1.003 - 1.030 04/15/2023 1:08 [...] Tavo Pena MD LAB URINE ORDERABLES LABORATORY [facility] [address] [place] [address] * (ABNORMAL) CULTURE, URINE, QUANTITATIVE (04/14/2023 11:37 AM EDT) Culture Growth >100,000 colonies/mL Escherichia coli ESBL producing organism, This patient may require isolation.(A) MICROBROTH DILUTIONS 04/17/2023 2:52 PM EDT LABORATORY [facility] Comment:This gram negative b acilli displays in vitro resistance to multiple antibiotics. This patient may require isolation. Carbapenem use is preferred. Contact infectious disease service for further recommendations. Urine Urine specimen obtained by clean catch procedure / Unknown Non-blood Collection / Unknown 04/14/2023 11:37 AM EDT 04/14/2023 11:37 AM EDT Narrative LABORATORY [facility] - 04/17/2023 2:52 PM EDT <10,000 colonies/ml [...] MD LAB MICRO - GENERAL ORDERABLES LABORATORY [facility] [address] [place] [address] documented in this encounter Visit Diagnoses Diagnosis UTI (urinary tract infection)- Primary Urinary tract infection, site not specified documented in this encounter Additional Health Concerns Infection Onset Date Last Indicated Resolved Time Varicella zoster 08/01/2022 08/01/2022 ESBL 01/26/2023 04/14/2023 documented as of this encounter Care Teams Injection Specialist Relationship Specialty Start Date End Date Yaya Frederick MD [address] [place] [address] PCP - General Family Medicine 05/04/21 documented as of this encounter
--- OUTSIDE RECORDS SUMMARY | 2023-09-12 22:35 | External Medical Summary | Summary of Care ---
Author Name Unknown Organization [facility] Address [address] [facility] [place] [address] Phone [phone] Care Team Providers Care Sugar Drier Name Role Phone Yaya Frederick MD Primary Care Provider [phone] Reason for Visit * Reason Onset Date Comments Fax 04/05/2023 Encounter Details Date Type Department Care Team Description 04/05/[address] [address] Yaya Frederick MD [address] [place] [address] Fax Allergies Active Allergy Reactions Severity [...] SolutionIndications :Post-nasal discharge Administer into nostril 1 [place] in the morning AND 1 [place] before bedtime. 30 mL 0 11/30/19 22 Active Fexofenadine HCl 180 MG Oral Tablet (Lizzette) Take by mouth 1 Tablet daily as needed for Allergies. 90 Tablet 0 01/22/20 22 Active Ipratropium [place] 0.03 % Nasal Solution Administer into each nostril 2 Sprays 2 times a day as needed for Rhinitis. 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 # [id number] Operations [place]man: Wilda Serrano MD [phone] Type 2 diabetes mellitus wit h hemoglobin [...] by office. Name/Company sending fax: Brea from [facility] What fax is pertaining to: Med update from 02/24/23 that needs signed Date(s) they sent request: 04/04/23 Verified fax number they are sending to is correct (Y or N): yes Callback Number for the clinic to call to verified if fax was received: PH: [phone] Brea calling in stating that this is just a med update form that needs signed and sent back, they are unable to do any billing for this until PCP signs and sends back. Please advise documented in this encounter Plan of Treatment Upcoming Encounters Date Type Specialty Care Team Description 05/01/2023 Office Visit Cardiology Bucky Calvo PA-C [address] [place] [address] 05/08/2023 Cardiac Studies Cardiology [facility] [address] [facility] [place] [address] 05/09/2023 Telemedicine Infectious Disease Marin Pena MD [address] [place] [address] 05/10/2023 Office Visit Hematology Oncology Agustín Sullivan MD [address] [place] [address] 05/11/2023 Laboratory Laboratory [place], Lab [facility] [address] [place] [address] 05/15/2023 [facility], [facility] [address] [place] [address] 05/15/2023 Office Visit Family Medicine Yaya Frederick MD [address] [place] [address] 05/22/2023 Office Visit Cardiology Bucky Calvo PA-C [address] [place] [address] 06/23/2023 Office Visit Otolaryngology Keely Tanner PA-C [address] [place] [address] Health Maintenance Due Date Last Done Comments Zoster Vaccines (1 of 2) 1954 *BISPHONATE OR OTHER ACCEPTABLE MEDICATION NEEDED FOR OSTEOPOROSIS (REFER TO SMARTSET #1146) 10/24/2021 Albumin/Creatinine Ratio 07/04/2023 022, 12/02/2010, 09/24/2009, Additional history exists CKD PHOS USE SMARTSET 64613 11/04/2023 11/04/2022, 0 02/14/2019 Depression Screening, Annual for Pts 12 and Over 02/09/2024 02/08/2023 CKD HGB USE SMARTSET 63547 03/22/202403/22, 03/22/2023, 02/23/2023, Additional history exists DXA Scan 11/09/2024 11/09/2022, 01/21, 11/03/2015, Additional history exists DTaP,Tdap,and Td Vaccines (3 - Td or Tdap) 06/04/2029 06/04/2019, 01/28/2019, 05/26/2008 Pneumococcal Vaccine: 65+ Years Completed 05/24/2016, 11/14/2001 Influenza Vaccine (FLU shot) Completed 09/2022, 07/19/2021, 07/19/2021, Additional history exists COVID-19 Vaccine Completed 09/29/2022, , 01/05/2021, Additional history exists VITAMIN D LEVEL ONCE IN A LIFETIME-USE SMARTSET# 79966 Completed 11/04/2022, 02/14/2019, 06/28/2011, Additional history exists [...] documented as of this encounter Care Teams Sugar Drier Relationship Specialty Start Date End Date Yaya Frederick MD [address] [place] [address] PCP - General Family Medicine 05/04/21 documented as of this encounter
--- OUTSIDE RECORDS SUMMARY | 2023-09-12 22:35 | External Medical Summary | Summary of Care ---
Author Name Unknown Organization [facility] Address [address] [place] [address] Phone [phone] Care Team Providers Care Boxing Trainer Name Role Phone Yaya Frederick MD Primary Care Provider [phone] Encounter Details Date Type Department Care Team Description 04/06/2023 Telephone Infectious Disease, [place] [address] [place] [address] Tavo Pena MD [address] [place] [address] Allergies Active Allergy Reactions Severity [...] as of this encounter (statuses as of 04/19/2023) Medications Medication Sig Dispensed Refills Start Date [...] SolutionIndications :Post-nasal discharge Administer into nostril 1 [place] in the morning AND 1 [place] before bedtime. 30 mL 0 11/30/19 22 Active Fexofenadine HCl 180 MG Oral Tablet (Lizzette) Take by mouth 1 Tablet daily as needed for Allergies. 90 Tablet 0 01/22/20 22 Active Ipratropium [place] 0.03 % Nasal Solution Administer into each nostril 2 Sprays 2 times a day as needed for Rhinitis. 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 # [id number] Uptwist Spinner: Wilda Serrano MD [phone] Type 2 diabetes mellitus wit h hemoglobin [...] as of this encounter (statuses as of 04/19/2023) Immunizations Name Administration Dates Next Due COVID-19 mRNA, LNP-s, No Pre serve, 2-Dose Series ([employer]) 09/13/2021,01/05/2021,12/15/2020 Covid-19, Mrna, Lnp-s, Pf, B ivalent, [...] encounter Miscellaneous Notes * Addendum Note - Aishwarya Lange LPN [...] is aware and will go to a [facility] facility for urine specimen. NN will watch for results. Aishwraya Lange LPN Nurse Navigator ID * Telephone Encounter - Nargis Cox - 04/07/2023 3:50 PM EDT Patient called in to check on message. She says she is now starting having burning sensation when urinating * Telephone Encounter - Nargis Epstein Kenny - 04/06/2023 2:44 PM EDT Patient [...] Visit Cardiology Bucky Calvo PA-C [address] [place] [address] 05/08/2023 Cardiac Studies Cardiology [facility] [address] [facility] [address] 05/09/2023 Telemedicine Infectious Disease [facility]ena MD [address] [facility] [id number] 05/10/2023 Office Visit Hematology Oncology Agustín Sullivan MD [address] [place] [address] 05/11/2023 Laboratory [facility] [place], [address] [place] [address] 05/15/2023 [facility] Pharmacist2, [facility] [address] [place], [place] [phone] 05/15/2023 Office Visit Family Medicine Yaya Frederick MD [address] [place], [place] [phone] 05/22/2023 Office Visit Cardiology Bucky Calvo PA-C [address] [place] [address] 06/23/2023 Office Visit Otolaryngology Keely Tanner PA-C [address] [place] [address] Health Maintenance Due Date Last Done Comments Zoster Vaccines (1 of 2) 1954 *BISPHONATE OR OTHER ACCEPTABLE MEDICATION NEEDED FOR OSTEOPOROSIS (REFER TO SMARTSET #1146) 10/24/2021 Albumin/Creatinine Ratio 07/04/2023 022, 12/02/2010, 09/24/2009, Additional history exists CKD PHOS USE SMARTSET 66650 11/04/2023 11/04/2022, 0 02/14/2019 Depression Screening, Annual for Pts 12 and Over 02/09/2024 02/08/2023 CKD HGB USE SMARTSET 71704 03/22/202403/22, 03/22/2023, 02/23/2023, Additional history exists DXA Scan 11/09/2024 11/09/2022, 01/21, 11/03/2015, Additional history exists DTaP,Tdap,and Td Vaccines (3 - Td or Tdap) 06/04/2029 06/04/2019, 01/28/2019, 05/26/2008 Pneumococcal Vaccine: 65+ Years Completed 05/24/2016, 11/14/2001 Influenza Vaccine (FLU shot) Completed 09/2022, 07/19/2021, 07/19/2021, Additional history exists COVID-19 Vaccine Completed 09/29/2022, , 01/05/2021, Additional history exists VITAMIN D LEVEL ONCE IN A LIFETIME-USE SMARTSET# 34335 Completed 11/04/2022, 02/14/2019, 06/28/2011, Additional history exists [...] 04/15/2023 1:08 AM EDT LABORATORY [facility] [place], Urine 1.015 1.003 - 1.030 04/15/2023 1:08 [...] None /HPF 04/15/2023 1:08 AM EDT LABORATORY [facility] Urine Urine specimen obtained by clean catch procedure / Unknown Non-blood Collection / Unknown 04/14/2023 11:37 AM EDT 04/14/2023 11:37 AM EDT Tavo Pena MD LAB URINE ORDERABLES LABORATORY [facility] [address] [place] [address] * (ABNORMAL) CULTURE, URINE, QUANTITATIVE (04/14/2023 11:37 AM EDT) Culture Growth >100,000 colonies/mL Escherichia coli ESBL producing organism, This patient may require isolation.(A) MICROBROTH DILUTIONS 04/17/2023 2:52 PM EDT LABORATORY [facility] Comment:This gram negative b acilli displays in vitro resistance to multiple antibiotics. This patient may require isolation. Carbapenem use is preferred. Contact infectious disease service for further recommendations. Urine Urine specimen obtained by clean catch procedure / Unknown Non-blood Collection / Unknown 04/14/2023 11:37 AM EDT 04/14/2023 11:37 AM EDT Narrative LABORATORY C - 04/17/2023 2:52 PM EDT <10,000 colonies/ml [...] MD LAB MICRO - GENERAL ORDERABLES LABORATORY [facility] [address] [place] [address] documented in this encounter Visit Diagnoses Diagnosis UTI (urinary tract infection)- Primary Urinary tract infection, site not specified documented in this encounter Additional Health Concerns Infection Onset Date Last Indicated Resolved Time Varicella zoster 08/01/2022 08/01/2022 ESBL 01/26/2023 04/14/2023 documented as of this encounter Care Teams Boxing Trainer Relationship Specialty Start Date End [place] [address] PCP - General Family Medicine 05/04/21 documented as of this encounter
--- OUTSIDE RECORDS SUMMARY | 2023-09-12 22:35 | External Medical Summary | Summary of Care ---
Author Name Unknown Organization [facility] Address [address] [place] [address] Phone [phone] Care Team Providers Care Black Studies Professor Name Role Phone Yaya Frederick MD Primary Care Provider [phone] Encounter Details Date Type Department Care Team Description 04/06/2023 Telephone Infectious Disease, [place] [address] [place] [address] Tavo Pena MD [address] [place] [address] Allergies Active Allergy Reactions Severity [...] SolutionIndications :Post-nasal discharge Administer into nostril 1 [place] in the morning AND 1 [place] before bedtime. 30 mL 0 11/30/19 22 Active Fexofenadine HCl 180 MG Oral Tablet (Lizzette) Take by mouth 1 Tablet daily as needed for Allergies. 90 Tablet 0 01/22/20 22 Active Ipratropium [place] 0.03 % Nasal Solution Administer into each nostril 2 Sprays 2 times a day as needed for Rhinitis. 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 # [id number] Greenhouse Or Nursery Transplanter: Wilda Serrano MD [phone] Type 2 diabetes mellitus wit h hemoglobin [...] mRNA, LNP-s, No Pre serve, 2-Dose Series ([employer]) 09/13/2021,01/05/2021,12/15/2020 Covid-19, Mrna, Lnp-s, Pf, B ivalent, [...] is aware and will go to a [facility] facility for urine specimen. NN will watch [...] Visit Cardiology Bucky Calvo PA-C [address] [place] [address] 05/08/2023 Cardiac Studies Cardiology [facility], [facility] [address] [facility] [address] 05/09/2023 Telemedicine Infectious Disease Tavo Pena MD [address] [facility] [phone] 05/10/2023 Office Visit Hematology Oncology Agustín Sullivan MD [address] [place] [address] 05/11/2023 Laboratory [facility] [place], Lab [address] [place] [address] 05/15/2023 [facility] Pharmacy Pharmacist2, [facility] [place] [address] [place], [place] [phone] 05/15/2023 Office Visit Family Medicine Yaya Frederick MD [address] [place], [place] [phone] 05/22/2023 Office Visit Cardiology Bucky Calvo PA-C [address] [place] [address] 06/23/2023 Office Visit Otolaryngology Keely Tanner PA-C [address] [place] [address] Health Maintenance Due Date Last Done Comments Zoster Vaccines (1 of 2) 1954 *BISPHONATE OR OTHER ACCEPTABLE MEDICATION NEEDED FOR OSTEOPOROSIS (REFER TO SMARTSET #1146) 10/24/2021 Albumin/Creatinine Ratio 07/04/2023 022, 12/02/2010, 09/24/2009, Additional history exists CKD PHOS USE SMARTSET 11457 11/04/2023 11/04/2022, 0 02/14/2019 Depression Screening, Annual for Pts 12 and Over 02/09/2024 02/08/2023 CKD HGB USE SMARTSET 74339 03/22/202403/22, 03/22/2023, 02/23/2023, Additional history exists DXA Scan 11/09/2024 11/09/2022, 01/21, 11/03/2015, Additional history exists DTaP,Tdap,and Td Vaccines (3 - Td or Tdap) 06/04/2029 06/04/2019, 01/28/2019, 05/26/2008 Pneumococcal Vaccine: 65+ Years Completed 05/24/2016, 11/14/2001 Influenza Vaccine (FLU shot) Completed 09/2022, 07/19/2021, 07/19/2021, Additional history exists COVID-19 Vaccine Completed 09/29/2022, , 01/05/2021, Additional history exists VITAMIN D LEVEL ONCE IN A LIFETIME-USE SMARTSET# 27772 Completed 11/04/2022, 02/14/2019, 06/28/2011, Additional history exists [...] 04/15/2023 1:08 AM EDT LAB[facility]ATORY [facility] [place], Urine 1.015 1.003 - 1.030 04/15/2023 1:08 [...] None /HPF 04/15/2023 1:08 AM EDT LABORATORY [facility] Urine Urine specimen obtained by clean catch procedure / Unknown Non-blood Collection / Unknown 04/14/2023 11:37 AM EDT 04/14/2023 11:37 AM EDT Tavo Pena MD LAB URINE ORDERABLES LABORATORY [facility] [address] [place] [address] * (ABNORMAL) CULTURE, URINE, QUANTITATIVE (04/14/2023 11:37 AM EDT) Culture Growth >100,000 colonies/mL Escherichia coli ESBL producing organism, This patient may require isolation.(A) MICROBROTH DILUTIONS 04/17/2023 2:52 PM EDT LABORATORY [facility] Comment:This gram negative b acilli displays in [...] MD LAB MICRO - GENERAL ORDERABLES LABORATORY [facility] [address] [place] [address] documented in this encounter Visit Diagnoses Diagnosis UTI (urinary tract infection)- Primary Urinary tract infection, site not specified documented in this encounter Additional Health Concerns Infection Onset Date Last Indicated Resolved Time Varicella zoster 08/01/2022 08/01/2022 ESBL 01/26/2023 04/14/2023 documented as of this encounter Care Teams Black Studies Professor Relationship Specialty Start Date End [place] [address] PCP - General Family Medicine 05/04/21 documented as of this encounter
--- OUTSIDE RECORDS SUMMARY | 2023-09-12 22:35 | External Medical Summary | Summary of Care ---
Author Name Unknown Organization [facility] Address [address] [facility] [address] Phone [phone] Care Team Providers Care Stem Roller Operator Name Role Phone Yaya Frederick MD Primary Care Provider [phone] Reason for Visit * Reason Comments Outpatient Testing Encounter Details Date Type Department Care Team Description 04/14/2023 Laboratory [facility], [address] [phone] [address] Essential thrombocythemia (HCC); UTI (urinary tract infection); [...] SolutionIndications:P ost-nasal discharge Administer into nostril 1 [place] in the morning AND 1 [place] before bedtime. 30 mL 0 11/30/2021 Active Fexofenadine HCl 180 MG Oral Tablet (Lizzette) Take by mouth 1 Tablet daily as needed for Allergies. 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 # [id number] Database Marketing Manager: Wilda Serrano MD [phone] Type 2 diabetes mellitus wit h hemoglobin [...] mRNA, LNP-s, No Pre serve, 2-Dose Series ([employer]) 09/13/2021,01/05/2021,12/15/2020 Covid-19, Mrna, Lnp-s, Pf, B ivalent, [...] Visit Cardiology Bucky Calvo PA-C [address] [place] [address] 05/08/2023 Cardiac Studies Cardiology [place] [facility] [place] [address] 05/09/2023 Telemedicine Infectious Disease Marin Pena MD [address] [place] [address] 05/10/2023 Office Visit Hematology Oncology Agustín Sullivan MD [address] [place] [address] 05/11/2023 Laboratory [facility] [place], Lab [address] [place] [address] 05/15/2023 [facility] Pharmacist2, [facility] [place] [address] [place] [address] 05/15/2023 Office Visit Family Medicine Yaya Frederick MD [address] [place] [address] 05/22/2023 Office Visit Cardiology Bucky Calvo PA-C [address] [place] [address] 06/23/2023 Office Visit Otolaryngology Keely Tanner PA-C [address] [place] [address] Pending Results Name Type Priority Associated Diagnoses [...] Additional history exists CKD PHOS USE SMARTSET 31594 11/04/2023 11/04/2022, 0 02/14/2019 Depression Screening, Annual for Pts 12 and Over 02/09/2024 02/08/2023 CKD HGB USE SMARTSET 44756 03/22/202403/22, 03/22/2023, 02/23/2023, Additional history exists DXA Scan 11/09/2024 11/09/2022, 01/21, 11/03/2015, Additional history exists DTaP,Tdap,and Td Vaccines (3 - Td or Tdap) 06/04/2029 06/04/2019, 01/28/2019, 05/26/2008 Pneumococcal Vaccine: 65+ Years Completed 05/24/2016, 11/14/2001 Influenza Vaccine (FLU shot) Completed 09/2022, 07/19/2021, 07/19/2021, Additional history exists COVID-19 Vaccine Completed 09/29/2022, , 01/05/2021, Additional history exists VITAMIN D LEVEL ONCE IN A LIFETIME-USE SMARTSET# 61612 Completed 11/04/2022, 02/14/2019, 06/28/2011, Additional history exists [...] documented as of this encounter Care Teams Stem Roller Operator Relationship Specialty Start Date End Date Yaya Frederick MD [address] [place] [phone] PCP - General Family Medicine 05/04/21 documented as of this encounter
--- OUTSIDE RECORDS SUMMARY | 2023-09-12 22:35 | External Medical Summary | Summary of Care ---
Author Name Unknown Organization [facility] Address [address] [facility] [address] Phone [phone] Care Team Providers Care Manager Editorial Name Role Phone Yaya Frederick MD Primary Care Provider [phone] Reason for Visit * Reason Comments Outpatient Testing Encounter Details Date Type Department Care Team Description 04/14/2023 Laboratory [facility], [address] [phone] [address] Essential thrombocythemia (HCC); UTI (urinary tract infection); [...] ost-nasal discharge Administer into nostril 1 [place] in the morning AND 1 [place] before bedtime. 30 mL 0 11/30/2021 Active Fexofenadine HCl 180 MG Oral Tablet (Lizzette) Take by mouth 1 Tablet daily as needed for Allergies. 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 # [id number] Theatrical Dresser: Wilda Serrano MD [phone] Type 2 diabetes mellitus wit h hemoglobin A1c goal of less than 7.0% 11/03/2006 08/15/2007 Overview: ICD-10 update of inactive term PURE HYPERCHOLESTEROLEM 11/03/2006 10/01/20 09 Overview: Per Lipid Taxonomy. 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/2008 retirement current use of anticoagulant therapy 0 05/05/2006 [...] mRNA, LNP-s, No Pre serve, 2-Dose Series ([employer]) 09/13/2021,01/05/2021,12/15/2020 Covid-19, Mrna, Lnp-s, Pf, B ivalent, [...] Visit Cardiology Bucky Calvo PA-C [address] [place] [address] 05/08/2023 Cardiac Studies Cardiology [place] [facility] [place] [address] 05/09/2023 Telemedicine Infectious Disease Marin Pena MD [address] [place] [address] 05/10/2023 Office Visit Hematology Oncology Agustín Sullivan MD [address] [place] [address] 05/11/2023 Laboratory [facility] [place], Lab [address] [place] [address] 05/15/2023 [facility] Pharm[facility] Pharmacist2, [facility] [place] [address] [place] [address] 05/15/2023 Office Visit Family Medicine Yaya Frederick MD [address] [place] [address] 05/22/2023 Office Visit Cardiology Bucky Calvo PA-C [address] [place] [address] 06/23/2023 Office Visit Otolaryngology Keely Tanner PA-C [address] [place] [address] Pending Results Name Type Priority Associated Diagnoses Date /Time CBC WITH WBC DIFFERENTIAL Lab STAT Essential thrombocythemia (HCC) 04/14/2023 11:37 AM EDT CULTURE, URINE, QUANTITATIVE Lab Routine UTI (urinary tract infection) 04/14/2023 11:37 AM EDT URINALYSIS, REFLEX TO MICROSCOPIC Lab Routine UTI (urinary tract infection) 04/14/2023 11:37 AM EDT BASIC METABOLIC PANEL Lab Routine Encounter for monitoring diuretic therapy Heart failure, diastolic, with acute decompensation (HCC) 04/14/2023 11:37 AM EDT CBC Lab STAT Essential thrombocythemia ([facility]) 04/14/2023 11:37 AM EDT DIFFERENTIAL, AUTOMATED Lab STAT Essential thrombocythemia ([facility]) 04/14/2023 11:37 AM EDT Health Maintenance Due Date Last Done Comments Zoster Vaccines (1 of 2) 1954 *BISPHONATE OR OTHER ACCEPTABLE MEDICATION NEEDED FOR OSTEOPOROSIS (REFER TO SMARTSET #1146) 10/24/2021 Albumin/Creatinine Ratio 07/04/20232 022, 12/02/2010, 09/24/2009, Additional history exists CKD PHOS USE SMARTSET 55825 11/04/2023 11/04/2022, 0 02/14/2019 Depression Screening, Annual for Pts 12 and Over 02/09/2024 02/08/2023 CKD HGB USE SMARTSET 41848 03/22/202403/22, 03/22/2023, 02/23/2023, Additional history exists DXA Scan 11/09/2024 11/09/2022, 01/21, 11/03/2015, Additional history exists DTaP,Tdap,and Td Vaccines (3 - Td or Tdap) 06/04/2029 06/04/2019, 01/28/2019, 05/26/2008 Pneumococcal Vaccine: 65+ Years Completed 05/24/2016, 11/14/2001 Influenza Vaccine (FLU shot) Completed 09/2022, 07/19/2021, 07/19/2021, Additional history exists COVID-19 Vaccine Completed 09/29/2022, , 01/05/2021, Additional history exists VITAMIN D LEVEL ONCE IN A LIFETIME-USE SMARTSET# 77789 Completed 11/04/2022, 02/14/2019, 06/28/2011, Additional history exists [...] documented as of this encounter Care Teams Manager Editorial Relationship Specialty Start Date End Date Yaya Frederick MD [address] [place] [phone] PCP - General Family Medicine 05/04/21 documented as of this encounter
--- OUTSIDE RECORDS SUMMARY | 2023-09-12 22:36 | External Medical Summary ---
Author Name Unknown Address Unknown Organization K01:LABORATORY [facility] - [address] [facility] [place] [address] Laboratory Report Ordering Provider Test Date Status CODY VO 04/14/2023 11:37:51 Final Observation Date Value Abnormality Reference (Units ) Status Color of Urine by Auto 04/14/2023 11:37:51 Yellow Colorless, Light Yellow, Yellow, Dark Yellow Final Clarity, Urine 04/14/2023 11:37:51 Slightly Cloudy Abnormal Clear Final Glucose [Mass/volume] in Urine by Automated test strip 04/14/2023 11:37:51 Negative Negative (mg/dL) Final Bilirubin.total [Presence] in Urine by Automated test strip 04/14/2023 11:37:51 Negative Negative Final Ketones [Mass/volume] in Urine by Automated test strip 04/14/2023 11:37:51 Negative Negative (mg/dL) Final Specific gravity, Urine 04/14/2023 11:37:51 1.015 1.003-1.030 Final Hemoglobin [Presence] in Urine by Automated test strip 04/14/2023 11:37:51 Small Abnormal Negative Final pH, Urine 04/14/2023 11:37:51 6.5 5.0-7.5 (Units) Final Protein [Mass/volume] in Urine by Automated test strip 04/14/2023 11:37:51 30 Abnormal Negative (mg/dL) Final Urobilinogen [Mass/volume] in Urine by Automated test strip 04/14/2023 11:37:51 Normal Normal (mg/dL) Final Nitrite [Presence] in Urine by Automated test strip 04/14/2023 11:37:51 Negative Negative Final Leukocyte esterase [Presence] in Urine by Automated test strip 04/14/2023 11:37:51 Large Abnormal Negative Final RBC, Urine 04/14/2023 11:37:51 3-5 Abnormal 0-2 (/HPF) Final WBC, Urine 04/14/2023 11:37:51 50+ Abnormal 0-2 (/HPF) Final Bacteria [#/area] in Urine sediment by Microscopy high power field 04/14/2023 11:37:51 151-200 Abnormal 0-25 (/HPF) Final Transitional cells [#/area] in Urine sediment by Microscopy high power field 04/14/2023 11:37:51 1-4 Abnormal None (/HPF) Final Leukocyte clumps [#/area] in Urine sediment by Microscopy high power field 04/14/2023 11:37:51 Present Abnormal None (/HPF) Final Performing Location LABORATORY [facility] - [address] [facility] [address]
--- OUTSIDE RECORDS SUMMARY | 2023-09-12 22:36 | External Medical Summary | Summary of Care ---
Author Name Unknown Organization [facility] Address [address] [facility] [place] [address] Phone [phone] Care Team Providers Care Manager Group Name Role Phone Yaya Frederick MD Primary Care Provider [phone] Reason for Visit * Reason Onset Date Comments Fax 04/13/2023 Encounter Details Date Type Department Care Team Description 04/13/[address] [phone] Elsy Aceves MD [address] [place] [address] Fax Allergies Active Allergy Reactions Severity [...] as of this encounter (statuses as of 04/13/2023) Medications Medication Sig Dispensed Refills Start Date [...] SolutionIndications:P ost-nasal discharge Administer into nostril 1 [place] in the morning AND 1 [place] before bedtime. 30 mL 0 11/30/2021 Active Fexofenadine HCl 180 MG Oral Tablet (Lizzette) Take by mouth 1 Tablet daily as needed for Allergies. 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 0 05/05/2006 01/23/2009 Overview: ICD-10 update of inactive term Anticoagulation management encounter 05/05/2006 10/03/2019 Unspecified viral infection, in conditions classified elsewhere and of unspecified site 06/08/2005 09/25/2007 Menopause 12/19/2001 12/27/2017 FEM STRESS INCONTINENCE 05/10/2001 12/04/19 02 documented as of this encounter (statuses as of 04/13/2023) Immunizations Name Administration Dates Next Due COVID-19 mRNA, LNP-s, No Pre serve, 2-Dose Series ([employer]) 09/13/2021,01/05/2021,12/15/2020 Covid-19, Mrna, Lnp-s, Pf, B ivalent, [...] encounter Miscellaneous Notes * Telephone Encounter - BRYN Riggins - 04/13/2023 6:02 PM EDT Fax sent to [facility] on order changes. Fax- [phone] documented in this encounter Plan of Treatment Upcoming Encounters Date Type Specialty Care Team Description 05/01/2023 Office Visit Cardiology Bucky Calvo PA-C [address] [place] [address] 05/08/2023 Cardiac Studies Cardiology [place] [facility] [address] [place] [address] 05/09/2023 Telemedicine Infectious Disease Marin Pena MD [address] [place] [address] 05/10/2023 Office Visit Hematology Oncology Agustín Sullivan MD [address] [place] [address] 05/11/2023 Laboratory [facility] [place], [facility] [address] [place] [address] 05/15/2023 Anticoagulation Pharmacy Pharmacist2, [facility] [address] [place] [address] 05/15/2023 Office Visit Family Medicine Yaya Frederick MD [address] [place] [address] 05/22/2023 Office Visit Cardiology Bucky Calvo PA-C [address] [place] [address] 06/23/2023 Office Visit Otolaryngology Keely Tanner PA-C [address] [place] [address] Health Maintenance Due Date Last Done Comments Zoster Vaccines (1 of 2) 1954 *BISPHONATE OR OTHER ACCEPTABLE MEDICATION NEEDED FOR OSTEOPOROSIS (REFER TO SMARTSET #1146) 10/24/2021 Albumin/Creatinine Ratio 07/04/2023 022, 12/02/2010, 09/24/2009, Additional history exists CKD PHOS USE SMARTSET 76852 11/04/2023 11/04/2022, 0 02/14/2019 Depression Screening, Annual for Pts 12 and Over 02/09/2024 02/08/2023 CKD HGB USE SMARTSET 54611 03/22/202403/22, 03/22/2023, 02/23/2023, Additional history exists DXA Scan 11/09/2024 11/09/2022, 01/21, 11/03/2015, Additional history exists DTaP,Tdap,and Td Vaccines (3 - Td or Tdap) 06/04/2029 06/04/2019, 01/28/2019, 05/26/2008 Pneumococcal Vaccine: 65+ Years Completed 05/24/2016, 11/14/2001 Influenza Vaccine (FLU shot) Completed 09/2022, 07/19/2021, 07/19/2021, Additional history exists COVID-19 Vaccine Completed 09/29/2022, , 01/05/2021, Additional history exists VITAMIN D LEVEL ONCE IN A LIFETIME-USE SMARTSET# 16993 Completed 11/04/2022, 02/14/2019, 06/28/2011, Additional history exists [...] as of this encounter Care Teams Manager Group Relationship Specialty Start Date End Date Yaya Frederick MD [address] [place] [address] PCP - General Family Medicine 05/04/21 documented as of this encounter
--- OUTSIDE RECORDS SUMMARY | 2023-09-12 22:36 | External Medical Summary | Summary of Care ---
Author Name Unknown Organization [facility] Address [address] [place] [address] Phone [phone] Care Team Providers Care Change Of Address Clerk Name Role Phone Yaya Frederick MD Primary Care Provider [phone] Encounter Details Date Type Department Care Team Description 04/06/2023 Telephone Infectious Disease, [place] [address] [place] [address] Tavo Pena MD [address] [place] [address] Allergies Active Allergy Reactions Severity [...] as of this encounter (statuses as of 04/10/2023) Medications Medication Sig Dispensed Refills Start Date [...] SolutionIndications:P ost-nasal discharge Administer into nostril 1 [place] in the morning AND 1 [place] before bedtime. 30 mL 0 11/30/2021 Active Fexofenadine HCl 180 MG Oral Tablet (Lizzette) Take by mouth 1 Tablet daily as needed for Allergies. 90 Tablet 0 01/21/2022 Active Ipratropium [place] 0.03 % Nasal Solution Administer into each nostril 2 Sprays 2 times a day as needed for Rhinitis. 30 mL 5 02/23/2022 Active Warfarin Sodium 2.5 MG Oral TabletIndications:Chr onic ischemic heart disease Up to one tablet daily as directed by the Antico clinic 100 Tablet 3 08/09/2022 Active Mometasone [...] Additional Information Patient not taking.Reported on 03/24/2023 Spironolactone 25 MG Oral Tablet (Aldactone)Indication s:Chronic ischemic heart disease,HTN, goal below 150/90,Old myocardial infarct Take 0.5 Tablets by mouth once a day on Monday, Monday, and Monday only. 40 Tablet 1 02/22/2023 Active Hydroxyurea 500 MG Oral Capsule (Hydrea)Indications:E ssential thrombocythemia (HCC) Take 1 capsule by mouth 5 days a week 60 Capsule 3 02/23/2023 Active Amoxicillin-Pot Clavulanate 875-125 MG Oral Tablet 1 tablet twice daily with food for 10 days 20 Tablet 0 03/21/2023 Active Phenazopyridine HCl 200 MG Oral Tablet (Pyridium) 1 tablet every 8 hours as needed After meals for pain with urination 30 Tablet 0 03/21/2023 Active Additional Information Patient not taking.Reported on 03/24/2023 Torsemide 20 MG Oral Tablet (Demadex)Indications: Chronic ischemic heart disease Take 2 Tablets by mouth in the morning. 1 additional tablet mid day as needed for increase weight. 100 Tablet 2 03/21/2023 Active Estrogens Conjugated 0.625 MG/GM Vaginal Cream (Premarin)Indications :Recurrent UTI Administer 0.5 g into the vagina in the morning. 30 g 2 03/24/2023 Active Pantoprazole Sodium 40 MG Oral Tablet Delayed Release (Protonix)Indications :Esophagitis Take 1 Tablet by mouth in the morning. 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 0 05/05/2006 01/23/2009 Overview: ICD-10 update of inactive term Anticoagulation management encounter 05/05/2006 10/03/2019 Unspecified viral infection, in conditions classified elsewhere and of unspecified site 06/08/2005 09/25/2007 Menopause 12/19/2001 12/27/2017 FEM STRESS INCONTINENCE 05/10/2001 12/04/19 02 documented as of this encounter (statuses as of 04/10/2023) Immunizations Name Administration Dates Next Due COVID-19 mRNA, LNP-s, No Pre serve, 2-Dose Series ([employer]) 09/13/2021,01/05/2021,12/15/2020 Covid-19, Mrna, Lnp-s, Pf, B ivalent, 30 Mcg, IM, 12 yrs and above (Elo[employer]) 09/29/2022 H1N1 2009 Influenza, IM 10/08/2009 Pneumococcal [...] is aware and will go to a [place] facility for urine specimen. NN will watch [...] Encounters Date Type Specialty Care Team Description 04/13/2023 Office Visit Cardiology Joe Richardson DO [address] [place] [address] 05/08/2023 Cardiac Studies Cardiology [place] [facility] [address] [place] [address] 05/09/2023 Telemedicine Infectious Disease [facility] Pena MD [address] [facility] [place] [id number] 05/10/2023 Office Visit Hematology Oncology Agustín Sullivan MD [address] [place] [address] 05/11/2023 Laboratory [facility], Lab [address] [place] [address] 05/15/2023 [facility] Pharmacist, [facility] [place] [address] [place], [place] [phone] 05/15/2023 Office Visit Family Medicine Yaya Frederick MD [address] [place] [address] 05/22/2023 Office Visit Cardiology Bcuky Calvo PA-C [address] [place] [address] 06/23/2023 Office Visit Otolaryngology Keely Tanner PA-C [address] [place] [address] Scheduled Orders Name Type Priority Associated Diagnoses Orde r Schedule CULTURE, URINE, QUANTITATIVE Lab Routine UTI (urinary tract infection) Expected: 04/17/2023 (Approximate), Expires: 04/10/2024 URINALYSIS, REFLEX TO MICROSCOPIC Lab Routine UTI (urinary tract infection) Expected: 04/17/2023 (Approximate), Expires: 04/10/2024 Health Maintenance Due Date Last Done Comments Zoster Vaccines (1 of 2) 1954 *BISPHONATE OR OTHER ACCEPTABLE MEDICATION NEEDED FOR OSTEOPOROSIS (REFER TO SMARTSET #1146) 10/24/2021 Albumin/Creatinine Ratio 07/04/2023 022, 12/02/2010, 09/24/2009, Additional history exists CKD PHOS USE SMARTSET 69697 11/04/2023 11/04/2022, 0 02/14/2019 Depression Screening, Annual for Pts 12 and Over 02/09/2024 02/08/2023 CKD HGB USE SMARTSET 41176 03/22/202403/22, 03/22/2023, 02/23/2023, Additional history exists DXA Scan 11/09/2024 11/09/2022, 01/21, 11/03/2015, Additional history exists DTaP,Tdap,and Td Vaccines (3 - Td or Tdap) 06/04/2029 06/04/2019, 01/28/2019, 05/26/2008 Pneumococcal Vaccine: 65+ Years Completed 05/24/2016, 11/14/2001 Influenza Vaccine (FLU shot) Completed 09/2022, 07/19/2021, 07/19/2021, Additional history exists COVID-19 Vaccine Completed 09/29/2022, , 01/05/2021, Additional history exists VITAMIN D LEVEL ONCE IN A LIFETIME-USE SMARTSET# 09992 Completed 11/04/2022, 02/14/2019, 06/28/2011, Additional history exists [...] as of this encounter Visit Diagnoses Diagnosis UTI (urinary tract infection)- Primary Urinary tract infection, site not specified documented in this encounter Additional Health Concerns Infection Onset Date Last Indicated Resolved Time Varicella zoster 08/01/2022 08/01/2022 ESBL 01/26/2023 03/10/2023 documented as of this encounter Care Teams Change Of Address Clerk Relationship Specialty Start Date End Date Yaya Frederick MD [address] [place] [address], [place] [address] PCP - General Family Medicine 05/04/21 documented as of this encounter
--- OUTSIDE RECORDS SUMMARY | 2023-09-12 22:36 | External Medical Summary | Summary of Care ---
Author Name Unknown Organization [facility] Address [address] [facility] [place] [address] Phone [phone] Care Team Providers Care Director Hospice Operations Name Role Phone Yaya Frederick MD Primary Care Provider Encounter Details Date Type Department Care Team Description 03/21/2023 Result Scan Unspecified Department <No scans attached> Allergies Active Allergy Reactions [...] SolutionIndications:P ost-nasal discharge Administer into nostril 1 [place] in the morning AND 1 [place] before bedtime. 30 mL 0 11/30/2021 Active Fexofenadine HCl 180 MG Oral Tablet (Lizzette) Take by mouth 1 Tablet daily as needed for Allergies. 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 # [id number] Core Feeder: Wilda Serrano MD [phone] Type 2 diabetes mellitus wit h hemoglobin [...] mRNA, LNP-s, No Pre serve, 2-Dose Series ([employer]) 09/13/2021,01/05/2021,12/15/2020 Covid-19, Mrna, Lnp-s, Pf, B ivalent, 30 Mcg, IM, 12 yrs and above ([employer]) 09/29/2022 H1N1 2009 Influenza, IM 10/08/2009 Pneumococcal [...] Bucky Calvo PA-C [address] [place] [address] 05/08/2023 Cardiac Studies Cardiology [place] [facility] [address] [place] [place] [address] 05/09/2023 Telemedicine Infectious Disease Marin Pena MD [address] [place] [address] 05/10/2023 Office Visit Hematology Oncology Agustín Sullivan MD [address] [place] [address] 05/11/2023 Laboratory [facility] [place], Lab [address] [place] [address] 05/15/2023 [facility] Pharmacy Pharmacist, [facility] [address] [place] [address] 05/15/2023 Office Visit Family Medicine Yaya Frederick MD [address] [place] [address] 05/22/2023 Office Visit Cardiology Bucky Calvo PA-C [address] [place] [address] 06/23/2023 Office Visit Otolaryngology Keely Tanner PA-C [address] [place] [address] Health Maintenance Due Date Last Done Comments Zoster Vaccines (1 of 2) 1954 *BISPHONATE OR OTHER ACCEPTABLE MEDICATION NEEDED FOR OSTEOPOROSIS (REFER TO SMARTSET #1146) 10/24/2021 Albumin/Creatinine Ratio 07/04/2023 022, 12/02/2010, 09/24/2009, Additional history exists CKD PHOS USE SMARTSET 68334 11/04/2023 11/04/2022, 0 02/14/2019 Depression Screening, Annual for Pts 12 and Over 02/09/2024 02/08/2023 CKD HGB USE SMARTSET 43206 03/22/202403/22, 03/22/2023, 02/23/2023, Additional history exists DXA Scan 11/09/2024 11/09/2022, 01/21, 11/03/2015, Additional history exists DTaP,Tdap,and Td Vaccines (3 - Td or Tdap) 06/04/2029 06/04/2019, 01/28/2019, 05/26/2008 Pneumococcal Vaccine: 65+ Years Completed 05/24/2016, 11/14/2001 Influenza Vaccine (FLU shot) Completed 09/2022, 07/19/2021, 07/19/2021, Additional history exists COVID-19 Vaccine Completed 09/29/2022, , 01/05/2021, Additional history exists VITAMIN D LEVEL ONCE IN A LIFETIME-USE SMARTSET# 57269 Completed 11/04/2022, 02/14/2019, 06/28/2011, Additional history exists [...] Procedure Name Priority Date/Time Associated Diagnosis Comments PROCEDURE SCANNED RESULT 03/21/2023 documented in this encounter Results * PROCEDURE SCANNED RESULT (03/21/2023) 03/21/2023 No Physician Data Unknown SURGERY documented in this encounter Additional Health Concerns Infection Onset Date Last Indicated Resolved Time Varicella zoster 08/01/2022 08/01/2022 ESBL 01/26/2023 03/10/2023 documented as of this encounter Care Teams Director Hospice Operations Relationship Specialty Start Date End Date Yaya Frederick MD [address] [place] [phone] PCP - General Family Medicine 05/04/21 documented as of this encounter
--- OUTSIDE RECORDS SUMMARY | 2023-09-12 22:36 | External Medical Summary ---
Author Name Unknown Address Unknown Organization K01:[facility] - [address] [facility] [place] [address] Laboratory Report Ordering Provider Test Date Status CODY VO 04/14/2023 11:37:51 Final <10,000 colonies/ml mixed no rmal jone Observation Date Value Abnormality Reference (Units ) Status Bacteria identified in Unspecified specimen by Culture 04/14/2023 11:37:51 [id number]^ESCHE RICHIA COLI ESBL Abnormal Final >100,000 colonies/mL Escheri marissa coli ESBL producing organism, This patient may require isolation.
This gram negative bacilli displays in vitro resistance to multiple antibiotics. This patient may require isolation. Carbapenem use is preferred. Contact infectious disease service for further recommendations. Performing Location [facility] - [address] [facility] [place] [address] Ordering Provider Test Date Status CODY VO 04/14/2023 11:37:51 Final Observation Date Value Abnormality Reference (Units ) Status Ampicillin 04/14/2023 11:37:51 >=32 Resistant Final Ampicillin + Sulbactam 04/14/2023 11:37:51 16 Intermediate Final Cefazolin 04/14/2023 11:37:51 >=64 Resistant Final Cefepime susceptibility 04/14/2023 11:37:51 Susceptible Final This is an appended report. These results have been appended to a previously preliminary verified report. Ceftriaxone suceptibility 04/14/2023 11:37:51 32 Resi stant Final Ciprofloxacin 04/14/2023 11:37:51 >=4 Resistant Final Due to serious side effects, the FDA has advised against using Ciprofloxacin to treat uncomplicated UTIs and respiratory tract infections unless there are no alternative treatment options. Gentamicin susceptibility 04/14/2023 11:37:51 <=1 Susc eptible Final Levofloxacin susceptibility 04/14/2023 11:37:51 >=8 Re sistant Final Due to serious side effects, the FDA has advised against using Levofloxacin to treat uncomplicated UTIs and respiratory tract infections unless there are no alternative treatment options. Meropenem [Susceptibility] 04/14/2023 11:37:51 <=0.25 Ana ceptible Final Nitrofurantoin susceptibility 04/14/2023 11:37:51 <=16 Susceptible Final Piperacillin + Tazobactamsusceptibility 04/14/2023 11:37:51 <=4 Susceptible Final TMP-SMZ susceptibility 04/14/2023 11:37:51 <=20 Suscept ible Final Performing Location [facility] - [address] [facility] [address] [place] [address] Ordering Provider Test Date Status CODY VO 04/14/2023 11:37:51 Final Observation Date Value Abnormality Reference (Units ) Status Ertapenem [Susceptibility] 04/14/2023 11:37:51 34 Susceptible Susceptible >21 , Intermediate <=21 , Resistant <=18 Final Test: Culture, Urine, Quanti tative
Specimen Source: Urine, Clean Catch
Specimen Type: Urine
Specimen Date: 04/14/2023 11:37 AM
Result Date: 04/17/2023 2:52 PM
Result Status: Final result
Abnormal: Yes
Resulting Lab: [facility]
[address]
[place] [address]

CULTURE

>100,000 colonies/mL Escherichia coli ESBL producing [...] 32 Resistant
CIPROFLOXACIN >=4 Resistant [2]
ERTAPENEM 34 Susceptible
GENTAMICIN <=1 Susceptible
LEVOFLOXACIN >=8 Resistant [...] alternative treatment options.

null Performing Location LABORATORY [facility] - [facility] [address] [facility] [place] [address]
--- OUTSIDE RECORDS SUMMARY | 2023-09-12 22:36 | External Medical Summary | Summary of Care ---
Author Name Unknown Organization [facility] Address [address] [place] [address] Phone [phone] Care Team Providers Care Hr Clerk Name Role Phone Yaya Frederick MD Primary Care Provider Encounter Details Date Type Department Care Team Description 04/06/2023 Telephone Infectious Disease, [place] [address] [place] [address] Marin Pena MD [address] [place] [address] Allergies Active Allergy Reactions Severity [...] SolutionIndications:P ost-nasal discharge Administer into nostril 1 [place] in the morning AND 1 [place] before bedtime. 30 mL 0 11/30/2021 Active Fexofenadine HCl 180 MG Oral Tablet (Lizzette) Take by mouth 1 Tablet daily as needed for Allergies. 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 # [id number] Project Coordinator: Wilda Serrano MD [phone] Type 2 diabetes mellitus wit h hemoglobin A1c goal of less than 7.0% 11/03/2006 08/15/2007 Overview: ICD-10 update of inactive term PURE HYPERCHOLESTEROLEM 11/03/2006 10/01/20 09 Overview: Per Lipid Taxonomy. 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 Dr. ePna gave me verbal orders for UA, C & S. (Verbal order read back to physician) Orders pended. Dr. Pena, please review and sign pended orders. I called and spoke with Pt, she is aware and will go to a [facility] facility for urine specimen. NN will watch [...] Visit Cardiology Joe Richardson DO [address] [facility] [place] [address] 05/08/2023 [facility] Studies [facility] [address] [place] [address] 05/09/2023 Telemedicine Infectious Disease Marin Pena MD [address] [place] [address] 05/10/2023 Office Visit Hematology Oncology Agustín Sullivan MD [address] [place] [address] 05/11/2023 Laboratory [facility] [place], [facility] [address] [place] [address] 05/15/2023 [facility] Pharmacist, [facility] [address] [place] [address] 05/15/2023 Office Visit Family Medicine Yaya Frederick MD [address] [place], [place] [phone] 05/22/2023 Office Visit Cardiology Bucky Calvo PA-C [address] [place] [address] 06/23/2023 Office Visit Otolaryngology Keely Tanner PA-C [address] [place] [address] Health Maintenance Due Date Last Done Comments Zoster Vaccines (1 of 2) 1954 *BISPHONATE OR OTHER ACCEPTABLE MEDICATION NEEDED FOR OSTEOPOROSIS (REFER TO SMARTSET #1146) 10/24/2021 Albumin/Creatinine Ratio 07/04/2023 022, 12/02/2010, 09/24/2009, Additional history exists CKD PHOS USE SMARTSET 43734 11/04/2023 11/04/2022, 0 02/14/2019 Depression Screening, Annual for Pts 12 and Over 02/09/2024 02/08/2023 CKD HGB USE SMARTSET 80911 03/22/202403/22, 03/22/2023, 02/23/2023, Additional history exists DXA Scan 11/09/2024 11/09/2022, 01/21, 11/03/2015, Additional history exists DTaP,Tdap,and Td Vaccines (3 - Td or Tdap) 06/04/2029 06/04/2019, 01/28/2019, 05/26/2008 Pneumococcal Vaccine: 65+ Years Completed 05/24/2016, 11/14/2001 Influenza Vaccine (FLU shot) Completed 09/2022, 07/19/2021, 07/19/2021, Additional history exists COVID-19 Vaccine Completed 09/29/2022, , 01/05/2021, Additional history exists VITAMIN D LEVEL ONCE IN A LIFETIME-USE SMARTSET# 33121 Completed 11/04/2022, 02/14/2019, 06/28/2011, Additional history exists [...] documented as of this encounter Care Teams Hr Clerk Relationship Specialty Start Date End Date Yaya Frederick MD [address] [place] [address] PCP - General Family Medicine 05/04/21 documented as of this encounter
--- OUTSIDE RECORDS SUMMARY | 2023-09-12 22:36 | External Medical Summary | Summary of Care ---
Author Name Unknown Organization [facility] Address [address] [facility] [place] [address] Phone [phone] Care Team Providers Care Riveter Name Role Phone Yaya Frederick MD Primary Care Provider [phone] Encounter Details Date Type Department Care Team Description 04/10/2023 Result Scan Unspecified Department Yared Raphael MD [address] [place] [address] <No scans attached> Allergies Active Allergy [...] SolutionIndications:P ost-nasal discharge Administer into nostril 1 [place] in the morning AND 1 [place] before bedtime. 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 0 [...] mRNA, LNP-s, No Pre serve, 2-Dose Series ([employer]) 09/13/2021,01/05/2021,12/15/2020 Covid-19, Mrna, Lnp-s, Pf, B ivalent, [...] Encounters Date Type Specialty Care Team Description 04/10/2023 Office Visit Cardiology Bucky Calvo PA-C [address] [place] [address] 04/13/2023 Office Visit Cardiology Joe Richardson DO [address] [place] [address] 05/08/2023 Cardiac Studies Cardiology [place] [facility] [address] [place] [address] 05/09/2023 Telemedicine Infectious Disease Marin Pena MD [address] [place] [address] 05/10/2023 Office Visit Hematology Oncology Agustín Sullivan MD [address] [place] [address] 05/11/2023 Laboratory [facility] [place], [facility] [address] [place] [address] 05/15/2023 Anticoagulation Pharmacy Pharmacist, [facility] [place] [address] [place] [address] 05/15/2023 Office Visit Family Medicine Yaya Frederick MD [address] [place] [address] 05/22/2023 Office Visit Cardiology Bucky Calvo PA-C [address] [place] [address] 06/23/2023 Office Visit Otolaryngology Keely Tanner PA-C [address] [place] [address] Health Maintenance Due Date Last Done Comments Zoster Vaccines (1 of 2) 1955 *BISPHONATE OR OTHER ACCEPTABLE MEDICATION NEEDED FOR OSTEOPOROSIS (REFER TO SMARTSET #1146) 10/24/2021 Albumin/Creatinine Ratio 07/04/2023 022, 12/02/2010, 09/24/2009, Additional history exists CKD PHOS USE SMARTSET 07598 11/04/2023 11/04/2022, 0 02/14/2019 Depression Screening, Annual for Pts 12 and Over 02/09/2024 02/08/2023 CKD HGB USE SMARTSET 07846 03/22/202403/22, 03/22/2023, 02/23/2023, Additional history exists DXA Scan 11/09/2024 11/09/2022, 01/21, 11/03/2015, Additional history exists DTaP,Tdap,and Td Vaccines (3 - Td or Tdap) 06/04/2029 06/04/2019, 01/28/2019, 05/26/2008 Pneumococcal Vaccine: 65+ Years Completed 05/24/2016, 11/14/2001 Influenza Vaccine (FLU shot) Completed 09/2022, 07/19/2021, 07/19/2021, Additional history exists COVID-19 Vaccine Completed 09/29/2022, , 01/05/2021, Additional history exists VITAMIN D LEVEL ONCE IN A LIFETIME-USE SMARTSET# 89739 Completed 11/04/2022, 02/14/2019, 06/28/2011, Additional history exists [...] Date/Time Associated Diagnosis Comments CARDIOLOGY SCANNED RESULT 04/10/2023 documented in this encounter Results * CARDIOLOGY SCANNED RESULT (04/10/2023) 04/10/2023 Yared Raphael MD OTHER documented in this encounter Additional Health Concerns Infection Onset Date Last Indicated Resolved Time Varicella zoster 08/01/2022 08/01/2022 ESBL 01/26/2023 03/10/2023 documented as of this encounter Care Teams Riveter Relationship Specialty Start Date End Date Yaya Frederick MD [address] [place] [address] [phone] PCP - General Family Medicine 05/04/21 documented as of this encounter
--- OUTSIDE RECORDS SUMMARY | 2023-09-12 22:36 | External Medical Summary | Summary of Care ---
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 30 mL 0 11/30/2021 Active Fexofenadine HCl 180 MG Oral Tablet (Lizzette) Take by mouth 1 Tablet daily as needed for Allergies. 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 Providers see scanned report in scans tab. Return in 4 weeks for an DC visit to monitor device longevity. Tech: Artie Albert III Pattern Puncher: Dr. Raphael documented in this encounter Plan of Treatment Upcoming Encounters Date Type Specialty Care Team Description 05/08/2023 Cardiac Studies Cardiology [place] [address] [place] [address] 05/09/2023 Telemedicine Infectious Disease Marin Pean MD [address] [place] [address] 05/10/2023 Office Visit Hematology Oncology Agustín Sullivan MD [address] [place] [address] 05/11/2023 Laboratory [facility] [place], [address] [place] [address] 05/15/2023 Anticoagulation Pharmacy Pharmacist2, [facility] [place] [address] [place] [address] 05/15/2023 Office Visit Family Medicine Yaya Frederick MD [address] [place], [place] [phone] 05/22/2023 Office Visit Cardiology Bucky Calvo PA-C [address] [place] [address] 06/23/2023 Office Visit Otolaryngology Keely Tanner PA-C [address] [place] [address] Scheduled Orders Name Type Priority Associated Diagnoses Orde r Schedule DUAL-LEAD PACEMAKER + REPROGRAM Procedures Routine Sinus node dysfunction (HCC) Persistent atrial fibrillation (HCC) Cardiac pacemaker in situ Ordered: 04/07/2023 Health Maintenance Due Date Last Done Comments Zoster Vaccines (1 of 2) 1954 *BISPHONATE OR OTHER ACCEPTABLE MEDICATION NEEDED FOR OSTEOPOROSIS (REFER TO SMARTSET #1146) 10/24/2021 Albumin/Creatinine Ratio 07/04/20232 022, 12/02/2010, 09/24/2009, Additional history exists CKD PHOS USE SMARTSET 14959 11/04/2023 11/04/2022, 0 02/14/2019 Depression Screening, Annual for Pts 12 and Over 02/09/2024 02/08/2023 CKD HGB USE SMARTSET 42879 03/22/202403/22, 03/22/2023, 02/23/2023, Additional history exists DXA Scan 11/09/2024 11/09/2022, 01/21, 11/03/2015, Additional history exists DTaP,Tdap,and Td Vaccines (3 - Td or Tdap) 06/04/2029 06/04/2019, 01/28/2019, 05/26/2008 Pneumococcal Vaccine: 65+ Years Completed 05/24/2016, 11/14/2001 Influenza Vaccine (FLU shot) Completed 09/2022, 07/19/2021, 07/19/2021, Additional history exists COVID-19 Vaccine Completed 09/29/2022, , 01/05/2021, Additional history exists VITAMIN D LEVEL ONCE IN A LIFETIME-USE SMARTSET# 70560 Completed 11/04/2022, 02/14/2019, 06/28/2011, Additional history exists [...] documented as of this encounter Care Teams Spot Facer Relationship Specialty Start Date End Date Yaya Frederick MD [address] [place] [address] [phone] PCP - General Family Medicine 05/04/21 documented as of this encounter
--- OUTSIDE RECORDS SUMMARY | 2023-09-12 22:36 | External Medical Summary | Summary of Care ---
Author Name Unknown Organization [facility] Address [address] [facility] [place] [address] Phone [phone] Care Team Providers Care Group Segment Consultant Name Role Phone Yaya Frederick MD Primary Care Provider [phone] Reason for Visit * Reason Onset Date Comments Advice 04/07/2023 Encounter Details Date Type Department Care Team Description 04/07/2023 Telephone Cardiology, [facility] [address] [place] [address] Bucky Calvo PA-C [address] [place] [phone] Advice Allergies Active Allergy Reactions Severity Noted [...] SolutionIndications :Post-nasal discharge Administer into nostril 1 [place] in the morning AND 1 [place] before bedtime. 30 mL 0 11/30/19 22 Active Fexofenadine HCl 180 MG Oral Tablet (Lizzette) Take by mouth 1 Tablet daily as needed for Allergies. 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 # [id number] Home Health Attendant: Wilda Serrano MD [phone] Type 2 diabetes mellitus wit h hemoglobin A1c goal of less than 7.0% 11/03/2006 08/15/2007 Overview: ICD-10 update of inactive term PURE HYPERCHOLESTEROLEM 11/03/2006 10/01/20 09 Overview: Per Lipid Taxonomy. 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 * Telephone Encounter - Fish Meehan RN - 04/10/2023 11:17 AM EDT Bucky phoned the clinic and he stated he can see the patient at 1:00pm today. Called and spoke to the patient and she agreed. * Telephone Encounter - Bucky Calvo PA-C - 04/10/2023 11:12 AM EDT I can see her this (04/10/2023) afternoon at [facility] Bucky Calvo PA-C Department of Cardiology * Telephone Encounter - Cathy Guevara RN - 04/07/2023 12:48 PM EDT Patient evaluated by PCP 03/21/23. Short course of increased torsemide advised at this visit for weight gain/fatigue. BNP drawn. No sooner openings available, please advise. * Telephone Encounter - Cathy Guevara RN - 04/07/2023 12:48 PM EDT ----- Message from ROMA Faye sent at 04/07/2023 10:47 AM EDT ----- Regarding: Fluid Retention / swelling Dr. Raphael and Bucky, The patient has swollen ankles and pitting edema on both lower legs. She also has complaints of tiredness and abdominal pain. Patient is scheduled to see bucky on 05/22/23 but would like seen sooner. documented in this encounter Plan of Treatment Upcoming Encounters Date Type Specialty Care Team Description 05/01/2023 Office Visit [facility]iology [facility] [address] [facility] [address] 05/08/2023 Cardiac Studies Cardiology [place] [facility] [address] [facility] [address] 05/09/2023 Telemedicine Infectious Disease Marin Pena MD [address] [place], [place] [phone] 05/10/2023 Office Visit Hematology Oncology Agustín Sullivan MD [address] [place] [address] 05/11/2023 Laboratory [facility] [place], [facility] [address] [place] [address] 05/15/2023 Anticoagulation Pharmacy Pharmacist2, [facility] [address] [place] [address] 05/15/2023 Office Visit Family Medicine Yaya Frederick MD [address] [place] [address] 05/22/2023 Office Visit Cardiology Bucky Calvo PA-C [address] [place] [address] 06/23/2023 Office Visit Otolaryngology Keely Tanner PA-C [address] [place] [address] Health Maintenance Due Date Last Done Comments Zoster Vaccines (1 of 2) 1954 *BISPHONATE OR OTHER ACCEPTABLE MEDICATION NEEDED FOR OSTEOPOROSIS (REFER TO SMARTSET #1146) 10/24/2021 Albumin/Creatinine Ratio 07/04/2023 022, 12/02/2010, 09/24/2009, Additional history exists CKD PHOS USE SMARTSET 01481 11/04/2023 11/04/2022, 0 02/14/2019 Depression Screening, Annual for Pts 12 and Over 02/09/2024 02/08/2023 CKD HGB USE SMARTSET 45334 03/22/202403/22, 03/22/2023, 02/23/2023, Additional history exists DXA Scan 11/09/2024 11/09/2022, 01/21, 11/03/2015, Additional history exists DTaP,Tdap,and Td Vaccines (3 - Td or Tdap) 06/04/2029 06/04/2019, 01/28/2019, 05/26/2008 Pneumococcal Vaccine: 65+ Years Completed 05/24/2016, 11/14/2001 Influenza Vaccine (FLU shot) Completed 09/2022, 07/19/2021, 07/19/2021, Additional history exists COVID-19 Vaccine Completed 09/29/2022, , 01/05/2021, Additional history exists VITAMIN D LEVEL ONCE IN A LIFETIME-USE SMARTSET# 02720 Completed 11/04/2022, 02/14/2019, 06/28/2011, Additional history exists [...] documented as of this encounter Care Teams Group Segment Consultant Relationship Specialty Start Date End Date Yaya Frederick MD [address] [place] [phone] PCP - General Family Medicine 05/04/21 documented as of this encounter
--- OUTSIDE RECORDS SUMMARY | 2023-09-12 22:36 | External Medical Summary | Summary of Care ---
Author Name Unknown Organization [facility] Address [address] [place] [address] Phone [phone] Care Team Providers Care Ski Binding Fitter And Repairer Name Role Phone Yaya Frederick MD Primary Care Provider [phone] Encounter Details Date Type Department Care Team Description 04/06/2023 Telephone Infectious Disease, [place] [address] [place] [address] Marin Pena MD [address] [place] [address] Allergies Active Allergy Reactions Severity [...] SolutionIndications:P ost-nasal discharge Administer into nostril 1 [place] in the morning AND 1 [place] before bedtime. 30 mL 0 11/30/2021 Active Fexofenadine HCl 180 MG Oral Tablet (Lizzette) Take by mouth 1 Tablet daily as needed for Allergies. 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 # [id number] Transaction Coordinator: Wilda Serrano MD [phone] Type 2 diabetes mellitus wit h hemoglobin A1c goal of less than 7.0% 11/03/2006 08/15/2007 Overview: ICD-10 update of inactive term PURE HYPERCHOLESTEROLEM 11/03/2006 10/01/20 09 Overview: Per Lipid Taxonomy. 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 [...] mRNA, LNP-s, No Pre serve, 2-Dose Series ([employer]) 09/13/2021,01/05/2021,12/15/2020 Covid-19, Mrna, Lnp-s, Pf, B ivalent, 30 Mcg, IM, 12 yrs and above ([employer]) 09/29/2022 H1N1 2009 Influenza, IM 10/08/2009 Pneumococcal [...] Description 05/08/2023 Cardiac Studies Cardiology [place] [facility] [address] [place] [address] 05/09/2023 Telemedicine Infectious Disease Marin Pena MD [address] [place], [place] [phone] 05/10/2023 Office Visit Hematology Oncology Agustín Sullivan MD [address] [facility] [place] [address] 05/11/2023 Laboratory Laboratory [facility], Lab [facility] [address] [place] [address] 05/15/2023 Anticoagulation Pharmacy Pharmacist, [facility] [place] [address] [place] [address] 05/15/2023 Office Visit Family Medicine Yaya Frederick MD [address] [place] [address] 05/22/2023 Office Visit Cardiology Bucky Calvo PA-C [address] [place] [address] 06/23/2023 Office Visit Otolaryngology Keely Tanner PA-C [address] [place] [address] Health Maintenance Due Date Last Done Comments Zoster Vaccines (1 of 2) 1954 *BISPHONATE OR OTHER ACCEPTABLE MEDICATION NEEDED FOR OSTEOPOROSIS (REFER TO SMARTSET #1146) 10/24/2021 Albumin/Creatinine Ratio 07/04/2023 022, 12/02/2010, 09/24/2009, Additional history exists CKD PHOS USE SMARTSET 52583 11/04/2023 11/04/2022, 0 02/14/2019 Depression Screening, Annual for Pts 12 and Over 02/09/2024 02/08/2023 CKD HGB USE SMARTSET 60525 03/22/202403/22, 03/22/2023, 02/23/2023, Additional history exists DXA Scan 11/09/2024 11/09/2022, 01/21, 11/03/2015, Additional history exists DTaP,Tdap,and Td Vaccines (3 - Td or Tdap) 06/04/2029 06/04/2019, 01/28/2019, 05/26/2008 Pneumococcal Vaccine: 65+ Years Completed 05/24/2016, 11/14/2001 Influenza Vaccine (FLU shot) Completed 09/2022, 07/19/2021, 07/19/2021, Additional history exists COVID-19 Vaccine Completed 09/29/2022, , 01/05/2021, Additional history exists VITAMIN D LEVEL ONCE IN A LIFETIME-USE SMARTSET# 37918 Completed 11/04/2022, 02/14/2019, 06/28/2011, Additional history exists [...] documented as of this encounter Care Teams Ski Binding Fitter And Repairer Relationship Specialty Start Date End Date Yaya Frederick MD [address] [place], [place] [address] [address] PCP - General Family Medicine 05/04/21 documented as of this encounter
--- OUTSIDE RECORDS SUMMARY | 2023-09-12 22:36 | External Medical Summary | Summary of Care ---
Author Name Unknown Organization [facility] Address [address] [facility] [place] [address] Phone [phone] Care Team Providers Care Roll Hauler Name Role Phone Yaya Frederick MD Primary Care Provider [phone] Reason for Visit * Reason Comments Follow Up Edema in LE- ankles. Weight gain. SOB worse at times. Denies chest pain, palpitations and dizziness. Encounter Details Date Type Department Care Team Description 04/10/2023 Office Visit Cardiology, [facility] [address] [place] [address] Bucky Calvo PA-C [address] [place] [id number] Heart failure, diastolic, with acute decompensation (HCC)*; CHR ISCHEMIC HRT DIS NOS; HTN, goal below 150/90; Old myocardial infarct; Encounter for monitoring diuretic therapy; S/P aortic valve replacement; S/P CABG (coronary artery bypass graft); Chronic diastolic CHF (congestive heart failure) (HCC) Allergies Active Allergy Reactions Severity Noted [...] 11/21/2022 GRX ANALGESIC BALM EX OINT (andie macllister) Apply topically to sore muscles as needed 0 07/01/20 13 Active LORazepam 0.5 MG Oral Tablet (Ativan)Indications :Anxiety Take 1 Tab by mouth every 8 hours as needed for Anxiety. 270 Tab 0 12/26/19 21 Active Azelastine HCl 0.15 % Nasal SolutionIndications :Post-nasal discharge Administer into nostril 1 [place] in the morning AND 1 [place] before bedtime. 30 mL 0 11/30/19 22 Active Fexofenadine HCl 180 MG Oral Tablet (Lizzette) Take by mouth 1 Tablet daily as needed for Allergies. 90 Tablet 0 01/22/20 22 Active Ipratropium [place] 0.03 % Nasal Solution [...] morning. 90 Tablet 1 03/28/20 23 Active Torsemide 20 MG Oral Tablet (Demadex)Indication s:Chronic ischemic heart disease 2 pills one daily alternating with 3 pills the next day 100 Tablet 2 04/10/20 23 Active Spironolactone 25 MG Oral Tablet (Aldactone)Indicati ons:Chronic ischemic heart disease,HTN, goal below 150/90,Old myocardial infarct Take 0.5 Tablets by mouth in the morning. 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 # [id number] Facilities And Grounds Director: Wilda Serrano MD [phone] Type 2 diabetes mellitus wit h hemoglobin [...] mRNA, LNP-s, No Pre serve, 2-Dose Series ([email or web address]) 09/13/2021,01/05/2021,12/15/2020 Covid-19, Mrna, Lnp-s, Pf, B ivalent, 30 Mcg, IM, 12 yrs and above ([email or web address]) 09/29/2022 H1N1 2009 Influenza, IM 10/08/2009 Pneumococcal [...] Sign Reading Time Taken Comments Blood Pressure 134/78 04/10/2023 1:02 PM EDT Pulse 72 04/10/2023 1:02 PM EDT Temperature - - Respiratory Rate 18 04/10/2023 1:02 PM EDT Oxygen Saturation - - Inhaled Oxygen Concentration - - Weight 80.7 kg (178 lb) 04/10/2023 1:02 PM EDT Height - - Body Mass Index 35.93 02/24/2023 10:21 AM EDT documented in this encounter Progress Notes * Bucky Calvo PA-C - 04/10/2023 1:12 PM EDT History of Present Illness: Shannon Cruz is a very pleasant 88-year-old female here today for acute cardiology follow-up evaluation. I feel good except I can not get this swelling off." Lax regarding sodium intake. + Increased shortness of breath, lower extremity peripheral edema, and weight gain. Current diuretic regimen is torsemide 40 mg/day, not always taking both pills at the same time. Occasionally she will take an additional 20 mg. Notes improvement in fluid status following recent transient titration of torsemide though with return following return to prior dosing. Prescribed supplemental oxygen 15/05 since January 2023, previously only utilized at nighttime. Notes utilizing oxygen at 2 liters/minute at rest, self adjusting to 3 liters/minute with activity "I still have a UTI. I have had the UTI going on for 2 years." No fevers. No rigors. Appetite is okay. Notes having a tiny bit of burning" from time to time. No significant dysuria. Urine is clearwhen she takes the diuretic. No hematuria. Recently prescribed Premarin cream though with resultantbreast soreness. Notes having a rectocele and not wanting to undergo surgical intervention. Concern regarding future generator exchange, particularly the possible use of Lovenox Chronically tired, worse with activity No exertional chest pain or discomfort. No overt palpitations. No orthopnea or PND. No positional lightheadedness or dizziness. No syncope. No epistaxis, hemoptysis, melena, hematochezia, or hematuria. 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 Restless legs syndrome G25.81 Asymptomatic bilateral carotid artery stenosis I65.23 HTN, goal below 150/90 I10 DYSLIPIDEMIA, GOAL LDL BELOW 70 E78.5 snf current use of anticoagulant therapy Z79.01 Cardiac [...] actinic keratosis Z87.2 Chronic hypoxemic respiratory failure ([facility]) J96.11 Chronic heart failure with preserved ejection fraction (HFpEF) ([facility]) I50.32 Past Medical History: Diagnosis Date Anticoagulation management encounter 05/05/2006 Atrial fibrillation ([facility]) Carotid Stenosis, non-symptomatic 16-49 % bilat. 05/25/2009 Chronic ischemic heart disease HTN, goal below 150/90 09/24/2009 Osteoporosis Past Surgical History: Procedure Laterality Date ATTACH BLADDER/URETHRA, SIMPLE 11/24 [place] CARDIAC CATH-CARDIOLOGY ONLY 04/27 COLONOSCOPY 09/26 polyp- adenoma repeat 10/01 COLONOSCOPY THRU STOMA, W/BIOPSY 07/29/13 adenomatous polyp CYSTOSCOPY 07/12/05 INSERT/REPLACE PULSE GEN ONLY, DOUBLE 04/08/2014 dual chamber mri compatible patecmaker insertion [facility]08[facility]14 KNEE ARTHROSCOPY/ARTHROPLASTY 09/2010 dr salcedo LIGATE/CUT OVIDUCT(S) 1963 OTHER 12/27 RCA drug eluting stent REPLACEMENT AORTIC VALVE, BYPASS WITH PROSTHETIC VALVE 04/27 [place] Bovine AVR TOTAL ABD HYSTERECTOMY W/WO REMOVAL [...] CHEW take one tablet daily 34 11 BENADRYL 25 MG PO TABS 1 TABLET EVERY 4 TO 6 HOURS NEEDED CALTRATE 600+D 600-400 MG-UNIT PO TABS one tablet twice daily 0 MAG-OXIDE 400 MG PO TABS one tablet twice a day (Patient taking differently: Take 1 Tablet by mouth in the morning.) 60 Tab 5 GRX ANALGESIC BALM EX OINT (andie mcallister) Apply topically to sore muscles as needed Azelastine HCl 0.15 % Nasal Solution Administer into nostril 1 [place] in the morning AND 1 Spraybefore bedtime. 30 mL 0 Fexofenadine HCl 180 MG Oral Tablet (Lizzette) Take by mouth 1 Tablet daily as needed for Allergies. 90 Tablet 0 Ipratropium [place] 0.03 % Nasal Solution Administer into each nostril 2 Sprays 2 times a day as needed for Rhinitis. 30 mL 5 Warfarin Sodium 2.5 MG Oral Tablet Up to one tablet daily as directed by the Antico clinic 100 Tablet 3 Mometasone Furoate 50 MCG/ACT Nasal Suspension Administer 2 Sprays into each nostril in the morning. 51 g 1 Metoprolol Succinate ER 100 MG Oral Tablet [...] mouth in the morning. 45 Tablet 3 LORazepam 0.5 MG Oral Tablet (Ativan) Take 1 Tab by mouth every 8 hours as needed for Anxiety. 270 Tab 0 rOPINIRole HCl 0.5 MG [...] list reflects today's changes PHYSICAL EXAM: BP 134/78 | Pulse 72 | Resp 18 | Wt 80.7 kg (178 lb) | BMI 35.93 kg/m | BSA 1.83 m General: A&Ox3. NAD. HENT: Normocephalic. Atraumatic. Neck: No JVD. Bilateral carotid bruits. Lungs: Diminished at the bases however clear to auscultation Cardiovascular: Irregularly irregular at 72 bpm. Grade II/IV systolic ejection murmur. No diastolicmurmur. No rub Abdomen: Soft, nontender. No hepatojugular reflux. Extremities: 1-2+ pitting edema. No clubbing. No cyanosis. Pulses: The right posterior tibial pulse was 2/4 and the left posterior tibial pulse was 1/4 Data: June 24, 2016 Lexiscan Interpretation Summary (as per Dr. Fisher): Myocardial [...] 42.1%. Average ventricular rates controlled. ASSESSMENT: 1. Acute decompensated diastolic congestive heart failure signs and symptoms. 2. Persistent atrial fibrillation with a controlled ventricular response, requiring high dose metoprolol, possibly contributing to chronic fatigue 3. Chronic [...] below, via shared decision making. RECOMMENDATIONS/PLAN: 1. Restrict sodium intake to 1,500 mg/day 2. Fluid restriction for the heart failure as well as proper hydration for the reported recurrent/persistent UTI cystitis with ESBL E coli discussed, targeting an oral intake of 40 to 50 oz per day 3. Increase torsemide from 40 mg/day to 40 mg one day alternating with 60 mg the next day. 4. Increase spironolactone dosing from 12.5 mg on MWF to 12.5 mg daily 5. Check a basic metabolic panel in about 2 weeks 6. Future generator exchange discussed. We also briefly discussing the possibility of adding a new lead. 7. ? Future reduction in metoprolol dosing to aid chronic tiredness/fatigue, likely concurrently adding digoxin 125 mcg on MWF 8. We did not talk about possible future AV junction ablation today. 9. Cardiology follow-up in 2-3 weeks or as needed. 10. ER with emergencies. I spent a total of 40-54 minutes (exact time 50 mins) on the date of service in preparation, delivery, and documentation of the care provided to Shannon Cruz excluding any time spent in the performance of separately billed services. This chart was completed in part utilizing [email or web address] Speech Voice Recognition Software. Grammatical errors, random word insertions, prounoun errors, and incompletesentences are an occasional consequence of this system due to software limitations, ambient noise, and hardware issues. Any formal questions or concerns about the content, text, or information contained within the body of this dictation should be directly addressed to the provider for clarification. Bucky Calvo PA-C Department of Cardiology documented in this encounter Nursing Notes * Adrian Galindo LPN - 04/10/2023 1:01 PM EDT Patient identified by full name and date of Chief Complaint Patient presents with Follow Up Edema in LE- ankles. Weight gain. SOB worse at times. Denies chest pain, palpitations and dizziness. Examination Room: 2 Name: Shannon Cruz Date of : (1935). Reason for Visit: Edema Interim Hospitalization(s): [facility] 01/29-02/02/23 Problems/Concerns: See chief complaint Chest Pain/SOB: See [...] Calvo PA-C [address] [place] [id number] 05/08/2023 [facility] [address] [place] [address] 05/09/2023 Telemedicine Infectious Disease Marin Pena MD [address], [place] [phone] 05/10/2023 Office Visit Hematology Oncology Agustín Sullivan MD [address] [place] [address] 05/11/2023 Laboratory Laboratory [place], [facility] [address] [place] [address] 05/15/2023 Anticoagulation Pharmacy Pharmacist2, [facility] [address] [place] [address] 05/15/2023 Office Visit Family Medicine Yaya Freedrick MD [address] [place] [address] 05/22/2023 Office Visit Cardiology Bucky Calvo PA-C [address] [place] [address] 06/23/2023 Office Visit Otolaryngology Keely Tanner PA-C [address] [place] [address] Scheduled Orders Name Type Priority Associated Diagnoses Orde r Schedule BASIC METABOLIC PANEL Lab Routine Encounter for monitoring diuretic therapy Heart failure, diastolic, with acute decompensation (HCC) Expected: 04/24/2023, Expires: 04/10/2024 Health Maintenance Due Date Last Done Comments Zoster Vaccines (1 of 2) 1954 *BISPHONATE OR OTHER ACCEPTABLE MEDICATION NEEDED FOR OSTEOPOROSIS (REFER TO SMARTSET #1146) 10/24/2021 Albumin/Creatinine Ratio 07/04/2023 022, 12/02/2010, 09/24/2009, Additional history exists CKD PHOS USE SMARTSET 94159 11/04/2023 11/04/2022, 0 02/14/2019 Depression Screening, Annual for Pts 12 and Over 02/09/2024 02/08/2023 CKD HGB USE SMARTSET 53506 03/22/202403/22, 03/22/2023, 02/23/2023, Additional history exists DXA Scan 11/09/2024 11/09/2022, 01/21, 11/03/2015, Additional history exists DTaP,Tdap,and Td Vaccines (3 - Td or Tdap) 06/04/2029 06/04/2019, 01/28/2019, 05/26/2008 Pneumococcal Vaccine: 65+ Years Completed 05/24/2016, 11/14/2001 Influenza Vaccine (FLU shot) Completed 09/2022, 07/19/2021, 07/19/2021, Additional history exists COVID-19 Vaccine Completed 09/29/2022, , 01/05/2021, Additional history exists VITAMIN D LEVEL ONCE IN A LIFETIME-USE SMARTSET# [id number] Completed 11/04/2022, 02/14/2019, 06/28/2011, Additional history exists [...] heart disease, unspecified HTN, goal below 150/90 Old myocardial infarct Old myocardial infarction Encounter for monitoring diuretic therapy Encounter for therapeutic drug monitoring S/P aortic valve replacement Heart valve replaced by other means S/P CABG (coronary artery bypass graft) Postsurgical aortocoronary bypass status Chronic diastolic CHF (congestive heart failure) (HCC) Chronic diastolic heart failure documented in this encounter Additional Health Concerns Infection Onset Date Last Indicated Resolved Time Varicella zoster 08/01/2022 08/01/2022 ESBL 01/26/2023 03/10/2023 documented as of this encounter Care Teams Roll Hauler Relationship Specialty Start Date End Date Yaya Frederick MD [address] [place] [phone] PCP - General Family Medicine 05/04/21 documented as of this encounter
--- OUTSIDE RECORDS SUMMARY | 2023-09-12 22:36 | External Medical Summary | Summary of Care ---
Author Name Unknown Organization [facility] Address [address] [place] [address] Phone [phone] Care Team Providers Care Wildlife Biostation Research Ecologist Name Role Phone Yaya Frederick MD Primary Care Provider [phone] Encounter Details Date Type Department Care Team Description 04/06/2023 Telephone Infectious Disease, [place] [address] [place] [address] Marin Pena MD [address] [place] [address] Allergies Active Allergy Reactions Severity [...] SolutionIndications:P ost-nasal discharge Administer into nostril 1 [place] in the morning AND 1 [place] before bedtime. 30 mL 0 11/30/2021 Active Fexofenadine HCl 180 MG Oral Tablet (Lizzette) Take by mouth 1 Tablet daily as needed for Allergies. 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 # [id number] Afterschool: Wilda Serrano MD [phone] Type 2 diabetes mellitus wit h hemoglobin [...] mRNA, LNP-s, No Pre serve, 2-Dose Series ([employer]) 09/13/2021,01/05/2021,12/15/2020 Covid-19, Mrna, Lnp-s, Pf, B ivalent, 30 Mcg, IM, 12 yrs and above ([employer]) 09/29/2022 H1N1 2009 Influenza, IM 10/08/2009 Pneumococcal [...] Description 05/08/2023 Cardiac Studies Cardiology [place] [facility] [address] [place] [address] 05/09/2023 Telemedicine Infectious Disease Marin Pena MD [address], [place] [phone] 05/10/2023 Office Visit Hematology Oncology Agustín Sullivna MD [address] [facility] [address] 05/11/2023 Laboratory Laboratory [place], [facility] [address] [place] [address] 05/15/2023 Anticoagulation Pharmacy Pharmacist, [facility] [address] [place] [address] 05/15/2023 Office Visit Family Medicine Yaya Frederick MD [address] [place] [address] 05/22/2023 Office Visit Cardiology Bucky Calvo PA-C [address] [place] [address] 06/23/2023 Office Visit Otolaryngology Keely Tanner PA-C [address] [place] [address] Health Maintenance Due Date Last Done Comments Zoster Vaccines (1 of 2) 1954 *BISPHONATE OR OTHER ACCEPTABLE MEDICATION NEEDED FOR OSTEOPOROSIS (REFER TO SMARTSET #1146) 10/24/2021 Albumin/Creatinine Ratio 07/04/2023 022, 12/02/2010, 09/24/2009, Additional history exists CKD PHOS USE SMARTSET 52681 11/04/2023 11/04/2022, 0 02/14/2019 Depression Screening, Annual for Pts 12 and Over 02/09/2024 02/08/2023 CKD HGB USE SMARTSET 43802 03/22/202403/22, 03/22/2023, 02/23/2023, Additional history exists DXA Scan 11/09/2024 11/09/2022, 01/21, 11/03/2015, Additional history exists DTaP,Tdap,and Td Vaccines (3 - Td or Tdap) 06/04/2029 06/04/2019, 01/28/2019, 05/26/2008 Pneumococcal Vaccine: 65+ Years Completed 05/24/2016, 11/14/2001 Influenza Vaccine (FLU shot) Completed 09/2022, 07/19/2021, 07/19/2021, Additional history exists COVID-19 Vaccine Completed 09/29/2022, , 01/05/2021, Additional history exists VITAMIN D LEVEL ONCE IN A LIFETIME-USE SMARTSET# [id number] Completed 11/04/2022, 02/14/2019, 06/28/2011, Additional history exists [...] documented as of this encounter Care Teams Wildlife Biostation Research Ecologist Relationship Specialty Start Date End Date Yaya Frederick MD [address] [place], [place] [address] [address] PCP - General Family Medicine 05/04/21 documented as of this encounter
--- OUTSIDE RECORDS SUMMARY | 2023-09-12 22:36 | External Medical Summary | Summary of Care ---
Author Name Unknown Organization [facility] Address [address] [facility] [place] [address] Phone [phone] Care Team Providers Care Environmental Engineering Intern Name Role Phone Yaya Frdeerick MD Primary Care Provider [phone] Reason for Visit * Reason Comments Dosage Adjustment In Person (Anticoag Cl inic) Encounter Details Date Type Department Care Team Description 04/06/2023 Anticoagulation Pharmacy [address] [address] Pharmacist1, [facility] [address] [address] S/P aortic valve replacement* Allergies Active Allergy [...] as of this encounter (statuses as of 04/06/2023) Medications Medication Sig Dispensed Refills Start Date [...] SolutionIndications:P ost-nasal discharge Administer into nostril 1 [place] in the morning AND 1 [place] before bedtime. 30 mL 0 11/30/2021 Active Fexofenadine HCl 180 MG Oral Tablet (Lizzette) Take by mouth 1 Tablet daily as needed for Allergies. 90 Tablet 0 01/21/2022 Active Ipratropium [place] 0.03 % Nasal Solution Administer into each [...] as of this encounter (statuses as of 04/06/2023) Active Problems Problem Noted Date Chronic hypoxemic [...] as of this encounter (statuses as of 04/06/2023) Resolved Problems Problem Noted Date Resolved Date [...] Stent Restenosis in Drug-Eluting Stents Project # [id number] Special Events Planner: Wilda Serrano MD [phone] GENOMICS CARDIO RESEARCH OTHER*[id number] 200611/29/2016 Overview: Renamed Per Clinical Trials Billing Project. 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 # [id number] Special Events Planner: Wilda Serrano MD [phone] Type 2 diabetes mellitus wit h hemoglobin A1c goal of less than 7.0% 11/03/2006 08/15/2007 Overview: ICD-10 update of inactive term PURE HYPERCHOLESTEROLEM 11/03/2006 10/01/20 09 Overview: Per Lipid Taxonomy. 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/2008 alf current use of anticoagulant therapy 0 05/05/2006 01/23/2009 Overview: ICD-10 update of inactive term Anticoagulation management encounter 05/05/2006 10/03/2019 Unspecified viral infection, in conditions classified elsewhere and of unspecified site 06/08/2005 09/25/2007 Menopause 12/19/2001 12/27/2017 FEM STRESS INCONTINENCE 05/10/2001 12/04/19 02 documented as of this encounter (statuses as of 04/06/2023) Immunizations Name Administration Dates Next Due COVID-19 mRNA, LNP-s, No Pre serve, 2-Dose Series ([employer]) 09/13/2021,01/05/2021,12/15/2020 Covid-19, Mrna, Lnp-s, Pf, B ivalent, [...] Influenza, Split, I IV3, With Preserve, Inj 07/07/2014,07/22/2013,07/03/2012,09/2 ,07/21/2010,09/12/2009,08/04/20 08,07/23/2007,08/02/2006,08/23/2005,1 ,10/01/2001 Seasonal Influenza, Trivalen t, Adjuvanted, [...] Progress Notes * Wilda Plata RPh - 04/06/2023 11:47 AM EDT Medication Therapy Disease Management - Anticoagulation Patient: Shannon Cruz : 1935 Current Warfarin Dose As of 04/06/2023 Patient-Reported Symptoms: Patient Findings Positives: Change in health (Pt notes still feeling like she has UTI, notes that she is reaching out to urology about this), Change in medications (Notes that she was on Amoxicillin "high dose" twicedaily for 10 extra days from urology. no concerns with this) Negatives: Signs/symptoms of thrombosis, Signs/symptoms of bleeding, Change in alcohol use, Change in activity, Upcoming invasive procedure, Missed doses, Extra doses, Change in diet/appetite, Bruising INR Result As of 04/06/2023 INR goal: 2.0-3.0 INR used for dosin.0 (04/06/2023) Warfarin Plan As of 04/06/2023 Full warfarin instructions: 0 mg every Wed; 1.25 mg all other days No change documented: Wilda Plata RPh Next INR check: 05/11/2023 Additional Dosing Information: Description Sent orders to [facility] at Fax#: [phone] Please call results to [facility] at Or Fax to [phone] Repeat PT/INR in 5 week(s) Weekly dose: not changed Wilda Plata RPh Clinical Pharmacist 04/06/2023, 11:47 AM documented in this encounter Plan of Treatment Upcoming Encounters Date Type Specialty Care Team Description 04/07/2023 [facility] [address] [place] [address] 05/10/2023 Office Visit Hematology Oncology Agustín Sullivan MD [address] [place] [address] 05/11/2023 Laboratory [facility] [place], [facility] [address] [place] [address] 05/15/2023 Anticoagulation Pharmacy Pharmacist, [facility] [address] [place] [address] 05/15/2023 Office Visit Family Medicine Yaya Frederick MD [address] [place], [place] [phone] 05/22/2023 Office Visit Cardiology Bucky Calvo PA-C [address] [place] [address] 06/23/2023 Office Visit Otolaryngology Keely Tanner PA-C [address] [place] [address] Health Maintenance Due Date Last Done Comments Zoster Vaccines (1 of 2) 1954 *BISPHONATE OR OTHER ACCEPTABLE MEDICATION NEEDED FOR OSTEOPOROSIS (REFER TO SMARTSET #1146) 10/24/2021 Albumin/Creatinine Ratio 07/04/2023 022, 12/02/2010, 09/24/2009, Additional history exists CKD PHOS USE SMARTSET 54475 11/04/2023 11/04/2022, 0 02/14/2019 Depression Screening, Annual for Pts 12 and Over 02/09/2024 02/08/2023 CKD HGB USE SMARTSET 46129 03/22/202403/22, 03/22/2023, 02/23/2023, Additional history exists DXA Scan 11/09/2024 11/09/2022, 01/21, 11/03/2015, Additional history exists DTaP,Tdap,and Td Vaccines (3 - Td or Tdap) 06/04/2029 06/04/2019, 01/28/2019, 05/26/2008 Pneumococcal Vaccine: 65+ Years Completed 05/24/2016, 11/14/2001 Influenza Vaccine (FLU shot) Completed 09/2022, 07/19/2021, 07/19/2021, Additional history exists COVID-19 Vaccine Completed 09/29/2022, , 01/05/2021, Additional history exists VITAMIN D LEVEL ONCE IN A LIFETIME-USE SMARTSET# 30405 Completed 11/04/2022, 02/14/2019, 06/28/2011, Additional history exists [...] Comments INR FINGERSTICK, POINT OF CARE STAT 04/06/2023 11:52 AM EDT S/P aortic valve replacement documented in this encounter Results * INR FINGERSTICK, POINT OF CARE (04/06/2023 11:52 AM EDT) Fingerstick INR 2.0 INR 12:04 PM EDT LABORATORY [facility] 60-86 Blood 04/06/2023 11:5 2 AM EDT 04/06/2023 12:04 PM EDT Narrative [facility] [place] 60-86 - 04/06/2023 12:04 PM EDT Therapeutic ranges for non-operative patients: Prophylaxsis/treatment of DVT: (Range:2.0-3.0) Treatment of pulmonary embolism:(Range:2.0-3.0) Prevention of systemic embolism from: -tissue heart valves -acute myocardial infarction -valvular heart disease -atrial fibrillation (Range: 2.0-3.0) Mechanical prosthetic valves: (Range: 2.5-3.5) Raquel Alcantara [facility] LAB POINT OF [place] RE TEST DOCKED DEVICE UNSOLICITED RESULTS [facility] 60-[address] [place] [address] documented in this encounter Visit Diagnoses Diagnosis S/P aortic valve replacement- Primary Heart valve replaced by other means documented in this encounter Additional Health Concerns Infection Onset Date Last Indicated Resolved Time Varicella zoster 08/01/2022 08/01/2022 ESBL 01/26/2023 03/10/2023 documented as of this encounter Care Teams Environmental Engineering Intern Relationship Specialty Start Date End Date Yaya Frederick MD [address] [place] [address] PCP - General Family Medicine 05/04/21 documented as of this encounter
--- OUTSIDE RECORDS SUMMARY | 2023-09-12 22:36 | External Medical Summary | Summary of Care ---
Author Name Unknown Organization [facility] Address [address] [facility] [address] Phone [phone] Care Team Providers Care Director Of Business Applications Name Role Phone Yaya Ferderick MD Primary Care Provider [phone] Reason for Visit * Reason Comments Outpatient Testing Encounter Details Date Type Department Care Team Description 04/14/2023 Laboratory [facility], [address] [address] [address] Essential thrombocythemia (HCC); UTI (urinary tract infection); [...] SolutionIndications:P ost-nasal discharge Administer into nostril 1 [place] in the morning AND 1 [place] before bedtime. 30 mL 0 11/30/2021 Active Fexofenadine HCl 180 MG Oral Tablet (Lizzette) Take by mouth 1 Tablet daily as needed for Allergies. 90 Tablet 0 01/21/2022 Active Ipratropium [place] 0.03 % Nasal Solution Administer into [...] situ 04/17/2014 Sinus node dysfunction 04/17/2014 manager terminal current use of anticoagulant t herapy [...] Stent Restenosis in Drug-Eluting Stents Project # [id number] Water Valve Mechanic: Wilda Serrano MD [phone] GENOMICS CARDIO RESEARCH OTHER*[id number] 200611/29/2016 Overview: Renamed Per Clinical Trials Billing Project. 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 # [id number] Water Valve Mechanic: Wilda Serrano MD [phone] Type 2 diabetes mellitus wit h hemoglobin [...] mRNA, LNP-s, No Pre serve, 2-Dose Series ([employer]) 09/13/2021,01/05/2021,12/15/2020 Covid-19, Mrna, Lnp-s, Pf, B ivalent, [...] Visit Cardiology Bucky Calvo PA-C [address] [place] [address] 05/08/2023 Cardiac Studies Cardiology [place] [facility] [address] [place] [address] 05/09/2023 Telemedicine Infectious Disease Marin Pena MD [address] [place] [address] 05/10/2023 Office Visit Hematology Oncology Agustín Sullivan MD [address] [place] [address] 05/11/2023 Laboratory Laboratory [place], Lab Lock [address] [place] [address] 05/15/2023 [facility]ly [facility] Pharmacist2, [facility] [place] [address] [place] [address] 05/15/2023 Office Visit Family Medicine Yaya Frederick MD [address] [place] [address] 05/22/2023 Office Visit Cardiology Bucky Calvo PA-C [address] [place] [address] 06/23/2023 Office Visit Otolaryngology Keely Tanner PA-C [address] [place] [address] Pending Results Name Type Priority Associated Diagnoses [...] AM EDT CBC Lab STAT Essential thrombocythemia ([facility]) 04/14/2023 11:37 AM EDT DIFFERENTIAL, AUTOMATED Lab STAT Essential thrombocythemia ([facility]) 04/14/2023 11:37 AM EDT Health Maintenance Due Date Last Done Comments Zoster Vaccines (1 of 2) 1954 *BISPHONATE OR OTHER ACCEPTABLE MEDICATION NEEDED FOR OSTEOPOROSIS (REFER TO SMARTSET #1146) 10/24/2021 Albumin/Creatinine Ratio 07/04/20232 022, 12/02/2010, 09/24/2009, Additional history exists CKD PHOS USE SMARTSET 76672 11/04/2023 11/04/2022, 0 02/14/2019 Depression Screening, Annual for Pts 12 and Over 02/09/2024 02/08/2023 CKD HGB USE SMARTSET 45300 03/22/202403/22, 03/22/2023, 02/23/2023, Additional history exists DXA Scan 11/09/2024 11/09/2022, 01/21, 11/03/2015, Additional history exists DTaP,Tdap,and Td Vaccines (3 - Td or Tdap) 06/04/2029 06/04/2019, 01/28/2019, 05/26/2008 Pneumococcal Vaccine: 65+ Years Completed 05/24/2016, 11/14/2001 Influenza Vaccine (FLU shot) Completed 09/2022, 07/19/2021, 07/19/2021, Additional history exists COVID-19 Vaccine Completed 09/29/2022, , 01/05/2021, Additional history exists VITAMIN D LEVEL ONCE IN A LIFETIME-USE SMARTSET# 00029 Completed 11/04/2022, 02/14/2019, 06/28/2011, Additional history exists [...] as of this encounter Care Teams Director Of Business Applications Relationship Specialty Start Date End Date Yaya Frederick MD [address] [place] [address] PCP - General Family Medicine 05/04/21 documented as of this encounter
--- OUTSIDE RECORDS SUMMARY | 2023-09-12 22:37 | External Medical Summary | Summary of Care ---
Author Name Unknown Organization [facility] Address [address] [facility] [address] Phone [phone] Care Team Providers Care Pharmaceutical Physician Name Role Phone Yaya Frederick MD Primary Care Provider [phone] Reason for Visit * Reason Comments Outpatient Testing Encounter Details Date Type Department Care Team Description 03/22/2023 [facility] [address] [address] S/P aortic valve replacement; Essential thrombocythemia (HCC); UTI due to extended-spectrum beta lactamase (ESBL) producing Escherichia coli; CHR ISCHEMIC HRT DIS NOS Allergies Active [...] as of this encounter (statuses as of 03/22/2023) Medications Medication Sig Dispensed Refills Start Date [...] SolutionIndications:P ost-nasal discharge Administer into nostril 1 [place] in the morning AND 1 [place] before bedtime. 30 mL 0 11/30/2021 Active Fexofenadine HCl 180 MG Oral Tablet (Lizzette) Take by mouth 1 Tablet daily as needed for Allergies. 90 Tablet 0 01/21/2022 Active Ipratropium [place] 0.03 % Nasal Solution Administer into each nostril 2 Sprays 2 times a day as needed for Rhinitis. 30 mL 5 02/23/2022 Active Nitrofurantoin Macrocrystal 100 MG Oral Capsule (Macrodantin) Take by mouth 1 Capsule before bedtime. with food.. 90 Capsule 3 06/10/2022 Active Additional Information Patient not taking.Reported on 02/24/2023 Warfarin Sodium 2.5 MG Oral TabletIndications:Chr onic ischemic heart disease Up to one tablet daily as directed by the Anticoag clinic 100 Tablet 3 08/09/2022 Active Pantoprazole Sodium 40 MG Oral Tablet Delayed Release (Protonix)Indications :Esophagitis Take 1 Tablet (40 mg) by mouth in the morning. 90 Tablet 1 09/18/2022 Active Mometasone Furoate 50 MCG/ACT Nasal SuspensionIndications [...] at bedtime. 30 Tablet 5 01/23/2023 Active Spironolactone 25 MG Oral Tablet (Aldactone)Indication [...] with urination 30 Tablet 0 03/21/2023 Active Torsemide 20 MG Oral Tablet (Demadex)Indications: Chronic ischemic heart disease Take 2 Tablets by mouth in the morning. 1 additional tablet mid day as needed for increase weight. 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 # [id number] Center Manager: Wilda Serrano MD [phone] Type 2 diabetes mellitus wit h hemoglobin A1c goal of less than 7.0% 11/03/2006 08/15/2007 Overview: ICD-10 update of inactive term PURE HYPERCHOLESTEROLEM 11/03/2006 10/01/20 09 Overview: Per Lipid Taxonomy. 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/2008 longterm current use of anticoagulant therapy 0 05/05/2006 01/23/2009 Overview: ICD-10 update of inactive term Anticoagulation management encounter 05/05/2006 10/03/2019 Unspecified viral infection, in conditions classified elsewhere and of unspecified site 06/08/2005 09/25/2007 Menopause 12/19/2001 12/27/2017 FEM STRESS INCONTINENCE 05/10/2001 12/04/19 02 documented as of this encounter (statuses as of 03/22/2023) Immunizations Name Administration Dates Next Due COVID-19 mRNA, LNP-s, No Pre serve, 2-Dose Series ([employer]) 09/13/2021,01/05/2021,12/15/2020 Covid-19, Mrna, Lnp-s, Pf, B ivalent, [...] Encounters Date Type Specialty Care Team Description 03/24/2023 Office Visit Infectious Disease Marin Pena MD [address] [place] [address] 04/06/2023 Anticoagulation Pharmacy Pharmacist1, [facility] [address] [address] 04/07/2023 Cardiac Studies Cardiology [facility] [address] [place] [address] 05/10/2023 Office Visit Hematology Oncology Agustín Sullivan MD [address] [place] [address] 05/11/2023 Laboratory [facility] [address] [place] [address] 05/15/2023 Office Visit Family Medicine Yaya Frederick MD [address] [place] [address] 05/22/2023 Office Visit Cardiology Bucky Calvo PA-C [address] [place] [address] 06/23/2023 Office Visit Otolaryngology Keely Tanner PA-C [address] [place] [address] Pending Results Name Type Priority Associated Diagnoses Date /Time PT INR Lab Routine S/P aortic valve replacement 03/22/2023 9:04 AM EDT CBC WITH WBC DIFFERENTIAL Lab STAT Essential thrombocythemia (HCC) 03/22/2023 9:04 AM EDT COMPREHENSIVE METABOLIC PANEL Lab Routine UTI due to extended-spectrum beta lactamase (ESBL) producing Escherichia coli 03/22/2023 9:04 AM EDT BNP, NT-PRO Lab Routine CHR ISCHEMIC HRT DIS NOS 03/22/2023 9:04 AM EDT CBC Lab STAT Essential thrombocythemia (HCC) 03/22/2023 9:04 AM EDT DIFFERENTIAL, AUTOMATED Lab STAT Essential thrombocythemia (HCC) 03/22/2023 9:04 AM EDT Health Maintenance Due Date Last Done Comments Zoster Vaccines (1 of 2) 1954 *BISPHONATE OR OTHER ACCEPTABLE MEDICATION NEEDED FOR OSTEOPOROSIS (REFER TO SMARTSET #1146) 10/24/2021 Albumin/Creatinine Ratio 07/04/20232 022, 12/02/2010, 09/24/2009, Additional history exists CKD PHOS USE SMARTSET 14579 11/04/2023 11/04/2022, 0 02/14/2019 Depression Screening, Annual for Pts 12 and Over 02/09/2024 02/08/2023 CKD HGB USE SMARTSET 46450 02/24/202402/23, 02/23/2023, 11/04/2022, Additional history exists DXA Scan 11/09/2024 11/09/2022, 01/21, 11/03/2015, Additional history exists DTaP,Tdap,and Td Vaccines (3 - Td or Tdap) 06/04/2029 06/04/2019, 01/28/2019, 05/26/2008 Pneumococcal Vaccine: 65+ Years Completed 05/24/2016, 11/14/2001 Influenza Vaccine (FLU shot) Completed 09/2022, 07/19/2021, 07/19/2021, Additional history exists COVID-19 Vaccine Completed 09/29/2022, , 01/05/2021, Additional history exists VITAMIN D LEVEL ONCE IN A LIFETIME-USE SMARTSET# 31805 Completed 11/04/2022, 02/14/2019, 06/28/2011, Additional history exists [...] other means Essential thrombocythemia (HCC) Essential thrombocythemia UTI due to extended-spectrum beta lactamase (ESBL) producing Escherichia coli CHR ISCHEMIC HRT DIS NOS Chronic ischemic heart disease, unspecified documented in this encounter Additional Health Concerns Infection Onset Date Last Indicated Resolved Time Varicella zoster 08/01/2022 08/01/2022 ESBL 01/26/2023 03/10/2023 documented as of this encounter Care Teams Pharmaceutical Physician Relationship Specialty Start Date End Date Yaya Frederick MD [address] [place] [address] PCP - General Family Medicine 05/04/21 documented as of this encounter
--- OUTSIDE RECORDS SUMMARY | 2023-09-12 22:37 | External Medical Summary | Summary of Care ---
Author Name Unknown Organization [facility] Address [address] [facility] [place] [address] Phone [phone] Care Team Providers Care Stoker Installation Mechanic Name Role Phone Yaya Frederick MD Primary Care Provider Reason for Visit * Reason Comments Dosage Adjustment In Person (Anticoag Cl inic) Encounter Details Date Type Department Care Team Description 04/06/2023 Anticoagulation Pharmacy [address] [address] Pharmacist1, [facility] [address] [address] S/P aortic valve replacement* Allergies Active Allergy [...] SolutionIndications:P ost-nasal discharge Administer into nostril 1 [place] in the morning AND 1 [place] before bedtime. 30 mL 0 11/30/2021 Active Fexofenadine HCl 180 MG Oral Tablet (Lizzette) Take by mouth 1 Tablet daily as needed for Allergies. 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 # [id number] Brick Extruder Operator: Wilda Serrano MD [phone] Type 2 diabetes mellitus wit h hemoglobin [...] As of 04/06/2023 Patient-Reported Symptoms: Patient Findings Negatives: Signs/symptoms of thrombosis, Signs/symptoms of bleeding, Change in health, Change in alcohol use, Change in activity, Upcoming invasive procedure, Missed doses, Extra doses, Change in medications, Change in diet/appetite, Bruising INR Result As of 04/06/2023 INR goal: 2.0-3.0 INR used for dosin.0 (04/06/2023) Warfarin Plan As of 04/06/2023 Full warfarin instructions: 0 mg every Wed; 1.25 mg all other days No change documented: Wilda Plata RPh Next INR check: 05/11/2023 Additional Dosing Information: Description Sent orders to [facility] at Fax#: [phone] Please call results to [facility] at Or Fax to [phone] Repeat PT/INR in 5 week(s) Weekly dose: not changed Wilda Plata RPh Clinical Pharmacist 04/06/2023, 11:47 AM documented in this encounter Plan of Treatment Upcoming Encounters Date Type Specialty Care Team Description 04/07/2023 Cardiac Studies Cardiology [place] Carlson [facility] [address] [place] [address] 05/10/2023 Office Visit Hematology Oncology Agustín Sullivan MD [address] [place] [address] 05/11/2023 Laboratory Laboratory [place], Lab Lock [address] [place] [address] 05/15/2023 Anticoagulation Pharmacy Pharmacist, [facility] [address] [place] [address] 05/15/2023 Office Visit Family Medicine Yaya Frederick MD [address] [place] [address] 05/22/2023 Office Visit Cardiology Bucky Calvo PA-C [address] [place] [address] 06/23/2023 Office Visit Otolaryngology Keely Tanner PA-C [address] [place] [address] Health Maintenance Due Date Last Done Comments Zoster Vaccines (1 of 2) 1954 *BISPHONATE OR OTHER ACCEPTABLE MEDICATION NEEDED FOR OSTEOPOROSIS (REFER TO SMARTSET #1146) 10/24/2021 Albumin/Creatinine Ratio 07/04/2023 022, 12/02/2010, 09/24/2009, Additional history exists CKD PHOS USE SMARTSET 89159 11/04/2023 11/04/2022, 0 02/14/2019 Depression Screening, Annual for Pts 12 and Over 02/09/2024 02/08/2023 CKD HGB USE SMARTSET 51882 03/22/202403/22, 03/22/2023, 02/23/2023, Additional history exists DXA Scan 11/09/2024 11/09/2022, 01/21, 11/03/2015, Additional history exists DTaP,Tdap,and Td Vaccines (3 - Td or Tdap) 06/04/2029 06/04/2019, 01/28/2019, 05/26/2008 Pneumococcal Vaccine: 65+ Years Completed 05/24/2016, 11/14/2001 Influenza Vaccine (FLU shot) Completed 09/2022, 07/19/2021, 07/19/2021, Additional history exists COVID-19 Vaccine Completed 09/29/2022, , 01/05/2021, Additional history exists VITAMIN D LEVEL ONCE IN A LIFETIME-USE SMARTSET# 83387 Completed 11/04/2022, 02/14/2019, 06/28/2011, Additional history exists [...] INR 2.0 INR 12:04 PM EDT LAB[facility]ATORY [facility] 60-86 Blood 04/06/2023 11:5 2 AM EDT 04/06/2023 12:04 PM EDT Narrative LAB[facility]ORY [facility] 60-86 - 04/06/2023 12:04 PM EDT Therapeutic ranges for non-operative patients: Prophylaxsis/treatment of DVT: (Range:2.0-3.0) Treatment of pulmonary embolism:(Range:2.0-3.0) Prevention of systemic embolism from: -tissue heart valves -acute myocardial infarction -valvular heart disease -atrial fibrillation (Range: 2.0-3.0) Mechanical prosthetic valves: (Range: 2.5-3.5) Raquel Alcantara [facility] LAB POINT OF [place] RE TEST DOCKED DEVICE UNSOLICITED RESULTS [facility] 60-86 [address] [facility] [place] [address] documented in this encounter Visit Diagnoses Diagnosis S/P aortic valve replacement- Primary Heart valve replaced by other means documented in this encounter Additional Health Concerns Infection Onset Date Last Indicated Resolved Time Varicella zoster 08/01/2022 08/01/2022 ESBL 01/26/2023 03/10/2023 documented as of this encounter Care Teams Stoker Installation Mechanic Relationship Specialty Start Date End Date Yaya Frederick MD [address] [facility] [place] [address] PCP - General Family Medicine 05/04/21 documented as of this encounter
--- OUTSIDE RECORDS SUMMARY | 2023-09-12 22:37 | External Medical Summary | Summary of Care ---
Author Name Unknown Organization [facility] Address [address] [facility] [place] [address] Phone [phone] Care Team Providers Care Audiologist Name Role Phone Yaya Frederick MD Primary Care Provider [phone] Reason for Visit * Reason Onset Date Comments Advice 03/10/2023 Encounter Details Date Type Department Care Team Description 03/10/2023 Telephone [facility] [address] [place] [address] Yaya Frederick MD [address] [place] [address] Advice Allergies Active Allergy Reactions Severity [...] as of this encounter (statuses as of 03/23/2023) Medications Medication Sig Dispensed Refills Start Date [...] SolutionIndications:P ost-nasal discharge Administer into nostril 1 [place] in the morning AND 1 [place] before bedtime. 30 mL 0 11/30/2021 Active Fexofenadine HCl 180 MG Oral Tablet (Lizzette) Take by mouth 1 Tablet daily as needed for Allergies. 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 # [id number] Assistant Dean Of Students: Wilda Serrano MD [phone] Type 2 diabetes mellitus wit h hemoglobin A1c goal of less than 7.0% 11/03/2006 08/15/2007 Overview: ICD-10 update of inactive term PURE HYPERCHOLESTEROLEM 11/03/2006 10/01/20 09 Overview: Per Lipid Taxonomy. 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/2008 jail current use of anticoagulant therapy 0 05/05/2006 01/23/2009 Overview: ICD-10 update of inactive term Anticoagulation management encounter 05/05/2006 10/03/2019 Unspecified viral infection, in conditions classified elsewhere and of unspecified site 06/08/2005 09/25/2007 Menopause 12/19/2001 12/27/2017 FEM STRESS INCONTINENCE 05/10/2001 12/04/19 02 documented as of this encounter (statuses as of 03/23/2023) Immunizations Name Administration Dates Next Due COVID-19 mRNA, LNP-s, No Pre serve, 2-Dose Series ([employer]) 09/13/2021,01/05/2021,12/15/2020 Covid-19, Mrna, Lnp-s, Pf, B ivalent, 30 Mcg, IM, 12 yrs and above ([employer]) 09/29/2022 H1N1 2009 Influenza, IM 10/08/2009 Pneumococcal [...] encounter Miscellaneous Notes * Telephone Encounter - Caden Kunz LPN - 03/10/2023 8:57 AM EDT ----- Message from Elsy Aceves MD sent at 03/09/2023 10:39 PM EDT ----- Please put patient on schedule for acute for 03/10/23, see me if needed documented in this encounter Plan of Treatment Upcoming Encounters Date Type Specialty Care Team Description 03/24/2023 Telemedicine Infectious Disease Marin Pena MD [address] [place], [place] [id number] 04/06/2023 Anticoagulation Pharmacy Pharmacist1, [facility] [address] [place] [address] 04/07/2023 [facility] [address] [place] [address] 05/10/2023 Office Visit Hematology Oncology Agustín Sullivan MD [address] [place] [address] 05/11/2023 Laboratory Laboratory [facility] [address] [place] [address] 05/15/2023 Office Visit Family Medicine Yaya Frederick MD [address] [place] [address] 05/22/2023 Office Visit Cardiology Bucky Calvo PA-C [address] [place] [address] 06/23/2023 Office Visit Otolaryngology Keely Tanner PA-C [address] [place] [address] Health Maintenance Due Date Last Done Comments Zoster Vaccines (1 of 2) 1954 *BISPHONATE OR OTHER ACCEPTABLE MEDICATION NEEDED FOR OSTEOPOROSIS (REFER TO SMARTSET #1146) 10/24/2021 Albumin/Creatinine Ratio 07/04/2023 022, 12/02/2010, 09/24/2009, Additional history exists CKD PHOS USE SMARTSET 16410 11/04/2023 11/04/2022, 0 02/14/2019 Depression Screening, Annual for Pts 12 and Over 02/09/2024 02/08/2023 CKD HGB USE SMARTSET 92654 03/22/202403/22, 03/22/2023, 02/23/2023, Additional history exists DXA Scan 11/09/2024 11/09/2022, 01/21, 11/03/2015, Additional history exists DTaP,Tdap,and Td Vaccines (3 - Td or Tdap) 06/04/2029 06/04/2019, 01/28/2019, 05/26/2008 Pneumococcal Vaccine: 65+ Years Completed 05/24/2016, 11/14/2001 Influenza Vaccine (FLU shot) Completed 09/2022, 07/19/2021, 07/19/2021, Additional history exists COVID-19 Vaccine Completed 09/29/2022, , 01/05/2021, Additional history exists VITAMIN D LEVEL ONCE IN A LIFETIME-USE SMARTSET# 31220 Completed 11/04/2022, 02/14/2019, 06/28/2011, Additional history exists [...] documented as of this encounter Care Teams Audiologist Relationship Specialty Start Date End Date Yaya Frederick MD [address] [place] [address] PCP - General Family Medicine 05/04/21 documented as of this encounter
--- OUTSIDE RECORDS SUMMARY | 2023-09-12 22:37 | External Medical Summary | Summary of Care ---
Author Name Unknown Organization [facility] Address [address] [place] [address] Phone [phone] Care Team Providers Care Sat Instructor Name Role Phone Yaya Frederick MD Primary Care Provider [phone] Reason for Visit * Reason Comments NEW PATIENT Urinary Tract Infection Symptoms * Evaluate & Treat - Unlimited Visits (Within 3 days (urgent)) - Authorized Specialty Diagnoses / Procedures Referred By Contac t Referred To Contact Infectious Diseases / Infectious Disease Diagnoses UTI due to extended-spectrum beta lactamase (ESBL) producing Escherichia coli Elys Aceves MD [address] [place] [address] Referral ID Status Reason Start Date Expiration Date Visits Requested Visits Authorized [id number] Authorized Specialty Services Required 03/21/[phone] Encounter Details Date Type Department Care Team Description 03/24/2023 Telemedicine Infectious Disease [address] [address] Marin Pena MD [address] [place] [address] Recurrent UTI* Allergies Active Allergy Reactions Severity Noted Date [...] as of this encounter (statuses as of 03/24/2023) Medications Medication Sig Dispensed Refills Start Date End Date Status ASPIRIN 81 MG PO CHEW take one tablet daily 34 11 07/11/2007 Active BENADRYL 25 MG PO TABS 1 TABLET EVERY 4 TO 6 HOURS NEEDED 0 Active CALTRATE 600+D 600-400 MG-UNIT PO TABS one tablet twice daily 0 06/17/2009 Active MAG-OXIDE 400 MG PO TABSIndications:Deodorizer Operator jayda ischemic heart disease one tablet [...] SolutionIndications: Post-nasal discharge Administer into nostril 1 [place] in the morning AND 1 [place] before bedtime. 30 mL 0 11/30/2021 Active Fexofenadine HCl 180 MG Oral Tablet (Lizzette) Take by mouth 1 Tablet daily as needed for Allergies. 90 Tablet 0 01/21/2022 Active Ipratropium [place] 0.03 % Nasal Solution Administer into each nostril 2 Sprays 2 times a day as needed for Rhinitis. 30 mL 5 02/23/2022 Active Warfarin Sodium 2.5 MG Oral TabletIndications:Ch ronic ischemic heart disease Up to one tablet daily as directed by the Antico clinic 100 Tablet 3 08/09/2022 Active Pantoprazole Sodium 40 MG Oral Tablet Delayed Release (Protonix)Indication s:Esophagitis Take 1 Tablet (40 mg) by mouth in the morning. 90 Tablet 1 09/18/2022 Active Mometasone Furoate 50 MCG/ACT Nasal SuspensionIndication [...] on 03/24/2023 Spironolactone 25 MG Oral Tablet (Aldactone)Indicatio ns:Chronic ischemic heart disease,HTN, goal below 150/90,Old myocardial infarct Take 0.5 Tablets by mouth once a day on Monday, Monday, and Monday only. 40 Tablet 1 02/22/2023 Active Hydroxyurea 500 MG Oral Capsule (Hydrea)Indications: [...] on 03/24/2023 Torsemide 20 MG Oral Tablet (Demadex)Indications :Chronic ischemic heart disease Take 2 Tablets by mouth in the morning. 1 additional tablet mid day as needed for increase weight. 100 Tablet 2 03/21/2023 Active Estrogens Conjugated 0.625 MG/GM Vaginal Cream (Premarin)Indication s:Recurrent UTI Administer 0.5 g into the vagina in the morning. 30 g 2 03/24/2023 Active Nitrofurantoin Macrocrystal 100 MG Oral Capsule (Macrodantin) Take by mouth 1 Capsule before bedtime. with food.. 90 Capsule 3 06/10/2022 03/24/20 Discontinu ed(Patient preference /discontin uation) documented as of this encounter (statuses as of 03/24/2023) Active Problems Problem Noted Date Chronic hypoxemic [...] as of this encounter (statuses as of 03/24/2023) Resolved Problems Problem Noted Date Resolved Date [...] Stent Restenosis in Drug-Eluting Stents Project # [id number] Manager Nuclear: Wilda Serrano MD [phone] GENOMICS CARDIO RESEARCH OTHER*[id number] 200611/29/2016 Overview: Renamed Per Clinical Trials Billing Project. 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 # [id number] Manager Nuclear: Wilda Serrano MD [phone] Type 2 diabetes mellitus wit h hemoglobin [...] as of this encounter (statuses as of 03/24/2023) Immunizations Name Administration Dates Next Due COVID-19 mRNA, LNP-s, No Pre serve, 2-Dose Series ([employer]) 09/13/2021,01/05/2021,12/15/2020 Covid-19, Mrna, Lnp-s, Pf, B ivalent, [...] as of this encounter Progress Notes * Marin Pena MD - 03/24/2023 10:05 AM EDT Infectious Diseases Ambulatory Telemedicine Consult Evaluation Patient location: HOME. I was in a hospital or clinic location. After connecting through televideo,patient was verified with two unique identifiers. Patient (or authorized legal passenger representative) was then informed that this was a Telemedicine visit and being conducted confidentially over secure lines. Methods to assure confidentiality were taken. Patient acknowledged consent and understanding of pr ivacy and security of the Telemedicine visit. The patient agreed to participate. Referring Physician: Elsy Aceves MD CC/Reason for Consult: Recurrent ESBL E coli UTI HPI: Ms. Cruz is seen today via telemedicine for recurrent/persistent ESBL E coli UTI. She is accompanied by her son who helps with the history. She has had recurrent/persistent UTI's for the past 2 years. She was hospitalized at [facility] in January for this and was on IV ertapenem x 5-7 days. This helped a great deal, but afterwards, the dysuria returned. She was given nitrofurantoin, but this didnot help. She was given Augmentin, and this did help. After completing that however, symptoms returned and she was given fosfomycin. This, too, did not help. She is now back on the Augmentin for a 10day course and so far this is working again. Her dysuria is resolved. She has no GI side effects from the Augmentin or rash. She has no fevers. She does note that she has some trouble emptying her bladder at times and she has a "prolapsed bowel" which makes it more difficult. ROS: Constitutional: (-) fever chills sweats or weight loss Eyes: (-) negative, no amaurosis fugax, pain, blurred vision, or redness ENT: (-) negative: no headaches, vertigo, hearing loss, sinus, ear, or throat problems Cardiovascular: (-) negative: no chest pain, dyspnea, syncope, or palpitations Pulmonary: (+) dyspnea with exertion and (+) uses chronic oxygen Abdominal/GI: (-) negative: no pain, heartburn, dysphagia, bleeding, change in bowel habits, nauseaor vomiting Female : (-) negative: no dysuria, pelvic pain, irregular menses, or vaginal discharge Musculoskeletal: (-) negative: no pain Hematology/oncology: (-) otherwise negative Skin: (-) negative: no rash or new or changing moles Neurology: (-) negative: no focal neurologic defect Past Medical History: Diagnosis Date Anticoagulation management [...] compatible patecmaker insertion intraoperative fluoroscopic guidance [facility]04/08/14 KNEE ARTHROSCOPY/ARTHROPLASTY 09/2010 dr salcedo LIGATE/CUT OVIDUCT(S) 1963 OTHER 12/27 RCA drug eluting stent REPLACEMENT AORTIC VALVE, BYPASS WITH PROSTHETIC VALVE 04/27 [place] [facility] AVR TOTAL ABD HYSTERECTOMY W/WO REMOVAL OF TUBE(S) 11/24 JADE/BSO Outpatient Medications Marked as Taking for the 03/24/23 encounter (Telemedicine) with Marin Pena MD Medication Sig Estrogens Conjugated 0.625 MG/GM Vaginal Cream (Premarin) Administer 0.5 g into the vagina in the morning. Amoxicillin-Pot Clavulanate 875-125 MG Oral Tablet 1 tablet twice daily with food for 10 days Torsemide 20 MG Oral Tablet (Demadex) Take 2 Tablets by mouth in the morning. 1 additional tablet mid day as needed for increase weight. Hydroxyurea 500 MG Oral Capsule (Hydrea) Take 1 capsule by mouth 5 days a week Spironolactone 25 MG Oral Tablet (Aldactone) Take 0.5 Tablets by mouth once a day on Monday, Monday, and Monday only. oxygen IN GAS Use as directed. 2L at bedtime Metoprolol Succinate ER 100 MG Oral Tablet Extended Release 24 Hour (toPROL XL) Take 1.5 Tablets (150 mg) by mouth in the morning and 1.5 Tablets (150 mg) before bedtime. Mometasone Furoate 50 MCG/ACT Nasal Suspension Administer 2 Sprays into each nostril in the morning. Rosuvastatin Calcium 10 MG Oral Tablet (Crestor) Take 1 Tablet (10 mg) by mouth in the morning. Pantoprazole Sodium 40 MG Oral Tablet Delayed Release (Protonix) Take 1 Tablet (40 mg) by mouthin the morning. Warfarin Sodium 2.5 MG Oral Tablet Up to one tablet daily as directed by the Anticoag clinic Ipratropium [place] 0.03 % Nasal Solution Administer into each nostril 2 Sprays 2 times a day as needed for Rhinitis. Fexofenadine HCl 180 MG Oral Tablet (Lizzette) Take by mouth 1 Tablet daily as needed for Allergies. Azelastine HCl 0.15 % Nasal Solution Administer into nostril 1 [place] in the morning AND 1 Spraybefore bedtime. LORazepam 0.5 MG Oral Tablet (Ativan) Take 1 Tab by mouth every 8 hours as needed for Anxiety. GRX ANALGESIC BALM EX OINT (andie mcallister) Apply topically to sore muscles as needed MAG-OXIDE 400 MG PO TABS one tablet twice a day (Patient taking differently: Take 1 Tablet by mouth in the morning.) CALTRATE 600+D 600-400 MG-UNIT PO TABS one tablet twice daily BENADRYL 25 MG PO TABS 1 TABLET EVERY 4 TO 6 HOURS NEEDED ASPIRIN 81 MG PO CHEW take one tablet daily Review of patient's allergies indicates: Allergen Reactions Amiodarone Edema face/lips/tongue, Edema Other and Rash legs Keflex [Cephalexin] Rash Unsure if this was a true reaction from Keflex Etodolac lodine; pruritis Penicillins Rash, burning and itching after 2nd dose in her 60's Sulfa Antibiotics Rash Tape [Adhesive Tape] Rash Zithromax [Azithromycin] Throat felt swollen. Denies any shortness of breath. Zocor [Simvastatin] Social History Socioeconomic History Marital status: Spouse [...] Not on file Social History [place] [facility] [facility] [place]FORMATION ENVIRONMENTAL HISTORY: Type of Home: Bilevel [...] on file Housing Stability: Not on file Family History Problem Relation Age of Onset Genitourinary Disorder Mother endometriosis; hysterectomy done Diabetes Mother Genitourinary Disorder Daughter endometriosis; hysterectomy done Diabetes Aunt (Unspecified) maternal Diabetes Uncle (Unspecified) maternal Cancer Father prostate Hypertension Father Allergies Father hayfever Heart attack Sister Stroke Sister No Known Problems Brother Heart disease Sister coronary stent Physical examination via telemed There were no vitals filed for this visit. Constitutional: no acute distress HEENT: normal: normocephalic, atraumatic; no masses, tenderness, or adenopathy Eyes: sclera and conjunctiva normal Neck: normal range of motion Chest: normal respiratory effort, (+)Oxygen BNC in place Skin: No rash : Neuro: alert, oriented to person, place, and time Laboratory review: Component Latest Ref Rng 03/22/2023 BUN 6 - 20 mg/dL 34 (H) Creatinine 0.5 - 1.0 mg/dL 1.3 (H) Estimated Glomerular Filtration Rate >=60 mL/min 39 (L) Sodium 135 - 146 mmol/L 146 Potassium 3.5 - 5.1 mmol/L 3.9 Chloride 98 - 107 mmol/L 99 CO2 22 - 32 mmol/L 34 (H) Anion Gap 7 - 15 mmol/L 13 Glucose 70 - 120 mg/dL 145 (H) Albumin 3.8 - 5.0 g/dL 4.3 AST 10 - 35 U/L 25 Alkaline Phosphatase 35 - 130 U/L 79 Bilirubin, Total <=1.2 mg/dL 0.7 Calcium 8.4 - 10.2 mg/dL 10.0 Protein 6.0 - 8.3 g/dL 7.2 ALT 10 - 35 U/L 16 WBC 4.00 - 10.80 K/uL 6.17 Neutrophils % 40.0 - 75.0 % 72.4 Lymphocytes % 18.0 - 42.0 % 11.5 (L) Monocytes % 1.0 - 11.0 % 10.4 Eosinophils % 0.0 - 6.0 % 4.5 Basophils % 0.0 - 2.0 % 1.0 Immature Granulocytes % 0.0 - 2.0 % 0.2 Absolute Neutrophils 1.80 - 7.70 K/uL 4.47 Absolute Lymphocytes 1.00 - 4.80 K/ul 0.71 (L) Absolute Monocytes 0.00 - 1.10 K/uL 0.64 Absolute Eosinophils 0.00 - 0.70 K/uL 0.28 Absolute Basophils 0.00 - 0.20 K/uL 0.06 Absolute Immature Granulocytes 0.00 - 0.20 K/uL 0.01 WBC 4.00 - 10.80 K/uL 6.17 RBC 3.85 - 5.15 M/uL 3.43 HGB 12.0 - 15.3 g/dL 11.6 (L) HCT 36.0 - 45.2 % 38.3 MCV 81.5 - 97.5 fL 111.7 MCH 27.0 - 34.0 pg 33.8 MCHC 32.0 - 36.0 g/dL 30.3 RDW 11.5 - 15.5 % 15.4 PLT 140 - 400 K/uL 308 MPV 6.6 - 11.1 fL 11.7 nRBCs <=0 /100 WBCs 0 (H) High (L) Low Impression: 1. Recurrent/persistent UTI cystitis with ESBL E coli 2. CKD 3. Rectocele Recommendations: 1. D/C nitrofurantoin-- patient's renal function precludes this from being effective 2. Avoid constipation--surgical repair of rectocele likely not an option given age and comorbidities 3. Maintain adequate hydration and regular bladder emptying 4. Topical vaginal estrogen cream to try and prevent infection 5. Complete current course of Augmentin--symptoms currently resolved despite intermediate sensitivity. Prolonged or further IV therapy at this time will not necessarily help. If and when symptoms return, will need retesting and retreatment as necessary Thank you for this consult referral. Please feel free to contact me anytime with questions. Marin Pena MD Department of Infectious Diseases documented in this encounter Nursing Notes * Maggie Rivers RN - 03/24/2023 8:37 AM EDT Chief Complaint Patient presents with NEW PATIENT Urinary Tract Infection Symptoms Pt states UTI's for 2 years, currently on Augmentin, have tried several antibiotics and can't get it cleared up. Son will be on the Video call with her Pt identified by name and date of . Verified pt not currently driving. Verified pt currently in the state of [place]. Chart updated with patient after review of social history and allergies. Med reconciliation completed. Pt verbalizes that they have received their telehealth link via email and planto utilize an electronic device/set up with video capability and has appropriate/updated software for video visit. Pt walked through the steps of connecting for video visit and verbalizes an understanding of how to enter the virtual waiting room. Offers no further questions and will await appointment time for provider connection. Will contact our office should they have any issues or questions inregards to their visit. documented in this encounter Plan of Treatment Upcoming Encounters Date Type Specialty Care Team Description 04/06/2023 Anticoagulation Pharmacy Pharmacist1, [facility] [address] [place] [address] 04/07/2023 Cardiac Studies Cardiology [facility] [address] [facility] [place] [address] 05/10/2023 Office Visit Hematology Oncology Agustín Sullivan MD [address] [place] [address] 05/11/2023 Laboratory Laboratory [facility] [address] [place] [address] 05/15/2023 Office Visit Family Medicine Yaya Frederick MD [address] [place] [address] 05/22/2023 Office Visit Cardiology [facility]ucky Cal[facility]C [address] [facility] [address] 06/23/2023 Office Visit Otolaryngology Keely Tanner PA-C [address] [place] [address] Health Maintenance Due Date Last Done Comments Zoster Vaccines (1 of 2) 1954 *BISPHONATE OR OTHER ACCEPTABLE MEDICATION NEEDED FOR OSTEOPOROSIS (REFER TO SMARTSET #1146) 10/24/2021 Albumin/Creatinine Ratio 07/04/2023 022, 12/02/2010, 09/24/2009, Additional history exists CKD PHOS USE SMARTSET 06502 11/04/2023 11/04/2022, 0 02/14/2019 Depression Screening, Annual for Pts 12 and Over 02/09/2024 02/08/2023 CKD HGB USE SMARTSET 68050 03/22/202403/22, 03/22/2023, 02/23/2023, Additional history exists DXA Scan 11/09/2024 11/09/2022, 01/21, 11/03/2015, Additional history exists DTaP,Tdap,and Td Vaccines (3 - Td or Tdap) 06/04/2029 06/04/2019, 01/28/2019, 05/26/2008 Pneumococcal Vaccine: 65+ Years Completed 05/24/2016, 11/14/2001 Influenza Vaccine (FLU shot) Completed 09/2022, 07/19/2021, 07/19/2021, Additional history exists COVID-19 Vaccine Completed 09/29/2022, , 01/05/2021, Additional history exists VITAMIN D LEVEL ONCE IN A LIFETIME-USE SMARTSET# 60703 Completed 11/04/2022, 02/14/2019, 06/28/2011, Additional history exists [...] as of this encounter Visit Diagnoses Diagnosis Recurrent UTI- Primary Urinary tract infection, site not specified documented in this encounter Additional Health Concerns Infection Onset Date Last Indicated Resolved Time Varicella zoster 08/01/2022 08/01/2022 ESBL 01/26/2023 03/10/2023 documented as of this encounter Care Teams Sat Instructor Relationship Specialty Start Date End Date Yaya Frederick MD [address] [place] [address] [place] [address] PCP - General Family Medicine 05/04/21 documented as of this encounter
--- OUTSIDE RECORDS SUMMARY | 2023-09-12 22:37 | External Medical Summary ---
Author Name Unknown Address Unknown Organization : Laboratory Report Ordering Provider Test Date Status MISTITAYLORANDREBARI 04/06/2023 11:52:50 Final Therapeutic ranges for non-o perative patients:
Prophylaxsis/treatment of DVT: (Range:2.0-3.0)
Treatment of pulmonary embolism:(Range:2.0-3.0)
Prevention of systemic embolism from:
-tissue heart valves
-acute myocardial infarction
-valvular heart disease
-atrial fibrillation
(Range: 2.0-3.0)
Mechanical prosthetic valves: (Range: 2.5-3.5) Observation Date Value Abnormality Reference (Units ) Status INR in Capillary blood by Coagulation assay 04/06/2023 11:52:50 2.0 (INR) Final Performing Location
--- OUTSIDE RECORDS SUMMARY | 2023-09-12 22:37 | External Medical Summary | Summary of Care ---
Author Name Unknown Organization [facility] Address [address] [facility] [place] [address] Phone [phone] Care Team Providers Care Train Electronic Technician Name Role Phone Yaya Obando MD Primary Care Provider [phone] Reason for Visit * Reason Onset Date Comments Medication Refill 03/25/2023 Encounter Details Date Type Department Care Team Description 03/25/2023 Refill General Internal Medicine [facility] [address] [facility] [address] Yaya Obando MD [address] [place] [address] Esophagitis Allergies Active Allergy Reactions Severity Noted Date [...] as of this encounter (statuses as of 03/28/2023) Medications Medication Sig Dispensed Refills Start Date End Date Status ASPIRIN 81 MG PO CHEW take one tablet daily 34 11 07/11/2007 Active BENADRYL 25 MG PO TABS 1 TABLET EVERY 4 TO 6 HOURS NEEDED 0 Active CALTRATE 600+D 600-400 MG-UNIT PO TABS one tablet twice daily 0 06/17/2009 Active MAG-OXIDE 400 MG PO TABSIndications: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 30 mL 0 11/30/2021 Active Fexofenadine HCl 180 MG Oral Tablet (Lizzette) Take by mouth 1 Tablet daily as needed for Allergies. 90 Tablet 0 01/21/2022 Active Ipratropium Wilson 0.03 % Nasal Solution Administer into each nostril 2 Sprays 2 times a day as needed for Rhinitis. 30 mL 5 02/23/2022 Active Warfarin Sodium 2.5 MG Oral TabletIndications:Ch ronic ischemic heart disease Up to one tablet daily as directed by the [facility] clinic 100 Tablet 3 08/09/2022 Active Mometasone Furoate 50 MCG/ACT Nasal SuspensionIndication [...] the morning. 90 Tablet 1 03/28/2023 Active Pantoprazole Sodium 40 MG Oral Tablet Delayed Release (Protonix)Indication s:Esophagitis Take 1 Tablet (40 mg) by mouth in the morning. 90 Tablet 1 09/18/2022 03/25/20 23 Discontinu ed(Refill) documented as of this encounter (statuses as of 03/28/2023) Active Problems Problem Noted Date Chronic hypoxemic [...] as of this encounter (statuses as of 03/28/2023) Resolved Problems Problem Noted Date Resolved Date [...] Stent Restenosis in Drug-Eluting Stents Project # [id number] Auto Battery Builder: Wilda Serrano MD [phone] GENOMICS CARDIO RESEARCH OTHER*[id number] 200611/29/2016 Overview: Renamed Per Clinical Trials Billing Project. 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 # [id number] Auto Battery Builder: Wilda Serrano MD [phone] Type 2 diabetes mellitus wit h hemoglobin [...] as of this encounter (statuses as of 03/28/2023) Immunizations Name Administration Dates Next Due COVID-19 mRNA, LNP-s, No Pre serve, 2-Dose Series ([employer]) 09/13/2021,01/05/2021,12/15/2020 Covid-19, Mrna, Lnp-s, Pf, B ivalent, [...] Telephone Encounter - Yaya Obando MD - 03/28/2023 12:07 PM EDTSigned Prescriptions: Disp Refills Pantoprazole Sodium 40 MG Oral Tablet Treva*90 Tab*1 Sig: Take 1 Tablet by mouth in the morning. Authorizing Provider: YAYA OBANDO * Telephone Encounter - Yani Hernandez LPN - 03/27/2023 2:03 PM EDTPending Prescriptions: Disp Refills Pantoprazole Sodium 40 MG Oral Tablet Treva*90 Tab*1 Sig: Take 1 Tablet by mouth in the morning. * Telephone Encounter - Yani Hernandez LPN - 03/27/2023 2:02 PM EDT Pending Prescriptions: Disp Refills Pantoprazole Sodium 40 MG Oral Tablet Del*90 Tab*1 Sig: Take 1 Tablet by mouth in the morning. Last Visit: 06/08/2021 (in office), Visit date not found (telemedicine) Next Visit: Visit date not found Last date the medication was ordered: 09/18/2022 documented in this encounter Plan of Treatment Upcoming Encounters Date Type Specialty Care Team Description 04/06/2023 Anticoagulation Pharmacy Pharmacist1, [facility] [address] [place] [address] 04/07/2023 [facility] [address] [place] [address] 05/10/2023 Office Visit Hematology Oncology Agustín Sullivan MD [address] [place] [address] 05/11/2023 Laboratory Laboratory On License Of [facility] [address] [place] [address] 05/15/2023 Office Visit Family Medicine Yaya Obando MD [address] [place] [address] 05/22/2023 Office Visit Cardiology Bucky Calvo PA-C [address] [place] [address] 06/23/2023 Office Visit Otolaryngology Keely Tanner PA-C [address] [place] [address] Health Maintenance Due Date Last Done Comments Zoster Vaccines (1 of 2) 1954 *BISPHONATE OR OTHER ACCEPTABLE MEDICATION NEEDED FOR OSTEOPOROSIS (REFER TO SMARTSET #1146) 10/24/2021 Albumin/Creatinine Ratio 07/04/2023 022, 12/02/2010, 09/24/2009, Additional history exists CKD PHOS USE SMARTSET 04306 11/04/2023 11/04/2022, 0 02/14/2019 Depression Screening, Annual for Pts 12 and Over 02/09/2024 02/08/2023 CKD HGB USE SMARTSET 72079 03/22/202403/22, 03/22/2023, 02/23/2023, Additional history exists DXA Scan 11/09/2024 11/09/2022, 01/21, 11/03/2015, Additional history exists DTaP,Tdap,and Td Vaccines (3 - Td or Tdap) 06/04/2029 06/04/2019, 01/28/2019, 05/26/2008 Pneumococcal Vaccine: 65+ Years Completed 05/24/2016, 11/14/2001 Influenza Vaccine (FLU shot) Completed 09/2022, 07/19/2021, 07/19/2021, Additional history exists COVID-19 Vaccine Completed 09/29/2022, , 01/05/2021, Additional history exists VITAMIN D LEVEL ONCE IN A LIFETIME-USE SMARTSET# 83241 Completed 11/04/2022, 02/14/2019, 06/28/2011, Additional history exists [...] as of this encounter Visit Diagnoses Diagnosis Esophagitis Esophagitis, unspecified documented in this encounter Additional Health Concerns Infection Onset Date Last Indicated Resolved Time Varicella zoster 08/01/2022 08/01/2022 ESBL 01/26/2023 03/10/2023 documented as of this encounter Care Teams Train Electronic Technician Relationship Specialty Start Date End Date Yaya Obando MD [address] [place] [address] [phone] PCP - General Family Medicine 05/04/21 documented as of this encounter
--- OUTSIDE RECORDS SUMMARY | 2023-09-12 22:38 | External Medical Summary | Summary of Care ---
Author Name Unknown Organization [facility] Address [address] [place] [address] Phone [phone] Care Team Providers Care Spinner Cap Frame Name Role Phone Yaya Frederick MD Primary Care Provider [phone] Reason for Referral * Evaluate & Treat - Unlimited Visits (Within 3 days (urgent)) - Pending Review Specialty Diagnoses / Procedures Referred By Shellie lake Referred To Contact Infectious Diseases / Infectious Disease Diagnoses UTI due to extended-spectrum beta lactamase (ESBL) producing Escherichia coli Elsy Aceves MD [address] [place] [id number] Referral ID Status Reason Start Date Expiration Date Visits Requested Visits Authorized [id number] Pending Review Specialty Services Required 03/21/[phone] Question Answer Referral Priority Within 3 days (urgent) What condition is the patient being seen for? All Other Conditions Reason for Visit * Reason Comments Follow Up Encounter Details Date Type Department Care Team Description 03/21/2023 Office Visit [address] [phone] Elsy Aceves MD [address] [place] [id number] UTI due to extended-spectrum beta lactamase (ESBL) producing Escherichia coli*; CHR ISCHEMIC HRT DIS NOS Allergies Active [...] as of this encounter (statuses as of 03/21/2023) Medications Medication Sig Dispensed Refills Start Date End Date Status ASPIRIN 81 MG PO CHEW take one tablet daily 34 11 07/11/2007 Active BENADRYL 25 MG PO TABS 1 TABLET EVERY 4 TO 6 HOURS NEEDED 0 Active CALTRATE 600+D 600-400 MG-UNIT PO TABS one tablet twice daily 0 06/17/2009 Active MAG-OXIDE 400 MG PO TABSIndications: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 30 mL 0 11/30/2021 Active Fexofenadine HCl 180 MG Oral Tablet (Lizzette) Take by mouth 1 Tablet daily as needed for Allergies. 90 Tablet 0 01/21/2022 Active Ipratropium [place] 0.03 % Nasal Solution Administer into each nostril 2 Sprays 2 times a day as needed for Rhinitis. 30 mL 5 02/23/2022 Active Nitrofurantoin Macrocrystal 100 MG Oral Capsule (Macrodantin) Take by mouth 1 Capsule before bedtime. with food.. 90 Capsule 3 06/10/2022 Active Additional Information Patient not taking.Reported on 02/24/2023 Warfarin Sodium 2.5 MG Oral TabletIndications:Ch ronic ischemic heart disease Up to one tablet daily as directed by the [facility] clinic 100 Tablet 3 08/09/2022 Active Pantoprazole [...] 01/23/2023 Active Spironolactone 25 MG Oral Tablet (Aldactone)Indicatio [...] 03/21/2023 Active Torsemide 20 MG Oral Tablet (Demadex)Indications :Chronic ischemic heart disease Take 2 Tablets by mouth in the morning. 1 additional tablet mid day as needed for increase weight. 100 Tablet 2 03/21/2023 Active Torsemide 20 MG Oral Tablet (Demadex)Indications :Chronic ischemic heart disease Take by mouth 2 Tablets in the morning. 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 0 05/05/2006 01/23/2009 Overview: ICD-10 update of inactive term Anticoagulation management encounter 05/05/2006 10/03/2019 Unspecified viral infection, in conditions classified elsewhere and of unspecified site 06/08/2005 09/25/2007 Menopause 12/19/2001 12/27/2017 FEM STRESS INCONTINENCE 05/10/2001 12/04/19 02 documented as of this encounter (statuses as of 03/21/2023) Immunizations Name Administration Dates Next Due COVID-19 mRNA, LNP-s, No Pre serve, 2-Dose Series ([email or web address]) 09/13/2021,01/05/2021,12/15/2020 Covid-19, Mrna, Lnp-s, Pf, B ivalent, [...] Sign Reading Time Taken Comments Blood Pressure 122/72 03/21/2023 6:26 PM EDT Pulse 76 03/21/2023 6:26 PM EDT Temperature 36.2 C (97.2 F) 03/21/2023 6:26 PM ED T Respiratory Rate 18 03/21/2023 6:26 PM EDT Oxygen Saturation 99% 03/21/2023 6:26 PM EDT Inhaled Oxygen Concentration - - Weight 81.2 kg (179 lb) 03/21/2023 6:26 PM EDT Height - - Body Mass Index 36.13 02/24/2023 10:21 AM EDT documented in this encounter Patient Instructions * Patient Instructions* Elsy Aceves MD - 03/21/2023 7:12 PM EDT Increase Torsemide for the next 2 days documented in this encounter Progress Notes * Elsy Aceves MD - 03/21/2023 6:46 PM EDT Images from the original note were not included. Portions of this record may have been dictated using voice recognition software. Variations in spelling and in vocabulary are possible and unintentional. Some errors may not be recognized or corrected at time of dictation. History of Present Illness Shannon Cruz is a 88 year old female that presents for Follow Up Persistent ESBL producing E coli infection. Admission in January for the same. Was treated with IV ertapenem and discharged on Augmentin. Patient was seen on 02/24/2023 restarted on Augmentin however symptoms continued to return when she stops medication. She failed therapy with daily Macrobid for prophylaxis. She continues to have dysuria. She denies any current fever, chills. She does note fatigue and increase in weight over the past several days. Patient does have known history of congestive heart failure, known valvular disease as well. She denies any PND or orthopnea. Currently denies any chest pain. Physical Exam Vitals: 03/21/23 1826 Temp: 36.2 C (97.2 F) Pulse: 76 Resp: 18 SpO2: 99% BP: 122/72 BP Readings from Last 3 Encounters: 03/21/23 122/72 02/24/23 120/76 02/08/23 122/78 Wt Readings from Last 3 Encounters: 03/21/23 81.2 kg (179 lb) 02/24/23 78.5 kg (173 lb) 02/08/23 78.5 kg (173 lb) Physical Exam Vitals and nursing note reviewed. Constitutional: General: She is not in acute distress. Appearance: Normal appearance. HENT: Head: Normocephalic and atraumatic. Eyes: Extraocular Movements: Extraocular movements intact. Cardiovascular: Rate and Rhythm: Normal rate and regular rhythm. Heart sounds: Normal heart sounds. Pulmonary: Effort: Pulmonary effort is normal. Breath sounds: Normal breath sounds. Comments: Very fine crackles on right base Neurological: Mental Status: She is alert. Specimen ID: [id number] Specimen: Urine Specimen: Urine, Clean Catch Non-blood Collection Collection Date and Time: 03/10/2023 9:07 AM Collected By: PALMIRA CASH Received: 03/10/2023 9:07 AM Contains abnormal dataCULTURE, URINE, QUANTITATIVE Order: [id number] Status: Final result Visible to patient: Yes (seen) Next appt: 03/22/2023 at 09:10 AM in Laboratory ([facility]) Dx: Suspected urinary tract infection Specimen Information: Urine, Clean Catch 0 Result Notes Culture Growth >100,000 colonies/mL Escherichia coli ESBL producing organism, This patient may require isolation.Abnormal This gram negative bacilli displays in vitro resistance to multiple antibiotics. This patient may require isolation. Carbapenem use is preferred. Contact infectious disease service for further recommendations. <10,000 colonies/ml mixed normal jone Resulting Agency: Susceptibility Escherichia coli ESBL producing organism, This patient may require isolation. [facility] MICROBROTH DILUTIONS Ampicillin Resistant Ampicillin/Sulbactam Intermediate Cefazolin Resistant Cefepime Susceptible 1 Ceftriaxone Resistant Ciprofloxacin Resistant 2 Ertapenem Susceptible Gentamicin Susceptible Levofloxacin Resistant 3 Meropenem Susceptible Nitrofurantoin Susceptible Piperacillin Tazobactam Susceptible Trimeth/Sulfamethoxazole Susceptible 1 This is an appended report. These results have been appended to a previously preliminary verifiedreport. 2 Due to serious side effects, the FDA has advised against using Ciprofloxacin to treat uncomplicated UTIs and respiratory tract infections unless there are no alternative treatment options. 3 Due to serious side effects, the FDA has advised against using Levofloxacin to treat uncomplicated UTIs and respiratory tract infections unless there are no alternative treatment options. Specimen Collected: 03/10/23 09:07 Last Resulted: 03/13/23 13:04 Assessment and Plan UTI due to extended-spectrum beta lactamase (ESBL) producing Escherichia coli Culture remains exactly the same from 02/24/2023, likely will require ertapenem patient certainly is not septic at this time will ask a doc for recommendations with Infectious Disease but for now recommend restart Augmentin as it did darell some of her symptoms. Urgent referral to Infectious Diseasefor management. If possible this may be something that can be managed outpatient with assistance of home nursing/home health. - INFECTIOUS DISEASE REFERRAL OP - COMPREHENSIVE METABOLIC PANEL; Future - CBC WITH WBC DIFFERENTIAL; Future CHR ISCHEMIC HRT DIS NOS Suspect change in current status due to new findings of severe tricuspid regurgitation as well as infection may be influencing. Recommend follow-up with cardiology as scheduled, I did review her mostrecent echo with her today. Recommend a short increase of torsemide - Torsemide 20 MG Oral Tablet (Demadex); Take 2 Tablets by mouth in the morning. 1 additional tablet mid day as needed for increase weight. - BNP, NT-PRO; Future Wrap-Up Follow Up: Return in about 2 months (around 05/21/2023). documented in this encounter Nursing Notes * Maria Elena Rosales CMA - 03/21/2023 6:21 PM EDT The patient has been properly identified by confirmation of name and date of . Chief Complaint Patient presents with Follow Up Pt c/o weight gain. Pt also feels that UTI hasn't gone away and feels that it is worse. Did have antibiotic, not sure when last dose was. documented in this encounter Plan of Treatment Upcoming Encounters Date Type Specialty Care Team Description 03/22/2023 Laboratory [facility] [address] [place] [address] 03/24/2023 Office Visit Infectious Disease Marin Pena MD [address] [place] [address] 04/06/2023 Anticoagulation Pharmacy Pharmacist1, [facility] [address] [place] [address] 04/07/2023 [facility] [address] [place], [place] [address] 05/10/2023 Office Visit Hematology Oncology Agustín Sullivan MD [address] [place] [address] 05/11/2023 [facility] [address] [place] [address] 05/15/2023 Office Visit Family Medicine Yaya Frederick MD [address] [place] [address] 05/22/2023 Office Visit Cardiology uBcky Calvo PA-C [address] [place] [address] 06/23/2023 Office Visit Otolaryngology Keely Tanner PA-C [address] [place] [address] Scheduled Orders Name Type Priority Associated Diagnoses Orde r Schedule COMPREHENSIVE METABOLIC PANEL Lab Routine UTI due to extended-spectrum beta lactamase (ESBL) producing Escherichia coli Expected: 03/21/2023 (Approximate), Expires: 03/21/2024 CBC WITH WBC DIFFERENTIAL Lab Routine UTI due to extended-spectrum beta lactamase (ESBL) producing Escherichia coli Expected: 03/21/2023 (Approximate), Expires: 03/21/2024 BNP, NT-PRO Lab Routine CHR ISCHEMIC HRT DIS NOS Expected: 03/21/2023 (Approximate), Expires: 03/20/2024 Scheduled Referrals Name Type Priority Associated Diagnoses Orde r Schedule INFECTIOUS DISEASE REFERRAL OP Referral Within 3 days (urgent) UTI due to extended-spectrum beta lactamase (ESBL) producing Escherichia coli Ordered: 03/21/2023 Health Maintenance Due Date Last Done Comments Zoster Vaccines (1 of 2) 1954 *BISPHONATE OR OTHER ACCEPTABLE MEDICATION NEEDED FOR OSTEOPOROSIS (REFER TO SMARTSET #1146) 10/24/2021 Albumin/Creatinine Ratio 07/04/2023 022, 12/02/2010, 09/24/2009, Additional history exists CKD PHOS USE SMARTSET 03619 11/04/2023 11/04/2022, 0 02/14/2019 Depression Screening, Annual for Pts 12 and Over 02/09/2024 02/08/2023 CKD HGB USE SMARTSET 62622 02/24/202402/23, 02/23/2023, 11/04/2022, Additional history exists DXA Scan 11/09/2024 11/09/2022, 01/21, 11/03/2015, Additional history exists DTaP,Tdap,and Td Vaccines (3 - Td or Tdap) 06/04/2029 06/04/2019, 01/28/2019, 05/26/2008 Pneumococcal Vaccine: 65+ Years Completed 05/24/2016, 11/14/2001 Influenza Vaccine (FLU shot) Completed 09/2022, 07/19/2021, 07/19/2021, Additional history exists COVID-19 Vaccine Completed 09/29/2022, , 01/05/2021, Additional history exists VITAMIN D LEVEL ONCE IN A LIFETIME-USE SMARTSET# 00359 Completed 11/04/2022, 02/14/2019, 06/28/2011, Additional history exists [...] of this encounter Visit Diagnoses Diagnosis UTI due to extended-spectrum beta lactamase (ESBL) producing Escherichia coli- Primary CHR ISCHEMIC HRT DIS NOS Chronic ischemic heart disease, unspecified documented in this encounter Additional Health Concerns Infection Onset Date Last Indicated Resolved Time Varicella zoster 08/01/2022 08/01/2022 ESBL 01/26/2023 03/10/2023 documented as of this encounter Care Teams Spinner Cap Frame Relationship Specialty Start Date End Date Yaya Frederick MD [place], [place] [id number] PCP - General Family Medicine 05/04/21 documented as of this encounter
--- OUTSIDE RECORDS SUMMARY | 2023-09-12 22:38 | External Medical Summary ---
Author Name Unknown Address Unknown Organization K01:[facility]AT[facility] [place] [address] [facility] [place] [id number] Laboratory Report Ordering Provider Test Date Status JER FITCH 03/22/2023 09:04:13 Final Observation Date Value Abnormality Reference (Units ) Status SYNC LEUKOCYTES IN BLOOD BY AUTOMATED COUNT 03/22/2023 09:04:13 6.17 4.00-10.80 (K/uL) Final Segs 03/22/2023 09:04:13 72.4 40.0-75.0 (%) Final Lymphs % 03/22/2023 09:04:13 11.5 Below low normal 18.0-42.0 (%) Final Monos 03/22/2023 09:04:13 10.4 1.0-11.0 (%) Final Eosinophils 03/22/2023 09:04:13 4.5 0.0-6.0 (%) Final Basos 03/22/2023 09:04:13 1.0 0.0-2.0 (%) Final Immature Granulocyte, Percent 03/22/2023 09:04:13 0.2 0.0-2.0 (%) Final Absolute Segs 03/22/2023 09:04:13 4.47 1.80-7.70 (K/uL) Final Lymphs, absolute 03/22/2023 09:04:13 0.71 Below low normal 1.00-4.80 (K/ul) Final Monos, Abs 03/22/2023 09:04:13 0.64 0.00-1.10 (K/uL) Final Eos, Abs 03/22/2023 09:04:13 0.28 0.00-0.70 (K/uL) Final Basos, Abs 03/22/2023 09:04:13 0.06 0.00-0.20 (K/uL) Final Immature Granulocytes, Number 03/22/2023 09:04:13 0.01 0.00-0.20 (K/uL) Final Performing Location LAB[facility]ATORY [facility] [place] - [address] [facility] [id number]
--- OUTSIDE RECORDS SUMMARY | 2023-09-12 22:38 | External Medical Summary ---
Author Name Unknown Address Unknown Organization K01:LABORATORY [facility] [place] - [facility] [address] [place] [id number] Laboratory Report Ordering Provider Test Date Status JER FITCH 03/22/2023 09:04:13 Final Observation Date Value Abnormality Reference (Units ) Status WBC, Total 03/22/2023 09:04:13 6.17 4.00-10.80 (K/uL) Final RBC 03/22/2023 09:04:13 3.43 3.85-5.15 (M/uL) Final Hemoglobin 03/22/2023 09:04:13 11.6 Below low normal 12.0-15.3 (g/dL) Final HCT 03/22/2023 09:04:13 38.3 36.0-45.2 (%) Final MCV 03/22/2023 09:04:13 111.7 81.5-97.5 (fL) Final MCH 03/22/2023 09:04:13 33.8 27.0-34.0 (pg) Final MCHC 03/22/2023 09:04:13 30.3 32.0-36.0 (g/dL) Final RDW 03/22/2023 09:04:13 15.4 11.5-15.5 (%) Final Platelets 03/22/2023 09:04:13 308 140-400 (K/uL) Final MPV 03/22/2023 09:04:13 11.7 6.6-11.1 (fL) Final Nucleated erythrocytes/100 leukocytes [Ratio] in Blood by Automated count 03/22/2023 09:04:13 0 <=0 (/100 WBCs) Final Performing Location LABORATORY [facility] [place] - [address] [place] [id number]
--- OUTSIDE RECORDS SUMMARY | 2023-09-12 22:38 | External Medical Summary ---
Author Name Unknown Address Unknown Organization K01[place] [facility] [place] [address] [place] [id number] Laboratory Report Ordering Provider Test Date Status RONNOAHMARIANGEL 03/22/2023 09:04:13 Final Exclude Heart Failure: <300 pg/mL
Diagnose Heart Failure:
Age <50 yr: >450 pg/mL
50-75 yr: >900 pg/mL
>75 yr: >1800 pg/mL
GFR is 30-59 mL/min: >1200 pg/mL or Age- adjusted values
GFR <30 mL/min: do not use, not reliable

Prognostic threshold: 1000 pg/mL Observation Date Value Abnormality Reference (Units ) Status BNP, Pro-hormone 03/22/2023 09:04:13 5 Above high no rmal <300 (pg/mL) Final Performing Location [facility] [facility] [place] [address] [place] [id number]
--- OUTSIDE RECORDS SUMMARY | 2023-09-12 22:38 | External Medical Summary ---
Author Name Unknown Address Unknown Organization K01:[facility] [place] [address] [facility] [place] [id number] Laboratory Report Ordering Provider Test Date Status REINA VELASQUEZ 03/22/2023 09:04:13 Final Observation Date Value Abnormality Reference (Units ) Status BUN 03/22/2023 09:04:13 34 Above high normal 6-20 (mg/dL) Final Creatinine 03/22/2023 09:04:13 1.3 Above high normal 0.5-1.0 (mg/dL) Final Glomerular filtration rate/1.73 sq M.predicted [Volume Rate/Area] in Serum, Plasma or Blood by Creatinine-based formula (CKD-EPI) 03/22/2023 09:04:13 39 Below low normal >=60 (mL/min) Final eGFR is calculated based on the CKD-EPI 2020 equation SODIUM 03/22/2023 09:04:13 146 135-146 (m mol/L) Final Potassium 03/22/2023 09:04:13 3.9 3.5-5.1 (m mol/L) Final Cl 03/22/2023 09:04:13 99 98-107 (mm ol/L) Final CO2 03/22/2023 09:04:13 34 Above high normal 22 -32 (mmol/L) Final Anion gap 03/22/2023 09:04:13 13 7-15 (mmol /L) Final Glucose 03/22/2023 09:04:13 145 Above high normal 70 -120 (mg/dL) Final Albumin 03/22/2023 09:04:13 4.3 3.8-5.0 (g /dL) Final AST (Aspartate aminotransferase) 03/22/2023 09:04:13 25 10-35 (U/L) Fin al Alk Phos 03/22/2023 09:04:13 79 35-130 (U/ L) Final Bilirubin, Total 03/22/2023 09:04:13 0.7 <=1 .2 (mg/dL) Final Calcium 03/22/2023 09:04:13 10.0 8.4-10.2 ( mg/dL) Final Protein 03/22/2023 09:04:13 7.2 6.0-8.3 (g /dL) Final ALT (Alanine aminotransferase) 03/22/2023 09:04:13 16 10-35 (U/L) Jason cardenas Performing Location [facility] [place] [address] [facility] [address]
--- OUTSIDE RECORDS SUMMARY | 2023-09-12 22:38 | External Medical Summary | Summary of Care ---
Author Name Unknown Organization [facility] Address [address] [facility] [address] Phone [phone] Care Team Providers Care Construction Inspector Name Role Phone Yaya Frederick MD Primary Care Provider [phone] Reason for Visit * Reason Comments Outpatient Testing Encounter Details Date Type Department Care Team Description 03/22/2023 Laboratory [facility] [address] [address] S/P aortic valve replacement; Essential thrombocythemia (HCC); [...] SolutionIndications:P ost-nasal discharge Administer into nostril 1 Cornell in the morning AND 1 Cornell before bedtime. 30 mL 0 11/30/2021 Active Fexofenadine HCl 180 MG Oral Tablet (Lizzette) Take by mouth 1 Tablet daily as needed for Allergies. 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 # [id number] Commercial Makeup Artist: Wilda Serrano MD [phone] Type 2 diabetes mellitus wit h hemoglobin [...] mRNA, LNP-s, No Pre serve, 2-Dose Series (Zazoom) 09/13/2021,01/05/2021,12/15/2020 Covid-19, Mrna, Lnp-s, Pf, B ivalent, [...] Infectious Disease Marin Pena MD [address] [place] [address] 04/06/2023 Anticoagulation Pharmacy Pharmacist1, [facility] [address] [address] 04/07/2023 Cardiac Studies Cardiology [facility] [address] [place] [address] 05/10/2023 Office Visit Hematology Oncology Agustín Sullivan MD [address] [place] [address] 05/11/2023 Laboratory Laboratory [facility] [address] [place] [address] 05/15/2023 Office Visit Family Medicine Yaya Frederick MD [address] [place] [address] 05/22/2023 Office Visit Cardiology Bucky Calvo PA-C [address] [place] [address] 06/23/2023 Office Visit Otolaryngology Keely Tanner PA-C [address] [place] [address] Pending Results Name Type Priority Associated Diagnoses [...] Additional history exists CKD PHOS USE SMARTSET 12535 11/04/2023 11/04/2022, 0 02/14/2019 Depression Screening, Annual for Pts 12 and Over 02/09/2024 02/08/2023 CKD HGB USE SMARTSET 19075 02/24/202402/23, 02/23/2023, 11/04/2022, Additional history exists DXA Scan 11/09/2024 11/09/2022, 01/21, 11/03/2015, Additional history exists DTaP,Tdap,and Td Vaccines (3 - Td or Tdap) 06/04/2029 06/04/2019, 01/28/2019, 05/26/2008 Pneumococcal Vaccine: 65+ Years Completed 05/24/2016, 11/14/2001 Influenza Vaccine (FLU shot) Completed 09/2022, 07/19/2021, 07/19/2021, Additional history exists COVID-19 Vaccine Completed 09/29/2022, , 01/05/2021, Additional history exists VITAMIN D LEVEL ONCE IN A LIFETIME-USE SMARTSET# 83635 Completed 11/04/2022, 02/14/2019, 06/28/2011, Additional history exists [...] documented as of this encounter Care Teams Construction Inspector Relationship Specialty Start Date End Date Yaya Frederick MD [address] [place] [id number] PCP - General Family Medicine 05/04/21 documented as of this encounter
--- OUTSIDE RECORDS SUMMARY | 2023-09-12 22:38 | External Medical Summary ---
Author Name Unknown Address Unknown Organization K01:[facility] [place] [address] [place] [address] Laboratory Report Ordering Provider Test Date Status BARI CANDELARIO 03/22/2023 09:04:13 Final Warfarin Therapy
INR: 2 .0-3.0 conventional 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
INR: 2.5- 3.5 high intensity 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 Observation Date Value Abnormality Reference (Units ) Status PT 03/22/2023 09:04:13 22.8 Above high normal 11 .6-15.2 (seconds) Final INR 03/22/2023 09:04:13 2.0 Above high normal 0. 8-1.2 Final Performing Location [facility] [place] [address] [place] [address]
[2023-09-12] MEDS ORDERED: IPRATROPIUM BROMIDE NASAL SPRAY 0.06% 15ML NAE PRN (23:28)
[2023-09-12] MEDS: ROSUVASTATIN CALCIUM 20 MG TAB PO SCH (23:35)
[2023-09-12] MEDS: busPIRone 5 MG TAB PO PRN (23:36)
[2023-09-12] MEDS: METOPROLOL SUCC 50MG EXT REL TAB PO SCH (23:36)
[2023-09-13 02:22] LABS: Hematocrit (blood only) 36.6 % (37.0-47.0); Hemoglobin 11.5 g/dl (12.0-16.0); Mean Corpuscular Hemoglobin 34.1 pg (25.0-34.0); Mean Corpuscular Hgb Conc 31.4 g/dL (32.0-36.0); Mean Corpuscular Volume 108.6 fL (80.0-100.0); Mean Platelet Volume 11.6 fL (9.4-12.4); Platelet Count 243 K/uL (130-400); RDW Coefficient of Variation 16.5 % (11.5-14.5); RDW Standard Deviation 65.8 fL (36.4-46.3); Red Blood Count 3.37 M/uL (4.20-5.40); White Blood Count 6.41 K/ul (4.8-10.8)
[2023-09-13 02:38] LABS: BUN Creatinine Ratio 20.5 (10-20); Calcium 9.9 mg/dl (8.6-10.3); Creatinine Clr Calc Pharmacy 17.3 ml/min; Est GFR (African American) 23.3 ml/min; Est GFR (Non-African American) 20.1 ml/min; Potassium 3.1 mmol/L (3.5-5.1)
[2023-09-13 02:48] LABS: INR 2.6 (0.9-1.1); Prothrombin Time 26.9 Seconds (9.0-12.0)
--- NOTE | 2023-09-13 08:21 | Cardiology Consultation ---
Date of Consultation September 13, 2023 Assessment & Plan (1) Chronic hypoxic respiratory failure: (2) Acute on chronic heart failure with reduced ejection fraction and diastolic dysfunction: (3) ASCVD (arteriosclerotic cardiovascular disease): Plan IMPRESSION: Medically complex 88 year old female with PMH notable for ICM with mildly reduced systolic function, SSS s/p ppm with recent generator change 07/2023, s/p AVR presented with acute on chronic hypoxic respiratory failure. Cause of shortness of breath likely multifactorial given underlying pulmonary disease exacerbated by acute on chronic combined CHF. Patient does not appear markedly volume overloaded and looks to have responded well to IV Lasix x1. Patient has known CKD with a baseline scr around 2. PLAN: Combined ICM/HFrEF/HFpEF: Patient appears mildly hypervolemic on exam-- Will given an additional 40 mg IV Lasix this morning. Normally maintains on Torsemide 20 mg daily at home Monitor renal function and electrolytes with daily BMP. K low this am at 3.1, supplemented with 40 meq of KCL. Strict I&O. Daily standing weights. 2g sodium diet. Continue GDMT with metoprolol succinate 100 mg BID, Losartan 12.5 mg daily, and Imdur 60 mg daily. Continue Plavix 75 mg daily-- not on ASA due to Coumadin use. Continue Statin. Chronic hypoxic resp failure: Likely multifactorial cause given underlying pulmonary disease-- will defer to primary team regarding management. Consider neb treatments. Titration of supplemental o2 as tolerated, normally maintains on 2L at home. PAF: Maintaining NSR on Monitor. PPM in place for SSS with recent gen change in 07/2023 Continue beta buddy and Coumadin as ordered. INR goal between 2.0-3.0. AVR: Hx of bioprosthetic AVR-- gradients stable on echo this admission. Case discussed with Dr. Richardson-- will follow. I spent a total of 40 minutes on the date of service in preparation, delivery, and documentation of the care provided to this patient, excluding any time spent in the performance of separately billed services Supervising Physician Co-Signing Physician Notes Cardiology attending: I personally performed a history and physical exam. Agree with findings and plan as outlined by ELIN Ruiz with additions as noted below. Subjective: Patient notes feeling subjectively improved. Had cough leading up to presentation to the emergency department. Noted worsening lower extremity edema which is already improved. Exam: Cardiovascular: Regular rhythm 1/6 systolic murmur, trace lower extremity edema Pulmonary mildly decreased breath sounds at bases Data: EKG reveals atrial fibrillation in the 70s with chronic repolarization abnormalities. Assessment and Plan: (1) Chronic hypoxic respiratory failure: (2) Acute on chronic heart failure with reduced ejection fraction and diastolic dysfunction: (3) ASCVD (arteriosclerotic cardiovascular disease): -Received furosemide 40 mg last evening, proceed with another dose this morning. Supplement potassium. -Echocardiogram relatively unchanged compared to previous baseline with mild left ventricular systolic dysfunction. DVT prophylaxis: INR 2.6, continue chronic Coumadin I spent a total of 20 minutes on the date of service in preparation, delivery, and documentation of the care provided to this patient, excluding any time spent in the performance of separately billed services. Joe Richardson DO History of Present Illness Reason for Consultation: Shortness of breath Requesting Physician: Jabari hospitalist Attending Physician: Rafael Keller MD History of Present Illness This is an 88-year-old medically complex female who presented to [facility] emergency department due to progressive shortness of breath, lower extremity edema, and abdominal bloating x 2 weeks. Weight up from baseline about 6 lbs. Noted increased oxygen requirements at home from 2 L to 3 L. Patient currently maintained on 20 mg daily of torsemide at home (no missed doses), given 40 mg of IV Lasix in the emergency department with mild improvement in symptoms. Patient carries a history of ischemic cardiomyopathy, most recent echo dated 02/2023 showed a preserved LV systolic function with stable aortic valve bioprosthesis gradients, moderate MR and moderate to severe TR. Repeat echo this admission revealed: a large sized WMA of the apical, septal, anteroseptal, inferior and posterior evans with a LVEF of 40-45%, moderate to severe MR and severe TR. AV gradients stable-- overall unchanged from prior echo dated 04/2023 Upon entrance into the room patient asleep in bed. HOB flat- no orthopnea. Continues to have mild dyspnea with exertion, but okay at rest. Notable lower extremity edema and abdominal bloating. Good appetite. No chest pain, lightheadedness, or palpitations. Denies missed doses of medications. No recent dietary indiscretions. Known CKD with a baseline scr around 2. Stable on morning labs. K low at 3.1-- supplemented with 40 KCL. BNP minimally elevated. I&O: -900 mL Weight: 82.5 kg >> AM weight pending. Outpatient cardiology provider: Dr. Doyle and Bucky Calvo PA-C, also follows with EP-- Dr. Chau Past medical history: Permanent atrial fibrillation, on high-dose metoprolol and anticoagulated with Coumadin-- [id number] (age, female, HTN, CAD). Sinus node dysfunction/intermittent complete heart block status post permanent pacemaker 03/2014, status post generator change 08/02/2023 CAD s/p CABG 04/2006 VARGHESE-LAD, SVG-sequential graft LAD diag to Cx OM, SVG-RCA Pre AVR cath-- 12/2006 SVG-RCA occluded; PCI to RCA) H/o Aortic stenosis, status post AVR, 04/2006, gradients stable 02/2023 Hypertension Hyperlipidemia Carotid artery stenosis, bilateral Mild GAVIN not on CPAP--intolerant Chronic combined diastolic and systolic CHF Ischemic cardiomyopathy Mild MR Moderate to severe TR Chronic hypoxic respiratory failure, supplemental oxygen therapy (2 L) CKD stage 3 Allergies Allergy/AdvReac Type Severity Reaction Status Date / Time amiodarone Allergy Severe EDEMA Verified 09/12/23 16:05 FACE/LIPS/TONGUE, RASH azithromycin [From Zithromax] Allergy Severe THROAT Verified 09/12/23 16:05 SWELLED, DENIED SHORT OF BREATH. adhesive Allergy Intermediate Rash Verified 09/12/23 16:05 etodolac Allergy Intermediate PRURITIS-IO Verified 09/12/23 16:05 DINE iodine Allergy Intermediate itching Verified 09/12/23 16:05 Penicillins Allergy Intermediate ITCHY RASH Verified 09/12/23 16:05 Sulfa (Sulfonamide Allergy Intermediate Rash Verified 09/12/23 16:05 Antibiotics) cephalexin [From Keflex] Allergy Unknown PER Verified 09/12/23 16:05 GMG--TRUE REACTION TO KEFLEX gabapentin AdvReac Intermediate sedation Verified 09/12/23 16:05 lisinopril AdvReac Intermediate Swelling Verified 09/12/23 16:05 of Lip/Tongue/Throat simvastatin AdvReac Unknown CAN'T Verified 09/12/23 16:05 REMEMBER Home Medications Medication Instructions Recorded Confirmed Type diphenhydramine HCl 25 mg tablet 25 mg PO Q4 PRN allergies 01/29/23 09/12/23 History (Benadryl Allergy) fexofenadine 180 mg tablet 180 mg PO DAILY PRN allergies 01/29/23 09/12/23 History (Lizzette Allergy) hydroxyurea 500 mg capsule 500 mg PO [id number] 01/29/23 09/12/23 History ipratropium bromide 21 mcg (0.03 2 spray intranasal BID PRN RHINITIS 01/29/23 09/12/23 History %) nasal spray mometasone 50 mcg/actuation nasal 2 spray intranasal QAM 01/29/23 09/12/23 History spray nitroglycerin 0.4 mg sublingual 0.4 mg sublingual DIRECTED PRN 01/29/23 09/12/23 History tablet (Nitrostat) Chest Pain warfarin 2.5 mg tablet 2.5 mg PO WE@0900 01/29/23 09/12/23 History clopidogrel 75 mg tablet 75 mg PO QAM #30 tabs 05/09/23 09/12/23 Rx losartan 25 mg tablet 12.5 mg (1/2 x 25 mg) PO QAM #30 05/09/23 09/12/23 Rx tabs azelastine 137 mcg (0.1 %) nasal 1 spray intranasal BID PRN 05/18/23 09/12/23 History spray aerosol allergies buspirone 5 mg tablet 5 mg PO BID PRN Anxiety 05/18/23 09/12/23 History isosorbide mononitrate 60 mg 60 mg PO QAM #30 tabs 06/10/23 09/12/23 Rx tablet,extended release 24 hr torsemide 20 mg tablet 20 mg PO DAILY #30 tabs 06/10/23 09/12/23 Rx Lactobacil.acidophilus-Bifido.animalis 1 cap PO DAILY 09/12/23 09/12/23 History 5 billion cell sprinkle capsule (Probiotic) famotidine 20 mg tablet 20 mg PO DAILY 09/12/23 09/12/23 History metoprolol succinate 100 mg 100 mg PO BID 09/12/23 09/12/23 History tablet,extended release 24 hr rosuvastatin 20 mg tablet 20 mg PO QPM 09/12/23 09/12/23 History warfarin 2.5 mg tablet 1.25 mg PO SUMOTUTHFRSA@0900 09/12/23 09/12/23 History Patient History Medical History (Updated 09/12/23 @ 21:33 by Kacie Andre, DO) Coronary artery disease with angina pectoris CKD (chronic kidney disease), stage III Chronic diastolic CHF (congestive heart failure) Cardiac pacemaker in situ Sinus node dysfunction ASCVD (arteriosclerotic cardiovascular disease) 2006 - CABG x 3, bioproesthetic aortic valve replacement 2007 - PCI and stenting to SVG to RCA occlusion Atrial fibrillation, persistent Current use of chcf 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 Tinnitus of left ear Sensorineural hearing loss of both ears HLD (hyperlipidemia) HTN (hypertension) Essential thrombocythemia CKD (chronic kidney disease) stage 2, GFR 60-89 ml/min UTI due to extended-spectrum beta lactamase (ESBL) producing Escherichia coli Generalized weakness Anemia 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) Replacement of aortic valve (Unknown) "[facility] [place] 2005 Mary-Good " Dermatitis Carotid artery occlusion (Unknown) Surgical History Status post transcatheter aortic valve replacement (TAVR) using bioprosthesis History of colonoscopy with polypectomy History of cystoscopy History of tubal ligation Total abdominal hysterectomy with bilateral salpingo-oophorectomy (Unknown) Stented coronary artery (Unknown) Placement of stent in coronary artery (Unknown) "RCA December 2006 " Implantation of aortic valve prosthesis or synthetic device (Unknown) Coronary artery bypass grafting (Unknown) "[facility] [place] April 2006 VARGHESE to LAD SVG's to diagonal, obtuse marginal, RCA " Family History Father Prostate cancer Mother Diabetes Sister Coronary heart disease Social History Smoking Status: Never smoker Second Hand Exposure: No; Do You Dip or Chew Tobacco: No; Hx Alcohol Use: No Hx Substance Use: No Preferred Language: Amharic Communication Ability: Effective Visual Impairment: No Limitations Hearing Ability: Normal Tubular Splitting Machine Tender Required: No Beliefs That Will Affect Care: None marital status: / Current Living Situation: Alone Feels Safe at Home: Yes Safety Concerns: Feels Safe At This Time Assistive Devices: Hearing Aid - Bilateral, Oxygen - Continuous and Walker Review of Systems Review of Systems: All systems reviewed & are unremarkable except as noted in HPI & below Physical Exam Constitutional: well developed, well nourished and + ill appearing; no acute distress Neck: normal visual inspection and trachea midline Respiratory: + cough and + tachypneic (with exertion) Auscultation: + rhonchi and + wheezes; no rales Cardiovascular: Rate/Rhythm: regular rate and regular rhythm Heart Sounds: normal S1, normal S2 and + murmur (+systolic murmur) Vessels: + JVD (mild ) Extremities: + edema (+2 BLLE pitting edema) Chest (Breasts): Chest: + pacemaker (left chest ) Gastrointestinal (Abdomen): Inspection/Auscultation: + abdomen distended Percussion/Palpation: + abdomen firm; abdomen nontender Skin: no rashes, warm and dry Psychiatric: A+Ox3, euthymic affect ([place]) Results & Data Vital Signs (Past 12 Hours) Vital Signs Pulse Pulse Resp BP BP Pulse Ox Pulse Ox 09/13/23 08:03 74 09/13/23 06:00 70 19 108/58 L 100 09/13/23 05:01 73 19 104/80 100 09/13/23 04:01 83 19 144/72 H 100 09/13/23 03:00 74 16 100 09/13/23 01:00 73 18 127/61 97 09/12/23 23:25 86 09/12/23 23:08 09/12/23 23:08 83 21 139/102 H 97 09/12/23 22:20 100 09/12/23 22:20 76 15 119/70 98 O2 Del Method O2 Del Method O2 Flow Rate O2 Flow Rate 09/13/23 08:03 09/13/23 06:00 Nasal Cannula 3 09/13/23 05:01 Nasal Cannula 3 09/13/23 04:01 Nasal Cannula 3 09/13/23 03:00 Nasal Cannula 3 09/13/23 01:00 Nasal Cannula 3 09/12/23 23:25 09/12/23 23:08 Nasal Cannula 3 09/12/23 23:08 Nasal Cannula 3 09/12/23 22:20 Nasal Cannula 3 09/12/23 22:20 Room Air 3 Laboratory Results Cardiac Enzymes 09/12/23 09/12/23 09/13/23 Range/Units 16:57 20:15 02:00 AST 30 (13-39) U/L Troponin I High Sens 24.3 H 25.5 H 23.8 H (0-14) pg/ml B-Natriuretic Peptide 490 H (0-100) pg/ml 09/13/23 Range/Units 07:56 AST (13-39) U/L Troponin I High Sens 23.6 H (0-14) pg/ml B-Natriuretic Peptide (0-100) pg/ml Coagulation 09/12/23 09/13/23 Range/Units 16:57 02:00 PT 25.8 H 26.9 H (9.0-12.0) Seconds B-Natriuretic Peptide 490 H (0-100) pg/ml CBC 09/12/23 09/13/23 Range/Units 16:57 02:00 WBC 6.98 6.41 (4.8-10.8) K/ul RBC 3.43 L 3.37 L (4.20-5.40) M/uL Hgb 11.6 L 11.5 L (12.0-16.0) g/dl Hct 37.3 36.6 L (37.0-47.0) % Plt Count 256 243 (130-400) K/uL Neut # (Auto) 5.11 (1.40-6.50) K/uL Lymph # (Auto) 0.67 L (1.20-3.40) K/uL [place] # (Auto) 0.91 H (0.11-0.59) K/uL Eos # (Auto) 0.19 (0.00-0.50) K/uL Baso # (Auto) 0.06 (0.00-0.20) K/uL Comprehensive Metabolic Panel 09/12/23 09/13/23 Range/Units 16:57 02:00 Sodium 142 142 (136-145) mmol/L Potassium 3.6 3.1 L (3.5-5.1) mmol/L Chloride 100 100 (98-107) mmol/L Carbon Dioxide 33 H 35 H (21-32) mmol/L BUN 43 H 44 H (6-23) mg/dl Creatinine 2.05 H 2.15 H (0.6-1.2) mg/dl Glucose 98 129 H (70-99(Fasting)) mg/dl Calcium 10.1 9.9 (8.6-10.3) mg/dl AST 30 (13-39) U/L ALT 13 (7-52) U/L Alkaline Phosphatase 114 H (34-104) U/L Total Protein 7.6 (6.0-8.3) gm/dl Albumin 4.0 (3.4-5.0) gm/dl Intake and Output 09/12/23 09/13/23 09/13/23 22:59 06:59 14:59 Output Total 900 / 900 Balance -900 / -900 Output: Urine Amount (Catheter) 900 / 900 [place]/Indwelling 900 / 900 Other: Weight 82.5 kg Weight Measurement Method Built in [facility]
[2023-09-13] MEDS ORDERED: POTASSIUM CHLORIDE CRTAB 20 MEQ TABCR PO STA ×2 (08:52→14:46)
[2023-09-13] MEDS ORDERED: WARFARIN SOD 2.5 MG TAB PO SCH (09:00)
[2023-09-13] MEDS ORDERED: FUROSEMIDE 40 MG/4 ML VIAL IV ONE (09:02)
[2023-09-13] MEDS: CLOPIDOGREL BISULFATE 75 MG TAB PO SCH (09:15)
[2023-09-13] MEDS: HYDROXYUREA 500 MG CAP PO SCH (09:16)
[2023-09-13] MEDS: FAMOTIDINE 20 MG TAB PO SCH (09:16)
[2023-09-13] MEDS: FLUTICASONE PROPIONATE NA SPR 16 GM BTL SCH (09:16)
[2023-09-13] MEDS: METOPROLOL SUCC 50MG EXT REL TAB PO SCH ×2 (09:16→20:06)
[2023-09-13] MEDS: ISOSORBIDE MONO EXTENDED REL 60 MG TABCR PO SCH (09:16)
[2023-09-13] MEDS: ADVANCED PROBIOTIC 1250 MG CAPSULE PO SCH (09:16)
[2023-09-13] MEDS: LOSARTAN POTASSIUM 25 MG TAB PO SCH (09:16)
--- NOTE | 2023-09-13 11:25 | Hospitalist Progress Note ---
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 HFimpEF S/p AVR, Valvular heart disease H/o pulmonary hypertension Presenting with increased dyspnea on exertion and edema x 2 weeks Currently on 20mg Torsemide at home, follows with Dr. Raphael and DAVID Calvo H/o ischemic cardiomyopathy but 2D echo from February 2023 with preserved EF 55-59%, AV bioprosthesis present, mod MR, mod-severe tricuspid regurg, compared to previous shows slight increase in pulm pressure of 45mmhg Appears clinically volume overloaded, BNP 490 Given 40 mg IV Lasix in ED, cont. with 40 IV lasix today Cardiology consulted, repeated 2D echo -moderate concentric LVH in the segments with normal wall motion. There is a large sized apical septal anteroseptal inferior and posterior wall motion abnormality with hypokinesis to akinesis of the segments. LVEF 40 to 45%. There is bioprosthetic aortic valve. Trivial bioprosthetic aortic valve regurg. Gradient is normal for his prosthetic aortic valve. There is moderate to severe mitral regurg. Severe tricuspid regurg. Pulmonary artery systolic pressure is estimated to be 37 mmHg. Compared to the report of the previous study dated April 2023, there is no significant change Low sodium diet, I&Os, daily weights H/O GAVIN Chronic hypoxic resp failure Intolerance to CPAP Chronic oxygen dependency Continue supplemental oxygen at 2L NC O2 Recurrent angina Coronary artery disease S/P CABG, Stents Chronic troponin elevation Chronic, stable. Continue Toprol, Crestor, Plavix, Imdur History of ESBL E coli UTI Asymptomatic currently so no need for UA Keep on contact precautions CKD III Cr 2.05 at baseline (Cr ~ high 1s-2) Monitor with daily BMP SSS s/p PPM Paroxysmal atrial fibrillation Continue Toprol, coumadin for 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. Currently coumadin dose 2.5mg Mon, 1.25mg all other days H/o CVA, PVD Continue Plavix, statin next DM II Diet controlled HbA1c 6.2 in May 2023 Essential thrombocythemia Continue Hydrea Daily CBC DVT Ppx: Coumadin Code status: FULL PCP: Dr. Frederick Dispo: PCU Admission and Anticipated Discharge Date Admission Date: September 12, 2023 Subjective Pt seen in follow up of worsening hypoxia, CHF exacerbation received IV lasix on admission and this AM cardiology also consulted Pt on chronic coumadin and INR therapeutic Currently sitting up in chair in NAD Says she feels better already Denies chest pain, palpitations or shortness of breath at this time Currently she has a [place] catheter Review of Systems Review of Systems: All systems reviewed & are unremarkable except as noted in Subjective Physical Exam Physical Exam: CONSTITUTIONAL: obese, vitals as above, generally well-appearing, NAD, on suppl. O2 EYES: normal conjunctivae, no scleral icterus ENT: external ear and nose normal NECK: trachea midline RESPIRATORY: clear to auscultation bilaterally with decreased breath sounds at bases, no crackles, rales or wheezes, normal respiratory effort, no conversat ional dyspnea at rest. + LE edema CARDIOVASCULAR: regular rate and rhythm, S1 and 2 heard without murmurs,trace LE edema CHEST: inspection of chest was normal GASTROINTESTINAL: soft, nontender, ND, no guarding MUSCULOSKELETAL: strength 5/5 throughout, head is normocephalic and atraumatic SKIN: warm and dry NEUROLOGIC: awake alert oriented, answers appropriately, no sensory deficit, normal cognition, normal speech, no tremor, moves extremities Results & Data Results & Data Vital Signs (Past 12 Hours) Vital Signs Temp Pulse Pulse Resp BP BP Pulse Ox 09/13/23 11:10 37.0 C 79 18 133/81 100 09/13/23 08:17 36.4 C 76 16 106/56 L 09/13/23 08:03 74 09/13/23 08:00 09/13/23 06:00 70 19 108/58 L 100 09/13/23 05:01 73 19 104/80 100 09/13/23 04:01 83 19 144/72 H 100 09/13/23 03:00 74 16 100 09/13/23 01:00 73 18 127/61 97 09/12/23 23:25 86 O2 Del Method O2 Flow Rate 09/13/23 11:10 Room Air 09/13/23 08:17 Room Air 09/13/23 08:03 09/13/23 08:00 Nasal Cannula 3 09/13/23 06:00 Nasal Cannula 3 09/13/23 05:01 Nasal Cannula 3 09/13/23 04:01 Nasal Cannula 3 09/13/23 03:00 Nasal Cannula 3 09/13/23 01:00 Nasal Cannula 3 09/12/23 23:25 Laboratory Results 09/13/23 09/13/23 09/12/23 Range/Units 07:56 02:00 20:15 WBC 6.41 (4.8-10.8) K/ul RBC 3.37 L (4.20-5.40) M/uL Hgb 11.5 L (12.0-16.0) g/dl Hct 36.6 L (37.0-47.0) % MCV 108.6 H (80.0-100.0) fL MCH 34.1 H (25.0-34.0) pg MCHC 31.4 L (32.0-36.0) g/dL RDW Std Deviation 65.8 H (36.4-46.3) fL RDW Coeff of Ge 16.5 H (11.5-14.5) % Plt Count 243 (130-400) K/uL MPV 11.6 (9.4-12.4) fL Immature Gran % (Auto) % Neut % (Auto) % Lymph % (Auto) % [place] % (Auto) % Eos % (Auto) % Baso % (Auto) % Neut # (Auto) (1.40-6.50) K/uL Lymph # (Auto) (1.20-3.40) K/uL [place] # (Auto) (0.11-0.59) K/uL Eos # (Auto) (0.00-0.50) K/uL Baso # (Auto) (0.00-0.20) K/uL Immature Gran # (Auto) (0.01-0.20) K/uL PT 26.9 H (9.0-12.0) Seconds INR 2.6 H (0.9-1.1) Sodium 142 (136-145) mmol/L Potassium 3.1 L (3.5-5.1) mmol/L Chloride 100 (98-107) mmol/L Carbon Dioxide 35 H (21-32) mmol/L Anion Gap 7 (3-11) BUN 44 H (6-23) mg/dl Creatinine 2.15 H (0.6-1.2) mg/dl Est Cr Clr Drug Dosing 17.3 ml/min Est GFR ( Amer) 23.3 ml/min Est GFR (Non-Af Amer) 20.1 ml/min BUN/Creatinine Ratio 20.5 H (10-20) Glucose 129 H (70-99(Fasting)) mg/dl Calcium 9.9 (8.6-10.3) mg/dl Total Bilirubin (0.2-1.0) mg/dl AST (13-39) U/L ALT (7-52) U/L Alkaline Phosphatase (34-104) U/L Troponin I High Sens 23.6 H 23.8 H 25.5 H (0-14) pg/ml B-Natriuretic Peptide (0-100) pg/ml Total Protein (6.0-8.3) gm/dl Albumin (3.4-5.0) gm/dl Globulin (2.5-4.0) gm/dl Albumin/Globulin Ratio (0.9-2) Lipase (11-82) U/L 09/12/23 Range/Units 16:57 WBC 6.98 (4.8-10.8) K/ul RBC 3.43 L (4.20-5.40) M/uL Hgb 11.6 L (12.0-16.0) g/dl Hct 37.3 (37.0-47.0) % MCV 108.7 H (80.0-100.0) fL MCH 33.8 (25.0-34.0) pg MCHC 31.1 L (32.0-36.0) g/dL RDW Std Deviation 66.7 H (36.4-46.3) fL RDW Coeff of Ge 16.7 H (11.5-14.5) % Plt Count 256 (130-400) K/uL MPV 11.4 (9.4-12.4) fL Immature Gran % (Auto) 0.6 % Neut % (Auto) 73.2 % Lymph % (Auto) 9.6 % [place] % (Auto) 13.0 % Eos % (Auto) 2.7 % Baso % (Auto) 0.9 % Neut # (Auto) 5.11 (1.40-6.50) K/uL Lymph # (Auto) 0.67 L (1.20-3.40) K/uL [place] # (Auto) 0.91 H (0.11-0.59) K/uL Eos # (Auto) 0.19 (0.00-0.50) K/uL Baso # (Auto) 0.06 (0.00-0.20) K/uL Immature Gran # (Auto) 0.04 (0.01-0.20) K/uL PT 25.8 H (9.0-12.0) Seconds INR 2.5 H (0.9-1.1) Sodium 142 (136-145) mmol/L Potassium 3.6 (3.5-5.1) mmol/L Chloride 100 (98-107) mmol/L Carbon Dioxide 33 H (21-32) mmol/L Anion Gap 9 (3-11) BUN 43 H (6-23) mg/dl Creatinine 2.05 H (0.6-1.2) mg/dl Est Cr Clr Drug Dosing 18.4 ml/min Est GFR ( Amer) 24.6 ml/min Est GFR (Non-Af Amer) 21.3 ml/min BUN/Creatinine Ratio 21.0 H (10-20) Glucose 98 (70-99(Fasting)) mg/dl Calcium 10.1 (8.6-10.3) mg/dl Total Bilirubin 1.1 H (0.2-1.0) mg/dl AST 30 (13-39) U/L ALT 13 (7-52) U/L Alkaline Phosphatase 114 H (34-104) U/L Troponin I High Sens 24.3 H (0-14) pg/ml B-Natriuretic Peptide 490 H (0-100) pg/ml Total Protein 7.6 (6.0-8.3) gm/dl Albumin 4.0 (3.4-5.0) gm/dl Globulin 3.6 (2.5-4.0) gm/dl Albumin/Globulin Ratio 1.1 (0.9-2) Lipase 74 (11-82) U/L Medications Administered Current Inpatient Medications Acetaminophen (Acetaminophen 325 Mg Tab) 650 mg PO Q4H PRN PRN Reason: Pain or Fever Stop: 10/12/23 22:19 Buspirone HCl (Buspirone 5 Mg Tab) 5 mg PO BID PRN PRN Reason: Anxiety Stop: 10/12/23 22:19 Last Admin: 09/12/23 23:36 Dose: 5 mg Clopidogrel Bisulfate (Clopidogrel Bisulfate 75 Mg Tab) 75 mg PO QAM [facility] Stop: 10/13/23 08:59 Last Admin: 09/13/23 09:15 Dose: 75 mg Famotidine (Famotidine 20 Mg Tab) 20 mg PO DAILY [facility] Stop: 10/13/23 08:59 Last Admin: 09/13/23 09:16 Dose: 20 mg Fexofenadine HCl (Fexofenadine Hcl 180 Mg Tab) 180 mg PO DAILY PRN PRN Reason: allergies Stop: 10/12/23 22:19 Fluticasone Propionate (Fluticasone Propionate Na Spr 16 Gm Btl) 2 sprays NA QAM [facility] Stop: 10/13/23 08:59 Last Admin: 09/13/23 09:16 Dose: 2 sprays Hydroxyurea (Hydroxyurea 500 Mg Cap) 500 mg PO MoTuWeThFr@0900 [facility] Stop: 10/13/23 08:59 Last Admin: 09/13/23 09:16 Dose: 500 mg Ipratropium Glenvil (Ipratropium Glenvil Nasal [place] 0.06% 15ml) 1 sprays SAIRA BID PRN PRN Reason: RHINITIS Stop: 10/12/23 23:27 Isosorbide Mononitrate (Isosorbide [place] Extended Rel 60 Mg Tabcr) 60 mg PO QAM [facility] Stop: 10/13/23 08:59 Last Admin: 09/13/23 09:16 Dose: 60 mg Lactobacillus Acidophilus (Advanced Probiotic 1250 Mg Capsule) 2 cap PO DAILY [facility] Stop: 10/13/23 08:59 Last Admin: 09/13/23 09:16 Dose: 2 cap Losartan Potassium (Losartan Potassium 25 Mg Tab) 12.5 mg PO QAM [facility] Stop: 10/13/23 08:59 Last Admin: 09/13/23 09:16 Dose: 12.5 mg Metoprolol Succinate (Metoprolol Succ 50mg Ext Rel Tab) 100 mg PO BID [facility] Stop: 10/12/23 22:19 Last Admin: 09/13/23 09:16 Dose: 100 mg Ondansetron HCl (Ondansetron Inj 2 Mg/Ml 2 Ml Vial) 4 mg IV Q6H PRN PRN Reason: Nausea Stop: 10/12/23 22:19 Polyethylene Glycol (Polyethylene (Miralax) 17 Gm Pack) 17 gm PO DAILY PRN PRN Reason: Constipation Stop: 10/12/23 22:19 Rosuvastatin Calcium (Rosuvastatin Calcium 20 Mg Tab) 20 mg PO QPM [facility] Stop: 10/12/23 22:19 Last Admin: 09/12/23 23:35 Dose: 20 mg Warfarin Sodium (Warfarin Sod 2.5 Mg Tab) 2.5 mg PO WE@0900 [facility] Stop: 10/13/23 08:59 Last Admin: 09/13/23 09:16 Dose: 2.5 mg Warfarin Sodium (Warfarin Sod 1.25 Mg Tab) 1.25 mg PO SUMOTUTHFRSA@0900 [facility] Stop: 10/14/23 08:59 (3) CAD (coronary atherosclerotic disease) Associated angina: with unspecified form of angina Coronary Disease- Associated Artery/Lesion type: unspecified vessel or lesion type [place] vs. transplanted heart: [place] heart Qualified Code(s): I25.119 - Atherosclerotic heart disease of [place] coronary artery with unspecified angina pectoris
[2023-09-13] MEDS: ROSUVASTATIN CALCIUM 20 MG TAB PO SCH (20:05)
[2023-09-13] MEDS: busPIRone 5 MG TAB PO PRN (20:46)
--- NOTE | 2023-09-14 02:09 | Communication Note ---
Date of Service: September 14, 2023 Patient complaining of bladder pressure/burning. Requesting for [place] catheter to be removed. Urine CS WBC esterase, nitrate positive AP Complicated UTI History recurrent ESBL infections Ertapenem
[2023-09-14 02:10] LABS: Appearance Urine Cloudy (Clear); Bacteria Urine Automated 2+ (Negative); Bilirubin Urine Negative (Negative); Blood Urine 2+ (Negative); Color Urine Yellow; Glucose Urine UA Negative (Negative); Ketones Urine Negative (Negative); Leukocyte Esterase Urine 3+ (Negative); Nitrite Urine Positive (Negative); Protein Urine 2+ (Negative); Specific Gravity Urine 1.014 (1.000-1.030); Urobilinogen Urine Negative (Negative); WBC Urine Automated >30 /hpf (0-5); pH Urine 5.5 (4.5-7.5)
[2023-09-14] MEDS ORDERED: COUGH DROP (SUGAR FREE) LOZ 24 LOZ/1 BOX BUCCAL PRN (02:12)
[2023-09-14] MEDS: FEXOFENADINE HCL 180 MG TAB PO PRN (02:33)
[2023-09-14] MEDS: ERTAPENEM SODIUM 500 MG in SYRINGE 0 ML IV SCH (04:27)
--- NOTE | 2023-09-14 06:49 | Electrocardiogram Report ---
Test Reason : Blood Pressure : / mmHG Vent. Rate : 078 BPM Atrial Rate : 000 BPM P-R Int : 000 ms QRS Dur : 128 ms QT Int : 408 ms P-R-T Axes : 000 -56 090 degrees QTc Int : 465 ms Atrial fibrillation Left axis deviation Right bundle branch block Minimal voltage criteria for LVH, may be normal variant ( R in aVL ) Septal infarct , age undetermined T wave abnormality, consider lateral ischemia Abnormal ECG When compared with ECG of 06-JUN-2023 06:31, QRS axis Shifted left T wave inversion no longer evident in Inferior leads T wave inversion less evident in Anterolateral leads Confirmed by Jet Jerome [id number]) on 09/14/2023 6:48:54 AM Referred By: REFERRED SELF Confirmed By:Jet Jerome
--- NOTE | 2023-09-14 07:39 | Hospitalist Progress Note ---
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 HFimpEF S/p AVR, Valvular heart disease H/o pulmonary hypertension Presenting with increased dyspnea on exertion and edema x 2 weeks Currently on 20mg Torsemide at home, follows with Dr. Raphael and DAVID Calvo H/o ischemic cardiomyopathy but 2D echo from February 2023 with preserved EF 55-59%, AV bioprosthesis present, mod MR, mod-severe tricuspid regurg, compared to previous shows slight increase in pulm pressure of 45mmhg Appears clinically volume overloaded, BNP 490 Given 40 mg IV Lasix in ED, cont. with 40 IV lasix next day -> will hold now (pt responded well) Cardiology consulted, repeated 2D echo -moderate concentric LVH in the segments with normal wall motion. There is a large sized apical septal anteroseptal inferior and posterior wall motion abnormality with hypokinesis to akinesis of the segments. LVEF 40 to 45%. There is bioprosthetic aortic valve. Trivial bioprosthetic aortic valve regurg. Gradient is normal for his prosthetic aortic valve. There is moderate to severe mitral regurg. Severe tricuspid regurg. Pulmonary artery systolic pressure is estimated to be 37 mmHg. Compared to the report of the previous study dated April 2023, there is no significant change Low sodium diet, I&Os, daily weights H/O GAVIN Chronic hypoxic resp failure Intolerance to CPAP Chronic oxygen dependency Continue supplemental oxygen at 2L [place] O2 Recurrent angina Coronary artery disease S/P CABG, Stents Chronic troponin elevation Chronic, stable. 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 for now Pt denies any urinary discomfort after [place] removed Keep on contact precautions CKD III Cr 2.05 at baseline (Cr ~ high 1s-2) Monitor with daily BMP SSS s/p PPM Paroxysmal atrial fibrillation Continue Toprol, coumadin for 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. Currently coumadin dose 2.5mg Mon, 1.25mg all other days H/o CVA, PVD Continue Plavix, statin next DM II Diet controlled HbA1c 6.2 in May 2023 Essential thrombocythemia Continue Hydrea Daily CBC DVT Ppx: Coumadin Code status: FULL PCP: Dr. Frederick Dispo: PCU Admission and Anticipated Discharge Date Admission Date: September 12, 2023 Subjective Pt seen in follow up of worsening hypoxia, CHF exacerbation received IV lasix on admission and yesterday AM -> responded well, hold now cardiology consulted and following Pt on chronic coumadin and INR therapeutic Currently sitting up in chair in NAD Says she feels better Breathing comfortably on RA while sitting in the chair Denies chest pain, palpitations or shortness of breath at this time Overnight [place] catheter was bothering the pt, catheter was removed and UA and Ucultx sent. She has hx of ESBL E.coli UTI, UA w/WBC esterase, and nitrates, was started overnight empirically on Ertapenem. Pt says she had no dysuria or urinary frequency prior to catheter being placed, and now when removed she denies having any dysuria or any urinary discomfort. Review of Systems Review of Systems: All systems reviewed & are unremarkable except as noted in Subjective Physical Exam Physical Exam: CONSTITUTIONAL: obese elderly F , generally well-appearing, NAD, on RA EYES: normal conjunctivae, no scleral icterus ENT: external ear and nose normal NECK: trachea midline RESPIRATORY: clear to auscultation bilaterally with decreased breath sounds at bases, no crackles, rales or wheezes, normal respiratory effort, no conversational dyspnea at rest. + mild LE edema (improved) CARDIOVASCULAR: regular rate and rhythm, S1 and 2 heard without murmurs,trace LE edema CHEST: inspection of chest was normal GASTROINTESTINAL: soft, nontender, ND, no guarding MUSCULOSKELETAL: strength 5/5 throughout, head is normocephalic and atraumatic SKIN: warm and dry NEUROLOGIC: awake alert oriented, answers appropriately, normal speech, no tremor, moves extremities Results & Data Results & Data Vital Signs (Past 12 Hours) Vital Signs Temp Pulse Pulse Resp BP Pulse Ox O2 Del Method 09/14/23 02:38 36.7 C 78 20 107/62 99 Nasal Cannula 09/13/23 23:01 88 09/13/23 22:42 36.6 C 82 18 102/64 100 Nasal Cannula 09/13/23 20:46 Nasal Cannula 09/13/23 20:02 109/68 O2 Flow Rate 09/14/23 02:38 09/13/23 23:01 09/13/23 22:42 09/13/23 20:46 3 09/13/23 20:02 Laboratory Results 09/14/23 09/14/23 Range/Units 07:47 01:50 WBC 6.88 (4.8-10.8) K/ul RBC 3.15 L (4.20-5.40) M/uL Hgb 10.8 L (12.0-16.0) g/dl Hct 33.7 L (37.0-47.0) % MCV 107.0 H (80.0-100.0) fL MCH 34.3 H (25.0-34.0) pg MCHC 32.0 (32.0-36.0) g/dL RDW Std Deviation 64.9 H (36.4-46.3) fL RDW Coeff of Ge 16.5 H (11.5-14.5) % Plt Count 229 (130-400) K/uL MPV 11.7 (9.4-12.4) fL PT 31.4 H (9.0-12.0) Seconds INR 3.1 H (0.9-1.1) Sodium 145 (136-145) mmol/L Potassium 3.8 D (3.5-5.1) mmol/L Chloride 104 (98-107) mmol/L Carbon Dioxide 34 H (21-32) mmol/L Anion Gap 7 (3-11) BUN 40 H (6-23) mg/dl Creatinine 1.89 H (0.6-1.2) mg/dl Est Cr Clr Drug Dosing 19.3 ml/min Est GFR ( Amer) 27.2 ml/min Est GFR (Non-Af Amer) 23.4 ml/min BUN/Creatinine Ratio 21.2 H (10-20) Glucose 116 H (70-99(Fasting)) mg/dl Calcium 9.4 (8.6-10.3) mg/dl Phosphorus 3.5 (2.5-4.9) mg/dl Magnesium 2.1 (1.7-2.4) mg/dl Urine Color Yellow Urine Appearance Cloudy A (Clear) Urine pH 5.5 (4.5-7.5) Ur Specific [place] 1.014 (1.000-1.030) Urine Protein 2+ H (Negative) Urine Glucose (UA) Negative (Negative) Urine Ketones Negative (Negative) Urine Blood 2+ H (Negative) Urine Nitrite Positive A (Negative) Urine Bilirubin Negative (Negative) Urine Urobilinogen Negative (Negative) Ur Leukocyte Esterase 3+ H (Negative) Urine WBC (Auto) >30 H (0-5) /hpf Urine RBC (Auto) 5-10 H (0-4) /hpf U Hyaline Cast (Auto) 1-5 (0-5) /lpf U Epithel Cells (Auto) 10-20 H (0-5) /lpf Urine Bacteria (Auto) 2+ H (Negative) Medications Administered Current Inpatient Medications Acetaminophen (Acetaminophen 325 Mg Tab) 650 mg PO Q4H PRN PRN Reason: Pain or Fever Stop: 10/12/23 22:19 Last Admin: 09/13/23 23:27 Dose: 650 mg Buspirone HCl (Buspirone 5 Mg Tab) 5 mg PO BID PRN PRN Reason: Anxiety Stop: 10/12/23 22:19 Last Admin: 09/13/23 20:46 Dose: 5 mg Clopidogrel Bisulfate (Clopidogrel Bisulfate 75 Mg Tab) 75 mg PO QAM [facility] Stop: 10/13/23 08:59 Last Admin: 09/13/23 09:15 Dose: 75 mg Famotidine (Famotidine 20 Mg Tab) 20 mg PO DAILY [facility] Stop: 10/13/23 08:59 Last Admin: 09/13/23 09:16 Dose: 20 mg Fexofenadine HCl (Fexofenadine Hcl 180 Mg Tab) 180 mg PO DAILY PRN PRN Reason: allergies Stop: 10/12/23 22:19 Last Admin: 09/14/23 02:33 Dose: 180 mg Fluticasone Propionate (Fluticasone Propionate Na Spr 16 Gm Btl) 2 sprays NA QAM [facility] Stop: 10/13/23 08:59 Last Admin: 09/13/23 09:16 Dose: 2 sprays Hydroxyurea (Hydroxyurea 500 Mg Cap) 500 mg PO MoTuWeThFr@0900 [facility] Stop: 10/13/23 08:59 Last Admin: 09/13/23 09:16 Dose: 500 mg Ertapenem 500 mg/ Syringe 5 mls @ 2 mls/min IV Q24H [facility] Stop: 09/24/23 04:59 Last Admin: 09/14/23 04:27 Dose: 2 mls/min Ipratropium [place] (Ipratropium Staples Nasal [place] 0.06% 15ml) 1 sprays SAIRA BID PRN PRN Reason: RHINITIS Stop: 10/12/23 23:27 Isosorbide Mononitrate (Isosorbide [place] Extended Rel 60 Mg Tabcr) 60 mg PO QAM [facility] Stop: 10/13/23 08:59 Last Admin: 09/13/23 09:16 Dose: 60 mg Lactobacillus Acidophilus (Advanced Probiotic 1250 Mg Capsule) 2 cap PO DAILY [facility] Stop: 10/13/23 08:59 Last Admin: 09/13/23 09:16 Dose: 2 cap Losartan Potassium (Losartan Potassium 25 Mg Tab) 12.5 mg PO QAM [facility] Stop: 10/13/23 08:59 Last Admin: 09/13/23 09:16 Dose: 12.5 mg Menthol (Cough Drop (Sugar Free) Prince 24 Prince/1 Box) 1 prince BUCCAL PRN PRN PRN Reason: Sore Throat Stop: 10/14/23 02:11 Last Admin: 09/14/23 02:33 Dose: 1 prince Metoprolol Succinate (Metoprolol Succ 50mg Ext Rel Tab) 100 mg PO BID [facility] Stop: 10/12/23 22:19 Last Admin: 09/13/23 20:06 Dose: 100 mg Ondansetron HCl (Ondansetron Inj 2 Mg/Ml 2 Ml Vial) 4 mg IV Q6H PRN PRN Reason: Nausea Stop: 10/12/23 22:19 Polyethylene Glycol (Polyethylene (Miralax) 17 Gm Pack) 17 gm PO DAILY PRN PRN Reason: Constipation Stop: 10/12/23 22:19 Rosuvastatin Calcium (Rosuvastatin Calcium 20 Mg Tab) 20 mg PO QPM [facility] Stop: 10/12/23 22:19 Last Admin: 09/13/23 20:05 Dose: 20 mg Warfarin Sodium (Warfarin Sod 2.5 Mg Tab) 2.5 mg PO WE@0900 [facility] Stop: 10/13/23 08:59 Last Admin: 09/13/23 09:16 Dose: 2.5 mg Warfarin Sodium (Warfarin Sod 1.25 Mg Tab) 1.25 mg PO SUMOTUTHFRSA@0900 [facility] Stop: 10/14/23 08:59 (3) CAD (coronary atherosclerotic disease) Associated angina: with unspecified form of angina Coronary Disease- Associated Artery/Lesion type: unspecified vessel or lesion type [place] vs. transplanted heart: [place] heart Qualified Code(s): I25.119 - Atherosclerotic heart disease of [place] coronary artery with unspecified angina pectoris
[2023-09-14 08:06] LABS: Hematocrit (blood only) 33.7 % (37.0-47.0); Hemoglobin 10.8 g/dl (12.0-16.0); Mean Corpuscular Hemoglobin 34.3 pg (25.0-34.0); Mean Platelet Volume 11.7 fL (9.4-12.4); Platelet Count 229 K/uL (130-400); RDW Coefficient of Variation 16.5 % (11.5-14.5); RDW Standard Deviation 64.9 fL (36.4-46.3); Red Blood Count 3.15 M/uL (4.20-5.40); White Blood Count 6.88 K/ul (4.8-10.8)
[2023-09-14 08:30] LABS: INR 3.1 (0.9-1.1); Prothrombin Time 31.4 Seconds (9.0-12.0)
[2023-09-14 08:33] LABS: BUN Creatinine Ratio 21.2 (10-20); Calcium 9.4 mg/dl (8.6-10.3); Creatinine Clr Calc Pharmacy 19.3 ml/min; Est GFR (African American) 27.2 ml/min; Est GFR (Non-African American) 23.4 ml/min; Magnesium 2.1 mg/dl (1.7-2.4); Phosphorus 3.5 mg/dl (2.5-4.9); Potassium 3.8 mmol/L (3.5-5.1)
[2023-09-14] MEDS: CLOPIDOGREL BISULFATE 75 MG TAB PO SCH (08:41)
[2023-09-14] MEDS: FAMOTIDINE 20 MG TAB PO SCH (08:41)
[2023-09-14] MEDS: ISOSORBIDE MONO EXTENDED REL 60 MG TABCR PO SCH (08:42)
[2023-09-14] MEDS: ADVANCED PROBIOTIC 1250 MG CAPSULE PO SCH (08:42)
[2023-09-14] MEDS: HYDROXYUREA 500 MG CAP PO SCH (08:42)
[2023-09-14] MEDS: LOSARTAN POTASSIUM 25 MG TAB PO SCH (08:43)
[2023-09-14] MEDS: METOPROLOL SUCC 50MG EXT REL TAB PO SCH ×2 (08:43→21:05)
[2023-09-14] MEDS: WARFARIN SOD 1.25 MG TAB PO SCH (08:44)
[2023-09-14] MEDS: FLUTICASONE PROPIONATE NA SPR 16 GM BTL SCH (09:42)
--- NOTE | 2023-09-14 11:19 | Cardiology Progress Note ---
Date of Service September 14, 2023 Assessment & Plan (1) Chronic hypoxic respiratory failure: (2) Acute on chronic heart failure with reduced ejection fraction and diastolic dysfunction: (3) ASCVD (arteriosclerotic cardiovascular disease): Plan IMPRESSION: Medically complex 88 year old female with PMH notable for ICM with mildly reduced systolic function, SSS s/p ppm with recent generator change 07/2023, s/p AVR presented with acute on chronic hypoxic respiratory failure. Cause of shortness of breath likely multifactorial given underlying pulmonary disease exacerbated by acute on chronic combined CHF. Patient does not appear markedly volume overloaded and looks to have responded well to IV Lasix x1. Patient has known CKD with a baseline scr around 2. PLAN: Creatinine improved. No furosemide today. INR 3.1 Continue antibiotics. Admission and Anticipated Discharge Date Admission Date: September 12, 2023 Subjective Patient seen in cardiology follow up. Patient feeling improved from a shortness of breath, cough, and edema standpoint. Telemetry reveals rate controlled AF in the 60s to 70s , with occasional ventricular pacing. Physical Exam Constitutional: no acute distress Neck: normal visual inspection and trachea midline Respiratory: + cough and + tachypneic (with exertion) Auscultation: + rhonchi and + wheezes; no rales Cardiovascular: Rate/Rhythm: regular rate and regular rhythm Heart Sounds: normal S1, normal S2 and + murmur (+systolic murmur) Vessels: + JVD (mild ) Extremities: + edema (+2 BLLE pitting edema) Chest (Breasts): Chest: + pacemaker (left chest ) Gastrointestinal (Abdomen): Inspection/Auscultation: + abdomen distended Percussion/Palpation: + abdomen firm; abdomen nontender Skin: no rashes, warm and dry Psychiatric: A+Ox3, euthymic affect (TORRES MARTINEZ) Results & Data Vital Signs (Past 12 Hours) Vital Signs Temp Pulse Resp BP Pulse Ox O2 Del Method O2 Flow Rate 09/14/23 07:44 36.4 C L 77 18 123/77 98 Nasal Cannula 2.5 09/14/23 02:38 36.7 C 78 20 107/62 99 Nasal Cannula Diagnostic Findings Coagulation 09/14/23 Range/Units 07:47 PT 31.4 H (9.0-12.0) Seconds CBC 09/14/23 Range/Units 07:47 WBC 6.88 (4.8-10.8) K/ul RBC 3.15 L (4.20-5.40) M/uL Hgb 10.8 L (12.0-16.0) g/dl Hct 33.7 L (37.0-47.0) % Plt Count 229 (130-400) K/uL Comprehensive Metabolic Panel 09/14/23 Range/Units 07:47 Sodium 145 (136-145) mmol/L Potassium 3.8 D (3.5-5.1) mmol/L Chloride 104 (98-107) mmol/L Carbon Dioxide 34 H (21-32) mmol/L BUN 40 H (6-23) mg/dl Creatinine 1.89 H (0.6-1.2) mg/dl Glucose 116 H (70-99(Fasting)) mg/dl Calcium 9.4 (8.6-10.3) mg/dl Intake and Output 09/13/23 09/14/23 09/14/23 22:59 06:59 14:59 Intake Total 200 / 440 Output Total 351 / 1231 180 / 1231 Balance -151 / -791 -180 / -791 - Intake: Oral 200 / 440 Output: Urine Amount (Catheter) 350 / 1230 180 / 1230 [place]/Indwelling 350 / 1230 180 / 1230 # Bowel Movements Other: # Unmeasured Voids 10 23 Weight 79.4 kg 79.3 kg Weight Measurement Method Standing Scale
--- NOTE | 2023-09-14 13:01 | Electrocardiogram Report ---
Test Reason : Blood Pressure : / mmHG Vent. Rate : 076 BPM Atrial Rate : 036 BPM P-R Int : 000 ms QRS Dur : 122 ms QT Int : 414 ms P-R-T Axes : 000 -58 052 degrees QTc Int : 465 ms Atrial fibrillation with frequent ventricular-paced complexes Left axis deviation Right bundle branch block Minimal voltage criteria for LVH, may be normal variant Septal infarct , age undetermined T wave abnormality, consider lateral ischemia Abnormal ECG When compared with ECG of 12-SEP-2023 15:02, (unconfirmed) Electronic ventricular pacemaker has replaced Atrial fibrillation Confirmed by Ishmael Hooks ([id number]) on 09/14/2023 1:01:11 PM Referred By: REFERRED SELF Confirmed By:Ishmael Hooks
[2023-09-14] MEDS: ROSUVASTATIN CALCIUM 20 MG TAB PO SCH (21:05)
[2023-09-14] MEDS: busPIRone 5 MG TAB PO PRN (23:22)
[2023-09-15] MEDS ORDERED: POTASSIUM CHLORIDE CRTAB 20 MEQ TABCR PO STA (00:37)
[2023-09-15] MEDS: ERTAPENEM SODIUM 500 MG in SYRINGE 0 ML IV SCH (04:49)
[2023-09-15 07:02] LABS: Hematocrit (blood only) 34.5 % (37.0-47.0); Hemoglobin 10.8 g/dl (12.0-16.0); Mean Corpuscular Hemoglobin 33.8 pg (25.0-34.0); Mean Corpuscular Hgb Conc 31.3 g/dL (32.0-36.0); Mean Corpuscular Volume 107.8 fL (80.0-100.0); Mean Platelet Volume 11.6 fL (9.4-12.4); Platelet Count 240 K/uL (130-400); RDW Coefficient of Variation 16.6 % (11.5-14.5); RDW Standard Deviation 65.3 fL (36.4-46.3); White Blood Count 7.92 K/ul (4.8-10.8)
[2023-09-15 07:28] LABS: BUN Creatinine Ratio 21.3 (10-20); Calcium 9.3 mg/dl (8.6-10.3); Creatinine Clr Calc Pharmacy 21.1 ml/min; Est GFR (Non-African American) 25.9 ml/min; Phosphorus 3.3 mg/dl (2.5-4.9); Potassium 3.9 mmol/L (3.5-5.1)
--- NOTE | 2023-09-15 07:35 | Cardiology Progress Note ---
Date of Service September 15, 2023 Assessment & Plan (1) Chronic hypoxic respiratory failure: (2) Acute on chronic heart failure with reduced ejection fraction and diastolic dysfunction: (3) ASCVD (arteriosclerotic cardiovascular disease): Plan IMPRESSION: Medically complex 88 year old female with PMH notable for ICM with mildly reduced systolic function, SSS s/p ppm with recent generator change 07/2023, s/p AVR presented with acute on chronic hypoxic respiratory failure. Cause of shortness of breath likely multifactorial given underlying pulmonary disease exacerbated by acute on chronic combined CHF. Patient does not appear markedly volume overloaded and looks to have responded well to IV Lasix x1. Patient has known CKD with a baseline scr around 2. PLAN: Combined ICM/HFrEF/HFpEF: Volume status improved--Lasix currently held. Normally maintains on Torsemide 20 mg daily and will resume today, 09/15/23. Monitor renal function and electrolytes with daily BMP. Potassium goal of 4.0 and mag goal of 2.0. Strict I&O. Daily standing weights. 2g sodium diet. Continue GDMT with metoprolol succinate 100 mg BID, Losartan 12.5 mg daily, and Imdur 60 mg daily. Continue Plavix 75 mg daily-- not on ASA due to Coumadin use. Continue Statin. Chronic hypoxic resp failure: Likely multifactorial cause given underlying pulmonary disease-- will defer to primary team regarding management. Continue antibiotics. Titration of supplemental o2 as tolerated, normally maintains on 2L at home. Permanent atrial fibrillation/status post permanent pacemaker: Rate controlled atrial fibrillation with occasional ventricular pacing. PPM in place for SSS with recent gen change in 07/2023 Continue beta buddy and Coumadin as ordered. INR goal between 2.0-3.0. INR today 3.8 AVR: Hx of bioprosthetic AVR-- gradients stable on echo this admission. Case was discussed with Dr. Richardson, will follow. I spent a total of 30 minutes on the date of service in preparation, delivery, and documentation of the care provided to this patient, excluding any time spent in the performance of separately billed services. Admission and Anticipated Discharge Date Admission Date: September 12, 2023 Supervising Physician Co-Signing Physician Notes Supervising Physician Attestation: I have personally performed a history and physical examination on the patient. I agree with the WATER RESOURCES PROJECT MANAGER's findings and plan as documented with the following additions. Subjective: Patient with ongoing concerns of cough. Notes that she is short of breath, but per description of not sure that is much different than her baseline. She states that she is feeling overall improved and she is eager for discharge Exam: Pulmonary: Lungs clear to auscultation bilaterally Cardiovascular: irregular rhythm, no murmurs, no edema Data: INR 3.8 Creatinine 1.74 Assessment and Plan: -Hold coumadin for INR > 3 -Resume HORTICULTURE PROFESSOR torsemide 20 mg daily . Cardiology to sign off. Dr Goyal rounding on 09/16/23, call with questions or concerns. I spent a total of 20 minutes on the date of service in preparation, delivery, and documentation of the care provided to this patient, excluding any time spent in the performance of separately billed services. Joe Richardson, DO Subjective Medically complex 88 year old female with PMH notable for ICM with mildly reduced systolic function, SSS s/p ppm with recent generator change 07/2023, s/p AVR presented with to [facility] emergency department on 09/13/2023 with acute on chronic hypoxic respiratory failure secondary to underlying pulmonary disease exacerbated by acute on chronic combined CHF. 09/13/2023: Patient remained mildly hypervolemic, given an additional 40 mg of IV Lasix. Echocardiogram stable compared to previous with mild LV systolic dysfunction 09/14/2023: Volume status improved--IV Lasix held. 09/15/2023: Upon entrance into the room patient asleep in bed. Head of bed flat. Woke easily. No acute concerns. Denies any acute events over night. No chest pain. Notes an improvement in her shortness of breath. O2 requirements at baseline. Denies orthopnea or PND. No lower extremity edema. No abdominal bloating. Labs: Stable renal function creatinine 1.74, baseline around 2.0. Potassium stable. I&O: -1L Weight:84.1 kg >> 80.3 kg Review of Systems Review of Systems: All systems reviewed & are unremarkable except as noted in HPI & below Physical Exam Constitutional: WD/WN, vitals as above no acute distress Respiratory: normal respiratory effort; no labored breathing and no cough Auscultation: + wheezes Cardiovascular: Rate/Rhythm: regular rate and regular rhythm Heart Sounds: normal S1, normal S2 and + murmur (+systolic murmur) Extremities: no edema Chest (Breasts): Chest: + pacemaker (left chest ) Gastrointestinal (Abdomen): Inspection/Auscultation: abdomen not distended Percussion/Palpation: + abdomen firm; abdomen nontender Skin: no rashes, warm and dry Psychiatric: A+Ox3, euthymic affect ([place]) Results & Data Vital Signs (Past 12 Hours) Vital Signs Temp Pulse Pulse Resp BP Pulse Ox O2 Del Method 09/15/23 06:00 85 09/15/23 03:29 36.7 C 84 20 138/83 97 Nasal Cannula 09/14/23 23:19 37.0 C 81 20 140/83 99 Nasal Cannula 09/14/23 21:58 83 09/14/23 20:00 Nasal Cannula 09/14/23 19:41 36.6 C 76 18 122/76 100 Nasal Cannula O2 Flow Rate 09/15/23 06:00 09/15/23 03:29 2.5 09/14/23 23:19 2.5 09/14/23 21:58 09/14/23 20:00 2 09/14/23 19:41 2.5 Laboratory Results Coagulation 09/15/23 Range/Units 06:45 PT 37.9 H (9.0-12.0) Seconds CBC 09/15/23 Range/Units 06:45 WBC 7.92 (4.8-10.8) K/ul RBC 3.20 L (4.20-5.40) M/uL Hgb 10.8 L (12.0-16.0) g/dl Hct 34.5 L (37.0-47.0) % Plt Count 240 (130-400) K/uL Comprehensive Metabolic Panel 09/15/23 Range/Units 06:45 Sodium 144 (136-145) mmol/L Potassium 3.9 (3.5-5.1) mmol/L Chloride 105 (98-107) mmol/L Carbon Dioxide 33 H (21-32) mmol/L BUN 37 H (6-23) mg/dl Creatinine 1.74 H (0.6-1.2) mg/dl Glucose 128 H (70-99(Fasting)) mg/dl Calcium 9.3 (8.6-10.3) mg/dl Intake and Output 09/14/23 09/15/23 09/15/23 22:59 06:59 14:59 Intake Total 440 / 940 Output Total 251 / 252 Balance 189 / 688 Intake: Oral 440 / 940 Output: Urine Amount (Catheter) 250 / 250 External 250 / 250 # Bowel Movements 1 / 2 Other: Other Intake Source sips 150 # Unmeasured Voids 1 4 Weight 80.3 kg Weight Measurement Method Built in [facility]
[2023-09-15 07:45] LABS: INR 3.8 (0.9-1.1); Prothrombin Time 37.9 Seconds (9.0-12.0)
--- NOTE | 2023-09-15 08:16 | Hospitalist Progress Note ---
Date of Service September 15, 2023 Assessment & Plan (1) Acute on chronic heart failure with reduced ejection fraction and diastolic dysfunction: (2) Chronic hypoxic respiratory failure: (3) CAD (coronary atherosclerotic disease): (4) Status post transcatheter aortic valve replacement (TAVR) using bioprosthesis: (5) Chronic atrial fibrillation: (6) Multiple lacunar infarcts: (7) Current use of exterminator helper termite 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: (8) Pacemaker: (9) CKD (chronic kidney disease), stage III: (10) ASCVD (arteriosclerotic cardiovascular disease): (11) Essential thrombocythemia: (12) Heart failure with improved ejection fraction (HFimpEF): Plan This is a 88yo F with a PMH of chronic hypoxic respiratory failure on 2L [place] O2, HFimpEF, dyslipidemia, pacemaker placement in Jul 2023, HTN, CAD (s/p TAMI 2006), paroxysmal atrial fibrillation and h/o AV replacement on coumadin, CKD III, RLS, essential thrombocythemia and other medical problems who was sent in from PCP's office with acute decompensated CHF. HFimpEF S/p AVR, Valvular heart disease H/o pulmonary hypertension Presenting with increased dyspnea on exertion and edema x 2 weeks Currently on 20mg Torsemide at home, follows with Dr. Raphael and DAVID Calvo H/o ischemic cardiomyopathy but 2D echo from February 2023 with preserved EF 55-59%, AV bioprosthesis present, mod MR, mod-severe tricuspid regurg, compared to previous shows slight increase in pulm pressure of 45mmhg Appears clinically volume overloaded, BNP 490 Given 40 mg IV Lasix in ED, cont. with 40 IV lasix next day -> will hold now (pt responded well) - back on home dose torsemide 20 Cardiology consulted, repeated 2D echo -moderate concentric LVH in the segments with normal wall motion. There is a large sized apical septal anteroseptal inferior and posterior wall motion abnormality with hypokinesis to akinesis of the segments. LVEF 40 to 45%. There is bioprosthetic aortic valve. Trivial bioprosthetic aortic valve regurg. Gradient is normal for his prosthetic aortic valve. There is moderate to severe mitral regurg. Severe tricuspid regurg. Pulmonary artery systolic pressure is estimated to be 37 mmHg. Compared to the report of the previous study dated April 2023, there is no significant change Low sodium diet, I&Os, daily weights H/O GAVIN Chronic hypoxic resp failure Intolerance to CPAP Chronic oxygen dependency Continue supplemental oxygen at 2L NC O2 Recurrent angina Coronary artery disease S/P CABG, Stents Chronic troponin elevation Chronic, stable. Continue Toprol, Crestor, Plavix, Imdur History of ESBL E coli UTI Asymptomatic on admission After [place] placed she had discomfort and requested it to be removed UA and ucultx checked overnight - UA concerning for UTI Empiric ertapenem started by music typographer, will cont. for now Pt denies any urinary discomfort after [place] removed Keep on contact precautions Follow urine cultx - urine cultx - Gram negat. bacilli CKD III Cr 2.05 at baseline (Cr ~ high 1s-2) Monitor with daily BMP Current Cr 1.7 SSS s/p PPM Paroxysmal atrial fibrillation Continue Toprol, coumadin for 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. Currently coumadin dose 2.5mg Mon, 1.25mg all other days. Hold today as INR 3.8 H/o CVA, PVD Continue Plavix, statin next DM II Diet controlled HbA1c 6.2 in May 2023 Essential thrombocythemia Continue Hydrea Daily CBC DVT Ppx: Coumadin Code status: FULL PCP: Dr. Frederick Dispo: PCU Admission and Anticipated Discharge Date Admission Date: September 12, 2023 Subjective Pt seen in follow up of worsening hypoxia, CHF exacerbation received IV lasix on admission and yesterday AM -> responded well, hold now cardiology consulted and following Pt on chronic coumadin Currently laying in bed flat, in NAD Says she feels better but still has cough Denies chest pain, palpitations or shortness of breath at this time Review of Systems Review of Systems: All systems reviewed & are unremarkable except as noted in Subjective Physical Exam Physical Exam: CONSTITUTIONAL: obese elderly F , generally well-appearing, NAD, on RA EYES: normal conjunctivae, no scleral icterus ENT: external ear and nose normal NECK: trachea midline RESPIRATORY: clear to auscultation bilaterally with decreased breath sounds at bases, no crackles, rales or wheezes, normal respiratory effort, no conversational dyspnea at rest. + mild LE edema (improved) CARDIOVASCULAR: regular rate and rhythm, S1 and 2 heard without murmurs,trace LE edema CHEST: inspection of chest was normal GASTROINTESTINAL: soft, nontender, ND, no guarding MUSCULOSKELETAL: strength 5/5 throughout, head is normocephalic and atraumatic SKIN: warm and dry NEUROLOGIC: awake alert oriented, answers appropriately, normal speech, no tremor, moves extremities Results & Data Results & Data Vital Signs (Past 12 Hours) Vital Signs Temp Pulse Pulse Resp BP Pulse Ox O2 Del Method 09/15/23 07:44 36.5 C 75 19 118/80 96 Nasal Cannula 09/15/23 06:00 85 09/15/23 03:29 36.7 C 84 20 138/83 97 Nasal Cannula 09/14/23 23:19 37.0 C 81 20 140/83 99 Nasal Cannula 09/14/23 21:58 83 O2 Flow Rate 09/15/23 07:44 2.5 09/15/23 06:00 09/15/23 03:29 2.5 09/14/23 23:19 2.5 09/14/23 21:58 Laboratory Results 09/15/23 09/14/23 Range/Units 06:45 07:47 WBC 7.92 (4.8-10.8) K/ul RBC 3.20 L (4.20-5.40) M/uL Hgb 10.8 L (12.0-16.0) g/dl Hct 34.5 L (37.0-47.0) % MCV 107.8 H (80.0-100.0) fL MCH 33.8 (25.0-34.0) pg MCHC 31.3 L (32.0-36.0) g/dL RDW Std Deviation 65.3 H (36.4-46.3) fL RDW Coeff of Ge 16.6 H (11.5-14.5) % Plt Count 240 (130-400) K/uL MPV 11.6 (9.4-12.4) fL PT 37.9 H 31.4 H (9.0-12.0) Seconds INR 3.8 H 3.1 H (0.9-1.1) Sodium 144 145 (136-145) mmol/L Potassium 3.9 3.8 D (3.5-5.1) mmol/L Chloride 105 104 (98-107) mmol/L Carbon Dioxide 33 H 34 H (21-32) mmol/L Anion Gap 6 7 (3-11) BUN 37 H 40 H (6-23) mg/dl Creatinine 1.74 H 1.89 H (0.6-1.2) mg/dl Est Cr Clr Drug Dosing 21.1 19.3 ml/min Est GFR ( Amer) 30.0 27.2 ml/min Est GFR (Non-Af Amer) 25.9 23.4 ml/min BUN/Creatinine Ratio 21.3 H 21.2 H (10-20) Glucose 128 H 116 H (70-99(Fasting)) mg/dl Calcium 9.3 9.4 (8.6-10.3) mg/dl Phosphorus 3.3 3.5 (2.5-4.9) mg/dl Magnesium 2.0 2.1 (1.7-2.4) mg/dl Medications Administered Current Inpatient Medications Acetaminophen (Acetaminophen 325 Mg Tab) 650 mg PO Q4H PRN PRN Reason: Pain or Fever Stop: 10/12/23 22:19 Last Admin: 09/13/23 23:27 Dose: 650 mg Buspirone HCl (Buspirone 5 Mg Tab) 5 mg PO BID PRN PRN Reason: Anxiety Stop: 10/12/23 22:19 Last Admin: 09/14/23 23:22 Dose: 5 mg Clopidogrel Bisulfate (Clopidogrel Bisulfate 75 Mg Tab) 75 mg PO QAM [facility] Stop: 10/13/23 08:59 Last Admin: 09/14/23 08:41 Dose: 75 mg Famotidine (Famotidine 20 Mg Tab) 20 mg PO DAILY [facility] Stop: 10/13/23 08:59 Last Admin: 09/14/23 08:41 Dose: 20 mg Fexofenadine HCl (Fexofenadine Hcl 180 Mg Tab) 180 mg PO DAILY PRN PRN Reason: allergies Stop: 10/12/23 22:19 Last Admin: 09/14/23 02:33 Dose: 180 mg Fluticasone Propionate (Fluticasone Propionate Na Spr 16 Gm Btl) 2 sprays NA QAM [facility] Stop: 10/13/23 08:59 Last Admin: 09/14/23 09:42 Dose: 2 sprays Hydroxyurea (Hydroxyurea 500 Mg Cap) 500 mg PO [id number]@0900 [facility] Stop: 10/13/23 08:59 Last Admin: 09/14/23 08:42 Dose: 500 mg Ertapenem 500 mg/ Syringe 5 mls @ 2 mls/min IV Q24H [facility] Stop: 09/24/23 04:59 Last Admin: 09/15/23 04:49 Dose: 2 mls/min Ipratropium Adams (Ipratropium Adams Nasal [place] 0.06% 15ml) 1 sprays SAIRA BID PRN PRN Reason: RHINITIS Stop: 10/12/23 23:27 Isosorbide Mononitrate (Isosorbide [place] Extended Rel 60 Mg Tabcr) 60 mg PO QAM [facility] Stop: 10/13/23 08:59 Last Admin: 09/14/23 08:42 Dose: 60 mg Lactobacillus Acidophilus (Advanced Probiotic 1250 Mg Capsule) 2 cap PO DAILY [facility] Stop: 10/13/23 08:59 Last Admin: 09/14/23 08:42 Dose: 2 cap Losartan Potassium (Losartan Potassium 25 Mg Tab) 12.5 mg PO QAM [facility] Stop: 10/13/23 08:59 Last Admin: 09/14/23 08:43 Dose: 12.5 mg Menthol (Cough Drop (Sugar Free) Prince 24 Prince/1 Box) 1 prince BUCCAL PRN PRN PRN Reason: Sore Throat Stop: 10/14/23 02:11 Last Admin: 09/14/23 02:33 Dose: 1 prince Metoprolol Succinate (Metoprolol Succ 50mg Ext Rel Tab) 100 mg PO BID [facility] Stop: 10/12/23 22:19 Last Admin: 09/14/23 21:05 Dose: 100 mg Ondansetron HCl (Ondansetron Inj 2 Mg/Ml 2 Ml Vial) 4 mg IV Q6H PRN PRN Reason: Nausea Stop: 10/12/23 22:19 Polyethylene Glycol (Polyethylene (Miralax) 17 Gm Pack) 17 gm PO DAILY PRN PRN Reason: Constipation Stop: 10/12/23 22:19 Rosuvastatin Calcium (Rosuvastatin Calcium 20 Mg Tab) 20 mg PO QPM [facility] Stop: 10/12/23 22:19 Last Admin: 09/14/23 21:05 Dose: 20 mg Warfarin Sodium (Warfarin Sod 2.5 Mg Tab) 2.5 mg PO WE@0900 [facility] Stop: 10/13/23 08:59 Last Admin: 09/13/23 09:16 Dose: 2.5 mg Warfarin Sodium (Warfarin Sod 1.25 Mg Tab) 1.25 mg PO SUMOTUTHFRSA@0900 [facility] Stop: 10/14/23 08:59 Last Admin: 09/14/23 08:44 Dose: 1.25 mg (3) CAD (coronary atherosclerotic disease) Associated angina: with unspecified form of angina Coronary Disease- Associated Artery/Lesion type: unspecified vessel or lesion type [place] vs. transplanted heart: [place] heart Qualified Code(s): I25.119 - Atherosclerotic heart disease of [place] coronary artery with unspecified angina pectoris
[2023-09-15] MEDS: CLOPIDOGREL BISULFATE 75 MG TAB PO SCH (08:21)
[2023-09-15] MEDS: METOPROLOL SUCC 50MG EXT REL TAB PO SCH ×2 (08:22→20:25)
[2023-09-15] MEDS: WARFARIN SOD 1.25 MG TAB PO SCH (08:22)
[2023-09-15] MEDS: LOSARTAN POTASSIUM 25 MG TAB PO SCH (08:23)
[2023-09-15] MEDS: FAMOTIDINE 20 MG TAB PO SCH (08:23)
[2023-09-15] MEDS: ISOSORBIDE MONO EXTENDED REL 60 MG TABCR PO SCH (08:23)
[2023-09-15] MEDS: ADVANCED PROBIOTIC 1250 MG CAPSULE PO SCH (08:23)
[2023-09-15] MEDS: FLUTICASONE PROPIONATE NA SPR 16 GM BTL SCH (08:23)
[2023-09-15] MEDS: HYDROXYUREA 500 MG CAP PO SCH (08:23)
[2023-09-15] MEDS: TORSEMIDE 20 MG TAB PO SCH (11:30)
[2023-09-15] MEDS ORDERED: SODIUM CHLORIDE 0.65% NA SOLN 45 ML (OCEAN) ONE (13:44)
[2023-09-15] MEDS: guaiFENesin 600 MG TABCR PO SCH ×2 (16:27→22:28)
[2023-09-15] MEDS: ROSUVASTATIN CALCIUM 20 MG TAB PO SCH (20:25)
[2023-09-16] MEDS: ERTAPENEM SODIUM 500 MG in SYRINGE 0 ML IV SCH (04:30)
[2023-09-16] MEDS: FAMOTIDINE 20 MG TAB PO SCH (07:36)
[2023-09-16] MEDS: guaiFENesin 600 MG TABCR PO SCH ×2 (07:36→19:43)
[2023-09-16] MEDS: TORSEMIDE 10 MG TAB PO SCH ×2 (07:37→10:44)
[2023-09-16] MEDS: METOPROLOL SUCC 50MG EXT REL TAB PO SCH ×2 (07:37→19:43)
[2023-09-16] MEDS: CLOPIDOGREL BISULFATE 75 MG TAB PO SCH (07:37)
[2023-09-16] MEDS: FEXOFENADINE HCL 180 MG TAB PO PRN (07:37)
[2023-09-16] MEDS: LOSARTAN POTASSIUM 25 MG TAB PO SCH (07:37)
[2023-09-16] MEDS: ISOSORBIDE MONO EXTENDED REL 60 MG TABCR PO SCH (07:37)
[2023-09-16] MEDS: FLUTICASONE PROPIONATE NA SPR 16 GM BTL SCH (07:38)
[2023-09-16] MEDS: ADVANCED PROBIOTIC 1250 MG CAPSULE PO SCH (07:38)
[2023-09-16] MEDS: TORSEMIDE 20 MG TAB PO SCH (07:39)
[2023-09-16 08:23] LABS: INR 3.7 (0.9-1.1); Prothrombin Time 37.3 Seconds (9.0-12.0)
--- NOTE | 2023-09-16 08:44 | Hospitalist Progress Note ---
Date of Service September 16, 2023 Assessment & Plan (1) Acute on chronic heart failure with reduced ejection fraction and diastolic dysfunction: (2) Chronic hypoxic respiratory failure: (3) CAD (coronary atherosclerotic disease): (4) Status post transcatheter aortic valve replacement (TAVR) using bioprosthesis: (5) Chronic atrial fibrillation: (6) Multiple lacunar infarcts: (7) Current use of intermediate manager 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: (8) Pacemaker: (9) CKD (chronic kidney disease), stage III: (10) ASCVD (arteriosclerotic cardiovascular disease): (11) Essential thrombocythemia: (12) Heart failure with improved ejection fraction (HFimpEF): Plan This is a 88yo F with a PMH of chronic hypoxic respiratory failure on 2L [place] O2, HFimpEF, dyslipidemia, pacemaker placement in Jul 2023, HTN, CAD (s/p TAMI 2006), paroxysmal atrial fibrillation and h/o AV replacement on coumadin, CKD III, RLS, essential thrombocythemia and other medical problems who was sent in from PCP's office with acute decompensated CHF. HFimpEF S/p AVR, Valvular heart disease H/o pulmonary hypertension Presenting with increased dyspnea on exertion and edema x 2 weeks Currently on 20mg Torsemide at home, follows with Dr. Raphael and DAVID Calvo H/o ischemic cardiomyopathy but 2D echo from February 2023 with preserved EF 55-59%, AV bioprosthesis present, mod MR, mod-severe tricuspid regurg, compared to previous shows slight increase in pulm pressure of 45mmhg Appears clinically volume overloaded, BNP 490 Given 40 mg IV Lasix in ED, cont. with 40 IV lasix next day -> will hold now (pt responded well) - back on home dose torsemide 20 Cardiology consulted, repeated 2D echo -moderate concentric LVH in the segments with normal wall motion. There is a large sized apical septal anteroseptal inferior and posterior wall motion abnormality with hypokinesis to akinesis of the segments. LVEF 40 to 45%. There is bioprosthetic aortic valve. Trivial bioprosthetic aortic valve regurg. Gradient is normal for his prosthetic aortic valve. There is moderate to severe mitral regurg. Severe tricuspid regurg. Pulmonary artery systolic pressure is estimated to be 37 mmHg. Compared to the report of the previous study dated April 2023, there is no significant change Low sodium diet, I&Os, daily weights H/O GAVIN Chronic hypoxic resp failure Intolerance to CPAP Chronic oxygen dependency Continue supplemental oxygen at 2L [place] O2 Recurrent angina Coronary artery disease S/P CABG, Stents Chronic troponin elevation Chronic, stable. Continue Toprol, Crestor, Plavix, Imdur History of ESBL E coli UTI Asymptomatic on admission After [place] placed she had discomfort and requested it to be removed UA and ucultx checked overnight - UA concerning for UTI Empiric ertapenem started by maintenance shop clerk, will cont. for now Pt denies any urinary discomfort after [place] removed Keep on contact precautions Current urine cultx - Gram negat. bacilli -> ESBL E.coli - will further discuss w/ ID if infection or colonization CKD III Cr 2.05 at baseline (Cr ~ high 1s-2) Monitor with daily BMP Current Cr 1.7 SSS s/p PPM Paroxysmal atrial fibrillation Continue Toprol, coumadin for 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. Currently coumadin dose 2.5mg Wed, 1.25mg all other days. Hold today as INR 3.7 H/o CVA, PVD Continue Plavix, statin next DM II Diet controlled HbA1c 6.2 in May 2023 Essential thrombocythemia Continue Hydrea Daily CBC DVT Ppx: Coumadin Code status: FULL PCP: Dr. Frederick Dispo: PCU Admission and Anticipated Discharge Date Admission Date: September 12, 2023 Subjective Pt seen in follow up of worsening hypoxia, CHF exacerbation received IV lasix initially cardiology consulted and following Pt on chronic coumadin, INR 3.7, hold warfarin today Currently sitting up in bed, in NAD Denies chest pain, palpitations or shortness of breath at this time Says she feels well. daughter at the bedside and discussing discharge. Review of Systems Review of Systems: All systems reviewed & are unremarkable except as noted in Subjective Physical Exam Physical Exam: CONSTITUTIONAL: obese elderly F , generally well-appearing, NAD, on RA EYES: normal conjunctivae, no scleral icterus ENT: external ear and nose normal NECK: trachea midline RESPIRATORY: clear to auscultation bilaterally with decreased breath sounds at bases, no crackles, rales or wheezes, normal respiratory effort, no conversational dyspnea at rest. + mild LE edema (improved) CARDIOVASCULAR: regular rate and rhythm, S1 and 2 heard without murmurs,trace LE edema CHEST: inspection of chest was normal GASTROINTESTINAL: soft, nontender, ND, no guarding MUSCULOSKELETAL: strength 5/5 throughout, head is normocephalic and atraumatic SKIN: warm and dry NEUROLOGIC: awake alert oriented, answers appropriately, normal speech, no tremor, moves extremities Results & Data Results & Data Vital Signs (Past 12 Hours) Vital Signs Temp Pulse Pulse Resp BP Pulse Ox O2 Del Method 09/16/23 07:43 36.7 C 77 18 122/62 95 Nasal Cannula 09/16/23 02:51 36.7 C 78 16 110/76 100 Nasal Cannula 09/15/23 23:00 36.8 C 76 16 115/78 100 Nasal Cannula 09/15/23 22:12 86 O2 Flow Rate 09/16/23 07:43 2 09/16/23 02:51 2 09/15/23 23:00 2 09/15/23 22:12 Medications Administered Current Inpatient Medications Acetaminophen (Acetaminophen 325 Mg Tab) 650 mg PO Q4H PRN PRN Reason: Pain or Fever Stop: 10/12/23 22:19 Last Admin: 09/13/23 23:27 Dose: 650 mg Buspirone HCl (Buspirone 5 Mg Tab) 5 mg PO BID PRN PRN Reason: Anxiety Stop: 10/12/23 22:19 Last Admin: 09/14/23 23:22 Dose: 5 mg Clopidogrel Bisulfate (Clopidogrel Bisulfate 75 Mg Tab) 75 mg PO QAM [facility] Stop: 10/13/23 08:59 Last Admin: 09/16/23 07:37 Dose: 75 mg Famotidine (Famotidine 20 Mg Tab) 20 mg PO DAILY [facility] Stop: 10/13/23 08:59 Last Admin: 09/16/23 07:36 Dose: 20 mg Fexofenadine HCl (Fexofenadine Hcl 180 Mg Tab) 180 mg PO DAILY PRN PRN Reason: allergies Stop: 10/12/23 22:19 Last Admin: 09/16/23 07:37 Dose: 180 mg Fluticasone Propionate (Fluticasone Propionate Na Spr 16 Gm Btl) 2 sprays NA QAM [facility] Stop: 10/13/23 08:59 Last Admin: 09/16/23 07:38 Dose: 2 sprays Guaifenesin (Guaifenesin 600 Mg Tabcr) 600 mg PO Q12 [facility] Stop: 10/15/23 15:34 Last Admin: 09/16/23 07:36 Dose: 600 mg Hydroxyurea (Hydroxyurea 500 Mg Cap) 500 mg PO MoTuWeThFr@0900 [facility] Stop: 10/13/23 08:59 Last Admin: 09/15/23 08:23 Dose: 500 mg Ertapenem 500 mg/ Syringe 5 mls @ 2 mls/min IV Q24H [facility] Stop: 09/24/23 04:59 Last Admin: 09/16/23 04:30 Dose: 2 mls/min Ipratropium [place] (Ipratropium [place] Nasal [place] 0.06% 15ml) 1 sprays SAIRA BID PRN PRN Reason: RHINITIS Stop: 10/12/23 23:27 Isosorbide Mononitrate (Isosorbide [place] Extended Rel 60 Mg Tabcr) 60 mg PO QAM [facility] Stop: 10/13/23 08:59 Last Admin: 09/16/23 07:37 Dose: 60 mg Lactobacillus Acidophilus (Advanced Probiotic 1250 Mg Capsule) 2 cap PO DAILY [facility] Stop: 10/13/23 08:59 Last Admin: 09/16/23 07:38 Dose: 2 cap Losartan Potassium (Losartan Potassium 25 Mg Tab) 12.5 mg PO QAM [facility] Stop: 10/13/23 08:59 Last Admin: 09/16/23 07:37 Dose: 12.5 mg Menthol (Cough Drop (Sugar Free) [place] 24 Prince/1 Box) 1 prince BUCCAL PRN PRN PRN Reason: Sore Throat Stop: 10/14/23 02:11 Last Admin: 09/14/23 02:33 Dose: 1 prince Metoprolol Succinate (Metoprolol Succ 50mg Ext Rel Tab) 100 mg PO BID [facility] Stop: 10/12/23 22:19 Last Admin: 09/16/23 07:37 Dose: 100 mg Ondansetron HCl (Ondansetron Inj 2 Mg/Ml 2 Ml Vial) 4 mg IV Q6H PRN PRN Reason: Nausea Stop: 10/12/23 22:19 Polyethylene Glycol (Polyethylene (Miralax) 17 Gm Pack) 17 gm PO DAILY PRN PRN Reason: Constipation Stop: 10/12/23 22:19 Rosuvastatin Calcium (Rosuvastatin Calcium 20 Mg Tab) 20 mg PO QPM [facility] Stop: 10/12/23 22:19 Last Admin: 09/15/23 20:25 Dose: 20 mg Torsemide (Torsemide 10 Mg Tab) 20 mg PO QAM [facility] Stop: 10/16/23 08:59 Torsemide (Torsemide 20 Mg Tab) 20 mg PO DAILY [facility] Stop: 10/15/23 10:59 Last Admin: 09/16/23 07:39 Dose: 20 mg Warfarin Sodium (Warfarin Sod 2.5 Mg Tab) 2.5 mg PO WE@0900 [facility] Stop: 10/13/23 08:59 Last Admin: 09/13/23 09:16 Dose: 2.5 mg Warfarin Sodium (Warfarin Sod 1.25 Mg Tab) 1.25 mg PO SUMOTUTHFRSA@0900 [facility] Stop: 10/14/23 08:59 Last Admin: 09/15/23 08:22 Dose: 1.25 mg (3) CAD (coronary atherosclerotic disease) Associated angina: with unspecified form of angina Coronary Disease-Associ ated Artery/Lesion type: unspecified vessel or lesion type [place] vs. transplanted heart: [place] heart Qualified Code(s): I25.119 - Atherosclerotic heart disease of [place] coronary artery with unspecified angina pectoris
[2023-09-16] MEDS: ROSUVASTATIN CALCIUM 20 MG TAB PO SCH (19:42)
[2023-09-16] MEDS: busPIRone 5 MG TAB PO PRN (23:35)
[2023-09-17 02:48] LABS: BUN Creatinine Ratio 18.8 (10-20); Calcium 9.3 mg/dl (8.6-10.3); Creatinine Clr Calc Pharmacy 18.9 ml/min; Est GFR (African American) 25.8 ml/min; Est GFR (Non-African American) 22.3 ml/min; Phosphorus 3.4 mg/dl (2.5-4.9); Potassium 4.1 mmol/L (3.5-5.1)
[2023-09-17 02:59] LABS: INR 3.4 (0.9-1.1); Prothrombin Time 34.8 Seconds (9.0-12.0)
[2023-09-17 03:45] LABS: Troponin I High Sensitivity 23.5 pg/ml (0-14)
[2023-09-17] MEDS: ERTAPENEM SODIUM 500 MG in SYRINGE 0 ML IV SCH (06:00)
--- NOTE | 2023-09-17 07:47 | Electrocardiogram Report ---
Test Reason : Blood Pressure : / mmHG Vent. Rate : 088 BPM Atrial Rate : 083 BPM P-R Int : 000 ms QRS Dur : 128 ms QT Int : 386 ms P-R-T Axes : 000 -05 -51 degrees QTc Int : 467 ms Atrial fibrillation Right bundle branch block T wave abnormality, consider inferolateral ischemia Abnormal ECG When compared with ECG of 14-SEP-2023 05:31, Electronic ventricular pacemaker no longer apparent Confirmed by Jonathon Bolden ([id number]) on 09/17/2023 7:46:49 AM Referred By: REFERRED SELF Confirmed By:Jonathon Bolden
[2023-09-17] MEDS: FAMOTIDINE 20 MG TAB PO SCH (08:00)
[2023-09-17] MEDS: ADVANCED PROBIOTIC 1250 MG CAPSULE PO SCH (08:00)
[2023-09-17] MEDS: METOPROLOL SUCC 50MG EXT REL TAB PO SCH ×2 (08:00→20:23)
[2023-09-17] MEDS: LOSARTAN POTASSIUM 25 MG TAB PO SCH (08:00)
[2023-09-17] MEDS: ISOSORBIDE MONO EXTENDED REL 60 MG TABCR PO SCH (08:00)
[2023-09-17] MEDS: TORSEMIDE 20 MG TAB PO SCH (08:00)
[2023-09-17] MEDS: guaiFENesin 600 MG TABCR PO SCH ×2 (08:01→20:24)
[2023-09-17] MEDS: CLOPIDOGREL BISULFATE 75 MG TAB PO SCH (08:01)
[2023-09-17] MEDS: FLUTICASONE PROPIONATE NA SPR 16 GM BTL SCH (08:01)
[2023-09-17] MEDS: TORSEMIDE 10 MG TAB PO SCH (08:02)
--- NOTE | 2023-09-17 10:27 | Hospitalist Progress Note ---
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 HFimpEF S/p AVR, Valvular heart disease H/o pulmonary hypertension Presenting with increased dyspnea on exertion and edema x 2 weeks Currently on 20mg Torsemide at home, follows with Dr. Raphael and DAVID Calvo H/o ischemic cardiomyopathy but 2D echo from February 2023 with preserved EF 55-59%, AV bioprosthesis present, mod MR, mod-severe tricuspid regurg, compared to previous shows slight increase in pulm pressure of 45mmhg Appears clinically volume overloaded, BNP 490 Given 40 mg IV Lasix in ED, cont. with 40 IV lasix next day -> will hold now (pt responded well) - back on home dose torsemide 20 Cardiology consulted, repeated 2D echo -moderate concentric LVH in the segments with normal wall motion. There is a large sized apical septal anteroseptal inferior and posterior wall motion abnormality with hypokinesis to akinesis of the segments. LVEF 40 to 45%. There is bioprosthetic aortic valve. Trivial bioprosthetic aortic valve regurg. Gradient is normal for his prosthetic aortic valve. There is moderate to severe mitral regurg. Severe tricuspid regurg. Pulmonary artery systolic pressure is estimated to be 37 mmHg. Compared to the report of the previous study dated April 2023, there is no significant change Low sodium diet, I&Os, daily weights H/O GAVIN Chronic hypoxic resp failure Intolerance to CPAP Chronic oxygen dependency Continue supplemental oxygen at 2L [place] O2 Recurrent angina Coronary artery disease S/P CABG, Stents Chronic troponin elevation Chronic, stable. Continue Toprol, Crestor, Plavix, Imdur History of ESBL E coli UTI Asymptomatic on admission After [place] placed she had discomfort and requested it to be removed UA and ucultx checked overnight - UA concerning for UTI Empiric ertapenem started by food and nutrition teacher, will cont. for now Pt denies any urinary discomfort after [place] removed Keep on contact precautions Current urine cultx - Gram negat. bacilli -> ESBL E.coli - will further discuss w/ ID if infection or colonization Currently received 4 doses of abx as of this AM - confirmed w/ pharmacy CKD III Cr 2.05 at baseline (Cr ~ high 1s-2) Monitor with daily BMP Current Cr 1.9 SSS s/p PPM Paroxysmal atrial fibrillation Continue Toprol, coumadin for 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. Currently coumadin dose 2.5mg Mon, 1.25mg all other days. Hold today as INR 3.4 H/o CVA, PVD Continue Plavix, statin next DM II Diet controlled HbA1c 6.2 in May 2023 Essential thrombocythemia Continue Hydrea Daily CBC DVT Ppx: Coumadin Code status: FULL PCP: Dr. Frederick Dispo: PCU Admission and Anticipated Discharge Date Admission Date: September 12, 2023 Subjective Pt seen in follow up of worsening hypoxia, CHF exacerbation received IV lasix initially cardiology consulted and following Pt on chronic coumadin, INR supratherap. hold warfarin today Currently laying in bed, in NAD Denies chest pain, palpitations or shortness of breath at this time Says she feels well. daughter at the bedside and discussing discharge. Pt received 4 doses or ertapenem as of this AM - confirmed w/ pharmacy over the phone. will further discuss w/ ID Review of Systems Review of Systems: All systems reviewed & are unremarkable except as noted in Subjective Physical Exam Physical Exam: CONSTITUTIONAL: obese elderly F , generally well-appearing, NAD, on RA EYES: normal conjunctivae, no scleral icterus ENT: external ear and nose normal NECK: trachea midline RESPIRATORY: clear to auscultation bilaterally with decreased breath sounds at bases, no crackles, rales or wheezes, normal respiratory effort, no conversational dyspnea at rest. + mild LE edema (improved) CARDIOVASCULAR: regular rate and rhythm, S1 and 2 heard without murmurs,trace LE edema CHEST: inspection of chest was normal GASTROINTESTINAL: soft, nontender, ND, no guarding MUSCULOSKELETAL: strength 5/5 throughout, head is normocephalic and atraumatic SKIN: warm and dry NEUROLOGIC: awake alert oriented, answers appropriately, normal speech, no tremor, moves extremities Results & Data Results & Data Vital Signs (Past 12 Hours) Vital Signs Temp Pulse Resp BP BP Pulse Ox O2 Del Method 09/17/23 07:24 36.8 C 81 18 98/63 L 98 Nasal Cannula 09/17/23 03:13 36.6 C 85 18 118/78 96 Nasal Cannula 09/16/23 23:11 36.8 C 82 18 139/79 98 Nasal Cannula O2 Flow Rate 09/17/23 07:24 2 09/17/23 03:13 2 09/16/23 23:11 2 Laboratory Results 09/17/23 Range/Units 02:14 PT 34.8 H (9.0-12.0) Seconds INR 3.4 H (0.9-1.1) Sodium 143 (136-145) mmol/L Potassium 4.1 (3.5-5.1) mmol/L Chloride 103 (98-107) mmol/L Carbon Dioxide 34 H (21-32) mmol/L Anion Gap 6 (3-11) BUN 37 H (6-23) mg/dl Creatinine 1.97 H (0.6-1.2) mg/dl Est Cr Clr Drug Dosing 18.9 ml/min Est GFR ( Amer) 25.8 ml/min Est GFR (Non-Af Amer) 22.3 ml/min BUN/Creatinine Ratio 18.8 (10-20) Glucose 164 H (70-99(Fasting)) mg/dl Calcium 9.3 (8.6-10.3) mg/dl Phosphorus 3.4 (2.5-4.9) mg/dl Magnesium 2.0 (1.7-2.4) mg/dl Troponin I High Sens 23.5 H (0-14) pg/ml Medications Administered Current Inpatient Medications Acetaminophen (Acetaminophen 325 Mg Tab) 650 mg PO Q4H PRN PRN Reason: Pain or Fever Stop: 10/12/23 22:19 Last Admin: 09/13/23 23:27 Dose: 650 mg Buspirone HCl (Buspirone 5 Mg Tab) 5 mg PO BID PRN PRN Reason: Anxiety Stop: 10/12/23 22:19 Last Admin: 09/16/23 23:35 Dose: 5 mg Clopidogrel Bisulfate (Clopidogrel Bisulfate 75 Mg Tab) 75 mg PO QAM [facility] Stop: 10/13/23 08:59 Last Admin: 09/17/23 08:01 Dose: 75 mg Famotidine (Famotidine 20 Mg Tab) 20 mg PO DAILY [facility] Stop: 10/13/23 08:59 Last Admin: 09/17/23 08:00 Dose: 20 mg Fexofenadine HCl (Fexofenadine Hcl 180 Mg Tab) 180 mg PO DAILY PRN PRN Reason: allergies Stop: 10/12/23 22:19 Last Admin: 09/16/23 07:37 Dose: 180 mg Fluticasone Propionate (Fluticasone Propionate Na Spr 16 Gm Btl) 2 sprays NA QAM [facility] Stop: 10/13/23 08:59 Last Admin: 09/17/23 08:01 Dose: 2 sprays Guaifenesin (Guaifenesin 600 Mg Tabcr) 600 mg PO Q12 [facility] Stop: 10/15/23 15:34 Last Admin: 09/17/23 08:01 Dose: 600 mg Hydroxyurea (Hydroxyurea 500 Mg Cap) 500 mg PO MoTuWeThFr@0900 [facility] Stop: 10/13/23 08:59 Last Admin: 09/15/23 08:23 Dose: 500 mg Ertapenem 500 mg/ Syringe 5 mls @ 2 mls/min IV Q24H [facility] Stop: 09/24/23 04:59 Last Admin: 09/17/23 06:00 Dose: 2 mls/min Ipratropium [place] (Ipratropium [place] Nasal [place] 0.06% 15ml) 1 sprays SAIRA BID PRN PRN Reason: RHINITIS Stop: 10/12/23 23:27 Isosorbide Mononitrate (Isosorbide [place] Extended Rel 60 Mg Tabcr) 60 mg PO QAM [facility] Stop: 10/13/23 08:59 Last Admin: 09/17/23 08:00 Dose: 60 mg Lactobacillus Acidophilus (Advanced Probiotic 1250 Mg Capsule) 2 cap PO DAILY [facility] Stop: 10/13/23 08:59 Last Admin: 09/17/23 08:00 Dose: 2 cap Losartan Potassium (Losartan Potassium 25 Mg Tab) 12.5 mg PO QAM [facility] Stop: 10/13/23 08:59 Last Admin: 09/17/23 08:00 Dose: 12.5 mg Menthol (Cough Drop (Sugar Free) [place] 24 Prince/1 Box) 1 prince BUCCAL PRN PRN PRN Reason: Sore Throat Stop: 10/14/23 02:11 Last Admin: 09/14/23 02:33 Dose: 1 prince Metoprolol Succinate (Metoprolol Succ 50mg Ext Rel Tab) 100 mg PO BID [facility] Stop: 10/12/23 22:19 Last Admin: 09/17/23 08:00 Dose: 100 mg Ondansetron HCl (Ondansetron Inj 2 Mg/Ml 2 Ml Vial) 4 mg IV Q6H PRN PRN Reason: Nausea Stop: 10/12/23 22:19 Polyethylene Glycol (Polyethylene (Miralax) 17 Gm Pack) 17 gm PO DAILY PRN PRN Reason: Constipation Stop: 10/12/23 22:19 Rosuvastatin Calcium (Rosuvastatin Calcium 20 Mg Tab) 20 mg PO QPM [facility] Stop: 10/12/23 22:19 Last Admin: 09/16/23 19:42 Dose: 20 mg Torsemide (Torsemide 20 Mg Tab) 20 mg PO DAILY [facility] Stop: 10/15/23 10:59 Last Admin: 09/17/23 08:00 Dose: 20 mg Warfarin Sodium (Warfarin Sod 2.5 Mg Tab) 2.5 mg PO WE@0900 [facility] Stop: 10/13/23 08:59 Last Admin: 09/13/23 09:16 Dose: 2.5 mg Warfarin Sodium (Warfarin Sod 1.25 Mg Tab) 1.25 mg PO SUMOTUTHFRSA@0900 [facility] Stop: 10/14/23 08:59 Last Admin: 09/15/23 08:22 Dose: 1.25 mg (3) CAD (coronary atherosclerotic disease) Associated angina: with unspecified form of angina Coronary Disease- Associated Artery/Lesion type: unspecified vessel or lesion type [place] vs. transplanted heart: [place] heart Qualified Code(s): I25.119 - Atherosclerotic heart disease of [place] coronary artery with unspecified angina pectoris
[2023-09-17] MEDS: POLYETHYLENE (MIRALAX) 17 GM PACK PO SCH (12:23)
[2023-09-17] MEDS: ROSUVASTATIN CALCIUM 20 MG TAB PO SCH (20:23)
[2023-09-17] MEDS: busPIRone 5 MG TAB PO PRN (22:43)
[2023-09-18] MEDS: ERTAPENEM SODIUM 500 MG in SYRINGE 0 ML IV SCH (05:36)
[2023-09-18 09:08] LABS: INR 2.8 (0.9-1.1); Prothrombin Time 28.3 Seconds (9.0-12.0)
[2023-09-18] MEDS: busPIRone 5 MG TAB PO PRN (09:18)
[2023-09-18] MEDS: METOPROLOL SUCC 50MG EXT REL TAB PO SCH (09:18)
[2023-09-18] MEDS: ADVANCED PROBIOTIC 1250 MG CAPSULE PO SCH (09:19)
[2023-09-18] MEDS: ISOSORBIDE MONO EXTENDED REL 60 MG TABCR PO SCH (09:20)
[2023-09-18] MEDS: FEXOFENADINE HCL 180 MG TAB PO PRN (09:20)
[2023-09-18] MEDS: FAMOTIDINE 20 MG TAB PO SCH (09:20)
[2023-09-18] MEDS: HYDROXYUREA 500 MG CAP PO SCH (09:21)
[2023-09-18] MEDS: CLOPIDOGREL BISULFATE 75 MG TAB PO SCH (09:21)
[2023-09-18] MEDS: guaiFENesin 600 MG TABCR PO SCH (09:22)
[2023-09-18] MEDS: FLUTICASONE PROPIONATE NA SPR 16 GM BTL SCH (09:22)
[2023-09-18] MEDS: LOSARTAN POTASSIUM 25 MG TAB PO SCH (09:22)
[2023-09-18] MEDS: POLYETHYLENE (MIRALAX) 17 GM PACK PO SCH (09:23)
[2023-09-18] MEDS: TORSEMIDE 20 MG TAB PO SCH (09:25)
--- NOTE | 2023-09-18 09:57 | Discharge Summary ---
Date of Service September 18, 2023 Admission HPI Per Admitting Provider This is a 88yo F with a PMH of chronic hypoxic respiratory failure on 2L NC O2, HFrEF, dyslipidemia, pacemaker placement in Jul 2023, HTN, CAD (s/p TAMI 2006), paroxysmal atrial fibrillation and h/o AV replacement on coumadin, CKD III, RLS, essential thrombocythemia and other medical problems who was sent in from PCP's office for CHF exacerbation. Patient has noted more abdominal bloating and swelling in lower extremities over the past 2 weeks. Lately can only walk 8-10 ft right before she becomes short of breath and at baseline can walk closer to 30 ft. Denies any dyspnea at rest. Is on 2L NC O2 at baseline but has been pushing it up to 3 L lately. Denies any issues when lying flat, no waking up at night coughing or gasping for air. No F/C, CP, dysuria or diarrhea. Chronic constipation at baseline but has improved with increased fiber in her diet. Admission Exam Per Admitting Provider On exam: 118/94, P 67, RR 24, T 36.6C, 100% on 3LPM via NC. CONSTITUTIONAL: obese, vitals as above, generally well-appearing, NAD EYES: normal conjunctivae, no scleral icterus ENT: external ear and nose normal, +JVD NECK: trachea midline RESPIRATORY: clear to auscultation bilaterally with decreased breath sounds at the right base, no crackles, rales or wheezes, normal respiratory effort, no conversational dyspnea at rest. CARDIOVASCULAR: regular rate and rhythm, S1 and 2 heard without murmurs, gallops or rubs, trace LE edema CHEST: inspection of chest was normal GASTROINTESTINAL: soft, nontender, ND, no guarding MUSCULOSKELETAL: strength 5/5 throughout, head is normocephalic and atraumatic SKIN: warm and dry NEUROLOGIC: CN 2-12 grossly intact, no sensory deficit, normal cognition, normal speech, no tremor PSYCHIATRIC: alert cooperative and oriented to person, place and time. Principal Diagnosis Acute on chronic heart failure with reduced ejection fraction and diastolic dysfunction Discharge Exam CONSTITUTIONAL: obese elderly F , generally well-appearing, NAD, on RA EYES: normal conjunctivae, no scleral icterus ENT: external ear and nose normal NECK: trachea midline RESPIRATORY: clear to auscultation bilaterally with decreased breath sounds at bases, no crackles, rales or wheezes, normal respiratory effort, no conversational dyspnea at rest. + mild LE edema (improved) CARDIOVASCULAR: regular rate and rhythm, S1 and 2 heard without murmurs,trace LE edema CHEST: inspection of chest was normal GASTROINTESTINAL: soft, nontender, ND, no guarding MUSCULOSKELETAL: strength 5/5 throughout, head is normocephalic and atraumatic SKIN: warm and dry NEUROLOGIC: awake alert oriented, answers appropriately, normal speech, no tremor, moves extremities Discharge Data Allergies Allergy/AdvReac Type Severity Reaction Status Date / Time amiodarone Allergy Severe EDEMA Verified 09/12/23 16:05 FACE/LIPS/TONGUE, RASH azithromycin [From Zithromax] Allergy Severe THROAT Verified 09/12/23 16:05 SWELLED, DENIED SHORT OF BREATH. adhesive Allergy Intermediate Rash Verified 09/12/23 16:05 etodolac Allergy Intermediate PRURITIS-IO Verified 09/12/23 16:05 DINE iodine Allergy Intermediate itching Verified 09/12/23 16:05 Penicillins Allergy Intermediate ITCHY RASH Verified 09/12/23 16:05 Sulfa (Sulfonamide Allergy Intermediate Rash Verified 09/12/23 16:05 Antibiotics) cephalexin [From Keflex] Allergy Unknown PER Verified 09/12/23 16:05 GMG--TRUE REACTION TO KEFLEX gabapentin AdvReac Intermediate sedation Verified 09/12/23 16:05 lisinopril AdvReac Intermediate Swelling Verified 09/12/23 16:05 of Lip/Tongue/Throat simvastatin AdvReac Unknown CAN'T Verified 09/12/23 16:05 REMEMBER Consultations 09/12/23 18:24 ED Decision to Admit Stat 09/12/23 20:16 Consult Cardiology Routine Hospital Course (1) Acute on chronic heart failure with reduced ejection fraction and diastolic dysfunction: (2) Chronic hypoxic respiratory failure: (3) CAD (coronary atherosclerotic disease): (4) Status post transcatheter aortic valve replacement (TAVR) using bioprosthesis: (5) Chronic atrial fibrillation: (6) Multiple lacunar infarcts: (7) Current use of 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: (8) Pacemaker: (9) CKD (chronic kidney disease), stage III: (10) ASCVD (arteriosclerotic cardiovascular disease): (11) Essential thrombocythemia: (12) Heart failure with improved ejection fraction (HFimpEF): Plan This is a 88yo F with a PMH of chronic hypoxic respiratory failure on 2L NC O2, HFimpEF, dyslipidemia, pacemaker placement in Jul 2023, HTN, CAD (s/p TAMI 2006), paroxysmal atrial fibrillation and h/o AV replacement on coumadin, CKD III, RLS, essential thrombocythemia and other medical problems who was sent in from PCP's office with acute decompensated CHF. HFimpEF S/p AVR, Valvular heart disease H/o pulmonary hypertension Presenting with increased dyspnea on exertion and edema x 2 weeks Currently on 20mg Torsemide at home, follows with Dr. Raphael and DAVID Calvo H/o ischemic cardiomyopathy but 2D echo from February 2023 with preserved EF 55-59%, AV bioprosthesis present, mod MR, mod-severe tricuspid regurg, compared to previous shows slight increase in pulm pressure of 45mmhg Appears clinically volume overloaded, BNP 490 Responded well to IV lasix in ED and while inpt -> back on home dose torsemide 20 Cardiology consulted, repeated 2D echo -moderate concentric LVH in the segments with normal wall motion. There is a large sized apical septal anteroseptal inferior and posterior wall motion abnormality with hypokinesis to akinesis of the segments. LVEF 40 to 45%. There is bioprosthetic aortic valve. Trivial bioprosthetic aortic valve regurg. Gradient is normal for his prosthetic aortic valve. There is moderate to severe mitral regurg. Severe tricuspid regurg. Pulmonary artery systolic pressure is estimated to be 37 mmHg. Compared to the report of the previous study dated April 2023, there is no significant change Low sodium diet, I&Os, daily weights H/O GAVIN Chronic hypoxic resp failure Intolerance to CPAP Chronic oxygen dependency Continue supplemental oxygen at 2L NC O2 Recurrent angina Coronary artery disease S/P CABG, Stents Chronic troponin elevation Chronic, stable. 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 for now Pt denies any urinary discomfort after [place] removed Keep on contact precautions Current urine cultx - Gram negat. bacilli -> ESBL E.coli - will further discuss w/ ID if infection or colonization Received 5 doses of abx Discussed w/ ID - this is bacteruria, colonization and no need for further abx CKD III Cr 2.05 at baseline (Cr ~ high 1s-2) Monitor with daily BMP Current Cr 1.9 SSS s/p PPM Paroxysmal atrial fibrillation Continue Toprol, coumadin for 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. Currently coumadin dose 2.5mg Wed, 1.25mg all other days. Supratherap. for past several days and so warfarin was held. Today (09/18/23) INR is 2.8 can resume low dose warfarin 1.25 mg daily. She should have INR checked in next 2-3 days. Closely follow w/ anticoag. clinic. H/o CVA, PVD Continue Plavix, statin next DM II Diet controlled HbA1c 6.2 in May 2023 Essential thrombocythemia Continue Hydrea Daily CBC Total Time Total Time Spent Total Time Spent (In Minutes): 40 Discharge Plan Discharge Items Patient Disposition: Home - Home Health Services Reason For Visit: SOB, CHF ACUTE ON CHRONIC RESP FAILURE Discharge Diagnosis: Acute on chronic heart failure with reduced ejection fraction and diastolic dysfunction Activity: Per Instructions section Non-emergency contact: Primary Care Provider Call non-emergency contact if: you have any medication questions and your symptoms worsen Follow-up/Referrals: Yaya Frederick MD [Primary Care Provider] - Diet: Heart Healthy and Low Sodium (2gm) Diet Texture: Easy to Chew Basilio Attending Provider Instructions: Follow up with primary care physician within 1 week. Your INR was elevated for the past several days. Take only lower dose of warfarin 1.25 mg daily for now and have your INR rechecked in next 2-3 days. Follow closely with 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 clinic. Basilio Carpet Layer Helper Provider Instructions: Call your Primary Care doctor if any of the following symptoms or problems start or get worse: * Shortness of breath or difficulty breathing * Wake up at night short of breath * Chest pain * Cough * Swelling of your hands, feet, or legs * More fatigued or tired with your normal activity * Palpitations - sudden fast heart beats WEIGHT * Weigh yourself every morning after using the bathroom. * Use the same scale. * Wear the same amount of clothing. * Write your weight down on a chart. * Call your Primary Care doctor if you gain more than 2-3 pounds in 1-2 days. MEDICATIONS * Use this discharge instruction sheet for medication instructions. * Take your medications at the time your doctor ordered. * Do not skip a dose of your medicines. * If you miss a dose of medicine, take it as soon as possible, but DO NOT DOUBLE A DOSE. * Read your medicine information when you get home. * Know all of the side effects of your medicine. If in doubt, ask your pharmacist * Call your Primary Care doctor's office if you have any side effects. * Be sure all of your doctors know what medicine and herbs you take (including cold, flu, and herbal medicine). Take the following with you to your follow-up doctor appointments: * Weight Chart * Medication List * List of questions Do not drink excessive alcohol, beer or wine. Pending Studies at Discharge: No Stand-Alone Forms: My [facility] [employer], Smoking Cessation Medications and DC Order Prescriptions: Continued hydroxyurea 500 mg capsule 500 mg PO [id number] Rx Instructions: TAKES MONDAY THROUGH MONDAY warfarin 2.5 mg tablet 2.5 mg PO WE@0900 fexofenadine [Lizzette Allergy] 180 mg Tablet 180 mg PO DAILY PRN (Reason: allergies) diphenhydramine HCl [Benadryl Allergy] 25 mg Tablet 25 mg PO Q4 PRN (Reason: allergies) nitroglycerin [Nitrostat] 0.4 mg Tablet, Sublingual 0.4 mg sublingual DIRECTED PRN (Reason: Chest Pain) mometasone 50 mcg/actuation spray,non-aerosol 2 spray INTRANASAL QAM ipratropium bromide 21 mcg (0.03 %) spray,non-aerosol 2 spray INTRANASAL BID PRN (Reason: RHINITIS) isosorbide mononitrate 60 mg Tablet Extended Release 24 Hr 60 mg PO QAM Qty: 30 0RF torsemide 20 mg tablet 20 mg PO DAILY Qty: 30 0RF famotidine 20 mg Tablet 20 mg PO DAILY rosuvastatin 20 mg tablet 20 mg PO QPM Probiotic 5 billion cell Capsule, Sprinkle 1 cap PO DAILY metoprolol succinate 100 mg tablet extended release 24 hr 100 mg PO BID warfarin 2.5 mg tablet 1.25 mg PO SUMOTUTHFRSA@0900 clopidogrel 75 mg Tablet 75 mg PO QAM Qty: 30 1RF losartan 25 mg Tablet 12.5 mg PO QAM Qty: 30 0RF Hold Instructions: Till you see your primary care doctor and repeat basic metabolic panel. buspirone 5 mg tablet 5 mg PO BID PRN (Reason: Anxiety) azelastine 137 mcg (0.1 %) Aerosol,[place] 1 spray INTRANASAL BID PRN (Reason: allergies) Rx Instructions: administer into each nostril Discharge Orders: Discharge Order- CHF (Routine); Ordered 09/18/23 Ordered By: Rafael Keller Admission Data Admit Date/Time: 09/12/23 18:34 Attending Provider: Rafael Keller Admit Provider: Kacie Andre Primary Care Provider: Yaya Frederick Other Providers: Joe Richardson; Kacie Andre; [facility]
== END 2023-09-18 15:31 | disposition home health service (06) | DRG 291 ==
LOC: ED 14:47 → EDINP 18:34 → SUATTDRO 18:34 → 2S 22:20

== ENCOUNTER 2023-12-12 01:13 | Inpatient (IN) ==
[2023-12-12] MEDS: ONDANSETRON INJ 2 MG/ML 2 ML VIAL IV STA ×2 (02:30→02:31)
[2023-12-12] MEDS: fentaNYL citrate PF 100 MCG/2 ML VIAL IV STA ×2 (02:30→04:12)
[2023-12-12 02:40] LABS: Basophils # (auto) 0.07 K/uL (0.00-0.20); Basophils % (auto) 0.9 %; Eosinophils # (auto) 0.28 K/uL (0.00-0.50); Eosinophils % (auto) 3.4 %; Hematocrit (blood only) 38.3 % (37.0-47.0); Hemoglobin 11.9 g/dl (12.0-16.0); Immature Granulocytes # (auto) 0.04 K/uL (0.01-0.20); Immature Granulocytes % (auto) 0.5 %; Lymphocytes # (auto) 0.46 K/uL (1.20-3.40); Lymphocytes % (auto) 5.6 %; Mean Corpuscular Hgb Conc 31.1 g/dL (32.0-36.0); Mean Corpuscular Volume 112.6 fL (80.0-100.0); Mean Platelet Volume 11.4 fL (9.4-12.4); Monocytes # (auto) 0.94 K/uL (0.11-0.59); Monocytes % (auto) 11.5 %; Neutrophils # (auto) 6.39 K/uL (1.40-6.50); Neutrophils % (auto) 78.1 %; Platelet Count 177 K/uL (130-400); RDW Coefficient of Variation 17.4 % (11.5-14.5); RDW Standard Deviation 70.8 fL (36.4-46.3); White Blood Count 8.18 K/ul (4.8-10.8)
[2023-12-12 02:58] LABS: Macrocytosis Present
[2023-12-12 03:13] LABS: Alanine Aminotransferase 12 U/L (7-52); Albumin Globulin Ratio 0.9 (0.9-2); Alkaline Phosphatase 152 U/L (34-104); Anion Gap 7 (3-11); BUN Creatinine Ratio 22.3 (10-20); Bilirubin,Total 1.2 mg/dl (0.2-1.0); Blood Urea Nitrogen 43 mg/dl (6-23); Calcium 9.9 mg/dl (8.6-10.3); Carbon Dioxide 34 mmol/L (21-32); Chloride 98 mmol/L (98-107); Est GFR (African American) 26.5 ml/min; Est GFR (Non-African American) 22.9 ml/min; Globulin 4.5 gm/dl (2.5-4.0); Glucose 175 mg/dl (70-99(Fasting)); Sodium 139 mmol/L (136-145); Total Protein 8.5 gm/dl (6.0-8.3)
[2023-12-12 04:16] LABS: Potassium 4.7 mmol/L (3.5-5.1)
--- NOTE | 2023-12-12 04:25 | CT Scan Report ---
Exam(s): CT ABDOMEN + PELVIS Without Contrast EXAM: CT Abdomen and Pelvis Without Intravenous Contrast CLINICAL HISTORY: Reason for exam: eval for left sided kidney stone. TECHNIQUE: Axial computed tomography images of the abdomen and pelvis without intravenous contrast. CTDI is 27.14 mGy and DLP is 1291 mGy-cm. Automated exposure control was utilized for the study. A dose lowering technique was utilized adhering to the principles of ALARA. COMPARISON: CT January 29, 2023 FINDINGS: Limitations: Mildly limited by diffuse motion. Pleural space: Small bilateral pleural effusions. ABDOMEN: Liver: Unremarkable. Gallbladder and bile ducts: Small gallstones. No ductal dilation. Pancreas: Unremarkable. No ductal dilation. Spleen: Unremarkable. No splenomegaly. Adrenals: Unremarkable. No mass. Kidneys and ureters: Moderate degree of left hydronephrosis with a 6 mm obstructing calculus in the proximal left ureter. Stomach and bowel: Diverticulosis without diverticulitis. No obstruction. PELVIS: Appendix: No findings to suggest acute appendicitis. Bladder: Unremarkable. No stones. ABDOMEN and PELVIS: Intraperitoneal space: Unremarkable. No free air. No significant fluid collection. Bones/joints: No acute findings. Soft tissues: Unremarkable. Vasculature: Heavy calcification of the aorta and its major branches. No evidence of aneurysm. Lymph nodes: Unremarkable. No enlarged lymph nodes. IMPRESSION: Moderate degree of left hydronephrosis with a 6 mm obstructing calculus in the proximal left ureter. Electronically signed by: Wang Mccollum MD 12/12/23 04:24 AM
[2023-12-12 05:55] LABS: Appearance Urine Turbid (Clear); Bacteria Urine Automated 2+ (Negative); Bilirubin Urine Negative (Negative); Blood Urine 3+ (Negative); Color Urine Yellow; Epithelial Cell Urine Auto >30 /lpf (0-5); Glucose Urine UA Negative (Negative); Ketones Urine Negative (Negative); Leukocyte Esterase Urine 3+ (Negative); Nitrite Urine Negative (Negative); Protein Urine 1+ (Negative); Specific Gravity Urine 1.012 (1.000-1.030); Urobilinogen Urine Negative (Negative); WBC Urine Automated >30 /hpf (0-5); pH Urine 5.5 (4.5-7.5)
[2023-12-12 06:51] LABS: INR 2.5 (0.9-1.1); Prothrombin Time 26.2 Seconds (9.0-12.0)
[2023-12-12] MEDS ORDERED: NITROGLYCERIN SL 0.4 MG/TAB TAB SL PRN (06:54)
[2023-12-12] MEDS ORDERED: POLYETHYLENE (MIRALAX) 17 GM PACK PO PRN (06:54)
[2023-12-12] MEDS ORDERED: ONDANSETRON INJ 2 MG/ML 2 ML VIAL IV PRN (06:54)
[2023-12-12] MEDS: HYDROmorphone INJ 0.5 MG/0.5 ML SYR IV STA (06:55)
[2023-12-12] MEDS: SODIUM CHLORIDE 0.9% 500 ML IV ONE (06:55)
[2023-12-12] MEDS: AZTREONAM 2,000 MG in DEXTROSE 5% MINI-B 100 ML IV STA (06:56)
[2023-12-12] MEDS: Patient's HEIGHT &/or WEIGHT Needed SCH (07:13)
[2023-12-12 07:50] LABS: Basophils # (auto) 0.05 K/uL (0.00-0.20); Basophils % (auto) 0.5 %; Eosinophils # (auto) 0.08 K/uL (0.00-0.50); Eosinophils % (auto) 0.7 %; Hematocrit (blood only) 35.7 % (37.0-47.0); Immature Granulocytes # (auto) 0.06 K/uL (0.01-0.20); Immature Granulocytes % (auto) 0.6 %; Lymphocytes # (auto) 0.36 K/uL (1.20-3.40); Lymphocytes % (auto) 3.3 %; Mean Corpuscular Hemoglobin 34.4 pg (25.0-34.0); Mean Corpuscular Hgb Conc 30.8 g/dL (32.0-36.0); Mean Corpuscular Volume 111.6 fL (80.0-100.0); Mean Platelet Volume 11.5 fL (9.4-12.4); Monocytes # (auto) 0.97 K/uL (0.11-0.59); Neutrophils # (auto) 9.29 K/uL (1.40-6.50); Neutrophils % (auto) 85.9 %; Nucleated RBC # (auto) 0.02 K/uL (0.00-0.12); Nucleated RBC % (auto) 0.2 %; Platelet Count 162 K/uL (130-400); RDW Coefficient of Variation 17.4 % (11.5-14.5); RDW Standard Deviation 71.4 fL (36.4-46.3); White Blood Count 10.81 K/ul (4.8-10.8)
--- NOTE | 2023-12-12 07:54 | Urology Consultation ---
Date of Consultation December 12, 2023 Assessment & Plan (1) Left ureteral calculus: (2) RADHA (acute kidney injury): (3) Complicated UTI (urinary tract infection): Plan 88yo F with an obstructing left ureteral stone and concern for UTI. Afebrile, normotensive, tachycardic. Labs reviewed - WBC 10.81, Hemoglobin 11.0, Creatinine 2.07. Urinalysis suggestive of infection. Urine culture pending. Given the obstructing ureteral stone and concern for infection, we discussed left ureteral stent placement Ureteral stents were discussed in detail Discussed need for stone treatment at a later date Discussed plan of care with patient's son Jonathan. Will proceed with cystoscopy, retrograde pyelogram and left ureteral stent placement today Keep NPO for procedure Risks and benefits to be reviewed with patient by Dr. Castellano Covered with scheduled IV Ertapenem Continue with supportive care and medical management per primary team will follow History of Present Illness Attending Physician: Brigido Hinson MD History of Present Illness 88-year-old female with PMHx including chronic hypoxemic respiratory failure on oxygen, hyperlipidemia, obstructive sleep apnea, history of CAD s/p stent, sinus node dysfunction s/p pacemaker, heart failure with reduced ejection fraction, asymptomatic bilateral carotid artery stenosis, hypertension, chronic atrial fibrillation, CKD stage III, restless leg syndrome, bilateral leg edema, essential thrombocythemia, s/p aortic valve replacement, lumbar spinal stenosis who presented to the ED with severe back and left flank pain. On arrival she was afebrile and hemodynamically stable. Labs showing no leukocytosis and a creatinine of 1.93. Urinalysis with 3+ blood, 3+ LE, 2+ bacteria. Urine culture pending. CT abdomen pelvis noted a moderate degree of left hydronephrosis with a 6 mm obstructing calculus in the proximal left ureter. ED course: IVF, Fentanyl, Zofran, Dilaudid, Ertapenem. Patient admitted to medicine service for continued care and management. Patient examined at bedside this AM. Asleep on arrival, awakened to name. No acute distress. Hard of hearing. Reports pain has improved with medication. No fevers. Voiding spontaneously without issue. Pt had applesauce for medication administration around 11:30AM. Denies prior urological hx. Denies hx of stones. Allergies Allergy/AdvReac Type Severity Reaction Status Date / Time amiodarone Allergy Severe EDEMA Verified 09/12/23 16:05 FACE/LIPS/TONGUE, RASH azithromycin [From Zithromax] Allergy Severe THROAT Verified 09/12/23 16:05 SWELLED, DENIED SHORT OF BREATH. adhesive Allergy Intermediate Rash Verified 09/12/23 16:05 etodolac Allergy Intermediate PRURITIS-IO Verified 09/12/23 16:05 DINE iodine Allergy Intermediate itching Verified 09/12/23 16:05 Penicillins Allergy Intermediate ITCHY RASH Verified 09/12/23 16:05 Sulfa (Sulfonamide Allergy Intermediate Rash Verified 09/12/23 16:05 Antibiotics) cephalexin [From Keflex] Allergy Unknown PER Verified 09/12/23 16:05 GMG--TRUE REACTION TO KEFLEX gabapentin AdvReac Intermediate sedation Verified 09/12/23 16:05 lisinopril AdvReac Intermediate Swelling Verified 09/12/23 16:05 of Lip/Tongue/Throat simvastatin AdvReac Unknown CAN'T Verified 09/12/23 16:05 REMEMBER Home Medications Medication Instructions Recorded Confirmed Type acidophilus 25 million 2 tab PO DAILY 12/12/23 12/12/23 History cell-pectin, citrus 100 mg tablet buspirone 5 mg tablet 5 mg PO BID 12/12/23 12/12/23 History clopidogrel 75 mg tablet 75 mg PO DAILY 12/12/23 12/12/23 History clotrimazole-betamethasone 1 1 applic topical BID 12/12/23 12/12/23 History %-0.05 % topical cream famotidine 20 mg tablet 20 mg PO DAILY 12/12/23 12/12/23 History hydroxyurea 500 mg capsule 500 mg PO UD 12/12/23 12/12/23 History isosorbide mononitrate 60 mg 60 mg PO DAILY 12/12/23 12/12/23 History tablet,extended release 24 hr lactulose 10 gram/15 mL oral 15 ml PO TID 12/12/23 12/12/23 History solution metoprolol succinate 100 mg 150 mg PO BID 12/12/23 12/12/23 History tablet,extended release 24 hr mometasone 50 mcg/actuation nasal 1 spray intranasal DAILY 12/12/23 12/12/23 History spray potassium chloride 20 mEq 20 meq PO BID 12/12/23 12/12/23 History tablet,extended release(part/cryst) rosuvastatin 20 mg tablet 20 mg PO DAILY 12/12/23 12/12/23 History torsemide 20 mg tablet 80 mg PO DAILY 12/12/23 12/12/23 History warfarin 1 mg tablet 1 mg PO DAILY 12/12/23 12/12/23 History Patient History Medical History (Updated 12/12/23 @ 07:53 by ELIN Flores) Coronary artery disease with angina pectoris CKD (chronic kidney disease), stage III Chronic diastolic CHF (congestive heart failure) Cardiac pacemaker in situ Sinus node dysfunction ASCVD (arteriosclerotic cardiovascular disease) 2006 - CABG x 3, bioproesthetic aortic valve replacement 2006 - PCI and stenting to SVG to RCA occlusion Atrial fibrillation, persistent Current use of correction 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 Tinnitus of left ear Sensorineural hearing loss of both ears HLD (hyperlipidemia) HTN (hypertension) Essential thrombocythemia CKD (chronic kidney disease) stage 2, GFR 60-89 ml/min UTI due to extended-spectrum beta lactamase (ESBL) producing Escherichia coli Generalized weakness Anemia 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) [place]placement of aortic [place] (Unknown[place] [place] Dermatitis Carotid artery occlusion (Unknown) Surgical History (Updated 10/19/23 @ 00:07 by Emily Jasso) Status post transcatheter aortic valve replacement (TAVR) using bioprosthesis History of colonoscopy with polypectomy History of cystoscopy History of tubal ligation Total abdominal hysterectomy with bilateral salpingo-oophorectomy (Unknown) Stented coronary artery (Unknown) Placement of stent in coronary artery (Unknown) "RCA December 2006 " Implantation of aortic valve prosthesis or synthetic device (Unknown) Coronary artery bypass grafting (Unknown) [place] [place] VARGHESE to LAD SVG's to diagonal, obtuse marginal, RCA " Family History Father Prostate cancer Mother Diabetes Sister Coronary heart disease Social History Smoking Status: Never smoker Second Hand Exposure: No; Do You Dip or Chew Tobacco: No; Hx Alcohol Use: No Hx Substance Use: No Preferred Language: Estonian Communication Ability: Effective Visual Impairment: No Limitations Hearing Ability: Normal Dialysis Registered Nurse Required: No Beliefs That Will Affect Care: None marital status: / Current Living Situation: Alone Feels Safe at Home: Yes Assistive Devices: Hearing Aid - Bilateral, Oxygen - Continuous and Walker Review of Systems Review of Systems: All systems reviewed & are unremarkable except as noted in HPI & below Physical Exam Constitutional: no acute distress ENMT: Ears: + hearing impairment Respiratory: no respiratory distress and no labored breathing Musculoskeletal: Head/Neck/Chest: normocephalic Skin: No visible rashes or lesions to exposed skin areas Neurologic: moves all extremities and awake Psychiatric: Orientation: alert, oriented x 3 and cooperative Results & Data Vital Signs (Past 12 Hours) Vital Signs Temp Pulse Resp BP Pulse Ox Pulse Ox O2 Del Method 12/12/23 06:54 94 12/12/23 02:25 94 H 12/12/23 01:19 36.5 C 94 H 22 138/93 97 Nasal Cannula O2 Del Method O2 Flow Rate 12/12/23 06:54 Room Air 12/12/23 02:25 12/12/23 01:19 3 PG Care Time/CCT Total # of Minutes Spent Total Time Spent with Patient: Total time spent is greater than 50% in coordination of care (as documented) at patient's floor/unit and/or counseling patient: Coding Level of Care Code 76262 INT INP/OBS CARE 2/55MIN Diagnoses Left ureteral calculus N20.1 RADHA (acute kidney injury) N17.9 Complicated UTI (urinary tract infection) N39.0
[2023-12-12] MEDS: SODIUM CHLORIDE 0.9% 1,000 ML IV SCH ×2 (08:00→20:56)
[2023-12-12 08:07] LABS: BUN Creatinine Ratio 20.8 (10-20); Calcium 9.1 mg/dl (8.6-10.3); Creatinine Clr Calc Pharmacy 18.2 ml/min; Est GFR (African American) 24.3 ml/min; Magnesium 1.8 mg/dl (1.7-2.4); Potassium 4.6 mmol/L (3.5-5.1)
--- NOTE | 2023-12-12 08:22 | Emergency Department Note ---
Impression & Plan Hydronephrosis with renal and ureteral calculus obstruction Admit to the [facility] ED Provider Note NAME: SARAH HOLMAN AGE: 88 SEX: Female INFORMANT: Patient ED PROVIDER(S): Nery Gross DO CHIEF COMPLAINT: Left flank pain PLAN: Disposition: Admit to the [facility] MEDICAL DECISION MAKING: This is an 88-year-old female patient who was sleeping and awoke around 8:30 PM with sudden onset of left flank pain. She has never had discomfort like this before. She was nauseated and diaphoretic. She tried drinking some milk and eating cookies but got no relief. Urinalysis was positive for blood. She went for CT scan of the abdomen pelvis which showed a 6 mm left-sided ureteral stone with hydronephrosis. Patient required multiple doses of IV fentanyl for pain relief and Zofran for nausea control. Patient's son voiced to me his concern about the patient living alone as he and other family members have suggested the patient may need social service evaluation for an assisted living facility. Laboratory studies revealed hematuria. There was no leukocytosis noted. The patient was mildly anemic with a hemoglobin of 11.9. BUN was 43. Creatinine was 1.93. Glucose was elevated at 175. I discussed the case with the [facility] and they will evaluate for further inpatient care. Care/management discussed with: The patient's son, senior software development manager, [facility] Triage Nursing notes: Reviewed and agree with them. Vital Signs: reviewed and unremarkable Additional History obtained from: The son who is at the bedside Chronic Medical/Social Conditions affecting care: Patient has an extensive past medical history Prior/ Outside/ External records reviewed: None Differential Diagnosis: Pyelonephritis, ureteral colic, diverticulitis, musculoskeletal pain Diagnostics, independently interpreted by me: Imaging studies: CT scan of the abdomen/pelvis: As per stat rad HPI: 88 year old Female arrives for evaluation of left flank pain. Patient was sleeping when she woke at 8:30 PM with severe left flank pain and nausea. Patient went to the kitchen and began to eat drink some milk and eat some cookies when she became increasingly nauseated and vomited. She began to sweat. She called EMS and they transported her here. She has never had pain like this before. PAST MEDICAL HISTORY: See Below, PAST SURGICAL HISTORY: See Below, SOCIAL HISTORY: See Below, HOME MEDICATIONS: See list ALLERGIES: See long list VITALS: See Below PHYSICAL EXAMINATION: HEENT: Head - normocephalic and atraumatic. Pupils are equal, round, and reactive to light. Extraocular eye muscles are intact, and sclera are anicteric. Nose - moist nasal mucosa without discharge. Mouth - moist buccal mucosa. Oropharynx is nonerythematous and there is no tonsillar exudate or edema noted. Neck: Supple; no nuchal rigidity, cervical lymphadenopathy, or auscultated bruits. Heart: Regular rate and rhythm. There is a normal S1 and S2 with no murmurs, clicks, or gallops appreciated. Lungs: Clear to auscultation bilaterally with no wheezes, rales, or rhonchi. Abdomen: Soft, moderate left CVA tenderness and left mid abdominal pain with palpation. There are good bowel sounds. There are no palpable pulsatile masses or hepatosplenomegaly. There is no guarding, rigidity, or rebound noted. Extremities: No evidence of cyanosis, clubbing, or edema. There are easily palpable peripheral pulses. Skin: Diaphoretic, warm with good turgor and no rashes. Emergency department course: The patient was evaluated in room A-10. A complete history and physical was performed. Patient was bolused with IV normal saline solution. She was started on normal saline drip. She was given a dose of IV fentanyl for pain and Zofran for nausea. A urine specimen was collected. She went for CT scan of the abdomen/pelvis. Patient was much more comfortable at this time. I reviewed the results with the patient and her son. I discussed the case with the [facility]. Past Med/Surg History Medical History Coronary artery disease with angina pectoris CKD (chronic kidney disease), stage III Chronic diastolic CHF (congestive heart failure) Cardiac pacemaker in situ Sinus node dysfunction ASCVD (arteriosclerotic cardiovascular disease) 2005 - CABG x 3, bioproesthetic aortic valve replacement 2006 - PCI and stenting to SVG to RCA occlusion Atrial fibrillation, persistent Current use of alf 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 Tinnitus of left ear Sensorineural hearing loss of both ears HLD (hyperlipidemia) HTN (hypertension) Essential thrombocythemia CKD (chronic kidney disease) stage 2, GFR 60-89 ml/min UTI due to extended-spectrum beta lactamase (ESBL) producing Escherichia coli Generalized weakness Anemia 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) [place]placement of [place]Unknown[place] [place] Dermatitis Carotid artery occlusion (Unknown) Surgical History Status post transcatheter aortic valve replacement (TAVR) using bioprosthesis History of colonoscopy with polypectomy History of cystoscopy History of tubal ligation Total abdominal hysterectomy with bilateral salpingo-oophorectomy (Unknown) Stented coronary artery (Unknown) Placement of stent in coronary artery (Unknown) "RCA December 2006 " Implantation of aortic valve prosthesis or synthetic device (Unknown) Coronary artery bypass grafting (Unknown) [place] [place] VARGHESE to LAD SVG's to diagonal, obtuse marginal, RCA " Family History Father Prostate cancer Mother Diabetes Sister Coronary heart disease Social History Smoking Status: Never smoker Second Hand Exposure: No; Do You Dip or Chew Tobacco: No; Hx Alcohol Use: No Hx Substance Use: No Preferred Language: Citizen Of [place] Communication Ability: Impaired Visual Impairment: No Limitations Hearing Ability: Normal Machine I Cutter Required: No Beliefs That Will Affect Care: None marital status: / Current Living Situation: Alone Feels Safe at Home: Yes Assistive Devices: Oxygen - Continuous and Walker Allergies Allergies Allergy/AdvReac Type Severity Reaction Status Date / Time amiodarone Allergy Severe EDEMA Verified 09/12/23 16:05 FACE/LIPS/TONGUE, RASH azithromycin [From Zithromax] Allergy Severe THROAT Verified 09/12/23 16:05 SWELLED, DENIED SHORT OF BREATH. adhesive Allergy Intermediate Rash Verified 09/12/23 16:05 etodolac Allergy Intermediate PRURITIS-IO Verified 09/12/23 16:05 DINE iodine Allergy Intermediate itching Verified 09/12/23 16:05 Penicillins Allergy Intermediate ITCHY RASH Verified 09/12/23 16:05 Sulfa (Sulfonamide Allergy Intermediate Rash Verified 09/12/23 16:05 Antibiotics) cephalexin [From Keflex] Allergy Unknown PER Verified 09/12/23 16:05 [facility] [place]--TRUE REACTION TO KEFLEX gabapentin AdvReac Intermediate sedation Verified 09/12/23 16:05 lisinopril AdvReac Intermediate Swelling Verified 09/12/23 16:05 of Lip/Tongue/Throat simvastatin AdvReac Unknown CAN'T Verified 09/12/23 16:05 REMEMBER Home Meds Home Medications Medication Instructions Recorded Confirmed acidophilus 25 million 2 tab PO DAILY 12/12/23 12/12/23 cell-pectin, citrus 100 mg tablet buspirone 5 mg tablet 5 mg PO BID 12/12/23 12/12/23 clopidogrel 75 mg tablet 75 mg PO DAILY 12/12/23 12/12/23 clotrimazole-betamethasone 1 1 applic topical BID 12/12/23 12/12/23 %-0.05 % topical cream famotidine 20 mg tablet 20 mg PO DAILY 12/12/23 12/12/23 hydroxyurea 500 mg capsule 500 mg PO UD 12/12/23 12/12/23 isosorbide mononitrate 60 mg 60 mg PO DAILY 12/12/23 12/12/23 tablet,extended release 24 hr lactulose 10 gram/15 mL oral 15 ml PO TID 12/12/23 12/12/23 solution metoprolol succinate 100 mg 150 mg PO BID 12/12/23 12/12/23 tablet,extended release 24 hr mometasone 50 mcg/actuation nasal 1 spray intranasal DAILY 12/12/23 12/12/23 spray potassium chloride 20 mEq 20 meq PO BID 12/12/23 12/12/23 tablet,extended release(part/cryst) rosuvastatin 20 mg tablet 20 mg PO DAILY 12/12/23 12/12/23 torsemide 20 mg tablet 80 mg PO DAILY 12/12/23 12/12/23 warfarin 1 mg tablet 1 mg PO DAILY 12/12/23 12/12/23 Results & Data (ED) Vital Signs Vital Signs - 24 hr 12/12/23 01:19 12/12/23 02:25 Temperature 36.5 C Temperature Source Temporal Artery Scan Pulse Rate 94 H 94 H Respiratory Rate 22 Respiratory Effort / Characteristics Non-Labored Spontaneous Respiratory Depth Normal Blood Pressure 138/93 Blood Pressure Mean 108 Pulse Oximetry 97 Oxygen Delivery Method Nasal Cannula Oxygen Flow Rate 3 Sepsis Recent Fever Within 48 Hours No Sepsis New/Unexplained Change in Mental Status N/A Sepsis Action Taken by Nursing No Action Required Laboratory Data 12/13/23 06:51 12/13/23 06:51 Lab Results 12/12/23 12/12/23 12/12/23 Range/Units 02:00 02:18 03:50 WBC 8.18 (4.8-10.8) K/ul RBC 3.40 L (4.20-5.40) M/uL Hgb 11.9 L (12.0-16.0) g/dl Hct 38.3 (37.0-47.0) % MCV 112.6 H (80.0-100.0) fL MCH 35.0 H (25.0-34.0) pg MCHC 31.1 L (32.0-36.0) g/dL RDW Std Deviation 70.8 H (36.4-46.3) fL RDW Coeff of Ge 17.4 H (11.5-14.5) % Plt Count 177 (130-400) K/uL MPV 11.4 (9.4-12.4) fL Immature Gran % (Auto) 0.5 % Neut % (Auto) 78.1 % Lymph % (Auto) 5.6 % [place] % (Auto) 11.5 % Eos % (Auto) 3.4 % Baso % (Auto) 0.9 % Neut # (Auto) 6.39 (1.40-6.50) K/uL Lymph # (Auto) 0.46 L (1.20-3.40) K/uL [place] # (Auto) 0.94 H (0.11-0.59) K/uL Eos # (Auto) 0.28 (0.00-0.50) K/uL Baso # (Auto) 0.07 (0.00-0.20) K/uL Immature Gran # (Auto) 0.04 (0.01-0.20) K/uL Macrocytosis Present PT 26.2 H (9.0-12.0) Seconds INR 2.5 H (0.9-1.1) Sodium 139 (136-145) mmol/L Potassium TNP 4.7 Chloride 98 (98-107) mmol/L Carbon Dioxide 34 H (21-32) mmol/L Anion Gap 7 (3-11) BUN 43 H (6-23) mg/dl Creatinine 1.93 H (0.6-1.2) mg/dl Est Cr Clr Drug Dosing Not Reportable Est GFR ( Amer) 26.5 ml/min Est GFR (Non-Af Amer) 22.9 ml/min BUN/Creatinine Ratio 22.3 H (10-20) Glucose 175 H (70-99(Fasting)) mg/dl Calcium 9.9 (8.6-10.3) mg/dl Total Bilirubin 1.2 H (0.2-1.0) mg/dl AST TNP 27 ALT 12 (7-52) U/L Alkaline Phosphatase 152 H (34-104) U/L Total Protein 8.5 H (6.0-8.3) gm/dl Albumin 4.0 (3.4-5.0) gm/dl Globulin 4.5 H (2.5-4.0) gm/dl Albumin/Globulin Ratio 0.9 (0.9-2) Urine Color Urine Appearance (Clear) Urine pH (4.5-7.5) Ur Specific [place] (1.000-1.030) Urine Protein (Negative) Urine Glucose (UA) (Negative) Urine Ketones (Negative) Urine Blood (Negative) Urine Nitrite (Negative) Urine Bilirubin (Negative) Urine Urobilinogen (Negative) Ur Leukocyte Esterase (Negative) Urine WBC (Auto) (0-5) /hpf Urine RBC (Auto) (0-4) /hpf U Hyaline Cast (Auto) (0-5) /lpf U Epithel Cells (Auto) (0-5) /lpf Urine Bacteria (Auto) (Negative) 12/12/23 Range/Units 04:29 WBC (4.8-10.8) K/ul RBC (4.20-5.40) M/uL Hgb (12.0-16.0) g/dl Hct (37.0-47.0) % MCV (80.0-100.0) fL MCH (25.0-34.0) pg MCHC (32.0-36.0) g/dL RDW Std Deviation (36.4-46.3) fL RDW Coeff of Ge (11.5-14.5) % Plt Count (130-400) K/uL MPV (9.4-12.4) fL Immature Gran % (Auto) % Neut % (Auto) % Lymph % (Auto) % [place] % (Auto) % Eos % (Auto) % Baso % (Auto) % Neut # (Auto) (1.40-6.50) K/uL Lymph # (Auto) (1.20-3.40) K/uL [place] # (Auto) (0.11-0.59) K/uL Eos # (Auto) (0.00-0.50) K/uL Baso # (Auto) (0.00-0.20) K/uL Immature Gran # (Auto) (0.01-0.20) K/uL Macrocytosis PT (9.0-12.0) Seconds INR (0.9-1.1) Sodium (136-145) mmol/L Potassium Chloride (98-107) mmol/L Carbon Dioxide (21-32) mmol/L Anion Gap (3-11) BUN (6-23) mg/dl Creatinine (0.6-1.2) mg/dl Est Cr Clr Drug Dosing Est GFR ( Amer) ml/min Est GFR (Non-Af Amer) ml/min BUN/Creatinine Ratio (10-20) Glucose (70-99(Fasting)) mg/dl Calcium (8.6-10.3) mg/dl Total Bilirubin (0.2-1.0) mg/dl AST ALT (7-52) U/L Alkaline Phosphatase (34-104) U/L Total Protein (6.0-8.3) gm/dl Albumin (3.4-5.0) gm/dl Globulin (2.5-4.0) gm/dl Albumin/Globulin Ratio (0.9-2) Urine Color Yellow Urine Appearance Turbid A (Clear) Urine pH 5.5 (4.5-7.5) Ur Specific [place] 1.012 (1.000-1.030) Urine Protein 1+ H (Negative) Urine Glucose (UA) Negative (Negative) Urine Ketones Negative (Negative) Urine Blood 3+ H (Negative) Urine Nitrite Negative (Negative) Urine Bilirubin Negative (Negative) Urine Urobilinogen Negative (Negative) Ur Leukocyte Esterase 3+ H (Negative) Urine WBC (Auto) >30 H (0-5) /hpf Urine RBC (Auto) 5-10 H (0-4) /hpf U Hyaline Cast (Auto) 1-5 (0-5) /lpf U Epithel Cells (Auto) >30 H (0-5) /lpf Urine Bacteria (Auto) 2+ H (Negative) Administered Medications Albuterol (Albut/Ipratrop 3mg/0.5mg Neb 3 Ml Vial) 3 ml NEB QIDR [facility], [facility]; Protocol Stop: 01/11/24 17:04 Last Admin: 12/13/23 10:36 Dose: 3 ml Documented By: Admin: 12/13/23 07:07 Dose: 3 ml Documented By: Admin: 12/12/23 19:50 Dose: 3 ml Documented By: Admin: 12/12/23 17:24 Dose: Not Given Documented By: EFRA Betamethasone/Clotrimazole (Clotrimazole/Betamethasone Cr 15 Gm Tube) 1 appln EXT BID [facility] Stop: 01/11/24 08:59 Last Admin: 12/12/23 20:06 Dose: 1 appln Documented By: Admin: 12/12/23 11:47 Dose: Not Given Documented By: CATARINA Buspirone HCl (Buspirone 5 Mg Tab) 5 mg PO BID [facility] Stop: 01/11/24 08:59 Last Admin: 12/13/23 08:14 Dose: 5 mg Documented By: LUIS A Admin: 12/12/23 20:07 Dose: 5 mg Documented By: Admin: 12/12/23 11:27 Dose: 5 mg Documented By: CATARINA Clopidogrel Bisulfate (Clopidogrel Bisulfate 75 Mg Tab) 75 mg PO DAILY [facility] Stop: 01/11/24 08:59 Last Admin: 12/13/23 08:14 Dose: 75 mg Documented By: LUIS A Admin: 12/12/23 11:29 Dose: 75 mg Documented By: CATARINA Famotidine (Famotidine 20 Mg Tab) 20 mg PO DAILY [facility] Stop: 01/11/24 08:59 Last Admin: 12/13/23 08:14 Dose: 20 mg Documented By: LUIS A Admin: 12/12/23 11:30 Dose: 20 mg Documented By: CATARINA Fluticasone Propionate (Fluticasone Propionate Na Spr 16 Gm Btl) 1 sprays NA DAILY [facility] Stop: 01/11/24 08:59 Last Admin: 12/13/23 08:16 Dose: 1 sprays Documented By: LUIS A Admin: 12/12/23 11:39 Dose: 1 sprays Documented By: CATARINA Hydromorphone HCl (Hydromorphone Inj 0.5 Mg/0.5 Ml Syr) 0.5 mg IV Q4H PRN PRN Reason: Pain Stop: 12/26/23 06:53 Last Admin: 12/12/23 15:57 Dose: 0.5 mg Documented By: DANIAL Hydroxyurea (Hydroxyurea 500 Mg Cap) 500 mg PO [id number] DYLAN Stop: 01/11/24 08:59 Last Admin: 12/13/23 08:14 Dose: 500 mg Documented By: LUIS A Co-signed By: KENROY Admin: 12/12/23 11:29 Dose: 500 mg Documented By: CATARINA Co-signed By: GABRIELA Sodium Chloride (Nss) 500 mls @ 999 mls/hr IV .Q31M [facility] Stop: 01/12/24 10:29 Last Admin: 12/13/23 10:30 Dose: 999 mls/hr Documented By: KATHY Isosorbide Mononitrate (Isosorbide [place] Extended Rel 60 Mg Tabcr) 60 mg PO DAILY [facility] Stop: 01/11/24 08:59 Last Admin: 12/13/23 08:15 Dose: 60 mg Documented By: LUIS A Admin: 12/12/23 11:29 Dose: 60 mg Documented By: CATARINA Lactobacillus Acidophilus (Advanced Probiotic 1250 Mg Capsule) 2 cap PO DAILY [facility] Stop: 01/11/24 08:59 Last Admin: 12/13/23 08:14 Dose: 2 cap Documented By: LUIS A Admin: 12/12/23 11:25 Dose: 2 cap Documented By: CATARINA Lactulose (Lactulose Syrup 10 Gm/15 Ml Btl 960 Ml) 10 gm PO TID [facility] Stop: 01/11/24 08:59 Last Admin: 12/13/23 08:17 Dose: Not Given Documented By: LUIS A Admin: 12/12/23 20:06 Dose: 10 gm Documented By: Admin: 12/12/23 13:01 Dose: Not Given Documented By: Admin: 12/12/23 11:52 Dose: Not Given Documented By: CATARINA Metoprolol Succinate (Metoprolol Succ 50mg Ext Rel Tab) 150 mg PO BID [facility] Stop: 01/11/24 08:59 Last Admin: 12/12/23 20:24 Dose: Not Given Documented By: Admin: 12/12/23 11:37 Dose: Not Given Documented By: CATARINA Potassium Chloride (Potassium Chloride Crtab 20 Meq Tabcr) 20 meq PO BID [facility] Stop: 01/11/24 08:59 Last Admin: 12/13/23 08:15 Dose: 20 meq Documented By: LUIS A Admin: 12/12/23 20:07 Dose: 20 meq Documented By: Admin: 12/12/23 11:30 Dose: 20 meq Documented By: CATARINA Rosuvastatin Calcium (Rosuvastatin Calcium 20 Mg Tab) 20 mg PO DAILY [facility] Stop: 01/11/24 08:59 Last Admin: 12/13/23 08:15 Dose: 20 mg Documented By: LUIS A Admin: 12/12/23 11:28 Dose: 20 mg Documented By: CATARINA Sodium Chloride (Sodium Chlor 7% 4 Ml Neb) 4 ml NEB BIDR [facility]YL[facility] Stop: 01/11/24 17:04 Last Admin: 12/13/23 07:06 Dose: 4 ml Documented By: Admin: 12/12/23 19:50 Dose: 4 ml Documented By: Admin: 12/12/23 17:25 Dose: Not Given Documented By: EFRA Tamsulosin HCl (Tamsulosin Hcl 0.4 Mg Cap) 0.4 mg PO QAM DYLAN Stop: 01/11/24 08:59 Last Admin: 12/13/23 08:14 Dose: 0.4 mg Documented By: LUIS A Admin: 12/12/23 11:28 Dose: 0.4 mg Documented By: CATARINA Torsemide (Torsemide 20 Mg Tab) 80 mg PO DAILY [facility] Stop: 01/11/24 08:59 Last Admin: 12/12/23 11:19 Dose: 80 mg Documented By: CATARINA Warfarin Sodium (Warfarin Sod 1 Mg Tab) 1 mg PO DAILY@1600 DYLAN Stop: 01/11/24 15:59 Last Admin: 12/12/23 14:16 Dose: Not Given Documented By: CATARINA Discontinued Medications Fentanyl Citrate (Fentanyl Citrate Pf 100 Mcg/2 Ml Vial) 50 mcg IV NOW STA Stop: 12/12/23 02:24 Last Admin: 12/12/23 02:30 Dose: 50 mcg Documented By: IDD Fentanyl Citrate (Fentanyl Citrate Pf 100 Mcg/2 Ml Vial) 25 mcg IV NOW STA Stop: 12/12/23 03:57 Last Admin: 12/12/23 04:12 Dose: 25 mcg Documented By: MYRAD Furosemide (Furosemide 40 Mg/4 Ml Vial) 40 mg IV ONE ONE Stop: 12/12/23 17:37 Last Admin: 12/12/23 18:03 Dose: 40 mg Documented By: MAGALIS Hydromorphone HCl (Hydromorphone Inj 0.5 Mg/0.5 Ml Syr) 0.5 mg IV NOW STA Stop: 12/12/23 06:03 Last Admin: 12/12/23 06:55 Dose: 0.5 mg Documented By: IDD Sodium Chloride (Nss) 500 mls @ 999 mls/hr IV .Q31M ONE Stop: 12/12/23 05:18 Last Infusion: 12/12/23 11:49 Dose: Infused Documented By: Admin: 12/12/23 06:55 Dose: 999 mls/hr Documented By: IDD Sodium Chloride (Nss) 500 mls @ 125 mls/hr IV .Q4H DYLAN Stop: 01/11/24 04:59 Last Admin: 12/12/23 11:49 Dose: Not Given Documented By: CATARINA Aztreonam 2,000 mg/ Dextrose 100 mls @ 100 mls/hr IV NOW STA Stop: 12/12/23 07:16 Last Infusion: 12/12/23 11:49 Dose: Infused Documented By: Admin: 12/12/23 06:56 Dose: 100 mls/hr Documented By: MYRAD Sodium Chloride (Nss) 1,000 mls @ 80 mls/hr IV .[id number] DYLAN Stop: 01/11/24 06:53 Last Infusion: 12/12/23 19:59 Dose: Infused Documented By: Admin: 12/12/23 08:00 Dose: 80 mls/hr Documented By: MALIK Ertapenem 1,000 mg/ Syringe 10 mls @ 2 mls/min IV Q24H DYLAN Stop: 12/22/23 08:29 Last Admin: 12/12/23 08:59 Dose: 2 mls/min Documented By: MALIK Ertapenem 500 mg/ Syringe 5 mls @ 2 mls/min IV Q24H DYLAN Stop: 12/23/23 08:59 Last Admin: 12/13/23 08:20 Dose: 2 mls/min Documented By: LUIS A Sodium Chloride (Nss) 500 mls @ 500 mls/hr IV .Q1H DYLAN Stop: 12/12/23 21:59 Last Infusion: 12/12/23 22:06 Dose: Infused Documented By: Admin: 12/12/23 20:56 Dose: 500 mls/hr Documented By: ALEX Sodium Chloride (Nss) 1,000 mls @ 80 mls/hr IV .[id number] DYLAN Stop: 12/13/23 09:29 Last Admin: 12/12/23 20:56 Dose: 80 mls/hr Documented By: ALEX Sodium Chloride (Nss) 500 mls @ 500 mls/hr IV .Q1H DYLAN Stop: 12/13/23 06:59 Last Infusion: 12/13/23 07:20 Dose: Infused Documented By: LUIS A Admin: 12/13/23 05:54 Dose: 500 mls/hr Documented By: ALEX Piperacillin Sod/Tazobactam (Sod 4.5 gm/ Dextrose) 100 mls @ 200 mls/hr IV ONE ONE; Protocol Stop: 12/13/23 09:59 Last Admin: 12/13/23 10:15 Dose: 200 mls/hr Documented By: KATHY Miscellaneous (Patient's Height &/Or Weight Needed) 1 each N/A Q2H DYLAN Stop: 01/11/24 01:18 Last Admin: 12/12/23 11:48 Dose: Not Given Documented By: Admin: 12/12/23 11:48 Dose: Not Given Documented By: Admin: 12/12/23 11:48 Dose: Not Given Documented By: Admin: 12/12/23 07:13 Dose: 1 each Documented By: IDIsreal Ondansetron HCl (Ondansetron Inj 2 Mg/Ml 2 Ml Vial) 4 mg IV NOW STA Stop: 12/12/23 01:25 Last Admin: 12/12/23 02:30 Dose: Not Given Documented By: NICOLASA Ondansetron HCl (Ondansetron Inj 2 Mg/Ml 2 Ml Vial) 4 mg IV NOW STA Stop: 12/12/23 02:26 Last Admin: 12/12/23 02:31 Dose: 4 mg Documented By: IDD Imaging Data Radiologist's Impression: Abdomen/Pelvis CT 12/12/23 02:48 Exam(s): CT ABDOMEN + PELVIS Without Contrast EXAM: CT Abdomen and Pelvis Without Intravenous Contrast CLINICAL HISTORY: Reason for exam: eval for left sided kidney stone. TECHNIQUE: Axial computed tomography images of the abdomen and pelvis without intravenous contrast. CTDI is 27.14 mGy and DLP is 1291 mGy-cm. Automated exposure control was utilized for the study. A dose lowering technique was utilized adhering to the principles of ALARA. COMPARISON: CT January 29, 2023 FINDINGS: Limitations: Mildly limited by diffuse motion. Pleural space: Small bilateral pleural effusions. ABDOMEN: Liver: Unremarkable. Gallbladder and bile ducts: Small gallstones. No ductal dilation. Pancreas: Unremarkable. No ductal dilation. Spleen: Unremarkable. No splenomegaly. Adrenals: Unremarkable. No mass. Kidneys and ureters: Moderate degree of left hydronephrosis with a 6 mm obstructing calculus in the proximal left ureter. Stomach and bowel: Diverticulosis without diverticulitis. No obstruction. PELVIS: Appendix: No findings to suggest acute appendicitis. Bladder: Unremarkable. No stones. ABDOMEN and PELVIS: Intraperitoneal space: Unremarkable. No free air. No significant fluid collection. Bones/joints: No acute findings. Soft tissues: Unremarkable. Vasculature: Heavy calcification of the aorta and its major branches. No evidence of aneurysm. Lymph nodes: Unremarkable. No enlarged lymph nodes. IMPRESSION: Moderate degree of left hydronephrosis with a 6 mm obstructing calculus in the proximal left ureter. Electronically signed by: Wang Mccollum MD 12/12/23 04:24 AM Discharge Plan Visit Data Chief Complaint: Flank Pain Stated Complaint: L FLANK/ABD PAIN ED Provider: Nery Gross Discharge Problem: Hydronephrosis with renal and ureteral calculus obstruction Patient Disposition: Admitted As Inpatient Discharge Instructions Interventions: ED Discharge Assessment Last Done: 12/12/23 06:55
--- NOTE | 2023-12-12 08:28 | History & Physical Report ---
Date of Service December 12, 2023 Assessment & Plan (1) Left ureteral calculus: Plan: 88-year-old female with past medical history significant for chronic hypoxemic respiratory failure on 3 L oxygen, hyperlipidemia, obstructive sleep apnea on oxygen, history of CAD s/p stent, sinus node dysfunction s/p pacemaker, heart failure with reduced ejection fraction, asymptomatic bilateral carotid artery stenosis, hypertension, chronic atrial fibrillation history of RADHA, CKD stage III, restless leg syndrome, bilateral leg edema, essential thrombocythemia, s/p aortic valve replacement, lumbar spinal stenosis who lives at home alone was brought in by son because of severe back and left flank pain started last evening. Patient is hard of hearing. History got from the son. No fevers. No chest pain or shortness of breath. No nausea. No abdominal pain. Normal bowel movements. No headaches. Hemodynamics okay. Ambulates with walker. Left ureteral calculus Renal colic Moderate degree left hydronephrosis with 6 mm obstructing calculus in the proximal left ureter UTI IV fluids ,IV Azactam IV Dilaudid as needed, IV antiemetics as needed N.p.o. Urology consulted History of chronic systolic CHF EF 40 to 45% echo done in August 2023 Bilateral lower extremity edema Continue home torsemide and potassium supplement Getting fluids Monitor for volume overload History of chronic atrial fibrillation On metoprolol succinate and Coumadin INR 2.5 History of CAD s/p stent On Plavix, statin, metoprolol succinate and Imdur Obstructive sleep apnea chronic hypoxic respiratory failure On home oxygen 3 L 24/7 Sinus node dysfunction status post pacemaker. CKD stage 3/4 Presented creatinine of 2 Seems around baseline . 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 May need placement Full code Admission and Anticipated Discharge Date Admission Date: December 12, 2023 History of Present Illness Chief Complaint: Left flank pain Primary Care Provider: Yaya Frederick MD 88-year-old female with past medical history significant for chronic hypoxemic respiratory failure on 3 L oxygen, hyperlipidemia, obstructive sleep apnea on oxygen, history of CAD s/p stent, sinus node dysfunction s/p pacemaker, heart failure with reduced ejection fraction, asymptomatic bilateral carotid artery stenosis, hypertension, chronic atrial fibrillation history of RADHA, CKD stage III, restless leg syndrome, bilateral leg edema, essential thrombocythemia, s/p aortic valve replacement, lumbar spinal stenosis who lives at home alone was brought in by son because of severe back and left flank pain started last evening. Patient is hard of hearing. History got from the son. No fevers. No chest pain or shortness of breath. No nausea. No abdominal pain. Normal bowel movements. No headaches. Hemodynamics okay. Ambulates with walker. Past medical history. As mentioned above Past surgical history. Cardiac cath s/p RCA drug-eluting stent. Colonoscopy. Cystoscopy. Dual-chamber MRI compatible pacemaker. Knee arthroscopy.. Ligation oviducts. S/p aortic valve replacement bioprosthetic valve, total abdominal hysterectomy with removal of tubes. Social history. . No smoking. No alcohol use. No drug use. Family history. Father allergies. Prostate cancer. Hypertension. Mother had diabetes. Endometriosis. Sister has heart attack. Stroke. Allergies Allergy/AdvReac Type Severity Reaction Status Date / Time amiodarone Allergy Severe EDEMA Verified 09/12/23 16:05 FACE/LIPS/TONGUE, RASH azithromycin [From Zithromax] Allergy Severe THROAT Verified 09/12/23 16:05 SWELLED, DENIED SHORT OF BREATH. adhesive Allergy Intermediate Rash Verified 09/12/23 16:05 etodolac Allergy Intermediate PRURITIS-IO Verified 09/12/23 16:05 DINE iodine Allergy Intermediate itching Verified 09/12/23 16:05 Penicillins Allergy Intermediate ITCHY RASH Verified 09/12/23 16:05 Sulfa (Sulfonamide Allergy Intermediate Rash Verified 09/12/23 16:05 Antibiotics) cephalexin [From Keflex] Allergy Unknown PER Verified 09/12/23 16:05 GMG--TRUE REACTION TO KEFLEX gabapentin AdvReac Intermediate sedation Verified 09/12/23 16:05 lisinopril AdvReac Intermediate Swelling Verified 09/12/23 16:05 of Lip/Tongue/Throat simvastatin AdvReac Unknown CAN'T Verified 09/12/23 16:05 REMEMBER Home Medications Medication Instructions Recorded Confirmed Type acidophilus 25 million 2 tab PO DAILY 12/12/23 12/12/23 History cell-pectin, citrus 100 mg tablet buspirone 5 mg tablet 5 mg PO BID 12/12/23 12/12/23 History clopidogrel 75 mg tablet 75 mg PO DAILY 12/12/23 12/12/23 History clotrimazole-betamethasone 1 1 applic topical BID 12/12/23 12/12/23 History %-0.05 % topical cream famotidine 20 mg tablet 20 mg PO DAILY 12/12/23 12/12/23 History hydroxyurea 500 mg capsule 500 mg PO UD 12/12/23 12/12/23 History isosorbide mononitrate 60 mg 60 mg PO DAILY 12/12/23 12/12/23 History tablet,extended release 24 hr lactulose 10 gram/15 mL oral 15 ml PO TID 12/12/23 12/12/23 History solution metoprolol succinate 100 mg 150 mg PO BID 12/12/23 12/12/23 History tablet,extended release 24 hr mometasone 50 mcg/actuation nasal 1 spray intranasal DAILY 12/12/23 12/12/23 History spray potassium chloride 20 mEq 20 meq PO BID 12/12/23 12/12/23 History tablet,extended release(part/cryst) rosuvastatin 20 mg tablet 20 mg PO DAILY 12/12/23 12/12/23 History torsemide 20 mg tablet 80 mg PO DAILY 12/12/23 12/12/23 History warfarin 1 mg tablet 1 mg PO DAILY 12/12/23 12/12/23 History Past Med/Surg History Medical History (Updated 12/12/23 @ 07:53 by ELIN Flores) Coronary artery disease with angina pectoris CKD (chronic kidney disease), stage III Chronic diastolic CHF (congestive heart failure) Cardiac pacemaker in situ Sinus node dysfunction ASCVD (arteriosclerotic cardiovascular disease) 2006 - CABG x 3, bioproesthetic aortic valve replacement 2007 - PCI and stenting to SVG to RCA occlusion Atrial fibrillation, persistent Current use of detention 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 Tinnitus of left ear Sensorineural hearing loss of both ears HLD (hyperlipidemia) HTN (hypertension) Essential thrombocythemia CKD (chronic kidney disease) stage 2, GFR 60-89 ml/min UTI due to extended-spectrum beta lactamase (ESBL) producing Escherichia coli Generalized weakness Anemia 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) Replacement of aortic valve (Unknown) "[facility] 2006 Mary-Good " Dermatitis Carotid artery occlusion (Unknown) Surgical History (Updated 10/19/23 @ 00:07 by Background Daemon) Status post transcatheter aortic valve replacement (TAVR) using bioprosthesis History of colonoscopy with polypectomy History of cystoscopy History of tubal ligation Total abdominal hysterectomy with bilateral salpingo-oophorectomy (Unknown) Stented coronary artery (Unknown) Placement of stent in coronary artery (Unknown) "RCA December 2006 " Implantation of aortic valve prosthesis or synthetic device (Unknown) Coronary artery bypass grafting (Unknown) "[facility] April 2006 VARGHESE to LAD SVG's to diagonal, obtuse marginal, RCA " Family History Father Prostate cancer Mother Diabetes Sister Coronary heart disease Social History Smoking Status: Never smoker Second Hand Exposure: No; Do You Dip or Chew Tobacco: No; Hx Alcohol Use: No Hx Substance Use: No Preferred Language: Italian Communication Ability: Effective Visual Impairment: No Limitations Hearing Ability: Normal Silver Buffer Required: No Beliefs That Will Affect Care: None marital status: / Current Living Situation: Alone Feels Safe at Home: Yes Assistive Devices: Hearing Aid - Bilateral, Oxygen - Continuous and Walker Review of Systems Review of Systems: All systems reviewed & are unremarkable except as noted in HPI & below Physical Exam Physical Exam: General- Seems in pain Head- atraumatic Eyes- PERRL ENT- oropharynx clear Neck- supple, no JVD. Lungs- clear to auscultation no wheezing or crackles. Heart- regular rhythm; no murmur, no gallop. Abdomen- normal bowel sounds, soft, nontender, no distension. No CVA tenderness. Extremities- Lower extremity edema, no erythema seen Neuro- alert, and awake. hard of hearing PERRL, no facial palsy; no dysarthria; moves extremities. Skin- warm & dry Results & Data Results & Data Vital Signs (Past 12 Hours) Vital Signs Temp Pulse Resp BP Pulse Ox Pulse Ox O2 Del Method 12/12/23 06:54 94 12/12/23 02:25 94 H 12/12/23 01:19 36.5 C 94 H 22 138/93 97 Nasal Cannula O2 Del Method O2 Flow Rate 12/12/23 06:54 Room Air 12/12/23 02:25 12/12/23 01:19 3 Diagnostic Findings Laboratory Results WBC 10.81 K/ul (4.8-10.8) H 12/12/23 07: RBC 3.20 M/uL (4.20-5.40) L 12/12/23 07:29 Hgb 11.0 g/dl (12.0-16.0) L 12/12/23 07: Hct 35.7 % (37.0-47.0) L 12/12/23 07: MCV 111.6 fL (80.0-100.0) H 12/12/23 07: MCH 34.4 pg (25.0-34.0) H 12/12/23 07: MCHC 30.8 g/dL (32.0-36.0) L 12/12/23 07: RDW Std Deviation 71.4 fL (36.4-46.3) H 12/12/23 07: RDW Coeff of Ge 17.4 % (11.5-14.5) H 12/12/23 07: Plt Count 162 K/uL (130-400) 12/12/23 07: MPV 11.5 fL (9.4-12.4) 12/12/23 07: Immature Gran % (Auto) 0.6 % 12/12/23 07: Neut % (Auto) 85.9 % 12/12/23 07: Lymph % (Auto) 3.3 % 12/12/23 07: Dyer % (Auto) 9.0 % 12/12/23 07: Eos % (Auto) 0.7 % 12/12/23 07: Baso % (Auto) 0.5 % 12/12/23 07:29 Neut # (Auto) 9.29 K/uL (1.40-6.50) H 12/12/23 07: Lymph # (Auto) 0.36 K/uL (1.20-3.40) L 12/12/23 07:29 Dyer # (Auto) 0.97 K/uL (0.11-0.59) H 12/12/23 07:29 Eos # (Auto) 0.08 K/uL (0.00-0.50) 12/12/23 07: Baso # (Auto) 0.05 K/uL (0.00-0.20) 12/12/23 07:29 Immature Gran # (Auto) 0.06 K/uL (0.01-0.20) 12/12/23 07:29 Absolute Nucleated RBC 0.02 K/uL (0.00-0.12) 12/12/23 07:29 Nucleated RBC % (auto) 0.2 % 12/12/23 07:29 Macrocytosis Present 12/12/23 02:18 PT 26.2 Seconds (9.0-12.0) H 12/12/23 02:18 INR 2.5 (0.9-1.1) H 12/12/23 02:18 Sodium 140 mmol/L (136-145) 12/12/23 07:29 Potassium 4.6 mmol/L (3.5-5.1) 12/12/23 07: Chloride 101 mmol/L (98-107) 12/12/23 07:29 Carbon Dioxide 32 mmol/L (21-32) 12/12/23 07:29 Anion Gap 7 (3-11) 12/12/23 07:29 BUN 43 mg/dl (6-23) H 12/12/23 07:29 Creatinine 2.07 mg/dl (0.6-1.2) H 12/12/23 07:29 Est Cr Clr Drug Dosing 18.2 ml/min 12/12/23 07:29 Est GFR ( Amer) 24.3 ml/min 12/12/23 07:29 Est GFR (Non-Af Amer) 21.0 ml/min 12/12/23 07:29 BUN/Creatinine Ratio 20.8 (10-20) H 12/12/23 07:29 Glucose 147 mg/dl (70-99(Fasting)) H 12/12/23 07:29 Calcium 9.1 mg/dl (8.6-10.3) 12/12/23 07:29 Magnesium 1.8 mg/dl (1.7-2.4) 12/12/23 07:29 Total Bilirubin 1.2 mg/dl (0.2-1.0) H 12/12/23 02:00 AST 27 U/L (13-39) 12/12/23 03:50 ALT 12 U/L (7-52) 12/12/23 02:00 Alkaline Phosphatase 152 U/L (34-104) H 12/12/23 02:00 Total Protein 8.5 gm/dl (6.0-8.3) H 12/12/23 02:00 Albumin 4.0 gm/dl (3.4-5.0) 12/12/23 02:00 Globulin 4.5 gm/dl (2.5-4.0) H 12/12/23 02:00 Albumin/Globulin Ratio 0.9 (0.9-2) 12/12/23 02:00 Urine Color Yellow 12/12/23 04:29 Urine Appearance Turbid (Clear) A 12/12/23 04:29 Urine pH 5.5 (4.5-7.5) 12/12/23 04:29 Ur Specific Marland 1.012 (1.000-1.030) 12/12/23 04:29 Urine Protein 1+ (Negative) H 12/12/23 04:29 Urine Glucose (UA) Negative (Negative) 12/12/23 04:29 Urine Ketones Negative (Negative) 12/12/23 04:29 Urine Blood 3+ (Negative) H 12/12/23 04:29 Urine Nitrite Negative (Negative) 12/12/23 04:29 Urine Bilirubin Negative (Negative) 12/12/23 04:29 Urine Urobilinogen Negative (Negative) 12/12/23 04:29 Ur Leukocyte Esterase 3+ (Negative) H 12/12/23 04:29 Urine WBC (Auto) >30 /hpf (0-5) H 12/12/23 04:29 Urine RBC (Auto) 5-10 /hpf (0-4) H 12/12/23 04:29 U Hyaline Cast (Auto) 1-5 /lpf (0-5) 12/12/23 04:29 U Epithel Cells (Auto) >30 /lpf (0-5) H 12/12/23 04:29 Urine Bacteria (Auto) 2+ (Negative) H 12/12/23 04:29 Impressions Abdomen/Pelvis CT 12/12/23 02:48 Exam(s): CT ABDOMEN + PELVIS Without Contrast EXAM: CT Abdomen and Pelvis Without Intravenous Contrast CLINICAL HISTORY: Reason for exam: eval for left sided kidney stone. TECHNIQUE: Axial computed tomography images of the abdomen and pelvis without intravenous contrast. CTDI is 27.14 mGy and DLP is 1291 mGy-cm. Automated exposure control was utilized for the study. A dose lowering technique was utilized adhering to the principles of ALARA. COMPARISON: CT January 29, 2023 FINDINGS: Limitations: Mildly limited by diffuse motion. Pleural space: Small bilateral pleural effusions. ABDOMEN: Liver: Unremarkable. Gallbladder and bile ducts: Small gallstones. No ductal dilation. Pancreas: Unremarkable. No ductal dilation. Spleen: Unremarkable. No splenomegaly. Adrenals: Unremarkable. No mass. Kidneys and ureters: Moderate degree of left hydronephrosis with a 6 mm obstructing calculus in the proximal left ureter. Stomach and bowel: Diverticulosis without diverticulitis. No obstruction. PELVIS: Appendix: No findings to suggest acute appendicitis. Bladder: Unremarkable. No stones. ABDOMEN and PELVIS: Intraperitoneal space: Unremarkable. No free air. No significant fluid collection. Bones/joints: No acute findings. Soft tissues: Unremarkable. Vasculature: Heavy calcification of the aorta and its major branches. No evidence of aneurysm. Lymph nodes: Unremarkable. No enlarged lymph nodes. IMPRESSION: Moderate degree of left hydronephrosis with a 6 mm obstructing calculus in the proximal left ureter. Electronically signed by: Wnag Mccollum MD 12/12/23 04:24 AM Code Status & VTE Plan VTE Prophylaxis Plan VTE Prophylaxis will be ordered: Yes
[2023-12-12] MEDS: ERTAPENEM SODIUM 1,000 MG in SYRINGE 0 ML IV SCH (08:59)
[2023-12-12] MEDS ORDERED: ROSUVASTATIN CALCIUM 10 MG TAB PO SCH (09:00)
--- OUTSIDE RECORDS SUMMARY | 2023-12-12 09:15 | External Medical Summary | Summary of Care ---
Author Name Unknown Organization [facility] Address [address] [place] [address] Phone [phone] Care Team Providers Care Drill Bit Sharpener Name Role Phone Yaya Frederick MD Primary Care Provider Reason for Visit * Reason Comments Dosage Adjustment Via Phone (anticoag Cl inic) Encounter Details Date Type Department Care Team (Latest Contact Info) Description 12/01/2023 5:30 PM EST Anticoagulation Pharmacy [address] [phone] Pharmacist2, [facility] [address] [address] S/P aortic valve replacement* Allergies Active Allergy Reactions Criticality Noted Date [...] as of this encounter (statuses as of 12/01/2023) Medications Medication Sig Dispensed Refills Start Date End Date Status BENADRYL 25 MG PO TABS 1 TABLET EVERY 4 TO 6 HOURS NEEDED 0 Active GRX ANALGESIC BALM EX OINT Apply topically to affected area. 0 07/01/2013 Active Azelastine HCl 0.15 % Nasal SolutionIndications:P ost-nasal discharge Administer into nostril 1 [place] in the morning AND 1 [place] before bedtime. 30 mL 0 11/30/2021 Active Ipratropium Harper 0.03 % Nasal Solution Administer into each [...] the morning. 51 g 3 05/15/2023 Active Additional Information Patient not taking.Reported on 11/30/2023 busPIRone HCl 5 MG Oral Tablet (Buspar)Indications:A [...] Capsule Take by mouth daily. 0 Active Famotidine 20 MG Oral Tablet (Pepcid) Take 1 Tablet by mouth in the morning. 30 Tablet 11 07/11/2023 Active Docusate Sodium 100 MG Oral Capsule (Colace) Take 1 Capsule by mouth in the morning and 1 Capsule before bedtime. 60 Capsule 5 08/01/2023 Active Additional Information Patient not taking.Reported on 10/25/2023 Senna 8.6 MG Oral Tablet Take 1 Tablet by mouth in the morning. 30 Tablet 5 08/01/2023 Active Additional Information Patient not taking.Reported on 10/25/2023 Lactulose 10 GM/15ML Oral Solution (Constulose) Take 15 mL by mouth in the morning and 15 mL at noon and 15 mL before bedtime. 240 mL 0 08/23/2023 Active Additional Information Patient not taking.Reported on 10/25/2023 Fexofenadine HCl 60 MG Oral Tablet (Lizzette) Take 1 Tablet by mouth daily as needed for Allergies. 90 Tablet 1 08/30/2023 Active Isosorbide Mononitrate ER 60 MG Oral Tablet Extended Release 24 Hour (Imdur)Indications:HF rEF (heart failure with reduced ejection fraction) ([facility]) Take 1 Tablet by mouth in the morning. 90 Tablet 1 09/29/2023 Active Clopidogrel Bisulfate 75 MG Oral Tablet (pLAVix)Indications:H FrEF (heart failure with reduced ejection fraction) ([facility]) Take 1 Tablet by mouth in the morning. 90 Tablet 1 09/29/2023 Active Torsemide 40 MG Oral TabletIndications:Hyp ertensive kidney disease with stage 3a chronic kidney disease (HCC),Bilateral leg edema Take 80 mg by mouth in the morning. 180 Tablet 3 10/26/2023 Active Warfarin Sodium 1 MG Oral Tablet (Coumadin) Take 1 Tablet by mouth in the morning. Or as directed by coumadin clinic. 90 Tablet 2 11/03/2023 Active Potassium Chloride Nita ER 20 MEQ Oral Tablet Extended ReleaseIndications:Hy pertensive kidney disease with stage 3a chronic kidney disease (HCC),Bilateral leg edema Take 1 Tablet by mouth in the morning and 1 Tablet before bedtime. 180 Tablet 3 11/03/2023 Active Clotrimazole-Betameth asone 1-0.05 % External Cream (Lotrisone)Indication s:Dermatitis Apply topically to affected area 2 times a day for 28 days. To affected area for 4 weeks, or until healed. 45 g 1 11/20/2023 4 Active hydrOXYzine HCl 50 MG Oral TabletIndications:Itc vasu Take 1 Tablet by mouth 3 times a day as needed for Itching. 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 # [employer] Operator: Wilda Serrano MD [phone] Type 2 diabetes mellitus wit h hemoglobin [...] as of this encounter (statuses as of 12/01/2023) Immunizations Name Administration Dates Next Due COVID-19 [...] 07/19/2021,08/03/2020,07/23/2019,07/30,08/29/2017,07/28/2016,07/05/2016 ,07/07/2014,07/22/2013,07/03/2012,06/24,07/21/2010,09/12/2009, 8,07/23/2007,08/02/2006,08/23/2005,,10/01/2001 Seasonal Influenza, PF, 6 M & above, IM , (FluLaval or Fluzone) 07/30/2018,08/29/2017 Seasonal Influenza, Quadriva lent Hd (Fluzone [...] this encounter Progress Notes * Raquel Alcantara, [facility] - 12/01/2023 4:02 PM EST Medication Therapy Disease Management - Anticoagulation Patient: Shannon Cruz | : 1935 Subjective Patient-Reported Symptoms: Objective Current Warfarin Dose As of 12/01/2023 Warfarin maintenance plan: 1 mg (1 mg x 1) every day INR Result As of 12/01/2023 INR goal: 2.0-3.0 INR used for dosin.7 (12/01/2023) Assessment & Plan Warfarin Plan As of 12/01/2023 Full warfarin instructions: 1 mg every day Next INR check: 12/14/2023 Has been taking 1 mg tablet for ~ 1 week Repeat PT/INR in 2 week(s) Weekly dose: not changed Additional Dosing Information: Description [facility] Home Health to complete INR. Fax to [phone]. Standing order for pt/inr. Please draw or completed fingerstick pt/inr as ordered by [facility] Pharmacist Results to [facility] Ordering Provider Dr. Yaya Frederick NPI# [id number] Raquel Alcantara [facility] Clinical Pharmacist 12/01/2023, 4:02 PM documented in this encounter Plan of Treatment Upcoming Encounters Date Type Department Care Team (Late st Contact Info) Description 12/05/2023 11:30 AM EST Imaging Radiology, [address] [place] [phone] 12/14/2023 10:20 AM EST Anticoagulation Pharmacy [address] [phone] Pharmacist2, [facility] [address] [place] [address] 12/27/2023 11:40 AM EST Office Visit Nephrology [address] [place] [phone] Alfa Holcomb MD [address] [place] [address] 12/27/2023 3:00 PM EST Office Visit Cardiology, [facility] [place] [address] Bucky Calvo PA-Zahida [address] [place] [address] 01/26/2024 10:40 AM EDT Office Visit Otolaryngology [address] [place] [phone] Keely Tanner [facility]C [facility] [place] [address] 02/20/2024 12:20 PM EDT Office Visit [facility] [address] [place] [phone] Oneida Briggs PA-C [address] [place] [address] 05/27/2024 12:20 PM EDT Office Visit [facility] [address] [place] [phone] Yaya Frederick MD [address] [place] [address] 06/04/2024 2:45 PM EDT Office [facility] [place] [address] [place] [address] Agustín Sullivan MD [address] [place] [address] 08/16/2024 11:00 AM EDT Cardiac Studies Cardiology, [facility] [address] [facility] [place] [address] [place], Pacer [address] [place] [address] Health Maintenance Due Date Last Done Comments Zoster Vaccines (1 of 2) 1954 Hepatitis B (1 of 3 - Risk 3-dose series) 1996 COVID-19 Vaccine ( season) 2023 09/29/2022, 09/13/2021, 01/05/2021, Additional history exists Depression Screening 02/09/2024 02/08/2023 Albumin/Creatinine Ratio 06/15/2024 023, 05/01/2023, 07/04/2022, Additional history exists CKD PHOS USE SMARTSET 02444 11/02/202410/23, 05/01/2023, 11/04/2022, Additional history exists DXA Scan 11/09/2024 11/09/2022, 01/21, 11/03/2015, Additional history exists CKD HGB USE SMARTSET 42244 11/30/202411/30, 11/30/2023, 11/02/2023, Additional history exists DTaP,Tdap,and Td Vaccines (3 - Td or Tdap) 06/04/2029 06/04/2019, 01/28/2019, 05/26/2008 Pneumococcal Vaccine: 65+ Years Completed 05/24/2016, 11/14/2001 Influenza Vaccine (FLU shot) Completed 05/2023, 07/04/2022, 07/19/2021, Additional history exists VITAMIN D LEVEL ONCE IN A LIFETIME-USE SMARTSET# [id number] Completed 11/02/2023, 05/01/2023, 11/04/2022, Additional history exists GARDASIL-HPV IMMUNIZATION SERIES Aged [...] documented as of this encounter Care Teams Drill Bit Sharpener Relationship Specialty Start Date End Date Yaya Frederick MD [address] [place] [address] [place] [phone] PCP - General Family Medicine 05/04/21 documented as of this encounter"
--- OUTSIDE RECORDS SUMMARY | 2023-12-12 09:15 | External Medical Summary | Summary of Care ---
Author Name Unknown Organization [facility] Address [address] [place] [address] Phone [phone] Care Team Providers Care [employer] Name Role Phone Yaya Frederick MD Primary Care Provider [phone] Reason for Visit * Reason Onset Date Comments Test Results 12/01/2023 Encounter Details Date Type Department Care Team ([facility] st Contact Info) Description 12/01/2023 Telephone Family [facility] [address] [place] [address] Oneida Briggs PA-C [address] [place] [address] Test Results Allergies Active Allergy Reactions Criticality Noted Date [...] as of this encounter (statuses as of 12/11/2023) Medications Medication Sig Dispensed Refills Start Date End Date Status BENADRYL 25 MG PO TABS 1 TABLET EVERY 4 TO 6 HOURS NEEDED 0 Active GRX ANALGESIC BALM EX OINT Apply topically to affected area. 0 07/01/2013 Active Azelastine HCl 0.15 % Nasal SolutionIndications:P ost-nasal discharge Administer into nostril 1 [place] in the morning AND 1 [place] before bedtime. 30 mL 0 11/30/2021 Active Ipratropium [place] 0.03 % Nasal Solution Administer into each [...] (Crestor)Indications: NSTEMI (non-ST elevated myocardial infarction) ([facility]) Take 1 Tablet by mouth in the morning. 90 Tablet 3 05/18/2023 Active Nitroglycerin 0.4 MG Sublingual Tablet Sublingual (Nitrostat)Indication s:NSTEMI (non-ST elevated myocardial infarction) ([facility]) Place 1 Tablet under the tongue [...] (heart failure with reduced ejection fraction) ([facility]) Take 1 Tablet by mouth in the morning. 90 Tablet 1 09/29/2023 Active Clopidogrel Bisulfate 75 MG Oral Tablet (pLAVix)Indications:H FrEF (heart failure with reduced ejection fraction) ([facility]) Take 1 Tablet by mouth in [...] or until healed. 45 g 1 11/20/2023 Active hydrOXYzine HCl 50 MG Oral TabletIndications:Itc vasu Take 1 Tablet by mouth 3 times a day as needed for Itching. 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 Call cut out, if call Is returned, pleasereschedule if necessary. * Telephone Encounter - Oneida Briggs PA-C - 12/01/2023 9:58 AM EST Called patient and spoke with her about lab results. Patient's bilirubin and alkaline phosphatase are mildly elevated. Discussed that next steps would include right upper quadrant ultrasound. This has been ordered. Advised patient that Crestor is likely not causing her symptoms and continuation of Crestor is important to reduce risk of plaque rupture. Please assist patient with scheduling US. Oneida Briggs PA-C 12/01/2023 10:06 AM documented in this encounter Plan of Treatment Upcoming Encounters Date Type Department Care Team (Late st Contact Info) Description 12/14/2023 10:20 AM EST Anticoagulation Pharmacy [address] [phone] Pharmacist2, [facility] [address] [address] 12/27/2023 11:40 AM EST Office Visit Nephrology [address] [place] [address] Alfa Holcomb MD [address] [place] [address] 12/27/2023 3:00 PM EST Office Visit Cardiology, [facility] [address] [facility] [place] [address] Bucky aClvo PA-C [address] [place] [address] 01/26/2024 10:40 AM EDT Office [facility] [address] [facility] [address] [place] [address] [facility]ely Tanner [facility]C [facility] [place] [address] 02/20/2024 12:20 PM EDT Office Visit [facility] [address] [place] [phone] Oneida Briggs PA-C [address] [place] [address] 05/27/2024 12:20 PM EDT Office Visit [facility] [address] [place] [phone] Yaya Frederick MD [address] [place] [address] 06/04/2024 2:45 PM EDT Office Visit Hematology/Oncology [facility] [address] [facility] [place] [address] Agustín Sullivan MD [address] [place] [address] 08/16/2024 11:00 AM EDT Cardiac Studies Cardiology, [facility] [address] [facility] [place] [address] [facility] [address] [facility] [place] [address] Health Maintenance Due Date Last Done Comments Zoster Vaccines (1 of 2) 1954 COVID-19 Vaccine (2022- season) 2023 09/29/2022, 09/13/2021, 01/05/2021, Additional history exists Depression Screening 02/09/2024 02/08/2023 Albumin/Creatinine Ratio 06/15/2024 023, 05/01/2023, 07/04/2022, Additional history exists CKD PHOS USE SMARTSET 76999 11/02/202410/23, 05/01/2023, 11/04/2022, Additional history exists DXA Scan 11/09/2024 11/09/2022, 01/21, 11/03/2015, Additional history exists CKD HGB USE SMARTSET 35537 11/30/202411/30, 11/30/2023, 11/02/2023, Additional history exists DTaP,Tdap,and Td Vaccines (3 - Td or Tdap) 06/04/2029 06/04/2019, 01/28/2019, 05/26/2008 Pneumococcal Vaccine: 65+ Years Completed 05/24/2016, 11/14/2001 Influenza Vaccine (FLU shot) Completed 05/2023, 07/04/2022, 07/19/2021, Additional history exists VITAMIN D LEVEL ONCE IN A LIFETIME-USE SMARTSET# [id number] Completed 11/02/2023, 05/01/2023, 11/04/2022, Additional history exists [...] filedocumented as of this encounter Results * US ABDOMEN LIMITED (12/07/2023 2:28 PM EST) Anatomical Region Laterality Modality Abdomen, Body Ultrasound 12/10/2023 3:48 PM EST Impressions 12/10/2023 3:46 PM EST IMPRESSION 1. Hepatic cirrhosis. No discrete hepatic lesion. 2. Contracted gallbladder with probable mild sludge. Narrative 12/10/2023 3:46 PM EST EXAM US ABDOMEN LIMITED-12/07/2023 2:28 pm HISTORY RUQ US, Elevated LFTs TECHNIQUE Sonogram of the right upper quadrant. COMPARISON None. FINDINGS LIVER: Cirrhosis. No focal lesion. BILE DUCTS: No intrahepatic or extrahepatic duct dilatation. The common bile duct measures 4 mm. GALLBLADDER: Somewhat contracted. There is mild sludge in the gallbladder. No cholelithiasis. No gallbladder wall thickening, pericholecystic fluid, or sonographic Singh's sign. PANCREAS: Visualized portions are unremarkable. RIGHT KIDNEY: 9.1 cm in length. 1.7 cm cyst. OTHER: No ascites. Procedure Note Eduin Sullivan MD - 12/10/2023 EXAM US ABDOMEN LIMITED-12/07/2023 2:28 pm HISTORY RUQ US, Elevated LFTs TECHNIQUE Sonogram of the right upper quadrant. COMPARISON None. FINDINGS LIVER: Cirrhosis. No focal lesion. BILE DUCTS: No intrahepatic or extrahepatic duct dilatation. The commonbile duct measures 4 mm. GALLBLADDER: Somewhat contracted. There is mild sludge in thegallbladder. No cholelithiasis. No gallbladder wall thickening,pericholecystic fluid, or sonographic Singh's sign. PANCREAS: Visualized portions are unremarkable. RIGHT KIDNEY: 9.1 cm in length. 1.7 cm cyst. OTHER: No ascites. IMPRESSION IMPRESSION 1. Hepatic cirrhosis. No discrete hepatic lesion. 2. Contracted gallbladder with probable mild sludge. Oneida Briggs PA-C RAD ULTRASOUND documented in this encounter Visit Diagnoses Diagnosis Transaminitis- Primary Nonspecific elevation of levels of transaminase or lactic acid dehydrogenase (LDH) Transaminitis Nonspecific elevation of levels of transaminase or lactic acid dehydrogenase (LDH) documented in this encounter Additional Health Concerns Infection Onset Date Last Indicated Resolved Time Varicella zoster 08/01/2022 08/01/2022 documented as of this encounter Care Teams [employer] Relationship Specialty Start Date End Date Yaya Frederick MD [address] [place] [id number] PCP - General Family Medicine 05/04/21 documented as of this encounter
--- OUTSIDE RECORDS SUMMARY | 2023-12-12 09:16 | External Medical Summary | Summary of Care ---
Author Name Unknown Organization [facility] Address [address] [place] [address] Phone [phone] [address] Team Prov[address] Care Road Maker Name Role Phone Yaya Frederick MD Primary Care Provider [phone] Reason for Visit * Reason Comments Acute Patient is here toda y with son present to discuss itching.Itching started about a month agoPatient was seen by Dr. Frederick and he told her to use coconut oil & a cream2 nights ago itching got really bad so she made this appointment I spoke with patient on the phone yesterday, Dr. Frederick called a script in for her she has not picked it up yet.Patient states she also is experiencing chills Patient declined a weight check today Encounter Details Date Type Department Care Team ([facility] Contact Info) Description 11/30/2023 8:20 AM EST Office Visit [facility] [address] [place] [phone] Oneida Briggs PA-C [address] [place] [phone] Pruritus*; HFrEF (heart failure with reduced ejection fraction) (HCC); HTN, goal below 150/90; Chronic hypoxemic respiratory failure (HCC) Allergies Active Allergy Reactions Criticality Noted Date [...] as of this encounter (statuses as of 11/30/2023) Medications Medication Sig Dispensed Refills Start Date End Date Status BENADRYL 25 MG PO TABS 1 TABLET EVERY 4 TO 6 HOURS NEEDED 0 Active GRX ANALGESIC BALM EX OINT Apply topically to affected area. 0 07/01/2013 Active Azelastine HCl 0.15 % Nasal SolutionIndications: Post-nasal discharge Administer into nostril 1 [place] in the morning AND 1 [place] before bedtime. 30 mL 0 11/30/2021 Active Ipratropium [place] 0.03 % Nasal Solution Administer into each [...] 11/30/2023 busPIRone HCl 5 MG Oral Tablet (Buspar)Indications: Anxiety state Take 1 Tablet by mouth in the morning and 1 Tablet before bedtime. 20 Tablet 0 05/15/2023 Active Rosuvastatin Calcium 20 MG Oral Tablet (Crestor)Indications :NSTEMI (non-ST elevated myocardial infarction) ([facility]) Take 1 Tablet by mouth in the morning. 90 Tablet 3 05/18/2023 Active Nitroglycerin 0.4 MG Sublingual Tablet Sublingual (Nitrostat)Indicatio ns:NSTEMI (non-ST elevated myocardial infarction) ([facility]) [...] HFrEF (heart failure with reduced ejection fraction) ([facility]) Take 1 Tablet by mouth in the morning. 90 Tablet 1 09/29/2023 Active Torsemide 40 MG Oral TabletIndications:Hy pertensive kidney disease with stage 3a chronic kidney disease ([facility]),Bilateral leg edema Take 80 mg by mouth in the morning. 180 Tablet 3 10/26/2023 Active Warfarin Sodium 1 MG Oral Tablet (Coumadin) Take 1 Tablet by mouth in the morning. Or as directed by coumadin clinic. 90 Tablet 2 11/03/2023 Active Potassium Chloride Nita ER 20 MEQ Oral Tablet Extended ReleaseIndications:H ypertensive kidney disease with stage 3a chronic kidney disease (HCC),Bilateral leg edema Take 1 Tablet by mouth in the morning and 1 Tablet before bedtime. 180 Tablet 3 11/03/2023 Active Clotrimazole-Betamet hasone 1-0.05 % External Cream (Lotrisone)Indicatio ns:Dermatitis Apply topically to affected area 2 times a day for 28 days. To affected area for 4 weeks, or until healed. 45 g 1 11/20/2023 12/22/19 24 Active hydrOXYzine HCl 50 MG Oral TabletIndications:It amadeo Take 1 Tablet by mouth 3 times a day as needed for Itching. 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 # [id number] Deputy County Attorney: Wilda Serrano MD [phone] Type 2 diabetes mellitus wit h hemoglobin [...] as of this encounter (statuses as of 11/30/2023) Immunizations Name Administration Dates Next Due COVID-19 [...] Sign Reading Time Taken Comments Blood Pressure 124/74 11/30/2023 8:09 AM EST Pulse 80 11/30/2023 8:09 AM EST Temperature 36.4 C (97.5 F) 11/30/2023 8:09 AM ES T Respiratory Rate 20 11/30/2023 8:09 AM EST Oxygen Saturation 98% 11/30/2023 8:09 AM EST Inhaled Oxygen Concentration - - Weight - - Height - - Body Mass Index - - documented in this encounter Progress Notes * Oneida Briggs PA-C - 11/30/2023 8:23 AM EST Subjective: Shannon Cruz is a 88 year old female. Chief Complaint Patient presents with Acute Patient is here today with son present to discuss itching. Itching started about a month ago Patient was seen by Dr. Frederick and he told her to use coconut oil & a cream 2 nights ago itching got really bad so she made this appointment I spoke with patient on the phone yesterday, Dr. Frederick called a script in for her she has not picked it up yet. Patient states she also is experiencing chills Patient declined a weight check today HPI: Patient presents today with her son. She reports she has been more fatigued. She is not sleeping well at night due to itching. She also reports occasionally feeling cold. Patient reports itching has gotten much worse over the past week or so. Itching initially began around August 2023. Itching is mainly on trunk. Patient reports Crestor dose was increased last year and this seems to be around the time the itching began. Patient reports she held her crestor last night and slept much better. She reports less itching last night and today. Patient also reports nausea over the last week or so. No vomiting or diarrhea. She denies any changes in soap or laundry detergents. Patient reports breathing feels okay. She continues to have dyspnea on exertion which she states has been unchanged over the past few months. Medications reviewed with patient. She reports rarely taking buspar. 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 Z79.01 Cardiac pacemaker in situ Z95.0 Sinus node dysfunction ([facility]) I49.5 Lumbar spinal stenosis M48.061 Essential thrombocythemia ([facility]) D47.3 Hx of nonmelanoma skin cancer Z85.828 Bilateral leg edema R60.0 Paroxysmal atrial fibrillation ([facility]) I48.0 Obstructive sleep apnea of adult G47.33 Hypertensive kidney disease with stage 3a chronic kidney disease ([facility]) I12.9, N18.31 Hx of actinic keratosis Z87.2 Chronic hypoxemic respiratory failure ([facility]) J96.11 RADHA (acute kidney injury) ([facility]) N17.9 HFrEF (heart failure with reduced ejection fraction) ([facility]) I50.20 Chronic atrial fibrillation ([facility]) I48.20 Current Outpatient Medications Medication Sig Dispense Refill Azelastine HCl 0.15 % Nasal Solution Administer into nostril 1 [place] in the morning AND 1 [place] before bedtime. 30 mL 0 Ipratropium [place] 0.03 % Nasal Solution Administer into each nostril 2 Sprays 2 times a day as needed for Rhinitis. 30 mL 5 Metoprolol Succinate ER 100 MG Oral Tablet [...] 5 days a week 60 Capsule 5 Rosuvastatin Calcium 20 MG Oral Tablet (Crestor) Take 1 Tablet by mouth in the morning. 90 Tablet 3 Nitroglycerin 0.4 MG Sublingual Tablet Sublingual (Nitrostat) Place 1 Tablet under the tongue as needed for Pain, Chest. May repeat 3 times. If chest pain continues, call 911. 25 Tablet 11 Probiotic Acidophilus Oral Capsule Take by mouth daily. Famotidine 20 MG Oral Tablet (Pepcid) Take 1 Tablet by mouth in the morning. 30 Tablet 11 Isosorbide Mononitrate ER 60 MG Oral Tablet Extended Release 24 Hour (Imdur) Take 1 Tablet by mouthin the morning. 90 Tablet 1 Clopidogrel Bisulfate 75 MG Oral Tablet (pLAVix) Take 1 Tablet by mouth in the morning. 90 Tablet 1 Torsemide 40 MG Oral Tablet Take 80 mg by mouth in the morning. 180 Tablet 3 Warfarin Sodium 1 MG Oral Tablet (Coumadin) Take 1 Tablet by mouth in the morning. Or as directed by coumadin clinic. 90 Tablet 2 Potassium Chloride Nita ER 20 MEQ Oral Tablet Extended Release Take 1 Tablet by mouth in the morning and 1 Tablet before bedtime. 180 Tablet 3 Clotrimazole-Betamethasone 1-0.05 % External Cream (Lotrisone) Apply topically to affected area 2 times a day for 28 days. To affected area for 4 weeks, or until healed. 45 g 1 BENADRYL 25 MG PO TABS 1 TABLET EVERY 4 TO 6 HOURS NEEDED (Patient not taking: Reported on 11/20/2023) GRX ANALGESIC BALM EX OINT Apply topically to affected area. (Patient not taking: Reported on 11/20/2023) Mometasone Furoate 50 MCG/ACT Nasal Suspension Administer 2 Sprays into each nostril in the morning. (Patient not taking: Reported on 11/30/2023) 51 g 3 busPIRone HCl 5 MG Oral Tablet (Buspar) Take 1 Tablet by mouth in the morning and 1 Tablet before bedtime. 20 Tablet 0 Docusate Sodium 100 MG Oral Capsule (Colace) Take 1 Capsule by mouth in the morning and 1 Capsule before bedtime. (Patient not taking: Reported on 10/25/2023) 60 Capsule 5 Senna 8.6 MG Oral Tablet Take 1 Tablet by mouth in the morning. (Patient not taking: Reported on 10/25/2023) 30 Tablet 5 Lactulose 10 GM/15ML Oral Solution (Constulose) Take 15 mL by mouth in the morning and 15 mL at noon and 15 mL before bedtime. (Patient not taking: Reported on 10/25/2023) 240 mL 0 Fexofenadine HCl 60 MG Oral Tablet (Lizzette) Take 1 Tablet by mouth daily as needed for Allergies. 90 Tablet 1 hydrOXYzine HCl 50 MG Oral Tablet Take 1 Tablet by mouth 3 times a day as needed for Itching. (Patient not taking: Reported on 11/30/2023) 40 Tablet 2 No current facility-administered medications for this [...] shortness of breath. Zocor [Simvastatin] Objective: BP 124/74 | Pulse 80 | Temp 36.4 C (97.5 F) (Tympanic) | Resp 20 | SpO2 98% General: alert, healthy, and no distress Heart: Irregularly irregular, rate controlled Lungs: chest symmetric with normal AP diameter, lungs clear to auscultation Extremities: mild edema, improved from previous visits Neuro Exam: alert & oriented x 3 with fluent speech, no focal motor/sensory deficits Pruritus (Primary) - COMPREHENSIVE METABOLIC PANEL; Future; Expected date: 11/30/2023 - CBC WITH WBC DIFFERENTIAL AND ANEMIA REFLEX WORKUP; Future; Expected date: 11/30/2023 - TSH WITH FREE T4 IF INDICATED; Future; Expected date: 11/30/2023 HFrEF (heart failure with reduced ejection fraction) (HCC) HTN, goal below 150/90 Chronic hypoxemic respiratory failure (HCC) Follow Up: Return for Labs Today. | For: Labs Today Chronic medical problems: CKD: renal function slightly improved, continues to follow with nephrology. Losartan held as torsemide was recently increased for HFrEF. CHF without acute exacerbation: torsemide 40. Continue to limit sodium intake. Fluid restrict per cardiology. HFrEF, CAD, chronic atrial fibrillation,, s/p Aortic Valve Replacement, HTN: Follows with cardiology. patient on Warfarin -followed by [facility]. On plavix. Metoprolol succinate 100mg BID Thrombocytopenia: hydroxyurea, follows with hematology Anxiety: Patient has not been using buspar. Dyslipidemia: Rosuvastatin I spent a total of 40-54 minutes (exact time 45 mins) on the date of service in preparation, delivery, and documentation of the care provided to Shannon Cruz excluding any time spent in the performance of separately billed services. Oneida Briggs PA-C documented in this encounter Nursing Notes * Yane Lozano CCMA - 11/30/2023 8:15 AM EST The patient has been properly identified by confirmation of name and date of . Chief Complaint Patient presents with Acute Patient is here today with son present to discuss itching. Itching started about a month ago Patient was seen by Dr. Frederick and he told her to use coconut oil & a cream 2 nights ago itching got really bad so she made this appointment I spoke with patient on the phone yesterday, Dr. Frederick called a script in for her she has not picked it up yet. Patient states she also is experiencing chills Patient declined a weight check today documented in this encounter Plan of Treatment Upcoming Encounters Date Type Department Care Team (Late st Contact Info) Description 12/01/2023 2:15 PM EST Office Visit Hematology[facility] [address] [place] [address] Agustín Sullivan MD [address] [place] [address] 12/01/2023 3:00 PM EST Laboratory Laboratory [facility] [address] [place] [address] [phone] Gilberto Arndt Sc[address] [facility] [place] [address] 12/01/2023 5:10 PM EST Anticoagulation Pharmacy [address] [phone] Pharmacist2, [facility] [address] [address] 12/27/2023 11:40 AM EST Office Visit Nephrology [address] [place] [phone] Alfa Holcomb MD [address] [place] [address] 12/27/2023 3:00 PM EST Office Visit Cardiology, [facility] [address] [place] [address] Bucky Calvo PA-C [address] [place] [address] 01/26/2024 10:40 AM EDT Office Visit Otolaryngology [address] [place] [phone] Keely Tanner PA-C [address] [place] [address] 02/20/2024 12:20 PM EDT Office Visit [address] [phone] Oneida Briggs PA-C [address] [place] [address] 05/27/2024 12:20 PM EDT Office Visit [address] [phone] Yaya Frederick MD [address] [facility] [place] [address] 08/16/2024 11:00 AM EDT Cardiac Studies Cardiology, [facility] [address] [place] [address] [place], [facility] [address] [place] [address] Pending Results Name Type Priority Associated Diagnoses Date /Time COMPREHENSIVE METABOLIC PANEL Lab Routine Pruritus 11/30/2023 9:46 AM EST CBC WITH WBC DIFFERENTIAL AND ANEMIA REFLEX WORKUP Lab Routine Pruritus 11/30/2023 9:46 AM EST TSH WITH FREE T4 IF INDICATED Lab Routine Pruritus 11/30/2023 9:46 AM EST Scheduled Orders Name Type Priority Associated Diagnoses Orde r Schedule COMPREHENSIVE METABOLIC PANEL Lab Routine Pruritus Expected: 11/30/2023 (Approximate), Expires: 11/29/2024 CBC WITH WBC DIFFERENTIAL AND ANEMIA REFLEX WORKUP Lab Routine Pruritus Expected: 11/30/2023 (Approximate), Expires: 11/30/2024 TSH WITH FREE T4 IF INDICATED Lab Routine Pruritus Expected: 11/30/2023 (Approximate), Expires: 11/29/2024 Health Maintenance Due Date Last Done Comments Zoster Vaccines (1 of 2) 1954 Hepatitis B (1 of 3 - Risk 3-dose series) 1996 COVID-19 Vaccine ( season) 2023 09/29/2022, 09/13/2021, 01/05/2021, Additional history exists Depression Screening 02/09/2024 02/08/2023 Albumin/Creatinine Ratio 06/15/20242 023, 05/01/2023, 07/04/2022, Additional history exists CKD HGB USE SMARTSET 45394 11/02/202411/02, 11/02/2023, 08/29/2023, Additional history exists CKD PHOS USE SMARTSET 62601 11/02/202410/23, 05/01/2023, 11/04/2022, Additional history exists DXA Scan 11/09/2024 11/09/2022, 01/21, 11/03/2015, Additional history exists DTaP,Tdap,and Td Vaccines (3 - Td or Tdap) 06/04/2029 06/04/2019, 01/28/2019, 05/26/2008 Pneumococcal Vaccine: 65+ Years Completed 05/24/2016, 11/14/2001 Influenza Vaccine (FLU shot) Completed 05/2023, 07/04/2022, 07/19/2021, Additional history exists VITAMIN D LEVEL ONCE IN A LIFETIME-USE SMARTSET# [id number] Completed 11/02/2023, 05/01/2023, 11/04/2022, Additional history exists GARDASIL-HPV IMMUNIZATION SERIES Aged Out No longer eligible based on patient's age to complete this topic MENINGOCOCCAL (MENACTRA/MENVEO) Aged Out No longer eligible based on patient's age to complete this topic documented as of this encounter Medical Devices Not on filedocumented as of this encounter Visit Diagnoses Diagnosis Pruritus- Primary Unspecified pruritic disorder HFrEF (heart failure with reduced ejection fraction) (HCC) HTN, goal below 150/90 Chronic hypoxemic respiratory failure (HCC) Chronic respiratory failure documented in this encounter Additional Health Concerns Infection Onset Date Last Indicated Resolved Time Varicella zoster 08/01/2022 08/01/2022 documented as of this encounter Care Teams Road Maker Relationship Specialty Start Date End Date Yyaa Frederick MD [address] [place] [id number] PCP - General Family Medicine 05/04/21 documented as of this encounter"
--- OUTSIDE RECORDS SUMMARY | 2023-12-12 09:16 | External Medical Summary ---
Author Name Unknown Address Unknown Organization K09:[facility] [place] [address] Laboratory Report Ordering Provider Test Date Status BARI CANDELARIO 12/01/2023 14:21:32 Final Warfarin Therapy
INR: 2 .0-3.0 conventional 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
INR: 2.5- 3.5 high intensity 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 Observation Date Value Abnormality Reference (Units ) Status PT 12/01/2023 14:21:32 28.7 Above high normal 11 .6-15.2 (seconds) Final INR 12/01/2023 14:21:32 2.7 Above high normal 0. 8-1.2 Final Performing Location [facility] [place] [address]
--- OUTSIDE RECORDS SUMMARY | 2023-12-12 09:16 | External Medical Summary | Summary of Care ---
Author Name Unknown Organization [facility] Address [address] [place] [address] Phone [phone] Care Team Providers Care Community Recreation Coordinator Name Role Phone Yaya Frederick MD Primary Care Provider [phone] Reason for Visit * Reason Comments Outpatient Testing Encounter Details Date Type Department Care Team (Late st Contact Info) Description 11/30/2023 9:40 AM [facility] Laboratory [facility] [phone] [address] Pruritus Allergies Active Allergy Reactions Criticality Noted Date [...] SolutionIndications:P ost-nasal discharge Administer into nostril 1 [place] in the morning AND 1 [place] before bedtime. 30 mL 0 11/30/2021 Active Ipratropium [place] 0.03 % Nasal Solution Administer into [...] Tablet (Crestor)Indications: NSTEMI (non-ST elevated myocardial infarction) ([facility]) Take 1 Tablet by mouth in the morning. 90 Tablet 3 05/18/2023 Active Nitroglycerin 0.4 MG Sublingual Tablet Sublingual (Nitrostat)Indication s:NSTEMI (non-ST elevated myocardial infarction) ([facility]) Place 1 Tablet under the [...] rEF (heart failure with reduced ejection fraction) ([facility]) Take 1 Tablet by mouth in the morning. 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 # [phone] Piano Tuner: Wilda Serrano MD [phone] Type 2 diabetes mellitus wit h hemoglobin A1c goal of less than 7.0% 11/03/2006 08/15/2007 Overview: ICD-10 update of inactive term PURE HYPERCHOLESTEROLEM 11/03/200609/22 Overview: Per Lipid Taxonomy. 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 therapy 05/05/2006 01/23/2009 Overview: ICD-10 update of inactive term Anticoagulation management encounter 05/05/2006 10/03/2019 Unspecified viral infection, in conditions classified elsewhere and of unspecified site 06/08/2005 09/25/2007 Menopause 12/19/2001 12/27/2017 FEM STRESS INCONTINENCE 05/10/200111/23 documented as of this encounter (statuses as of 11/30/2023) Immunizations Name Administration Dates Next Due COVID-19 mRNA, LNP-s, No Pre serve, 2-Dose Series ([email or web address]) 09/13/2021,01/05/2021,12/15/2020 Covid-19, Mrna, Lnp-s, Pf, B ivalent, [...] 12/01/2023 2:15 PM EST Office Visit Hematology/Oncology [facility] [address] [place] [address] Agustín Sullivan MD [address] [place] [address] 12/01/2023 3:00 PM EST Laboratory Laboratory [facility] [place] [address] [place] [phone] Park, Lab [facility] 200 [facility] [place] [facility] [place] [address] 12/01/2023 5:10 PM EST Anticoagulation Pharmacy [address] [phone] Pharmacist2, [facility] [address] [address] 12/27/2023 11:40 AM EST Office Visit Nephrology [address] [place] [phone] Alfa Holcomb MD [address] [place] [address] 12/27/2023 3:00 PM EST Office Visit Cardiology, [facility] [address] [place] [address] Bucky Calvo PA-C [address] [place] [address] 01/26/2024 10:40 AM EDT Office Visit Otolaryngology [address] [place] [phone] Keely Tanner PA-C [address] [place] [address] 02/20/2024 12:20 PM EDT Office Visit Family Practice [address] [place] [phone] Oneida Briggs PA-C [address] [place] [address] 05/27/2024 12:20 PM EDT Office Visit Family [facility] [address] [place] [address] Yaya Frederick MD [address] [place], [place] [phone] 08/16/2024 11:00 AM EDT Cardiac Studies Cardiology, [facility] 132 [facility] [place] [address] [facility] [facility] [address] [facility] [place] [address] Pending Results Name Type Priority Associated Diagnoses Date /Time COMPREHENSIVE METABOLIC PANEL Lab Routine Pruritus 11/30/2023 9:46 AM EST CBC WITH WBC DIFFERENTIAL AND ANEMIA REFLEX WORKUP Lab Routine Pruritus 11/30/2023 9:46 AM EST TSH WITH FREE T4 IF INDICATED Lab Routine [place] 11/30/2023 9:46 AM EST ANEMIA CBC Lab Routine [place]ur[place] 11/30/2023 9:46 AM EST DIFFERENTIAL, AUTOMATED Lab Routine Pruritus 11/30/2023 9:46 AM EST ANEMIA REFLEX CHEMISTRY HOLD Lab Routine Pruritus 11/30/2023 9:46 AM EST Health Maintenance Due Date Last Done Comments Zoster Vaccines (1 of 2) 1954 Hepatitis B (1 of 3 - Risk 3-dose series) 1996 COVID-19 Vaccine ( season) 2023 09/29/2022, 09/13/2021, 01/05/2021, Additional history exists Depression Screening 02/09/2024 02/08/2023 Albumin/Creatinine Ratio 06/15/202406/15/2 023, 05/01/2023, 07/04/2022, Additional history exists CKD HGB USE SMARTSET 90199 11/02/202411/02, 11/02/2023, 08/29/2023, Additional history exists CKD PHOS USE SMARTSET 51999 11/02/202410/23, 05/01/2023, 11/04/2022, Additional history exists DXA Scan 11/09/2024 11/09/2022, 01/21, 11/03/2015, Additional history exists DTaP,Tdap,and Td Vaccines (3 - Td or Tdap) 06/04/2029 06/04/2019, 01/28/2019, 05/26/2008 Pneumococcal Vaccine: 65+ Years Completed 05/24/2016, 11/14/2001 Influenza Vaccine (FLU shot) Completed 05/2023, 07/04/2022, 07/19/2021, Additional history exists VITAMIN D LEVEL ONCE IN A LIFETIME-USE SMARTSET# [id number] Completed 11/02/2023, 05/01/2023, 11/04/2022, Additional history exists GARDASIL-HPV IMMUNIZATION SERIES Aged Out No longer eligible based on patient's age to complete this topic MENINGOCOCCAL (MENACTRA/MENVEO) Aged Out No longer eligible based on patient's age to complete this topic documented as of this encounter Medical Devices Not on filedocumented as of this encounter Visit Diagnoses Diagnosis Pruritus Unspecified pruritic disorder documented in this encounter Additional Health Concerns Infection Onset Date Last Indicated Resolved Time Varicella zoster 08/01/2022 08/01/2022 documented as of this encounter Care Teams Community Recreation Coordinator Relationship Specialty Start Date End Date Yaya Frederick MD [address] [place] [address] [phone] PCP - General Family Medicine 05/04/21 documented as of this encounter
--- OUTSIDE RECORDS SUMMARY | 2023-12-12 09:16 | External Medical Summary | Summary of Care ---
Author Name Unknown Organization [facility] Address [address] [place] [address] Phone [phone] Care Team Providers Care Physicist Solid State Name Role Phone Yaya Frederick MD Primary Care Provider [phone] Reason for Visit * Reason Comments Acute [...] Encounter Details Date Type Department Care Team ([facility] Contact Info) Description 11/30/2023 8:20 AM EST Office Visit [facility] [address] [place] [phone] Oneida Briggs PA-C [address] [place] [phone] Pruritus*; HFrEF (heart failure with reduced ejection [...] SolutionIndications: Post-nasal discharge Administer into nostril 1 [place] in the morning AND 1 [place] before bedtime. 30 mL 0 11/30/2021 Active Ipratropium [place] 0.03 % Nasal Solution Administer into each [...] :NSTEMI (non-ST elevated myocardial infarction) ([facility]) Take 1 Tablet by mouth in the morning. 90 Tablet 3 05/18/2023 Active Nitroglycerin 0.4 MG Sublingual Tablet Sublingual (Nitrostat)Indicatio ns:NSTEMI (non-ST elevated myocardial infarction) ([facility] disease with stage 3a chronic kidney disease ([facility]),Bilateral leg edema Take 80 mg by mouth [...] dental procedure 2 Capsule 1 10/25/2023 11/30/19 24 Discontinu ed(Medicat ion List Clean Up) documented [...] 04/17/2014 senior living current use of anticoagulant therapy 0 11/12/2010 [...] Stent Restenosis in Drug-Eluting Stents Project # [phone] Card Grinder Helper: Wilda Serrano MD [phone] GENOMICS CARDIO RESEARCH OTHER*[id number] 01/09/2007 11/29/2016 Overview: Renamed Per Clinical Trials Billing Project. 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 # [phone] Card Grinder Helper: Wilda Serrano MD [phone] Type 2 diabetes mellitus wit h hemoglobin A1c goal of less than 7.0% 11/03/2006 08/15/2007 Overview: ICD-10 update of inactive term PURE HYPERCHOLESTEROLEM 11/03/200609/22 Overview: Per Lipid Taxonomy. 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/20 08 senior living current use of ant icoagulant therapy 05/05/2006 01/23/2009 Overview: ICD-10 update of inactive term Anticoagulation management encounter 05/05/2006 10/03/2019 Unspecified viral infection, in conditions classified elsewhere and of unspecified site 06/08/2005 09/25/2007 Menopause 12/19/2001 12/27/2017 FEM STRESS INCONTINENCE 05/10/200111/23 documented as of this encounter (statuses as of 12/01/2023) Immunizations Name Administration Dates Next Due COVID-19 mRNA, LNP-s, No Pre serve, 2-Dose Series (Pins) 09/13/2021,01/05/2021,12/15/2020 Covid-19, Mrna, Lnp-s, Pf, B ivalent, 30 Mcg, IM, 12 yrs and above (Pfizer) 09/29/2022 H1N1 2009 Influenza, IM 10/08/2009 Pneumococcal Conjugate Vacc, 13 Valent (Prevnar) 05/24/2016 Pneumococcal Polysaccharide PPV23 (Pneumovax) 11/14/2001 Season Influenza, Quad, PF, Adjuvanted, 65+ Yrs, IM (FLUAD) 08/03/2020 Seasonal Influenza Virus Vac cine, Unspecified Formulation 07/19/2021,08/03/2020,07/23/2019,05/2018,08/29/2017,07/28/2016,07/05/20 16,07/07/2014,07/22/2013,07/03/2012,0 07/12/2011,07/21/2010,09/12/2009,08/04,07/23/2007,08/02/2006, 5,08/14/2003,10/01/2001 Seasonal Influenza, PF, 6 M & above, [...] I10 DYSLIPIDEMIA, GOAL LDL BELOW 70 E78.5 senior living current use of anticoagulant therapy Z79.01 Cardiac pacemaker in situ Z95.0 Sinus node dysfunction (HCC) I49.5 Lumbar spinal stenosis M48.061 Essential thrombocythemia ([facility]) D47.3 Hx of nonmelanoma skin cancer Z85.828 Bilateral leg edema R60.0 Paroxysmal atrial fibrillation ([facility]) I48.0 Obstructive sleep apnea of adult G47.33 Hypertensive kidney disease with stage 3a chronic kidney disease (HCC) I12.9, N18.31 Hx of actinic keratosis Z87.2 Chronic hypoxemic respiratory failure ([facility]) J96.11 RADHA (acute kidney injury) ([facility]) N17.9 HFrEF (heart failure with reduced ejection fraction) ([facility]) I50.20 Chronic atrial fibrillation ([facility]) I48.20 Current Outpatient Medications Medication Sig Dispense Refill Azelastine HCl 0.15 % Nasal Solution Administer into nostril 1 [place] in the morning AND 1 [place] before bedtime. 30 mL 0 Ipratropium [place] 0.03 % Nasal Solution Administer into each [...] limit sodium intake. Fluid restrict per cardiology. HFpEF, CAD, chronic atrial fibrillation,, s/p Aortic Valve [...] Office Visit Hematology/Oncology [facility] [address] [place] [address] Agustín Sullivan MD [address] [place] [address] 12/01/2023 3:00 PM EST Laboratory Laboratory Scenery [facility] [address] [place] [phone] [place], Lab Scene [address] [place] [address] 12/01/2023 5:30 PM EST Anticoagulation Pharmacy [address] [phone] Pharmacist2, [facility] [address] [address] 12/27/2023 11:40 AM EST Office Visit Nephrology [address] [place] [phone] Alfa Holcomb MD [address] [place] [address] 12/27/2023 3:00 PM EST Office Visit Cardiology, [facility] [address] [place] [address] Bucky Calvo PA-C [address] [facility] [place] [address] 01/26/2024 10:40 AM EDT Office Visit Otolaryngology [address] [place] [phone] Keely Tanner PA-C [address] [place] [address] 02/20/2024 12:20 PM EDT Office Visit Family Practice [address] [phone] Oneida Briggs PA-C [address] [place] [address] 05/27/2024 12:20 PM EDT Office Visit Family [facility] [address] [place] [phone] Yaya Frederick MD 68 [place] [address] 08/16/2024 11:00 AM EDT Cardiac Studies Cardiology, [facility] 132 [facility] [place] [address] [facility] [place] [address] Health Maintenance Due Date Last Done Comments Zoster Vaccines (1 of 2) 1954 Hepatitis B (1 of 3 - Risk 3-dose series) 1996 COVID-19 Vaccine ( season) 2023 09/29/2022, 09/13/2021, 01/05/2021, Additional history exists Depression Screening 02/09/2024 02/08/2023 Albumin/Creatinine Ratio 06/15/2024 023, 05/01/2023, 07/04/2022, Additional history exists CKD PHOS USE SMARTSET 62550 11/02/202410/23, 05/01/2023, 11/04/2022, Additional history exists DXA Scan 11/09/2024 11/09/2022, 01/21, 11/03/2015, Additional history exists CKD HGB USE SMARTSET 92110 11/30/202411/30, 11/30/2023, 11/02/2023, Additional history exists DTaP,Tdap,and Td Vaccines (3 - Td or Tdap) 06/04/2029 06/04/2019, 01/28/2019, 05/26/2008 Pneumococcal Vaccine: 65+ Years Completed 05/24/2016, 11/14/2001 Influenza Vaccine (FLU shot) Completed 05/2023, 07/04/2022, 07/19/2021, Additional history exists VITAMIN D LEVEL ONCE IN A LIFETIME-USE SMARTSET# 77931 Completed 11/02/2023, 05/01/2023, 11/04/2022, Additional history exists GARDASIL-HPV IMMUNIZATION SERIES Aged Out No longer eligible based on patient's age to complete this topic MENINGOCOCCAL (MENACTRA/MENVEO) Aged Out No longer eligible based on patient's age to complete this topic documented as of this encounter Medical Devices Not on filedocumented as of this encounter Results * (ABNORMAL) TSH WITH FREE T4 IF INDICATED (11/30/2023 9:46 AM EST) TSH 5.56(H) 0.27 - 4.20 uIU/mL 11/30/2023 8:51 PM EST [facility] Blood Venous blood specimen / Unknown Venipuncture / Unknown 11/30/2023 9:46 AM EST 11/30/2023 9:46 AM EST Oneida Briggs PA-C LAB BLOOD ORDERABLE S [facility] [address] [place] [address] * (ABNORMAL) COMPREHENSIVE METABOLIC PANEL (11/30/2023 9:46 AM EST) BUN 45(H) 6 - 20 mg/dL 11/30/2023 8:22 PM EST [facility] Creatinine 2.3(H) 0.5 - 1.0 mg/dL 11/30/2023 8:22 PM EST [facility] Estimated Glomerular Filtration Rate 21(L) >=60 mL/min 11/30/2023 8:22 PM EST [facility] Comment:eGFR is calculated b ased on the CKD-EPI 2020 equation Sodium 142 135 - 146 mmol/L 11/30/2023 8:22 PM EST [facility] Potassium 4.5 3.5 - 5.1 mmol/L 11/30/2023 8:22 PM EST [facility] Chloride 100 98 - 107 mmol/L 11/30/2023 8:22 PM EST [facility] CO2 30 22 - 32 mmol/L 11/30/2023 8:22 PM EST [facility] Anion Gap 12 7 - 15 mmol/L 11/30/2023 8:22 PM EST [facility] Glucose 136(H) 70 - 120 mg/dL 11/30/2023 8:22 PM EST [facility] Albumin 4.0 3.8 - 5.0 g/dL 11/30/2023 8:22 PM EST [facility] AST 32 10 - 35 U/L 11/30/2023 8:22 PM EST [facility] Alkaline Phosphatase 163(H) 35 - 130 U/L 11/30/2023 8:22 PM EST [facility] Bilirubin, Total 1.3(H) <=1.2 mg/dL 11/30/2023 8:22 PM EST [facility] Calcium 10.0 8.4 - 10.2 mg/dL 11/30/2023 8:22 PM EST [facility] Protein 7.6 6.0 - 8.3 g/dL 11/30/2023 8:22 PM EST [facility] ALT 17 10 - 35 U/L 11/30/2023 8:22 PM EST [facility] Blood Venous blood specimen / Unknown Venipuncture / Unknown 11/30/2023 9:46 AM EST 11/30/2023 9:46 AM EST nOeida Briggs PA-C LAB BLOOD ORDERABLE S [facility] [address] [place] [address] documented in this encounter Visit Diagnoses Diagnosis Pruritus- Primary Unspecified pruritic disorder HFrEF (heart failure with reduced ejection fraction) (HCC) HTN, goal below 150/90 Chronic hypoxemic respiratory failure (HCC) Chronic respiratory failure documented in this encounter Additional Health Concerns Infection Onset Date Last Indicated Resolved Time Varicella zoster 08/01/2022 08/01/2022 documented as of this encounter Care Teams Physicist Solid [place] Relationship Specialty Start Date End Date Yaya Frederick MD [address] [place] [phone] PCP - General Family Medicine 05/04/21 documented as of this encounter"
--- OUTSIDE RECORDS SUMMARY | 2023-12-12 09:16 | External Medical Summary | Summary of Care ---
Author Name Unknown Organization [facility] Address [address] [place] [address] Phone [phone] Care Team Providers Care Diesel Pile Hammer Operator Name Role Phone Yaya Frederick MD Primary Care Provider [phone] Reason for Visit * Reason Comments Follow Up 6m Encounter Details Date Type Department Care Team (Latest Contact Info) Description 12/01/2023 2:15 PM EST [facility] [place] [address] [place] [address] Agustín Sullivan MD [address] [place] [address] Essential thrombocythemia (HCC)* Allergies Active Allergy Reactions Criticality Noted Date [...] SolutionIndications:P ost-nasal discharge Administer into nostril 1 [place] in the morning AND 1 [place] before bedtime. 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 # [phone] Passport Support Associate: Wilda Serrano MD [phone] Type 2 diabetes mellitus wit h hemoglobin A1c goal of less than 7.0% 11/03/2006 08/15/2007 Overview: ICD-10 update of inactive term PURE HYPERCHOLESTEROLEM 11/03/200609/22 Overview: Per Lipid Taxonomy. 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/20 08 [facility] current use of ant icoagulant therapy 05/05/2006 01/23/2009 Overview: ICD-10 update of inactive term Anticoagulation management encounter 05/05/2006 10/03/2019 Unspecified viral infection, in conditions classified elsewhere and of unspecified site 06/08/2005 09/25/2007 Menopause 12/19/2001 12/27/2017 FEM STRESS INCONTINENCE 05/10/200111/23 documented as of this encounter (statuses as of 12/01/2023) Immunizations Name Administration Dates Next Due COVID-19 mRNA, LNP-s, No Pre serve, 2-Dose Series ([employer]) 09/13/2021,01/05/2021,12/15/2020 Covid-19, Mrna, Lnp-s, Pf, B [...] Sign Reading Time Taken Comments Blood Pressure 104/67 12/01/2023 1:58 PM EST Pulse 83 12/01/2023 1:58 PM EST Temperature - - Respiratory Rate 16 12/01/2023 1:58 PM EST Oxygen Saturation 94% 12/01/2023 1:58 PM EST Inhaled Oxygen Concentration - - Weight 80.7 kg (177 lb 14.4 oz) 12/01/2023 1:58 PM EST Height 149.9 cm (4' 11") 12/01/2023 1:58 PM EST Body Mass Index 35.93 12/01/2023 1:58 PM EST documented in this encounter Progress Notes * Agustín Sullivan MD - 12/01/2023 2:15 PM EST Hematology/Oncology Outpatient Clinic note [facility] [address] [place] [address] Name: Shannon Cruz Date: 10/26/2021 CHIEF COMPLAINT: Shannon Cruz is a 88 year old female patient here today for [...] in late 2014 showed platelet count of 427881, H&H of 13.6/40, WBC of 6300 -WBC 44978, H&H of 13.3/40.2, MCV 96.2, Platelet count [...] -permanent pacemaker placement, she follows with a special forces warrant officer on a regular basis. -S/P hysterectomy and oophorectomy about 12 years back. HISTORY OF PRESENT ILLNESS: She has come to the clinic for the follow-up, accompanied by her son in the office. Currently she is on hydroxyurea 5 days in a week (500 mg), tolerated well, she is on oxygen treatment for the last 2 years, 3 liters/minute, ambulating slowly with the help of the walker, no new bleeding from any sites, no thrombotic complications, leg edema is stable, she is on diuretic therapy, current weight around 177 lb. She is on oral Coumadin, no new bleeding complications. Past Medical History: Diagnosis Date Anticoagulation management [...] Resource Strain: Not on file Food Insecurity: No Food Insecurity (10/28/2019) Hunger Vital Sign Worried About Running Out of Food in the Last Year: Never true Ran Out of Food in the Last Year: Never true Transportation Needs: Not on file Physical Activity: [...] compatible patecmaker insertion intraoperative fluoroscopic guidance [facility]04/08/14 KNEE ARTHROSCOPY/ARTHROPLASTY 09/2010 dr salcedo LIGATE/CUT OVIDUCT(S) 1963 OTHER 12/27 RCA drug eluting stent REPLACEMENT AORTIC VALVE, BYPASS WITH PROSTHETIC VALVE 04/27 Maury Bovine AVR TOTAL ABD HYSTERECTOMY W/WO REMOVAL [...] area. (Patient not taking: Reported on 11/20/2023) Azelastine HCl 0.15 % Nasal Solution Administer into nostril 1 [place] in the morning AND 1 [place] before bedtime. 30 mL 0 Ipratropium [place] 0.03 % Nasal Solution Administer into [...] as needed for Allergies. 90 Tablet 1 Isosorbide Mononitrate ER 60 MG Oral Tablet [...] weeks, or until healed. 45 g 1 hydrOXYzine HCl 50 MG Oral Tablet Take 1 Tablet by mouth 3 times a day as needed for Itching. (Patient not taking: Reported on 11/30/2023) 40 Tablet 2 No current facility-administered medications for this visit. BP 104/67 (BP Site: Left Arm, BP Position: Sitting, BP Cuff Size: Large) | Pulse 83 | Resp 16 | Ht1.499 m (4' 11") | Wt 80.7 kg (177 lb 14.4 oz) | SpO2 94% | BMI 35.93 kg/m | BSA 1.83 m Constitutional: Patient is alert, cooperative and oriented x 3. Well built woman, Patient is in no acute distress. HEENT: No icterus, no pallor, Throat and pharynx normal. Sinuses are non-tender. Neck: Supple and without lymphadenopathy or masses. No JVD. No Palpable supraclavicular lymph nodes. Lungs: Clear to auscultation. Bilateral symmetric air entry. No wheezing or rhonchi. Cardiovascular: Normal heart sounds, no murmurs.Regular rate and rhythm. Abdomen: soft, nontender, no hepatomegaly, no splenomegaly. Bowel sounds are normal. Neurological: No gross focal neurological deficit; walks with help of the walker. Extremities: No finger clubbing, No cyanosis. No leg edema. Skin:: No skin rash. SPINE: No spinal or paraspinal tenderness. LABS: Blood workup done on 04/21/2022: -WBC 7300, H&H of 11.9/37, MCV 170, Platelet 250,000. -BUN/Creat: 26/1.1 (02/18/2022). - Ferritin level --> 286 (May 2022). Blood workup done on 11/04/2022: -Absolute reticulocyte count --> 62,800 BUN/Creat: /1.2 -WBC 6100, H&H of 11.5/37.4, Platelet 343,000. Blood workup done on 05/15/2023: -WBC 7006, H&H of 11.3/37.9, Platelet count 688871. - WBC 6200, H&H of 12.1/39.7, platelet count of 226,000, MCV 115 (11/30/2023). IMPRESSION: Essential thrombocythemia Presently she is on hydroxyurea at 500 mg 5 days in a week.. I reviewed her blood workup done recently, now normal blood counts, Platelet count is 979413, She is already on oral Coumadin treatment for underlying cardiac arrhythmia. Will continue hydroxyurea at the same dose. She will have CBCD checkup every 3 monthly.p 14472 Will see her back in the clinic [...] provider listed above.) documented in this encounter Nursing Notes * Sadaf Navarrete LPN - 12/01/2023 1:59 PM EST Patient identifed by name and birthdate Do you have any concerns about pain management for today's visit? No Living Will or Advance Directive for Health Care as noted on the problem list. [facility] is a way you can talk to your provider on line through e-mail. Would you like to sign up? I can activate it for you? ALREADY ACTIVE Filed Vitals: 12/01/23 1358 BP: 104/67 Pulse: 83 Resp: 16 SpO2: 94% Weight: 80.7 kg (177 lb 14.4 oz) Height: 1.499 m (4' 11") Patient was instructed to not get up on the exam table/exam chair until directed and assisted by their provider; patient is to remain seated in the chair/ wheelchair/ exam table/ exam chair for fall prevention and safety reasons. Patient is aware to have assistance to step down off exam table/exam chair with personnel. Patient voiced full comprehension of instructions. documented in this encounter Plan of Treatment Upcoming Encounters Date Type Department Care Team (Latest Contact Info) Description 12/01/2023 3:00 PM EST Laboratory Laboratory [facility] [address] [place] [phone] [facility] 200 [facility] [place] [address] S/P aortic valve replacement 12/01/2023 5:30 PM EST Anticoagulation Pharmacy [address] [phone] Pharmacist2, [facility] [address] [address] 12/05/2023 11:30 AM EST Imaging Radiology, [address] [phone] 12/27/2023 11:40 AM EST Office Visit Nephrology [facility] [address] [facility] [address] [place] [address] Alfa Holcomb MD 200 [facility] [place] [address] 12/27/2023 3:00 PM EST Office Visit Cardiology, [facility] [address] [facility] [place] [address] Bucky Calvo PA-C [address] [place] [address] 01/26/2024 10:40 AM EDT Office Visit Otolaryngology [facility] [address] [facility] [address] [place] [phone] Keely Tanner PA-C [address] [place] [address] 02/20/2024 12:20 PM EDT Office Visit [facility] [address] [place] [address] Oneida Briggs PA-C [address] [place] [address] 05/27/2024 12:20 PM EDT Office Visit [facility] [address] [place] [address] Yaya Frederick MD [address] [place] [address] 06/04/2024 2:45 PM EDT Office Visit Hematology/Oncology [facility] [address] [place] [address] Agustín Sullivan MD [address] [place] [address] 08/16/2024 11:00 AM EDT Cardiac Studies Cardiology, [facility] [address] [place] [address] Aldo Pacer [facility] [address] [place] [address] Health Maintenance Due Date Last Done Comments Zoster Vaccines (1 of 2) 1954 Hepatitis B (1 of 3 - Risk 3-dose series) 1996 COVID-19 Vaccine ( season) 2023 09/29/2022, 09/13/2021, 01/05/2021, Additional history exists Depression Screening 02/09/2024 02/08/2023 Albumin/Creatinine Ratio 06/15/2024 023, 05/01/2023, 07/04/2022, Additional history exists CKD PHOS USE SMARTSET 33384 11/02/202410/23, 05/01/2023, 11/04/2022, Additional history exists DXA Scan 11/09/2024 11/09/2022, 01/21, 11/03/2015, Additional history exists CKD HGB USE SMARTSET 86062 11/30/202411/30, 11/30/2023, 11/02/2023, Additional history exists DTaP,Tdap,and Td Vaccines (3 - Td or Tdap) 06/04/2029 06/04/2019, 01/28/2019, 05/26/2008 Pneumococcal Vaccine: 65+ Years Completed 05/24/2016, 11/14/2001 Influenza Vaccine (FLU shot) Completed 05/2023, 07/04/2022, 07/19/2021, Additional history exists VITAMIN D LEVEL ONCE IN A LIFETIME-USE SMARTSET# 19509 Completed 11/02/2023, 05/01/2023, 11/04/2022, Additional history exists GARDASIL-HPV IMMUNIZATION SERIES Aged Out No longer eligible based on patient's age to complete this topic MENINGOCOCCAL (MENACTRA/MENVEO) Aged Out No longer eligible based on patient's age to complete this topic documented as of this encounter Medical Devices Not on filedocumented as of this encounter Visit Diagnoses Diagnosis Essential thrombocythemia (HCC)- Primary Essential thrombocythemia S/P aortic valve replacement Heart valve replaced by other means documented in this encounter Additional Health Concerns Infection Onset Date Last Indicated Resolved Time Varicella zoster 08/01/2022 08/01/2022 documented as of this encounter Care Teams Diesel Pile Hammer Operator Relationship Specialty Start Date End Date Yaya Frederick MD [address] [place] [address] PCP - General Family Medicine 05/04/21 documented as of this encounter
--- OUTSIDE RECORDS SUMMARY | 2023-12-12 09:16 | External Medical Summary | Summary of Care ---
Author Name Unknown Organization [facility] Address [address] [place] [address] Phone [phone] Care Team Providers Care Sill Worker Name Role Phone Yaya Frederick MD Primary Care Provider [phone] Reason for Visit * Reason Comments Outpatient Testing Encounter Details Date Type Department Care Team (Late st Contact Info) Description 12/01/2023 3:00 PM EST Laboratory Laboratory [facility] [place] [address] [place] [phone] [facility] 200 [facility] [place] [address] S/P aortic valve replacement Allergies Active Allergy Reactions Criticality Noted Date [...] SolutionIndications:P ost-nasal discharge Administer into nostril 1 [place] in the morning AND 1 [place] before bedtime. 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 icoagulant therapy 05/05/2006 01/23/2009 Overview: ICD-10 update of inactive term Anticoagulation management encounter 05/05/2006 10/03/2019 Unspecified viral infection, in conditions classified elsewhere and of unspecified site 06/08/2005 09/25/2007 Menopause 12/19/2001 12/27/2017 FEM STRESS INCONTINENCE 05/10/200111/23 documented as of this encounter (statuses as of 12/01/2023) Immunizations Name Administration Dates Next Due COVID-19 mRNA, LNP-s, No Pre serve, 2-Dose Series ([employer]) 09/13/2021,01/05/2021,12/15/2020 Covid-19, Mrna, Lnp-s, Pf, B ivalent, [...] Team (Late st Contact Info) Description 12/01/2023 5:30 PM EST Anticoagulation Pharmacy [address] [phone] Pharmacist2, [place] [address] 12/05/2023 11:30 AM EST Imaging Radiology, [address] [phone] 12/27/2023 11:40 AM EST Office Visit Nephrology [address] [place] [address] Alfa Holcomb MD 200 [place] [address] 12/27/2023 3:00 PM EST Office Visit Cardiology, [facility] [address] [place] [address] Bucky Calvo PA-C [address] [place] [address] 01/26/2024 10:40 AM EDT Office Visit Otolaryngology [address] [place] [phone] Keely Tanner PA-C [address] [place] [address] 02/20/2024 12:20 PM EDT Office Visit [address] [phone] Oneida Briggs PA-C [address] [place] [address] 05/27/2024 12:20 PM EDT Office Visit [address] [phone] Yaya Frederick MD [address] [place] [address] [place] [address] 06/04/2024 2:45 PM EDT Office Visit Hematology/Oncology [facility] 200 [facility] [place] [address] Agustín Sullivan MD 200 [facility] [place] [address] 08/16/2024 11:00 AM EDT Cardiac Studies [facility]iology, [facility] [place] [address] [facility] [address] [facility] [place] [address] Pending Results Name Type Priority Associated Diagnoses Date /Time PT INR Lab Routine S/P aortic valve replacement 12/01/2023 2:21 PM EST Health Maintenance Due Date Last Done Comments Zoster Vaccines (1 of 2) 1954 Hepatitis B (1 of 3 - Risk 3-dose series) 1996 COVID-19 Vaccine ( season) 2023 09/29/2022, 09/13/2021, 01/05/2021, Additional history exists Depression Screening 02/09/2024 02/08/2023 Albumin/Creatinine Ratio 06/15/2024 0824/2 023, 05/01/2023, 07/04/2022, Additional history exists CKD PHOS USE SMARTSET 26977 11/02/202410/23, 05/01/2023, 11/04/2022, Additional history exists DXA Scan 11/09/2024 11/09/2022, 01/21, 11/03/2015, Additional history exists CKD HGB USE SMARTSET 33679 11/30/202411/30, 11/30/2023, 11/02/2023, Additional history exists DTaP,Tdap,and Td Vaccines (3 - Td or Tdap) 06/04/2029 06/04/2019, 01/28/2019, 05/26/2008 Pneumococcal Vaccine: 65+ Years Completed 05/24/2016, 11/14/2001 Influenza Vaccine (FLU shot) Completed 05/2023, 07/04/2022, 07/19/2021, Additional history exists VITAMIN D LEVEL ONCE IN A LIFETIME-USE SMARTSET# 58742 Completed 11/02/2023, 05/01/2023, 11/04/2022, Additional history exists [...] documented as of this encounter Care Teams Sill Worker Relationship Specialty Start Date End Date Yaya Frederick MD [address] [place] [address] PCP - General Family Medicine 05/04/21 documented as of this encounter
--- OUTSIDE RECORDS SUMMARY | 2023-12-12 09:16 | External Medical Summary | Summary of Care ---
Author Name Unknown Organization [facility] Address [address] [place] [address] Phone [phone] Care Team Providers Care Nuclear Waste Management Engineer Name Role Phone Yaya Frederick MD Primary Care Provider [phone] Reason for Visit * Reason Comments Outpatient Testing Encounter Details Date Type Department Care Team (Late st Contact Info) Description 11/30/2023 9:40 AM [facility] Laboratory [facility] [phone] [address] [place] Allergies Active Allergy Reactions Criticality Noted [...] SolutionIndications:P ost-nasal discharge Administer into nostril 1 [place] in the morning AND 1 [place] before bedtime. 30 mL 0 11/30/2021 Active Ipratropium [place] 0.03 % Nasal Solution Administer into each [...] Tablet (Crestor)Indications: NSTEMI (non-ST elevated myocardial infarction) ([facility]) Take 1 Tablet by mouth in the morning. 90 Tablet 3 05/18/2023 Active Nitroglycerin 0.4 MG Sublingual Tablet Sublingual (Nitrostat)Indication s:NSTEMI (non-ST elevated myocardial infarction) ([facility]) Place 1 Tablet under the tongue [...] rEF (heart failure with reduced ejection fraction) ([facility]) Take 1 Tablet by mouth in the morning. 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 [address] [place] [address] Agustín Sullivan MD [address] [place] [address] 12/01/2023 3:00 PM EST Laboratory Laboratory [facility] [place] [address] [place] [phone] [place], Lab [facility] 200 [facility] [place] [facility] [place] [address] 12/01/2023 5:10 PM EST Anticoagulation Pharmacy [address] [phone] Pharmacist2, [facility] [address] [address] 12/27/2023 11:40 AM EST Office Visit Nephrology [address] [place] [phone] Alfa Holcomb MD [address] [place] [address] 12/27/2023 3:00 PM EST Office Visit Cardiology, [facility] [address] [place] [address] Bucky Calvo PA-C [address] [place] [address] 01/26/2024 10:40 AM EDT Office Visit Otolaryngology [address] [place] [phone] Keely Tanner PA-C [address] [place] [address] 02/20/2024 12:20 PM EDT Office Visit Family Practice [address] [place] [phone] Oneida Briggs PA-C [address] [place] [address] 05/27/2024 12:20 PM EDT Office Visit Family [facility] [address] [place] [address] Yaya Frederick MD 68 [place], [place] [phone] 08/16/2024 11:00 AM EDT Cardiac Studies Cardiology, [facility] 132 [facility] [place] [address] [facility] Pacer [facility] [address] [place] [address] Pending Results Name Type Priority Associated Diagnoses [...] Additional history exists CKD HGB USE SMARTSET 32164 11/02/202411/02, 11/02/2023, 08/29/2023, Additional history exists CKD PHOS USE SMARTSET 14244 11/02/202410/23, 05/01/2023, 11/04/2022, Additional history exists DXA Scan 11/09/2024 11/09/2022, 01/21, 11/03/2015, Additional history exists DTaP,Tdap,and Td Vaccines (3 - Td or Tdap) 06/04/2029 06/04/2019, 01/28/2019, 05/26/2008 Pneumococcal Vaccine: 65+ Years Completed 05/24/2016, 11/14/2001 Influenza Vaccine (FLU shot) Completed 05/2023, 07/04/2022, 07/19/2021, Additional history exists VITAMIN D LEVEL ONCE IN A LIFETIME-USE SMARTSET# 42194 Completed 11/02/2023, 05/01/2023, 11/04/2022, Additional history exists [...] documented as of this encounter Care Teams Nuclear Waste Management Engineer Relationship Specialty Start Date End Date Yaya Frederick MD [address] [place] [phone] PCP - General Family Medicine 05/04/21 documented as of this encounter
--- OUTSIDE RECORDS SUMMARY | 2023-12-12 09:17 | External Medical Summary ---
Author Name Unknown Address Unknown Organization K01:[facility] [address] [place] [address] Laboratory Report Ordering Provider Test Date Status ERENDIRA CÁRDENAS 11/30/2023 09:46:33 Final Observation Date Value Abnormality Reference (Units ) Status WBC, Total 11/30/2023 09:46:33 6.24 4.00-10.8 0 (K/uL) Final RBC 11/30/2023 09:46:33 3.44 3.85-5.15 (M/uL) Final Hemoglobin 11/30/2023 09:46:33 12.1 12.0-15.3 (g/dL) Final Anemia reflex testing trigge rs on a HGB < 12.0 for Females and HGB < 13.0 for Males in accordance with the WHO Anemia Guidelines
Anemia reflex testing triggers on a HGB < 12.0 for Females and HGB < 13.0 for Males in accordance with the WHO Anemia Guidelines HCT 11/30/2023 09:46:33 39.7 36.0-45.2 (%) Final MCV 11/30/2023 09:46:33 115.4 81.5-97.5 (fL) Final MCH 11/30/2023 09:46:33 35.2 27.0-34.0 (pg) Final MCHC 11/30/2023 09:46:33 30.5 32.0-36.0 (g/dL) Final RDW 11/30/2023 09:46:33 17.7 11.5-15.5 (%) Final Platelets 11/30/2023 09:46:33 226 140-400 (K /uL) Final MPV 11/30/2023 09:46:33 12.4 6.6-11.1 ( fL) Final Nucleated erythrocytes/100 leukocytes [Ratio] in Blood by Automated count 11/30/2023 09:46:33 0 <=0 (/100 WBCs) Fi [facility] Performing Location [facility] [address] [facility] [address]
--- OUTSIDE RECORDS SUMMARY | 2023-12-12 09:17 | External Medical Summary ---
Author Name Unknown Address Unknown Organization [id number]:LABORATORY [facility] - [address] [facility] [place] [id number] Laboratory Report Ordering Provider Test Date Status ERENDIRA CÁRDENAS 11/30/2023 09:46:33 Final Observation Date Value Abnormality Reference (Units ) Status SYNC LEUKOCYTES IN BLOOD BY AUTOMATED COUNT 11/30/2023 09:46:33 6.24 4.00-10.80 (K/uL) Final Segs 11/30/2023 09:46:33 73.3 40.0-75.0 (%) Final Lymphs % 11/30/2023 09:46:33 9.3 Below low normal 18.0-42.0 (%) Final Monos 11/30/2023 09:46:33 10.9 1.0-11.0 (%) Final Eosinophils 11/30/2023 09:46:33 4.6 0.0-6.0 (%) Final Basos 11/30/2023 09:46:33 1.4 0.0-2.0 (%) Final Immature Granulocyte, Percent 11/30/2023 09:46:33 0.5 0.0-2.0 (%) Final Absolute Segs 11/30/2023 09:46:33 4.57 1.80-7.70 (K/uL) Final Lymphs, absolute 11/30/2023 09:46:33 0.58 Below low normal 1.00-4.80 (K/ul) Final Monos, Abs 11/30/2023 09:46:33 0.68 0.00-1.10 (K/uL) Final Eos, Abs 11/30/2023 09:46:33 0.29 0.00-0.70 (K/uL) Final Basos, Abs 11/30/2023 09:46:33 0.09 0.00-0.20 (K/uL) Final Immature Granulocytes, Number 11/30/2023 09:46:33 0.03 0.00-0.20 (K/uL) Final Performing Location LABORATORY [facility] - [address] [facility] [address]
--- OUTSIDE RECORDS SUMMARY | 2023-12-12 09:17 | External Medical Summary ---
Author Name Unknown Address Unknown Organization K01:LABORATORY [facility] - [address] [place] [address] Laboratory Report Ordering Provider Test Date Status HUGO CÁRDENASD 11/30/2023 09:46:33 Final Observation Date Value Abnormality Reference (Units ) Status T4, Free 11/30/2023 09:46:33 1.6 0.9-1.7 (n g/dL) Final Performing Location LABORATORY [facility] - [address] [place] [address]
--- OUTSIDE RECORDS SUMMARY | 2023-12-12 09:17 | External Medical Summary ---
Author Name Unknown Address Unknown Organization K01:LABORATORY [facility] [place] - [address] [facility] [address] Laboratory Report Ordering Provider Test Date Status AVIERENDIRA 11/30/2023 09:46:33 Final Observation Date Value Abnormality Reference (Units ) Status TSH 11/30/2023 09:46:33 5.56 Above high normal 0. 27-4.20 (uIU/mL) Final Performing Location LABORATORY [facility] - [address] [facility] [address]
--- OUTSIDE RECORDS SUMMARY | 2023-12-12 09:17 | External Medical Summary | Summary of Care ---
Author Name Unknown Organization [facility] Address [address] [place] [address] Phone [phone] Care Team Providers Care Craft Artist Name Role Phone Yaya Frederick MD Primary Care Provider [phone] Reason for Visit * Reason Onset Date Comments Advice 11/28/2023 Encounter Details Date Type Department Care Team (Late st Contact Info) Description 11/28/2023 Telephone Cardiology, [facility] [address] [place] [address] Bucky Calvo PA-C [address] [place] [phone] Advice Allergies Active Allergy Reactions Criticality Noted Date [...] as of this encounter (statuses as of 11/29/2023) Medications Medication Sig Dispensed Refills Start Date End Date Status BENADRYL 25 MG PO TABS 1 TABLET EVERY 4 TO 6 HOURS NEEDED 0 Active GRX ANALGESIC BALM EX OINT Apply topically to affected area. 0 07/01/2013 Active Azelastine HCl 0.15 % Nasal SolutionIndications:P ost-nasal discharge Administer into nostril 1 [place] in the morning AND 1 [place] before bedtime. 30 mL 0 11/30/2021 Active Ipratropium [place] 0.03 % Nasal Solution Administer into each [...] Active Additional Information Patient not taking.Reported on 11/29/2023 busPIRone HCl 5 MG Oral Tablet (Buspar)Indications:A nxiety state Take 1 Tablet by mouth in the morning and 1 Tablet before bedtime. 20 Tablet 0 05/15/2023 Active Rosuvastatin Calcium 20 MG Oral Tablet (Crestor)Indications: NSTEMI (non-ST elevated myocardial infarction) ([facility]) Take 1 Tablet by mouth in the morning. 90 Tablet 3 05/18/2023 Active Nitroglycerin 0.4 MG Sublingual Tablet Sublingual (Nitrostat)Indication s:NSTEMI (non-ST elevated myocardial infarction) [facility] rEF (heart failure with reduced ejection fraction) ([facility] [...] until healed. 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 therapy 05/05/2006 01/23/2009 Overview: ICD-10 update of inactive term Anticoagulation management encounter 05/05/2006 10/03/2019 Unspecified viral infection, in conditions classified elsewhere and of unspecified site 06/08/2005 09/25/2007 Menopause 12/19/2001 12/27/2017 FEM STRESS INCONTINENCE 05/10/200111/23 documented as of this encounter (statuses as of 11/29/2023) Immunizations Name Administration Dates Next Due COVID-19 mRNA, LNP-s, No Pre serve, 2-Dose Series ([employer]) 09/13/2021,01/05/2021,12/15/2020 Covid-19, Mrna, Lnp-s, Pf, B ivalent, 30 Mcg, IM, 12 yrs and above ([employer]) 09/29/2022 H1N1 2009 Influenza, IM 10/08/2009 Pneumococcal [...] Telephone Encounter - Rossy Correia OSA - 11/29/2023 10:53 AM EST Spoke with Pt, appt scheduled. * Telephone Encounter - Meena Perez LPN - 11/29/2023 9:14 AM EST Looks as though patient is requesting appt * Telephone Encounter - Savannah Crump OSA - 11/28/2023 5:36 PM EST Person calling: Rachael Relationship to patient: self Number to return call: [phone] Reason for call: thought she had an appt for follow up - do not see anything in notes and no Activerequest Please advise Pharmacy: na Provider Name:Umesh documented in this encounter Plan of Treatment Upcoming Encounters Date Type Department Care Team ([facility] Contact Info) Description 11/30/2023 8:20 AM EST Office Visit Family Practice [address] [phone] Oneida Briggs PA-C [address] [place] [address] 12/01/2023 2:15 PM EST Office Visit Hematology/Oncology [facility] [place] [address] [facility] [place] [address] Agustín Sullivan MD [address] [facility] [place] [address] 12/01/2023 3:00 PM EST Laboratory Laboratory [facility] [place] [address] [place] [phone] [facility] [address] [facility] [place] [address] 12/01/2023 5:10 PM EST Anticoagulation Pharmacy [address] [phone] Pharmacist, [facility] [address] [place] [address] 12/27/2023 11:40 AM EST Office Visit Nephrology [address] [place] [address] Alfa Holcomb MD [address] [place] [address] 12/27/2023 3:00 PM EST Office Visit Cardiology, [facility] [address] [place] [address] Bucky Calvo PA-C [address] [place] [address] 01/26/2024 10:40 AM EDT Office Visit Otolaryngology [address] [place] [phone] Keely Tanner PA-C [address] [place] [address] 02/20/2024 12:20 PM EDT Office Visit [address] [phone] Oneida Briggs PA-C [address] [place] [address] 05/27/2024 12:20 PM EDT Office Visit [address] [phone] Yaya Frederick MD [address] [place] [address] 08/16/2024 11:00 AM EDT Cardiac Studies Cardiology, [facility] [address] [place] [address] Phoenix Carlson [address] [place] [address] Health Maintenance Due Date Last Done Comments Zoster Vaccines (1 of 2) 1954 Hepatitis B (1 of 3 - Risk 3-dose series) 1996 COVID-19 Vaccine ( season) 2023 09/29/2022, 09/13/2021, 01/05/2021, Additional history exists Depression Screening 02/09/2024 02/08/2023 Albumin/Creatinine Ratio 06/15/2024 023, 05/01/2023, 07/04/2022, Additional history exists CKD HGB USE SMARTSET 69405 11/02/202411/02, 11/02/2023, 08/29/2023, Additional history exists CKD PHOS USE SMARTSET 05195 11/02/202410/23, 05/01/2023, 11/04/2022, Additional history exists DXA Scan 11/09/2024 11/09/2022, 01/21, 11/03/2015, Additional history exists DTaP,Tdap,and Td Vaccines (3 - Td or Tdap) 06/04/2029 06/04/2019, 01/28/2019, 05/26/2008 Pneumococcal Vaccine: 65+ Years Completed 05/24/2016, 11/14/2001 Influenza Vaccine (FLU shot) Completed 05/2023, 07/04/2022, 07/19/2021, Additional history exists VITAMIN D LEVEL ONCE IN A LIFETIME-USE SMARTSET# 75234 Completed 11/02/2023, 05/01/2023, 11/04/2022, Additional history exists [...] documented as of this encounter Care Teams Craft Artist Relationship Specialty Start Date End Date Yaya Frederick MD [address] [place] [phone] PCP - General Family Medicine 05/04/21 documented as of this encounter
--- OUTSIDE RECORDS SUMMARY | 2023-12-12 09:17 | External Medical Summary | Summary of Care ---
Author Name Unknown Organization [facility] Address [address] [place] [address] Phone [phone] Care Team Providers Care Clinical Trials Data Coordinator Name Role Phone Yaya Frederick MD Primary Care Provider [phone] Reason for Visit * Reason Comments Outpatient Testing Encounter Details Date Type Department Care Team (Late st Contact Info) Description 11/30/2023 9:40 AM [facility] [phone] [address] Pruritus Allergies Active Allergy Reactions Criticality Noted [...] SolutionIndications:P ost-nasal discharge Administer into nostril 1 [place] in the morning AND 1 [place] before bedtime. 30 mL 0 11/30/2021 Active Ipratropium [place] 0.03 % Nasal Solution Administer into each [...] Tablet (Crestor)Indications: NSTEMI (non-ST elevated myocardial infarction) ([facility]) Take 1 Tablet by mouth in the morning. 90 Tablet 3 05/18/2023 Active Nitroglycerin 0.4 MG Sublingual Tablet Sublingual (Nitrostat)Indication s:NSTEMI (non-ST elevated myocardial infarction) ([facility]) Place 1 Tablet under the [...] rEF (heart failure with reduced ejection fraction) ([facility]) Take 1 Tablet by mouth in the morning. 90 Tablet 1 09/29/2023 Active Clopidogrel Bisulfate 75 MG Oral Tablet (pLAVix)Indications:H FrEF (heart failure with reduced ejection fraction) ([facility]) Take 1 Tablet by mouth [...] Stent Restenosis in Drug-Eluting Stents Project # [id number] Shirt Creaser: Wilda Serrano MD [phone] GENOMICS CARDIO RESEARCH OTHER*[id number] 01/09/2007 11/29/2016 Overview: Renamed Per Clinical Trials Billing Project. 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 # [phone] Shirt Creaser: Wilda Serrano MD [phone] Type 2 diabetes mellitus wit h hemoglobin A1c goal of less than 7.0% 11/03/2006 08/15/2007 Overview: ICD-10 update of inactive term PURE HYPERCHOLESTEROLEM 11/03/200609/22 Overview: Per Lipid Taxonomy. 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 05/05/2006 01/23/2009 Overview: ICD-10 update of inactive term Anticoagulation management encounter 05/05/2006 10/03/2019 Unspecified viral infection, in conditions classified elsewhere and of unspecified site 06/08/2005 09/25/2007 Menopause 12/19/2001 12/27/2017 FEM STRESS INCONTINENCE 05/10/200111/23 documented as of this encounter (statuses as of 11/30/2023) Immunizations Name Administration Dates Next Due COVID-19 mRNA, LNP-s, No Pre serve, 2-Dose Series ([employer]) 09/13/2021,01/05/2021,12/15/2020 Covid-19, Mrna, Lnp-s, Pf, B ivalent, [...] 12/01/2023 2:15 PM EST Office Visit Hematology/Oncology [facility] [address] [place] [address] Agustín Sullivan MD [address] [place] [address] 12/01/2023 3:00 PM EST Laboratory Laboratory [facility] [place] [address] [place] [phone] Park, Lab [facility] [place] [facility] [place] [address] 12/01/2023 5:10 PM EST Anticoagulation Pharmacy [address] [phone] Pharmacist2, [facility] [address] [address] 12/27/2023 11:40 AM EST Office Visit Nephrology [address] [place] [phone] Alfa Holcomb MD [address] [place] [address] 12/27/2023 3:00 PM EST Office Visit Cardiology, [facility] [address] [place] [address] Bucky Calvo PA-C [address] [place] [address] 01/26/2024 10:40 AM EDT Office Visit Otolaryngology [address] [place] [phone] Keely Tanner PA-C [address] [place] [address] 02/20/2024 12:20 PM EDT Office Visit Family Practice [address] [place] [phone] Oneida Briggs PA-C [address] [place] [address] 05/27/2024 12:20 PM EDT Office Visit Family [facility] [address] [place] [address] Yaya Frederick MD [address] [place], [place] [phone] 08/16/2024 11:00 AM EDT Cardiac Studies Cardiology, [facility] 132 [facility] [place] [address] [facility] [facility] [address] [facility] [facility] [place] [address] Pending Results Name Type Priority Associated Diagnoses [...] Additional history exists CKD HGB USE SMARTSET 90339 11/02/202411/02, 11/02/2023, 08/29/2023, Additional history exists CKD PHOS USE SMARTSET 17578 11/02/202410/23, 05/01/2023, 11/04/2022, Additional history exists DXA Scan 11/09/2024 11/09/2022, 01/21, 11/03/2015, Additional history exists DTaP,Tdap,and Td Vaccines (3 - Td or Tdap) 06/04/2029 06/04/2019, 01/28/2019, 05/26/2008 Pneumococcal Vaccine: 65+ Years Completed 05/24/2016, 11/14/2001 Influenza Vaccine (FLU shot) Completed 05/2023, 07/04/2022, 07/19/2021, Additional history exists VITAMIN D LEVEL ONCE IN A LIFETIME-USE SMARTSET# 95606 Completed 11/02/2023, 05/01/2023, 11/04/2022, Additional history exists [...] documented as of this encounter Care Teams Clinical Trials Data Coordinator Relationship Specialty Start Date End Date Yaya Frederick MD [address] [place] [address] [phone] PCP - General Family Medicine 05/04/21 documented as of this encounter
--- OUTSIDE RECORDS SUMMARY | 2023-12-12 09:17 | External Medical Summary | Summary of Care ---
Author Name Unknown Organization [facility] Address [address] [place] [address] Phone [phone] Care Team Providers Care Bulk Sausage Casing Tier Off Name Role Phone Yaya Frederick MD Primary Care Provider [phone] Reason for Visit * Reason Comments Allergic Reaction Patient says from Cr chinoor Encounter Details Date Type Department Care Team (Late st Contact Info) Description 11/29/2023 9:15 AM EST Convenient Care Visit [facility], [place] [address] [place] [address] Juanito Elizabeth PA-C [address] [place] [address] Pruritus* Allergies Active Allergy Reactions Criticality Noted Date [...] SolutionIndications:P ost-nasal discharge Administer into nostril 1 [place] in the morning AND 1 [place] before bedtime. 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 # [id number] Convention Worker: Wilda Serrano MD [phone] Type 2 diabetes mellitus wit h hemoglobin A1c goal of less than 7.0% 11/03/2006 08/15/2007 Overview: ICD-10 update of inactive term PURE HYPERCHOLESTEROLEM 11/03/200609/22 Overview: Per Lipid Taxonomy. 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 icoagulant therapy 05/05/2006 01/23/2009 Overview: ICD-10 update of inactive term Anticoagulation management encounter 05/05/2006 10/03/2019 Unspecified viral infection, in conditions classified elsewhere and of unspecified site 06/08/2005 09/25/2007 Menopause 12/19/2001 12/27/2017 FEM STRESS INCONTINENCE 05/10/200111/23 documented as of this encounter (statuses as of 11/29/2023) Immunizations Name Administration Dates Next Due COVID-19 mRNA, LNP-s, No Pre serve, 2-Dose Series ([email or web address]) 09/13/2021,01/05/2021,12/15/2020 Covid-19, Mrna, Lnp-s, Pf, B ivalent, 30 Mcg, IM, 12 yrs and above ([email or web address]) 09/29/2022 H1N1 2009 Influenza, IM 10/08/2009 Pneumococcal [...] Sign Reading Time Taken Comments Blood Pressure 120/72 11/29/2023 9:14 AM EST Pulse 81 11/29/2023 9:14 AM EST Temperature 36.4 C (97.6 F) 11/29/2023 9:14 AM ES T Respiratory Rate 18 11/29/2023 9:14 AM EST Oxygen Saturation 99% 11/29/2023 9:14 AM EST Inhaled Oxygen Concentration - - Weight 78.9 kg (174 lb) 11/29/2023 9:14 AM EST Height 149.9 cm (4' 11") 11/29/2023 9:14 AM EST Body Mass Index 35.14 11/29/2023 9:14 AM EST documented in this encounter Progress Notes * Juanito Elizabeth PA-C - 11/29/2023 9:21 AM EST Convenient Care Basic Exam Shannon Cruz is a 88 year old year old female who presents for evaluation of possible allergy to Crestor and this was Rx was increased back in Aug, 2023 while in Hospital. She seen Dr. Frederick last week who Dx Dry skin. She is here with her son and using Steroid cream but still feels itch, and has no rash. Review of Systems Constitutional: Negative. HENT: Negative. Eyes: Negative. Respiratory: Negative. Cardiovascular: Negative. Gastrointestinal: Negative. Endocrine: Negative. Genitourinary: Negative. Musculoskeletal: Negative. Skin: Negative. Allergic/Immunologic: Negative. Neurological: Negative. Hematological: Negative. Psychiatric/Behavioral: Negative. PAST MEDICAL HISTORY: Past Medical History: Diagnosis Date Anticoagulation management [...] mri compatible patecmaker insertion intraoperative fluoroscopic guidance [facility]04/08/14 KNEE ARTHROSCOPY/ARTHROPLASTY 09/2010 dr salcedo LIGATE/CUT OVIDUCT(S) 1963 OTHER 12/27 RCA drug eluting stent REPLACEMENT AORTIC VALVE, BYPASS WITH PROSTHETIC VALVE 04/27 [place] AVR TOTAL ABD HYSTERECTOMY W/WO REMOVAL OF TUBE(S) 11/24 JADE/BSO Social History Tobacco Use Smoking status: Never Smokeless tobacco: Never Tobacco comments: no passive smoke exposures Substance Use Topics Alcohol use: No Vaping/E-Cigarette Use Vaping/E-Cigarette Use Never User Vaping/E-Cigarette Substances Vaping/E-Cigarette Devices Patient Active Problem List Diagnosis Code Osteoporosis [...] spinal stenosis M48.061 Essential thrombocythemia ([facility]) D47.3 Hx of nonmelanoma skin cancer Z85.828 Bilateral leg edema R60.0 Paroxysmal atrial fibrillation ([facility]) I48.0 Obstructive sleep apnea of adult G47.33 Hypertensive kidney disease with stage 3a chronic kidney disease ([facility]) I12.9, N18.31 Hx of actinic keratosis Z87.2 Chronic hypoxemic respiratory failure ([facility]) J96.11 RADHA (acute kidney injury) ([facility]) N17.9 HFrEF (heart failure with reduced ejection fraction) ([facility]) I50.20 Chronic atrial fibrillation ([facility]) I48.20 Review of patient's allergies indicates: Allergen Reactions [...] % Nasal Solution Administer into nostril 1 [place] in the morning AND 1 [place] before bedtime. 30 mL 0 Ipratropium [place] 0.03 % Nasal Solution Administer into each [...] 5 days a week 60 Capsule 5 busPIRone HCl 5 MG Oral Tablet (Buspar) [...] the morning. 30 Tablet 11 Fexofenadine HCl 60 MG Oral Tablet (Lizzette) [...] the morning. (Patient not taking: Reported on 11/29/2023) 51 g 3 Docusate Sodium 100 MG Oral Capsule (Colace) [...] taking: Reported on 10/25/2023) 240 mL 0 No current facility-administered medications for this visit. Nursing Notes and Vital Signs reviewed. BP 120/72 | Pulse 81 | Temp 36.4 C (97.6 F) (Tympanic) | Resp 18 | Ht 1.499 m (4' 11") | Wt 78.9 kg (174 lb) | SpO2 99% | BMI 35.14 kg/m | BSA 1.81 m Physical Exam Constitutional: Appearance: Normal appearance. She is normal weight. HENT: Head: Normocephalic and atraumatic. Cardiovascular: Rate and Rhythm: Normal rate and regular rhythm. Pulses: Normal pulses. Heart sounds: Normal heart sounds. Pulmonary: Effort: Pulmonary effort is normal. Breath sounds: Normal breath sounds. Musculoskeletal: General: Normal range of motion. Cervical back: Normal range of motion and neck supple. Skin: General: Skin is warm. Neurological: General: No focal deficit present. Mental Status: She is alert and oriented to person, place, and time. Mental status is at baseline. Psychiatric: Mood and Affect: Mood normal. Behavior: Behavior normal. Thought Content: Thought content normal. Judgment: Judgment normal. ASSESSMENT: Pruritus (Primary) Benadryl tonight Dont take Crestdaniel pedro and see Oneida Briggs tomorrow at [facility] Appt. Follow Up: Return if symptoms worsen or fail to improve, for Clinic Visit. | For: Clinic Visit Juanito Elizabeth PA-C [address] [place] [address] documented in this encounter Nursing Notes * Blas Mireles LPN - 11/29/2023 9:19 AM EST Shannon Cruz is a 88 year old female who presents to walk-in clinic today complaining of Chief Complaint Patient presents with Allergic Reaction Patient says from Crestor How lon Tried: Pt accompanied by: SON documented in this encounter Plan of Treatment Upcoming Encounters Date Type Department Care Team ([facility] st Contact Info) Description 11/30/2023 8:20 AM EST Office Visit Family [address] [phone] Oneida Briggs PA-C [address] [place] [address] 12/01/2023 2:15 PM EST Office Visit Hematology/Oncology [facility] [place] [address] [facility] [place] [address] Agustín Sullivan MD 200 [place] [address] 12/01/2023 3:00 PM EST Laboratory Laboratory [facility] [address] [facility] [place] [phone] [place], Lab [address] [place] [address] 12/01/2023 5:10 PM EST Anticoagulation Pharmacy [address] [phone] Pharmacist2, [facility] [address] [address] 12/27/2023 11:40 AM EST Office Visit Nephrology [place] [address] [facility] [address] [place] [phone] Alfa Holcomb MD 200 [facility] [place] [address] 01/26/2024 10:40 AM EDT Office Visit Otolaryngology [facility] [address] [facility] [address] [place] [phone] Keely Tanner PA-C [address] [place] [address] 02/20/2024 12:20 PM EDT Office Visit [facility] [address] [place] [phone] Oneida Briggs PA-C [address] [place] [address] 05/27/2024 12:20 PM EDT Office Visit [facility] [address] [place] [phone] Yaya Frederick MD [address] [place] [address] 08/16/2024 11:00 AM EDT Cardiac Studies Cardiology, [facility] 132 [place] [address] [facility] 132 [place] [address] Health Maintenance Due Date Last Done Comments Zoster Vaccines (1 of 2) 1954 Hepatitis B (1 of 3 - Risk 3-dose series) 1996 COVID-19 Vaccine (2022- season) 2023 09/29/2022, 09/13/2021, 01/05/2021, Additional history exists Depression Screening 02/09/2024 02/08/2023 Albumin/Creatinine Ratio 06/15/20242 023, 05/01/2023, 07/04/2022, Additional history exists CKD HGB USE SMARTSET 97902 11/02/202411/02, 11/02/2023, 08/29/2023, Additional history exists CKD PHOS USE SMARTSET 54922 11/02/202410/23, 05/01/2023, 11/04/2022, Additional history exists DXA Scan 11/09/2024 11/09/2022, 01/21, 11/03/2015, Additional history exists DTaP,Tdap,and Td Vaccines (3 - Td or Tdap) 06/04/2029 06/04/2019, 01/28/2019, 05/26/2008 Pneumococcal Vaccine: 65+ Years Completed 05/24/2016, 11/14/2001 Influenza Vaccine (FLU shot) Completed 05/2023, 07/04/2022, 07/19/2021, Additional history exists VITAMIN D LEVEL ONCE IN A LIFETIME-USE SMARTSET# 44267 Completed 11/02/2023, 05/01/2023, 11/04/2022, Additional history exists GARDASIL-HPV IMMUNIZATION SERIES Aged Out No longer eligible based on patient's age to complete this topic MENINGOCOCCAL (MENACTRA/MENVEO) Aged Out No longer eligible based on patient's age to complete this topic documented as of this encounter Medical Devices Not on filedocumented as of this encounter Visit Diagnoses Diagnosis Pruritus- Primary Unspecified pruritic disorder documented in this encounter Additional Health Concerns Infection Onset Date Last Indicated Resolved Time Varicella zoster 08/01/2022 08/01/2022 documented as of this encounter Care Teams Bulk Sausage Casing Tier Off Relationship Specialty Start Date End Date Yaya Frederick MD [address] [place] [address] PCP - General Family Medicine 05/04/21 documented as of this encounter
--- OUTSIDE RECORDS SUMMARY | 2023-12-12 09:17 | External Medical Summary | Summary of Care ---
Author Name Unknown Organization [facility] Address [address] [place] [address] Phone [phone] Care Team Providers Care Blade Grinder Name Role Phone Yaya Obando MD Primary Care Provider Reason for Visit * Reason Onset Date Comments Med Request 08/30/2023 Encounter Details Date Type Department Care Team ([facility] st Contact Info) Description 08/30/[address] [facility] [address] [place] [address] Yyaa Obando MD [address] [place] [phone] Med Request Allergies Active Allergy Reactions Criticality Noted Date [...] SolutionIndications: Post-nasal discharge Administer into nostril 1 [place] in the morning AND 1 [place] before bedtime. 30 mL 0 11/30/2021 Active Ipratropium [place] 0.03 % Nasal Solution Administer into each [...] 11/29/2023 busPIRone HCl 5 MG Oral Tablet (Buspar)Indications: Anxiety state Take 1 Tablet by mouth in the morning and 1 Tablet before bedtime. 20 Tablet 0 05/15/2023 Active Rosuvastatin Calcium 20 MG Oral Tablet (Crestor)Indications :NSTEMI (non-ST elevated myocardial infarction) ([facility]) Take 1 Tablet by mouth in the morning. 90 Tablet 3 05/18/2023 Active Nitroglycerin 0.4 MG Sublingual Tablet Sublingual (Nitrostat)Indicatio ns:NSTEMI (non-ST elevated myocardial infarction) ([facility]) Place [...] Patient not taking.Reported on 10/25/2023 Fexofenadine HCl 180 MG Oral Tablet (Lizzette) Take by mouth 1 Tablet daily as needed for Allergies. 90 Tablet 0 01/21/2022 08/27/20 23 Discontinu ed(Refill) Warfarin Sodium 2.5 MG Oral TabletIndications:Ch ronic ischemic heart disease Up to one tablet daily as directed by the [facility] clinic 100 Tablet 3 08/09/2022 08/30/20 23 Discontinu ed(Refill) Losartan Potassium 25 MG Oral Tablet (Cozaar) Take 0.5 Tablets by mouth in the morning. 0 05/09/2023 08/30/20 23 Discontinu ed(Refill) Torsemide 20 MG Oral Tablet (Demadex) Take 1 Tablet by mouth in the morning. 30 Tablet 3 06/23/2023 09/28/20 23 Discontinu ed(Refill) Isosorbide Mononitrate ER 60 MG Oral Tablet Extended Release 24 Hour (Imdur)Indications:H FrEF (heart failure with reduced ejection fraction) ([facility]) Take 1 Tablet by mouth in the morning. 30 Tablet 3 07/03/2023 09/28/20 23 Discontinu ed(Refill) Clopidogrel Bisulfate 75 MG Oral Tablet (pLAVix)Indications: HFrEF (heart failure with reduced ejection fraction) ([facility]) Take 1 Tablet by mouth in the morning. 30 Tablet 3 07/03/2023 09/28/20 23 Discontinu ed(Refill) Sulfamethoxazole-Tri methoprim 400-80 MG Oral Tablet (Bactrim) Take 1 Tablet by mouth in the morning and 1 Tablet before bedtime. Do all this for 3 days. 6 Tablet 0 07/13/2023 09/27/20 23 Discontinu ed(Medicat ion List Clean Up) Losartan Potassium 25 MG Oral Tablet (Cozaar) Take 0.5 Tablets by mouth in the morning. 45 Tablet 1 08/30/2023 10/26/19 24 Discontinu ed(Refill) documented as of this encounter [...] in situ 04/17/2014 Sinus node dysfunction 04/17/2014 care home current use of anticoagulant therapy 0 11/12/2010 [...] Stent Restenosis in Drug-Eluting Stents Project # Spiritual Minister: Wilda Serrano MD [phone] GENOMICS CARDIO RESEARCH OTHER*[id number] 01/09/2007 11/29/2016 Overview: Renamed Per Clinical Trials Billing Project. 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 # [id number] Spiritual Minister: Wilda Serrano MD [phone] Type 2 diabetes mellitus wit h hemoglobin A1c goal of less than 7.0% 11/03/2006 08/15/2007 Overview: ICD-10 update of inactive term PURE HYPERCHOLESTEROLEM 11/03/200609/22 Overview: Per Lipid Taxonomy. 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/20 08 care home current use of ant icoagulant therapy 05/05/2006 01/23/2009 Overview: ICD-10 update of inactive term Anticoagulation management encounter 05/05/2006 10/03/2019 Unspecified viral infection, in conditions classified elsewhere and of unspecified site 06/08/2005 09/25/2007 Menopause 12/19/2001 12/27/2017 FEM STRESS INCONTINENCE 05/10/200111/23 documented as of this encounter (statuses as of 11/29/2023) Immunizations Name Administration Dates Next Due COVID-19 mRNA, LNP-s, No Pre serve, 2-Dose Series ([employer]) 09/13/2021,01/05/2021,12/15/2020 Covid-19, Mrna, Lnp-s, Pf, B ivalent, [...] Telephone Encounter - Peyton Rivas LPN - 08/31/2023 9:19 AM EST Called and spoke with patient and she is aware prescription was sent in. * Telephone Encounter - Yaya Obando MD - 08/30/2023 2:44 PM EST Losartan dose clarified from nephrology Script sent Please call in the prescription to patients pharmacy and close encounter. Signed Prescriptions: Disp Refills Losartan Potassium 25 MG Oral Tablet (Coza*45 Tab*1 Sig: Take 0.5 Tablets by mouth in the morning. Authorizing Provider: YAYA OBANDO * Telephone Encounter - Kiley Ojeda MED ASSIST - 08/30/2023 2:29 PM EST Please see below. * Telephone Encounter - Yaya Obando MD - 08/30/2023 1:[address] Christianson Kindly confirm if patient should be on losartan I read your last consult and it says losartan held Is she in lisinopril? Kindly clarify * Telephone Encounter - Kiley Ojeda MED ASSIST - 08/30/2023 11:28 AM EST 08/01/2023 (in office), Visit date not found (telemedicine) 09/12/2023 Pending Prescriptions: Disp Refills Losartan Potassium 25 MG Oral Tablet (Coz* Sig: Take 0.5 Tablets by mouth in the morning. * Telephone Encounter - Shakir Mendiola, toaster operator - 08/30/2023 11:04 AM EST Pt calling requesting the following medication below that is listed as "Historical". The following information was provided: Medication Name: Losartan Potassium Strength: 25mg Directions: 0.5 tablets in the morning Preferred Quantity: 45 Previous Prescriber: Yaya Obando MD Preferred Pharmacy: [facility]- [place] Please review and approve if appropriate. ThanksShakir t Police Liaison [facility] ([facility]) (formerly Telepharmacy). 08/30/2023,11:04 AM documented in this encounter Plan of Treatment Upcoming Encounters Date Type Department Care Team ([facility] st Contact Info) Description 11/30/2023 8:20 AM EST Office Visit Family Practice [address] [phone] Oneida Briggs PA-C [address] [place] [address] 12/01/2023 2:15 PM EST Office Visit Hematology/Oncology [address] [place] [address] Agustín Sullivan MD 200 [place] [address] 12/01/2023 3:00 PM EST Laboratory Laboratory [address] [place] [phone] [facility] [address] [place] [address] 12/01/2023 5:10 PM EST Anticoagulation Pharmacy [address] [phone] Pharmacist2, [facility] [address] [address] 12/27/2023 11:40 AM EST Office Visit Nephrology [address] [place] [address] Alfa Holcomb MD [address] [place] [address] 12/27/2023 3:00 PM EST Office Visit Cardiology, [facility] [address] [facility] [place] [address] Bucky Calvo PA-C [address] [place] [address] 01/26/2024 10:40 AM EDT Office Visit Otolaryngology [address] [place] [phone] Keely [facility]anner PA-C [address] [facility] [place] [address] 02/20/2024 12:20 PM EDT Office Visit [address] [phone] Oneida Briggs PA-C [address] [place] [address] 05/27/2024 12:20 PM EDT Office Visit [address] [phone] Yaya Obando MD [address] [place] [address] 08/16/2024 11:00 AM EDT Cardiac Studies Cardiology, [facility] [place] [address] [facility] [address] [place] [address] Health Maintenance Due Date Last Done Comments Zoster Vaccines (1 of 2) 1954 Hepatitis B (1 of 3 - Risk 3-dose series) 1996 COVID-19 Vaccine ( season) 2023 09/29/2022, 09/13/2021, 01/05/2021, Additional history exists Depression Screening 02/09/2024 02/08/2023 Albumin/Creatinine Ratio 06/15/2024 023, 05/01/2023, 07/04/2022, Additional history exists CKD HGB USE SMARTSET 29100 11/02/202411/02, 11/02/2023, 08/29/2023, Additional history exists CKD PHOS USE SMARTSET 78011 11/02/202410/23, 05/01/2023, 11/04/2022, Additional history exists DXA Scan 11/09/2024 11/09/2022, 01/21, 11/03/2015, Additional history exists DTaP,Tdap,and Td Vaccines (3 - Td or Tdap) 06/04/2029 06/04/2019, 01/28/2019, 05/26/2008 Pneumococcal Vaccine: 65+ Years Completed 05/24/2016, 11/14/2001 Influenza Vaccine (FLU shot) Completed 05/2023, 07/04/2022, 07/19/2021, Additional history exists VITAMIN D LEVEL ONCE IN A LIFETIME-USE SMARTSET# 50117 Completed 11/02/2023, 05/01/2023, 11/04/2022, Additional history exists [...] documented as of this encounter Care Teams Blade Grinder Relationship Specialty Start Date End Date Yaya Obando MD [address] [place] [address] PCP - General Family Medicine 05/04/21 documented as of this encounter
--- OUTSIDE RECORDS SUMMARY | 2023-12-12 09:17 | External Medical Summary | Summary of Care ---
Author Name Unknown Organization [facility] Address [address] [place] [address] Phone [phone] Care Team Providers Care Administrator Social Welfare Name Role Phone Yaya Obando MD Primary Care Provider Reason for Referral * Medication Prior Authorization - Pending Review Specialty Diagnoses / Procedures Referred By Shellie lake Referred To Contact Diagnoses Itching Yaya Obando MD [address] [place] [id number] Referral ID Status Reason Start Date Expiration Date V isits Requested Visits Authorized [id number] Pending Review 999 999 Reason for Visit * Reason Onset Date Comments Advice 11/29/2023 Encounter Details Date Type Department Care Team ([facility] Contact Info) Description 11/29/2023 Telephone Family Practice [facility] [address] [place] [address] Yaya Obando MD [address] [place] [address] Advice Allergies Active Allergy Reactions Criticality Noted [...] ost-nasal discharge Administer into nostril 1 [place] in the morning AND 1 [place] before bedtime. 30 mL 0 11/30/2021 Active Ipratropium [place] 0.03 % Nasal Solution Administer into each [...] Tablet (Crestor)Indications: NSTEMI (non-ST elevated myocardial infarction) ([facility]) Take 1 Tablet by mouth in the morning. 90 Tablet 3 05/18/2023 Active Nitroglycerin 0.4 MG Sublingual Tablet Sublingual (Nitrostat)Indication s:NSTEMI (non-ST elevated myocardial infarction) ([facility]) Place 1 Tablet under the [...] rEF (heart failure with reduced ejection fraction) ([facility]) Take 1 Tablet by mouth in the morning. 90 Tablet 1 09/29/2023 Active Clopidogrel Bisulfate 75 MG Oral Tablet (pLAVix)Indications:H FrEF (heart failure with reduced ejection fraction) ([facility]) Take 1 Tablet by mouth in the morning. 90 Tablet 1 09/29/2023 Active Torsemide 40 MG Oral TabletIndications:Hyp ertensive kidney disease with stage 3a chronic kidney disease ([facility]),Bilateral leg edema Take 80 mg by mouth [...] for Itching. 40 Tablet 2 11/29/2023 Active documented as of this encounter (statuses [...] skin cancer 02/19/2018 [facility]: [facility] Essential thrombocythemia 10/14/2017 Lumbar spinal stenosis [...] Stent Restenosis in Drug-Eluting Stents Project # [id number] Inventory Representative: Wilda Serrano MD [phone] GENOMICS CARDIO RESEARCH OTHER*[id number] 01/09/2007 11/29/2016 Overview: Renamed Per Clinical Trials Billing Project. 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 # [id number] Inventory Representative: Wilda Serrano MD [phone] Type 2 diabetes mellitus wit h hemoglobin A1c goal of less than 7.0% 11/03/2006 08/15/2007 Overview: ICD-10 update of inactive term PURE HYPERCHOLESTEROLEM 11/03/200609/22 Overview: Per Lipid Taxonomy. 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/20 08 assisted current use of ant icoagulant therapy 05/05/2006 01/23/2009 Overview: ICD-10 update of inactive term Anticoagulation management encounter 05/05/2006 10/03/2019 Unspecified viral infection, in conditions classified elsewhere and of unspecified site 06/08/2005 09/25/2007 Menopause 12/19/2001 12/27/2017 FEM STRESS INCONTINENCE 05/10/200111/23 documented as of this encounter (statuses as of 11/29/2023) Immunizations Name Administration Dates Next Due COVID-19 mRNA, LNP-s, No Pre serve, 2-Dose Series ([employer]) 09/13/2021,01/05/2021,12/15/2020 Covid-19, Mrna, Lnp-s, Pf, B ivalent, 30 Mcg, IM, 12 yrs and above ([employer]) 09/29/2022 H1N1 2009 Influenza, IM 10/08/2009 Pneumococcal [...] encounter Miscellaneous Notes * Telephone Encounter - Yane Lozano CCMA - 11/29/2023 1:59 PM EST Called and spoke with patient and gave results. Patient verbalized understanding no other questionsat this time . * Telephone Encounter - Yaya Obando MD - 11/29/2023 1:24 PM EST She can also try following for itching If no response-then she should be seen Please call in the prescription to patients pharmacy and close encounter. Signed Prescriptions: Disp Refills hydrOXYzine HCl 50 MG Oral Tablet 40 Tab*2 Sig: Take 1 Tablet by mouth 3 times a day as needed for Itching. Authorizing Provider: YAYA OBANDO * Telephone Encounter - Suzanne Singh CCMA - 11/29/2023 9:00 AM EST Please review below. * Telephone Encounter - Paula Joe OSA - 11/29/2023 7:52 AM EST Patient calling stating she is very itchy, unable to sleep. She is taking Crestor which she thinks its causing it, she was seen and was told it was dry skin, medication was recommended, she states ithelps some, but not completely. Please call patient and advise. documented in this encounter Plan of Treatment Upcoming Encounters Date Type Department Care Team (Late st Contact Info) Description 11/30/2023 8:20 AM EST Office Visit Family Practice [facility] [address] [place] [address] Oneida Briggs PA-C [address] [place] [address] 12/01/2023 2:15 PM EST Office Visit Hematology/Oncology [facility] [place] [address] [place] [address] Agustín Sullivan MD [address] [place] [address] 12/01/2023 3:00 PM EST Laboratory Laboratory [facility] [address] [place] [phone] [place], Lab [address] [place] [address] 12/01/2023 5:10 PM EST Anticoagulation Pharmacy [facility] [address] [place] [phone] Pharmacist2, [facility] [address] [address] 12/27/2023 11:40 AM EST Office Visit Nephrology [address] [place] [address] Alfa Holcomb MD 200 [facility] [place], [place] [address] 12/27/2023 3:00 PM EST Office Visit Cardiology, [facility] [address] [place] [address] Bucky Calvo PA-C [address] [place] [address] 01/26/2024 10:40 AM EDT Office Visit Otolaryngology [facility] [address] [facility] [address] [place] [phone] Keely Tanner PA-C [facility] [place] [address] 02/20/2024 12:20 PM EDT Office Visit [facility] [address] [place] [address] Oneida Briggs PA-C [address] [place] [address] 05/27/2024 12:20 PM EDT Office Visit [facility] [address] [place] [address] Yaya Obando MD [address] [place] [address] 08/16/2024 11:00 AM EDT Cardiac Studies Cardiology, [facility] [address] [facility] [place] [address] [facility] [address] [facility] [place] [address] Health Maintenance Due Date Last Done Comments Zoster Vaccines (1 of 2) 1954 Hepatitis B (1 of 3 - Risk 3-dose series) 1996 COVID-19 Vaccine ( season) 2023 09/29/2022, 09/13/2021, 01/05/2021, Additional history exists Depression Screening 02/09/2024 02/08/2023 Albumin/Creatinine Ratio 06/15/202406/15/2 023, 05/01/2023, 07/04/2022, Additional history exists CKD HGB USE SMARTSET 93980 11/02/202411/02, 11/02/2023, 08/29/2023, Additional history exists CKD PHOS USE SMARTSET 87802 11/02/202410/23, 05/01/2023, 11/04/2022, Additional history exists DXA Scan 11/09/2024 11/09/2022, 01/21, 11/03/2015, Additional history exists DTaP,Tdap,and Td Vaccines (3 - Td or Tdap) 06/04/2029 06/04/2019, 01/28/2019, 05/26/2008 Pneumococcal Vaccine: 65+ Years Completed 05/24/2016, 11/14/2001 Influenza Vaccine (FLU shot) Completed 05/2023, 07/04/2022, 07/19/2021, Additional history exists VITAMIN D LEVEL ONCE IN A LIFETIME-USE SMARTSET# 35663 Completed 11/02/2023, 05/01/2023, 11/04/2022, Additional history exists GARDASIL-HPV IMMUNIZATION SERIES Aged Out No longer eligible based on patient's age to complete this topic MENINGOCOCCAL (MENACTRA/MENVEO) Aged Out No longer eligible based on patient's age to complete this topic documented as of this encounter Medical Devices Not on filedocumented as of this encounter Visit Diagnoses Diagnosis Itching- Primary Unspecified pruritic disorder documented in this encounter Additional Health Concerns Infection Onset Date Last Indicated Resolved Time Varicella zoster 08/01/2022 08/01/2022 documented as of this encounter Care Teams Administrator Social Welfare Relationship Specialty Start Date End Date Yaya Obando MD [address] [place] [address] PCP - General Family Medicine 05/04/21 documented as of this encounter
--- OUTSIDE RECORDS SUMMARY | 2023-12-12 09:17 | External Medical Summary ---
Author Name Unknown Address Unknown Organization K01:[facility] - [address] [facility] [place] [id number] Laboratory Report Ordering Provider Test Date Status ERENDIRA CÁRDENAS 11/30/2023 09:46:33 Final Observation Date Value Abnormality Reference (Units ) Status BUN 11/30/2023 09:46:33 45 Above high normal 6-20 (mg/dL) Final Creatinine 11/30/2023 09:46:33 2.3 Above high normal 0.5-1.0 (mg/dL) Final Glomerular filtration rate/1.73 sq M.predicted [Volume Rate/Area] in Serum, Plasma or Blood by Creatinine-based formula (CKD-EPI) 11/30/2023 09:46:33 21 Below low normal >=60 (mL/min) Final eGFR is calculated based on the CKD-EPI 2020 equation SODIUM 11/30/2023 09:46:33 142 135-146 (m mol/L) Final Potassium 11/30/2023 09:46:33 4.5 3.5-5.1 (m mol/L) Final Cl 11/30/2023 09:46:33 100 98-107 (mm ol/L) Final CO2 11/30/2023 09:46:33 30 22-32 (mmo l/L) Final Anion gap 11/30/2023 09:46:33 12 7-15 (mmol /L) Final Glucose 11/30/2023 09:46:33 136 Above high normal 70 -120 (mg/dL) Final Albumin 11/30/2023 09:46:33 4.0 3.8-5.0 (g /dL) Final AST (Aspartate aminotransferase) 11/30/2023 09:46:33 32 10-35 (U/L) Fin al Alk Phos 11/30/2023 09:46:33 163 Above high normal 35 -130 (U/L) Final Bilirubin, Total 11/30/2023 09:46:33 1.3 Above high no rmal <=1.2 (mg/dL) Final Calcium 11/30/2023 09:46:33 10.0 8.4-10.2 ( mg/dL) Final Protein 11/30/2023 09:46:33 7.6 6.0-8.3 (g /dL) Final ALT (Alanine aminotransferase) 11/30/2023 09:46:33 17 10-35 (U/L) Jason cardenas Performing Location [facility] - [address] [facility] [address]
--- OUTSIDE RECORDS SUMMARY | 2023-12-12 09:17 | External Medical Summary | Summary of Care ---
Author Name Unknown Organization [facility] Address [address] [place] [address] Phone [phone] Care Team Providers Care Manager Electronic Name Role Phone Yaya Frederick MD Primary Care Provider [phone] Reason for Visit * Reason Comments Follow Up Patient is here toda y with both of her sons present for a 6 month check up.Patient would like to discuss her back it is itchy she isn't sure if it is dry skin or not.Would like to discuss her cough. She states it is from congestion. Wondering if she can have something to help ease her cough Is currently using [facility] to help with this and they are working for now when her cough isn't bad she uses LudensSometimes she feels like the congestion is stuck in her throat coughing her a lot. Encounter Details Date Type Department Care Team (Latest Contact Info) Description 11/20/2023 1:40 PM EST Office Visit [facility] [address] [place] [address] Yaya Frederick MD [address] [place] [address] Dermatitis*; Chronic cough; HTN, goal below 150/90; Bilateral leg edema; Chronic hypoxemic respiratory failure (HCC); Chronic atrial fibrillation (HCC); Essential thrombocythemia (HCC); Cardiac pacemaker in situ Allergies Active [...] as of this encounter (statuses as of 11/20/2023) Medications Medication Sig Dispensed Refills Start Date End Date Status BENADRYL 25 MG PO TABS 1 TABLET EVERY 4 TO 6 HOURS NEEDED 0 Active GRX ANALGESIC BALM EX OINT Apply topically to affected area. 0 07/01/2013 Active Azelastine HCl 0.15 % Nasal SolutionIndications:P ost-nasal discharge Administer into nostril 1 [place] in the morning AND 1 [place] before bedtime. 30 mL 0 11/30/2021 Active Ipratropium [place] 0.03 % Nasal Solution Administer into each [...] NSTEMI (non-ST elevated myocardial infarction) ([facility]) Take 1 Tablet by mouth in the morning. 90 Tablet 3 05/18/2023 Active Nitroglycerin 0.4 MG Sublingual Tablet Sublingual (Nitrostat)Indication s:NSTEMI (non-ST elevated myocardial infarction) ([facility]) Place 1 Tablet under the tongue [...] failure with reduced ejection fraction) ([facility]) Take 1 Tablet by mouth in the morning. 90 Tablet 1 09/29/2023 Active Clopidogrel Bisulfate 75 MG Oral Tablet (pLAVix)Indications:H FrEF (heart failure with reduced ejection fraction) ([facility]) Take 1 Tablet by mouth in [...] as of this encounter (statuses as of 11/20/2023) Active Problems Problem Noted Date Diagnosed Date [...] 04/17/2014 Sinus node dysfunction 04/17/2014 long term current use of anticoagulant therapy 0 11/12/2010 [...] as of this encounter (statuses as of 11/20/2023) Resolved Problems Problem Noted Date Diagnosed Date [...] Stent Restenosis in Drug-Eluting Stents Project # [id number] Neuropsychiatrist: Wilda Serrano MD [phone] GENOMICS CARDIO RESEARCH OTHER*[id number] 01/09/2007 11/29/2016 Overview: Renamed Per Clinical Trials Billing Project. 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 # [id number] Neuropsychiatrist: Wilda Serrano MD [phone] Type 2 diabetes mellitus wit h hemoglobin A1c goal of less than 7.0% 11/03/2006 08/15/2007 Overview: ICD-10 update of inactive term PURE HYPERCHOLESTEROLEM 11/03/200609/22 Overview: Per Lipid Taxonomy. 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/20 08 long term current use of ant icoagulant therapy 05/05/2006 01/23/2009 Overview: ICD-10 update of inactive term Anticoagulation management encounter 05/05/2006 10/03/2019 Unspecified viral infection, in conditions classified elsewhere and of unspecified site 06/08/2005 09/25/2007 Menopause 12/19/2001 12/27/2017 FEM STRESS INCONTINENCE 05/10/200111/23 documented as of this encounter (statuses as of 11/20/2023) Immunizations Name Administration Dates Next Due COVID-19 mRNA, LNP-s, No Pre serve, 2-Dose Series ([employer]) 09/13/2021,01/05/2021,12/15/2020 Covid-19, Mrna, Lnp-s, Pf, B ivalent, 30 Mcg, IM, 12 yrs and above ([facility]) 09/29/2022 H1N1 2009 Influenza, IM 10/08/2009 Pneumococcal [...] Sign Reading Time Taken Comments Blood Pressure 122/74 11/20/2023 1:35 PM EST Pulse 82 11/20/2023 1:35 PM EST Temperature - - Respiratory Rate 20 11/20/2023 1:35 PM EST Oxygen Saturation 99% 11/20/2023 1:35 PM EST Inhaled Oxygen Concentration - - Weight - - Height - - Body Mass Index - - documented in this encounter Progress Notes * Yaya Frederick MD - 11/20/2023 2:16 PM EST Images from the original note were not included. History of Present Illness Shannon Cruz is a 88 year old female that presents for Follow Up (Patient is here today with both of her sons present for a 6 month check up./Patient would like to discuss her back it is itchy she isn't sure if it is dry skin or not./Would like to discuss her cough. She states it is from congestion. Wondering if she can have something to help ease her cough /Is currently using [facility] to help with this and they are working for now when her cough isn't bad she uses Ludens/Sometimes she feels like the congestion is stuck in her throat coughing her a lot.) Comes in for follow up-seen with her 2 sons Has been itchy on upper back-scratches there-sometimes gets itchy on other regions of body Using leg stockings-edema much better-no ankle edema seen today Gets whitish phlegm occasional expectoration when coughs occasionally-no fever or color in sputum-h/o heart zvbupnf-fdgpfm-iryhilxxa compliant HYTN stable She is on LTOT 3L/' continous AF-warfarin compliant Thrombocythemia-follows with pot reliner no fever,cough vomiting diarrhea,rash,neck stiffness,chest pain,pnd,orthopnea,pedal edema,new shortness of breath,abdominal pain,dysuria,hematuria or melena Physical Exam Vitals: 11/20/23 1335 Pulse: 82 Resp: 20 SpO2: 99% BP: 122/74 BP Readings from Last 3 Encounters: 11/20/23 122/74 10/25/23 110/78 10/02/23 122/74 Wt Readings from Last 3 Encounters: 11/20/23 79.3 kg (174 lb 12.8 oz) 10/25/23 81.7 kg (180 lb 3.2 oz) 10/02/23 78.9 kg (174 lb) Physical Exam Constitutional: Comments: On LTOT 3L/' continous HENT: Head: Normocephalic and atraumatic. Right Ear: Tympanic membrane normal. Left Ear: Tympanic membrane normal. Mouth/Throat: Mouth: Mucous membranes are moist. Cardiovascular: Pulses: Normal pulses. Heart sounds: Normal heart sounds. Comments: Rate controlled AF Pulmonary: Effort: Pulmonary effort is normal. Breath sounds: Normal breath sounds. Abdominal: General: Abdomen is flat. Bowel sounds are normal. Palpations: Abdomen is soft. Musculoskeletal: Cervical back: Normal range of motion. Skin: Comments: Dry skin on upper back-small excoriated superficial skin lesion rt posterior shoulder Neurological: General: No focal deficit present. Mental Status: She is alert and oriented to person, place, and time. Psychiatric: Mood and Affect: Mood normal. Behavior: Behavior normal. I have reviewed the following results: chest xray, CMP, CBC, BMP, and 25-Hydroxy Vit D Assessment and Plan Dermatitis Use coconut oil on skin on back daily Use below cream only when itching gets worse - Clotrimazole-Betamethasone 1-0.05 % External Cream (Lotrisone); Apply topically to affected area 2 times a day for 28 days. To affected area for 4 weeks, or until healed. Chronic cough This is multifactorial and occasional-no treatment needed for now HTN, goal below 150/90 Bilateral leg edema Torsemide compliant Chronic hypoxemic respiratory failure (HCC) On LTOT 3L/' continuous Chronic atrial fibrillation (HCC) Warfarin compliant Essential thrombocythemia (HCC) Cardiac pacemaker in situ Wrap-Up Follow-up: Return in about 6 months (around 05/20/2024), or if symptoms worsen or fail to improve. |Check-out note: See Oneida Briggs 3 months and then me in 3 months documented in this encounter Nursing Notes * Yane Lozano CCMA - 11/20/2023 1:34 PM EST The patient has been properly identified by confirmation of name and date of . Chief Complaint Patient presents with Follow Up Patient is here today with both of her sons present for a 6 month check up. Patient would like to discuss her back it is itchy she isn't sure if it is dry skin or not. Would like to discuss her cough. She states it is from congestion. Wondering if she can have something to help ease her cough Is currently using [facility] to help with this and they are working for now when her cough isn't bad she uses Ludens Sometimes she feels like the congestion is stuck in her throat coughing her a lot. Patient has been verbally educated on the need or importance of Immunizations: and Surveys: and hasdeclined topic(s). Dary obtained tempeture and weight documented in this encounter Plan of Treatment Upcoming Encounters Date Type Department Care Team (Late st Contact Info) Description 12/01/2023 2:15 PM EST Office Visit Hematology/On[facility] [address] [place] [address] Agustín Sullivan MD 200 [facility] [place] [address] 12/01/2023 5:10 PM EST Anticoagulation Pharmacy [address] [place] [address] Pharmacist2, [facility] [address] [address] 12/27/2023 11:40 AM EST Office Visit Nephrology [address] [place] [address] Alfa Holcomb MD 200 [facility] [place] [address] 01/26/2024 10:40 AM EDT Office Visit Otolaryngology [facility] [address] [facility] [address] [place] [address] Keely Tanner PA-C 132 [place] [address] 02/20/2024 12:20 PM EDT Office Visit [facility] [address] [place] [address] Oneida Briggs PA-C [address] [place] [address] 05/27/2024 12:20 PM EDT Office Visit [facility] [address] [place] [address] Yaya Frederick MD [address] [place] [address] 08/16/2024 11:00 AM EDT Cardiac Studies Cardiology, [facility] [address] [facility] [address] Health Maintenance Due Date Last Done Comments Zoster Vaccines (1 of 2) 1954 Hepatitis B (1 of 3 - Risk 3-dose series) 1996 COVID-19 Vaccine ( season) 2023 09/29/2022, 09/13/2021, 01/05/2021, Additional history exists Depression Screening 02/09/2024 02/08/2023 Albumin/Creatinine Ratio 06/15/202406/15/2 023, 05/01/2023, 07/04/2022, Additional history exists CKD HGB USE SMARTSET 70905 11/02/202411/02, 11/02/2023, 08/29/2023, Additional history exists CKD PHOS USE SMARTSET 00298 11/02/202410/23, 05/01/2023, 11/04/2022, Additional history exists DXA Scan 11/09/2024 11/09/2022, 01/21, 11/03/2015, Additional history exists DTaP,Tdap,and Td Vaccines (3 - Td or Tdap) 06/04/2029 06/04/2019, 01/28/2019, 05/26/2008 Pneumococcal Vaccine: 65+ Years Completed 05/24/2016, 11/14/2001 Influenza Vaccine (FLU shot) Completed 05/2023, 07/04/2022, 07/19/2021, Additional history exists VITAMIN D LEVEL ONCE IN A LIFETIME-USE SMARTSET# 26766 Completed 11/02/2023, 05/01/2023, 11/04/2022, Additional history exists GARDASIL-HPV IMMUNIZATION SERIES Aged Out No longer eligible based on patient's age to complete this topic MENINGOCOCCAL (MENACTRA/MENVEO) Aged Out No longer eligible based on patient's age to complete this topic documented as of this encounter Medical Devices Not on filedocumented as of this encounter Visit Diagnoses Diagnosis Dermatitis- Primary Contact dermatitis and other eczema, due to unspecified cause Chronic cough Cough HTN, goal below 150/90 Bilateral leg edema Edema Chronic hypoxemic respiratory failure (HCC) Chronic respiratory failure Chronic atrial fibrillation (HCC) Atrial fibrillation Essential thrombocythemia (HCC) Essential thrombocythemia Cardiac pacemaker in situ documented in this encounter Additional Health Concerns Infection Onset Date Last Indicated Resolved Time Varicella zoster 08/01/2022 08/01/2022 documented as of this encounter Care Teams Manager Electronic Relationship Specialty Start Date End Date Yaya Frederick MD [address] [place] [phone] PCP - General Family Medicine 05/04/21 documented as of this encounter"
--- OUTSIDE RECORDS SUMMARY | 2023-12-12 09:18 | External Medical Summary | Summary of Care ---
Author Name Unknown Organization [facility] Address [address] [place] [address] Phone [phone] Care Team Providers Care Tunnel Elastic Operator Lockstitch Name Role Phone Yaya Frederick MD Primary Care Provider [phone] Reason for Visit * Reason Onset Date Comments Test Results Lab 11/06/2023 Encounter Details Date Type Department Care Team (Late st Contact Info) Description 11/06/2023 Telephone Hematology/Oncology Treatment, [place] [address] [place] [address] Agustín Sullivan MD [address] [place] [address] Test Results Lab Allergies Active Allergy Reactions [...] as of this encounter (statuses as of 11/06/2023) Medications Medication Sig Dispensed Refills Start Date End Date Status BENADRYL 25 MG PO TABS 1 TABLET EVERY 4 TO 6 HOURS NEEDED 0 Active GRX ANALGESIC BALM EX OINT Apply topically to affected area. 0 07/01/2013 Active Azelastine HCl 0.15 % Nasal SolutionIndications:P ost-nasal discharge Administer into nostril 1 [place] in the morning AND 1 [place] before bedtime. 30 mL 0 11/30/2021 Active Ipratropium [place] 0.03 % Nasal Solution Administer into each [...] NSTEMI (non-ST elevated myocardial infarction) ([facility]) Take 1 Tablet by mouth in the morning. 90 Tablet 3 05/18/2023 Active Nitroglycerin 0.4 MG Sublingual Tablet Sublingual (Nitrostat)Indication s:NSTEMI (non-ST elevated myocardial infarction) ([facility]) Place 1 Tablet under the [...] failure with reduced ejection fraction) ([facility]) Take 1 Tablet by mouth in the morning. 90 Tablet 1 09/29/2023 Active Clopidogrel Bisulfate 75 MG Oral Tablet (pLAVix)Indications:H FrEF (heart failure with reduced ejection fraction) ([facility]) Take 1 Tablet by mouth [...] before bedtime. 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 * Telephone Encounter - Carol Quick RN - 11/06/2023 1:29 PM EST ----- Message from Agustín Sullivan MD sent at 11/03/2023 7:42 PM EST ----- Blood workup done on 11/02/2023: - Platelet count -> 228,000 - H&H of 11.3/38.6, WBC 7800. Normal platelet count. Will continue hydroxyurea at the same dose at 500 mg 5 days in a week. Repeat CBCD in about 3 months. documented in this encounter Plan of Treatment Upcoming Encounters Date Type Department Care Team ([facility] Contact Info) Description 11/20/2023 1:10 PM EST Anticoagulation Pharmacy [address] [phone] Pharmacist1, [facility] [address] [address] 11/20/2023 1:40 PM EST Office Visit Family [address] [phone] Yaya Frederick MD [address] [place] [address] 12/01/2023 2:15 PM EST Office Visit Hematology/Oncology [facility] 200 [facility] [place] [address] Agustín Sullivan MD 200 [place] [address] 12/27/2023 11:40 AM EST Office Visit Nephrology [address] [place] [phone] Alfa Holcomb MD 200 [place] [address] 01/26/2024 10:40 AM EDT Office Visit Otolaryngology [address] [place] [phone] Keely Tanner PA-C [address] [place] [address] 08/16/2024 11:00 AM EDT Cardiac Studies Cardiology, [facility] [address] [place] [address] [place] [facility] [address] [place] [address] Scheduled Orders Name Type Priority Associated Diagnoses Orde r Schedule CBC WITH WBC DIFFERENTIAL Lab STAT Essential thrombocythemia (HCC) Every 3 Months for 4 Occurrences starting 11/06/2023 until 11/06/2024 Health Maintenance Due Date Last Done Comments Zoster Vaccines (1 of 2) 1954 Hepatitis B (1 of 3 - Risk 3-dose series) 1996 COVID-19 Vaccine ( season) 2023 09/29/2022, 09/13/2021, 01/05/2021, Additional history exists Depression Screening 02/09/2024 02/08/2023 Albumin/Creatinine Ratio 06/15/202406/15/2 023, 05/01/2023, 07/04/2022, Additional history exists CKD HGB USE SMARTSET 33844 11/02/202411/02, 11/02/2023, 08/29/2023, Additional history exists CKD PHOS USE SMARTSET 23288 11/02/202410/23, 05/01/2023, 11/04/2022, Additional history exists DXA Scan 11/09/2024 11/09/2022, 01/21, 11/03/2015, Additional history exists DTaP,Tdap,and Td Vaccines (3 - Td or Tdap) 06/04/2029 06/04/2019, 01/28/2019, 05/26/2008 Pneumococcal Vaccine: 65+ Years Completed 05/24/2016, 11/14/2001 Influenza Vaccine (FLU shot) Completed 05/2023, 07/04/2022, 07/19/2021, Additional history exists VITAMIN D LEVEL ONCE IN A LIFETIME-USE SMARTSET# [id number] Completed 11/02/2023, 05/01/2023, 11/04/2022, Additional history exists [...] documented as of this encounter Care Teams Tunnel Elastic Operator Lockstitch Relationship Specialty Start Date End Date Yaya Frederick MD [address] [place] [address] PCP - General Family Medicine 05/04/21 documented as of this encounter
--- OUTSIDE RECORDS SUMMARY | 2023-12-12 09:18 | External Medical Summary | Summary of Care ---
Author Name Unknown Organization [facility] Address [address] [place] [address] Phone [phone] Care Team Providers Care Corporate Director Name Role Phone Yaya Frederick MD Primary Care Provider [phone] Reason for Visit * Reason Comments Dosage Adjustment In Person (Anticoag Cl inic) Encounter Details Date Type Department Care Team (Latest Contact Info) Description 11/20/2023 1:10 PM EST Anticoagulation Pharmacy [address] [phone] Pharmacist1, [facility] [address] [address] S/P aortic valve replacement* Allergies Active Allergy [...] SolutionIndications:P ost-nasal discharge Administer into nostril 1 [place] in the morning AND 1 [place] before bedtime. 30 mL 0 11/30/2021 Active Ipratropium [place] 0.03 % Nasal Solution Administer into each [...] MG Oral Capsule (Hydrea)Indications:E ssential thrombocythemia ([facility]) Take 1 capsule by mouth 5 [...] (Crestor)Indications: NSTEMI (non-ST elevated myocardial infarction) ([facility]) Take 1 Tablet by mouth in the morning. 90 Tablet 3 05/18/2023 Active Nitroglycerin 0.4 MG Sublingual Tablet Sublingual (Nitrostat)Indication s:NSTEMI (non-ST elevated myocardial infarction) ([facility]) Place 1 Tablet under the tongue [...] (heart failure with reduced ejection fraction) ([facility]) Take 1 Tablet by mouth in the morning. 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 # [id number] Manager Law: Wilda Serrano MD [phone] Type 2 diabetes mellitus wit h hemoglobin [...] mRNA, LNP-s, No Pre serve, 2-Dose Series ([employer]) 09/13/2021,01/05/2021,12/15/2020 Covid-19, Mrna, Lnp-s, Pf, B ivalent, [...] Pressure - - Pulse - - Temperature 36.1 C (97 F) 11/20/2023 1:26 PM EST Respiratory Rate - - Oxygen Saturation - - Inhaled Oxygen Concentration - - Weight 79.3 kg (174 lb 12.8 oz) 11/20/2023 1:26 PM EST Height - - Body Mass Index 35.24 10/25/2023 10:39 AM EST documented in this encounter Progress Notes * Wilda Plata, [facility] - 11/20/2023 1:14 PM EST Medication Therapy Disease Management - Anticoagulation Patient: Shannon Cruz | : 1935 Subjective Patient-Reported Symptoms: Patient Findings Positives: Extra doses (pt notes that she continued 2.5mg tablets until of last week. She has only been taking 1mg table dose for appx 3-4 days, notes that she has NOT stopped any. Will update olive since last visit) Negatives: Signs/symptoms of thrombosis, Signs/symptoms of bleeding, Change in health, Change in alcohol use, Change in activity, Upcoming invasive procedure, Missed doses, Change in medications, Change in diet/appetite, Bruising Objective Current Warfarin Dose As of 11/20/2023 INR Result As of 11/20/2023 INR goal: 2.0-3.0 INR used for dosin.0 (11/20/2023) Assessment & Plan Warfarin Plan As of 11/20/2023 Full warfarin instructions: 1 mg every day No change documented: Wilda Plata RPh Next INR check: 11/30/2023 Repeat PT/INR in 10 day(s) Weekly dose: not changed Additional Dosing Information: Description [facility] Home Health to complete INR. Fax to [phone]. Standing order for pt/inr. Please draw or completed fingerstick pt/inr as ordered by [facility] Pharmacist Results to [facility] Anticoagulation Clinic Ordering Provider Dr. Yaya Frederick NPI# [id number] Wilda Plata RPh Clinical Pharmacist 11/20/2023, 1:14 PM documented in this encounter Plan of Treatment Upcoming Encounters Date Type Department Care Team ([facility] st Contact Info) Description 12/01/2023 2:15 PM EST Office Visit Hematology/Oncology [facility] [address] [place] [address] Agustín Sullivan MD [address] [place] [address] 12/01/2023 5:10 PM EST Anticoagulation Pharmacy [address] [phone] Pharmacist2, [facility] [address] [address] 12/27/2023 11:40 AM EST Office Visit Nephrology [address] [place] [phone] Alfa Holcomb MD 200 [place] [address] 01/26/2024 10:40 AM EDT Office Visit Otolaryngology [address] [place] [phone] Keely Tanner PA-C [address] [facility] [place] [address] 08/16/2024 11:00 AM EDT Cardiac Studies Cardiology, [facility] [address] [facility] [place] [address] [place] [facility] [address] [place] [address] Health Maintenance Due Date Last Done Comments Zoster Vaccines (1 of 2) 1954 Hepatitis B (1 of 3 - Risk 3-dose series) 1996 COVID-19 Vaccine ( season) 2023 09/29/2022, 09/13/2021, 01/05/2021, Additional history exists Depression Screening 02/09/2024 02/08/2023 Albumin/Creatinine Ratio 06/15/202406/15/2 023, 05/01/2023, 07/04/2022, Additional history exists CKD HGB USE SMARTSET 62107 11/02/202411/02, 11/02/2023, 08/29/2023, Additional history exists CKD PHOS USE SMARTSET 25711 11/02/202410/23, 05/01/2023, 11/04/2022, Additional history exists DXA Scan 11/09/2024 11/09/2022, 01/21, 11/03/2015, Additional history exists DTaP,Tdap,and Td Vaccines (3 - Td or Tdap) 06/04/2029 06/04/2019, 01/28/2019, 05/26/2008 Pneumococcal Vaccine: 65+ Years Completed 05/24/2016, 11/14/2001 Influenza Vaccine (FLU shot) Completed 05/2023, 07/04/2022, 07/19/2021, Additional history exists VITAMIN D LEVEL ONCE IN A LIFETIME-USE SMARTSET# 13852 Completed 11/02/2023, 05/01/2023, 11/04/2022, Additional history exists [...] Comments INR FINGERSTICK, POINT OF CARE STAT 11/20/2023 1:21 PM EST S/P aortic valve replacement documented in this encounter Results * INR FINGERSTICK, POINT OF CARE (11/20/2023 1:21 PM EST) Fingerstick INR 3.0 INR 1:30 PM EST [facility] 60-86 Blood 11/20/2023 1:21 PM EST 11/20/2023 1:30 PM EST Narrative [facility] 60-86 - 11/20/2023 1:30 PM EST Therapeutic ranges for non-operative patients: Prophylaxsis/treatment of DVT: (Range:2.0-3.0) Treatment of pulmonary embolism:(Range:2.0-3.0) Prevention of systemic embolism from: -tissue heart valves -acute myocardial infarction -valvular heart disease -atrial fibrillation (Range: 2.0-3.0) Mechanical prosthetic valves: (Range: 2.5-3.5) Phucvalentin Lety Maricruz [facility] LAB POINT OF CA RE TEST DOCKED DEVICE UNSOLICITED RESULTS [facility] [address] [place] [address] documented in this encounter Visit Diagnoses Diagnosis S/P aortic valve replacement- Primary Heart valve replaced by other means documented in this encounter Additional Health Concerns Infection Onset Date Last Indicated Resolved Time Varicella zoster 08/01/2022 08/01/2022 documented as of this encounter Care Teams Corporate Director Relationship Specialty Start Date End Date Yaya Frederick MD [address] [place] [address] PCP - General Family Medicine 05/04/21 documented as of this encounter"
--- OUTSIDE RECORDS SUMMARY | 2023-12-12 09:18 | External Medical Summary | Summary of Care ---
Author Name Unknown Organization [facility] Address [address] [place] [address] Phone [phone] Care Team Providers Care Sound Person Name Role Phone Yaya Frederick MD Primary Care Provider [phone] Reason for Visit * Reason Onset Date Comments Test Results 11/03/2023 Encounter Details Date Type Department Care Team (Late st Contact Info) Description 11/03/2023 Telephone Nephrology, [facility] [address] [place] [address] Karlee Burgess MD [address] [place] [address] Test Results Allergies Active Allergy Reactions Criticality [...] as of this encounter (statuses as of 11/03/2023) Medications Medication Sig Dispensed Refills Start Date End Date Status BENADRYL 25 MG PO TABS 1 TABLET EVERY 4 TO 6 HOURS NEEDED 0 Active GRX ANALGESIC BALM EX OINT Apply topically to affected area. 0 07/01/2013 Active Azelastine HCl 0.15 % Nasal SolutionIndications: Post-nasal discharge Administer into nostril 1 [place] in the morning AND 1 [place] before bedtime. 30 mL 0 11/30/2021 Active Ipratropium [place] 0.03 % Nasal Solution Administer into each [...] Tablet (Crestor)Indications :NSTEMI (non-ST elevated myocardial infarction) ([facility]) Take 1 Tablet by mouth in the morning. 90 Tablet 3 05/18/2023 Active Nitroglycerin 0.4 MG Sublingual Tablet Sublingual (Nitrostat)Indicatio ns:NSTEMI (non-ST elevated myocardial infarction) ([facility]) Place 1 Tablet under the [...] FrEF (heart failure with reduced ejection fraction) ([facility]) Take 1 Tablet by mouth in the morning. 90 Tablet 1 09/29/2023 Active Clopidogrel Bisulfate 75 MG Oral Tablet (pLAVix)Indications: HFrEF (heart failure with reduced ejection fraction) ([facility]) Take 1 Tablet by mouth in the morning. 90 Tablet 1 09/29/2023 Active Torsemide 40 MG Oral TabletIndications:Hy pertensive kidney disease with stage 3a chronic kidney disease (HCC),Bilateral leg edema Take 80 mg by mouth in the morning. 180 Tablet 3 10/26/2023 Active Potassium Chloride Nita ER 20 MEQ Oral Tablet Extended ReleaseIndications:H ypertensive kidney disease with stage 3a chronic kidney disease (HCC),Bilateral leg edema Take 1 Tablet by mouth in the morning and 1 Tablet before bedtime. 180 Tablet 3 11/03/2023 Active Losartan Potassium 25 MG Oral Tablet (Cozaar)Indications: Hypertensive kidney disease with stage 3a chronic kidney disease (HCC),Bilateral leg edema Take 0.5 Tablets by mouth in the morning. 10/26/23-ON HOLD AT THIS TIME!. 0 10/26/2023 11/03/19 24 Discontinu ed(Medicat ion/Dose Changed) Potassium Chloride Nita ER 20 MEQ Oral Tablet Extended ReleaseIndications:H ypertensive kidney disease with stage 3a chronic kidney disease (HCC),Bilateral leg edema Take 1 Tablet by mouth in the morning. 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 # [id number] Grain Oilseed Or Pasture Grower: Wilda Serrano MD [phone] Type 2 diabetes mellitus wit h hemoglobin A1c goal of less than 7.0% 11/03/2006 08/15/2007 Overview: ICD-10 update of inactive term PURE HYPERCHOLESTEROLEM 11/03/200609/22 Overview: Per Lipid Taxonomy. 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/20 08 FDC current use of ant icoagulant therapy 05/05/2006 01/23/2009 Overview: ICD-10 update of inactive term Anticoagulation management encounter 05/05/2006 10/03/2019 Unspecified viral infection, in conditions classified elsewhere and of unspecified site 06/08/2005 09/25/2007 Menopause 12/19/2001 12/27/2017 FEM STRESS INCONTINENCE 05/10/200111/23 documented as of this encounter (statuses as of 11/03/2023) Immunizations Name Administration Dates Next Due COVID-19 mRNA, LNP-s, No Pre serve, 2-Dose Series ([employer]) 09/13/2021,01/05/2021,12/15/2020 Covid-19, Mrna, Lnp-s, Pf, B ivalent, 30 Mcg, IM, 12 yrs and above ([employer]) 09/29/2022 H1N1 2009 Influenza, IM 10/08/2009 Pneumococcal [...] encounter Miscellaneous Notes * Telephone Encounter - Alfa Holcomb MD - 11/03/2023 3:33 PM EST Noted. * Telephone Encounter - Denise Garcia RN - 11/03/2023 3:13 PM EST TE with pt regarding lab results . She states she is not taking Losartan. She is currently taking Torsemide 80mg daily. She states that her swelling is better. She is aware to increase potassium to twice daily. RX pended for signature. * Telephone Encounter - Denise Garcia RN - 11/03/2023 3:09 PM EST ----- Message from Alfa Holcomb MD sent at 11/03/2023 2:54 PM EST ----- Renal function abnormal but still within overall range. Continue current dose of diuretics Make sure she is not on losartan at this time Double the dose of potassium chloride to 20 mEq twice daily Ask how her edema is at this time and based on that will decide about the torsemide dose documented in this encounter Plan of Treatment Upcoming Encounters Date Type Department Care Team (Latest Contact Info) Description 11/03/2023 5:30 PM EST Anticoagulation Pharmacy [address] [phone] Pharmacist2, [address] [address] S/P aortic valve replacement* 11/20/2023 1:10 PM EST Anticoagulation Pharmacy [address] [phone] Pharmacist1, [address] [address] 11/20/2023 1:40 PM EST Office Visit Family [address] [phone] Yaya Frederick MD [address] [place] [address] 12/01/2023 2:15 PM EST Office Visit Hematology/Oncology [facility] 200 [facility] [place], [place] [address] Agustín Sullivan MD 200 [facility] [place], [place] [address] 12/27/2023 11:40 AM EST Office Visit Nephrology [address] [place] [address] Alfa Holcomb MD 200 [facility] [place], [place] [address] 01/26/2024 10:40 AM EDT Office Visit Otolaryngology [address] [place] [address] Keely Tanner PA-C [facility] [place] [address] 08/16/2024 11:00 AM EDT Cardiac Studies Cardiology, [facility] 132 [facility] [place] [address] [place] [facility] 132 [facility] [place] [address] Health Maintenance Due Date Last Done Comments Zoster Vaccines (1 of 2) 1954 Hepatitis B (1 of 3 - Risk 3-dose series) 1996 COVID-19 Vaccine ( season) 2023 09/29/2022, 09/13/2021, 01/05/2021, Additional history exists Depression Screening 02/09/2024 02/08/2023 Albumin/Creatinine Ratio 06/15/20242 023, 05/01/2023, 07/04/2022, Additional history exists CKD HGB USE SMARTSET 27584 11/02/202411/02, 11/02/2023, 08/29/2023, Additional history exists CKD PHOS USE SMARTSET 46658 11/02/202410/23, 05/01/2023, 11/04/2022, Additional history exists DXA Scan 11/09/2024 11/09/2022, 01/21, 11/03/2015, Additional history exists DTaP,Tdap,and Td Vaccines (3 - Td or Tdap) 06/04/2029 06/04/2019, 01/28/2019, 05/26/2008 Pneumococcal Vaccine: 65+ Years Completed 05/24/2016, 11/14/2001 Influenza Vaccine (FLU shot) Completed 05/2023, 07/04/2022, 07/19/2021, Additional history exists VITAMIN D LEVEL ONCE IN A LIFETIME-USE SMARTSET# 69506 Completed 11/02/2023, 05/01/2023, 11/04/2022, Additional history exists [...] Primary Heart valve replaced by other means Hypertensive kidney disease with stage 3a chronic kidney disease (HCC) Bilateral leg edema Edema documented in this encounter Additional Health Concerns Infection Onset Date Last Indicated Resolved Time Varicella zoster 08/01/2022 08/01/2022 documented as of this encounter Care Teams Sound Person Relationship Specialty Start Date End Date Yaya Frederick MD [address] [place] [address] PCP - General Family Medicine 05/04/21 documented as of this encounter
--- OUTSIDE RECORDS SUMMARY | 2023-12-12 09:18 | External Medical Summary | Summary of Care ---
Author Name Unknown Organization [facility] Address [address] [place] [address] Phone [phone] Care Team Providers Care Global Sales Director Name Role Phone Yaya Frederick MD Primary Care Provider [phone] Reason for Visit * Reason Onset Date Comments Test Results 11/07/2023 Encounter Details Date Type Department Care Team (Late st Contact Info) Description 11/07/2023 Telephone Nephrology, Segun Arndt 200 [facility] [place] [address] Alfa Holcomb MD [address] [place] [address] Test Results Allergies Active Allergy Reactions Criticality [...] as of this encounter (statuses as of 11/08/2023) Medications Medication Sig Dispensed Refills Start Date End Date Status BENADRYL 25 MG PO TABS 1 TABLET EVERY 4 TO 6 HOURS NEEDED 0 Active GRX ANALGESIC BALM EX OINT Apply topically to affected area. 0 07/01/2013 Active Azelastine HCl 0.15 % Nasal SolutionIndications:P ost-nasal discharge Administer into nostril 1 [place] in the morning AND 1 [place] before bedtime. 30 mL 0 11/30/2021 Active Ipratropium [place] 0.03 % Nasal Solution Administer into each [...] Tablet (Crestor)Indications: NSTEMI (non-ST elevated myocardial infarction) ([facility]) Take 1 Tablet by mouth in the morning. 90 Tablet 3 05/18/2023 Active Nitroglycerin 0.4 MG Sublingual Tablet Sublingual (Nitrostat)Indication s:NSTEMI (non-ST elevated myocardial infarction) ([facility]) Place 1 Tablet under the [...] rEF (heart failure with reduced ejection fraction) ([facility]) Take 1 Tablet by mouth in the morning. 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 # [id number] Chick Room Supervisor: Wilda Serrano MD [phone] Type 2 diabetes mellitus wit h hemoglobin [...] as of this encounter (statuses as of 11/08/2023) Immunizations Name Administration Dates Next Due COVID-19 mRNA, LNP-s, No Pre serve, 2-Dose Series ([employer]) 09/13/2021,01/05/2021,12/15/2020 Covid-19, Mrna, Lnp-s, Pf, B ivalent, [...] Telephone Encounter - Alfa Holcomb MD - 11/08/2023 9:33 AM EST No further advice * Telephone Encounter - Svetlana Shirely LPN - 11/07/2023 3:48 PM EST TE Spoke with pt she states she not having any frequency or dysuria Denies back or flank pain Feveror chills States "I do have occasional burning but it few and far in between" Pt is aware will report this to Dr Holcomb to see if he has any additional changes he would like to make * Telephone Encounter - Svetlana Shirley LPN - 11/07/2023 3:46 PM EST ----- Message from Alfa Holcomb MD sent at 11/07/2023 2:42 PM EST ----- Active urine sediment. No symptoms of UTI. documented in this encounter Plan of Treatment Upcoming Encounters Date Type Department Care Team ([facility] Contact Info) Description 11/20/2023 1:10 PM EST Anticoagulation Pharmacy [address] [phone] Pharmacist1, [facility] [address] [address] 11/20/2023 1:40 PM EST Office Visit Family Practice [address] [phone] Yaya Frederick MD [address] [place] [address] 12/01/2023 2:15 PM EST Office Visit Hematology/Oncology [facility] 200 [facility] [place] [address] Agustín Sullivan MD 200 [facility] [place] [address] 12/27/2023 11:40 AM EST Office Visit Nephrology [address] [place] [phone] Alfa Holcomb MD 200 [place] [address] 01/26/2024 10:40 AM EDT Office Visit Otolaryngology [address] [place] [phone] Keely Tanner PA-C [address] [place] [address] 08/16/2024 11:00 AM EDT Cardiac Studies Cardiology, [facility] [address] [place] [address] [place] [address] [place] [address] Health Maintenance Due Date Last Done Comments Zoster Vaccines (1 of 2) 1954 Hepatitis B (1 of 3 - Risk 3-dose series) 1996 COVID-19 Vaccine ( season) 2023 09/29/2022, 09/13/2021, 01/05/2021, Additional history exists Depression Screening 02/09/2024 02/08/2023 Albumin/Creatinine Ratio 06/15/20242 023, 05/01/2023, 07/04/2022, Additional history exists CKD HGB USE SMARTSET 75720 11/02/202411/02, 11/02/2023, 08/29/2023, Additional history exists CKD PHOS USE SMARTSET 81890 11/02/202410/23, 05/01/2023, 11/04/2022, Additional history exists DXA Scan 11/09/2024 11/09/2022, 01/21, 11/03/2015, Additional history exists DTaP,Tdap,and Td Vaccines (3 - Td or Tdap) 06/04/2029 06/04/2019, 01/28/2019, 05/26/2008 Pneumococcal Vaccine: 65+ Years Completed 05/24/2016, 11/14/2001 Influenza Vaccine (FLU shot) Completed 05/2023, 07/04/2022, 07/19/2021, Additional history exists VITAMIN D LEVEL ONCE IN A LIFETIME-USE SMARTSET# [id number] Completed 11/02/2023, 05/01/2023, 11/04/2022, Additional history exists [...] documented as of this encounter Care Teams Global Sales Director Relationship Specialty Start Date End Date Yaya Frederick MD [address] [place] [phone] PCP - General Family Medicine 05/04/21 documented as of this encounter
--- OUTSIDE RECORDS SUMMARY | 2023-12-12 09:18 | External Medical Summary | Summary of Care ---
Author Name Unknown Organization [facility] Address [address] [place] [address] Phone [phone] Care Team Providers Care Business Support Specialist Name Role Phone Yaya Frederick MD Primary Care Provider [phone] Reason for Visit * Reason Comments Dosage Adjustment Via Phone (anticoag Cl inic) Encounter Details Date Type Department Care Team (Latest Contact Info) Description 11/03/2023 5:30 PM EST Anticoagulation Pharmacy [address] [phone] Pharmacist2, [facility] [address] [address] S/P aortic valve replacement* Allergies Active Allergy [...] SolutionIndications: Post-nasal discharge Administer into nostril 1 [place] in the morning AND 1 [place] before bedtime. 30 mL 0 11/30/2021 Active Ipratropium [place] 0.03 % Nasal Solution Administer into each [...] Tablet (Crestor)Indications :NSTEMI (non-ST elevated myocardial infarction) ([facility]) Take 1 Tablet by mouth in the morning. 90 Tablet 3 05/18/2023 Active Nitroglycerin 0.4 MG Sublingual Tablet Sublingual (Nitrostat)Indicatio ns:NSTEMI (non-ST elevated myocardial infarction) [facility] [...] FrEF (heart failure with reduced ejection fraction) (HCC) [...] in the morning. 30 Tablet 5 10/26/2023 Active Warfarin Sodium 1 MG Oral Tablet (Coumadin) Take 1 Tablet by mouth in the morning. Or as directed by coumadin clinic. 90 Tablet 2 11/03/2023 Active Warfarin Sodium 2.5 MG Oral TabletIndications:Ch ronic ischemic heart disease Up to one tablet daily as directed by the [facility] clinic 100 Tablet 3 08/31/2023 11/03/19 Discontinu ed(Medicat ion/Dose Changed) Losartan Potassium 25 MG Oral Tablet (Cozaar)Indications: Hypertensive kidney disease with stage 3a chronic kidney disease (HCC),Bilateral leg edema Take 0.5 Tablets by mouth in the morning. 10/26/23-ON HOLD AT THIS TIME!. 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 # [id number] Novelty Twister Operator: Wilda Serrano MD [phone] Type 2 diabetes mellitus wit h hemoglobin [...] mRNA, LNP-s, No Pre serve, 2-Dose Series ([employer]) 09/13/2021,01/05/2021,12/15/2020 Covid-19, Mrna, Lnp-s, Pf, B ivalent, [...] Progress Notes * Raquel Alcantara, [facility] - 11/03/2023 12:18 PM EST Images from the original note were not included. Medication Therapy Disease Management - Anticoagulation Patient: Shannon Cruz | : 1935 Subjective Contacts Type Contact Phone/Fax 11/03/2023 12:19 PM EST Phone (Outgoing) Shannon Cruz (Self) [phone] (M) Patient-Reported Symptoms: Patient Findings Negatives: Signs/symptoms of thrombosis, Signs/symptoms of bleeding, Change in health, Change in alcohol use, Change in activity, Upcoming invasive procedure, Missed doses, Extra doses, Change in medications, Change in diet/appetite, Bruising Objective Current Warfarin Dose As of 11/03/2023 Warfarin maintenance plan: 0 mg every Wed; 1.25 mg (2.5 mg x 0.5) all other days INR Result As of 11/03/2023 INR goal: 2.0-3.0 INR used for dosin.2 (11/02/2023) Assessment & Plan Warfarin Plan As of 11/03/2023 Full warfarin instructions: 11/03: Hold; Otherwise 1 mg every day Next INR check: 11/20/2023 Repeat PT/INR in 2 week(s) (match PCP) Weekly dose: decreased by 6.7% Additional Dosing Information: Description [facility] Home Health to complete INR. Fax to [phone]. Standing order for pt/inr. Please draw or completed fingerstick pt/inr as ordered by [facility] Pharmacist Results to [facility] Ordering Provider Dr. Yaya Frederick NPI# [id number] Raquel Alcantara [facility] Clinical Pharmacist 11/03/2023, 12:18 PM documented in this encounter Plan of Treatment Upcoming Encounters Date Type Department Care Team ([facility] st Contact Info) Description 11/20/2023 1:10 PM EST Anticoagulation Pharmacy [facility], [address] [phone] Pharmacist1, [facility] [address] [address] 11/20/2023 1:40 PM EST Office Visit Family Practice [facility] [address] [place] [phone] Yaya Frederick MD [address] [place] [address] 12/01/2023 2:15 PM EST Office Visit Hematology/Oncology [facility] 200 [facility] [place] [address] Agustín Sullivan MD 200 [facility] [place] [address] 12/27/2023 11:40 AM EST Office Visit Nephrology [address] [place] [phone] Alfa Holcomb MD 200 [facility] [place] [address] 01/26/2024 10:40 AM EDT Office Visit Otolaryngology [address] [place] [phone] Keely Tanner PA-C [address] [place] [address] 08/16/2024 11:00 AM EDT Cardiac Studies Cardiology, [facility] [address] [place] [address] [facility] [address] [facility] [address] Health Maintenance Due Date Last Done Comments Zoster Vaccines (1 of 2) 1954 Hepatitis B (1 of 3 - Risk 3-dose series) 1996 COVID-19 Vaccine (2022- season) 2023 09/29/2022, 09/13/2021, 01/05/2021, Additional history exists Depression Screening 02/09/2024 02/08/2023 Albumin/Creatinine Ratio 06/15/2024 023, 05/01/2023, 07/04/2022, Additional history exists CKD HGB USE SMARTSET 23460 11/02/202411/02, 11/02/2023, 08/29/2023, Additional history exists CKD PHOS USE SMARTSET 61295 11/02/202410/23, 05/01/2023, 11/04/2022, Additional history exists DXA Scan 11/09/2024 11/09/2022, 01/21, 11/03/2015, Additional history exists DTaP,Tdap,and Td Vaccines (3 - Td or Tdap) 06/04/2029 06/04/2019, 01/28/2019, 05/26/2008 Pneumococcal Vaccine: 65+ Years Completed 05/24/2016, 11/14/2001 Influenza Vaccine (FLU shot) Completed 05/2023, 07/04/2022, 07/19/2021, Additional history exists VITAMIN D LEVEL ONCE IN A LIFETIME-USE SMARTSET# 34733 Completed 11/02/2023, 05/01/2023, 11/04/2022, Additional history exists [...] documented as of this encounter Care Teams Business Support Specialist Relationship Specialty Start Date End Date Yaya Frederick MD [address] [place] [address] PCP - General Family Medicine 05/04/21 documented as of this encounter"
--- OUTSIDE RECORDS SUMMARY | 2023-12-12 09:18 | External Medical Summary ---
Author Name Unknown Address Unknown Organization : Laboratory Report Ordering Provider Test Date Status TAMEKA CANDELARIOXTON 11/20/2023 13:21:39 Final Therapeutic ranges for non-o perative patients:
Prophylaxsis/treatment of DVT: (Range:2.0-3.0)
Treatment of pulmonary embolism:(Range:2.0-3.0)
Prevention of systemic embolism from:
-tissue heart valves
-acute myocardial infarction
-valvular heart disease
-atrial fibrillation
(Range: 2.0-3.0)
Mechanical prosthetic valves: (Range: 2.5-3.5) Observation Date Value Abnormality Reference (Units ) Status INR in Capillary blood by Coagulation assay 11/20/2023 13:21:39 3.0 (INR) Final Performing Location
--- OUTSIDE RECORDS SUMMARY | 2023-12-12 09:18 | External Medical Summary ---
Author Name Unknown Address Unknown Organization K01:LABORATORY [facility] - [address] [place] [id number] Laboratory Report Ordering Provider Test Date Status KIRAN ELLIOTT 11/06/2023 15:09:29 Final Normal: <150 mg/ g creatinine
High: 150-500 mg/g creatinine
Very High: >500 mg/g creatinine
Nephrotic: >3000 mg/g creatinine Observation Date Value Abnormality Reference (Units ) Status Protein/Creatinine [Ratio] in Urine 11/06/2023 15:09:29 1107 Above high normal <150 (mg/g ) Final Protein, Urine 11/06/2023 15:09:29 62 (mg/dL) Final Creatinine, Urine 11/06/2023 15:09:29 56 (mg/dL) Final Performing Location LABORATORY [facility] - [address] [place] [address]
--- OUTSIDE RECORDS SUMMARY | 2023-12-12 09:18 | External Medical Summary ---
Author Name Unknown Address Unknown Organization K01:LAB[facility]ATORY [facility] - [address] [facility] [place] [id number] Laboratory Report Ordering Provider Test Date Status KIRAN ELLIOTT 11/06/2023 15:09:29 Final Observation Date Value Abnormality Reference (Units ) Status Color of Urine by Auto 11/06/2023 15:09:29 Yellow Colorless, Light Yellow, Yellow, Dark Yellow Final Clarity, Urine 11/06/2023 15:09:29 Slightly Cloudy Abnormal Clear Final Glucose [Mass/volume] in Urine by Automated test strip 11/06/2023 15:09:29 Negative Negative (mg/dL) Final Bilirubin.total [Presence] in Urine by Automated test strip 11/06/2023 15:09:29 Negative Negative Final Ketones [Mass/volume] in Urine by Automated test strip 11/06/2023 15:09:29 Negative Negative (mg/dL) Final Specific gravity, Urine 11/06/2023 15:09:29 1.014 1.003-1.030 Final Hemoglobin [Presence] in Urine by Automated test strip 11/06/2023 15:09:29 Small Abnormal Negative Final pH, Urine 11/06/2023 15:09:29 6.0 5.0-7.5 (Units) Final Protein [Mass/volume] in Urine by Automated test strip 11/06/2023 15:09:29 30 Abnormal Negative (mg/dL) Final Urobilinogen [Mass/volume] in Urine by Automated test strip 11/06/2023 15:09:29 Normal Normal (mg/dL) Final Nitrite [Presence] in Urine by Automated test strip 11/06/2023 15:09:29 Positive Abnormal Negative Final Leukocyte esterase [Presence] in Urine by Automated test strip 11/06/2023 15:09:29 Large Abnormal Negative Final RBC, Urine 11/06/2023 15:09:29 10-19 Abnormal 0-2 (/HPF) Final WBC, Urine 11/06/2023 15:09:29 50+ Abnormal 0-2 (/HPF) Final Bacteria [#/area] in Urine sediment by Microscopy high power field 11/06/2023 15:09:29 101-150 Abnormal 0-25 (/HPF) Final Hyaline casts, Urine 11/06/2023 15:09:29 5-9 Abnormal None (/LPF) Final Crystals.amorphous [#/area] in Urine sediment by Microscopy high power field 11/06/2023 15:09:29 Many Abnormal None (/HPF) Final Performing Location LABORATORY [facility] - [address] [facility] [address]
--- OUTSIDE RECORDS SUMMARY | 2023-12-12 09:18 | External Medical Summary | Summary of Care ---
Author Name Unknown Organization [facility] Address [address] [place] [address] Phone [phone] Care Team Providers Care License And Permit Specialist Name Role Phone Yaya Frederick MD Primary Care Provider [phone] Reason for Visit * Reason Onset Date Comments Test Results 11/07/2023 Encounter Details Date Type Department Care Team (Late st Contact Info) Description 11/07/2023 Telephone Nephrology, Segun Arndt 200 [facility] [place] [address] Alfa Holcomb MD [address] [place] [address] Test Results Allergies Active Allergy Reactions Criticality [...] SolutionIndications:P ost-nasal discharge Administer into nostril 1 [place] in the morning AND 1 [place] before bedtime. 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 # [id number] Cloth Classer: Wilda Serrano MD [phone] Type 2 diabetes mellitus wit h hemoglobin A1c goal of less than 7.0% 11/03/2006 08/15/2007 Overview: ICD-10 update of inactive term PURE HYPERCHOLESTEROLEM 11/03/200609/22 Overview: Per Lipid Taxonomy. 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/20 08 retirement current use of ant icoagulant therapy 05/05/2006 01/23/2009 Overview: ICD-10 update of inactive term Anticoagulation management encounter 05/05/2006 10/03/2019 Unspecified viral infection, in conditions classified elsewhere and of unspecified site 06/08/2005 09/25/2007 Menopause 12/19/2001 12/27/2017 FEM STRESS INCONTINENCE 05/10/200111/23 documented as of this encounter (statuses as of 11/08/2023) Immunizations Name Administration Dates Next Due COVID-19 mRNA, LNP-s, No Pre serve, 2-Dose Series ([employer]) 09/13/2021,01/05/2021,12/15/2020 Covid-19, Mrna, Lnp-s, Pf, B ivalent, [...] encounter Miscellaneous Notes * Telephone Encounter - Svetlana Shirley LPN - 11/08/2023 11:58 AM EST MyG message per Dr Holcomb No further advise * Telephone Encounter - Alfa Holcomb MD - 11/08/2023 9:33 AM EST No further advice * Telephone Encounter - Svetlana Shirley LPN - 11/07/2023 3:48 PM EST TE [...] Upcoming Encounters Date Type Department Care Team ([facility] Contact Info) Description 11/20/2023 1:10 PM EST Anticoagulation Pharmacy [address] [phone] Pharmacist, [facility] [address] [address] 11/20/2023 1:40 PM EST Office Visit Family Practice [address] [phone] Yaya Frederick MD [address] [place] [address] 12/01/2023 2:15 PM EST Office Visit Hematology/Oncology [address] [place] [address] [place], [place] [address] Agustín Sullivan MD 200 [facility] [place] [address] 12/27/2023 11:40 AM EST Office Visit Nephrology [facility] [address] [facility] [address] [place] [phone] Alfa Holcomb MD [address] [place] [address] 01/26/2024 10:40 AM EDT Office Visit Otolaryngology [facility] [address] [facility] [address] [place] [phone] Keely Tanner PA-C [address] [place] [address] 08/16/2024 11:00 AM EDT Cardiac Studies Cardiology, [facility] [address] [place] [address] [facility] [address] [place] [address] Health Maintenance Due Date Last Done Comments Zoster Vaccines (1 of 2) 1954 Hepatitis B (1 of 3 - Risk 3-dose series) 1996 COVID-19 Vaccine (2022- season) 2023 09/29/2022, 09/13/2021, 01/05/2021, Additional history exists Depression Screening 02/09/2024 02/08/2023 Albumin/Creatinine Ratio 06/15/202406/15/2 023, 05/01/2023, 07/04/2022, Additional history exists CKD HGB USE SMARTSET 61442 11/02/202411/02, 11/02/2023, 08/29/2023, Additional history exists CKD PHOS USE SMARTSET 37954 11/02/202410/23, 05/01/2023, 11/04/2022, Additional history exists DXA Scan 11/09/2024 11/09/2022, 01/21, 11/03/2015, Additional history exists DTaP,Tdap,and Td Vaccines (3 - Td or Tdap) 06/04/2029 06/04/2019, 01/28/2019, 05/26/2008 Pneumococcal Vaccine: 65+ Years Completed 05/24/2016, 11/14/2001 Influenza Vaccine (FLU shot) Completed 05/2023, 07/04/2022, 07/19/2021, Additional history exists VITAMIN D LEVEL ONCE IN A LIFETIME-USE SMARTSET# 51363 Completed 11/02/2023, 05/01/2023, 11/04/2022, Additional history exists [...] documented as of this encounter Care Teams License And Permit Specialist Relationship Specialty Start Date End Date Yaya Frederick MD [address] [place] [address] PCP - General Family Medicine 05/04/21 documented as of this encounter
--- OUTSIDE RECORDS SUMMARY | 2023-12-12 09:18 | External Medical Summary | Summary of Care ---
Author Name Unknown Organization [facility] Address [address] [place] [address] Phone [phone] Care Team Providers Care Mine Manager Name Role Phone Yaya Frederick MD Primary Care Provider [phone] Reason for Visit * Reason Comments Outpatient Testing Encounter Details Date Type Department Care Team (Late st Contact Info) Description 11/06/2023 3:10 PM EST Laboratory [facility], [address] [address] Street, Specimen Drop Off [address] [address] Kidney disease, chronic, stage IV (GFR 15-29 ml/min) ([facility]) Allergies Active Allergy Reactions Criticality Noted Date [...] SolutionIndications:P ost-nasal discharge Administer into nostril 1 [place] in the morning AND 1 [place] before bedtime. 30 mL 0 11/30/2021 Active Ipratropium [place] 0.03 % Nasal Solution [...] NSTEMI (non-ST elevated myocardial infarction) ([facility]) Take 1 Tablet by mouth [...] failure with reduced ejection fraction) ([facility]) Take 1 Tablet by mouth in the morning. 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 # Assistant Spa Director: Wilda Serrano MD [phone] Type 2 diabetes mellitus wit h hemoglobin A1c goal of less than 7.0% 11/03/2006 08/15/2007 Overview: ICD-10 update of inactive term PURE HYPERCHOLESTEROLEM 11/03/200609/22 Overview: Per Lipid Taxonomy. 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/20 08 halfway current use of ant icoagulant therapy 05/05/2006 01/23/2009 Overview: ICD-10 update of inactive term Anticoagulation management encounter 05/05/2006 10/03/2019 Unspecified viral infection, in conditions classified elsewhere and of unspecified site 06/08/2005 09/25/2007 Menopause 12/19/2001 12/27/2017 FEM STRESS INCONTINENCE 05/10/200111/23 documented as of this encounter (statuses as of 11/06/2023) Immunizations Name Administration Dates Next Due COVID-19 mRNA, LNP-s, No Pre serve, 2-Dose Series (Imaging[employer]) 09/13/2021,01/05/2021,12/15/2020 Covid-19, Mrna, Lnp-s, Pf, B ivalent, [...] Upcoming Encounters Date Type Department Care Team ([facility] st Contact Info) Description 11/20/2023 1:10 PM EST Anticoagulation Pharmacy [address] [phone] Pharmacist1, [facility] [address] [place] [address] 11/20/2023 1:40 PM EST Office Visit Family Practice [address] [phone] Yaya Frederick MD [address] [place] [address] [place] [address] 12/01/2023 2:15 PM EST Office Visit Hematology/Oncology [facility] [address] [facility] [place] [address] Agustín Sullivan MD [address] [facility] [place] [address] 12/27/2023 11:40 AM EST Office Visit Nephrology [address] [place] [phone] Alfa Holcomb MD [address] [facility] [place] [address] 01/26/2024 10:40 AM EDT Office Visit Otolaryngology [address] [place] [phone] Keely Tanner PA-C [facility] [address] 08/16/2024 11:00 AM EDT Cardiac Studies Cardiology, [facility] 132 [facility] [place] [address] [facility] [address] Pending Results Name Type Priority Associated Diagnoses Date /Time PROTEIN/ CREATININE RATIO, URINE Lab Routine Kidney disease, chronic, stage IV (GFR 15-29 ml/min) ([facility]) 11/06/2023 3:09 PM EST URINALYSIS WITH MICROSCOPIC EXAM Lab Routine Kidney disease, chronic, stage IV (GFR 15-29 ml/min) ([facility]) 11/06/2023 3:09 PM EST Health Maintenance Due Date Last Done Comments Zoster Vaccines (1 of 2) 1954 Hepatitis B (1 of 3 - Risk 3-dose series) 1996 COVID-19 Vaccine (5 - 2023-24 season) 2023 09/29/2022, 09/13/2021, 01/05/2021, Additional history exists Depression Screening 02/09/2024 02/08/2023 Albumin/Creatinine Ratio 06/15/20242 023, 05/01/2023, 07/04/2022, Additional history exists CKD HGB USE SMARTSET 59518 11/02/202411/02, 11/02/2023, 08/29/2023, Additional history exists CKD PHOS USE SMARTSET 30897 11/02/202410/23, 05/01/2023, 11/04/2022, Additional history exists DXA Scan 11/09/2024 11/09/2022, 01/21, 11/03/2015, Additional history exists DTaP,Tdap,and Td Vaccines (3 - Td or Tdap) 06/04/2029 06/04/2019, 01/28/2019, 05/26/2008 Pneumococcal Vaccine: 65+ Years Completed 05/24/2016, 11/14/2001 Influenza Vaccine (FLU shot) Completed 05/2023, 07/04/2022, 07/19/2021, Additional history exists VITAMIN D LEVEL ONCE IN A LIFETIME-USE SMARTSET# [id number] Completed 11/02/2023, 05/01/2023, 11/04/2022, Additional history exists [...] documented as of this encounter Care Teams Mine Manager Relationship Specialty Start Date End Date Yaya Frederick MD [address] [place] [address] PCP - General Family Medicine 7/13/21 documented as of this encounter
--- OUTSIDE RECORDS SUMMARY | 2023-12-12 09:18 | External Medical Summary | Summary of Care ---
Author Name Unknown Organization [facility] Address [address] [place] [address] Phone [phone] Care Team Providers Care Strategic Marketing Leader Name Role Phone Yaya Frederick MD Primary Care Provider [phone] Encounter Details Date Type Department Care Team (Late st Contact Info) Description 11/17/2023 Result Scan Unspecified Department Yared Raphael MD [...] as of this encounter (statuses as of 11/17/2023) Medications Medication Sig Dispensed Refills Start Date End Date Status BENADRYL 25 MG PO TABS 1 TABLET EVERY 4 TO 6 HOURS NEEDED 0 Active GRX ANALGESIC BALM EX OINT Apply topically to affected area. 0 07/01/2013 Active Azelastine HCl 0.15 % Nasal SolutionIndications:P ost-nasal discharge Administer into nostril 1 [place] in the morning AND 1 [place] before bedtime. 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 # [id number] Box Storage Worker: Wilda Serrano MD [phone] GENOMICS CARDIO RESEARCH OTHER*[id number] 01/09/2007 11/29/2016 Overview: Renamed Per Clinical Trials Billing Project. 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 # [id number] Box Storage Worker: Wilda Serrano MD [phone] Type 2 diabetes mellitus wit h hemoglobin A1c goal of less than 7.0% 11/03/2006 08/15/2007 Overview: ICD-10 update of inactive term PURE HYPERCHOLESTEROLEM 11/03/200609/22 Overview: Per Lipid Taxonomy. 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 05/05/2006 01/23/2009 Overview: ICD-10 update of inactive term Anticoagulation management encounter 05/05/2006 10/03/2019 Unspecified viral infection, in conditions classified elsewhere and of unspecified site 06/08/2005 09/25/2007 Menopause 12/19/2001 12/27/2017 FEM STRESS INCONTINENCE 05/10/200111/23 documented as of this encounter (statuses as of 11/17/2023) Immunizations Name Administration Dates Next Due COVID-19 mRNA, LNP-s, No Pre serve, 2-Dose Series ([employer]) 09/13/2021,01/05/2021,12/15/2020 Covid-19, Mrna, Lnp-s, Pf, B ivalent, [...] Upcoming Encounters Date Type Department Care Team ([facility] Contact Info) Description 11/20/2023 1:10 PM EST Anticoagulation Pharmacy [address] [phone] Pharmacist1, [facility] [address] [address] 11/20/2023 1:40 PM EST Office Visit Family Practice [address] [phone] Yaya Frederick MD [address] [place] [address] 12/01/2023 2:15 PM EST [facility] [address] Agustín Sullivan MD [address] [place] [address] 12/27/2023 11:40 AM EST Office Visit Nephrology [facility] [address] [facility] [address] [place] [address] Alfa Holcomb MD 200 [facility] [place] [address] 01/26/2024 10:40 AM EDT Office Visit Otolaryngology [facility] [address] [facility] [address] [place] [address] Keely Tanner PA-C [address] [facility] [place] [address] 08/16/2024 11:00 AM EDT Cardiac Studies Cardiology, [facility] [address] [facility] [place] [address] [place] [facility] [address] [facility] [place] [address] Health Maintenance Due Date Last Done Comments Zoster Vaccines (1 of 2) 1954 Hepatitis B (1 of 3 - Risk 3-dose series) 1996 COVID-19 Vaccine ( season) 2023 09/29/2022, 09/13/2021, 01/05/2021, Additional history exists Depression Screening 02/09/2024 02/08/2023 Albumin/Creatinine Ratio 06/15/202406/15/2 023, 05/01/2023, 07/04/2022, Additional history exists CKD HGB USE SMARTSET 46949 11/02/202411/02, 11/02/2023, 08/29/2023, Additional history exists CKD PHOS USE SMARTSET 85683 11/02/202410/23, 05/01/2023, 11/04/2022, Additional history exists DXA Scan 11/09/2024 11/09/2022, 01/21, 11/03/2015, Additional history exists DTaP,Tdap,and Td Vaccines (3 - Td or Tdap) 06/04/2029 06/04/2019, 01/28/2019, 05/26/2008 Pneumococcal Vaccine: 65+ Years Completed 05/24/2016, 11/14/2001 Influenza Vaccine (FLU shot) Completed 05/2023, 07/04/2022, 07/19/2021, Additional history exists VITAMIN D LEVEL ONCE IN A LIFETIME-USE SMARTSET# 05937 Completed 11/02/2023, 05/01/2023, 11/04/2022, Additional history exists GARDASIL-HPV IMMUNIZATION SERIES Aged Out No longer eligible based on patient's age to complete this topic MENINGOCOCCAL (MENACTRA/MENVEO) Aged Out No longer eligible based on patient's age to complete this topic documented as of this encounter Medical Devices Not on filedocumented as of this encounter Procedures Procedure Name Priority Date/Time Associated Diagnosis Comments CARDIOLOGY SCANNED RESULT 11/17/2023 documented in this encounter Results * CARDIOLOGY SCANNED RESULT (11/17/2023) 11/17/2023 Yared Raphael MD OTHER documented in this encounter Additional Health Concerns Infection Onset Date Last Indicated Resolved Time Varicella zoster 08/01/2022 08/01/2022 documented as of this encounter Care Teams Strategic Marketing Leader Relationship Specialty Start Date End Date Yaya Frederick MD [address] [place] [address] PCP - General Family Medicine 05/04/21 documented as of this encounter
--- OUTSIDE RECORDS SUMMARY | 2023-12-12 09:19 | External Medical Summary ---
Author Name Unknown Address Unknown Organization [id number]:[facility] [place] [facility] [address] [place] [address] Laboratory Report Ordering Provider Test Date Status JER FITCH 11/02/2023 13:48:22 Final Observation Date Value Abnormality Reference (Units ) Status WBC, Total 11/02/2023 13:48:22 7.89 4.00-10.80 (K/uL) Final RBC 11/02/2023 13:48:22 3.29 3.85-5.15 (M/uL) Final Hemoglobin 11/02/2023 13:48:22 11.3 Below low normal 12.0-15.3 (g/dL) Final HCT 11/02/2023 13:48:22 38.6 36.0-45.2 (%) Final MCV 11/02/2023 13:48:22 117.3 81.5-97.5 (fL) Final MCH 11/02/2023 13:48:22 34.3 27.0-34.0 (pg) Final MCHC 11/02/2023 13:48:22 29.3 32.0-36.0 (g/dL) Final RDW 11/02/2023 13:48:22 17.0 11.5-15.5 (%) Final Platelets 11/02/2023 13:48:22 228 140-400 (K/uL) Final MPV 11/02/2023 13:48:22 12.2 6.6-11.1 (fL) Final Nucleated erythrocytes/100 leukocytes [Ratio] in Blood by Automated count 11/02/2023 13:48:22 0 <=0 (/100 WBCs) Final Performing Location [facility] [place] [address] [facility] [place] [address]
--- OUTSIDE RECORDS SUMMARY | 2023-12-12 09:19 | External Medical Summary | Summary of Care ---
Author Name Unknown Organization [facility] Address [address] [place] [address] Phone [phone] Care Team Providers Care Award Machine Operator Name Role Phone Yaya Frederick MD Primary Care Provider [phone] Reason for Visit * Reason Comments Outpatient Testing Encounter Details Date Type Department Care Team (Latest Contact Info) Description 11/02/2023 1:50 PM EST [facility] [phone] [facility] [address] S/P aortic valve replacement; Essential thrombocythemia ([facility]); Kidney disease, chronic, stage IV (GFR 15-29 ml/min) ([facility]); HFrEF (heart failure with reduced ejection fraction) ([facility]); Hypertensive kidney disease with stage 3a chronic kidney disease ([facility]); Bilateral leg edema Allergies Active Allergy Reactions Criticality Noted Date [...] as of this encounter (statuses as of 11/02/2023) Medications Medication Sig Dispensed Refills Start Date End Date Status BENADRYL 25 MG PO TABS 1 TABLET EVERY 4 TO 6 HOURS NEEDED 0 Active GRX ANALGESIC BALM EX OINT Apply topically to affected area. 0 07/01/2013 Active Azelastine HCl 0.15 % Nasal SolutionIndications:P ost-nasal discharge Administer into nostril 1 [place] in the morning AND 1 [place] before bedtime. 30 mL 0 11/30/2021 Active Ipratropium [place] 0.03 % Nasal Solution Administer into each [...] Anticoag clinic 100 Tablet 3 08/31/2023 Active Additional Information Patient taking differently: 1.25 mg, Up to one tablet daily as directed by the Anticoag clinic, Reported on 10/25/2023 Isosorbide Mononitrate ER 60 MG Oral Tablet Extended Release 24 Hour (Imdur)Indications:HF rEF (heart failure with reduced ejection fraction) ([facility]) Take 1 Tablet by mouth in the morning. 90 Tablet 1 09/29/2023 Active Clopidogrel Bisulfate 75 MG Oral Tablet (pLAVix)Indications:H FrEF (heart failure with reduced ejection fraction) ([facility]) Take 1 Tablet by mouth in the morning. 90 Tablet 1 09/29/2023 Active Losartan Potassium 25 MG Oral Tablet (Cozaar)Indications:H ypertensive kidney disease with stage 3a chronic kidney disease ([facility]),Bilateral leg edema Take 0.5 Tablets by mouth in the morning. 10/26/23-ON HOLD AT THIS TIME!. 0 10/26/2023 Active Torsemide 40 MG Oral TabletIndications:Hyp ertensive [...] the morning. 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 # [id number] Court Bailiff: Wilda Serrano MD [phone] Type 2 diabetes mellitus wit h hemoglobin A1c goal of less than 7.0% 11/03/2006 08/15/2007 Overview: ICD-10 update of inactive term PURE HYPERCHOLESTEROLEM 11/03/200609/22 Overview: Per Lipid Taxonomy. 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/20 08 prison current use of ant icoagulant therapy 05/05/2006 01/23/2009 Overview: ICD-10 update of inactive term Anticoagulation management encounter 05/05/2006 10/03/2019 Unspecified viral infection, in conditions classified elsewhere and of unspecified site 06/08/2005 09/25/2007 Menopause 12/19/2001 12/27/2017 FEM STRESS INCONTINENCE 05/10/200111/23 documented as of this encounter (statuses as of 11/02/2023) Immunizations Name Administration Dates Next Due COVID-19 mRNA, LNP-s, No Pre serve, 2-Dose Series ([employer]) 09/13/2021,01/05/2021,12/15/2020 Covid-19, Mrna, Lnp-s, Pf, B ivalent, [...] Team (Late st Contact Info) Description 11/06/2023 5:40 PM EST Anticoagulation Pharmacy [facility] [address] [place] [address] Pharmacist2, [facility] [address] [address] 11/20/2023 1:40 PM EST Office Visit Family Practice [facility] [address] [place] [phone] Yaya Frederick MD [address] [place] [address] 12/01/2023 2:15 PM EST Office Visit Hematology/Oncology [facility] [address] [facility] [place] [address] Agustín Sullivan MD [address] [facility] [place] [address] 12/27/2023 11:40 AM EST Office Visit Nephrology [address] [place] [phone] Alfa Holcomb MD 200 [place] [address] 01/26/2024 10:40 AM EDT Office Visit Otolaryngology [address] [place] [phone] eKely Tanner PA-C [facility] [place] [address] 08/16/2024 11:00 AM EDT Cardiac Studies Cardiology, [facility] [place] [address] [facility] [address] [place] [address] Pending Results Name Type Priority Associated Diagnoses Date /Time PT INR Lab Routine S/P aortic valve replacement 11/02/2023 1:48 PM EST CBC WITH WBC DIFFERENTIAL Lab STAT Essential thrombocythemia ([facility]) 11/02/2023 1:48 PM EST PTH Lab Routine Kidney disease, chronic, stage IV (GFR 15-29 ml/min) ([facility]) 11/02/2023 1:48 PM EST RENAL FUNCTION PANEL Lab Routine Kidney disease, chronic, stage IV (GFR 15-29 ml/min) ([facility]) 11/02/2023 1:48 PM EST 25-HYDROXY VITAMIN D Lab Routine Kidney disease, chronic, stage IV (GFR 15-29 ml/min) ([facility]) 11/02/2023 1:48 PM EST MAGNESIUM Lab Routine Kidney disease, chronic, stage IV (GFR 15-29 ml/min) ([facility]) 11/02/2023 1:48 PM EST BNP, NT-PRO Lab Routine HFrEF (heart failure with reduced ejection fraction) ([facility]) 11/02/2023 1:48 PM EST CBC Lab STAT Essential thrombocythemia ([facility]) 11/02/2023 1:48 PM EST DIFFERENTIAL, AUTOMATED Lab STAT Essential thrombocythemia ([facility]) 11/02/2023 1:48 PM EST Health Maintenance Due Date Last Done Comments Zoster Vaccines (1 of 2) 1954 Hepatitis B (1 of 3 - Risk 3-dose series) 1996 COVID-19 Vaccine ( season) 2023 09/29/2022, 09/13/2021, 01/05/2021, Additional history exists Depression Screening 02/09/2024 02/08/2023 CKD PHOS USE SMARTSET 49582 05/01/202404/22, 11/04/2022, 02/14/2019 Albumin/Creatinine Ratio 06/15/2024 023, 05/01/2023, 07/04/2022, Additional history exists CKD HGB USE SMARTSET 41806 08/29/202408/29, 08/29/2023, 08/11/2023, Additional history exists DXA Scan 11/09/2024 11/09/2022, 01/21, 11/03/2015, Additional history exists DTaP,Tdap,and Td Vaccines (3 - Td or Tdap) 06/04/2029 06/04/2019, 01/28/2019, 05/26/2008 Pneumococcal Vaccine: 65+ Years Completed 05/24/2016, 11/14/2001 VITAMIN D LEVEL ONCE IN A LIFETIME-USE SMARTSET# 45361 Completed 05/01/2023, 11/04/2022, 02/14/2019, Additional history exists [...] (HCC) Chronic kidney disease, Stage IV (severe) HFrEF (heart failure with reduced ejection fraction) (HCC) Hypertensive kidney disease with stage 3a chronic kidney disease (HCC) Bilateral leg edema Edema documented in this encounter Additional Health Concerns Infection Onset Date Last Indicated Resolved Time Varicella zoster 08/01/2022 08/01/2022 documented as of this encounter Care Teams Award Machine Operator Relationship Specialty Start Date End Date Yaya Frederick MD [address] [place] [address] PCP - General Family Medicine 05/04/21 documented as of this encounter
--- OUTSIDE RECORDS SUMMARY | 2023-12-12 09:19 | External Medical Summary ---
Author Name Unknown Address Unknown Organization K01:[facility] [place] [address] [facility] [place] [address] Laboratory Report Ordering Provider Test Date Status JER FITCH 11/02/2023 13:48:22 Final Observation Date Value Abnormality Reference (Units ) Status SYNC LEUKOCYTES IN BLOOD BY AUTOMATED COUNT 11/02/2023 13:48:22 7.89 4.00-10.80 (K/uL) Final Segs 11/02/2023 13:48:22 74.8 40.0-75.0 (%) Final Lymphs % 11/02/2023 13:48:22 9.3 Below low normal 18.0-42.0 (%) Final Monos 11/02/2023 13:48:22 10.4 1.0-11.0 (%) Final Eosinophils 11/02/2023 13:48:22 4.2 0.0-6.0 (%) Final Basos 11/02/2023 13:48:22 1.0 0.0-2.0 (%) Final Immature Granulocyte, Percent 11/02/2023 13:48:22 0.3 0.0-2.0 (%) Final Absolute Segs 11/02/2023 13:48:22 5.91 1.80-7.70 (K/uL) Final Lymphs, absolute 11/02/2023 13:48:22 0.73 Below low normal 1.00-4.80 (K/ul) Final Monos, Abs 11/02/2023 13:48:22 0.82 0.00-1.10 (K/uL) Final Eos, Abs 11/02/2023 13:48:22 0.33 0.00-0.70 (K/uL) Final Basos, Abs 11/02/2023 13:48:22 0.08 0.00-0.20 (K/uL) Final Immature Granulocytes, Number 11/02/2023 13:48:22 0.02 0.00-0.20 (K/uL) Final Performing Location [facility] [place] [address] [facility] [address]
--- OUTSIDE RECORDS SUMMARY | 2023-12-12 09:19 | External Medical Summary ---
Author Name Unknown Address Unknown Organization K01:[facility] [place] [address] [place] [address] Laboratory Report Ordering Provider Test Date Status BARI CANDELARIO 11/02/2023 13:48:22 Final Warfarin Therapy
INR: 2 .0-3.0 conventional 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
INR: 2.5- 3.5 high intensity 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 Observation Date Value Abnormality Reference (Units ) Status PT 11/02/2023 13:48:22 33.1 Above high normal 11 .6-15.2 (seconds) Final INR 11/02/2023 13:48:22 3.2 Above high normal 0. 8-1.2 Final Performing Location [facility] [place] [address] [place] [address]
--- OUTSIDE RECORDS SUMMARY | 2023-12-12 09:19 | External Medical Summary ---
Author Name Unknown Address Unknown Organization [id number]:[facility] [place] [address] [place] [address] Laboratory Report Ordering Provider Test Date Status KIRAN ELLIOTT 11/02/2023 13:48:22 Final Exclude Heart Failure: <300 pg/mL
Diagnose Heart Failure:
Age <50 yr: >450 pg/mL
50-75 yr: >900 pg/mL
>75 yr: >1800 pg/mL
GFR is 30-59 mL/min: >1200 pg/mL or Age- adjusted values
GFR <30 mL/min: do not use, not reliable

Prognostic threshold: 1000 pg/mL Observation Date Value Abnormality Reference (Units ) Status BNP, Pro-hormone 11/02/2023 13:48:22 2590 Above high no rmal <300 (pg/mL) Final Performing Location [facility] [place] [address] [place] [address]
--- OUTSIDE RECORDS SUMMARY | 2023-12-12 09:19 | External Medical Summary ---
Author Name Unknown Address Unknown Organization K01[place] [place] [address] [place] [id number] Laboratory Report Ordering Provider Test Date Status KIRAN ELLIOTT 11/02/2023 13:48:22 Final Observation Date Value Abnormality Reference (Units ) Status Parathyrin.intact [Mass/volume] in Serum or Plasma 11/02/2023 13:48:22 95 Above high normal 15-65 (pg/mL) Final Performing Location [facility] [place] [address] [place] [id number]
--- OUTSIDE RECORDS SUMMARY | 2023-12-12 09:19 | External Medical Summary ---
Author Name Unknown Address Unknown Organization K01:[facility] - [address] [place] [id number] Laboratory Report Ordering Provider Test Date Status KIRAN ELLIOTT 11/02/2023 13:48:22 Final Observation Date Value Abnormality Reference (Units ) Status Magnesium 11/02/2023 13:48:22 2.7 Above high normal 1. 5-2.6 (mg/dL) Final Performing Location [facility] - [address] [place] [id number]
--- OUTSIDE RECORDS SUMMARY | 2023-12-12 09:19 | External Medical Summary | Summary of Care ---
Author Name Unknown Organization [facility] Address [address] [place] [address] Phone [phone] Care Team Providers Care Ambulance Driver Name Role Phone Yaya Frederick MD Primary Care Provider [phone] Reason for Visit * Reason Onset Date Comments Outpatient Testing 10/11/2023 Lab reminder Encounter Details Date Type Department Care Team (Late st Contact Info) Description 10/11/2023 Telephone Hematology/Oncology Treatment, [place] [address] [place] [address] Agustín Sullivan MD [address] [place] [address] Outpatient Testing (Lab reminder) Allergies Active Allergy Reactions Criticality Noted Date [...] as of this encounter (statuses as of 10/27/2023) Medications Medication Sig Dispensed Refills Start Date End Date Status BENADRYL 25 MG PO TABS 1 TABLET EVERY 4 TO 6 HOURS NEEDED 0 Active GRX ANALGESIC BALM EX OINT Apply topically to affected area. 0 07/01/2013 Active Azelastine HCl 0.15 % Nasal SolutionIndications: Post-nasal discharge Administer into nostril 1 [place] in the morning AND 1 [place] before bedtime. 30 mL 0 11/30/2021 Active Ipratropium [place] 0.03 % Nasal Solution Administer into each [...] Tablet (Crestor)Indications :NSTEMI (non-ST elevated myocardial infarction) ([facility]) Take 1 Tablet by mouth in the morning. 90 Tablet 3 05/18/2023 Active Nitroglycerin 0.4 MG Sublingual Tablet Sublingual (Nitrostat)Indicatio ns:NSTEMI (non-ST elevated myocardial infarction) ([facility] [...] 08/30/2023 Active Warfarin Sodium 2.5 MG Oral TabletIndications: ronic ischemic heart disease Up to one tablet daily as directed by the [facility] clinic 100 Tablet 3 08/31/2023 Active Isosorbide Mononitrate ER 60 MG Oral Tablet Extended Release 24 Hour (Imdur)Indications:H FrEF (heart failure with reduced ejection fraction) ([facility]) Take 1 Tablet by mouth in the morning. 90 Tablet 1 09/29/2023 Active Clopidogrel Bisulfate 75 MG Oral Tablet (pLAVix)Indications: HFrEF (heart failure with reduced ejection fraction) ([facility]) Take 1 Tablet by mouth in the morning. 90 Tablet 1 09/29/2023 Active Losartan Potassium 25 MG Oral Tablet (Cozaar) Take 0.5 Tablets by mouth in the morning. 45 Tablet 1 08/30/2023 10/26/19 24 Discontinu ed(Refill) Torsemide 20 MG Oral Tablet (Demadex) Take 1 Tablet by mouth in the morning. 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 # [id number] Dethistler Operator: Wilda Serrano MD [phone] Type 2 diabetes mellitus wit h hemoglobin [...] as of this encounter (statuses as of 10/27/2023) Immunizations Name Administration Dates Next Due COVID-19 [...] Upcoming Encounters Date Type Department Care Team ([facility] Contact Info) Description 11/06/2023 5:40 PM EST Anticoagulation Pharmacy [address] [phone] Pharmacist2, [facility] [address] [address] 11/20/2023 1:40 PM EST Office Visit Family Practice [address] [phone] Yaya Frederick MD [address] [place] [address] 12/01/2023 2:15 PM EST Office Visit Hematology/Oncology [facility] [place] [address] [place] [address] Agustín Sullivan MD [address] [place] [address] 12/27/2023 11:40 AM EST Office Visit Nephrology [address] [place] [address] Alfa Holcomb MD 200 [facility] [place] [address] 01/26/2024 10:40 AM EDT Office Visit Otolaryngology [address] [place] [address] Keely Tanner PA-C [address] [place] [address] 08/16/2024 11:00 AM EDT Cardiac Studies Cardiology, [facility] [address] [place] [address] [place] [address] [place] [address] Health Maintenance Due Date Last Done Comments Zoster Vaccines (1 of 2) 1954 Hepatitis B (1 of 3 - Risk 3-dose series) 1996 COVID-19 Vaccine ( season) 2023 09/29/2022, 09/13/2021, 01/05/2021, Additional history exists Depression Screening 02/09/2024 02/08/2023 CKD PHOS USE SMARTSET 25774 05/01/2024 07/, 11/04/2022, 02/14/2019 Albumin/Creatinine Ratio 06/15/2024 023, 05/01/2023, 07/04/2022, Additional history exists CKD HGB USE SMARTSET 02690 08/29/202408/29, 08/29/2023, 08/11/2023, Additional history exists DXA Scan 11/09/2024 11/09/2022, 01/21, 11/03/2015, Additional history exists DTaP,Tdap,and Td Vaccines (3 - Td or Tdap) 06/04/2029 06/04/2019, 01/28/2019, 05/26/2008 Pneumococcal Vaccine: 65+ Years Completed 05/24/2016, 11/14/2001 VITAMIN D LEVEL ONCE IN A LIFETIME-USE SMARTSET# [id number] Completed 05/01/2023, 11/04/2022, 02/14/2019, Additional history exists [...] documented as of this encounter Care Teams Ambulance Driver Relationship Specialty Start Date End Date Yaya Frederick MD [address] [place] [address] PCP - General Family Medicine 05/04/21 documented as of this encounter
--- OUTSIDE RECORDS SUMMARY | 2023-12-12 09:19 | External Medical Summary | Summary of Care ---
Author Name Unknown Organization [facility] Address [address] [place] [address] Phone [phone] Care Team Providers Care Inventory Taker Name Role Phone Yaya Frederick MD Primary Care Provider [phone] Reason for Visit * Reason Onset Date Comments Medication Question 10/26/2023 Encounter Details Date Type Department Care Team (Late st Contact Info) Description 10/26/2023 Telephone Nephrology, [place] [address] [facility] [place] [address] Alfa Holcomb MD [address] [place] [address] Medication Question Allergies Active Allergy Reactions Criticality Noted Date [...] 3 Active Azelastine HCl 0.15 % Nasal SolutionIndications: Post-nasal discharge Administer into nostril 1 [place] in the morning AND 1 [place] before bedtime. 30 mL 0 2 Active Ipratropium [place] 0.03 % Nasal Solution Administer into each nostril 2 Sprays 2 times a day as needed for Rhinitis. 30 mL 5 2 Active Metoprolol Succinate ER 100 MG [...] 3 Active Mometasone Furoate 50 MCG/ACT Nasal SuspensionIndication [...] (Crestor)Indications :NSTEMI (non-ST elevated myocardial infarction) ([facility]) Take 1 Tablet by mouth in the morning. 90 Tablet 3 3 Active Nitroglycerin 0.4 MG Sublingual Tablet Sublingual (Nitrostat)Indicatio ns:NSTEMI (non-ST elevated myocardial infarction) ([facility] [...] before bedtime. 60 Capsule 5 3 Active Additional Information Patient not taking.Reported on 10/25/2023 Senna 8.6 MG Oral Tablet Take 1 Tablet by mouth in the morning. 30 Tablet 5 3 Active Additional Information Patient not taking.Reported on 10/25/2023 Lactulose 10 GM/15ML Oral Solution (Constulose) Take 15 mL by mouth in the morning and 15 mL at noon and 15 mL before bedtime. 240 mL 0 3 Active Additional Information Patient not taking.Reported on 10/25/2023 Fexofenadine HCl 60 MG Oral Tablet (Lizzette) Take 1 Tablet by mouth daily as needed for Allergies. 90 Tablet 1 3 Active Warfarin Sodium 2.5 MG Oral TabletIndications:Ch ronic ischemic heart disease Up to one tablet daily as directed by the Anticoag clinic 100 Tablet 3 3 Active Additional Information Patient taking differently: 1.25 mg, Up to one tablet daily as directed by the Anticoag clinic, Reported on 10/25/2023 Isosorbide Mononitrate ER 60 MG Oral Tablet Extended Release 24 Hour (Imdur)Indications:H FrEF (heart failure with reduced ejection fraction) ([facility]) Take 1 Tablet by mouth in the morning. 90 Tablet 1 3 Active Clopidogrel Bisulfate 75 MG Oral Tablet (pLAVix)Indications: HFrEF (heart failure with reduced ejection fraction) ([facility]) Take 1 Tablet by mouth in the morning. 90 Tablet 1 3 Active Losartan Potassium 25 MG Oral Tablet (Cozaar)Indications: Hypertensive kidney disease with stage 3a chronic kidney disease (HCC),Bilateral leg edema Take 0.5 Tablets by mouth in the morning. 10/26/23-ON HOLD AT THIS TIME!. 0 4 Active Torsemide 40 MG Oral TabletIndications:Hy pertensive kidney disease with stage 3a chronic kidney disease (HCC),Bilateral leg edema Take 80 mg by mouth in the morning. 180 Tablet 3 4 Active Potassium Chloride [place] ER 20 MEQ Oral Tablet Extended ReleaseIndications:H ypertensive kidney disease with stage 3a chronic kidney disease (HCC),Bilateral leg edema Take 1 Tablet by mouth in the morning. 30 Tablet 5 4 Active Losartan Potassium 25 MG Oral Tablet (Cozaar) Take 0.5 Tablets by mouth in the morning. 45 Tablet 1 3 10/26/19 24 Discontinue d(Refill) Torsemide 20 MG Oral Tablet (Demadex) Take 1 Tablet by mouth in the morning. 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 # [id number] Plastic Fixture Builder: Wilda Serrano MD [phone] Type 2 diabetes mellitus wit h hemoglobin A1c goal of less than 7.0% 11/03/2006 08/15/2007 Overview: ICD-10 update of inactive term PURE HYPERCHOLESTEROLEM 11/03/200609/22 Overview: Per Lipid Taxonomy. 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 therapy 05/05/2006 01/23/2009 Overview: ICD-10 update of inactive term Anticoagulation management encounter 05/05/2006 10/03/2019 Unspecified viral infection, in conditions classified elsewhere and of unspecified site 06/08/2005 09/25/2007 Menopause 12/19/2001 12/27/2017 FEM STRESS INCONTINENCE 05/10/200111/23 documented as of this encounter (statuses as of 10/27/2023) Immunizations Name Administration Dates Next Due COVID-19 mRNA, LNP-s, No Pre serve, 2-Dose Series (Breathometer) 09/13/2021,01/05/2021,12/15/2020 Covid-19, Mrna, Lnp-s, Pf, B ivalent, 30 Mcg, IM, 12 yrs and above (Breathometer) 09/29/2022 H1N1 2009 Influenza, IM 10/08/2009 Pneumococcal [...] encounter Miscellaneous Notes * Telephone Encounter - Denise Garcia RN - 10/27/2023 1:09 PM EST Te with pt with update regarding conversation held between Nephrology and Cardiology and they are in agreement regarding meds. * Telephone Encounter - Denise Garcia RN - 10/26/2023 3:12 PM EST TE with pt regarding recommendations regarding medications. RX pended for signature. Aware to hold Losartan until next labs done. Med list updated and orders placed. * Telephone Encounter - Denise Garcia RN - 10/26/2023 3:04 PM EST ----- Message from Alfa Holcomb MD sent at 10/26/2023 2:46 PM EST ----- Regarding: Diuretics dose I have not heard back from cardiology yet. It is my recommendation Do continue torsemide 80 daily for now till told otherwise Repeat renal panel in about 10 days so can be done on November 06 with pharmacy appointment. Do make new prescription if she needs given we are increasing the dose She would also need some potassium 20 mEq daily Hold losartan till the next blood work Alfa Holcomb MD documented in this encounter Plan of Treatment Upcoming Encounters Date Type Department Care Team (Late st Contact Info) Description 11/06/2023 5:40 PM EST Anticoagulation Pharmacy [address] [place] [phone] Pharmacist2, [facility] [place] [place] [address] 11/20/2023 1:40 PM EST Office Visit Family Practice [address] [place] [phone] Yaya Frederick MD [address] [place] [address] 12/01/2023 2:15 PM EST Office Visit Hematology/Oncology [facility] [address] [facility] [place] [address] Agustín Sullvian MD [address] [facility] [place] [address] 12/27/2023 11:40 AM EST Office Visit Nephrology [address] [place] [phone] Alfa Holcomb MD [address] [place] [address] 01/26/2024 10:40 AM EDT Office Visit Otolaryngology [address] [place] [phone] Keely Tanner PA-C [address] [facility] [place] [address] 08/16/2024 11:00 AM EDT Cardiac Studies Cardiology, [facility] [place] [address] [facility] [place] [address] Scheduled Orders Name Type Priority Associated Diagnoses Orde r Schedule RENAL FUNCTION PANEL Lab Routine Hypertensive kidney disease with stage 3a chronic kidney disease (HCC) Bilateral leg edema Expected: 11/02/2023 (Approximate), Expires: 10/26/2024 Health Maintenance Due Date Last Done Comments Zoster Vaccines (1 of 2) 1954 Hepatitis B (1 of 3 - Risk 3-dose series) 1996 COVID-19 Vaccine ( season) 2023 09/29/2022, 09/13/2021, 01/05/2021, Additional history exists Depression Screening 02/09/2024 02/08/2023 CKD PHOS USE SMARTSET 09580 05/01/202404/22, 11/04/2022, 02/14/2019 Albumin/Creatinine Ratio 06/15/2024 023, 05/01/2023, 07/04/2022, Additional history exists CKD HGB USE SMARTSET 97930 08/29/202408/29, 08/29/2023, 08/11/2023, Additional history exists DXA Scan 11/09/2024 11/09/2022, 01/21, 11/03/2015, Additional history exists DTaP,Tdap,and Td Vaccines (3 - Td or Tdap) 06/04/2029 06/04/2019, 01/28/2019, 05/26/2008 Pneumococcal Vaccine: 65+ Years Completed 05/24/2016, 11/14/2001 VITAMIN D LEVEL ONCE IN A LIFETIME-USE SMARTSET# [id number] Completed 05/01/2023, 11/04/2022, 02/14/2019, Additional history exists [...] as of this encounter Visit Diagnoses Diagnosis Hypertensive kidney disease with stage 3a chronic kidney disease (HCC)- Primary Bilateral leg edema Edema documented in this encounter Additional Health Concerns Infection Onset Date Last Indicated Resolved Time Varicella zoster 08/01/2022 08/01/2022 documented as of this encounter Care Teams Inventory Taker Relationship Specialty Start Date End Date Yaya Frederick MD [address] [place] [phone] PCP - General Family Medicine 05/04/21 documented as of this encounter
--- OUTSIDE RECORDS SUMMARY | 2023-12-12 09:19 | External Medical Summary ---
Author Name Unknown Address Unknown Organization K01:[facility] [place] - [facility] [place] [address] Laboratory Report Ordering Provider Test Date Status KIRAN ELLIOTT 11/02/2023 13:48:22 Final Observation Date Value Abnormality Reference (Units ) Status BUN 11/02/2023 13:48:22 35 Above high normal 6-20 (mg/dL) Final Creatinine 11/02/2023 13:48:22 2.0 Above high normal 0.5-1.0 (mg/dL) Final Glomerular filtration rate/1.73 sq M.predicted [Volume Rate/Area] in Serum, Plasma or Blood by Creatinine-based formula (CKD-EPI) 11/02/2023 13:48:22 24 Below low normal >=60 (mL/min) Final eGFR is calculated based on the CKD-EPI 2020 equation SODIUM 11/02/2023 13:48:22 143 135-146 (m mol/L) Final Potassium 11/02/2023 13:48:22 3.3 Below low normal 3.5 -5.1 (mmol/L) Final Cl 11/02/2023 13:48:22 96 Below low normal 98- 107 (mmol/L) Final CO2 11/02/2023 13:48:22 36 Above high normal 22 -32 (mmol/L) Final Anion gap 11/02/2023 13:48:22 11 7-15 (mmol /L) Final Glucose 11/02/2023 13:48:22 139 Above high normal 70 -120 (mg/dL) Final Calcium 11/02/2023 13:48:22 9.3 8.4-10.2 ( mg/dL) Final Albumin 11/02/2023 13:48:22 4.0 3.8-5.0 (g /dL) Final Phosphate 11/02/2023 13:48:22 2.4 Below low normal 2.5 -4.8 (mg/dL) Final Performing Location LABORATORY C - [address] [place] [address]
--- OUTSIDE RECORDS SUMMARY | 2023-12-12 09:20 | External Medical Summary | Summary of Care ---
Author Name Unknown Organization [facility] Address [address] [place] [address] Phone [phone] Care Team Providers Care Watermaster Name Role Phone Yaya Frederick MD Primary Care Provider [phone] Reason for Visit * Reason Onset Date Comments Medication Question 10/26/2023 Encounter Details Date Type Department Care Team (Late st Contact Info) Description 10/26/2023 Telephone Nephrology, [place] [address] [facility] [place] [address] Alfa Holcomb MD [address] [place] [address] Medication Question Allergies Active Allergy Reactions Criticality [...] as of this encounter (statuses as of 10/26/2023) Medications Medication Sig Dispensed Refills Start Date End Date Status BENADRYL 25 MG PO TABS 1 TABLET EVERY 4 TO 6 HOURS NEEDED 0 Active GRX ANALGESIC BALM EX OINT Apply topically to affected area. 0 07/01/2013 Active Azelastine HCl 0.15 % Nasal SolutionIndications: Post-nasal discharge Administer into nostril 1 [place] in the morning AND 1 [place] before bedtime. 30 mL 0 11/30/2021 Active Ipratropium [place] 0.03 % Nasal Solution Administer into each [...] (Crestor)Indications :NSTEMI (non-ST elevated myocardial infarction) ([facility]) Take 1 Tablet by mouth in the morning. 90 Tablet 3 05/18/2023 Active Nitroglycerin 0.4 MG Sublingual Tablet Sublingual (Nitrostat)Indicatio ns:NSTEMI (non-ST elevated myocardial infarction) ([facility]) [...] 08/30/2023 Active Warfarin Sodium 2.5 MG Oral TabletIndications:Ch [...] (heart failure with reduced ejection fraction) ([facility]) Take 1 Tablet by mouth in the morning. 90 Tablet 1 09/29/2023 Active Clopidogrel Bisulfate 75 MG Oral Tablet (pLAVix)Indications: HFrEF (heart failure with reduced ejection fraction) ([facility]) Take 1 Tablet by mouth in the morning. 90 Tablet 1 09/29/2023 Active Clindamycin HCl 300 MG Oral CapsuleIndications:O ther dental procedure status Take 2 Capsules by mouth once for 1 dose one hour prior to dental procedure 2 Capsule 1 10/25/2023 10/26/19 24 Active Losartan Potassium 25 MG Oral Tablet (Cozaar)Indications: Hypertensive kidney disease with stage 3a chronic kidney disease (HCC),Bilateral leg edema Take 0.5 Tablets by mouth in the morning. 10/26/23-ON HOLD AT THIS TIME!. 0 10/26/2023 Active Torsemide 40 MG Oral TabletIndications:Hy pertensive [...] the morning. 30 Tablet 5 10/26/2023 Active Losartan Potassium 25 MG Oral Tablet (Cozaar) Take 0.5 Tablets by mouth in the morning. 45 Tablet 1 08/30/2023 10/26/19 24 Discontinu ed(Refill) Torsemide 20 MG Oral Tablet (Demadex) Take 1 Tablet by mouth in the morning. 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 # [id number] Chopper Gun Operator: Wilda Serrano MD [phone] Type 2 diabetes mellitus wit h hemoglobin A1c goal of less than 7.0% 11/03/2006 08/15/2007 Overview: ICD-10 update of inactive term PURE HYPERCHOLESTEROLEM 11/03/200609/22 Overview: Per Lipid Taxonomy. 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 05/05/2006 01/23/2009 Overview: ICD-10 update of inactive term Anticoagulation management encounter 05/05/2006 10/03/2019 Unspecified viral infection, in conditions classified elsewhere and of unspecified site 06/08/2005 09/25/2007 Menopause 12/19/2001 12/27/2017 FEM STRESS INCONTINENCE 05/10/200111/23 documented as of this encounter (statuses as of 10/26/2023) Immunizations Name Administration Dates Next Due COVID-19 mRNA, LNP-s, No Pre serve, 2-Dose Series (Document Agility) 09/13/2021,01/05/2021,12/15/2020 Covid-19, Mrna, Lnp-s, Pf, B ivalent, [...] Description 11/06/2023 5:40 PM EST Anticoagulation Pharmacy [address] [phone] Pharmacist2, [facility] [address] [address] 11/20/2023 1:40 PM EST Office Visit Family Practice [address] [phone] Yaya Frederick MD [address] [place] [address] 12/01/2023 2:15 PM EST Office Visit Hematology/Oncology [place] [address] [facility] [place] [address] Agustín Sullivan MD [address] [facility] [place] [address] 12/27/2023 11:40 AM EST Office Visit Nephrology [address] [place] [address] Alfa Holcomb MD [address] [facility] [place] [address] 01/26/2024 10:40 AM EDT Office Visit Otolaryngology [address] [place] [address] Keely Tanner PA-C [address] [place] [address] 08/16/2024 11:00 AM EDT Cardiac Studies Cardiology, [facility] [address] [facility] [place] [address] [place] [facility] [address] [facility] [place] [address] Scheduled Orders Name Type Priority Associated Diagnoses [...] Screening 02/09/2024 02/08/2023 CKD PHOS USE SMARTSET 54151 05/01/2024 07/, 11/04/2022, 02/14/2019 Albumin/Creatinine Ratio 06/15/2024 023, 05/01/2023, 07/04/2022, Additional history exists CKD HGB USE SMARTSET 88602 08/29/202408/29, 08/29/2023, 08/11/2023, Additional history exists DXA Scan 11/09/2024 11/09/2022, 01/21, 11/03/2015, Additional history exists DTaP,Tdap,and Td Vaccines (3 - Td or Tdap) 06/04/2029 06/04/2019, 01/28/2019, 05/26/2008 Pneumococcal Vaccine: 65+ Years Completed 05/24/2016, 11/14/2001 VITAMIN D LEVEL ONCE IN A LIFETIME-USE SMARTSET# [id number] Completed 05/01/2023, 11/04/2022, 02/14/2019, Additional history exists [...] documented as of this encounter Care Teams Watermaster Relationship Specialty Start Date End Date Yaya Frederick MD [address] [place] [address] PCP - General Family Medicine 05/04/21 documented as of this encounter
--- OUTSIDE RECORDS SUMMARY | 2023-12-12 09:20 | External Medical Summary | Summary of Care ---
Author Name Unknown Organization [facility] Address [address] [place] [address] Phone [phone] Care Team Providers Care Shipping Supervisor Name Role Phone Yaya Frederick MD Primary Care Provider [phone] Reason for Visit * Reason Onset Date Comments Med Request 10/24/2023 Encounter Details Date Type Department Care Team ([facility] st Contact Info) Description 10/24/2023 [facility]phone [facility] [address] [place] [address] Yaya Frederick MD [address] [place] [address] Med Request Allergies Active Allergy Reactions Criticality [...] as of this encounter (statuses as of 10/25/2023) Medications Medication Sig Dispensed Refills Start Date End Date Status BENADRYL 25 MG PO TABS 1 TABLET EVERY 4 TO 6 HOURS NEEDED 0 Active GRX ANALGESIC BALM EX OINT Apply topically to affected area. 0 07/01/2013 Active Azelastine HCl 0.15 % Nasal SolutionIndications:P ost-nasal discharge Administer into nostril 1 [place] in the morning AND 1 [place] before bedtime. 30 mL 0 11/30/2021 Active Ipratropium [place] 0.03 % Nasal Solution Administer into each [...] by the Anticoag clinic, Reported on 10/25/2023 Losartan Potassium 25 MG Oral Tablet (Cozaar) Take 0.5 Tablets by mouth in the morning. 45 Tablet 1 08/30/2023 Active Isosorbide Mononitrate ER [...] morning. 90 Tablet 1 09/29/2023 Active Torsemide 20 MG Oral Tablet (Demadex) Take 1 Tablet by mouth in the morning. 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 05/05/2006 01/23/2009 Overview: ICD-10 update of inactive term Anticoagulation management encounter 05/05/2006 10/03/2019 Unspecified viral infection, in conditions classified elsewhere and of unspecified site 06/08/2005 09/25/2007 Menopause 12/19/2001 12/27/2017 FEM STRESS INCONTINENCE 05/10/200111/23 documented as of this encounter (statuses as of 10/25/2023) Immunizations Name Administration Dates Next Due COVID-19 mRNA, LNP-s, No Pre serve, 2-Dose Series ([employer] [place]) 09/13/2021,01/05/2021,12/15/2020 Covid-19, Mrna, Lnp-s, Pf, B ivalent, [...] Miscellaneous Notes * Telephone Encounter - [place]ia Rodrigues LPN - 10/25/2023 12:20 PM EST Patient is aware and verbalizes understanding. * Telephone Encounter - Sandra Cavazos LPN - 10/25/2023 11:53 AM EST Patient was going to stop at our pharmacy here in our building after an appt . * Telephone Encounter - Janie Goss LPN - 10/25/2023 11:40 AM EST LMOM for pt to return call * Telephone Encounter - Josh Block DO - 10/25/2023 11:29 AM EST Reviewed patient's chart. Has used clindamycin for dental prophylaxis in the past. 600 mg taken once 1 hour prior to dental work. Medication sent to [facility] * Telephone Encounter - Sandra Cavazos LPN - 10/25/2023 10:22 AM EST Patient has a dentist appt on Monday. Patient is in town and would like Rx sent in soon so she doesn't have to make another trip to town. Thanks. * Telephone Encounter - Latha Ordonez CPhT - 10/24/2023 3:43 PM EST Patient requesting refills for clindamycin 300 mg. Upon chart review, medication is listed as as of 11/16/21 . Please advise if you wish to continue this therapy for the patient. Patient is requesting high priority for dentist appointment Thank you, Latha Ordonez CPhT Forensic Artist II Centralized Clinical Pharmacy Services ( Formerly Telepharmacy) 10/24/2023,3:44 PM documented in this encounter Plan of Treatment Upcoming Encounters Date Type Department Care Team ([facility] Contact Info) Description 11/06/2023 5:40 PM EST Anticoagulation Pharmacy [address] [phone] Pharmacist2, [facility] [address] [address] 11/20/2023 1:40 PM EST Office Visit Family Practice [address] [phone] Yaya Frederick MD [address] [place] [address] 12/01/2023 2:15 PM EST Office Visit Hematology/Oncology [facility] [address] [facility] [place] [address] Agustín Sullivan MD [address] [facility] [place] [address] 12/27/2023 11:40 AM EST Office Visit Nephrology [address] [place] [phone] Alfa Holcomb MD 200 [facility] [place] [address] 01/26/2024 10:40 AM EDT Office Visit Otolaryngology [address] [place] [phone] Keely Tanner PA-C [address] [place] [address] 08/16/2024 11:00 AM EDT Cardiac Studies Cardiology, [facility] [address] [place] [address] [facility] [address] [place] [address] Health Maintenance Due Date Last Done Comments Zoster Vaccines (1 of 2) 1954 Hepatitis B (1 of 3 - Risk 3-dose series) 1996 COVID-19 Vaccine ( season) 2023 09/29/2022, 09/13/2021, 01/05/2021, Additional history exists Depression Screening 02/09/2024 02/08/2023 CKD PHOS USE SMARTSET 85616 05/01/202404/22, 11/04/2022, 02/14/2019 Albumin/Creatinine Ratio 06/15/2024 023, 05/01/2023, 07/04/2022, Additional history exists CKD HGB USE SMARTSET 80128 08/29/202408/29, 08/29/2023, 08/11/2023, Additional history exists DXA Scan 11/09/2024 11/09/2022, 01/21, 11/03/2015, Additional history exists DTaP,Tdap,and Td Vaccines (3 - Td or Tdap) 06/04/2029 06/04/2019, 01/28/2019, 05/26/2008 Pneumococcal Vaccine: 65+ Years Completed 05/24/2016, 11/14/2001 VITAMIN D LEVEL ONCE IN A LIFETIME-USE SMARTSET# [id number] Completed 05/01/2023, 11/04/2022, 02/14/2019, Additional history exists [...] as of this encounter Visit Diagnoses Diagnosis Other dental procedure status- Primary documented in this encounter Additional Health Concerns Infection Onset Date Last Indicated Resolved Time Varicella zoster 08/01/2022 08/01/2022 documented as of this encounter Care Teams Shipping Supervisor Relationship Specialty Start Date End Date Yaya Frederick MD [address] [place] [address] PCP - General Family Medicine 05/04/21 documented as of this encounter
--- OUTSIDE RECORDS SUMMARY | 2023-12-12 09:20 | External Medical Summary | Summary of Care ---
Author Name Unknown Organization [facility] Address [address] [place] [address] Phone [phone] Care Team Providers Care Limousine Driver Name Role Phone Yaya Frederick MD Primary Care Provider [phone] Reason for Visit * Reason Onset Date Comments Outpatient Testing 10/11/2023 Lab reminder Encounter Details Date Type Department Care Team (Late st Contact Info) Description 10/11/2023 Telephone Hematology/Oncology Treatment, [place] [address] [place] [address] Agustín Sullivan MD [address] [place] [address] Outpatient Testing (Lab reminder) Allergies Active Allergy [...] as of this encounter (statuses as of 10/11/2023) Medications Medication Sig Dispensed Refills Start Date End Date Status BENADRYL 25 MG PO TABS 1 TABLET EVERY 4 TO 6 HOURS NEEDED 0 Active GRX ANALGESIC BALM EX OINT Apply topically to affected area. 0 07/01/2013 Active Azelastine HCl 0.15 % Nasal SolutionIndications:P ost-nasal discharge Administer into nostril 1 [place] in the morning AND 1 [place] before bedtime. 30 mL 0 11/30/2021 Active Ipratropium [place] 0.03 % Nasal Solution Administer into each [...] (Crestor)Indications: NSTEMI (non-ST elevated myocardial infarction) ([facility]) Take 1 Tablet by mouth in the morning. 90 Tablet 3 05/18/2023 Active Nitroglycerin 0.4 MG Sublingual Tablet Sublingual (Nitrostat)Indication s:NSTEMI (non-ST elevated myocardial infarction) ([facility]) Place 1 Tablet under the tongue as [...] Anticoag clinic 100 Tablet 3 08/31/2023 Active Losartan [...] with reduced ejection fraction) ([facility]) Take 1 Tablet by mouth in the morning. 90 Tablet 1 09/29/2023 Active Torsemide 20 MG Oral Tablet (Demadex) Take 1 Tablet by mouth in the morning. 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 # [id number] Gas Welding Machine Operator: Wilda Serrano MD [phone] Type 2 diabetes mellitus wit h hemoglobin [...] as of this encounter (statuses as of 10/11/2023) Immunizations Name Administration Dates Next Due COVID-19 [...] Care Team (Late st Contact Info) Description 10/25/2023 10:40 AM EST Office Visit Nephrology [address] [place] [phone] Alfa Holcomb MD [address] [place] [address] 11/06/2023 5:40 PM EST Anticoagulation Pharmacy [address] [phone] Pharmacist2, [facility] [address] [address] 11/20/2023 1:40 PM EST Office Visit Family Practice [address] [phone] Yaya Frederick MD [address] [place] [address] 12/01/2023 2:15 PM EST Office Visit Hematology/Oncology [facility] 200 [facility] [place], [place] [address] Agustín Sullivan MD 200 [facility] [place] [address] 01/26/2024 10:40 AM EDT Office Visit Otolaryngology [address] [place] [address] Keely Tanner PA-C [address] [facility] [place] [address] 08/16/2024 11:00 AM EDT Cardiac Studies Cardiology, [facility] [address] [place] [address] [facility] [address] [place] [address] Health Maintenance Due Date Last Done Comments Zoster Vaccines (1 of 2) 1954 Hepatitis B (1 of 3 - Risk 3-dose series) 1996 COVID-19 Vaccine ( season) 2023 09/29/2022, 09/13/2021, 01/05/2021, Additional history exists Depression Screening 02/09/2024 02/08/2023 CKD PHOS USE SMARTSET 13922 05/01/202404/22, 11/04/2022, 02/14/2019 Albumin/Creatinine Ratio 06/15/2024 023, 05/01/2023, 07/04/2022, Additional history exists CKD HGB USE SMARTSET 11957 08/29/202408/29, 08/29/2023, 08/11/2023, Additional history exists DXA Scan 11/09/2024 11/09/2022, 01/21, 11/03/2015, Additional history exists DTaP,Tdap,and Td Vaccines (3 - Td or Tdap) 06/04/2029 06/04/2019, 01/28/2019, 05/26/2008 Pneumococcal Vaccine: 65+ Years Completed 05/24/2016, 11/14/2001 VITAMIN D LEVEL ONCE IN A LIFETIME-USE SMARTSET# [id number] Completed 05/01/2023, 11/04/2022, 02/14/2019, Additional history exists [...] documented as of this encounter Care Teams Limousine Driver Relationship Specialty Start Date End Date Yaya Frederick MD [address] [place] [address] PCP - General Family Medicine 05/04/21 documented as of this encounter
--- OUTSIDE RECORDS SUMMARY | 2023-12-12 09:20 | External Medical Summary | Summary of Care ---
Author Name Unknown Organization [facility] Address [address] [place] [address] Phone [phone] Care Team Providers Care Puller Machine Name Role Phone Yaya Frederick MD Primary Care Provider [phone] Reason for Visit * Reason Onset Date Comments Med Request 10/24/2023 Encounter Details Date Type Department Care Team ([facility] st Contact Info) Description 10/24/2023 Telephone [facility] [address] [place] [address] Yaya Frederick MD [address] [place] [address] Med Request Allergies Active Allergy Reactions [...] SolutionIndications:P ost-nasal discharge Administer into nostril 1 [place] in the morning AND 1 [place] before bedtime. 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 [facility] * Telephone Encounter - Sandra Cavazos LPN - 10/25/2023 10:22 AM EST Patient has a dentist appt on Monday. Patient is in town and would like Rx sent in soon so she doesn't have to make another [facility]. Thanks. * Telephone Encounter - Latha Ordonez CPhT - 10/24/2023 3:43 PM EST Patient requesting refills for clindamycin 300 mg. Upon chart review, medication is listed as as of 11/16/21 . Please advise if you wish to continue this therapy for the patient. Patient is requesting high priority for dentist appointment Thank you, Latha Ordonez CPhT Consulting Engineer II Centralized Clinical Pharmacy Services ( Formerly Telepharmacy) 10/24/2023,3:44 PM documented in this encounter Plan of Treatment Upcoming Encounters Date Type Department Care Team ([facility] st Contact Info) Description 11/06/2023 5:40 PM EST Anticoagulation Pharmacy [address] [phone] Pharmacist2, [facility] [address] [address] 11/20/2023 1:40 PM EST Office Visit Family Practice [facility] [address] [place] [address] Yaya Frederick MD [address] [place] [address] 12/01/2023 2:15 PM EST Office Visit Hematology/Oncology [facility] [address] [facility] [place] [address] Agustín Sullivan MD [address] [facility] [place] [address] 12/27/2023 11:40 AM EST Office Visit Nephrology [address] [place] [address] Alfa Holcomb MD [address] [facility] [place] [address] 01/26/2024 10:40 AM EDT Office Visit Otolaryngology [address] [place] [address] Keely Tanner PA-C [facility] [address] 08/16/2024 11:00 AM EDT Cardiac Studies Cardiology, [facility] [place] [address] [facility] [address] [facility] [address] Health Maintenance Due Date Last Done Comments Zoster Vaccines (1 of 2) 1954 Hepatitis B (1 of 3 - Risk 3-dose series) 1996 COVID-19 Vaccine ( season) 2023 09/29/2022, 09/13/2021, 01/05/2021, Additional history exists Depression Screening 02/09/2024 02/08/2023 CKD PHOS USE SMARTSET 00944 05/01/202404/22, 11/04/2022, 02/14/2019 Albumin/Creatinine Ratio 06/15/2024 023, 05/01/2023, 07/04/2022, Additional history exists CKD HGB USE SMARTSET 62720 08/29/202408/29, 08/29/2023, 08/11/2023, Additional history exists DXA Scan 11/09/2024 11/09/2022, 01/21, 11/03/2015, Additional history exists DTaP,Tdap,and Td Vaccines (3 - Td or Tdap) 06/04/2029 06/04/2019, 01/28/2019, 05/26/2008 Pneumococcal Vaccine: 65+ Years Completed 05/24/2016, 11/14/2001 VITAMIN D LEVEL ONCE IN A LIFETIME-USE SMARTSET# [id number] Completed 05/01/2023, 11/04/2022, 02/14/2019, Additional history exists [...] documented as of this encounter Care Teams Puller Machine Relationship Specialty Start Date End Date Yaya Frederick MD [address] [place] [address] PCP - General Family Medicine 05/04/21 documented as of this encounter
--- OUTSIDE RECORDS SUMMARY | 2023-12-12 09:20 | External Medical Summary | Summary of Care ---
Author Name Unknown Organization [facility] Address [address] [place] [address] Phone [phone] Care Team Providers Care Roustabout Name Role Phone Yaya Frederick MD Primary Care Provider [phone] Reason for Visit * Reason Onset Date Comments Medication Question 10/13/2023 Encounter Details Date Type Department Care Team ([facility] st Contact Info) Description 10/13/[address] [phone] Pharmacist2, [facility] [address] [address] Medication Question Allergies Active Allergy Reactions Criticality [...] as of this encounter (statuses as of 10/13/2023) Medications Medication Sig Dispensed Refills Start Date End Date Status BENADRYL 25 MG PO TABS 1 TABLET EVERY 4 TO 6 HOURS NEEDED 0 Active GRX ANALGESIC BALM EX OINT Apply topically to affected area. 0 07/01/2013 Active Azelastine HCl 0.15 % Nasal SolutionIndications:P ost-nasal discharge Administer into nostril 1 [place] in the morning AND 1 [place] before bedtime. 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 05/05/2006 01/23/2009 Overview: ICD-10 update of inactive term Anticoagulation management encounter 05/05/2006 10/03/2019 Unspecified viral infection, in conditions classified elsewhere and of unspecified site 06/08/2005 09/25/2007 Menopause 12/19/2001 12/27/2017 FEM STRESS INCONTINENCE 05/10/200111/23 documented as of this encounter (statuses as of 10/13/2023) Immunizations Name Administration Dates Next Due COVID-19 [...] encounter Miscellaneous Notes * Telephone Encounter - Raquel Alcantara RPh - 10/13/2023 12:02 PM EST Returned call to patient, inquired about warfarin and Plavix use together. Discussed with patient that these medications work differently and she is on the Plavix due to recent NSTEMI from May. Patient aware that she should monitor for s/sx of bleeding as usual, otherwise, denies any questions or concerns. Raquel Alcantara Clinical Pharmacist 10/13/2023, 12:03 PM * Telephone Encounter - Kayla Perez data governance analyst - 10/13/2023 9:57 AM EST Caller's name: woodrow Christiano call back number(OFFICE NUMBER FOR ): [phone] Reason for call: pt wants to discuss medications, warfarin and plavix. Thank you, Kayla Perez Airplane Pilot Helper Centralized [facility] Services ([facility]) (Formerly Telepharmacy) 10/13/2023,9:58 AM documented in this encounter Plan of Treatment Upcoming Encounters Date Type Department Care Team (Late st Contact Info) Description 10/25/2023 10:40 AM EST Office Visit Nephrology [address] [place] [address] Alfa Holcomb MD 200 [facility] [place] [address] 11/06/2023 5:40 PM EST Anticoagulation Pharmacy [address] [phone] Pharmacist2, [facility] [address] [address] 11/20/2023 1:40 PM EST Office Visit Family Practice [facility] [address] [place] [phone] Yaya Frederick MD [address] [place] [address] 12/01/2023 2:15 PM EST Office Visit Hematology/Oncology [facility] [address] [facility] [place] [address] Agustín Sullivan MD 200 [facility] [place] [address] 01/26/2024 10:40 AM EDT Office Visit Otolaryngology [address] [place] [address] Keely Tanner PA-C [address] [place] [address] 08/16/2024 11:00 AM EDT Cardiac Studies Cardiology, [facility] [address] [place] [address] [facility] [place] [facility] [address] [place] [address] Health Maintenance Due Date Last Done Comments Zoster Vaccines (1 of 2) 1954 Hepatitis B (1 of 3 - Risk 3-dose series) 1996 COVID-19 Vaccine ( season) 2023 09/29/2022, 09/13/2021, 01/05/2021, Additional history exists Depression Screening 02/09/2024 02/08/2023 CKD PHOS USE SMARTSET 91313 05/01/202404/22, 11/04/2022, 02/14/2019 Albumin/Creatinine Ratio 06/15/2024 023, 05/01/2023, 07/04/2022, Additional history exists CKD HGB USE SMARTSET 85729 08/29/202408/29, 08/29/2023, 08/11/2023, Additional history exists DXA Scan 11/09/2024 11/09/2022, 01/21, 11/03/2015, Additional history exists DTaP,Tdap,and Td Vaccines (3 - Td or Tdap) 06/04/2029 06/04/2019, 01/28/2019, 05/26/2008 Pneumococcal Vaccine: 65+ Years Completed 05/24/2016, 11/14/2001 VITAMIN D LEVEL ONCE IN A LIFETIME-USE SMARTSET# 13917 Completed 05/01/2023, 11/04/2022, 02/14/2019, Additional history exists [...] documented as of this encounter Care Teams Roustabout Relationship Specialty Start Date End Date Yaya Frederick MD [address] [place] [address] [place] [phone] PCP - General Family Medicine 05/04/21 documented as of this encounter
--- OUTSIDE RECORDS SUMMARY | 2023-12-12 09:20 | External Medical Summary | Summary of Care ---
Author Name Unknown Organization [facility] Address [address] [place] [address] Phone [phone] Care Team Providers Care Hospital Receptionist Name Role Phone Yaya Frederick MD Primary Care Provider [phone] Reason for Visit * Reason Comments Chronic Kidney Disease (CKD) New patient for Dr Holcomb Last seen in [place] Encounter Details Date Type Department Care Team (Late st Contact Info) Description 10/25/2023 10:40 AM EST Office Visit Nephrology [address] [place] [address] Alfa Holcomb MD [address] [place], [place] [address] Kidney disease, chronic, stage IV (GFR 15-29 ml/min) ([facility])*; HFrEF (heart failure with reduced ejection fraction) ([facility]); Kidney disease with fluid retention Allergies Active Allergy Reactions Criticality Noted Date [...] SolutionIndications:P ost-nasal discharge Administer into nostril 1 [place] in the morning AND 1 [place] before bedtime. 30 mL 0 11/30/2021 Active Ipratropium [place] 0.03 % Nasal Solution Administer into each [...] Tablet (Crestor)Indications: NSTEMI (non-ST elevated myocardial infarction) ([facility]) Take 1 Tablet by mouth in the morning. 90 Tablet 3 05/18/2023 Active Nitroglycerin 0.4 MG Sublingual Tablet Sublingual (Nitrostat)Indication s:NSTEMI (non-ST elevated myocardial infarction) ([facility]) Place 1 Tablet under the [...] rEF (heart failure with reduced ejection fraction) ([facility]) Take 1 Tablet by mouth in the morning. 90 Tablet 1 09/29/2023 Active Clopidogrel Bisulfate 75 MG Oral Tablet (pLAVix)Indications:H FrEF (heart failure with reduced ejection fraction) ([facility]) Take 1 Tablet by mouth [...] Stent Restenosis in Drug-Eluting Stents Project # [id number] Reporter: Wilda Serrano MD [phone] GENOMICS CARDIO RESEARCH OTHER*[id number] 01/09/2007 11/29/2016 Overview: Renamed Per Clinical Trials Billing Project. 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 # [id number] Reporter: Wilda Serrano MD [phone] Type 2 diabetes mellitus wit h hemoglobin [...] mRNA, LNP-s, No Pre serve, 2-Dose Series ([employer]ouched[employer]) 09/13/2021,01/05/2021,12/15/2020 Covid-19, Mrna, Lnp-s, Pf, B ivalent, [...] 2:05 PM EDT Sexual Orientation Straight 08/03/2020 2 :05 PM EDT Job Start Date Occupation Industry Not on file Not on file Not on file documented as of this encounter Last Filed Vital Signs Vital Sign Reading Time Taken Comments Blood Pressure 110/78 10/25/2023 10:39 AM EST Pulse 72 10/25/2023 10:39 AM EST Temperature 36.7 C (98.1 F) 10/25/2023 10:[address] Respiratory Rate 22 10/25/2023 10:39 AM EST Oxygen Saturation 100% 10/25/2023 10:39 AM EST on 3l nc Inhaled Oxygen Concentration - - Weight 81.7 kg (180 lb 3.2 oz) 10/25/2023 10:39 AM EST Height 150 cm (4' 11.06") 10/25/2023 10:39 AM ES T Body Mass Index 36.33 10/25/2023 10:39 AM EST documented in this encounter Progress Notes * Alfa Holcomb MD - 10/25/2023 10:47 AM EST New patient for me History of Present Illness: Ms. Cruz is a 88 year old female with below mentioned past medical history comes to the nephrology clinic to establish care. I reviewed the medical records in [facility] . History was obtained from the patient and her son. Status of chronic issues Hyperlipidemia currently on Crestor CHF, coronary artery disease, currently on torsemide, Imdur . Aldactone, losartan held History of chronic Afib currently on warfarin Thrombocytopenia on hydroxyurea Sinus node dysfunction, status post dual chamber pacemaker Status post AVR, CABG in 2005. LVEF 40% Recurrent urinary tract infections, followed up by Urology. Prior cystoscopy in 2020 suggestive of moderate cystitis, rectocele Restless leg syndrome not currently on meds ( previously tried lyrica) Patient has had fluctuating kidney function. Multiple admissions in the last 6 months for CHF. Gets iv lasix and gets better. But after discharge starts retaining fluid again. Currently on demadex 20 daily with extra 20 for 2 days a week. But has lot of edema and she feels bloated. Wt is also up a bit despite poor appetite. Restarted losartan 12.5 few weeks back. No NSAID use Patient denies any gross [...] compatible patecmaker insertion intraoperative fluoroscopic guidance [facility]04/08[facility]14 KNEE ARTHROSCOPY/ARTHROPLASTY 09/2010 dr salcedo LIGATE/CUT OVIDUCT(S) 1963 OTHER 12/27 RCA drug eluting stent REPLACEMENT AORTIC VALVE, BYPASS WITH PROSTHETIC VALVE 04/27 [place] Bovine AVR TOTAL ABD HYSTERECTOMY W/WO REMOVAL OF TUBE(S) 11/24 JADE/BSO Current Outpatient Medications Medication Sig Dispense Refill BENADRYL 25 MG PO TABS 1 TABLET EVERY 4 TO 6 HOURS NEEDED GRX ANALGESIC BALM EX OINT Apply topically to affected area. Azelastine HCl 0.15 % Nasal Solution Administer into nostril 1 [place] in the morning AND 1 [place] before bedtime. 30 mL 0 Ipratropium [place] 0.03 % Nasal Solution Administer into each [...] as needed for Allergies. 90 Tablet 1 Warfarin Sodium 2.5 MG Oral Tablet Up to one tablet daily as directed by the Anticoag clinic (Patient taking differently: 0.5 Tablets. Up to one tablet daily as directed by the Anticoag clinic) 100 Tablet 3 Losartan Potassium 25 MG Oral Tablet (Cozaar) Take 0.5 Tablets by mouth in the morning. 45 Tablet 1 Isosorbide Mononitrate ER 60 MG Oral Tablet Extended Release 24 Hour (Imdur) Take 1 Tablet by mouthin the morning. 90 Tablet 1 Clopidogrel Bisulfate 75 MG Oral Tablet (pLAVix) Take 1 Tablet by mouth in the morning. 90 Tablet 1 Torsemide 20 MG Oral Tablet (Demadex) Take 1 Tablet by mouth in the morning. 30 Tablet 3 No current facility-administered medications for this [...] the interval history PHYSICAL EXAMINATION: Filed Vitals: 10/25/23 1039 BP: 110/78 Pulse: 72 Resp: 22 Temp: 36.7 C (98.1 F) TempSrc: Tympanic SpO2: 100% Weight: 81.7 kg (180 lb 3.2 oz) Height: 1.5 m (4' 11.06") General: No acute distress, on 2 liter NC Eye: Anicteric sclera Neck: Supple Respiratory: Lungs are clear to auscultation Cardiovascular: Paced rhythm + Extremities: + edema b/l 2+ Gastrointestinal: Soft, Non-tender Musculoskeletal: Normal range of motion Integumentary: Warm, Dry, [place] Neurologic: Alert & Oriented Psychiatric: Cooperative, Non-suicidal LABS: Reviewed Recent Labs Units 08/29/23 1238 08/17/23 1119 07/21/23 0924 07/07/23 1102 SODIUM - [facility] mmol/L 144 141 143 142 POTASSIUM - [facility] mmol/L 3.8 3.9 3.4* 3.7 CHLORIDE - [facility] mmol/L 98 95* 98 95* CO2 - [facility] mmol/L 34* 34* 34* 33* BUN - [facility] mg/dL 41* 36* 41* 36* CREATININE - [facility] mg/dL 1.9* 1.8* 1.7* 1.5* Recent Labs Units 08/29/23 1238 08/11/23 1223 07/21/23 0924 WBC AUTO - [facility] K/uL 6.71 7.97 6.22 HGB - [facility] g/dL 10.8* 11.2* 11.6* PLATELET AUTO - [facility] K/uL 259 240 265 Recent Labs Units 08/29/23 1238 08/17/23 1119 07/21/23 0924 07/07/23 1102 05/15/23 1559 05/01/23 1338 03/22/23 0904 11/04/22 0945 CALCIUM - [facility] mg/dL 9.7 9.6 9.6 9.9 < > 9.7 < > 9.7 PHOSPHORUS - [facility] mg/dL -- -- -- -- -- 2.8 -- 3.0 25-HYDROXY VITAMIN D - [facility] ng/mL -- -- -- -- -- 69 -- 70 < > = values in this interval not displayed. No results for input(s): "HGBA1C" in the last 40577 hours. No results for input(s): "MICROALBUMIN", "PROCRRATIO" in the last 82149 hours. PERTINENT IMAGING INFO: I independently visualized [...] cyst. 2. 0.6 cm left renal calculus. BP Readings from Last 3 Encounters: 10/25/23 110/78 10/02/23 122/74 09/27/23 120/74 Wt Readings from Last 3 Encounters: 10/25/23 81.7 kg (180 lb 3.2 oz) 10/02/23 78.9 kg (174 lb) 09/27/23 80.4 kg (177 lb 3.2 oz) Kidney disease, chronic, stage IV (GFR 15-29 ml/min) ([facility]) (Primary) Worsening CKD and now would classify her as CKD 4. Cause is age, cardiac issues, incomplete recovery from RADHA, HTN. She will not be a candidate for VETERINARY EPIDEMIOLOGIST if such need ever arise---age and her cardiac status Would accept a higher creat from higher dose of Diuretics if we can break the cycle of recurrent admissions for CHF. - CBC WITH WBC DIFFERENTIAL; Future; Expected date: 10/25/2023 - PTH; Future; Expected date: 10/25/2023 - PROTEIN/ CREATININE RATIO, URINE; Future; Expected date: 10/25/2023 - RENAL FUNCTION PANEL; Future; Expected date: 10/25/2023 - URINALYSIS WITH MICROSCOPIC EXAM; Future; Expected date: 10/25/2023 - 25-HYDROXY VITAMIN D; Future; Expected date: 10/25/2023 - MAGNESIUM; Future; Expected date: 10/25/2023 HFrEF (heart failure with reduced ejection fraction) ([facility]) - BNP, NT-PRO; Future; Expected date: 10/25/2023 Kidney disease with fluid retention She has combined CKD 4 and heart issues and would need a lot higher dose of torsemide. Would suggest 80 daily. Take her off Losartan for now but eventually restart ( not critical). Goal is to avoid hospital admission. She is losing lean wt with poor appetite so cannot rely on theDTP plan based on weight only. Follow Up: Return in about 3 months (around 01/24/2024) for Clinic Visit. | For: Clinic Visit I spent a total of Greater than 55 mins (exact time 56 mins) on the date of service in preparation,delivery, and documentation of the care provided to Shannon Cruz excluding any time spent in the performance of separately billed services. Alfa Holcomb MD documented in this encounter Nursing Notes * Svetlana Shirley LPN - 10/25/2023 10:37 AM EST Patient identified by verbal name and date of . Return patient New to Dr Holcomb Previously seen in [place] for CKD Stage 3 No recent labs documented in this encounter Plan of Treatment Upcoming Encounters Date Type Department Care Team (Late st Contact Info) Description 11/06/2023 5:40 PM EST Anticoagulation Pharmacy [address] [phone] Pharmacist2, [facility] [address] [address] 11/20/2023 1:40 PM EST Office Visit Family Practice [address] [phone] Yaya Frederick MD [address] [place] [address] 12/01/2023 2:15 PM EST Office Visit Hematology/Oncology [address] [place] [address] [facility] [place] [address] Agustín Sullivan MD [address] [facility] [place] [address] 12/27/2023 11:40 AM EST Office Visit Nephrology [facility] [address] [facility] [address] [place] [address] Alfa Holcomb MD [address] [place] [address] 01/26/2024 10:40 AM EDT Office Visit Otolaryngology [facility] [address] [place] [phone] Keely Tanner PA-C [address] [place] [address] 08/16/2024 11:00 AM EDT Cardiac Studies Cardiology, [facility] [address] [facility] [place] [address] [place] [address] [facility] [address] [place] [address] Scheduled Orders Name Type Priority Associated Diagnoses Orde r Schedule CBC WITH WBC DIFFERENTIAL Lab Routine Kidney disease, chronic, stage IV (GFR 15-29 ml/min) ([facility]) Expected: 10/25/2023 (Approximate), Expires: 04/22/2024 PTH Lab Routine Kidney disease, chronic, stage IV (GFR 15-29 ml/min) ([facility]) Expected: 10/25/2023 (Approximate), Expires: 04/22/2024 PROTEIN/ CREATININE RATIO, URINE Lab Routine Kidney disease, chronic, stage IV (GFR 15-29 ml/min) ([facility]) Expected: 10/25/2023 (Approximate), Expires: 04/22/2024 RENAL FUNCTION PANEL Lab Routine Kidney disease, chronic, stage IV (GFR 15-29 ml/min) ([facility]) Expected: 10/25/2023 (Approximate), Expires: 04/22/2024 URINALYSIS WITH MICROSCOPIC EXAM Lab Routine Kidney disease, chronic, stage IV (GFR 15-29 ml/min) ([facility]) Expected: 10/25/2023 (Approximate), Expires: 04/22/2024 25-HYDROXY VITAMIN D Lab Routine Kidney disease, chronic, stage IV (GFR 15-29 ml/min) ([facility]) Expected: 10/25/2023 (Approximate), Expires: 04/22/2024 MAGNESIUM Lab Routine Kidney disease, chronic, stage IV (GFR 15-29 ml/min) ([facility]) Expected: 10/25/2023 (Approximate), Expires: 04/22/2024 BNP, NT-PRO Lab Routine HFrEF (heart failure with reduced ejection fraction) ([facility]) Expected: 10/25/2023 (Approximate), Expires: 04/22/2024 Health Maintenance Due Date Last Done Comments Zoster Vaccines (1 of 2) 1954 Hepatitis B (1 of 3 - Risk 3-dose series) 1996 COVID-19 Vaccine ( season) 2023 09/29/2022, 09/13/2021, 01/05/2021, Additional history exists Depression Screening 02/09/2024 02/08/2023 CKD PHOS USE SMARTSET 23019 05/01/202404/22, 11/04/2022, 02/14/2019 Albumin/Creatinine Ratio 06/15/2024 023, 05/01/2023, 07/04/2022, Additional history exists CKD HGB USE SMARTSET 24820 08/29/202408/29, 08/29/2023, 08/11/2023, Additional history exists DXA Scan 11/09/2024 11/09/2022, 01/21, 11/03/2015, Additional history exists DTaP,Tdap,and Td Vaccines (3 - Td or Tdap) 06/04/2029 06/04/2019, 01/28/2019, 05/26/2008 Pneumococcal Vaccine: 65+ Years Completed 05/24/2016, 11/14/2001 VITAMIN D LEVEL ONCE IN A LIFETIME-USE SMARTSET# [id number] Completed 05/01/2023, 11/04/2022, 02/14/2019, Additional history exists [...] disease, chronic, stage IV (GFR 15-29 ml/min) ([facility])- Primary Chronic kidney disease, Stage IV (severe) HFrEF (heart failure with reduced ejection fraction) ([facility]) Kidney disease with fluid retention Unspecified disorder of kidney and ureter documented in this encounter Additional Health Concerns Infection Onset Date Last Indicated Resolved Time Varicella zoster 08/01/2022 08/01/2022 documented as of this encounter Care Teams Hospital Receptionist Relationship Specialty Start Date End Date Yaya Frederick MD [address] [place] [address] [phone] PCP - General Family Medicine 05/04/21 documented as of this encounter
--- OUTSIDE RECORDS SUMMARY | 2023-12-12 09:20 | External Medical Summary | Summary of Care ---
Author Name Unknown Organization [facility] Address [address] [place] [address] Phone [phone] Care Team Providers Care Profile Shaper Operator Name Role Phone Yaya Frederick MD Primary Care Provider Encounter Details Date Type Department Care Team (Late st Contact Info) Description 10/09/2023 Result Scan Unspecified Department Raquel Alcantara, [address] [phone] <No scans attached> Allergies Active Allergy Reactions [...] SolutionIndications:P ost-nasal discharge Administer into nostril 1 [place] in the morning AND 1 [place] before bedtime. 30 mL 0 11/30/2021 Active Ipratropium [place] 0.03 % Nasal Solution Administer into each [...] NSTEMI (non-ST elevated myocardial infarction) ([facility]) Take 1 Tablet by mouth in the morning. 90 Tablet 3 05/18/2023 Active Nitroglycerin 0.4 MG Sublingual Tablet Sublingual (Nitrostat)Indication s:NSTEMI (non-ST elevated myocardial infarction) ([facility]) Place 1 Tablet under the [...] failure with reduced ejection fraction) ([facility]) Take 1 Tablet by mouth in the morning. 90 Tablet 1 09/29/2023 Active Clopidogrel Bisulfate 75 MG Oral Tablet (pLAVix)Indications:H FrEF (heart failure with reduced ejection fraction) ([facility]) Take 1 Tablet by mouth [...] Stent Restenosis in Drug-Eluting Stents Project # [id number] Net Software Engineer: Wilda Serrano MD [phone] GENOMICS CARDIO RESEARCH OTHER*[id number] 01/09/2007 11/29/2016 Overview: Renamed Per Clinical Trials Billing Project. 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 # [id number] Net Software Engineer: Wilda Serrano MD [phone] Type 2 diabetes mellitus wit h hemoglobin A1c goal of less than 7.0% 11/03/2006 08/15/2007 Overview: ICD-10 update of inactive term PURE HYPERCHOLESTEROLEM 11/03/200609/22 Overview: Per Lipid Taxonomy. 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 ant [...] Upcoming Encounters Date Type Department Care Team ([facility] st Contact Info) Description 10/25/2023 10:40 AM EST Office Visit Nephrology [address] [place] [phone] Alfa Holcomb MD [address] [place] [address] 11/06/2023 5:40 PM EST Anticoagulation Pharmacy [address] [phone] Pharmacist2, [facility] [address] [address] 11/20/2023 1:40 PM EST Office Visit Family Practice [address] [phone] Yaya Frederick MD [address] [place] [address] 12/01/2023 2:15 PM EST Office Visit Hematology/Oncology [address] [place] [address] [place] [address] Agustín Sullivan MD [address] [place] [address] 01/26/2024 10:40 AM EDT Office Visit Otolaryngology [facility] [place] [place] [address] Keely Tanner PA-C [address] [place] [address] 08/16/2024 11:00 AM EDT Cardiac Studies Cardiology, [facility] [address] [place] [address] [place] [facility] [address] [facility] [place] [address] Health Maintenance Due Date Last Done Comments Zoster Vaccines (1 of 2) 1954 Hepatitis B (1 of 3 - Risk 3-dose series) 1996 COVID-19 Vaccine (2022- season) 2023 09/29/2022, 09/13/2021, 01/05/2021, Additional history exists Depression Screening 02/09/2024 02/08/2023 CKD PHOS USE SMARTSET 40497 05/01/202404/22, 11/04/2022, 02/14/2019 Albumin/Creatinine Ratio 06/15/2024 023, 05/01/2023, 07/04/2022, Additional history exists CKD HGB USE SMARTSET 90893 08/29/202408/29, 08/29/2023, 08/11/2023, Additional history exists DXA Scan 11/09/2024 11/09/2022, 01/21, 11/03/2015, Additional history exists DTaP,Tdap,and Td Vaccines (3 - Td or Tdap) 06/04/2029 06/04/2019, 01/28/2019, 05/26/2008 Pneumococcal Vaccine: 65+ Years Completed 05/24/2016, 11/14/2001 VITAMIN D LEVEL ONCE IN A LIFETIME-USE SMARTSET# [id number] Completed 05/01/2023, 11/04/2022, 02/14/2019, Additional history exists [...] Procedure Name Priority Date/Time Associated Diagnosis Comments OUTSIDE LAB RESULTS 10/09/2023 documented in this encounter Results * OUTSIDE LAB RESULTS (10/09/2023) 10/09/2023 Raquel Alcantara [facility] documented in this encounter Additional Health Concerns Infection Onset Date Last Indicated Resolved Time Varicella zoster 08/01/2022 08/01/2022 documented as of this encounter Care Teams Profile Shaper Operator Relationship Specialty Start Date End Date Yaya Frederick MD [address] [place] [phone] PCP - General Family Medicine 05/04/21 documented as of this encounter
--- OUTSIDE RECORDS SUMMARY | 2023-12-12 09:21 | External Medical Summary | Summary of Care ---
Author Name Unknown Organization [facility] Address [address] [place] [address] Phone [phone] Care Team Providers Care Rubber Covering Machine Operator Name Role Phone Yaya Frederick MD Primary Care Provider [phone] Reason for Visit * Reason Comments Follow Up Encounter Details Date Type Department Care Team ([facility] st Contact Info) Description 10/06/2023 10:40 AM EST Office Visit Otolaryngology [address] [place] [address] Keely Tanner PA-C [address] [place] [address] Bilateral impacted cerumen* Allergies Active Allergy Reactions Criticality Noted Date [...] as of this encounter (statuses as of 10/06/2023) Medications Medication Sig Dispensed Refills Start Date End Date Status BENADRYL 25 MG PO TABS 1 TABLET EVERY 4 TO 6 HOURS NEEDED 0 Active GRX ANALGESIC BALM EX OINT Apply topically to affected area. 0 07/01/2013 Active Azelastine HCl 0.15 % Nasal SolutionIndications:P ost-nasal discharge Administer into nostril 1 [place] in the morning AND 1 [place] before bedtime. 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/20 08 residential current use of ant icoagulant therapy 05/05/2006 01/23/2009 Overview: ICD-10 update of inactive term Anticoagulation management encounter 05/05/2006 10/03/2019 Unspecified viral infection, in conditions classified elsewhere and of unspecified site 06/08/2005 09/25/2007 Menopause 12/19/2001 12/27/2017 FEM STRESS INCONTINENCE 05/10/200111/23 documented as of this encounter (statuses as of 10/06/2023) Immunizations Name Administration Dates Next Due COVID-19 [...] as of this encounter Progress Notes * Keely Tanner PA-C - 10/06/2023 10:40 AM EST 10/06/2023 Subjective: Shannon Cruz is a 88 year old female. Chief Complaint Patient presents with Follow Up Nursing Notes: Klaudia Scherer, CHITO 10/06/23 1028 Signed Patient presents today for ear check. Right ear gets clogged now and then. HPI: Patient presents for routine return appointment for cerumen removal. She has intermittent right aural fullness and feels that ear is "clogged". This is intermittent forthe past 2-3 months. 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 Restless legs syndrome G25.81 Asymptomatic bilateral carotid artery stenosis I65.23 HTN, goal below 150/90 I10 DYSLIPIDEMIA, GOAL LDL BELOW 70 E78.5 residential current use of anticoagulant therapy Z79.01 Cardiac pacemaker in situ Z95.0 Sinus node dysfunction ([facility]) I49.5 Lumbar spinal stenosis M48.061 Essential thrombocythemia ([facility]) D47.3 Hx of nonmelanoma skin cancer Z85.828 Bilateral leg edema R60.0 Paroxysmal atrial fibrillation ([facility]) I48.0 Obstructive sleep apnea of adult G47.33 Hypertensive kidney disease with stage 3a chronic kidney disease ([facility]) I12.9, N18.31 Hx of actinic keratosis Z87.2 Chronic hypoxemic respiratory failure ([facility]) J96.11 RADHA (acute kidney injury) ([facility]) N17.9 HFrEF (heart failure with reduced ejection fraction) ([facility]) I50.20 Current Outpatient Medications Medication Sig Dispense Refill BENADRYL 25 MG PO TABS 1 TABLET EVERY 4 TO 6 HOURS NEEDED GRX ANALGESIC BALM EX OINT Apply topically to affected area. Azelastine HCl 0.15 % Nasal Solution Administer into nostril 1 [place] in the morning AND 1 [place] before bedtime. 30 mL 0 Ipratropium [place] 0.03 % Nasal Solution Administer into [...] mouth in the morning. 30 Tablet 5 Lactulose 10 GM/15ML Oral Solution (Constulose) Take 15 mL by mouth in the morning and 15 mL at noon and 15 mL before bedtime. 240 mL 0 Fexofenadine HCl 60 MG Oral Tablet (Lizzette) Take 1 Tablet by mouth daily as needed for Allergies. 90 Tablet 1 Warfarin Sodium 2.5 MG Oral Tablet Up to one tablet daily as directed by the Anticoag clinic 100 Tablet 3 Losartan Potassium 25 MG [...] present illness and past medical history. Objective: There were no vitals taken for this visit. General: alert, healthy, no distress, well nourished and well developed Ears: Examination of the ears revealed that the auricles were normally formed with no lesions. The external auditory canals were cleaned of impacted cerumen from both canals under microscopic guidance with forceps. The tympanic membranes were intact and freely mobile to pneumatoscopy without perforation or significant retraction pockets. In order to better examine the ears the patient was brought to the microscope room where her ears were examined under the operating microscope with the above physical findings. ASSESSMENT: Encounter Diagnoses Name Primary? Bilateral impacted cerumen Yes PLAN: Cerumen removed from both canals, ear examination is otherwise healthy. She will return in 3-4 months Keely Tanner PA-C 10/06/2023 9:40 AM documented in this encounter Nursing Notes * Klaudia Scherer LPN - 10/06/2023 10:27 AM EST Patient presents today for ear check. Right ear gets clogged now and then. documented in this encounter Plan of Treatment Upcoming Encounters Date Type Department Care Team ([facility] st Contact Info) Description 10/09/2023 5:40 PM EST Anticoagulation Pharmacy [address] [phone] Pharmacist2, [facility] [address] [address] 10/25/2023 10:40 AM EST Office Visit Nephrology [address] [place] [phone] Alfa Holcomb MD [address] [place] [address] 11/20/2023 1:40 PM EST Office Visit Family Practice [address] [phone] Yaya Frederick MD [address] [place] [address] 12/01/2023 2:15 PM EST Office Visit Hematology/Oncology [facility] [place] [address] [place] [address] Agustín Sullivan MD [address] [place] [address] 01/26/2024 10:40 AM EDT Office Visit Otolaryngology [facility] [address] [place] [address] Keely Tanner PA-C [address] [place] [address] 08/16/2024 11:00 AM EDT Cardiac Studies Cardiology, [facility] [address] [place] [address] [facility] [address] [place] [address] Health Maintenance Due Date Last Done Comments Zoster Vaccines (1 of 2) 1954 Hepatitis B (1 of 3 - Risk 3-dose series) 1996 COVID-19 Vaccine ( season) 2023 09/29/2022, 09/13/2021, 01/05/2021, Additional history exists Depression Screening 02/09/2024 02/08/2023 CKD PHOS USE SMARTSET 98133 05/01/202404/22, 11/04/2022, 02/14/2019 Albumin/Creatinine Ratio 06/15/2024 023, 05/01/2023, 07/04/2022, Additional history exists CKD HGB USE SMARTSET 68584 08/29/202408/29, 08/29/2023, 08/11/2023, Additional history exists DXA Scan 11/09/2024 11/09/2022, 01/21, 11/03/2015, Additional history exists DTaP,Tdap,and Td Vaccines (3 - Td or Tdap) 06/04/2029 06/04/2019, 01/28/2019, 05/26/2008 Pneumococcal Vaccine: 65+ Years Completed 05/24/2016, 11/14/2001 VITAMIN D LEVEL ONCE IN A LIFETIME-USE SMARTSET# [id number] Completed 05/01/2023, 11/04/2022, 02/14/2019, Additional history exists [...] as of this encounter Visit Diagnoses Diagnosis Bilateral impacted cerumen- Primary Impacted cerumen documented in this encounter Additional Health Concerns Infection Onset Date Last Indicated Resolved Time Varicella zoster 08/01/2022 08/01/2022 documented as of this encounter Care Teams Rubber Covering Machine Operator Relationship Specialty Start Date End Date Yaya Frederick MD [address] [place] [address] [place] [address] PCP - General Family Medicine 05/04/21 documented as of this encounter
--- OUTSIDE RECORDS SUMMARY | 2023-12-12 09:21 | External Medical Summary | Summary of Care ---
Author Name Unknown Organization [facility] Address [address] [place] [address] Phone [phone] Care Team Providers Care Food Crops Farm Hand Name Role Phone Yaya Frederick MD Primary Care Provider [phone] Reason for Visit * Reason Comments Dosage Adjustment Via Phone (anticoag Cl inic) Encounter Details Date Type Department Care Team (Latest Contact Info) Description 10/09/2023 5:40 PM EST Anticoagulation Pharmacy [address] [phone] Pharmacist2, [facility] [address] [address] S/P aortic valve replacement* Allergies Active Allergy [...] as of this encounter (statuses as of 10/09/2023) Medications Medication Sig Dispensed Refills Start Date End Date Status BENADRYL 25 MG PO TABS 1 TABLET EVERY 4 TO 6 HOURS NEEDED 0 Active GRX ANALGESIC BALM EX OINT Apply topically to affected area. 0 07/01/2013 Active Azelastine HCl 0.15 % Nasal SolutionIndications:P ost-nasal discharge Administer into nostril 1 [place] in the morning AND 1 [place] before bedtime. 30 mL 0 11/30/2021 Active Ipratropium [place] 0.03 % Nasal Solution Administer into each [...] 500 MG Oral Capsule (Hydrea)Indications:E ssential thrombocythemia ([facility]) Take 1 capsule by mouth [...] Tablet (Crestor)Indications: NSTEMI (non-ST elevated myocardial infarction) ([facility]) Take 1 Tablet by mouth in the morning. 90 Tablet 3 05/18/2023 Active Nitroglycerin 0.4 MG Sublingual Tablet Sublingual (Nitrostat)Indication s:NSTEMI (non-ST elevated myocardial infarction) ([facility]) Place 1 Tablet under the [...] one tablet daily as directed by the [facility] 100 Tablet 3 08/31/2023 Active Losartan Potassium 25 MG Oral Tablet (Cozaar) Take 0.5 Tablets by mouth in the morning. 45 Tablet 1 08/30/2023 Active Isosorbide Mononitrate ER 60 MG Oral Tablet Extended Release 24 Hour (Imdur)Indications:HF rEF (heart failure with reduced ejection fraction) ([facility]) Take 1 Tablet by mouth in the morning. 90 Tablet 1 09/29/2023 Active Clopidogrel Bisulfate 75 MG Oral Tablet (pLAVix)Indications:H FrEF (heart failure with reduced ejection fraction) ([facility]) Take 1 Tablet by mouth in the morning. 90 Tablet 1 09/29/2023 Active Torsemide 20 MG Oral Tablet (Demadex) Take 1 Tablet by mouth in the morning. 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 # [id number] Lamp Tester And Inspector: Wilda Serrano MD [phone] Type 2 diabetes mellitus wit h hemoglobin A1c goal of less than 7.0% 11/03/2006 08/15/2007 Overview: ICD-10 update of inactive term PURE HYPERCHOLESTEROLEM 11/03/200609/22 Overview: Per Lipid Taxonomy. 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 ant icoagulant therapy 05/05/2006 01/23/2009 Overview: ICD-10 update of inactive term Anticoagulation management encounter 05/05/2006 10/03/2019 Unspecified viral infection, in conditions classified elsewhere and of unspecified site 06/08/2005 09/25/2007 Menopause 12/19/2001 12/27/2017 FEM STRESS INCONTINENCE 05/10/200111/23 documented as of this encounter (statuses as of 10/09/2023) Immunizations Name Administration Dates Next Due COVID-19 [...] this encounter Progress Notes * Raquel Alcantara, [facility] - 10/09/2023 3:29 PM EST Images from the original note were not included. Medication Therapy Disease Management - Anticoagulation Patient: Shannon Yu Nancy | : 1935 Subjective Contacts Type Contact Phone/Fax 10/09/2023 03:29 PM EST Phone (Outgoing) Shannon Cruz (Self) [phone] (M) Left Message 10/09/2023 04:09 PM EST Phone (Outgoing) Shannon Cruz (Self) [phone] (M) Patient-Reported Symptoms: Patient Findings Negatives: Signs/symptoms of thrombosis, Signs/symptoms of bleeding, Change in health, Change in alcohol use, Change in activity, Upcoming invasive procedure, Missed doses, Extra doses, Change in medications, Change in diet/appetite, Bruising Objective Current Warfarin Dose As of 10/09/2023 Warfarin maintenance plan: 0 mg every Wed; 1.25 mg (2.5 mg x 0.5) all other days INR Result As of 10/09/2023 INR goal: 2.0-3.0 INR used for dosin.2 (10/09/2023) Assessment & Plan Warfarin Plan As of 10/09/2023 Full warfarin instructions: 10/09: Hold; Otherwise 0 mg every Wed; 1.25 mg all other days Next INR check: 11/06/2023 Repeat PT/INR in 4 week(s) via Weekly dose: not changed Additional Dosing Information: Description [facility] Home Health to complete INR. Fax to [phone]. Standing order for pt/inr. Please draw or completed fingerstick pt/inr as ordered by [facility] Pharmacist Results to [facility] Ordering Provider Dr. Yaya Frederick NPI# [id number] Raquel Alcantara [facility] Clinical Pharmacist 10/09/2023, 3:29 PM * Michelle Arana PHARM Tech - 10/09/2023 2:06 PM EST Caller's name: Ashley Christiano call back number(OFFICE NUMBER FOR ): [phone] Reason for call: nursing facility, [facility], calling with INR results. Result is 3.2 which was drawnon 10/09/2023. Patient is not being discharged. Thank you, Michelle Arana Customer Care Coordinator [facility] ([facility]) (formerly Telepharmacy) 10/09/2023,2:06 PM documented in this encounter Plan of Treatment Upcoming Encounters Date Type Department Care Team ([facility] st Contact Info) Description 10/25/2023 10:40 AM EST Office Visit Nephrology [facility], [address] [place] [phone] Alfa Holcomb MD [address] [place] [address] 11/06/2023 5:40 PM EST Anticoagulation Pharmacy [address] [phone] Pharmacist2, [facility] [address] [address] 11/20/2023 1:40 PM EST Office Visit Family Practice [facility] [address] [place] [phone] Yaya Frederick MD [address] [place] [address] 12/01/2023 2:15 PM EST Office Visit Hematology/Oncology [facility] [address] [place] [address] Agustín Sullivan MD 200 [place] [address] 01/26/2024 10:40 AM EDT Office Visit Otolaryngology [address] [place] [phone] Keely Tanner PA-C [facility] [place] [address] 08/16/2024 11:00 AM EDT Cardiac Studies Cardiology, [facility] [address] [facility] [place] [address] [place] [facility] [place] [address] Health Maintenance Due Date Last Done Comments Zoster Vaccines (1 of 2) 1955 Hepatitis B (1 of 3 - Risk 3-dose series) 1996 COVID-19 Vaccine ( season) 2023 09/29/2022, 09/13/2021, 01/05/2021, Additional history exists Depression Screening 02/09/2024 02/08/2023 CKD PHOS USE SMARTSET 64981 05/01/202404/22, 11/04/2022, 02/14/2019 Albumin/Creatinine Ratio 06/15/2024 023, 05/01/2023, 07/04/2022, Additional history exists CKD HGB USE SMARTSET 36756 08/29/202408/29, 08/29/2023, 08/11/2023, Additional history exists DXA Scan 11/09/2024 11/09/2022, 01/21, 11/03/2015, Additional history exists DTaP,Tdap,and Td Vaccines (3 - Td or Tdap) 06/04/2029 06/04/2019, 01/28/2019, 05/26/2008 Pneumococcal Vaccine: 65+ Years Completed 05/24/2016, 11/14/2001 VITAMIN D LEVEL ONCE IN A LIFETIME-USE SMARTSET# 59541 Completed 05/01/2023, 11/04/2022, 02/14/2019, Additional history exists [...] Name Priority Date/Time Associated Diagnosis Comments OUTSIDE LAB-PT/INR Routine 10/09/2023 documented in this encounter Results * OUTSIDE LAB-PT/INR (10/09/2023) INR-OUTSIDE LAB 3.2 OUTS [facility] (SEE SCANNED REPORT) 10/09/2023 History Per Patient LABORATORY OUTSIDE LAB (SEE SCANNED REPORT) documented in this encounter Visit Diagnoses Diagnosis S/P aortic valve replacement- Primary Heart valve replaced by other means documented in this encounter Additional Health Concerns Infection Onset Date Last Indicated Resolved Time Varicella zoster 08/01/2022 08/01/2022 documented as of this encounter Care Teams Food Crops Farm Hand Relationship Specialty Start Date End Date Yaya Frederick MD [address] [place] [address] PCP - General Family Medicine 05/04/21 documented as of this encounter"
--- OUTSIDE RECORDS SUMMARY | 2023-12-12 09:21 | External Medical Summary | Summary of Care ---
Author Name Unknown Organization [facility] Address [address] [place] [address] Phone [phone] Care Team Providers Care Detective Precinct Name Role Phone Yaya Frederick MD Primary Care Provider Reason for Visit * Reason Comments Hospital Follow-Up [facility] 09/12-09/18/23 Edema in LE ongoing and worse at certain times. Ongoing SOB and using O2 but only worse with exertion- using walking to get around helps. Denies chest pain, palpitations and dizziness. Encounter Details Date Type Department Care Team (Late st Contact Info) Description 10/02/2023 3:30 PM EST Office Visit Cardiology, [facility] [address] [place] [address] Bucky Calvo PA-C [address] [place] [phone] Chronic atrial fibrillation (HCC)*; Cardiac pacemaker in situ; CHR ISCHEMIC HRT DIS NOS; S/P aortic valve replacement; S/P CABG (coronary artery bypass graft); HFrEF (heart failure with reduced ejection fraction) (HCC); Sinus node dysfunction (HCC) Allergies Active Allergy Reactions Criticality Noted [...] as of this encounter (statuses as of 10/02/2023) Medications Medication Sig Dispensed Refills Start Date End Date Status BENADRYL 25 MG PO TABS 1 TABLET EVERY 4 TO 6 HOURS NEEDED 0 Active GRX ANALGESIC BALM EX OINT Apply topically to affected area. 0 07/01/2013 Active Azelastine HCl 0.15 % Nasal SolutionIndications:P ost-nasal discharge Administer into nostril 1 [place] in the morning AND 1 [place] before bedtime. 30 mL 0 11/30/2021 Active Ipratropium [place] 0.03 % Nasal Solution Administer into each [...] Active Additional Information Patient not taking.Reported on 09/12/2023 Senna 8.6 MG Oral Tablet Take 1 Tablet by mouth in the morning. 30 Tablet 5 08/01/2023 Active Additional Information Patient not taking.Reported on 09/12/2023 Lactulose 10 GM/15ML Oral Solution (Constulose) Take 15 mL by mouth in the morning and 15 mL at noon and 15 mL before bedtime. 240 mL 0 08/23/2023 Active Additional Information Patient not taking.Reported on 09/12/2023 Fexofenadine HCl 60 MG Oral Tablet (Lizzette) Take 1 Tablet by mouth daily as needed for Allergies. 90 Tablet 1 08/30/2023 Active Warfarin Sodium 2.5 MG Oral TabletIndications:Chr onic ischemic heart disease Up to one tablet daily as directed by the [facility] clinic 100 Tablet 3 08/31/2023 Active [...] as of this encounter (statuses as of 10/02/2023) Active Problems Problem Noted Date Diagnosed Date [...] as of this encounter (statuses as of 10/02/2023) Resolved Problems Problem Noted Date Diagnosed Date [...] Stent Restenosis in Drug-Eluting Stents Project # [id number] Water Well Driller: Wilda Serrano MD [phone] GENOMICS CARDIO RESEARCH OTHER*[id number] 01/09/2007 11/29/2016 Overview: Renamed Per Clinical Trials Billing Project. 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 # [id number] Water Well Driller: Wilda Serrano MD [phone] Type 2 diabetes mellitus wit h hemoglobin A1c goal of less than 7.0% 11/03/2006 08/15/2007 Overview: ICD-10 update of inactive term PURE HYPERCHOLESTEROLEM 11/03/200609/22 Overview: Per Lipid Taxonomy. 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/20 08 custodial current use of ant icoagulant therapy 05/05/2006 01/23/2009 Overview: ICD-10 update of inactive term Anticoagulation management encounter 05/05/2006 10/03/2019 Unspecified viral infection, in conditions classified elsewhere and of unspecified site 06/08/2005 09/25/2007 Menopause 12/19/2001 12/27/2017 FEM STRESS INCONTINENCE 05/10/200111/23 documented as of this encounter (statuses as of 10/02/2023) Immunizations Name Administration Dates Next Due COVID-19 [...] Reading Time Taken Comments Blood Pressure 122/74 10/02/2023 3:31 PM EST Pulse 88 10/02/2023 3:31 PM EST Temperature - - Respiratory Rate 16 10/02/2023 3:31 PM EST Oxygen Saturation - - Inhaled Oxygen Concentration - - Weight 78.9 kg (174 lb) 10/02/2023 3:31 PM EST Height - - Body Mass Index 35.12 06/30/2023 1:38 PM EDT documented in this encounter Progress Notes * Bucky Calvo PA-C - 10/02/2023 3:30 PM EST History of Present Illness: Shannon Cruz is a very pleasant 88-year-old female who returns today for cardiology follow-up evaluation. Hospitalized at [facility] in April 2023 with chest pain, NSTEMI, echocardiographic evidence of inferior, posterior and septal myocardial infarction. Mild LV systolic dysfunction, EF 40-45% with severe TR, moderate to severe MR. Course complicated by CVA, MRI with two subcentimeter acute lacunar infarcts within the right frontal lobe. Conservative medical management requested. Hospitalized at [facility] in May 2023 with recurrent angina, NSTEMI, and acute decompensated systoliccongestive heart failure Status post August 02, [address] Chau at [facility] - ATEME XT SR MRI SureScan [id number], Serial # [id number]. Hospitalized at [facility] in August 2023 with acute on chronic hypoxic respiratory failure including an element of acute decompensated systolic and diastolic congestive heart failure Accompanied by children Jonathan and Jose F Cruz + Shortness of breath Using supplemental oxygen via nasal cannula +Abdominal bloating + Lower extremity peripheral edema intermittently worse though improving overnight No chest discomfort. No palpitations No PND. No dizziness, near syncope, or syncope. No melena, hematochezia, or hematuria. Episode x 1 after taking Losartan (12.5 mg) recently - burning in the esophagus; ? Acid reflux, spasm, or irritation. 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 Restless legs syndrome G25.81 Asymptomatic bilateral carotid artery stenosis I65.23 HTN, goal below 150/90 I10 DYSLIPIDEMIA, GOAL LDL BELOW 70 E78.5 custodial current use of anticoagulant therapy Z79.01 Cardiac [...] respiratory failure ([facility]) J96.11 RADHA (acute kidney injury) (HCC) N17.9 HFrEF (heart failure with reduced ejection fraction) ([facility]) I50.20 Past Medical History: Diagnosis Date Anticoagulation management [...] compatible patecmaker insertion intraoperative fluoroscopic guidance [facility]14 KNEE ARTHROSCOPY/ARTHROPLASTY 09/2010 dr salcedo LIGATE/CUT OVIDUCT(S) 1963 OTHER 12/27 RCA drug eluting stent REPLACEMENT AORTIC VALVE, BYPASS WITH PROSTHETIC VALVE 04/27 [place] [facility] AVR TOTAL ABD HYSTERECTOMY W/WO REMOVAL [...] TABLET EVERY 4 TO 6 HOURS NEEDED Azelastine HCl 0.15 % Nasal Solution Administer into nostril 1 [place] in the morning AND 1 [place] before bedtime. 30 mL 0 Ipratropium [place] 0.03 % Nasal Solution Administer into each [...] tablet daily as directed by the [facility] clinic 100 Tablet 3 Losartan Potassium 25 [...] mouth in the morning. 30 Tablet 3 GRX ANALGESIC BALM EX OINT Apply topically to affected area. Nitroglycerin 0.4 MG Sublingual Tablet Sublingual (Nitrostat) Place 1 Tablet under the tongue as needed for Pain, Chest. May repeat 3 times. If chest pain continues, call 911. 25 Tablet 11 Docusate Sodium 100 MG Oral Capsule (Colace) Take 1 Capsule by mouth in the morning and 1 Capsule before bedtime. (Patient not taking: Reported on 09/12/2023) 60 Capsule 5 Senna 8.6 MG Oral Tablet Take 1 Tablet by mouth in the morning. (Patient not taking: Reported on 09/12/2023) 30 Tablet 5 Lactulose 10 GM/15ML Oral Solution (Constulose) Take 15 mL by mouth in the morning and 15 mL at noon and 15 mL before bedtime. (Patient not taking: Reported on 09/12/2023) 240 mL 0 No current facility-administered medications for this visit. Above medication list reflects today's changes PHYSICAL EXAM: BP 122/74 | Pulse 88 | Resp 16 | Wt 78.9 kg (174 lb) | BMI 35.12 kg/m | BSA 1.81 m General: A&Ox3. NAD. HENT: Normocephalic. Atraumatic. Neck: +JVD. Bilateral carotid bruits. Lungs: Absent breath sounds at the right base (prior CXR with elevated right hemidiaphragm). Clear to auscultation. No wheeze. Cardiovascular: Irregularly irregular at 86 bpm. Grade II/IV systolic ejection murmur. No diastolicmurmur. No rub Abdomen: Soft, nontender. No hepatojugular reflux. Extremities: 1-2+ left greater than right lower extremity pitting edema. Minimal erythema of the right lower extremity. No overt cellulitis. No clubbing. No cyanosis. Pulses: The right [...] moderate to severe tricuspid regurgitation now present. September 13, 2023 TTE Interpretation Summary ([facility], Dr. Richardson): Moderate concentric LVH in segments with normal wall motion. Large sized apical, septal, anteroseptal, inferior, and posterior WMA with hypokinesis to akinesis of the segments. EF 40-45%. Bioprosthetic AV with trivial regurgitation;normal gradient for this prosthetic aortic valve. Moderate to severe mitral regurgitation. Severe tricuspid regurgitation. PASP 37 mmHg (upper limits of normal to mildly elevated)> Compared to tehreport of the previous study dated 05/03/2023, there is no significant interval change. Device interrogation on August 11, 2023 demonstrated appropriate function, 15.2 years remaining longevity. Ventricular paced 5.7%. Average rates circa 80 bpm. ASSESSMENT: Systolic and diastolic congestive heart failure. EF 40% Volume status: Hypervolemic despite weight loss. Stage IV chronic kidney disease (GFR 15-29 mL/min) Chronic atrial fibrillation with a controlled ventricular response Chronic Coumadin 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 Prior transient bright red blood per rectum requiring ER evaluation in December 2021, suggestive of hemorrhoidal bleeding, declining further evaluation (colonoscopy). Sinus node dysfunction Status post April 08, 2014 dual chamber pacemaker implantation Status post August 02, [address] Chau at [facility] - Send the Trend [place]ia XT SR MRI SureScan [id number], Serial # [id number]. Status post AVR and CABG in April [...] the right coronary artery at that time. Hospitalized at [facility] in April 2023 with chest pain, NSTEMI, echocardiographic evidence of inferior, posterior and septal myocardial infarction. Mild LV systolic dysfunction, EF 40-45% with severe TR, moderate to severe MR. Course complicated by CVA, MRI with two subcentimeter acute lacunar infarcts within the right frontal lobe. Managed conservatively. Hospitalized at [facility] in May 2023 with recurrent angina, NSTEMI, and acute decompensated systoliccongestive heart failure Hospitalized at [facility] in August 2023 with acute on chronic hypoxic respiratory failure including an element of acute decompensated systolic and diastolic congestive heart failure Hypertension. Hyperlipidemia. Lipids well controlled. LDL 43 mg/dL on May 05, 2023 ([facility]) Bilateral internal carotid artery disease. Last duplex transpired in February 2023 and revealed stable mild bilateral internal carotid artery disease with results unchanged for a number of years. Mild sleep apnea. Intolerant to CPAP therapy Ambulatory and nocturnal hypoxemia treated with supplemental oxygen 2 to 3 liters/minute via nasal cannula Spinal stenosis with chronic back pain. Restless leg syndrome Options of management discussed. Plan as outlined below, obtained via shared decision making. RECOMMENDATIONS/PLAN: Restrict sodium intake to 1500 mg/day or less Restrict fluid intake to less than 50 oz per day Utilize knee-high compression stockings, 20 mmHg, on in the morning and off at bedtime Increase torsemide slightly. Patient currently taking 20 mg/day. Recommend taking an additional 20 mg of torsemide two non consecutive days per week as well as utilizing a DTP if weight is up 3 pounds abruptly/overnight Continue/resume low-dose losartan, 12.5 mg once per day Continue GDMT metoprolol succinate. She has been off of spironolactone since being hospitalized at [facility] in May 2023. Decrease Buspar from 5 mg BID PRN to 2.5 mg BID PRN. Consider switching famotidine back to pantoprazole 40 mg/day if ongoing reflux/esophageal issues Cardiology follow-up in 3 to 4 weeks or as needed ER with emergencies Bucky Calvo PA-C Department of Cardiology I spent a total of Greater than 55 mins (exact time 70 mins) on the date of service in preparation,delivery, and documentation of the care provided to Shannon Cruz excluding any time spent in the performance of separately billed services. This chart was completed in part utilizing [employer] Speech Voice Recognition Software. Grammatical errors, random word insertions, prounoun errors, and incomplete sentences are an occasional consequence of this system due to software limitations, ambient noise, and hardware issues. Any formal questions or concerns about the content, text, or informationcontained within the body of this dictation should be directly addressed to the provider for clarification. documented in this encounter Nursing Notes * Adrian Galindo LPN - 10/02/2023 3:30 PM EST Patient identified by full name and date of Chief Complaint Patient presents with Hospital Follow-Up [facility] 09/12-09/18/23 Edema in LE ongoing and worse at certain times. Ongoing SOB and using O2 but only worse with exertion- using walking to get around helps. Denies chest pain, palpitations and dizziness. Examination Room: 2 Name: Shannon Cruz Date of : (1935). Reason for Visit: HD follow up Interim Hospitalization(s): [facility] 09/12-09/18/23 Problems/Concerns: See chief complaint Chest Pain/SOB: See [...] Upcoming Encounters Date Type Department Care Team ([facility] Contact Info) Description 10/06/2023 10:40 AM EST Office Visit Otolaryngology [address] [place] [phone] Ke[facility]anner [facility]-C [facility] [address] 10/09/2023 5:40 PM EST Anticoagulation Pharmacy [address] [phone] Pharmacist2, [facility] [address] [address] 10/25/2023 10:40 AM EST Office Visit Nephrology [address] [place] [phone] Alfa Holcomb MD [address] [facility] [place] [address] 11/20/2023 1:40 PM EST Office Visit Family Practice [place] [phone] Yaya Frederick MD [address] [place] [id number] 12/01/2023 2:15 PM EST Office Visit Hematology/Oncology [facility] [address] [facility] [place] [address] Agustín Sullivan MD [address] [facility] [place] [address] 08/16/2024 11:00 AM EDT Cardiac Studies Cardiology, [facility] 132 [facility] [place] [address] [place] [facility] [address] [facility] [place] [address] Health Maintenance Due Date Last Done Comments Zoster Vaccines (1 of 2) 1954 Hepatitis B (1 of 3 - Risk 3-dose series) 1996 COVID-19 Vaccine (2022- season) 2023 09/29/2022, 09/13/2021, 01/05/2021, Additional history exists Depression Screening 02/09/2024 02/08/2023 CKD PHOS USE SMARTSET 88160 05/01/202404/22, 11/04/2022, 02/14/2019 Albumin/Creatinine Ratio 06/15/2024 023, 05/01/2023, 07/04/2022, Additional history exists CKD HGB USE SMARTSET 49829 08/29/202408/29, 08/29/2023, 08/11/2023, Additional history exists DXA Scan 11/09/2024 11/09/2022, 01/21, 11/03/2015, Additional history exists DTaP,Tdap,and Td Vaccines (3 - Td or Tdap) 06/04/2029 06/04/2019, 01/28/2019, 05/26/2008 Pneumococcal Vaccine: 65+ Years Completed 05/24/2016, 11/14/2001 VITAMIN D LEVEL ONCE IN A LIFETIME-USE SMARTSET# [id number] Completed 05/01/2023, 11/04/2022, 02/14/2019, Additional history exists [...] of this encounter Visit Diagnoses Diagnosis Chronic atrial fibrillation (HCC)- Primary Atrial fibrillation Cardiac pacemaker in situ CHR ISCHEMIC HRT DIS NOS Chronic ischemic heart disease, unspecified S/P aortic valve replacement Heart valve replaced by other means S/P CABG (coronary artery bypass graft) Postsurgical aortocoronary bypass status HFrEF (heart failure with reduced ejection fraction) (HCC) Sinus node dysfunction (HCC) Sinoatrial node dysfunction documented in this encounter Additional Health Concerns Infection Onset Date Last Indicated Resolved Time Varicella zoster 08/01/2022 08/01/2022 documented as of this encounter Care Teams Detective Precinct Relationship Specialty Start Date End Date Yaya Frederick MD [address] [place] [address] PCP - General Family Medicine 05/04/21 documented as of this encounter"
--- OUTSIDE RECORDS SUMMARY | 2023-12-12 09:22 | External Medical Summary | Summary of Care ---
Author Name Unknown Organization [facility] Address [address] [place] [address] Phone [phone] Care Team Providers Care Transportation Specialist Name Role Phone Yaya Frederick MD Primary Care Provider Reason for Visit * Reason Comments Dosage Adjustment Via Phone (anticoag Cl inic) Encounter Details Date Type Department Care Team (Latest Contact Info) Description 09/26/2023 5:40 PM EST Anticoagulation Pharmacy [address] [phone] Pharmacist2, [facility] [address] [address] S/P aortic valve replacement* Allergies Active Allergy [...] as of this encounter (statuses as of 09/26/2023) Medications Medication Sig Dispensed Refills Start Date End Date Status BENADRYL 25 MG PO TABS 1 TABLET EVERY 4 TO 6 HOURS NEEDED 0 Active GRX ANALGESIC BALM EX OINT Apply topically to affected area. 0 07/01/2013 Active Azelastine HCl 0.15 % Nasal SolutionIndications:P ost-nasal discharge Administer into nostril 1 [place] in the morning AND 1 [place] before bedtime. 30 mL 0 11/30/2021 Active Ipratropium [place] 0.03 % Nasal Solution Administer into each [...] 500 MG Oral Capsule (Hydrea)Indications:E ssential thrombocythemia ([facility]) Take 1 capsule by mouth [...] rEF (heart failure with reduced ejection fraction) ([facility]) Take 1 Tablet by mouth in the morning. 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 # [id number] Engineer Exhauster: Wilda Serrano MD [phone] Type 2 diabetes mellitus wit h hemoglobin A1c goal of less than 7.0% 11/03/2006 08/15/2007 Overview: ICD-10 update of inactive term PURE HYPERCHOLESTEROLEM 11/03/200609/22 Overview: Per Lipid Taxonomy. 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 of ant icoagulant therapy 05/05/2006 01/23/2009 Overview: ICD-10 update of inactive term Anticoagulation management encounter 05/05/2006 10/03/2019 Unspecified viral infection, in conditions classified elsewhere and of unspecified site 06/08/2005 09/25/2007 Menopause 12/19/2001 12/27/2017 FEM STRESS INCONTINENCE 05/10/200111/23 documented as of this encounter (statuses as of 09/26/2023) Immunizations Name Administration Dates Next Due COVID-19 mRNA, LNP-s, No Pre serve, 2-Dose Series ([employer]) 09/13/2021,01/05/2021,12/15/2020 Covid-19, Mrna, Lnp-s, Pf, B ivalent, [...] Progress Notes * Raquel Alcantara, [facility] - 09/26/2023 9:14 AM EST Medication Therapy Disease Management - Anticoagulation Patient: Shannon Cruz | : 1935 Subjective Patient-Reported Symptoms: Patient Findings Negatives: Signs/symptoms of thrombosis, Signs/symptoms of bleeding, Change in health, Change in alcohol use, Change in activity, Upcoming invasive procedure, Missed doses, Extra doses, Change in medications, Change in diet/appetite, Bruising Objective Current Warfarin Dose As of 09/26/2023 Warfarin maintenance plan: 0 mg every Wed; 1.25 mg (2.5 mg x 0.5) all other days INR Result As of 09/26/2023 INR goal: 2.0-3.0 INR used for dosin.3 (09/25/2023) Assessment & Plan Warfarin Plan As of 09/26/2023 Full warfarin instructions: 0 mg every Wed; 1.25 mg all other days No change documented: Raquel Alcantara RPh Next INR check: 10/09/2023 Repeat PT/INR in 2 week(s) (via [facility]) Weekly dose: not changed Additional Dosing Information: Description [facility] Home Health to complete INR. Fax to [phone]. Standing order for pt/inr. Please draw or completed fingerstick pt/inr as ordered by [facility] Pharmacist Results to [facility] Ordering Provider Dr. Yaya Frederick NPI# [id number] Raquel Alcantara RPh Clinical Pharmacist 09/26/2023, 9:16 AM documented in this encounter Plan of Treatment Upcoming Encounters Date Type Department Care Team ([facility] st Contact Info) Description 09/27/2023 11:40 AM EST Office Visit Family Practice [address] [phone] Oneida Briggs PA-C [address] [place] [address] 10/02/2023 3:30 PM EST Office Visit Cardiology, [facility] [address] [place] [address] Bucky Calvo PA-C [address] [place] [address] 10/06/2023 10:40 AM EST Office Visit Otolaryngology [address] [place] [phone] Keely Tanner PA-C [address] [place] [address] 10/09/2023 5:40 PM EST Anticoagulation Pharmacy [facility] [address] [place] [address] Pharmacist2, [facility] [address] [place] [address] 10/25/2023 10:40 AM EST Office Visit Nephrology [address] [place] [phone] Alfa Holcomb MD 200 [place] [address] 11/20/2023 1:40 PM EST Office Visit Family Practice [facility] [address] [place] [phone] Yaya Frederick MD [address] [place] [address] 12/01/2023 2:15 PM EST Office Visit Hematology/Oncology [facility] [address] [place] [address] Agustín Sullivan MD [address] [place] [address] 08/16/2024 11:00 AM EDT Cardiac Studies Cardiology, [facility] 132 [place] [address] [facility] 132 [place] [address] Health Maintenance Due Date Last Done Comments Zoster Vaccines (1 of 2) 1954 Hepatitis B (1 of 3 - Risk 3-dose series) 1996 COVID-19 Vaccine ( season) 2023 09/29/2022, 09/13/2021, 01/05/2021, Additional history exists Depression Screening 02/09/2024 02/08/2023 CKD PHOS USE SMARTSET 41713 05/01/2024 07/1 , 11/04/2022, 02/14/2019 Albumin/Creatinine Ratio 06/15/2024 023, 05/01/2023, 07/04/2022, Additional history exists CKD HGB USE SMARTSET 76368 08/29/202408/29, 08/29/2023, 08/11/2023, Additional history exists DXA Scan 11/09/2024 11/09/2022, 01/21, 11/03/2015, Additional history exists DTaP,Tdap,and Td Vaccines (3 - Td or Tdap) 06/04/2029 06/04/2019, 01/28/2019, 05/26/2008 Pneumococcal Vaccine: 65+ Years Completed 05/24/2016, 11/14/2001 VITAMIN D LEVEL ONCE IN A LIFETIME-USE SMARTSET# [id number] Completed 05/01/2023, 11/04/2022, 02/14/2019, Additional history exists [...] Date/Time Associated Diagnosis Comments OUTSIDE LAB-PT/INR Routine 09/25/2023 documented in this encounter Results * OUTSIDE LAB-PT/INR (09/25/2023) INR-OUTSIDE LAB 2.3 [place] 09/25/2023 History Per Patient LABORATORY [facility] [address] [place] [address] documented in this encounter Visit Diagnoses Diagnosis S/P aortic valve replacement- Primary Heart valve replaced by other means documented in this encounter Additional Health Concerns Infection Onset Date Last Indicated Resolved Time Varicella zoster 08/01/2022 08/01/2022 documented as of this encounter Care Teams Transportation Specialist Relationship Specialty Start Date End Date Yaya Frederick MD [address] [place] [address] [place] [address] PCP - General Family Medicine 05/04/21 documented as of this encounter"
--- OUTSIDE RECORDS SUMMARY | 2023-12-12 09:22 | External Medical Summary | Summary of Care ---
Author Name Unknown Organization [facility] Address [address] [place] [address] Phone [phone] Care Team Providers Care Cleaner Furniture Name Role Phone Yaya Frederick MD Primary Care Provider [phone] Reason for Visit * Reason Onset Date Comments Medication Refill 09/28/2023 Encounter Details Date Type Department Care Team (Late st Contact Info) Description 09/28/2023 Refill Nephrology, [place] [address] [place] [address] Juno Christianson MD [address] [place] [address] Allergies Active Allergy Reactions Criticality Noted Date [...] as of this encounter (statuses as of 09/29/2023) Medications Medication Sig Dispensed Refills Start Date End Date Status BENADRYL 25 MG PO TABS 1 TABLET EVERY 4 TO 6 HOURS NEEDED 0 Active GRX ANALGESIC BALM EX OINT Apply topically to affected area. 0 07/01/2013 Active Azelastine HCl 0.15 % Nasal SolutionIndications: Post-nasal discharge Administer into nostril 1 [place] in the morning AND 1 [place] before bedtime. 30 mL 0 11/30/2021 Active Ipratropium [place] 0.03 % Nasal Solution Administer into each [...] myocardial infarction) ([facility]) Take 1 Tablet by mouth in the morning. 90 Tablet 3 05/18/2023 Active Nitroglycerin 0.4 MG Sublingual Tablet Sublingual (Nitrostat)Indicatio ns:NSTEMI (non-ST elevated myocardial infarction) ([facility]) Place 1 Tablet under the tongue [...] [facility] clinic 100 Tablet 3 08/31/2023 Active Losartan Potassium 25 MG Oral Tablet (Cozaar) Take 0.5 Tablets by mouth in the morning. 45 Tablet 1 08/30/2023 Active Isosorbide Mononitrate ER 60 MG Oral Tablet Extended Release 24 Hour (Imdur)Indications:H FrEF (heart failure with reduced ejection fraction) ([facility]) Take 1 Tablet by mouth in the morning. 90 Tablet 1 09/29/2023 Active Clopidogrel Bisulfate 75 MG Oral Tablet (pLAVix)Indications: HFrEF (heart failure with reduced ejection fraction) ([facility]) Take 1 Tablet by mouth in the morning. 90 Tablet 1 09/29/2023 Active Torsemide 20 MG Oral Tablet (Demadex) Take 1 Tablet by mouth in the morning. 30 Tablet 3 09/29/2023 Active Torsemide 20 MG Oral Tablet (Demadex) Take 1 Tablet by mouth in the morning. 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 # [id number] Firer Kiln: Wilda Serrano MD [phone] Type 2 diabetes mellitus wit h hemoglobin A1c goal of less than 7.0% 11/03/2006 08/15/2007 Overview: ICD-10 update of inactive term PURE HYPERCHOLESTEROLEM 11/03/200609/22 Overview: Per Lipid Taxonomy. 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/20 08 jail current use of ant icoagulant therapy 05/05/2006 01/23/2009 Overview: ICD-10 update of inactive term Anticoagulation management encounter 05/05/2006 10/03/2019 Unspecified viral infection, in conditions classified elsewhere and of unspecified site 06/08/2005 09/25/2007 Menopause 12/19/2001 12/27/2017 FEM STRESS INCONTINENCE 05/10/200111/23 documented as of this encounter (statuses as of 09/29/2023) Immunizations Name Administration Dates Next Due COVID-19 mRNA, LNP-s, No Pre serve, 2-Dose Series ([employer]) 09/13/2021,01/05/2021,12/15/2020 Covid-19, Mrna, Lnp-s, Pf, B ivalent, [...] encounter Miscellaneous Notes * Telephone Encounter - Earl Beck MD - 09/29/2023 10:51 AM ESTSigned Prescriptions: Disp Refills Torsemide 20 MG Oral Tablet (Demadex) 30 Tab*3 Sig: Take 1 Tablet by mouth in the morning. Authorizing Provider: EARL BECK * Telephone Encounter - Wilda Campbell LPN - 09/29/2023 8:17 AM ESTPending Prescriptions: Disp Refills Torsemide 20 MG Oral Tablet (Demadex) 30 Tab*3 Sig: Take 1 Tablet by mouth in the morning. * Telephone Encounter - Wilda Campbell LPN - 09/29/2023 8:16 AM EST Please review and approve medication refill request. Maintenance Dialysis History Patient has no recorded history of maintenance dialysis. 06/23/2023 (in office), 08/23/2023 (telemedicine) 10/25/23 follow up documented in this encounter Plan of Treatment Upcoming Encounters Date Type Department Care Team (Late st Contact Info) Description 10/02/2023 3:30 PM EST Office Visit Cardiology, [facility] [address] [address] Bucky Calvo PA-C [address] [address] 10/06/2023 10:40 AM EST Office Visit Otolaryngology [address] [place] [phone] Keely Tanner PA-C [address] [place] [address] 10/09/2023 5:40 PM EST Anticoagulation Pharmacy [address] [phone] Pharmacist, [facility] [address] [place] [address] 10/25/2023 10:40 AM EST Office Visit Nephrology [facility] 68 [facility] [address] [place] [phone] Earl Beck MD 200 [facility] [place] [address] 11/20/2023 1:40 PM EST Office Visit Family Practice [facility] [address] [place] [phone] Yaya Frederick MD [address] [place] [address] 12/01/2023 2:15 PM EST Office Visit Hematology/Oncology [facility] 200 [facility] [place] [address] Agustín Sullivan MD 200 [facility] [place] [address] 08/16/2024 11:00 AM EDT Cardiac Studies Cardiology, [facility] 132 [facility] [place] [address] [facility] 132 [place] [address] Health Maintenance Due Date Last Done Comments Zoster Vaccines (1 of 2) 1954 Hepatitis B (1 of 3 - Risk 3-dose series) 1996 COVID-19 Vaccine ( season) 2023 09/29/2022, 09/13/2021, 01/05/2021, Additional history exists Depression Screening 02/09/2024 02/08/2023 CKD PHOS USE SMARTSET 63674 05/01/2024 07/, 11/04/2022, 02/14/2019 Albumin/Creatinine Ratio 06/15/2024 023, 05/01/2023, 07/04/2022, Additional history exists CKD HGB USE SMARTSET 63419 08/29/202408/29, 08/29/2023, 08/11/2023, Additional history exists DXA Scan 11/09/2024 11/09/2022, 01/21, 11/03/2015, Additional history exists DTaP,Tdap,and Td Vaccines (3 - Td or Tdap) 06/04/2029 06/04/2019, 01/28/2019, 05/26/2008 Pneumococcal Vaccine: 65+ Years Completed 05/24/2016, 11/14/2001 VITAMIN D LEVEL ONCE IN A LIFETIME-USE SMARTSET# 24053 Completed 05/01/2023, 11/04/2022, 02/14/2019, Additional history exists [...] documented as of this encounter Care Teams Cleaner Furniture Relationship Specialty Start Date End Date Yaya Frederick MD [address] [place] [phone] PCP - General Family Medicine 05/04/21 documented as of this encounter
--- OUTSIDE RECORDS SUMMARY | 2023-12-12 09:22 | External Medical Summary | Summary of Care ---
Author Name Unknown Organization [facility] Address [address] [place] [address] Phone [phone] Care Team Providers Care Internal Investigator Name Role Phone Yaya Frederick MD Primary Care Provider [phone] Reason for Visit * Reason Onset Date Comments Referral 09/27/2023 Encounter Details Date Type Department Care Team ([facility] st Contact Info) Description 09/27/2023 Telephone [place] [address] [place] [phone] Yaya Frederick MD [address] [place] [address] Referral Allergies Active Allergy Reactions Criticality Noted Date [...] as of this encounter (statuses as of 09/27/2023) Medications Medication Sig Dispensed Refills Start Date End Date Status BENADRYL 25 MG PO TABS 1 TABLET EVERY 4 TO 6 HOURS NEEDED 0 Active GRX ANALGESIC BALM EX OINT Apply topically to affected area. 0 07/01/2013 Active Azelastine HCl 0.15 % Nasal SolutionIndications:P ost-nasal discharge Administer into nostril 1 [place] in the morning AND 1 [place] before bedtime. 30 mL 0 11/30/2021 Active Ipratropium [place] 0.03 % Nasal Solution Administer into each [...] (non-ST elevated myocardial infarction) ([facility]) Take 1 Tablet by mouth in the morning. 90 Tablet 3 05/18/2023 Active Nitroglycerin 0.4 MG Sublingual Tablet Sublingual (Nitrostat)Indication s:NSTEMI (non-ST elevated myocardial infarction) ([facility]) Place 1 Tablet under the tongue [...] with reduced ejection fraction) ([facility]) Take 1 Tablet by mouth in the morning. 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 # [id number] Armored Car Guard: Wilda Serrano MD [phone] Type 2 diabetes mellitus wit h hemoglobin A1c goal of less than 7.0% 11/03/2006 08/15/2007 Overview: ICD-10 update of inactive term PURE HYPERCHOLESTEROLEM 11/03/200609/22 Overview: Per Lipid Taxonomy. 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 current use of ant icoagulant therapy 05/05/2006 01/23/2009 Overview: ICD-10 update of inactive term Anticoagulation management encounter 05/05/2006 10/03/2019 Unspecified viral infection, in conditions classified elsewhere and of unspecified site 06/08/2005 09/25/2007 Menopause 12/19/2001 12/27/2017 FEM STRESS INCONTINENCE 05/10/200111/23 documented as of this encounter (statuses as of 09/27/2023) Immunizations Name Administration Dates Next Due COVID-19 [...] Miscellaneous Notes * Telephone Encounter - Denise Lafleur OSA - 09/27/2023 12:44 PM EST DME order faxed to [facility] Patient at [phone] per Oneida Briggs documented in this encounter Plan of Treatment Upcoming Encounters Date Type Department Care Team (Late st Contact Info) Description 10/02/2023 3:30 PM EST Office Visit Cardiology, [facility] [address] [place] [address] Bucky Calvo PA-C [address] [place] [address] 10/06/2023 10:40 AM EST Office Visit Otolaryngology [address] [place] [address] Keely Tanner PA-C 132 [facility] [place] [address] 10/09/2023 5:40 PM EST Anticoagulation Pharmacy [address] [phone] Pharmacist2, [facility] [address] [address] 10/25/2023 10:40 AM EST Office Visit Nephrology [address] [place] [phone] Alfa Holcomb MD [address] [facility] [place] [address] 11/20/2023 1:40 PM EST Office Visit Family Practice [place] [phone] Yaya Frederick MD [address] [place] [address] 12/01/2023 2:15 PM EST Office Visit Hematology/Oncology [facility] [place] [address] [place] [address] Agustín Sullivan MD [address] [place] [address] 08/16/2024 11:00 AM EDT Cardiac Studies Cardiology, [facility] 132 [facility] [place] [address] [place] [facility] 132 [facility] [place] [address] Health Maintenance Due Date Last Done Comments Zoster Vaccines (1 of 2) 1954 Hepatitis B (1 of 3 - Risk 3-dose series) 1996 COVID-19 Vaccine ( season) 2023 09/29/2022, 09/13/2021, 01/05/2021, Additional history exists Depression Screening 02/09/2024 02/08/2023 CKD PHOS USE SMARTSET 65313 05/01/202404/22, 11/04/2022, 02/14/2019 Albumin/Creatinine Ratio 06/15/2024 023, 05/01/2023, 07/04/2022, Additional history exists CKD HGB USE SMARTSET 13494 08/29/202408/29, 08/29/2023, 08/11/2023, Additional history exists DXA Scan 11/09/2024 11/09/2022, 01/21, 11/03/2015, Additional history exists DTaP,Tdap,and Td Vaccines (3 - Td or Tdap) 06/04/2029 06/04/2019, 01/28/2019, 05/26/2008 Pneumococcal Vaccine: 65+ Years Completed 05/24/2016, 11/14/2001 VITAMIN D LEVEL ONCE IN A LIFETIME-USE SMARTSET# [id number] Completed 05/01/2023, 11/04/2022, 02/14/2019, Additional history exists [...] documented as of this encounter Care Teams Internal Investigator Relationship Specialty Start Date End Date Yaya Frederick MD [address] [place] [address] PCP - General Family Medicine 05/04/21 documented as of this encounter
--- OUTSIDE RECORDS SUMMARY | 2023-12-12 09:22 | External Medical Summary | Summary of Care ---
Author Name Unknown Organization [facility] Address [address] [place] [address] Phone [phone] Care Team Providers Care Wealth Management Manager Name Role Phone Yaya Obando MD Primary Care Provider [phone] Reason for Visit * Reason Onset Date Comments Medication Refill 09/28/2023 Encounter Details Date Type Department Care Team (Late st Contact Info) Description 09/28/2023 Refill [facility] [address] [place] [address] Yaya Obando MD [address] [place] [address] HFrEF (heart failure with reduced ejection fraction) ([facility]) Allergies Active Allergy Reactions Criticality [...] SolutionIndications: Post-nasal discharge Administer into nostril 1 [place] in the morning AND 1 [place] before bedtime. 30 mL 0 11/30/2021 Active Ipratropium [place] 0.03 % Nasal Solution Administer into each [...] Tablet (Crestor)Indications :NSTEMI (non-ST elevated myocardial infarction) ([facility]) Take 1 Tablet by mouth in the morning. 90 Tablet 3 05/18/2023 Active Nitroglycerin 0.4 MG Sublingual Tablet Sublingual (Nitrostat)Indicatio ns:NSTEMI (non-ST elevated myocardial infarction) [facility] HFrEF (heart failure with reduced ejection fraction) ([facility]) Take 1 Tablet by mouth in the morning. 90 Tablet 1 09/29/2023 Active Isosorbide Mononitrate ER 60 MG Oral Tablet Extended Release 24 Hour (Imdur)Indications:H FrEF (heart failure with reduced ejection fraction) ([facility]) Take 1 Tablet by mouth in the morning. 30 Tablet 3 07/03/2023 09/28/20 23 Discontinu ed(Refill) Clopidogrel Bisulfate 75 MG Oral Tablet (pLAVix)Indications: HFrEF (heart failure with reduced ejection fraction) ([facility]) Take 1 Tablet by mouth in the morning. 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 # [id number] Heating Unit Installer: Wilda Serrano MD [phone] Type 2 diabetes mellitus wit h hemoglobin [...] mRNA, LNP-s, No Pre serve, 2-Dose Series ([employer]) 09/13/2021,01/05/2021,12/15/2020 Covid-19, Mrna, Lnp-s, Pf, B ivalent, [...] encounter Miscellaneous Notes * Telephone Encounter - Lorelei Thompson, [facility] - 09/29/2023 6:59 AM ESTSigned Prescriptions: Disp Refills Isosorbide Mononitrate ER 60 MG Oral Table*90 Tab*1 Sig: Take 1 Tablet by mouth in the morning.Authorizing Provider: Milka OBANDO User: LORELEI THOMPSON Clopidogrel Bisulfate 75 MG Oral Tablet (p*90 Tab*1 Sig: Take 1 Tablet by mouth in the morning.Authorizing Provider: Milka OBANDO User: LORELEI THOMPSON documented in this encounter Plan of Treatment Upcoming Encounters Date Type Department Care Team (Late st Contact Info) Description 10/02/2023 3:30 PM EST Office Visit Cardiology, [facility] [address] [place] [address] Bucky Calvo PA-C [address] [place] [address] 10/06/2023 10:40 AM EST Office Visit Otolaryngology [address] [place] [phone] Keely Tanner PA-C [address] [place] [address] 10/09/2023 5:40 PM EST Anticoagulation Pharmacy [address] [phone] Pharmacist2, [facility] [address] [address] 10/25/2023 10:40 AM EST Office Visit Nephrology [address] [place] [phone] Alfa Holcomb MD 200 [place] [address] 11/20/2023 1:40 PM EST Office Visit [facility] [address] [place] [phone] Yaya Obando MD [address] [place] [address] 12/01/2023 2:15 PM EST Office Visit Hematology/Oncology [facility] 200 [facility] [place] [address] Agustín Sullivan MD 200 [facility] [place] [address] 08/16/2024 11:00 AM EDT Cardiac Studies Cardiology, [facility] 132 [facility] [place] [address] [facility] 132 [facility] [place] [address] Health Maintenance Due Date Last Done Comments Zoster Vaccines (1 of 2) 1955 Hepatitis B (1 of 3 - Risk 3-dose series) 1996 COVID-19 Vaccine (2022- season) 2023 09/29/2022, 09/13/2021, 01/05/2021, Additional history exists Depression Screening 02/09/2024 02/08/2023 CKD PHOS USE SMARTSET 26201 05/01/202404/22, 11/04/2022, 02/14/2019 Albumin/Creatinine Ratio 06/15/20242 023, 05/01/2023, 07/04/2022, Additional history exists CKD HGB USE SMARTSET 24295 08/29/202408/29, 08/29/2023, 08/11/2023, Additional history exists DXA Scan 11/09/2024 11/09/2022, 01/21, 11/03/2015, Additional history exists DTaP,Tdap,and Td Vaccines (3 - Td or Tdap) 06/04/2029 06/04/2019, 01/28/2019, 05/26/2008 Pneumococcal Vaccine: 65+ Years Completed 05/24/2016, 11/14/2001 VITAMIN D LEVEL ONCE IN A LIFETIME-USE SMARTSET# 19553 Completed 05/01/2023, 11/04/2022, 02/14/2019, Additional history exists [...] documented as of this encounter Care Teams Wealth Management Manager Relationship Specialty Start Date End Date Yaya Obando MD [address] [place] [address] PCP - General Family Medicine 05/04/21 documented as of this encounter
--- OUTSIDE RECORDS SUMMARY | 2023-12-12 09:22 | External Medical Summary | Summary of Care ---
Author Name Unknown Organization [facility] Address [address] [place] [address] Phone [phone] Care Team Providers Care Packager Machine Name Role Phone Yaya Frederick MD Primary Care Provider [phone] Reason for Visit * Reason Comments Dosage Adjustment Via Phone (anticoag Cl inic) Encounter Details Date Type Department Care Team (Latest Contact Info) Description 09/25/2023 5:40 PM EST Anticoagulation Pharmacy [address] [phone] Pharmacist2, [facility] [address] [address] S/P aortic valve replacement* Allergies Active Allergy [...] as of this encounter (statuses as of 09/25/2023) Medications Medication Sig Dispensed Refills Start Date End Date Status BENADRYL 25 MG PO TABS 1 TABLET EVERY 4 TO 6 HOURS NEEDED 0 Active GRX ANALGESIC BALM EX OINT Apply topically to affected area. 0 07/01/2013 Active Azelastine HCl 0.15 % Nasal SolutionIndications:P ost-nasal discharge Administer into nostril 1 [place] in the morning AND 1 [place] before bedtime. 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 # [id number] Pigment Pumper: Wilda Serrano MD [phone] Type 2 diabetes mellitus wit h hemoglobin A1c goal of less than 7.0% 11/03/2006 08/15/2007 Overview: ICD-10 update of inactive term PURE HYPERCHOLESTEROLEM 11/03/200609/22 Overview: Per Lipid Taxonomy. 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 05/05/2006 01/23/2009 Overview: ICD-10 update of inactive term Anticoagulation management encounter 05/05/2006 10/03/2019 Unspecified viral infection, in conditions classified elsewhere and of unspecified site 06/08/2005 09/25/2007 Menopause 12/19/2001 12/27/2017 FEM STRESS INCONTINENCE 05/10/200111/23 documented as of this encounter (statuses as of 09/25/2023) Immunizations Name Administration Dates Next Due COVID-19 mRNA, LNP-s, No Pre serve, 2-Dose Series ([email or web address]) 09/13/2021,01/05/2021,12/15/2020 Covid-19, Mrna, Lnp-s, Pf, B ivalent, [...] as of this encounter Progress Notes * Stephane Villarreal RPh - 09/25/2023 4:18 PM EST Medication Therapy Disease Management - Anticoagulation Patient: Shannon Cruz | : 1935 Patient Phone Numbers Phone call to patient to discuss today's INR result, 2.3. No answer. Left message instructing to take continue current dose of 1.25mg every day, except 0mg on Monday's. Provided toll free number requesting call back to [facility] to discuss result and schedule next INR. Will place on schedule for follow-up call tomorrow. Stephane Villarreal RPh Clinical Pharmacist 09/25/2023, 4:18 PM * Indira Pizarro, tank filler - 09/25/2023 11:12 AM EST [facility] nurse Patricia calling in today's INR 2.3. Indira Pizarro MA Harvest Worker [employer] [facility] (formerly Telepharmacy) documented in this encounter Plan of Treatment Upcoming Encounters Date Type Department Care Team ([facility] st Contact Info) Description 09/26/2023 5:40 PM EST Anticoagulation Pharmacy [address] [phone] Pharmacist2, [facility] [address] [address] 09/27/2023 11:40 AM EST Office Visit Family Practice [facility] [address] [place] [phone] Oneida Briggs PA-C [address] [place] [address] 10/02/2023 3:30 PM EST Office Visit Cardiology, [facility] [address] [place] [address] Bucky Calvo PA-C [address] [place] [address] 10/06/2023 10:40 AM EST Office Visit Otolaryngology [address] [place] [phone] Keely Tanner PA-C [address] [place] [address] 10/25/2023 10:40 AM EST Office Visit Nephrology [address] [place] [phone] Alfa Holcomb MD 200 [facility] [place] [address] 11/20/2023 1:40 PM EST Office Visit [facility] [address] [place] [phone] Yaya Frederick MD [address] [place] [address] 12/01/2023 2:15 PM EST Office Visit Hematology/Oncology [facility] 200 [facility] [place] [address] Agustín Sullivan MD 200 [facility] [place] [address] 08/16/2024 11:00 AM EDT Cardiac Studies Cardiology, [facility] 132 [place] [address] [facility] 132 [facility] [place] [address] Health Maintenance Due Date Last Done Comments Zoster Vaccines (1 of 2) 1955 Hepatitis B (1 of 3 - Risk 3-dose series) 1996 COVID-19 Vaccine ( season) 2023 09/29/2022, 09/13/2021, 01/05/2021, Additional history exists Depression Screening 02/09/2024 02/08/2023 CKD PHOS USE SMARTSET 51539 05/01/202404/22, 11/04/2022, 02/14/2019 Albumin/Creatinine Ratio 06/15/2024 023, 05/01/2023, 07/04/2022, Additional history exists CKD HGB USE SMARTSET 23615 08/29/202408/29, 08/29/2023, 08/11/2023, Additional history exists DXA Scan 11/09/2024 11/09/2022, 01/21, 11/03/2015, Additional history exists DTaP,Tdap,and Td Vaccines (3 - Td or Tdap) 06/04/2029 06/04/2019, 01/28/2019, 05/26/2008 Pneumococcal Vaccine: 65+ Years Completed 05/24/2016, 11/14/2001 VITAMIN D LEVEL ONCE IN A LIFETIME-USE SMARTSET# 35915 Completed 05/01/2023, 11/04/2022, 02/14/2019, Additional history exists [...] * OUTSIDE LAB-PT/INR (09/25/2023) INR-OUTSIDE LAB 2.3 History Per Patient LABORATORY documented in this encounter Visit Diagnoses Diagnosis S/P aortic valve replacement- Primary Heart valve replaced by other means documented in this encounter Additional Health Concerns Infection Onset Date Last Indicated Resolved Time Varicella zoster 08/01/2022 08/01/2022 documented as of this encounter Care Teams Packager Machine Relationship Specialty Start Date End Date Yaya Frederick MD [address] [place] [address] PCP - General Family Medicine 05/04/21 documented as of this encounter"
--- OUTSIDE RECORDS SUMMARY | 2023-12-12 09:22 | External Medical Summary | Summary of Care ---
Author Name Unknown Organization [facility] Address [address] [place] [address] Phone [phone] Care Team Providers Care Family Reunification Specialist Name Role Phone Yaya Frederick MD Primary Care Provider [phone] Reason for Visit * Reason Comments Follow Up Pt. Is here today fo r 2 week check up regarding being sent to ER at last visit.Pt. Is here today with son. Pt. Says she feels much better than she did 2 weeks ago. 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 30 mL 0 11/30/2021 Active Ipratropium [place] 0.03 % Nasal Solution Administer into each [...] :NSTEMI (non-ST elevated myocardial infarction) ([facility]) Take 1 Tablet by mouth in the morning. 90 Tablet 3 05/18/2023 Active Nitroglycerin 0.4 MG Sublingual Tablet Sublingual (Nitrostat)Indicatio ns:NSTEMI (non-ST elevated myocardial infarction) ([facility]) Place 1 Tablet under the tongue [...] failure with reduced ejection fraction) ([facility]) Take 1 Tablet by mouth in the morning. 30 Tablet 3 07/03/2023 Active Clopidogrel Bisulfate 75 MG Oral Tablet (pLAVix)Indications: HFrEF (heart failure with reduced ejection fraction) ([facility]) Take 1 Tablet by mouth in [...] the morning. 45 Tablet 1 08/30/2023 Active Sulfamethoxazole-Tri methoprim 400-80 MG Oral Tablet (Bactrim) Take 1 Tablet by mouth in the morning and 1 Tablet before bedtime. Do all this for 3 days. 6 Tablet 0 07/13/2023 09/27/20 Discontinu ed(Medicat ion List Clean Up) documented [...] Stent Restenosis in Drug-Eluting Stents Project # [id number] Investment Consultant: Wilda Serrano MD [phone] GENOMICS CARDIO RESEARCH OTHER*[id number] 01/09/2007 11/29/2016 Overview: Renamed Per Clinical Trials Billing Project. 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 # [id number] Investment Consultant: Wilda Serrano MD [phone] Type 2 diabetes mellitus wit h hemoglobin [...] mRNA, LNP-s, No Pre serve, 2-Dose Series ([employer]) 09/13/2021,01/05/2021,12/15/2020 Covid-19, Mrna, Lnp-s, Pf, B ivalent, [...] Sign Reading Time Taken Comments Blood Pressure 120/74 09/27/2023 11:41 AM EST Pulse 77 09/27/2023 11:41 AM EST Temperature 35.7 C (96.3 F) 09/27/2023 11:[address] Respiratory Rate 20 09/27/2023 11:41 AM EST Oxygen Saturation 99% 09/27/2023 11:41 AM EST Inhaled Oxygen Concentration - - Weight 80.4 kg (177 lb 3.2 oz) 09/27/2023 11:41 AM EST Height - - Body Mass Index 35.77 06/30/2023 1:38 PM EDT documented in this encounter Progress Notes * Oneida Briggs PA-C - 09/27/2023 12:01 PM EST Subjective: Shannon Cruz is a 88 year old female. Chief Complaint Patient presents with Follow Up Pt. Is here today for 2 week check up regarding being sent to ER at last visit. Pt. Is here today with son. Pt. Says she feels much better than she did 2 weeks ago. HPI: Rachael is an 88-year-old female with history of chronic hypoxic respiratory failure on 2 L of oxygen via nasal cannula, heart failure with reduced ejection fraction, dyslipidemia, pacer placement 2022, hypertension, CAD, atrial fibrillation, and history of aortic valve replacement, CKD stage 3 whopresents today for a hospital discharge follow-up. Patient was evaluated in our clinic on September 12 and sent to the hospital for a heart failure exacerbation. She was admitted at [facility] from 09/12 through 09/18 for acute on chronic heart failure with reduced ejection fraction. Her hospitalization was complicated by urinary tract infection. During hospitalization, patient was diuresed with IV Lasix. She reports her creatinine remained stable. Limited documentation shows creatinine at 1.9. Patient reports Cr was as low as 1.5. Following diuresis, patient was advised to resume her home dose of torsemide 20 mg daily. Has follow up with cardiology on 10/02 Patient reports she has been doing well since hospital discharge. Denies any increase in her weight. Denies any increase in her shortness a breath. Weights have been 177lb since discharge from hospital. She denies any urinary symptoms. Patient reports noticing dry mouth. She also reports her nose has been dry from her oxygen. While she was in the hospital she received humidified oxygen and did not have dryness or pain in her nose. PMH: Patient Active Problem List Diagnosis Code [...] situ Z95.0 Sinus node dysfunction ([facility]) I49.5 Lumbar spinal stenosis M48.061 Essential thrombocythemia ([facility]) D47.3 Hx of nonmelanoma skin cancer Z85.828 Bilateral leg edema R60.0 Paroxysmal atrial fibrillation ([facility]) I48.0 Obstructive sleep apnea of adult G47.33 Hypertensive kidney disease with stage 3a chronic kidney disease ([facility]) I12.9, N18.31 Hx of actinic keratosis Z87.2 Chronic hypoxemic respiratory failure ([facility]) J96.11 RADHA (acute kidney injury) ([facility]) N17.9 HFrEF (heart failure with reduced ejection fraction) ([facility]) I50.20 Current Outpatient Medications Medication Sig Dispense Refill BENADRYL 25 MG PO TABS 1 TABLET EVERY 4 TO 6 HOURS NEEDED GRX ANALGESIC BALM EX OINT Apply topically to affected area. Azelastine HCl 0.15 % Nasal Solution Administer into nostril 1 [place] in the morning AND 1 [place] before bedtime. 30 mL 0 Ipratropium [place] 0.03 % Nasal Solution Administer into each [...] mouth in the morning. 45 Tablet 1 Docusate Sodium 100 MG Oral Capsule (Colace) [...] shortness of breath. 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 | Check-out note: Please fax DME to [facility] Plan: Medications reviewed and unchanged from prior to hospitalization. Patient remains on torsemide 20 mg daily. Patient's renal function improved slightly. Patient is experiencing dryness and pain in her nose from her oxygen. DME order placed for humidifier. Chronic medical problems: CKD: renal function slightly improved, continues to follow with nephrology CHF without acute exacerbation: patient's weights have remained stable at 177lb. Bruce continues to monitor weight dialy. Continue torsemide 20mg daily. Continue to limit sodium intake. Fluid restrict per cardiology. (Patient recently increased her fluid intake to near upper limits of cardiology r ecommendation and Cr. Improved) HFrEF, CAD, chronic atrial fibrillation,, s/p Aortic Valve Replacement, HTN: Patient has follow-up appointment with Cardiology on 10/02 patient on Warfarin - followed by [facility]. On plavix. losartan 25mg daily Metoprolol succinate 100mg BID Thrombocytopenia: hydroxyurea Anxiety: Buspar Dyslipidemia: Rosuvastatin Oneida Briggs PA-C documented in this encounter Nursing Notes * Yani Hernandez LPN - 09/27/2023 11:41 AM EST The patient has been properly identified by confirmation of name and date of . Chief Complaint Patient presents with Follow Up Pt. Is here today for 2 week check up regarding being sent to ER at last visit. Pt. Is here today with son. Pt. Says she feels much better than she did 2 weeks ago. documented in this encounter Plan of Treatment Upcoming Encounters Date Type Department Care Team ([facility] st Contact Info) Description 10/02/2023 3:30 PM EST Office Visit Cardiology, [facility] [address] [place] [address] Bucky Calvo PA-C [address] [place] [address] 10/06/2023 10:40 AM EST Office Visit Otolaryngology [address] [place] [phone] Keely Tanner PA-C [address] [place] [address] 10/09/2023 5:40 PM EST Anticoagulation Pharmacy [address] [phone] Pharmacist2, [facility] [address] [address] 10/25/2023 10:40 AM EST Office Visit Nephrology [address] [place] [phone] Alfa Holcomb MD 200 [place] [address] 11/20/2023 1:40 PM EST Office Visit Family Practice [facility] [address] [place] [phone] Yaya Frederick MD [address] [place] [address] 12/01/2023 2:15 PM EST Office Visit [facility]ematology[facility]On[facility] 200 [facility] [place] [address] Agustín Sullivan MD 200 [facility] [place] [address] 08/16/2024 11:00 AM EDT Cardiac Studies Cardiology, [facility] 132 [facility] [place] [address] [facility] 132 [facility] [place] [address] Health Maintenance Due Date Last Done Comments Zoster Vaccines (1 of 2) 1954 Hepatitis B (1 of 3 - Risk 3-dose series) 1996 COVID-19 Vaccine ( season) 2023 09/29/2022, 09/13/2021, 01/05/2021, Additional history exists Depression Screening 02/09/2024 02/08/2023 CKD PHOS USE SMARTSET 52923 05/01/202404/22, 11/04/2022, 02/14/2019 Albumin/Creatinine Ratio 06/15/20242 023, 05/01/2023, 07/04/2022, Additional history exists CKD HGB USE SMARTSET 94627 08/29/202408/29, 08/29/2023, 08/11/2023, Additional history exists DXA Scan 11/09/2024 11/09/2022, 01/21, 11/03/2015, Additional history exists DTaP,Tdap,and Td Vaccines (3 - Td or Tdap) 06/04/2029 06/04/2019, 01/28/2019, 05/26/2008 Pneumococcal Vaccine: 65+ Years Completed 05/24/2016, 11/14/2001 VITAMIN D LEVEL ONCE IN A LIFETIME-USE SMARTSET# 11774 Completed 05/01/2023, 11/04/2022, 02/14/2019, Additional history exists [...] failure with reduced ejection fraction) (HCC)- Primary Chronic hypoxemic respiratory failure (HCC) Chronic respiratory 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
--- OUTSIDE RECORDS SUMMARY | 2023-12-12 09:22 | External Medical Summary | Summary of Care ---
Author Name Unknown Organization [facility] Address [address] [place] [address] Phone [phone] Care Team Providers Care Creative Services Specialist Name Role Phone Yaya Frederick MD Primary Care Provider [phone] Encounter Details Date Type Department Care Team (Late st Contact Info) Description 09/25/2023 Result Scan Unspecified Department Raquel Alcantara, [address] [phone] <No scans attached> Allergies Active [...] SolutionIndications:P ost-nasal discharge Administer into nostril 1 [place] in the morning AND 1 [place] before bedtime. 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 # [id number] Dump Attendant: Wilda Serrano MD [phone] Type 2 diabetes mellitus wit h hemoglobin [...] Upcoming Encounters Date Type Department Care Team ([facility] Contact Info) Description 09/27/2023 11:40 AM EST Office Visit Family Practice [address] [phone] Oneida Briggs PA-C [address] [place] [address] 10/02/2023 3:30 PM EST Office Visit Cardiology, [facility] [address] [place] [address] Bucky Calvo PA-C [address] [place] [address] 10/06/2023 10:40 AM EST Office Visit Otolaryngology [address] [place] [phone] Keely Tanner PA-C 132 [facility] [place] [address] 10/09/2023 5:40 PM EST Anticoagulation Pharmacy [facility] [address] [place] [phone] Pharmacist2, [facility] [address] [place] [address] 10/25/2023 10:40 AM EST Office Visit Nephrology [facility] 68 [facility] [address] [place] [address] Alfa Holcomb MD 200 [facility] [place] [address] 11/20/2023 1:40 PM EST Office Visit Family Practice [facility] [address] [place] [phone] Yaya Frederick MD [address] [place] [address] 12/01/2023 2:15 PM EST Office Visit Hematology/Oncology [facility] 200 [facility] [place] [address] Agustín Sullivan MD 200 [facility] [place] [address] 08/16/2024 11:00 AM EDT Cardiac Studies Cardiology, [facility] 132 [facility] [place] [address] [facility] [address] [facility] [place] [address] Health Maintenance Due Date Last Done Comments Zoster Vaccines (1 of 2) 1954 Hepatitis B (1 of 3 - Risk 3-dose series) 1996 COVID-19 Vaccine (2022- season) 2023 09/29/2022, 09/13/2021, 01/05/2021, Additional history exists Depression Screening 02/09/2024 02/08/2023 CKD PHOS USE SMARTSET 29749 05/01/202404/22, 11/04/2022, 02/14/2019 Albumin/Creatinine Ratio 06/15/2024 023, 05/01/2023, 07/04/2022, Additional history exists CKD HGB USE SMARTSET 85226 08/29/202408/29, 08/29/2023, 08/11/2023, Additional history exists DXA Scan 11/09/2024 11/09/2022, 01/21, 11/03/2015, Additional history exists DTaP,Tdap,and Td Vaccines (3 - Td or Tdap) 06/04/2029 06/04/2019, 01/28/2019, 05/26/2008 Pneumococcal Vaccine: 65+ Years Completed 05/24/2016, 11/14/2001 VITAMIN D LEVEL ONCE IN A LIFETIME-USE SMARTSET# [id number] Completed 05/01/2023, 11/04/2022, 02/14/2019, Additional history exists [...] Date/Time Associated Diagnosis Comments OUTSIDE LAB RESULTS 09/25/2023 documented in this encounter Results * OUTSIDE LAB RESULTS (09/25/2023) 09/25/2023 Raquel Alcantara [facility] documented in this encounter Additional Health Concerns Infection Onset Date Last Indicated Resolved Time Varicella zoster 08/01/2022 08/01/2022 documented as of this encounter Care Teams Creative Services Specialist Relationship Specialty Start Date End Date Yaya Frederick MD [address] [place] [address] PCP - General Family Medicine 05/04/21 documented as of this encounter
--- OUTSIDE RECORDS SUMMARY | 2023-12-12 09:22 | External Medical Summary | Summary of Care ---
Author Name Unknown Organization [facility] Address [address] [place] [address] Phone [phone] Care Team Providers Care Fleet Operations Manager Name Role Phone Yaya Frederick MD Primary Care Provider [phone] Reason for Visit * Reason Onset Date Comments FYI 09/19/2023 Order Request 09/19/2023 URGENT Encounter Details Date Type Department Care Team ([facility] st Contact Info) Description 09/19/2023 Telephone [facility] [address] [place] [address] Yaya Frederick MD [address] [place] [address] FYI; Order Request (URGENT) Allergies Active Allergy Reactions Criticality Noted Date [...] as of this encounter (statuses as of 09/21/2023) Medications Medication Sig Dispensed Refills Start Date End Date Status BENADRYL 25 MG PO TABS 1 TABLET EVERY 4 TO 6 HOURS NEEDED 0 Active GRX ANALGESIC BALM EX OINT Apply topically to affected area. 0 07/01/2013 Active Azelastine HCl 0.15 % Nasal SolutionIndications:P ost-nasal discharge Administer into nostril 1 [place] in the morning AND 1 [place] before bedtime. 30 mL 0 11/30/2021 Active Ipratropium [place] 0.03 % Nasal Solution Administer into each [...] NSTEMI (non-ST elevated myocardial infarction) ([facility]) Take 1 Tablet by mouth in the morning. 90 Tablet 3 05/18/2023 Active Nitroglycerin 0.4 MG Sublingual Tablet Sublingual (Nitrostat)Indication s:NSTEMI (non-ST elevated myocardial infarction) ([facility]) Place 1 Tablet under the [...] failure with reduced ejection fraction) ([facility]) Take 1 Tablet by mouth in the morning. 30 Tablet 3 07/03/2023 Active Clopidogrel Bisulfate 75 MG Oral Tablet (pLAVix)Indications:H FrEF (heart failure with reduced ejection fraction) ([facility]) Take 1 Tablet by mouth [...] one tablet daily as directed by the [facility] clinic 100 Tablet 3 08/31/2023 Active Losartan Potassium 25 MG Oral Tablet (Cozaar) Take 0.5 Tablets by mouth in the morning. 45 Tablet 1 08/30/2023 Active documented as of this encounter (statuses as of 09/21/2023) Active Problems Problem Noted Date Diagnosed Date [...] as of this encounter (statuses as of 09/21/2023) Resolved Problems Problem Noted Date Diagnosed Date [...] Stent Restenosis in Drug-Eluting Stents Project # [id number] Internet Technology Manager: Wilda Serrano MD [phone] GENOMICS CARDIO RESEARCH OTHER*[id number] 01/09/2007 11/29/2016 Overview: Renamed Per Clinical Trials Billing Project. 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 # [id number] Internet Technology Manager: Wilda Serrano MD [phone] Type 2 diabetes mellitus wit h hemoglobin A1c goal of less than 7.0% 11/03/2006 08/15/2007 Overview: ICD-10 update of inactive term PURE HYPERCHOLESTEROLEM 11/03/200609/22 Overview: Per Lipid Taxonomy. 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 05/05/2006 01/23/2009 Overview: ICD-10 update of inactive term Anticoagulation management encounter 05/05/2006 10/03/2019 Unspecified viral infection, in conditions classified elsewhere and of unspecified site 06/08/2005 09/25/2007 Menopause 12/19/2001 12/27/2017 FEM STRESS INCONTINENCE 05/10/200111/23 documented as of this encounter (statuses as of 09/21/2023) Immunizations Name Administration Dates Next Due COVID-19 mRNA, LNP-s, No Pre serve, 2-Dose Series ([employer]) 09/13/2021,01/05/2021,12/15/2020 Covid-19, Mrna, Lnp-s, Pf, B ivalent, 30 Mcg, IM, 12 yrs and above ([employer]) 09/29/2022 H1N1 2009 Influenza, IM 10/08/2009 Pneumococcal [...] Notes * Telephone Encounter - Wilda Plata RPh - 09/21/2023 1:29 PM EST Noted. Will place phone call on schedule in event that they are able to obtain INR today. Will otherwise follow up next week for results as planned. Wilda Plata, PharmD, [facility] Clinical Pharmacist 09/21/2023, 1:32 PM * Telephone Encounter - Neyda Lafleur, GAVIN - 09/21/2023 1:18 PM EST Called them and told them I am refaxing to them now at [phone] she said she would watch for them * Telephone Encounter - Richard Turcios LPN - 09/21/2023 11:55 AM EST Does anyone have these orders? * Telephone Encounter - Sherry Robert OSA - 09/21/2023 11:09 AM EST Angela from [facility] is with the patient now and has never heard back about the order. Please advise BJ * Telephone Encounter - Wilda Plata [facility] - 09/19/2023 4:22 PM EST Reason for call: Start of Care for [facility] post hospital discharge next week, will be faxing orders over. Additionally, would like to know if PCP would like [facility] to complete INR. If so, would need order faxed over to [phone]. Noted. Will send orders (fax #[phone]) for PT/INR next week - appx MondaySep 26, or on date of nurse visit. Standing order for pt/inr. Please draw or completed fingerstick pt/inr as ordered by [facility] Pharmacist Results to [facility] Ordering Provider Dr. Yaya Frederick NPI# [id number] [facility] will follow up with patient in 1 week, once results are received. Please note - HH - can complete PT/INR via Fingerstick UNLESS Pt/INR results are >5 - then IMMIGRATION MANAGER will need to be completed for verification of results. INR can be completed on date that nurse will visit patient, please adjust "draw/fingerstick date" as needed. Wilda Plata, PharmD, [facility] Clinical Pharmacist 09/19/2023, 4:25 PM * Telephone Encounter - Yaya Frederick MD - 09/19/2023 3:19 PM EST June, Kindly see the request below * Telephone Encounter - Kiley Agustin OSA - 09/19/2023 1:05 PM EST Reason for call: Start of Care for [facility] post hospital discharge next week, will be faxing orders over. Additionally, would like to know if PCP would like [facility] to complete INR. If so, would need order faxed over to [phone]. documented in this encounter Plan of Treatment Upcoming Encounters Date Type Department Care Team (Late st Contact Info) Description 09/26/2023 5:40 PM EST Anticoagulation Pharmacy [address] [phone] Pharmacist2, [facility] [address] [address] 09/27/2023 11:40 AM EST Office Visit Family Practice [address] [phone] Oneida Briggs PA-C [address] [place] [address] 10/02/2023 3:30 PM EST Office Visit Cardiology, [facility] [address] [place] [address] Bucky Calvo PA-C [address] [place] [address] 10/06/2023 10:40 AM EST Office Visit Otolaryngology [facility] [address] [facility] [address] [place] [phone] Keely Tanner PA-C [facility] [address] 10/25/2023 10:40 AM EST Office Visit Nephrology [facility] [address] [facility] [address] [place] [phone] Alfa Holcomb MD 200 [facility] [place] [address] 11/20/2023 1:40 PM EST Office Visit Family Practice [facility] [address] [place] [phone] Yaya Frederick MD [address] [place] [address] 12/01/2023 2:15 PM EST Office Visit Hematology/Oncology [facility] 200 [facility] [place] [address] Agustín Sullivan MD 200 [facility] [place] [address] 08/16/2024 11:00 AM EDT Cardiac Studies Cardiology, [facility] 132 [facility] [place] [address] [facility] 132 [facility] [place] [address] Scheduled Orders Name Type Priority Associated Diagnoses Orde r Schedule INR FINGERSTICK, POINT OF CARE Point of Care Testing - Unsolicited Results STAT Anticoagulation management encounter Every 2 Weeks for 26 Occurrences starting 09/19/2023 until 09/19/2024 Health Maintenance Due Date Last Done Comments Zoster Vaccines (1 of 2) 1954 Hepatitis B (1 of 3 - Risk 3-dose series) 1996 COVID-19 Vaccine ( season) 2023 09/29/2022, 09/13/2021, 01/05/2021, Additional history exists Depression Screening 02/09/2024 02/08/2023 CKD PHOS USE SMARTSET 12137 05/01/202404/22, 11/04/2022, 02/14/2019 Albumin/Creatinine Ratio 06/15/2024 023, 05/01/2023, 07/04/2022, Additional history exists CKD HGB USE SMARTSET 32087 08/29/202408/29, 08/29/2023, 08/11/2023, Additional history exists DXA Scan 11/09/2024 11/09/2022, 01/21, 11/03/2015, Additional history exists DTaP,Tdap,and Td Vaccines (3 - Td or Tdap) 06/04/2029 06/04/2019, 01/28/2019, 05/26/2008 Pneumococcal Vaccine: 65+ Years Completed 05/24/2016, 11/14/2001 VITAMIN D LEVEL ONCE IN A LIFETIME-USE SMARTSET# [id number] Completed 05/01/2023, 11/04/2022, 02/14/2019, Additional history exists [...] as of this encounter Visit Diagnoses Diagnosis Anticoagulation management encounter- Primary Encounter for therapeutic drug monitoring [facility] current use of anticoagulant therapy documented in this encounter Additional Health Concerns Infection Onset Date Last Indicated Resolved Time Varicella zoster 08/01/2022 08/01/2022 documented as of this encounter Care Teams Fleet Operations Manager Relationship Specialty Start Date End Date Yaya Frederick MD [address] [place] [address] PCP - General Family Medicine 05/04/21 documented as of this encounter
--- OUTSIDE RECORDS SUMMARY | 2023-12-12 09:23 | External Medical Summary | Summary of Care ---
Author Name Unknown Organization [facility] Address [address] [place] [address] Phone [phone] Care Team Providers Care Safety Instructor Name Role Phone Yaya Frederick MD Primary Care Provider [phone] Reason for Visit * Reason Onset Date Comments FYI 09/19/2023 Order Request 09/19/2023 URGENT Encounter Details Date Type Department Care Team ([facility] st Contact Info) Description 09/19/2023 Telephone [facility] [address] [place] [address] Yaya Frederick MD [address] [place] [address] FYI; Order Request (URGENT) Allergies Active Allergy [...] SolutionIndications:P ost-nasal discharge Administer into nostril 1 [place] in the morning AND 1 [place] before bedtime. 30 mL 0 11/30/2021 Active Ipratropium [place] 0.03 % Nasal Solution Administer into each [...] Tablet (Crestor)Indications: NSTEMI (non-ST elevated myocardial infarction) ([facility]) Take 1 Tablet by mouth in the morning. 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 05/05/2006 01/23/2009 Overview: ICD-10 update of inactive term Anticoagulation management encounter 05/05/2006 10/03/2019 Unspecified viral infection, in conditions classified elsewhere and of unspecified site 06/08/2005 09/25/2007 Menopause 12/19/2001 12/27/2017 FEM STRESS INCONTINENCE 05/10/200111/23 documented as of this encounter (statuses as of 09/21/2023) Immunizations Name Administration Dates Next Due COVID-19 mRNA, LNP-s, No Pre serve, 2-Dose Series ([employer]) 09/13/2021,01/05/2021,12/15/2020 Covid-19, Mrna, Lnp-s, Pf, B ivalent, 30 Mcg, IM, 12 yrs and above ([employer]) 09/29/2022 H1N1 2009 Influenza, IM 10/08/2009 Pneumococcal [...] encounter Miscellaneous Notes * Telephone Encounter - Richard Turcios LPN - 09/21/2023 11:55 AM EST Does anyone have these orders? * Telephone Encounter - Sherry Robert OSA - 09/21/2023 11:09 AM EST Angela from [facility] home health is with the patient now and has never heard back about the order. Please advise BJ * Telephone Encounter - Wilda Plata [facility] - 09/19/2023 4:22 PM EST Reason for call: Start of Care for [facility] Home Health post hospital discharge next week, will be faxing orders over. Additionally, would like to know if PCP would like [facility] to complete INR. If so, would need order faxed over to [phone]. Noted. Will send orders (fax #[phone]) for PT/INR next week - appx MondaySep 26, or on date of nurse visit. Standing order for pt/inr. Please draw or completed fingerstick pt/inr as ordered by [facility] Pharmacist Results to [facility]tico[facility] Ordering Provider Dr. Yaya Frederick NPI# [id number] [facility] will follow up with patient in 1 week, once results are received. Please note - HH - can complete PT/INR via Fingerstick UNLESS Pt/INR results are >5 - then WIDE LOAD ESCORT will need to be completed for verification of results. INR can be completed on date that nurse will visit patient, please adjust "draw/fingerstick date" as needed. Wilda Plata, PharmD, [facility] Clinical Pharmacist 09/19/2023, 4:25 PM * Telephone Encounter - Yaya Frederick MD - 09/19/2023 3:19 PM EST Carlene Watkins see the request below * Telephone Encounter - Kiley Agustin OSA - 09/19/2023 1:05 PM EST Reason for call: Start of Care for [facility] Home Health post hospital discharge next week, will be faxing orders over. Additionally, would like to know if PCP would like [facility] hospital to complete INR. If so, would need order faxed over to [phone]. documented in this encounter Plan of Treatment Upcoming Encounters Date Type Department Care Team ([facility] Contact Info) Description 09/26/2023 5:40 PM EST Anticoagulation Pharmacy [address] [phone] Pharmacist2, [facility] [address] [address] 09/27/2023 11:40 AM EST Office Visit [address] [phone] Oneida Briggs PA-C [address] [place] [address] 10/02/2023 3:30 PM EST Office Visit Cardiology, [facility] [address] [place] [address] Bucky Calvo PA-C [address] [place] [address] 10/06/2023 10:40 AM EST Office Visit Otolaryngology [address] [place] [phone] Keely Tanner PA-C [address] [place] [address] 10/25/2023 10:40 AM EST Office Visit Nephrology [address] [place] [phone] Alfa Holcomb MD 200 [place] [address] 11/20/2023 1:40 PM EST Office [place] [address] [facility] [place] [phone] Yaya Frederick MD [facility] [place] [address] 12/01/2023 2:15 PM EST Office Visit Hematology/Oncology [facility] [address] Agustín Sullivan MD [facility] [address] 08/16/2024 11:00 AM EDT Cardiac Studies Cardiology, [facility] 132 [facility] [address] [facility] 132 [facility] [place] [address] Scheduled Orders Name Type Priority Associated Diagnoses [...] Screening 02/09/2024 02/08/2023 CKD PHOS USE SMARTSET 96708 05/01/202404/22, 11/04/2022, 02/14/2019 Albumin/Creatinine Ratio 06/15/2024 023, 05/01/2023, 07/04/2022, Additional history exists CKD HGB USE SMARTSET 16812 08/29/202408/29, 08/29/2023, 08/11/2023, Additional history exists DXA Scan 11/09/2024 11/09/2022, 01/21, 11/03/2015, Additional history exists DTaP,Tdap,and Td Vaccines (3 - Td or Tdap) 06/04/2029 06/04/2019, 01/28/2019, 05/26/2008 Pneumococcal Vaccine: 65+ Years Completed 05/24/2016, 11/14/2001 VITAMIN D LEVEL ONCE IN A LIFETIME-USE SMARTSET# [id number] Completed 05/01/2023, 11/04/2022, 02/14/2019, Additional history exists [...] encounter- 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
--- OUTSIDE RECORDS SUMMARY | 2023-12-12 09:23 | External Medical Summary | Summary of Care ---
Author Name Unknown Organization [facility] Address [address] [place] [address] Phone [phone] Care Team Providers Care Agronomy Location Manager Name Role Phone Yaya Frederick MD Primary Care Provider [phone] Reason for Visit * Reason Onset Date Comments FYI 09/19/2023 Order Request 09/19/2023 Encounter Details Date Type Department Care Team ([facility] st Contact Info) Description 09/19/2023 Telephone [facility] [address] [place] [address] Yaya Frederick MD [address] [place], [place] [phone] FYI; Order Request Allergies Active Allergy Reactions Criticality Noted [...] as of this encounter (statuses as of 09/19/2023) Medications Medication Sig Dispensed Refills Start Date End Date Status BENADRYL 25 MG PO TABS 1 TABLET EVERY 4 TO 6 HOURS NEEDED 0 Active GRX ANALGESIC BALM EX OINT Apply topically to affected area. 0 07/01/2013 Active Azelastine HCl 0.15 % Nasal SolutionIndications:P ost-nasal discharge Administer into nostril 1 [place] in the morning AND 1 [place] before bedtime. 30 mL 0 11/30/2021 Active Ipratropium [place] 0.03 % Nasal Solution Administer into each [...] Oral Capsule (Hydrea)Indications:E ssential thrombocythemia ([facility]) Take 1 capsule by mouth 5 [...] [facility] Tablet 3 08/31/2023 Active Losartan Potassium 25 MG Oral Tablet (Cozaar) Take 0.5 Tablets by mouth in the morning. 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 05/05/2006 01/23/2009 Overview: ICD-10 update of inactive term Anticoagulation management encounter 05/05/2006 10/03/2019 Unspecified viral infection, in conditions classified elsewhere and of unspecified site 06/08/2005 09/25/2007 Menopause 12/19/2001 12/27/2017 FEM STRESS INCONTINENCE 05/10/200111/23 documented as of this encounter (statuses as of 09/19/2023) Immunizations Name Administration Dates Next Due COVID-19 mRNA, LNP-s, No Pre serve, 2-Dose Series ([place]) 09/13/2021,01/05/2021,12/15/2020 Covid-19, Mrna, Lnp-s, Pf, B ivalent, [...] Notes * Telephone Encounter - Wilda Plata, [facility] - 09/19/2023 4:22 PM EST Reason for call: Start of Care for [facility] Home Health post hospital discharge next week, will be faxing orders over. Additionally, would like to know if PCP would like [facility] to complete INR. If so, would need order faxed over to [phone]. Noted. Will send orders (fax #[phone]) for PT/INR next week - appx MondaySep 26, or on date of nurse visit. Standing order for pt/inr. Please draw or completed fingerstick pt/inr as ordered by [facility] Pharmacist Results to [facility] Ordering Provider Dr. Yaya Frederick NPI# [id number] [facility] will follow up with patient in 1 week, once results are received. Please note - HH - can complete PT/INR via Fingerstick UNLESS Pt/INR results are >5 - then CUT OFF SAWYER SHINGLE MILL will need to be completed for verification of results. INR can be completed on date that nurse will visit patient, please adjust "draw/fingerstick date" as needed. Wilda Plata, Krystyna, [facility] Clinical Pharmacist 09/19/2023, 4:25 PM * Telephone Encounter - Yaya Frederick MD - 09/19/2023 3:19 PM EST June, Kindly see the request below * Telephone Encounter - Kiley Agustin OSA - 09/19/2023 1:05 PM EST Reason for call: Start of Care for [facility] post hospital discharge next week, will be faxing orders over. Additionally, would like to know if PCP would like [facility] to complete INR. If so, would need order faxed over to [phone]. documented in this encounter Plan of Treatment Upcoming Encounters Date Type Department Care Team ([facility] st Contact Info) Description 09/26/2023 5:40 PM EST Anticoagulation Pharmacy [address] [phone] Pharmacist2, [facility] [address] [address] 09/27/2023 11:40 AM EST Office Visit Family [address] [phone] Oneida Briggs PA-C [address] [place] [address] 10/02/2023 3:30 PM EST Office Visit Cardiology, [facility] [address] [facility] [place] [address] Bucky Calvo PA-C [address] [place] [address] 10/06/2023 10:40 AM EST Office Visit Otolaryngology [address] [place] [address] Keely Tanner PA-C [address] [place] [address] 10/25/2023 10:40 AM EST Office Visit Nephrology [address] [place] [phone] Alfa Holcomb MD [address] [place] [address] 11/20/2023 1:40 PM EST Office Visit Family Practice [address] [phone] Yaya Frederick MD [address] [place] [address] 12/01/2023 2:15 PM EST Office Visit [facility]ematology[facility]On[facility] [address] [place] [address] Agustín Sullivan MD [address] [place] [address] 08/16/2024 11:00 AM EDT Cardiac Studies Cardiology, [facility] [place] [address] [place] Carlson [facility] [address] [place] [address] Scheduled Orders Name Type Priority Associated Diagnoses [...] Screening 02/09/2024 02/08/2023 CKD PHOS USE SMARTSET 67919 05/01/202404/22, 11/04/2022, 02/14/2019 Albumin/Creatinine Ratio 06/15/2024 023, 05/01/2023, 07/04/2022, Additional history exists CKD HGB USE SMARTSET 37559 08/29/202408/29, 08/29/2023, 08/11/2023, Additional history exists DXA Scan 11/09/2024 11/09/2022, 01/21, 11/03/2015, Additional history exists DTaP,Tdap,and Td Vaccines (3 - Td or Tdap) 06/04/2029 06/04/2019, 01/28/2019, 05/26/2008 Pneumococcal Vaccine: 65+ Years Completed 05/24/2016, 11/14/2001 VITAMIN D LEVEL ONCE IN A LIFETIME-USE SMARTSET# [id number] Completed 05/01/2023, 11/04/2022, 02/14/2019, Additional history exists [...] encounter- Primary Encounter for therapeutic drug monitoring 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
--- OUTSIDE RECORDS SUMMARY | 2023-12-12 09:23 | External Medical Summary | Summary of Care ---
Author Name Unknown Organization [facility] Address [address] [place] [address] Phone [phone] Care Team Providers Care Weekday Babysitter Name Role Phone Yaya Frederick MD Primary Care Provider [phone] Reason for Visit * Reason Onset Date Comments FYI 09/19/2023 Order Request 09/19/2023 URGENT Encounter Details Date Type Department Care Team ([facility] st Contact Info) Description 09/19/[address] [facility] [address] [place] [address] Yaya Frederick MD [address] [place] [phone] FYI; Order Request (URGENT) Allergies Active Allergy [...] SolutionIndications:P ost-nasal discharge Administer into nostril 1 [place] in the morning AND 1 [place] before bedtime. 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 05/05/2006 01/23/2009 Overview: ICD-10 update of inactive term Anticoagulation management encounter 05/05/2006 10/03/2019 Unspecified viral infection, in conditions classified elsewhere and of unspecified site 06/08/2005 09/25/2007 Menopause 12/19/2001 12/27/2017 FEM STRESS INCONTINENCE 05/10/200111/23 documented as of this encounter (statuses as of 09/21/2023) Immunizations Name Administration Dates Next Due COVID-19 mRNA, LNP-s, No Pre serve, 2-Dose Series ([employer]) 09/13/2021,01/05/2021,12/15/2020 Covid-19, Mrna, Lnp-s, Pf, B ivalent, 30 Mcg, IM, 12 yrs and above ([employer]) 09/29/2022 H1N1 2009 Influenza, IM 10/08/2009 Pneumococcal [...] encounter Miscellaneous Notes * Telephone Encounter - Sherry Robert OSA - 09/21/2023 11:09 AM EST Angela from [facility] home health is with the patient now and has never heard back about the order. Please advise BJ * Telephone Encounter - Wilda Plata [facility] - 09/19/2023 4:22 PM EST Reason for call: Start of Care for [facility] Home Health post hospital discharge next week, will be faxing orders over. Additionally, would like to know if PCP would like [facility] to complete INR. If so, would need order faxed over to [phone]. Noted. Will send orders (fax #[phone]) for PT/INR next week - appx MondaySep 26, or on date of nurse visit. Standing order for pt/inr. Please draw or completed fingerstick pt/inr as ordered by [facility] Pharmacist Results to [facility] Anticoagulation Clinic Ordering Provider Dr. Yaya Frederick NPI# [id number] [facility] will follow up with patient in 1 week, once results are received. Please note - HH - can complete PT/INR via Fingerstick UNLESS Pt/INR results are >5 - then SAFETY ENGINEER will need to be completed for verification of results. INR can be completed on date that nurse will visit patient, please adjust "draw/fingerstick date" as needed. Wilda Plata, ChinaD, [facility] Clinical Pharmacist 09/19/2023, 4:25 PM Electronically signed by Wilda Plata [facility] at 09/19/2023 4:28 PM EST * Telephone Encounter - Yaya Frederick MD - 09/19/2023 3:19 PM EST June, Kindly see the request below * Telephone Encounter - Kiley Agustin OSA - 09/19/2023 1:05 PM EST Reason for call: Start of Care for [facility] Home Health post hospital discharge next week, will be faxing orders over. Additionally, would like to know if PCP would like [facility] to complete INR. If so, would need order faxed over to [phone]. documented in this encounter Plan of Treatment Upcoming Encounters Date Type Department Care Team (Late st Contact Info) Description 09/26/2023 5:40 PM EST Anticoagulation Pharmacy [address] [phone] Pharmacist2, [facility] [address] [address] 09/27/2023 11:40 AM EST Office Visit [address] [phone] Oneida Briggs PA-C [address] [place] [address] 10/02/2023 3:30 PM EST Office Visit Cardiology, [facility] [address] [place] [address] Bucky Calvo PA-C [address] [place] [address] 10/06/2023 10:40 AM EST Office Visit Otolaryngology [address] [place] [phone] Keely Tanner PA-C [address] [place] [address] 10/25/2023 10:40 AM EST Office Visit Nephrology [address] [place] [phone] Alfa Holcomb MD 200 [facility] [place] [address] 11/20/2023 1:40 PM EST Office Visit [address] [phone] Yaya Frederick MD [address] [place] [address] 12/01/2023 2:15 PM EST Office Visit Hematology/Oncology [facility] [place] 200 [facility] [place] [address] Agustín Sullivan MD 200 [facility] [place] [address] 08/16/2024 11:00 AM EDT Cardiac Studies Cardiology, [facility] [address] [facility] [address] [employer] [employer] [place] [address] Scheduled Orders Name Type Priority Associated Diagnoses [...] Screening 02/09/2024 02/08/2023 CKD PHOS USE SMARTSET 08898 05/01/202404/22, 11/04/2022, 02/14/2019 Albumin/Creatinine Ratio 06/15/2024 023, 05/01/2023, 07/04/2022, Additional history exists CKD HGB USE SMARTSET 57530 08/29/202408/29, 08/29/2023, 08/11/2023, Additional history exists DXA Scan 11/09/2024 11/09/2022, 01/21, 11/03/2015, Additional history exists DTaP,Tdap,and Td Vaccines (3 - Td or Tdap) 06/04/2029 06/04/2019, 01/28/2019, 05/26/2008 Pneumococcal Vaccine: 65+ Years Completed 05/24/2016, 11/14/2001 VITAMIN D LEVEL ONCE IN A LIFETIME-USE SMARTSET# [id number] Completed 05/01/2023, 11/04/2022, 02/14/2019, Additional history exists [...] encounter- Primary Encounter for therapeutic drug monitoring nursing home current use of anticoagulant therapy documented in this encounter Additional Health Concerns Infection Onset Date Last Indicated Resolved Time Varicella zoster 08/01/2022 08/01/2022 documented as of this encounter Care Teams Weekday Babysitter Relationship Specialty Start Date End Date Yaya Frederick MD [address] [place] [address] PCP - General Family Medicine 05/04/21 documented as of this encounter
--- OUTSIDE RECORDS SUMMARY | 2023-12-12 09:23 | External Medical Summary | Summary of Care ---
Author Name Unknown Organization [facility] Address [address] [place] [address] Phone [phone] Care Team Providers Care Transactional Paralegal Name Role Phone Yaya Frederick MD Primary Care Provider [phone] Reason for Visit * Reason Onset Date Comments FYI 09/19/2023 Order Request 09/19/2023 URGENT Encounter Details Date Type Department Care Team ([facility] st Contact Info) Description 09/19/[address] [facility] [place] [address] [place] [address] Yaya Frederick MD [address] [place] [address] FYI; Order Request (URGENT) Allergies Active Allergy [...] SolutionIndications:P ost-nasal discharge Administer into nostril 1 [place] in the morning AND 1 [place] before bedtime. 30 mL 0 11/30/2021 Active Ipratropium [place] 0.03 % Nasal Solution Administer into [...] Tablet (Crestor)Indications: NSTEMI (non-ST elevated myocardial infarction) ([facility]) Take 1 Tablet by mouth in the morning. 90 Tablet 3 05/18/2023 Active Nitroglycerin 0.4 MG Sublingual Tablet Sublingual (Nitrostat)Indication s:NSTEMI (non-ST elevated myocardial infarction) ([facility]) Place 1 Tablet under the tongue [...] rEF (heart failure with reduced ejection fraction) ([facility]) Take 1 Tablet by mouth in the morning. 30 Tablet 3 07/03/2023 Active Clopidogrel Bisulfate 75 MG Oral Tablet (pLAVix)Indications:H FrEF (heart failure with reduced ejection fraction) ([facility]) Take 1 Tablet by mouth in [...] one tablet daily as directed by the [facility] clinic 100 Tablet 3 08/31/2023 [...] Stent Restenosis in Drug-Eluting Stents Project # [id number] Carroter: Wilda Serrano MD [phone] GENOMICS CARDIO RESEARCH OTHER*[id number] 01/09/2007 11/29/2016 Overview: Renamed Per Clinical Trials Billing Project. 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 # [id number] Carroter: Wilda Serrano MD [phone] Type 2 diabetes mellitus wit h hemoglobin [...] mRNA, LNP-s, No Pre serve, 2-Dose Series ([place]) 09/13/2021,01/05/2021,12/15/2020 Covid-19, Mrna, Lnp-s, Pf, B ivalent, 30 Mcg, IM, 12 yrs and above ([place]) 09/29/2022 H1N1 2009 Influenza, IM 10/08/2009 Pneumococcal [...] - 09/21/2023 11:09 AM EST Angela from [facility] home health is with the patient now and has never heard back about the order. Please advise BJ * Telephone Encounter - Wilda Plata [facility] - 09/19/2023 4:22 PM EST Reason for call: Start of Care for [facility] Home Health post hospital discharge next week, will be faxing orders over. Additionally, would like to know if PCP would like [facility] to complete INR. If so, would need order faxed over to [phone]. Noted. Will send orders (fax #[phone]) for PT/INR next week - appx MondaySep 26, or on date of nurse visit. Standing order for pt/inr. Please draw or completed fingerstick pt/inr as ordered by [facility] Pharmacist Results to [facility]tico[facility] Ordering Provider Dr. Yaya Frederick NPI# [id number] [facility] will follow up with patient in 1 week, once results are received. Please note - HH - can complete PT/INR via Fingerstick UNLESS Pt/INR results are >5 - then [place] will need to be completed for verification of results. INR can be completed on date that nurse will visit patient, please adjust "draw/fingerstick date" as needed. Wilda Plata, PharmD, [facility] Clinical Pharmacist 09/19/2023, 4:25 PM * Telephone Encounter - Yaya Frederick MD - 09/19/2023 3:19 PM EST Carlene Watkins see the request below * Telephone Encounter - Kiley Agustin OSA - 09/19/2023 1:05 PM EST Reason for call: Start of Care for [facility] Home Health post hospital discharge next week, will be faxing orders over. Additionally, would like to know if PCP would like [facility] to complete INR. If so, would need order faxed over to [phone]. documented in this encounter Plan of Treatment Upcoming Encounters Date Type Department Care Team ([facility] Contact Info) Description 09/26/2023 5:40 PM EST Anticoagulation Pharmacy [address] [phone] Pharmacist2, [facility] [address] [address] 09/27/2023 11:40 AM EST Office Visit [address] [phone] Oneida Briggs PA-C [address] [place] [address] 10/02/2023 3:30 PM EST Office Visit Cardiology, [facility] [address] [place] [address] Bucky Calvo PA-C [address] [place] [address] 10/06/2023 10:40 AM EST Office Visit Otolaryngology [address] [place] [address] Keely Tanner PA-C [address] [place] [address] 10/25/2023 10:40 AM EST Office Visit Nephrology [address] [place] [phone] Alfa Holcomb MD 200 [place] [address] 11/20/2023 1:40 PM EST Office Visit [place] [address] [facility] [phone] Yaya Frederick MD 68 [facility] [place] [address] 12/01/2023 2:15 PM EST Office Visit Hematology/Oncology [facility] 200 [facility] [place] [address] Agustín Sullivan MD 200 [facility] [place] [address] 08/16/2024 11:00 AM EDT Cardiac Studies Cardiology, [facility] 132 [facility] [address] [facility] 132 [facility] [place] [address] Scheduled Orders Name Type Priority Associated Diagnoses [...] Screening 02/09/2024 02/08/2023 CKD PHOS USE SMARTSET 30390 05/01/202404/22, 11/04/2022, 02/14/2019 Albumin/Creatinine Ratio 06/15/2024 023, 05/01/2023, 07/04/2022, Additional history exists CKD HGB USE SMARTSET 90070 08/29/202408/29, 08/29/2023, 08/11/2023, Additional history exists DXA Scan 11/09/2024 11/09/2022, 01/21, 11/03/2015, Additional history exists DTaP,Tdap,and Td Vaccines (3 - Td or Tdap) 06/04/2029 06/04/2019, 01/28/2019, 05/26/2008 Pneumococcal Vaccine: 65+ Years Completed 05/24/2016, 11/14/2001 VITAMIN D LEVEL ONCE IN A LIFETIME-USE SMARTSET# 39940 Completed 05/01/2023, 11/04/2022, 02/14/2019, Additional history exists [...] encounter- 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
--- OUTSIDE RECORDS SUMMARY | 2023-12-12 09:23 | External Medical Summary | Summary of Care ---
Author Name Unknown Organization [facility] Address [address] [place] [address] Phone [phone] Care Team Providers Care Supervisor Particleboard Name Role Phone Yaya Frederick MD Primary Care Provider [phone] Reason for Visit * Reason Onset Date Comments FYI 09/19/2023 Order Request 09/19/2023 URGENT Encounter Details Date Type Department Care Team ([facility] st Contact Info) Description 09/19/2023 Telephone [facility] [address] [place] [address] Yaya Frederick MD [address] [place] [address] FYI; Order Request (URGENT) Allergies Active Allergy [...] SolutionIndications:P ost-nasal discharge Administer into nostril 1 [place] in the morning AND 1 [place] before bedtime. 30 mL 0 11/30/2021 Active Ipratropium [place] 0.03 % Nasal Solution Administer into each [...] [facility] clinic 100 Tablet 3 08/31/2023 Active [...] dysfunction 04/17/2014 snf current use of anticoagulant therapy 0 11/12/2010 [...] Stent Restenosis in Drug-Eluting Stents Project # [phone] Jewelry Drilling Machine Operator: Wilda Serrano MD [phone] GENOMICS CARDIO RESEARCH OTHER*[id number] 01/09/2007 11/29/2016 Overview: Renamed Per Clinical Trials Billing Project. 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 # [phone] Jewelry Drilling Machine Operator: Wilda Serrano MD [phone] Type 2 diabetes mellitus wit h hemoglobin A1c goal of less than 7.0% 11/03/2006 08/15/2007 Overview: ICD-10 update of inactive term PURE HYPERCHOLESTEROLEM 11/03/200609/22 Overview: Per Lipid Taxonomy. 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 05/05/2006 01/23/2009 Overview: ICD-10 update of inactive term Anticoagulation management encounter 05/05/2006 10/03/2019 Unspecified viral infection, in conditions classified elsewhere and of unspecified site 06/08/2005 09/25/2007 Menopause 12/19/2001 12/27/2017 FEM STRESS INCONTINENCE 05/10/200111/23 documented as of this encounter (statuses as of 09/21/2023) Immunizations Name Administration Dates Next Due COVID-19 mRNA, LNP-s, No Pre serve, 2-Dose Series ([employer]) 09/13/2021,01/05/2021,12/15/2020 Covid-19, Mrna, Lnp-s, Pf, B ivalent, 30 Mcg, IM, 12 yrs and above ([employer]) 09/29/2022 H1N1 2009 Influenza, IM 10/08/2009 Pneumococcal [...] - 09/21/2023 11:09 AM EST Angela from [facility] home health is with the patient now and has never heard back about the order. Please advise BJ * Telephone Encounter - Wilda Plata [facility] - 09/19/2023 4:22 PM EST Reason for call: Start of Care for [facility] Home Health post hospital discharge next week, will be faxing orders over. Additionally, would like to know if PCP would like [facility] to complete INR. If so, would need order faxed over to [phone]. Noted. Will send orders (fax #[phone]) for PT/INR next week - appx MondaySep 26, or on date of nurse visit. Standing order for pt/inr. Please draw or completed fingerstick pt/inr as ordered by [facility] Pharmacist Results to [facility] Ordering Provider Dr. Yaya Frederick NPI# [id number] [facility] will follow up with patient in 1 week, once results are received. Please note - HH - can complete PT/INR via Fingerstick UNLESS Pt/INR results are >5 - then PLATER HOT DIP will need to be completed for verification of results. INR can be completed on date that nurse will visit patient, please adjust "draw/fingerstick date" as needed. Wilda Plata, PharmD, [facility] Clinical Pharmacist 09/19/2023, 4:25 PM * Telephone Encounter - Yaya Frederick MD - 09/19/2023 3:19 PM EST Carlene Watkins see the request below * Telephone Encounter - Kiley Agustin OSA - 09/19/2023 1:05 PM EST Reason for call: Start of Care for [facility] Home Health post hospital discharge next week, will be faxing orders over. Additionally, would like to know if PCP would like [facility] to complete INR. If so, would need order faxed over to [phone]. documented in this encounter Plan of Treatment Upcoming Encounters Date Type Department Care Team ([facility] Contact Info) Description 09/26/2023 5:40 PM EST Anticoagulation Pharmacy [address] [phone] Pharmacist2, [facility] [address] [address] 09/27/2023 11:40 AM EST Office Visit [address] [phone] Oneida Briggs PA-C [address] [place] [address] 10/02/2023 3:30 PM EST Office Visit Cardiology, [facility] [address] [place] [address] Bucky Calvo PA-C [address] [place] [address] 10/06/2023 10:40 AM EST Office Visit Otolaryngology [address] [place] [phone] Keely Tanner PA-C [address] [place] [address] 10/25/2023 10:40 AM EST Office Visit Nephrology [address] [place] [phone] Alfa Holcomb MD 200 [place] [address] 11/20/2023 1:40 PM EST Office Visit [place] [address] [facility] [place] [phone] Yaya Frederick MD [facility] [address] 12/01/2023 2:15 PM EST Office Visit Hematology/Oncology [facility] 200 [facility] [place] [address] Agustín Sullivan MD 200 [facility] [place] [address] 08/16/2024 11:00 AM EDT Cardiac Studies Cardiology, [facility] 132 [facility] [place] [address] [facility] 132 [facility] [place] [address] Scheduled Orders Name Type Priority Associated Diagnoses [...] Screening 02/09/2024 02/08/2023 CKD PHOS USE SMARTSET 73902 05/01/202404/22, 11/04/2022, 02/14/2019 Albumin/Creatinine Ratio 06/15/2024 023, 05/01/2023, 07/04/2022, Additional history exists CKD HGB USE SMARTSET 19542 08/29/202408/29, 08/29/2023, 08/11/2023, Additional history exists DXA Scan 11/09/2024 11/09/2022, 01/21, 11/03/2015, Additional history exists DTaP,Tdap,and Td Vaccines (3 - Td or Tdap) 06/04/2029 06/04/2019, 01/28/2019, 05/26/2008 Pneumococcal Vaccine: 65+ Years Completed 05/24/2016, 11/14/2001 VITAMIN D LEVEL ONCE IN A LIFETIME-USE SMARTSET# [id number] Completed 05/01/2023, 11/04/2022, 02/14/2019, Additional history exists [...] encounter- 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
--- OUTSIDE RECORDS SUMMARY | 2023-12-12 09:23 | External Medical Summary | Summary of Care ---
Author Name Unknown Organization [facility] Address [address] [place] [address] Phone [phone] Care Team Providers Care Building Official Name Role Phone Yaya Frederick MD Primary Care Provider [phone] Reason for Visit * Reason Onset Date Comments FYI 09/19/2023 Order Request 09/19/2023 URGENT Encounter Details Date Type Department Care Team ([facility] st Contact Info) Description 09/19/2023 Telephone [facility] [address] [place] [address] Yaya Frederick MD [address] [place] [address] FYI; Order Request (URGENT) Allergies Active Allergy [...] SolutionIndications:P ost-nasal discharge Administer into nostril 1 [place] in the morning AND 1 [place] before bedtime. 30 mL 0 11/30/2021 Active Ipratropium [place] 0.03 % Nasal Solution Administer into each [...] tablet daily as directed by the [facility] clinic 100 Tablet 3 08/31/2023 Active Losartan [...] situ 04/17/2014 Sinus node dysfunction 04/17/2014 intermediate current use of anticoagulant therapy 0 11/12/2010 [...] Stent Restenosis in Drug-Eluting Stents Project # [id number] Business Process Manager: Wilda Serrano MD [phone] GENOMICS CARDIO RESEARCH OTHER*[id number] 01/09/2007 11/29/2016 Overview: Renamed Per Clinical Trials Billing Project. 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 # [id number] Business Process Manager: Wilda Serrano MD [phone] Type 2 diabetes mellitus wit h hemoglobin A1c goal of less than 7.0% 11/03/2006 08/15/2007 Overview: ICD-10 update of inactive term PURE HYPERCHOLESTEROLEM 11/03/200609/22 Overview: Per Lipid Taxonomy. 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 icoagulant therapy 05/05/2006 01/23/2009 Overview: ICD-10 update of inactive term Anticoagulation management encounter 05/05/2006 10/03/2019 Unspecified viral infection, in conditions classified elsewhere and of unspecified site 06/08/2005 09/25/2007 Menopause 12/19/2001 12/27/2017 FEM STRESS INCONTINENCE 05/10/200111/23 documented as of this encounter (statuses as of 09/21/2023) Immunizations Name Administration Dates Next Due COVID-19 mRNA, LNP-s, No Pre serve, 2-Dose Series ([employer]) 09/13/2021,01/05/2021,12/15/2020 Covid-19, Mrna, Lnp-s, Pf, B ivalent, 30 Mcg, IM, 12 yrs and above ([employer]) 09/29/2022 H1N1 2009 Influenza, IM 10/08/2009 Pneumococcal [...] - 09/21/2023 11:09 AM EST Angela from [facility] home health is with the patient now and has never heard back about the order. Please advise BJ * Telephone Encounter - Wilda Plata [facility] - 09/19/2023 4:22 PM EST Reason for call: Start of Care for [facility] Home Health post hospital discharge next week, will be faxing orders over. Additionally, would like to know if PCP would like [facility] to complete INR. If so, would need order faxed over to [phone]. Noted. Will send orders (fax #[phone]) for PT/INR next week - appx MondaySep 26, or on date of nurse visit. Standing order for pt/inr. Please draw or completed fingerstick pt/inr as ordered by [facility] Pharmacist Results to [facility] Antico[facility] Clinic Ordering Provider Dr. Yaya Frederick NPI# [id number] [facility] will follow up with patient in 1 week, once results are received. Please note - HH - can complete PT/INR via Fingerstick UNLESS Pt/INR results are >5 - then ICU MANAGER will need to be completed for verification of results. INR can be completed on date that nurse will visit patient, please adjust "draw/fingerstick date" as needed. Wilda Plata, PharmD, [facility] Clinical Pharmacist 09/19/2023, 4:25 PM * Telephone Encounter - Yaya Frederick MD - 09/19/2023 3:19 PM EST Carlene Watkins see the request below * Telephone Encounter - Kiley Agustin OSA - 09/19/2023 1:05 PM EST Reason for call: Start of Care for [facility] Home Health post hospital discharge next week, will be faxing orders over. Additionally, would like to know if PCP would like [facility] to complete INR. If so, would need order faxed over to [phone]. documented in this encounter Plan of Treatment Upcoming Encounters Date Type Department Care Team ([facility] Contact Info) Description 09/26/2023 5:40 PM EST Anticoagulation Pharmacy [address] [phone] Pharmacist2, [facility] [address] [address] 09/27/2023 11:40 AM EST Office Visit [address] [phone] Oneida Briggs PA-C [address] [place] [address] 10/02/2023 3:30 PM EST Office Visit Cardiology, [facility] [address] [place] [address] Bucky Calvo PA-C [address] [place] [address] 10/06/2023 10:40 AM EST Office Visit Otolaryngology [address] [place] [phone] Keely Tanner PA-C [address] [place] [address] 10/25/2023 10:40 AM EST Office Visit Nephrology [address] [place] [phone] Alfa Holcomb MD 200 [place] [address] 11/20/2023 1:40 PM EST Office Visit [place] [address] [facility] [place] [phone] Yaya Frederick MD 68 [facility] [place] [address] 12/01/2023 2:15 PM EST Office Visit Hematology/Oncology [facility] 200 [facility] [place] [address] Agustín Sullivan MD 200 [facility] [place] [address] 08/16/2024 11:00 AM EDT Cardiac Studies Cardiology, [facility] 132 [facility] [address] [facility] 132 [facility] [place] [address] Scheduled Orders Name Type Priority Associated Diagnoses [...] Screening 02/09/2024 02/08/2023 CKD PHOS USE SMARTSET 99222 05/01/202404/22, 11/04/2022, 02/14/2019 Albumin/Creatinine Ratio 06/15/2024 023, 05/01/2023, 07/04/2022, Additional history exists CKD HGB USE SMARTSET 75341 08/29/202408/29, 08/29/2023, 08/11/2023, Additional history exists DXA Scan 11/09/2024 11/09/2022, 01/21, 11/03/2015, Additional history exists DTaP,Tdap,and Td Vaccines (3 - Td or Tdap) 06/04/2029 06/04/2019, 01/28/2019, 05/26/2008 Pneumococcal Vaccine: 65+ Years Completed 05/24/2016, 11/14/2001 VITAMIN D LEVEL ONCE IN A LIFETIME-USE SMARTSET# [id number] Completed 05/01/2023, 11/04/2022, 02/14/2019, Additional history exists [...] encounter- 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
--- OUTSIDE RECORDS SUMMARY | 2023-12-12 09:23 | External Medical Summary | Summary of Care ---
Author Name Unknown Organization [facility] Address [address] [place] [address] Phone [phone] Care Team Providers Care Knitting Machine Mechanic Name Role Phone Yaya Frederick MD Primary Care Provider [phone] Reason for Visit * Reason Onset Date Comments FYI 09/19/2023 Order Request 09/19/2023 URGENT Encounter Details Date Type Department Care Team ([facility] st Contact Info) Description 09/19/2023 Telephone [facility] [address] [place] [address] Yaya Frederick MD [address] [place] [address] FYI; Order Request (URGENT) Allergies Active Allergy [...] SolutionIndications:P ost-nasal discharge Administer into nostril 1 [place] in the morning AND 1 [place] before bedtime. 30 mL 0 11/30/2021 Active Ipratropium [place] 0.03 % Nasal Solution Administer into each [...] NSTEMI (non-ST elevated myocardial infarction) ([facility]) Take 1 Tablet by mouth in the morning. 90 Tablet 3 05/18/2023 Active Nitroglycerin 0.4 MG Sublingual Tablet Sublingual (Nitrostat)Indication s:NSTEMI (non-ST elevated myocardial infarction) ([facility]) Place 1 Tablet under the [...] failure with reduced ejection fraction) ([facility]) Take 1 Tablet by mouth in the morning. 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 # [phone] Wirer Passenger Car: Wilda Serrano MD [phone] Type 2 diabetes mellitus wit h hemoglobin [...] mRNA, LNP-s, No Pre serve, 2-Dose Series ([employer]) 09/13/2021,01/05/2021,12/15/2020 Covid-19, Mrna, Lnp-s, Pf, B ivalent, 30 Mcg, IM, 12 yrs and above ([employer]) 09/29/2022 H1N1 2009 Influenza, IM 10/08/2009 Pneumococcal [...] encounter Miscellaneous Notes * Telephone Encounter - Neyda Lafleur OSA - 09/21/2023 1:18 PM EST Called them and told them I am refaxing to them now at [phone] she said she would watch for them * Telephone Encounter - Richard Turcios LPN - 09/21/2023 11:55 AM EST Does anyone have these orders? * Telephone Encounter - Sherry Robert OSA - 09/21/2023 11:09 AM EST Angela from [facility] is with the patient now and has never heard back about the order. Please advise BJ * Telephone Encounter - Wilda Plata RPh - 09/19/2023 4:22 PM EST Reason for call: Start of Care for [facility] post hospital discharge next week, will be faxing orders over. Additionally, would like to know if PCP would like [facility] to complete INR. If so, would need order faxed over to [phone]. Noted. Will send orders (fax #[phone]) for PT/INR next week - appx MondaySep 26, or on date of nurse visit. Standing order for pt/inr. Please draw or completed fingerstick pt/inr as ordered by [facility] Pharmacist Results to [facility] Ordering Provider Dr. Yaya Frederick NPI# [id number] [facility] will follow up with patient in 1 week, once results are received. Please note - HH - can complete PT/INR via Fingerstick UNLESS Pt/INR results are >5 - then WOOD SCRAP HANDLER will need to be completed for verification of results. INR can be completed on date that nurse will visit patient, please adjust "draw/fingerstick date" as needed. Wilda Plata, PharmD, [facility] Clinical Pharmacist 09/19/2023, 4:25 PM * Telephone Encounter - Yaya Frederick MD - 09/19/2023 3:19 PM EST June, Carlene see the request below * Telephone Encounter - Kiley Agustin OSA - 09/19/2023 1:05 PM EST Reason for call: Start of Care for [facility] Home Health post hospital discharge next week, will be faxing orders over. Additionally, would like to know if PCP would like [facility] to complete INR. If so, would need order faxed over to [phone]. documented in this encounter Plan of Treatment Upcoming Encounters Date Type Department Care Team ([facility] Contact Info) Description 09/26/2023 5:40 PM EST Anticoagulation Pharmacy [address] [phone] Pharmacist2, [facility] [address] [address] 09/27/2023 11:40 AM EST Office Visit Family Practice [facility] [address] [place] [phone] Oneida Briggs PA-C [address] [place] [address] 10/02/2023 3:30 PM EST Office Visit Cardiology, [facility] [address] [place] [address] Bucky Calvo PA-C [address] [place] [address] 10/06/2023 10:40 AM EST Office Visit Otolaryngology [address] [place] [phone] Keely Tanner PA-C [address] [place] [address] 10/25/2023 10:40 AM EST Office Visit Nephrology [facility] 68 [facility] [address] [place] [phone] Alfa Holcomb MD 200 [place] [address] 11/20/2023 1:40 PM EST Office Visit Family Practice [facility] [address] [place] [phone] Yaya Frederick MD 68 [facility] [place] [address] 12/01/2023 2:15 PM EST Office Visit Hematology/Oncology [facility] 200 [facility] [address] Agustín Sullivan MD 200 [facility] [place] [address] 08/16/2024 11:00 AM EDT Cardiac Studies Cardiology, [facility] 132 [facility] [place] [address] [facility] 132 [place] [address] Scheduled Orders Name Type Priority Associated Diagnoses [...] Screening 02/09/2024 02/08/2023 CKD PHOS USE SMARTSET 15677 05/01/2024 07/, 11/04/2022, 02/14/2019 Albumin/Creatinine Ratio 06/15/2024 023, 05/01/2023, 07/04/2022, Additional history exists CKD HGB USE SMARTSET 00521 08/29/202408/29, 08/29/2023, 08/11/2023, Additional history exists DXA Scan 11/09/2024 11/09/2022, 01/21, 11/03/2015, Additional history exists DTaP,Tdap,and Td Vaccines (3 - Td or Tdap) 06/04/2029 06/04/2019, 01/28/2019, 05/26/2008 Pneumococcal Vaccine: 65+ Years Completed 05/24/2016, 11/14/2001 VITAMIN D LEVEL ONCE IN A LIFETIME-USE SMARTSET# 55972 Completed 05/01/2023, 11/04/2022, 02/14/2019, Additional history exists [...] encounter- Primary Encounter for therapeutic drug monitoring senior living current use of anticoagulant therapy documented in this encounter Additional Health Concerns Infection Onset Date Last Indicated Resolved Time Varicella zoster 08/01/2022 08/01/2022 documented as of this encounter Care Teams Knitting Machine Mechanic Relationship Specialty Start Date End Date Yaya Frederick MD [address] [place] [address] PCP - General Family Medicine 05/04/21 documented as of this encounter
--- OUTSIDE RECORDS SUMMARY | 2023-12-12 09:24 | External Medical Summary | Summary of Care ---
Author Name Unknown Organization [facility] Address [address] [place] [address] Phone [phone] Care Team Providers Care Security Compliance Engineer Name Role Phone Yaya Frederick MD Primary Care Provider [phone] Reason for Visit * Reason Comments Follow Up Patient is here toda y for a follow up. Patient states the swelling in her ankles has started again. Patient states she has also been bloated for the past few week. Patient states she is having a harder time breathing lately. Patient states her back has been very itchy lately epically on her back. Encounter Details Date Type Department Care Team ([facility] Contact Info) Description 09/12/2023 11:20 AM EST Office Visit [address] [phone] Oneida Briggs PA-C [address] [place] [phone] Acute on chronic HFrEF (heart failure with reduced ejection fraction) ([facility])*; RADHA (acute kidney injury) ([facility]) Allergies Active Allergy Reactions Criticality [...] as of this encounter (statuses as of 09/12/2023) Medications Medication Sig Dispensed Refills Start Date End Date Status BENADRYL 25 MG PO TABS 1 TABLET EVERY 4 TO 6 HOURS NEEDED 0 Active GRX ANALGESIC BALM EX OINT Apply topically to affected area. 0 07/01/2013 Active Azelastine HCl 0.15 % Nasal SolutionIndications:P ost-nasal discharge Administer into nostril 1 [place] in the morning AND 1 [place] before bedtime. 30 mL 0 11/30/2021 Active Ipratropium Clifford 0.03 % Nasal Solution Administer into each [...] [facility] clinic 100 Tablet 3 08/31/2023 Active Losartan Potassium 25 MG Oral Tablet (Cozaar) Take 0.5 Tablets by mouth in the morning. 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 # [id number] Parts Salesman: Wilda Serrano MD [phone] Type 2 diabetes mellitus wit h hemoglobin [...] as of this encounter (statuses as of 09/12/2023) Immunizations Name Administration Dates Next Due COVID-19 mRNA, LNP-s, No Pre serve, 2-Dose Series ([employer]) 09/13/2021,01/05/2021,12/15/2020 Covid-19, Mrna, Lnp-s, Pf, B ivalent, [...] Sign Reading Time Taken Comments Blood Pressure 108/82 09/12/2023 11:23 AM EST Pulse 54 09/12/2023 11:23 AM EST Temperature 36.8 C (98.3 F) 09/12/2023 1 1:23 AM EST Respiratory Rate 18 09/12/2023 11:2 3 AM EST Oxygen Saturation 97% 09/12/2023 11: 23 AM EST Inhaled Oxygen Concentration - - Weight 81.1 kg (178 lb 12.8 oz) 023 11:23 AM EST Height - - Body Mass Index 36.09 06/30/2023 1:38 PM EDT documented in this encounter Progress Notes * Oneida Briggs PA-C - 09/12/2023 11:49 AM EST Subjective: Shannon Cruz is a 88 year old female. Chief Complaint Patient presents with Follow Up Patient is here today for a follow up. Patient states the swelling in her ankles has started again. Patient states she has also been bloated for the past few week. Patient states she is having a harder time breathing lately. Patient states her back has been very itchy lately epically on her back. HPI: Patient presents today for routine visit. She reports increasing shortness of breath. Patient reports she feels bloated and has increased her oxygen from 2L to 3L. Fills like her abdomen is filling with fluid. She also notes lower extremity edema. Patient weights self daily at home. She reports she is usually weights 172 at home. This morning she was 176 at home. Given patient's RADHA on CKD, she must be monitored closely during diuresis. 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.5 longterm current use of anticoagulant therapy Z79.01 Cardiac [...] actinic keratosis Z87.2 Chronic hypoxemic respiratory failure ([facility]) J96.11 RADHA (acute kidney injury) ([facility]) N17.9 HFrEF (heart failure with reduced ejection fraction) ([facility]) I50.20 Current Outpatient Medications Medication Sig Dispense Refill BENADRYL 25 MG PO TABS 1 TABLET EVERY 4 TO 6 HOURS NEEDED Azelastine HCl 0.15 % Nasal Solution Administer into nostril 1 [place] in the morning AND 1 [place] before bedtime. 30 mL 0 Ipratropium Clifford 0.03 % Nasal Solution Administer into each [...] [facility] clinic 100 Tablet 3 Losartan Potassium 25 MG Oral Tablet (Cozaar) Take 0.5 Tablets by mouth in the morning. 45 Tablet 1 GRX ANALGESIC BALM EX OINT Apply topically to affected area. (Patient not taking: Reported on 09/12/2023) busPIRone HCl 5 MG Oral Tablet (Buspar) [...] shortness of breath. Zocor [Simvastatin] Objective: BP 108/82 | Pulse 54 | Temp 36.8 C (98.3 F) (Tympanic) | Resp 18 | Wt 81.1 kg (178 lb 12.8 oz) | SpO2 97% | BMI 36.09 kg/m | BSA 1.84 m General: alert, healthy, and no distress Heart: regular rate & rhythm, no murmur, and no gallops Lungs: chest symmetric with normal AP diameter, mildly diminished in bases Abdomen: abdomen soft, non-tender, normal bowel sounds, and no masses or organomegaly Extremities:2+ edema b/l less than 2 second capillary refill ASSESSMENT: Acute on chronic HFrEF (heart failure with reduced ejection fraction) (HCC) (Primary) RADHA (acute kidney injury) (HCC) Follow Up: Return in about 2 weeks (around 09/26/2023) for to ER for evaluation of CHF exacerbation with CKD . | For: to ER for evaluation of CHF exacerbation with CKD Given patient's RADHA on CKD, she must be monitored closely during diuresis. Patient is acute exacerbation of CHF. Recommended patient go to emergency department. Offered EMS. Patient politely declinesshe wishes to to [facility]. She is with her son. He states that they will get her to [facility] and they may consider calling ambulance when she gets home. Oneida Briggs PA-C documented in this encounter Nursing Notes * Peyton Rivas LPN - 09/12/2023 11:28 AM EST The patient has been properly identified by confirmation of name and date of . Chief Complaint Patient presents with Follow Up Patient is here today for a follow up. Patient states the swelling in her ankles has started again. Patient states she has also been bloated for the past few week. Patient states she is having a harder time breathing lately. Patient states her back has been very itchy lately epically on her back. documented in this encounter Plan of Treatment Upcoming Encounters Date Type Department Care Team ([facility] st Contact Info) Description 09/27/2023 11:40 AM EST Office Visit Family [address] [phone] Oneida Briggs PA-C [address] [place] [address] 10/02/2023 3:30 PM EST Office Visit Cardiology, [facility] [address] [place] [address] Bucky Calvo PA-C [address] [place] [address] 10/06/2023 10:40 AM EST Office Visit Otolaryngology [address] [place] [phone] Keely Tanner PA-C 132 [facility] [place] [address] 10/25/2023 10:40 AM EST Office Visit Nephrology [facility] [address] [facility] [address] [place] [phone] Alfa Holcomb MD [address] [facility] [place] [address] 10/25/2023 11:20 AM EST Anticoagulation Pharmacy [address] [phone] Pharmacist2, [facility] [address] [address] 11/20/2023 1:40 PM EST Office Visit Family Practice [facility] [address] [place] [phone] Yaya Frederick MD [address] [place] [address] 12/01/2023 2:15 PM EST Office Visit Hematology/Oncology [facility] [address] [facility] [place] [address] Agustín Sullivan MD [address] [facility] [place] [address] 08/16/2024 11:00 AM EDT Cardiac Studies Cardiology, [facility] 132 [facility] [place] [address] [facility] [address] [facility] [place] [address] Health Maintenance Due Date Last Done Comments Zoster Vaccines (1 of 2) 1954 Hepatitis B (1 of 3 - Risk 3-dose series) 1996 COVID-19 Vaccine ( season) 2023 09/29/2022, 09/13/2021, 01/05/2021, Additional history exists Depression Screening 02/09/2024 02/08/2023 CKD PHOS USE SMARTSET 89010 05/01/202404/22, 11/04/2022, 02/14/2019 Albumin/Creatinine Ratio 06/15/2024 023, 05/01/2023, 07/04/2022, Additional history exists CKD HGB USE SMARTSET 86444 08/29/202408/29, 08/29/2023, 08/11/2023, Additional history exists DXA Scan 11/09/2024 11/09/2022, 01/21, 11/03/2015, Additional history exists DTaP,Tdap,and Td Vaccines (3 - Td or Tdap) 06/04/2029 06/04/2019, 01/28/2019, 05/26/2008 Pneumococcal Vaccine: 65+ Years Completed 05/24/2016, 11/14/2001 VITAMIN D LEVEL ONCE IN A LIFETIME-USE SMARTSET# [id number] Completed 05/01/2023, 11/04/2022, 02/14/2019, Additional history exists [...] as of this encounter Visit Diagnoses Diagnosis Acute on chronic HFrEF (heart failure with reduced ejection fraction) (HCC)- Primary RADHA (acute kidney injury) (HCC) Acute kidney failure, unspecified documented in this encounter Additional Health Concerns Infection Onset Date Last Indicated Resolved Time Varicella zoster 08/01/2022 08/01/2022 documented as of this encounter Care Teams Security Compliance Engineer Relationship Specialty Start Date End Date Yaya Frederick MD [address] [place] [address] PCP - General Family Medicine 05/04/21 documented as of this encounter"
--- OUTSIDE RECORDS SUMMARY | 2023-12-12 09:24 | External Medical Summary | Summary of Care ---
Author Name Unknown Organization [facility] Address [address] [place] [address] Phone [phone] Care Team Providers Care Dentist Name Role Phone Yaya Frederick MD Primary Care Provider [phone] Reason for Visit * Reason Onset Date Comments Hospital Follow-Up 09/19/2023 Encounter Details Date Type Department Care Team (Late st Contact Info) Description 09/19/2023 Telephone Ancillary Elena [place] [address] [place] [phone] Galilea Turner, [facility] Follow-Up Allergies Active Allergy Reactions Criticality Noted Date [...] SolutionIndications:P ost-nasal discharge Administer into nostril 1 [place] in the morning AND 1 [place] before bedtime. 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 # [id number] Rehabilitation Counselor: Wilda Serrano MD [phone] Type 2 diabetes mellitus wit h hemoglobin A1c goal of less than 7.0% 11/03/2006 08/15/2007 Overview: ICD-10 update of inactive term PURE HYPERCHOLESTEROLEM 11/03/200609/22 Overview: Per Lipid Taxonomy. 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/20 08 terminal carman current use of ant icoagulant therapy 05/05/2006 [...] encounter Miscellaneous Notes * Telephone Encounter - Galilea Turner RN - 09/19/2023 8:36 AM EST Images from the original note were not included. Transitions of Care Note Reason for Referral:Recent Admission Phone visit for follow up: SELMA Admitted to: [facility], Date: 09/12/2023 Discharged to: Home with Home Health, Date: 09/18/2023 Diagnosis driving hospitalization: SOB CHF acute on chronic respiratory failure Source/Contact: Patient SUBJECTIVE Consent: Verbal consent for review of hospital discharge: Yes REVIEW OF SYSTEMS Patient/Other Reports: Current patient/caregiver problems or concerns: feeling better. Just needs to get her strength back CV: Denies problems Pulmonary: SOB- still some SOB, same as in hospital Cough- occasional cough Oxygen- 2 L Chills/Sweats/Fever:Denies chills/sweats Denies fever Appetite:Denies problems such as nausea, vomiting, burning, decreased appetite Current diet: Low NA Bowel: denies problems Bladder: denies problems Wound (If applicable): N/A Pain:Denies Sleep:Denies problems FUNCTIONAL STATUS: ADL'S: Needs Assistance With:N/A as pt is independent IADL'S: Needs Assistance With:Grocery Shopping and Routine Housework Cognitive and Mental Health: denies problems, alert and oriented x 3, and able to communicate, understand instructions, process information. MEDICATION RECONCILIATION Medications: Discharge med list reviewed with patient or caregiver Reports all medications taken as prescribed. ASSESSMENT Medication Risk Assessment: INR above/below therapeutic ranges Did patient fail outpatient treatment? Yes Discharge instructions available for review? Yes PLAN Symptom Monitoring Interventions:Member/caregiver education - signs and symptoms to contact PrimaryCare (DO NOT DELETE-Three olivares symptoms patient is to report to PCP) 1. Worsening SOB, Cough, wheezing 2. Fever, chills 3. Gain more than 2-3 lbs in 1-2 days Net Developer ArchitectPrimary Care Nurse Practitioner of Care interventions/Action Plan: 5 - 7 day follow-up with PCP in place - Date: Carla Briggs 09/27 at 1140 Educated on role of SELMA completed with patient/caregiver. Educated patient/caregiver on patient right to have input on SELMA plan of care. Verification of Home Health/DME if indicated: YES [facility] Home Care Identified Care Gaps: Yes Care Gaps closed this call: Appointment made or confirmed and Transition of Care follow-up communication Re-evaluation of Plan of Care and progress towards goals achievement: Patient education this visit: Verbal, Discussed importance of daily weights and contacting PCP if increase greater than 2-3 lbs in 1-2 days. Plan to discharge needs met, verbalizes understanding and agrees with plan. Galilea Yousif RN documented in this encounter Plan of Treatment Upcoming Encounters Date Type Department Care Team (Late st Contact Info) Description 09/27/2023 11:40 AM EST Office Visit [address] [phone] Oneida Briggs PA-C [address] [place] [address] 10/02/2023 3:30 PM EST Office Visit Cardiology, [facility] 132 [facility] [place] [address] Bucky Calvo PA-C [address] [place] [address] 10/06/2023 10:40 AM EST Office Visit Otolaryngology [address] [place] [phone] Keely Tanner PA-C 132 [facility] [place] [address] 10/25/2023 10:40 AM EST Office Visit Nephrology [address] [place] [phone] Alfa Holcomb MD 200 [facility] [place] [address] 10/25/2023 11:20 AM EST Anticoagulation Pharmacy [address] [phone] Pharmacist2, [facility] [address] [address] 11/20/2023 1:40 PM EST Office Visit Family Practice [address] [phone] Yaya Frederick MD [address] [place] [address] 12/01/2023 2:15 PM EST Office Visit Hematology/Oncology [facility] [place] [address] [place] [address] Agustín Sullivan MD [address] [place] [address] 08/16/2024 11:00 AM EDT Cardiac Studies Cardiology, [facility] [address] [place] [address] [place] 132 [place] [address] Health Maintenance Due Date Last Done Comments Zoster Vaccines (1 of 2) 1954 Hepatitis B (1 of 3 - Risk 3-dose series) 1996 COVID-19 Vaccine ( season) 2023 09/29/2022, 09/13/2021, 01/05/2021, Additional history exists Depression Screening 02/09/2024 02/08/2023 CKD PHOS USE SMARTSET 09834 05/01/202404/22, 11/04/2022, 02/14/2019 Albumin/Creatinine Ratio 06/15/2024 023, 05/01/2023, 07/04/2022, Additional history exists CKD HGB USE SMARTSET 47891 08/29/202408/29, 08/29/2023, 08/11/2023, Additional history exists DXA Scan 11/09/2024 11/09/2022, 01/21, 11/03/2015, Additional history exists DTaP,Tdap,and Td Vaccines (3 - Td or Tdap) 06/04/2029 06/04/2019, 01/28/2019, 05/26/2008 Pneumococcal Vaccine: 65+ Years Completed 05/24/2016, 11/14/2001 VITAMIN D LEVEL ONCE IN A LIFETIME-USE SMARTSET# [id number] Completed 05/01/2023, 11/04/2022, 02/14/2019, Additional history exists [...] documented as of this encounter Care Teams Dentist Relationship Specialty Start Date End Date Yaya Frederick MD [address] [place] [address] PCP - General Family Medicine 05/04/21 documented as of this encounter
--- OUTSIDE RECORDS SUMMARY | 2023-12-12 09:24 | External Medical Summary | Summary of Care ---
Author Name Unknown Organization [facility] Address [address] [place] [address] Phone [phone] Care Team Providers Care Chicken Handler Name Role Phone Yaya Frederick MD Primary Care Provider [phone] Reason for Visit * Reason Comments Dosage Adjustment In Person (Anticoag Cl inic) Encounter Details Date Type Department Care Team (Latest Contact Info) Description 09/12/2023 1:10 PM EST Anticoagulation Pharmacy [address] [phone] Pharmacist2, [facility] [address] [address] S/P aortic valve replacement* Allergies Active Allergy [...] SolutionIndications:P ost-nasal discharge Administer into nostril 1 [place] in the morning AND 1 [place] before bedtime. 30 mL 0 11/30/2021 Active Ipratropium [place] 0.03 % Nasal Solution Administer into each [...] MG Oral Capsule (Hydrea)Indications:E ssential thrombocythemia ([facility]) Take 1 capsule by mouth 5 [...] (Crestor)Indications: NSTEMI (non-ST elevated myocardial infarction) ([facility] [...] in situ 04/17/2014 Sinus node dysfunction 04/17/2014 [facility] current use of anticoagulant therapy 0 11/12/2010 [...] Stent Restenosis in Drug-Eluting Stents Project # [id number] Nurse Sexual Assault: Wilda Serrano MD [phone] GENOMICS CARDIO RESEARCH OTHER*[id number] 01/09/2007 11/29/2016 Overview: Renamed Per Clinical Trials Billing Project. 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 # [id number] Nurse Sexual Assault: Wilda Serrano MD [phone] Type 2 diabetes mellitus wit h hemoglobin A1c goal of less than 7.0% 11/03/2006 08/15/2007 Overview: ICD-10 update of inactive term PURE HYPERCHOLESTEROLEM 11/03/200609/22 Overview: Per Lipid Taxonomy. 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 current use of ant icoagulant therapy 05/05/2006 01/23/2009 Overview: ICD-10 update of inactive term Anticoagulation management encounter 05/05/2006 10/03/2019 Unspecified viral infection, in conditions classified elsewhere and of unspecified site 06/08/2005 09/25/2007 Menopause 12/19/2001 12/27/2017 FEM STRESS INCONTINENCE 05/10/200111/23 documented as of this encounter (statuses as of 09/12/2023) Immunizations Name Administration Dates Next Due COVID-19 mRNA, LNP-s, No Pre serve, 2-Dose Series ([employer]) 09/13/2021,01/05/2021,12/15/2020 Covid-19, Mrna, Lnp-s, Pf, B ivalent, [...] this encounter Progress Notes * Raquel Alcantara, [facility] - 09/12/2023 11:27 AM EST Medication Therapy Disease Management - Anticoagulation Patient: Shannon Wugaviotajaya | : 1935 Subjective Patient-Reported Symptoms: Patient Findings Negatives: Signs/symptoms of thrombosis, Signs/symptoms of bleeding, Change in health, Change in alcohol use, Change in activity, Upcoming invasive procedure, Missed doses, Extra doses, Change in medications, Change in diet/appetite, Bruising Objective Current Warfarin Dose As of 09/12/2023 Warfarin maintenance plan: 0 mg every Wed; 1.25 mg (2.5 mg x 0.5) all other days INR Result As of 09/12/2023 INR goal: 2.0-3.0 INR used for dosin.6 (09/12/2023) Assessment & Plan Warfarin Plan As of 09/12/2023 Full warfarin instructions: 0 mg every Wed; 1.25 mg all other days No change documented: Raquel Alcantara RPh Next INR check: 10/24/2023 Repeat PT/INR in 6 week(s) Weekly dose: not changed Additional Dosing Information: Description Sent orders to [facility] at Fax#: [phone] Please call results to [facility] at Or Fax to [phone] Raquel Alcantara [facility] Clinical Pharmacist 09/12/2023, 11:27 AM documented in this encounter Plan of Treatment Upcoming Encounters Date Type Department Care Team ([facility] Contact Info) Description 09/27/2023 11:40 AM EST Office Visit Family [address] [phone] Oneida Briggs PA-C [address] [place] [address] 10/02/2023 3:30 PM EST Office Visit Cardiology, [facility] [address] [place] [address] Bucky Calvo PA-C [address] [place] [address] 10/06/2023 10:40 AM EST Office Visit Otolaryngology [address] [place] [phone] Keely Tanner PA-C [address] [place] [address] 10/25/2023 10:40 AM EST Office Visit Nephrology [address] [place] [phone] Alfa Holcomb MD [address] [facility] [place] [address] 10/25/2023 11:20 AM EST Anticoagulation Pharmacy [facility] [address] [place] [phone] Pharmacist2, [facility] [place] [address] [place] [address] 11/20/2023 1:40 PM EST Office Visit Family Practice [facility] [address] [place] [phone] Yaya Frederick MD [address] [place] [phone] 12/01/2023 2:15 PM EST Office Visit Hematology/Oncology [facility] [address] [facility] [place] [address] Agustín Sullivan MD [address] [facility] [place] [address] 08/16/2024 11:00 AM EDT Cardiac Studies Cardiology, [facility] 132 [facility] [place] [address] [facility] 132 [place] [address] Health Maintenance Due Date Last Done Comments Zoster Vaccines (1 of 2) 1954 Hepatitis B (1 of 3 - Risk 3-dose series) 1996 COVID-19 Vaccine ( season) 2023 09/29/2022, 09/13/2021, 01/05/2021, Additional history exists Depression Screening 02/09/2024 02/08/2023 CKD PHOS USE SMARTSET 52228 05/01/2024 07/, 11/04/2022, 02/14/2019 Albumin/Creatinine Ratio 06/15/2024 023, 05/01/2023, 07/04/2022, Additional history exists CKD HGB USE SMARTSET 86405 08/29/202408/29, 08/29/2023, 08/11/2023, Additional history exists DXA Scan 11/09/2024 11/09/2022, 01/21, 11/03/2015, Additional history exists DTaP,Tdap,and Td Vaccines (3 - Td or Tdap) 06/04/2029 06/04/2019, 01/28/2019, 05/26/2008 Pneumococcal Vaccine: 65+ Years Completed 05/24/2016, 11/14/2001 VITAMIN D LEVEL ONCE IN A LIFETIME-USE SMARTSET# [id number] Completed 05/01/2023, 11/04/2022, 02/14/2019, Additional history exists [...] Comments INR FINGERSTICK, POINT OF CARE STAT 09/12/2023 11:33 AM EST S/P aortic valve replacement documented in this encounter Results * INR FINGERSTICK, POINT OF CARE (09/12/2023 11:33 AM EST) Fingerstick INR 2.6 INR 11:36 AM EST [facility] 60-86 Blood 09/12/2023 11:3 3 AM EST 09/12/2023 11:36 AM EST Narrative [facility] 60-86 - 09/12/2023 11:36 AM EST Therapeutic ranges for non-operative patients: Prophylaxsis/treatment of DVT: (Range:2.0-3.0) Treatment of pulmonary embolism:(Range:2.0-3.0) Prevention of systemic embolism from: -tissue heart valves -acute myocardial infarction -valvular heart disease -atrial fibrillation (Range: 2.0-3.0) Mechanical prosthetic valves: (Range: 2.5-3.5) Raquel Alcantara [facility] LAB POINT OF CA RE TEST DOCKED DEVICE UNSOLICITED RESULTS [facility] [address] [place] [id number] documented in this encounter Visit Diagnoses Diagnosis S/P aortic valve replacement- Primary Heart valve replaced by other means documented in this encounter Additional Health Concerns Infection Onset Date Last Indicated Resolved Time Varicella zoster 08/01/2022 08/01/2022 documented as of this encounter Care Teams Chicken Handler Relationship Specialty Start Date End Date Yaya Frederick MD [address] [place] [phone] PCP - General Family Medicine 05/04/21 documented as of this encounter"
--- OUTSIDE RECORDS SUMMARY | 2023-12-12 09:24 | External Medical Summary | Summary of Care ---
Author Name Unknown Organization [facility] Address [address] [place] [address] Phone [phone] Care Team Providers Care Tow Driver Name Role Phone Yaya Frederick MD Primary Care Provider [phone] Encounter Details Date Type Department Care Team (Late st Contact Info) Description 06/19/2023 Telephone Cardiology, [facility] [address] [place] [address] Services, Scheduling [address] [place] [address] Allergies Active Allergy Reactions Criticality Noted Date [...] as of this encounter (statuses as of 09/18/2023) Medications Medication Sig Dispensed Refills Start Date End Date Status BENADRYL 25 MG PO TABS 1 TABLET EVERY 4 TO 6 HOURS NEEDED 0 Active GRX ANALGESIC BALM EX OINT Apply topically to affected area. 0 07/01/20 13 Active Azelastine HCl 0.15 % Nasal SolutionIndications :Post-nasal discharge Administer into nostril 1 [place] in the morning AND 1 [place] before bedtime. 30 mL 0 11/30/19 22 Active Ipratropium [place] 0.03 % Nasal Solution Administer into each [...] Tablet (Crestor)Indication s:NSTEMI (non-ST elevated myocardial infarction) ([facility]) Take 1 Tablet by mouth in the morning. 90 Tablet 3 05/18/20 23 Active Nitroglycerin 0.4 MG Sublingual Tablet Sublingual (Nitrostat)Indicati ons:NSTEMI (non-ST elevated myocardial infarction) ([facility]) Place 1 Tablet under the tongue as needed for Pain, Chest. May repeat 3 times. If chest pain continues, call 911. 25 Tablet 11 05/18/20 23 Active Probiotic Acidophilus Oral Capsule Take by mouth daily. 0 Active CALTRATE 600+D 600-400 MG-UNIT PO TABS one tablet twice daily 0 06/17/20 09 023 Discontinued MAG-OXIDE 400 MG PO TABSIndications:Chr onic ischemic [...] one tablet daily as directed by the [facility] clinic 100 Tablet 3 08/09/20 22 023 Discontinued(Re fill) Estrogens Conjugated 0.625 MG/GM Vaginal Cream (Premarin)Indicatio [...] morning. 0 05/09/20 23 023 Discontinued(Re fill) Losartan Potassium 25 MG Oral Tablet (Cozaar) Take 0.5 Tablets by mouth in the morning. 0 05/09/20 23 023 Discontinued(Re fill) Isosorbide Mononitrate ER 60 MG Oral Tablet Extended Release 24 Hour (Imdur) Take 1 Tablet by mouth in the morning. 0 06/10/20 23 023 Discontinued(Re fill) documented as of this encounter (statuses as of 09/18/2023) Active Problems Problem Noted Date Diagnosed Date [...] as of this encounter (statuses as of 09/18/2023) Resolved Problems Problem Noted Date Diagnosed Date [...] Stent Restenosis in Drug-Eluting Stents Project # Automobile Bumper Straightener: Wilda Serrano MD [phone] GENOMICS CARDIO RESEARCH OTHER*[id number] 01/09/2007 11/29/2016 Overview: Renamed Per Clinical Trials Billing Project. 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 # [id number] Automobile Bumper Straightener: Wilda Serrano MD [phone] Type 2 diabetes mellitus wit h hemoglobin [...] as of this encounter (statuses as of 09/18/2023) Immunizations Name Administration Dates Next Due COVID-19 [...] Notes * Telephone Encounter - Maria Elena Otero OSA - 06/20/2023 9:25 AM EDT Spoke with pt. Pt is scheduled 07/07/23. * Telephone Encounter - Angeles Sommers OSA - 06/19/2023 4:10 PM EDT Pt needs Return in 1 M for an [facility] visit to monitor device longevity. Due . Please call pt with appt documented in this encounter Plan of Treatment Upcoming Encounters Date Type Department Care Team ([facility] st Contact Info) Description 09/27/2023 11:40 AM EST Office Visit [address] [phone] Oneida Briggs PA-C [address] [place] [address] 10/02/2023 3:30 PM EST Office Visit Cardiology, [facility] [address] [facility] [place] [address] Bucky Calvo PA-C [address] [place] [address] 10/06/2023 10:40 AM EST Office Visit Otolaryngology [address] [place] [phone] Keely Tanner PA-C [address] [place] [address] 10/25/2023 10:40 AM EST Office Visit Nephrology [address] [place] [phone] Alfa Holcomb MD 200 [place] [address] 10/25/2023 11:20 AM EST Anticoagulation Pharmacy [address] [phone] Pharmacist2, [facility] [address] [address] 11/20/2023 1:40 PM EST Office Visit [address] [phone] Yaya Frederick MD [address] [place] [address], [place] [address] 12/01/2023 2:15 PM EST Office Visit Hematology/Oncology [facility] [address] [facility] [place] [address] Agustín Sullivan MD [address] [facility] [place] [address] 08/16/2024 11:00 AM EDT Cardiac Studies Cardiology, [facility] 132 [facility] [place] [address] [facility] [address] [facility] [place] [address] Health Maintenance Due Date Last Done Comments Zoster Vaccines (1 of 2) 1955 Hepatitis B (1 of 3 - Risk 3-dose series) 1996 COVID-19 Vaccine ( season) 2023 09/29/2022, 09/13/2021, 01/05/2021, Additional history exists Depression Screening 02/09/2024 02/08/2023 CKD PHOS USE SMARTSET 58992 05/01/202404/22, 11/04/2022, 02/14/2019 Albumin/Creatinine Ratio 06/15/20242 023, 05/01/2023, 07/04/2022, Additional history exists CKD HGB USE SMARTSET 07478 08/29/202408/29, 08/29/2023, 08/11/2023, Additional history exists DXA Scan 11/09/2024 11/09/2022, 01/21, 11/03/2015, Additional history exists DTaP,Tdap,and Td Vaccines (3 - Td or Tdap) 06/04/2029 06/04/2019, 01/28/2019, 05/26/2008 Pneumococcal Vaccine: 65+ Years Completed 05/24/2016, 11/14/2001 VITAMIN D LEVEL ONCE IN A LIFETIME-USE SMARTSET# [id number] Completed 05/01/2023, 11/04/2022, 02/14/2019, Additional history exists [...] documented as of this encounter Care Teams Tow Driver Relationship Specialty Start Date End Date Yaya Frederick MD [address] [place] [address] PCP - General Family Medicine 05/04/21 documented as of this encounter
[2023-12-12] MEDS: TORSEMIDE 20 MG TAB PO SCH (11:19)
--- NOTE | 2023-12-12 11:20 | Electrocardiogram Report ---
Test Reason : Blood Pressure : / mmHG Vent. Rate : 104 BPM Atrial Rate : 000 BPM P-R Int : 000 ms QRS Dur : 110 ms QT Int : 318 ms P-R-T Axes : 000 -58 094 degrees QTc Int : 418 ms Atrial fibrillation with rapid ventricular response with premature ventricular or aberrantly conducte d complexes Left axis deviation Right bundle branch block Anterior infarct , age undetermined T wave abnormality, consider lateral ischemia Abnormal ECG When compared with ECG of 17-SEP-2023 02:16, QRS duration has decreased Anterior infarct is now Present T wave inversion no longer evident in Inferior leads T wave inversion less evident in Anterolateral leads Confirmed by Wale Claudio ([id number]) on 12/12/2023 11:19:17 AM Referred By: REFERRED SELF Confirmed By:Edgar Claudio
[2023-12-12] MEDS: ADVANCED PROBIOTIC 650 MG CAPSULE PO SCH (11:25)
[2023-12-12] MEDS: busPIRone 5 MG TAB PO SCH (11:27)
[2023-12-12] MEDS: ROSUVASTATIN CALCIUM 20 MG TAB PO SCH (11:28)
[2023-12-12] MEDS: TAMSULOSIN HCL 0.4 MG CAP PO SCH (11:28)
[2023-12-12] MEDS: HYDROXYUREA 500 MG CAP PO SCH (11:29)
[2023-12-12] MEDS: ISOSORBIDE MONO EXTENDED REL 60 MG TABCR PO SCH (11:29)
[2023-12-12] MEDS: CLOPIDOGREL BISULFATE 75 MG TAB PO SCH (11:29)
[2023-12-12] MEDS: FAMOTIDINE 20 MG TAB PO SCH (11:30)
[2023-12-12] MEDS: POTASSIUM CHLORIDE CRTAB 20 MEQ TABCR PO SCH (11:30)
[2023-12-12] MEDS: METOPROLOL SUCC 50MG EXT REL TAB PO SCH (11:37)
[2023-12-12] MEDS: FLUTICASONE PROPIONATE NA SPR 16 GM BTL SCH (11:39)
[2023-12-12] MEDS: CLOTRIMAZOLE/BETAMETHASONE CR 15 GM TUBE EXT SCH (11:47)
[2023-12-12] MEDS: SODIUM CHLORIDE 0.9% 500 ML IV SCH ×2 (11:49→20:56)
[2023-12-12] MEDS: LACTULOSE SYRUP 10 GM/15 ML BTL 960 ML PO SCH (11:52)
[2023-12-12] MEDS: WARFARIN SOD 1 MG TAB PO SCH (14:16)
[2023-12-12] MEDS ORDERED: fentaNYL citrate PF 100 MCG/2 ML VIAL ONE (14:31)
[2023-12-12] MEDS ORDERED: AZTREONAM 2,000 MG in DEXTROSE 5% MINI-B 100 ML IV SCH (15:00)
[2023-12-12] MEDS: HYDROmorphone INJ 0.5 MG/0.5 ML SYR IV PRN (15:57)
--- NOTE | 2023-12-12 16:31 | Communication Note ---
Date of Service: December 12, 2023 Patient seen and examined in the emergency department. She appears lethargic; awake evaluate voice. She reports abdominal pain on the left flank Labs reviewed; concern for UTI CT abdomen pelvis reviewed; moderate degree of left hydronephrosis with 6 mm obstructing calculus. Patient to undergo cystoscopy with ureteral stent placement today. On physical exam; Constitutional: Awake, oriented to self. Not in distress. Respiratory: normal respiratory effort, lungs clear to auscultation, no wheeze, rales, rhonchi. Normal insp/exp effort, no accessory muscle use Cardiovascular: RRR, no murmur, no edema Vessels: no JVD or carotid bruit Chest: normal inspection of chest Abdomen: Tenderness in left flank. Musculoskeletal: no cyanosis or clubbing, extremities motor strength 5/5 Skin: no rashes, warm and dry normal turgor Neurologic: PERRL, EOMI, accommodation nl, grossly moves all extremities. Full progress note to follow tomorrow
--- NOTE | 2023-12-12 17:08 | Anesthesiology Consultation ---
Date of Service December 12, 2023 Assessment & Plan (1) Encounter for pre-operative examination: Chart Review Chart Review: Acceptable Risk for Surgery (urgent) History Surgery Operation Date: 12/12/23 08:00 Proposed Procedures p Cystoscopy, Left Ureteral Stent Placement - Wale Castellano MD Height/Weight Height: 4 ft 11 in Weight: 85.7 kg Allergies Allergy/AdvReac Type Severity Reaction Status Date / Time amiodarone Allergy Severe EDEMA Verified 09/12/23 16:05 FACE/LIPS/TONGUE, RASH azithromycin [From Zithromax] Allergy Severe THROAT Verified 09/12/23 16:05 SWELLED, DENIED SHORT OF BREATH. adhesive Allergy Intermediate Rash Verified 09/12/23 16:05 etodolac Allergy Intermediate PRURITIS-IO Verified 09/12/23 16:05 DINE iodine Allergy Intermediate itching Verified 09/12/23 16:05 Penicillins Allergy Intermediate ITCHY RASH Verified 09/12/23 16:05 Sulfa (Sulfonamide Allergy Intermediate Rash Verified 09/12/23 16:05 Antibiotics) cephalexin [From Keflex] Allergy Unknown PER Verified 09/12/23 16:05 GMG--TRUE REACTION TO KEFLEX gabapentin AdvReac Intermediate sedation Verified 09/12/23 16:05 lisinopril AdvReac Intermediate Swelling Verified 09/12/23 16:05 of Lip/Tongue/Throat simvastatin AdvReac Unknown CAN'T Verified 09/12/23 16:05 REMEMBER Medications Home Medications Medication Instructions Recorded Confirmed Last Taken acidophilus 25 million 2 tab PO DAILY 12/12/23 12/12/23 Unknown cell-pectin, citrus 100 mg tablet buspirone 5 mg tablet 5 mg PO BID 12/12/23 12/12/23 Unknown clopidogrel 75 mg tablet 75 mg PO DAILY 12/12/23 12/12/23 Unknown clotrimazole-betamethasone 1 1 applic topical BID 12/12/23 12/12/23 Unknown %-0.05 % topical cream famotidine 20 mg tablet 20 mg PO DAILY 12/12/23 12/12/23 Unknown hydroxyurea 500 mg capsule 500 mg PO UD 12/12/23 12/12/23 Unknown isosorbide mononitrate 60 mg 60 mg PO DAILY 12/12/23 12/12/23 Unknown tablet,extended release 24 hr lactulose 10 gram/15 mL oral 15 ml PO TID 12/12/23 12/12/23 Unknown solution metoprolol succinate 100 mg 150 mg PO BID 12/12/23 12/12/23 Unknown tablet,extended release 24 hr mometasone 50 mcg/actuation nasal 1 spray intranasal DAILY 12/12/23 12/12/23 Unknown spray potassium chloride 20 mEq 20 meq PO BID 12/12/23 12/12/23 Unknown tablet,extended release(part/cryst) rosuvastatin 20 mg tablet 20 mg PO DAILY 12/12/23 12/12/23 Unknown torsemide 20 mg tablet 80 mg PO DAILY 12/12/23 12/12/23 Unknown warfarin 1 mg tablet 1 mg PO DAILY 12/12/23 12/12/23 Unknown Active Medications Generic Name Dose Route Start Last Admin Trade Name Freq PRN Reason Stop Dose Admin Betamethasone/Clotrimazole 1 appln 12/12/23 09:00 12/12/23 11:47 Clotrimazole/Betamethasone Cr 15 Gm Tube EXT 01/11/24 08:59 Not Given BID DYLAN Buspirone HCl 5 mg 12/12/23 09:00 12/12/23 11:27 Buspirone 5 Mg Tab PO 01/11/24 08:59 5 mg BID DYLAN Administration Clopidogrel Bisulfate 75 mg 12/12/23 09:00 12/12/23 11:29 Clopidogrel Bisulfate 75 Mg Tab PO 01/11/24 08:59 75 mg DAILY DYLAN Administration Famotidine 20 mg 12/12/23 09:00 12/12/23 11:30 Famotidine 20 Mg Tab PO 01/11/24 08:59 20 mg DAILY DYLAN Administration Fluticasone Propionate 1 sprays 12/12/23 09:00 12/12/23 11:39 Fluticasone Propionate Na Spr 16 Gm Btl NA 01/11/24 08:59 1 sprays DAILY DYLAN Administration Hydromorphone HCl 0.5 mg 12/12/23 06:54 12/12/23 15:57 Hydromorphone Inj 0.5 Mg/0.5 Ml Syr IV 12/26/23 06:53 0.5 mg Q4H PRN Administration Pain Hydroxyurea 500 mg 12/12/23 09:00 12/12/23 11:29 Hydroxyurea 500 Mg Cap PO 01/11/24 08:59 500 mg [id number] DYLAN Administration Isosorbide Mononitrate 60 mg 12/12/23 09:00 12/12/23 11:29 Isosorbide [place] Extended Rel 60 Mg Tabcr PO 01/11/24 08:59 60 mg DAILY DYLAN Administration Lactobacillus Acidophilus 2 cap 12/12/23 09:00 12/12/23 11:25 Advanced Probiotic 1250 Mg Capsule PO 01/11/24 08:59 2 cap DAILY DYLAN Administration Lactulose 10 gm 12/12/23 09:00 12/12/23 13:01 Lactulose Syrup 10 Gm/15 Ml Btl 960 Ml PO 01/11/24 08:59 Not Given TID DYLAN Metoprolol Succinate 150 mg 12/12/23 09:00 12/12/23 11:37 Metoprolol Succ 50mg Ext Rel Tab PO 01/11/24 08:59 Not Given BID DYLAN Potassium Chloride 20 meq 12/12/23 09:00 12/12/23 11:30 Potassium Chloride Crtab 20 Meq Tabcr PO 01/11/24 08:59 20 meq BID DYLAN Administration Rosuvastatin Calcium 20 mg 12/12/23 09:00 12/12/23 11:28 Rosuvastatin Calcium 20 Mg Tab PO 01/11/24 08:59 20 mg DAILY DYLAN Administration Tamsulosin HCl 0.4 mg 12/12/23 09:00 12/12/23 11:28 Tamsulosin Hcl 0.4 Mg Cap PO 01/11/24 08:59 0.4 mg QAM DYLAN Administration Torsemide 80 mg 12/12/23 09:00 12/12/23 11:19 Torsemide 20 Mg Tab PO 01/11/24 08:59 80 mg DAILY DYLAN Administration Warfarin Sodium 1 mg 12/12/23 16:00 12/12/23 14:16 Warfarin Sod 1 Mg Tab PO 01/11/24 15:59 Not Given DAILY@1600 DYLAN Past Medical History Medical History Coronary artery disease with angina pectoris CKD (chronic kidney disease), stage III Chronic diastolic CHF (congestive heart failure) Cardiac pacemaker in situ Sinus node dysfunction ASCVD (arteriosclerotic cardiovascular disease) 2005 - CABG x 3, bioproesthetic aortic valve replacement 2007 - PCI and stenting to SVG to RCA occlusion Atrial fibrillation, persistent Current use of salvage determiner 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 Tinnitus of left ear Sensorineural hearing loss of both ears HLD (hyperlipidemia) HTN (hypertension) Essential thrombocythemia CKD (chronic kidney disease) stage 2, GFR 60-89 ml/min UTI due to extended-spectrum beta lactamase (ESBL) producing Escherichia coli Generalized weakness Anemia 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) Replacement of aortic valve (Unknown) "[facility] 2005 Mary-Good " Dermatitis Carotid artery occlusion (Unknown) Past Family History Family History Father Prostate cancer Mother Diabetes Sister Coronary heart disease Past Surgical History Surgical History Status post transcatheter aortic valve replacement (TAVR) using bioprosthesis History of colonoscopy with polypectomy History of cystoscopy History of tubal ligation Total abdominal hysterectomy with bilateral salpingo-oophorectomy (Unknown) Stented coronary artery (Unknown) Placement of stent in coronary artery (Unknown) "RCA December 2006 " Implantation of aortic valve prosthesis or synthetic device (Unknown) Coronary artery bypass grafting (Unknown) "[facility] April 2006 VARGHESE to LAD SVG's to diagonal, obtuse marginal, RCA " Social History Smoking Status: Never smoker Do You Dip or Chew Tobacco: No Hx Alcohol Use: No Hx Substance Use: No Physical Exam Vital Signs Last Vital Signs Temp 36.5 C 12/12/23 01:19 Pulse 99 H 12/12/23 16:02 Resp 22 12/12/23 16:02 BP 125/91 12/12/23 15:12 Pulse Ox 97 12/12/23 16:02 O2 Del Method Nasal Cannula 12/12/23 16:02 O2 Flow Rate 4 12/12/23 16:02 Testing Laboratory Results 12/12/23 07:29 12/12/23 07:29 PT 26.2 Seconds (9.0-12.0) H 12/12/23 02:18 INR 2.5 (0.9-1.1) H 12/12/23 02:18 Urine Color Yellow 12/12/23 04:29 Urine Appearance Turbid (Clear) A 12/12/23 04:29 Urine pH 5.5 (4.5-7.5) 12/12/23 04:29 Ur Specific [place] 1.012 (1.000-1.030) 12/12/23 04:29 Urine Protein 1+ (Negative) H 12/12/23 04:29 Urine Glucose (UA) Negative (Negative) 12/12/23 04:29 Urine Ketones Negative (Negative) 12/12/23 04:29 Urine Nitrite Negative (Negative) 12/12/23 04:29 Ur Leukocyte Esterase 3+ (Negative) H 12/12/23 04:29 Urine WBC (Auto) >30 /hpf (0-5) H 12/12/23 04:29 Urine RBC (Auto) 5-10 /hpf (0-4) H 12/12/23 04:29 U Hyaline Cast (Auto) 1-5 /lpf (0-5) 12/12/23 04:29 U Epithel Cells (Auto) >30 /lpf (0-5) H 12/12/23 04:29 Urine Bacteria (Auto) 2+ (Negative) H 12/12/23 04:29 Electrocardiogram Date: 12/12/23 Findings: + AFIB @ (104) and + RBBB Echocardiogram Date: 09/13/23 EF: 40-45% Valvular Disease: + MR (mod to severe) severe TR
[2023-12-12] MEDS: ALBUT/IPRATROP 3MG/0.5MG NEB 3 ML VIAL NEB SCH (17:24)
[2023-12-12] MEDS: SODIUM CHLOR 7% 4 ML NEB NEB SCH (17:25)
--- NOTE | 2023-12-12 17:49 | XRay Report ---
XR chest 1V portable CLINICAL HISTORY: Desaturation TECHNIQUE: Single frontal radiograph of the chest was obtained. Comparison: Comparison is made to chest radiograph 09/12/2023 FINDINGS: Lines and tubes are stable. Cardiomegaly is noted. The aortic arch is calcified. The lungs are clear. Small bilateral pleural effusions are seen. IMPRESSION: Faint bibasilar airspace opacities which may represent atelectasis, pneumonia, and/or aspiration. Sma ll bilateral pleural effusions. ACT 112: Negative or not required by law. Electronically signed by: Pablo Garza M.D. 12/12/2023 5:47 PM
[2023-12-12] MEDS: FUROSEMIDE 40 MG/4 ML VIAL IV ONE (18:03)
[2023-12-12] MEDS ORDERED: DEXAMETHASONE SOD INJ 4 MG/ML VIAL ONE (18:42)
[2023-12-12] MEDS ORDERED: PROPOFOL IV EMULSION 10 MG/ML 20 ML VIAL IV ONE (18:42)
[2023-12-12] MEDS ORDERED: ONDANSETRON INJ 2 MG/ML 2 ML VIAL ONE (18:42)
[2023-12-12] MEDS ORDERED: LIDOCAINE 2% 2 ML VIAL/AMP(20MG/ML) INFIL ONE (18:43)
--- NOTE | 2023-12-12 19:02 | Operative Report ---
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 Upon arrival, appropriate antibiotics and anesthesia were administered and the patient was placed in dorsal lithotomy position and prepped and draped in sterile fashion. Again the case to pass 21 Taiwanese resectoscope with 30 degree lens and visual obturator. Inspection revealed healthy appearing bladder. Of note she does have a very large rectocele, she did not appear to have a lot of anterior prolapse. The bladder mucosa itself was quite healthy. Ureteral orifices were in orthotopic position and there was not a significant amount of inflammation or debris within the bladder. I turned my attention to the left UO and cannulated with a sensor wire and a 5 Taiwanese open-ended catheter. I could feel resistance in the proximal ureter consistent with the stone seen on preoperative imaging. I was able to bypass the stone and advance the wire into the kidney. I then placed a 6 Taiwanese by 24 cm double-J stent seeing good curl in the kidney as well as the bladder. There was purulent urine draining through and around the stent after deployment. I emptied her bladder and irrigated her bladder out. Anesthesia was then reversed and she was taken to the recovery room in stable condition. There were no complications. I attest to the content of the Intraoperative Record and any orders documented therein. Any exceptions are noted below.
--- NOTE | 2023-12-12 19:08 | Anesthesiology Progress Note ---
Date of Service December 12, 2023 Anesthesia Post Procedure Vital Signs Vital Signs: Temp Pulse Pulse Resp BP BP BP 12/12/23 18:53 36.6 C 103 H 20 96/53 L 12/12/23 18:10 36.8 C 92 H 18 86/54 L 12/12/23 17:00 96 H 24 92/62 L 12/12/23 16:02 99 H 22 12/12/23 15:12 125/91 12/12/23 15:06 101 H 12/12/23 15:03 99 H 18 12/12/23 14:00 104 H 22 118/64 12/12/23 11:15 106 H 22 96/67 L 12/12/23 08:00 104 H 17 12/12/23 07:04 96/67 L 12/12/23 07:04 87 24 12/12/23 07:03 101 H 16 12/12/23 06:54 12/12/23 06:46 106 H 26 H 12/12/23 04:00 103 H 26 H 12/12/23 02:26 92 H 21 12/12/23 02:25 94 H 12/12/23 01:19 36.5 C 94 H 22 138/93 Pulse Ox Pulse Ox O2 Del Method O2 Del Method O2 Flow Rate 12/12/23 18:53 98 Oxymask 4 12/12/23 18:10 92 Room Air, Nasal Cannula 3 12/12/23 17:00 97 Nasal Cannula 5 12/12/23 16:02 97 Nasal Cannula 4 12/12/23 15:12 12/12/23 15:06 12/12/23 15:03 100 Nasal Cannula 4 12/12/23 14:00 95 Nasal Cannula 4 12/12/23 11:15 94 Nasal Cannula 4 12/12/23 08:00 94 12/12/23 07:04 12/12/23 07:04 88 L 12/12/23 07:03 90 12/12/23 06:54 94 Room Air 12/12/23 06:46 12/12/23 04:00 96 12/12/23 02:26 96 12/12/23 02:25 12/12/23 01:19 97 Nasal Cannula 3 Transfer of Care Handoff Completed per policy Notes Mental Status: alert / awake / arousable Patient Amnestic to Procedure: Yes Nausea / Vomiting: adequately controlled Pain: adequately controlled Airway Patency, RR, SpO2: stable & adequate BP & HR: stable & adequate Hydration State: stable & adequate Anesthetic Complications: no major complications apparent
--- NOTE | 2023-12-12 19:51 | Fluoroscopy Report ---
FL KUB CLINICAL HISTORY: LT CYSTO TECHNIQUE: 1 views were obtained with the C-arm in the OR with the above procedure. Total fluoroscopy time was 6 seconds. Comparison: Comparison is made to CT abdomen pelvis 12/12/2023 FINDINGS/IMPRESSION: Intraoperative images were obtained of the cystogram with stent placement. In th e final images, the stent is in satisfactory position. Please correlate with intraoperative fluoroscopy and operative report. ACT 112: Negative or not required by law. Electronically signed by: Pablo Garza M.D. 12/12/2023 7:50 PM
[2023-12-13] MEDS: SODIUM CHLORIDE 0.9% 500 ML IV SCH ×2 (05:54→10:30)
[2023-12-13 07:11] LABS: Hematocrit (blood only) 35.4 % (37.0-47.0); Hemoglobin 10.5 g/dl (12.0-16.0); Mean Corpuscular Hemoglobin 34.4 pg (25.0-34.0); Mean Corpuscular Hgb Conc 29.7 g/dL (32.0-36.0); Mean Corpuscular Volume 116.1 fL (80.0-100.0); Mean Platelet Volume 11.4 fL (9.4-12.4); Platelet Count 130 K/uL (130-400); RDW Coefficient of Variation 17.7 % (11.5-14.5); RDW Standard Deviation 76.3 fL (36.4-46.3); Red Blood Count 3.05 M/uL (4.20-5.40); White Blood Count 13.87 K/ul (4.8-10.8)
[2023-12-13 07:29] LABS: Basophils # (auto) 0.02 K/uL (0.00-0.20); Basophils % (auto) 0.1 %; Immature Granulocytes # (auto) 0.26 K/uL (0.01-0.20); Immature Granulocytes % (auto) 1.9 %; Lymphocytes # (auto) 0.24 K/uL (1.20-3.40); Lymphocytes % (auto) 1.7 %; Monocytes % (auto) 2.2 %; Neutrophils # (auto) 13.05 K/uL (1.40-6.50); Neutrophils % (auto) 94.1 %
[2023-12-13 07:41] LABS: Albumin Globulin Ratio 0.9 (0.9-2); Albumin Level 3.2 gm/dl (3.4-5.0); BUN Creatinine Ratio 20.3 (10-20); Bilirubin,Total 1.2 mg/dl (0.2-1.0); Calcium 8.3 mg/dl (8.6-10.3); Creatinine Clr Calc Pharmacy 14.1 ml/min; Est GFR (African American) 18.4 ml/min; Est GFR (Non-African American) 15.9 ml/min; Globulin 3.6 gm/dl (2.5-4.0); Potassium 5.3 mmol/L (3.5-5.1); Total Protein 6.8 gm/dl (6.0-8.3)
[2023-12-13 07:43] LABS: INR 3.4 (0.9-1.1); Prothrombin Time 34.8 Seconds (9.0-12.0)
--- NOTE | 2023-12-13 07:58 | Urology Progress Note ---
Date of Service December 13, 2023 Assessment & Plan (1) Left ureteral calculus: (2) RADHA (acute kidney injury): (3) Complicated UTI (urinary tract infection): Plan 88yo F with an obstructing left ureteral stone and concern for UTI. POD #1 s/p cystoscopy and left ureteral stent placement Tolerating the ureteral stent with minimal bother. Afebrile, hypotensive. Labs reviewed - WBC 13.87, Hemoglobin 10.5, Creatinine 2.61. Not unexpected for patient to have increased leukocytosis and creatinine following stent placement. Continue to trend. Urine culture prelim gram negative bacilli, blood cultures collected and pending. Was on Ertapenem, now switched to Zosyn. Voiding spontaneously, continue to monitor. Bladder scan prn. We discussed possible catheter for maximum decompression, pt refused. Continue supportive care and monitoring. Continue antibiotics and tailor as culture data becomes available. No plan for further urologic intervention during this admission. Will arrange outpatient follow-up with our service for definitive stone management after the infection has been treated. Urology will follow along. Admission and Anticipated Discharge Date Admission Date: December 12, 2023 Subjective Pt examined at bedside this AM. Awake, sitting in bedside chair eating breakfast on arrival. No acute distress. Reports some chills and just overall not feeling well. Tolerating the stent with minimal bother. She denies any significant pain. Denies fever, nausea, vomiting. Voiding spontaneously. Denies hematuria or dysuria. Review of Systems Constitutional: as per Subjective / HPI Genitourinary: as per Subjective / HPI Physical Exam Constitutional: no acute distress ENMT: Ears: + hearing impairment Respiratory: no respiratory distress and no labored breathing Musculoskeletal: Head/Neck/Chest: normocephalic Skin: No visible rashes or lesions to exposed skin areas Neurologic: moves all extremities and awake Psychiatric: Orientation: alert and cooperative Results & Data Vital Signs (Past 12 Hours) Vital Signs Temp Pulse Pulse Resp BP BP Pulse Ox 12/13/23 07:36 89 18 94/62 L 96 12/13/23 07:07 89 18 96 12/13/23 06:23 98/60 L 12/13/23 05:38 85 18 78/44 L 98 12/13/23 02:44 34.8 C L 88 18 100/55 L 96 12/13/23 02:06 84/56 L 12/13/23 00:41 88 18 95/60 L 98 12/12/23 23:17 89 92/62 L 12/12/23 22:55 36.2 C L 89 18 89/53 L 96 12/12/23 22:18 89 18 93/57 L 97 12/12/23 21:41 18 81/50 L 96 12/12/23 21:17 85 18 94/62 L 98 12/12/23 20:46 93 H 17 76/50 L 78/50 L 98 12/12/23 20:15 99 H 16 94/58 L 95 12/12/23 20:10 12/12/23 20:00 89 18 92/61 L 99 Pulse Ox O2 Del Method O2 Del Method O2 Flow Rate O2 Flow Rate 12/13/23 07:36 Nasal Cannula 3.0 12/13/23 07:07 Nasal Cannula 3 12/13/23 06:23 12/13/23 05:38 Nasal Cannula 3 12/13/23 02:44 Nasal Cannula 3 12/13/23 02:06 12/13/23 00:41 Nasal Cannula 4 12/12/23 23:17 12/12/23 22:55 Nasal Cannula 4 12/12/23 22:18 Nasal Cannula 4 12/12/23 21:41 Nasal Cannula 4 12/12/23 21:17 Nasal Cannula 4 12/12/23 20:46 Nasal Cannula 4 12/12/23 20:15 Nasal Cannula 4 12/12/23 20:10 94 Nasal Cannula 4 12/12/23 20:00 Nasal Cannula 4 PG Care Time/CCT Total # of Minutes Spent Total Time Spent with Patient: Total time spent is greater than 50% in coordination of care (as documented) at patient's floor/unit and/or counseling patient: Coding Level of Care Code 11634 SUB INP/OBS CARE 2/35MIN Diagnoses Left ureteral calculus N20.1 RADHA (acute kidney injury) N17.9 Complicated UTI (urinary tract infection) N39.0
[2023-12-13] MEDS: ERTAPENEM SODIUM 500 MG in SYRINGE 0 ML IV SCH (08:20)
--- NOTE | 2023-12-13 08:35 | Hospitalist Progress Note ---
Date of Service December 13, 2023 Assessment & Plan (1) Left ureteral calculus: Plan Pt is an 88yo female with past medical history significant for chronic hypoxemic respiratory failure on 3 L oxygen, hyperlipidemia, obstructive sleep apnea on oxygen, history of CAD s/p stent, sinus node dysfunction s/p pacemaker, heart failure with reduced ejection fraction, asymptomatic bilateral carotid artery stenosis, hypertension, chronic atrial fibrillation history of RADHA, CKD stage I II, restless leg syndrome, bilateral leg edema, essential thrombocythemia, s/p aortic valve replacement, lumbar spinal stenosis presenting with severe back and left flank pain that started the evening prior to arrival. Left ureteral calculus Renal colic Pt presented with severe back and left flank pain On admission afebrile, tachycardic and WBC elevated >10K UA suggestive of infection, urine Cx was obtained, and is currently growing gram negative rods CT ab/d pelvis concerning for moderate degree left hydronephrosis with 6 mm obstructing calculus in the proximal left ureter Was placed on cautious IV fluid hydration given CHF Hx Was initially started on IV Azactam, then switched to Ertapenem by previous provider based on prior Cx from 08/2023 that grew ESBL sensitive to Ertapenem IV Dilaudid as needed, IV antiemetics as needed Urology was consulted, appreciate recs: -s/p L ureteral stent placement on 12/12/23 Severe sepsis On 12/13/23 pt hypotensive with reports of receiving fluid boluses overnight for the same WBC increased to >13K, tachycardia, hypothermia all noted criteria for sepsis, pt reporting shaking and chills Lactate elevated at 4.6 and blood Cx x2 ordered and pending Urine Cx currently growing gram negative rods as noted above- discussed with the lab sensitivities will not be back until tomorrow. Ertapenem switched to Zosyn to which last Cx in Aug 2023 was sensitive (noted itchy rash allergy, NOT anaphylaxis) Will monitor for fluid overload with Zosyn use, continue diuresis as noted below -Later in the day on 12/13, pt remained hypotensive with persistent elevated lactate despite gentle fluid hydration in the setting of CHF and a fib with now rvr. Transferred to the ICU for pressor support. Appreciate ICU recs ID consult-appreciate recs History of chronic systolic CHF EF of 40 to 45% on echo done in August 2023 Pt also with bilateral lower extremity edema On home torsemide 80mg with scheduled potassium Cardiology consulted- appreciate recs -holding diuresis at this time Noted baseline of 3L of oxygen use, monitor for fluid overload/increase in oxygen requirement History of chronic atrial fibrillation On metoprolol succinate 150mg bid for rate control, has been on hold due to parameters Also on Coumadin for 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, monitor INR INR currently elevated at 3.4 on 12/13, will hold warfarin at this time Currently HR 120-130s, cardiology consulted as above, appreciate recs S/p bioprosthetic aortic valve replacement On coumadin INR goal 2-3 Hypertension On metoprolol succinate, Imdur and torsemide at home. Currently hypotensive in setting of severe sepsis noted above Cardiology consulted in setting of a fib with rvr, CHF and hypotension currently noted, appreciate recs -home imdur, metoprolol and torsemide d/c at this time by cardiology Pt transferred to the ICU for BP pressor support Acute on chronic kidney disease stage 3/4 Presented with creatinine of ~ 2, appears to be baseline Currently elevated to 2.61 Gentle hydration as noted above Avoid nephrotoxic meds/contrast as much as possible Continue to monitor Acute on Chronic Anemia Hgb 11.9 on admission Pending AM folate, b12 studies as well as iron, ferritin Replete as needed Hyperkalemia K of 5.3 on admission Holding home potassium supplements Monitor with AM labs Hyperglycemia Prediabetes Glucose levels have been elevated, as high as 200 Last hgb1c of 6.2 from 2022, repeat pending in the AM ISS while hospitalized, continue to monitor levels History of CAD s/p stent On Plavix, statin, metoprolol succinate and Imdur Continue Obstructive sleep apnea chronic hypoxic respiratory failure On home oxygen 3 L 15/05 Continue to monitor for increased oxygen need Sinus node dysfunction status post pacemaker placement Hyperlipidemia On statin GERD Continue Pepcid Thrombocythemia On hydroxyurea Follows with heme-onc CODE STATUS: Full code DVT prophylaxis: On Coumadin, currently on hold due to INR Diet: HH/DMII diet Dispo: PT/OT once more stable Admission and Anticipated Discharge Date Admission Date: December 12, 2023 Subjective Pt seen in the AM, sitting in chair at bedside. States that she is feeling worse than yesterday. Notes that she is shaking, feeling cold. Review of Systems Review of Systems: All systems reviewed & are unremarkable except as noted in Subjective Physical Exam Physical Exam: General: Alert, oriented. No acute distress Skin: No noted rashes or bruises Psych: Appropriate mood and affect Neuro: No gross deficits HEENT: NC/AT Chest: Nontender to palpation. CV: Irregular Resp: Breath sounds clear bilaterally, no increased effort of breathing. No crackles at this time Abdomen:Soft, mildly tender diffusely Extremities: ++ edema in lower extremities bilaterally. Results & Data Results & Data Vital Signs (Past 12 Hours) Vital Signs Temp Pulse Pulse Resp BP BP Pulse Ox 12/13/23 07:36 89 18 94/62 L 96 12/13/23 07:07 89 18 96 12/13/23 06:23 98/60 L 12/13/23 05:38 85 18 78/44 L 98 12/13/23 02:44 34.8 C L 88 18 100/55 L 96 12/13/23 02:06 84/56 L 12/13/23 00:41 88 18 95/60 L 98 12/12/23 23:17 89 92/62 L 12/12/23 22:55 36.2 C L 89 18 89/53 L 96 12/12/23 22:18 89 18 93/57 L 97 12/12/23 21:41 18 81/50 L 96 12/12/23 21:17 85 18 94/62 L 98 12/12/23 20:46 93 H 17 76/50 L 78/50 L 98 O2 Del Method O2 Flow Rate 12/13/23 07:36 Nasal Cannula 3.0 12/13/23 07:07 Nasal Cannula 3 12/13/23 06:23 12/13/23 05:38 Nasal Cannula 3 12/13/23 02:44 Nasal Cannula 3 12/13/23 02:06 12/13/23 00:41 Nasal Cannula 4 12/12/23 23:17 12/12/23 22:55 Nasal Cannula 4 12/12/23 22:18 Nasal Cannula 4 12/12/23 21:41 Nasal Cannula 4 12/12/23 21:17 Nasal Cannula 4 12/12/23 20:46 Nasal Cannula 4 Diagnostic Findings Abdomen Fluoroscopy 12/12/23 00:00 FL KUB CLINICAL HISTORY: LT CYSTO TECHNIQUE: 1 views were obtained with the C-arm in the OR with the above procedure. Total fluoroscopy time was 6 seconds. Comparison: Comparison is made to CT abdomen pelvis 12/12/2023 FINDINGS/IMPRESSION: Intraoperative images were obtained of the cystogram with stent placement. In the final images, the stent is in satisfactory position. Please correlate with intraoperative fluoroscopy and operative report. ACT 112: Negative or not required by law. Electronically signed by: Pablo Garza M.D. 12/12/2023 7:50 PM Abdomen/Pelvis CT 12/12/23 02:48 Exam(s): CT ABDOMEN + PELVIS Without Contrast EXAM: CT Abdomen and Pelvis Without Intravenous Contrast CLINICAL HISTORY: Reason for exam: eval for left sided kidney stone. TECHNIQUE: Axial computed tomography images of the abdomen and pelvis without intravenous contrast. CTDI is 27.14 mGy and DLP is 1291 mGy-cm. Automated exposure control was utilized for the study. A dose lowering technique was utilized adhering to the principles of ALARA. COMPARISON: CT January 29, 2023 FINDINGS: Limitations: Mildly limited by diffuse motion. Pleural space: Small bilateral pleural effusions. ABDOMEN: Liver: Unremarkable. Gallbladder and bile ducts: Small gallstones. No ductal dilation. Pancreas: Unremarkable. No ductal dilation. Spleen: Unremarkable. No splenomegaly. Adrenals: Unremarkable. No mass. Kidneys and ureters: Moderate degree of left hydronephrosis with a 6 mm obstructing calculus in the proximal left ureter. Stomach and bowel: Diverticulosis without diverticulitis. No obstruction. PELVIS: Appendix: No findings to suggest acute appendicitis. Bladder: Unremarkable. No stones. ABDOMEN and PELVIS: Intraperitoneal space: Unremarkable. No free air. No significant fluid collection. Bones/joints: No acute findings. Soft tissues: Unremarkable. Vasculature: Heavy calcification of the aorta and its major branches. No evidence of aneurysm. Lymph nodes: Unremarkable. No enlarged lymph nodes. IMPRESSION: Moderate degree of left hydronephrosis with a 6 mm obstructing calculus in the proximal left ureter. Electronically signed by: Wang Mccollum MD 12/12/23 04:24 AM Chest X-Ray 12/12/23 17:00 XR chest 1V portable CLINICAL HISTORY: Desaturation TECHNIQUE: Single frontal radiograph of the chest was obtained. Comparison: Comparison is made to chest radiograph 09/12/2023 FINDINGS: Lines and tubes are stable. Cardiomegaly is noted. The aortic arch is calcified. The lungs are clear. Small bilateral pleural effusions are seen. IMPRESSION: Faint bibasilar airspace opacities which may represent atelectasis, pneumonia, and/or aspiration. Small bilateral pleural effusions. ACT 112: Negative or not required by law. Electronically signed by: Pablo Garza M.D. 12/12/2023 5:47 PM
[2023-12-13] MEDS ORDERED: DEXTROSE 50% 50 ML SYRINGE IV PRN (10:00)
[2023-12-13] MEDS ORDERED: GLUCOSE 40% GEL 15 GM TUBE PO PRN (10:00)
[2023-12-13] MEDS ORDERED: CARBOHYDRATES FOR HYPOGLYCEMIA PO PRN (10:00)
[2023-12-13] MEDS ORDERED: GLUCAGON FOR INJ 1 MG VIAL SQ PRN (10:00)
[2023-12-13] MEDS ORDERED: GLUCOSE 10 TAB/TUBE PO PRN (10:00)
[2023-12-13] MEDS ORDERED: SODIUM CHLORIDE 0.9% 500 ML IV ONE (10:05)
[2023-12-13] MEDS: PIPERACILLIN/TAZOBACTAM 4.5 GM in DEXTROSE 5% MINI-B 100 ML IV ONE (10:15)
[2023-12-13] MEDS: INSULIN ASPART PER UNIT CHARGE SC SCH ×2 (12:11→23:51)
[2023-12-13] MEDS: METOPROLOL TARTRATE 1 MG/ML VIAL IV STA ×3 (14:16→22:03)
[2023-12-13] MEDS: ACETAMINOPHEN 325 MG TAB PO PRN (14:16)
[2023-12-13] MEDS: FUROSEMIDE 40 MG/4 ML VIAL IV ONE (16:03)
--- NOTE | 2023-12-13 16:18 | Cardiology Consultation ---
Date of Consultation December 13, 2023 Assessment & Plan (1) Left ureteral calculus: (2) Sepsis: (3) Chronic heart failure with reduced ejection fraction and diastolic dysfunction: (4) Acute renal failure superimposed on chronic kidney disease: (5) Chronic hypoxic respiratory failure: (6) Sinus node dysfunction: (7) Cardiac pacemaker in situ: Plan IMPRESSION: Medically complex 88-year-old female found to be in urosepsis secondary to obstruction of the left ureter secondary to calculus. Underwent cystoscopy with left ureteral stent placement 12/12/2023. Patient has permanent atrial fibrillation, rates have been uncontrolled. Beta- buddy on hold due to hypotension. Renal decline with a serum creatinine of 2.6, baseline between 1.9 and 2.0. Has been receiving IV Lasix. Low urine output over the last 12 hours. PLAN: Patient appears clinically drive-- Hold diuretics. Consider cautiously administration of IVF- will defer to Dr. Richardson. Strict I&O, patient will need a [place] cath placed. Echocardiogram ordered to reassess LV systolic function and rule out renal vegetations. Hold beta-buddy. Future considerations of restarting low-dose metoprolol tartrate pending clinical response. Can also consider amiodarone for rate control. Will avoid digoxin given renal decline and hyperkalemia. Hold antihypertensives- Imdur Antibiotics per primary service for treatment of sepsis. Case to be discussed with Dr. Richardson-- will follow. Plans to transfer to ICU. I spent a total of 45 minutes on the date of service in preparation, delivery, and documentation of the care provided to the patient excluding any time spent in the performance of separately billed services. ELIN Ruiz Department of Cardiology, [facility] This chart was completed in part utilizing Speech Voice Recognition Software. Grammatical errors, random word insertions, pronoun errors, and incomplete sentences are an occasional consequence of this system due to software limitations, ambient noise, and hardware issues. Any formal questions or concerns about the content, text, or information contained within the body of this dictation should be directly addressed to the provider for clarification. Supervising Physician Co-Signing Physician Notes Attending attestation: Case reviewed with the advanced practitioner. I have personally performed a history and physical examination on the patient. I have reviewed the advanced practitioner's documentation on the date of service referenced in note, and I agree with, and take responsibility for the plan of care. Subjective: Patient seen in room 219 minutes after initial assessment by ELIN Patel. Son, Jonathan, and his spouse at the bedside. Patient uncomfortable but mentating well. Denies chest discomfort or shortness of breath. Describes cramping in her hands and her left leg. Telemetry reveals atrial fibrillation with rapid ventricular response in the 120s to 130s. Exam: Cardiovascular: Irregular rhythm, tachycardic, trace bilateral lower extremity edema Pulmonary: Mildly decreased breath sounds at the bases, no rales rhonchi or wheezing Data: EKG performed 12/12/2023 and interpret independently: Atrial fibrillation 104 bpm, ST segment abnormality in the high lateral leads I and aVL. Compared to historical tracings, she has chronic lateral repolarization abnormalities, usually seen in the lateral precordial leads. Impression/ Plan: 88-year-old female with complex cardiac history including ischemic heart disease, previous CABG, bioprosthetic AVR, mild left ventricular systolic dy sfunction and chronic atrial fibrillation Presents with urosepsis and now has tachycardia and hypotension in the setting of lactic acidosis. E. coli noted on urinalysis. * Agree with transfer to the first floor intensive care unit and consultation with critical care medicine * Given acute kidney injury recommend initiation of IV fluids, perhaps normal saline at 75 mL an hour to start * Discussed option of proceeding with [place] catheter with patient. Patient states that she was very uncomfortable with the urinary catheter placed during her previous hospital stay in August, and she would like to avoid it if possible but would be willing to reconsider depending upon how she feels post ICU transfer * Will hold prior to hospital treatment with metoprolol succinate 150 mg twice daily given systolic blood pressure in the 90s to low 100s. * Anticipate heart rate may improve with volume resuscitation and treatment for sepsis including ongoing antibiotic therapy however future considerations include adding IV amiodarone for purpose of rate control in the setting of hypotension * She is not a candidate for digoxin at present given her acute kidney injury * A repeat echocardiogram has already been requested and will be performed on 12/14/2023 * Hold Imdur and torsemide. * Continue statin therapy * Hold Coumadin tonight for INR greater than 3, current measurement 3.4 on 12/13/2023 * Son confirms patient's preference for DNR/ DNI status * Case discussed with Dr Graff of hospitalist medicine and Dr Marshall of critical care medicine for the purpose of future coordination of care. I spent a total of 25 minutes coordinating, documenting, and providing care for this patient excluding time spent in the performance of separately billed services or time spent by another provider. Joe Richardson DO History of Present Illness Reason for Consultation: AFIB RVR Requesting Physician: Jaabri hospitalist Attending Physician: Mely Graff MD History of Present Illness Medically complex 88-year-old female who initially presented to [facility] emergency department on 12/12 due to left flank pain and back pain. Patient was found to have a moderate left hydronephrosis with an obstructing calculus at the proximal left ureter. +UTI. Patient severely septic. Started on IV fluids and antibiotics. Lactate elevated at 4.6 mmol/l. Urology consulted, underwent cystoscopy yesterday with left ureter stent placement 12/12/2023 Dr. Castellano. Patient has a known history of chronic systolic CHF with an EF of 40 to 45%, 08/2023. She is normally maintained on torsemide but has been getting IV Lasix while inpatient. Serum creatinine has increased above goal to 2.6 mg/dl. Baseline around 1.9-2.0 mg/dl. She also has known permanent atrial fibrillation--anticoagulated with Coumadin. Metoprolol has been being held due to low blood pressures. She does have a permanent pacemaker. Rates have been tachycardic 110-130s. Upon entrance into the room patient resting in bed. Acute ill. Does not feel well. Son at beside. Denies chest pain. No shortness of breath. Denies palpitations. Feels weak and fatigued. Feels cold-- hypothermic, has a warming blanket on. Mild tremors/rigors. Became very anxious and states "I will do anything to feel better". Has not put out much urine 200 cc all day, nothing since 1pm. PureWick in place. Refusing Camarillo cath. Bladder scan for 101cc at time of my assessment. Past medical history: -Systolic and diastolic congestive heart failure. EF 40% -Stage IV chronic kidney disease (GFR 15-29 mL/min) -Chronic atrial fibrillation with a controlled ventricular response -Chronic Coumadin 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 -Prior transient bright red blood per rectum requiring ER evaluation in December 2021, suggestive of hemorrhoidal bleeding, declining further evaluation (colonoscopy). -SSS Status post April 08, 2014 dual chamber pacemaker implantation -Status post August 02, [address] Chau at [facility] - Nightprotronic [place] XT SR MRI SureScan [id number], Serial # [id number]. Status post AVR and CABG in April 2006 receiving a #19 Mary-Good bioprosthesis in the aortic valve position, VARGHESE graft to the LAD, SVG with sequential grafting from LAD diagonal to the circumflex obtuse marginal, and a SVG to the RCA. -Recurrent angina with resultant coronary intervention of the right coronary artery, PCI and stenting in December of 2006 with documented saphenous vein graft occlusion to the right coronary artery at that time. -Hospitalized at [facility] in April 2023 with chest pain, NSTEMI, echocardiographic evidence of inferior, posterior and septal myocardial infarction. Mild LV systolic dysfunction, EF 40-45% with severe TR, moderate to severe MR. Course complicated by CVA, MRI with two subcentimeter acute lacunar infarcts within the right frontal lobe. Managed conservatively. -Hospitalized at [facility] in May 2023 with recurrent angina, NSTEMI, and acute decompensated systolic congestive heart failure -Hospitalized at [facility] in August 2023 with acute on chronic hypoxic respiratory failure including an element of acute decompensated systolic and diastolic congestive heart failure Hypertension. Hyperlipidemia. Mild sleep apnea. Intolerant to CPAP therapy Ambulatory and nocturnal hypoxemia treated with supplemental oxygen 2 to 3 liters/minute via nasal cannula Allergies Allergy/AdvReac Type Severity Reaction Status Date / Time amiodarone Allergy Severe EDEMA Verified 09/12/23 16:05 FACE/LIPS/TONGUE, RASH azithromycin [From Zithromax] Allergy Severe THROAT Verified 09/12/23 16:05 SWELLED, DENIED SHORT OF BREATH. adhesive Allergy Intermediate Rash Verified 09/12/23 16:05 etodolac Allergy Intermediate PRURITIS-IO Verified 09/12/23 16:05 DINE iodine Allergy Intermediate itching Verified 09/12/23 16:05 Penicillins Allergy Intermediate ITCHY RASH Verified 09/12/23 16:05 Sulfa (Sulfonamide Allergy Intermediate Rash Verified 09/12/23 16:05 Antibiotics) cephalexin [From Keflex] Allergy Unknown PER Verified 09/12/23 16:05 GMG--TRUE REACTION TO KEFLEX gabapentin AdvReac Intermediate sedation Verified 09/12/23 16:05 lisinopril AdvReac Intermediate Swelling Verified 09/12/23 16:05 of Lip/Tongue/Throat simvastatin AdvReac Unknown CAN'T Verified 09/12/23 16:05 REMEMBER Home Medications Medication Instructions Recorded Confirmed Type acidophilus 25 million 2 tab PO DAILY 12/12/23 12/12/23 History cell-pectin, citrus 100 mg tablet buspirone 5 mg tablet 5 mg PO BID 12/12/23 12/12/23 History clopidogrel 75 mg tablet 75 mg PO DAILY 12/12/23 12/12/23 History clotrimazole-betamethasone 1 1 applic topical BID 12/12/23 12/12/23 History %-0.05 % topical cream famotidine 20 mg tablet 20 mg PO DAILY 12/12/23 12/12/23 History hydroxyurea 500 mg capsule 500 mg PO UD 12/12/23 12/12/23 History isosorbide mononitrate 60 mg 60 mg PO DAILY 12/12/23 12/12/23 History tablet,extended release 24 hr lactulose 10 gram/15 mL oral 15 ml PO TID 12/12/23 12/12/23 History solution metoprolol succinate 100 mg 150 mg PO BID 12/12/23 12/12/23 History tablet,extended release 24 hr mometasone 50 mcg/actuation nasal 1 spray intranasal DAILY 12/12/23 12/12/23 History spray potassium chloride 20 mEq 20 meq PO BID 12/12/23 12/12/23 History tablet,extended release(part/cryst) rosuvastatin 20 mg tablet 20 mg PO DAILY 12/12/23 12/12/23 History torsemide 20 mg tablet 80 mg PO DAILY 12/12/23 12/12/23 History warfarin 1 mg tablet 1 mg PO DAILY 12/12/23 12/12/23 History Patient History Medical History Coronary artery disease with angina pectoris CKD (chronic kidney disease), stage III Chronic diastolic CHF (congestive heart failure) Cardiac pacemaker in situ Sinus node dysfunction ASCVD (arteriosclerotic cardiovascular disease) 2005 - CABG x 3, bioproesthetic aortic valve replacement 2006 - PCI and stenting to SVG to RCA occlusion Atrial fibrillation, persistent 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 Tinnitus of left ear Sensorineural hearing loss of both ears HLD (hyperlipidemia) HTN (hypertension) Essential thrombocythemia CKD (chronic kidney disease) stage 2, GFR 60-89 ml/min UTI due to extended-spectrum beta lactamase (ESBL) producing Escherichia coli Generalized weakness Anemia 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) Replacement of aortic valve (Unknown) "[facility] [place] 2005 Mary-Good " Dermatitis Carotid artery occlusion (Unknown) Surgical History Status post transcatheter aortic valve replacement (TAVR) using bioprosthesis History of colonoscopy with polypectomy History of cystoscopy History of tubal ligation Total abdominal hysterectomy with bilateral salpingo-oophorectomy (Unknown) Stented coronary artery (Unknown) Placement of stent in coronary artery (Unknown) "RCA December 2006 " Implantation of aortic valve prosthesis or synthetic device (Unknown) Coronary artery bypass grafting (Unknown) "[facility] [place] April 2006 VARGHESE to LAD SVG's to diagonal, obtuse marginal, RCA " Family History Father Prostate cancer Mother Diabetes Sister Coronary heart disease Social History Smoking Status: Never smoker Second Hand Exposure: No; Do You Dip or Chew Tobacco: No; Hx Alcohol Use: No Hx Substance Use: No Preferred Language: Stateless Communication Ability: Impaired Visual Impairment: No Limitations Hearing Ability: Normal Superintendent House Required: No Beliefs That Will Affect Care: None marital status: / Current Living Situation: Alone Feels Safe at Home: Yes Assistive Devices: Oxygen - Continuous and Walker Review of Systems Review of Systems: All systems reviewed & are unremarkable except as noted in HPI & below Physical Exam Constitutional: + ill appearing; no acute distress Eyes: PERRL, conjunctivae normal, anicteric sclerae Neck: normal visual inspection and trachea midline Respiratory: normal respiratory effort (shallow breaths ), + cough and able to speak in complete sentences; no respiratory distress and not tachypneic Auscultation: + diminished lung sounds Cardiovascular: Rate/Rhythm: + tachycardic and + irregularly irregular Heart Sounds: + murmur Vessels: no JVD Extremities: + edema (trace BLLE edema R>L) Chest (Breasts): Chest: + pacemaker Gastrointestinal (Abdomen): normal bowel sounds, soft, nontender, no hepatosplenomegaly Skin: no rashes, warm and dry Neurologic: PERRL, EOMI, accommodation nl, no face palsy, no dysarthria Psychiatric: Orientation: alert and oriented x 3 Results & Data Vital Signs (Past 12 Hours) Vital Signs Temp Pulse Pulse Pulse Resp BP BP 12/13/23 15:25 34.9 C L 12/13/23 15:18 107 H 22 12/13/23 15:06 111 H 24 12/13/23 14:31 110 H 99/62 L 12/13/23 14:16 103 H 100/65 12/13/23 10:52 97 H 20 12/13/23 10:37 99 H 18 12/13/23 07:36 89 18 94/62 L 12/13/23 07:07 89 18 12/13/23 06:23 98/60 L 12/13/23 05:38 85 18 BP Pulse Ox O2 Del Method O2 Flow Rate 12/13/23 15:25 12/13/23 15:18 97 Nasal Cannula 3 12/13/23 15:06 99/62 L 95 Nasal Cannula 3.0 12/13/23 14:31 12/13/23 14:16 12/13/23 10:52 100/65 93 Nasal Cannula 3.0 12/13/23 10:37 97 Nasal Cannula 3 12/13/23 07:36 96 Nasal Cannula 3.0 12/13/23 07:07 96 Nasal Cannula 3 12/13/23 06:23 12/13/23 05:38 78/44 L 98 Nasal Cannula 3 Laboratory Results Cardiac Enzymes 12/13/23 Range/Units 06:51 AST 27 (13-39) U/L Coagulation 12/13/23 Range/Units 06:51 PT 34.8 H (9.0-12.0) Seconds CBC 12/13/23 Range/Units 06:51 WBC 13.87 H (4.8-10.8) K/ul RBC 3.05 L (4.20-5.40) M/uL Hgb 10.5 L (12.0-16.0) g/dl Hct 35.4 L (37.0-47.0) % Plt Count 130 (130-400) K/uL Neut # (Auto) 13.05 H (1.40-6.50) K/uL Lymph # (Auto) 0.24 L (1.20-3.40) K/uL Pike # (Auto) 0.30 (0.11-0.59) K/uL Eos # (Auto) 0.00 (0.00-0.50) K/uL Baso # (Auto) 0.02 (0.00-0.20) K/uL Comprehensive Metabolic Panel 12/13/23 Range/Units 06:51 Sodium 139 (136-145) mmol/L Potassium 5.3 H (3.5-5.1) mmol/L Chloride 102 (98-107) mmol/L Carbon Dioxide 31 (21-32) mmol/L BUN 53 H (6-23) mg/dl Creatinine 2.61 H D (0.6-1.2) mg/dl Glucose 200 H (70-99(Fasting)) mg/dl Calcium 8.3 L (8.6-10.3) mg/dl AST 27 (13-39) U/L ALT 11 (7-52) U/L Alkaline Phosphatase 86 (34-104) U/L Total Protein 6.8 (6.0-8.3) gm/dl Albumin 3.2 L (3.4-5.0) gm/dl Intake and Output 12/13/23 12/13/23 12/13/23 06:59 14:59 22:59 Intake Total 600 / 3308.667 1500 / 1500 Output Total 100 / 100 Balance 600 / 3208.667 1400 / 1400 Intake: IV 1500 / 1500 Sodium Chloride 0.9% 500 ml @ 1500 / 1500 999 mls/hr IV .Q31M [facility] Rx#: [id number] Oral 600 / 650 Output: Urine 100 / 100 Other: # Unmeasured Voids 1 Weight 82.5 kg Weight Measurement Method Built in [facility]
--- NOTE | 2023-12-13 16:53 | Critical Care Consultation ---
Date of Consultation December 13, 2023 Assessment & Plan (1) Sepsis: Reason Critically Ill: 88-year-old female with sepsis PLAN: Neuro: [] - [] Resp: Chronic hypoxic respiratory failure on oxygen -Wean oxygen as tolerated, patient DNI in event of respiratory insufficiency CV: History of reduced EF heart failure -Cardiology consult pending Persistent atrial fibrillation -On systemic 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 with warfarin Pacemaker in place -Blood cultures pending Fluids/Renal: Acute kidney injury on chronic kidney disease -[place] for strict I's and O's: patient declining Lactic acid acidosis - thiamine 500mg IV ID: Zosyn: gram negative urinary tract infection -May necessitate dose adjustment per pharmacy GI/Nutrition: N.p.o. Heme: Baseline anemia -Type and screen ordered DVT prophylaxis: Holding additional warfarin, therapeutic INR at this time, SCDs Endocrine: ICU hyperglycemia protocol Vascular access: Peripheral IVs Code Status: DNR/DNI in event of cardiac arrest Disposition: ICU for possible need of vasoactive medications (2) Acute renal failure superimposed on chronic kidney disease: (3) Heart failure with improved ejection fraction (HFimpEF): (4) Left ureteral calculus: (5) AF (atrial fibrillation): (6) Cardiac pacemaker in situ: (7) Atrial fibrillation, persistent: (8) Current use of skilled nursing 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: Supervising Physician Co-Signing Physician Notes I have personally spent 35 minutes of critical care time in the direct management of this patient. This is a life/limb threatening event. This includes time spent evaluating patient, direct bedside care, chart review, placing orders, interpretation of diagnostic studies, discussion with consultants, patient, and/or family members regarding treatment decisions, as well as other required patient management activities. This time is exclusive of all separately billable procedures, and teaching time and separate from and in addition to any other critical care service time. History of Present Illness Reason for Consultation: Sepsis of urinary source Attending Physician: Mely Graff MD History of Present Illness Patient is a 88-year-old female with past medical history for chronic hypoxemic respiratory failure on 3 L, obstructive sleep apnea on oxygen, coronary artery disease status post stents status post pacemaker reduced ejection fraction heart failure, peripheral arterial disease with asymptomatic bilateral carotid artery stenosis, hypertension, chronic A-fib on systemic 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 with warfarin, CKD stage III status post aortic valve replacement who underwent cystoscopy and left ureteral stent placement secondary to obstructing left ureteral stone and concern for urinary tract infection with con commitment acute kidney injury yesterday. She has developed a lactic acid acidosis and hypothermia hospitalist team discussed with the patient's family all were in agreement that patient would not heroic measures undertaken in event of cardiac arrest nor intubation she is DNR/DNI they would like to proceed with other aggressive measures including but not limited to advanced vascular access for vasoactive medication administration. Yesterday she was is ministered aztreonam and ertapenem, she has been de-escalated to Zosyn. Her creatinine has not yet nadired, there is a culture of gram-negative bacilli from her urine and blood cultures obtained this morning are pending, I have reviewed the patient's allergy list which includes penicillin developing a itchy rash as well as Keflex reaction unknown, I believe it is reasonable to proceed with Zosyn. Consultations to infectious disease [place] and cardiology both been placed. Allergies Allergy/AdvReac Type Severity Reaction Status Date / Time amiodarone Allergy Severe EDEMA Verified 09/12/23 16:05 FACE/LIPS/TONGUE, RASH azithromycin [From Zithromax] Allergy Severe THROAT Verified 09/12/23 16:05 SWELLED, DENIED SHORT OF BREATH. adhesive Allergy Intermediate Rash Verified 09/12/23 16:05 etodolac Allergy Intermediate PRURITIS-IO Verified 09/12/23 16:05 DINE iodine Allergy Intermediate itching Verified 09/12/23 16:05 Penicillins Allergy Intermediate ITCHY RASH Verified 09/12/23 16:05 Sulfa (Sulfonamide Allergy Intermediate Rash Verified 09/12/23 16:05 Antibiotics) cephalexin [From Keflex] Allergy Unknown PER Verified 09/12/23 16:05 GMG--TRUE REACTION TO KEFLEX gabapentin AdvReac Intermediate sedation Verified 09/12/23 16:05 lisinopril AdvReac Intermediate Swelling Verified 09/12/23 16:05 of Lip/Tongue/Throat simvastatin AdvReac Unknown CAN'T Verified 09/12/23 16:05 REMEMBER Home Medications Medication Instructions Recorded Confirmed Type acidophilus 25 million 2 tab PO DAILY 12/12/23 12/12/23 History cell-pectin, citrus 100 mg tablet buspirone 5 mg tablet 5 mg PO BID 12/12/23 12/12/23 History clopidogrel 75 mg tablet 75 mg PO DAILY 12/12/23 12/12/23 History clotrimazole-betamethasone 1 1 applic topical BID 12/12/23 12/12/23 History %-0.05 % topical cream famotidine 20 mg tablet 20 mg PO DAILY 12/12/23 12/12/23 History hydroxyurea 500 mg capsule 500 mg PO UD 12/12/23 12/12/23 History isosorbide mononitrate 60 mg 60 mg PO DAILY 12/12/23 12/12/23 History tablet,extended release 24 hr lactulose 10 gram/15 mL oral 15 ml PO TID 12/12/23 12/12/23 History solution metoprolol succinate 100 mg 150 mg PO BID 12/12/23 12/12/23 History tablet,extended release 24 hr mometasone 50 mcg/actuation nasal 1 spray intranasal DAILY 12/12/23 12/12/23 History spray potassium chloride 20 mEq 20 meq PO BID 12/12/23 12/12/23 History tablet,extended release(part/cryst) rosuvastatin 20 mg tablet 20 mg PO DAILY 12/12/23 12/12/23 History torsemide 20 mg tablet 80 mg PO DAILY 12/12/23 12/12/23 History warfarin 1 mg tablet 1 mg PO DAILY 12/12/23 12/12/23 History Patient History Medical History Coronary artery disease with angina pectoris CKD (chronic kidney disease), stage III Chronic diastolic CHF (congestive heart failure) Cardiac pacemaker in situ Sinus node dysfunction ASCVD (arteriosclerotic cardiovascular disease) 2006 - CABG x 3, bioproesthetic aortic valve replacement 2007 - PCI and stenting to SVG to RCA occlusion Atrial fibrillation, persistent Current use of skilled nursing 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 Tinnitus of left ear Sensorineural hearing loss of both ears HLD (hyperlipidemia) HTN (hypertension) Essential thrombocythemia CKD (chronic kidney disease) stage 2, GFR 60-89 ml/min UTI due to extended-spectrum beta lactamase (ESBL) producing Escherichia coli Generalized weakness Anemia 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) Replacement of aortic valve (Unknown) "[facility] [place] " Dermatitis Carotid artery occlusion (Unknown) Surgical History Status post transcatheter aortic valve replacement (TAVR) using bioprosthesis History of colonoscopy with polypectomy History of cystoscopy History of tubal ligation Total abdominal hysterectomy with bilateral salpingo-oophorectomy (Unknown) Stented coronary artery (Unknown) Placement of stent in coronary artery (Unknown) "RCA December 2006 " Implantation of aortic valve prosthesis or synthetic device (Unknown) Coronary artery bypass grafting (Unknown) "[facility] [place] 2006 VARGHESE to LAD SVG's to diagonal, obtuse marginal, RCA " Family History Father Prostate cancer Mother Diabetes Sister Coronary heart disease Social History Smoking Status: Never smoker Second Hand Exposure: No; Do You Dip or Chew Tobacco: No; Hx Alcohol Use: No Hx Substance Use: No Preferred Language: Latvian Communication Ability: Impaired Visual Impairment: No Limitations Hearing Ability: Normal Lead Ramp Service Man Required: No Beliefs That Will Affect Care: None marital status: / Current Living Situation: Alone Feels Safe at Home: Yes Assistive Devices: Oxygen - Continuous and Walker Physical Exam Physical Exam: General: Alert. nontoxic. Skin: Warm, dry, Head: Atraumatic Ears, nose, mouth and throat: airway patent Cardiovascular: Normal peripheral perfusion Respiratory: no respiratory distress Gastrointestinal: Non distended Musculoskeletal: No deformity Results & Data Results & Data Vital Signs (Past 12 Hours) Vital Signs Temp Pulse Pulse Pulse Resp BP BP 12/13/23 15:25 34.9 C L 12/13/23 15:18 107 H 22 12/13/23 15:06 111 H 24 12/13/23 14:31 110 H 99/62 L 12/13/23 14:16 103 H 100/65 12/13/23 10:52 97 H 20 12/13/23 10:37 99 H 18 12/13/23 07:36 89 18 94/62 L 12/13/23 07:07 89 18 12/13/23 06:23 98/60 L 12/13/23 05:38 85 18 BP Pulse Ox O2 Del Method O2 Flow Rate 12/13/23 15:25 12/13/23 15:18 97 Nasal Cannula 3 12/13/23 15:06 99/62 L 95 Nasal Cannula 3.0 12/13/23 14:31 12/13/23 14:16 12/13/23 10:52 100/65 93 Nasal Cannula 3.0 12/13/23 10:37 97 Nasal Cannula 3 12/13/23 07:36 96 Nasal Cannula 3.0 12/13/23 07:07 96 Nasal Cannula 3 12/13/23 06:23 12/13/23 05:38 78/44 L 98 Nasal Cannula 3 Critical Care Results & Data Vital Signs (Past 12 Hours) Vital Signs Temp Pulse Pulse Pulse Resp BP BP 12/13/23 15:25 34.9 C L 12/13/23 15:18 107 H 22 12/13/23 15:06 111 H 24 12/13/23 14:31 110 H 99/62 L 12/13/23 14:16 103 H 100/65 12/13/23 10:52 97 H 20 12/13/23 10:37 99 H 18 12/13/23 07:36 89 18 94/62 L 12/13/23 07:07 89 18 12/13/23 06:23 98/60 L 12/13/23 05:38 85 18 BP Pulse Ox O2 Del Method O2 Flow Rate 12/13/23 15:25 12/13/23 15:18 97 Nasal Cannula 3 12/13/23 15:06 99/62 L 95 Nasal Cannula 3.0 12/13/23 14:31 12/13/23 14:16 12/13/23 10:52 100/65 93 Nasal Cannula 3.0 12/13/23 10:37 97 Nasal Cannula 3 12/13/23 07:36 96 Nasal Cannula 3.0 12/13/23 07:07 96 Nasal Cannula 3 12/13/23 06:23 12/13/23 05:38 78/44 L 98 Nasal Cannula 3 Lab & Micro Results (Past 24 Hours) RBC 3.05 M/uL (4.20-5.40) L 12/13/23 WBC 13.87 K/ul (4.8-10.8) H 12/13/23 Hgb 10.5 g/dl (12.0-16.0) L 12/13/23 Hct 35.4 % (37.0-47.0) L 12/13/23 MCV 116.1 fL (80.0-100.0) H 12/13/23 MCH 34.4 pg (25.0-34.0) H 12/13/23 MCHC 29.7 g/dL (32.0-36.0) L 12/13/23 RDW Standard Deviation 76.3 fL (36.4-46.3) H 12/13/23 RDW Coefficient of Variation 17.7 % (11.5-14.5) H 12/13/23 Plt Count 130 K/uL (130-400) 12/13/23 MPV 11.4 fL (9.4-12.4) 12/13/23 Neutrophils (%) (Auto) 94.1 % 12/13/23 Lymphocytes (%) (Auto) 1.7 % 12/13/23 Monocytes # (Auto) 0.30 K/uL (0.11-0.59) 12/13/23 Eosinophils # (Auto) 0.00 K/uL (0.00-0.50) 12/13/23 Immature Granulocyte % (Auto) 1.9 % 12/13/23 Neutrophils # (Auto) 13.05 K/uL (1.40-6.50) H 12/13/23 Lymphocytes # (Auto) 0.24 K/uL (1.20-3.40) L 12/13/23 Monocytes # (Auto) 0.30 K/uL (0.11-0.59) 12/13/23 Eosinophils # (Auto) 0.00 K/uL (0.00-0.50) 12/13/23 Basophils # (Auto) 0.02 K/uL (0.00-0.20) 12/13/23 Immature Granulocyte # (Auto) 0.26 K/uL (0.01-0.20) H 12/13 Na 139 mmol/L (136-145) 12/13/23 K 5.3 mmol/L (3.5-5.1) H 12/13/23 Cl 102 mmol/L (98-107) 12/13/23 CO2 31 mmol/L (21-32) 12/13/23 Anion Gap 6 (3-11) 12/13/23 BUN 53 mg/dl (6-23) H 12/13/23 Creatinine 2.61 mg/dl (0.6-1.2) H 12/13/23 Estimated GFR ( Amer) 18.4 ml/min 12/13/23 Estimated GFR (Non-Af Amer) 15.9 ml/min 12/13/23 BUN/Creatinine Ratio 20.3 (10-20) H 12/13/23 Glu 200 mg/dl (70-99(Fasting)) H 12/13/23 Ca 8.3 mg/dl (8.6-10.3) L 12/13/23 Total Bilirubin 1.2 mg/dl (0.2-1.0) H 12/13/23 AST 27 U/L (13-39) 12/13/23 ALT 11 U/L (7-52) 12/13/23 Alkaline Phosphatase 86 U/L (34-104) 12/13/23 TP 6.8 gm/dl (6.0-8.3) 12/13/23 Albumin 3.2 gm/dl (3.4-5.0) L 12/13/23 Globulin 3.6 gm/dl (2.5-4.0) 12/13/23 Albumin/Globulin Ratio 0.9 (0.9-2) 12/13/23 Calcium Level 8.3 mg/dl (8.6-10.3) L 12/13/23 06:51 Prothromb Time International Ratio 3.4 (0.9-1.1) H 12/13/23 06 :51 Microbiology 12/12/23 04:29 Urine Culture - Preliminary Urine,Clean Catch Gram negative bacilli Diagnostic Findings (Past 24 Hours) Abdomen Fluoroscopy 12/12/23 00:00 FL KUB CLINICAL HISTORY: LT CYSTO TECHNIQUE: 1 views were obtained with the C-arm in the OR with the above procedure. Total fluoroscopy time was 6 seconds. Comparison: Comparison is made to CT abdomen pelvis 12/12/2023 FINDINGS/IMPRESSION: Intraoperative images were obtained of the cystogram with stent placement. In the final images, the stent is in satisfactory position. Please correlate with intraoperative fluoroscopy and operative report. ACT 112: Negative or not required by law. Electronically signed by: Pablo Garza M.D. 12/12/2023 7:50 PM Chest X-Ray 12/12/23 17:00 XR chest 1V portable CLINICAL HISTORY: Desaturation TECHNIQUE: Single frontal radiograph of the chest was obtained. Comparison: Comparison is made to chest radiograph 09/12/2023 FINDINGS: Lines and tubes are stable. Cardiomegaly is noted. The aortic arch is calcified. The lungs are clear. Small bilateral pleural effusions are seen. IMPRESSION: Faint bibasilar airspace opacities which may represent atelectasis, pneumonia, and/or aspiration. Small bilateral pleural effusions. ACT 112: Negative or not required by law. Electronically signed by: Pablo Garza M.D. 12/12/2023 5:47 PM I & O Totals 24 Hours 12/12/23 12/13/23 12/14/23 06:59 06:59 06:59 Intake Total 3308.667 / 3308.667 1500 / 1500 Output Total 100 / 100 100 / 100 Balance 3208.667 / 3208.667 1400 / 1400 Cumulative 12/12/23 01:02 thru 12/13/23 14:41 Intake Total 4808.667 Output Total 200 Balance 4608.667 RT Ventilator Mngmt (Last Documented) Ventilator Ordered Settings Respiratory Rate 22 12/13/23 15:18 Ventilator - PT Measurements Respiratory Rate 22 Coding Level of Care Code 74874 CRITICAL CARE 1ST 30-74M Diagnoses Sepsis with acute renal failure, due to unspecified organism, unspecified acute renal failure type, unspecified whether septic shock present A41.9; R65.20; N17.9 Sepsis type: sepsis due to unspecified organism Sepsis acute organ dysfunction status: with acute organ dysfunction Severe sepsis acute organ dysfunction type: acute renal failure Acute renal failure type: unspecified Severe sepsis shock status: unspecified Acute renal failure superimposed on chronic kidney disease N17.9; N18.9 Heart failure with improved ejection fraction (HFimpEF) I50.32 Left ureteral calculus N20.1 AF (atrial fibrillation) I48.91 Atrial fibrillation type: unspecified Cardiac pacemaker in situ Z95.0 Atrial fibrillation, persistent I48.19 Current use of skilled nursing 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 Z79.01 (1) Sepsis Sepsis type: sepsis due to unspecified organism Sepsis acute organ dysfunction status: with acute organ dysfunction Severe sepsis acute organ dysfunction type: acute renal failure Acute renal failure type: unspecified Severe sepsis shock status: unspecified Qualified Code(s): A41.9 - Sepsis, unspecified organism; R65.20 - Severe sepsis without septic shock; N17.9 - Acute kidney failure, unspecified (5) AF (atrial fibrillation) Atrial fibrillation type: unspecified Qualified Code(s): I48.91 - Unspecified atrial fibrillation
[2023-12-13] MEDS ORDERED: STAT IV Infusion **Titration per Protocol STA ×2 (17:46→20:31)
[2023-12-13] MEDS: LACTATED RINGER'S 250 ML IV ONE ×2 (18:14→18:15)
[2023-12-13] MEDS: SODIUM CHLORIDE 0.9% 1,000 ML IV SCH (18:18)
[2023-12-13] MEDS: TORSEMIDE 20 MG TAB PO ONE (18:45)
[2023-12-13] MEDS: LACTATED RINGER'S 500 ML IV ONE (19:23)
[2023-12-13 19:33] LABS: BUN Creatinine Ratio 22.4 (10-20); Est GFR (African American) 18.2 ml/min; Est GFR (Non-African American) 15.7 ml/min; Magnesium 1.8 mg/dl (1.7-2.4); Potassium 5.2 mmol/L (3.5-5.1)
[2023-12-13] MEDS: HYDROCORTISONE SOD 100 MG in SYRINGE 0 ML IV ONE (19:33)
[2023-12-13] MEDS: NOREPINEPHRINE/D5W 4 MG/250 ML PLCT IV SCH (19:33)
[2023-12-13] MEDS: THIAMINE HCL 500 MG in SODIUM CHLORIDE 0.9% 50 ML IV ONE (19:41)
[2023-12-13] MEDS ORDERED: Nursing to Pharmacy Communication SCH (19:45)
[2023-12-13] MEDS: PIPERACILLIN/TAZOBACTAM 4.5 GM in DEXTROSE 5% MINI-B 100 ML IV SCH (19:56)
[2023-12-13] MEDS: ICU Protocol for HYPERglycemia SCH (20:11)
[2023-12-13] MEDS: PHENYLEPHRINE/NSS 25 MG/250 ML BAG IV SCH (20:37)
[2023-12-13] MEDS: MAGNESIUM SULFATE / D5W 1 GM/100 ML BAG IV SCH (20:42)
[2023-12-13] MEDS: PHENYLEPHRINE HCL 25 MG/250 ML NSS IV ONE (20:42)
[2023-12-13] MEDS: LACTATED RINGER'S 1,000 ML IV SCH (22:51)
[2023-12-14] MEDS: HYDROCORTISONE SOD 50 MG in SYRINGE 0 ML IV SCH (01:52)
[2023-12-14 04:15] LABS: Basophils # (auto) 0.02 K/uL (0.00-0.20); Basophils % (auto) 0.1 %; Hematocrit (blood only) 31.8 % (37.0-47.0); Hemoglobin 9.9 g/dl (12.0-16.0); Immature Granulocytes # (auto) 0.42 K/uL (0.01-0.20); Immature Granulocytes % (auto) 2.6 %; Lymphocytes # (auto) 0.26 K/uL (1.20-3.40); Lymphocytes % (auto) 1.6 %; Mean Corpuscular Hgb Conc 31.1 g/dL (32.0-36.0); Mean Corpuscular Volume 112.4 fL (80.0-100.0); Mean Platelet Volume 11.6 fL (9.4-12.4); Monocytes # (auto) 0.92 K/uL (0.11-0.59); Monocytes % (auto) 5.8 %; Neutrophils # (auto) 14.36 K/uL (1.40-6.50); Neutrophils % (auto) 89.9 %; Platelet Count 133 K/uL (130-400); RDW Coefficient of Variation 17.7 % (11.5-14.5); RDW Standard Deviation 73.2 fL (36.4-46.3); Red Blood Count 2.83 M/uL (4.20-5.40); White Blood Count 15.98 K/ul (4.8-10.8)
[2023-12-14 04:53] LABS: Ferritin 63.7 ng/ml (8-388)
[2023-12-14] MEDS: METOPROLOL TARTRATE 1 MG/ML VIAL IV STA ×3 (05:07→23:56)
[2023-12-14] MEDS: METOPROLOL TARTRATE 1 MG/ML VIAL IV ONE (05:08)
[2023-12-14 05:24] LABS: INR 4.8 (0.9-1.1); Prothrombin Time 47.6 Seconds (9.0-12.0)
[2023-12-14 05:34] LABS: Folate (Folic Acid),Ser orPlas 10.9 ng/ml (>5.38)
[2023-12-14 06:23] LABS: Albumin Level 3.1 gm/dl (3.4-5.0); Calcium 8.1 mg/dl (8.6-10.3); Magnesium 2.3 mg/dl (1.7-2.4); Potassium 5.6 mmol/L (3.5-5.1)
[2023-12-14 06:29] LABS: Albumin Globulin Ratio 0.9 (0.9-2); BUN Creatinine Ratio 23.6 (10-20); Creatinine Clr Calc Pharmacy 14.1 ml/min; Est GFR (African American) 17.6 ml/min; Est GFR (Non-African American) 15.2 ml/min; Globulin 3.6 gm/dl (2.5-4.0); Phosphorus 3.9 mg/dl (2.5-4.9); Total Protein 6.7 gm/dl (6.0-8.3)
--- NOTE | 2023-12-14 07:11 | Cardiology Progress Note ---
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 Underwent cystoscopy with left ureteral stent placement 12/12/2023. Now has tachycardia and hypotension in the setting of lactic acidosis. E. coli noted on urinalysis. PLAN: Urosepsis/left ureter obstruction secondary to calculus: CKD with RADHA: 1. Getting IVF/LR at 80cc/hr 2. [place] cath in place for accurate I&O. 3. Torsemide and Imdur on hold as well as Beta buddy. 4. Antibiotics per primary service 5. BP improved this am-- patient on phenylephrine gtt @0.1 mcg/kg/min 6. Lactate improved Chronic systolic and diastolic CHF: 1. Clinical presentation suggesting hypovolemia, + sepsis. Receiving IVF 2. Ongoing Hyperkalemia noted-- Not on K supplementation CAD s/p CABG: Hx of Bioprosthetic AVR: Status post AVR and CABG in April 2006 receiving a #19 Mary-Good bioprosthesis in the aortic valve position, VARGHESE graft to the LAD, SVG with sequential grafting from LAD diagonal to the circumflex obtuse marginal, and a SVG to the RCA Permanent Atrial fibrillation: SSS s/p PPM: Permanent atrial fibrillation-- normally maintained on metoprolol succinate 150 mg BID as an outpatient. SSS Status post April 08, 2014 dual chamber pacemaker implantation. Status post August 02, [address] Chau at [facility] - Nexitronic Terri XT SR MRI SureScan [id number], Serial # [id number] 1. Will hold prior to hospital treatment beta buddy given systolic blood pressure in the 90s to low 100s. 2. Anticipate heart rate may improve with volume resuscitation and treatment for sepsis including ongoing antibiotic therapy however future considerations include adding IV amiodarone for purpose of rate control in the setting of hypotension 3. She is not a candidate for digoxin at present given her acute kidney injury 4. Coumadin on hold due to supratherapeutic INR Patient is a DNR/DNI status. Case to be discussed with Dr. Richardson-- will follow. I spent a total of 45 minutes on the date of service in preparation, delivery, and documentation of the care provided to the patient excluding any time spent in the performance of separately billed services. ELIN Ruiz Department of Cardiology, [facility] This chart was completed in part utilizing Speech Voice Recognition Software. Grammatical errors, random word insertions, pronoun errors, and incomplete sentences are an occasional consequence of this system due to software limitations, ambient noise, and hardware issues. Any formal questions or concerns about the content, text, or information contained within the body of this dictation should be directly addressed to the provider for clarification. Admission and Anticipated Discharge Date Admission Date: December 12, 2023 Supervising Physician Co-Signing Physician Notes Attending attestation: Case reviewed with the advanced practitioner. I have personally performed a history and physical examination on the patient. I have reviewed the advanced practitioner's documentation on the date of service referenced in note, and I agree with, and take responsibility for the plan of ca re. Data: Echocardiogram performed 12/12/2023 revealed large sized apical, septal, anteroseptal, inferior, posterior wall motion abnormality with hypokinesis akinesis of the segments, LVEF mildly reduced at 40-45%, moderate to severe right regurgitation, severe tricuspid vegetation, small to moderate left pleural effusion noted. Compared to the previous echocardiogram performed in August,, a small to moderate left lower effusion is now present, there was no significant change Proceed with one-time dose of Veltassa for treatment potassium level 5.6. Continue to hold beta-blockers given hypotension. Urine culture notable for ESBL E. coli which is sensitive to Zosyn. Joe Richardson DO Subjective 88-year-old female with complex cardiac history including ischemic heart disease, previous CABG, bioprosthetic AVR, mild left ventricular systolic dysfunction and chronic atrial fibrillation Presents with urosepsis secondary to obstruction of the left ureter secondary to calculus. Underwent cystoscopy with left ureteral stent placement 12/12/2023. Now has tachycardia and hypotension in the setting of lactic acidosis. E. coli noted on urinalysis. 12/12/2023: S/p cystoscopy with left ureteral stent placement 12/12/2023. 12/13/2023: Decline in overall clinical status. Tachycardic (AFIB RVR) and hypotension in the setting of lactic acidosis. Transferred to ICU. 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 Coumadin on hold due to supratherapeutic INR. 12/14/2023: Tele: AFIB 10-120s Upon entrance into the room patient resting in bed, asleep. Woke easily. feels fatigued and weak. No chest pain, shortness of breath, or palptiations. No lightheadedness or dizziness. No orthopnea, PND, or lower extremity edema. [place] cath in place. Ongoing low output. Labs: Scr:1.9>>2.0>>2.6>>2.71 K: 4.7>>4.6>>5.3>>5.2>>5.6 Lactate: 4.6>>4.5>>3.6>>1.5 Hgb: 11.9>>11.0>>10.5>>9.9 INR: 2.5>>3.4 (Coumadin held 12/13)>>4.8 (12/14) Review of Systems Review of Systems: All systems reviewed & are unremarkable except as noted in HPI & below Physical Exam Constitutional: + ill appearing; no acute distress Eyes: PERRL, conjunctivae normal, anicteric sclerae Neck: normal visual inspection and trachea midline Respiratory: normal respiratory effort (shallow breaths ), + cough and able to speak in complete sentences; no respiratory distress and not tachypneic Auscultation: + diminished lung sounds Cardiovascular: Rate/Rhythm: + tachycardic and + irregularly irregular Heart Sounds: + murmur Vessels: no JVD Extremities: + edema (trace BLLE edema R>L) Chest (Breasts): Chest: + pacemaker Gastrointestinal (Abdomen): normal bowel sounds, soft, nontender, no hepatosplenomegaly Skin: no rashes, warm and dry Neurologic: PERRL, EOMI, accommodation nl, no face palsy, no dysarthria Psychiatric: Orientation: alert and oriented x 3 Results & Data Vital Signs (Past 12 Hours) Vital Signs Temp Pulse Resp BP Pulse Ox Pulse Ox O2 Del Method 12/14/23 06:00 93/69 L 12/14/23 06:00 36.1 C L 113 H 18 97 12/14/23 05:45 36.2 C L 106 H 19 92 12/14/23 05:45 98/68 L 12/14/23 05:29 102/66 12/14/23 05:29 36.2 C L 122 H 18 98 12/14/23 05:22 112 H 102/66 12/14/23 05:16 36.2 C L 109 H 16 97 12/14/23 05:16 103/68 12/14/23 05:07 120 H 130/83 12/14/23 05:00 36.2 C L 120 H 22 87 L 12/14/23 05:00 130/83 12/14/23 04:00 95/69 L 12/14/23 04:00 36.1 C L 123 H 19 95 12/14/23 03:01 36.2 C L 121 H 21 88 L 12/14/23 03:01 115/61 12/14/23 02:01 35.9 C L 112 H 14 97 12/14/23 02:01 107/56 L 12/14/23 01:04 117/84 12/14/23 01:04 35.9 C L 111 H 20 93 12/14/23 00:19 81/58 L 12/14/23 00:19 36.0 C L 115 H 22 92 12/13/23 23:09 114 H 12/13/23 23:02 36.2 C L 117 H 23 90 12/13/23 23:02 101/71 12/13/23 23:00 36.2 C L 116 H 22 95 12/13/23 22:45 100/64 12/13/23 22:45 36.2 C L 108 H 19 97 12/13/23 22:31 105/79 12/13/23 22:31 36.2 C L 120 H 28 H 83 L 12/13/23 22:18 110 H 92/62 L 12/13/23 22:03 110 H 90/54 L 12/13/23 22:02 114 H 90/54 L 12/13/23 22:01 90/54 L 12/13/23 22:01 36.2 C L 112 H 19 96 12/13/23 21:47 120 H 112/86 12/13/23 21:30 36.2 C L 120 H 22 98 12/13/23 21:30 101/68 12/13/23 21:01 107/60 12/13/23 21:01 36.2 C L 124 H 16 98 12/13/23 20:30 90/66 L 12/13/23 20:30 36.1 C L 119 H 10 L 96 12/13/23 20:00 99/65 L 12/13/23 20:00 35.9 C L 127 H 18 99 12/13/23 20:00 100 12/13/23 19:30 78/54 L 12/13/23 19:30 35.9 C L 111 H 17 98 12/13/23 19:10 Nasal Cannula 12/13/23 19:00 95/64 L 12/13/23 19:00 35.8 C L 114 H 24 90 O2 Del Method O2 Flow Rate O2 Flow Rate 12/14/23 06:00 12/14/23 06:00 12/14/23 05:45 12/14/23 05:45 12/14/23 05:29 12/14/23 05:29 12/14/23 05:22 12/14/23 05:16 12/14/23 05:16 12/14/23 05:07 12/14/23 05:00 12/14/23 05:00 12/14/23 04:00 12/14/23 04:00 12/14/23 03:01 12/14/23 03:01 12/14/23 02:01 12/14/23 02:01 12/14/23 01:04 12/14/23 01:04 12/14/23 00:19 12/14/23 00:19 12/13/23 23:09 12/13/23 23:02 12/13/23 23:02 12/13/23 23:00 12/13/23 22:45 12/13/23 22:45 12/13/23 22:31 12/13/23 22:31 12/13/23 22:18 12/13/23 22:03 12/13/23 22:02 12/13/23 22:01 12/13/23 22:01 12/13/23 21:47 12/13/23 21:30 12/13/23 21:30 12/13/23 21:01 12/13/23 21:01 12/13/23 20:30 12/13/23 20:30 12/13/23 20:00 12/13/23 20:00 12/13/23 20:00 Nasal Cannula 3 12/13/23 19:30 12/13/23 19:30 12/13/23 19:10 3 12/13/23 19:00 12/13/23 19:00 (2) Sepsis Acute renal failure type: unspecified Sepsis acute organ dysfunction status: with acute organ dysfunction Sepsis type: sepsis due to unspecified organism Severe sepsis acute organ dysfunction type: acute renal failure Severe sepsis shock status: unspecified Qualified Code(s): A41.9 - Sepsis, unspecified organism; R65.20 - Severe sepsis without septic shock; N17.9 - Acute kidney failure, unspecified (8) CAD (coronary artery disease) Associated angina: without angina Coronary Disease-Associated Artery/Lesion type: [place] artery [place] vs. transplanted heart: [place] heart Qualified Code(s): I25.10 - Atherosclerotic heart disease of [place] coronary artery without angina pectoris
[2023-12-14 08:56] LABS: Estimated Average Glucose 154 mg/dl
[2023-12-14] MEDS ORDERED: FUROSEMIDE INJ 20 MG/2 ML VIAL IV SCH (09:00)
--- NOTE | 2023-12-14 09:34 | Critical Care Progress Note ---
Date of Service December 14, 2023 Assessment & Plan (1) Sepsis: Plan: Reason Critically Ill: 88-year-old female with sepsis PLAN: Resp: Chronic hypoxic respiratory failure on oxygen -Wean oxygen as tolerated, patient DNI in event of respiratory insuf ficiency CV: History of reduced EF heart failure -Cardiology consult pending Persistent atrial fibrillation -On systemic 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 with warfarin Pacemaker in place -Blood cultures pending Nonsustained ventricular tachycardia -Reviewed with cardiology Fluids/Renal: Mild hyperkalemia -Recheck BMP this afternoon Acute kidney injury on chronic kidney disease: Worsening -[place] for strict I's and O's: patient declining Lactic acid acidosis: Resolved - thiamine 500mg IV ID: Sepsis secondary to ESBL E. coli UTI -Converted antibiotics to ertapenem: Day 1 of 14 -Wean phenylephrine as able GI/Nutrition: Advance diet as tolerated patient on small amount of phenylephrine Heme: Baseline anemia -Type and screen ordered DVT prophylaxis: Holding additional warfarin, therapeutic INR at this time, SCDs Endocrine: ICU hyperglycemia protocol Relative adrenal insufficiency: 50 mg hydrocortisone every 8 hours Vascular access: Peripheral IVs Code Status: DNR/DNI in event of cardiac arrest Disposition: ICU while requiring vasoactive medications (2) Acute renal failure superimposed on chronic kidney disease: (3) Heart failure with improved ejection fraction (HFimpEF): (4) Left ureteral calculus: (5) AF (atrial fibrillation): (6) Cardiac pacemaker in situ: (7) Atrial fibrillation, persistent: (8) Current use of chcf 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: Admission and Anticipated Discharge Date Admission Date: December 12, 2023 Supervising Physician Co-Signing Physician Notes I have personally spent 45 minutes of critical care time in the direct management of this patient. This is a life/limb threatening event. This includes time spent evaluating patient, direct bedside care, chart review, placing orders, interpretation of diagnostic studies, discussion with c onsultants, patient, and/or family members regarding treatment decisions, as well as other required patient management activities. This time is exclusive of all separately billable procedures, and teaching time and separate from and in addition to any other critical care service time. Subjective Overnight vasoactive medications were initiated and started on steroid supplementation. Patient complains of feeling bloated today Physical Exam Physical Exam: General: Alert. nontoxic. Skin: Warm, dry, Head: Atraumatic Ears, nose, mouth and throat: airway patent Cardiovascular: Normal peripheral perfusion Respiratory: no respiratory distress Gastrointestinal: Non distended Musculoskeletal: No deformity Results & Data Results & Data Vital Signs (Past 12 Hours) Vital Signs Temp Pulse Pulse Resp BP Pulse Ox O2 Del Method 12/14/23 08:26 116 H 12/14/23 07:57 116 H 20 96 Nasal Cannula 12/14/23 07:49 Nasal Cannula 12/14/23 07:43 113/69 12/14/23 07:43 36.1 C L 120 H 25 H 93 12/14/23 07:01 89/62 L 12/14/23 07:01 36.2 C L 110 H 25 H 96 12/14/23 07:00 36.2 C L 116 H 30 H 97 12/14/23 06:56 95/68 L 12/14/23 06:56 36.2 C L 114 H 26 H 92 12/14/23 06:00 93/69 L 12/14/23 06:00 36.1 C L 113 H 18 97 12/14/23 05:45 36.2 C L 106 H 19 92 12/14/23 05:45 98/68 L 12/14/23 05:29 102/66 12/14/23 05:29 36.2 C L 122 H 18 98 12/14/23 05:22 112 H 102/66 12/14/23 05:16 36.2 C L 109 H 16 97 12/14/23 05:16 103/68 12/14/23 05:07 120 H 130/83 12/14/23 05:00 36.2 C L 120 H 22 87 L 12/14/23 05:00 130/83 12/14/23 04:00 95/69 L 12/14/23 04:00 36.1 C L 123 H 19 95 12/14/23 03:01 36.2 C L 121 H 21 88 L 12/14/23 03:01 115/61 12/14/23 02:01 35.9 C L 112 H 14 97 12/14/23 02:01 107/56 L 12/14/23 01:04 117/84 12/14/23 01:04 35.9 C L 111 H 20 93 12/14/23 00:19 81/58 L 12/14/23 00:19 36.0 C L 115 H 22 92 12/13/23 23:09 114 H 12/13/23 23:02 36.2 C L 117 H 23 90 12/13/23 23:02 101/71 12/13/23 23:00 36.2 C L 116 H 22 95 12/13/23 22:45 100/64 12/13/23 22:45 36.2 C L 108 H 19 97 12/13/23 22:31 105/79 12/13/23 22:31 36.2 C L 120 H 28 H 83 L 12/13/23 22:18 110 H 92/62 L 12/13/23 22:03 110 H 90/54 L 12/13/23 22:02 114 H 90/54 L 12/13/23 22:01 90/54 L 12/13/23 22:01 36.2 C L 112 H 19 96 12/13/23 21:47 120 H 112/86 O2 Flow Rate 12/14/23 08:26 12/14/23 07:57 5 12/14/23 07:49 3 12/14/23 07:43 12/14/23 07:43 12/14/23 07:01 12/14/23 07:01 12/14/23 07:00 12/14/23 06:56 12/14/23 06:56 12/14/23 06:00 12/14/23 06:00 12/14/23 05:45 12/14/23 05:45 12/14/23 05:29 12/14/23 05:29 12/14/23 05:22 12/14/23 05:16 12/14/23 05:16 12/14/23 05:07 12/14/23 05:00 12/14/23 05:00 12/14/23 04:00 12/14/23 04:00 12/14/23 03:01 12/14/23 03:01 12/14/23 02:01 12/14/23 02:01 12/14/23 01:04 12/14/23 01:04 12/14/23 00:19 12/14/23 00:19 12/13/23 23:09 12/13/23 23:02 12/13/23 23:02 12/13/23 23:00 12/13/23 22:45 12/13/23 22:45 12/13/23 22:31 12/13/23 22:31 12/13/23 22:18 12/13/23 22:03 12/13/23 22:02 12/13/23 22:01 12/13/23 22:01 12/13/23 21:47 Critical Care Results & Data Vital Signs (Past 12 Hours) Vital Signs Temp Pulse Pulse Resp BP Pulse Ox O2 Del Method 12/14/23 15:11 142/113 H 12/14/23 15:11 36.8 C 126 H 31 H 96 12/14/23 15:07 149/93 H 12/14/23 15:07 36.8 C 134 H 30 H 92 12/14/23 15:04 36.8 C 138 H 19 95 12/14/23 15:04 140/105 H 12/14/23 15:02 160/82 H 12/14/23 15:02 36.8 C 136 H 28 H 95 12/14/23 15:00 36.8 C 126 H 32 H 95 12/14/23 14:01 94/74 L 12/14/23 14:01 36.8 C 124 H 23 94 12/14/23 14:00 36.8 C 123 H 23 98 Oxymask 12/14/23 13:00 98/64 L 12/14/23 13:00 36.8 C 121 H 19 91 12/14/23 12:00 36.5 C 123 H 31 H 96 12/14/23 12:00 108/69 12/14/23 11:26 117 H 20 93 Nasal Cannula 12/14/23 11:00 103/70 12/14/23 11:00 36.3 C L 132 H 36 H 95 12/14/23 10:10 36.2 C L 120 H 22 91 12/14/23 10:10 94/77 L 12/14/23 10:00 36.2 C L 126 H 20 90 12/14/23 09:00 113/78 12/14/23 09:00 36.0 C L 122 H 26 H 94 12/14/23 08:26 116 H 12/14/23 08:01 36.1 C L 123 H 15 98 12/14/23 08:01 102/76 12/14/23 08:00 36.1 C L 112 H 16 99 12/14/23 07:57 116 H 20 96 Nasal Cannula 12/14/23 07:49 Nasal Cannula 12/14/23 07:43 113/69 12/14/23 07:43 36.1 C L 120 H 25 H 93 12/14/23 07:01 89/62 L 12/14/23 07:01 36.2 C L 110 H 25 H 96 12/14/23 07:00 36.2 C L 116 H 30 H 97 12/14/23 06:56 95/68 L 12/14/23 06:56 36.2 C L 114 H 26 H 92 12/14/23 06:00 93/69 L 12/14/23 06:00 36.1 C L 113 H 18 97 12/14/23 05:45 36.2 C L 106 H 19 92 12/14/23 05:45 98/68 L 12/14/23 05:29 102/66 12/14/23 05:29 36.2 C L 122 H 18 98 12/14/23 05:22 112 H 102/66 12/14/23 05:16 36.2 C L 109 H 16 97 12/14/23 05:16 103/68 12/14/23 05:07 120 H 130/83 12/14/23 05:00 36.2 C L 120 H 22 87 L 12/14/23 05:00 130/83 12/14/23 04:00 95/69 L 12/14/23 04:00 36.1 C L 123 H 19 95 O2 Flow Rate 12/14/23 15:11 12/14/23 15:11 12/14/23 15:07 12/14/23 15:07 12/14/23 15:04 12/14/23 15:04 12/14/23 15:02 12/14/23 15:02 12/14/23 15:00 12/14/23 14:01 12/14/23 14:01 12/14/23 14:00 3 12/14/23 13:00 12/14/23 13:00 12/14/23 12:00 12/14/23 12:00 12/14/23 11:26 3 12/14/23 11:00 12/14/23 11:00 12/14/23 10:10 12/14/23 10:10 12/14/23 10:00 12/14/23 09:00 12/14/23 09:00 12/14/23 08:26 12/14/23 08:01 12/14/23 08:01 12/14/23 08:00 12/14/23 07:57 5 12/14/23 07:49 3 12/14/23 07:43 12/14/23 07:43 12/14/23 07:01 12/14/23 07:01 12/14/23 07:00 12/14/23 06:56 12/14/23 06:56 12/14/23 06:00 12/14/23 06:00 12/14/23 05:45 12/14/23 05:45 12/14/23 05:29 12/14/23 05:29 12/14/23 05:22 12/14/23 05:16 12/14/23 05:16 12/14/23 05:07 12/14/23 05:00 12/14/23 05:00 12/14/23 04:00 12/14/23 04:00 Lab & Micro Results (Past 24 Hours) RBC 2.83 M/uL (4.20-5.40) L 12/14/23 WBC 15.98 K/ul (4.8-10.8) H 12/14/23 Hgb 9.9 g/dl (12.0-16.0) L 12/14/23 Hct 31.8 % (37.0-47.0) L 12/14/23 MCV 112.4 fL (80.0-100.0) H 12/14/23 MCH 35.0 pg (25.0-34.0) H 12/14/23 MCHC 31.1 g/dL (32.0-36.0) L 12/14/23 RDW Standard Deviation 73.2 fL (36.4-46.3) H 12/14/23 RDW Coefficient of Variation 17.7 % (11.5-14.5) H 12/14/23 Plt Count 133 K/uL (130-400) 12/14/23 MPV 11.6 fL (9.4-12.4) 12/14/23 Neutrophils (%) (Auto) 89.9 % 12/14/23 Lymphocytes (%) (Auto) 1.6 % 12/14/23 Monocytes # (Auto) 0.92 K/uL (0.11-0.59) H 12/14/23 Eosinophils # (Auto) 0.00 K/uL (0.00-0.50) 12/14/23 Immature Granulocyte % (Auto) 2.6 % 12/14/23 Neutrophils # (Auto) 14.36 K/uL (1.40-6.50) H 12/14/23 Lymphocytes # (Auto) 0.26 K/uL (1.20-3.40) L 12/14/23 Monocytes # (Auto) 0.92 K/uL (0.11-0.59) H 12/14/23 Eosinophils # (Auto) 0.00 K/uL (0.00-0.50) 12/14/23 Basophils # (Auto) 0.02 K/uL (0.00-0.20) 12/14/23 Immature Granulocyte # (Auto) 0.42 K/uL (0.01-0.20) H 12/14 Na 137 mmol/L (136-145) 12/14/23 K 5.6 mmol/L (3.5-5.1) H 12/14/23 Cl 103 mmol/L (98-107) 12/14/23 CO2 24 mmol/L (21-32) 12/14/23 Anion Gap 10 (3-11) 12/14/23 BUN 64 mg/dl (6-23) H 12/14/23 Creatinine 2.71 mg/dl (0.6-1.2) H 12/14/23 Estimated GFR ( Amer) 17.6 ml/min 12/14/23 Estimated GFR (Non-Af Amer) 15.2 ml/min 12/14/23 BUN/Creatinine Ratio 23.6 (10-20) H 12/14/23 Glu 139 mg/dl (70-99(Fasting)) H 12/14/23 Ca 8.1 mg/dl (8.6-10.3) L 12/14/23 Phosphorus Level 3.9 mg/dl (2.5-4.9) 12/14/23 Total Bilirubin 1.0 mg/dl (0.2-1.0) 12/14/23 AST 27 U/L (13-39) 12/14/23 ALT 11 U/L (7-52) 12/14/23 Alkaline Phosphatase 74 U/L (34-104) 12/14/23 TP 6.7 gm/dl (6.0-8.3) 12/14/23 Albumin 3.1 gm/dl (3.4-5.0) L 12/14/23 Globulin 3.6 gm/dl (2.5-4.0) 12/14/23 Albumin/Globulin Ratio 0.9 (0.9-2) 12/14/23 Mg 2.3 mg/dl (1.7-2.4) 12/14/23 03:54 Calcium Level 8.1 mg/dl (8.6-10.3) L 12/14/23 03:54 Prothromb Time International Ratio 4.8 (0.9-1.1) H 12/14/23 03 :54 Microbiology 12/13/23 09:15 Aerobic Blood Culture - Preliminary Blood No growth in Aerobic bottle after 24 hours. Anaerobic Blood Culture - Preliminary No growth in Anaerobic bottle after 24 hours. 12/13/23 09:29 Aerobic Blood Culture - Preliminary Blood No growth in Aerobic bottle after 24 hours. 12/12/23 04:29 Urine Culture - Final Urine,Clean Catch Escherichia coli ESBL I & O Totals 24 Hours 12/13/23 12/14/23 12/15/23 06:59 06:59 06:59 Intake Total 3308.667 / 3308.667 4030.952 / 4030.952 1064 / 1064 Output Total 100 / 100 433 / 433 100 / 100 Balance 3208.667 / 3208.667 3597.952 / 3597.952 964 / 964 Cumulative 12/12/23 01:02 thru 12/14/23 11:00 Intake Total 8403.619 Output Total 633 Balance 7770.619 RT Ventilator Mngmt (Last Documented) Ventilator Ordered Settings Respiratory Rate 31 12/14/23 15:11 Fraction of Inspired Oxygen 2 12/13/23 17:50 Ventilator - PT Measurements Respiratory Rate 31 Coding Level of Care Code 92289 CRITICAL CARE 1ST 30-74M Diagnoses Sepsis with acute renal failure, due to unspecified organism, unspecified acute renal failure type, unspecified whether septic shock present A41.9; R65.20; N17.9 Acute renal failure type: unspecified Sepsis acute organ dysfunction status: with acute organ dysfunction Sepsis type: sepsis due to unspecified organism Severe sepsis acute organ dysfunction type: acute renal failure Severe sepsis shock status: unspecified Acute renal failure superimposed on chronic kidney disease N17.9; N18.9 Heart failure with improved ejection fraction (HFimpEF) I50.32 Left ureteral calculus N20.1 AF (atrial fibrillation) I48.91 Atrial fibrillation type: unspecified Cardiac pacemaker in situ Z95.0 Atrial fibrillation, persistent I48.19 Current use of chcf 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
[2023-12-14] MEDS ORDERED: SENNOSIDES 8.8 MG/5 ML UDC PO PRN (09:47)
[2023-12-14] MEDS: COUGH DROP (SUGAR FREE) LOZ 24 LOZ/1 BOX BUCCAL PRN (10:03)
--- NOTE | 2023-12-14 10:48 | Urology Progress Note ---
Date of Service December 14, 2023 Assessment & Plan (1) Left ureteral calculus: (2) RADHA (acute kidney injury): (3) Complicated UTI (urinary tract infection): Plan 88yo F with an obstructing left ureteral stone and concern for UTI. POD #2 s/p cystoscopy and left ureteral stent placement Moved to ICU overnight due to hypotension and tachycardia Tolerating the ureteral stent with minimal bother. Afebrile, hypotensive- on vasopressors and steriods Labs reviewed - WBC 15.98, Hemoglobin 9.9, Creatinine 2.71. Urine culture E Coli ESBL, blood cultures prelim no growth x 24 hours. Currently on Ertapenem. [place] catheter in place, draining appropriately for maximal decompression. Continue supportive care and monitoring. Continue antibiotics as prescribed. No plan for further urologic intervention during this admission. Will arrange outpatient follow-up with our service for definitive stone management after the infection has been treated. Urology will follow along. Admission and Anticipated Discharge Date Admission Date: December 12, 2023 Supervising Physician Co-Signing Physician Notes I have discussed Ms. Cruz's case with ELIN Marin and agree with the above documentation. She did have appropriate source control with Camarillo catheter and stent in place. Would recommend continuing broad-spectrum a ntibiotics, narrowing as culture data becomes available. Continue supportive care. No plan for additional intervention at this time, would wait until infection has been treated prior to stone treatment. -Andres Phillips MD. Subjective Pt examined at bedside this AM. Pt was moved to ICU overnight- due to tachycardia and hypotension in the setting of lactic acidosis Camarillo inserted overnight for I/O and maximum decompression. Draining appropriately without hematuria. Awake, lying in ICU bed No acute distress. Family at bedside, stating she is restless. Tolerating the stent with minimal bother. No fevers noted. Review of Systems Constitutional: as per Subjective / HPI Genitourinary: as per Subjective / HPI Physical Exam Constitutional: no acute distress ENMT: Ears: + hearing impairment Respiratory: no respiratory distress and no labored breathing Musculoskeletal: Head/Neck/Chest: normocephalic Neurologic: moves all extremities and awake Psychiatric: Orientation: alert and cooperative Genitourinary: Camarillo in place Results & Data Vital Signs (Past 12 Hours) Vital Signs Temp Pulse Pulse Resp BP Pulse Ox O2 Del Method 12/14/23 10:10 36.2 C L 120 H 22 91 12/14/23 10:10 94/77 L 12/14/23 10:00 36.2 C L 126 H 20 90 12/14/23 09:00 113/78 12/14/23 09:00 36.0 C L 122 H 26 H 94 12/14/23 08:26 116 H 12/14/23 08:01 36.1 C L 123 H 15 98 12/14/23 08:01 102/76 12/14/23 08:00 36.1 C L 112 H 16 99 12/14/23 07:57 116 H 20 96 Nasal Cannula 12/14/23 07:49 Nasal Cannula 12/14/23 07:43 113/69 12/14/23 07:43 36.1 C L 120 H 25 H 93 12/14/23 07:01 89/62 L 12/14/23 07:01 36.2 C L 110 H 25 H 96 12/14/23 07:00 36.2 C L 116 H 30 H 97 12/14/23 06:56 95/68 L 12/14/23 06:56 36.2 C L 114 H 26 H 92 12/14/23 06:00 93/69 L 12/14/23 06:00 36.1 C L 113 H 18 97 12/14/23 05:45 36.2 C L 106 H 19 92 12/14/23 05:45 98/68 L 12/14/23 05:29 102/66 12/14/23 05:29 36.2 C L 122 H 18 98 12/14/23 05:22 112 H 102/66 12/14/23 05:16 36.2 C L 109 H 16 97 12/14/23 05:16 103/68 12/14/23 05:07 120 H 130/83 12/14/23 05:00 36.2 C L 120 H 22 87 L 12/14/23 05:00 130/83 12/14/23 04:00 95/69 L 12/14/23 04:00 36.1 C L 123 H 19 95 12/14/23 03:01 36.2 C L 121 H 21 88 L 12/14/23 03:01 115/61 12/14/23 02:01 35.9 C L 112 H 14 97 12/14/23 02:01 107/56 L 12/14/23 01:04 117/84 12/14/23 01:04 35.9 C L 111 H 20 93 12/14/23 00:19 81/58 L 12/14/23 00:19 36.0 C L 115 H 22 92 12/13/23 23:09 114 H 12/13/23 23:02 36.2 C L 117 H 23 90 12/13/23 23:02 101/71 12/13/23 23:00 36.2 C L 116 H 22 95 12/13/23 22:45 100/64 12/13/23 22:45 36.2 C L 108 H 19 97 O2 Flow Rate 12/14/23 10:10 12/14/23 10:10 12/14/23 10:00 12/14/23 09:00 12/14/23 09:00 12/14/23 08:26 12/14/23 08:01 12/14/23 08:01 12/14/23 08:00 12/14/23 07:57 5 12/14/23 07:49 3 12/14/23 07:43 12/14/23 07:43 12/14/23 07:01 12/14/23 07:01 12/14/23 07:00 12/14/23 06:56 12/14/23 06:56 12/14/23 06:00 12/14/23 06:00 12/14/23 05:45 12/14/23 05:45 12/14/23 05:29 12/14/23 05:29 12/14/23 05:22 12/14/23 05:16 12/14/23 05:16 12/14/23 05:07 12/14/23 05:00 12/14/23 05:00 12/14/23 04:00 12/14/23 04:00 12/14/23 03:01 12/14/23 03:01 12/14/23 02:01 12/14/23 02:01 12/14/23 01:04 12/14/23 01:04 12/14/23 00:19 12/14/23 00:19 12/13/23 23:09 12/13/23 23:02 12/13/23 23:02 12/13/23 23:00 12/13/23 22:45 12/13/23 22:45 PG Care Time/CCT Total # of Minutes Spent Total Time Spent with Patient: Total time spent is greater than 50% in coordination of care (as documented) at patient's floor/unit and/or counseling patient: Coding Level of Care Code 60118 SUB INP/OBS CARE 2/35MIN Diagnoses Left ureteral calculus N20.1 RADHA (acute kidney injury) N17.9 Complicated UTI (urinary tract infection) N39.0
[2023-12-14] MEDS: ERTAPENEM SODIUM 500 MG in SYRINGE 0 ML IV SCH (10:54)
[2023-12-14] MEDS: PATIROMER CALCIUM SORBITEX 8.4 GM PACK PO ONE ×2 (12:06→19:48)
--- NOTE | 2023-12-14 13:20 | Hospitalist Progress Note ---
Date of Service December 14, 2023 Assessment & Plan (1) Left ureteral calculus: Plan Pt is an 88yo female with past medical history significant for chronic hypoxemic respiratory failure on 3 L oxygen, hyperlipidemia, obstructive sleep apnea on oxygen, history of CAD s/p stent, sinus node dysfunction s/p pacemaker, heart failure with reduced ejection fraction, asymptomatic bilateral carotid artery stenosis, hypertension, chronic atrial fibrillation history of RADHA, CKD stage I II, restless leg syndrome, bilateral leg edema, essential thrombocythemia, s/p aortic valve replacement, lumbar spinal stenosis presenting with severe back and left flank pain that started the evening prior to arrival. Left ureteral calculus Renal colic Pt presented with severe back and left flank pain On admission afebrile, tachycardic and WBC elevated >10K UA suggestive of infection, urine Cx was obtained, and is currently growing gram negative rods CT ab/d pelvis concerning for moderate degree left hydronephrosis with 6 mm obstructing calculus in the proximal left ureter Was placed on cautious IV fluid hydration given CHF Hx Was initially started on IV Azactam, then switched to Ertapenem by previous provider based on prior Cx from 08/2023 that grew ESBL sensitive to Ertapenem IV Dilaudid as needed, IV antiemetics as needed Urology was consulted, appreciate recs: -s/p L ureteral stent placement on 12/12/23 Severe sepsis Septic shock On 12/13/23 pt hypotensive with reports of receiving fluid boluses overnight for the same Pt reporting shaking and chills WBC increased to >13K, tachycardic, hypothermic with urinary infectious source, meeting criteria for sepsis. Lactate elevated at 4.6 and blood Cx x2 ordered with NGTD Urine Cx currently growing ESBL E coli once more. Transferred to the ICU on 12/13/21 for pressor support Ertapenem was switched to Zosyn to which last Cx in Aug 2023 was sensitive (noted itchy rash allergy, NOT anaphylaxis), switched back based on sensitivities to Ertapenem in the ICU on 12/14 Continue Ertapenem ID consulted- appreciate further recs History of chronic systolic CHF EF of 40 to 45% on echo done in August 2023 Repeat echo on 12/14 noting similar findings except a small to moderate L pleural effusion Pt also with bilateral lower extremity edema On home torsemide 80mg with scheduled potassium Cardiology consulted- appreciate recs -holding diuresis at this time Noted baseline of 3L of oxygen use, monitor for fluid overload/increase in oxygen requirement History of chronic atrial fibrillation On metoprolol succinate 150mg bid for rate control, has been on hold due to parameters Also on Coumadin for 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, monitor INR INR currently elevated above goal from 12/13, holding warfarin at this time HR 120-130s, cardiology consulted as above, appreciate recs S/p bioprosthetic aortic valve replacement On coumadin, currently on hold as above INR goal 2-3 Hypertension On metoprolol succinate, Imdur and torsemide at home. Currently hypotensive in setting of severe sepsis noted above Cardiology consulted in setting of a fib with rvr, CHF and hypotension currently noted, appreciate recs -home imdur, metoprolol and torsemide discontinued at this time by cardiology Pt transferred to the ICU for BP pressor support Acute on chronic kidney disease stage 3/4 Presented with creatinine of ~ 2, appears to be baseline Currently elevated above baseline Gentle hydration as noted above Avoid nephrotoxic meds/contrast as much as possible Continue to monitor Acute on Chronic Anemia Hgb 11.9 on admission Iron level decreased, consider Venofer replacement Folate, b12 wnl Replete as needed Hyperkalemia K of 5.3 noted Holding home potassium supplements s/p Veltassa dose on 12/14 Monitor with AM labs Hyperglycemia DMII Glucose levels have been elevated, as high as 200 hgb1c of 7.0 noted this admission ISS while hospitalized, continue to monitor levels History of CAD s/p stent On Plavix, statin, metoprolol succinate and Imdur Continue Obstructive sleep apnea chronic hypoxic respiratory failure On home oxygen 3L 15/05 Continue to monitor for increased oxygen need Sinus node dysfunction status post pacemaker placement Hyperlipidemia On statin, continue GERD Continue Pepcid Thrombocythemia On hydroxyurea Follows with heme-onc CODE STATUS: DNR/DNI DVT prophylaxis: On Coumadin, currently on hold due to INR Diet: HH/DMII diet Dispo: PT/OT once more stable Admission and Anticipated Discharge Date Admission Date: December 12, 2023 Subjective Pt seen with both sons at bedside. Alert, oriented. States that she does not feel well. Feels like the shakes are better, notes she is not as cold as she was before. Review of Systems Review of Systems: All systems reviewed & are unremarkable except as noted in Subjective Physical Exam Physical Exam: General: Alert, oriented. No acute distress Skin: No noted rashes or bruises Psych: Appropriate mood and affect Neuro: some hearing loss noted HEENT: NC/AT Chest: Nontender to palpation. CV: Irregular Resp: Breath sounds clear bilaterally, no increased effort of breathing Abdomen:Soft, mildly tender diffusely Extremities: ++ edema in lower extremities bilaterally. Results & Data Results & Data Vital Signs (Past 12 Hours) Vital Signs Temp Pulse Pulse Resp BP Pulse Ox O2 Del Method 12/14/23 11:26 117 H 20 93 Nasal Cannula 12/14/23 10:10 36.2 C L 120 H 22 91 12/14/23 10:10 94/77 L 12/14/23 10:00 36.2 C L 126 H 20 90 12/14/23 09:00 113/78 12/14/23 09:00 36.0 C L 122 H 26 H 94 12/14/23 08:26 116 H 12/14/23 08:01 36.1 C L 123 H 15 98 12/14/23 08:01 102/76 12/14/23 08:00 36.1 C L 112 H 16 99 12/14/23 07:57 116 H 20 96 Nasal Cannula 12/14/23 07:49 Nasal Cannula 12/14/23 07:43 113/69 12/14/23 07:43 36.1 C L 120 H 25 H 93 12/14/23 07:01 89/62 L 12/14/23 07:01 36.2 C L 110 H 25 H 96 12/14/23 07:00 36.2 C L 116 H 30 H 97 12/14/23 06:56 95/68 L 12/14/23 06:56 36.2 C L 114 H 26 H 92 12/14/23 06:00 93/69 L 12/14/23 06:00 36.1 C L 113 H 18 97 12/14/23 05:45 36.2 C L 106 H 19 92 12/14/23 05:45 98/68 L 12/14/23 05:29 102/66 12/14/23 05:29 36.2 C L 122 H 18 98 12/14/23 05:22 112 H 102/66 12/14/23 05:16 36.2 C L 109 H 16 97 12/14/23 05:16 103/68 12/14/23 05:07 120 H 130/83 12/14/23 05:00 36.2 C L 120 H 22 87 L 12/14/23 05:00 130/83 12/14/23 04:00 95/69 L 12/14/23 04:00 36.1 C L 123 H 19 95 12/14/23 03:01 36.2 C L 121 H 21 88 L 12/14/23 03:01 115/61 12/14/23 02:01 35.9 C L 112 H 14 97 12/14/23 02:01 107/56 L 12/14/23 01:04 117/84 12/14/23 01:04 35.9 C L 111 H 20 93 12/14/23 00:19 81/58 L 12/14/23 00:19 36.0 C L 115 H 22 92 O2 Flow Rate 12/14/23 11:26 3 12/14/23 10:10 12/14/23 10:10 12/14/23 10:00 12/14/23 09:00 12/14/23 09:00 12/14/23 08:26 12/14/23 08:01 12/14/23 08:01 12/14/23 08:00 12/14/23 07:57 5 12/14/23 07:49 3 12/14/23 07:43 12/14/23 07:43 12/14/23 07:01 12/14/23 07:01 12/14/23 07:00 12/14/23 06:56 12/14/23 06:56 12/14/23 06:00 12/14/23 06:00 12/14/23 05:45 12/14/23 05:45 12/14/23 05:29 12/14/23 05:29 12/14/23 05:22 12/14/23 05:16 12/14/23 05:16 12/14/23 05:07 12/14/23 05:00 12/14/23 05:00 12/14/23 04:00 12/14/23 04:00 12/14/23 03:01 12/14/23 03:01 12/14/23 02:01 12/14/23 02:01 12/14/23 01:04 12/14/23 01:04 12/14/23 00:19 12/14/23 00:19
[2023-12-14] MEDS ORDERED: 0.2 MICRON FILTER SET 1 EACH IV ONE ×2 (13:21→18:22)
[2023-12-14] MEDS: MoRPHine SULFATE 2 MG/ML CARP IV STA (13:26)
--- NOTE | 2023-12-14 13:26 | Communication Note ---
Date of Service: December 14, 2023 Patient reassessed per request of nursing. She is restless, mildly confused, but able to be reorented. Complaints of subjective shortness of breath. Pulse oxymetry 96% on oxy mask , 3 l/m and on 2 l/m at baseline. Telemetry : reveals AF , rates a little higher than this am at 130 bmp, with a few short runs of NSVT. Plan: morphine 1 mg IV x 1 Start amiodarone infusion, no bolus 1 mg/min x 6 hours then 0.5 mg/min repeat bmp at 1700 for repeat renal function and potassium level. May need to consider Bipap. Chad Richardson, DO
[2023-12-14] MEDS: AMIODARONE / D5W 360 MG/200 ML BAG IV SCH (14:00)
[2023-12-14] MEDS: AMIODARONE / D5W 360 MG/200 ML BAG IV ONE (14:00)
--- NOTE | 2023-12-14 16:18 | Infectious Disease Consult ---
<Statement entered by Nessa Holman MD - 12/14/23 17:28> Attending Addendum This 88 y/o female w/ hx of chronic hypoxic respiratory failure on O2, HfrEF, A fib s/p PPM in place, CKD, and rectocele, known to [facility] for recurrent UTI w/ ESBL E coli, presented to [facility] for complicated UTI w/ an obstructing L ureteral stone (L hydronephrosis w/ 6 mm obstructing calculus in proximal L ureter on CT) and RADHA and had cystoscopy and L ureteral stent placement (12/12/23). Transferred to ICU after procedure for suspected septic shock. The patient is currently on ertapenem. CrCl 14.1. LA trending down to 1.5. Urine culture from 12/12 grew ESBL E coli (S to ertap, gent, nighat, nitro, tobra, zosyn) w/ negative blood cultures. I agree w/ continuing ertapenem 500 mg iv qd given low CrCl for total 14 days. I recommend to do definitve stone treatment at the tail end of abx therapy. I saw and evaluated the patient today. I have reviewed the trainee note and agree. I spent a total of 60 minutes coordinating, documenting, and providing care for this patient excluding time spent in performance of separately billed services. Date of Service December 14, 2023 Telehealth Information I performed this visit using a real-time telehealth connection between my lo cation and the patients location ([facility]). After connecting through interactive tele-video, patient was identified by name and date of and/or wristband check.Patient (or authorized healthcare civil rights representative) was informed that this was a telemedicine visit and it was being conducted confidentially over secure lines. My office door was closed and no one else was present in the room with me.Patient (or authorized healthcare civil rights representative) provided consent to proceed with the visit, expressed an understanding of privacy and security of the telemedicine visit, and gave permission to have a hospital civil rights representative in the room in order to assist with the visit and to conduct portions of the visit, as needed. I informed the patient (or authorized healthcare civil rights representative) that I reviewed their record and presented the opportunity for them to ask any questions regarding the visit today. The patient agreed to participate. Assessment & Plan (1) Sepsis: (2) Left ureteral calculus: Plan sepsis secondary to complicated urinary tract infection associated with a 6 mm obstructing left-sided ureteral calculi status post cystoscopy and left ureteral stent placement on 12/12/2023 urine cultures from 12/12 ESBL E coli (S-Augmentin, Unasyn, ertapenem, gentamicin, meropenem, nitrofurantoin, tobramycin, Zosyn R-ampicillin, cefazolin, cefepime, cefotaxime, ceftriaxone, Cipro, Levaquin, bactrim) we agree with continuing IV ertapenem but based on the creatinine clearance dose should be 500 mg daily recommending to continue IV ertapenem for total of 14 days, consider it extending by a day or 2 if ureteral stone removal is scheduled on if ureteral stone removal is delayed we do not recommend extending antibiotics, however preemptive antibiotic dose can be considered prior to procedure by Urology we also suggest taking probiotics while being on IV antibiotics infectious Disease will stop actively following, please call us with any questions History of Present Illness History of Present Illness 88 year F admitted on 12/12/23 with Significant history of chronic hypoxic respiratory failure on 3 L oxygen, hyperlipidemia, obstructive sleep apnea on oxygen, history of CAD status post stent sinus node dysfunction status post pacemaker, heart failure with reduced ejection fraction, asymptomatic bilateral carotid artery stenosis, hypertension, chronic AFib history of RADHA, CKD stage 3 restless leg syndrome, patient still thrombocytopenia was admitted with severe back pain and left flank pain noted to have left ureteral calculus, moderate degree of left hydronephrosis with 6 mm obstructing calculus in the proximal left ureter status post left ureteral stent placement on 12/12/2023 with plan for definitive stone management after the infection has been treated. Hospital course was complicated by hypotension and tachycardia and patient was transferred to ICU Patient remained afebrile T-max 36.9, WBC trending up 8K-?10 K--?13 K-?15.9 K. UA positive WBC 30, bacteria 2+, esterase 3+, urine cultures ESBL E coli (S- Augmentin, Unasyn, ertapenem, gentamicin, meropenem, nitrofurantoin, tobramycin, Zosyn R-ampicillin, cefazolin, cefepime, cefotaxime, ceftriaxone, Cipro, Levaquin, bactrim). Blood cultures from 12/13 no growth Allergies Allergy/AdvReac Type Severity Reaction Status Date / Time amiodarone Allergy Severe EDEMA Verified 09/12/23 16:05 FACE/LIPS/TONGUE, RASH azithromycin [From Zithromax] Allergy Severe THROAT Verified 09/12/23 16:05 SWELLED, DENIED SHORT OF BREATH. adhesive Allergy Intermediate Rash Verified 09/12/23 16:05 etodolac Allergy Intermediate PRURITIS-IO Verified 09/12/23 16:05 DINE iodine Allergy Intermediate itching Verified 09/12/23 16:05 Penicillins Allergy Intermediate ITCHY RASH Verified 09/12/23 16:05 Sulfa (Sulfonamide Allergy Intermediate Rash Verified 09/12/23 16:05 Antibiotics) cephalexin [From Keflex] Allergy Unknown PER Verified 09/12/23 16:05 GMG--TRUE REACTION TO KEFLEX gabapentin AdvReac Intermediate sedation Verified 09/12/23 16:05 lisinopril AdvReac Intermediate Swelling Verified 09/12/23 16:05 of Lip/Tongue/Throat simvastatin AdvReac Unknown CAN'T Verified 09/12/23 16:05 REMEMBER Home Medications Medication Instructions Recorded Confirmed Type acidophilus 25 million 2 tab PO DAILY 12/12/23 12/12/23 History cell-pectin, citrus 100 mg tablet buspirone 5 mg tablet 5 mg PO BID 12/12/23 12/12/23 History clopidogrel 75 mg tablet 75 mg PO DAILY 12/12/23 12/12/23 History clotrimazole-betamethasone 1 1 applic topical BID 12/12/23 12/12/23 History %-0.05 % topical cream famotidine 20 mg tablet 20 mg PO DAILY 12/12/23 12/12/23 History hydroxyurea 500 mg capsule 500 mg PO UD 12/12/23 12/12/23 History isosorbide mononitrate 60 mg 60 mg PO DAILY 12/12/23 12/12/23 History tablet,extended release 24 hr lactulose 10 gram/15 mL oral 15 ml PO TID 12/12/23 12/12/23 History solution metoprolol succinate 100 mg 150 mg PO BID 12/12/23 12/12/23 History tablet,extended release 24 hr mometasone 50 mcg/actuation nasal 1 spray intranasal DAILY 12/12/23 12/12/23 History spray potassium chloride 20 mEq 20 meq PO BID 12/12/23 12/12/23 History tablet,extended release(part/cryst) rosuvastatin 20 mg tablet 20 mg PO DAILY 12/12/23 12/12/23 History torsemide 20 mg tablet 80 mg PO DAILY 12/12/23 12/12/23 History warfarin 1 mg tablet 1 mg PO DAILY 12/12/23 12/12/23 History Patient History Medical History (Updated 12/14/23 @ 07:10 by ELIN Nieves) Coronary artery disease with angina pectoris CKD (chronic kidney disease), stage III Chronic diastolic CHF (congestive heart failure) Cardiac pacemaker in situ Sinus node dysfunction ASCVD (arteriosclerotic cardiovascular disease) 2006 - CABG x 3, bioproesthetic aortic valve replacement 2007 - PCI and stenting to SVG to RCA occlusion Atrial fibrillation, persistent 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 Tinnitus of left ear Sensorineural hearing loss of both ears HLD (hyperlipidemia) HTN (hypertension) Essential thrombocythemia CKD (chronic kidney disease) stage 2, GFR 60-89 ml/min UTI due to extended-spectrum beta lactamase (ESBL) producing Escherichia coli Generalized weakness Anemia 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) Replacement of aortic valve (Unknown) "[facility] 2005 [facility] " Dermatitis Carotid artery occlusion (Unknown) Surgical History Status post transcatheter aortic valve replacement (TAVR) using bioprosthesis History of colonoscopy with polypectomy History of cystoscopy History of tubal ligation Total abdominal hysterectomy with bilateral salpingo-oophorectomy (Unknown) Stented coronary artery (Unknown) Placement of stent in coronary artery (Unknown) "[facility] December 2006 " Implantation of aortic valve prosthesis or synthetic device (Unknown) Coronary artery bypass grafting (Unknown) "[facility] April 2006 VARGHESE to LAD SVG's to diagonal, obtuse marginal, RCA " Family History Father Prostate cancer Mother Diabetes Sister Coronary heart disease Social History Smoking Status: Never smoker Second Hand Exposure: No; Do You Dip or Chew Tobacco: No; Hx Alcohol Use: No Hx Substance Use: No Preferred Language: Syriac Communication Ability: Impaired Visual Impairment: No Limitations Hearing Ability: Normal Inspector Canvas Products Required: No Beliefs That Will Affect Care: None marital status: / Current Living Situation: Alone Feels Safe at Home: Yes Assistive Devices: Oxygen - Continuous and Walker Review of Systems All other review of systems were negative Physical Exam physical examination limited Results & Data Vital Signs (Past 12 Hours) Vital Signs Temp Pulse Pulse Resp BP Pulse Ox O2 Del Method 12/14/23 15:40 36.7 C 144 H 23 98 12/14/23 15:40 140 H 22 93 Oxymask 12/14/23 15:35 105/70 12/14/23 15:35 36.7 C 131 H 19 97 12/14/23 15:31 108/75 12/14/23 15:31 36.7 C 134 H 29 H 98 12/14/23 15:30 36.7 C 129 H 18 98 12/14/23 15:24 107/67 12/14/23 15:24 36.8 C 134 H 16 98 12/14/23 15:20 36.8 C 135 H 15 97 12/14/23 15:11 142/113 H 12/14/23 15:11 36.8 C 126 H 31 H 96 12/14/23 15:07 149/93 H 12/14/23 15:07 36.8 C 134 H 30 H 92 12/14/23 15:04 36.8 C 138 H 19 95 12/14/23 15:04 140/105 H 12/14/23 15:02 160/82 H 12/14/23 15:02 36.8 C 136 H 28 H 95 12/14/23 15:00 36.8 C 126 H 32 H 95 12/14/23 14:01 94/74 L 12/14/23 14:01 36.8 C 124 H 23 94 12/14/23 14:00 36.8 C 123 H 23 98 Oxymask 12/14/23 13:00 98/64 L 12/14/23 13:00 36.8 C 121 H 19 91 12/14/23 12:00 36.5 C 123 H 31 H 96 12/14/23 12:00 108/69 12/14/23 11:26 117 H 20 93 Nasal Cannula 12/14/23 11:00 103/70 12/14/23 11:00 36.3 C L 132 H 36 H 95 12/14/23 10:10 36.2 C L 120 H 22 91 12/14/23 10:10 94/77 L 12/14/23 10:00 36.2 C L 126 H 20 90 12/14/23 09:00 113/78 12/14/23 09:00 36.0 C L 122 H 26 H 94 12/14/23 08:26 116 H 12/14/23 08:01 36.1 C L 123 H 15 98 12/14/23 08:01 102/76 12/14/23 08:00 36.1 C L 112 H 16 99 12/14/23 07:57 116 H 20 96 Nasal Cannula 12/14/23 07:49 Nasal Cannula 12/14/23 07:43 113/69 12/14/23 07:43 36.1 C L 120 H 25 H 93 12/14/23 07:01 89/62 L 12/14/23 07:01 36.2 C L 110 H 25 H 96 12/14/23 07:00 36.2 C L 116 H 30 H 97 12/14/23 06:56 95/68 L 12/14/23 06:56 36.2 C L 114 H 26 H 92 12/14/23 06:00 93/69 L 12/14/23 06:00 36.1 C L 113 H 18 97 12/14/23 05:45 36.2 C L 106 H 19 92 12/14/23 05:45 98/68 L 12/14/23 05:29 102/66 12/14/23 05:29 36.2 C L 122 H 18 98 12/14/23 05:22 112 H 102/66 12/14/23 05:16 36.2 C L 109 H 16 97 12/14/23 05:16 103/68 12/14/23 05:07 120 H 130/83 12/14/23 05:00 36.2 C L 120 H 22 87 L 12/14/23 05:00 130/83 O2 Flow Rate 12/14/23 15:40 12/14/23 15:40 3 12/14/23 15:35 12/14/23 15:35 12/14/23 15:31 12/14/23 15:31 12/14/23 15:30 12/14/23 15:24 12/14/23 15:24 12/14/23 15:20 12/14/23 15:11 12/14/23 15:11 12/14/23 15:07 12/14/23 15:07 12/14/23 15:04 12/14/23 15:04 12/14/23 15:02 12/14/23 15:02 12/14/23 15:00 12/14/23 14:01 12/14/23 14:01 12/14/23 14:00 3 12/14/23 13:00 12/14/23 13:00 12/14/23 12:00 12/14/23 12:00 12/14/23 11:26 3 12/14/23 11:00 12/14/23 11:00 12/14/23 10:10 12/14/23 10:10 12/14/23 10:00 12/14/23 09:00 12/14/23 09:00 12/14/23 08:26 12/14/23 08:01 12/14/23 08:01 12/14/23 08:00 12/14/23 07:57 5 12/14/23 07:49 3 12/14/23 07:43 12/14/23 07:43 12/14/23 07:01 12/14/23 07:01 12/14/23 07:00 12/14/23 06:56 12/14/23 06:56 12/14/23 06:00 12/14/23 06:00 12/14/23 05:45 12/14/23 05:45 12/14/23 05:29 12/14/23 05:29 12/14/23 05:22 12/14/23 05:16 12/14/23 05:16 12/14/23 05:07 12/14/23 05:00 12/14/23 05:00 Laboratory Results Abnormal Lab Results 12/13/23 12/13/23 12/13/23 17:06 17:55 18:20 WBC RBC Hgb Hct MCV MCH MCHC RDW Std Deviation RDW Coeff of Ge Plt Count MPV Immature Gran % (Auto) Neut % (Auto) Lymph % (Auto) [place] % (Auto) Eos % (Auto) Baso % (Auto) Neut # (Auto) Lymph # (Auto) [place] # (Auto) Eos # (Auto) Baso # (Auto) Immature Gran # (Auto) PT INR Sodium Potassium Chloride Carbon Dioxide Anion Gap BUN Creatinine Est Cr Clr Drug Dosing Est GFR ( Amer) Est GFR (Non-Af Amer) BUN/Creatinine Ratio Glucose POC Glucose 185 H Estimat Average Glucose Hemoglobin A1c Lactate 4.5 H* Calcium Phosphorus Magnesium Iron TIBC Unsaturated IBC Transferrin % Sat Ferritin Total Bilirubin AST ALT Alkaline Phosphatase Total Protein Albumin Globulin Albumin/Globulin Ratio Vitamin B12 Folate Random Cortisol 9.81 Blood Type O Positive Antibody Screen NEGATIVE 12/13/23 12/13/23 12/14/23 18:51 23:39 03:54 WBC 15.98 H RBC 2.83 L Hgb 9.9 L Hct 31.8 L MCV 112.4 H MCH 35.0 H MCHC 31.1 L RDW Std Deviation 73.2 H RDW Coeff of Ge 17.7 H Plt Count 133 MPV 11.6 Immature Gran % (Auto) 2.6 Neut % (Auto) 89.9 Lymph % (Auto) 1.6 [place] % (Auto) 5.8 Eos % (Auto) 0.0 Baso % (Auto) 0.1 Neut # (Auto) 14.36 H Lymph # (Auto) 0.26 L [place] # (Auto) 0.92 H Eos # (Auto) 0.00 Baso # (Auto) 0.02 Immature Gran # (Auto) 0.42 H PT 47.6 H INR 4.8 H Sodium 138 137 Potassium 5.2 H 5.6 H Chloride 105 103 Carbon Dioxide 26 24 Anion Gap 7 10 BUN 59 H 64 H Creatinine 2.63 H 2.71 H Est Cr Clr Drug Dosing 14.0 14.1 Est GFR ( Amer) 18.2 17.6 Est GFR (Non-Af Amer) 15.7 15.2 BUN/Creatinine Ratio 22.4 H 23.6 H Glucose 165 H 139 H POC Glucose 159 H Estimat Average Glucose 154 Hemoglobin A1c 7.0 H Lactate 3.6 H* 1.5 Calcium 8.0 L 8.1 L Phosphorus 3.9 Magnesium 1.8 2.3 Iron 13 L TIBC 305 Unsaturated IBC 292 Transferrin % Sat 4 L Ferritin 63.7 Total Bilirubin 1.0 AST 27 ALT 11 Alkaline Phosphatase 74 Total Protein 6.7 Albumin 3.1 L Globulin 3.6 Albumin/Globulin Ratio 0.9 Vitamin B12 632 Folate 10.90 Random Cortisol Blood Type Antibody Screen 12/14/23 12/14/23 06:10 11:18 WBC RBC Hgb Hct MCV MCH MCHC RDW Std Deviation RDW Coeff of Ge Plt Count MPV Immature Gran % (Auto) Neut % (Auto) Lymph % (Auto) [place] % (Auto) Eos % (Auto) Baso % (Auto) Neut # (Auto) Lymph # (Auto) [place] # (Auto) Eos # (Auto) Baso # (Auto) Immature Gran # (Auto) PT INR Sodium Potassium Chloride Carbon Dioxide Anion Gap BUN Creatinine Est Cr Clr Drug Dosing Est GFR ( Amer) Est GFR (Non-Af Amer) BUN/Creatinine Ratio Glucose POC Glucose 132 H 133 H Estimat Average Glucose Hemoglobin A1c Lactate Calcium Phosphorus Magnesium Iron TIBC Unsaturated IBC Transferrin % Sat Ferritin Total Bilirubin AST ALT Alkaline Phosphatase Total Protein Albumin Globulin Albumin/Globulin Ratio Vitamin B12 Folate Random Cortisol Blood Type Antibody Screen Diagnostic Findings Chest x-ray from 12/12: Faint bibasilar airspace opacities which may represent atelectasis, pneumonia, and/or aspiration. Small bilateral pleural effusions. CT abdomen: Moderate degree of left hydronephrosis with a 6 mm obstructing calculus in the proximal left ureter. Medications Administered Home Medications Medication Instructions Recorded Confirmed Last Taken acidophilus 25 million 2 tab PO DAILY 12/12/23 12/12/23 Unknown cell-pectin, citrus 100 mg tablet buspirone 5 mg tablet 5 mg PO BID 12/12/23 12/12/23 Unknown clopidogrel 75 mg tablet 75 mg PO DAILY 12/12/23 12/12/23 Unknown clotrimazole-betamethasone 1 1 applic topical BID 12/12/23 12/12/23 Unknown %-0.05 % topical cream famotidine 20 mg tablet 20 mg PO DAILY 12/12/23 12/12/23 Unknown hydroxyurea 500 mg capsule 500 mg PO UD 12/12/23 12/12/23 Unknown isosorbide mononitrate 60 mg 60 mg PO DAILY 12/12/23 12/12/23 Unknown tablet,extended release 24 hr lactulose 10 gram/15 mL oral 15 ml PO TID 12/12/23 12/12/23 Unknown solution metoprolol succinate 100 mg 150 mg PO BID 12/12/23 12/12/23 Unknown tablet,extended release 24 hr mometasone 50 mcg/actuation nasal 1 spray intranasal DAILY 12/12/23 12/12/23 Unknown spray potassium chloride 20 mEq 20 meq PO BID 12/12/23 12/12/23 Unknown tablet,extended release(part/cryst) rosuvastatin 20 mg tablet 20 mg PO DAILY 12/12/23 12/12/23 Unknown torsemide 20 mg tablet 80 mg PO DAILY 12/12/23 12/12/23 Unknown warfarin 1 mg tablet 1 mg PO DAILY 12/12/23 12/12/23 Unknown Active Medications Generic Name Dose Route Start Last Admin Trade Name Freq PRN Reason Stop Dose Admin Acetaminophen 650 mg 12/12/23 06:54 12/13/23 20:51 Acetaminophen 325 Mg Tab PO 01/11/24 06:53 650 mg Q4H PRN Administration Pain or Fever Albuterol 3 ml 12/12/23 17:05 12/14/23 15:40 Albut/Ipratrop 3mg/0.5mg Neb 3 Ml Vial NEB 01/11/24 17:04 Not Given QIDR DYLAN Protocol Betamethasone/Clotrimazole 1 appln 12/12/23 09:00 12/14/23 08:12 Clotrimazole/Betamethasone Cr 15 Gm Tube EXT 01/11/24 08:59 1 appln BID DYLAN Administration Buspirone HCl 5 mg 12/12/23 09:00 12/14/23 08:11 Buspirone 5 Mg Tab PO 01/11/24 08:59 5 mg BID DYLAN Administration Clopidogrel Bisulfate 75 mg 12/12/23 09:00 12/14/23 08:12 Clopidogrel Bisulfate 75 Mg Tab PO 01/11/24 08:59 75 mg DAILY DYLAN Administration Famotidine 20 mg 12/12/23 09:00 12/14/23 08:10 Famotidine 20 Mg Tab PO 01/11/24 08:59 20 mg DAILY DYLAN Administration Fluticasone Propionate 1 sprays 12/12/23 09:00 12/14/23 08:11 Fluticasone Propionate Na Spr 16 Gm Btl NA 01/11/24 08:59 1 sprays DAILY DYLAN Administration Hydromorphone HCl 0.5 mg 12/12/23 06:54 12/12/23 15:57 Hydromorphone Inj 0.5 Mg/0.5 Ml Syr IV 12/26/23 06:53 0.5 mg Q4H PRN Administration Pain Hydroxyurea 500 mg 12/12/23 09:00 12/14/23 08:10 Hydroxyurea 500 Mg Cap PO 01/11/24 08:59 500 mg [id number] DYLAN Administration Hydrocortisone Sodium 1 mls @ 4 mls/min 12/14/23 02:00 12/14/23 10:03 Succinate 50 mg/ Syringe IV 01/13/24 01:59 4 mls/min Q8H DYLAN Administration Phenylephrine HCl 25 mg in 250 mls @ 24.75 mls/hr 12/13/23 20:31 12/14/23 15:30 Phenylephrine/Nss IV 01/12/24 20:30 0 mcg/kg/min .[id number] DYLAN 0 mls/hr Titration Protocol 0.5 MCG/KG/MIN Lactated Ringer's 1,000 mls @ 80 mls/hr 12/13/23 23:00 12/14/23 10:54 Lr IV 01/12/24 22:59 80 mls/hr .[id number] DYLAN Administration Ertapenem 500 mg/ Syringe 5 mls @ 2 mls/min 12/14/23 10:00 12/14/23 10:54 IV 12/24/23 09:59 2 mls/min Q24H DYLAN Administration Insulin Aspart 0 units 12/14/23 00:00 12/14/23 11:21 Insulin Aspart Per Unit Charge SC 01/13/24 00:00 Not Given Q6 DYLAN Isosorbide Mononitrate 60 mg 12/12/23 09:00 12/13/23 08:15 Isosorbide [place] Extended Rel 60 Mg Tabcr PO 01/11/24 08:59 60 mg DAILY DYLAN Administration Lactobacillus Acidophilus 2 cap 12/12/23 09:00 12/14/23 08:11 Advanced Probiotic 1250 Mg Capsule PO 01/11/24 08:59 2 cap DAILY DYLAN Administration Lactulose 10 gm 12/12/23 09:00 12/14/23 15:15 Lactulose Syrup 10 Gm/15 Ml Btl 960 Ml PO 01/11/24 08:59 Not Given TID DYLAN Menthol 1 prince 12/14/23 09:32 12/14/23 10:03 Cough Drop (Sugar Free) Prince 24 Prince/1 Box BUCCAL 01/13/24 09:31 1 prince Q2H PRN Administration Sore Throat Rosuvastatin Calcium 20 mg 12/12/23 09:00 12/14/23 08:10 Rosuvastatin Calcium 20 Mg Tab PO 01/11/24 08:59 20 mg DAILY DYLAN Administration Sodium Chloride 4 ml 12/12/23 17:05 12/14/23 07:56 Sodium Chlor 7% 4 Ml Neb NEB 01/11/24 17:04 4 ml BIDR DYLAN Administration Tamsulosin HCl 0.4 mg 12/12/23 09:00 12/14/23 08:12 Tamsulosin Hcl 0.4 Mg Cap PO 01/11/24 08:59 0.4 mg QAM DYLAN Administration Torsemide 80 mg 12/12/23 09:00 12/12/23 11:19 Torsemide 20 Mg Tab PO 01/11/24 08:59 80 mg DAILY DYLAN Administration Warfarin Sodium 1 mg 12/12/23 16:00 12/12/23 14:16 Warfarin Sod 1 Mg Tab PO 01/11/24 15:59 Not Given DAILY@1600 DYLAN (1) Sepsis Sepsis type: sepsis due to unspecified organism Sepsis acute organ dysfunction status: with acute organ dysfunction Severe sepsis acute organ dysfunction type: acute renal failure Acute renal failure type: unspecified Se dk sepsis shock status: unspecified Qualified Code(s): A41.9 - Sepsis, unspecified organism; R65.20 - Severe sepsis without septic shock; N17.9 - Acute kidney failure, unspecified
--- NOTE | 2023-12-14 18:15 | Communication Note ---
Date of Service: December 14, 2023 I called the lab in follow up of the BMP drawn at 1624. Due to a technical problem, no results yet. The sample is being reprocessed. Expect results in 15 minutes.
[2023-12-14 18:33] LABS: BUN Creatinine Ratio 22.8 (10-20); Calcium 8.4 mg/dl (8.6-10.3); Est GFR (African American) 15.9 ml/min; Est GFR (Non-African American) 13.7 ml/min; Potassium 5.8 mmol/L (3.5-5.1)
[2023-12-14] MEDS: METOPROLOL TARTRATE 25 MG TAB PO SCH ×2 (19:01→19:20)
--- NOTE | 2023-12-14 19:24 | Communication Note ---
Date of Service: December 14, 2023 Comprehensive Metabolic Panel 12/13/23 12/14/23 12/14/23 Range/Units 18:51 03:54 16:24 Sodium 138 137 136 (136-145) mmol/L Potassium 5.2 H 5.6 H 5.8 H (3.5-5.1) mmol/L Chloride 105 103 102 (98-107) mmol/L Carbon Dioxide 26 24 23 (21-32) mmol/L BUN 59 H 64 H 67 H (6-23) mg/dl Creatinine 2.63 H 2.71 H 2.94 H (0.6-1.2) mg/dl Glucose 165 H 139 H 132 H (70-99(Fasting)) mg/dl Calcium 8.0 L 8.1 L 8.4 L (8.6-10.3) mg/dl AST 27 (13-39) U/L ALT 11 (7-52) U/L Alkaline Phosphatase 74 (34-104) U/L Total Protein 6.7 (6.0-8.3) gm/dl Albumin 3.1 L (3.4-5.0) gm/dl Repeat chemistry panel with worsening potassium up to 5.8 millimole per liter, creatinine has trended up 2.94 mg/dl. at present she was off of phenylephrine, most recent blood pressure 116/86, ventricular rate in the 120s to 130s. Afebrile. Pulse oximetry 98% on3 liters by OxyMask. With regards to treatment of her volume status and hyperkalemia Plan: Stop IV fluids, patient has been on lactated Ringer's at 80 mL/hour, with noted small to moderate left pleural effusion visualized an echocardiogram today which was new compared to previous echo in August, proceed with furosemide 40 milligrams IV x1. 50 grams of IV dextrose along with 10 units of IV insulin. V[place]assa 16.8 gm x 1 now (received 8.4 gm at 12 noon today). Plan for repeat basic metabolic panel in the morning. Case discussed with Dr. Burns of nephrology . Updated pt's nurse by phone with regards to orders and had coordinated with Dr Hogan of critical care in advance. Chad Richardson DO
[2023-12-14] MEDS: FUROSEMIDE 40 MG/4 ML VIAL IV ONE (19:29)
[2023-12-14] MEDS: INSULIN HUMAN REGULAR PER UNIT 10 UNITS in SYRINGE 9.9 ML IV STA (19:38)
[2023-12-14] MEDS: DEXTROSE 50% 50 ML SYRINGE IV STA (19:38)
[2023-12-14 23:15] LABS: BUN Creatinine Ratio 22.9 (10-20); Calcium 8.1 mg/dl (8.6-10.3); Creatinine Clr Calc Pharmacy 12.1 ml/min; Est GFR (African American) 14.7 ml/min; Est GFR (Non-African American) 12.6 ml/min; Potassium 5.6 mmol/L (3.5-5.1)
[2023-12-15 06:22] LABS: Albumin Globulin Ratio 0.9 (0.9-2); Albumin Level 3.4 gm/dl (3.4-5.0); BUN Creatinine Ratio 22.6 (10-20); Bilirubin,Total 1.1 mg/dl (0.2-1.0); Calcium 8.4 mg/dl (8.6-10.3); Creatinine Clr Calc Pharmacy 11.8 ml/min; Est GFR (African American) 14.5 ml/min; Est GFR (Non-African American) 12.5 ml/min; Globulin 3.7 gm/dl (2.5-4.0); Magnesium 2.4 mg/dl (1.7-2.4); Phosphorus 5.1 mg/dl (2.5-4.9); Potassium 5.7 mmol/L (3.5-5.1); Total Protein 7.1 gm/dl (6.0-8.3)
[2023-12-15 06:26] LABS: Hematocrit (blood only) 34.8 % (37.0-47.0); Hemoglobin 11.1 g/dl (12.0-16.0); Mean Corpuscular Hgb Conc 31.9 g/dL (32.0-36.0); Mean Corpuscular Volume 109.8 fL (80.0-100.0); Mean Platelet Volume 11.4 fL (9.4-12.4); Nucleated RBC # (auto) 0.02 K/uL (0.00-0.12); Nucleated RBC % (auto) 0.1 %; Platelet Count 145 K/uL (130-400); RDW Coefficient of Variation 17.6 % (11.5-14.5); RDW Standard Deviation 71.2 fL (36.4-46.3); Red Blood Count 3.17 M/uL (4.20-5.40)
[2023-12-15 06:28] LABS: INR 5.3 (0.9-1.1); Prothrombin Time 52.6 Seconds (9.0-12.0)
[2023-12-15 06:50] LABS: Basophils # (auto) 0.01 K/uL (0.00-0.20); Basophils % (auto) 0.1 %; Immature Granulocytes # (auto) 0.22 K/uL (0.01-0.20); Immature Granulocytes % (auto) 1.4 %; Lymphocytes % (auto) 1.3 %; Monocytes # (auto) 0.64 K/uL (0.11-0.59); Monocytes % (auto) 4.2 %; Neutrophils # (auto) 14.23 K/uL (1.40-6.50); Polychromasia 1+
--- NOTE | 2023-12-15 07:21 | Nephrology Consultation ---
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 not an TEMPLATE MAKER candidate should the need arise > per previous OP discussions and given current code status; this was discussed in depth today with son and with patient > they are in agreement -daily bmp at least; bid until K better controlled -continue efforts to stabilize HR and treat complicated UTI >>slated to receive more beta buddy today which shoudl help -f/u pending cxs >>>stop or at least halve hydroxyurea which can cause infections and worsening renal function >> monitor plts Care coordinated w/ dr Hogan (2) Hyperkalemia: likely multifactorial w/ recent K supplements on board in setting of RADHA; supplements now held adn should start to come down -recommend VBG, lactate, ck, repeat UA, at least bid chem panel -redosed lasix this am >> may need another dose depending on pending chem panel; would also do course of lokelma tid if K > 5.4 History of Present Illness Reason for Consultation: acute renal failure, hyperkalemia Requesting Physician: Adrian Wilson NP Attending Physician: Mely Graff MD History of Present Illness 88 y/o F whom I'm asked to see for RADHA, hyperkalemia was admitted 12/12 in AM for UTI c/b obstructing L ureteral stone, RADHA w/ same day L ureteral stent and concern post procedure for septic shock from ESBL E coli UTI. 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 ID saw pt and agrees w/ plan for 14 day course ertapenem. Cardiology following d/t HF and AF w/ RVR. Presenting creatinine 2.1; steady uptrend to 3.2 today; K 5.3 on arrival and slow uptrend to 5.7 today. HR had been in 80-90s but since yesterday afternoon more in 110-120s. SBP has been labile throughout admission though relatively maintained in 100-110s since yesterday PM. She is 8.2L positive on the admission; as of today not oliguric and has had 6 BM as well. Had 40 mg IV lasix last evening and 10 units IV insulin same time as well as 2 doses of veltassa. had been on LR 80 mL hourly through 2300 yesterday; 20 mEq bid K supplements last given 12/13 AM. Off lizbet since yesterday. Pt seen and evaluated at about 0740; son at bedside Allergies Allergy/AdvReac Type Severity Reaction Status Date / Time amiodarone Allergy Severe EDEMA Verified 09/12/23 16:05 FACE/LIPS/TONGUE, RASH azithromycin [From Zithromax] Allergy Severe THROAT Verified 09/12/23 16:05 SWELLED, DENIED SHORT OF BREATH. adhesive Allergy Intermediate Rash Verified 09/12/23 16:05 etodolac Allergy Intermediate PRURITIS-IO Verified 09/12/23 16:05 DINE iodine Allergy Intermediate itching Verified 09/12/23 16:05 Penicillins Allergy Intermediate ITCHY RASH Verified 09/12/23 16:05 Sulfa (Sulfonamide Allergy Intermediate Rash Verified 09/12/23 16:05 Antibiotics) cephalexin [From Keflex] Allergy Unknown PER Verified 09/12/23 16:05 GMG--TRUE REACTION TO KEFLEX gabapentin AdvReac Intermediate sedation Verified 09/12/23 16:05 lisinopril AdvReac Intermediate Swelling Verified 09/12/23 16:05 of Lip/Tongue/Throat simvastatin AdvReac Unknown CAN'T Verified 09/12/23 16:05 REMEMBER Home Medications Medication Instructions Recorded Confirmed Type acidophilus 25 million 2 tab PO DAILY 12/12/23 12/12/23 History cell-pectin, citrus 100 mg tablet buspirone 5 mg tablet 5 mg PO BID 12/12/23 12/12/23 History clopidogrel 75 mg tablet 75 mg PO DAILY 12/12/23 12/12/23 History clotrimazole-betamethasone 1 1 applic topical BID 12/12/23 12/12/23 History %-0.05 % topical cream famotidine 20 mg tablet 20 mg PO DAILY 12/12/23 12/12/23 History hydroxyurea 500 mg capsule 500 mg PO UD 12/12/23 12/12/23 History isosorbide mononitrate 60 mg 60 mg PO DAILY 12/12/23 12/12/23 History tablet,extended release 24 hr lactulose 10 gram/15 mL oral 15 ml PO TID 12/12/23 12/12/23 History solution metoprolol succinate 100 mg 150 mg PO BID 12/12/23 12/12/23 History tablet,extended release 24 hr mometasone 50 mcg/actuation nasal 1 spray intranasal DAILY 12/12/23 12/12/23 History spray potassium chloride 20 mEq 20 meq PO BID 12/12/23 12/12/23 History tablet,extended release(part/cryst) rosuvastatin 20 mg tablet 20 mg PO DAILY 12/12/23 12/12/23 History torsemide 20 mg tablet 80 mg PO DAILY 12/12/23 12/12/23 History warfarin 1 mg tablet 1 mg PO DAILY 12/12/23 12/12/23 History Patient History Medical History (Updated 12/15/23 @ 07:37 by Karlee Burgess MD, PhD) CKD (chronic kidney disease) stage 4, GFR 15-29 ml/min Coronary artery disease with angina pectoris Chronic diastolic CHF (congestive heart failure) Cardiac pacemaker in situ Sinus node dysfunction ASCVD (arteriosclerotic cardiovascular disease) 2005 - CABG x 3, bioproesthetic aortic valve replacement 2007 - PCI and stenting to SVG to RCA occlusion Atrial fibrillation, persistent 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 Tinnitus of left ear Sensorineural hearing loss of both ears HLD (hyperlipidemia) HTN (hypertension) Essential thrombocythemia CKD (chronic kidney disease) stage 2, GFR 60-89 ml/min UTI due to extended-spectrum beta lactamase (ESBL) producing Escherichia coli Generalized weakness Anemia 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) Replacement of aortic valve (Unknown) "[facility] 2005 [facility] " Dermatitis Carotid artery occlusion (Unknown) Surgical History Status post transcatheter aortic valve replacement (TAVR) using bioprosthesis History of colonoscopy with polypectomy History of cystoscopy History of tubal ligation Total abdominal hysterectomy with bilateral salpingo-oophorectomy (Unknown) Stented coronary artery (Unknown) Placement of stent in coronary artery (Unknown) "RCA December 2006 " Implantation of aortic valve prosthesis or synthetic device (Unknown) Coronary artery bypass grafting (Unknown) "[facility] April 2006 VARGHESE to LAD SVG's to diagonal, obtuse marginal, RCA " Family History Father Prostate cancer Mother Diabetes Sister Coronary heart disease Social History Smoking Status: Never smoker Second Hand Exposure: No; Do You Dip or Chew Tobacco: No; Hx Alcohol Use: No Hx Substance Use: No Preferred Language: Polish Communication Ability: Impaired Visual Impairment: No Limitations Hearing Ability: Normal Sql Programmer Required: No Beliefs That Will Affect Care: None marital status: / Current Living Situation: Alone Feels Safe at Home: Yes Assistive Devices: Oxygen - Continuous and Walker Review of Systems 2 Review of Systems: All systems reviewed & are unremarkable except as noted in HPI & below Physical Exam 2 Constitutional: well developed and well nourished Eyes: EOM intact bilaterally ENMT: Ears: + hearing impairment; no external ear abnormality Nose: no external nose abnormality Mouth: + dry oral mucous membranes Neck: no nuchal rigidity Respiratory: normal respiratory effort Auscultation: + diminished lung sounds, + crackles (bibasilar), + rales and + wheezes Cardiovascular: Rate/Rhythm: + tachycardic (110-120s) Extremities: no edema Gastrointestinal (Abdomen): Inspection/Auscultation: normal bowel sounds P ercussion/Palpation: abdomen soft; abdomen nontender Musculoskeletal: Extremities: strength 5/5 throughout Skin: no rashes, warm and dry Neurologic: de leon, fluent but limited speech, +BLUE tremor Psychiatric: Orientation: oriented to person and oriented to place Results & Data Vital Signs (Past 12 Hours) Vital Signs Temp Pulse Pulse Resp BP Pulse Ox Pulse Ox 12/15/23 07:09 12/15/23 07:07 118 H 12/15/23 06:21 36.0 C L 130 H 16 98 12/15/23 06:21 114/70 12/15/23 05:00 119/89 12/15/23 05:00 36.0 C L 119 H 20 98 12/15/23 04:00 36.1 C L 126 H 15 97 12/15/23 04:00 130/87 12/15/23 03:01 36.2 C L 125 H 14 100 12/15/23 03:01 116/78 12/15/23 02:00 124/88 12/15/23 02:00 36.2 C L 121 H 14 98 12/15/23 01:00 114/80 12/15/23 01:00 36.1 C L 127 H 17 99 12/15/23 00:10 120 H 90/73 L 12/15/23 00:00 120 H 12/15/23 00:00 95/65 L 12/15/23 00:00 36.5 C 122 H 13 98 12/14/23 23:56 132 H 114/67 12/14/23 23:00 106/78 12/14/23 23:00 36.3 C L 130 H 28 H 97 12/14/23 22:07 128 H 112/86 12/14/23 22:00 106/73 12/14/23 22:00 36.1 C L 127 H 21 98 12/14/23 21:53 133 H 120/79 12/14/23 21:00 36.1 C L 122 H 15 98 12/14/23 21:00 115/90 12/14/23 20:30 112/76 12/14/23 20:30 36.4 C L 123 H 15 99 12/14/23 20:26 117 H 20 98 12/14/23 20:16 36.5 C 120 H 31 H 97 12/14/23 20:16 126/108 H 12/14/23 20:01 36.5 C 113 H 20 97 12/14/23 20:01 151/103 H 12/14/23 20:00 94 12/14/23 19:49 36.5 C 112 H 14 98 12/14/23 19:49 115/97 12/14/23 19:31 36.5 C 110 H 12 99 12/14/23 19:31 106/89 12/14/23 19:30 12/14/23 19:23 36.6 C 130 H 17 98 12/14/23 19:23 147/81 H O2 Del Method O2 Del Method O2 Flow Rate O2 Flow Rate 12/15/23 07:09 Nasal Cannula 3 12/15/23 07:07 12/15/23 06:21 12/15/23 06:21 12/15/23 05:00 12/15/23 05:00 12/15/23 04:00 12/15/23 04:00 12/15/23 03:01 12/15/23 03:01 12/15/23 02:00 12/15/23 02:00 12/15/23 01:00 12/15/23 01:00 12/15/23 00:10 12/15/23 00:00 12/15/23 00:00 12/15/23 00:00 12/14/23 23:56 12/14/23 23:00 12/14/23 23:00 12/14/23 22:07 12/14/23 22:00 12/14/23 22:00 12/14/23 21:53 12/14/23 21:00 12/14/23 21:00 12/14/23 20:30 12/14/23 20:30 12/14/23 20:26 Nasal Cannula 5 12/14/23 20:16 12/14/23 20:16 12/14/23 20:01 12/14/23 20:01 12/14/23 20:00 Nasal Cannula 4 12/14/23 19:49 12/14/23 19:49 12/14/23 19:31 12/14/23 19:31 12/14/23 19:30 Nasal Cannula 4 12/14/23 19:23 12/14/23 19:23 Laboratory Results 12/15/23 05:19 12/15/23 05:19 Diagnostic Findings cxr 12/12 Faint bibasilar airspace opacities which may represent atelectasis, pneumonia, and/or aspiration. Small bilateral pleural effusions.
[2023-12-15] MEDS: METOPROLOL TARTRATE 25 MG TAB PO SCH (08:18)
--- NOTE | 2023-12-15 09:04 | Critical Care Progress Note ---
Date of Service December 15, 2023 Assessment & Plan (1) Sepsis: Plan: Reason Critically Ill: 88-year-old female with sepsis PLAN: Resp: Chronic hypoxic respiratory failure on oxygen at baseline -Wean oxygen as tolerated, patient DNI in event of respiratory insufficiency CV: History of reduced EF heart failure -Discussed with cardiology appearing euvolemic to mildly hypervolemic Persistent atrial fibrillation -On systemic 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 with warfarin -On hold: Anticipate elevation given antibiotic use Pacemaker in place -Blood cultures pending Nonsustained ventricular tachycardia -Reviewed with cardiology Fluids/Renal: hyperkalemia: -Recheck BMP this afternoon Acute kidney injury on chronic kidney disease: Creatinine appears to have nadired -[place] for strict I's and O's: Urine output increasing Lactic acid acidosis: Resolved ID: Sepsis secondary to ESBL E. coli UTI -Converted antibiotics to ertapenem: Day 2 GI/Nutrition: Advance diet as tolerated Heme: Baseline anemia -Type and screen ordered DVT prophylaxis: Holding additional warfarin, mildly supra therapeutic INR at this time, SCDs Endocrine: ICU hyperglycemia protocol Relative adrenal insufficiency: 50 mg hydrocortisone every 8 hours: Discontinuing as blood pressure is stabilized off vasoactive Vascular access: Peripheral IVs Code Status: DNR/DNI in event of cardiac arrest Disposition: ICU given frequency of care/labs (2) Acute renal failure superimposed on chronic kidney disease: (3) Heart failure with improved ejection fraction (HFimpEF): (4) Left ureteral calculus: (5) AF (atrial fibrillation): (6) Cardiac pacemaker in situ: (7) Atrial fibrillation, persistent: (8) Current use of custodial 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: Admission and Anticipated Discharge Date Admission Date: December 12, 2023 Subjective No overnight events. Patient has been off vasoactive's greater than 12 hours Physical Exam Physical Exam: General: Arouses to voice. Uncomfortable appearing Skin: Warm, dry, Head: Atraumatic Ears, nose, mouth and throat: airway patent Cardiovascular: Normal peripheral perfusion Bedside monitor demonstrates atrial fibrillation with rapid ventricular response Respiratory: no respiratory distress Gastrointestinal: Non distended Musculoskeletal: No deformity Results & Data Results & Data Vital Signs (Past 12 Hours) Vital Signs Temp Pulse Pulse Pulse Resp BP BP 12/15/23 07:41 108 H 20 12/15/23 07:12 36.3 C L 117 H 16 109/68 12/15/23 07:09 12/15/23 07:07 118 H 12/15/23 06:21 36.0 C L 130 H 16 12/15/23 06:21 114/70 12/15/23 05:00 119/89 12/15/23 05:00 36.0 C L 119 H 20 12/15/23 04:00 36.1 C L 126 H 15 12/15/23 04:00 130/87 12/15/23 03:01 36.2 C L 125 H 14 12/15/23 03:01 116/78 12/15/23 02:00 124/88 12/15/23 02:00 36.2 C L 121 H 14 12/15/23 01:00 114/80 12/15/23 01:00 36.1 C L 127 H 17 12/15/23 00:10 120 H 90/73 L 12/15/23 00:00 120 H 12/15/23 00:00 95/65 L 12/15/23 00:00 36.5 C 122 H 13 12/14/23 23:56 132 H 114/67 12/14/23 23:00 106/78 12/14/23 23:00 36.3 C L 130 H 28 H 12/14/23 22:07 128 H 112/86 12/14/23 22:00 106/73 12/14/23 22:00 36.1 C L 127 H 21 12/14/23 21:53 133 H 120/79 12/14/23 21:00 36.1 C L 122 H 15 12/14/23 21:00 115/90 Pulse Ox O2 Del Method O2 Flow Rate 12/15/23 07:41 99 Nasal Cannula 3 12/15/23 07:12 99 Nasal Cannula 3 12/15/23 07:09 Nasal Cannula 3 12/15/23 07:07 12/15/23 06:21 98 12/15/23 06:21 12/15/23 05:00 12/15/23 05:00 98 12/15/23 04:00 97 12/15/23 04:00 12/15/23 03:01 100 12/15/23 03:01 12/15/23 02:00 12/15/23 02:00 98 12/15/23 01:00 12/15/23 01:00 99 12/15/23 00:10 12/15/23 00:00 12/15/23 00:00 12/15/23 00:00 98 12/14/23 23:56 12/14/23 23:00 12/14/23 23:00 97 12/14/23 22:07 12/14/23 22:00 12/14/23 22:00 98 12/14/23 21:53 12/14/23 21:00 98 12/14/23 21:00 Critical Care Results & Data Vital Signs (Past 12 Hours) Vital Signs Temp Pulse Pulse Pulse Resp BP BP 12/15/23 07:41 108 H 20 12/15/23 07:12 36.3 C L 117 H 16 109/68 12/15/23 07:09 12/15/23 07:07 118 H 12/15/23 06:21 36.0 C L 130 H 16 12/15/23 06:21 114/70 12/15/23 05:00 119/89 12/15/23 05:00 36.0 C L 119 H 20 12/15/23 04:00 36.1 C L 126 H 15 12/15/23 04:00 130/87 12/15/23 03:01 36.2 C L 125 H 14 12/15/23 03:01 116/78 12/15/23 02:00 124/88 12/15/23 02:00 36.2 C L 121 H 14 12/15/23 01:00 114/80 12/15/23 01:00 36.1 C L 127 H 17 12/15/23 00:10 120 H 90/73 L 12/15/23 00:00 120 H 12/15/23 00:00 95/65 L 12/15/23 00:00 36.5 C 122 H 13 12/14/23 23:56 132 H 114/67 12/14/23 23:00 106/78 12/14/23 23:00 36.3 C L 130 H 28 H 12/14/23 22:07 128 H 112/86 12/14/23 22:00 106/73 12/14/23 22:00 36.1 C L 127 H 21 12/14/23 21:53 133 H 120/79 12/14/23 21:00 36.1 C L 122 H 15 12/14/23 21:00 115/90 Pulse Ox O2 Del Method O2 Flow Rate 12/15/23 07:41 99 Nasal Cannula 3 12/15/23 07:12 99 Nasal Cannula 3 12/15/23 07:09 Nasal Cannula 3 12/15/23 07:07 12/15/23 06:21 98 12/15/23 06:21 12/15/23 05:00 12/15/23 05:00 98 12/15/23 04:00 97 12/15/23 04:00 12/15/23 03:01 100 12/15/23 03:01 12/15/23 02:00 12/15/23 02:00 98 12/15/23 01:00 12/15/23 01:00 99 12/15/23 00:10 12/15/23 00:00 12/15/23 00:00 12/15/23 00:00 98 12/14/23 23:56 12/14/23 23:00 12/14/23 23:00 97 12/14/23 22:07 12/14/23 22:00 12/14/23 22:00 98 12/14/23 21:53 12/14/23 21:00 98 12/14/23 21:00 Lab & Micro Results (Past 24 Hours) RBC 3.54 M/uL (4.20-5.40) L 12/16/23 WBC 12.33 K/ul (4.8-10.8) H 12/16/23 Hgb 12.1 g/dl (12.0-16.0) 12/16/23 Hct 40.1 % (37.0-47.0) 12/16/23 MCV 113.3 fL (80.0-100.0) H 12/16/23 MCH 34.2 pg (25.0-34.0) H 12/16/23 MCHC 30.2 g/dL (32.0-36.0) L 12/16/23 RDW Standard Deviation 74.8 fL (36.4-46.3) H 12/16/23 RDW Coefficient of Variation 17.7 % (11.5-14.5) H 12/16/23 Plt Count 177 K/uL (130-400) 12/16/23 MPV 11.2 fL (9.4-12.4) 12/16/23 Nucleated Red Blood Cells % (auto) 0.9 % 12/16 Nucleated RBC Absolute Count (auto) 0.11 K/uL (0.00-0.12) 0 12/16/23 Neutrophils (%) (Auto) 88.5 % 12/16/23 Lymphocytes (%) (Auto) 3.1 % 12/16/23 Monocytes # (Auto) 0.85 K/uL (0.11-0.59) H 12/16/23 Eosinophils # (Auto) 0.02 K/uL (0.00-0.50) 12/16/23 Immature Granulocyte % (Auto) 1.1 % 12/16/23 Neutrophils # (Auto) 10.92 K/uL (1.40-6.50) H 12/16/23 Lymphocytes # (Auto) 0.38 K/uL (1.20-3.40) L 12/16/23 Monocytes # (Auto) 0.85 K/uL (0.11-0.59) H 12/16/23 Eosinophils # (Auto) 0.02 K/uL (0.00-0.50) 12/16/23 Basophils # (Auto) 0.03 K/uL (0.00-0.20) 12/16/23 Immature Granulocyte # (Auto) 0.13 K/uL (0.01-0.20) 4 Polychromasia 1+ 12/16/23 Macrocytosis Present 12/16/23 Ovalocytes 1+ 12/16/23 Na 138 mmol/L (136-145) 12/16/23 K 5.6 mmol/L (3.5-5.1) H 12/16/23 Cl 103 mmol/L (98-107) 12/16/23 CO2 24 mmol/L (21-32) 12/16/23 Anion Gap 11 (3-11) 12/16/23 BUN 77 mg/dl (6-23) H 12/16/23 Creatinine 3.74 mg/dl (0.6-1.2) H 12/16/23 Estimated GFR ( Amer) 11.9 ml/min 12/16/23 Estimated GFR (Non-Af Amer) 10.3 ml/min 12/16/23 BUN/Creatinine Ratio 20.6 (10-20) H 12/16/23 Glu 99 mg/dl (70-99(Fasting)) 12/16/23 Ca 8.7 mg/dl (8.6-10.3) 12/16/23 Phosphorus Level 6.2 mg/dl (2.5-4.9) H 12/16/23 Total Bilirubin 1.0 mg/dl (0.2-1.0) 12/16/23 AST 47 U/L (13-39) H 12/16/23 ALT 14 U/L (7-52) 12/16/23 Alkaline Phosphatase 85 U/L (34-104) 12/16/23 TP 7.4 gm/dl (6.0-8.3) 12/16/23 Albumin 3.4 gm/dl (3.4-5.0) 12/16/23 Globulin 4.0 gm/dl (2.5-4.0) 12/16/23 Albumin/Globulin Ratio 0.9 (0.9-2) 12/16/23 Mg 2.6 mg/dl (1.7-2.4) H 12/16/23 04:04 Calcium Level 8.7 mg/dl (8.6-10.3) 12/16/23 04:04 Prothromb Time International Ratio 8.6 (0.9-1.1) H* 12/16/23 0 4:04 Microbiology 12/13/23 09:29 Aerobic Blood Culture - Preliminary Blood No growth in Aerobic bottle after 24 hours. Anaerobic Blood Culture - Final 12/13/23 09:15 Aerobic Blood Culture - Preliminary Blood No growth in Aerobic bottle after 24 hours. Anaerobic Blood Culture - Preliminary No growth in Anaerobic bottle after 24 hours. 12/12/23 04:29 Urine Culture - Final Urine,Clean Catch Escherichia coli ESBL I & O Totals 24 Hours 12/14/23 12/15/23 12/16/23 06:59 06:59 06:59 Intake Total 4030.952 / 4030.952 2145.167 / 2145.167 Output Total 433 / 433 726 / 726 Balance 3597.952 / 3597.952 1419.167 / 1419.167 Cumulative 12/12/23 01:02 thru 12/15/23 06:00 Intake Total 9484.786 Output Total 1259 Balance 8225.786 RT Ventilator Mngmt (Last Documented) Ventilator Ordered Settings Respiratory Rate 20 12/15/23 07:41 Fraction of Inspired Oxygen 2 12/13/23 17:50 Ventilator - PT Measurements Respiratory Rate 20 Coding Level of Care Code 48854 CRITICAL CARE 1ST 30-74M Diagnoses Sepsis with acute renal failure, due to unspecified organism, unspecified acute renal failure type, unspecified whether septic shock present A41.9; R65.20; N17.9 Acute renal failure type: unspecified Sepsis acute organ dysfunction status: with acute organ dysfunction Sepsis type: sepsis due to unspecified organism Severe sepsis acute organ dysfunction type: acute renal failure Severe sepsis shock status: unspecified Acute renal failure superimposed on chronic kidney disease N17.9; N18.9 Heart failure with improved ejection fraction (HFimpEF) I50.32 Left ureteral calculus N20.1 AF (atrial fibrillation) I48.91 Atrial fibrillation type: unspecified Cardiac pacemaker in situ Z95.0 Atrial fibrillation, persistent I48.19 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
--- NOTE | 2023-12-15 09:29 | Cardiology Progress Note ---
Date of Service December 15, 2023 Assessment & Plan (1) Left ureteral calculus: (2) Sepsis: (3) Acute renal failure superimposed on chronic kidney disease: (4) Chronic heart failure with reduced ejection fraction and diastolic dysfunction: (5) Chronic hypoxic respiratory failure: (6) Sinus node dysfunction: (7) Cardiac pacemaker in situ: (8) CAD (coronary artery disease): (9) Replacement of aortic valve: (10) Permanent atrial fibrillation: Plan IMPRESSION: 88-year-old female with complex cardiac history including ischemic heart disease, previous CABG, bioprosthetic AVR, mild left ventricular systolic dysfunction (LVEF 40-45% with moderate to severe MR, severe TR 12/14/23) and chronic atrial fibrillation Presents with urosepsis secondary to obstruction of the left ureter secondary to calculus. Underwent cystoscopy with left ureteral stent placement 12/12/2023. Now has tachycardia and hypotension in the setting of lactic acidosis. Extended spectrum beta-lactamase E. coli on urinalysis. H/o severe allergy to amiodarone, facial , lip swelling in 2010 PLAN: Urosepsis/left ureter obstruction secondary to calculus Baseline stage IV CKD with RADHA and hyperkalemia Chronic systolic and diastolic CHF: CAD s/p CABG Hx of Bioprosthetic AVR Status post AVR and CABG in April 2006 receiving a #19 Mary-Good bioprosthesis in the aortic valve position, VARGHESE graft to the LAD, SVG with sequential grafting from LAD diagonal to the circumflex obtuse marginal, and a SVG to the RCA Permanent Atrial fibrillation: SSS s/p Dual chamber Medtronic PPM: Permanent atrial fibrillation-- normally maintained on metoprolol succinate 150 mg BID as an outpatient. SSS Status post April 08, 2014 dual chamber pacemaker implantation. Status post August 02, [address] Chau at [facility] - Medtronic Terri XT SR MRI SureScan [id number], Serial # [id number] * 12/13/23, transferred to ICU for worsening sepsis with tachycardia and hypotension systolic BP in the 90s. IV fluids started at 80s ml/hr * 12/14/23 echo reveals small to moderate left lateral pleural effusion, new compared to 08/2023. In evening IV fluids stopped. Furosemide 40 mg IV x 1 started * 12/15/22, off of Phenylephrine BP 110/86 with MAP of 94 mm Hg , and tolerating metoprolol tartrate 25 mg PO every 8 hours (succinate previously held due to hypotension), creatinine 3.18, potassium 5.7 was 5.8 yesterday, received furosemide and Veltassa x 2 doses on 12/14/22. * coumadin on hold for INR of 5.3 * Nephrology input noted and appreciated, another dose of furosemide ordered * Case discussed with Dr Hogan of critical care medicine for the purpose of coordination of care * Dr Donavon marmolejo on 12/16/23. This chart was completed in part utilizing Speech Voice Recognition Software. Grammatical errors, random word insertions, pronoun errors, and incomplete sentences are an occasional consequence of this system due to software limitations, ambient noise, and hardware issues. Any formal questions or concerns about the content, text, or information contained within the body of this dictation should be directly addressed to the provider for clarification. Admission and Anticipated Discharge Date Admission Date: December 12, 2023 Subjective Mrs Cruz is seen in cardiology follow up of acute on chronic heart failure with reduced ejection fraction, AF with RVR in the setting of urosepsis. Son, Jonathan , at bedside. Patient without subjective complaint, however , some degree of cognitive impairment noted. Telemetry reveals ongoing AF, RVR with ventricular rate in the range of 116-128 bpm , with occasional brief runs of nonsustained ventricular tachycardia. Physical Exam Constitutional: + ill appearing; no acute distress Eyes: PERRL, conjunctivae normal, anicteric sclerae Neck: normal visual inspection and trachea midline Respiratory: normal respiratory effort (shallow breaths ), + cough and able to speak in complete sentences; no respiratory distress and not tachypneic Auscultation: + diminished lung sounds (decreased Breath sounds bilaterally at the bases ) Cardiovascular: Rate/Rhythm: + tachycardic and + irregularly irregular Heart Sounds: + murmur (1/6 SM ) Vessels: no JVD Extremities: + edema (trace BLLE edema R>L) Chest (Breasts): Chest: + pacemaker Gastrointestinal (Abdomen): normal bowel sounds, soft, nontender, no hepatosplenomegaly Skin: no rashes, warm and dry Neurologic: PERRL, EOMI, accommodation nl, no face palsy, no dysarthria Psychiatric: Orientation: alert, oriented to person, oriented to place and cooperative Genitourinary: [place] catheter in place draining clear yellow urine Results & Data Vital Signs (Past 12 Hours) Vital Signs Temp Pulse Pulse Pulse Resp BP BP 12/15/23 07:41 108 H 20 12/15/23 07:12 36.3 C L 117 H 16 109/68 12/15/23 07:09 12/15/23 07:07 118 H 12/15/23 06:21 36.0 C L 130 H 16 12/15/23 06:21 114/70 12/15/23 05:00 119/89 12/15/23 05:00 36.0 C L 119 H 20 12/15/23 04:00 36.1 C L 126 H 15 12/15/23 04:00 130/87 12/15/23 03:01 36.2 C L 125 H 14 12/15/23 03:01 116/78 12/15/23 02:00 124/88 12/15/23 02:00 36.2 C L 121 H 14 12/15/23 01:00 114/80 12/15/23 01:00 36.1 C L 127 H 17 12/15/23 00:10 120 H 90/73 L 12/15/23 00:00 120 H 12/15/23 00:00 95/65 L 12/15/23 00:00 36.5 C 122 H 13 12/14/23 23:56 132 H 114/67 12/14/23 23:00 106/78 12/14/23 23:00 36.3 C L 130 H 28 H 12/14/23 22:07 128 H 112/86 12/14/23 22:00 106/73 12/14/23 22:00 36.1 C L 127 H 21 12/14/23 21:53 133 H 120/79 Pulse Ox O2 Del Method O2 Flow Rate 12/15/23 07:41 99 Nasal Cannula 3 12/15/23 07:12 99 Nasal Cannula 3 12/15/23 07:09 Nasal Cannula 3 12/15/23 07:07 12/15/23 06:21 98 12/15/23 06:21 12/15/23 05:00 12/15/23 05:00 98 12/15/23 04:00 97 12/15/23 04:00 12/15/23 03:01 100 12/15/23 03:01 12/15/23 02:00 12/15/23 02:00 98 12/15/23 01:00 12/15/23 01:00 99 12/15/23 00:10 12/15/23 00:00 12/15/23 00:00 12/15/23 00:00 98 12/14/23 23:56 12/14/23 23:00 12/14/23 23:00 97 12/14/23 22:07 12/14/23 22:00 12/14/23 22:00 98 12/14/23 21:53 Laboratory Results Coagulation 12/15/23 Range/Units 05:19 PT 52.6 H (9.0-12.0) Seconds INR: 5.3 CBC 12/15/23 Range/Units 05:19 WBC 15.30 H (4.8-10.8) K/ul RBC 3.17 L (4.20-5.40) M/uL Hgb 11.1 L (12.0-16.0) g/dl Hct 34.8 L (37.0-47.0) % Plt Count 145 (130-400) K/uL Neut # (Auto) 14.23 H (1.40-6.50) K/uL Lymph # (Auto) 0.20 L (1.20-3.40) K/uL Lyman # (Auto) 0.64 H (0.11-0.59) K/uL Eos # (Auto) 0.00 (0.00-0.50) K/uL Baso # (Auto) 0.01 (0.00-0.20) K/uL Comprehensive Metabolic Panel 12/14/23 12/14/23 12/15/23 Range/Units 16:24 22:43 05:19 Sodium 136 136 136 (136-145) mmol/L Potassium 5.8 H 5.6 H 5.7 H (3.5-5.1) mmol/L Chloride 102 102 102 (98-107) mmol/L Carbon Dioxide 23 25 23 (21-32) mmol/L BUN 67 H 72 H 72 H (6-23) mg/dl Creatinine 2.94 H 3.15 H 3.18 H (0.6-1.2) mg/dl Glucose 132 H 126 H 135 H (70-99(Fasting)) mg/dl Calcium 8.4 L 8.1 L 8.4 L (8.6-10.3) mg/dl AST 35 (13-39) U/L ALT 11 (7-52) U/L Alkaline Phosphatase 75 (34-104) U/L Total Protein 7.1 (6.0-8.3) gm/dl Albumin 3.4 (3.4-5.0) gm/dl (2) Sepsis Sepsis type: sepsis due to unspecified organism Sepsis acute organ dysfunction status: with acute organ dysfunction Severe sepsis acute organ dysfunction type: acute renal failure Acute renal failure type: unspecified Severe sepsis shock status: unspecified Qualified Code(s): A41.9 - Sepsis, unspecified organism; R65.20 - Severe sepsis without septic shock; N17.9 - Acute kidney failure, unspecified (8) CAD (coronary artery disease) Coronary Disease-Associated Artery/Lesion type: [place] artery [place] vs. transplanted heart: [place] heart Associated angina: without angina Qualified Code(s): I25.10 - Atherosclerotic heart disease of [place] coronary artery without angina pectoris
[2023-12-15] MEDS: FUROSEMIDE 40 MG/4 ML VIAL IV ONE ×2 (09:35→20:31)
[2023-12-15] MEDS: INSULIN ASPART PER UNIT CHARGE SC SCH (12:01)
--- NOTE | 2023-12-15 12:02 | Urology Progress Note ---
Date of Service December 15, 2023 Assessment & Plan (1) Left ureteral calculus: (2) RADHA (acute kidney injury): (3) Complicated UTI (urinary tract infection): Plan 88yo F with an obstructing left ureteral stone and UTI. POD #3 s/p cystoscopy and left ureteral stent placement Transferred to ICU 2/ d/t tachycardia and hypotension in the setting of lactic acidosis. Afebrile, normotensive (off vasopressors). Labs reviewed - WBC 15.30, Hemoglobin 11.1, Creatinine 2.71 -3.18 today. Nephrology following. Urine culture E Coli ESBL, blood cultures prelim no growth x 48 hours. Currently on Ertapenem. [place] catheter in place, draining yellow urine. Continue supportive care and monitoring. Continue antibiotics. Maintain [place] catheter. No plan for further urologic intervention. Will arrange outpatient follow-up with our service for definitive stone management after the infection has been treated. Urology will follow peripherally. Please call with any further questions or concerns. Admission and Anticipated Discharge Date Admission Date: December 12, 2023 Subjective Pt examined at bedside this AM in ICU. Sleeping at time of visit. No acute distress. Sons at bedside. [place] draining yellow urine Review of Systems Constitutional: as per Subjective / HPI Genitourinary: as per Subjective / HPI Physical Exam Constitutional: no acute distress Respiratory: no respiratory distress and no labored breathing Genitourinary: [place] in place Results & Data Vital Signs (Past 12 Hours) Vital Signs Temp Pulse Pulse Pulse Resp BP BP 12/15/23 11:32 108 H 14 12/15/23 07:41 108 H 20 12/15/23 07:12 36.3 C L 117 H 16 109/68 12/15/23 07:09 12/15/23 07:07 118 H 12/15/23 06:21 36.0 C L 130 H 16 12/15/23 06:21 114/70 12/15/23 05:00 119/89 12/15/23 05:00 36.0 C L 119 H 20 12/15/23 04:00 36.1 C L 126 H 15 12/15/23 04:00 130/87 12/15/23 03:01 36.2 C L 125 H 14 12/15/23 03:01 116/78 12/15/23 02:00 124/88 12/15/23 02:00 36.2 C L 121 H 14 12/15/23 01:00 114/80 12/15/23 01:00 36.1 C L 127 H 17 12/15/23 00:10 120 H 90/73 L 12/15/23 00:00 120 H 12/15/23 00:00 95/65 L 12/15/23 00:00 36.5 C 122 H 13 12/14/23 23:56 132 H 114/67 Pulse Ox O2 Del Method O2 Flow Rate 12/15/23 11:32 98 Nasal Cannula 3 12/15/23 07:41 99 Nasal Cannula 3 12/15/23 07:12 99 Nasal Cannula 3 12/15/23 07:09 Nasal Cannula 3 12/15/23 07:07 12/15/23 06:21 98 12/15/23 06:21 12/15/23 05:00 12/15/23 05:00 98 12/15/23 04:00 97 12/15/23 04:00 12/15/23 03:01 100 12/15/23 03:01 12/15/23 02:00 12/15/23 02:00 98 12/15/23 01:00 12/15/23 01:00 99 12/15/23 00:10 12/15/23 00:00 12/15/23 00:00 12/15/23 00:00 98 12/14/23 23:56 PG Care Time/CCT Total # of Minutes Spent Total Time Spent with Patient: Total time spent is greater than 50% in coordination of care (as documented) at patient's floor/unit and/or counseling patient: Coding Level of Care Code 05330 SUB INP/OBS CARE 2/35MIN Diagnoses Left ureteral calculus N20.1 RADHA (acute kidney injury) N17.9 Complicated UTI (urinary tract infection) N39.0
[2023-12-15] MEDS ORDERED: INSULIN ASPART PER UNIT CHARGE SC SCH (16:30)
[2023-12-15 16:58] LABS: BUN Creatinine Ratio 21.8 (10-20); Calcium 8.6 mg/dl (8.6-10.3); Creatinine Clr Calc Pharmacy 11.2 ml/min; Est GFR (African American) 13.6 ml/min; Est GFR (Non-African American) 11.7 ml/min; Potassium 5.7 mmol/L (3.5-5.1)
[2023-12-15] MEDS: SODIUM ZIRCONIUM CYCLOSILICATE 10 GM PACKET PO SCH (20:31)
--- NOTE | 2023-12-15 20:58 | Hospitalist Progress Note ---
Date of Service December 15, 2023 Assessment & Plan (1) Left ureteral calculus: Plan Pt is an 88yo female with past medical history significant for chronic hypoxemic respiratory failure on 3 L oxygen, hyperlipidemia, obstructive sleep apnea on oxygen, history of CAD s/p stent, sinus node dysfunction s/p pacemaker, heart failure with reduced ejection fraction, asymptomatic bilateral carotid artery stenosis, hypertension, chronic atrial fibrillation history of RADHA, CKD stage I II, restless leg syndrome, bilateral leg edema, essential thrombocythemia, s/p aortic valve replacement, lumbar spinal stenosis presenting with severe back and left flank pain that started the evening prior to arrival. Left ureteral calculus Renal colic Pt presented with severe back and left flank pain On admission afebrile, tachycardic and WBC elevated >10K UA suggestive of infection, urine Cx was obtained, and is currently growing gram negative rods CT ab/d pelvis concerning for moderate degree left hydronephrosis with 6 mm obstructing calculus in the proximal left ureter Was placed on cautious IV fluid hydration given CHF Hx Was initially started on IV Azactam, then switched to Ertapenem by previous provider based on prior Cx from 08/2023 that grew ESBL sensitive to Ertapenem IV Dilaudid as needed, IV antiemetics as needed Urology was consulted, appreciate recs: -s/p L ureteral stent placement on 12/12/23 -recommending no further procedures while hospitalized Severe sepsis Septic shock On 12/13/23 pt hypotensive with reports of receiving fluid boluses overnight for the same Pt reporting shaking and chills WBC increased to >13K, tachycardic, hypothermic with urinary infectious source, meeting criteria for sepsis. Lactate elevated at 4.6 and blood Cx x2 ordered with NGTD Urine Cx currently growing ESBL E coli once more. Transferred to the ICU on 12/13/21 for pressor support Ertapenem was switched to Zosyn to which last Cx in Aug 2023 was sensitive (noted itchy rash allergy, NOT anaphylaxis), switched back based on s ensitivities to Ertapenem in the ICU on 12/14 Continue Ertapenem ID consulted- appreciate further recs -continue Ertapenem for 14 days History of chronic systolic CHF EF of 40 to 45% on echo done in August 2023 Repeat echo on 12/14 noting similar findings except a small to moderate L pleural effusion Pt also with bilateral lower extremity edema On home torsemide 80mg with scheduled potassium Cardiology consulted- appreciate recs Noted baseline of 3L of oxygen use, monitor for fluid overload/increase in oxygen requirement History of chronic atrial fibrillation On metoprolol succinate 150mg bid for rate control, that dose has been on hold, currently being reintroduced at lower rate. Also on Coumadin for 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, monitor INR -INR currently elevated above goal from 12/13, holding warfarin at this time -consider Vit K for reversal HR 120-130s, cardiology consulted as above, appreciate recs S/p bioprosthetic aortic valve replacement On coumadin, currently on hold as above INR goal 2-3 INR currently elevated above goal from 12/13, holding warfarin at this time -consider Vit K for reversal Hypertension On metoprolol succinate, Imdur and torsemide at home. 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 Presented with creatinine of ~ 2, appears to be baseline Currently elevated above baseline Nephrology currently on board- appreciate recs Avoid nephrotoxic meds/contrast as much as possible Continue to monitor Acute on Chronic Anemia Hgb 11.9 on admission Iron level decreased, consider Venofer replacement Folate, b12 wnl Replete as needed Hyperkalemia K of 5.3 noted, currently trending up Holding home potassium supplements s/p Veltassa doses and lokelma, also received insulin Monitor with AM labs Appreciate Nephrology recs Hyperglycemia DMII Glucose levels have been elevated, as high as 200 hgb1c of 7.0 noted this admission, new DMII diagnosis ISS while hospitalized, continue to monitor levels Consider senior communications engineer consult for discharge History of CAD s/p stent On Plavix, statin, metoprolol succinate and Imdur Holding Imdur metoprolol being re-introduced Obstructive sleep apnea chronic hypoxic respiratory failure On home oxygen 3L 24/7 Continue to monitor for increased oxygen need Sinus node dysfunction status post pacemaker placement Hyperlipidemia On statin, continue GERD Continue Pepcid Thrombocythemia On hydroxyurea Follows with heme-onc CODE STATUS: DNR/DNI DVT prophylaxis: On Coumadin, currently on hold due to INR Diet: HH/DMII diet Dispo: PT/OT once more stable Admission and Anticipated Discharge Date Admission Date: December 12, 2023 Subjective Pt was seen laying in bed. No one at bedside at the time. Case discussed with nursing outside of the room. Pt arousable, states that she feels the same. Review of Systems Review of Systems: All systems reviewed & are unremarkable except as noted in Subjective Physical Exam Physical Exam: General: Alert, oriented. No acute distress Skin: No noted rashes or bruises Psych: Appropriate mood and affect Neuro: some hearing loss noted HEENT: NC/AT Chest: Nontender to palpation. CV: Irregular Resp: Breath sounds clear bilaterally, no increased effort of breathing Abdomen:Soft, mildly tender diffusely Extremities: ++ edema in lower extremities bilaterally. Results & Data Results & Data Vital Signs (Past 12 Hours) Vital Signs Temp Pulse Pulse Pulse Resp BP BP 12/15/23 11:32 108 H 14 12/15/23 11:30 113/89 12/15/23 11:30 36.3 C L 113 H 10 L 12/15/23 10:00 36.3 C L 121 H 18 12/15/23 10:00 124/92 12/15/23 09:30 36.3 C L 112 H 21 12/15/23 09:30 112/84 12/15/23 09:00 36.3 C L 111 H 20 12/15/23 09:00 90/72 L 12/15/23 08:31 36.4 C L 124 H 19 12/15/23 08:31 110/86 12/15/23 08:01 122/99 12/15/23 08:01 36.3 C L 115 H 14 12/15/23 08:00 36.3 C L 109 H 26 H 12/15/23 07:41 108 H 20 12/15/23 07:30 138/107 H 12/15/23 07:30 36.3 C L 114 H 14 12/15/23 07:12 36.3 C L 117 H 16 109/68 12/15/23 07:09 12/15/23 07:07 118 H 12/15/23 07:01 109/68 12/15/23 07:01 36.1 C L 116 H 15 12/15/23 06:21 36.0 C L 130 H 16 12/15/23 06:21 114/70 12/15/23 05:00 119/89 12/15/23 05:00 36.0 C L 119 H 20 12/15/23 04:00 36.1 C L 126 H 15 12/15/23 04:00 130/87 12/15/23 03:01 36.2 C L 125 H 14 12/15/23 03:01 116/78 Pulse Ox O2 Del Method O2 Flow Rate 12/15/23 11:32 98 Nasal Cannula 3 12/15/23 11:30 12/15/23 11:30 97 Nasal Cannula 3 12/15/23 10:00 96 12/15/23 10:00 12/15/23 09:30 98 12/15/23 09:30 12/15/23 09:00 98 12/15/23 09:00 12/15/23 08:31 94 Nasal Cannula 3 12/15/23 08:31 12/15/23 08:01 12/15/23 08:01 12/15/23 08:00 12/15/23 07:41 99 Nasal Cannula 3 12/15/23 07:30 12/15/23 07:30 97 12/15/23 07:12 99 Nasal Cannula 3 12/15/23 07:09 Nasal Cannula 3 12/15/23 07:07 12/15/23 07:01 12/15/23 07:01 83 L 12/15/23 06:21 98 12/15/23 06:21 12/15/23 05:00 12/15/23 05:00 98 12/15/23 04:00 97 12/15/23 04:00 12/15/23 03:01 100 12/15/23 03:01
[2023-12-16] MEDS: SODIUM ZIRCONIUM CYCLOSILICATE 10 GM PACKET PO ONE (00:01)
[2023-12-16 05:05] LABS: Basophils # (auto) 0.03 K/uL (0.00-0.20); Basophils % (auto) 0.2 %; Eosinophils # (auto) 0.02 K/uL (0.00-0.50); Eosinophils % (auto) 0.2 %; Hematocrit (blood only) 40.1 % (37.0-47.0); Hemoglobin 12.1 g/dl (12.0-16.0); Immature Granulocytes # (auto) 0.13 K/uL (0.01-0.20); Immature Granulocytes % (auto) 1.1 %; Lymphocytes # (auto) 0.38 K/uL (1.20-3.40); Lymphocytes % (auto) 3.1 %; Mean Corpuscular Hemoglobin 34.2 pg (25.0-34.0); Mean Corpuscular Hgb Conc 30.2 g/dL (32.0-36.0); Mean Corpuscular Volume 113.3 fL (80.0-100.0); Mean Platelet Volume 11.2 fL (9.4-12.4); Monocytes # (auto) 0.85 K/uL (0.11-0.59); Monocytes % (auto) 6.9 %; Neutrophils # (auto) 10.92 K/uL (1.40-6.50); Neutrophils % (auto) 88.5 %; Nucleated RBC # (auto) 0.11 K/uL (0.00-0.12); Nucleated RBC % (auto) 0.9 %; Platelet Count 177 K/uL (130-400); RDW Coefficient of Variation 17.7 % (11.5-14.5); RDW Standard Deviation 74.8 fL (36.4-46.3); Red Blood Count 3.54 M/uL (4.20-5.40); White Blood Count 12.33 K/ul (4.8-10.8)
[2023-12-16 05:21] LABS: Albumin Globulin Ratio 0.9 (0.9-2); Albumin Level 3.4 gm/dl (3.4-5.0); BUN Creatinine Ratio 20.6 (10-20); Calcium 8.7 mg/dl (8.6-10.3); Est GFR (African American) 11.9 ml/min; Est GFR (Non-African American) 10.3 ml/min; Magnesium 2.6 mg/dl (1.7-2.4); Phosphorus 6.2 mg/dl (2.5-4.9); Potassium 5.6 mmol/L (3.5-5.1); Total Protein 7.4 gm/dl (6.0-8.3)
[2023-12-16 05:34] LABS: Macrocytosis Present; Ovalocytes 1+; Polychromasia 1+
[2023-12-16 05:40] LABS: Prothrombin Time 82.3 Seconds (9.0-12.0)
[2023-12-16 06:02] LABS: INR 8.6 (0.9-1.1)
[2023-12-16] MEDS ORDERED: ALBUT/IPRATROP 3MG/0.5MG NEB 3 ML VIAL NEB PRN (08:24)
[2023-12-16] MEDS ORDERED: SODIUM CHLOR 7% 4 ML NEB NEB PRN (08:30)
--- NOTE | 2023-12-16 08:38 | Critical Care Progress Note ---
Date of Service December 16, 2023 Assessment & Plan (1) Sepsis: Plan: Reason Critically Ill: 88-year-old female with sepsis PLAN: Resp: Chronic hypoxic respiratory failure on oxygen at baseline: Largely resolved -Wean oxygen as tolerated, patient DNI in event of respiratory insufficiency CV: History of reduced EF heart failure -Discussed with cardiology appearing euvolemic to mildly hypervolemic Persistent atrial fibrillation -On systemic 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 with warfarin -On hold: Anticipate elevation given antibiotic use A-fib with rapid ventricular response -Increase metoprolol from 25 every 8 to 50 twice daily -Consider restarting home metoprolol tomorrow: 150 mg succinate twice daily Pacemaker in place -Blood cultures: No growth today Nonsustained ventricular tachycardia -Reviewed with cardiology Fluids/Renal: hyperkalemia: -Recheck BMP this afternoon Acute kidney injury on chronic kidney disease: Nephrology following -[place] for strict I's and O's: Urine output increasing Lactic acid acidosis: Resolved ID: Sepsis secondary to ESBL E. coli UTI: Complicated given stent and renal stone -Converted antibiotics to ertapenem: Day 3 of 14 GI/Nutrition: Encourage nutrition Heme: Baseline anemia -Type and screen ordered On systemic 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 -Supratherapeutic INR secondary to antibiotics: Close observation DVT prophylaxis: Holding additional warfarin Endocrine: ICU hyperglycemia protocol Relative adrenal insufficiency: Received stress dose steroids Vascular access: Peripheral IVs Code Status: DNR/DNI in event of cardiac arrest Disposition: Stable for downgrade out of ICU. (2) Acute renal failure superimposed on chronic kidney disease: (3) Heart failure with improved ejection fraction (HFimpEF): (4) Left ureteral calculus: (5) AF (atrial fibrillation): (6) Cardiac pacemaker in situ: (7) Atrial fibrillation, persistent: (8) Current use of intermediate card tender 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: Admission and Anticipated Discharge Date Admission Date: December 12, 2023 Subjective No overnight events. Patient reports she feels better than yesterday. Did not eat a whole lot yesterday, currently receiving breakfast Physical Exam Physical Exam: General: Alert. nontoxic. Skin: Warm, dry, Head: Atraumatic Ears, nose, mouth and throat: airway patent Cardiovascular: Normal peripheral perfusion Respiratory: no respiratory distress Gastrointestinal: Non distended Musculoskeletal: No deformity Results & Data Results & Data Vital Signs (Past 12 Hours) Vital Signs Temp Pulse Pulse Resp BP BP Pulse Ox 12/16/23 06:00 36.3 C L 110 H 22 115/83 96 12/16/23 05:00 130/78 12/16/23 05:00 36.2 C L 112 H 12 100 12/16/23 04:30 114/76 12/16/23 04:30 36.3 C L 114 H 13 98 12/16/23 04:01 36.3 C L 107 H 16 99 12/16/23 04:01 122/88 12/16/23 04:00 36.3 C L 107 H 13 12/16/23 03:30 36.4 C L 114 H 11 L 99 12/16/23 03:30 114/81 12/16/23 03:00 36.4 C L 118 H 20 12/16/23 03:00 100/77 12/16/23 02:30 36.4 C L 108 H 14 12/16/23 02:30 102/74 12/16/23 02:05 95/72 L 12/16/23 02:05 36.4 C L 105 H 14 99 12/16/23 02:01 36.4 C L 111 H 13 98 12/16/23 02:00 36.3 C L 106 H 16 12/16/23 01:30 104/85 12/16/23 01:30 36.3 C L 107 H 27 H 98 12/16/23 01:00 94/75 L 12/16/23 01:00 36.2 C L 101 H 13 12/16/23 00:36 36.2 C L 101 H 17 100 12/16/23 00:36 90/53 L 12/16/23 00:31 36.2 C L 106 H 13 100 12/16/23 00:00 117 H 12/16/23 00:00 101/69 12/16/23 00:00 36.2 C L 116 H 12 100 12/15/23 23:31 108/75 12/15/23 23:31 36.2 C L 113 H 17 100 12/15/23 23:00 36.1 C L 119 H 14 88 L 12/15/23 23:00 105/75 12/15/23 22:31 36.1 C L 113 H 11 L 100 12/15/23 22:31 106/70 12/15/23 22:00 36.1 C L 112 H 30 H 96 12/15/23 21:30 103/68 12/15/23 21:30 36.2 C L 122 H 20 87 L 12/15/23 21:00 36.2 C L 113 H 18 12/15/23 20:30 112/83 12/15/23 20:30 36.2 C L 116 H 12 12/15/23 20:30 O2 Del Method O2 Flow Rate 12/16/23 06:00 Nasal Cannula 3 12/16/23 05:00 12/16/23 05:00 3 12/16/23 04:30 12/16/23 04:30 12/16/23 04:01 3 12/16/23 04:01 12/16/23 04:00 12/16/23 03:30 3 12/16/23 03:30 12/16/23 03:00 12/16/23 03:00 12/16/23 02:30 12/16/23 02:30 12/16/23 02:05 12/16/23 02:05 12/16/23 02:01 3 12/16/23 02:00 12/16/23 01:30 12/16/23 01:30 3 12/16/23 01:00 12/16/23 01:00 12/16/23 00:36 12/16/23 00:36 12/16/23 00:31 12/16/23 00:00 12/16/23 00:00 12/16/23 00:00 3 12/15/23 23:31 12/15/23 23:31 12/15/23 23:00 3 12/15/23 23:00 12/15/23 22:31 12/15/23 22:31 12/15/23 22:00 3 12/15/23 21:30 12/15/23 21:30 12/15/23 21:00 12/15/23 20:30 12/15/23 20:30 12/15/23 20:30 Nasal Cannula 3 Critical Care Results & Data Vital Signs (Past 12 Hours) Vital Signs Temp Pulse Pulse Resp BP BP Pulse Ox 12/16/23 06:00 36.3 C L 110 H 22 115/83 96 12/16/23 05:00 130/78 12/16/23 05:00 36.2 C L 112 H 12 100 12/16/23 04:30 114/76 12/16/23 04:30 36.3 C L 114 H 13 98 12/16/23 04:01 36.3 C L 107 H 16 99 12/16/23 04:01 122/88 12/16/23 04:00 36.3 C L 107 H 13 12/16/23 03:30 36.4 C L 114 H 11 L 99 12/16/23 03:30 114/81 12/16/23 03:00 36.4 C L 118 H 20 12/16/23 03:00 100/77 12/16/23 02:30 36.4 C L 108 H 14 12/16/23 02:30 102/74 12/16/23 02:05 95/72 L 12/16/23 02:05 36.4 C L 105 H 14 99 12/16/23 02:01 36.4 C L 111 H 13 98 12/16/23 02:00 36.3 C L 106 H 16 12/16/23 01:30 104/85 12/16/23 01:30 36.3 C L 107 H 27 H 98 12/16/23 01:00 94/75 L 12/16/23 01:00 36.2 C L 101 H 13 12/16/23 00:36 36.2 C L 101 H 17 100 12/16/23 00:36 90/53 L 12/16/23 00:31 36.2 C L 106 H 13 100 12/16/23 00:00 117 H 12/16/23 00:00 101/69 12/16/23 00:00 36.2 C L 116 H 12 100 12/15/23 23:31 108/75 12/15/23 23:31 36.2 C L 113 H 17 100 12/15/23 23:00 36.1 C L 119 H 14 88 L 12/15/23 23:00 105/75 12/15/23 22:31 36.1 C L 113 H 11 L 100 12/15/23 22:31 106/70 12/15/23 22:00 36.1 C L 112 H 30 H 96 12/15/23 21:30 103/68 12/15/23 21:30 36.2 C L 122 H 20 87 L 12/15/23 21:00 36.2 C L 113 H 18 12/15/23 20:30 112/83 12/15/23 20:30 36.2 C L 116 H 12 12/15/23 20:30 O2 Del Method O2 Flow Rate 12/16/23 06:00 Nasal Cannula 3 12/16/23 05:00 12/16/23 05:00 3 12/16/23 04:30 12/16/23 04:30 12/16/23 04:01 3 12/16/23 04:01 12/16/23 04:00 12/16/23 03:30 3 12/16/23 03:30 12/16/23 03:00 12/16/23 03:00 12/16/23 02:30 12/16/23 02:30 12/16/23 02:05 12/16/23 02:05 12/16/23 02:01 3 12/16/23 02:00 12/16/23 01:30 12/16/23 01:30 3 12/16/23 01:00 12/16/23 01:00 12/16/23 00:36 12/16/23 00:36 12/16/23 00:31 12/16/23 00:00 12/16/23 00:00 12/16/23 00:00 3 12/15/23 23:31 12/15/23 23:31 12/15/23 23:00 3 12/15/23 23:00 12/15/23 22:31 12/15/23 22:31 12/15/23 22:00 3 12/15/23 21:30 12/15/23 21:30 12/15/23 21:00 12/15/23 20:30 12/15/23 20:30 12/15/23 20:30 Nasal Cannula 3 Lab & Micro Results (Past 24 Hours) RBC 3.54 M/uL (4.20-5.40) L 12/16/23 WBC 12.33 K/ul (4.8-10.8) H 12/16/23 Hgb 12.1 g/dl (12.0-16.0) 12/16/23 Hct 40.1 % (37.0-47.0) 12/16/23 MCV 113.3 fL (80.0-100.0) H 12/16/23 MCH 34.2 pg (25.0-34.0) H 12/16/23 MCHC 30.2 g/dL (32.0-36.0) L 12/16/23 RDW Standard Deviation 74.8 fL (36.4-46.3) H 12/16/23 RDW Coefficient of Variation 17.7 % (11.5-14.5) H 12/16/23 Plt Count 177 K/uL (130-400) 12/16/23 MPV 11.2 fL (9.4-12.4) 12/16/23 Nucleated Red Blood Cells % (auto) 0.9 % 12/16 Nucleated RBC Absolute Count (auto) 0.11 K/uL (0.00-0.12) 0 12/16/23 Neutrophils (%) (Auto) 88.5 % 12/16/23 Lymphocytes (%) (Auto) 3.1 % 12/16/23 Monocytes # (Auto) 0.85 K/uL (0.11-0.59) H 12/16/23 Eosinophils # (Auto) 0.02 K/uL (0.00-0.50) 12/16/23 Immature Granulocyte % (Auto) 1.1 % 12/16/23 Neutrophils # (Auto) 10.92 K/uL (1.40-6.50) H 12/16/23 Lymphocytes # (Auto) 0.38 K/uL (1.20-3.40) L 12/16/23 Monocytes # (Auto) 0.85 K/uL (0.11-0.59) H 12/16/23 Eosinophils # (Auto) 0.02 K/uL (0.00-0.50) 12/16/23 Basophils # (Auto) 0.03 K/uL (0.00-0.20) 12/16/23 Immature Granulocyte # (Auto) 0.13 K/uL (0.01-0.20) 4 Polychromasia 1+ 12/16/23 Macrocytosis Present 12/16/23 Ovalocytes 1+ 12/16/23 Na 138 mmol/L (136-145) 12/16/23 K 5.6 mmol/L (3.5-5.1) H 12/16/23 Cl 103 mmol/L (98-107) 12/16/23 CO2 24 mmol/L (21-32) 12/16/23 Anion Gap 11 (3-11) 12/16/23 BUN 77 mg/dl (6-23) H 12/16/23 Creatinine 3.74 mg/dl (0.6-1.2) H 12/16/23 Estimated GFR ( Amer) 11.9 ml/min 12/16/23 Estimated GFR (Non-Af Amer) 10.3 ml/min 12/16/23 BUN/Creatinine Ratio 20.6 (10-20) H 12/16/23 Glu 99 mg/dl (70-99(Fasting)) 12/16/23 Ca 8.7 mg/dl (8.6-10.3) 12/16/23 Phosphorus Level 6.2 mg/dl (2.5-4.9) H 12/16/23 Total Bilirubin 1.0 mg/dl (0.2-1.0) 12/16/23 AST 47 U/L (13-39) H 12/16/23 ALT 14 U/L (7-52) 12/16/23 Alkaline Phosphatase 85 U/L (34-104) 12/16/23 TP 7.4 gm/dl (6.0-8.3) 12/16/23 Albumin 3.4 gm/dl (3.4-5.0) 12/16/23 Globulin 4.0 gm/dl (2.5-4.0) 12/16/23 Albumin/Globulin Ratio 0.9 (0.9-2) 12/16/23 Mg 2.6 mg/dl (1.7-2.4) H 12/16/23 04:04 Calcium Level 8.7 mg/dl (8.6-10.3) 12/16/23 04:04 Prothromb Time International Ratio 8.6 (0.9-1.1) H* 12/16/23 0 4:04 Microbiology 12/13/23 09:15 Aerobic Blood Culture - Preliminary Blood No growth in Aerobic bottle after 48 hours. Anaerobic Blood Culture - Preliminary No growth in Anaerobic bottle after 48 hours. 12/13/23 09:29 Aerobic Blood Culture - Preliminary Blood No growth in Aerobic bottle after 48 hours. Anaerobic Blood Culture - Final I & O Totals 24 Hours 12/15/23 12/16/23 12/17/23 06:59 06:59 06:59 Intake Total 2145.167 / 2145.167 50 / 50 Output Total 726 / 726 662 / 662 Balance 1419.167 / 1419.167 -612 / -612 Cumulative 12/12/23 01:02 thru 12/16/23 06:00 Intake Total 9534.786 Output Total 1921 Balance 7613.786 RT Ventilator Mngmt (Last Documented) Ventilator Ordered Settings Respiratory Rate 22 12/16/23 06:00 Fraction of Inspired Oxygen 2 12/13/23 17:50 Ventilator - PT Measurements Respiratory Rate 22 Coding Level of Care Code 63417 SUB INP/OBS CARE 3/50MIN Diagnoses Sepsis with acute renal failure, due to unspecified organism, unspecified acute renal failure type, unspecified whether septic shock present A41.9; R65.20; N17.9 Sepsis type: sepsis due to unspecified organism Sepsis acute organ dysfunction status: with acute organ dysfunction Severe sepsis acute organ dysfunction type: acute renal failure Acute renal failure type: unspecified Severe sepsis shock status: unspecified Acute renal failure superimposed on chronic kidney disease N17.9; N18.9 Heart failure with improved ejection fraction (HFimpEF) I50.32 Left ureteral calculus N20.1 AF (atrial fibrillation) I48.91 Atrial fibrillation type: unspecified Cardiac pacemaker in situ Z95.0 Atrial fibrillation, persistent I48.19 Current use of long-term 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 Z79.01 (1) Sepsis Sepsis type: sepsis due to unspecified organism Sepsis acute organ dysfunction status: with acute organ dysfunction Severe sepsis acute organ dysfunction type: acute renal failure Acute renal failure type: unspecified Severe sepsis shock status: unspecified Qualified Code(s): A41.9 - Sepsis, unspecified organism; R65.20 - Severe sepsis without septic shock; N17.9 - Acute kidney failure, unspecified (5) AF (atrial fibrillation) Atrial fibrillation type: unspecified Qualified Code(s): I48.91 - Unspecified atrial fibrillation
[2023-12-16] MEDS ORDERED: HYDROmorphone INJ 0.5 MG/0.5 ML SYR IV PRN (08:43)
[2023-12-16] MEDS: METOPROLOL TARTRATE 50 MG TAB PO SCH ×2 (09:16→14:01)
--- NOTE | 2023-12-16 10:15 | Nephrology Progress Note ---
Date of Service December 16, 2023 Assessment & Plan Admission and Anticipated Discharge Date Admission Date: December 12, 2023 Subjective Assessment & Plan (1) Acute kidney injury superimposed on CKD: favor ischemic ATN with background CKD 4. ATNin the setting of sepsis/urine Obstruction. s/p cystoscopy and left ureteral stent placement. baseline creatinine 2.3 on 11/30. not an GINNER candidate should the need arise --probably should recover. Per previous OP discussions and given current code status. Was discussed and confirmed in depth yesterday with son and with patient daily bmp at least continue efforts to stabilize HR and treat complicated UTI (2) Hyperkalemia: likely multifactorial w/ recent K supplements on board in setting of RADHA; supplements now held adn should start to come down Can give another dose of lasix 60 iv x 1. K are all less than 6 so not really high enough to cause Cardiac issues. Continue [place]. Plan of acre was discussed with primary team. S--urine 662 ml yesterday. K is still high. Labs still worsening slightly. Some issues with HR. BP seems fine. being Downgraded out of ICU Physical Exam Physical Exam: General: Alert. nontoxic. Skin: Warm, dry, Head: Atraumatic Ears, nose, mouth and throat: airway patent Cardiovascular: Normal peripheral perfusion Respiratory: no respiratory distress Gastrointestinal: Non distended Musculoskeletal: No deformity Results & Data Vital Signs (Past 12 Hours) Vital Signs Temp Pulse Pulse Resp BP BP Pulse Ox 12/16/23 08:17 113 H 22 99 12/16/23 06:00 36.3 C L 110 H 22 115/83 96 12/16/23 05:00 130/78 12/16/23 05:00 36.2 C L 112 H 12 100 12/16/23 04:30 114/76 12/16/23 04:30 36.3 C L 114 H 13 98 12/16/23 04:01 36.3 C L 107 H 16 99 12/16/23 04:01 122/88 12/16/23 04:00 36.3 C L 107 H 13 12/16/23 03:30 36.4 C L 114 H 11 L 99 12/16/23 03:30 114/81 12/16/23 03:00 36.4 C L 118 H 20 12/16/23 03:00 100/77 12/16/23 02:30 36.4 C L 108 H 14 12/16/23 02:30 102/74 12/16/23 02:05 95/72 L 12/16/23 02:05 36.4 C L 105 H 14 99 12/16/23 02:01 36.4 C L 111 H 13 98 12/16/23 02:00 36.3 C L 106 H 16 12/16/23 01:30 104/85 12/16/23 01:30 36.3 C L 107 H 27 H 98 12/16/23 01:00 94/75 L 12/16/23 01:00 36.2 C L 101 H 13 12/16/23 00:36 36.2 C L 101 H 17 100 12/16/23 00:36 90/53 L 12/16/23 00:31 36.2 C L 106 H 13 100 12/16/23 00:00 117 H 12/16/23 00:00 101/69 12/16/23 00:00 36.2 C L 116 H 12 100 12/15/23 23:31 108/75 12/15/23 23:31 36.2 C L 113 H 17 100 12/15/23 23:00 36.1 C L 119 H 14 88 L 12/15/23 23:00 105/75 12/15/23 22:31 36.1 C L 113 H 11 L 100 12/15/23 22:31 106/70 O2 Del Method O2 Flow Rate 12/16/23 08:17 Nasal Cannula 3 12/16/23 06:00 Nasal Cannula 3 12/16/23 05:00 12/16/23 05:00 3 12/16/23 04:30 12/16/23 04:30 12/16/23 04:01 3 12/16/23 04:01 12/16/23 04:00 12/16/23 03:30 3 12/16/23 03:30 12/16/23 03:00 12/16/23 03:00 12/16/23 02:30 12/16/23 02:30 12/16/23 02:05 12/16/23 02:05 12/16/23 02:01 3 12/16/23 02:00 12/16/23 01:30 12/16/23 01:30 3 12/16/23 01:00 12/16/23 01:00 12/16/23 00:36 12/16/23 00:36 12/16/23 00:31 12/16/23 00:00 12/16/23 00:00 12/16/23 00:00 3 12/15/23 23:31 12/15/23 23:31 12/15/23 23:00 3 12/15/23 23:00 12/15/23 22:31 12/15/23 22:31
--- NOTE | 2023-12-16 12:00 | Cardiology Progress Note ---
Date of Service December 16, 2023 Assessment & Plan (1) Atrial fibrillation with RVR: (2) Supratherapeutic INR: (3) Acute kidney injury superimposed on CKD: (4) Hyperkalemia: (5) Sepsis: (6) Replacement of aortic valve: (7) Heart failure with improved ejection fraction (HFimpEF): Plan Titrate metoprolol to 50 mg 3 times daily. (Outpatient dose of metoprolol 150 mg twice daily) Cannot add digoxin at this time due to ongoing hyperkalemia. Unable to utilize amiodarone due to documented allergy. Hold warfarin with repeat INR in AM. No signs/symptoms of blood loss with stable hemoglobin. Consider addition of vitamin K if INR continues to trend upward >10.0. Case discussed with critical care medicine for continuity of care. I spent a total of 45 minutes on the date of service in preparation, delivery, and documentation of the care provided to this patient, excluding any time spent in the performance of separately billed services. Admission and Anticipated Discharge Date Admission Date: December 12, 2023 Subjective Patient seen and examined at the bedside in the intensive care unit. Responds to verbal stimuli and answer some questions. Remains somnolent. Family at bedside. Patient denies chest pain or shortness of breath. Notes discomfort with palpation of her lower extremities. No edema. Telemetry reveals atrial fibrillation HR 10-120's. Blood pressure stable off pressor therapy. INR up to 8.6 today without signs/symptoms of blood loss. Other abnormalities include serum creatinine trending upward to 3.74 with a potassium of 5.6. Review of Systems Review of Systems: All systems reviewed & are unremarkable except as noted in Subjective Physical Exam Constitutional: well nourished and + ill appearing; no acute distress Respiratory: no respiratory distress and no labored breathing Auscultation: no crackles, no rales, no rhonchi and no wheezes Cardiovascular: Rate/Rhythm: + tachycardic and + irregularly irregular Heart Sounds: normal S1 and normal S2; no murmur Vessels: no JVD and no c arotid bruit Extremities: no edema Gastrointestinal (Abdomen): Inspection/Auscultation: abdomen normal to inspection; abdomen not distended Percussion/Palpation: abdomen soft; abdomen nontender, no guarding and abdomen not rigid Neurologic: CN's II-XI intact bilaterally and moves all extremities Results & Data Vital Signs (Past 12 Hours) Vital Signs Temp Pulse Pulse Resp BP BP Pulse Ox 12/16/23 10:00 36.2 C L 119 H 15 94 12/16/23 10:00 109/79 12/16/23 09:30 108/74 12/16/23 09:30 36.2 C L 116 H 16 97 12/16/23 09:00 36.2 C L 122 H 23 95 12/16/23 08:30 110/93 12/16/23 08:30 36.2 C L 120 H 14 100 12/16/23 08:17 113 H 22 99 12/16/23 08:00 118/102 H 12/16/23 08:00 36.2 C L 112 H 14 93 12/16/23 07:30 36.2 C L 105 H 23 100 12/16/23 07:30 106/73 12/16/23 07:00 92/54 L 12/16/23 07:00 36.3 C L 107 H 24 93 12/16/23 06:39 115/83 12/16/23 06:39 36.3 C L 113 H 16 12/16/23 06:00 36.3 C L 113 H 11 L 12/16/23 06:00 36.3 C L 110 H 22 115/83 96 12/16/23 05:00 130/78 12/16/23 05:00 36.2 C L 112 H 12 100 12/16/23 04:30 114/76 12/16/23 04:30 36.3 C L 114 H 13 98 12/16/23 04:01 36.3 C L 107 H 16 99 12/16/23 04:01 122/88 12/16/23 04:00 36.3 C L 107 H 13 12/16/23 03:30 36.4 C L 114 H 11 L 99 12/16/23 03:30 114/81 12/16/23 03:00 36.4 C L 118 H 20 12/16/23 03:00 100/77 12/16/23 02:30 36.4 C L 108 H 14 12/16/23 02:30 102/74 12/16/23 02:05 95/72 L 12/16/23 02:05 36.4 C L 105 H 14 99 12/16/23 02:01 36.4 C L 111 H 13 98 12/16/23 02:00 36.3 C L 106 H 16 12/16/23 01:30 104/85 12/16/23 01:30 36.3 C L 107 H 27 H 98 12/16/23 01:00 94/75 L 12/16/23 01:00 36.2 C L 101 H 13 12/16/23 00:36 36.2 C L 101 H 17 100 12/16/23 00:36 90/53 L 12/16/23 00:31 36.2 C L 106 H 13 100 12/16/23 00:00 117 H 12/16/23 00:00 101/69 12/16/23 00:00 36.2 C L 116 H 12 100 O2 Del Method O2 Flow Rate 12/16/23 10:00 12/16/23 10:00 12/16/23 09:30 12/16/23 09:30 12/16/23 09:00 12/16/23 08:30 12/16/23 08:30 12/16/23 08:17 Nasal Cannula 3 12/16/23 08:00 12/16/23 08:00 12/16/23 07:30 12/16/23 07:30 12/16/23 07:00 12/16/23 07:00 12/16/23 06:39 12/16/23 06:39 12/16/23 06:00 12/16/23 06:00 Nasal Cannula 3 12/16/23 05:00 12/16/23 05:00 3 12/16/23 04:30 12/16/23 04:30 12/16/23 04:01 3 12/16/23 04:01 12/16/23 04:00 12/16/23 03:30 3 12/16/23 03:30 12/16/23 03:00 12/16/23 03:00 12/16/23 02:30 12/16/23 02:30 12/16/23 02:05 12/16/23 02:05 12/16/23 02:01 3 12/16/23 02:00 12/16/23 01:30 12/16/23 01:30 3 12/16/23 01:00 12/16/23 01:00 12/16/23 00:36 12/16/23 00:36 12/16/23 00:31 12/16/23 00:00 12/16/23 00:00 12/16/23 00:00 3 Laboratory Results Cardiac Enzymes 12/16/23 Range/Units 04:04 AST 47 H (13-39) U/L Coagulation 12/16/23 Range/Units 04:04 PT 82.3 H (9.0-12.0) Seconds CBC 12/16/23 Range/Units 04:04 WBC 12.33 H (4.8-10.8) K/ul RBC 3.54 L (4.20-5.40) M/uL Hgb 12.1 (12.0-16.0) g/dl Hct 40.1 (37.0-47.0) % Plt Count 177 (130-400) K/uL Neut # (Auto) 10.92 H (1.40-6.50) K/uL Lymph # (Auto) 0.38 L (1.20-3.40) K/uL [place] # (Auto) 0.85 H (0.11-0.59) K/uL Eos # (Auto) 0.02 (0.00-0.50) K/uL Baso # (Auto) 0.03 (0.00-0.20) K/uL Comprehensive Metabolic Panel 12/15/23 12/16/23 Range/Units 16:09 04:04 Sodium 137 138 (136-145) mmol/L Potassium 5.7 H 5.6 H (3.5-5.1) mmol/L Chloride 102 103 (98-107) mmol/L Carbon Dioxide 26 24 (21-32) mmol/L BUN 73 H 77 H (6-23) mg/dl Creatinine 3.35 H 3.74 H D (0.6-1.2) mg/dl Glucose 134 H 99 (70-99(Fasting)) mg/dl Calcium 8.6 8.7 (8.6-10.3) mg/dl AST 47 H (13-39) U/L ALT 14 (7-52) U/L Alkaline Phosphatase 85 (34-104) U/L Total Protein 7.4 (6.0-8.3) gm/dl Albumin 3.4 (3.4-5.0) gm/dl Intake and Output 12/15/23 12/16/23 12/16/23 22:59 06:59 14:59 Intake Total 0 50 50 / 50 Output Total 280 / 662 182 / 662 80 / 80 Balance -280 / -612 -132 / -612 -80 / -80 Intake: Oral 0 50 50 / 50 Output: Urine Amount (Catheter) 280 / 662 182 / 662 80 / 80 [place]/Indwelling 280 / 662 182 / 662 80 / 80 Other: Weight 85.3 kg 86.7 kg Weight Measurement Method Built in [facility] (5) Sepsis Sepsis type: sepsis due to unspecified organism Sepsis acute organ dysfunction status: with acute organ dysfunction Severe sepsis acute organ dysfunction type: acute renal failure Acute renal failure type: unspecified Severe sepsis shock status: unspecified Qualified Code(s): A41.9 - Sepsis, unspecified organism; R65.20 - Severe sepsis without septic shock; N17.9 - Acute kidney failure, unspecified
[2023-12-16] MEDS: FUROSEMIDE 40 MG/4 ML VIAL IV ONE (13:59)
--- NOTE | 2023-12-16 15:13 | Hospitalist Progress Note ---
Date of Service December 16, 2023 Assessment & Plan (1) Left ureteral calculus: Plan Pt is an 88yo female with past medical history significant for chronic hypoxemic respiratory failure on 3 L oxygen, hyperlipidemia, obstructive sleep apnea on oxygen, history of CAD s/p stent, sinus node dysfunction s/p pacemaker, heart failure with reduced ejection fraction, asymptomatic bilateral carotid artery stenosis, hypertension, chronic atrial fibrillation history of RADHA, CKD stage I II, restless leg syndrome, bilateral leg edema, essential thrombocythemia, s/p aortic valve replacement, lumbar spinal stenosis presenting with severe back and left flank pain that started the evening prior to arrival. Left ureteral calculus Renal colic Pt presented with severe back and left flank pain On admission afebrile, tachycardic and WBC elevated >10K UA suggestive of infection, urine Cx was obtained, and is currently growing gram negative rods CT ab/d pelvis concerning for moderate degree left hydronephrosis with 6 mm obstructing calculus in the proximal left ureter Was placed on cautious IV fluid hydration given CHF Hx Was initially started on IV Azactam, then switched to Ertapenem by previous provider based on prior Cx from 08/2023 that grew ESBL sensitive to Ertapenem IV Dilaudid as needed, IV antiemetics as needed Urology was consulted, appreciate recs: -s/p L ureteral stent placement on 12/12/23 -recommending no further procedures while hospitalized/until infection clears Severe sepsis Septic shock On 12/13/23 pt hypotensive with reports of receiving fluid boluses overnight for the same Pt reporting shaking and chills WBC increased to >13K, tachycardic, hypothermic with urinary infectious source, meeting criteria for sepsis. Lactate elevated at 4.6 and blood Cx x2 ordered with NGTD Urine Cx currently growing ESBL E coli once more. Transferred to the ICU on 12/13/21 for pressor support, downgraded on 12/16 Ertapenem was switched to Zosyn to which last Cx in Aug 2023 was sensitive (noted itchy rash allergy, NOT anaphylaxis), switched back based on sensitivities to Ertapenem in the ICU on 12/14 Continue Ertapenem ID consulted- appreciate further recs -continue Ertapenem for 14 days (December 26 final day of treatment) History of chronic systolic CHF EF of 40 to 45% on echo done in August 2023 Repeat echo on 12/14 noting similar findings except a small to moderate L pleural effusion Pt also with bilateral lower extremity edema On home torsemide 80mg with scheduled potassium Cardiology consulted- appreciate recs -holding home torsemide at this time Noted baseline of 3L of oxygen use, monitor for fluid overload/increase in oxygen requirement History of chronic atrial fibrillation At home, on metoprolol succinate 150mg bid for rate control. That dose has been on hold, currently being reintroduced at lower rate. Also on Coumadin for 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, monitor INR -INR currently elevated above goal from 12/13, holding warfarin at this time -consider Vit K for reversal HR 120-130s, cardiology consulted as above, appreciate recs S/p bioprosthetic aortic valve replacement On coumadin, currently on hold as above INR goal 2-3 INR currently elevated above goal from 12/13, holding warfarin at this time -consider Vit K for reversal Hypertension On metoprolol succinate, Imdur and torsemide at home. 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 Presented with creatinine of ~ 2, appears to be baseline Currently elevated above baseline Nephrology currently on board- appreciate recs Avoid nephrotoxic meds/contrast as much as possible Continue to monitor Acute on Chronic Anemia Hgb 11.9 on admission Iron level decreased, consider Venofer replacement Folate, b12 wnl Replete as needed Hyperkalemia K of 5.3 noted, currently trending up Holding home potassium supplements s/p Veltassa doses and lokelma, also received insulin Monitor with AM labs Appreciate Nephrology recs Hyperglycemia DMII Glucose levels have been elevated, as high as 200 hgb1c of 7.0 noted this admission, new DMII diagnosis ISS while hospitalized, continue to monitor levels Consider healthcare educator consult for discharge History of CAD s/p stent On Plavix, statin, metoprolol succinate and Imdur Holding Imdur metoprolol being re-introduced Obstructive sleep apnea chronic hypoxic respiratory failure On home oxygen 3L 15/05 Continue to monitor for increased oxygen need Sinus node dysfunction status post pacemaker placement Hyperlipidemia On statin, continue GERD Continue Pepcid Thrombocythemia On hydroxyurea Follows with heme-onc CODE STATUS: DNR/DNI DVT prophylaxis: On Coumadin, currently on hold due to INR Diet: HH/DMII diet Dispo: PT/OT once more stable Admission and Anticipated Discharge Date Admission Date: December 12, 2023 Subjective Pt was seen with one son at bedside. She was alert and oriented x3. Stated that she was just tired. States she felt like she has not slept for some time. Otherwise denied acute concerns. Review of Systems Review of Systems: All systems reviewed & are unremarkable except as noted in Subjective Physical Exam Physical Exam: General: Alert, orientedx3. No acute distress Skin: No noted rashes or bruises Psych: Appropriate mood and affect Neuro: some hearing loss noted HEENT: NC/AT Chest: Nontender to palpation. CV: Irregular Resp: no increased effort of breathing Abdomen:Soft, mildly tender diffusely Extremities: ++ edema in lower extremities bilaterally. Results & Data Results & Data Vital Signs (Past 12 Hours) Vital Signs Temp Pulse Pulse Resp BP BP Pulse Ox 12/16/23 13:00 99/75 L 12/16/23 13:00 36.3 C L 106 H 16 97 12/16/23 12:30 92/72 L 12/16/23 12:30 36.2 C L 108 H 14 98 12/16/23 12:00 36.1 C L 113 H 14 99 12/16/23 12:00 117/76 12/16/23 11:31 36.1 C L 118 H 21 99 12/16/23 11:31 101/51 L 12/16/23 11:13 36.1 C L 117 H 21 97 12/16/23 11:13 113/87 12/16/23 11:00 36.1 C L 118 H 21 98 12/16/23 10:00 36.2 C L 119 H 15 94 12/16/23 10:00 109/79 12/16/23 09:30 108/74 12/16/23 09:30 36.2 C L 116 H 16 97 12/16/23 09:00 36.2 C L 122 H 23 95 12/16/23 08:30 110/93 12/16/23 08:30 36.2 C L 120 H 14 100 12/16/23 08:17 113 H 22 99 12/16/23 08:00 118/102 H 12/16/23 08:00 36.2 C L 112 H 14 93 12/16/23 07:30 36.2 C L 105 H 23 100 12/16/23 07:30 106/73 12/16/23 07:00 92/54 L 12/16/23 07:00 36.3 C L 107 H 24 93 12/16/23 06:39 115/83 12/16/23 06:39 36.3 C L 113 H 16 12/16/23 06:00 36.3 C L 113 H 11 L 12/16/23 06:00 36.3 C L 110 H 22 115/83 96 12/16/23 05:00 130/78 12/16/23 05:00 36.2 C L 112 H 12 100 12/16/23 04:30 114/76 12/16/23 04:30 36.3 C L 114 H 13 98 12/16/23 04:01 36.3 C L 107 H 16 99 12/16/23 04:01 122/88 12/16/23 04:00 36.3 C L 107 H 13 12/16/23 03:30 36.4 C L 114 H 11 L 99 12/16/23 03:30 114/81 O2 Del Method O2 Flow Rate 12/16/23 13:00 12/16/23 13:00 12/16/23 12:30 12/16/23 12:30 12/16/23 12:00 12/16/23 12:00 12/16/23 11:31 12/16/23 11:31 12/16/23 11:13 12/16/23 11:13 12/16/23 11:00 12/16/23 10:00 12/16/23 10:00 12/16/23 09:30 12/16/23 09:30 12/16/23 09:00 12/16/23 08:30 12/16/23 08:30 12/16/23 08:17 Nasal Cannula 3 12/16/23 08:00 12/16/23 08:00 12/16/23 07:30 12/16/23 07:30 12/16/23 07:00 12/16/23 07:00 12/16/23 06:39 12/16/23 06:39 12/16/23 06:00 12/16/23 06:00 Nasal Cannula 3 12/16/23 05:00 12/16/23 05:00 3 12/16/23 04:30 12/16/23 04:30 12/16/23 04:01 3 12/16/23 04:01 12/16/23 04:00 12/16/23 03:30 3 12/16/23 03:30
[2023-12-16 17:12] LABS: Calcium 8.8 mg/dl (8.6-10.3); Potassium 5.7 mmol/L (3.5-5.1)
[2023-12-16 17:17] LABS: BUN Creatinine Ratio 22.4 (10-20); Est GFR (African American) 11.7 ml/min; Est GFR (Non-African American) 10.1 ml/min
[2023-12-16 23:57] LABS: Hematocrit (blood only) 41.1 % (37.0-47.0); Hemoglobin 12.4 g/dl (12.0-16.0)
[2023-12-17 00:10] LABS: Albumin Globulin Ratio 0.9 (0.9-2); Albumin Level 3.6 gm/dl (3.4-5.0); Calcium 9.1 mg/dl (8.6-10.3); Creatinine Clr Calc Pharmacy 9.5 ml/min; Est GFR (Non-African American) 9.5 ml/min; Potassium 5.5 mmol/L (3.5-5.1); Total Protein 7.6 gm/dl (6.0-8.3)
--- NOTE | 2023-12-17 01:10 | CT Scan Report ---
Exam(s): CT ABDOMEN + PELVIS Without Contrast EXAM: CT Abdomen and Pelvis Without Intravenous Contrast CLINICAL HISTORY: Reason for exam: worsening abd pain, coagulopathy. TECHNIQUE: Axial computed tomography images of the abdomen and pelvis without intravenous contrast. CTDI is 28.1 mGy and DLP is 1420 mGy-cm. Automated exposure control was utilized for the study. A dose lowering technique was utilized adhering to the principles of ALARA. COMPARISON: No relevant prior studies available. FINDINGS: Lung bases: See below. Pleural space: Small bilateral pleural effusions measuring 4 cm with partial bilateral lower lobe atelectasis. There is moderate cardiomegaly. ABDOMEN: Liver: Unremarkable. Gallbladder and bile ducts: Unremarkable. No calcified stones. No ductal dilation. Pancreas: Unremarkable. No ductal dilation. Spleen: Unremarkable. No splenomegaly. Adrenals: Unremarkable. No mass. Kidneys and ureters: There is a double-J ureteral stent extending through the left kidney and bladder in acceptable position. No hydronephrosis is seen. Probable 4 mm calculus adjacent to the stent in the proximal ureter. Stomach and bowel: Bowel loops are nondilated. There is diverticulosis throughout the colon. No clear evidence of focal diverticulitis or focal inflammatory changes involving the bowel, although, subtle inflammation may be obscured by the generalized edema. PELVIS: Appendix: No findings to suggest acute appendicitis. Bladder: The urinary bladder is decompressed by [place] catheter. No stones. Reproductive: Unremarkable as visualized. ABDOMEN and PELVIS: Intraperitoneal space: Unremarkable. No free air. No significant fluid collection. Bones/joints: Mild to moderate multilevel degenerative changes throughout the spine. No acute fracture is seen. No dislocation. Soft tissues: Diffuse anasarca over the torso and small amount of ascites in the abdomen or pelvis. Consider CHF/fluid overload. Vasculature: The abdominal aorta is severely calcified but nondilated. Lymph nodes: Unremarkable. No enlarged lymph nodes. IMPRESSION: 1. Diffuse anasarca over the torso and small amount of ascites in the abdomen or pelvis. Consider CHF/fluid overload. 2. There is a double-J ureteral stent extending through the left kidney and bladder in acceptable position. No hydronephrosis is seen. Probable 4 mm calculus adjacent to the stent in the proximal ureter. 3. Small bilateral pleural effusions measuring 4 cm with partial bilateral lower lobe atelectasis. There is moderate cardiomegaly. 4. Bowel loops are nondilated. There is diverticulosis throughout the colon. No clear evidence of focal diverticulitis or focal inflammatory changes involving the bowel, although, subtle inflammation may be obscured by the generalized edema. Electronically signed by: Andrews Pena MD 12/17/23 01:08 AM
[2023-12-17] MEDS: ALBUMIN 25% 25 GM/100 ML VIAL IV ONE (01:59)
[2023-12-17] MEDS: PHYTONADIONE 5 MG TAB PO STA (02:01)
[2023-12-17 07:20] LABS: Prothrombin Time > 90.0 Seconds (9.0-12.0)
[2023-12-17 07:33] LABS: INR > 9.5 (0.9-1.1)
[2023-12-17 07:33] LABS: Basophils # (auto) 0.05 K/uL (0.00-0.20); Basophils % (auto) 0.5 %; Eosinophils # (auto) 0.09 K/uL (0.00-0.50); Eosinophils % (auto) 0.9 %; Hematocrit (blood only) 42.9 % (37.0-47.0); Hemoglobin 12.7 g/dl (12.0-16.0); Immature Granulocytes # (auto) 0.18 K/uL (0.01-0.20); Immature Granulocytes % (auto) 1.7 %; Lymphocytes # (auto) 0.32 K/uL (1.20-3.40); Lymphocytes % (auto) 3.1 %; Mean Corpuscular Hemoglobin 33.7 pg (25.0-34.0); Mean Corpuscular Hgb Conc 29.6 g/dL (32.0-36.0); Mean Corpuscular Volume 113.8 fL (80.0-100.0); Mean Platelet Volume 11.6 fL (9.4-12.4); Monocytes % (auto) 13.4 %; Neutrophils # (auto) 8.38 K/uL (1.40-6.50); Neutrophils % (auto) 80.4 %; Nucleated RBC # (auto) 0.23 K/uL (0.00-0.12); Nucleated RBC % (auto) 2.2 %; Platelet Count 172 K/uL (130-400); RDW Coefficient of Variation 17.8 % (11.5-14.5); RDW Standard Deviation 74.5 fL (36.4-46.3); Red Blood Count 3.77 M/uL (4.20-5.40); White Blood Count 10.42 K/ul (4.8-10.8)
[2023-12-17 07:53] LABS: Albumin Level 3.5 gm/dl (3.4-5.0); BUN Creatinine Ratio 22.6 (10-20); Bilirubin Direct 0.5 mg/dl (0-0.2); Bilirubin,Total 1.3 mg/dl (0.2-1.0); Calcium 9.1 mg/dl (8.6-10.3); Creatinine Clr Calc Pharmacy 9.5 ml/min; Est GFR (African American) 10.9 ml/min; Est GFR (Non-African American) 9.4 ml/min; Magnesium 2.8 mg/dl (1.7-2.4); Phosphorus 7.9 mg/dl (2.5-4.9); Potassium 5.7 mmol/L (3.5-5.1); Total Protein 7.4 gm/dl (6.0-8.3)
[2023-12-17 07:54] LABS: Macrocytosis Present; Ovalocytes 1+; Polychromasia 1+; Toxic Vacuolation 1+
[2023-12-17] MEDS: ACETAMINOPHEN 1,000 MG/100 ML VIAL IV STA (08:09)
[2023-12-17] MEDS: PHYTONADIONE 2.5 MG in DEXTROSE 5% 50 ML IV ONE (09:27)
--- NOTE | 2023-12-17 10:32 | Nephrology Progress Note ---
Date of Service December 17, 2023 Assessment & Plan Admission and Anticipated Discharge Date Admission Date: December 12, 2023 Subjective Assessment & Plan (1) Acute kidney injury superimposed on CKD: favor ischemic ATN with background CKD 4. ATN in the setting of sepsis/urine Obstruction. s/p cystoscopy and left ureteral stent placement. Now has become Oliguric ATN--no response with Lasix 60 mg iv as far as urine output nor the K. for today will give lasix 100 iv and metolazone 5 mg----If no urinary response means bad renal prognosis. baseline creatinine 2.3 on 11/30. not an VASCULAR NEUROLOGIST candidate should the need arise. Per previous OP discussions and given current code status. Was discussed and confirmed in depth again with family today. patient quite Sleepy today to participate in discussion. daily bmp at least continue efforts to stabilize HR and treat complicated UTI (2) Hyperkalemia: likely multifactorial w/ recent K supplements on board in setting of RADHA; supplements now held adn should start to come down Can give another dose of lasix 60 iv x 1. K are all less than 6 so not really high enough to cause Cardiac issues. Continue Lokelma. Plan of acre was discussed with primary team. S--urine Only 300+ ml yesterday. urine has been Dropping. now in regular floor. K is still high. Labs still worsening. she appears much less interactive today than yesterday Physical Exam Physical Exam: General: Alert. nontoxic. Skin: Warm, dry, Head: Atraumatic Ears, nose, mouth and throat: airway patent Cardiovascular: Normal peripheral perfusion Respiratory: no respiratory distress Gastrointestinal: Non distended Musculoskeletal: No deformity Results & Data Vital Signs (Past 12 Hours) Vital Signs Temp Pulse Pulse Resp BP BP Pulse Ox 12/17/23 07:48 36.5 C 69 18 97/65 L 95 12/17/23 03:40 36.5 C 107 H 18 113/78 98 12/17/23 02:02 36.3 C L 111 H 18 103/67 100 12/16/23 22:31 36.4 C L 101 H 20 104/71 94 O2 Del Method O2 Flow Rate 12/17/23 07:48 Nasal Cannula 3 12/17/23 03:40 Nasal Cannula 3 12/17/23 02:02 Nasal Cannula 3 12/16/23 22:31 Nasal Cannula 3
--- NOTE | 2023-12-17 12:39 | Hospitalist Progress Note ---
Date of Service December 17, 2023 Assessment & Plan (1) Left ureteral calculus: Plan Pt is an 88yo female with past medical history significant for chronic hypoxemic respiratory failure on 3 L oxygen, hyperlipidemia, obstructive sleep apnea on oxygen, history of CAD s/p stent, sinus node dysfunction s/p pacemaker, heart failure with reduced ejection fraction, asymptomatic bilateral carotid artery stenosis, hypertension, chronic atrial fibrillation history of RADHA, CKD stage I II, restless leg syndrome, bilateral leg edema, essential thrombocythemia, s/p aortic valve replacement, lumbar spinal stenosis presenting with severe back and left flank pain that started the evening prior to arrival. After discussion with pt's 2 sons and daughter Mely at bedside on 12/17/2023, family was agreeable to Palliative Care consult. Later notified that due to pt's low BP reading of 71/50, Nephrology's attempt for heavy diuresis to improve oliguria could not be given. On further discussion with pt's family, she was transitioned to full comfort measures. Per her living will and wishes dated 2004, antibiotics were discontinued. She was previously treated for the following during her admission course: Left ureteral calculus Renal colic Pt presented with severe back and left flank pain On admission afebrile, tachycardic and WBC elevated >10K UA suggestive of infection, urine Cx was obtained, and is currently growing gram negative rods CT ab/d pelvis concerning for moderate degree left hydronephrosis with 6 mm obstructing calculus in the proximal left ureter Was placed on cautious IV fluid hydration given CHF Hx Was initially started on IV Azactam, then switched to Ertapenem by previous provider based on prior Cx from 08/2023 that grew ESBL sensitive to Ertapenem IV Dilaudid as needed, IV antiemetics as needed Urology was consulted, appreciate recs: -s/p L ureteral stent placement on 12/12/23 -recommending no further procedures while hospitalized/until infection clears Currently on comfort measures Severe sepsis Septic shock On 12/13/23 pt hypotensive with reports of receiving fluid boluses overnight for the same Pt reporting shaking and chills WBC increased to >13K, tachycardic, hypothermic with urinary infectious source, meeting criteria for sepsis. Lactate elevated at 4.6 and blood Cx x2 ordered with NGTD Urine Cx currently growing ESBL E coli once more. Transferred to the ICU on 12/13/21 for pressor support, downgraded on 12/16 Ertapenem was switched to Zosyn to which last Cx in Aug 2023 was sensitive (noted itchy rash allergy, NOT anaphylaxis), switched back based on sensitivities to Ertapenem in the ICU on 12/14 Continue Ertapenem ID consulted- appreciate further recs -continue Ertapenem for 14 days (December 26 final day of treatment) Currently on comfort measures, abx discontinued History of chronic systolic CHF EF of 40 to 45% on echo done in August 2023 Repeat echo on 12/14 noting similar findings except a small to moderate L p leural effusion Pt also with bilateral lower extremity edema On home torsemide 80mg with scheduled potassium Cardiology consulted- appreciate recs -holding home torsemide at this time Noted baseline of 3L of oxygen use, monitor for fluid overload/increase in oxygen requirement Currently on comfort measures History of chronic atrial fibrillation At home, on metoprolol succinate 150mg bid for rate control. That dose has been on hold, currently being reintroduced at lower rate. Also on Coumadin for 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, monitor INR -INR currently elevated above goal from 12/13, holding warfarin at this time -consider Vit K for reversal HR 120-130s, cardiology consulted as above, appreciate recs Currently on comfort measures S/p bioprosthetic aortic valve replacement On coumadin, currently on hold as above INR goal 2-3 INR currently elevated above goal from 12/13, holding warfarin at this time -consider Vit K for reversal Currently on comfort measures Hypertension On metoprolol succinate, Imdur and torsemide at home. 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 Oliguria Presented with creatinine of ~ 2 Currently elevated above baseline Nephrology currently on board- appreciate recs Currently on comfort measures Acute on Chronic Anemia Hgb 11.9 on admission Iron level decreased, consider Venofer replacement Folate, b12 wnl Currently on comfort measures Hyperkalemia K of 5.3 noted, currently trending up Holding home potassium supplements s/p Veltassa doses and lokelma, also received insulin Monitor with AM labs Appreciate Nephrology recs Currently on comfort measures Hyperglycemia DMII Glucose levels have been elevated, as high as 200 hgb1c of 7.0 noted this admission, new DMII diagnosis ISS while hospitalized Currently on comfort measures History of CAD s/p stent On Plavix, statin, metoprolol succinate and Imdur Holding Imdur metoprolol was being re-introduced Currently on comfort measures Obstructive sleep apnea chronic hypoxic respiratory failure On home oxygen 3L 15/05 Currently on comfort measures Sinus node dysfunction status post pacemaker placement Hyperlipidemia On statin previously Currently on comfort measures GERD Continue Pepcid Currently on comfort measures Thrombocythemia On hydroxyurea Follows with heme-onc Currently on comfort measures CODE STATUS: DNR/DNI Dispo: Currently on comfort measures with significant and fast decline on 12/17. Admission and Anticipated Discharge Date Admission Date: December 12, 2023 Subjective pt was seen multiple times during the day. In the AM, discussion with her 2 sons and daughter Mely all at bedside of her current course. Notified by both Cardiology and Nephrology that pt was at terminal end, consider palliative consult. family in agreement. Though previously discussed, son brought in living will and wishes dated 2004. Pt notes in intricate detail her wishes- would not want heroic measures at this point. Per family, would like her made comfort. Pt was resting in bed, tired, took off the NC in her nares at one point stating she did not want it. Review of Systems Review of Systems: Unobtainable due to cognitive status Physical Exam Physical Exam: General: Alert, tired Psych: mood and affect could not be determined Neuro: hearing loss HEENT: NC/AT Chest: Nontender to palpation. CV: Irregular Resp: no increased effort of breathing Abdomen:Soft Extremities: ++ edema in lower extremities bilaterally. Results & Data Results & Data Vital Signs (Past 12 Hours) Vital Signs Temp Pulse Pulse Resp BP Pulse Ox O2 Del Method 12/17/23 11:51 36.5 C 89 16 71/50 L 100 Room Air 12/17/23 11:37 104 H 12/17/23 07:48 36.5 C 69 18 97/65 L 95 Nasal Cannula 12/17/23 03:40 36.5 C 107 H 18 113/78 98 Nasal Cannula 12/17/23 02:02 36.3 C L 111 H 18 103/67 100 Nasal Cannula O2 Flow Rate 12/17/23 11:51 12/17/23 11:37 12/17/23 07:48 3 12/17/23 03:40 3 12/17/23 02:02 3
--- NOTE | 2023-12-17 12:45 | Cardiology Progress Note ---
Date of Service December 17, 2023 Assessment & Plan (1) Atrial fibrillation with RVR: (2) Supratherapeutic INR: (3) Acute kidney injury superimposed on CKD: (4) Hyperkalemia: (5) Sepsis: (6) Replacement of aortic valve: (7) Heart failure with improved ejection fraction (HFimpEF): Plan Heart rate improved with titration of metoprolol (50 mg 3 times daily), however, currently unable to take oral medication. Will transition to IV Lopressor 5 mg every 6 hours. Resume oral meds when able pending swallow evaluation. Repeat ECG reviewed due to hyperkalemia. No peaked T waves. Cannot add digoxin at this time due to ongoing hyperkalemia. Unable to utilize amiodarone due to documented allergy. Agree with additional dose of IV vitamin K. Follow-up PT/INR. Continue to hold warfarin and monitor for any signs/symptoms of GI/ blood loss or anemia. Multiorgan dysfunction and poor prognosis discussed with son at bedside. Findings and plan discussed with hospitalist service for continuity of care. I spent a total of 45 minutes on the date of service in preparation, delivery, and documentation of the care provided to this patient, excluding any time spent in the performance of separately billed services. Admission and Anticipated Discharge Date Admission Date: December 12, 2023 Subjective Patient seen and examined at the bedside. Nursing reports difficulty swallowing medications this a.m. Son present at bedside. Patient less responsive. Son voicing concern regarding prognosis and possible comfort measures. Heart rate improved on telemetry, atrial fibrillation in the 90s. INR continue to trend upward (>9.5). Received 2 doses of IV vitamin K. No signs/symptoms of GI/ blood loss. Hemoglobin stable. Review of Systems Review of Systems: Unobtainable due to cognitive status Physical Exam Constitutional: well nourished and + ill appearing; no acute distress Respiratory: no respiratory distress and no labored breathing Auscultation: no crackles, no rales, no rhonchi and no wheezes Cardiovascular: Rate/Rhythm: + tachycardic and + irregularly irregular Heart Sounds: normal S1 and normal S2; no murmur Vessels: no JVD and no carotid bruit Extremities: no edema Gastrointestinal (Abdomen): Inspection/Auscultation: abdomen normal to inspection; abdomen not distended Percussion/Palpation: abdomen soft; abdomen nontender, no guarding and abdomen not rigid Neurologic: CN's II-XI intact bilaterally and moves all extremities Results & Data Vital Signs (Past 12 Hours) Vital Signs Temp Pulse Pulse Resp BP Pulse Ox O2 Del Method 12/17/23 11:51 36.5 C 89 16 71/50 L 100 Room Air 12/17/23 11:37 104 H 12/17/23 07:48 36.5 C 69 18 97/65 L 95 Nasal Cannula 12/17/23 03:40 36.5 C 107 H 18 113/78 98 Nasal Cannula 12/17/23 02:02 36.3 C L 111 H 18 103/67 100 Nasal Cannula O2 Flow Rate 12/17/23 11:51 12/17/23 11:37 12/17/23 07:48 3 12/17/23 03:40 3 12/17/23 02:02 3 Laboratory Results Cardiac Enzymes 12/16/23 12/17/23 Range/Units 23:12 07:15 AST 56 H 67 H (13-39) U/L Coagulation 12/17/23 Range/Units 06:19 PT > 90.0 H (9.0-12.0) Seconds CBC 12/16/23 12/17/23 Range/Units 23:07 07:15 WBC 10.42 (4.8-10.8) K/ul RBC 3.77 L (4.20-5.40) M/uL Hgb 12.4 12.7 (12.0-16.0) g/dl Hct 41.1 42.9 (37.0-47.0) % Plt Count 172 (130-400) K/uL Neut # (Auto) 8.38 H (1.40-6.50) K/uL Lymph # (Auto) 0.32 L (1.20-3.40) K/uL [place] # (Auto) 1.40 H (0.11-0.59) K/uL Eos # (Auto) 0.09 (0.00-0.50) K/uL Baso # (Auto) 0.05 (0.00-0.20) K/uL Comprehensive Metabolic Panel 12/16/23 12/16/23 12/17/23 Range/Units 16:36 23:12 07:15 Sodium 137 138 139 (136-145) mmol/L Potassium 5.7 H 5.5 H 5.7 H (3.5-5.1) mmol/L Chloride 102 101 102 (98-107) mmol/L Carbon Dioxide 24 26 26 (21-32) mmol/L BUN 85 H 88 H 91 H (6-23) mg/dl Creatinine 3.80 H 4.00 H 4.03 H (0.6-1.2) mg/dl Glucose 126 H 103 H 82 (70-99(Fasting)) mg/dl Calcium 8.8 9.1 9.1 (8.6-10.3) mg/dl Direct Bilirubin 0.5 H (0-0.2) mg/dl AST 56 H 67 H (13-39) U/L ALT 16 18 (7-52) U/L Alkaline Phosphatase 99 106 H (34-104) U/L Total Protein 7.6 7.4 (6.0-8.3) gm/dl Albumin 3.6 3.5 (3.4-5.0) gm/dl Intake and Output 12/16/23 12/17/23 12/17/23 22:59 06:59 14:59 Intake Total 100 / 200 100 / 200 50.25 / 50.25 Output Total 80 / 335 126 / 335 Balance 20 / -135 -26 / -135 50.25 / 50.25 Intake: IV 100 / 100 50.25 / 50.25 Albumin 25% 25 gm In 100 ml @ 100 / 100 50 mls/hr IV ONE ONE Rx#: [id number] Phytonadione 2.5 mg In Dextrose 50.25 / 50.25 5% 50 ml @ 100.5 mls/hr IV ONE ONE Rx#:[id number] Oral 100 / 100 Output: Urine Amount (Catheter) 80 / 333 125 / 333 [place]/Indwelling 80 / 333 125 / 333 # Bowel Movements 1 / 2 Other: Other Intake Source chips Weight 88 kg Weight Measurement Method [facility] () Sepsis Sepsis type: sepsis due to unspecified organism Sepsis acute organ dysfunction status: with acute organ dysfunction Severe sepsis acute organ dysfunction type: acute renal failure Acute renal failure type: unspecified Severe sepsis shock status: unspecified Qualified Code(s): A41.9 - Sepsis, unspecified organism; R65.20 - Severe sepsis without septic shock; N17.9 - Acute kidney failure, unspecified
[2023-12-17] MEDS ORDERED: ONDANSETRON 4 MG OD TAB SL PRN (12:49)
[2023-12-17] MEDS ORDERED: LORazepam 0.5 MG in SYRINGE 0.25 ML IV PRN (12:49)
[2023-12-17] MEDS ORDERED: ONDANSETRON INJ 2 MG/ML 2 ML VIAL IV PRN (12:49)
[2023-12-17] MEDS ORDERED: MoRPHine SULFATE 10 MG/0.5 ML UDP PO PRN (12:49)
[2023-12-17] MEDS: metOLazone 5 MG TABLET PO ONE (12:51)
[2023-12-17] MEDS: FUROSEMIDE 40 MG/4 ML VIAL IV ONE (12:51)
--- NOTE | 2023-12-17 13:48 | Electrocardiogram Report ---
Test Reason : Blood Pressure : / mmHG Vent. Rate : 098 BPM Atrial Rate : 064 BPM P-R Int : 000 ms QRS Dur : 062 ms QT Int : 382 ms P-R-T Axes : 000 052 -52 degrees QTc Int : 487 ms Atrial fibrillation Low voltage QRS Right bundle branch block Prolonged QT Abnormal ECG When compared with ECG of 12-DEC-2023 09:19, Criteria for Anterior infarct are no longer Present Confirmed by Ishmael Hooks ([id number]) on 12/17/2023 1:47:54 PM Referred By: REFERRED SELF Confirmed By:Ishmael Hooks
[2023-12-17] MEDS: MoRPHine SULFATE 2 MG/ML CARP IV PRN (14:52)
[2023-12-17] MEDS: LORazepam 2 MG/1 ML VIAL ONE (14:54)
[2023-12-17] MEDS: LORazepam 0.5 MG TAB PO PRN (14:54)
--- NOTE | 2023-12-17 16:56 | Death Pronouncement Note ---
Date of Service December 17, 2023 Pronouncement Note Admission Date Admission Date: December 12, 2023 Date and Time of Date of : 12/17/23 Time of : 16:48 Contributing Factors (1) Comfort measures only status: (2) Septic shock: (3) Sepsis: (4) Oliguria: (5) ATN (acute tubular necrosis): (6) Acute kidney injury superimposed on CKD: (7) Supratherapeutic INR: (8) Hyperkalemia: (9) Atrial fibrillation with RVR: (10) Left ureteral calculus: Hospital Course Hospital Course: See discharge summary from same date Summary Additional details: See discharge summary from same date Additional Data Confirmation of : no pulse, no respirations, no heart sounds and pupils fixed and dilated Attending physician: Mely Graff MD
--- NOTE | 2023-12-17 16:58 | Discharge Summary ---
Discharge Summary Date of Service December 17, 2023 Notes For Next Care Provider Pt on comfort measures Medication Changes From Visit None Admission HPI Per Admitting Provider 88-year-old female with past medical history significant for chronic hypoxemic respiratory failure on 3 L oxygen, hyperlipidemia, obstructive sleep apnea on oxygen, history of CAD s/p stent, sinus node dysfunction s/p pacemaker, heart failure with reduced ejection fraction, asymptomatic bilateral carotid artery stenosis, hypertension, chronic atrial fibrillation history of RADHA, CKD stage III, restless leg syndrome, bilateral leg edema, essential thrombocythemia, s/p aortic valve replacement, lumbar spinal stenosis who lives at home alone was brought in by son because of severe back and left flank pain started last evening. Patient is hard of hearing. History got from the son. No fevers. No chest pain or shortness of breath. No nausea. No abdominal pain. Normal bowel movements. No headaches. Hemodynamics okay. Ambulates with walker. Past medical history. As mentioned above Past surgical history. Cardiac cath s/p RCA drug-eluting stent. Colonoscopy. Cystoscopy. Dual-chamber MRI compatible pacemaker. Knee arthroscopy.. Ligation oviducts. S/p aortic valve replacement bioprosthetic valve, total abdominal hysterectomy with removal of tubes. Social history. . No smoking. No alcohol use. No drug use. Family history. Father allergies. Prostate cancer. Hypertension. Mother had diabetes. Endometriosis. Sister has heart attack. Stroke. Admission Exam Per Admitting Provider General- Seems in pain Head- atraumatic Eyes- PERRL ENT- oropharynx clear Neck- supple, no JVD. Lungs- clear to auscultation no wheezing or crackles. Heart- regular rhythm; no murmur, no gallop. Abdomen- normal bowel sounds, soft, nontender, no distension. No CVA tenderness. Extremities- Lower extremity edema, no erythema seen Neuro- alert, and awake. hard of hearing PERRL, no facial palsy; no dysarthria; moves extremities. Skin- warm & dry Principal Dx & Hospital Course #1 = Principal Diagnosis (1) Left ureteral calculus: (2) Comfort measures only status: (3) Septic shock: (4) Sepsis: (5) Oliguria: (6) ATN (acute tubular necrosis): (7) Acute kidney injury superimposed on CKD: (8) Supratherapeutic INR: (9) Hyperkalemia: (10) Atrial fibrillation with RVR: Plan Pt is an 88yo female with past medical history significant for chronic hypoxemic respiratory failure on 3 L oxygen, hyperlipidemia, obstructive sleep apnea on oxygen, history of CAD s/p stent, sinus node dysfunction s/p pacemaker, heart failure with reduced ejection fraction, asymptomatic bilateral carotid artery stenosis, hypertension, chronic atrial fibrillation history of RADHA, CKD stage III, restless leg syndrome, bilateral leg edema, essential thrombocythemia, s/p aortic valve replacement, lumbar spinal stenosis presenting with severe back and left flank pain that started the evening prior to arrival. After discussion with pt's 2 sons and daughter Mely at bedside on 12/17/2023, family was agreeable to Palliative Care consult. Later notified that due to pt's low BP reading of 71/50, Nephrology's attempt for heavy diuresis to improve oliguria could not be given. On further discussion with pt's family, she was transitioned to full comfort measures. Per her living will and wishes dated 2004, antibiotics were discontinued. She was previously treated for the following during her admission course: Left ureteral calculus Renal colic Pt presented with severe back and left flank pain On admission afebrile, tachycardic and WBC elevated >10K UA suggestive of infection, urine Cx was obtained, and is currently growing gram negative rods CT ab/d pelvis concerning for moderate degree left hydronephrosis with 6 mm obstructing calculus in the proximal left ureter Was placed on cautious IV fluid hydration given CHF Hx Was initially started on IV Azactam, then switched to Ertapenem by previous provider based on prior Cx from 08/2023 that grew ESBL sensitive to Ertapenem IV Dilaudid as needed, IV antiemetics as needed Urology was consulted, appreciate recs: -s/p L ureteral stent placement on 12/12/23 -recommending no further procedures while hospitalized/until infection clears on comfort measures Severe sepsis Septic shock On 12/13/23 pt hypotensive with reports of receiving fluid boluses overnight for the same Pt reporting shaking and chills WBC increased to >13K, tachycardic, hypothermic with urinary infectious source, meeting criteria for sepsis. Lactate elevated at 4.6 and blood Cx x2 ordered with NGTD Urine Cx currently growing ESBL E coli once more. Transferred to the ICU on 12/13/21 for pressor support, downgraded on 12/16 Ertapenem was switched to Zosyn to which last Cx in Aug 2023 was sensitive (noted itchy rash allergy, NOT anaphylaxis), switched back based on sensitivities to Ertapenem in the ICU on 12/14 Continue Ertapenem ID consulted- appreciate further recs -continue Ertapenem for 14 days (December 26 final day of treatment) on comfort measures, abx discontinued History of chronic systolic CHF EF of 40 to 45% on echo done in August 2023 Repeat echo on 12/14 noting similar findings except a small to moderate L pleural effusion Pt also with bilateral lower extremity edema On home torsemide 80mg with scheduled potassium Cardiology consulted- appreciate recs -holding home torsemide at this time Noted baseline of 3L of oxygen use, monitor for fluid overload/increase in oxygen requirement on comfort measures History of chronic atrial fibrillation At home, on metoprolol succinate 150mg bid for rate control. That dose has been on hold, currently being reintroduced at lower rate. Also on Coumadin for 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, monitor INR -INR currently elevated above goal from 12/13, holding warfarin at this time -consider Vit K for reversal HR 120-130s, cardiology consulted as above, appreciate recs on comfort measures S/p bioprosthetic aortic valve replacement On coumadin, currently on hold as above INR goal 2-3 INR currently elevated above goal from 12/13, holding warfarin at this time -consider Vit K for reversal on comfort measures Hypertension On metoprolol succinate, Imdur and torsemide at home. Currently hypotensive in setting of severe sepsis noted above Cardiology consulted in setting of a fib with rvr, CHF and hypotension currently noted, appreciate recs -home imdur, metoprolol and torsemide discontinued at this time by cardiology Pt transferred to the ICU for BP pressor support on 12/13 Was also on hydrocortisone for possible adrenal component Currently off of pressors and hydrocortisone Significantly hypotensive once more on comfort measures Acute on chronic kidney disease stage 3/4 Oliguria Presented with creatinine of ~ 2 Currently elevated above baseline Nephrology currently on board- appreciate recs on comfort measures Acute on Chronic Anemia Hgb 11.9 on admission Iron level decreased, consider Venofer replacement Folate, b12 wnl on comfort measures Hyperkalemia K of 5.3 noted, currently trending up Holding home potassium supplements s/p Velt[place] doses and lokelma, also received insulin Monitor with AM labs Appreciate Nephrology recs on comfort measures Hyperglycemia DMII Glucose levels have been elevated, as high as 200 hgb1c of 7.0 noted this admission, new DMII diagnosis ISS while hospitalized on comfort measures History of CAD s/p stent On Plavix, statin, metoprolol succinate and Imdur Holding Imdur metoprolol was being re-introduced on comfort measures Obstructive sleep apnea chronic hypoxic respiratory failure On home oxygen 3L 24/7 on comfort measures Sinus node dysfunction status post pacemaker placement Hyperlipidemia On statin previously on comfort measures GERD Continue Pepcid on comfort measures Thrombocythemia On hydroxyurea Follows with heme-onc on comfort measures Discharge Exam General: Alert, tired Psych: mood and affect could not be determined Neuro: hearing loss HEENT: NC/AT Chest: Nontender to palpation. CV: Irregular Resp: no increased effort of breathing Abdomen:Soft Extremities: ++ edema in lower extremities bilaterally. Updated Medication List Medication Instructions Recorded Confirmed Type acidophilus 25 million 2 tab PO DAILY 12/12/23 12/12/23 History cell-pectin, citrus 100 mg tablet buspirone 5 mg tablet 5 mg PO BID 12/12/23 12/12/23 History clopidogrel 75 mg tablet 75 mg PO DAILY 12/12/23 12/12/23 History clotrimazole-betamethasone 1 1 applic topical BID 12/12/23 12/12/23 History %-0.05 % topical cream famotidine 20 mg tablet 20 mg PO DAILY 12/12/23 12/12/23 History hydroxyurea 500 mg capsule 500 mg PO UD 12/12/23 12/12/23 History isosorbide mononitrate 60 mg 60 mg PO DAILY 12/12/23 12/12/23 History tablet,extended release 24 hr lactulose 10 gram/15 mL oral 15 ml PO TID 12/12/23 12/12/23 History solution metoprolol succinate 100 mg 150 mg PO BID 12/12/23 12/12/23 History tablet,extended release 24 hr mometasone 50 mcg/actuation nasal 1 spray intranasal DAILY 12/12/23 12/12/23 History spray potassium chloride 20 mEq 20 meq PO BID 12/12/23 12/12/23 History tablet,extended release(part/cryst) rosuvastatin 20 mg tablet 20 mg PO DAILY 12/12/23 12/12/23 History torsemide 20 mg tablet 80 mg PO DAILY 12/12/23 12/12/23 History warfarin 1 mg tablet 1 mg PO DAILY 12/12/23 12/12/23 History Hospital Stay Data Consultations 12/12/23 04:46 ED Decision to Admit Stat 12/12/23 06:54 Consult Urology Routine 12/13/23 13:05 Consult Infectious Diseases Routine 12/13/23 16:02 Consult Cardiology Routine 12/14/23 19:05 Consult Nephrology Routine 12/14/23 19:14 Consult Nephrology Routine 12/16/23 07:47 Consult Thread Twister Routine 12/17/23 12:29 Consult Palliative Care Routine Procedures Performed Operation Date: 12/12/23 08:00 Actual Procedures p Cystoscopy, Left Ureteral Stent Placement(Left) - Wale Castellano MD Diagnostic Imagining Performed 12/12/23 FL KUB Routine 12/12/23 02:48 CT abd pelvis wo con Stat 12/16/23 23:00 CT Abd and Pelvis [CT abd pelvis wo con] Stat Abdomen Fluoroscopy 12/12/23 00:00 FL KUB CLINICAL HISTORY: LT CYSTO TECHNIQUE: 1 views were obtained with the C-arm in the OR with the above procedure. Total fluoroscopy time was 6 seconds. Comparison: Comparison is made to CT abdomen pelvis 12/12/2023 FINDINGS/IMPRESSION: Intraoperative images were obtained of the cystogram with stent placement. In the final images, the stent is in satisfactory position. Please correlate with intraoperative fluoroscopy and operative report. ACT 112: Negative or not required by law. Electronically signed by: Pablo Garza M.D. 12/12/2023 7:50 PM Abdomen/Pelvis CT 12/12/23 02:48 Exam(s): CT ABDOMEN + PELVIS Without Contrast EXAM: CT Abdomen and Pelvis Without Intravenous Contrast CLINICAL HISTORY: Reason for exam: eval for left sided kidney stone. TECHNIQUE: Axial computed tomography images of the abdomen and pelvis without intravenous contrast. CTDI is 27.14 mGy and DLP is 1291 mGy-cm. Automated exposure control was utilized for the study. A dose lowering technique was utilized adhering to the principles of ALARA. COMPARISON: CT January 29, 2023 FINDINGS: Limitations: Mildly limited by diffuse motion. Pleural space: Small bilateral pleural effusions. ABDOMEN: Liver: Unremarkable. Gallbladder and bile ducts: Small gallstones. No ductal dilation. Pancreas: Unremarkable. No ductal dilation. Spleen: Unremarkable. No splenomegaly. Adrenals: Unremarkable. No mass. Kidneys and ureters: Moderate degree of left hydronephrosis with a 6 mm obstructing calculus in the proximal left ureter. Stomach and bowel: Diverticulosis without diverticulitis. No obstruction. PELVIS: Appendix: No findings to suggest acute appendicitis. Bladder: Unremarkable. No stones. ABDOMEN and PELVIS: Intraperitoneal space: Unremarkable. No free air. No significant fluid collection. Bones/joints: No acute findings. Soft tissues: Unremarkable. Vasculature: Heavy calcification of the aorta and its major branches. No evidence of aneurysm. Lymph nodes: Unremarkable. No enlarged lymph nodes. IMPRESSION: Moderate degree of left hydronephrosis with a 6 mm obstructing calculus in the proximal left ureter. Electronically signed by: Wang Mccollum MD 12/12/23 04:24 AM Chest X-Ray 12/12/23 17:00 XR chest 1V portable CLINICAL HISTORY: Desaturation TECHNIQUE: Single frontal radiograph of the chest was obtained. Comparison: Comparison is made to chest radiograph 09/12/2023 FINDINGS: Lines and tubes are stable. Cardiomegaly is noted. The aortic arch is calcified. The lungs are clear. Small bilateral pleural effusions are seen. IMPRESSION: Faint bibasilar airspace opacities which may represent atelectasis, pneumonia, and/or aspiration. Small bilateral pleural effusions. ACT 112: Negative or not required by law. Electronically signed by: Pablo Garza M.D. 12/12/2023 5:47 PM Abdomen/Pelvis CT 12/16/23 23:00 Exam(s): CT ABDOMEN + PELVIS Without Contrast EXAM: CT Abdomen and Pelvis Without Intravenous Contrast CLINICAL HISTORY: Reason for exam: worsening abd pain, coagulopathy. TECHNIQUE: Axial computed tomography images of the abdomen and pelvis without intravenous contrast. CTDI is 28.1 mGy and DLP is 1420 mGy-cm. Automated exposure control was utilized for the study. A dose lowering technique was utilized adhering to the principles of ALARA. COMPARISON: No relevant prior studies available. FINDINGS: Lung bases: See below. Pleural space: Small bilateral pleural effusions measuring 4 cm with partial bilateral lower lobe atelectasis. There is moderate cardiomegaly. ABDOMEN: Liver: Unremarkable. Gallbladder and bile ducts: Unremarkable. No calcified stones. No ductal dilation. Pancreas: Unremarkable. No ductal dilation. Spleen: Unremarkable. No splenomegaly. Adrenals: Unremarkable. No mass. Kidneys and ureters: There is a double-J ureteral stent extending through the left kidney and bladder in acceptable position. No hydronephrosis is seen. Probable 4 mm calculus adjacent to the stent in the proximal ureter. Stomach and bowel: Bowel loops are nondilated. There is diverticulosis throughout the colon. No clear evidence of focal diverticulitis or focal inflammatory changes involving the bowel, although, subtle inflammation may be obscured by the generalized edema. PELVIS: Appendix: No findings to suggest acute appendicitis. Bladder: The urinary bladder is decompressed by [place] catheter. No stones. Reproductive: Unremarkable as visualized. ABDOMEN and PELVIS: Intraperitoneal space: Unremarkable. No free air. No significant fluid collection. Bones/joints: Mild to moderate multilevel degenerative changes throughout the spine. No acute fracture is seen. No dislocation. Soft tissues: Diffuse anasarca over the torso and small amount of ascites in the abdomen or pelvis. Consider CHF/fluid overload. Vasculature: The abdominal aorta is severely calcified but nondilated. Lymph nodes: Unremarkable. No enlarged lymph nodes. IMPRESSION: 1. Diffuse anasarca over the torso and small amount of ascites in the abdomen or pelvis. Consider CHF/fluid overload. 2. There is a double-J ureteral stent extending through the left kidney and bladder in acceptable position. No hydronephrosis is seen. Probable 4 mm calculus adjacent to the stent in the proximal ureter. 3. Small bilateral pleural effusions measuring 4 cm with partial bilateral lower lobe atelectasis. There is moderate cardiomegaly. 4. Bowel loops are nondilated. There is diverticulosis throughout the colon. No clear evidence of focal diverticulitis or focal inflammatory changes involving the bowel, although, subtle inflammation may be obscured by the generalized edema. Electronically signed by: Andrews Pena MD 12/17/23 01:08 AM Discharge Instructions Given to Patient (Per Discharging Provider) Pt Total Time Total Time Spent Total Time Spent (In Minutes): >30minutes
== END 2023-12-17 17:55 | disposition expired | DRG 659 ==
LOC: ED 01:13 → SUATTDRO 06:20 → EDINP 06:20 → 2S 06:55 → 1E 12-13 17:31 → 4W 12-16 17:17 → 3E 12-17 17:14